=== PATIENT | female | born 1940 | race Caucasian/White ===

== ENCOUNTER 2020-12-08 11:53 | Observation (INO) ==
--- NOTE | 2020-12-08 12:29 | Emergency Department Note ---
Impression & Plan Dizziness, Weakness, FIGUEROA (dyspnea on exertion) ED Provider Note Provider: Rei Jimenes MD DATE OF SERVICE: 12/08/2020 CHIEF COMPLAINT: Dizzy/weak/short of breath HISTORY OF PRESENT ILLNESS: Patient is a 80-year-old female past medical history of atrial fibrillation on Xarelto and diverticulitis with colostomy presenting here today via ambulance from home reporting that over the past 2 to 3 days she has been experiencing some weakness and slight dizziness. Does not feel things are moving or having any pain. Reports she just feels a bit weak and sometimes feels like her vision is a bit blurry. 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 Denies any eye pain or headache. Denies chest pain does report she feels little bit short of breath at times mainly with exertion. Minimal in nature and able to get around her house. Denies significant leg swelling. Denies abdominal pain or nausea or issues with her ostomy. States he has been trying to hydrate well she thought this might be hydration related. States she did talk with her doctor almost a month ago about some sinus congestion was placed on Mucinex and Claritin. In discussion with her seems like inadvertently she was taking loratadine and Claritin twice a day (a prescription as well as the OTC formulation) the past several weeks. Denies sore throat. Denies fever. Denies new numbness or focal weakness. Denies any falls. States she has used her inhaler/nebulizers at home but they have not really changed her breathing issues which again are intermittent. REVIEW OF SYSTEMS: A total of 10 review of systems was obtained and negative except as stated above in the HPI. PAST MEDICAL HISTORY: As noted above MEDICATIONS: Reviewed home medications with the patient SOCIAL HISTORY: Smoker, lives at home PHYSICAL EXAM: GENERAL: alert and oriented in no acute distress on stretcher Head: normocephalic and atraumatic EYES: No injection, discharge or icterus. PERRL, EOMI. NECK: Trachea midline. Supple. ENT: Mucous membranes pink and moist. Pharynx without erythema or exudate. LUNGS: Airway patent. No retractions. Breath sounds clear with good air entry bilaterally. HEART: Regular rate and rhythm. No chest wall tenderness ABDOMEN: Soft and non-tender, without guarding or rebound with a left-sided ostomy. SKIN: Acyanotic, warm, dry, without rashes EXTREMITIES: Without swelling, tenderness or deformity NEUROLOGICAL: No focal deficits. No aphasia. No facial droop or slurred speech. Normal strength and tone in the extremities. Sensation to gross touch normal. Ambulatory here EK bpm first-degree AV block sinus rhythm occasional PVC. No acute ST segm ent elevation or depression noted. QTc 441. CONTINUOUS CARDIAC MONITORING: was ordered and showed a heart rate of 70s to 80s bpm in normal sinus rhythm Patient's laboratory studies and imaging reviewed. Differential includes Infection, dehydration, metabolic abnormality, hypo/hyperglycemia, electrolyte disturbance, anemia, hypoxia, cardiac sources, intracerebral event, toxicologic, neurologic, as well as other pathologies. IMPRESSION/MEDICAL DECISION MAKING: Patient presents with some nonspecific dizziness/weakness. She reports to me that her symptoms do not change with position such as standing or walking. Denies focal numbness or weakness or speech issues. Denies headache. Is on X arelto. Denies any trauma or falls. Denies chest pain reports a little bit of intermittent dyspnea on exertion. Denies leg swelling. Seems to intermittently been taking twice daily Claritin instead of daily Claritin. Unsure if this may contribute small amounts. Denies other infectious symptoms. Has the Covid vaccine per her report. Having no focal neurological deficits at this point. CT the head will be completed to exclude intracranial abnormality with her anticoagulation use. EKG was obtained showing some PVCs but no significant arrhythmia. Has a history of A. fib but no evidence of tachycardia while here. Basic blood work was obtained. No significant abnormalities noted here without an elevated troponin. No evidence of transaminitis or thyroid dysfunction. CT the head per radiology within normal limits and chest x-ray without acute pulmonary findings. Patient still feels a bit off. Urine sample is pending. Discussed with her in any event as she is feeling somewhat off and on anticoagulant possibility of further observation here given her fall risk. Again symptoms could be related to doubling up on the Claritin antihistamine recently but cannot be sure. In shared decision-making she felt more comfortable further observation to try to further delineate the cause as well as monitor for improvement of her symptoms. The hospitalist was contacted DIAGNOSIS: Dizzy, weakness, shortness of breath DISPOSITION: Hospitalist will evaluate Patient was agreeable with this plan. Past Med/Surg History Medical History (Updated 12/08/20 @ 17:51 by Brenda Moses PA-C) A-fib Chronic bronchitis CKD (chronic kidney disease), stage III Colostomy in place COPD (chronic obstructive pulmonary disease) Depression Diverticulitis HLD (hyperlipidemia) HTN (hypertension) Macular degeneration Multiple pulmonary nodules FRANCIS on CPAP Osteoporosis PAF (paroxysmal atrial fibrillation) PVD (peripheral vascular disease) Tobacco dependence due to cigarettes Surgical History (Updated 12/08/20 @ 17:40 by Brenda Moses PA-C) History of cataract extraction with lens replacement History of creation of ostomy History of resection of large bowel History of tonsillectomy History of tubal ligation Family History (Updated 12/08/20 @ 17:41 by Brenda Moses PA-C) Father Pancreatic cancer Mother Stroke Social History (Updated 12/08/20 @ 17:41 by Brenda Moses PA-C) Smoking Status: Light tobacco smoker Tobacco Type: Cigarettes Age Started Using Tobacco: 22; Years Smoked: 60; Cigarettes Per Day: 5; Second Hand Exposure: No; Hx Alcohol Use: No Hx Substance Use: No Preferred Language: Maori Communication Ability: Effective marital status: / Current Living Situation: Alone Feels Safe at Home: Yes Allergies Allergies Allergy/AdvReac Type Severity Reaction Status Date / Time cephalexin [From Keflex] Allergy Mild Verified 12/08/20 14:42 cilostazol [From Pletal] Allergy Mild Verified 12/08/20 14:42 ciprofloxacin [From Cipro] Allergy Mild Verified 12/08/20 14:42 felodipine Allergy Mild Verified 12/08/20 14:42 meloxicam Allergy Mild rash Verified 12/08/20 16:39 sulfamethoxazole Allergy Mild Verified 12/08/20 14:42 [From Bactrim] trimethoprim [From Bactrim] Allergy Mild Verified 12/08/20 14:42 amoxicillin Allergy Unknown Verified 12/08/20 16:39 diltiazem AdvReac Unknown Verified 12/08/20 16:39 Home Meds Home Medications Medication Instructions Recorded Confirmed calcium carbonate-vitamin D3 1 tab PO PM 03/10/19 12/08/20 [Calcium 500 + D] escitalopram oxalate [Lexapro] 10 mg PO QAM 03/10/19 12/08/20 ferrous sulfate 325 mg PO QAM 03/10/19 12/08/20 omega-3 fatty acids-fish oil [Fish 1 cap PO PM 03/10/19 12/08/20 Oil] rivaroxaban [Xarelto] 20 mg PO HS 03/10/19 12/08/20 verapamil 240 mg PO QAM 03/10/19 12/08/20 vit C,Y-Gu-vcetx-lutein-zeaxan 1 tab PO QAM 03/10/19 12/08/20 [PreserVision AREDS-2] propylene glycol 0.6 % eye drops 1 drops OP PM PRN 07/23/19 12/08/20 multivitamin 1 tab PO QAM 07/16/20 12/08/20 ascorbic acid (vitamin C) [Vitamin 500 mg PO DAILY 12/08/20 12/08/20 C] cyclosporine [Restasis] 1 drp OPB BID 12/08/20 12/08/20 flecainide 50 mg PO BID 12/08/20 12/08/20 fluticasone propionate 2 spray INTRANASAL QAM 12/08/20 12/08/20 ipratropium-albuterol [DuoNeb] 3 ml INHALATION Q4H PRN 12/08/20 12/08/20 lisinopril 20 mg PO QAM 12/08/20 12/08/20 loratadine 10 mg PO QAM 12/08/20 12/08/20 umeclidinium-vilanterol [Anoro 1 inh INH QAM 12/08/20 12/08/20 Ellipta] Previous Rx's Medication Instructions Recorded albuterol sulfate 90 mcg/actuation 1 inh INH QID #18 g 07/16/20 aerosol inhaler guaifenesin 600 mg tablet, 600 mg PO BID #60 tab 07/16/20 extended release 12 hr Results & Data (ED) Vital Signs Vital Signs - 24 hr 12/08/20 12:12 12/08/20 12:28 12/08/20 15:17 Temperature 37.5 C Temperature Source Oral Pulse Rate 78 Pulse Rate [Left Finger] 68 Pulse Rhythm Irregular Pulse Rhythm [Left Finger] Regular Pulse Strength Normal Pulse Strength [Left Finger] Normal Respiratory Rate 16 16 Respiratory Effort / Characteristics Non-Labored Spontaneous Non-Labored Spontaneous Respiratory Depth Normal Normal Respiratory Pattern Regular Regular Blood Pressure 186/76 H Blood Pressure [Right Arm] 142/68 H Blood Pressure Mean 112 Blood Pressure Mean [Right Arm] 92 Blood Pressure Position Lying Blood Pressure Position [Right Arm] Lying Pulse Oximetry 94 94 93 Oxygen Delivery Method Room Air Nasal Cannula Room Air Sepsis Recent Fever Within 48 Hours No Sepsis New/Unexplained Change in Mental Status N/A Sepsis Action Taken by Nursing No Action Required Laboratory Data Result diagrams: 12/08/20 12:23 12/08/20 12:23 Lab Results 12/08/20 12/08/20 12/08/20 Range/Units 12:23 12:23 15:15 WBC 9.26 (4.8-10.8) K/uL RBC 4.45 (4.2-5.4) M/uL Hgb 14.8 (12.0-16.0) g/dL Hct 44.3 (37-47) % MCV 99.6 (80-100) fL MCH 33.3 (25-34) pg MCHC 33.4 (32-36) g/dL RDW Std Deviation 50.5 H (36.4-46.3) fL RDW Coeff of [place] 13.8 (11.5-14.5) % Plt Count 269 (130-400) K/uL MPV 9.4 (7.4-10.4) fL Immature Gran % (Auto) 0.8 % Neut % (Auto) 60.7 % Lymph % (Auto) 24.6 % [place] % (Auto) 7.8 % Eos % (Auto) 5.7 % Baso % (Auto) 0.4 % Neut # (Auto) 5.62 (1.4-6.5) K/uL Lymph # (Auto) 2.28 (1.2-3.4) K/uL [place] # (Auto) 0.72 H (0.11-0.59) K/uL Eos # (Auto) 0.53 H (0-0.5) K/uL Baso # (Auto) 0.04 (0-0.2) K/uL Immature Gran # (Auto) 0.07 H (0.00-0.02) K/uL Sodium 140 (136-145) mmol/L Potassium 4.3 (3.5-5.1) mmol/L Chloride 108 H (98-107) mmol/L Carbon Dioxide 25 (21-32) mmol/L Anion Gap 7.0 (3-11) BUN 15 (7-18) mg/dl Creatinine 1.28 H (0.6-1.2) mg/dl Est Cr Clr Drug Dosing 29.7 ml/min Est GFR ( Amer) 46.4 ml/min Est GFR (Non-Af Amer) 40.0 ml/min BUN/Creatinine Ratio 11.7 (10-20) Glucose 101 H (70-99) mg/dl Calcium 8.5 (8.5-10.1) mg/dl Magnesium 2.3 (1.8-2.4) mg/dl Total Bilirubin 0.5 (0.2-1) mg/dl AST 14 L (15-37) U/L ALT 20 (12-78) U/L Alkaline Phosphatase 69 (45-117) U/L Troponin I < 0.015 (0-0.045) ng/ml Total Protein 7.6 (6.4-8.2) gm/dl Albumin 3.5 (3.4-5.0) gm/dl Globulin 4.1 H (2.5-4.0) gm/dl Albumin/Globulin Ratio 0.8 L (0.9-2) TSH 2.120 (0.300-4.500) uIu/ml Urine Color Yellow Urine Appearance Clear (Clear) Urine pH 8.0 H (4.5-7.5) Ur Specific [place] 1.008 (1.000-1.030) Urine Protein Negative (Negative) Urine Glucose (UA) Negative (Negative) Urine Ketones Negative (Negative) Urine Blood Negative (Negative) Urine Nitrite Negative (Negative) Urine Bilirubin Negative (Negative) Urine Urobilinogen Negative (Negative) Ur Leukocyte Esterase Trace H (Negative) Urine WBC (Auto) 1-5 (0-5) /hpf Urine RBC (Auto) 0-4 (0-4) /hpf U Hyaline Cast (Auto) 0 (0-5) /lpf U Epithel Cells (Auto) 5-10 H (0-5) /lpf Urine Bacteria (Auto) Negative (Negative) COVID-19 Eval Order SARS-CoV-2 (PCR) (Negative) 12/08/20 12/08/20 Range/Units 15:15 15:15 WBC (4.8-10.8) K/uL RBC (4.2-5.4) M/uL Hgb (12.0-16.0) g/dL Hct (37-47) % MCV (80-100) fL MCH (25-34) pg MCHC (32-36) g/dL RDW Std Deviation (36.4-46.3) fL RDW Coeff of [place] (11.5-14.5) % Plt Count (130-400) K/uL MPV (7.4-10.4) fL Immature Gran % (Auto) % Neut % (Auto) % Lymph % (Auto) % [place] % (Auto) % Eos % (Auto) % Baso % (Auto) % Neut # (Auto) (1.4-6.5) K/uL Lymph # (Auto) (1.2-3.4) K/uL [place] # (Auto) (0.11-0.59) K/uL Eos # (Auto) (0-0.5) K/uL Baso # (Auto) (0-0.2) K/uL Immature Gran # (Auto) (0.00-0.02) K/uL Sodium (136-145) mmol/L Potassium (3.5-5.1) mmol/L Chloride (98-107) mmol/L Carbon Dioxide (21-32) mmol/L Anion Gap (3-11) BUN (7-18) mg/dl Creatinine (0.6-1.2) mg/dl Est Cr Clr Drug Dosing ml/min Est GFR ( Amer) ml/min Est GFR (Non-Af Amer) ml/min BUN/Creatinine Ratio (10-20) Glucose (70-99) mg/dl Calcium (8.5-10.1) mg/dl Magnesium (1.8-2.4) mg/dl Total Bilirubin (0.2-1) mg/dl AST (15-37) U/L ALT (12-78) U/L Alkaline Phosphatase (45-117) U/L Troponin I (0-0.045) ng/ml Total Protein (6.4-8.2) gm/dl Albumin (3.4-5.0) gm/dl Globulin (2.5-4.0) gm/dl Albumin/Globulin Ratio (0.9-2) TSH (0.300-4.500) uIu/ml Urine Color Urine Appearance (Clear) Urine pH (4.5-7.5) Ur Specific [place] (1.000-1.030) Urine Protein (Negative) Urine Glucose (UA) (Negative) Urine Ketones (Negative) Urine Blood (Negative) Urine Nitrite (Negative) Urine Bilirubin (Negative) Urine Urobilinogen (Negative) Ur Leukocyte Esterase (Negative) Urine WBC (Auto) (0-5) /hpf Urine RBC (Auto) (0-4) /hpf U Hyaline Cast (Auto) (0-5) /lpf U Epithel Cells (Auto) (0-5) /lpf Urine Bacteria (Auto) (Negative) COVID-19 Eval Order Covid19 at [facility] SARS-CoV-2 (PCR) NEGATIVE (Negative) Administered Medications Sodium Chloride (Nss 1000ml) 1,000 mls @ 80 mls/hr IV .[id number] [facility] Stop: 12/09/20 07:14 Last Admin: 12/08/20 19:33 Dose: 80 mls/hr Documented by: [id number] Discontinued Medications Sodium Chloride (Nss 1000ml) 1,000 mls @ 999 mls/hr IV .[id number] [place] Stop: 12/08/20 13:30 Last Admin: 12/08/20 18:57 Dose: Not Given Documented by: [id number] Imaging Data Radiologist's Impression: Chest X-Ray 12/08/20 12:22 XR chest 1V portable CLINICAL HISTORY: weakness COMPARISON STUDY: Chest CT March 30, 2020. FINDINGS: Lung volumes are normal. Minimal left basilar opacity favors epicardial fat pad or atelectasis. There is no pneumothorax or pleural effusion. Cardiac size is normal. Mediastinal contours are normal. There is no evidence for pulmonary edema. IMPRESSION: No acute cardiopulmonary findings. No change in appearance of the chest. ACT 112: Negative or not required by law. Electronically signed by: Oh Townsend M.D. 12/08/2020 1:[address] 12/08/20 12:22 CT head/brain wo con CLINICAL HISTORY: 80 years-old Female with weak , dizzy. Acute weakness with dizziness TECHNIQUE: Multiple axial CT images of the head were obtained without contrast. A dose lowering technique was utilized adhering to the principles of ALARA. CT DOSE: 902.17 mGy.cm COMPARISON: None. FINDINGS: Mildly motion degraded exam. Age-related involutional changes. White matter hypodensities suggestive of chronic microvascular ischemic disease. 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 Cerebral vascular calcifications. No acute intracranial hemorrhage, midline shift, intracranial mass, hydrocephalus, territorial ischemia or abnormal extra-axial collection. The calvarium is intact. Prior bilateral lens repair. The paranasal sinuses, mastoid air cells, and middle ear cavities are clear. IMPRESSION: No acute intracranial abnormality. ACT 112: Negative or not required by law. The above report was generated using voice recognition software. It may contain grammatical, syntax or spelling errors. Electronically signed by: Stephen Rapp M.D. 12/08/2020 1:06 PM Discharge Plan Visit Data Chief Complaint: Dizziness Stated Complaint: LIGHTHEADED, WEAK ED Provider: Rei Jimenes Discharge Problem: Dizziness, Weakness, FIGUEROA (dyspnea on exertion) Patient Disposition: Still a Patient Discharge Instructions Interventions: ED Discharge Assessment Last Done: 12/08/20 17:57
[2020-12-08] MEDS ORDERED: SODIUM CHLORIDE 0.9% 1000ML 1,000 ML IV SCH ×2 (12:30→18:45)
[2020-12-08 12:35] LABS: Basophils # (auto) 0.04 K/uL (0-0.2); Basophils % (auto) 0.4 %; Eosinophils # (auto) 0.53 K/uL (0-0.5); Eosinophils % (auto) 5.7 %; Hematocrit (blood only) 44.3 % (37-47); Hemoglobin 14.8 g/dL (12.0-16.0); Immature Granulocytes # (auto) 0.07 K/uL (0.00-0.02); Immature Granulocytes % (auto) 0.8 %; Lymphocytes # (auto) 2.28 K/uL (1.2-3.4); Lymphocytes % (auto) 24.6 %; Mean Corpuscular Hemoglobin 33.3 pg (25-34); Mean Corpuscular Hgb Conc 33.4 g/dL (32-36); Mean Corpuscular Volume 99.6 fL (80-100); Mean Platelet Volume 9.4 fL (7.4-10.4); Monocytes # (auto) 0.72 K/uL (0.11-0.59); Monocytes % (auto) 7.8 %; Neutrophils # (auto) 5.62 K/uL (1.4-6.5); Neutrophils % (auto) 60.7 %; Platelet Count 269 K/uL (130-400); RDW Coefficient of Variation 13.8 % (11.5-14.5); RDW Standard Deviation 50.5 fL (36.4-46.3); Red Blood Count 4.45 M/uL (4.2-5.4); White Blood Count 9.26 K/uL (4.8-10.8)
--- NOTE | 2020-12-08 13:07 | CT Scan Report ---
CT head/brain wo con CLINICAL HISTORY: 80 years-old Female with weak , dizzy. Acute weakness with dizziness TECHNIQUE: Multiple axial CT images of the head were obtained without contrast. A dose lowering tech nique was utilized adhering to the principles of ALARA. CT DOSE: 902.17 mGy.cm COMPARISON: None. FINDINGS: Mildly motion degraded exam. Age-related involutional changes. White matter hypodensities suggestive of chronic microvascular ischemic disease. 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 Ce rebral vascular calcifications. No acute intracranial hemorrhage, midline shift, intracranial mass, h ydrocephalus, territorial ischemia or abnormal extra-axial collection. The calvarium is intact. Prior bilateral lens repair. The paranasal sinuses, mastoid air cells, and m iddle ear cavities are clear. IMPRESSION: No acute intracranial abnormality. ACT 112: Negative or not required by law. The above report was generated using voice recognition software. It may contain grammatical, syntax o r spelling errors. Electronically signed by: Stephen Rapp M.D. 12/08/2020 1:06 PM
[2020-12-08 13:10] LABS: Alanine Aminotransferase 20 U/L (12-78); Albumin Level 3.5 gm/dl (3.4-5.0); Aspartate Aminotransferase 14 U/L (15-37); BUN Creatinine Ratio 11.7 (10-20); Blood Urea Nitrogen 15 mg/dl (7-18); Calcium 8.5 mg/dl (8.5-10.1); Carbon Dioxide 25 mmol/L (21-32); Chloride 108 mmol/L (98-107); Creatinine Clr Calc Pharmacy 29.7 ml/min; Est GFR (African American) 46.4 ml/min; Glucose 101 mg/dl (70-99); Magnesium 2.3 mg/dl (1.8-2.4); Potassium 4.3 mmol/L (3.5-5.1); Sodium 140 mmol/L (136-145)
[2020-12-08 13:20] LABS: Albumin Globulin Ratio 0.8 (0.9-2); Alkaline Phosphatase 69 U/L (45-117); Bilirubin,Total 0.5 mg/dl (0.2-1); Globulin 4.1 gm/dl (2.5-4.0); Total Protein 7.6 gm/dl (6.4-8.2); Troponin I < 0.015 ng/ml (0-0.045)
--- NOTE | 2020-12-08 13:23 | XRay Report ---
XR chest 1V portable CLINICAL HISTORY: weakness COMPARISON STUDY: Chest CT March 30, 2020. FINDINGS: Lung volumes are normal. Minimal left basilar opacity favors epicardial fat pad or atelecta sis. There is no pneumothorax or pleural effusion. Cardiac size is normal. Mediastinal contours are n ormal. There is no evidence for pulmonary edema. IMPRESSION: No acute cardiopulmonary findings. No change in appearance of the chest. ACT 112: Negative or not required by law. Electronically signed by: Oh Townsend M.D. 12/08/2020 1:22 PM
[2020-12-08 15:43] LABS: Appearance Urine Clear (Clear); Bacteria Urine Automated Negative (Negative); Bilirubin Urine Negative (Negative); Blood Urine Negative (Negative); Cast Urine Automated 0 /lpf (0-5); Color Urine Yellow; Glucose Urine UA Negative (Negative); Ketones Urine Negative (Negative); Leukocyte Esterase Urine Trace (Negative); Nitrite Urine Negative (Negative); Protein Urine Negative (Negative); RBC Urine Automated 0-4 /hpf (0-4); Specific Gravity Urine 1.008 (1.000-1.030); Urobilinogen Urine Negative (Negative)
--- NOTE | 2020-12-08 16:48 | History & Physical Report ---
Date of Service December 08, 2020 Assessment & Plan (1) Vestibular neuritis: (2) Dizziness: This is a 80-year-old female who has significant past medical history of PAF anticoagulated on Xarelto, COPD, HTN, HLD, FRANCIS on CPAP, CKD stage IIIb, macular degeneration, tobacco abuse, depression, history of large bowel resection status post colostomy who presents to ED secondary to feeling lightheaded x3 days. Pt sx consistent with BPPV. Sx worse with quick head movement or position change. No inner ear pathology on exam, no recent illness, no hearing change or tinnitus. Sx ongoing for few weeks but worse last 2-[address] head no acute abn, chronic microvascular changes. Admit to [employer] monitor on telemetry orthostatic vitals IVF 80cc/hr x 1 L meclizine prn consult PT/OT / to BPPV fall precautions (3) PAF (paroxysmal atrial fibrillation): rate controlled continue xarelto for thrombotic control based on creatinine clearance will renally dose xarelto to 15mg daily per EPIC pt is ordered 15mg daily; however pt bottle from pharmacy confirms she is still taking 20mg daily will likely need new script at discharge given ckd stage 3 (4) FRANCIS on CPAP: CPAP at HS (5) HTN (hypertension): blood pressure elevated 167/76 on lisinopril and verapamil continue, monitor bp may be situational in ED follow on floor (6) COPD (chronic obstructive pulmonary disease): no acute exac pt does have chronic FIGUEROA and sputum production at baseline continue anoro, nebs flutter valve (7) Tobacco dependence due to cigarettes: nicotine patch encourage smoking cessation (8) DVT prophylaxis: xarelto Dispo: [employer] tele PCP: Sergio Cai FULL CODE Pt was seen and examined in collaboration with Dr. Menendez, please see addendum History of Present Illness Chief Complaint: lightheadedness x 3 days. Primary Care Provider: Tameka Cai MD This is a 80-year-old female who has significant past medical history of PAF anticoagulated on Xarelto, COPD, HTN, HLD, FRANCIS on CPAP, CKD stage IIIb, macular degeneration, tobacco abuse, depression, history of large bowel resection status post colostomy who presents to ED secondary to feeling lightheaded x3 days. She states this has been going on for approximately 2 to 3 weeks and she would have, "off and on days." She states, "I am having too many on days and that is why came today." She describes lightheadedness as feeling, off balance, "like I am swimming," and motion sickness. Symptoms are worse with quick head movements or going from seated to standing position. She has had similar symptoms in the past but this has been exacerbated over the past 2 to 3 days. She does have prior history of vertigo and this feels similar. She denies feeling presyncopal or syncope. She further denies any fall. She denies any recent illness, fever, chills, sweats, chest pain, shortness breath at rest, nausea, vomiting, abdomina l pain. She does have a colostomy in place and stool output is at baseline. She denies any dysuria, increased urgency or frequency with urination. She does have chronic dyspnea exertion secondary to COPD and she continues to smoke tobacco. She feels this is unchanged. She also has a chronic cough that is moist, productive and clear. She does occasionally get wheezing for which she uses DuoNeb inhalers for. She is only requiring this once nightly. She does not feel her cough is more productive than usual. Overall she feels her appetite has been good. She has been trying to push liquids, but her children tell her she does not drink enough. She states she drinks approximately 3-12 ounce cups of water a day. In ED patient remained hemodynamically stable. Her CBC and CMP relatively unremarkable except for creatinine 1.28. Her TSH was WNL. Her troponin was WNL. Urinalysis was negative for infection. Head CT was negative for acute abnormality but did reveal chronic microvascular ischemic change as well as old lacunar in the left lentiform nucleus. She denies any limb weakness, dysarthria, dysphagia or facial droop. In ED she received IV fluids. Allergies Allergy/AdvReac Type Severity Reaction Status Date / Time cephalexin [From Keflex] Allergy Mild Verified 12/08/20 14:42 cilostazol [From Pletal] Allergy Mild Verified 12/08/20 14:42 ciprofloxacin [From Cipro] Allergy Mild Verified 12/08/20 14:42 felodipine Allergy Mild Verified 12/08/20 14:42 meloxicam Allergy Mild rash Verified 12/08/20 16:39 sulfamethoxazole Allergy Mild Verified 12/08/20 14:42 [From Bactrim] trimethoprim [From Bactrim] Allergy Mild Verified 12/08/20 14:42 amoxicillin Allergy Unknown Verified 12/08/20 16:39 diltiazem AdvReac Unknown Verified 12/08/20 16:39 Home Medications Medication Instructions Recorded Confirmed Type calcium carbonate-vitamin D3 1 tab PO PM 03/10/19 12/08/20 History [Calcium 500 + D] escitalopram oxalate [Lexapro] 10 mg PO QAM 03/10/19 12/08/20 History ferrous sulfate 325 mg PO QAM 03/10/19 12/08/20 History omega-3 fatty acids-fish oil [Fish 1 cap PO PM 03/10/19 12/08/20 History Oil] rivaroxaban [Xarelto] 20 mg PO HS 03/10/19 12/08/20 History verapamil 240 mg PO QAM 03/10/19 12/08/20 History vit C,S-Df-tnifg-lutein-zeaxan 1 tab PO QAM 03/10/19 12/08/20 History [PreserVision AREDS-2] propylene glycol 0.6 % eye drops 1 drops OP PM PRN 07/23/19 12/08/20 History albuterol sulfate 90 mcg/actuation 1 inh INH QID #18 g 07/16/20 12/08/20 Rx aerosol inhaler guaifenesin 600 mg tablet, 600 mg PO BID #60 tab 07/16/20 12/08/20 Rx extended release 12 hr multivitamin 1 tab PO QAM 07/16/20 12/08/20 History ascorbic acid (vitamin C) [Vitamin 500 mg PO DAILY 12/08/20 12/08/20 History C] cyclosporine [Restasis] 1 drp OPB BID 12/08/20 12/08/20 History flecainide 50 mg PO BID 12/08/20 12/08/20 History fluticasone propionate 2 spray INTRANASAL QAM 12/08/20 12/08/20 History ipratropium-albuterol [DuoNeb] 3 ml INHALATION Q4H PRN 12/08/20 12/08/20 History lisinopril 20 mg PO QAM 12/08/20 12/08/20 History loratadine 10 mg PO QAM 12/08/20 12/08/20 History umeclidinium-vilanterol [Anoro 1 inh INH QAM 12/08/20 12/08/20 History Ellipta] Past Med/Surg History Medical History (Updated 12/08/20 @ 23:16 by Delmy Menendez DO) A-fib Chronic bronchitis CKD (chronic kidney disease), stage III Colostomy in place COPD (chronic obstructive pulmonary disease) Depression Diverticulitis HLD (hyperlipidemia) HTN (hypertension) Macular degeneration Multiple pulmonary nodules FRANCIS on CPAP Osteoporosis PAF (paroxysmal atrial fibrillation) PVD (peripheral vascular disease) Tobacco dependence due to cigarettes Surgical History (Updated 12/08/20 @ 17:40 by Brenda Moses PA-C) History of cataract extraction with lens replacement History of creation of ostomy History of resection of large bowel History of tonsillectomy History of tubal ligation Family History (Updated 12/08/20 @ 17:41 by Brenda Moses PA-C) Father Pancreatic cancer Mother Stroke Social History (Updated 12/08/20 @ 17:41 by Brenda Moses PA-C) Smoking Status: Current every day smoker Tobacco Type: Cigarettes Age Started Using Tobacco: 22; Years Smoked: 60; Cigarettes Per Day: 6; Second Hand Exposure: No; Do You Dip or Chew Tobacco: No; Tobacco Cessation Education Requested by Patient: No Hx Alcohol Use: No Hx Substance Use: No Preferred Language: Rw[place]an Communication Ability: Effective Beliefs That Will Affect Care: None marital status: / Current Living Situation: Alone Feels Safe at Home: Yes Assistive Devices: Glasses Review of Systems Review of Systems: All systems reviewed & are unremarkable except as noted in HPI & below Physical Exam Physical Exam: Constitutional: WD/WN, female, sitting in bedside chair, vitals as above, NAD, sitting up in bed, pleasant, conversing easily Head: Normocephalic, Atraumatic Eyes: PERRL, conjunctivae normal, anicteric sclerae ENMT: external ear and nose normal, EAC clean dry, TM anatomically normal, oropharynx normal Neck: trachea midline, no thyromegaly normal visual inspection Respiratory: normal respiratory effort, lungs clear to auscultation, + rhonchi b/l and prolonged exp phase with wheeze which cleared with coughing, no rales. Normal insp/exp effort, no accessory muscle use Cardiovascular: RRR, +ectopy, no murmur, no edema Vessels: no JVD or carotid bruit Chest: normal inspection of chest Abdomen: normal bowel sounds, soft, nontender, no hepatosplenomegaly +LLQ Colostomy in place Musculoskeletal: no cyanosis or clubbing, extremities motor strength 5/5 Skin: no rashes, warm and dry normal turgor Neurologic: PERRL, EOMI, accommodation nl, no face palsy, no dysarthria CN's II-XI intact bilaterally and moves all extremities Psychiatric: A+Ox3, euthymic affect Lymphatic: no cervical or axillary lymphadenopathy : deferred Results & Data Results & Data ([facility]) Vital Signs (Past 12 Hours) Vital Signs Temp Pulse Pulse Resp BP BP Pulse Ox 12/08/20 15:17 68 16 142/68 H 93 12/08/20 12:28 94 12/08/20 12:12 37.5 C 78 16 186/76 H 94 Diagnostic Findings Chest X-Ray 12/08/20 12:22 XR chest 1V portable CLINICAL HISTORY: weakness COMPARISON STUDY: Chest CT March 30, 2020. FINDINGS: Lung volumes are normal. Minimal left basilar opacity favors epicardial fat pad or atelectasis. There is no pneumothorax or pleural effusion. Cardiac size is normal. Mediastinal contours are normal. There is no evidence for pulmonary edema. IMPRESSION: No acute cardiopulmonary findings. No change in appearance of the chest. ACT 112: Negative or not required by law. Electronically signed by: Oh Townsend M.D. 12/08/2020 1:[address] 12/08/20 12:22 CT head/brain wo con CLINICAL HISTORY: 80 years-old Female with weak , dizzy. Acute weakness with dizziness TECHNIQUE: Multiple axial CT images of the head were obtained without contrast. A dose lowering technique was utilized adhering to the principles of ALARA. CT DOSE: 902.17 mGy.cm COMPARISON: None. FINDINGS: Mildly motion degraded exam. Age-related involutional changes. White matter hypodensities suggestive of chronic microvascular ischemic disease. 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 Cerebral vascular calcifications. No acute intracranial hemorrhage, midline shift, intracranial mass, hydrocephalus, territorial ischemia or abnormal extra-axial collection. The calvarium is intact. Prior bilateral lens repair. The paranasal sinuses, mastoid air cells, and middle ear cavities are clear. IMPRESSION: No acute intracranial abnormality. ACT 112: Negative or not required by law. The above report was generated using voice recognition software. It may contain grammatical, syntax or spelling errors. Electronically signed by: Stephen Rapp M.D. 12/08/2020 1:06 PM ECG Rate (beats per minute): 77 Rhythm: normal sinus Findings: + 1st degree AV block and + PVC Change: no significant change COVID-19 Results Results COVID-19 Adm Lab Results: RBC 4.45 M/uL (4.2-5.4) 12/08/20 WBC 9.26 K/uL (4.8-10.8) 12/08/20 Hgb 14.8 g/dL (12.0-16.0) 12/08/20 Hct 44.3 % (37-47) 12/08/20 Plt Count 269 K/uL (130-400) 12/08/20 Neutrophils (%) (Auto) 60.7 % 12/08/20 Lymphocytes (%) (Auto) 24.6 % 12/08/20 Monocytes # (Auto) 0.72 K/uL (0.11-0.59) H 12/08/20 Eosinophils # (Auto) 0.53 K/uL (0-0.5) H 12/08/20 Immature Granulocyte % (Auto) 0.8 % 12/08/20 Neutrophils # (Auto) 5.62 K/uL (1.4-6.5) 12/08/20 Lymphocytes # (Auto) 2.28 K/uL (1.2-3.4) 12/08/20 Monocytes # (Auto) 0.72 K/uL (0.11-0.59) H 12/08/20 Eosinophils # (Auto) 0.53 K/uL (0-0.5) H 12/08/20 Basophils # (Auto) 0.04 K/uL (0-0.2) 12/08/20 Immature Granulocyte # (Auto) 0.07 K/uL (0.00-0.02) H 12/08/20 Na 140 mmol/L (136-145) 12/08/20 K 4.3 mmol/L (3.5-5.1) 12/08/20 Cl 108 mmol/L (98-107) H 12/08/20 CO2 25 mmol/L (21-32) 12/08/20 Anion Gap 7.0 (3-11) 12/08/20 BUN 15 mg/dl (7-18) 12/08/20 Creatinine 1.28 mg/dl (0.6-1.2) H 12/08/20 BUN/Creatinine Ratio 11.7 (10-20) 12/08/20 Glucose Level 101 mg/dl (70-99) H 12/08/20 Ca 8.5 mg/dl (8.5-10.1) 12/08/20 Total Bilirubin 0.5 mg/dl (0.2-1) 12/08/20 AST/SGOT 14 U/L (15-37) L 12/08/20 ALT/SGPT 20 U/L (12-78) 12/08/20 Alkaline Phosphatase 69 U/L (45-117) 12/08/20 Total Protein 7.6 gm/dl (6.4-8.2) 12/08/20 Albumin 3.5 gm/dl (3.4-5.0) 12/08/20 Globulin 4.1 gm/dl (2.5-4.0) H 12/08/20 Albumin/Globulin Ratio 0.8 (0.9-2) L 12/08/20 Troponin I < 0.015 ng/ml (0-0.045) 12/08/20 COVID-19 PCR NEGATIVE (Negative) 12/08/20 Chest X-Ray 12/08/20 Code Status & VTE Plan Code Status Full Code VTE Prophylaxis Plan VTE Prophylaxis will be ordered: No Supervising Physician Co-Signing Physician Notes I have seen and examined the patient and have discussed the case with the provider above. I agree with the assessment and plan as stated with the following exceptions. She is a 80 yo smoker who presents with worsened vertigo symptoms for the past 3 weeks. Prior to that she had an URI/sinus infection of some kind and was treated by her PCP wt azithromycin and claritin. She continues to take Claritin BID, which is a new medication. She also takes flonase. She denies any hearing loss and has no stroke like symptoms or headaches at this time. She has a reported h/o BPPV. She also denies any SOB, productive sputum, wheezing, or worsening of her chronic cough. Physical exam reveals an oriented female who is cooperative with no gross focal neurologic deficit. EOMI, PERRL, OP is clear and mucous membranes are moist. Tympanic membranes are pearly and there are no middle ear effusions or auditory canal issues bilaterally. She has no sinus TTP and no submandibular or cervical LAD. Cardiopulmonary exam is WNL. Patient became dizzy with sitting up in bed. No nystagmus was observed. CT head was negative. She currently has no evidence of acute infection. Clinically this appears consistent with a vestibular neuritis picture and a trial of prednisone may be helpful. Neurology was consulted to weigh in on the need for MRI and other causes of her vertigo. Orthostatics checeked and pending. Cont IVF overnight and stay hydrated. PT/OT prior to leaving to ensure she is safe to return home. DO Shon
[2020-12-08] MEDS ORDERED: ALUMINUM/MAGNESIUM SUSP 30 ML UDC PO PRN (18:45)
[2020-12-08] MEDS ORDERED: ALBUT/IPRATROP 3MG/0.5MG NEB 3 ML VIAL INH PRN (18:45)
[2020-12-08] MEDS ORDERED: ONDANSETRON INJ 2 MG/ML 2 ML VIAL IV PRN (18:45)
[2020-12-08] MEDS ORDERED: MAGNESIUM HYDROXIDE SUSP 30 ML UDC PO PRN (18:45)
[2020-12-08] MEDS ORDERED: ACETAMINOPHEN 325 MG TAB PO PRN (18:45)
[2020-12-08] MEDS ORDERED: POLYETHYLENE (MIRALAX) 17 GM PACK PO PRN (18:45)
[2020-12-08] MEDS ORDERED: ARTIFICIAL TEARS OP PRN (19:33)
[2020-12-08] MEDS ORDERED: RIVAROXABAN 15 MG TAB PO ONE (20:30)
[2020-12-08] MEDS: ALBUTEROL HFA 8 GM INHALER INH SCH (20:57)
[2020-12-08] MEDS: CALCIUM 600MG + VIT D 400 IU TAB PO SCH (20:58)
[2020-12-08] MEDS: OMEGA-3 (PURIFIED FISH OIL) 1 GM CAP PO SCH (20:58)
[2020-12-08] MEDS: guaiFENesin 600 MG TABCR PO SCH (20:59)
[2020-12-08] MEDS: FLECAINIDE ACETATE 100 MG TABLET PO SCH (20:59)
[2020-12-08] MEDS: RESTASIS - ORDER AWAITING ACTION SCH (23:17)
--- NOTE | 2020-12-09 06:24 | Electrocardiogram Report ---
Test Reason : Blood Pressure : / mmHG Vent. Rate : 077 BPM Atrial Rate : 077 BPM P-R Int : 252 ms QRS Dur : 076 ms QT Int : 390 ms P-R-T Axes : 083 -25 070 degrees QTc Int : 441 ms Sinus rhythm with 1st degree A-V block with frequent Premature ventricular complexes Possible Inferior infarct No previous ECGs available Confirmed by Kristian Pierce ([id number]) on 12/09/2020 6:24:35 AM Referred By: REFERRED SELF Confirmed By:Kristian Pierce
[2020-12-09] MEDS: FERROUS SULFATE 325 MG TAB PO SCH (07:41)
[2020-12-09] MEDS: ASCORBIC ACID 500 MG TAB PO SCH (07:41)
[2020-12-09] MEDS: ESCITALOPRAM OXALATE 10 MG TAB PO SCH (07:41)
[2020-12-09] MEDS: FLECAINIDE ACETATE 100 MG TABLET PO SCH ×2 (07:41→21:09)
[2020-12-09] MEDS: FLUTICASONE PROPIONATE NA SPR 16 GM BTL NAE SCH (07:42)
[2020-12-09] MEDS: guaiFENesin 600 MG TABCR PO SCH ×2 (07:42→21:07)
[2020-12-09] MEDS: LORATADINE 10 MG TAB PO SCH (07:42)
[2020-12-09] MEDS: CEROVITE ADV FORMULA TAB PO SCH (07:42)
[2020-12-09] MEDS: lisinopril 20 MG TAB PO SCH (07:42)
[2020-12-09] MEDS: UMECLIDINIUM/VILANTEROL 62.5/25MCG 7 PUFFS/INHALER INH SCH (07:43)
[2020-12-09] MEDS: VERAPAMIL HCL 240 MG TABCR PO SCH (07:43)
[2020-12-09] MEDS: NICOTINE 21 MG/24 HR TDSY TD SCH (07:44)
[2020-12-09] MEDS: MECLIZINE HCL 25 MG TAB PO PRN ×2 (07:44→12:12)
[2020-12-09] MEDS: ALBUTEROL HFA 8 GM INHALER INH SCH ×4 (07:49→20:04)
[2020-12-09] MEDS: RESTASIS - ORDER AWAITING ACTION SCH ×2 (08:01→16:40)
[2020-12-09] MEDS: predniSONE 10 MG TABLET PO SCH (08:47)
[2020-12-09] MEDS ORDERED: predniSONE 20 MG TAB PO SCH (09:00)
[2020-12-09] MEDS ORDERED: MULTIVITAMIN TAB PO SCH (09:00)
[2020-12-09] MEDS ORDERED: MECLIZINE HCL 25 MG TAB PO PRN (11:56)
--- NOTE | 2020-12-09 13:54 | Neurology Consultation ---
Date of Consultation December 09, 2020 Assessment & Plan (1) PAF (paroxysmal atrial fibrillation): 1. continue Eliquis 20 mg HS 2. smoking cessation strongly recommended 3. optimize HTN, HLD, LDL <70 Present on Admission?: Yes (2) Dizziness: 1. PT for Mckenzie maneuver may need PT as outpatient if not resolved 2. MRI brain- without contrast r/o stroke- no contract due to kidney function 3. if no stroke no follow up with neurology needed. Present on Admission?: Yes Supervising Physician Co-Signing Physician Notes I have seen and discussed above patient with Dr Juan Daniel Castro, neurology I have interviewed and examined Mrs. Beaulieu at this point have difficulty establishing whether or not this is partial benign positional vertigo, more of a chronic vertigo or to some degree nonvertigo but more of a disequilibrium as a syndrome has emerged over the past 3 weeks and has changed in quality and the history is a little difficult to interpret While her exam is completely normal in terms of revealing no cranial neuropathies nystagmus significant ataxia or indeed any gait disturbance of significance she does have some vascular risk factors to say the least and may have had a small embolic shower could have even involve the right hemisphere with vague symptomatology at the onset of all of this She really has not responded that much to Mckenzie maneuver like she did years ago when her symptoms were more typical At this point I think we are going to recommend an MRI without contrast in light of her mild renal failure and if there is no evidence for recent embolic infarctions and I think the question of whether this was a vascular event can be answered in the negative and we can go ahead with more vestibular therapy perhaps [id number] low-dose meclizine and perhaps an ear nose and throat assessment on outpatient basis If there is evidence for multiple emboli then we will have to wrestle with either changing to another NOAC, trying Coumadin, or adding aspirin to the medics and cardiology will have to get involved We will review the results of the scan and if negative will really sign off the case Unfortunately outpatient ear nose and throat evaluations for this type of syndrome are often not done locally and she would have to go to the balance center in [place] which is something she really does not want to do Perhaps we could recommend outpatient physical therapy at [facility] who does offer in addition to Mckenzie maneuvers a vestibular therapy program recommendation for exercises etc. Juan Daniel Castro MD History of Present Illness Reason for Consultation: Worened vertigo Requesting Physician: Skip Horat MD Attending Physician: Skip Horta MD History of Present Illness Eliazar is a 80 year old female with a PMH- PAF anticoagulated on Xarelto, COPD, HTN, HLD, FRANCIS on CPAP, CKD stage IIIb, macular degeneration, tobacco abuse, depr ession, history of large bowel resection status post colostomy who presents to [facility] 12/09/2020 with feeling lightheaded x3 days. She states this has been going on for approximately 2 to 3 weeks and she would have, "off and on days." She states, "I am having too many on days and that is why came today." She describes lightheadedness as feeling, off balance, "like I am swimming," and motion sickness. Symptoms are worse with quick head movements or going from seated to standing position. She has had similar symptoms in the past but this has been exacerbated over the past 2 to 3 days. She does have prior history of vertigo and this feels similar. She does have a colostomy in place and stool output is at baseline. She has a chronic dyspnea exertion secondary to COPD and she continues to smoke tobacco. She also has a chronic cough that is moist, productive and clear. She does occasionally get wheezing for which she uses DuoNeb inhalers once per night. PT has seen her and did the Mckenzie maneuver which she thinks has helped. In the past when she had vertigo they did the maneuvers and they "fixed her marbles" denies CP, SOB, abdominal pain, N, V, vision changes, swallowing issues, +dizzy feeling with head movement Allergies Allergy/AdvReac Type Severity Reaction Status Date / Time cephalexin [From Keflex] Allergy Mild Verified 12/08/20 14:42 cilostazol [From Pletal] Allergy Mild Verified 12/08/20 14:42 ciprofloxacin [From Cipro] Allergy Mild Verified 12/08/20 14:42 felodipine Allergy Mild Verified 12/08/20 14:42 meloxicam Allergy Mild rash Verified 12/08/20 16:39 sulfamethoxazole Allergy Mild Verified 12/08/20 14:42 [From Bactrim] trimethoprim [From Bactrim] Allergy Mild Verified 12/08/20 14:42 amoxicillin Allergy Unknown Verified 12/08/20 16:39 diltiazem AdvReac Unknown Verified 12/08/20 16:39 Home Medications Medication Instructions Recorded Confirmed Type calcium carbonate-vitamin D3 1 tab PO PM 03/10/19 12/08/20 History [Calcium 500 + D] escitalopram oxalate [Lexapro] 10 mg PO QAM 03/10/19 12/08/20 History ferrous sulfate 325 mg PO QAM 03/10/19 12/08/20 History omega-3 fatty acids-fish oil [Fish 1 cap PO PM 03/10/19 12/08/20 History Oil] rivaroxaban [Xarelto] 20 mg PO HS 03/10/19 12/08/20 History verapamil 240 mg PO QAM 03/10/19 12/08/20 History vit C,K-At-foroq-lutein-zeaxan 1 tab PO QAM 03/10/19 12/08/20 History [PreserVision AREDS-2] propylene glycol 0.6 % eye drops 1 drops OP PM PRN 07/23/19 12/08/20 History albuterol sulfate 90 mcg/actuation 1 inh INH QID #18 g 07/16/20 12/08/20 Rx aerosol inhaler guaifenesin 600 mg tablet, 600 mg PO BID #60 tab 07/16/20 12/08/20 Rx extended release 12 hr multivitamin 1 tab PO QAM 07/16/20 12/08/20 History ascorbic acid (vitamin C) [Vitamin 500 mg PO DAILY 12/08/20 12/08/20 History C] cyclosporine [Restasis] 1 drp OPB BID 12/08/20 12/08/20 History flecainide 50 mg PO BID 12/08/20 12/08/20 History fluticasone propionate 2 spray INTRANASAL QAM 12/08/20 12/08/20 History ipratropium-albuterol [DuoNeb] 3 ml INHALATION Q4H PRN 12/08/20 12/08/20 History lisinopril 20 mg PO QAM 12/08/20 12/08/20 History loratadine 10 mg PO QAM 12/08/20 12/08/20 History umeclidinium-vilanterol [Anoro 1 inh INH QAM 12/08/20 12/08/20 History Ellipta] Patient History Medical History (Updated 12/08/20 @ 23:16 by Delmy Menendez DO) A-fib Chronic bronchitis CKD (chronic kidney disease), stage III Colostomy in place COPD (chronic obstructive pulmonary disease) Depression Diverticulitis HLD (hyperlipidemia) HTN (hypertension) Macular degeneration Multiple pulmonary nodules FRANCIS on CPAP Osteoporosis PAF (paroxysmal atrial fibrillation) PVD (peripheral vascular disease) Tobacco dependence due to cigarettes Surgical History (Updated 12/08/20 @ 17:40 by Brenda Moses PA-C) History of cataract extraction with lens replacement History of creation of ostomy History of resection of large bowel History of tonsillectomy History of tubal ligation Family History (Updated 12/08/20 @ 17:41 by Brenda Moses PA-C) Father Pancreatic cancer Mother Stroke Social History (Updated 12/08/20 @ 17:41 by Brenda Moses PA-C) Smoking Status: Current every day smoker Tobacco Type: Cigarettes Age Started Using Tobacco: 22; Years Smoked: 60; Cigarettes Per Day: 6; Second Hand Exposure: No; Do You Dip or Chew Tobacco: No; Tobacco Cessation Education Requested by Patient: No Hx Alcohol Use: No Hx Substance Use: No Preferred Language: Somali Communication Ability: Effective Beliefs That Will Affect Care: None marital status: / Current Living Situation: Alone Feels Safe at Home: Yes Assistive Devices: Glasses and Oxygen - Continuous Review of Systems Review of Systems: All systems reviewed & are unremarkable except as noted in HPI & below Physical Exam Physical Exam: Physical Exam: Constitutional: appearance over nourished, healthy Ears, Nose, Mouth and Throat: mucous membranes moist, no injection and skin normal, eyes normal Cardiovascular: normal S-1 and S-2 Respiratory: course breath sound distant, wearing O2 nasal cannula/2L Musculoskeletal: no peripheral edema Skin: no stigmata of neurocutaneous disease noted and normal and intact Eyes: extraocular muscles intact (EOMI) and pupils equal, round and reactive to light (PERRL) NEUROLOGIC EXAMINATION: Mental status: Alert and interactive Oriented to person Speech fluent with no evidence of aphasia Cranial Nerves smile eye brow raise symmetric Reflexes: Deep tendon reflexes were symmetrical and decreased LE Sensory: light cool intact Coordination: finger to nose no bipass rapid hand movements intact Gait/Stance: Posture normal. Gait normal: with steady with steps, base, turning, tandem gait. Motor: Negative for pronator drift of out stretched arms with eyes closed. 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 hip flex 5/5 bilaterally Results & Data ([facility]) Vital Signs (Past 12 Hours) Vital Signs Temp Pulse Pulse Pulse Resp BP Pulse Ox 12/09/20 12:21 37.3 C 66 19 134/69 92 12/09/20 10:50 69 18 93 12/09/20 07:55 36.8 C 66 19 139/77 86 L 12/09/20 07:49 68 18 91 12/09/20 07:05 63 20 90 12/09/20 06:20 56 L 12/09/20 05:27 37.2 C 61 18 127/68 92 12/09/20 05:03 67 21 91 12/09/20 05:02 76 20 91 12/09/20 02:11 64 Laboratory Results Abnormal lab results 12/08/20 Range/Units 15:15 Urine pH 8.0 H (4.5-7.5) Ur Leukocyte Esterase Trace H (Negative) U Epithel Cells (Auto) 5-10 H (0-5) /lpf Diagnostic Findings cT head-Mildly motion degraded exam. Age-related involutional changes. White matter hypodensities suggestive of chronic microvascular ischemic disease. 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 Cerebral vascular calcifications. No acute intracranial hemorrhage, midline shift, intracranial mass, hydrocephalus, territorial ischemia or abnormal extra-axial collection. The calvarium is intact. Prior bilateral lens repair. The paranasal sinuses, mastoid air cells, and middle ear cavities are clear.
--- NOTE | 2020-12-09 15:18 | Hospitalist Progress Note ---
Date of Service December 09, 2020 Assessment & Plan (1) Vestibular neuritis: (2) Dizziness: Patient is a 80 yr female with H/O PAF anticoagulated on Xarelto, COPD, HTN, HLD, FRANCIS on CPAP, CKD stage IIIb, macular degeneration, tobacco abuse, depression, history of large bowel resection status post colostomy who presents to ED secondary to feeling lightheaded x3 days. Dizziness DD: BPPV/Vestibular Neuritis CT Head:No acute intracranial abnormality. Negative orthostatic vitals Started on prednisone taper Antivert as needed Neurology consulted for input Fall precautions Continue PT (3) PAF (paroxysmal atrial fibrillation): Rate controlled continue xarelto for anticoagulation (Renally Adjusted) Continue verapamil, flecainide Needs new prescription for Xarelto upon discharge (4) FRANCIS on CPAP: CPAP at HS (5) HTN (hypertension): Blood pressure stable Continue lisinopril, verapamil Monitor (6) COPD (chronic obstructive pulmonary disease): No signs of exacerbation Continue home inhalers Pulmonary hygiene (7) Tobacco dependence due to cigarettes: nicotine patch encourage smoking cessation (8) DVT prophylaxis: xarelto CODE STATUS Full code Disposition Expected discharge home when medically stable Admission and Anticipated Discharge Date Admission Date: December 08, 2020 Subjective Patient is seen and examined at bedside States having chronic cough which she attributes to COPD Persistent dizziness Had PT evaluation earlier today Orthostatics negative Denies chest pain, nausea, vomiting, abdominal pain Offers no other complaints Review of Systems Review of Systems: All systems reviewed & are unremarkable except as noted in HPI & below Physical Exam Physical Exam: Physical Exam: Vitals signs as noted above General Appearance:Moderately built and nourished, no apparent distress Head: normocephalic, Atraumatic Eyes: normal inspection, EOMI Neck: supple, Trachea midline Respiratory/Chest: Decreased breath sounds, CTA Cardiovascular: S1, S2, No murmur Abdomen/GI:Soft, Non tender, Bowel sounds present, +Colostomy Extremities/Musculoskeletal:normal inspection, no edema Neurologic/Psych:AAOX3, grossly no focal neurological deficits Skin: normal color, warm Results & Data Results & Data ([facility]) Vital Signs (Past 12 Hours) Vital Signs Temp Pulse Pulse Pulse Resp BP Pulse Ox 12/09/20 14:57 37.1 C 69 18 149/68 H 90 12/09/20 12:21 37.3 C 66 19 134/69 92 12/09/20 10:50 69 18 93 12/09/20 07:55 36.8 C 66 19 139/77 86 L 12/09/20 07:49 68 18 91 12/09/20 07:05 63 20 90 12/09/20 06:20 56 L 12/09/20 05:27 37.2 C 61 18 127/68 92 12/09/20 05:03 67 21 91 12/09/20 05:02 76 20 91 Laboratory Results Urine 12/08/20 Range/Units 15:15 Urine Color Yellow Urine Appearance Clear (Clear) Urine pH 8.0 H (4.5-7.5) Ur Specific [place] 1.008 (1.000-1.030) Urine Protein Negative (Negative) Urine Glucose (UA) Negative (Negative)
[2020-12-09] MEDS ORDERED: LORazepam 0.5 MG/1 ML VIAL IV SCH (16:42)
[2020-12-09] MEDS ORDERED: RIVAROXABAN 15 MG TAB PO SCH ×2 (17:00)
--- NOTE | 2020-12-09 21:06 | Magnetic Resonance Report ---
MR brain wo con HISTORY: 80 years-old Female vertigo r/o stroke acute vertigo with dizziness COMPARISON: Head CT 12/08/2020 TECHNIQUE: Multiplanar multisequence MRI of the brain was obtained without the use of IV contrast. FINDINGS: No restricted diffusion. No acute intracranial hemorrhage, midline shift, abnormal extra-axial collec tion, hydrocephalus or intracranial mass. No pathologic blooming artifact. Age-related involutional c hanges. Mild scattered T2/FLAIR hyperintensities are suggestive of chronic microvascular ischemic dis ease. Cerebral venous sinuses and major arterial flow voids are patent. Mastoid air cells are clear. Mild mucosal thickening with small air-fluid level of the right maxillary sinus suggestive of acute s inusitis. Prior bilateral lens repair. Mild mucosal thickening of the ethmoid air cells and frontal s inuses. The skull and soft tissues are unremarkable. IMPRESSION: No acute intracranial abnormality, specifically there is no evidence of acute or subacute infarct. ACT 112: Negative or not required by law. The above report was generated using voice recognition software. It may contain grammatical, syntax o r spelling errors. Electronically signed by: Stephen Rapp M.D. 12/09/2020 9:04 PM
[2020-12-09] MEDS: CALCIUM 600MG + VIT D 400 IU TAB PO SCH (21:08)
[2020-12-09] MEDS: OMEGA-3 (PURIFIED FISH OIL) 1 GM CAP PO SCH (21:08)
[2020-12-10] MEDS: RESTASIS - ORDER AWAITING ACTION SCH ×2 (00:05→07:42)
[2020-12-10] MEDS: ALBUTEROL HFA 8 GM INHALER INH SCH ×2 (07:10→10:53)
[2020-12-10 07:23] LABS: Hematocrit (blood only) 39.6 % (37-47); Hemoglobin 13.2 g/dL (12.0-16.0); Mean Corpuscular Hemoglobin 33.1 pg (25-34); Mean Corpuscular Hgb Conc 33.3 g/dL (32-36); Mean Corpuscular Volume 99.2 fL (80-100); Mean Platelet Volume 8.9 fL (7.4-10.4); Platelet Count 234 K/uL (130-400); RDW Coefficient of Variation 13.3 % (11.5-14.5); RDW Standard Deviation 48.3 fL (36.4-46.3); Red Blood Count 3.99 M/uL (4.2-5.4); White Blood Count 13.24 K/uL (4.8-10.8)
[2020-12-10] MEDS ORDERED: COUGH DROP (SUGAR FREE) LOZ 24 LOZ/1 BOX BUCCAL ONE (07:34)
[2020-12-10] MEDS: ASCORBIC ACID 500 MG TAB PO SCH (07:38)
[2020-12-10] MEDS: FLUTICASONE PROPIONATE NA SPR 16 GM BTL NAE SCH (07:39)
[2020-12-10] MEDS: FERROUS SULFATE 325 MG TAB PO SCH (07:39)
[2020-12-10] MEDS: ESCITALOPRAM OXALATE 10 MG TAB PO SCH (07:39)
[2020-12-10] MEDS: MECLIZINE HCL 25 MG TAB PO PRN (07:39)
[2020-12-10] MEDS: LORATADINE 10 MG TAB PO SCH (07:40)
[2020-12-10] MEDS: guaiFENesin 600 MG TABCR PO SCH (07:40)
[2020-12-10] MEDS: lisinopril 20 MG TAB PO SCH (07:40)
[2020-12-10] MEDS: NICOTINE 21 MG/24 HR TDSY TD SCH (07:40)
[2020-12-10] MEDS: CEROVITE ADV FORMULA TAB PO SCH (07:40)
[2020-12-10] MEDS: VERAPAMIL HCL 240 MG TABCR PO SCH (07:41)
[2020-12-10] MEDS: predniSONE 10 MG TABLET PO SCH (07:41)
[2020-12-10] MEDS: UMECLIDINIUM/VILANTEROL 62.5/25MCG 7 PUFFS/INHALER INH SCH (07:41)
[2020-12-10] MEDS: FLECAINIDE ACETATE 100 MG TABLET PO SCH (07:43)
[2020-12-10 07:59] LABS: BUN Creatinine Ratio 17.3 (10-20); Calcium 8.8 mg/dl (8.5-10.1); Creatinine Clr Calc Pharmacy 29.3 ml/min; Est GFR (African American) 45.9 ml/min; Est GFR (Non-African American) 39.6 ml/min; Magnesium 2.5 mg/dl (1.8-2.4); Potassium 4.5 mmol/L (3.5-5.1)
--- NOTE | 2020-12-10 09:10 | Communication Note ---
Date of Service: December 10, 2020 MRI has been reviewed with Dr Castro. There is no acute findings and no further work up needed from neurology MRI brain- No acute intracranial abnormality, specifically there is no evidence of acute or subacute infarct. follow up with neurology on an as needed basis. This has been communicated to primary service and patient can be discharged once medically stable. needs follow up with ENT, or Deborah if needed for vestibular exercises, and PCP neurology does not handle vertigo on and outpatient basis Lor [facility] neurology
--- NOTE | 2020-12-10 12:51 | Hospitalist Progress Note ---
Date of Service December 10, 2020 Assessment & Plan (1) Vestibular neuritis: (2) Dizziness: Patient is a 80 yr female with H/O PAF anticoagulated on Xarelto, COPD, HTN, HLD, FRANCIS on CPAP, CKD stage IIIb, macular degeneration, tobacco abuse, depression, history of large bowel resection status post colostomy who presents to ED secondary to feeling lightheaded x3 days. Dizziness DD: BPPV/Vestibular Neuritis CT Head:No acute intracranial abnormality. MRI Brain:No acute intracranial abnormality, specifically there is no evidence of acute or subacute infarct. Negative orthostatic vitals Continue prednisone taper course Antivert as needed Appreciate neurology input Fall precautions Continue PT/OT May need ENT evaluation as outpatient if symptoms persist despite prednisone course Improved (3) PAF (paroxysmal atrial fibrillation): Rate controlled continue xarelto for anticoagulation (Renally Adjusted) Continue verapamil, flecainide Needs new prescription for Xarelto upon discharge (4) FRANCIS on CPAP: CPAP at HS (5) HTN (hypertension): Blood pressure stable Continue lisinopril, verapamil Monitor (6) COPD (chronic obstructive pulmonary disease): Chronic respiratory failure with hypoxia Uses supplemental oxygen via nasal cannula as needed at baseline No signs of exacerbation Continue home inhalers Pulmonary hygiene (7) Tobacco dependence due to cigarettes: nicotine patch encourage smoking cessation (8) DVT prophylaxis: xarelto CODE STATUS Full code Disposition Home Admission and Anticipated Discharge Date Admission Date: December 08, 2020 Subjective Patient is seen and examined at bedside Doing much better today Dizziness improved Ambulated in hallways earlier today No new complaints Discussed with neurology today Eager to get discharged Denies chest pain, nausea, vomiting, abdominal pain Review of Systems Review of Systems: All systems reviewed & are unremarkable except as noted in HPI & below Physical Exam Physical Exam: Physical Exam: Vitals signs as noted above General Appearance:Moderately built and nourished, no apparent distress Head: normocephalic, Atraumatic Eyes: normal inspection, EOMI Neck: supple, Trachea midline Respiratory/Chest: Decreased breath sounds, CTA Cardiovascular: S1, S2, No murmur Abdomen/GI:Soft, Non tender, Bowel sounds present, +Colostomy Extremities/Musculoskeletal:normal inspection, no edema Neurologic/Psych:AAOX3, grossly no focal neurological deficits Skin: normal color, warm Results & Data Results & Data ([facility]) Vital Signs (Past 12 Hours) Vital Signs Temp Pulse Pulse Pulse Resp BP Pulse Ox 12/10/20 11:10 36.8 C 54 L 18 117/68 91 12/10/20 10:53 78 20 94 12/10/20 08:00 36.8 C 57 L 18 138/72 93 12/10/20 07:01 58 L 12/10/20 03:00 36.6 C 48 L 18 125/64 94 12/10/20 02:21 65 Laboratory Results Short CBC 12/10/20 Range/Units 07:01 WBC 13.24 H (4.8-10.8) K/uL Hgb 13.2 (12.0-16.0) g/dL Hct 39.6 (37-47) % Plt Count 234 (130-400) K/uL BMP 12/10/20 07:01 Sodium 144 Potassium 4.5 Chloride 113 H Carbon Dioxide 27 BUN 22 H Creatinine 1.29 H Glucose 92 Calcium 8.8
--- NOTE | 2020-12-10 13:06 | Discharge Summary ---
Date of Service December 10, 2020 Admission HPI Per Admitting Provider This is a 80-year-old female who has significant past medical history of PAF anticoagulated on Xarelto, COPD, HTN, HLD, FRANCIS on CPAP, CKD stage IIIb, macular degeneration, tobacco abuse, depression, history of large bowel resection status post colostomy who presents to ED secondary to feeling lightheaded x3 days. She states this has been going on for approximately 2 to 3 weeks and she would have, "off and on days." She states, "I am having too many on days and that is why came today." She describes lightheadedness as feeling, off balance, "like I am swimming," and motion sickness. Symptoms are worse with quick head movements or going from seated to standing position. She has had similar symptoms in the past but this has been exacerbated over the past 2 to 3 days. She does have prior history of vertigo and this feels similar. She denies feeling presyncopal or syncope. She further denies any fall. She denies any recent illness, fever, chills, sweats, chest pain, shortness breath at rest, nausea, vomiting, abdominal pain. She does have a colostomy in place and stool output is at baseline. She denies any dysuria, increased urgency or frequency with urination. She does have chronic dyspnea exertion secondary to COPD and she continues to smoke tobacco. She feels this is unchanged. She also has a chronic cough that is moist, productive and clear. She does occasionally get wheezing for which she uses DuoNeb inhalers for. She is only requiring this once nightly. She does not feel her cough is more productive than usual. Overall she feels her appetite has been good. She has been trying to push liquids, but her children tell her she does not drink enough. She states she drinks approximately 3-12 ounce cups of water a day. In ED patient remained hemodynamically stable. Her CBC and CMP relatively unremarkable except for creatinine 1.28. Her TSH was WNL. Her troponin was WNL. Urinalysis was negative for infection. Head CT was negative for acute abnormality but did reveal chronic microvascular ischemic change as well as old lacunar in the left lentiform nucleus. She denies any limb weakness, dysarthria, dysphagia or facial droop. In ED she received IV fluids. Admission Exam Per Admitting Provider Physical Exam Physical Exam: Constitutional: WD/WN, female, sitting in bedside chair, vitals as above, NAD, sitting up in bed, pleasant, conversing easily Head: Normocephalic, Atraumatic Eyes: PERRL, conjunctivae normal, anicteric sclerae ENMT: external ear and nose normal, EAC clean dry, TM anatomically normal, oropharynx normal Neck: trachea midline, no thyromegaly normal visual inspection Respiratory: normal respiratory effort, lungs clear to auscultation, + rhonchi b/l and prolonged exp phase with wheeze which cleared with coughing, no rales. Normal insp/exp effort, no accessory muscle use Cardiovascular: RRR, +ectopy, no murmur, no edema Vessels: no JVD or carotid bruit Chest: normal inspection of chest Abdomen: normal bowel sounds, soft, nontender, no hepatosplenomegaly +LLQ Colostomy in place Musculoskeletal: no cyanosis or clubbing, extremities motor strength 5/5 Skin: no rashes, warm and dry normal turgor Neurologic: PERRL, EOMI, accommodation nl, no face palsy, no dysarthria CN's II-XI intact bilaterally and moves all extremities Psychiatric: A+Ox3, euthymic affect Lymphatic: no cervical or axillary lymphadenopathy : deferred Principal Diagnosis Vestibular Neuritis Discharge Data Allergies Allergy/AdvReac Type Severity Reaction Status Date / Time cephalexin [From Keflex] Allergy Mild Verified 12/08/20 14:42 cilostazol [From Pletal] Allergy Mild Verified 12/08/20 14:42 ciprofloxacin [From Cipro] Allergy Mild Verified 12/08/20 14:42 felodipine Allergy Mild Verified 12/08/20 14:42 meloxicam Allergy Mild rash Verified 12/08/20 16:39 sulfamethoxazole Allergy Mild Verified 12/08/20 14:42 [From Bactrim] trimethoprim [From Bactrim] Allergy Mild Verified 12/08/20 14:42 amoxicillin Allergy Unknown Verified 12/08/20 16:39 diltiazem AdvReac Unknown Verified 12/08/20 16:39 Consultations 12/08/20 15:40 ED Decision to Admit Stat 12/08/20 22:43 Consult Neurology Routine Procedures Performed CT Head:No acute intracranial abnormality. MRI Brain:No acute intracranial abnormality, specifically there is no evidence of acute or subacute infarct. Ordered Studies 12/08/20 12:22 CT head/brain wo con Stat 12/09/20 15:27 MR brain wo con Routine Hospital Course (1) Vestibular neuritis: (2) Dizziness: Patient is a 80 yr female with H/O PAF anticoagulated on Xarelto, COPD, HTN, HLD, FRANCIS on CPAP, CKD stage IIIb, macular degeneration, tobacco abuse, depression, history of large bowel resection status post colostomy who presents to ED secondary to feeling lightheaded x3 days. Dizziness DD: BPPV/Vestibular Neuritis CT Head:No acute intracranial abnormality. MRI Brain:No acute intracranial abnormality, specifically there is no evidence of acute or subacute infarct. Negative orthostatic vitals Continue prednisone taper course Antivert as needed Appreciate neurology input Fall precautions Continue PT/OT May need ENT evaluation as outpatient if symptoms persist despite prednisone course Improved (3) PAF (paroxysmal atrial fibrillation): Rate controlled continue xarelto for anticoagulation (Renally Adjusted) Continue verapamil, flecainide Needs new prescription for Xarelto upon discharge (4) FRANCIS on CPAP: CPAP at (5) HTN (hypertension): Blood pressure stable Continue lisinopril, verapamil Monitor (6) COPD (chronic obstructive pulmonary disease): Chronic respiratory failure with hypoxia Uses supplemental oxygen via nasal cannula as needed at baseline No signs of exacerbation Continue home inhalers Pulmonary hygiene (7) Tobacco dependence due to cigarettes: nicotine patch encourage smoking cessation (8) DVT prophylaxis: xarelto CODE STATUS Full code Disposition Home Total Time Total Time Spent Total Time Spent (In Minutes): 36 minutes Total Time Includes: Examination of the Patient, Discharge Planning, Medication Reconciliation, Communication With Other Providers and Other Discharge Plan Discharge Items Patient Disposition: Home - Self-Care Reason For Visit: WEAKNESS,DIZZINESS Discharge Diagnosis: Dizziness Activity: Per Instructions section Exercise/Sports: Wait until after follow-up appointment Non-emergency contact: Primary Care Provider Call non-emergency contact if: you have any medication questions, your symptoms worsen, your pain is not controlled, your pain is concerning for you and you have a fever Follow-up/Referrals: Tameka Hooper MD [Primary Care Provider] - (Date & Time 12/16/2020 11:20 AM Provider Sameer Mckinnon MD Department Family Medicine [facility] ) Diet: Heart Healthy Addtl Attending Provider Instructions: Follow-up with your primary care physician Dr. Tameka Cai on 12/16/2020 at 11:20 AM Follow-up with your ENT surgeon if you have persistence of dizziness despite completing the prednisone course. Your Xarelto dose is adjusted based on your renal function (Take 15mg daily). Further recommendations as per your primary care physician. Complete the prednisone taper course as prescribed Prednisone Course Start taking Prednisone 60mg daily for 4 more days and then taper down by 10mg daily until finished. 12/11/20 TO 12/14/20: Take 60mg once daily 12/15/20:Take 50MG once daily 12/16/20:Take 40MG once daily 12/17/20:Take 30MG once daily 12/18/20:Take 20MG once daily 12/19/20:Take 10MG once daily STOP Seek immediate medical attention if your symptoms reoccur or worsen Please take all medications as instructed on discharge list below. Please call if you have any questions or problems. You can reach a [facility] hospitalist on duty at [facility] 24 hours a day by calling [phone] Pending Studies at Discharge: No Stand-Alone Forms: My [facility], Smoking Cessation Medications and DC Order Prescriptions: New Xarelto 15 mg Tablet 15 mg PO DAILY Qty: 30 RF: 1 meclizine 12.5 mg tablet 12.5 mg PO TID PRN (Reason: dizziness) Qty: 30 RF: 0 prednisone 10 mg tablet 10 mg PO UD Qty: 39 RF: 0 Continued Systane Balance 0.6 % drops 1 drops OP PM PRN (Reason: Eye Irritation) RF: 0 multivitamin [Daily Multi-Vitamin] Tablet 1 tab PO QAM RF: 0 albuterol sulfate [ProAir HFA] 90 mcg/actuation HFA aerosol inhaler 1 inh INH QID Qty: 18 RF: 3 guaifenesin [Mucinex] 600 mg tablet extended release 12hr 600 mg PO BID Qty: 60 RF: 3 ferrous sulfate 325 mg (65 mg iron) tablet 325 mg PO QAM RF: 0 verapamil 240 mg Tablet Extended Release 240 mg PO QAM RF: 0 escitalopram oxalate [Lexapro] 10 mg Tablet 10 mg PO QAM RF: 0 Fish Oil 300-500 mg Capsule 1 cap PO PM RF: 0 calcium carbonate-vitamin D3 [Calcium 500 + D] 500 mg(1,250mg) -400 unit Tablet 1 tab PO PM RF: 0 PreserVision AREDS-2 [id number] vi-biuo-si-mg Capsule 1 tab PO QAM RF: 0 lisinopril 20 mg tablet 20 mg PO QAM RF: 0 fluticasone propionate 50 mcg/actuation spray,suspension 2 spray INTRANASAL QAM RF: 0 Restasis 0.05 % dropperette 1 drp OPB BID RF: 0 Anoro Ellipta 62.5-25 mcg/actuation blister with device 1 inh INH QAM RF: 0 loratadine 10 mg Tablet 10 mg PO QAM RF: 0 ipratropium-albuterol 0.5 mg-3 mg(2.5 mg base)/3 mL Solution For Nebulization 3 ml INHALATION Q4H PRN (Reason: sob/wheezing) RF: 0 ascorbic acid (vitamin C) [Vitamin C] 500 mg Tablet 500 mg PO DAILY RF: 0 flecainide 50 mg tablet 50 mg PO BID RF: 0 Discontinued Xarelto 20 mg tablet 20 mg PO HS RF: 0 Discharge Orders: Discharge Order (Routine); Ordered 12/10/20 Ordered By: Skip Horta Admission Data Admit Date/Time: 12/08/20 16:06 Attending Provider: Skip Horta Admit Provider: Delmy Menendez Primary Care Provider: Tameka Hooper Other Providers: Delmy Menendez ; Juan Daniel Castro Other Interventions: Discharge Summary Assessment (RN) Last Done: 12/10/20 13:59
--- NOTE | 2020-12-11 05:51 | Electrocardiogram Report ---
Test Reason : Blood Pressure : / mmHG Vent. Rate : 059 BPM Atrial Rate : 059 BPM P-R Int : 288 ms QRS Dur : 076 ms QT Int : 444 ms P-R-T Axes : 050 -06 075 degrees QTc Int : 439 ms Sinus bradycardia with 1st degree A-V block Septal infarct , age undetermined Possible Inferior infarct Nonspecific T wave abnormality Abnormal ECG When compared with ECG of 08-DEC-2020 12:07, Premature ventricular complexes are no longer Present Septal infarct is now Present Confirmed by Kristian Pierce ([id number]) on 12/11/2020 5:51:45 AM Referred By: REFERRED SELF Confirmed By:Kristian Pierce
--- NOTE | 2020-12-12 07:06 | Electrocardiogram Report ---
Test Reason : Blood Pressure : / mmHG Vent. Rate : 064 BPM Atrial Rate : 064 BPM P-R Int : 294 ms QRS Dur : 078 ms QT Int : 412 ms P-R-T Axes : 065 000 079 degrees QTc Int : 425 ms Sinus rhythm with 1st degree A-V block with occasional Premature ventricular complexes Nonspecific T wave abnormality Abnormal ECG When compared with ECG of 09-DEC-2020 06:25, Premature ventricular complexes are now Present Criteria for Septal infarct are no longer Present Confirmed by Kristian Pierce ([id number]) on 12/12/2020 7:05:32 AM Referred By: REFERRED SELF Confirmed By:Kristian Pierce
--- NOTE | 2020-12-21 11:21 | Coding Query ---
A supporting diagnosis is required for the test/procedure performed on this patient in order for us to be reimbursed by the patient's insurance. Please provide a supporting diagnosis for the following test/procedure listed below next to the test name along with your signature. *If there is no additional diagnosis for this patient that would support the following test/procedure please document that below next to the test/procedure. Test(s)/Procedure(s) that require a supporting diagnosis: * 50152 CANALITH REPOSITIONING PROC DIAGNOSIS: Vertigo, possible BPPV Canalith repositioning was performed as BPPV was in the differential diagnosis. sms DATE OF SERVICE: 12/09/20 Delmy Menendez DO. 01-07-21 Thank you [facility] Information Management Once completed, please kindly fax back to [phone] For questions please call [phone] [facility] [facility]OSPITALJesusita
== END 2020-12-10 16:14 | disposition home or self-care (01) ==
LOC: 2N 11:53 → ED 11:53 → SUATTDRO 16:06 → 2N 17:57

== ENCOUNTER 2023-07-25 13:43 | Inpatient (IN) ==
--- NOTE | 2023-07-25 14:00 | ED Triage Note ---
Date of Service July 25, 2023 Provider in Triage Author: Mitch Rogers. History of Present Illness This patient was briefly evaluated while in triage. An abbreviated physical exam was performed. This patient is a 83-year-old Female who presents to the ED for evaluation of lightheadedness that is constant and worse when she stands up. Been present for several months but worsened over the weekend. Has had an increase in thirst. Recent UTI. More tired than normal. Physical Exam CONSTITUTIONAL: in no acute pain or distress, resting comfortably SKIN: pink, warm, dry CARDIAC: regular rate and rhythm RESPIRATORY: lung auscultation makes the patient feel lightheaded. Lungs otherwise clear. Initial orders for labs and / or imaging were placed and patient was placed in the waiting area until a bed is available. Please see further documentation for the full ED course.
[2023-07-25 14:47] LABS: Hematocrit (blood only) 23.5 % (37.0-47.0); Hemoglobin 6.9 g/dl (12.0-16.0); Mean Corpuscular Hemoglobin 29.7 pg (25.0-34.0); Mean Corpuscular Hgb Conc 29.4 g/dL (32.0-36.0); Mean Corpuscular Volume 101.3 fL (80.0-100.0); Mean Platelet Volume 8.7 fL (9.4-12.4); Platelet Count 309 K/uL (130-400); RDW Coefficient of Variation 15.1 % (11.5-14.5); RDW Standard Deviation 55.5 fL (36.4-46.3); Red Blood Count 2.32 M/uL (4.20-5.40); White Blood Count 9.53 K/ul (4.8-10.8)
[2023-07-25 14:51] LABS: Albumin Level 3.4 gm/dl (3.4-5.0); Bilirubin,Total 0.2 mg/dl (0.2-1.0); Calcium 7.3 mg/dl (8.6-10.3); Potassium 5.2 mmol/L (3.5-5.1)
[2023-07-25 14:57] LABS: Albumin Globulin Ratio 1.1 (0.9-2); Globulin 3.2 gm/dl (2.5-4.0); Total Protein 6.6 gm/dl (6.0-8.3)
[2023-07-25] MEDS ORDERED: PANTOprazole 40 MG in SYRINGE 0 ML IV ONE (14:57)
[2023-07-25] MEDS ORDERED: FAMOTIDINE 20MG IV PUSH 20 MG/5 ML SYR IV STA (14:57)
[2023-07-25 14:59] LABS: Basophils # (auto) 0.03 K/uL (0.00-0.20); Basophils % (auto) 0.3 %; Eosinophils # (auto) 0.21 K/uL (0.00-0.50); Eosinophils % (auto) 2.2 %; Immature Granulocytes # (auto) 0.13 K/uL (0.01-0.20); Immature Granulocytes % (auto) 1.4 %; Lymphocytes # (auto) 1.78 K/uL (1.20-3.40); Lymphocytes % (auto) 18.7 %; Monocytes # (auto) 1.01 K/uL (0.11-0.59); Monocytes % (auto) 10.6 %; Neutrophils # (auto) 6.37 K/uL (1.40-6.50); Neutrophils % (auto) 66.8 %; Polychromasia 1+; Stomatocytes 2+
--- NOTE | 2023-07-25 15:08 | Emergency Department Note ---
Impression & Plan GI (gastrointestinal bleed), Weakness, Anemia ED Provider Note NAME: ANGELA BAILON AGE: 83 SEX: F : 1940 ARRIVES VIA: Ambulance INFORMANT: Patient, ED PROVIDER(S): Torey Pickett DO CHIEF COMPLAINT: Dizziness HPI: The patient is an 83-year-old female who presented to the emergency department for an evaluation of dizziness. The patient has been experiencing dizziness upon standing and weakness over the course the last few months. The patient has not been seen by the primary care physician for the symptoms. The patient presented to the emergency department today because of ongoing and worsening symptoms. The patient denies having any chest pain. She has noticed some dark stool. She has a history of diverticular disease. She denies having any abdominal pain or vomiting. She denies having any trauma or falls. The patient was evaluated in the [facility] area. ROS: See above HPI for pertinent positives & negatives. A total of 10 systems reviewed and were otherwise negative. PAST MEDICAL HISTORY: See Below PAST SURGICAL HISTORY: See Below FAMILY HISTORY: See Below SOCIAL HISTORY: See Below HOME MEDICATIONS: See Below ALLERGIES: See Below VITALS: See Below PHYSICAL EXAMINATION: GENERAL: Patient is awake alert in no acute distress patient is resting comfortably and showing no signs of anxiety EYES: The conjunctivae are clear. The pupils are round and reactive. EARS, NOSE, MOUTH AND THROAT: The nose is without any evidence of any deformity. NECK: The neck is nontender and supple. RESPIRATORY: Normal respiratory effort is noted there is no evidence of wheezing rhonchi or rales CARDIOVASCULAR: Regular rate and rhythm noted there no murmurs rubs or gallops normal S1 normal S2. GASTROINTESTINAL: The abdomen is distended but soft. There is no tenderness guarding or rigidity. Ostomy bag reveals dark stool. MUSCULOSKELETAL/EXTREMITIES: There is no evidence of gross deformity full range of motion is noted in the hips and shoulders. SKIN: There is no obvious evidence of any rash. Trace pedal edema was noted bilaterally. NEUROLOGIC: Patient is awake alert and oriented x3 MEDICAL DECISION MAKING: The patient is an 83-year-old female who presented to the emergency department for weakness. The patient describes weakness and dizziness. The patient has been having ongoing symptoms for the last few weeks. The patient has a history of diverticular disease. She has an ostomy. She has been noticing dark stool and her hemoglobin today was found to be low. Her baseline hemoglobin was in the normal range. The patient was typed and crossed in the emergency department. I did consent the patient for blood products. I discussed patient's laboratory and radiographic studies with her. I also discussed her condition with the on-call [facility] hospitalist. They have agreed to evaluate the patient in the emergency department for further management and disposition. Triage Nursing notes reviewed. Prior medical records reviewed Vital Signs: reviewed and remarkable for no significant abnormalities Differential diagnosis: Infection, dehydration, metabolic abnormality, hypo/hyperglycemia, electrolyte disturbance, anemia, hypoxia, cardiac sources, intracerebral event, toxicologic, neurologic, as well as other pathologies. ER treatment provided: See below Diagnostics interpreted by me: ECG: EKG was obtained in the emergency department. My interpretation is sinus rhythm at 67 bpm. There is no ectopy. First-degree AV block is noted. Low voltage was noted. This was compared to a tracing from November 05, 2021. No changes were noted Cardiac Monitoring: An order was placed for continuous cardiac monitoring. The monitor shows a rate of 90 bpm with sinus rhythm. Laboratory studies: As stated above and show below. Imaging studies: See below. Radiographic imaging was reviewed by myself Consultation(s): I discussed this case with Tita who is on-call for the [facility] Hospitalist group. Past Med/Surg History Medical History (Updated 07/25/23 @ 16:38 by Tita Rivero PA-C) FRANCIS (obstructive sleep apnea) Osteoarthritis Chronic back pain Diverticular disease Skin cancer of nose 1970s--unsure which kind, removed in office On anticoagulant therapy xarelto daily On home oxygen therapy 4L N/C PRN PVD (peripheral vascular disease) PAF (paroxysmal atrial fibrillation) on xarelto/flecainide--follows with Dr. Savage Depression Macular degeneration Osteoporosis CKD (chronic kidney disease), stage III HTN (hypertension) HLD (hyperlipidemia) Multiple pulmonary nodules Tobacco dependence due to cigarettes 5 per day Chronic bronchitis COPD (chronic obstructive pulmonary disease) inhaler daily/prn, nebulizer daily/prn; continuous oxygen 3L Colostomy in place Diverticulitis Surgical History History of appendectomy taken out during resection of bowel History of colonoscopy History of tooth extraction History of cataract extraction with lens replacement bilateral History of tonsillectomy History of tubal ligation History of resection of large bowel (~10/2018) perforated bowel d/t diverticulitis History of creation of ostomy 10/2018 Family History Father Pancreatic cancer Mother Stroke Other No family history of adverse response to anesthesia Social History Smoking Status: Current every day smoker Tobacco Type: Cigarettes Age Started Using Tobacco: 22; Cigarettes Per Day: 3; Second Hand Exposure: Yes (hx growing up); Do You Dip or Chew Tobacco: No; Hx Alcohol Use: No Hx Substance Use: No Preferred Language: Thai Communication Ability: Effective Court Clerk Required: No Beliefs That Will Affect Care: None marital status: / Current Living Situation: Alone Current Living Situation Comment: Mobile home, [address] Other Information That Helps Us Care for You: No ("I like [employer]") Feels Safe at Home: Yes Assistive Devices: Glasses and Oxygen - Continuous Allergies Allergies Allergy/AdvReac Type Severity Reaction Status Date / Time amoxicillin Allergy Intermediate Rash Verified 07/25/23 16:04 cephalexin [From Keflex] Allergy Intermediate Rash Verified 07/25/23 16:04 cilostazol [From Pletal] Allergy Intermediate Rash Verified 07/25/23 16:04 ciprofloxacin [From Cipro] Allergy Intermediate Rash Verified 07/25/23 16:04 diltiazem Allergy Intermediate Rash Verified 07/25/23 16:04 felodipine Allergy Intermediate Rash Verified 07/25/23 16:04 meloxicam Allergy Intermediate Rash Verified 07/25/23 16:04 sulfamethoxazole Allergy Intermediate Rash Verified 07/25/23 16:04 [From Bactrim] trimethoprim [From Bactrim] Allergy Intermediate Rash Verified 07/25/23 16:04 Home Meds Home Medications Medication Instructions Recorded Confirmed calcium carbonate 500 mg-vitamin 1 tab PO QPM 03/10/19 07/25/23 D3 10 mcg (400 unit) tablet (Calcium 500 + D) escitalopram oxalate 10 mg tablet 10 mg PO QAM 03/10/19 07/25/23 (Lexapro) ferrous sulfate 325 mg (65 mg 325 mg PO QAM 03/10/19 07/25/23 iron) tablet verapamil 240 mg tablet,extended 240 mg PO QAM 03/10/19 07/25/23 release vit C 250 mg-vit E 90 mg-zinc 40 1 tab PO QAM 03/10/19 07/25/23 mg-copper 1 [id number] capsule (PreserVision AREDS-2) ascorbic acid (vitamin C) 500 mg 500 mg PO QAM 12/08/20 07/25/23 tablet (Vitamin C) cyclosporine 0.05 % eye drops in a 1 drp OPB BID 12/08/20 07/25/23 dropperette (Restasis) flecainide 50 mg tablet 50 mg PO BID 12/08/20 07/25/23 rivaroxaban 15 mg tablet (Xarelto) 15 mg PO QPM 11/05/21 07/25/23 lisinopril 2.5 mg tablet 2.5 mg PO QAM 03/14/23 07/25/23 mesalamine 1.2 gram tablet,delayed 3.6 g PO QAM 03/14/23 07/25/23 release acetaminophen 325 mg tablet 325 mg PO Q6H PRN Pain 07/25/23 07/25/23 (Tylenol) ipratropium 0.5 mg-albuterol 3 mg 3 ml inhalation Q4H PRN Wheezing 07/25/23 07/25/23 (2.5 mg base)/3 mL nebulization soln omega-3 fatty acids 500 mg capsule 500 mg PO DAILY 07/25/23 07/25/23 solifenacin 5 mg tablet 5 mg PO QAM 07/25/23 07/25/23 triamcinolone acetonide 0.05 % 1 applic topical BID PRN AFFECTED 07/25/23 07/25/23 topical ointment AREA Previous Rx's Medication Instructions Recorded guaifenesin 600 mg tablet, 600 mg PO BID #60 tabs 07/16/20 extended release 12 hr (Mucinex) Portable Oxygen #1 ea 03/25/21 Auto Titrating CPAP #1 ea 02/03/23 CPAP Supplies #1 ea 02/03/23 albuterol sulfate 90 mcg/actuation 1 inh inhalation QID PRN Shortness 02/03/23 aerosol inhaler (ProAir HFA) Of Breath #8.5 grams budesonide 0.25 mg/2 mL suspension 0.25 mg (2 mL) inhalation BID #60 02/03/23 for nebulization mL umeclidinium 62.5 mcg-vilanterol 1 inh inhalation QAM #60 ea 02/03/23 25 mcg/actuation powdr for inhalation (Anoro Ellipta) Results & Data (ED) Vital Signs Vital Signs - 24 hr 07/25/23 13:58 Temperature 36.7 C Temperature Source Skin Pulse Rate 91 H Respiratory Rate 18 Blood Pressure 135/58 L Blood Pressure Mean 83 Pulse Oximetry 96 Oxygen Delivery Method Nasal Cannula Oxygen Flow Rate 3 Sepsis Recent Fever Within 48 Hours No Sepsis New/Unexplained Change in Mental Status No Sepsis Action Taken by Nursing No Action Required Home Medications Current Medication List: was personally reviewed by me Laboratory Data Attestation: I reviewed the patient's lab results. 07/25/23 14:25 07/25/23 14:25 Lab Results 07/25/23 07/25/23 Range/Units 14:25 15:23 WBC 9.53 (4.8-10.8) K/ul RBC 2.32 L (4.20-5.40) M/uL Hgb 6.9 L* (12.0-16.0) g/dl Hct 23.5 L (37.0-47.0) % MCV 101.3 H (80.0-100.0) fL MCH 29.7 (25.0-34.0) pg MCHC 29.4 L (32.0-36.0) g/dL RDW Std Deviation 55.5 H (36.4-46.3) fL RDW Coeff of Lynn 15.1 H (11.5-14.5) % Plt Count 309 (130-400) K/uL MPV 8.7 L (9.4-12.4) fL Immature Gran % (Auto) 1.4 % Neut % (Auto) 66.8 % Lymph % (Auto) 18.7 % [place] % (Auto) 10.6 % Eos % (Auto) 2.2 % Baso % (Auto) 0.3 % Reticulocyte % (Auto) 5.20 H (0.50-2.00) % Neut # (Auto) 6.37 (1.40-6.50) K/uL Lymph # (Auto) 1.78 (1.20-3.40) K/uL [place] # (Auto) 1.01 H (0.11-0.59) K/uL Eos # (Auto) 0.21 (0.00-0.50) K/uL Baso # (Auto) 0.03 (0.00-0.20) K/uL Reticulocyte # 0.120 H (0.020-0.100) 10^6/uL Immature Gran # (Auto) 0.13 (0.01-0.20) K/uL Polychromasia 1+ Stomatocytes 2+ PT 11.8 (9.0-12.0) Seconds INR 1.1 (0.9-1.1) APTT 33 H (21-31) Seconds PTT Ratio 1.2 Sodium 139 (136-145) mmol/L Potassium 5.2 H (3.5-5.1) mmol/L Chloride 108 H (98-107) mmol/L Carbon Dioxide 28 (21-32) mmol/L Anion Gap 3 (3-11) BUN 21 (6-23) mg/dl Creatinine 1.51 H (0.6-1.2) mg/dl Est Cr Clr Drug Dosing Not Reportable Est GFR ( Amer) 37.2 ml/min Est GFR (Non-Af Amer) 32.1 ml/min BUN/Creatinine Ratio 13.9 (10-20) Glucose 111 H (70-99(Fasting)) mg/dl Calcium 7.3 L (8.6-10.3) mg/dl Magnesium 2.6 H (1.7-2.4) mg/dl Total Bilirubin 0.2 (0.2-1.0) mg/dl AST 14 (13-39) U/L ALT 11 (7-52) U/L Alkaline Phosphatase 70 (34-104) U/L Troponin I High Sens 13.3 (0-14) pg/ml Total Protein 6.6 (6.0-8.3) gm/dl Albumin 3.4 (3.4-5.0) gm/dl Globulin 3.2 (2.5-4.0) gm/dl Albumin/Globulin Ratio 1.1 (0.9-2) TSH 2.789 (0.300-4.500) uIu/ml Blood Type A Positive Antibody Screen NEGATIVE Crossmatch See Detail Administered Medications Albuterol (Albut/Ipratrop 3mg/0.5mg Neb 3 Ml Vial) 3 ml INH Q4H PRN; Protocol PRN Reason: Wheezing Stop: 08/24/23 16:18 Last Admin: 07/25/23 20:21 Dose: 3 ml Documented By: SUKHJINDER Budesonide (Budesonide 0.25 Mg/2 Ml Vial (Pulmicort)) 0.25 mg INH BIDR [place] Stop: 08/24/23 18:59 Last Admin: 07/25/23 20:14 Dose: 0.25 mg Documented By: SUKHJINDER Flecainide Acetate (Flecainide Acetate 100 Mg Tablet) 50 mg PO BID [place] Stop: 08/24/23 20:59 Last Admin: 07/25/23 20:41 Dose: 50 mg Documented By: CECILY Discontinued Medications Flecainide Acetate (Flecainide Acetate 100 Mg Tablet) 50 mg PO ONE ONE Stop: 07/25/23 16:40 Last Admin: 07/25/23 17:44 Dose: 50 mg Documented By: LYNN Pantoprazole Sodium 40 mg/ (Syringe) 10 mls @ 5 mls/min IV NOW ONE Stop: 07/25/23 14:58 Last Admin: 07/25/23 16:36 Dose: 5 mls/min Documented By: BOBBY Famotidine (Pepcid 20mg Iv Push) 20 mg in 5 mls @ 2.5 mls/min IV NOW STA Stop: 07/25/23 14:58 Last Admin: 07/25/23 16:36 Dose: 2.5 mls/min Documented By: BOBBY Pantoprazole Sodium 80 mg/ (Dextrose) 120 mls @ 480 mls/hr IV NOW ONE Stop: 07/25/23 18:03 Last Infusion: 07/25/23 20:42 Dose: Infused Documented By: Admin: 07/25/23 20:20 Dose: 480 mls/hr Documented By: CECILY Verapamil HCl (Verapamil Hcl 240 Mg Tabcr) 240 mg PO NOW STA Stop: 07/25/23 16:39 Last Admin: 07/25/23 17:43 Dose: 240 mg Documented By: LYNN Imaging Data Attestation: I personally reviewed and interpreted this imaging study as follows: My Impression: 1 view chest x-ray was obtained in the emergency department. My interpretation is no free air or definite infiltrate, final report below. Radiologist's Impression: Chest X-Ray 07/25/23 14:00 XR chest 1V portable CLINICAL HISTORY: generalized weakness TECHNIQUE: Single frontal radiograph of the chest was obtained. Comparison: Comparison is made to chest radiograph 11/05/2021 FINDINGS: No lines and tubes are seen. Cardiomegaly is noted. The aortic arch is calcified. Faint bibasilar airspace opacities are seen. Interstitial thickening is seen. No evidence of pleural effusion or pneumothorax. IMPRESSION: Faint bibasilar airspace opacities which may represent atelectasis, pneumonia, and/or aspiration. ACT 112: Negative or not required by law. Electronically signed by: Yoel Elena M.D. 07/25/2023 3:54 PM Discharge Plan Visit Data Chief Complaint: Dizziness ED Provider: Torey Pickett Discharge Problem: GI (gastrointestinal bleed), Weakness, Anemia Patient Disposition: Being Evaluated by Hospitalist Discharge Instructions Interventions: ED Discharge Assessment Last Done: 07/25/23 17:45 Discharge Problem: GI (gastrointestinal bleed) Qualifiers: GI bleed type/associated pathology: unspecified gastrointestinal hemorrhage type Qualified Code(s): K92.2 - Gastrointestinal hemorrhage, unspecified Anemia Qualifiers: Anemia type: unspecified type Qualified Code(s): D64.9 - Anemia, unspecified
--- NOTE | 2023-07-25 15:33 | History & Physical Report ---
Date of Service July 25, 2023 Assessment & Plan (1) Anemia: (2) Weakness: (3) GI (gastrointestinal bleed): Plan: This is an 83-year-old female with PMH of history of suspected IBD, history of diverticulitis and resection of large bowel with colostomy, chronic hypoxemic respiratory failure, COPD, FRANCIS on 3L NC, paroxysmal atrial fibrillation on Xarelto, hypertension CKD 3, depression and other medical problems listed below who presents with generalized weakness over the past 2 months and presents with anemia and suspected GI bleed. Progressive weakness, lightheadedness and darkened ostomy output over the past 2 months Colonoscopy in 2021 with evidence of inflammatory changes, suspected UC versus ischemic colitis per Dr. Kim's note, on mesalamine Was due for repeat colonoscopy but missed due to lack of ride, rescheduled for October 31 of this year Hgb 6.9 (baseline hgb ~14) No abdomina pain, nausea or vomiting Consented, type & cross and ordered 1u prbcs for transfusion Repeat H&H 2100 Discussed with GI, NPO after midnight for possible scope tomorrow (4) PAF (paroxysmal atrial fibrillation): Plan: In sinus rhythm on admission Given missed AM doses of flecainide and verapamil Hold Xarelto in setting of suspected GI bleed Monitor on telemetry (5) Chronic respiratory failure with hypoxia: (6) COPD (chronic obstructive pulmonary disease): (7) FRANCIS (obstructive sleep apnea): Plan: Chronic 3L NC, no longer uses CPAP at night. Continue home Budesonide, Anoro inh, Duonebs PRN (8) CKD (chronic kidney disease), stage III: Plan: Cr 1.51 (Baseline Cr mid 1s). Continue to monitor with daily BMP (9) HTN (hypertension): Plan: BP 152/62. Given missed verapamil dose. Continue lisinopril, verapamil (10) Tobacco dependence due to cigarettes: Plan: Still smoking 3-4 cigarettes daily Recommended strict cessation (11) Diverticulitis: (12) Colostomy in place: Plan: H/o colon resection in 2019 at [facility] in [place] DVT Ppx: holding Xarelto in setting of GI bleed Code status: FULL PCP: Sergio Cai Dispo: admitted to PCU Patient seen in collaboration with Dr. Fam. Please see addendum. I spent a total of 75 minutes coordinating, documenting, and providing care for this patient excluding time spent in the performance of separately billed services. History of Present Illness Chief Complaint: Anemia, weakness Primary Care Provider: Tameka Mao MD This is an 83-year-old female with PMH of history of suspected IBD, history of diverticulitis and resection of large bowel with colostomy, chronic hypoxemic respiratory failure, COPD, FRANCIS on 3L NC, paroxysmal atrial fibrillation on Xarelto, hypertension CKD 3, depression and other medical problems listed below who presents with generalized weakness over the past 2 months. Patient had noted generalized weakness and lightheadedness over the past 2 months with progressively gotten worse. Over the weekend, felt like she was going to fall anytime she ambulated and therefore decided to present to ED this morning for further evaluation. Has also noted darker output in her ostomy bag over the past 2 months. Does follow with Dr. Kim for history of suspected IBD. Colonoscopy from 2021 showed inflammatory changes consistent with UC versus ischemic colitis? Missed her scheduled colonoscopy that was just rescheduled for October 31. Denies any abdominal pain, nausea, vomiting or change to appetite. No fever, chills, headache, chest pain, shortness of breath, dysuria. Denies any falls at home but lives alone and has been feeling very unsteady. Did not take any of her home medications this morning. Still smokes 3-4 cigarettes daily. Allergies Allergy/AdvReac Type Severity Reaction Status Date / Time amoxicillin Allergy Intermediate Rash Verified 07/25/23 16:04 cephalexin [From Keflex] Allergy Intermediate Rash Verified 07/25/23 16:04 cilostazol [From Pletal] Allergy Intermediate Rash Verified 07/25/23 16:04 ciprofloxacin [From Cipro] Allergy Intermediate Rash Verified 07/25/23 16:04 diltiazem Allergy Intermediate Rash Verified 07/25/23 16:04 felodipine Allergy Intermediate Rash Verified 07/25/23 16:04 meloxicam Allergy Intermediate Rash Verified 07/25/23 16:04 sulfamethoxazole Allergy Intermediate Rash Verified 07/25/23 16:04 [From Bactrim] trimethoprim [From Bactrim] Allergy Intermediate Rash Verified 07/25/23 16:04 Home Medications Medication Instructions Recorded Confirmed Type calcium carbonate 500 mg-vitamin 1 tab PO QPM 03/10/19 07/25/23 History D3 10 mcg (400 unit) tablet (Calcium 500 + D) escitalopram oxalate 10 mg tablet 10 mg PO QAM 03/10/19 07/25/23 History (Lexapro) ferrous sulfate 325 mg (65 mg 325 mg PO QAM 03/10/19 07/25/23 History iron) tablet verapamil 240 mg tablet,extended 240 mg PO QAM 03/10/19 07/25/23 History release vit C 250 mg-vit E 90 mg-zinc 40 1 tab PO QAM 03/10/19 07/25/23 History mg-copper 1 [id number] capsule (PreserVision AREDS-2) guaifenesin 600 mg tablet, 600 mg PO BID #60 tabs 07/16/20 07/25/23 Rx extended release 12 hr (Mucinex) ascorbic acid (vitamin C) 500 mg 500 mg PO QAM 12/08/20 07/25/23 History tablet (Vitamin C) cyclosporine 0.05 % eye drops in a 1 drp OPB BID 12/08/20 07/25/23 History dropperette (Restasis) flecainide 50 mg tablet 50 mg PO BID 12/08/20 07/25/23 History Portable Oxygen #1 ea 03/25/21 01/19/23 Rx rivaroxaban 15 mg tablet (Xarelto) 15 mg PO QPM 11/05/21 07/25/23 History Auto Titrating CPAP #1 ea 02/03/23 02/03/23 Rx CPAP Supplies #1 ea 02/03/23 02/03/23 Rx albuterol sulfate 90 mcg/actuation 1 inh inhalation QID PRN Shortness 02/03/23 07/25/23 Rx aerosol inhaler (ProAir HFA) Of Breath #8.5 grams budesonide 0.25 mg/2 mL suspension 0.25 mg (2 mL) inhalation BID #60 02/03/23 07/25/23 Rx for nebulization mL umeclidinium 62.5 mcg-vilanterol 1 inh inhalation QAM #60 ea 02/03/23 07/25/23 Rx 25 mcg/actuation powdr for inhalation (Anoro Ellipta) lisinopril 2.5 mg tablet 2.5 mg PO QAM 03/14/23 07/25/23 History mesalamine 1.2 gram tablet,delayed 3.6 g PO QAM 03/14/23 07/25/23 History release acetaminophen 325 mg tablet 325 mg PO Q6H PRN Pain 07/25/23 07/25/23 History (Tylenol) ipratropium 0.5 mg-albuterol 3 mg 3 ml inhalation Q4H PRN Wheezing 07/25/23 07/25/23 History (2.5 mg base)/3 mL nebulization soln omega-3 fatty acids 500 mg capsule 500 mg PO DAILY 07/25/23 07/25/23 History solifenacin 5 mg tablet 5 mg PO QAM 07/25/23 07/25/23 History triamcinolone acetonide 0.05 % 1 applic topical BID PRN AFFECTED 07/25/23 07/25/23 History topical ointment AREA Past Med/Surg History Medical History (Updated 07/25/23 @ 16:38 by Tita Rivero PA-C) FRANCIS (obstructive sleep apnea) Osteoarthritis Chronic back pain Diverticular disease Skin cancer of nose 1970s--unsure which kind, removed in office On anticoagulant therapy xarelto daily On home oxygen therapy 4L N/C PRN PVD (peripheral vascular disease) PAF (paroxysmal atrial fibrillation) on xarelto/flecainide--follows with Dr. Savage Depression Macular degeneration Osteoporosis CKD (chronic kidney disease), stage III HTN (hypertension) HLD (hyperlipidemia) Multiple pulmonary nodules Tobacco dependence due to cigarettes 5 per day Chronic bronchitis COPD (chronic obstructive pulmonary disease) inhaler daily/prn, nebulizer daily/prn; continuous oxygen 3L Colostomy in place Diverticulitis Surgical History History of appendectomy taken out during resection of bowel History of colonoscopy History of tooth extraction History of cataract extraction with lens replacement bilateral History of tonsillectomy History of tubal ligation History of resection of large bowel (~10/2018) perforated bowel d/t diverticulitis History of creation of ostomy 10/2018 Family History Father Pancreatic cancer Mother Stroke Other No family history of adverse response to anesthesia Social History Smoking Status: Current every day smoker Tobacco Type: Cigarettes Age Started Using Tobacco: 22; Cigarettes Per Day: 5; Second Hand Exposure: Yes (hx growing up); Do You Dip or Chew Tobacco: No; Hx Alcohol Use: Yes (none since 2003) Hx Substance Use: No Preferred Language: Japanese Communication Ability: Effective Boss Miner Required: No Beliefs That Will Affect Care: None marital status: / Current Living Situation: Alone Feels Safe at Home: Yes Assistive Devices: Glasses, Nebulizer, Oxygen - Continuous and Walker Review of Systems Review of Systems: At least ten systems reviewed and negative except as noted in the HPI. Physical Exam Physical Exam: General Appearance: WD/WN, vitals as above, NAD, sitting up in bed, pleasant, conversing easily Head: normocephalic, atraumatic Eyes: normal inspection, PERRL, conjunctivae normal, anicteric sclerae ENT: external ear and nose normal, oropharynx normal Neck: normal visual inspection, trachea midline, no thyromegaly Respiratory: normal respiratory effort, diffuse rhonchi . No accessory muscle use Cardiovascular: regular rate, rhythm, no murmur, normal peripheral pulses, no BLE edema. Vessels: no JVD Chest: normal inspection of chest Abdomen/GI: normal bowel sounds, soft, nontender, no hepatosplenomegaly, + ostomy bag with dark brown output Extremities/Musculoskeletal: no cyanosis or clubbing, extremities motor strength 5/5 Neurologic: PERRL, EOMI, accommodation nl, no face palsy, no dysarthria, CN's II-XI intact bilaterally and moves all extremities Psychiatric: A+Ox3, euthymic affect Skin: no rashes, normal color, warm/dry Results & Data Results & Data Vital Signs (Past 12 Hours) Vital Signs Temp Pulse Resp BP Pulse Ox O2 Del Method O2 Flow Rate 07/25/23 13:58 36.7 C 91 H 18 135/58 L 96 Nasal Cannula 3 Laboratory Results Short CBC 07/25/23 Range/Units 14:25 WBC 9.53 (4.8-10.8) K/ul Hgb 6.9 L* (12.0-16.0) g/dl Hct 23.5 L (37.0-47.0) % Plt Count 309 (130-400) K/uL BMP 07/25/23 14:25 Sodium 139 Potassium 5.2 H Chloride 108 H Carbon Dioxide 28 BUN 21 Creatinine 1.51 H Glucose 111 H Calcium 7.3 L Liver Function 07/25/23 Range/Units 14:25 Total Bilirubin 0.2 (0.2-1.0) mg/dl AST 14 (13-39) U/L ALT 11 (7-52) U/L Alkaline Phosphatase 70 (34-104) U/L Albumin 3.4 (3.4-5.0) gm/dl Diagnostic Findings Chest X-Ray 07/25/23 14:00 XR chest 1V portable CLINICAL HISTORY: generalized weakness TECHNIQUE: Single frontal radiograph of the chest was obtained. Comparison: Comparison is made to chest radiograph 11/05/2021 FINDINGS: No lines and tubes are seen. Cardiomegaly is noted. The aortic arch is calcified. Faint bibasilar airspace opacities are seen. Interstitial thickening is seen. No evidence of pleural effusion or pneumothorax. IMPRESSION: Faint bibasilar airspace opacities which may represent atelectasis, pneumonia, and/or aspiration. ACT 112: Negative or not required by law. Electronically signed by: Yoel Elena M.D. 07/25/2023 3:54 PM ECG Additional Comments: EKG reviewed, sinus rhythm with first-degree block at 57 bpm Code Status & VTE Plan VTE Prophylaxis Plan VTE Prophylaxis will be ordered: Yes Supervising Physician Co-Signing Physician Notes Patient seen and examined. Reports progressive generalized weakness recently and lightheadedness over the past few weeks. Reports orthostatic dizziness. She states she stated that she was told that her ostomy output was darker. Exam notable for elderly woman in no distress, rhonchi on exam, on nasal cannula 3 L/min [chronic oxygen at baseline], ostomy bag Labs notable for hemoglobin of 6.9, MCV of 101, potassium of 5.2, creatinine of 1.51, magnesium of 2.6 Symptomatic anemia Rule out GI bleed Hold home xarelto for now GI consult Transfuse 1 PRBC Anemia workup Clears for now. NPO PMN I spent a total of 40 minutes coordinating, documenting and providing care for this patient excluding time spent in performance of separately billed services (1) Anemia Anemia type: unspecified type Qualified Code(s): D64.9 - Anemia, unspecified (3) GI (gastrointestinal bleed) GI bleed type/associated pathology: unspecified gastrointestinal hemorrhage type Qualified Code(s): K92.2 - Gastrointestinal hemorrhage, unspecified
[2023-07-25 15:50] LABS: INR 1.1 (0.9-1.1); Partial Thromboplastin Ratio 1.2; Partial Thromboplastin Time 33 Seconds (21-31); Prothrombin Time 11.8 Seconds (9.0-12.0)
--- NOTE | 2023-07-25 15:55 | XRay Report ---
XR chest 1V portable CLINICAL HISTORY: generalized weakness TECHNIQUE: Single frontal radiograph of the chest was obtained. Comparison: Comparison is made to chest radiograph 11/05/2021 FINDINGS: No lines and tubes are seen. Cardiomegaly is noted. The aortic arch is calcified. Faint bibasilar air space opacities are seen. Interstitial thickening is seen. No evidence of pleural effusion or pneumot horax. IMPRESSION: Faint bibasilar airspace opacities which may represent atelectasis, pneumonia, and/or aspiration. ACT 112: Negative or not required by law. Electronically signed by: Yoel Elena M.D. 07/25/2023 3:54 PM
[2023-07-25] MEDS ORDERED: SODIUM CHLORIDE 0.9% 250 ML IV PRN (16:17)
[2023-07-25] MEDS ORDERED: ALBUTEROL HFA 8 GM INHALER INH PRN (16:19)
[2023-07-25] MEDS ORDERED: ACETAMINOPHEN 325 MG TAB PO PRN (16:19)
[2023-07-25] MEDS ORDERED: VERAPAMIL HCL 240 MG TABCR PO STA (16:38)
[2023-07-25] MEDS ORDERED: FLECAINIDE ACETATE 100 MG TABLET PO ONE (16:39)
[2023-07-25] MEDS ORDERED: TRIAMCINOLONE ACET 0.1% OINT 15 GM TUBE EXT PRN (16:43)
[2023-07-25 17:20] LABS: Appearance Urine Turbid (Clear); Bacteria Urine Automated Negative (Negative); Bilirubin Urine Negative (Negative); Blood Urine 2+ (Negative); Color Urine Yellow; Glucose Urine UA Negative (Negative); Ketones Urine Negative (Negative); Leukocyte Esterase Urine 3+ (Negative); Nitrite Urine Negative (Negative); Protein Urine 1+ (Negative); RBC Urine Automated >30 /hpf (0-4); Specific Gravity Urine 1.012 (1.000-1.030); Urobilinogen Urine Negative (Negative); WBC Urine Automated >30 /hpf (0-5); pH Urine 7.5 (4.5-7.5)
[2023-07-25] MEDS ORDERED: ONDANSETRON INJ 2 MG/ML 2 ML VIAL IV PRN (17:45)
[2023-07-25] MEDS ORDERED: PANTOPRAZOLE BOLUS/DRIP IV STA (17:49)
[2023-07-25] MEDS ORDERED: PANTOprazole 80 MG in DEXTROSE 5% 100 ML IV ONE (17:49)
[2023-07-25] MEDS ORDERED: PANTOprazole 40 MG in DEXTROSE 5% MINI-B 100 ML IV SCH (18:15)
[2023-07-25 19:19] LABS: Reticulocyte % 5.2 % (0.50-2.00); Reticulocytes # 0.12 10^6/uL (0.020-0.100)
[2023-07-25] MEDS: BUDESONIDE 0.25 MG/2 ML VIAL (PULMICORT) INH SCH (20:14)
[2023-07-25] MEDS: ALBUT/IPRATROP 3MG/0.5MG NEB 3 ML VIAL INH PRN (20:21)
[2023-07-25] MEDS: FLECAINIDE ACETATE 100 MG TABLET PO SCH (20:41)
--- OUTSIDE RECORDS SUMMARY | 2023-07-25 20:57 | External Medical Summary | Summary of Care ---
Author Name Unknown Organization [facility] Address [address] [place] [address] Phone [phone] Care Team Providers Care Toe Former Stitchdowns Name Role Phone Tameka Hooper MD Primary Care Prov ider Reason for Visit * Reason Comments eRx-Medication Refill Encounter Details Date Type Department Care Team (Late st Contact Info) Description 07/05/2023 Refill Family Medicine [address] [phone] Tameka Hooper MD [address] [place] [address] [place] [address] Chronic atrial fibrillation (HCC); Major depressive disorder, single episode, unspecified; Dermatitis Allergies Active Allergy Reactions Criticality Noted Date Comments Amoxicillin Rash 02/07/2020 Bactrim Rash 12/15/2011 Ciprofloxacin Rash 12/15/2011 Diltiazem Rash 05/29/2019 Piroxicam Rash 12/15/2011 Cephalexin Rash 12/15/2011 Meloxicam Rash 05/29/2019 Other reaction(s): Other Cilostazol Rash,Unknown 12/15/2011 Sulfamethoxazole High 01/19/2023 Other Reaction(s): Rash Trimethoprim High 01/19/2023 Other Reaction(s): Rash documented as of this encounter (statuses as of 07/07/2023) Medications Medication Sig Dispensed Refills Start Date End Date Status [place]-3 Fatty Acids (FISH OIL) 500 MG Capsule Take by mouth. 0 Active PRESERVISION AREDS 2 PO CAPS 1 tab daily 0 Active SYSTANE 0.4-0.3 % OP SOLN as needed 0 Active guaiFENesin ER 600 MG Oral Tablet Extended Release 12 Hour Take 1 Tablet by mouth in the morning and 1 Tablet before bedtime. 0 Active ANORO ELLIPTA 62.5-25 MCG/INH AEPB 1 puff daily 0 01/26/2020 Active Vitamin C 500 MG Oral Tablet Chewable Take 1 Tablet by mouth in the morning. 30 Tab 5 04/20/2020 Active Restasis 0.05 % Ophthalmic Emulsion INSTILL 1 DROP INTO EACH EYE TWICE DAILY 0 11/14/2020 Active oxygen IN GAS Use 3 L/min(Oxygen) as directed. Use with activity and sleep and at rest if 02 sat <92% 0 Active Calcium 600 + D 600-200 MG-UNIT Oral Tablet (Calcium Carb-Cholecalcife rol) Take 1 Tab by mouth daily. 0 Active Prolia 60 MG/ML Subcutaneous Solution Prefilled Syringe Inject 60 mg under the skin every 6 months. 1 mL 0 03/15/2021 Active CPAP every night at bedtime. 0 Active Acetaminophen 325 MG Oral Tablet Take 1 Tablet by mouth every 6 hours as needed for Pain, Mild. Pt takes 1/2 tab daily 0 Active Fluticasone Propionate 50 MCG/ACT Nasal Suspension (Flonase) SPRAY 2 SPRAYS INTO EACH NOSTRIL EVERY DAY 48 mL 1 09/23/2021 Active Additional Information Patient not taking.Reported on 10/27/2022 Compressor NebulizerIndicati ons:COPD, moderate (HCC) Inhale via nebulizer . Use as directed. 1 Each 1 02/14/2022 Active Ipratropium-Albut donna 0.5-2.5 (3) MG/3ML Inhalation Solution (Duoneb)Indicatio ns:COPD, moderate (HCC) INHALE 1 VIAL VIA NEBULIZER EVERY 6 HOURS NEEDED FOR WHEEZING 360 mL 5 12/07/2022 Active Nystatin 576266 UNIT/GM External CreamIndications: Yeast dermatitis Apply topically to affected area 2 times a day. To affacted area for two weeks. 30 g 3 12/27/2022 Active Mesalamine 1.2 GM Oral Tablet Delayed Release (Lialda) TAKE BY MOUTH 3 TABLETS IN THE MORNING. 270 Tablet 3 01/02/2023 Active Meclizine HCl 12.5 MG Oral Tablet (Antivert)Indicat ions:Vertigo TAKE 1 TABLET BY MOUTH THREE TIMES A DAY FOR DIZZINESS 30 Tablet 3 01/02/2023 Active Additional Information Patient not taking.Reported on 02/28/2023 Estradiol 0.1 MG/GM Vaginal Cream (Estrace)Indicati ons:Postmenopausa l atrophic vaginitis Administer 2 g into the vagina in the morning. as directed.. 42.5 g 3 01/06/2023 Active Additional Information Patient not taking.Reported on 06/19/2023 Solifenacin Succinate 5 MG Oral Tablet (VESIcare)Indicat ions:Urge incontinence,Urin tangela frequency,Urinary urgency,Mixed incontinence Take 1 Tablet by mouth in the morning. 90 Tablet 3 03/20/2023 Active Lisinopril 2.5 MG Oral Tablet (Prinivil)Indicat ions:Essential (primary) hypertension Take 1 Tablet by mouth in the morning. 90 Tablet 3 03/29/2023 Active Xarelto 15 MG Oral Tablet (Rivaroxaban)Silvana cations:Chronic atrial fibrillation (HCC) TAKE 1 TABLET BY MOUTH EVERY DAY 90 Tablet 3 03/31/2023 Active Budesonide 0.25 MG/2ML Inhalation Suspension INHALE CONTENTS OF ONE VIAL (2ML) TWICE DAILY 0 02/03/2023 Active oxyBUTYnin Chloride ER 5 MG Oral Tablet Extended Release 24 Hour (Ditropan XL) TAKE 1 TABLET BY MOUTH EVERY DAY IN THE MORNING 0 Active Ferrous Sulfate 325 (65 Fe) MG Oral Tablet (Feosol) TAKE 1 TABLET BY MOUTH EVERY DAY WITH BREAKFAST 90 Tablet 1 05/11/2023 Active Albuterol Sulfate HFA 108 (90 Base) MCG/ACT Inhalation Aerosol SolutionIndicatio ns:COPD, moderate (HCC) INHALE 2 PUFFS BY MOUTH NEEDED FOR COUGH, SHORTNESS OF BREATH OR WHEEZING. 18 g 5 05/15/2023 Active Verapamil HCl ER 240 MG Oral Capsule Extended Release 24 HourIndications:C hronic atrial fibrillation (HCC) TAKE 1 CAPSULE BY MOUTH EVERY DAY 90 Capsule 1 07/06/2023 Active Flecainide Acetate 50 MG Oral Tablet (Tambocor)Indicat ions:Paroxysmal atrial fibrillation (HCC) TAKE 1 TABLET BY MOUTH TWICE A DAY 180 Tablet 3 07/05/2023 Active Escitalopram Oxalate 10 MG Oral Tablet (Lexapro)Indicati ons:Major depressive disorder, single episode, unspecified TAKE 1 TABLET BY MOUTH EVERY DAY 90 Tablet 1 07/06/2023 Active Triamcinolone Acetonide 0.5 % External Cream (Aristocort)Indic ations:Dermatitis APPLY TO AFFECTED AREA TWICE A DAY 60 g 5 07/07/2023 Active Triamcinolone Acetonide 0.5 % External CreamIndications: Dermatitis APPLY TO AFFECTED AREA TWICE A DAY 60 g 5 11/19/2021 07/07/19 24 Discontinued Escitalopram Oxalate 10 MG Oral Tablet (Lexapro)Indicati ons:Major depressive disorder, single episode, unspecified TAKE 1 TABLET BY MOUTH EVERY DAY 90 Tablet 3 07/14/2022 07/06/19 24 Discontinued Verapamil HCl ER 240 MG Oral Capsule Extended Release 24 HourIndications:C hronic atrial fibrillation (HCC) TAKE 1 CAPSULE BY MOUTH EVERY DAY 90 Capsule 1 11/15/2022 07/06/19 24 Discontinued documented as of this encounter (statuses as of 07/07/2023) Active Problems Problem Noted Date Diagnosed Date Hx of actinic keratosis 05/22/2023 Overview: Efudex (nose/upper lip 04/24) Other specified peripheral vascular diseases Hypertensive kidney disease with stage 3b chronic kidney disease 12/13/2022 COPD, group B, by GOLD 2017 classification 08/15 Overview: Per COPD GOLD Classification Essential (primary) hypertension 08/12/2022 History of healed osteoporosis fracture 03/24/20 Overview: Vertebra Major depressive disorder wi th single episode, in full remission 09/30/2021 Hypoparathyroidism 09/30/2021 Chronic hypoxemic respiratory failure 09/30/2021 Senile osteoporosis 03/26/2021 Stage 3b chronic kidney disease 07/13/2020 Overview: Per CKD protocol - Per CKD protocol - Per CKD protocol DDD (degenerative disc disease), lumbar 02/07/20 Chronic bilateral low back pain without sciatica 02/04/2020 Major depressive disorder, single episode, unspe cified 07/10/2019 Macular degeneration 05/29/2019 S/P bilateral cataract extraction 05/29/2019 Colostomy status 05/29/2019 Paroxysmal atrial fibrillation 05/29/2019 H/O resection of large bowel 05/29/2019 Diverticulosis of large intestine without hemorr angelica 05/29/2019 Mixed hyperlipidemia 05/29/2019 Tobacco use disorder 05/29/2019 FRANCIS and COPD overlap syndrome 12/15/2011 documented as of this encounter (statuses as of 07/07/2023) Resolved Problems Problem Noted Date Diagnosed Date Resolved Date Actinic keratosis 04/26/2022 05/22/2023 Prediabetes 03/15/2021 12/16/2021 Overview: Per Prediabetes protocol Other specified peripheral vascular diseases 08/12/2022 Age-related osteoporosis wit hout current pathological fracture 08/07/2020 09/08/2020 Stage 3a chronic kidney disease 05/11/2020 07/16/2020 Overview: Per CKD protocol - Per CKD protocol Kidney disease, chronic, sta ge III (GFR 30-59 ml/min) 02/10/2020 05/14/2020 Overview: Per CKD protocol Age-related osteoporosis wit h current pathological fracture 02/07/2020 03/26/2021 Fracture of vertebra due to osteoporosis with routine healing 02/07/2020 03/24/2022 Essential (primary) hypertension 07/10/2019 07/15/2021 Age-related osteoporosis wit hout current pathological fracture 07/10/2019 02/07/2020 COPD, moderate 12/15/2011 08/17/2022 Overview: Per COPD GOLD Classification Glaucoma 12/15/2011 07/10/2019 documented as of this encounter (statuses as of 07/07/2023) Immunizations Name Administration Dates Next Due COVID-19 mRNA, LNP-s, No Pre serve, 2-Dose Series (Moderna) 10/20/2020,09/15/2020 COVID-19, mRNA, LNP-s, PF, B ooster, 100mcg/0.5mg (Moderna) 06/01/2021 Pneumococcal Conjugate Vacc, 13 Valent (Prevnar) 05/16/2016,12/01/2014 Pneumococcal Polysaccharide PPV23 (Pneumovax) ,05/20/2010 TD, Preservative Free 09/01/1998 documented as of this encounter Social History Tobacco Use Types Packs/Day Years Used Date Smoking Tobacco: Every Day Cigarettes 0.3 60 Smokeless Tobacco: Never Comments:5/day currently , p t is willing to try and quit. Alcohol Use Standard Drinks/Week Comments No 0 (1 standard drink = 0.6 oz pur e alcohol) PHQ-2 Answer Date Recorded PHQ Adult Total Score 4 08/11/2022 Hunger Vital Sign Answer Date Recorded Within the past 12 months, y ou worried that your food would run out before you got the money to buy more. Never true 08/11/19 23 Within the past 12 months, t he food you bought just didn't last and you didn't have money to get more. Never true 08/11/2022 Sex and Gender Information Value Date Recorded Sex Assigned at Female 08/11/2021 12:39 PM EST Gender Identity Female 08/11/2021 12:39 PM EST Sexual Orientation Straight 08/11/2021 12 :39 PM EST Job Start Date Occupation Industry Not on file Not on file Not on file documented as of this encounter Miscellaneous Notes * Telephone Encounter - Tameka Hooper MD - 07/07/2023 8:22 AM EST Signed Prescriptions: Disp Refills Verapamil HCl ER 240 MG Oral Capsule Exten*90 Cap*1 Sig: TAKE 1 CAPSULE BY MOUTH EVERY DAY Authorizing Provider: TAMEKA HOOPER Ordering User: GABRIEL JONES Escitalopram Oxalate 10 MG Oral Tablet (Le*90 Tab*1 Sig: TAKE 1 TABLET BY MOUTH EVERY DAY Authorizing Provider: TAMEKA HOOPER Ordering User: GABRIEL JONES Triamcinolone Acetonide 0.5 % External Cre*60 g 5 Sig: APPLY TO AFFECTED AREA TWICE A DAY Authorizing Provider: TAMEKA HOOPER * Telephone Encounter - Gabriel Jones [facility] - 07/06/2023 2:32 PM EST Pending Prescriptions: Disp Refills Triamcinolone Acetonide 0.5 % External Cre*60 g 5 Sig: APPLY TO AFFECTED AREA TWICE A DAY Signed Prescriptions: Disp Refills Verapamil HCl ER 240 MG Oral Capsule Exten*90 Cap*1 Sig: TAKE 1 CAPSULE BY MOUTH EVERY DAY Authorizing Provider: TAMEKA HOOPER Ordering User: GABRIEL JONES Escit alopram Oxalate 10 MG Oral Tablet (Le*90 Tab*1 Sig: TAKE 1 TABLET BY MOUTH EVERY DAY Authorizing Provider: TAMEKA HOOPER Ordering User: GABRIEL JONES * Telephone Encounter - Gabriel Jones [facility] - 07/06/2023 2:[address] [facility] is currently not authorized to approve refills for the pended medication(s) per refill protocol. Please approve if appropriate. Thank You, Gabriel Jones, Pharm-D Clinical Pharmacist [facility] [phone] 07/06/2023, 2:31 PM Did you pend patient's preferred pharmacy and medication before forwarding?yes Pharmacy: [facility] #[id number] Pending Prescriptions: Disp Refills Triamcinolone Acetonide 0.5 % External Cr*60 g 5 Sig: APPLY TO AFFECTED AREA TWICE A DAY Signed Prescriptions: Disp Refills Verapamil HCl ER 240 MG Oral Capsule Exten*90 Cap*1 Sig: TAKE 1 CAPSULE BY MOUTH EVERY DAY Authorizing Provider: TAMEKA HOOPER Ordering User: GABRIEL JONES Escitalopram Oxalate 10 MG Oral Tablet (Le*90 Tab*1 Sig: TAKE 1 TABLET BY MOUTH EVERY DAY Authorizing Provider: TAMEKA HOOPER Ordering User: GABRIEL JONES Last Visit: 02/28/2023 (in office), Visit date not found (telemedicine) Next Visit: 08/08/2023 If no future appointments scheduled, and last appointment is greater than a year ago, please schedule patient for a follow-up appointment Last date the medication was ordered: 11/19/2022 Is this request for a controlled substance?No Urine Drug Screen:No results found for this or any previous visit. Patient Phone Numbers Labs: Lab Results Component Value Date/Time CREAT 1.6 (H) 02/14/2023 12:49 PM CREAT 1.29 (A) 12/10/2020 12:00 AM CREAT 1.3 (H) 07/27/2020 12:40 PM POTASSIUM 4.9 02/14/2023 12:49 PM POTASSIUM 4.5 12/10/2020 12:00 AM POTASSIUM 4.2 07/27/2020 12:40 PM TSH 2.91 02/08/2021 11:10 AM TSH 2.120 12/08/2020 12:00 AM TSH 2.11 02/04/2020 03:11 PM LDLCALC 84 12/27/2022 02:11 PM LDLCALC 61 12/21/2018 06:00 AM ALT 11 03/10/2022 02:38 PM ALT 16 02/04/2020 03:11 PM HGBA1C 6.1 (H) 02/08/2021 11:10 AM HGBA1C 4.8 12/21/2018 06:00 AM documented in this encounter Plan of Treatment Upcoming Encounters Date Type Department Care Team (Late st Contact Info) Description 08/08/2023 10:40 AM EST Office Visit Family Medicine [address] [place] [phone] Tameka Hooper MD [address] [place] [address] [place] [address] 08/14/2023 2:00 PM EST Nurse Only Ancillary [address] [place] [address] [place], Nurse [address] [place] [address] 09/01/2023 12:00 PM EST Office Visit Sleep Disorders Ctr [facility] [address] [place] [phone] Lynn Busby, DO [address] [place] [address] 10/23/2023 2:30 PM EDT Office Visit Rheumatology [address] [place] [phone] Jessica Stubbs CRNP [address] [place] [address] [place] [address] 10/31/2023 1:00 PM EDT Cardiac Studies Cardiac Studies, [facility] [address] [place] [address] 11/01/2023 8:30 AM EDT Procedure Only Endoscopy, [facility] [address] [place] [address] Gasper Kim, DO [address] [place] [address] 11/14/2023 12:20 PM EDT [facility] [address] [place] [address] Gasper Kim, DO [address] [place] [address] 03/26/2024 1:30 PM EDT Office Visit Nephrology [address] [place] [address] Ayana Anna PA-C [address] [place] [address] 05/01/2024 3:00 PM EDT Office Visit Dermatology [address] [place] [address] Anya Pratt PA-C [address] [place] [address] [place] [address] Health Maintenance Due Date Last Done Comments DISCUSS TOBACCO CESSATION (REFER TO SMARTSET #6471) 1940 COVID-19 Vaccine ( season) 2023 06/01/2021, 10/20/2020, 09/15/2020 Influenza Vaccine (FLU shot) (#1) 2023 Depression Screening 08/11/2023 08/11/2022 Albumin/Creatinine Ratio 08/15/2023 08/15/2022, 01/31 GFR 08/17/2023 02/14/2023, 12/02, 08/12/2022, Additional history exists CKD PHOS USE SMARTSET 73623 12/28/202312/02, 04/26/2022, 11/23/2021, Additional history exists CKD HGB USE SMARTSET 11716 02/29/202402/28, 02/28/2023, 02/14/2023, Additional history exists O2 ASSESSMENT COMPLETED IN PAST YEAR FOR COPD 02/29/2024 02/28/2023 DXA Scan 08/01/2024 08/01/2022, 10/2020, 11/21/2013 COLONOSCOPY-EVERY 5 YRS AGES 18-100 02/23/2027 02/23/2022, 08/01/2019, 08/01/2019 DTaP,Tdap,and Td Vaccines (2 - Td or Tdap) 08/07/2030 08/07/2020 (Not indicated), 09/01/1998 Pneumococcal Vaccine: 65+ Years Completed 05/16/2016, 12/01/2014, 12/01/2013, Additional history exists VITAMIN D LEVEL ONCE IN A LIFETIME-USE SMARTSET# 32707 Completed 12/27/2022, 08/12/2022, 03/15/2022, Additional history exists Zoster Vaccines Discontinued 12/28/2022 Alpha-1 Antitrypsin Discontinued GARDASIL-HPV IMMUNIZATION SERIES Aged Out No longer eligible based on patient's age to complete this topic Hepatitis B Aged Out No longer eligi ble based on patient's age to complete this topic MENINGOCOCCAL (MENACTRA/MENVEO) Aged Out No longer eligible based on patient's age to complete this topic documented as of this encounter Medical Devices Not on filedocumented as of this encounter Visit Diagnoses Diagnosis Chronic atrial fibrillation (HCC) Atrial fibrillation Major depressive disorder, single episode, unspecified Dermatitis Contact dermatitis and other eczema, due to unspecified cause documented in this encounter Care Teams Toe Former Stitchdowns Relationship Specialty Start Date End Date Tamkea Hooper MD [address] [place] [address] [place] [address] PCP - General Family Medicine 05/29/19 documented as of this encounter
--- OUTSIDE RECORDS SUMMARY | 2023-07-25 20:57 | External Medical Summary | Summary of Care ---
Author Name Unknown Organization [facility] Address [address] [place] [address] Phone [phone] Care Team Providers Care Packing Machine Operator Name Role Phone Tameka Hooper MD Primary Care Prov ider Reason for Visit * Reason Comments eRx-Medication Refill Encounter Details Date Type Department Care Team (Late st Contact Info) Description 07/05/2023 Refill Cardiology, [facility] [address] [facility] [place] [phone] Lor Barcenas Cassidy, DO [address] [place] [address] Paroxysmal atrial fibrillation (HCC) Allergies Active Allergy Reactions Criticality Noted Date Comments Amoxicillin Rash 02/07/2020 Bactrim Rash 12/15/2011 Ciprofloxacin Rash 12/15/2011 Diltiazem Rash 05/29/2019 Piroxicam Rash 12/15/2011 Cephalexin Rash 12/15/2011 Meloxicam Rash 05/29/2019 Other reaction(s): Other Cilostazol Rash,Unknown 12/15/2011 Sulfamethoxazole High 01/19/2023 Other Reaction(s): Rash Trimethoprim High 01/19/2023 Other Reaction(s): Rash documented as of this encounter (statuses as of 07/05/2023) Medications Medication Sig Dispensed Refills Start Date End Date Status [place]-3 Fatty Acids (FISH OIL) 500 MG Capsule [...] Additional Information Patient not taking.Reported on 10/27/2022 Triamcinolone Acetonide 0.5 % External CreamIndications: Dermatitis APPLY TO AFFECTED AREA TWICE A DAY 60 g 5 11/19/2021 Active Compressor NebulizerIndicati ons:COPD, moderate (HCC) Inhale via nebulizer . Use as directed. 1 Each 1 02/14/2022 Active Escitalopram Oxalate 10 MG Oral Tablet (Lexapro)Indicati ons:Major depressive disorder, single episode, unspecified TAKE 1 TABLET BY MOUTH EVERY DAY 90 Tablet 3 07/14/2022 Active Verapamil HCl ER 240 MG Oral Capsule Extended Release 24 HourIndications:C hronic atrial fibrillation (HCC) TAKE 1 CAPSULE BY MOUTH EVERY DAY 90 Capsule 1 11/15/2022 Active Ipratropium-Albut donna 0.5-2.5 (3) MG/3ML Inhalation Solution (Duoneb)Indicatio ns:COPD, moderate (HCC) INHALE 1 VIAL VIA NEBULIZER EVERY 6 HOURS NEEDED FOR WHEEZING 360 mL 5 12/07/2022 Active Nystatin 098089 UNIT/GM External CreamIndications: Yeast dermatitis Apply topically [...] OR WHEEZING. 18 g 5 05/15/2023 Active Flecainide Acetate 50 MG Oral Tablet (Tambocor)Indicat ions:Paroxysmal atrial fibrillation (HCC) TAKE 1 TABLET BY MOUTH TWICE A DAY 180 Tablet 3 07/05/2023 Active Flecainide Acetate 50 MG Oral Tablet (Tambocor)Indicat ions:Paroxysmal atrial fibrillation (HCC) TAKE 1 TABLET BY MOUTH TWICE A DAY 180 Tablet 3 07/15/2022 07/05/19 24 Discontinued documented as of this encounter (statuses as of 07/05/2023) Active Problems Problem Noted Date Diagnosed Date Hx of actinic keratosis 05/22/2023 Overview: Efudex (nose/upper lip 04/24) Other specified peripheral vascular diseases Hypertensive kidney disease with stage 3b chronic kidney disease 12/13/2022 COPD, group B, by GOLD 2017 classification 08/15 Overview: Per COPD GOLD Classification Essential (primary) hypertension 08/12/2022 History of healed osteoporosis fracture 03/24/20 22 Overview: Vertebra Major depressive disorder wi th single episode, in full remission 09/30/2021 Hypoparathyroidism 09/30/2021 Chronic hypoxemic respiratory failure 09/30/2021 Senile osteoporosis 03/26/2021 Stage 3b chronic kidney disease 07/13/2020 Overview: Per CKD protocol - Per CKD protocol - Per CKD protocol DDD (degenerative disc disease), lumbar 02/07/20 20 Chronic bilateral low back pain without sciatica [...] as of this encounter (statuses as of 07/05/2023) Resolved Problems Problem Noted Date Diagnosed Date Resolved Date Actinic keratosis 04/26/2022 05/22/2023 Prediabetes 03/15/2021 12/16/2021 Overview: Per Prediabetes protocol Other specified peripheral vascular diseases 1 08/12/2022 Age-related osteoporosis wit hout current pathological [...] as of this encounter (statuses as of 07/05/2023) Immunizations Name Administration Dates Next Due COVID-19 [...] encounter Miscellaneous Notes * Telephone Encounter - Maris Yates PA-C - 07/05/2023 3:36 PM EST Signed Prescriptions: Disp Refills Flecainide Acetate 50 MG Oral Tablet (Tamb*180 Ta*3 Sig: TAKE 1 TABLET BY MOUTH TWICE A DAY Authorizing Provider: MARIS YATES * Telephone Encounter - Vannessa Amezcua LPN - 07/05/2023 3:18 PM ESTPending Prescriptions: Disp Refills Flecainide Acetate 50 MG Oral Tablet [Phar*180 Ta*3 Sig: TAKE 1 TABLET BY MOUTH TWICE A DAY * Telephone Encounter - Vannessa Amezcua LPN - 07/05/2023 3:18 PM EST Pending Prescriptions: Disp Refills Flecainide Acetate 50 MG Oral Tablet (Bell*180 Ta*3 Sig: TAKE 1 TABLET BY MOUTH TWICE A DAY documented in this encounter Plan of Treatment Upcoming Encounters Date Type Department Care Team (Late st Contact Info) Description 08/08/2023 10:40 AM EST Office Visit Family Medicine [address] [place] [phone] Tameka Hooper MD [address] [place] [address] [place] [address] 08/14/2023 2:00 PM EST Nurse Only Ancillary [address] [place] [address] [place], Nurse Annual [address] [place] [address] 09/01/2023 12:00 PM EST Office Visit Sleep Disorders Ctr [facility] 132 [facility] [place] [phone] Lynn Busby DO 132 [facility] [place] [address] 10/23/2023 2:30 PM EDT Office Visit Rheumatology [address] [place] [phone] Jessica Stubbs CRNP [facility] [place] [address] 10/31/2023 1:00 PM EDT Cardiac Studies Cardiac Studies, [facility] 132 [facility] [place] [address] 11/01/2023 8:30 AM EDT Procedure Only Endoscopy, [facility] [address] [place] [address] Gasper Kim, DO [address] [place] [address] 11/14/2023 12:20 PM EDT Office Visit Gastroenterology, [facility] [address] [place] [address] Gasper Kim, DO [address] [place] [address] 03/26/2024 1:30 PM EDT Office Visit Nephrology [address] [place] [address] Zemaitis, Ayana Kirkpatrick PA-C [address] [place] [address] 05/01/2024 3:00 PM EDT Office Visit Dermatology [address] [place] [address] TerenceAnya denise PA-C [address] [place] [address] [place] [address] Health Maintenance Due Date Last Done Comments DISCUSS TOBACCO CESSATION (REFER TO SMARTSET #7319) 1942 COVID-19 Vaccine ( season) 2023 06/01/2021, 10/20/2020, 09/15/2020 Influenza Vaccine (FLU shot) (#1) 2023 Depression Screening 08/11/2023 08/11/2022 Albumin/Creatinine Ratio 08/15/2023 08/15/2022, 01/31 GFR 08/17/2023 02/14/2023, 12/02, 08/12/2022, Additional history exists CKD PHOS USE SMARTSET 48900 12/28/202312/02, 04/26/2022, 11/23/2021, Additional history exists CKD HGB USE SMARTSET 64062 02/29/202402/28, 02/28/2023, 02/14/2023, Additional history exists O2 ASSESSMENT COMPLETED IN PAST YEAR FOR COPD 02/29/2024 02/28/2023 DXA Scan 08/01/2024 08/01/2022, 10/2020, 11/21/2013 COLONOSCOPY-EVERY 5 YRS AGES 18-100 02/23/2027 02/23/2022, 08/01/2019, 08/01/2019 DTaP,Tdap,and Td Vaccines (2 - Td or Tdap) 08/07/2030 08/07/2020 (Not indicated), 09/01/1998 Pneumococcal Vaccine: 65+ Years Completed 05/16/2016, 12/01/2014, 12/01/2013, Additional history exists VITAMIN D LEVEL ONCE IN A LIFETIME-USE SMARTSET# 05879 Completed 12/27/2022, 08/12/2022, 03/15/2022, Additional history exists [...] as of this encounter Visit Diagnoses Diagnosis Paroxysmal atrial fibrillation (HCC) Atrial fibrillation documented in this encounter Care Teams Packing Machine Operator Relationship Specialty Start Date End Date Tameka Hooper MD [address] [place] [address] [place] [address] PCP - General Family Medicine 05/29/19 documented as of this encounter
--- OUTSIDE RECORDS SUMMARY | 2023-07-25 20:58 | External Medical Summary | Summary of Care ---
Author Name Unknown Organization [facility] Address [address] [place] [address] Phone [phone] Care Team Providers Care Data Warehousing Engineer Name Role Phone Tameka Hooper MD Primary Care Prov ider Reason for Visit * Reason Onset Date Comments Medication Refill 03/20/2023 Encounter Details Date Type Department Care Team (Late st Contact Info) Description 03/20/2023 Refill [facility] [address] [place] [address] Bel Villa PA-C [address] [place] [address] Urge incontinence; Urinary frequency; Urinary urgency; Mixed incontinence Allergies Active Allergy Reactions Criticality Noted Date Comments Amoxicillin Rash 02/07/2020 Bactrim Rash 12/15/2011 Ciprofloxacin Rash 12/15/2011 Diltiazem Rash 05/29/2019 Piroxicam Rash 12/15/2011 Cephalexin Rash 12/15/2011 Meloxicam Rash 05/29/2019 Other reaction(s): Other Cilostazol Rash,Unknown 12/15/2011 Sulfamethoxazole High 01/19/2023 Other Reaction(s): Rash Trimethoprim High 01/19/2023 Other Reaction(s): Rash documented as of this encounter (statuses as of 06/05/2023) Medications Medication Sig Dispensed Refills Start Date End Date Status [place]-3 Fatty Acids (FISH OIL) 500 MG Capsule [...] 62.5-25 MCG/INH AEPB 1 puff daily 0 0 Active Vitamin C 500 MG Oral Tablet Chewable Take 1 Tablet by mouth in the morning. 30 Tab 5 0 Active Restasis 0.05 % Ophthalmic Emulsion INSTILL 1 DROP INTO EACH EYE TWICE DAILY 0 1 Active oxygen IN GAS Use 3 L/min(Oxygen) as directed. Use with activity and sleep and at rest if 02 sat <92% 0 Active Calcium 600 + D 600-200 MG-UNIT Oral Tablet (Calcium Carb-Cholecalcif donna) Take 1 Tab by mouth daily. 0 Active Prolia 60 MG/ML Subcutaneous Solution Prefilled Syringe Inject 60 mg under the skin every 6 months. 1 mL 0 1 Active CPAP every night at bedtime. 0 Active Acetaminophen 325 MG Oral Tablet Take 1 Tablet by mouth every 6 hours as needed for Pain, Mild. Pt takes 1/2 tab daily 0 Active Fluticasone Propionate 50 MCG/ACT Nasal Suspension (Flonase) SPRAY 2 SPRAYS INTO EACH NOSTRIL EVERY DAY 48 mL 1 2 Active Additional Information Patient not taking.Reported on 10/27/2022 Triamcinolone Acetonide 0.5 % External CreamIndications :Dermatitis APPLY TO AFFECTED AREA TWICE A DAY 60 g 5 2 Active Compressor NebulizerIndicat ions:COPD, moderate (HCC) Inhale via nebulizer . Use as directed. 1 Each 1 2 Active Escitalopram Oxalate 10 MG Oral Tablet (Lexapro)Indicat ions:Major depressive disorder, single episode, unspecified TAKE 1 TABLET BY MOUTH EVERY DAY 90 Tablet 3 3 Active Flecainide Acetate 50 MG Oral Tablet (Tambocor)Indica tions:Paroxysmal atrial fibrillation (HCC) TAKE 1 TABLET BY MOUTH TWICE A DAY 180 Tablet 3 3 Active Verapamil HCl ER 240 MG Oral Capsule Extended Release 24 HourIndications: Chronic atrial fibrillation (HCC) TAKE 1 CAPSULE BY MOUTH EVERY DAY 90 Capsule 1 3 Active Ipratropium-Albu terol 0.5-2.5 (3) MG/3ML Inhalation Solution (Duoneb)Indicati ons:COPD, moderate (HCC) INHALE 1 VIAL VIA NEBULIZER EVERY 6 HOURS NEEDED FOR WHEEZING 360 mL 5 3 Active Nystatin 481293 UNIT/GM External CreamIndications :Yeast dermatitis Apply topically to affected area 2 times a day. To affacted area for two weeks. 30 g 3 3 Active Mesalamine 1.2 GM Oral Tablet Delayed Release (Lialda) TAKE BY MOUTH 3 TABLETS IN THE MORNING. 270 Tablet 3 3 Active Meclizine HCl 12.5 MG Oral Tablet (Antivert)Indica tions:Vertigo TAKE 1 TABLET BY MOUTH THREE TIMES A DAY FOR DIZZINESS 30 Tablet 3 3 Active Additional Information Patient not taking.Reported on 02/28/2023 Estradiol 0.1 MG/GM Vaginal Cream (Estrace)Indicat ions:Postmenopau brenda atrophic vaginitis Administer 2 g into the vagina in the morning. as directed.. 42.5 g 3 3 Active Solifenacin Succinate 5 MG Oral Tablet (VESIcare)Indica tions:Urge incontinence,Uri nary frequency,Urinar y urgency,Mixed incontinence Take 1 Tablet by mouth in the morning. 90 Tablet 3 3 Active Xarelto 15 MG Oral Tablet (Rivaroxaban)Ind ications:Chronic atrial fibrillation (HCC) TAKE 1 TABLET BY MOUTH EVERY DAY 90 Tablet 3 2 03/31/20 23 Discontinued Ferrous Sulfate 325 (65 Fe) MG Oral Tablet (Feosol) TAKE 1 TABLET BY MOUTH EVERY DAY WITH BREAKFAST 90 Tablet 1 3 05/11/20 23 Discontinued ProAir HFA 108 (90 Base) MCG/ACT Inhalation Aerosol SolutionIndicati ons:COPD, moderate (HCC) Inhale 2 Puffs by mouth as needed for Cough, Shortness of Breath or Wheezing. 18 g 5 3 05/15/20 23 Discontinued Cefdinir 300 MG Oral Capsule (Omnicef)Indicat ions:Acute cystitis without hematuria Take 1 Capsule by mouth in the morning and 1 Capsule before bedtime. Until gone.. 10 Capsule 0 3 04/07/20 23 Discontinued(Med ication List Clean Up) Solifenacin Succinate 5 MG Oral Tablet (VESIcare)Indica tions:Mixed incontinence,Uri nary frequency,Urge incontinence,Uri nary urgency Take 1 Tablet by mouth in the morning. 30 Tablet 0 3 03/20/20 23 Discontinued(Ref ill) Lisinopril 2.5 MG Oral Tablet (Prinivil) Take 1 Tablet by mouth in the morning. 30 Tablet 11 3 03/28/20 23 Discontinued(Ref ill) Fluorouracil 5 % External Cream (Efudex)Indicati ons:Actinic keratosis Start 03/20/23: apply thin layer to nose and upper lip 2x daily until 04/10/23 2:20pm derm appointment 40 g 0 3 05/22/20 23 Discontinued documented as of this encounter (statuses as of 06/05/2023) Active Problems Problem Noted Date Diagnosed Date [...] as of this encounter (statuses as of 06/05/2023) Resolved Problems Problem Noted Date Diagnosed Date [...] as of this encounter (statuses as of 06/05/2023) Immunizations Name Administration Dates Next Due COVID-19 [...] encounter Miscellaneous Notes * Telephone Encounter - Bel Villa PA-C - 03/20/2023 2:03 PM EDT * Telephone Encounter - Bel Villa PA-C - 03/20/2023 2:03 PM EDTSigned Prescriptions: Disp Refills Solifenacin Succinate 5 MG Oral Tablet (VE*90 Tab*3 Sig: Take 1 Tablet by mouth in the morning. Authorizing Provider: BEL VILLA * Telephone Encounter - Tameka Sauer OSA - 03/20/2023 12:24 PM EDT Received 90 day supply refill request via fax from [facility] pharmacy for medication Solifenacin 5mg Patient last seen 02/03/2023 Future appt Visit date not found documented in this encounter Plan of Treatment Upcoming Encounters Date Type Department Care Team (Late st Contact Info) Description 06/19/2023 2:20 PM EST Office Visit Nephrology [address] [place] [address] Nicoel Lange MD [address] [facility] [place] [address] 08/08/2023 10:40 AM EST Office Visit Family Medicine [address] [place] [phone] Tameka Hooper MD [address] [place] [address] [place] [address] 08/14/2023 2:00 PM EST Nurse Only Ancillary [address] [place] [address] [place], Nurse Annual [address] [place] [address] 09/01/2023 12:00 PM EST Office Visit Sleep Disorders Ctr [facility] [address] [place] [phone] Lynn Busby DO [address] [place] [address] 10/23/2023 2:30 PM EDT Office Visit Rheumatology [address] [place] [phone] Jessica Stubbs CRNP [address] [place] [address] [place] [address] 10/31/2023 1:00 PM EDT [facility] [address] [place] [address] 05/01/2024 3:00 PM EDT Office Visit Dermatology [address] [place] [address] Anya Pratt PA-C [address] [place] [address] [place] [address] Scheduled Procedures Name Priority Associated Diagnoses Date/Ti me COLONOSCOPY FLEXIBLE PROXIMAL DIAGNOSTIC Recall History of colon polyps Health Maintenance Due Date Last Done Comments DISCUSS TOBACCO CESSATION (REFER TO SMARTSET #3291) 1942 COVID-19 Vaccine ( season) 2023 06/01/2021, 10/20/2020, 09/15/2020 Influenza Vaccine (FLU shot) (#1) 2023 Depression Screening 08/11/2023 08/11/2022 Albumin/Creatinine Ratio 08/15/2023 08/15/2022, 01/31 GFR 08/17/2023 02/14/2023, 12/02, 08/12/2022, Additional history exists CKD PHOS USE SMARTSET 73605 12/28/202312/02, 04/26/2022, 11/23/2021, Additional history exists CKD HGB USE SMARTSET 51047 02/29/202402/28, 02/28/2023, 02/14/2023, Additional history exists O2 ASSESSMENT COMPLETED IN PAST YEAR FOR COPD 02/29/2024 02/28/2023 DXA Scan 08/01/2024 08/01/2022, 10/2020, 11/21/2013 COLONOSCOPY-EVERY 5 YRS AGES 18-100 02/23/2027 02/23/2022, 08/01/2019, 08/01/2019 DTaP,Tdap,and Td Vaccines (2 - Td or Tdap) 08/07/2030 08/07/2020 (Not indicated), 09/01/1998 Pneumococcal Vaccine: 65+ Years Completed 05/16/2016, 12/01/2014, 12/01/2013, Additional history exists VITAMIN D LEVEL ONCE IN A LIFETIME-USE SMARTSET# [id number] Completed 12/27/2022, 08/12/2022, 03/15/2022, Additional history exists [...] as of this encounter Visit Diagnoses Diagnosis Urge incontinence Urinary frequency Urinary urgency Urgency of urination Mixed incontinence Mixed incontinence urge and stress (male)(female) documented in this encounter Care Teams Data Warehousing Engineer Relationship Specialty Start Date End Date Tameka Hooper MD [address] [place] [address] [place] [address] PCP - General Family Medicine 05/29/19 documented as of this encounter
--- OUTSIDE RECORDS SUMMARY | 2023-07-25 20:58 | External Medical Summary | Summary of Care ---
Author Name Unknown Organization [facility] Address [address] [place] [address] Phone [phone] Care Team Providers Care Supervisor Finishing Room Name Role Phone Tameka Leone MD Primary Care Prov ider Reason for Visit * Reason Comments eRx-Medication Refill Encounter Details Date Type Department Care Team (Late st Contact Info) Description 05/11/2023 Refill Family Medicine [address] [phone] Tameka Leone MD [address] [place] [address] [place] [address] Allergies Active Allergy Reactions Criticality Noted Date Comments Amoxicillin Rash 02/07/2020 Bactrim Rash 12/15/2011 Ciprofloxacin Rash 12/15/2011 Diltiazem Rash 05/29/2019 Piroxicam Rash 12/15/2011 Cephalexin Rash 12/15/2011 Meloxicam Rash 05/29/2019 Other reaction(s): Other Cilostazol Rash,Unknown 12/15/2011 Sulfamethoxazole High 01/19/2023 Other Reaction(s): Rash Trimethoprim High 01/19/2023 Other Reaction(s): Rash documented as of this encounter (statuses as of 05/11/2023) Medications Medication Sig Dispensed Refills Start Date End Date Status [place]-3 Fatty Acids (FISH OIL) 500 MG Capsule [...] EVERY DAY 90 Tablet 3 07/14/2022 Active Flecainide Acetate 50 MG Oral Tablet (Tambocor)Indicat ions:Paroxysmal atrial fibrillation (HCC) TAKE 1 TABLET BY MOUTH TWICE A DAY 180 Tablet 3 07/15/2022 Active Verapamil HCl ER 240 MG Oral Capsule Extended Release 24 HourIndications:C hronic atrial fibrillation (HCC) TAKE 1 CAPSULE BY MOUTH EVERY DAY 90 Capsule 1 11/15/2022 Active Ipratropium-Albut donna 0.5-2.5 (3) MG/3ML Inhalation Solution (Duoneb)Indicatio ns:COPD, moderate (HCC) INHALE 1 VIAL VIA NEBULIZER EVERY 6 HOURS NEEDED FOR WHEEZING 360 mL 12/07/2022 Active ProAir HFA 108 (90 Base) MCG/ACT Inhalation Aerosol SolutionIndicatio ns:COPD, moderate (HCC) Inhale 2 Puffs by mouth as needed for Cough, Shortness of Breath or Wheezing. 18 g 12/07/2022 Active Nystatin 258358 UNIT/GM External CreamIndications: Yeast dermatitis Apply topically to affected area 2 times a day. To affacted area for two weeks. 30 g 3 12/27/2022 Active Mesalamine 1.2 GM Oral Tablet Delayed Release (Lialda) TAKE BY MOUTH 3 TABLETS IN THE MORNING. 270 Tablet 01/02/2023 Active Meclizine HCl 12.5 MG Oral Tablet (Antivert)Indicat ions:Vertigo TAKE 1 TABLET BY MOUTH THREE TIMES A DAY FOR DIZZINESS 30 Tablet 01/02/2023 Active Additional Information Patient not taking.Reported on 02/28/2023 Estradiol 0.1 MG/GM Vaginal Cream (Estrace)Indicati ons:Postmenopausa l atrophic vaginitis Administer 2 g into the vagina in the morning. as directed.. 42.5 g 01/06/2023 Active Fluorouracil 5 % External Cream (Efudex)Indicatio ns:Actinic keratosis Start 03/20/23: apply thin layer to nose and upper lip 2x daily until 04/10/23 2:20pm derm appointment 40 g 0 03/15/2023 Active Solifenacin Succinate 5 MG Oral Tablet (VESIcare)Indicat [...] WITH BREAKFAST 90 Tablet 1 05/11/2023 Active Ferrous Sulfate 325 (65 Fe) MG Oral Tablet (Feosol) TAKE 1 TABLET BY MOUTH EVERY DAY WITH BREAKFAST 90 Tablet 1 11/15/2022 05/11/20 23 Discontinued documented as of this encounter (statuses as of 05/11/2023) Active Problems Problem Noted Date Diagnosed Date Other specified peripheral vascular diseases Hypertensive kidney disease with stage 3b chronic kidney disease 12/13/2022 COPD, group B, by GOLD 2017 classification 08/15 Overview: Per COPD GOLD Classification Essential (primary) hypertension 08/12/2022 Actinic keratosis 04/26/2022 History of healed osteoporosis fracture 03/24/20 22 [...] as of this encounter (statuses as of 05/11/2023) Resolved Problems Problem Noted Date Diagnosed Date Resolved Date Prediabetes 03/15/2021 12/16/2021 Overview: Per Prediabetes protocol [...] as of this encounter (statuses as of 05/11/2023) Immunizations Name Administration Dates Next Due COVID-19 [...] encounter Miscellaneous Notes * Telephone Encounter - Kimberley Webb [facility] - 05/11/2023 3:09 PM EST Signed Prescriptions: Disp Refills Ferrous Sulfate 325 (65 Fe) MG Oral Tablet*90 Tab*1 Sig: TAKE 1 TABLET BY MOUTH EVERY DAY WITH BREAKFASTAuthorizing Provider: TAMEKA LEONE User: KIMBERLEY WEBB documented in this encounter Plan of Treatment Upcoming Encounters Date Type Department Care Team (Late st Contact Info) Description 05/22/2023 1:20 PM EST Office Visit Dermatology [address] [place] [address] Anya Pratt PA-C [address] [place] [address] [place] [address] 06/19/2023 2:20 PM EST Office Visit Nephrology [address] [place] [address] Nicole Lange MD [address] [place] [address] [place] [address] 08/08/2023 5:20 PM EST Office Visit Family Medicine [address] [place] [phone] Tameka Leone MD [address] [place] [address] [place] [address] 08/14/2023 2:00 PM EST Nurse Only Ancillary [address] [place] [address] [place], Nurse Annual Wellness [address] [place] [address] [place] [address] 09/01/2023 12:00 PM EST [facility] [place] [phone] Lynn Busby DO [address] [facility] [place] [address] 10/23/2023 2:30 PM EDT Office Visit Rheumatology [address] [place] [phone] Jessica Stubbs, [place] [address] [place] [address] [place] [address] 10/31/2023 1:00 PM EDT Cardiac Studies [facility], [facility] [address] Scheduled Procedures Name Priority Associated Diagnoses Date/Ti me COLONOSCOPY FLEXIBLE PROXIMAL DIAGNOSTIC Recall History of colon polyps Health Maintenance Due Date Last Done Comments DISCUSS TOBACCO CESSATION (REFER TO SMARTSET #3291) 1940 COVID-19 Vaccine (2022- season) 2023 06/01/2021, 10/20/2020, 09/15/2020 Influenza Vaccine (FLU shot) (#1) 2023 Depression Screening 08/11/2023 08/11/2022 Albumin/Creatinine Ratio 08/15/2023 08/15/2022, 01/31 GFR 08/17/2023 02/14/2023, 12/02, 08/12/2022, Additional history exists CKD PHOS USE SMARTSET 54193 12/28/202312/02, 04/26/2022, 11/23/2021, Additional history exists CKD HGB USE SMARTSET 41337 02/29/202402/28, 02/28/2023, 02/14/2023, Additional history exists O2 ASSESSMENT COMPLETED IN PAST YEAR FOR COPD 02/29/2024 02/28/2023 DXA Scan 08/01/2024 08/01/2022, 10/2020, 11/21/2013 COLONOSCOPY-EVERY 5 YRS AGES 18-100 02/23/2027 02/23/2022, 08/01/2019, 08/01/2019 DTaP,Tdap,and Td Vaccines (2 - Td or Tdap) 08/07/2030 08/07/2020 (Not indicated), 09/01/1998 Pneumococcal Vaccine: 65+ Years Completed 05/16/2016, 12/01/2014, 12/01/2013, Additional history exists VITAMIN D LEVEL ONCE IN A LIFETIME-USE SMARTSET# 19993 Completed 12/27/2022, 08/12/2022, 03/15/2022, Additional history exists [...] Not on filedocumented as of this encounter Care Teams Supervisor Finishing Room Relationship Specialty Start Date End Date Tameka Leone MD [address] [place] [address] [place] [address] PCP - General Family Medicine 05/29/19 documented as of this encounter
--- OUTSIDE RECORDS SUMMARY | 2023-07-25 20:58 | External Medical Summary | Summary of Care ---
Author Name Unknown Organization [facility] Address [address] [place] [address] Phone [phone] Care Team Providers Care Health Education Teacher Name Role Phone Tameka Hooper MD Primary Care Prov ider Reason for Visit * Reason Comments Follow Up Efudex nose and uppe r lip [from 04/10/23 reschedule] Encounter Details Date Type Department Care Team (Late st Contact Info) Description 05/22/2023 1:20 PM EST Office Visit Dermatology [address] [place] [address] Anya Pratt PA-C [address] [place] [address] [place] [address] Hx of nonmelanoma skin cancer*; Actinic keratosis; Irritant contact dermatitis due to drug in contact with skin Allergies Active Allergy Reactions Criticality Noted Date Comments Amoxicillin Rash 02/07/2020 Bactrim Rash 12/15/2011 Ciprofloxacin Rash 12/15/2011 Diltiazem Rash 05/29/2019 Piroxicam Rash 12/15/2011 Cephalexin Rash 12/15/2011 Meloxicam Rash 05/29/2019 Other reaction(s): Other Cilostazol Rash,Unknown 12/15/2011 Sulfamethoxazole High 01/19/2023 Other Reaction(s): Rash Trimethoprim High 01/19/2023 Other Reaction(s): Rash documented as of this encounter (statuses as of 05/22/2023) Medications Medication Sig Dispensed Refills Start Date [...] WHEEZING 360 mL 5 12/07/2022 Active Nystatin 975615 UNIT/GM External CreamIndications: Yeast dermatitis Apply topically [...] as directed.. 42.5 g 3 01/06/2023 Active Solifenacin Succinate 5 MG Oral Tablet [...] OR WHEEZING. 18 g 5 05/15/2023 Active Fluorouracil 5 % External Cream (Efudex)Indicatio ns:Actinic keratosis Start 03/20/23: apply thin layer to nose and upper lip 2x daily until 04/10/23 2:20pm derm appointment 40 g 0 03/15/2023 05/22/20 Discontinued documented as of this encounter (statuses as of 05/22/2023) Active Problems Problem Noted Date Diagnosed Date [...] as of this encounter (statuses as of 05/22/2023) Resolved Problems Problem Noted Date Diagnosed Date [...] as of this encounter (statuses as of 05/22/2023) Immunizations Name Administration Dates Next Due COVID-19 [...] on file documented as of this encounter Patient Instructions * Patient Instructions* Anya Pratt PA-C - 05/22/2023 1:29 PM EST SUNSCREEN USE AND SUN PROTECTION: 1. The best protection is sun avoidance. Seek shade if you can, especially between 10am to 4pm (peak sun hours). 2. Use sunscreen with an SPF (Sun Protection Factor - the number on most sunscreen bottles) of 30 or more that protects from Ultraviolet A (UVA) and Ultraviolet B (UVB) wavelength light (strongly recommend SPF 50). This is referred to as broad spectrum sun protection because it protects from most wa velengths in both spectrums of UVA and UVB light. Unfortunately, even though the protection is broad it is not complete, therefore making sun avoidance the best protection. UVB and UVA have both beenimplicated in causing skin cancers. Older sunscreens only protected from UVB and sunscreens with added UVA protection should contain Titanium dioxide, Zinc oxide, or Avobenzone. Other oil free, non-comedogenic lotion with SPF 30 or greater is fine. 3. Use sun protection if outside for 15 minutes or more. Apply 20-30 minutes before going out and reapply every 1-2 hours. No sunscreen is truly water ''proof'' and it will wash away with sweat, swimming and rubbing. 4. Wear tightly woven, loose fitting (cooler) long sleeved clothing, UV-blocking sun glasses (eyes need protection as well) and wide-brimmed hatwear (no straw hats with holes because light still getsthrough). Strongly recommended *Neutrogena Pure and Free Baby SPF 60 (have separate face and body lotions) orCeraVe AM facial lotion (with SPF 30). If looking for non toxic alternatives-look for non-jazzmine particle zinc. Product examples; Think sport, Think baby, Gregory, [place]lock, Allegorithmic, [place] baby. "Baby" products can be used for all ages. documented in this encounter Progress Notes * Anya Pratt PA-C - 05/22/2023 1:20 PM EST SUBJECTIVE: History of Present Illness: Eliazar Beaulieu is a 83 year old female seen today for follow up of Efudex treatment. Last Office/Telemedicine Visit: 03/15/2023 Last attempted treatments include: Efudex 5% cream BID x 3 weeks to nose/upper lip border (d/c 04/10/23). Waist up exam 03/25 + mild itch, - burn, - sting. No flu like or other systemic symptoms. Scabs formed and Vaseline softened them up and resolved them. REVIEW OF SYSTEMS: SKIN: No other new or changing moles. HEME/LYMPH: No new or enlarging lumps or bumps. CONSTITUTIONAL: No nausea, vomiting, fevers, chills, diarrhea. No recent unintended weight loss, night sweats, appetite or malaise. RESP: negative MSK/EXT: Negative or as per HPI GI: negative CV: Negative or as per HPI Rest of systems are negative or as per HPI SKIN CANCER HX: nonmelanoma skin cancer- type unknown (Jacques jackson 1972), actinic keratoses (Efudex nose/upper lip 04/24) Reviewed all [facility] Dermatology pathology reports and clinic notes as well as those sent by referring provider prior to seeing pt. MEDICA TIONS: Current Outpatient Medications Medication Sig Dispense Refill [place]-3 Fatty Acids (FISH OIL) 500 MG Capsule Take by mouth. PRESERVISION AREDS 2 PO CAPS 1 tab daily SYSTANE 0.4-0.3 % OP SOLN as needed (Patient not taking: Reported on 02/28/2023) guaiFENesin ER 600 MG Oral Tablet Extended Release 12 Hour Take 1 Tablet by mouth in the morning and 1 Tablet before bedtime. ANORO ELLIPTA 62.5-25 MCG/INH AEPB 1 puff daily Vitamin C 500 MG Oral Tablet Chewable Take 1 Tablet by mouth in the morning. 30 Tab 5 Restasis 0.05 % Ophthalmic Emulsion INSTILL 1 DROP INTO EACH EYE TWICE DAILY oxygen IN GAS Use 3 L/min(Oxygen) as directed. Use with activity and sleep and at rest if 02 sat <92% Calcium 600 + D 600-200 MG-UNIT Oral Tablet (Calcium Carb-Cholecalciferol) Take 1 Tab by mouth daily. Prolia 60 MG/ML Subcutaneous Solution Prefilled Syringe Inject 60 mg under the skin every 6 months.1 mL 0 CPAP every night at bedtime. Acetaminophen 325 MG Oral Tablet Take 1 Tablet by mouth every 6 hours as needed for Pain, Mild. Pt takes 1/2 tab daily Fluticasone Propionate 50 MCG/ACT Nasal Suspension (Flonase) SPRAY 2 SPRAYS INTO EACH NOSTRIL EVERYDAY (Patient not taking: Reported on 10/27/2022) 48 mL 1 Triamcinolone Acetonide 0.5 % External Cream APPLY TO AFFECTED AREA TWICE A DAY 60 g 5 Compressor Nebulizer Inhale via nebulizer . Use as directed. 1 Each 1 Escitalopram Oxalate 10 MG Oral Tablet (Lexapro) TAKE 1 TABLET BY MOUTH EVERY DAY 90 Tablet 3 Flecainide Acetate 50 MG Oral Tablet (Tambocor) TAKE 1 TABLET BY MOUTH TWICE A DAY 180 Tablet 3 Verapamil HCl ER 240 MG Oral Capsule Extended Release 24 Hour TAKE 1 CAPSULE BY MOUTH EVERY DAY 90 Capsule 1 Ipratropium-Albuterol 0.5-2.5 (3) MG/3ML Inhalation Solution (Duoneb) INHALE 1 VIAL VIA NEBULIZER EVERY 6 HOURS NEEDED FOR WHEEZING 360 mL 5 Nystatin 641811 UNIT/GM External Cream Apply topically to affected area 2 times a day. To affacted area for two weeks. 30 g 3 Mesalamine 1.2 GM Oral Tablet Delayed Release (Lialda) TAKE BY MOUTH 3 TABLETS IN THE MORNING. 270 Tablet 3 Meclizine HCl 12.5 MG Oral Tablet (Antivert) TAKE 1 TABLET BY MOUTH THREE TIMES A DAY FOR DIZZINESS(Patient not taking: Reported on 02/28/2023) 30 Tablet 3 Estradiol 0.1 MG/GM Vaginal Cream (Estrace) Administer 2 g into the vagina in the morning. as directed.. 42.5 g 3 Solifenacin Succinate 5 MG Oral Tablet (VESIcare) Take 1 Tablet by mouth in the morning. 90 Tablet 3 Lisinopril 2.5 MG Oral Tablet (Prinivil) Take 1 Tablet by mouth in the morning. 90 Tablet 3 Xarelto 15 MG Oral Tablet (Rivaroxaban) TAKE 1 TABLET BY MOUTH EVERY DAY 90 Tablet 3 Budesonide 0.25 MG/2ML Inhalation Suspension INHALE CONTENTS OF ONE VIAL (2ML) TWICE DAILY oxyBUTYnin Chloride ER 5 MG Oral Tablet Extended Release 24 Hour (Ditropan XL) TAKE 1 TABLET BY MOUTH EVERY DAY IN THE MORNING Ferrous Sulfate 325 (65 Fe) MG Oral Tablet (Feosol) TAKE 1 TABLET BY MOUTH EVERY DAY WITH [id number] Tablet 1 Albuterol Sulfate HFA 108 (90 Base) MCG/ACT Inhalation Aerosol Solution INHALE 2 PUFFS BY MOUTH NEEDED FOR COUGH, SHORTNESS OF BREATH OR WHEEZING. 18 g 5 No current facility-administered medications for this visit. ALLERG IES: Sulfamethoxazole, Trimethoprim, Amoxicillin, Bactrim, Ciprofloxacin, Diltiazem, Feldene [piroxicam], Keflex [cephalexin], Meloxicam, and Pletal [cilostazol] OBJECT REJI: GEN: alert, no distress, appears oriented, pleasant, and cooperative in wheelchair. SKIN: Detailed exam of face including lids and lips completed: 1. Nose/upper lip border-No evidence of scaly papules, some mild post inflammatory erythema in treatment areas. ASSESS MENT/PLAN: 1. Irritant contact dermatitis (resolved) with mild post inflammatory erythema secondary to Efudex for actinic keratoses on nose/upper lip border-Pt already d/c medication and applied vaseline several times daily to treatment areas to keep them moist until resolved. Wear wide brim hat and sunscreenwith at least 50 SPF. Patient educated that redness will start to improve/resolve in months. Patient alone today. Photo(s) of #1 taken, pt verbally consented to having photo(s) taken. Follow-up: 03/26 for full skin exam Applicable photos (if any) and chart reviewed by Dr. oTny Gale. Presumed diagnoses, expected natural histories, and management options discussed with the patient at length. Questions were addressed and anticipatory guidance provided. They were instructed to contact me if additional questions, concerns, or problems develop in the interim. -There were no barriers to learning and no other pain was related to today's visit. The patient and/or person accompanying patient demonstrates understanding of the visit and treatment. Anya Pratt PA-C 05/22/2023 12:01 PM documented in this encounter Nursing Notes * Laurie Thakur LPN - 05/22/2023 1:26 PM EST Patient identified by full name and date of . Chief Complaint Patient presents with Follow Up Efudex nose and upper lip [from 04/10/23 reschedule] documented in this encounter Plan of Treatment Upcoming Encounters Date Type Department Care Team (Late st Contact Info) Description 06/19/2023 2:20 PM EST Office Visit Nephrology [address] [place] [address] Nicole Lange MD [address] [place] [address] [place] [address] 08/08/2023 5:20 PM EST Office Visit Family Medicine [address] [place] [phone] Tameka Hooper MD [address] [place] [address] [place] [address] 08/14/2023 2:00 PM EST Nurse Only Ancillary [address] [place] [address] [place], Nurse [address] [place] [address] 09/01/2023 12:00 PM EST Office Visit Sleep Disorders [facility] [address] [place] [phone] Lynn Busby, DO [address] [place] [address] 10/23/2023 2:30 PM EDT Office Visit Rheumatology [address] [place] [phone] Jessica Stubbs, MANAGER BABY [address] [facility] [place] [address] 10/31/2023 1:00 PM EDT Cardiac Studies Cardiac Studies, [facility] [address] [place] [address] 05/01/2024 3:00 PM EDT Office Visit Dermatology [address] [place] [address] Anya Pratt PA-C [address] [place] [address] [place] [address] Scheduled Procedures Name Priority Associated Diagnoses Date/Ti [...] Additional history exists CKD PHOS USE SMARTSET 33400 12/28/202312/02, 04/26/2022, 11/23/2021, Additional history exists CKD HGB USE SMARTSET 44498 02/29/202402/28, 02/28/2023, 02/14/2023, Additional history exists O2 ASSESSMENT COMPLETED IN PAST YEAR FOR COPD 02/29/2024 02/28/2023 DXA Scan 08/01/2024 08/01/2022, 10/2020, 11/21/2013 COLONOSCOPY-EVERY 5 YRS AGES 18-100 02/23/2027 02/23/2022, 08/01/2019, 08/01/2019 DTaP,Tdap,and Td Vaccines (2 - Td or Tdap) 08/07/2030 08/07/2020 (Not indicated), 09/01/1998 Pneumococcal Vaccine: 65+ Years Completed 05/16/2016, 12/01/2014, 12/01/2013, Additional history exists VITAMIN D LEVEL ONCE IN A LIFETIME-USE SMARTSET# [id number] Completed 12/27/2022, 08/12/2022, 03/15/2022, Additional history exists [...] as of this encounter Visit Diagnoses Diagnosis Hx of nonmelanoma skin cancer- Primary Personal history of other malignant neoplasm of skin Actinic keratosis Irritant contact dermatitis due to drug in contact with skin Contact dermatitis and other eczema due to drugs and medicines in contact with skin documented in this encounter Care Teams Health Education Teacher Relationship Specialty Start Date End Date Tameka Hooper MD [address] [place] [address] [place] [address] PCP - General Family Medicine 05/29/19 documented as of this encounter
--- OUTSIDE RECORDS SUMMARY | 2023-07-25 20:58 | External Medical Summary | Summary of Care ---
Author Name Unknown Organization [facility] Address [address] [place] [address] Phone [phone] Care Team Providers Care Case Specialist Name Role Phone Tameka Hooper MD Primary Care Prov ider Reason for Visit * Reason Comments Follow Up Efudex nose and uppe r lip [from 04/10/23 reschedule] Encounter Details Date Type Department Care Team (Late st Contact Info) Description 05/22/2023 1:20 PM EST Office Visit Dermatology [address] [place] [address] Anya Pratt PA-C [address] [place] [address] [place] [address] Hx of nonmelanoma skin cancer*; Actinic keratosis; [...] as of this encounter (statuses as of 05/23/2023) Medications Medication Sig Dispensed Refills Start Date End Date Status [place]-3 Fatty Acids (FISH OIL) 500 MG Capsule [...] WHEEZING 360 mL 5 12/07/2022 Active Nystatin 620235 UNIT/GM External CreamIndications: Yeast dermatitis Apply topically [...] as of this encounter (statuses as of 05/23/2023) Active Problems Problem Noted Date Diagnosed Date [...] as of this encounter (statuses as of 05/23/2023) Resolved Problems Problem Noted Date Diagnosed Date [...] as of this encounter (statuses as of 05/23/2023) Immunizations Name Administration Dates Next Due COVID-19 [...] Product examples; Think sport, Think baby, Gregory, Babo botanicals, [place] [employer]A [place], [place] baby. "Baby" products can be used for all ages. documented in this encounter Progress Notes * Tony Gale MD - 05/23/2023 9:03 AM EST I have seen and examined the patient via teledermatology review of chart note and photos with Anya Pratt PA-C. I have reviewed and agree with the assessment and plan. * Anya Pratt PA-C - 05/22/2023 1:20 [...] keratoses (Efudex nose/upper lip 04/24) Reviewed all [facility] Dermatology pathology reports and clinic notes as well as those sent by referring provider prior to seeing pt. MEDICA TIONS: Current Outpatient Medications Medication Sig Dispense Refill [place]-3 Fatty Acids (FISH OIL) 500 MG Capsule [...] NEEDED FOR WHEEZING 360 mL 5 Nystatin 953296 UNIT/GM External Cream Apply topically to affected [...] 1 TABLET BY MOUTH EVERY DAY WITH [id number] Tablet 1 Albuterol Sulfate HFA 108 (90 [...] (if any) and chart reviewed by Dr. Tony Gale. Presumed diagnoses, expected natural histories, and [...] 06/19/2023 2:20 PM EST Office Visit Nephrology [address] [place] [phone] Nicole Lange MD [address] [place] [address], [place] [address] 08/08/2023 5:20 PM EST Office Visit Family Medicine [address] [place] [phone] Tameka Hooper MD [address] [place] [address] [place] [address] 08/14/2023 2:00 PM EST Nurse Only Ancillary [address] [place] [address] [place], Nurse Annual [facility]ness [address] [place] [address] [place] [address] 09/01/2023 12:00 PM EST [facility] [place] [phone] Lynn Busby, [address] [place] [address] 10/23/2023 2:30 PM EDT Office Visit Rheumatology [address] [place] [phone] Jessica Stubbs, [facility] [place] [address] 10/31/2023 1:00 PM EDT Cardiac Studies Cardiac Studies, [facility] [address] [facility] [place] [address] 05/01/2024 3:00 PM EDT Office Visit Dermatology [address] [place] [address] Anya Pratt PA-C [address] [place] [address] [place] [address] Scheduled Procedures Name Priority Associated Diagnoses Date/Ti [...] Additional history exists CKD PHOS USE SMARTSET 90801 12/28/202312/02, 04/26/2022, 11/23/2021, Additional history exists CKD HGB USE SMARTSET 66618 02/29/202402/28, 02/28/2023, 02/14/2023, Additional history exists O2 ASSESSMENT COMPLETED IN PAST YEAR FOR COPD 02/29/2024 02/28/2023 DXA Scan 08/01/2024 08/01/2022, 10/2020, 11/21/2013 COLONOSCOPY-EVERY 5 YRS AGES 18-100 02/23/2027 02/23/2022, 08/01/2019, 08/01/2019 DTaP,Tdap,and Td Vaccines (2 - Td or Tdap) 08/07/2030 08/07/2020 (Not indicated), 09/01/1998 Pneumococcal Vaccine: 65+ Years Completed 05/16/2016, 12/01/2014, 12/01/2013, Additional history exists VITAMIN D LEVEL ONCE IN A LIFETIME-USE SMARTSET# 61202 Completed 12/27/2022, 08/12/2022, 03/15/2022, Additional history exists [...] Not on filedocumented as of this encounter Procedures Procedure Name Priority Date/Time Associated Diagnosis Comments DERM IMAGE (SITE) Routine 05/22/2023 Actinic keratosis Irritant contact dermatitis due to drug in contact with skin Hx of nonmelanoma skin cancer documented in this encounter Results * DERM IMAGE (SITE) (05/22/2023) 05/22/2023 Anya Pratt PA-C DIGITAL PHOTOG DANIKA documented in this encounter Visit Diagnoses Diagnosis Hx of nonmelanoma skin cancer- Primary Personal history of other malignant neoplasm of skin Actinic keratosis Irritant contact dermatitis due to drug in contact with skin Contact dermatitis and other eczema due to drugs and medicines in contact with skin documented in this encounter Care Teams Case Specialist Relationship Specialty Start Date End Date Tameka Hooper MD [address] [place] [address] [place] [phone] PCP - General Family Medicine 05/29/19 documented as of this encounter
--- OUTSIDE RECORDS SUMMARY | 2023-07-25 20:58 | External Medical Summary | Summary of Care ---
Author Name Unknown Organization [facility] Address [address] [place] [address] Phone [phone] Care Team Providers Care Industrial Organization Manager Name Role Phone Tameka Hooper MD Primary Care Prov ider Reason for Visit * Reason Comments Chronic Kidney Disease (CKD) Stage 3 B C KD, HTN, complex renal cyst, colostomy, calcium nephrolithiasis, and STEFFEN Encounter Details Date Type Department Care Team (Late st Contact Info) Description 06/19/2023 2:20 PM EST Office Visit Nephrology [address] [place] [phone] Nicole Lange MD [address] [place], [place] [address] [address] Stage 3b chronic kidney disease (HCC)*; HTN, goal below 130/80; Calcium nephrolithiasis; Dizzy; Dyspnea on exertion Allergies Active Allergy Reactions Criticality Noted Date Comments Amoxicillin Rash 02/07/2020 Bactrim Rash 12/15/2011 Ciprofloxacin Rash 12/15/2011 Diltiazem Rash 05/29/2019 Piroxicam Rash 12/15/2011 Cephalexin Rash 12/15/2011 Meloxicam Rash 05/29/2019 Other reaction(s): Other Cilostazol Rash,Unknown 12/15/2011 Sulfamethoxazole High 01/19/2023 Other Reaction(s): Rash Trimethoprim High 01/19/2023 Other Reaction(s): Rash documented as of this encounter (statuses as of 06/27/2023) Medications Medication Sig Dispensed Refills Start Date End Date Status [place]-3 Fatty Acids (FISH OIL) 500 MG Capsule [...] + D 600-200 MG-UNIT Oral Tablet (Calcium Carb-Cholecalcifero l) Take 1 Tab by mouth daily. 0 [...] on 10/27/2022 Triamcinolone Acetonide 0.5 % External CreamIndications:De rmatitis APPLY TO AFFECTED AREA TWICE A DAY 60 g 5 11/19/2021 Active Compressor NebulizerIndication s:COPD, moderate (HCC) Inhale via nebulizer . Use as directed. 1 Each 1 02/14/2022 Active Escitalopram Oxalate 10 MG Oral Tablet (Lexapro)Indication s:Major depressive disorder, single episode, unspecified TAKE 1 TABLET BY MOUTH EVERY DAY 90 Tablet 3 07/14/2022 Active Flecainide Acetate 50 MG Oral Tablet (Tambocor)Indicatio ns:Paroxysmal atrial fibrillation (HCC) TAKE 1 TABLET BY MOUTH TWICE A DAY 180 Tablet 3 07/15/2022 Active Verapamil HCl ER 240 MG Oral Capsule Extended Release 24 HourIndications:Chr onic atrial fibrillation (HCC) TAKE 1 CAPSULE BY MOUTH EVERY DAY 90 Capsule 1 11/15/2022 Active Ipratropium-Albuter ol 0.5-2.5 (3) MG/3ML Inhalation Solution (Duoneb)Indications :COPD, moderate (HCC) INHALE 1 VIAL VIA NEBULIZER EVERY 6 HOURS NEEDED FOR WHEEZING 360 mL 5 12/07/2022 Active Nystatin 615658 UNIT/GM External CreamIndications:Ye ast dermatitis Apply topically to affected area 2 times a day. To affacted area for two weeks. 30 g 3 12/27/2022 Active Mesalamine 1.2 GM Oral Tablet Delayed Release (Lialda) TAKE BY MOUTH 3 TABLETS IN THE MORNING. 270 Tablet 3 01/02/2023 Active Meclizine HCl 12.5 MG Oral Tablet (Antivert)Indicatio ns:Vertigo TAKE 1 TABLET BY MOUTH THREE TIMES A DAY FOR DIZZINESS 30 Tablet 3 01/02/2023 Active Additional Information Patient not taking.Reported on 02/28/2023 Estradiol 0.1 MG/GM Vaginal Cream (Estrace)Indication s:Postmenopausal atrophic vaginitis Administer 2 g into the vagina in the morning. as directed.. 42.5 g 3 01/06/2023 Active Additional Information Patient not taking.Reported on 06/19/2023 Solifenacin Succinate 5 MG Oral Tablet (VESIcare)Indicatio ns:Urge incontinence,Urinar y frequency,Urinary urgency,Mixed incontinence Take 1 Tablet by mouth in the morning. 90 Tablet 3 03/20/2023 Active Lisinopril 2.5 MG Oral Tablet (Prinivil)Indicatio ns:Essential (primary) hypertension Take 1 Tablet by mouth in the morning. 90 Tablet 3 03/29/2023 Active Xarelto 15 MG Oral Tablet (Rivaroxaban)Indica tions:Chronic atrial fibrillation (HCC) TAKE 1 TABLET BY [...] HFA 108 (90 Base) MCG/ACT Inhalation Aerosol SolutionIndications :COPD, moderate (HCC) INHALE 2 PUFFS BY MOUTH NEEDED FOR COUGH, SHORTNESS OF BREATH OR WHEEZING. 18 g 5 05/15/2023 Active documented as of this encounter (statuses as of 06/27/2023) Active Problems Problem Noted Date Diagnosed Date [...] as of this encounter (statuses as of 06/27/2023) Resolved Problems Problem Noted Date Diagnosed Date [...] as of this encounter (statuses as of 06/27/2023) Immunizations Name Administration Dates Next Due COVID-19 [...] on file documented as of this encounter Last Filed Vital Signs Vital Sign Reading Time Taken Comments Blood Pressure 123/49 06/19/2023 2:44 PM EST sta nding Pulse 75 06/19/2023 2:44 PM EST Temperature 36.4 C (97.6 F) 06/19/2023 2:16 PM ES T Respiratory Rate - - Oxygen Saturation - - Inhaled Oxygen Concentration - - Weight 78.7 kg (173 lb 9.6 oz) 06/19/2023 2:11 P M EST Height - - Body Mass Index 37.57 08/31/2022 12:42 PM EST documented in this encounter Patient Instructions * Patient Instructions* Nicole Lange MD - 06/19/2023 3:04 PM EST -talk to your lung doctor about needing a wheelchair to get around b/c of being short of breath; I will message Dr SCOTT as well -no medication changes -avoid medicines like aleve, advil, ibuprofen, aspirin more than 81 mg daily and other NSAIDS whichare not good for kidney patients. Take only tylenol (acetaminophen) up to 2000 mg daily as needed for pain or as directed by your primary care provider. -update labs in August w/ those for Dr Mc >get back in to see GI documented in this encounter Progress Notes * Nicole Lange MD - 06/19/2023 2:40 PM EST NEPHROLOGY CLINIC NOTE Nephrology [address] [place] [address] 06/19/2023, 2:40 PM Patient Name: Eliazar Beaulieu BACKGROUND: 83 year old female presents for follow up of non proteinuric CKD3B. PMH includes pAF on flecainide, COPD on chronic 02nc, active tobacco abuse, emergent colostomy for diverticulitis 10/2018, CHRONIC SINUS ISSUES, chronic back pain, osteoporosis w/ spine fracture 2018 on prolia, hypothyroid, depression, chronic inner ear/sinus issues. After consultation w/ surgery, she does not plan to reverse colostomy. Follows w/ [facility] pulm. Home blood pressure checks: has wrist cuff, not validated and uses when asked History of stones: >> first one ever 08/2020 Family history of CKD or ESRD: no NSAID use: has used ibuprofen in past but now only tylenol; not sure if heavy use or not Herbals/supplements: none Last hospital stay: apart from spring 2020 [facility] obs, last hospital stay [place] for colostomy creation after diverticulitis 2017; admission before that 08/2017 for a fib [facility] following the patient with recent colonoscopy spring 2022 showing possible inflammatory bowel disease throughout the colon. Diagnosis still not firm. She is on mesalamine now. Concern also for possible ischemic colitis At October 2022 office visit, she reported being out of breath walking main entrance of clinic to lab-- for a while didn't have this now it's back. ? Cause. Drinks 32 oz daily water; drinks orange flavored vitawater - at least 8 oz; 2 cups of coffee in AM decaf about 8 oz each. No regular exercise program; most activity is with going to store. Lives alone; retired . Worked in [employer] for [employer]. Back bothers her if she stands a long time or walks far. Doesn't get flu shot; last one 20 + yrs back made her ill so scared to get it. +covid vacc though. Pt was scammed 2019 online; not using computer now. TODAY 06/19/2023: comes to visit today in w/c (came last time by walking); using w/c now b/c of exertional dyspnea. Longstanding 02 23/01 but no higher 02 needs. Follows w/ [facility] Dr Banks > saw himin January; was in w/c then. No acute interval clinical events. Rx'd estradiol 2X weekly I-vag in summer but not taking/ does not recall Ended up not getting 6 mos f/u colonoscopy b/c no ride >> no f/u appts; did nto reschedule. Denies concerns w/ diarrhea, abdominal pain, hematochezia or melena. Remains on mesalamine Getting ready for as. [facility]. REVIEW OF SYSTEMS: No F/C, wt stable; energy level and appetite acceptable No acute visual changes or REYES No LE edema No cough, wheeze; marked worsening of exertional dyspnea no change in dyspnea at rest No N/V/D/C/abd pain; no changes in/concerns about colostomy output No dysuria, hematuria, nocturia >2X; has leakage at timeswell enough controlled on vesicare No focal joint/muscle aches -- still w/ back pain if stands longer time; else ok No tremor, seizures, focal or global weakness or paresthesias Daily presyncopal or orthostatic symptoms; no falls Current Outpatient Medications Medication Sig Dispense Refill [place]-3 Fatty Acids (FISH OIL) 500 MG Capsule Take by mouth. PRESERVISION AREDS 2 PO CAPS 1 tab daily guaiFENesin ER 600 MG Oral Tablet Extended [...] the skin every 6 months.1 mL 0 Acetaminophen 325 MG Oral Tablet Take 1 Tablet by mouth every 6 hours as needed for Pain, Mild. Pt takes 1/2 tab daily Triamcinolone Acetonide 0.5 % External Cream APPLY [...] NEEDED FOR WHEEZING 360 mL 5 Nystatin 316556 UNIT/GM External Cream Apply topically to affected area 2 times a day. To affacted area for two weeks. 30 g 3 Mesalamine 1.2 GM Oral Tablet Delayed Release (Lialda) TAKE BY MOUTH 3 TABLETS IN THE MORNING. 270 Tablet 3 Lisinopril 2.5 MG Oral Tablet [...] 1 TABLET BY MOUTH EVERY DAY WITH [id number] Tablet 1 Albuterol Sulfate HFA 108 (90 Base) MCG/ACT Inhalation Aerosol Solution INHALE 2 PUFFS BY MOUTH NEEDED FOR COUGH, SHORTNESS OF BREATH OR WHEEZING. 18 g 5 SYSTANE 0.4-0.3 % OP SOLN as needed (Patient not taking: Reported on 02/28/2023) CPAP every night at bedtime. (Patient not taking: Reported on 06/19/2023) Fluticasone Propionate 50 MCG/ACT Nasal Suspension (Flonase) SPRAY 2 SPRAYS INTO EACH NOSTRIL EVERYDAY (Patient not taking: Reported on 10/27/2022) 48 mL 1 Meclizine HCl 12.5 MG Oral Tablet (Antivert) TAKE 1 TABLET BY MOUTH THREE TIMES A DAY FOR DIZZINESS(Patient not taking: Reported on 02/28/2023) 30 Tablet 3 Estradiol 0.1 MG/GM Vaginal Cream (Estrace) Administer 2 g into the vagina in the morning. as directed.. (Patient not taking: Reported on 06/19/2023) 42.5 g 3 Solifenacin Succinate 5 MG Oral Tablet (VESIcare) Take 1 Tablet by mouth in the morning. 90 Tablet 3 No current facility-administered medications for this visit. Review of patient's allergies indicates: Allergen Reactions Sulfamethoxazole Other Reaction(s): Rash Trimethoprim Other Reaction(s): Rash Amoxicillin Rash Bactrim Rash Ciprofloxacin Rash Diltiazem Rash Feldene [Piroxicam] Rash Keflex [Cephalexin] Rash Meloxicam Rash Other reaction(s): Other Pletal [Cilostazol] Rash and Unknown PHYSICAL EXAMINATION: BP Readings from Last 6 Encounters: 06/19/23 123/49 03/02/23 122/56 02/28/23 122/50 02/13/23 116/60 12/27/22 120/50 10/27/22 131/55 Wt Readings from Last 6 Encounters: 06/19/23 78.7 kg (173 lb 9.6 oz) 02/28/23 80.7 kg (177 lb 14.4 oz) 12/27/22 81.2 kg (179 lb) 10/27/22 79.8 kg (176 lb) 09/26/22 79.8 kg (176 lb) 09/19/22 80.2 kg (176 lb 14.4 oz) Pulse Readings from Last 6 Encounters: 06/19/23 75 03/02/23 68 02/28/23 61 02/13/23 78 12/27/22 85 10/27/22 65 NAD, oriented x 3, ambulatory in w/c Normocephalic, atraumatic, eomi nonicteric sclerae MMM Supple neck RRR w/o m/g/r; no edema Tubular/bronchial breath sounds; some L base crackles; no distress NT abd, +BS, soft, LLQ colostomy No cyanosis or clubbing No rash No tremor, focal or global weakness; fluent speech, ?some memory lapses at times LABS: Recent Labs Units 02/14/23 1249 12/27/22 1411 08/12/22 1549 04/26/22 1608 SODIUM - [facility] mmol/L 140 140 143 140 POTASSIUM - [facility] mmol/L 4.9 4.9 4.8 4.8 CHLORIDE - [facility] mmol/L 104 104 106 105 CO2 - [facility] mmol/L 26 26 26 27 BUN - [facility] mg/dL 17 22* 19 18 CREATININE - [facility] mg/dL 1.6* 1.7* 1.6* 1.5* ESTIMATED GLOMERULAR FILTRATION RATE - [facility] mL/min 33* 31* 34* 34* Recent Labs Units 02/28/23 1524 02/14/23 1249 12/27/22 1411 08/12/22 1549 03/10/22 1438 11/23/21 1557 HGB - [facility] g/dL 11.2* 11.5* -- 14.3 15.8* 13.5 FERRITIN - [facility] ng/mL -- -- 71 -- -- 173* TRANSFERRIN SATURATION PERCENT - [facility] % -- -- 31 -- -- 20 Recent Labs Units 02/14/23 1249 12/27/22 1411 08/12/22 1549 04/26/22 1608 03/15/22 1511 03/10/22 1438 11/23/21 1557 08/03/21 1423 CALCIUM - [facility] mg/dL 8.7 8.5 9.2 9.2 9.3 < > 9.8 9.3 PHOSPHORUS - [facility] mg/dL -- 2.9 -- 3.0 -- -- 3.7 3.1 25-HYDROXY VITAMIN D - [facility] ng/mL -- 37 37 -- 42 -- 50 -- PTH - [facility] pg/mL -- -- 19 -- -- -- -- -- < > = values in this interval not displayed. No results for input(s): "HGBA1C" in the last 49340 hours. Recent Labs Units 12/28/22 1455 08/15/22 1416 ALBUMIN / CREATININE RATIO, URINE - [facility] mg/g Creat -- 100* PROTEIN/ CREATININE RATIO, URINE - [facility] mg/g 417* -- Recent Labs Units 02/14/23 1249 12/28/22 1455 12/06/22 1603 03/15/22 1508 CLARITY, URINE - [facility] Cloudy* -- -- Slightly Cloudy* GLUCOSE, URINE - [facility] mg/dL Negative -- -- Negative BILIRUBIN, URINE - [facility] Negative -- -- Negative KETONE, URINE - [facility] mg/dL Negative -- -- Negative SPECIFIC GRAVITY, URINE - [facility] 1.011 -- -- 1.013 BLOOD, URINE - [facility] Small* -- -- Small* PH, URINE - [facility] Units 8.0* -- -- 7.0 PROTEIN, URINE - [facility] mg/dL 30* -- -- 30* PROTEIN, RANDOM URINE - [facility] mg/dL -- 48 -- -- UROBILINOGEN, URINE - [facility] mg/dL 0.2 -- -- Normal NITRITE, URINE - [facility] Negative -- -- Negative ESTERASE, URINE - [facility] Large* -- -- Large* BACTERIA, URINE - [facility] /HPF 26-50* -- 26-50* >200* WBC, URINE - [facility] /HPF 50+* -- 50+* 50+* RBC, URINE - [facility] /HPF 3-5* -- 0-2 10-19* ASSESSMENT AND PLAN: Stage 3b chronic kidney disease (HCC) (Primary) HTN, goal below 130/80 Calcium nephrolithiasis Dizzy - 3 POSITIONAL BLOOD PRESSURE Dyspnea on exertion Follow Up: Return in about 6 months (around 12/19/2023) for clinic visit w/ PA. | For: clinic visit w/ PA Stable CKD 3A on most recent basic metabolic panel from January 2023 with acceptable chemistries, though she is prone to higher potassium. 100 mg albuminuria. Most recently without evidence of volume overload on exam today. Most recent renal u/s w/ R simple cyst for which no f/u imaging needed. -continue very low-dose lisinopril -update labs time does below Blood pressure controlled on verapamil, lisinopril continue current doses. Tells me she is dizzy today however not orthostatic Advised to f/u on dsypnea w/ PCP and/or pulm; no evidence of volume componnent; not acutely dyspneic but chronic and since last visit progressive; PCP messaged Nephrotlithiasis not discussed today Patient Instructions -talk to your lung doctor about needing a wheelchair to get around b/c of being short of breath; I will message Dr SCOTT as well -no medication changes -avoid medicines like aleve, advil, ibuprofen, aspirin more than 81 mg daily and other NSAIDS whichare not good for kidney patients. Take only tylenol (acetaminophen) up to 2000 mg daily as needed for pain or as directed by your primary care provider. -update labs in August w/ those for Dr Mc >get back in to see JUANPABLO Lange MD Nephrology [address] Shaan [place] [address] CC: Ref: SELF[[id number]] NO STREET ADDRESS AVAILABLE None (office) None (fax) PCP: TAMEKA HOOPER [address] [place] [address] [place] [address] This chart was completed in part utilizing [employer] Voice Recognition Software. Randomword insertions, pronoun errors, and incomplete sentences are an occasional consequence of this system due to software limitations, and ambient noise. Any questions or concerns about the content, text, or information contained within the body of this dictation should be directly addressed to the provider for clarification. documented in this encounter Nursing Notes * Vonnie Ceron LPN - 06/19/2023 2:39 PM EST Chief Complaint Patient presents with Chronic Kidney Disease (CKD) Stage 3 B CKD, HTN, complex renal cyst, colostomy, calcium nephrolithiasis, and STEFFEN Laying 120/49 73 Sitting 133/59 78 Standing 123/49 75 * Vonnie Ceron LPN - 06/19/2023 2:14 PM EST Chief Complaint Patient presents with Chronic Kidney Disease (CKD) Stage 3 B CKD, HTN, complex renal cyst, colostomy, calcium nephrolithiasis, and STEFFEN Pt stating occasionally may have lightheadedness, not that often. Pt also states no changes in her medications Average of : 132/52 documented in this encounter Plan of Treatment Upcoming Encounters Date Type Department Care Team (Late st Contact Info) Description 08/08/2023 10:40 AM EST Office Visit Family Medicine [address] [place] [phone] Tameka Hooper MD [address] [place] [address] [place] [address] 08/14/2023 2:00 PM EST Nurse Only Ancillary [address] [place] [address] [place], Nurse Annual [address] [place] [address] 09/01/2023 12:00 PM EST [facility] [place] [phone] Lynn Busby, [address] [place] [address] 10/23/2023 2:30 PM EDT Office Visit Rheumatology [address] [place] [phone] Jessica Stubbs CRNP [address] [facility] [place] [address] 10/31/2023 1:00 PM EDT Cardiac Studies [facility] [address] [place] [address] 03/26/2024 1:30 PM EDT Office Visit Nephrology [address] [place] [address] ZeAyana ladd PA-C [address] [place] [address] 05/01/2024 3:00 PM EDT Office Visit Dermatology [address] [place] [address] Anya Pratt PA-C [address] [place] [address] [place] [address] Scheduled Orders Name Type Priority Associated Diagnoses Orde r Schedule 3 POSITIONAL BLOOD PRESSURE Procedures Routine Dizzy Ordered: 06/19/2023 Scheduled Procedures Name Priority Associated Diagnoses Date/Ti [...] Additional history exists CKD PHOS USE SMARTSET 99728 12/28/202312/02, 04/26/2022, 11/23/2021, Additional history exists CKD HGB USE SMARTSET 71826 02/29/202402/28, 02/28/2023, 02/14/2023, Additional history exists O2 ASSESSMENT COMPLETED IN PAST YEAR FOR COPD 02/29/2024 02/28/2023 DXA Scan 08/01/2024 08/01/2022, 10/2020, 11/21/2013 COLONOSCOPY-EVERY 5 YRS AGES 18-100 02/23/2027 02/23/2022, 08/01/2019, 08/01/2019 DTaP,Tdap,and Td Vaccines (2 - Td or Tdap) 08/07/2030 08/07/2020 (Not indicated), 09/01/1998 Pneumococcal Vaccine: 65+ Years Completed 05/16/2016, 12/01/2014, 12/01/2013, Additional history exists VITAMIN D LEVEL ONCE IN A LIFETIME-USE SMARTSET# [id number] Completed 12/27/2022, 08/12/2022, 03/15/2022, Additional history exists [...] as of this encounter Visit Diagnoses Diagnosis Stage 3b chronic kidney disease (HCC)- Primary HTN, goal below 130/80 Unspecified essential hypertension Calcium nephrolithiasis Calculus of kidney Dizzy Dizziness and giddiness Dyspnea on exertion Other dyspnea and respiratory abnormality documented in this encounter Care Teams Industrial Organization Manager Relationship Specialty Start Date End Date Tameka Hooper MD [address] [place] [address] [place] [phone] PCP - General Family Medicine 05/29/19 documented as of this encounter
--- OUTSIDE RECORDS SUMMARY | 2023-07-25 20:58 | External Medical Summary | Summary of Care ---
Author Name Unknown Organization [facility] Address [address] [place] [address] Phone [phone] Care Team Providers Care Glass Vial Filler Name Role Phone Tameka Hooper MD Primary Care Prov ider Reason for Visit * Reason Onset Date Comments Appointment 06/29/2023 Encounter Details Date Type Department Care Team (Late st Contact Info) Description 06/29/2023 Telephone Gastroenterology, [address] [phone] Gasper Kim, DO [address] [place] [address] Appointment Allergies Active Allergy Reactions Criticality Noted Date Comments Amoxicillin Rash 02/07/2020 Bactrim Rash 12/15/2011 Ciprofloxacin Rash 12/15/2011 Diltiazem Rash 05/29/2019 Piroxicam Rash 12/15/2011 Cephalexin Rash 12/15/2011 Meloxicam Rash 05/29/2019 Other reaction(s): Other Cilostazol Rash,Unknown 12/15/2011 Sulfamethoxazole High 01/19/2023 Other Reaction(s): Rash Trimethoprim High 01/19/2023 Other Reaction(s): Rash documented as of this encounter (statuses as of 07/04/2023) Medications Medication Sig Dispensed Refills Start Date End Date Status Base[place]-3 Fatty Acids (FISH OIL) 500 MG Capsule [...] WHEEZING 360 mL 5 12/07/2022 Active Nystatin 547194 UNIT/GM External CreamIndications:Ye ast dermatitis Apply topically [...] as of this encounter (statuses as of 07/04/2023) Active Problems Problem Noted Date Diagnosed Date [...] as of this encounter (statuses as of 07/04/2023) Resolved Problems Problem Noted Date Diagnosed Date [...] as of this encounter (statuses as of 07/04/2023) Immunizations Name Administration Dates Next Due COVID-19 [...] encounter Miscellaneous Notes * Telephone Encounter - More Rosa OSA - 07/04/2023 2:48 PM EST Colon 10/31 Appt 11/13 * Telephone Encounter - [place] Cazares RN - 06/29/2023 4:14 PM EST Schedulers: Please contact pt to schedule colonoscopy and OV f/u. Thanks! * Telephone Encounter - [place] Cazares RN - 06/29/2023 4:14 PM EST ----- Message from Vonnie Ceron LPN sent at 06/28/2023 8:04 AM EST ----- ----- Message ----- From: Nicole Lange MD Sent: 06/19/2023 2:50 PM EST To: Gasper Kim DO; Vonnie Ceron LPN Per August 2022 OV note GI >> plan for colonoscopy in 6 mos and 1 year f/u Pt doing ok from nephro and gi standpoint but wanted to keep her on your radar >> no colo or f/u appt scheduled currently documented in this encounter Plan of Treatment Upcoming Encounters Date Type Department Care Team (Late st Contact Info) Description 08/08/2023 10:40 AM EST Office Visit [address] [place] [phone] Tameka Hooper MD [address] [place] [address] [place] [address] 08/14/2023 2:00 PM EST Nurse Only Ancillary [address] [place] [address] [place], Nurse Annual [address] [place] [address] 09/01/2023 12:00 PM EST Office Visit Sleep Disorders Ctr [facility] [address] [place] [phone] Lynn Busby, DO [address] [place] [address] 10/23/2023 2:30 PM EDT Office Visit Rheumatology [address] [place] [phone] Jessica Stubbs CRNP [facility] [place] [address] 10/31/2023 1:00 PM EDT Cardiac Studies Cardiac Studies, [facility] [address] [place] [address] 11/01/2023 8:30 AM EDT Procedure Only Endoscopy, [facility] [address] [place] [address] Gasper Kim, DO [address] [place] [address] 11/14/2023 12:20 PM EDT Office Visit Gastroenterology, [facility] [address] [place] [address] Gasper Kim, DO [address] [place] [address] 03/26/2024 1:30 PM EDT Office Visit Nephrology [address] [place] [address] Ayana Anna PA-C [address] [place] [address] 05/01/2024 3:00 PM EDT Office Visit Dermatology [address] [place] [address] Anya Pratt PA-C [address] [place] [address] [place] [address] Health Maintenance Due Date Last Done Comments DISCUSS TOBACCO CESSATION (REFER TO SMARTSET #3291) 1940 COVID-19 Vaccine ( season) 2023 06/01/2021, 10/20/2020, 09/15/2020 Influenza Vaccine (FLU shot) (#1) 2023 Depression Screening 08/11/2023 08/11/2022 Albumin/Creatinine Ratio 08/15/2023 08/15/2022, 01/31 GFR 08/17/2023 02/14/2023, 12/02, 08/12/2022, Additional history exists CKD PHOS USE SMARTSET 42237 12/28/202312/02, 04/26/2022, 11/23/2021, Additional history exists CKD HGB USE SMARTSET 67093 02/29/202402/28, 02/28/2023, 02/14/2023, Additional history exists O2 ASSESSMENT COMPLETED IN PAST YEAR FOR COPD 02/29/2024 02/28/2023 DXA Scan 08/01/2024 08/01/2022, 10/2020, 11/21/2013 COLONOSCOPY-EVERY 5 YRS AGES 18-100 02/23/2027 02/23/2022, 08/01/2019, 08/01/2019 DTaP,Tdap,and Td Vaccines (2 - Td or Tdap) 08/07/2030 08/07/2020 (Not indicated), 09/01/1998 Pneumococcal Vaccine: 65+ Years Completed 05/16/2016, 12/01/2014, 12/01/2013, Additional history exists VITAMIN D LEVEL ONCE IN A LIFETIME-USE SMARTSET# [id number] Completed 12/27/2022, 08/12/2022, 03/15/2022, Additional history exists [...] filedocumented as of this encounter Care Teams Glass Vial Filler Relationship Specialty Start Date End Date Tameka Hooper MD [address] [place] [address] [place] [phone] PCP - General Family Medicine 05/29/19 documented as of this encounter
--- OUTSIDE RECORDS SUMMARY | 2023-07-25 20:59 | External Medical Summary | Summary of Care ---
Author Name Unknown Organization [facility] Address [address] [place] [facility] [place] [place] [address] Phone [phone] Care Team Providers Care Media Operator Name Role Phone Tameka Hooper MD Primary Care Prov ider Reason for Visit * Reason Onset Date Comments Fax Refill 03/28/2023 Encounter Details Date Type Department Care Team Description 03/28/2023 Telephone Cardiology, [facility] [address] [place] [address] Adrian Savage, [address] [place] [address] Fax Refill Allergies Active Allergy Reactions Severity Noted Date Comments Amoxicillin Rash 02/07/2020 Bactrim Rash 12/15/2011 Ciprofloxacin Rash 12/15/2011 Diltiazem Rash 05/29/2019 Piroxicam Rash 12/15/2011 Cephalexin Rash 12/15/2011 Meloxicam Rash 05/29/2019 Other reaction(s): Other Cilostazol Rash,Unknown 12/15/2011 documented as of this encounter (statuses as of 03/29/2023) Medications Medication Sig Dispensed Refills Start Date End Date Status [place]-3 Fatty Acids (FISH OIL) 500 MG Capsule [...] + D 600-200 MG-UNIT Oral Tablet (Calcium Carb-Cholecalcifer ol) Take 1 Tab by mouth daily. 0 [...] on 10/27/2022 Triamcinolone Acetonide 0.5 % External CreamIndications:D ermatitis APPLY TO AFFECTED AREA TWICE A DAY 60 g 5 11/19/2021 Active Compressor NebulizerIndicatio ns:COPD, moderate (HCC) Inhale via nebulizer . Use as directed. 1 Each 1 02/14/2022 Active Xarelto 15 MG Oral Tablet (Rivaroxaban)Indic ations:Chronic atrial fibrillation (HCC) TAKE 1 TABLET BY MOUTH EVERY DAY 90 Tablet 3 04/06/2022 Active Escitalopram Oxalate 10 MG Oral Tablet (Lexapro)Indicatio ns:Major depressive disorder, single episode, unspecified TAKE 1 TABLET BY MOUTH EVERY DAY 90 Tablet 3 07/14/2022 Active Flecainide Acetate 50 MG Oral Tablet (Tambocor)Indicati ons:Paroxysmal atrial fibrillation (HCC) TAKE 1 TABLET BY MOUTH TWICE A DAY 180 Tablet 3 07/15/2022 Active Ferrous Sulfate 325 (65 Fe) MG Oral Tablet (Feosol) TAKE 1 TABLET BY MOUTH EVERY DAY WITH BREAKFAST 90 Tablet 1 11/15/2022 Active Verapamil HCl ER 240 MG Oral Capsule Extended Release 24 HourIndications:Ch ronic atrial fibrillation (HCC) TAKE 1 CAPSULE BY MOUTH EVERY DAY 90 Capsule 1 11/15/2022 Active Ipratropium-Albute rol 0.5-2.5 (3) MG/3ML Inhalation Solution (Duoneb)Indication s:COPD, moderate (HCC) INHALE 1 VIAL VIA NEBULIZER EVERY 6 HOURS NEEDED FOR WHEEZING 360 mL 5 12/07/2022 Active ProAir HFA 108 (90 Base) MCG/ACT Inhalation Aerosol SolutionIndication s:COPD, moderate (HCC) Inhale 2 Puffs by mouth as needed for Cough, Shortness of Breath or Wheezing. 18 g 5 12/07/2022 Active Nystatin 190271 UNIT/GM External CreamIndications:Y east dermatitis Apply topically to affected area 2 times a day. To affacted area for two weeks. 30 g 3 12/27/2022 Active Mesalamine 1.2 GM Oral Tablet Delayed Release (Lialda) TAKE BY MOUTH 3 TABLETS IN THE MORNING. 270 Tablet 3 01/02/2023 Active Meclizine HCl 12.5 MG Oral Tablet (Antivert)Indicati ons:Vertigo TAKE 1 TABLET BY MOUTH THREE TIMES A DAY FOR DIZZINESS 30 Tablet 3 01/02/2023 Active Additional Information Patient not taking.Reported on 02/28/2023 Estradiol 0.1 MG/GM Vaginal Cream (Estrace)Indicatio ns:Postmenopausal atrophic vaginitis Administer 2 g into the vagina in the morning. as directed.. 42.5 g 3 01/06/2023 Active Cefdinir 300 MG Oral Capsule (Omnicef)Indicatio ns:Acute cystitis without hematuria Take 1 Capsule by mouth in the morning and 1 Capsule before bedtime. Until gone.. 10 Capsule 0 01/06/2023 Active Additional Information Patient not taking.Reported on 02/03/2023 Fluorouracil 5 % External Cream (Efudex)Indication s:Actinic keratosis Start 03/20/23: apply thin layer to nose and upper lip 2x daily until 04/10/23 2:20pm derm appointment 40 g 0 03/15/2023 Active Solifenacin Succinate 5 MG Oral Tablet (VESIcare)Indicati ons:Urge incontinence,Urina ry frequency,Urinary urgency,Mixed incontinence Take 1 Tablet by mouth in the morning. 90 Tablet 3 03/20/2023 Active Lisinopril 2.5 MG Oral Tablet (Prinivil)Indicati ons:Essential (primary) hypertension Take 1 Tablet by mouth in the morning. 90 Tablet 3 03/29/2023 Active Lisinopril 2.5 MG Oral Tablet (Prinivil) Take 1 Tablet by mouth in the morning. 30 Tablet 11 03/02/2023 3 Discontinue d(Refill) documented as of this encounter (statuses as of 03/29/2023) Active Problems Problem Noted Date Other specified peripheral vascular dise ases 12/27/2022 Hypertensive kidney disease with stage 3 b chronic kidney disease 12/13/2022 COPD, group B, by GOLD 2017 classificati on 08/15/2022 Overview: Per COPD GOLD Classification Essential (primary) hypertension 023 Actinic keratosis 04/26/2022 History of healed osteoporosis fracture 03/24/2022 Overview: Vertebra Major depressive disorder with single ep isode, in full remission 09/30/2021 Hypoparathyroidism 09/30/2021 Chronic hypoxemic respiratory failure Senile osteoporosis 03/26/2021 Stage 3b chronic kidney disease 07/13/19 21 Overview: Per CKD protocol - Per CKD protocol - Per CKD protocol DDD (degenerative disc disease), lumbar 02/07/2020 Chronic bilateral low back pain without sciatica 02/04/2020 Major depressive disorder, single episod e, unspecified 07/10/2019 Macular degeneration 05/29/2019 S/P bilateral cataract extraction 2018 Colostomy status 05/29/2019 Paroxysmal atrial fibrillation 9 H/O resection of large bowel 05/29/2019 Diverticulosis of large intestine withou t hemorrhage 05/29/2019 Mixed hyperlipidemia 05/29/2019 Tobacco use disorder 05/29/2019 FRANCIS and COPD overlap syndrome 12/15/2011 documented as of this encounter (statuses as of 03/29/2023) Resolved Problems Problem Noted Date Resolved Date Prediabetes 03/15/2021 12/16/2021 Overview: Per Prediabetes protocol Other specified peripheral vascular diseases 10/202008/12/2022 Age-related osteoporosis wit hout current pathological fracture 08/07/2020 09/08/2020 Stage 3a chronic kidney disease 05/11/2020 07/16/2020 Overview: Per CKD protocol - Per CKD protocol Kidney disease, chronic, stage III (GFR 30-59 ml /min) 02/10/2020 05/14/2020 Overview: Per CKD protocol Age-related osteoporosis with current pathologic al fracture 02/07/2020 03/26/2021 Fracture of vertebra due to osteoporosis with routine healing 02/07/2020 03/24/2022 Essential (primary) hypertension 07/10/2019 07/15/2021 Age-related osteoporosis wit hout current pathological fracture 07/10/2019 02/07/2020 COPD, moderate 12/15/2011 08/17/2022 Overview: Per COPD GOLD Classification Glaucoma 12/15/2011 07/10/2019 documented as of this encounter (statuses as of 03/29/2023) Immunizations Name Administration Dates Next Due COVID-19 [...] drink = 0.6 oz pur e alcohol) Food Insecurity Answer Date Recorded Within the past 12 months, y ou worried that your food would run out before you got money to buy more. Never true 08/11/2022 Within the past 12 months, t he food you bought just didn't last and you didn't have money to get more. Never true 08/11/2022 Sex Assigned at Date Recorded Female 08/11/2021 12:39 PM EST Job Start Date Occupation Industry Not on file Not on file Not on file documented as of this encounter Miscellaneous Notes * Telephone Encounter - Tricia Hernandez CMA - 03/28/2023 4:30 PM EDT Request for 90-day Rx. documented in this encounter Plan of Treatment Upcoming Encounters Date Type Specialty Care Team Description 04/07/2023 Nurse Only Rheumatology Aneesh, Nurse [address] [place] [phone] 04/10/2023 Office Visit Dermatology Anya Pratt PA-C [address] [place] [address] [place] [address] 04/21/2023 Office Visit Family Medicine Tameka Hooper MD [address] [place] [address] [place] [address] 06/19/2023 Office Visit Nephrology Nicole Lange MD [address] [place] [address] 08/14/2023 Nurse Only Ancillary [place] Nurse Annual [address] [place] [address] 09/01/2023 Office Visit Sleep Disorders Lynn Busby DO [address] [place] [address] 10/23/2023 Office Visit Rheumatology Daniel Tapia MD [facility] [place] [address] 10/31/2023 Cardiac Studies Cardiac Studies Scheduled Procedures Name Priority Associated Diagnoses Date/Ti me COLONOSCOPY FLEXIBLE PROXIMAL DIAGNOSTIC Recall History of colon polyps Health Maintenance Due Date Last Done Comments DISCUSS TOBACCO CESSATION (REFER TO SMARTSET #4615) 1940 COVID-19 Vaccine (4 - Moderna series) 07/27/2021 06/01/2021, 10/20/2020, 09/15/2020 Influenza Vaccine (FLU shot) (#1) 2023 Depression Screening 08/11/2023 08/11/2022 Albumin/Creatinine Ratio 08/15/2023 08/15/2022, 01/31 GFR 08/17/2023 02/14/2023, 12/02, 08/12/2022, Additional history exists CKD PHOS USE SMARTSET 89161 12/28/202312/02, 04/26/2022, 11/23/2021, Additional history exists CKD HGB USE SMARTSET 33289 02/29/202402/28, 02/28/2023, 02/14/2023, Additional history exists O2 ASSESSMENT COMPLETED IN PAST YEAR FOR COPD 02/29/2024 02/28/2023 DXA Scan 08/01/2024 08/01/2022, 10/2020, 11/21/2013 COLONOSCOPY-EVERY 5 YRS AGES 18-100 02/23/2027 02/23/2022, 08/01/2019, 08/01/2019 DTaP,Tdap,and Td Vaccines (2 - Td or Tdap) 08/07/2030 08/07/2020 (Not indicated), 09/01/1998 Pneumococcal Vaccine: 65+ Years Completed 05/16/2016, 12/01/2014, 12/01/2013, Additional history exists VITAMIN D LEVEL ONCE IN A LIFETIME-USE SMARTSET# [id number] Completed 12/27/2022, 08/12/2022, 03/15/2022, Additional history exists [...] as of this encounter Visit Diagnoses Diagnosis Essential (primary) hypertension- Primary Unspecified essential hypertension documented in this encounter Care Teams Media Operator Relationship Specialty Start Date End Date Tameka Hooper MD [address] [place] [address] [place] [address] PCP - General Family Medicine 05/29/19 documented as of this encounter
--- OUTSIDE RECORDS SUMMARY | 2023-07-25 20:59 | External Medical Summary | Summary of Care ---
Author Name Unknown Organization [facility] Address [address] [place] [address] Phone [phone] Care Team Providers Care Clother In Name Role Phone Tameka Hooper MD Primary Care Prov ider Reason for Visit * Reason Onset Date Comments Med Request 04/12/2023 Encounter Details Date Type Department Care Team Description 04/12/2023 Telephone Family Medicine [address] [phone] Tameka Hooper MD [address] [place] [address] [place] [address] Med Request Allergies Active Allergy Reactions Severity Noted Date Comments Amoxicillin Rash 02/07/2020 Bactrim Rash 12/15/2011 Ciprofloxacin Rash 12/15/2011 Diltiazem Rash 05/29/2019 Piroxicam Rash 12/15/2011 Cephalexin Rash 12/15/2011 Meloxicam Rash 05/29/2019 Other reaction(s): Other Cilostazol Rash,Unknown 12/15/2011 Sulfamethoxazole High 01/19/2023 Other Reaction(s): Rash Trimethoprim High 01/19/2023 Other Reaction(s): Rash documented as of this encounter (statuses as of 04/20/2023) Medications Medication Sig Dispensed Refills Start Date End Date Status [place]-3 Fatty Acids (FISH OIL) 500 MG Capsule [...] MCG/ACT Inhalation Aerosol SolutionIndications :COPD, moderate (HCC) Inhale 2 Puffs by mouth as needed for Cough, Shortness of Breath or Wheezing. 18 g 5 12/07/2022 Active Nystatin 220697 UNIT/GM External CreamIndications:Ye ast dermatitis Apply topically [...] as directed.. 42.5 g 3 01/06/2023 Active Fluorouracil 5 % External Cream (Efudex)Indications :Actinic keratosis Start 03/20/23: apply thin layer to nose and upper lip 2x daily until 04/10/23 2:20pm derm appointment 40 g 0 03/15/2023 Active Solifenacin Succinate 5 MG Oral Tablet (VESIcare)Indicatio [...] EVERY DAY IN THE MORNING 0 Active documented as of this encounter (statuses as of 04/20/2023) Active Problems Problem Noted Date Other specified [...] as of this encounter (statuses as of 04/20/2023) Resolved Problems Problem Noted Date Resolved Date [...] as of this encounter (statuses as of 04/20/2023) Immunizations Name Administration Dates Next Due COVID-19 [...] encounter Miscellaneous Notes * Telephone Encounter - Dominic Borrego LPN - 04/20/2023 8:09 AM EDT Form faxed today to [facility] * Telephone Encounter - Dominic Borrego LPN - 04/19/2023 4:45 PM EDT Form In PCP box to sign from [facility] * Telephone Encounter - Mary Lou Macdonald RN - 04/13/2023 9:56 AM EDT Order [id number] for Eliazar Beaulieu (1940) is being fulfilled by [facility]. If you need assistance with this order, please call . * Telephone Encounter - Mary Lou Macdonald RN - 04/13/2023 9:11 AM EDT I called patient to ask questions about her system,[facility] form sent * Addendum Note - Mary Lou Macdonald RN - 04/13/2023 8:52 AM EDTAddended by: MARY LOU MACDONALD on: 04/13/2023 08:52 AM Modules accepted: Orders * Telephone Encounter - Mary Lou Macdonald RN - 04/13/2023 8:32 AM EDT Pt uses [address] [address] , this needs sent to [email or web address] * Telephone Encounter - Keiry Mcdowell CPhT - 04/12/2023 2:30 PM EDT Patient is very low and is asking high priority, any questions please reach out to patient An order was requested for this patient. Name of Requestor: Eliazar Christofer Order Request: Ostomy Supplies - ROUTE TO CLINIC NURSE POOL Diagnosis/Reason for Request: Ostomy Does the order need to be faxed somewhere? If so, where?: [facility] Fax Number, if applicable: [phone] Call Back Number: [phone] Thank you, Keiry Mcdowell CPhT Clinical Research Specialist [facility] ([facility]formerly telepharmacy) 04/12/2023,2:30 PM documented in this encounter Plan of Treatment Upcoming Encounters Date Type Specialty Care Team Description 05/22/2023 Office Visit Dermatology Anya Pratt PA-C [address] [place] [address] [place] [address] 06/19/2023 Office Visit Nephrology Nicole Lange MD [address] [place], [place] [address] [address] 08/08/2023 Office Visit Family Medicine Tameka Hooper MD [address] [place] [address] [place] [address] 08/14/2023 Nurse Only Ancillary [place], Nurse Annual [facility] [address] [place] [address] [place] [address] 09/01/2023 Office Visit Sleep Disorders Lynn Busby, DO [address] [place] [address] 10/23/2023 Office Visit Rheumatology Jessica Stubbs CRNP [address] [facility], [place] [address] 10/31/2023 Cardiac Studies Cardiac Studies Scheduled Procedures [...] Additional history exists CKD PHOS USE SMARTSET 67615 12/28/202312/02, 04/26/2022, 11/23/2021, Additional history exists CKD HGB USE SMARTSET 03239 02/29/202402/28, 02/28/2023, 02/14/2023, Additional history exists O2 ASSESSMENT COMPLETED IN PAST YEAR FOR COPD 02/29/2024 02/28/2023 DXA Scan 08/01/2024 08/01/2022, 10/2020, 11/21/2013 COLONOSCOPY-EVERY 5 YRS AGES 18-100 02/23/2027 02/23/2022, 08/01/2019, 08/01/2019 DTaP,Tdap,and Td Vaccines (2 - Td or Tdap) 08/07/2030 08/07/2020 (Not indicated), 09/01/1998 Pneumococcal Vaccine: 65+ Years Completed 05/16/2016, 12/01/2014, 12/01/2013, Additional history exists VITAMIN D LEVEL ONCE IN A LIFETIME-USE SMARTSET# [id number] Completed 12/27/2022, 08/12/2022, 03/15/2022, Additional history exists [...] as of this encounter Visit Diagnoses Diagnosis Colostomy status (HCC)- Primary Colostomy status documented in this encounter Care Teams Clother In Relationship Specialty Start Date End Date Tameka Hooper MD [address] [place] [address] [place] [address] PCP - General Family Medicine 05/29/19 documented as of this encounter
--- OUTSIDE RECORDS SUMMARY | 2023-07-25 20:59 | External Medical Summary | Summary of Care ---
Author Name Unknown Organization [facility] Address [address] [place] [address] Phone [phone] Care Team Providers Care Skip Load Driver Name Role Phone Tameka Hooper MD Primary Care Prov ider Reason for Visit * Reason Onset Date Comments Med Request 04/12/2023 Encounter Details Date Type Department Care Team Description 04/12/2023 Telephone Family Medicine [address] [phone] Tameka Hooper MD [address] [place] [address] [place] [address] Med Request Allergies Active Allergy Reactions Severity Noted Date Comments Amoxicillin Rash 02/07/2020 Bactrim Rash 12/15/2011 Ciprofloxacin Rash 12/15/2011 Diltiazem Rash 05/29/2019 Piroxicam Rash 12/15/2011 Cephalexin Rash 12/15/2011 Meloxicam Rash 05/29/2019 Other reaction(s): Other Cilostazol Rash,Unknown 12/15/2011 Sulfamethoxazole High 01/19/2023 Other Reaction(s): Rash Trimethoprim High 01/19/2023 Other Reaction(s): Rash documented as of this encounter (statuses as of 04/13/2023) Medications Medication Sig Dispensed Refills Start Date End Date Status [place]-3 Fatty Acids (FISH OIL) 500 MG Capsule [...] Wheezing. 18 g 5 12/07/2022 Active Nystatin 683325 UNIT/GM External CreamIndications:Ye ast dermatitis Apply topically [...] as of this encounter (statuses as of 04/13/2023) Active Problems Problem Noted Date Other specified [...] as of this encounter (statuses as of 04/13/2023) Resolved Problems Problem Noted Date Resolved Date [...] as of this encounter (statuses as of 04/13/2023) Immunizations Name Administration Dates Next Due COVID-19 [...] encounter Miscellaneous Notes * Telephone Encounter - Keiry Mcdowell CPhT - 04/12/2023 2:30 PM EDT Patient is very low and is asking high priority, any questions please reach out to patient An order was requested for this patient. Name of Requestor: Eliazar Beaulieu Order Request: Ostomy Supplies - ROUTE TO CLINIC NURSE POOL Diagnosis/Reason for Request: Ostomy Does the order need to be faxed somewhere? If so, where?: [facility] Fax Number, if applicable: [phone] Call Back Number: [phone] Thank you, Keiry Mcdowell CPhT Epic Analyst [facility] ([facility]formerly telepharmacy) 04/12/2023,2:30 PM documented in this encounter Plan of Treatment Upcoming Encounters Date Type Specialty Care Team Description 05/22/2023 Office Visit Dermatology Anya Pratt PA-C [address] [place] [address] [place] [address] 06/19/2023 Office Visit Nephrology Nicole Lange MD [address] [place] [address] 08/08/2023 Office Visit Family Medicine Tameka Hooper MD [address] [place] [address] [place] [address] 08/14/2023 Nurse Only Ancillary [place], Nurse Annual [facility]ness [address] [place] [address] [place] [address] 09/01/2023 Office Visit Sleep Disorders Lynn Busby, DO [address] [place] [address] 10/23/2023 Office Visit Rheumatology Jessica Stubbs CRNP [address] [facility] [place] [address] 10/31/2023 Cardiac Studies Cardiac Studies Scheduled Procedures [...] Additional history exists CKD PHOS USE SMARTSET 12415 12/28/202312/02, 04/26/2022, 11/23/2021, Additional history exists CKD HGB USE SMARTSET 27581 02/29/202402/28, 02/28/2023, 02/14/2023, Additional history exists O2 ASSESSMENT COMPLETED IN PAST YEAR FOR COPD 02/29/2024 02/28/2023 DXA Scan 08/01/2024 08/01/2022, 01/0 10/2020, 11/21/2013 COLONOSCOPY-EVERY 5 YRS AGES 18-100 02/23/2027 02/23/2022, 08/01/2019, 08/01/2019 DTaP,Tdap,and Td Vaccines (2 - Td or Tdap) 08/07/2030 08/07/2020 (Not indicated), 09/01/1998 Pneumococcal Vaccine: 65+ Years Completed 05/16/2016, 12/01/2014, 12/01/2013, Additional history exists VITAMIN D LEVEL ONCE IN A LIFETIME-USE SMARTSET# 87657 Completed 12/27/2022, 08/12/2022, 03/15/2022, Additional history exists [...] filedocumented as of this encounter Care Teams Skip Load Driver Relationship Specialty Start Date End Date Tameka Hooper MD [address] [place] [address] [place] [address] PCP - General Family Medicine 05/29/19 documented as of this encounter
--- OUTSIDE RECORDS SUMMARY | 2023-07-25 20:59 | External Medical Summary | Summary of Care ---
Author Name Unknown Organization [facility] Address [address] [facility] [place] [address] Phone [phone] Care Team Providers Care 3D Technologist Name Role Phone Tameka Hooper MD Primary Care Prov ider Reason for Visit * Reason Comments eRx-Medication Refill Encounter Details Date Type Department Care Team Description 03/30/2023 Refill Cardiology, [facility] [address] [place] [address] Peggy Cabral, [address] [place] [address] Chronic atrial fibrillation (HCC) Allergies Active Allergy Reactions Severity Noted Date Comments Amoxicillin Rash 02/07/2020 Bactrim Rash 12/15/2011 Ciprofloxacin Rash 12/15/2011 Diltiazem Rash 05/29/2019 Piroxicam Rash 12/15/2011 Cephalexin Rash 12/15/2011 Meloxicam Rash 05/29/2019 Other reaction(s): Other Cilostazol Rash,Unknown 12/15/2011 Sulfamethoxazole High 01/19/2023 Other Reaction(s): Rash Trimethoprim High 01/19/2023 Other Reaction(s): Rash documented as of this encounter (statuses as of 04/10/2023) Medications Medication Sig Dispensed Refills Start Date End Date Status Raphine-3 Fatty Acids (FISH OIL) 500 MG Capsule [...] A DAY 180 Tablet 3 3 Active Ferrous Sulfate 325 (65 Fe) MG Oral Tablet (Feosol) TAKE 1 TABLET BY MOUTH EVERY DAY WITH BREAKFAST 90 Tablet 1 3 Active Verapamil HCl ER 240 MG Oral Capsule Extended Release 24 HourIndications: Chronic atrial fibrillation (HCC) TAKE 1 CAPSULE BY MOUTH EVERY DAY 90 Capsule 1 3 Active Ipratropium-Albu terol 0.5-2.5 (3) MG/3ML Inhalation Solution (Duoneb)Indicati ons:COPD, moderate (HCC) INHALE 1 VIAL VIA NEBULIZER EVERY 6 HOURS NEEDED FOR WHEEZING 360 mL 5 3 Active ProAir HFA 108 (90 Base) MCG/ACT Inhalation Aerosol SolutionIndicati ons:COPD, moderate (HCC) Inhale 2 Puffs by mouth as needed for Cough, Shortness of Breath or Wheezing. 18 g 5 3 Active Nystatin 649883 UNIT/GM External CreamIndications :Yeast dermatitis Apply topically [...] as directed.. 42.5 g 3 3 Active Fluorouracil 5 % External Cream (Efudex)Indicati ons:Actinic keratosis Start 03/20/23: apply thin layer to nose and upper lip 2x daily until 04/10/23 2:20pm derm appointment 40 g 0 3 Active Solifenacin Succinate 5 MG Oral Tablet (VESIcare)Indica tions:Urge incontinence,Uri nary frequency,Urinar y urgency,Mixed incontinence Take 1 Tablet by mouth in the morning. 90 Tablet 3 3 Active Lisinopril 2.5 MG Oral Tablet (Prinivil)Indica tions:Essential (primary) hypertension Take 1 Tablet by mouth in the morning. 90 Tablet 3 3 Active Xarelto 15 MG Oral Tablet (Rivaroxaban)Ind ications:Chronic atrial fibrillation (HCC) TAKE 1 TABLET BY MOUTH EVERY DAY 90 Tablet 3 3 Active Xarelto 15 MG Oral Tablet (Rivaroxaban)Ind ications:Chronic atrial fibrillation (HCC) TAKE 1 TABLET BY MOUTH EVERY DAY 90 Tablet 3 2 03/31/20 23 Discontinued Cefdinir 300 MG Oral Capsule (Omnicef)Indicat ions:Acute cystitis without hematuria Take 1 Capsule by mouth in the morning and 1 Capsule before bedtime. Until gone.. 10 Capsule 0 3 04/07/20 23 Discontinued(Med ication List Clean Up) documented as of this encounter (statuses as of 04/10/2023) Active Problems Problem Noted Date Other specified [...] as of this encounter (statuses as of 04/10/2023) Resolved Problems Problem Noted Date Resolved Date [...] as of this encounter (statuses as of 04/10/2023) Immunizations Name Administration Dates Next Due COVID-19 [...] encounter Miscellaneous Notes * Telephone Encounter - Cesilia Harding CPhT - 04/10/2023 2:00 PM EDT Pt calling to request Xarelto. Informed pt that RX is available at their pharmacy. Pt verbalized understanding and stated they will check with their pharmacy regarding this medication. Thank you, Cesilia Harding CPhT Bath Mix Operator Termination Clerk [facility] ([facility]) (Formerly Telepharmacy) 04/10/2023,2:00 PM * Telephone Encounter - Peggy Cabral DO - 03/31/2023 12:06 PM EDTSigned Prescriptions: Disp Refills Xarelto 15 MG Oral Tablet (Rivaroxaban) 90 Tab*3 Sig: TAKE 1 TABLET BY MOUTH EVERY DAY Authorizing Provider: PEGGY CABRAL * Telephone Encounter - XAVI Hastings - 03/31/2023 11:31 AM EDTPending Prescriptions: Disp Refills Xarelto 15 MG Oral Tablet [Pharmacy Med Na*90 Tab*3 Sig: TAKE 1 TABLET BY MOUTH EVERY DAY * Telephone Encounter - XAVI Hastings - 03/31/2023 11:30 AM EDT Did you pend patient's preferred pharmacy and medication before forwarding?yes Pharmacy: [id number] Pending Prescriptions: Disp Refills Xarelto 15 MG Oral Tablet (Rivaroxaban) [*90 Tab*3 Sig: TAKE 1 TABLET BY MOUTH EVERY DAY Last Visit: 03/02/2023 (in office), Visit date not found (telemedicine) Next Visit: Visit date not found If no future appointments scheduled, and last appointment is greater than a year ago, please schedule patient for a follow-up appointment Last date the medication was ordered: 04-06-2022 Is this request for a controlled substance?No [...] 05/22/2023 Office Visit Dermatology Anya Pratt PA-C [address] [place] [address] [place] [address] 06/19/2023 Office Visit Nephrology Nicole Lange MD [address] [place] [address] 08/08/2023 Office Visit Family Medicine Tameka Hooper MD [address] [place] [address] [place] [address] 08/14/2023 Nurse Only Ancillary [place], Nurse Annual Wellness [address] [place] [address] [place] [address] 09/01/2023 Office Visit Sleep Disorders Lynn Busby, DO [address] [place] [address] 10/23/2023 Office Visit Rheumatology Jessica Stubbs CRNP [address] [place] [address] [place], [place] [address] 10/31/2023 Cardiac Studies Cardiac Studies Scheduled Procedures [...] Additional history exists CKD PHOS USE SMARTSET 77157 12/28/202312/02, 04/26/2022, 11/23/2021, Additional history exists CKD HGB USE SMARTSET 71980 02/29/202402/28, 02/28/2023, 02/14/2023, Additional history exists O2 ASSESSMENT COMPLETED IN PAST YEAR FOR COPD 02/29/2024 02/28/2023 DXA Scan 08/01/2024 08/01/2022, 10/2020, 11/21/2013 COLONOSCOPY-EVERY 5 YRS AGES 18-100 02/23/2027 02/23/2022, 08/01/2019, 08/01/2019 DTaP,Tdap,and Td Vaccines (2 - Td or Tdap) 08/07/2030 08/07/2020 (Not indicated), 09/01/1998 Pneumococcal Vaccine: 65+ Years Completed 05/16/2016, 12/01/2014, 12/01/2013, Additional history exists VITAMIN D LEVEL ONCE IN A LIFETIME-USE SMARTSET# 14753 Completed 12/27/2022, 08/12/2022, 03/15/2022, Additional history exists [...] Diagnosis Chronic atrial fibrillation (HCC) Atrial fibrillation documented in this encounter Care Teams 3D Technologist Relationship Specialty Start Date End Date Tameka Hooper MD [address] [place] [address] [place] [address] PCP - General Family Medicine 05/29/19 documented as of this encounter
--- OUTSIDE RECORDS SUMMARY | 2023-07-25 20:59 | External Medical Summary | Summary of Care ---
Author Name Unknown Organization [facility] Address [address] [place] [address] Phone [phone] Care Team Providers Care Disc Inspector Name Role Phone Tameka Hooper MD Primary Care Prov ider Reason for Visit * Reason Onset Date Comments Med Request 04/12/2023 Encounter Details Date Type Department Care Team Description 04/12/2023 Telephone Family Medicine [address] [address] Tameka Hooper MD [address] [place] [address] [place] [address] Med Request Allergies Active Allergy Reactions Severity Noted Date Comments Amoxicillin Rash 02/07/2020 Bactrim Rash 12/15/2011 Ciprofloxacin Rash 12/15/2011 Diltiazem Rash 05/29/2019 Piroxicam Rash 12/15/2011 Cephalexin Rash 12/15/2011 Meloxicam Rash 05/29/2019 Other reaction(s): Other Cilostazol Rash,Unknown 12/15/2011 Sulfamethoxazole High 01/19/2023 Other Reaction(s): Rash Trimethoprim High 01/19/2023 Other Reaction(s): Rash documented as of this encounter (statuses as of 04/19/2023) Medications Medication Sig Dispensed Refills Start Date End Date Status [place]-3 Fatty Acids (FISH OIL) 500 MG Capsule [...] Wheezing. 18 g 5 12/07/2022 Active Nystatin 086509 UNIT/GM External CreamIndications:Ye ast dermatitis Apply topically [...] as of this encounter (statuses as of 04/19/2023) Active Problems Problem Noted Date Other specified [...] as of this encounter (statuses as of 04/19/2023) Resolved Problems Problem Noted Date Resolved Date [...] as of this encounter (statuses as of 04/19/2023) Immunizations Name Administration Dates Next Due COVID-19 [...] Form In PCP box to sign from [facility] * Telephone Encounter - Mary Lou Macdonald RN - 04/13/2023 9:56 AM EDT Order [id number] for Eliazar Beaulieu (1940) is being fulfilled by [facility]. If you need assistance with this order, please call . * Telephone Encounter - Mary Lou Macdonald RN - 04/13/2023 9:11 AM EDT I called patient to ask questions about her system,[employer] form sent * Addendum Note - Mary Lou Macdonald RN - 04/13/2023 8:52 AM EDTAddended by: MARY LOU MACDONALD on: 04/13/2023 08:52 AM Modules accepted: Orders * Telephone Encounter - Mary Lou Macdonald RN - 04/13/2023 8:32 AM EDT Pt uses [facility] [address] [place] [address] , this needs sent to [employer] * Telephone Encounter - Keiry Mcdowell CPhT [...] so, where?: [facility] Fax Number, if applicable: [phone] Call Back Number: [phone] Thank you, Keiry Mcdowell CPhT Calendering Supervisor [facility] ([facility])(formerly telepharmacy) 04/12/2023,2:30 PM documented in this encounter Plan of Treatment Upcoming Encounters Date Type Specialty Care Team Description 05/22/2023 Office Visit Dermatology Anya Pratt PA-C [address] [place] [address] [place] [address] 06/19/2023 Office Visit Nephrology Nicole Lange MD [address] [facility] [place] [address] 08/08/2023 Office Visit Family Medicine Tameka Hooper MD [address] [place] [address] [place] [address] 08/14/2023 Nurse Only Ancillary [place], Nurse Annual Wellness [address] [place] [address] [place] [address] 09/01/2023 Office Visit Sleep Disorders Lynn Busby, DO [address] [place] [address] 10/23/2023 Office Visit [facility] [address] [facility] [address] 10/31/2023 Cardiac Studies Cardiac Studies Scheduled Procedures Name Priority Associated Diagnoses Date/Ti me COLONOSCOPY FLEXIBLE PROXIMAL DIAGNOSTIC Recall History of colon polyps Health Maintenance Due Date Last Done Comments DISCUSS TOBACCO CESSATION (REFER TO SMARTSET #1464) 1940 COVID-19 Vaccine ( - season) 2023 06/01/2021, 10/20/2020, 09/15/2020 Influenza Vaccine (FLU shot) (#1) 2023 Depression Screening 08/11/2023 08/11/2022 Albumin/Creatinine Ratio 08/15/2023 08/15/2022, 01/31 GFR 08/17/2023 02/14/2023, 12/02, 08/12/2022, Additional history exists CKD PHOS USE SMARTSET 10568 12/28/202312/02, 04/26/2022, 11/23/2021, Additional history exists CKD HGB USE SMARTSET 23529 02/29/202402/28, 02/28/2023, 02/14/2023, Additional history exists O2 ASSESSMENT COMPLETED IN PAST YEAR FOR COPD 02/29/2024 02/28/2023 DXA Scan 08/01/2024 08/01/2022, 10/2020, 11/21/2013 COLONOSCOPY-EVERY 5 YRS AGES 18-100 02/23/2027 02/23/2022, 08/01/2019, 08/01/2019 DTaP,Tdap,and Td Vaccines (2 - Td or Tdap) 08/07/2030 08/07/2020 (Not indicated), 09/01/1998 Pneumococcal Vaccine: 65+ Years Completed 05/16/2016, 12/01/2014, 12/01/2013, Additional history exists VITAMIN D LEVEL ONCE IN A LIFETIME-USE SMARTSET# 00567 Completed 12/27/2022, 08/12/2022, 03/15/2022, Additional history exists [...] status documented in this encounter Care Teams Disc Inspector Relationship Specialty Start Date End Date Tameka Hooper MD [address] [place] [address] [place] [address] PCP - General Family Medicine 05/29/19 documented as of this encounter
--- OUTSIDE RECORDS SUMMARY | 2023-07-25 20:59 | External Medical Summary | Summary of Care ---
Author Name Unknown Organization [facility] Address [address] [place] [address] Phone [phone] Care Team Providers Care Carpenter Helper Maintenance Name Role Phone Tameka Hooper MD Primary Care Prov ider Encounter Details Date Type Department Care Team Description 04/06/2023 Telephone [address]erm[address] [place] [address] Anya Pratt PA-C [address] [place] [address] [place] [address] Allergies Active Allergy Reactions Severity Noted Date Comments Amoxicillin Rash 02/07/2020 Bactrim Rash 12/15/2011 Ciprofloxacin Rash 12/15/2011 Diltiazem Rash 05/29/2019 Piroxicam Rash 12/15/2011 Cephalexin Rash 12/15/2011 Meloxicam Rash 05/29/2019 Other reaction(s): Other Cilostazol Rash,Unknown 12/15/2011 documented as of this encounter (statuses as of 04/06/2023) Medications Medication Sig Dispensed Refills Start Date End Date Status [place]-3 Fatty Acids (FISH OIL) 500 MG Capsule [...] Wheezing. 18 g 5 12/07/2022 Active Nystatin 386878 UNIT/GM External CreamIndications:Ye ast dermatitis Apply topically [...] 01/06/2023 Active Cefdinir 300 MG Oral Capsule (Omnicef)Indication s:Acute cystitis without hematuria Take 1 Capsule by mouth in the morning and 1 Capsule before bedtime. Until gone.. 10 Capsule 0 01/06/2023 Active Additional Information Patient not taking.Reported on 02/03/2023 Fluorouracil 5 % External Cream (Efudex)Indications :Actinic [...] EVERY DAY 90 Tablet 3 03/31/2023 Active documented as of this encounter (statuses as of 04/06/2023) Active Problems Problem Noted Date Other specified [...] as of this encounter (statuses as of 04/06/2023) Resolved Problems Problem Noted Date Resolved Date [...] as of this encounter (statuses as of 04/06/2023) Immunizations Name Administration Dates Next Due COVID-19 [...] on file documented as of this encounter Plan of Treatment Upcoming Encounters Date Type Specialty Care Team Description 04/07/2023 Nurse Only Rheumatology Aneesh, Nurse Rheum Mo [address] [place] [address] [place] [address] 04/10/2023 Office Visit Dermatology Anya Pratt PA-C [address] [place] [address] [place] [phone] 04/21/2023 Office Visit Family Medicine Tameka Hooper MD [address] [place] [address] [place] [phone] 06/19/2023 Office Visit Nephrology Nicole Lange MD [address] [facility], [place] [phone] 08/14/2023 Nurse Only Ancillary [place], Nurse Annual Wellness [address] [place] [address] [place] [address] 09/01/2023 Office Visit Sleep Disorders Lynn Busby, DO [address] [place] [address] 10/23/2023 Office Visit Rheumatology Daniel Tapia MD [facility], [place] [id number] 10/31/2023 Cardiac Studies Cardiac Studies Scheduled Procedures Name Priority Associated Diagnoses Date/Ti me COLONOSCOPY FLEXIBLE PROXIMAL DIAGNOSTIC Recall History of colon polyps Health Maintenance Due Date Last Done Comments DISCUSS TOBACCO CESSATION (REFER TO SMARTSET #3291) 1940 COVID-19 Vaccine ( season) 2023 06/01/2021, 10/20/2020, 09/15/2020 Influenza Vaccine (FLU shot) (#1) 2023 *BISPHONATE OR OTHER ACCEPTABLE MEDICATION NEEDED FOR OSTEOPOROSIS (REFER TO SMARTSET #1146) 03/30/2023 Depression Screening 08/11/2023 08/11/2022 Albumin/Creatinine Ratio 08/15/2023 08/15/2022, 01/31 GFR 08/17/2023 02/14/2023, 12/02, 08/12/2022, Additional history exists CKD PHOS USE SMARTSET 52217 12/28/202312/02, 04/26/2022, 11/23/2021, Additional history exists CKD HGB USE SMARTSET 30604 02/29/202402/28, 02/28/2023, 02/14/2023, Additional history exists O2 ASSESSMENT COMPLETED IN PAST YEAR FOR COPD 02/29/2024 02/28/2023 DXA Scan 08/01/2024 08/01/2022, 10/2020, 11/21/2013 COLONOSCOPY-EVERY 5 YRS AGES 18-100 02/23/2027 02/23/2022, 08/01/2019, 08/01/2019 DTaP,Tdap,and Td Vaccines (2 - Td or Tdap) 08/07/2030 08/07/2020 (Not indicated), 09/01/1998 Pneumococcal Vaccine: 65+ Years Completed 05/16/2016, 12/01/2014, 12/01/2013, Additional history exists VITAMIN D LEVEL ONCE IN A LIFETIME-USE SMARTSET# 43236 Completed 12/27/2022, 08/12/2022, 03/15/2022, Additional history exists [...] filedocumented as of this encounter Care Teams Carpenter Helper Maintenance Relationship Specialty Start Date End Date Tameka Hooper MD [address] [place] [address] [place] [address] PCP - General Family Medicine 05/29/19 documented as of this encounter
--- OUTSIDE RECORDS SUMMARY | 2023-07-25 20:59 | External Medical Summary | Summary of Care ---
Author Name Unknown Organization [facility] Address [address] [place] [address] Phone [phone] Care Team Providers Care Buffing Wheel Operator Name Role Phone Tameka Hooper MD Primary Care Prov ider Reason for Visit * Reason Onset Date Comments Med Request 04/12/2023 Encounter Details Date Type Department Care Team Description 04/12/2023 Telephone Family Medicine [address] [address] Tameka Hooper MD [address] [place] [address] [place] [address] Med Request Allergies Active Allergy Reactions [...] Dispensed Refills Start Date End Date Status [place]-3 Fatty Acids (FISH OIL) 500 MG Capsule [...] Wheezing. 18 g 5 12/07/2022 Active Nystatin 469932 UNIT/GM External CreamIndications:Ye ast dermatitis Apply topically [...] encounter Miscellaneous Notes * Telephone Encounter - Mary Lou Macdonald RN - 04/13/2023 9:11 AM EDT I called patient to ask questions about her system,[employer] form sent * Addendum Note - Mary Lou Macdonald RN - 04/13/2023 8:52 AM EDTAddended by: MARY LOU MACDONALD on: 04/13/2023 08:52 AM Modules accepted: Orders * Telephone Encounter - Mary Lou Macdonald RN - 04/13/2023 8:32 AM EDT Pt uses [place] [address] , this needs sent to [employer] [facility] * Telephone Encounter - Keiry Mcdowell CPhT [...] so, where?: [facility] Fax Number, if applicable: [phone] Call Back Number: [phone] Thank you, Keiry Mcdowell CPhT Nurse Infection Control [facility] ([facility])(formerly telepharmacy) 04/12/2023,2:30 PM documented in this encounter Plan of Treatment Upcoming Encounters Date Type Specialty Care Team Description 05/22/2023 Office Visit Dermatology Anya Pratt PA-C [address] [place] [address] [place] [address] 06/19/2023 Office Visit Nephrology Nicole Lange MD [address] [place] [address] 08/08/2023 Office Visit Family Medicine Tameka Hooper MD [address] [place] [address] [place] [address] 08/14/2023 Nurse Only Ancillary [place], Nurse Annual Wellness [address] [place] [address] [place] [address] 09/01/2023 Office Visit Sleep Disorders Lynn Busby, [address] [place] [address] 10/23/2023 Office Visit Rheumatology Jessica Stubbs CRNP [address] [facility] [place] [address] 10/31/2023 Cardiac Studies Cardiac Studies Scheduled Procedures [...] Additional history exists CKD PHOS USE SMARTSET 02061 12/28/202312/02, 04/26/2022, 11/23/2021, Additional history exists CKD HGB USE SMARTSET 63171 02/29/202402/28, 02/28/2023, 02/14/2023, Additional history exists O2 ASSESSMENT COMPLETED IN PAST YEAR FOR COPD 02/29/2024 02/28/2023 DXA Scan 08/01/2024 08/01/2022, 10/2020, 11/21/2013 COLONOSCOPY-EVERY 5 YRS AGES 18-100 02/23/2027 02/23/2022, 08/01/2019, 08/01/2019 DTaP,Tdap,and Td Vaccines (2 - Td or Tdap) 08/07/2030 08/07/2020 (Not indicated), 09/01/1998 Pneumococcal Vaccine: 65+ Years Completed 05/16/2016, 12/01/2014, 12/01/2013, Additional history exists VITAMIN D LEVEL ONCE IN A LIFETIME-USE SMARTSET# 45155 Completed 12/27/2022, 08/12/2022, 03/15/2022, Additional history exists [...] status documented in this encounter Care Teams Buffing Wheel Operator Relationship Specialty Start Date End Date Tameka Hooper MD [address] [place] [address] [place] [address] PCP - General Family Medicine 05/29/19 documented as of this encounter
--- OUTSIDE RECORDS SUMMARY | 2023-07-25 20:59 | External Medical Summary | Summary of Care ---
Author Name Unknown Organization [facility] Address [address] [place] [facility] [place] [address] Phone [phone] Care Team Providers Care Oracle Hrms Consultant Name Role Phone Tameka Hooper MD Primary Care Prov ider Reason for Visit * Reason Onset Date Comments Other 04/12/2023 Encounter Details Date Type Department Care Team Description 04/12/2023 Telephone Gastroenterology, [facility] [address] [place] [address] Gasper Kim, [address] [place] [address] Other Allergies Active Allergy Reactions Severity Noted Date Comments Amoxicillin Rash 02/07/2020 Bactrim Rash 12/15/2011 Ciprofloxacin Rash 12/15/2011 Diltiazem Rash 05/29/2019 Piroxicam Rash 12/15/2011 Cephalexin Rash 12/15/2011 Meloxicam Rash 05/29/2019 Other reaction(s): Other Cilostazol Rash,Unknown 12/15/2011 Sulfamethoxazole High 01/19/2023 Other Reaction(s): Rash Trimethoprim High 01/19/2023 Other Reaction(s): Rash documented as of this encounter (statuses as of 04/12/2023) Medications Medication Sig Dispensed Refills Start Date End Date Status [place]-3 Fatty Acids (FISH OIL) 500 MG Capsule [...] Wheezing. 18 g 5 12/07/2022 Active Nystatin 208595 UNIT/GM External CreamIndications:Ye ast dermatitis Apply topically [...] as of this encounter (statuses as of 04/12/2023) Active Problems Problem Noted Date Other specified [...] as of this encounter (statuses as of 04/12/2023) Resolved Problems Problem Noted Date Resolved Date [...] as of this encounter (statuses as of 04/12/2023) Immunizations Name Administration Dates Next Due COVID-19 [...] encounter Miscellaneous Notes * Telephone Encounter - Beverly Lee RN - 04/12/2023 2:21 PM EDT Pt calling to ask if we can re-order her ostomy supplies. I told her our office does not typically order the supplies for ostomies for patients. Sometimes PCP's order this for the patient. She is going to verify with her company who ordered it last for her and call that office. documented in this encounter Plan of Treatment Upcoming Encounters Date Type Specialty Care Team Description 05/22/2023 Office Visit Dermatology Anya Pratt PA-C [address] [place] [address] [place] [address] 06/19/2023 Office Visit Nephrology Nicole Lange MD [address] [facility] [place] [address] 08/08/2023 Office Visit Family Medicine Tameka Hooper MD [address] [place] [address] [place] [address] 08/14/2023 Nurse Only Ancillary [place], Nurse Annual Wellness [address] [place] [address] [place] [address] 09/01/2023 Office Visit Sleep Disorders Lynn Busby, [address] [place] [address] 10/23/2023 Office Visit Rheumatology Jessica Stubbs CRNP [address] [employer] [place], [place] [address] 10/31/2023 Cardiac Studies Cardiac Studies Scheduled Procedures Name Priority Associated Diagnoses Date/Ti me COLONOSCOPY FLEXIBLE PROXIMAL DIAGNOSTIC Recall History of colon polyps Health Maintenance Due Date Last Done Comments DISCUSS TOBACCO CESSATION (REFER TO SMARTSET #8528) 1940 COVID-19 Vaccine ( season) 2023 06/01/2021, 10/20/2020, 09/15/2020 Influenza Vaccine (FLU shot) (#1) 2023 Depression Screening 08/11/2023 08/11/2022 Albumin/Creatinine Ratio 08/15/2023 08/15/2022, 01/31 GFR 08/17/2023 02/14/2023, 12/02, 08/12/2022, Additional history exists CKD PHOS USE SMARTSET 54074 12/28/202312/02, 04/26/2022, 11/23/2021, Additional history exists CKD HGB USE SMARTSET 94509 02/29/202402/28, 02/28/2023, 02/14/2023, Additional history exists O2 ASSESSMENT COMPLETED IN PAST YEAR FOR COPD 02/29/2024 02/28/2023 DXA Scan 08/01/2024 08/01/2022, 10/2020, 11/21/2013 COLONOSCOPY-EVERY 5 YRS AGES 18-100 02/23/2027 02/23/2022, 08/01/2019, 08/01/2019 DTaP,Tdap,and Td Vaccines (2 - Td or Tdap) 08/07/2030 08/07/2020 (Not indicated), 09/01/1998 Pneumococcal Vaccine: 65+ Years Completed 05/16/2016, 12/01/2014, 12/01/2013, Additional history exists VITAMIN D LEVEL ONCE IN A LIFETIME-USE SMARTSET# 08855 Completed 12/27/2022, 08/12/2022, 03/15/2022, Additional history exists [...] filedocumented as of this encounter Care Teams Oracle Hrms Consultant Relationship Specialty Start Date End Date Tameka Hooper MD [address] [place] [address] [place] [address] PCP - General Family Medicine 05/29/19 documented as of this encounter
--- OUTSIDE RECORDS SUMMARY | 2023-07-25 20:59 | External Medical Summary | Summary of Care ---
Author Name Unknown Organization [facility] [address] [facility] [address] Phone [phone] Care Team Providers Care Director Of Entertainment Name Role Phone Tameka Hooper MD Primary Care Prov ider Reason for Visit * Reason Onset Date Comments Medication Administration prolia Medication Administration 04/07/2023 Prolia Encounter Details Date Type Department Care Team Description 04/07/2023 Nurse Only Rheumatology [address] [place] [address] [place], Nurse Rheum [address] [place] [address] Medication Administration (prolia); Medica... Allergies Active Allergy Reactions Severity Noted Date Comments Amoxicillin Rash 02/07/2020 Bactrim Rash 12/15/2011 Ciprofloxacin Rash 12/15/2011 Diltiazem Rash 05/29/2019 Piroxicam Rash 12/15/2011 Cephalexin Rash 12/15/2011 Meloxicam Rash 05/29/2019 Other reaction(s): Other Cilostazol Rash,Unknown 12/15/2011 Sulfamethoxazole High 01/19/2023 Other Reaction(s): Rash Trimethoprim High 01/19/2023 Other Reaction(s): Rash documented as of this encounter (statuses as of 04/07/2023) Medications Medication Sig Dispensed Refills Start Date End Date Status [place]-3 Fatty Acids (FISH OIL) 500 MG Capsule [...] Wheezing. 18 g 5 12/07/2022 Active Nystatin 279252 UNIT/GM External CreamIndications:Y east dermatitis Apply topically [...] 01/06/2023 Active Fluorouracil 5 % External Cream (Efudex)Indication s:Actinic [...] 03/29/2023 Active Xarelto 15 MG Oral Tablet (Rivaroxaban)Indic [...] EVERY DAY IN THE MORNING 0 Active Cefdinir 300 MG Oral Capsule (Omnicef)Indicatio ns:Acute cystitis without hematuria Take 1 Capsule by mouth in the morning and 1 Capsule before bedtime. Until gone.. 10 Capsule 0 01/06/2023 3 Discontinue d(Medicatio n List Clean Up) Hospital, Clinic, or Other Facility Administered Medication Ordered Dose Route Frequency Start Date End Date Status Denosumab (Prolia) subcut inj 60 mgIndications:Senile osteoporosis 60 mg SC ONCE 04/07/2023 04/07/2023 Ended documented as of this encounter (statuses as of 04/07/2023) Active Problems Problem Noted Date Other specified [...] as of this encounter (statuses as of 04/07/2023) Resolved Problems Problem Noted Date Resolved Date [...] as of this encounter (statuses as of 04/07/2023) Immunizations Name Administration Dates Next Due COVID-19 [...] Day Cigarettes 0.3 60 Smokeless Tobacco: Never Tobacco Cessation:Ready to Q uit: Not Asked; Counseling Given: Not Answered Comments:5/day currently , pt is willing to try and quit. Alcohol [...] Sign Reading Time Taken Comments Blood Pressure - - Pulse - - Temperature 36.3 C (97.3 F) 04/07/2023 1:26 PM ED T Respiratory Rate - - Oxygen Saturation - - Inhaled Oxygen Concentration - - Weight - - Height - - Body Mass Index - - documented in this encounter Progress Notes * More Clarke LPN - 04/07/2023 2:06 PM EDT Eliazar Beaulieu presents today for administration of Prolia. She understands the benefits and risks of this treatment. An educational pamphlet was given to the patient. Prolia 60 mg was administered subcutaneously. The patient tolerated the procedure without problems. She will return in 6 months for the next injection and evaluation. More Clarke LPN documented in this encounter Nursing Notes * More Clarke LPN - 04/07/2023 1:26 PM EDT Chief Complaint Patient presents with Medication Administration prolia documented in this encounter Plan of Treatment Upcoming Encounters Date Type Specialty Care Team Description 04/10/2023 Office Visit Dermatology Anya Pratt PA-C [address] [place] [address] [place] [address] 06/19/2023 Office Visit Nephrology Nicole Lange MD [address] [place] [facility] [address] 08/08/2023 Office Visit Family Medicine Tameka Hooper MD [address] [place] [address] [place] [address] 08/14/2023 Nurse Only Ancillary [place], Nurse Annual Wellness [address] [place] [address] [place] [address] 09/01/2023 Office Visit Sleep Disorders Lynn Busby, DO [address] [place] [address] 10/23/2023 Office Visit Rheumatology Jessica Stubbs CRNP [facility] [employer] [place] [address] 10/31/2023 Cardiac Studies Cardiac Studies Scheduled Procedures [...] Additional history exists CKD PHOS USE SMARTSET 91162 12/28/202312/02, 04/26/2022, 11/23/2021, Additional history exists CKD HGB USE SMARTSET 60384 02/29/202402/28, 02/28/2023, 02/14/2023, Additional history exists O2 ASSESSMENT COMPLETED IN PAST YEAR FOR COPD 02/29/2024 02/28/2023 DXA Scan 08/01/2024 08/01/2022, 10/2020, 11/21/2013 COLONOSCOPY-EVERY 5 YRS AGES 18-100 02/23/2027 02/23/2022, 08/01/2019, 08/01/2019 DTaP,Tdap,and Td Vaccines (2 - Td or Tdap) 08/07/2030 08/07/2020 (Not indicated), 09/01/1998 Pneumococcal Vaccine: 65+ Years Completed 05/16/2016, 12/01/2014, 12/01/2013, Additional history exists VITAMIN D LEVEL ONCE IN A LIFETIME-USE SMARTSET# 32192 Completed 12/27/2022, 08/12/2022, 03/15/2022, Additional history exists [...] as of this encounter Visit Diagnoses Diagnosis Senile osteoporosis- Primary documented in this encounter Administered Medications Inactive Administered Medications - up to 3 most recent administrations Medication Order MAR Action Action Date Dose Rate Site Denosumab (Prolia) subcut inj 60 mg 60 mg, Subcutaneous, ONCE, On Mon04/07/23 at 1445, For 1 dose Given 04/07/2023 2:06 PM EDT 60 mg Arm L eft Upper documented in this encounter Care Teams Director Of Entertainment Relationship Specialty Start Date End Date Tameka Hooper MD [address] [place] [address] [place] [address] PCP - General Family Medicine 11/27/19 documented as of this encounter
--- OUTSIDE RECORDS SUMMARY | 2023-07-25 20:59 | External Medical Summary | Summary of Care ---
Author Name Unknown Organization [facility] Address [address] [place] [address] Phone [phone] Care Team Providers Care Product Analyst Name Role Phone aTmeka Hooper MD Primary Care Prov ider Reason for Visit * Reason Onset Date Comments Med Request 04/12/2023 Encounter Details Date Type Department Care Team Description 04/12/2023 Telephone Family Medicine [address] [address] Tameka Hooper MD [address] [place] [address] [place] [address] Med Request Allergies Active Allergy Reactions [...] Dispensed Refills Start Date End Date Status [place]-3 Fatty Acids (FISH OIL) 500 MG Capsule [...] Wheezing. 18 g 5 12/07/2022 Active Nystatin 437379 UNIT/GM External CreamIndications:Ye ast dermatitis Apply topically [...] RN - 04/13/2023 9:56 AM EDT Order [id number] for Eliazar Beaulieu (1940) is being fulfilled by [facility]. If you need assistance with this order, please call . * Telephone Encounter - Mary Lou Macdonald RN - 04/13/2023 9:11 AM EDT I called patient to ask questions about her system,I and love and [employer] form sent * Addendum Note - Mary Lou Macdonald RN - 04/13/2023 8:52 AM EDTAddended by: MARY LOU MACDONALD on: 04/13/2023 08:52 AM Modules accepted: Orders * Telephone Encounter - Mary Lou Macdonald RN - 04/13/2023 8:32 AM EDT Pt uses [place] [address] , this needs sent to [facility] * Telephone Encounter - Keiry Mcdowell CPhT [...] to be faxed somewhere? If so, where?: [place] Fax Number, if applicable: [phone] Call Back Number: [phone] Thank you, Keiry Mcdowell CPhT [facility] ([facility])(formerly telepharmacy) 04/12/2023,2:30 PM documented in this encounter Plan of Treatment Upcoming Encounters Date Type Specialty Care Team Description 05/22/2023 Office Visit Dermatology Anya Pratt PA-C [address] [place] [address] [place] [address] 06/19/2023 Office Visit Nephrology Nicole Lange MD [address] [facility] [place] [address] 08/08/2023 Office Visit Family Medicine Tameka Hooper MD [address] [place] [address] [place] [address] 08/14/2023 Nurse Only Ancillary [place], Nurse Annual Wellness [address] [place] [address] [place] [address] 09/01/2023 Office Visit Sleep Disorders Lynn Busby, DO [address] [place] [address] 10/23/2023 Office Visit Rheumatology Jessica Stubbs CRNP [address] [facility] [place] [address] 10/31/2023 Cardiac Studies Cardiac Studies Scheduled Procedures [...] Additional history exists CKD PHOS USE SMARTSET 54986 12/28/202312/02, 04/26/2022, 11/23/2021, Additional history exists CKD HGB USE SMARTSET 21143 02/29/202402/28, 02/28/2023, 02/14/2023, Additional history exists O2 ASSESSMENT COMPLETED IN PAST YEAR FOR COPD 02/29/2024 02/28/2023 DXA Scan 08/01/2024 08/01/2022, 10/2020, 11/21/2013 COLONOSCOPY-EVERY 5 YRS AGES 18-100 02/23/2027 02/23/2022, 08/01/2019, 08/01/2019 DTaP,Tdap,and Td Vaccines (2 - Td or Tdap) 08/07/2030 08/07/2020 (Not indicated), 09/01/1998 Pneumococcal Vaccine: 65+ Years Completed 05/16/2016, 12/01/2014, 12/01/2013, Additional history exists VITAMIN D LEVEL ONCE IN A LIFETIME-USE SMARTSET# 03999 Completed 12/27/2022, 08/12/2022, 03/15/2022, Additional history exists [...] status documented in this encounter Care Teams Product Analyst Relationship Specialty Start Date End Date Tameka Hooper MD [address] [place] [address] [place] [address] PCP - General Family Medicine 05/29/19 documented as of this encounter
--- OUTSIDE RECORDS SUMMARY | 2023-07-25 20:59 | External Medical Summary | Summary of Care ---
Author Name Unknown Organization [facility] Address [address] [place] [facility] [place] [address] Phone [phone] Care Team Providers Care Wheelchair Rental Clerk Name Role Phone Tameka Hooper MD Primary Care Prov ider Reason for Visit * Reason Comments eRx-Medication Refill Encounter Details Date Type Department Care Team Description 03/30/2023 Refill Cardiology, [facility] [address] [place] [address] Peggy Cabral, [address] [place] [address] Chronic atrial fibrillation (HCC) Allergies Active Allergy Reactions Severity Noted Date Comments Amoxicillin Rash 02/07/2020 Bactrim Rash 12/15/2011 Ciprofloxacin Rash 12/15/2011 Diltiazem Rash 05/29/2019 Piroxicam Rash 12/15/2011 Cephalexin Rash 12/15/2011 Meloxicam Rash 05/29/2019 Other reaction(s): Other Cilostazol Rash,Unknown 12/15/2011 documented as of this encounter (statuses as of 03/31/2023) Medications Medication Sig Dispensed Refills Start Date End Date Status [place]-3 Fatty Acids (FISH OIL) 500 MG Capsule [...] Wheezing. 18 g 5 12/07/2022 Active Nystatin 072810 UNIT/GM External CreamIndications: Yeast dermatitis Apply topically [...] 01/06/2023 Active Cefdinir 300 MG Oral Capsule (Omnicef)Indicati ons:Acute cystitis without hematuria Take 1 Capsule by mouth in the morning and 1 Capsule before bedtime. Until gone.. 10 Capsule 0 01/06/2023 Active Additional Information Patient not taking.Reported on 02/03/2023 Fluorouracil 5 % External Cream (Efudex)Indicatio ns:Actinic [...] EVERY DAY 90 Tablet 3 03/31/2023 Active Xarelto 15 MG Oral Tablet (Rivaroxaban)Silvana cations:Chronic atrial fibrillation (HCC) TAKE 1 TABLET BY MOUTH EVERY DAY 90 Tablet 3 04/06/2022 03/31/20 23 Discontinued documented as of this encounter (statuses as of 03/31/2023) Active Problems Problem Noted Date Other specified [...] as of this encounter (statuses as of 03/31/2023) Resolved Problems Problem Noted Date Resolved Date [...] as of this encounter (statuses as of 03/31/2023) Immunizations Name Administration Dates Next Due COVID-19 [...] encounter Miscellaneous Notes * Telephone Encounter - Peggy Cabral DO [...] preferred pharmacy and medication before forwarding?yes Pharmacy: [id number] [id number] [facility] Pending Prescriptions: Disp Refills Xarelto 15 MG [...] Care Team Description 04/07/2023 Nurse Only Rheumatology [place], Nurse Rheum [address] [place] [id number] 04/10/2023 Office Visit Dermatology Anya Pratt PA-C [address] [place] [address] [place] [address] 04/21/2023 Office Visit Family Medicine Tameka Hooper MD [address] [place] [address] [place] [address] 06/19/2023 Office Visit Nephrology Nicole Lange MD [address] [place] [address] 08/14/2023 Nurse Only Ancillary Nurse hSelby Annual Wellness [address] [place] [address] [place] [address] 09/01/2023 Office Visit Sleep Disorders Lynn Busby, DO [address] [place] [address] 10/23/2023 Office Visit Rheumatology Daniel Tapia MD [address] [facility] [place], [place] [address] 10/31/2023 Cardiac Studies Cardiac Studies Scheduled Procedures Name Priority Associated Diagnoses Date/Ti me COLONOSCOPY FLEXIBLE PROXIMAL DIAGNOSTIC Recall History of colon polyps Health Maintenance Due Date Last Done Comments DISCUSS TOBACCO CESSATION (REFER TO SMARTSET #3291) 1940 COVID-19 Vaccine (4 - Moderna series) 07/27/2021 06/01/2021, 10/20/2020, 09/15/2020 Influenza Vaccine (FLU shot) (#1) 2023 *BISPHONATE OR OTHER ACCEPTABLE MEDICATION NEEDED FOR OSTEOPOROSIS (REFER TO SMARTSET #1146) 03/30/2023 Depression Screening 08/11/2023 08/11/2022 Albumin/Creatinine Ratio 08/15/2023 08/15/2022, 01/31 GFR 08/17/2023 02/14/2023, 12/02, 08/12/2022, Additional history exists CKD PHOS USE SMARTSET 37271 12/28/202312/02, 04/26/2022, 11/23/2021, Additional history exists CKD HGB USE SMARTSET 16673 02/29/202402/28, 02/28/2023, 02/14/2023, Additional history exists O2 ASSESSMENT COMPLETED IN PAST YEAR FOR COPD 02/29/2024 02/28/2023 DXA Scan 08/01/2024 08/01/2022, 10/2020, 11/21/2013 COLONOSCOPY-EVERY 5 YRS AGES 18-100 02/23/2027 02/23/2022, 08/01/2019, 08/01/2019 DTaP,Tdap,and Td Vaccines (2 - Td or Tdap) 08/07/2030 08/07/2020 (Not indicated), 09/01/1998 Pneumococcal Vaccine: 65+ Years Completed 05/16/2016, 12/01/2014, 12/01/2013, Additional history exists VITAMIN D LEVEL ONCE IN A LIFETIME-USE SMARTSET# 15909 Completed 12/27/2022, 08/12/2022, 03/15/2022, Additional history exists [...] fibrillation documented in this encounter Care Teams Wheelchair Rental Clerk Relationship Specialty Start Date End Date Tameka Hooper MD [address] [place] [address] [place] [address] PCP - General Family Medicine 05/29/19 documented as of this encounter
--- OUTSIDE RECORDS SUMMARY | 2023-07-25 20:59 | External Medical Summary | Summary of Care ---
Author Name Unknown Organization [facility] Address [address] [place] [address] Phone [phone] Care Team Providers Care Sterilizer Machine Operator Name Role Phone Tameka Hooper MD Primary Care Prov ider Reason for Visit * Reason Onset Date Comments Medication Question 03/20/2023 Encounter Details Date Type Department Care Team Description 03/20/2023 Telephone Urogynecology [facility] [address] [place] [address] [place] PA-C [address] [place] [address] Medication Question Allergies Active Allergy Reactions Severity Noted Date Comments Amoxicillin Rash 02/07/2020 Bactrim Rash 12/15/2011 Ciprofloxacin Rash 12/15/2011 Diltiazem Rash 05/29/2019 Piroxicam Rash 12/15/2011 Cephalexin Rash 12/15/2011 Meloxicam Rash 05/29/2019 Other reaction(s): Other Cilostazol Rash,Unknown 12/15/2011 documented as of this encounter (statuses as of 03/23/2023) Medications Medication Sig Dispensed Refills Start Date End Date Status [place]-3 Fatty Acids (FISH OIL) 500 MG Capsule [...] 02/14/2022 Active Xarelto 15 MG Oral Tablet (Rivaroxaban)Indica [...] Wheezing. 18 g 5 12/07/2022 Active Nystatin 943982 UNIT/GM External CreamIndications:Ye ast dermatitis Apply topically [...] Additional Information Patient not taking.Reported on 02/03/2023 Lisinopril 2.5 MG Oral Tablet (Prinivil) Take 1 Tablet by mouth in the morning. 30 Tablet 11 03/02/2023 Active Fluorouracil 5 % External Cream (Efudex)Indications :Actinic keratosis Start 03/20/23: apply thin layer to nose and upper lip 2x daily until 04/10/23 2:20pm derm appointment 40 g 0 03/15/2023 Active Solifenacin Succinate 5 MG Oral Tablet (VESIcare)Indicatio ns:Urge incontinence,Urinar y frequency,Urinary urgency,Mixed incontinence Take 1 Tablet by mouth in the morning. 90 Tablet 3 03/20/2023 Active documented as of this encounter (statuses as of 03/23/2023) Active Problems Problem Noted Date Other specified [...] as of this encounter (statuses as of 03/23/2023) Resolved Problems Problem Noted Date Resolved Date [...] as of this encounter (statuses as of 03/23/2023) Immunizations Name Administration Dates Next Due COVID-19 [...] encounter Miscellaneous Notes * Telephone Encounter - Merari Ervin RN - 03/23/2023 4:06 PM EDT Called patient to discuss scheduling a follow-up to discuss treatment options but she states that anew medication was ordered for her and she has only taken 2 days worth. She would like to see how she does with the new medication. * Telephone Encounter - Zulay Haas LPN - 03/20/2023 2:52 PM EDT Attempted to contact patient. No answer on home line - LM with call back number. Mobile line goes straight to voicemail - no voicemail set up. * Telephone Encounter - Bel Villa PA-C - 03/20/2023 2:40 PM EDT Patient needs to schedule f/u appt to discuss treatment options. Thanks! * Telephone Encounter - Brenda Barron LPN - 03/20/2023 2:33 PM EDT Patient called to let Bel know the pills she was given are not helping. documented in this encounter Plan of Treatment Upcoming Encounters Date Type Specialty Care Team Description 04/07/2023 Nurse Only Rheumatology [place], Nurse Rheum [address] [place] [address] 04/10/2023 Office Visit Dermatology Anya Pratt PA-C [address] [place] [address] [place] [address] 04/21/2023 Office Visit Family Medicine Tameka Hooper MD [address] [facility] [place] [address] 06/19/2023 Office Visit Nephrology LangeNicole williamson MD [address] [place] [facility] [place] [address] 08/14/2023 Nurse Only Ancillary [place], Nurse Annual Wellness [address] [place] [address] [place] [address] 09/01/2023 Office Visit Sleep Disorders Lynn Busby, DO [address] [place] [address] 10/23/2023 Office Visit Rheumatology Daniel Tapia MD [address] [facility], [place] [address] 10/31/2023 Cardiac Studies Cardiac Studies Scheduled Procedures Name Priority Associated Diagnoses Date/Ti me COLONOSCOPY FLEXIBLE PROXIMAL DIAGNOSTIC Recall History of colon polyps Health Maintenance Due Date Last Done Comments DISCUSS TOBACCO CESSATION (REFER TO SMARTSET #3298) 1940 COVID-19 Vaccine (4 - Moderna series) 07/27/2021 06/01/2021, 10/20/2020, 09/15/2020 Influenza Vaccine (FLU shot) (#1) 2023 Depression Screening 08/11/2023 08/11/2022 Albumin/Creatinine Ratio 08/15/2023 08/15/2022, 01/31 GFR 08/17/2023 02/14/2023, 12/02, 08/12/2022, Additional history exists CKD PHOS USE SMARTSET 85683 12/28/202312/02, 04/26/2022, 11/23/2021, Additional history exists CKD HGB USE SMARTSET 12168 02/29/202402/28, 02/28/2023, 02/14/2023, Additional history exists O2 ASSESSMENT COMPLETED IN PAST YEAR FOR COPD 02/29/2024 02/28/2023 DXA Scan 08/01/2024 08/01/2022, 10/2020, 11/21/2013 COLONOSCOPY-EVERY 5 YRS AGES 18-100 02/23/2027 02/23/2022, 08/01/2019, 08/01/2019 DTaP,Tdap,and Td Vaccines (2 - Td or Tdap) 08/07/2030 08/07/2020 (Not indicated), 09/01/1998 Pneumococcal Vaccine: 65+ Years Completed 05/16/2016, 12/01/2014, 12/01/2013, Additional history exists VITAMIN D LEVEL ONCE IN A LIFETIME-USE SMARTSET# 78891 Completed 12/27/2022, 08/12/2022, 03/15/2022, Additional history exists [...] filedocumented as of this encounter Care Teams Sterilizer Machine Operator Relationship Specialty Start Date End Date Tameka Hooper MD [address] [place] [address] [place] [id number] PCP - General Family Medicine 05/29/19 documented as of this encounter
--- OUTSIDE RECORDS SUMMARY | 2023-07-25 20:59 | External Medical Summary | Summary of Care ---
Author Name Unknown Organization [facility] Address [address] [place] [address] Phone [phone] Care Team Providers Care Cota Name Role Phone Tameka Hooper MD Primary Care Prov ider Reason for Visit * Reason Onset Date Comments Med Request 04/12/2023 Encounter Details Date Type Department Care Team Description 04/12/2023 Telephone Family Medicine [address] [address] Tameka Hooper MD [address] [place] [address] [place] [address] Med Request Allergies Active Allergy Reactions [...] Dispensed Refills Start Date End Date Status [place]-3 Fatty Acids (FISH OIL) 500 MG Capsule [...] Wheezing. 18 g 5 12/07/2022 Active Nystatin 893472 UNIT/GM External CreamIndications:Ye ast dermatitis Apply topically [...] as of this encounter Miscellaneous Notes * Addendum Note - MaryL ou Macdonald RN - 04/13/2023 8:52 AM EDTAddended by: MARY LOU MACDONALD on: 04/13/2023 08:52 AM Modules accepted: Orders * Telephone Encounter - Mary Lou Macdonadl RN - 04/13/2023 8:32 AM EDT Pt uses [place] [address] , [facility] * Telephone Encounter - Keiry Mcdowell [...] so, where?: [place] Fax Number, if applicable: [phone] Call Back Number: [phone] Thank you, Keiry Mcdowell CPhT [facility] ([facility])(formerly telepharmacy) 04/12/2023,2:30 PM documented in this encounter Plan of Treatment Upcoming Encounters Date Type Specialty Care Team Description 05/22/2023 Office Visit Dermatology Anya Pratt PA-C [address] [place] [address] [place] [address] 06/19/2023 Office Visit Nephrology Nicole Lange MD [address] [place] [address] 08/08/2023 Office Visit Family Medicine Tameka Hooper MD [address] [place] [address] [place] [address] 08/14/2023 Nurse Only Ancillary [place], Nurse Annual Wellness [address] [place] [address] [place] [address] 09/01/2023 Office Visit Sleep Disorders Lynn Bubsy, DO [address] [place] [address] 10/23/2023 Office Visit Rheumatology Jessica Stubbs CRNP [address] [facility] [place] [address] 10/31/2023 Cardiac Studies Cardiac Studies Scheduled Procedures [...] Additional history exists CKD PHOS USE SMARTSET 56447 12/28/202312/02, 04/26/2022, 11/23/2021, Additional history exists CKD HGB USE SMARTSET 93118 02/29/202402/28, 02/28/2023, 02/14/2023, Additional history exists O2 ASSESSMENT COMPLETED IN PAST YEAR FOR COPD 02/29/2024 02/28/2023 DXA Scan 08/01/2024 08/01/2022, 10/2020, 11/21/2013 COLONOSCOPY-EVERY 5 YRS AGES 18-100 02/23/2027 02/23/2022, 08/01/2019, 08/01/2019 DTaP,Tdap,and Td Vaccines (2 - Td or Tdap) 08/07/2030 08/07/2020 (Not indicated), 09/01/1998 Pneumococcal Vaccine: 65+ Years Completed 05/16/2016, 12/01/2014, 12/01/2013, Additional history exists VITAMIN D LEVEL ONCE IN A LIFETIME-USE SMARTSET# 32692 Completed 12/27/2022, 08/12/2022, 03/15/2022, Additional history exists [...] status documented in this encounter Care Teams Cota Relationship Specialty Start Date End Date Tameka Hooper MD [address] [place] [address] [place] [address] PCP - General Family Medicine 05/29/19 documented as of this encounter
--- OUTSIDE RECORDS SUMMARY | 2023-07-25 21:00 | External Medical Summary | Summary of Care ---
Author Name Unknown Organization [facility] Address [address] [place] [address] Phone [phone] Care Team Providers Care Call Person Name Role Phone Tameka Leone MD Primary Care Prov ider Reason for Visit * Reason Comments Follow Up 3 months for AKs, sp ots upper lip Encounter Details Date Type Department Care Team Description 03/15/2023 Office Visit Dermatology [address] [place] [address] Anya Pratt PA-C [address] [place] [address] [place] [address] Actinic keratosis* Allergies Active Allergy Reactions Severity Noted Date Comments Amoxicillin Rash 02/07/2020 Bactrim Rash 12/15/2011 Ciprofloxacin Rash 12/15/2011 Diltiazem Rash 05/29/2019 Piroxicam Rash 12/15/2011 Cephalexin Rash 12/15/2011 Meloxicam Rash 05/29/2019 Other reaction(s): Other Cilostazol Rash,Unknown 12/15/2011 documented as of this encounter (statuses as of 03/16/2023) Medications Medication Sig Dispensed Refills Start Date End Date Status [place]-3 Fatty Acids (FISH OIL) 500 MG Capsule [...] Wheezing. 18 g 5 12/07/2022 Active Nystatin 951871 UNIT/GM External CreamIndications:Ye ast dermatitis Apply topically [...] Additional Information Patient not taking.Reported on 02/03/2023 Solifenacin Succinate 5 MG Oral Tablet (VESIcare)Indicatio ns:Mixed incontinence,Urinar y frequency,Urge incontinence,Urinar y urgency Take 1 Tablet by mouth in the morning. 30 Tablet 0 02/22/2023 Active Additional Information Patient not taking.Reported on 02/28/2023 Lisinopril 2.5 MG Oral Tablet (Prinivil) Take 1 Tablet by mouth in the morning. 30 Tablet 11 03/02/2023 Active Fluorouracil 5 % External Cream (Efudex)Indications :Actinic keratosis Start 03/20/23: apply thin layer to nose and upper lip 2x daily until 04/10/23 2:20pm derm appointment 40 g 0 03/15/2023 Active documented as of this encounter (statuses as of 03/16/2023) Active Problems Problem Noted Date Other specified [...] as of this encounter (statuses as of 03/16/2023) Resolved Problems Problem Noted Date Resolved Date [...] as of this encounter (statuses as of 03/16/2023) Immunizations Name Administration Dates Next Due COVID-19 [...] on file documented as of this encounter Progress Notes * Tony Gale MD - 03/16/2023 7:40 AM EDT I have seen and examined the patient via teledermatology review of chart note and photos with Anya Pratt PA-C. I have reviewed and agree with the assessment and plan. * Magaly Lipscomb LPN - 03/15/2023 2:00 PM EDT Scheduled. * Anya Pratt PA-C - 03/15/2023 1:40 PM EDT SUBJECTIVE: History of Present Illness: Eliazar Beaulieu is a 83 year old female seen today for follow up of AKs. Previous office visit: 12/12/2022 Last attempted treatments include: cryo to AKs No vulvar exams performed, no vulvar discoloration and/or lesions to be assessed per pt. Pt. declined full skin exam, waist up exam performed. No new or changing lesions, per pt. 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 REVIEW OF SYSTEMS: SKIN: No other new [...] nonmelanoma skin cancer- type unknown (Jacques jackson 1970) Reviewed, same day as visit, 0 [facility] Dermatology lab work(s)/pathology report(s) as well as those sent by referring provider prior to seeing pt. MEDICA TIONS: Current Outpatient Medications Medication Sig Dispense Refill [place]-3 Fatty Acids (FISH OIL) 500 MG Capsule [...] . Use as directed. 1 Each 1 Xarelto 15 MG Oral Tablet (Rivaroxaban) TAKE 1 TABLET BY MOUTH EVERY DAY 90 Tablet 3 Escitalopram Oxalate 10 MG Oral Tablet (Lexapro) TAKE 1 TABLET BY MOUTH EVERY DAY 90 Tablet 3 Flecainide Acetate 50 MG Oral Tablet (Tambocor) TAKE 1 TABLET BY MOUTH TWICE A DAY 180 Tablet 3 Ferrous Sulfate 325 (65 Fe) MG Oral Tablet (Feosol) TAKE 1 TABLET BY MOUTH EVERY DAY WITH [id number] Tablet 1 Verapamil HCl ER 240 MG Oral Capsule Extended Release 24 Hour TAKE 1 CAPSULE BY MOUTH EVERY DAY 90 Capsule 1 Ipratropium-Albuterol 0.5-2.5 (3) MG/3ML Inhalation Solution (Duoneb) INHALE 1 VIAL VIA NEBULIZER EVERY 6 HOURS NEEDED FOR WHEEZING 360 mL 5 ProAir HFA 108 (90 Base) MCG/ACT Inhalation Aerosol Solution Inhale 2 Puffs by mouth as needed for Cough, Shortness of Breath or Wheezing. 18 g 5 Nystatin 284422 UNIT/GM External Cream Apply topically to affected [...] the morning. as directed.. 42.5 g 3 Cefdinir 300 MG Oral Capsule (Omnicef) Take 1 Capsule by mouth in the morning and 1 Capsule before bedtime. Until gone.. (Patient not taking: Reported on 02/03/2023) 10 Capsule 0 Solifenacin Succinate 5 MG Oral Tablet (VESIcare) Take 1 Tablet by mouth in the morning. (Patient not taking: Reported on 02/28/2023) 30 Tablet 0 Lisinopril 2.5 MG Oral Tablet (Prinivil) Take 1 Tablet by mouth in the morning. 30 Tablet 11 No current facility-administered medications for this visit. ALLERG IES: Amoxicillin, Bactrim, Ciprofloxacin, Diltiazem, Feldene [piroxicam], Keflex [cephalexin], Meloxicam, and Pletal [cilostazol] OBJECT REJI: GEN: alert, no distress, appears oriented, pleasant, cooperative, and in a wheel chair. SKIN: Detailed exam of face including lids and lips and anterior neck completed: L nare-2x 2-3mm pink slightly hyperkeratotic papules around white circular nonmelanoma skin cancer scar Upper lip border-Few pink scaly papules. ASSESS MENT/PLAN: 1-2. Actinic keratoses on nose and upper lip border-Plan on field therapy over cryotherapy as treatment for lesions. Explained in office and pt given written sheet with information on medication, instructions on treatment, appropriate response to medication, and tips on symptom relief. Pt will sendphotos through My Chart at the end of therapy for post treatment instructions. Patient alone today. Photo(s) of #1-2 taken, pt verbally consented to having photo(s) taken. Follow-up: 04/10/23 Efudex f/u Applicable photos (if any) and chart reviewed [...] the visit and treatment. Anya Pratt PA-C 03/15/2023 12:18 PM Ref: SELF[[id number]] NO STREET ADDRESS AVAILABLE None (office) None (fax) PCP: TAMEKA LEONE [address] [place] [address] [place] [address] [phone] documented in this encounter Nursing Notes * Laurie Thakur LPN - 03/15/2023 1:32 PM EDT Patient identified by full name and date of . Chief Complaint Patient presents with Follow Up 3 months for AKs, spots upper lip documented in this encounter Plan of Treatment Upcoming Encounters Date Type Specialty Care Team Description 03/22/2023 Procedure Only Endoscopy Gasper Kim, DO [address] [place] [address] 04/07/2023 Nurse Only Rheumatology Aneesh, Nurse Rheum [address] [place] [phone] 04/10/2023 Office Visit Dermatology Anya Pratt PA-C [address] [place] [address] [place] [address] 04/21/2023 Office Visit Family Medicine Tameka Leone MD [facility] [place] [address] 06/19/2023 Office Visit [facility]phrology [facility] [place] [address] 08/14/2023 Nurse Only Ancillary [place], Nurse Annual Wellness [address] [place] [address] [place] [address] 09/01/2023 Office Visit Sleep Disorders Lynn Busby, [address] [place] [address] 10/23/2023 Office Visit Rheumatology Daniel Tapia MD [address] [facility], [place] [address] 10/31/2023 Cardiac Studies Cardiac Studies Scheduled Procedures Name Priority Associated Diagnoses Date/Ti me COLONOSCOPY FLEXIBLE PROXIMAL DIAGNOSTIC Recall History of colon polyps Health Maintenance Due Date Last Done Comments DISCUSS TOBACCO CESSATION (REFER TO SMARTSET #4574) 1940 COVID-19 Vaccine (4 - Moderna series) 07/27/2021 06/01/2021, 10/20/2020, 09/15/2020 Influenza Vaccine (FLU shot) (#1) 2023 Depression Screening 08/11/2023 08/11/2022 Albumin/Creatinine Ratio 08/15/2023 08/15/2022, 01/31 GFR 08/17/2023 02/14/2023, 12/02, 08/12/2022, Additional history exists CKD PHOS USE SMARTSET 01498 12/28/202312/02, 04/26/2022, 11/23/2021, Additional history exists CKD HGB USE SMARTSET 39509 02/29/202402/28, 02/28/2023, 02/14/2023, Additional history exists O2 ASSESSMENT COMPLETED IN PAST YEAR FOR COPD 02/29/2024 02/28/2023 DXA Scan 08/01/2024 08/01/2022, 10/2020, 11/21/2013 COLONOSCOPY-EVERY 5 YRS AGES 18-100 02/23/2027 02/23/2022, 08/01/2019, 08/01/2019 DTaP,Tdap,and Td Vaccines (2 - Td or Tdap) 08/07/2030 08/07/2020 (Not indicated), 09/01/1998 Pneumococcal Vaccine: 65+ Years Completed 05/16/2016, 12/01/2014, 12/01/2013, Additional history exists VITAMIN D LEVEL ONCE IN A LIFETIME-USE SMARTSET# 88777 Completed 12/27/2022, 08/12/2022, 03/15/2022, Additional history exists [...] Associated Diagnosis Comments DERM IMAGE (SITE) Routine 03/15/2023 Actinic keratosis documented in this encounter Results * DERM IMAGE (SITE) (03/15/2023) 03/15/2023 Anya Pratt PA-C DIGITAL PHOTOG ADNIKA documented in this encounter Visit Diagnoses Diagnosis Actinic keratosis- Primary documented in this encounter Care Teams Call Person Relationship Specialty Start Date End Date Tameka Leone MD [address] [place] [address] [place] [address] PCP - General Family Medicine 05/29/19 documented as of this encounter
--- OUTSIDE RECORDS SUMMARY | 2023-07-25 21:00 | External Medical Summary | Summary of Care ---
Author Name Unknown Organization [facility] Address [address] [facility] [address] Phone [phone] Care Team Providers Care Tower Hand Name Role Phone Tameka Hooper MD Primary Care Prov ider Encounter Details Date Type Department Care Team Description 03/20/2023 Telephone Urogynecology [facility] [address] [place] [address] [place] PA-C [address] [place] [address] Allergies Active Allergy Reactions Severity Noted Date Comments Amoxicillin Rash 02/07/2020 Bactrim Rash 12/15/2011 Ciprofloxacin Rash 12/15/2011 Diltiazem Rash 05/29/2019 Piroxicam Rash 12/15/2011 Cephalexin Rash 12/15/2011 Meloxicam Rash 05/29/2019 Other reaction(s): Other Cilostazol Rash,Unknown 12/15/2011 documented as of this encounter (statuses as of 03/20/2023) Medications Medication Sig Dispensed Refills Start Date End Date Status [place]-3 Fatty Acids (FISH OIL) 500 MG Capsule [...] Wheezing. 18 g 5 12/07/2022 Active Nystatin 198289 UNIT/GM External CreamIndications:Ye ast dermatitis Apply topically [...] as of this encounter (statuses as of 03/20/2023) Active Problems Problem Noted Date Other specified [...] as of this encounter (statuses as of 03/20/2023) Resolved Problems Problem Noted Date Resolved Date [...] as of this encounter (statuses as of 03/20/2023) Immunizations Name Administration Dates Next Due COVID-19 [...] encounter Miscellaneous Notes * Telephone Encounter - Zulay Haas LPN [...] Endoscopy Gasper Kim, DO [address] [place] [address] 04/07/2023 Nurse Only Rheumatology [place], Nurse Rheum [address] [place] [phone] 04/10/2023 Office Visit Dermatology Anya Pratt PA-C [address] [place] [address] [place] [address] 04/21/2023 Office Visit Family Medicine Tameka Hooper MD [address] [place] [address] [place] [address] 06/19/2023 Office Visit Nephrology Nicole Lange MD [address] [place], [place] [address] [address] 08/14/2023 Nurse Only Ancillary [place], Nurse Annual Wellness [address] [place] [address] [place] [address] 09/01/2023 Office Visit Sleep Disorders Lynn Busby, DO [address] [place] [address] 10/23/2023 Office Visit Rheumatology Daniel Tapia MD [address] [employer] [place] [address] 10/31/2023 Cardiac Studies Cardiac Studies Scheduled Procedures [...] Additional history exists CKD PHOS USE SMARTSET 09016 12/28/202312/02, 04/26/2022, 11/23/2021, Additional history exists CKD HGB USE SMARTSET 85486 02/29/202402/28, 02/28/2023, 02/14/2023, Additional history exists O2 ASSESSMENT COMPLETED IN PAST YEAR FOR COPD 02/29/2024 02/28/2023 DXA Scan 08/01/2024 08/01/2022, 10/2020, 11/21/2013 COLONOSCOPY-EVERY 5 YRS AGES 18-100 02/23/2027 02/23/2022, 08/01/2019, 08/01/2019 DTaP,Tdap,and Td Vaccines (2 - Td or Tdap) 08/07/2030 08/07/2020 (Not indicated), 09/01/1998 Pneumococcal Vaccine: 65+ Years Completed 05/16/2016, 12/01/2014, 12/01/2013, Additional history exists VITAMIN D LEVEL ONCE IN A LIFETIME-USE SMARTSET# 04874 Completed 12/27/2022, 08/12/2022, 03/15/2022, Additional history exists [...] filedocumented as of this encounter Care Teams Tower Hand Relationship Specialty Start Date End Date Tameka Hooper MD [address] [place] [address] [place] [address] PCP - General Family Medicine 05/29/19 documented as of this encounter
--- OUTSIDE RECORDS SUMMARY | 2023-07-25 21:00 | External Medical Summary | Summary of Care ---
Author Name Unknown Organization [facility] Address [address] [place] [address] Phone [phone] Care Team Providers Care Foreign Agent Name Role Phone Tameka Hooper MD Primary Care Prov ider Reason for Visit * Reason Onset Date Comments Health Maintenance 03/16/2023 Encounter Details Date Type Department Care Team Description 03/16/2023 Telephone Family Medicine [address] [phone] Tameka Hooper MD [address] [place] [address] [place] [address] Health Maintenance Allergies Active Allergy Reactions Severity Noted Date Comments Amoxicillin Rash 02/07/2020 Bactrim Rash 12/15/2011 Ciprofloxacin Rash 12/15/2011 Diltiazem Rash 05/29/2019 Piroxicam Rash 12/15/2011 Cephalexin Rash 12/15/2011 Meloxicam Rash 05/29/2019 Other reaction(s): Other Cilostazol Rash,Unknown 12/15/2011 documented as of this encounter (statuses as of 03/16/2023) Medications Medication Sig Dispensed Refills Start Date End Date Status [place]-3 Fatty Acids (FISH OIL) 500 MG Capsule [...] Wheezing. 18 g 5 12/07/2022 Active Nystatin 482031 UNIT/GM External CreamIndications:Ye ast dermatitis Apply topically [...] encounter Miscellaneous Notes * Telephone Encounter - Judy Morales LPN - 03/16/2023 1:51 PM EDT Care Gaps Comprehensive Care Outreach Last Office/Telemedicine Visit: 02/28/2023 (in office), Visit date not found (telemedicine) Next Office Visit: 04/21/2023 Hemoglobin AIC Results: Lab Results Component Value Date/Time HEMOGLOBIN A1C - [facility] 6.1 (H) 02/08/2021 11:10 AM HEMOGLOBIN A1C - [facility] 4.8 12/21/2018 06:00 AM Reviewed Health Maintenance below: Health Maintenance Topic Date Due DISCUSS TOBACCO CESSATION (REFER TO SMARTSET #329) Never done COVID-19 Vaccine (4 - Moderna series) 07/27/2021 Influenza Vaccine (FLU shot) (1) Never done Care Gap Outreach Action Taken: Outreach not indicated documented in this encounter Plan of Treatment Upcoming Encounters Date Type Specialty Care Team Description 03/22/2023 Procedure Only Endoscopy Gasper Kim, DO [address] [place] [address] 04/07/2023 Nurse Only Rheumatology Aneesh, Nurse Shabana [address] [place] [phone] 04/10/2023 Office Visit Dermatology Anya Pratt PA-C [address] [place] [address] [place] [address] 04/21/2023 Office Visit Family Medicine Tameka Hooper MD [address] [place] [address] [place] [address] 06/19/2023 Office Visit Nephrology Nicole Lange MD [address] [place] [address], [place] [address] 08/14/2023 Nurse Only Ancillary [place] Nurse Annual Wellness [address] [place] [address] [place] [address] 09/01/2023 Office Visit Sleep Disorders Kehinde Lynn Iman, DO [address] [place] [address] 10/23/2023 Office Visit Rheumatology Daniel Tapia MD [address] [place] [address] 10/31/2023 Cardiac Studies Cardiac Studies Scheduled Procedures Name Priority Associated Diagnoses Date/Ti me COLONOSCOPY FLEXIBLE PROXIMAL DIAGNOSTIC Recall History of colon polyps Health Maintenance Due Date Last Done Comments DISCUSS TOBACCO CESSATION (REFER TO SMARTSET #6011) 1940 COVID-19 Vaccine (4 - Moderna series) 07/27/2021 06/01/2021, 10/20/2020, 09/15/2020 Influenza Vaccine (FLU shot) (#1) 2023 Depression Screening 08/11/2023 08/11/2022 Albumin/Creatinine Ratio 08/15/2023 08/15/2022, 01/31 GFR 08/17/2023 02/14/2023, 12/02, 08/12/2022, Additional history exists CKD PHOS USE SMARTSET 95448 12/28/202312/02, 04/26/2022, 11/23/2021, Additional history exists CKD HGB USE SMARTSET 47911 02/29/202402/28, 02/28/2023, 02/14/2023, Additional history exists O2 ASSESSMENT COMPLETED IN PAST YEAR FOR COPD 02/29/2024 02/28/2023 DXA Scan 08/01/2024 08/01/2022, 10/2020, 11/21/2013 COLONOSCOPY-EVERY 5 YRS AGES 18-100 02/23/2027 02/23/2022, 08/01/2019, 08/01/2019 DTaP,Tdap,and Td Vaccines (2 - Td or Tdap) 08/07/2030 08/07/2020 (Not indicated), 09/01/1998 Pneumococcal Vaccine: 65+ Years Completed 05/16/2016, 12/01/2014, 12/01/2013, Additional history exists VITAMIN D LEVEL ONCE IN A LIFETIME-USE SMARTSET# 80866 Completed 12/27/2022, 08/12/2022, 03/15/2022, Additional history exists [...] filedocumented as of this encounter Care Teams Foreign Agent Relationship Specialty Start Date End Date Tameka Hooper MD [address] [place] [address] [place] [address] PCP - General Family Medicine 05/29/19 documented as of this encounter
--- OUTSIDE RECORDS SUMMARY | 2023-07-25 21:00 | External Medical Summary | Summary of Care ---
Author Name Unknown Organization [facility] Address [address] [facility] [address] Phone [phone] Care Team Providers Care Filter Assembler Name Role Phone Tameka Hooper MD Primary Care Prov ider Encounter Details Date Type Department Care Team Description 03/20/2023 Telephone Urogynecology [facility] [address] [place] [address] [place] PA-C [address] [place] [address] Allergies Active Allergy Reactions Severity Noted Date Comments Amoxicillin Rash 02/07/2020 Bactrim Rash 12/15/2011 Ciprofloxacin Rash 12/15/2011 Diltiazem Rash 05/29/2019 Piroxicam Rash 12/15/2011 Cephalexin Rash 12/15/2011 Meloxicam Rash 05/29/2019 Other reaction(s): Other Cilostazol Rash,Unknown 12/15/2011 documented as of this encounter (statuses as of 03/22/2023) Medications Medication Sig Dispensed Refills Start Date End Date Status [place]-3 Fatty Acids (FISH OIL) 500 MG Capsule [...] Wheezing. 18 g 5 12/07/2022 Active Nystatin 144838 UNIT/GM External CreamIndications:Ye ast dermatitis Apply topically [...] as of this encounter (statuses as of 03/22/2023) Active Problems Problem Noted Date Other specified [...] as of this encounter (statuses as of 03/22/2023) Resolved Problems Problem Noted Date Resolved Date [...] as of this encounter (statuses as of 03/22/2023) Immunizations Name Administration Dates Next Due COVID-19 [...] Care Team Description 04/07/2023 Nurse Only Rheumatology Nurse Aneesh [address] [place] [phone] 04/10/2023 Office Visit Dermatology Anya Pratt PA-C [address] [place] [address] [place] [address] 04/21/2023 Office Visit Family Medicine Tameka Hooper MD [address] [place] [address] [place] [address] 06/19/2023 Office Visit Nephrology Nicole Lange MD [address] [place] [address] [place] [address] 08/14/2023 Nurse Only Ancillary [place] Nurse [address] [place] [address] 09/01/2023 Office Visit Sleep Disorders Lynn Busby, DO [address] [place] [address] 10/23/2023 Office Visit Rheumatology Daniel [facility]ia [facility] [address] [employer] [facility] [address] 10/31/2023 Cardiac Studies Cardiac Studies Scheduled Procedures Name Priority Associated Diagnoses Date/Ti me COLONOSCOPY FLEXIBLE PROXIMAL DIAGNOSTIC Recall History of colon polyps Health Maintenance Due Date Last Done Comments DISCUSS TOBACCO CESSATION (REFER TO SMARTSET #6932) 1940 COVID-19 Vaccine (4 - Moderna series) 07/27/2021 06/01/2021, 10/20/2020, 09/15/2020 Influenza Vaccine (FLU shot) (#1) 2023 Depression Screening 08/11/2023 08/11/2022 Albumin/Creatinine Ratio 08/15/2023 08/15/2022, 01/31 GFR 08/17/2023 02/14/2023, 12/02, 08/12/2022, Additional history exists CKD PHOS USE SMARTSET 95774 12/28/202312/02, 04/26/2022, 11/23/2021, Additional history exists CKD HGB USE SMARTSET 74950 02/29/202402/28, 02/28/2023, 02/14/2023, Additional history exists O2 ASSESSMENT COMPLETED IN PAST YEAR FOR COPD 02/29/2024 02/28/2023 DXA Scan 08/01/2024 08/01/2022, 10/2020, 11/21/2013 COLONOSCOPY-EVERY 5 YRS AGES 18-100 02/23/2027 02/23/2022, 08/01/2019, 08/01/2019 DTaP,Tdap,and Td Vaccines (2 - Td or Tdap) 08/07/2030 08/07/2020 (Not indicated), 09/01/1998 Pneumococcal Vaccine: 65+ Years Completed 05/16/2016, 12/01/2014, 12/01/2013, Additional history exists VITAMIN D LEVEL ONCE IN A LIFETIME-USE SMARTSET# 95395 Completed 12/27/2022, 08/12/2022, 03/15/2022, Additional history exists [...] filedocumented as of this encounter Care Teams Filter Assembler Relationship Specialty Start Date End Date Tameka Hooper MD [address] [place] [address] [place] [address] PCP - General Family Medicine 05/29/19 documented as of this encounter
--- OUTSIDE RECORDS SUMMARY | 2023-07-25 21:00 | External Medical Summary | Summary of Care ---
Author Name Unknown Organization [facility] Address [address] [place] [address] Phone [phone] Care Team Providers Care Certified Medical Records Coder Name Role Phone Tameka Hooper MD Primary Care Prov ider Reason for Visit * Reason Comments Follow Up 3 months for AKs, sp ots upper lip Encounter Details Date Type Department Care Team Description 03/15/2023 Office Visit Dermatology [address] [place] [address] Anya Pratt PA-C [address] [place] [address] [place] [address] Actinic keratosis* Allergies Active Allergy Reactions Severity Noted Date Comments Amoxicillin Rash 02/07/2020 Bactrim Rash 12/15/2011 Ciprofloxacin Rash 12/15/2011 Diltiazem Rash 05/29/2019 Piroxicam Rash 12/15/2011 Cephalexin Rash 12/15/2011 Meloxicam Rash 05/29/2019 Other reaction(s): Other Cilostazol Rash,Unknown 12/15/2011 documented as of this encounter (statuses as of 03/15/2023) Medications Medication Sig Dispensed Refills Start Date End Date Status [place]-3 Fatty Acids (FISH OIL) 500 MG Capsule [...] Wheezing. 18 g 5 12/07/2022 Active Nystatin 526753 UNIT/GM External CreamIndications:Ye ast dermatitis Apply topically [...] as of this encounter (statuses as of 03/15/2023) Active Problems Problem Noted Date Other specified [...] as of this encounter (statuses as of 03/15/2023) Resolved Problems Problem Noted Date Resolved Date [...] as of this encounter (statuses as of 03/15/2023) Immunizations Name Administration Dates Next Due COVID-19 [...] as of this encounter Progress Notes * Magaly Lipscomb LPN - 03/15/2023 2:00 [...] No new or changing lesions, per pt. Electrical Research Engineer Documentation Patient offered heel seat fitter machine and declined. REVIEW OF SYSTEMS: SKIN: No [...] 1972) Reviewed, same day as visit, 0 [facility] Dermatology lab work(s)/pathology report(s) as well as those sent by referring provider prior to seeing pt. MEDICA TIONS: Current Outpatient Medications Medication Sig Dispense Refill [place]-3 Fatty Acids (FISH OIL) 500 MG Capsule [...] 1 TABLET BY MOUTH EVERY DAY WITH [id number] Tablet 1 Verapamil HCl ER 240 MG [...] Breath or Wheezing. 18 g 5 Nystatin 568042 UNIT/GM External Cream Apply topically to affected [...] Anya Pratt PA-C 03/15/2023 12:18 PM Ref: SELF[[id number]] NO STREET ADDRESS AVAILABLE None (office) None (fax) PCP: TAMEKA HOOPER [address] [place] [address] [place] [address] [phone] documented in this encounter Nursing Notes * Laurie Thakur LPN - 03/15/2023 1:32 PM EDT Patient identified by full name and date of . Chief Complaint Patient presents with Follow Up 3 months for AKs, spots upper lip documented in this encounter Plan of Treatment Upcoming Encounters Date Type Specialty Care Team Description 03/22/2023 Procedure Only Endoscopy Gasper Kim, DO [address] [place] [address] 04/07/2023 Nurse Only Rheumatology [place], Nurse Rheum [address] [place] [phone] 04/10/2023 Office Visit Dermatology Anya Pratt PA-C [address] [place] [address] [place] [address] 04/21/2023 Office Visit Family Medicine Tameka Hooper MD [address] [place] [address] [place] [address] 06/19/2023 Office Visit Nephrology Nicole Lange MD [address] [place] [address], [place] [address] 08/14/2023 Nurse Only Ancillary [place] Nurse [facility] [address] [place] [address] [place] [address] 09/01/2023 Office Visit Sleep Disorders [place] Lynn Valerio, DO [address] [place] [address] 10/23/2023 Office Visit Rheumatology Daniel Tapia MD [address] [place] [address] 10/31/2023 Cardiac Studies Cardiac Studies Scheduled Procedures Name Priority Associated Diagnoses Date/Ti me COLONOSCOPY FLEXIBLE PROXIMAL DIAGNOSTIC Recall History of colon polyps Health Maintenance Due Date Last Done Comments DISCUSS TOBACCO CESSATION (REFER TO SMARTSET #7511) 1942 COVID-19 Vaccine (4 - Moderna series) 07/27/2021 06/01/2021, 10/20/2020, 09/15/2020 Influenza Vaccine (FLU shot) (#1) 2023 Depression Screening 08/11/2023 08/11/2022 Albumin/Creatinine Ratio 08/15/2023 08/15/2022, 01/31 GFR 08/17/2023 02/14/2023, 12/02, 08/12/2022, Additional history exists CKD PHOS USE SMARTSET 11037 12/28/202312/02, 04/26/2022, 11/23/2021, Additional history exists CKD HGB USE SMARTSET 92219 02/29/202402/28, 02/28/2023, 02/14/2023, Additional history exists O2 ASSESSMENT COMPLETED IN PAST YEAR FOR COPD 02/29/2024 02/28/2023 DXA Scan 08/01/2024 08/01/2022, 10/2020, 11/21/2013 COLONOSCOPY-EVERY 5 YRS AGES 18-100 02/23/2027 02/23/2022, 08/01/2019, 08/01/2019 DTaP,Tdap,and Td Vaccines (2 - Td or Tdap) 08/07/2030 08/07/2020 (Not indicated), 09/01/1998 Pneumococcal Vaccine: 65+ Years Completed 05/16/2016, 12/01/2014, 12/01/2013, Additional history exists VITAMIN D LEVEL ONCE IN A LIFETIME-USE SMARTSET# 60188 Completed 12/27/2022, 08/12/2022, 03/15/2022, Additional history exists [...] (03/15/2023) 03/15/2023 Anya Pratt PA-C DIGITAL PHOTOG DANIKA documented in this encounter Visit Diagnoses Diagnosis Actinic keratosis- Primary documented in this encounter Care Teams Certified Medical Records Coder Relationship Specialty Start Date End Date Tameka Hooper MD [address] [place] [address] [place] [address] PCP - General Family Medicine 05/29/19 documented as of this encounter
--- OUTSIDE RECORDS SUMMARY | 2023-07-25 21:01 | External Medical Summary | Summary of Care ---
Author Name Unknown Organization [facility] Address [address] [place] [address] Phone [phone] Care Team Providers Care Pet Counselor Name Role Phone Tameka Hooper MD Primary Care Prov ider Reason for Visit * Reason Comments Follow Up 3 months for AKs, sp ots upper lip Encounter Details Date Type Department Care Team Description 03/15/2023 Office Visit Dermatology [address] [place] [address] Anya Pratt PA-C [address] [place] [address] [place] [address] Actinic keratosis* Allergies Active Allergy Reactions Severity Noted Date Comments Amoxicillin Rash 02/07/2020 Bactrim Rash 12/15/2011 Ciprofloxacin Rash 12/15/2011 Diltiazem Rash 05/29/2019 Piroxicam Rash 12/15/2011 Cephalexin Rash 12/15/2011 Meloxicam Rash 05/29/2019 Other reaction(s): Other Cilostazol Rash,Unknown 12/15/2011 documented as of this encounter (statuses as of 03/15/2023) Medications Medication Sig Dispensed Refills Start Date End Date Status [place]-3 Fatty Acids (FISH OIL) 500 MG Capsule [...] Wheezing. 18 g 5 12/07/2022 Active Nystatin 327085 UNIT/GM External CreamIndications:Ye ast dermatitis Apply topically [...] No new or changing lesions, per pt. Oncology Radiation Physician Documentation Patient offered bottom turning lathe turner and declined. REVIEW OF SYSTEMS: SKIN: No [...] 1972) Reviewed, same day as visit, 0 [facility] Dermatology lab work(s)/pathology report(s) as well as those sent by referring provider prior to seeing pt. MEDICA TIONS: Current Outpatient Medications Medication Sig Dispense Refill [place]-3 Fatty Acids (FISH OIL) 500 MG Capsule [...] 1 TABLET BY MOUTH EVERY DAY WITH [id number] Tablet 1 Verapamil HCl ER 240 MG [...] Breath or Wheezing. 18 g 5 Nystatin 838946 UNIT/GM External Cream Apply topically to affected [...] Anya Pratt PA-C 03/15/2023 12:18 PM Ref: SELF[[id number]] NO STREET ADDRESS AVAILABLE None (office) None (fax) PCP: TAMEKA HOOPER [address] [place] [address] [place] [address] [phone] documented in this encounter Nursing Notes * Laurie Thakur LPN - 03/15/2023 1:32 PM EDT Patient identified by full name and date of . Chief Complaint Patient presents with Follow Up 3 months for AKs, spots upper lip documented in this encounter Plan of Treatment Upcoming Encounters Date Type Specialty Care Team Description 03/22/2023 Procedure Only Endoscopy Gasper Kim, DO [address] [place] [address] 04/07/2023 Nurse Only Rheumatology [place], Nurse Rheum [address] [place] [phone] 04/10/2023 Office Visit Dermatology Anya Pratt PA-C [address] [place] [address] [place] [address] 04/21/2023 Office Visit Family Medicine Tameka Hooper MD [address] [place] [address] [place] [address] 06/19/2023 Office Visit Nephrology Nicole Lange MD [address] [place] [address], [place] [address] 08/14/2023 Nurse Only Ancillary [place] Nurse [facility] [address] [place] [address] [place] [address] 09/01/2023 Office Visit Sleep Disorders [place] Lynn Valerio, DO [address] [place] [address] 10/23/2023 Office Visit Rheumatology Daniel Tapia MD [address] [employer] [place] [address] 10/31/2023 Cardiac Studies Cardiac Studies Scheduled Procedures Name Priority Associated Diagnoses Date/Ti me COLONOSCOPY FLEXIBLE PROXIMAL DIAGNOSTIC Recall History of colon polyps Health Maintenance Due Date Last Done Comments DISCUSS TOBACCO CESSATION (REFER TO SMARTSET #4221) 1940 COVID-19 Vaccine (4 - Moderna series) 07/27/2021 06/01/2021, 10/20/2020, 09/15/2020 Influenza Vaccine (FLU shot) (#1) 2023 Depression Screening 08/11/2023 08/11/2022 Albumin/Creatinine Ratio 08/15/2023 08/15/2022, 01/31 GFR 08/17/2023 02/14/2023, 12/02, 08/12/2022, Additional history exists CKD PHOS USE SMARTSET 65136 12/28/202312/02, 04/26/2022, 11/23/2021, Additional history exists CKD HGB USE SMARTSET 55324 02/29/202402/28, 02/28/2023, 02/14/2023, Additional history exists O2 ASSESSMENT COMPLETED IN PAST YEAR FOR COPD 02/29/2024 02/28/2023 DXA Scan 08/01/2024 08/01/2022, 10/2020, 11/21/2013 COLONOSCOPY-EVERY 5 YRS AGES 18-100 02/23/2027 02/23/2022, 08/01/2019, 08/01/2019 DTaP,Tdap,and Td Vaccines (2 - Td or Tdap) 08/07/2030 08/07/2020 (Not indicated), 09/01/1998 Pneumococcal Vaccine: 65+ Years Completed 05/16/2016, 12/01/2014, 12/01/2013, Additional history exists VITAMIN D LEVEL ONCE IN A LIFETIME-USE SMARTSET# 03451 Completed 12/27/2022, 08/12/2022, 03/15/2022, Additional history exists [...] Primary documented in this encounter Care Teams Pet Counselor Relationship Specialty Start Date End Date Tameka Hooper MD [address] [place] [address] [place] [address] PCP - General Family Medicine 05/29/19 documented as of this encounter
--- OUTSIDE RECORDS SUMMARY | 2023-07-25 21:01 | External Medical Summary | Summary of Care ---
Author Name Unknown Organization [facility] Address [address] [place] [address] Phone [phone] Care Team Providers Care Brim Pouncer Machine Operator Name Role Phone Tameka Hooper MD Primary Care Prov ider Reason for Visit * Reason Comments Follow Up 3 months for AKs, sp ots upper lip Encounter Details Date Type Department Care Team Description 03/15/2023 Office Visit Dermatology [address] [place] [address] Anya Pratt PA-C [address] [place] [address] [place] [address] Actinic keratosis* Allergies Active Allergy Reactions Severity Noted Date Comments Amoxicillin Rash 02/07/2020 Bactrim Rash 12/15/2011 Ciprofloxacin Rash 12/15/2011 Diltiazem Rash 05/29/2019 Piroxicam Rash 12/15/2011 Cephalexin Rash 12/15/2011 Meloxicam Rash 05/29/2019 Other reaction(s): Other Cilostazol Rash,Unknown 12/15/2011 documented as of this encounter (statuses as of 03/15/2023) Medications Medication Sig Dispensed Refills Start Date End Date Status [place]-3 Fatty Acids (FISH OIL) 500 MG Capsule [...] Wheezing. 18 g 5 12/07/2022 Active Nystatin 304250 UNIT/GM External CreamIndications:Ye ast dermatitis Apply topically [...] No new or changing lesions, per pt. Aircraft Engine Technician Documentation Patient offered layout technician and declined. REVIEW OF SYSTEMS: SKIN: No [...] 1972) Reviewed, same day as visit, 0 [facility] Dermatology lab work(s)/pathology report(s) as well as those sent by referring provider prior to seeing pt. MEDICA TIONS: Current Outpatient Medications Medication Sig Dispense Refill [place]-3 Fatty Acids (FISH OIL) 500 MG Capsule [...] 1 TABLET BY MOUTH EVERY DAY WITH [id number] Tablet 1 Verapamil HCl ER 240 MG [...] Breath or Wheezing. 18 g 5 Nystatin 505107 UNIT/GM External Cream Apply topically to affected [...] Anya Pratt PA-C 03/15/2023 12:18 PM Ref: SELF[[id number]] NO STREET ADDRESS AVAILABLE None (office) None (fax) PCP: TAMEKA HOOPER [address] [place] [address] [place] [address] [phone] documented in this encounter Nursing Notes * Laurie Thakur LPN - 03/15/2023 1:32 PM EDT Patient identified by full name and date of . Chief Complaint Patient presents with Follow Up 3 months for AKs, spots upper lip documented in this encounter Plan of Treatment Upcoming Encounters Date Type Specialty Care Team Description 03/22/2023 Procedure Only Endoscopy Gasper Kim, DO [address] [place] [address] 04/07/2023 Nurse Only Rheumatology [place], Nurse Rheum [address] [place] [phone] 04/10/2023 Office Visit Dermatology Anya Pratt PA-C [address] [place] [address] [place] [address] 04/21/2023 Office Visit Family Medicine Tameka Hooper MD [address] [place] [address] [place] [address] 06/19/2023 Office Visit Nephrology Nicole Lange MD [address] [place] [address], [place] [address] 08/14/2023 Nurse Only Ancillary [place] Nurse [facility] [address] [place] [address] [place] [address] 09/01/2023 Office Visit Sleep Disorders [place] Lynn Valerio, DO [address] [place] [address] 10/23/2023 Office Visit Rheumatology Daniel Tapia MD [address] [employer] [place] [address] 10/31/2023 Cardiac Studies Cardiac Studies Scheduled Procedures Name Priority Associated Diagnoses Date/Ti me COLONOSCOPY FLEXIBLE PROXIMAL DIAGNOSTIC Recall History of colon polyps Health Maintenance Due Date Last Done Comments DISCUSS TOBACCO CESSATION (REFER TO SMARTSET #9061) 1940 COVID-19 Vaccine (4 - Moderna series) 07/27/2021 06/01/2021, 10/20/2020, 09/15/2020 Influenza Vaccine (FLU shot) (#1) 2023 Depression Screening 08/11/2023 08/11/2022 Albumin/Creatinine Ratio 08/15/2023 08/15/2022, 01/31 GFR 08/17/2023 02/14/2023, 12/02, 08/12/2022, Additional history exists CKD PHOS USE SMARTSET 47894 12/28/202312/02, 04/26/2022, 11/23/2021, Additional history exists CKD HGB USE SMARTSET 66799 02/29/202402/28, 02/28/2023, 02/14/2023, Additional history exists O2 ASSESSMENT COMPLETED IN PAST YEAR FOR COPD 02/29/2024 02/28/2023 DXA Scan 08/01/2024 08/01/2022, 10/2020, 11/21/2013 COLONOSCOPY-EVERY 5 YRS AGES 18-100 02/23/2027 02/23/2022, 08/01/2019, 08/01/2019 DTaP,Tdap,and Td Vaccines (2 - Td or Tdap) 08/07/2030 08/07/2020 (Not indicated), 09/01/1998 Pneumococcal Vaccine: 65+ Years Completed 05/16/2016, 12/01/2014, 12/01/2013, Additional history exists VITAMIN D LEVEL ONCE IN A LIFETIME-USE SMARTSET# 36327 Completed 12/27/2022, 08/12/2022, 03/15/2022, Additional history exists [...] Primary documented in this encounter Care Teams Brim Pouncer Machine Operator Relationship Specialty Start Date End Date Tameka Hooper MD [address] [place] [address] [place] [address] PCP - General Family Medicine 05/29/19 documented as of this encounter
--- OUTSIDE RECORDS SUMMARY | 2023-07-25 21:01 | External Medical Summary | Summary of Care ---
Author Name Unknown Organization [facility] Address [address] [place] [address] Phone [phone] Care Team Providers Care Bursar Name Role Phone Tameka Hooper MD Primary Care Prov ider Encounter Details Date Type Department Care Team Description 02/20/[address] [facility] [address] [place] [place] [address] Maggi Lara CRNP [address] [place] [id number] Anemia, unspecified type* Allergies Active Allergy Reactions Severity Noted Date Comments Amoxicillin Rash 02/07/2020 Bactrim Rash 12/15/2011 Ciprofloxacin Rash 12/15/2011 Diltiazem Rash 05/29/2019 Piroxicam Rash 12/15/2011 Cephalexin Rash 12/15/2011 Meloxicam Rash 05/29/2019 Other reaction(s): Other Cilostazol Rash,Unknown 12/15/2011 documented as of this encounter (statuses as of 02/20/2023) Medications Medication Sig Dispensed Refills Start Date End Date Status [place]-3 Fatty Acids (FISH OIL) 500 MG Capsule [...] A DAY 180 Tablet 3 07/15/2022 Active Lisinopril 5 MG Oral Tablet (Prinivil)Indicatio ns:Essential (primary) hypertension TAKE 1 TABLET BY MOUTH EVERY DAY IN THE MORNING 90 Tablet 3 11/02/2022 Active Ferrous Sulfate 325 (65 Fe) MG [...] Wheezing. 18 g 5 12/07/2022 Active Nystatin 415620 UNIT/GM External CreamIndications:Ye ast dermatitis Apply topically [...] FOR DIZZINESS 30 Tablet 3 01/02/2023 Active Estradiol 0.1 MG/GM Vaginal Cream (Estrace)Indication s:Postmenopausal atrophic vaginitis Administer 2 g into the vagina in the morning. as directed.. 42.5 g 3 01/06/2023 Active Cefdinir 300 MG Oral Capsule (Omnicef)Indication s:Acute cystitis without hematuria Take 1 Capsule by mouth in the morning and 1 Capsule before bedtime. Until gone.. 10 Capsule 0 01/06/2023 Active Additional Information Patient not taking.Reported on 02/03/2023 Gemtesa 75 MG Oral Tablet (Vibegron)Indicatio ns:Mixed incontinence,Urinar y frequency,Urge incontinence,Urinar y urgency Take 1 Tablet by mouth in the morning. 30 Tablet 11 02/06/2023 Active Oxybutynin Chloride ER 5 MG Oral Tablet Extended Release 24 Hour (Ditropan XL)Indications:Mixe d incontinence,Urinar y frequency,Urge incontinence,Urinar y urgency Take 1 Tablet by mouth in the morning. 30 Tablet 0 02/17/2023 Active documented as of this encounter (statuses as of 02/20/2023) Active Problems Problem Noted Date Other specified [...] as of this encounter (statuses as of 02/20/2023) Resolved Problems Problem Noted Date Resolved Date [...] as of this encounter (statuses as of 02/20/2023) Immunizations Name Administration Dates Next Due COVID-19 mRNA, LNP-s, No Pre serve, 2-Dose Series (Moderna) 10/20/2020,09/15/2020 Covid-19 Mrna, Lnp-s, No Preserve, Booster (Mode rna) 06/01/2021 Pneumococcal Conjugate Vacc, 13 Valent (Prevnar) [...] Encounters Date Type Specialty Care Team Description 02/28/2023 Office Visit Family Medicine Chanelle Newman, PA-C [address] [place] [address] [place] [address] 03/02/2023 Office Visit Cardiology Adrian Savage, DO [address] [place] [address] 03/15/2023 Office Visit Dermatology Anya Pratt PA-C [address] [place] [address] [place] [address] 03/22/2023 Procedure Only Endoscopy Gasper Kim, DO [address] [place], [place] [address] 04/07/2023 Nurse Only Rheumatology [place], Nurse Rheum [address] [place] [phone] 04/21/2023 Office Visit Family Medicine Tameka Hooper MD [address] [place] [address] [place] [address] 06/19/2023 Office Visit Nephrology Nicole Lange MD [address] [place] [address] 08/14/2023 Nurse Only Ancillary [place] Nurse [facility] [address] [place] [address] [place] [address] 09/01/2023 Office Visit Sleep Disorders Lynn [place], DO [address] [place] [address] 10/23/2023 Office Visit Rheumatology Daniel Tapia MD [facility] [place] [address] Scheduled Orders Name Type Priority Associated Diagnoses Orde r Schedule CBC WITH WBC DIFFERENTIAL Lab Routine Anemia, unspecified type Expected: 02/20/2023 (Approximate), Expires: 02/21/2024 Scheduled Procedures Name Priority Associated Diagnoses Date/Ti me COLONOSCOPY FLEXIBLE PROXIMAL DIAGNOSTIC Recall History of colon polyps Health Maintenance Due Date Last Done Comments DISCUSS TOBACCO CESSATION (REFER TO SMARTSET #7621) 1940 COVID-19 Vaccine (4 - Moderna series) 07/27/2021 06/01/2021, 10/20/2020, 09/15/2020 Influenza Vaccine (FLU shot) (#1) 2023 Depression Screening, Annual for Pts 12 and Over 08/11/2023 08/11/2022 Albumin/Creatinine Ratio 08/15/2023 08/15/2022, 01/31 GFR 08/17/2023 02/14/2023, 12/02, 08/12/2022, Additional history exists CKD PHOS USE SMARTSET 14148 12/28/202312/02, 04/26/2022, 11/23/2021, Additional history exists O2 ASSESSMENT COMPLETED IN PAST YEAR FOR COPD 02/14/2024 02/13/2023 CKD HGB USE SMARTSET 59997 02/15/202402/14, 02/14/2023, 08/12/2022, Additional history exists DXA Scan 08/01/2024 08/01/2022, 10/2020, 11/21/2013 COLONOSCOPY-EVERY 5 YRS AGES 18-100 02/23/2027 02/23/2022, 08/01/2019, 08/01/2019 DTaP,Tdap,and Td Vaccines (2 - Td or Tdap) 08/07/2030 08/07/2020 (Not indicated), 09/01/1998 Pneumococcal Vaccine: 65+ Years Completed 05/16/2016, 12/01/2014, 12/01/2013, Additional history exists VITAMIN D LEVEL ONCE IN A LIFETIME-USE SMARTSET# 67453 Completed 12/27/2022, 08/12/2022, 03/15/2022, Additional history exists [...] as of this encounter Visit Diagnoses Diagnosis Anemia, unspecified type- Primary documented in this encounter Care Teams Bursar Relationship Specialty Start Date End Date Tameka Hopoer MD [address] [place] [address] [place] [address] PCP - General Family Medicine 05/29/19 documented as of this encounter
--- OUTSIDE RECORDS SUMMARY | 2023-07-25 21:01 | External Medical Summary | Summary of Care ---
Author Name Unknown Organization [facility] Address [address] [place] [address] Phone [phone] Care Team Providers Care Patient Companion Name Role Phone Tameka Hooper MD Primary Care Prov ider Reason for Visit * Reason Comments Follow Up 2 wk follow up Encounter Details Date Type Department Care Team Description 02/28/2023 Office Visit Family Medicine [address] [phone] Chanelle Newman PA-C [address] [place] [address] [place] [address] Lightheadedness* Allergies Active Allergy Reactions Severity Noted Date Comments Amoxicillin Rash 02/07/2020 Bactrim Rash 12/15/2011 Ciprofloxacin Rash 12/15/2011 Diltiazem Rash 05/29/2019 Piroxicam Rash 12/15/2011 Cephalexin Rash 12/15/2011 Meloxicam Rash 05/29/2019 Other reaction(s): Other Cilostazol Rash,Unknown 12/15/2011 documented as of this encounter (statuses as of 02/28/2023) Medications Medication Sig Dispensed Refills Start Date End Date Status [place]-3 Fatty Acids (FISH OIL) 500 MG Capsule [...] Wheezing. 18 g 5 12/07/2022 Active Nystatin 024518 UNIT/GM External CreamIndications:Ye ast dermatitis Apply topically [...] Additional Information Patient not taking.Reported on 02/28/2023 documented as of this encounter (statuses as of 02/28/2023) Active Problems Problem Noted Date Other specified [...] as of this encounter (statuses as of 02/28/2023) Resolved Problems Problem Noted Date Resolved Date [...] as of this encounter (statuses as of 02/28/2023) Immunizations Name Administration Dates Next Due COVID-19 [...] Sign Reading Time Taken Comments Blood Pressure 122/50 02/28/2023 3:00 PM EDT Pulse 61 02/28/2023 3:00 PM EDT Temperature 36.9 C (98.4 F) 02/28/2023 3:00 PM ED T Respiratory Rate - - Oxygen Saturation 92% 02/28/2023 3:00 PM EDT Inhaled Oxygen Concentration - - Weight 80.7 kg (177 lb 14.4 oz) 02/28/2023 3:00 PM EDT Height - - Body Mass Index 38.5 08/31/2022 12:42 PM EST documented in this encounter Progress Notes * Chanelle Newman PA-C - 02/28/2023 3:06 PM EDT Nursing Notes: Dominic Borrego LPN 02/28/23 1437 Signed Chief Complaint Patient presents with Follow Up 2 wk follow up The patient has been properly identified by confirmation of name and date of . Dominic Borrego LPN 02/28/23 1504 Signed Chief Complaint Patient presents with Follow Up 2 wk follow up Dizzy all the time She stopped Meclizine because she was told to stop them all Seen Maggi Lara on 02/13/2023 and dx with Anemia Was to get labs re drawn prior to today apt and she did not read Payfirma Urine Neg for UTI The patient has been properly identified by confirmation of name and date of . Pt here today with lightheadedness. This is nothing new. She has had this for a long time. Was taking meclizine but stopped. Pt was seen 2 weeks ago. Urine was clear. Kidney function stable. Slightlyanemic - with hgb of 11.5. this is new. Pt denies abdominal pain, blood in stool, black stool, reflux issues. Pt denies chest pain, SOB. Pt denies actual dizziness. The room isn't spinning or tilting. The lightheadedness is all the time. It doesn't get worse with positional changes. Pt is on O2. Ptdenies URI sx, allergy/sinus sx. Pt has cardio appt in 2 days. Was to have repeat blood work but never had it done. Review of patient's allergies indicates: Allergen Reactions Amoxicillin Rash Bactrim Rash Ciprofloxacin Rash Diltiazem Rash Feldene [Piroxicam] Rash Keflex [Cephalexin] Rash Meloxicam Rash Other reaction(s): Other Pletal [Cilostazol] Rash and Unknown Current Outpatient Medications Medication Sig Dispense Refill [place]-3 Fatty Acids (FISH OIL) 500 MG Capsule [...] Carb-Cholecalciferol) Take 1 Tab by mouth daily. CPAP every night at bedtime. Acetaminophen 325 [...] MOUTH TWICE A DAY 180 Tablet 3 Lisinopril 5 MG Oral Tablet (Prinivil) TAKE 1 TABLET BY MOUTH EVERY DAY IN THE MORNING 90 Tablet 3 Ferrous Sulfate 325 (65 Fe) MG Oral Tablet (Feosol) TAKE 1 TABLET BY MOUTH EVERY DAY WITH [id number] Tablet 1 Verapamil HCl ER 240 MG [...] Breath or Wheezing. 18 g 5 Nystatin 145277 UNIT/GM External Cream Apply topically to affected area 2 times a day. To affacted area for two weeks. 30 g 3 Estradiol 0.1 MG/GM Vaginal Cream (Estrace) Administer 2 g into the vagina in the morning. as directed.. 42.5 g 3 SYSTANE 0.4-0.3 % OP SOLN as needed (Patient not taking: Reported on 02/28/2023) Prolia 60 MG/ML Subcutaneous Solution Prefilled Syringe Inject 60 mg under the skin every 6 months.1 mL 0 Fluticasone Propionate 50 MCG/ACT Nasal Suspension (Flonase) SPRAY 2 SPRAYS INTO EACH NOSTRIL EVERYDAY (Patient not taking: Reported on 10/27/2022) 48 mL 1 Mesalamine 1.2 GM Oral Tablet Delayed Release (Lialda) TAKE BY MOUTH 3 TABLETS IN THE MORNING. 270 Tablet 3 Meclizine HCl 12.5 MG Oral Tablet (Antivert) TAKE 1 TABLET BY MOUTH THREE TIMES A DAY FOR DIZZINESS(Patient not taking: Reported on 02/28/2023) 30 Tablet 3 Cefdinir 300 MG Oral Capsule (Omnicef) Take 1 Capsule by mouth in the morning and 1 Capsule before bedtime. Until gone.. (Patient not taking: Reported on 02/03/2023) 10 Capsule 0 Solifenacin Succinate 5 MG Oral Tablet (VESIcare) Take 1 Tablet by mouth in the morning. (Patient not taking: Reported on 02/28/2023) 30 Tablet 0 No current facility-administered medications for this visit. Past Medical History: Diagnosis Date Chronic atrial fibrillation ([facility]) 05/29/2019 Chronic bilateral low back pain without sciatica 02/04/2020 Colostomy status ([facility]) 05/29/2019 COPD, moderate ([facility]) 12/15/2011 Diverticulitis of colon Essential (primary) hypertension 07/10/2019 Fracture of vertebra due to osteoporosis with routine healing 02/07/2020 Generalized osteoarthritis Glaucoma 12/15/2011 H/O multiple pulmonary nodules [place] [facility] next yearly CT is due in May 2022 Macular degeneration 05/29/2019 Mixed hyperlipidemia 05/29/2019 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[facility]) 12/15/2011 S/P bilateral cataract extraction 05/29/2019 Social History Socioeconomic History Marital status: Spouse name: Not on file Number of children: Not on file Years of education: Not on file Highest education level: Not on file Occupational History Not on file Tobacco Use Smoking status: Every Day Packs/day: 0.25 Years: 60.00 Pack years: 15.00 Types: Cigarettes Smokeless tobacco: Never Tobacco comments: 5/day currently , pt is willing to try and quit. Vaping Use Vaping Use: Never used Substance and Sexual Activity Alcohol use: No Drug use: No Sexual activity: Not Currently Partners: Male Other Topics Concern Not on file Social History Narrative passed jun 2004 Social Determinants of Health Financial Resource Strain: Not on file Food Insecurity: No Food Insecurity Worried About Running Out of Food in the Last Year: Never true Ran Out of Food in the Last Year: Never true Transportation Needs: Not on file Physical Activity: Not on file Stress: Not on file Social Connections: Not on file Intimate Partner Violence: Not on file Housing Stability: Not on file O:Blood pressure 122/50, pulse 61, temperature 36.9 C (98.4 F), temperature source Tympanic, weight 80.7 kg (177 lb 14.4 oz), SpO2 92 %. GENERAL: alert, healthy, and no distress NECK: supple, no adenopathy, no bruits, thyroid normal size, non-tender, without nodularity EYES: conjunctiva are pink and non-injected, sclera clear HEART: regular rate & rhythm, no murmur, and no gallops LUNGS: chest symmetric with normal AP diameter, no chest deformities noted, no chest wall tenderness, lungs clear to auscultation ABDOMEN: abdomen soft, non-tender, normal bowel sounds, and no masses or organomegaly A:Lightheadedness (Primary) BP and pulse a little on the low side today. Looking back through chart, BP has always run like this - as well as pulse. Keep cardio appt. Maybe discuss stopping or cutting back on one of her BP meds. Any questions/problems, please call. If anything changes, worsens, develops new sx, please call [facility]. Will recheck labs today. Follow Up: Return if symptoms worsen or fail to improve. Chanelle Newman PA-C documented in this encounter Nursing Notes * Dominic Borrego LPN - 02/28/2023 2:59 PM EDT Chief Complaint Patient presents with Follow Up 2 wk follow up Dizzy all the time She stopped Meclizine because she was told to stop them all Seen Maggi Lara on 02/13/2023 and dx with Anemia Was to get labs re drawn prior to today apt and she did not read mychart msg Urine Neg for UTI The patient has been properly identified by confirmation of name and date of . * Dominic Borrego LPN - 02/28/2023 2:36 PM EDT Chief Complaint Patient presents with Follow Up 2 wk follow up The patient has been properly identified by confirmation of name and date of . documented in this encounter Plan of Treatment Upcoming Encounters Date Type Specialty Care Team Description 03/02/2023 Office Visit Cardiology Adrian Savage DO [address] [place] [address] 03/15/2023 Office Visit Dermatology Anya Pratt PA-C [address] [place] [address] [place] [address] 03/22/2023 Procedure Only Endoscopy Gasper Kim DO [address] [place] [address] 04/07/2023 Nurse Only Rheumatology Nurse Shabana Melendrez [address] [place] [phone] 04/21/2023 Office Visit Family Medicine Tameka Hooper MD [address] [place] [address] [place] [address] 06/19/2023 Office Visit Nephrology Nicole Lange MD [address] [place], [place] [address] 08/14/2023 Nurse Only Ancillary Nurse [facility] [address] [place] [address] [place] [address] 09/01/2023 Office Visit Sleep Disorders Lynn Busby, DO [address] [place] [address] 10/23/2023 Office Visit Rheumatology Daniel Tapia MD [address] [place], [place] [address] Scheduled Procedures Name Priority Associated Diagnoses Date/Ti [...] Additional history exists CKD PHOS USE SMARTSET 99579 12/28/202312/02, 04/26/2022, 11/23/2021, Additional history exists O2 ASSESSMENT COMPLETED IN PAST YEAR FOR COPD 02/14/2024 02/13/2023 CKD HGB USE SMARTSET 43785 02/15/202402/14, 02/14/2023, 08/12/2022, Additional history exists DXA Scan 08/01/2024 08/01/2022, 10/2020, 11/21/2013 COLONOSCOPY-EVERY 5 YRS AGES 18-100 02/23/2027 02/23/2022, 08/01/2019, 08/01/2019 DTaP,Tdap,and Td Vaccines (2 - Td or Tdap) 08/07/2030 08/07/2020 (Not indicated), 09/01/1998 Pneumococcal Vaccine: 65+ Years Completed 05/16/2016, 12/01/2014, 12/01/2013, Additional history exists VITAMIN D LEVEL ONCE IN A LIFETIME-USE SMARTSET# [id number] Completed 12/27/2022, 08/12/2022, 03/15/2022, Additional history exists [...] as of this encounter Visit Diagnoses Diagnosis Lightheadedness- Primary Dizziness and giddiness documented in this encounter Care Teams Patient Companion Relationship Specialty Start Date End Date Tameka Hooper MD [address] [place] [address] [place] [address] PCP - General Family Medicine 05/29/19 documented as of this encounter
--- OUTSIDE RECORDS SUMMARY | 2023-07-25 21:01 | External Medical Summary | Summary of Care ---
Author Name Unknown Organization [facility] Address [address] [place] [address] Phone [phone] Care Team Providers Care Coal Gasification Technician Name Role Phone Tameka Hooper MD Primary Care Prov ider Reason for Visit * Reason Comments Follow Up 3 months for AKs, sp ots upper lip Encounter Details Date Type Department Care Team Description 03/15/2023 Office Visit Dermatology [address] [place] [address] Anya Pratt PA-C [address] [place] [address] [place] [address] Actinic keratosis* Allergies Active Allergy Reactions Severity Noted Date Comments Amoxicillin Rash 02/07/2020 Bactrim Rash 12/15/2011 Ciprofloxacin Rash 12/15/2011 Diltiazem Rash 05/29/2019 Piroxicam Rash 12/15/2011 Cephalexin Rash 12/15/2011 Meloxicam Rash 05/29/2019 Other reaction(s): Other Cilostazol Rash,Unknown 12/15/2011 documented as of this encounter (statuses as of 03/15/2023) Medications Medication Sig Dispensed Refills Start Date End Date Status [place]-3 Fatty Acids (FISH OIL) 500 MG Capsule [...] Wheezing. 18 g 5 12/07/2022 Active Nystatin 806536 UNIT/GM External CreamIndications:Ye ast dermatitis Apply topically [...] No new or changing lesions, per pt. 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 REVIEW OF SYSTEMS: SKIN: No [...] 1972) Reviewed, same day as visit, 0 [facility] Dermatology lab work(s)/pathology report(s) as well as those sent by referring provider prior to seeing pt. MEDICA TIONS: Current Outpatient Medications Medication Sig Dispense Refill [place]-3 Fatty Acids (FISH OIL) 500 MG Capsule [...] 1 TABLET BY MOUTH EVERY DAY WITH [id number] Tablet 1 Verapamil HCl ER 240 MG [...] Breath or Wheezing. 18 g 5 Nystatin 338573 UNIT/GM External Cream Apply topically to affected [...] Anya Pratt PA-C 03/15/2023 12:18 PM Ref: SELF[[id number]] NO STREET ADDRESS AVAILABLE None (office) None (fax) PCP: TAMEKA HOOPER [address] [place] [address] [place] [address] [phone] documented in this encounter Nursing Notes * Laurie Thakur LPN - 03/15/2023 1:32 PM EDT Patient identified by full name and date of . Chief Complaint Patient presents with Follow Up 3 months for AKs, spots upper lip documented in this encounter Plan of Treatment Upcoming Encounters Date Type Specialty Care Team Description 03/22/2023 Procedure Only Endoscopy Gasper Kim, DO [address] [place] [address] 04/07/2023 Nurse Only Rheumatology [place], Nurse Rheum [address] [place] [phone] 04/10/2023 Office Visit Dermatology Anya Pratt PA-C [address] [place] [address] [place] [address] 04/21/2023 Office Visit Family Medicine Tameka Hooper MD [address] [place] [address] [place] [address] 06/19/2023 Office Visit Nephrology Nicole Lange MD [address] [place] [address], [place] [address] 08/14/2023 Nurse Only Ancillary [facility] [address] [place] [address] [place] [address] 09/01/2023 Office Visit Sleep Disorders Busby Lynn Valerio, DO [address] [place] [address] 10/23/2023 Office Visit Rheumatology Daniel Tapia MD [address] [employer] [facility] [place] [address] 10/31/2023 Cardiac Studies Cardiac Studies Scheduled Procedures Name Priority Associated Diagnoses Date/Ti me COLONOSCOPY FLEXIBLE PROXIMAL DIAGNOSTIC Recall History of colon polyps Health Maintenance Due Date Last Done Comments DISCUSS TOBACCO CESSATION (REFER TO SMARTSET #0891) 1940 COVID-19 Vaccine (4 - Moderna series) 07/27/2021 06/01/2021, 10/20/2020, 09/15/2020 Influenza Vaccine (FLU shot) (#1) 2023 Depression Screening 08/11/2023 08/11/2022 Albumin/Creatinine Ratio 08/15/2023 08/15/2022, 01/31 GFR 08/17/2023 02/14/2023, 12/02, 08/12/2022, Additional history exists CKD PHOS USE SMARTSET 31390 12/28/202312/02, 04/26/2022, 11/23/2021, Additional history exists CKD HGB USE SMARTSET 10948 02/29/202402/28, 02/28/2023, 02/14/2023, Additional history exists O2 ASSESSMENT COMPLETED IN PAST YEAR FOR COPD 02/29/2024 02/28/2023 DXA Scan 08/01/2024 08/01/2022, 10/2020, 11/21/2013 COLONOSCOPY-EVERY 5 YRS AGES 18-100 02/23/2027 02/23/2022, 08/01/2019, 08/01/2019 DTaP,Tdap,and Td Vaccines (2 - Td or Tdap) 08/07/2030 08/07/2020 (Not indicated), 09/01/1998 Pneumococcal Vaccine: 65+ Years Completed 05/16/2016, 12/01/2014, 12/01/2013, Additional history exists VITAMIN D LEVEL ONCE IN A LIFETIME-USE SMARTSET# [id number] Completed 12/27/2022, 08/12/2022, 03/15/2022, Additional history exists [...] Primary documented in this encounter Care Teams Coal Gasification Technician Relationship Specialty Start Date End Date Tameka Hooper MD [address] [place] [address] [place] [address] PCP - General Family Medicine 05/29/19 documented as of this encounter
--- OUTSIDE RECORDS SUMMARY | 2023-07-25 21:01 | External Medical Summary | Summary of Care ---
Author Name Unknown Organization [facility] [address] [place] [address] Phone [phone] Care Team Providers Care Corn Picker Name Role Phone Tameka Hooper MD Primary Care Prov ider Encounter Details Date Type Department Care Team Description 02/20/2023 Telephone Urogynecology [facility] [address], [place] [id number] Katerina Nurse Urogyn [address] [place] [address] Allergies Active Allergy Reactions Severity Noted Date Comments Amoxicillin Rash 02/07/2020 Bactrim Rash 12/15/2011 Ciprofloxacin Rash 12/15/2011 Diltiazem Rash 05/29/2019 Piroxicam Rash 12/15/2011 Cephalexin Rash 12/15/2011 Meloxicam Rash 05/29/2019 Other reaction(s): Other Cilostazol Rash,Unknown 12/15/2011 documented as of this encounter (statuses as of 02/21/2023) Medications Medication Sig Dispensed Refills Start Date End Date Status [place]-3 Fatty Acids (FISH OIL) 500 MG Capsule [...] Wheezing. 18 g 5 12/07/2022 Active Nystatin 615732 UNIT/GM External CreamIndications:Ye ast dermatitis Apply topically [...] as of this encounter (statuses as of 02/21/2023) Active Problems Problem Noted Date Other specified [...] as of this encounter (statuses as of 02/21/2023) Resolved Problems Problem Noted Date Resolved Date [...] as of this encounter (statuses as of 02/21/2023) Immunizations Name Administration Dates Next Due COVID-19 [...] Telephone Encounter - Zulay Haas LPN - 02/21/2023 2:34 PM EDT Returned patient call. States she started mediation on for her bladder and states it is not working. Wanting to know next steps. Made aware will send message to [place] but did let patient know that it can take a few weeks to notice improvement - may need some more time. * Telephone Encounter - Merari Ervin RN - 02/20/2023 2:31 PM EDT Returned pt's call but was not able to speak to her. Message left with return phone number for her to call back. documented in this encounter Plan of Treatment Upcoming Encounters Date Type Specialty Care Team Description 02/28/2023 Office Visit Family Medicine Chanelle Newman PA-C [address] [place] [address] [place] [address] 03/02/2023 Office Visit Cardiology Adrian Savage DO [address] [place] [address] 03/15/2023 Office Visit Dermatology Anya Pratt PA-C [address] [place] [address] [place] [address] 03/22/2023 Procedure Only Endoscopy Gasper Kim DO [address] [place] [address] 04/07/2023 Nurse Only Rheumatology Ane[place], Nurse Shabana [address] [place] [phone] 04/21/2023 Office Visit Family Medicine Tameka Hooper MD [address] [place] [address] [place] [address] 06/19/2023 Office Visit Nephrology Nicole Lange MD [address] [place] [address] 08/14/2023 Nurse Only Ancillary [place], Nurse [facility] [address] [place] [address] [place] [address] 09/01/2023 Office Visit Sleep Disorders Lynn Busby, DO [address] [place] [address] 10/23/2023 Office Visit Rheumatology Daniel Tapia MD [address] [facility] [place], [place] [address] Scheduled Procedures Name Priority Associated Diagnoses Date/Ti [...] Additional history exists CKD PHOS USE SMARTSET 11463 12/28/202312/02, 04/26/2022, 11/23/2021, Additional history exists O2 ASSESSMENT COMPLETED IN PAST YEAR FOR COPD 02/14/2024 02/13/2023 CKD HGB USE SMARTSET 29316 02/15/202402/14, 02/14/2023, 08/12/2022, Additional history exists DXA Scan 08/01/2024 08/01/2022, 10/2020, 11/21/2013 COLONOSCOPY-EVERY 5 YRS AGES 18-100 02/23/2027 02/23/2022, 08/01/2019, 08/01/2019 DTaP,Tdap,and Td Vaccines (2 - Td or Tdap) 08/07/2030 08/07/2020 (Not indicated), 09/01/1998 Pneumococcal Vaccine: 65+ Years Completed 05/16/2016, 12/01/2014, 12/01/2013, Additional history exists VITAMIN D LEVEL ONCE IN A LIFETIME-USE SMARTSET# 06513 Completed 12/27/2022, 08/12/2022, 03/15/2022, Additional history exists [...] filedocumented as of this encounter Care Teams Corn Picker Relationship Specialty Start Date End Date Tameka Hooper MD [address] [place] [address] [place] [address] PCP - General Family Medicine 05/29/19 documented as of this encounter
--- OUTSIDE RECORDS SUMMARY | 2023-07-25 21:01 | External Medical Summary | Summary of Care ---
Author Name Unknown Organization [facility] Address [address] [facility] [address] Phone [phone] Care Team Providers Care Developing Machine Tender Name Role Phone Tameka Hooper MD Primary Care Prov ider Encounter Details Date Type Department Care Team Description 02/22/2023 Telephone Urogynecology [facility] [address] [place] [address] Bel Villa PA-C [address] [place] [address] Allergies Active Allergy Reactions Severity Noted Date Comments Amoxicillin Rash 02/07/2020 Bactrim Rash 12/15/2011 Ciprofloxacin Rash 12/15/2011 Diltiazem Rash 05/29/2019 Piroxicam Rash 12/15/2011 Cephalexin Rash 12/15/2011 Meloxicam Rash 05/29/2019 Other reaction(s): Other Cilostazol Rash,Unknown 12/15/2011 documented as of this encounter (statuses as of 02/22/2023) Medications Medication Sig Dispensed Refills Start Date End Date Status [place]-3 Fatty Acids (FISH OIL) 500 MG Capsule [...] 07/15/2022 Active Lisinopril 5 MG Oral Tablet (Prinivil)Indicati ons:Essential (primary) hypertension TAKE 1 TABLET BY MOUTH [...] Wheezing. 18 g 5 12/07/2022 Active Nystatin 657336 UNIT/GM External CreamIndications:Y east dermatitis Apply topically [...] 01/02/2023 Active Estradiol 0.1 MG/GM Vaginal Cream (Estrace)Indicatio ns:Postmenopausal [...] 02/03/2023 Solifenacin Succinate 5 MG Oral Tablet (VESIcare)Indicati ons:Mixed incontinence,Urina ry frequency,Urge incontinence,Urina ry urgency Take 1 Tablet by mouth in the morning. 30 Tablet 0 02/22/2023 Active Gemtesa 75 MG Oral Tablet (Vibegron)Indicati ons:Mixed incontinence,Urina ry frequency,Urge incontinence,Urina ry urgency Take 1 Tablet by mouth in the morning. 30 Tablet 11 02/06/2023 3 Discontinue d(Medicatio n/Dose Changed) Oxybutynin Chloride ER 5 MG Oral Tablet Extended Release 24 Hour (Ditropan XL)Indications:Mix ed incontinence,Urina ry frequency,Urge incontinence,Urina ry urgency Take 1 Tablet by mouth in the morning. 30 Tablet 0 02/17/2023 3 Discontinue d(Medicatio n/Dose Changed) documented as of this encounter (statuses as of 02/22/2023) Active Problems Problem Noted Date Other specified [...] as of this encounter (statuses as of 02/22/2023) Resolved Problems Problem Noted Date Resolved Date [...] as of this encounter (statuses as of 02/22/2023) Immunizations Name Administration Dates Next Due COVID-19 [...] Telephone Encounter - Bel Villa PA-C - 02/22/2023 9:40 AM EDT TC to patient. Oxybutynin causing constipation, dry eyes, dry mouth and brain fog. Risks, benefits, alternatives reviewed. Patient agreeable to try Vesicare. Erx sent. documented in this encounter Plan of Treatment Upcoming Encounters Date Type Specialty Care Team Description 02/28/2023 Office Visit Family Medicine Chanelle Newman PA-C [address] [place] [address] [place] [phone] 03/02/2023 Office Visit Cardiology Adrian Savage, DO [address] [place] [address] 03/15/2023 Office Visit Dermatology Anya Pratt PA-C [address] [place] [address] [place] [address] 03/22/2023 Procedure Only Endoscopy Gasper Kim, DO [address] [place] [address] 04/07/2023 Nurse Only Rheumatology Aneesh, Nurse Shabana [address] [place] [phone] 04/21/2023 Office Visit Family Medicine Tameka Hooper MD [address] [place] [address] [place] [address] 06/19/2023 Office Visit Nephrology Nicole Lange MD [address] [place], [place] [address] 08/14/2023 Nurse Only Ancillary Nurse [facility] [address] [place] [address] [place] [address] 09/01/2023 Office Visit Sleep Disorders Lynn Busby, DO [address] [place] [address] 10/23/2023 Office Visit Rheumatology Daniel Tapia MD [address] [place], [place] [address] Scheduled Procedures Name Priority Associated Diagnoses Date/Ti [...] Additional history exists CKD PHOS USE SMARTSET 85401 12/28/202312/02, 04/26/2022, 11/23/2021, Additional history exists O2 ASSESSMENT COMPLETED IN PAST YEAR FOR COPD 02/14/2024 02/13/2023 CKD HGB USE SMARTSET 89513 02/15/202402/14, 02/14/2023, 08/12/2022, Additional history exists DXA Scan 08/01/2024 08/01/2022, 10/2020, 11/21/2013 COLONOSCOPY-EVERY 5 YRS AGES 18-100 02/23/2027 02/23/2022, 08/01/2019, 08/01/2019 DTaP,Tdap,and Td Vaccines (2 - Td or Tdap) 08/07/2030 08/07/2020 (Not indicated), 09/01/1998 Pneumococcal Vaccine: 65+ Years Completed 05/16/2016, 12/01/2014, 12/01/2013, Additional history exists VITAMIN D LEVEL ONCE IN A LIFETIME-USE SMARTSET# [id number] Completed 12/27/2022, 08/12/2022, 03/15/2022, Additional history exists [...] as of this encounter Visit Diagnoses Diagnosis Mixed incontinence- Primary Mixed incontinence urge and stress (male)(female) Urinary frequency Urge incontinence Urinary urgency Urgency of urination documented in this encounter Care Teams Developing Machine Tender Relationship Specialty Start Date End Date Tameka Hooper MD [address] [place] [address] [place] [address] PCP - General Family Medicine 05/29/19 documented as of this encounter
--- OUTSIDE RECORDS SUMMARY | 2023-07-25 21:01 | External Medical Summary | Summary of Care ---
Author Name Unknown Organization [facility] Address [address] [place] [address] Phone [phone] Care Team Providers Care Grader Green Meat Name Role Phone Tameka Hooper MD Primary Care Prov ider Reason for Referral * Precert (Within 10 days (routine)) - Authorized Specialty Diagnoses / Procedures Referred By Contac t Referred To Contact Cardiac Studies Diagnoses Paroxysmal atrial fibrillation (HCC) Frequent PVCs Procedures ECHO, COMPLETE (2D), TRANS-THORACIC Adrian Savage DO [address] [place] [address] Referral ID Status Reason Start Date Expiration Date V isits Requested Visits Authorized [id number] Authorized Precert 11/16/2023 999 999 Reason for Visit * Reason Comments Follow Up Encounter Details Date Type Department Care Team Description 03/02/2023 Office Visit Cardiology, [facility] [address] [place] [address] Adrian Savage DO [address] [place] [id number] Paroxysmal atrial fibrillation (HCC)*; SVT (supraventricular tachycardia) (HCC); Essential (primary) hypertension; Stage 3b chronic kidney disease (HCC); Frequent PVCs Allergies Active Allergy Reactions Severity Noted Date Comments Amoxicillin Rash 02/07/2020 Bactrim Rash 12/15/2011 Ciprofloxacin Rash 12/15/2011 Diltiazem Rash 05/29/2019 Piroxicam Rash 12/15/2011 Cephalexin Rash 12/15/2011 Meloxicam Rash 05/29/2019 Other reaction(s): Other Cilostazol Rash,Unknown 12/15/2011 documented as of this encounter (statuses as of 03/02/2023) Medications Medication Sig Dispensed Refills Start Date End Date Status [place]-3 Fatty Acids (FISH OIL) 500 MG Capsule [...] Wheezing. 18 g 5 12/07/2022 Active Nystatin 412637 UNIT/GM External CreamIndications:Y east dermatitis Apply topically [...] the morning. 30 Tablet 11 03/02/2023 Active Lisinopril 5 MG Oral Tablet (Prinivil)Indicati ons:Essential (primary) hypertension TAKE 1 TABLET BY MOUTH EVERY DAY IN THE MORNING 90 Tablet 3 11/02/2022 3 Discontinue d(Medicatio n/Dose Changed) documented as of this encounter (statuses as of 03/02/2023) Active Problems Problem Noted Date Other specified [...] as of this encounter (statuses as of 03/02/2023) Resolved Problems Problem Noted Date Resolved Date [...] as of this encounter (statuses as of 03/02/2023) Immunizations Name Administration Dates Next Due COVID-19 [...] Sign Reading Time Taken Comments Blood Pressure 122/56 03/02/2023 2:57 PM EDT Pulse 68 03/02/2023 2:57 PM EDT Temperature - - Respiratory Rate 18 03/02/2023 2:57 PM EDT Oxygen Saturation - - Inhaled Oxygen Concentration - - Weight - - Height - - Body Mass Index - - documented in this encounter Progress Notes * Adrian Savage, - 03/02/2023 2:58 PM EDT SUBJECTIVE: Patient returns today for follow up of paroxysmal atrial tachycardia, PSVT, possible atrial fibrillation/flutter maintained in sinus rhythm with flecainide and chronically anticoagulated with Xarelto. Patient lost to follow-up since August of 2021. Denies chest discomfort or heaviness. Chronic dyspnea on exertion unchanged. Wearing supplemental oxygen. No orthopnea, PND, or weight gain. Unfortunately, continues to smoke 5 to 10 cigarettes per day. Tolerating medications listed below. Denies signs/symptoms of GI/ blood loss. Scheduled for EGD due to anemia. Currently treated with iron supplementation. Reports chronic lightheadedness without syncope or near syncope. Borderline resting hypotension noted per review of records. ECG: Sinus rhythm first-degree AV block, low voltage. 3 Day ZIO monitor report summary: Patient had a min HR of 49 bpm, max HR of 121 bpm, and avg HR of 68 bpm. Predominant underlying rhythm was Sinus Rhythm. First Degree AV Block was present. 2 Supraventricular Tachycardia runs occurred, the run with the fastest interval lasting 6 beats with a max rate of 121 bpm (avg 102 bpm); the run with the fastest interval was also the longest. Isolated SVEs were rare (<1.0%), SVE Couplets were rare (<1.0%), and no SVE Triplets were present. Isolated VEs were frequent (16.4%, [address]), VE Couplets were rare (<1.0%, 3), and no VE Triplets were present. Ventricular Bigeminy and Trigeminy were present. No atrial fibrillation was observed The patient used 1 diary entry which correlated with sinus rhythm with ventricular ectopic beats. Lexiscan nuclear stress test report summary July 17, 2020: No evidence of inducible ischemia. Calculated ejection fraction >75% Lexiscan nuclear stress test report summary July 12, 2019: Myocardial perfusion imaging is normal. Overall left ventricular systolic function was normal without regional wall motion abnormalities. The left ventricular ejection fraction was 70%. There are no prior studies available for comparison. 2D echocardiogram report February 17, 2022: A small anterior loculated pericardial effusion is present. The qualitative LV ejection fraction is 60-64% (normal). The LV wall thickness is mildly increased (concentric). The left ventricular wall motion is normal. The left ventricular diastolic function is mildly abnormal (grade I). Mild mitral regurgitation is present. Mild tricuspid regurgitation is present. There is no evidence of pulmonary hypertension. Compared to prior study of 10/06/2020, there is no significant change. 2D echocardiogram report summary October 06, 2020: The primary indication after review was deemed appropriate and the examination was performed. Compared to last available study changes are noted as follows: pericardial effusion has decreased, otherwise, unchanged. Normal LV chamber size wall thickness. Normal LV systolic function without regional wall motion abnormality. Calculated LV ejection Fraction = 65% (bi-plane method of discs). Grade 1 diastolic dysfunction. No significant valvular pathology. A trivial anterior loculated pericardial effusion is present. 2D echocardiogram report summary July 09, 2019: Normal LV chamber size with mild concentric LVH. Normal LV systolic function without regional wall motion abnormality. Calculated LV ejection Fraction = 62% (single plane four chamber method of discs). Grade 1 diastolic dysfunction. No significant valvular pathology. Normal left atrial size. A small anterior loculated pericardial effusion is present. The pericardial effusion contains marked fibrous strands. ROS: All others negative other than those noted in the HPI. 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) Z93.3 Paroxysmal atrial fibrillation ([facility]) I48.0 H/O resection of large bowel Z90.49 Diverticulosis of large intestine without hemorrhage K57.30 Mixed hyperlipidemia E78.2 Tobacco use disorder F17.200 Major depressive disorder, single episode, unspecified F32.9 Chronic bilateral low back pain without sciatica M54.50, G89.29 DDD (degenerative disc disease), lumbar M51.36 Stage 3b chronic kidney disease N18.32 Senile osteoporosis M81.0 Major depressive disorder with single episode, in full remission ([facility]) F32.5 Hypoparathyroidism ([facility]) E20.9 Chronic hypoxemic respiratory failure ([facility]) J96.11 History of healed osteoporosis fracture Z87.310 Actinic keratosis L57.0 Essential (primary) hypertension I10 COPD, group B, by GOLD 2017 classification ([facility]) J44.9 Hypertensive kidney disease with stage 3b chronic kidney disease ([facility]) I12.9, N18.32 Other specified peripheral vascular diseases ([facility]) I73.89 Social History Tobacco Use Smoking status: Current Every Day Smoker Packs/day: 0.50 Years: 35.00 Pack years: 17.50 Types: Cigarettes Smokeless tobacco: Never Used Tobacco comment: 5/day currently 06/21/19 Substance Use Topics Alcohol use: No Drug use: No Vaping/E-Cigarette Use Vaping/E-Cigarette Use Never User Vaping/E-Cigarette Substances Vaping/E-Cigarette Devices Review of patient's allergies indicates: Allergen Reactions Amoxicillin Rash Bactrim Rash Ciprofloxacin Rash Diltiazem Rash Feldene [Piroxicam] Rash Keflex [Cephalexin] Rash Meloxicam Rash Other reaction(s): Other Pletal [Cilostazol] Rash and Unknown Current Outpatient Medications Medication Sig Dispense Refill [place]-3 Fatty Acids (FISH OIL) 500 MG Capsule [...] 1 TABLET BY MOUTH EVERY DAY WITH [id number] Tablet 1 Verapamil HCl ER 240 MG [...] Breath or Wheezing. 18 g 5 Nystatin 769675 UNIT/GM External Cream Apply topically to affected [...] No current facility-administered medications for this visit. Lipid Panel Results: TSH(uIU/mL) Judith Dt/Tm Resulted Value Status 07/11/19 1:02P 07/11/19 2.99 FINAL CBC Results: OBJECTIVE/PHYSICAL EXAMINATION: BP 122/56 | Pulse 68 | Resp 18 General: NAD, AAO x3, well nourished. Chronically ill. HEENT: Normocephalic. Atraumatic. Conjunctiva pink, no scleral icterus. No carotid bruits, the carotid upstrokes are brisk. No JVD. No HJR Heart: Regular normal S-1 and S-2 no S-3 or S-4 gallop. No murmurs or rubs appreciated. PMI is not displaced. No RV heave. Lungs: Diminished breath sounds bilateral, Scattered rhonchi at the left lung base, clears with cough, otherwise no rales, or wheeze. Abdomen: Normal bowel sounds. Soft. Nontender. No masses or organomegaly. No abdominal bruits. Extremities: Trace bilateral ankl edema. Pulses: radial=2/4. Neuro: No focal deficits. ASSESSMENT: 1. 82-year-old female with history of paroxysmal atrial dysrhythmias including atrial tachycardia, SVT, and possible atrial fibrillation/flutter. Rhythm controlled with flecainide and appropriately anticoagulated with Xarelto. Reduced dose Xarelto due to renal insufficiency. 2. Hypertension controlled with borderline hypotension and ongoing lightheadedness. 3. Asymptomatic PVCs/ventricular bigeminy with preserved LV systolic function 4. COPD with oxygen dependence and ongoing tobacco abuse. 5. LDL 84 mg/dL per most recent lipid panel 6. CKD stage 3 PLAN: Echo, complete (2d), trans-thoracic Ekg Reduce lisinopril to 2.5 mg daily. Consider discontinuation if patient continues to note ongoing lightheadedness with borderline hypotension. Continue verapamil, flecainide, and Xarelto as ordered. Electrophysiology input appreciated. Repeat echocardiogram in 6 months for reassessment of left ventricular systolic function in the setting of frequent PVCs. Follow Up: Return in about 9 months (around 12/01/2023). Adrian Savage DO, [facility] Associate Cardiology - Nikole Reardon documented in this encounter Nursing Notes * Julia Masterson LPN - 03/02/2023 2:59 PM EDT Examination Room: 11 Name: Eliazar Beaulieu Date of : (1940) Reason for Visit: Follow up Interim Hospitalization(s): Denies Problems/Concerns: Lab work Chest Pain/SOB: Denies My [facility] is a way you can talk to your provider online through e-mail. Would you like to sign up? I can activate it for you? ALREADY ACTIVE Patient was instructed to not get up on the exam table until directed and assisted by their provider; patient is to remain seated in the chair/ wheelchair/ exam table for fall prevention and safety reasons. Patient is aware to have assistance to step down off exam table with personnel. Patient voiced full comprehension of instructions. documented in this encounter Plan of Treatment Upcoming Encounters Date Type Specialty Care Team Description 03/15/2023 Office Visit Dermatology Anya Pratt PA-C [address] [place] [address] [place] [address] 03/22/2023 Procedure Only Endoscopy Gasper Kim, DO [address] [place] [address] 04/07/2023 Nurse Only Rheumatology Aneesh, [address] [place] [phone] 04/21/2023 Office Visit Family Medicine Tameka Hooper MD [address] [place] [address] [place] [address] 06/19/2023 Office Visit Nephrology Nicole Lange MD [address] [facility] [place] [address] 08/14/2023 Nurse Only Ancillary Nurse Shelby [address] [place] [address] 09/01/2023 Office Visit Sleep Disorders Lynn Busby, DO [address] [place] [address] 10/23/2023 Office Visit Rheumatology Daniel Tapia MD [facility] [place] [address] 10/31/2023 Cardiac Studies Cardiac Studies Scheduled Orders Name Type Priority Associated Diagnoses Orde r Schedule EKG EKG Routine Paroxysmal atrial fibrillation (HCC) Ordered: 03/02/2023 ECHO, COMPLETE (2D), TRANS-THORACIC Echocardiology Routine Paroxysmal atrial fibrillation (HCC) Frequent PVCs Expected: 11/16/2023 (Approximate), Expires: 04/01/2025 Scheduled Procedures Name Priority Associated Diagnoses Date/Ti me COLONOSCOPY FLEXIBLE PROXIMAL DIAGNOSTIC Recall History of colon polyps Health Maintenance Due Date Last Done Comments DISCUSS TOBACCO CESSATION (REFER TO SMARTSET #4133) 1940 COVID-19 Vaccine (4 - Moderna series) 07/27/2021 06/01/2021, 10/20/2020, 09/15/2020 Influenza Vaccine (FLU shot) (#1) 2023 Depression Screening, Annual for Pts 12 and Over 08/11/2023 08/11/2022 Albumin/Creatinine Ratio 08/15/2023 08/15/2022, 01/31 GFR 08/17/2023 02/14/2023, 12/02, 08/12/2022, Additional history exists CKD PHOS USE SMARTSET 82036 12/28/202312/02, 04/26/2022, 11/23/2021, Additional history exists CKD HGB USE SMARTSET 31167 02/29/202402/28, 02/28/2023, 02/14/2023, Additional history exists O2 ASSESSMENT COMPLETED IN PAST YEAR FOR COPD 02/29/2024 02/28/2023 DXA Scan 08/01/2024 08/01/2022, 10/2020, 11/21/2013 COLONOSCOPY-EVERY 5 YRS AGES 18-100 02/23/2027 02/23/2022, 08/01/2019, 08/01/2019 DTaP,Tdap,and Td Vaccines (2 - Td or Tdap) 08/07/2030 08/07/2020 (Not indicated), 09/01/1998 Pneumococcal Vaccine: 65+ Years Completed 05/16/2016, 12/01/2014, 12/01/2013, Additional history exists VITAMIN D LEVEL ONCE IN A LIFETIME-USE SMARTSET# [id number] Completed 12/27/2022, 08/12/2022, 03/15/2022, Additional history exists [...] encounter Visit Diagnoses Diagnosis Paroxysmal atrial fibrillation (HCC)- Primary Atrial fibrillation SVT (supraventricular tachycardia) (HCC) Other specified cardiac dysrhythmias Essential (primary) hypertension Unspecified essential hypertension Stage 3b chronic kidney disease (HCC) Frequent PVCs Other premature beats documented in this encounter Care Teams Grader Green Meat Relationship Specialty Start Date End Date Tameka Hooper MD [address] [place] [address] [place] [address] PCP - General Family Medicine 05/29/19 documented as of this encounter"
--- OUTSIDE RECORDS SUMMARY | 2023-07-25 21:01 | External Medical Summary ---
Author Name Unknown Address Unknown Organization K01:[facility] [place] [address] [facility] [place] [address] Laboratory Report Ordering Provider Test Date Status CARYN AGUERO 02/28/2023 15:24:54 Final Observation Date Value Abnormality Reference (Units ) Status SYNC LEUKOCYTES IN BLOOD BY AUTOMATED COUNT 02/28/2023 15:24:54 9.91 4.00-10.80 (K/uL) Final Segs 02/28/2023 15:24:54 62.2 40.0-75.0 (%) Final Lymphs % 02/28/2023 15:24:54 21.5 18.0-42.0 (%) Final Monos 02/28/2023 15:24:54 10.8 1.0-11.0 (%) Final Eosinophils 02/28/2023 15:24:54 3.1 0.0-6.0 (%) Final Basos 02/28/2023 15:24:54 0.5 0.0-2.0 (%) Final Immature Granulocyte, Percent 02/28/2023 15:24:54 1.9 0.0-2.0 (%) Final Absolute Segs 02/28/2023 15:24:54 6.16 1.80-7.70 (K/uL) Final Lymphs, absolute 02/28/2023 15:24:54 2.13 1.00-4.80 (K/ul) Final Monos, Abs 02/28/2023 15:24:54 1.07 0.00-1.10 (K/uL) Final Eos, Abs 02/28/2023 15:24:54 0.31 0.00-0.70 (K/uL) Final Basos, Abs 02/28/2023 15:24:54 0.05 0.00-0.20 (K/uL) Final Immature Granulocytes, Number 02/28/2023 15:24:54 0.19 0.00-0.20 (K/uL) Final Performing Location [facility] [place] [facility] [place] [id number]
--- OUTSIDE RECORDS SUMMARY | 2023-07-25 21:01 | External Medical Summary | Summary of Care ---
Author Name Unknown Organization [facility] Address [address] [place] [address] Phone [phone] Care Team Providers Care Assistant Inventory Manager Name Role Phone Tameka Hooper MD Primary Care Prov ider Reason for Visit * Reason Comments Outpatient Testing Encounter Details Date Type Department Care Team Description 02/28/2023 Laboratory Laboratory [address] [place] [address] [place] [address] Anemia, unspecified type Allergies Active Allergy Reactions Severity Noted Date Comments Amoxicillin Rash 02/07/2020 Bactrim Rash 12/15/2011 Ciprofloxacin Rash 12/15/2011 Diltiazem Rash 05/29/2019 Piroxicam Rash 12/15/2011 Cephalexin Rash 12/15/2011 Meloxicam Rash 05/29/2019 Other reaction(s): Other Cilostazol Rash,Unknown 12/15/2011 documented as of this encounter (statuses as of 02/28/2023) Medications Medication Sig Dispensed Refills Start Date End Date Status [place]-3 Fatty Acids (FISH OIL) 500 MG Capsule [...] Wheezing. 18 g 5 12/07/2022 Active Nystatin 048593 UNIT/GM External CreamIndications:Ye ast dermatitis Apply topically [...] Description 03/02/2023 Office Visit Cardiology Adrian Savage O, DO [address] [place] [address] 03/15/2023 Office Visit Dermatology Anya Pratt PA-C [address] [place] [address] [place] [address] 03/22/2023 Procedure Only Endoscopy Gasper Kim DO [address] [place] [address] 04/07/2023 Nurse Only Rheumatology [place], Nurse Rheum Mo [address] [place] [address] [place] [address] 04/21/2023 Office Visit Family Medicine Tameka Hooper MD [address] [place] [address] [place] [address] 06/19/2023 Office Visit Nephrology Nicole Lange MD [address] [facility] [place] [address] 08/14/2023 Nurse Only Ancillary [place], Nurse Annual [address] [place] [address] 09/01/2023 Office Visit Sleep Disorders Lynn Busby, DO [address] [place] [address] 10/23/2023 Office Visit Rheumatology Daniel Tapia MD [address] [place] [address] Pending Results Name Type Priority Associated Diagnoses Date /Time CBC WITH WBC DIFFERENTIAL Lab Routine Anemia, unspecified type 02/28/2023 3:24 PM EDT CBC Lab Routine Anemia, unspecified type 02/28/2023 3:24 PM EDT DIFFERENTIAL, AUTOMATED Lab Routine Anemia, unspecified type 02/28/2023 3:24 PM EDT Scheduled Procedures Name Priority Associated Diagnoses Date/Ti me COLONOSCOPY FLEXIBLE PROXIMAL DIAGNOSTIC Recall History of colon polyps Health Maintenance Due Date Last Done Comments DISCUSS TOBACCO CESSATION (REFER TO SMARTSET #6424) 1942 COVID-19 Vaccine (4 - Moderna series) 07/27/2021 06/01/2021, 10/20/2020, 09/15/2020 Influenza Vaccine (FLU shot) (#1) 2023 Depression Screening, Annual for Pts 12 and Over 08/11/2023 08/11/2022 Albumin/Creatinine Ratio 08/15/2023 08/15/2022, 01/31 GFR 08/17/2023 02/14/2023, 12/02, 08/12/2022, Additional history exists CKD PHOS USE SMARTSET 97872 12/28/202312/02, 04/26/2022, 11/23/2021, Additional history exists O2 ASSESSMENT COMPLETED IN PAST YEAR FOR COPD 02/14/2024 02/13/2023 CKD HGB USE SMARTSET 89744 02/15/202402/14, 02/14/2023, 08/12/2022, Additional history exists DXA Scan 08/01/2024 08/01/2022, 10/2020, 11/21/2013 COLONOSCOPY-EVERY 5 YRS AGES 18-100 02/23/2027 02/23/2022, 08/01/2019, 08/01/2019 DTaP,Tdap,and Td Vaccines (2 - Td or Tdap) 08/07/2030 08/07/2020 (Not indicated), 09/01/1998 Pneumococcal Vaccine: 65+ Years Completed 05/16/2016, 12/01/2014, 12/01/2013, Additional history exists VITAMIN D LEVEL ONCE IN A LIFETIME-USE SMARTSET# 18338 Completed 12/27/2022, 08/12/2022, 03/15/2022, Additional history exists [...] this encounter Visit Diagnoses Diagnosis Anemia, unspecified type documented in this encounter Care Teams Assistant Inventory Manager Relationship Specialty Start Date End Date Tameka Hooper MD [address] [place] [address] [place] [address] PCP - General Family Medicine 05/29/19 documented as of this encounter
--- OUTSIDE RECORDS SUMMARY | 2023-07-25 21:02 | External Medical Summary | Summary of Care ---
Author Name Unknown Organization [facility] [address] [facility] [address] Phone [phone] Care Team Providers Care Food Prep Worker Name Role Phone Tameka Hooper MD Primary Care Prov ider Reason for Visit * Reason Onset Date Comments Precert Denied 02/08/2023 Gemtesa 75MG Encounter Details Date Type Department Care Team Description 02/08/2023 Telephone Urogynecology [facility] [address] [place] [address] Bel Villa PA-C [address] [place] [address] Precert Denied (Gemtesa 75MG) Allergies Active Allergy Reactions Severity Noted Date Comments Amoxicillin Rash 02/07/2020 Bactrim Rash 12/15/2011 Ciprofloxacin Rash 12/15/2011 Diltiazem Rash 05/29/2019 Piroxicam Rash 12/15/2011 Cephalexin Rash 12/15/2011 Meloxicam Rash 05/29/2019 Other reaction(s): Other Cilostazol Rash,Unknown 12/15/2011 documented as of this encounter (statuses as of 02/15/2023) Medications Medication Sig Dispensed Refills Start Date End Date Status [place]-3 Fatty Acids (FISH OIL) 500 MG Capsule [...] 02/14/2022 Active Xarelto 15 MG Oral Tablet (Rivaroxaban)Silvana [...] 07/15/2022 Active Lisinopril 5 MG Oral Tablet (Prinivil)Indicat ions:Essential (primary) hypertension TAKE 1 TABLET BY MOUTH [...] Wheezing. 18 g 5 12/07/2022 Active Nystatin 633529 UNIT/GM External CreamIndications: Yeast dermatitis Apply topically [...] 01/02/2023 Active Estradiol 0.1 MG/GM Vaginal Cream (Estrace)Indicati ons:Postmenopausa [...] on 02/03/2023 Gemtesa 75 MG Oral Tablet (Vibegron)Indicat ions:Mixed incontinence,Urin tangela frequency,Urge incontinence,Urin tangela urgency Take 1 Tablet by mouth in the morning. 30 Tablet 11 02/06/2023 Active Miconazole Nitrate 2 % Vaginal Cream (Monistat 7) Apply to affected area twice a day for 7 days 45 g 1 12/06/2022 02/14/20 23 Discontinued methylPREDNISolon e 4 MG Oral Tablet Therapy Pack (Medrol) follow package directions 21 Tablet 0 01/06/2023 02/14/20 23 Discontinued documented as of this encounter (statuses as of 02/15/2023) Active Problems Problem Noted Date Other specified [...] as of this encounter (statuses as of 02/15/2023) Resolved Problems Problem Noted Date Resolved Date [...] as of this encounter (statuses as of 02/15/2023) Immunizations Name Administration Dates Next Due COVID-19 [...] Telephone Encounter - Bel Villa PA-C - 02/15/2023 1:54 PM EDT TC to patient. Discussed OAB medication options at length. Risks and benefits reviewed. Patient would like to avoid anticholinergics due to risks of dry mouth, dry eyes, constipation and risk for memory issues associated with senior care use. Patient states she has dry eyes and dry mouth. Myrbetriq contraindicated with Flecainide due to risk for QT prolongation. Patient taking flecainide for heart arrhythmia. Patient would like to try Gemtesa. * Telephone Encounter - Merari Ervin RN - 02/15/2023 1:03 PM EDT Gemtesa prior auth was denied. Provider aware of alternatives. * Telephone Encounter - Abena Sen - 02/08/2023 3:17 PM EDT Women's Medicine Pre-Cert Request Medication/Disease State Information: Medication: Gemtesa 75MG Oral/Inhaler/Self-administered injection Medication- [place] [id number] Diagnosis (including ICD-10): N39.41 Urge incontinence, R39.15 Urinary urgency, R30.0 Dysuria, R35.1 Nocturia, R35.0 Urinary frequency Medication(s) Tried/Failed/Contraindicated: Myrbetric contradiction pt takes Flecainide which increases risk of QT prologation. See corresponding visit note(s) for additional supporting clinical information. Office Information: Prescriber: Bel Villa PA-C documented in this encounter Plan of Treatment Upcoming Encounters Date Type Specialty Care Team Description 02/24/2023 Office Visit Gynecology Urology Bel Villa PA-C [address] [place] [address] Nurse John Reardon [address] [place] [address] 02/28/2023 Office Visit Family Medicine Chanelle Newman PA-C [address] [place] [address] [place] [address] 03/02/2023 Office Visit Cardiology Adrian Savage, DO [address] [place] [address] 03/15/2023 Office Visit Dermatology Anya Pratt PA-C [address] [place] [address] [place] [address] 03/22/2023 Procedure Only Endoscopy Gasper Kim, DO [address] [place] [address] 04/07/2023 Nurse Only Rheumatology Aneesh, [address] [place] [phone] 04/21/2023 Office Visit Family Medicine Tameka Hooper MD [address] [place] [address] [place] [address] 06/19/2023 Office Visit Nephrology Nicole Lange MD [address] [facility] [place] [facility] [place] [address] 08/14/2023 Nurse Only Ancillary Nurse [place] [address] [place] [address] 09/01/2023 Office Visit Sleep Disorders Lynn Busby, DO [address] [place] [address] 10/23/2023 Office Visit [facility]umatology [facility] [facility] [address] Scheduled Procedures Name Priority Associated Diagnoses Date/Ti [...] Additional history exists CKD PHOS USE SMARTSET 89434 12/28/202312/02, 04/26/2022, 11/23/2021, Additional history exists O2 ASSESSMENT COMPLETED IN PAST YEAR FOR COPD 02/14/2024 02/13/2023 CKD HGB USE SMARTSET 27815 02/15/202402/14, 02/14/2023, 08/12/2022, Additional history exists DXA Scan 08/01/2024 08/01/2022, 10/2020, 11/21/2013 COLONOSCOPY-EVERY 5 YRS AGES 18-100 02/23/2027 02/23/2022, 08/01/2019, 08/01/2019 DTaP,Tdap,and Td Vaccines (2 - Td or Tdap) 08/07/2030 08/07/2020 (Not indicated), 09/01/1998 Pneumococcal Vaccine: 65+ Years Completed 05/16/2016, 12/01/2014, 12/01/2013, Additional history exists VITAMIN D LEVEL ONCE IN A LIFETIME-USE SMARTSET# 72379 Completed 12/27/2022, 08/12/2022, 03/15/2022, Additional history exists [...] filedocumented as of this encounter Care Teams Food Prep Worker Relationship Specialty Start Date End Date Tameka Hooper MD [address] [place] [address] [place] [address] PCP - General Family Medicine 05/29/19 documented as of this encounter
--- OUTSIDE RECORDS SUMMARY | 2023-07-25 21:02 | External Medical Summary ---
Author Name Unknown Address Unknown Organization K01:[facility] [place] [address] [place] [address] Laboratory Report Ordering Provider Test Date Status CARYN AGUERO 02/14/2023 12:49:26 Final Observation Date Value Abnormality Reference (Units ) Status WBC, Total 02/14/2023 12:49:26 9.65 4.00-10.80 (K/uL) Final RBC 02/14/2023 12:49:26 3.53 3.85-5.15 (M/uL) Final Hemoglobin 02/14/2023 12:49:26 11.5 Below low normal 12.0-15.3 (g/dL) Final HCT 02/14/2023 12:49:26 38.1 36.0-45.2 (%) Final MCV 02/14/2023 12:49:26 107.9 81.5-97.5 (fL) Final MCH 02/14/2023 12:49:26 32.6 27.0-34.0 (pg) Final MCHC 02/14/2023 12:49:26 30.2 32.0-36.0 (g/dL) Final RDW 02/14/2023 12:49:26 14.6 11.5-15.5 (%) Final Platelets 02/14/2023 12:49:26 281 140-400 (K/uL) Final MPV 02/14/2023 12:49:26 9.4 6.6-11.1 (fL) Final Nucleated erythrocytes/100 leukocytes [Ratio] in Blood by Automated count 02/14/2023 12:49:26 0 <=0 (/100 WBCs) Final Performing Location [facility] [place] [address] [place] [address]
--- OUTSIDE RECORDS SUMMARY | 2023-07-25 21:02 | External Medical Summary ---
Author Name Unknown Address Unknown Organization [id number]:[facility] - [address] [place] [id number] Laboratory Report Ordering Provider Test Date Status CARYN AGUERO 02/14/2023 12:49:26 Final Observation Date Value Abnormality Reference (Units) Status Bacteria identified in Specimen by Culture 02/14/2023 12:49:26 No significant growth Final Test: Culture, Urine, Quanti tative
Specimen Source: Urine, Clean Catch
Specimen Type: Urine
Specimen Date: 02/14/2023 12:49 PM
Result Date: 02/15/2023 3:57 PM
Result Status: Final result
Resulting Lab: [facility]
[address]
[place] [address]

CULTURE

No significant growth

null Performing Location LAB[facility] - [address] [facility] [address]
--- OUTSIDE RECORDS SUMMARY | 2023-07-25 21:02 | External Medical Summary | Summary of Care ---
Author Name Unknown Organization [facility] Address [address] [facility] [address] Phone [phone] Care Team Providers Care Torpedoman'S Mate Name Role Phone Tameka Hooper MD Primary Care Prov ider Reason for Visit * Reason Onset Date Comments Precert Denied 02/08/2023 Gemtesa 75MG Encounter Details Date Type Department Care Team Description 02/08/2023 Telephone Urogynecology [facility] [address] [place] [address] Bel Villa PA-C [address] [place] [address] Precert Denied (Gemtesa 75MG) Allergies Active Allergy Reactions Severity Noted Date Comments Amoxicillin Rash 02/07/2020 Bactrim Rash 12/15/2011 Ciprofloxacin Rash 12/15/2011 Diltiazem Rash 05/29/2019 Piroxicam Rash 12/15/2011 Cephalexin Rash 12/15/2011 Meloxicam Rash 05/29/2019 Other reaction(s): Other Cilostazol Rash,Unknown 12/15/2011 documented as of this encounter (statuses as of 02/15/2023) Medications Medication Sig Dispensed Refills Start Date End Date Status [place]-3 Fatty Acids (FISH OIL) 500 MG Capsule [...] Wheezing. 18 g 5 12/07/2022 Active Nystatin 386237 UNIT/GM External CreamIndications: Yeast dermatitis Apply topically [...] injection Medication- [place] [phone] Diagnosis (including ICD-10): N39.41 Urge incontinence, R39.15 [...] Urology Bel Villa PA-C [address] [place] [address] Nurse John Reardon [address] [place] [address] 02/28/2023 Office Visit Family Medicine Chanelle Newman PA-C [address] [place] [address] [place] [address] 03/02/2023 Office Visit Cardiology Adrian Savage DO [address] [place] [address] 03/15/2023 Office Visit Dermatology Anya Pratt PA-C [address] [place] [address] [place] [address] 03/22/2023 Procedure Only Endoscopy Gasper Kim DO [address] [place] [address] 04/07/2023 Nurse Only Rheumatology [place], Nurse Rheum [address] [place] [phone] 04/21/2023 Office Visit Family Medicine Tameka Hooper MD [address] [place] [address] [place] [address] 06/19/2023 Office Visit Nephrology Nicole Lange [place] [address] [place] [address] 08/14/2023 Nurse Only Ancillary [place], Nurse Annual [address] [place] [address] 09/01/2023 Office Visit Sleep Disorders Lynn Busby DO [address] [place] [address] 10/23/2023 Office Visit Rheumatology Daniel Tapia MD [facility] [place] [address] Scheduled Procedures Name Priority Associated Diagnoses Date/Ti me COLONOSCOPY FLEXIBLE PROXIMAL DIAGNOSTIC Recall History of colon polyps Health Maintenance Due Date Last Done Comments DISCUSS TOBACCO CESSATION (REFER TO SMARTSET #6538) 1940 COVID-19 Vaccine (4 - Moderna series) 07/27/2021 06/01/2021, 10/20/2020, 09/15/2020 Influenza Vaccine (FLU shot) (#1) 2023 Depression Screening, Annual for Pts 12 and Over 08/11/2023 08/11/2022 Albumin/Creatinine Ratio 08/15/2023 08/15/2022, 01/31 GFR 08/17/2023 02/14/2023, 12/02, 08/12/2022, Additional history exists CKD PHOS USE SMARTSET 64208 12/28/202312/02, 04/26/2022, 11/23/2021, Additional history exists O2 ASSESSMENT COMPLETED IN PAST YEAR FOR COPD 02/14/2024 02/13/2023 CKD HGB USE SMARTSET 15403 02/15/202402/14, 02/14/2023, 08/12/2022, Additional history exists DXA Scan 08/01/2024 08/01/2022, 10/2020, 11/21/2013 COLONOSCOPY-EVERY 5 YRS AGES 18-100 02/23/2027 02/23/2022, 08/01/2019, 08/01/2019 DTaP,Tdap,and Td Vaccines (2 - Td or Tdap) 08/07/2030 08/07/2020 (Not indicated), 09/01/1998 Pneumococcal Vaccine: 65+ Years Completed 05/16/2016, 12/01/2014, 12/01/2013, Additional history exists VITAMIN D LEVEL ONCE IN A LIFETIME-USE SMARTSET# 99508 Completed 12/27/2022, 08/12/2022, 03/15/2022, Additional history exists [...] filedocumented as of this encounter Care Teams Torpedoman'S Mate Relationship Specialty Start Date End Date Tameka Hooper MD [address] [place] [address] [place] [address] PCP - General Family Medicine 05/29/19 documented as of this encounter
--- OUTSIDE RECORDS SUMMARY | 2023-07-25 21:02 | External Medical Summary | Summary of Care ---
Author Name Unknown Organization [facility] Address [address] [place] [address] Phone [phone] Care Team Providers Care Life Support Technician Name Role Phone Tameka Hooper MD Primary Care Prov ider Reason for Visit * Reason Comments Outpatient Testing Encounter Details Date Type Department Care Team Description 02/14/2023 Laboratory Laboratory [address] [place] [address] [place] [address] Urinary frequency; Dizziness Allergies Active Allergy Reactions Severity Noted Date Comments Amoxicillin Rash 02/07/2020 Bactrim Rash 12/15/2011 Ciprofloxacin Rash 12/15/2011 Diltiazem Rash 05/29/2019 Piroxicam Rash 12/15/2011 Cephalexin Rash 12/15/2011 Meloxicam Rash 05/29/2019 Other reaction(s): Other Cilostazol Rash,Unknown 12/15/2011 documented as of this encounter (statuses as of 02/14/2023) Medications Medication Sig Dispensed Refills Start Date End Date Status [place]-3 Fatty Acids (FISH OIL) 500 MG Capsule [...] Wheezing. 18 g 5 12/07/2022 Active Nystatin 524229 UNIT/GM External CreamIndications:Ye ast dermatitis Apply topically [...] the morning. 30 Tablet 11 02/06/2023 Active documented as of this encounter (statuses as of 02/14/2023) Active Problems Problem Noted Date Other specified [...] as of this encounter (statuses as of 02/14/2023) Resolved Problems Problem Noted Date Resolved Date [...] as of this encounter (statuses as of 02/14/2023) Immunizations Name Administration Dates Next Due COVID-19 [...] Bel Villa PA-C [address] [place] [phone] Nurse John Reardon [address] [place] [address] 02/28/2023 Office Visit Family Medicine Chanelle Newamn PAJamaC [address] [place] [address] [place] [address] 03/02/2023 Office Visit Cardiology Adrian Savage, DO [address] [place] [address] 03/15/2023 Office Visit Dermatology Anya Pratt PA-C [address] [place] [address] [place] [address] 03/22/2023 Procedure Only Endoscopy Gasper Kim, DO [address] [place] [address] 04/07/2023 Nurse Only Rheumatology [place], Nurse Rheum [address] [place] [phone] 04/21/2023 Office Visit Family Medicine Tameka Hooper MD [address] [place] [address] [place] [address] 06/19/2023 Office Visit Nephrology Nicole Lange MD [address] [facility], [place] [address] 08/14/2023 Nurse Only Ancillary [place], Nurse Annual Wellness [address] [place] [address] [place] [address] 09/01/2023 Office Visit Sleep Disorders Lynn Busby, DO [address] [place] [address] 10/23/2023 Office Visit Rheumatology Daniel Tapia MD [address] [place] [address], [place] [address] Pending Results Name Type Priority Associated Diagnoses Date /Time URINALYSIS WITH MICROSCOPIC EXAM Lab Routine Urinary frequency 02/14/2023 12:49 PM EDT BASIC METABOLIC PANEL Lab Routine Dizziness 02/14/2023 12:49 PM EDT CBC WITH WBC DIFFERENTIAL Lab Routine Dizziness 02/14/2023 12:49 PM EDT CBC Lab Routine Dizziness 02/14/2023 12:49 PM EDT DIFFERENTIAL, AUTOMATED Lab Routine Dizziness 02/14/2023 12:49 PM EDT Scheduled Procedures Name Priority Associated Diagnoses Date/Ti me COLONOSCOPY FLEXIBLE PROXIMAL DIAGNOSTIC Recall History of colon polyps Health Maintenance Due Date Last Done Comments DISCUSS TOBACCO CESSATION (REFER TO SMARTSET #3291) 1940 COVID-19 Vaccine (4 - Moderna series) 07/27/2021 06/01/2021, 10/20/2020, 09/15/2020 Influenza Vaccine (FLU shot) (#1) 2023 GFR 06/28/2023 12/27/2022, 08/03, 04/26/2022, Additional history exists Depression Screening, Annual for Pts 12 and Over 08/11/2023 08/11/2022 CKD HGB USE SMARTSET 44276 08/12/202308/12, 03/10/2022, 03/10/2022, Additional history exists Albumin/Creatinine Ratio 08/15/2023 08/15/2022, 01/31 CKD PHOS USE SMARTSET 66003 12/28/202312/02, 04/26/2022, 11/23/2021, Additional history exists O2 ASSESSMENT COMPLETED IN PAST YEAR FOR COPD 02/14/2024 02/13/2023 DXA Scan 08/01/2024 08/01/2022, 10/2020, 11/21/2013 COLONOSCOPY-EVERY 5 YRS AGES 18-100 02/23/2027 02/23/2022, 08/01/2019, 08/01/2019 DTaP,Tdap,and Td Vaccines (2 - Td or Tdap) 08/07/2030 08/07/2020 (Not indicated), 09/01/1998 Pneumococcal Vaccine: 65+ Years Completed 05/16/2016, 12/01/2014, 12/01/2013, Additional history exists VITAMIN D LEVEL ONCE IN A LIFETIME-USE SMARTSET# 67288 Completed 12/27/2022, 08/12/2022, 03/15/2022, Additional history exists [...] as of this encounter Visit Diagnoses Diagnosis Urinary frequency Dizziness Dizziness and giddiness documented in this encounter Care Teams Life Support Technician Relationship Specialty Start Date End Date Tameka Hooper MD [address] [place] [address] [place] [address] PCP - General Family Medicine 05/29/19 documented as of this encounter
--- OUTSIDE RECORDS SUMMARY | 2023-07-25 21:02 | External Medical Summary | Summary of Care ---
Author Name Unknown Organization [facility] Address [address] [facility] [address] Phone [phone] Care Team Providers Care Global Commodity Manager Name Role Phone Tameka Hooper MD Primary Care Prov ider Reason for Visit * Reason Onset Date Comments Precert Denied 02/08/2023 Gemtesa 75MG Encounter Details Date Type Department Care Team Description 02/08/[address] [facility] [address] [place] [address] Bel Villa PA-C [address] [place] [address] Precert Denied (Gemtesa 75MG) Allergies Active Allergy Reactions Severity Noted Date Comments Amoxicillin Rash 02/07/2020 Bactrim Rash 12/15/2011 Ciprofloxacin Rash 12/15/2011 Diltiazem Rash 05/29/2019 Piroxicam Rash 12/15/2011 Cephalexin Rash 12/15/2011 Meloxicam Rash 05/29/2019 Other reaction(s): Other Cilostazol Rash,Unknown 12/15/2011 documented as of this encounter (statuses as of 02/17/2023) Medications Medication Sig Dispensed Refills Start Date End Date Status [place]-3 Fatty Acids (FISH OIL) 500 MG Capsule [...] Wheezing. 18 g 5 12/07/2022 Active Nystatin 231763 UNIT/GM External CreamIndications: Yeast dermatitis Apply topically [...] Oral Tablet Extended Release 24 Hour (Ditropan XL)Indications:Mi xed incontinence,Urin tangela frequency,Urge incontinence,Urin tangela urgency Take 1 Tablet by mouth in the morning. 30 Tablet 0 02/17/2023 Active Miconazole Nitrate 2 % Vaginal Cream (Monistat 7) Apply to affected area twice a day for 7 days 45 g 1 12/06/2022 02/14/20 23 Discontinued methylPREDNISolon e 4 MG Oral Tablet Therapy Pack (Medrol) follow package directions 21 Tablet 0 01/06/2023 02/14/20 23 Discontinued documented as of this encounter (statuses as of 02/17/2023) Active Problems Problem Noted Date Other specified [...] as of this encounter (statuses as of 02/17/2023) Resolved Problems Problem Noted Date Resolved Date [...] as of this encounter (statuses as of 02/17/2023) Immunizations Name Administration Dates Next Due COVID-19 [...] encounter Miscellaneous Notes * Addendum Note - Bel Villa PA-C - 02/17/2023 10:22 AM EDTAddended by: BEL VILLA on: 02/17/2023 10:22 AM Modules accepted: Orders * Telephone Encounter - Bel Villa PA-C - 02/17/2023 10:21 AM EDT TC to patient. Is agreeable to try oxybutynin. Due to lack of insurance coverage for Gemtesa. Reviewed risks, benefits and alternatives. * Telephone Encounter - Bel Villa PA-C - 02/15/2023 1:54 PM EDT TC to patient. Discussed OAB medication options at length. Risks and benefits reviewed. Patient would like to avoid anticholinergics due to risks of dry mouth, dry eyes, constipation and risk for memory issues associated with usp use. Patient states she has dry eyes and dry mouth. Myrbetriq contraindicated with Flecainide due to risk for QT prolongation. Patient taking flecainide for heart arrhythmia. Patient would like to try Gemtesa. * Telephone Encounter - Merari Ervin RN - 02/15/2023 1:03 PM EDT Gemtesa prior auth was denied. Provider aware of alternatives. * Telephone Encounter - Abena Lindseywhit - 02/08/2023 3:17 PM EDT Women's Medicine Pre-Cert Request Medication/Disease State Information: Medication: Gemtesa 75MG Oral/Inhaler/Self-administered injection Medication- [place] [phone] Diagnosis (including ICD-10): N39.41 Urge incontinence, R39.15 [...] Office Visit Family Medicine Chanelle Newman PA-C [address] [place] [address] [place] [address] 03/02/2023 Office Visit Cardiology Adrian Savage DO [address] [place] [address] 03/15/2023 Office Visit Dermatology Anya Pratt PA-C [address] [place] [address] [place] [address] 03/22/2023 Procedure Only Endoscopy Gasper Kim DO [address] [place] [address] 04/07/2023 Nurse Only Rheumatology Aneesh, Nurse Shabana Mo [address] [place] [address] [place] [phone] 04/21/2023 Office Visit Family Medicine Tameka Hooper MD [address] [place] [address] [place] [address] 06/19/2023 Office Visit Nephrology LangeNicole williamson MD [address] [place] [address] 08/14/2023 Nurse Only Ancillary Shelby, Nurse Annual [facility] [address] [place] [address] [place] [address] 09/01/2023 Office Visit Sleep Disorders Lynn Busby, DO [address] [place] [address] 10/23/2023 Office Visit Rheumatology Daniel Tapia MD [address] [place] [address] Scheduled Procedures Name Priority Associated Diagnoses Date/Ti [...] Additional history exists CKD PHOS USE SMARTSET 69142 12/28/202312/02, 04/26/2022, 11/23/2021, Additional history exists O2 ASSESSMENT COMPLETED IN PAST YEAR FOR COPD 02/14/2024 02/13/2023 CKD HGB USE SMARTSET 58875 02/15/202402/14, 02/14/2023, 08/12/2022, Additional history exists DXA Scan 08/01/2024 08/01/2022, 10/2020, 11/21/2013 COLONOSCOPY-EVERY 5 YRS AGES 18-100 02/23/2027 02/23/2022, 08/01/2019, 08/01/2019 DTaP,Tdap,and Td Vaccines (2 - Td or Tdap) 08/07/2030 08/07/2020 (Not indicated), 09/01/1998 Pneumococcal Vaccine: 65+ Years Completed 05/16/2016, 12/01/2014, 12/01/2013, Additional history exists VITAMIN D LEVEL ONCE IN A LIFETIME-USE SMARTSET# 61103 Completed 12/27/2022, 08/12/2022, 03/15/2022, Additional history exists [...] urination documented in this encounter Care Teams Global Commodity Manager Relationship Specialty Start Date End Date Tameka Hooper MD [address] [place] [address] [place] [address] PCP - General Family Medicine 05/29/19 documented as of this encounter
--- OUTSIDE RECORDS SUMMARY | 2023-07-25 21:02 | External Medical Summary ---
Author Name Unknown Address Unknown Organization K01:LABORATORY [facility] [place] - [address] [facility] [address] Laboratory Report Ordering Provider Test Date Status CARYN AGUERO 02/14/2023 12:49:26 Final Observation Date Value Abnormality Reference (Units) Status Color of Urine by Auto 02/14/2023 12:49:26 Light Yellow Light Yellow, Yellow, Dark Yellow Final Clarity, Urine 02/14/2023 12:49:26 Cloudy Abnormal Clear Final Glucose [Mass/volume] in Urine by Automated test strip 02/14/2023 12:49:26 Negative Negative (mg/dL) Final Bilirubin.total [Presence] in Urine by Automated test strip 02/14/2023 12:49:26 Negative Negative Final Ketones [Mass/volume] in Urine by Automated test strip 02/14/2023 12:49:26 Negative Negative (mg/dL) Final Specific gravity, Urine 02/14/2023 12:49:26 1.011 1.003-1.030 Final Hemoglobin [Presence] in Urine by Automated test strip 02/14/2023 12:49:26 Small Abnormal Negative Final pH, Urine 02/14/2023 12:49:26 8.0 Above high normal 5.0-7.5 (Units) Final Protein [Mass/volume] in Urine by Automated test strip 02/14/2023 12:49:26 30 Abnormal Negative (mg/dL) Final Urobilinogen [Mass/volume] in Urine by Automated test strip 02/14/2023 12:49:26 0.2 0.2, 1.0 (mg/dL) Final Nitrite [Presence] in Urine by Automated test strip 02/14/2023 12:49:26 Negative Negative Final Leukocyte esterase [Presence] in Urine by Automated test strip 02/14/2023 12:49:26 Large Abnormal Negative Final RBC, Urine 02/14/2023 12:49:26 3-5 Abnormal 0-2 (/HPF) Final WBC, Urine 02/14/2023 12:49:26 50+ Abnormal 0-2 (/HPF) Final Bacteria [#/area] in Urine sediment by Microscopy high power field 02/14/2023 12:49:26 26-50 Abnormal 0-25 (/HPF) Final Performing Location LABORATORY [facility] [place] - [facility] [address] [facility] [address]
--- OUTSIDE RECORDS SUMMARY | 2023-07-25 21:02 | External Medical Summary ---
Author Name Unknown Address Unknown Organization K01:LABORATORY [facility] [place] - [facility] [place] [address] [facility] [address] [facility] [address] Laboratory Report Ordering Provider Test Date Status CARYN AGUERO 02/14/2023 12:49:26 Final Observation Date Value Abnormality Reference (Units ) Status BUN 02/14/2023 12:49:26 17 6-20 (mg/dL) Final Creatinine 02/14/2023 12:49:26 1.6 Above high normal 0.5-1.0 (mg/dL) Final Glomerular filtration rate/1.73 sq M.predicted [Volume Rate/Area] in Serum, Plasma or Blood by Creatinine-based formula (CKD-EPI) 02/14/2023 12:49:26 33 Below low normal >=60 (mL/min) Final eGFR is calculated based on the CKD-EPI 2020 equation SODIUM 02/14/2023 12:49:26 140 135-146 (m mol/L) Final Potassium 02/14/2023 12:49:26 4.9 3.5-5.1 (m mol/L) Final Cl 02/14/2023 12:49:26 104 98-107 (mm ol/L) Final CO2 02/14/2023 12:49:26 26 22-32 (mmo l/L) Final Anion gap 02/14/2023 12:49:26 10 7-15 (mmol /L) Final Glucose 02/14/2023 12:49:26 127 Above high normal 70 -120 (mg/dL) Final Calcium 02/14/2023 12:49:26 8.7 8.4-10.2 ( mg/dL) Final Performing Location LABORATORY [facility] - [address] [place] [address]
--- OUTSIDE RECORDS SUMMARY | 2023-07-25 21:02 | External Medical Summary | Summary of Care ---
Author Name Unknown Organization [facility] Address [address] [place] [address] Phone [phone] Care Team Providers Care Display Coordinator Name Role Phone Tameka Hooper MD Primary Care Prov ider Reason for Visit * Reason Comments Acute Dizziness/lightheade dness X 1-2 weeks Encounter Details Date Type Department Care Team Description 02/13/2023 Office Visit Family Practice [facility] [address] [place] [address] Maggi Lara CRNP [address] [place] [address] Urinary frequency*; Dizziness Allergies Active Allergy Reactions Severity Noted Date Comments Amoxicillin Rash 02/07/2020 Bactrim Rash 12/15/2011 Ciprofloxacin Rash 12/15/2011 Diltiazem Rash 05/29/2019 Piroxicam Rash 12/15/2011 Cephalexin Rash 12/15/2011 Meloxicam Rash 05/29/2019 Other reaction(s): Other Cilostazol Rash,Unknown 12/15/2011 documented as of this encounter (statuses as of 02/20/2023) Medications Medication Sig Dispensed Refills Start Date End Date Status [place]-3 Fatty Acids (FISH OIL) 500 MG Capsule [...] Wheezing. 18 g 5 12/07/2022 Active Nystatin 325397 UNIT/GM External CreamIndications: Yeast dermatitis Apply topically [...] Sign Reading Time Taken Comments Blood Pressure 116/60 02/13/2023 2:25 PM EDT Pulse 78 02/13/2023 2:25 PM EDT Temperature 37.3 C (99.2 F) 02/13/2023 2:25 PM ED T Respiratory Rate - - Oxygen Saturation 93% 02/13/2023 2:25 PM EDT Inhaled Oxygen Concentration - - Weight - - Height - - Body Mass Index - - documented in this encounter Progress Notes * JULIO Zambrano - 02/13/2023 2:47 PM EDT Images from the original note were not included. History of Present Illness Eliazar Beaulieu is a 82 year old female that presents for Acute (Dizziness/lightheadedness X 1-2 weeks ) HPI Here with dizziness x 2 weeks. This is an unusual amount of dizziness for her. She is using her home oxygen though not always at night. She is taking meclizine scheduled three times per day for vertigo though it is unclear that she's having true vertigo. Denies fever, chills, n/v/d. Denies LE edemaor chest pain or SOB. She is having some slight nasal congestion. She is eating and drinking ok. Com plains of some urinary frequency. No pain with urination. Denies bleeding or rashes. Outpatient Medications Marked as Taking for the 02/13/23 encounter (Office Visit) with JULIO Zambrano Medication Sig Gemtesa 75 MG Oral Tablet (Vibegron) Take 1 Tablet by mouth in the morning. Estradiol 0.1 MG/GM Vaginal Cream (Estrace) Administer 2 g into the vagina in the morning. as directed.. Meclizine HCl 12.5 MG Oral Tablet (Antivert) TAKE 1 TABLET BY MOUTH THREE TIMES A DAY FOR DIZZINESS Mesalamine 1.2 GM Oral Tablet Delayed Release (Lialda) TAKE BY MOUTH 3 TABLETS IN THE MORNING. Nystatin 541977 UNIT/GM External Cream Apply topically to affected area 2 times a day. To affacted area for two weeks. Ipratropium-Albuterol 0.5-2.5 (3) MG/3ML Inhalation Solution (Duoneb) INHALE 1 VIAL VIA NEBULIZER EVERY 6 HOURS NEEDED FOR WHEEZING ProAir HFA 108 (90 Base) MCG/ACT Inhalation Aerosol Solution Inhale 2 Puffs by mouth as needed for Cough, Shortness of Breath or Wheezing. Ferrous Sulfate 325 (65 Fe) MG Oral Tablet (Feosol) TAKE 1 TABLET BY MOUTH EVERY DAY WITH BREAKFAST Verapamil HCl ER 240 MG Oral Capsule Extended Release 24 Hour TAKE 1 CAPSULE BY MOUTH EVERY DAY Lisinopril 5 MG Oral Tablet (Prinivil) TAKE 1 TABLET BY MOUTH EVERY DAY IN THE MORNING Flecainide Acetate 50 MG Oral Tablet (Tambocor) TAKE 1 TABLET BY MOUTH TWICE A DAY Escitalopram Oxalate 10 MG Oral Tablet (Lexapro) TAKE 1 TABLET BY MOUTH EVERY DAY Xarelto 15 MG Oral Tablet (Rivaroxaban) TAKE 1 TABLET BY MOUTH EVERY DAY Compressor Nebulizer Inhale via nebulizer . Use as directed. Triamcinolone Acetonide 0.5 % External Cream APPLY TO AFFECTED AREA TWICE A DAY Acetaminophen 325 MG Oral Tablet Take 1 Tablet by mouth every 6 hours as needed for Pain, Mild. Pt takes 1/2 tab daily CPAP every night at bedtime. Prolia 60 MG/ML Subcutaneous Solution Prefilled Syringe Inject 60 mg under the skin every 6 months. Calcium 600 + D 600-200 MG-UNIT Oral Tablet (Calcium Carb-Cholecalciferol) Take 1 Tab by mouth daily. oxygen IN GAS Use 3 L/min(Oxygen) as directed. Use with activity and sleep and at rest if 02 sat <92% Restasis 0.05 % Ophthalmic Emulsion INSTILL 1 DROP INTO EACH EYE TWICE DAILY Vitamin C 500 MG Oral Tablet Chewable Take 1 Tablet by mouth in the morning. ANORO ELLIPTA 62.5-25 MCG/INH AEPB 1 puff daily guaiFENesin ER 600 MG Oral Tablet Extended Release 12 Hour Take 1 Tablet by mouth in the morning and 1 Tablet before bedtime. [place]-3 Fatty Acids (FISH OIL) 500 MG Capsule Take by mouth. PRESERVISION AREDS 2 PO CAPS 1 tab daily Physical Exam Vitals: 02/13/23 1425 Temp: 37.3 C (99.2 F) Pulse: 78 SpO2: 93% BP: 116/60 Physical Exam Vitals reviewed. Constitutional: General: She is not in acute distress. Appearance: She is not ill-appearing. Cardiovascular: Rate and Rhythm: Normal rate and regular rhythm. Heart sounds: Normal heart sounds. Pulmonary: Effort: Pulmonary effort is normal. Breath sounds: Normal breath sounds. Abdominal: General: There is no distension. Palpations: Abdomen is soft. Tenderness: There is no abdominal tenderness. Musculoskeletal: Right lower leg: No edema. Left lower leg: No edema. Skin: General: Skin is warm and dry. Capillary Refill: Capillary refill takes less than 2 seconds. Coloration: Skin is not pale. Findings: No bruising or rash. Neurological: Mental Status: She is alert and oriented to person, place, and time. Mental status is at baseline. Psychiatric: Behavior: Behavior normal. Assessment and Plan Urinary frequency - URINALYSIS WITH MICROSCOPIC EXAM; Future - CULTURE, URINE, QUANTITATIVE Dizziness -- discussed need for ER with any worsening symptoms - BASIC METABOLIC PANEL; Future - CBC WITH WBC DIFFERENTIAL; Future Wrap-Up Follow-up: Return in about 2 weeks (around 02/27/2023). | Check-out note: With PCP if possible Labs today Time: I spent a total of 20-29 minutes (exact time 20 mins) on the date of service in preparation, delivery, and documentation of the care provided to Eliazar Beaulieu excluding any time spent in the performanceof separately billed services. documented in this encounter Nursing Notes * Caryn Betancourt LPN - 02/13/2023 2:21 PM EDT The patient has been properly identified by confirmation of name and date of . Chief Complaint Patient presents with Acute Dizziness/lightheadedness X 1-2 weeks No falls, denies chest pain or SOB but is on O2 (3 L). Pt on meclizine for the dizziness. Pt is dizzy on the medication, a lot of dry mouth, and urinary urgency. Pt having some nasal congestion. documented in this encounter Plan of Treatment Upcoming Encounters Date Type Specialty Care Team Description 02/28/2023 Office Visit Family Medicine Chanelle Newman PA-C [address] [place] [address] [place] [address] 03/02/2023 Office Visit Cardiology Adrian Savage, DO [address] [place], [place] [address] 03/15/2023 Office Visit Dermatology Anya Pratt PA-C [address] [place] [address] [place] [address] 03/22/2023 Procedure Only Endoscopy Gasper Kim, DO [address] [place] [address] 04/07/2023 Nurse Only Rheumatology Aneesh, Rheum [address] [place] [phone] 04/21/2023 Office Visit Family Medicine Tameka Hooper MD [address] [place] [address] [place] [address] 06/19/2023 Office Visit Nephrology Nicole Lange MD [address] [place] [address] 08/14/2023 Nurse Only Ancillary Nurse Shelby [address] [place] [address] 09/01/2023 Office Visit Sleep Disorders Lynn Busby, DO [address] [place] [address] 10/23/2023 Office Visit Rheumatology Daniel Tapia MD [address] [place] [address], [place] [address] Scheduled Procedures Name Priority Associated Diagnoses Date/Ti me COLONOSCOPY FLEXIBLE PROXIMAL DIAGNOSTIC Recall History of colon polyps Health Maintenance Due Date Last Done Comments DISCUSS TOBACCO CESSATION (REFER TO SMARTSET #0626) 1940 COVID-19 Vaccine (4 - Moderna series) 07/27/2021 06/01/2021, 10/20/2020, 09/15/2020 Influenza Vaccine (FLU shot) (#1) 2023 Depression Screening, Annual for Pts 12 and Over 08/11/2023 08/11/2022 Albumin/Creatinine Ratio 08/15/2023 08/15/2022, 01/31 GFR 08/17/2023 02/14/2023, 12/02, 08/12/2022, Additional history exists CKD PHOS USE SMARTSET 84624 12/28/202312/02, 04/26/2022, 11/23/2021, Additional history exists O2 ASSESSMENT COMPLETED IN PAST YEAR FOR COPD 02/14/2024 02/13/2023 CKD HGB USE SMARTSET 73418 02/15/202402/14, 02/14/2023, 08/12/2022, Additional history exists DXA Scan 08/01/2024 08/01/2022, 10/2020, 11/21/2013 COLONOSCOPY-EVERY 5 YRS AGES 18-100 02/23/2027 02/23/2022, 08/01/2019, 08/01/2019 DTaP,Tdap,and Td Vaccines (2 - Td or Tdap) 08/07/2030 08/07/2020 (Not indicated), 09/01/1998 Pneumococcal Vaccine: 65+ Years Completed 05/16/2016, 12/01/2014, 12/01/2013, Additional history exists VITAMIN D LEVEL ONCE IN A LIFETIME-USE SMARTSET# 19348 Completed 12/27/2022, 08/12/2022, 03/15/2022, Additional history exists [...] Procedure Name Priority Date/Time Associated Diagnosis Comments CULTURE, URINE, QUANTITATIVE Routine 02/14/2023 12:49 PM EDT Urinary frequency documented in this encounter Results * (ABNORMAL) BASIC METABOLIC PANEL (02/14/2023 12:49 PM EDT) BUN 17 6 - 20 mg/dL 02/15/2023 1:41 AM EDT [facility] Creatinine 1.6(H) 0.5 - 1.0 mg/dL 02/15/2023 1:41 AM EDT [facility] Estimated Glomerular Filtration Rate 33(L) >=60 mL/min 02/15/2023 1:41 AM EDT [facility] Comment:eGFR is calculated b ased on the CKD-EPI 2020 equation Sodium 140 135 - 146 mmol/L 02/15/2023 1:41 AM EDT [facility] Potassium 4.9 3.5 - 5.1 mmol/L 02/15/2023 1:41 AM EDT [facility] Chloride 104 98 - 107 mmol/L 02/15/2023 1:41 AM EDT [facility] CO2 26 22 - 32 mmol/L 02/15/2023 1:41 AM EDT [facility] Anion Gap 10 7 - 15 mmol/L 02/15/2023 1:41 AM EDT [facility] Glucose 127(H) 70 - 120 mg/dL 02/15/2023 1:41 AM EDT [facility] Calcium 8.7 8.4 - 10.2 mg/dL 02/15/2023 1:41 AM EDT [facility] Blood Venous blood specimen / Unknown Venipuncture / Unknown 02/14/2023 12:49 PM EDT 02/14/2023 12:49 PM EDT Maggi KIM LAB BLOOD ORDERABL ES [facility] [address] [place] [address] * CULTURE, URINE, QUANTITATIVE (02/14/2023 12:49 PM EDT) Culture Growth No significant growth 02/15/2023 3:57 PM EDT [facility] Urine Urine specimen obtained by clean catch procedure / Unknown Non-blood Collection / Unknown 02/14/2023 12:49 PM EDT 02/14/2023 12:49 PM EDT Maggi Lara JULIO LAB MICRO - GENERA L ORDERABLES Performing Organization Address City/State/[facility] Co de Phone Number [facility] [address] [place] [address] * (ABNORMAL) URINALYSIS WITH MICROSCOPIC EXAM (02/14/2023 12:49 PM EDT) Color, Urine Light Yellow Light Yellow, Yellow, Dark Yellow 02/15/2023 3:09 AM EDT [facility] Clarity, Urine Cloudy(A) Clear 02/15/2023 3:09 AM EDT [facility] Glucose, Urine Negative Negative mg/dL 02/15/2023 3:09 AM EDT [facility] Bilirubin, Urine Negative Negative 02/15/2023 3:09 AM EDT LABORATORY C Ketone, Urine Negative Negative mg/dL 02/15/2023 3:09 AM EDT [facility] Specific [place], Urine 1.011 1.003 - 1.030 02/15/2023 3:09 AM EDT [facility] Blood, Urine Small(A) Negative 02/15/2023 3:09 AM EDT [facility] pH, Urine 8.0(H) 5.0 - 7.5 Units 02/15/2023 3:09 AM EDT [facility] Protein, Urine 30(A) Negative mg/dL 02/15/2023 3:09 AM EDT [facility] Urobilinogen, Urine 0.2 0.2, 1.0 mg/dL 02/15/2023 3:09 AM EDT [facility] Nitrite, Urine Negative Negative 02/15/2023 3:09 AM EDT [facility] Esterase, Urine Large(A) Negative 02/15/2023 3:09 AM EDT [facility] RBC, Urine 3-5(A) 0 - 2 /HPF 02/15/2023 3:09 AM EDT [facility] WBC, Urine 50+(A) 0 - 2 /HPF 02/15/2023 3:09 AM EDT [facility] Bacteria, Urine 26-50(A) 0 - 25 /HPF 02/15/2023 3:09 AM EDT [facility] Urine Urine specimen obtained by clean catch procedure / Unknown Non-blood Collection / Unknown 02/14/2023 12:49 PM EDT 02/14/2023 12:49 PM EDT Maggi KIM LAB URINE ORDERABL ES [facility] [address] [place] [address] documented in this encounter Visit Diagnoses Diagnosis Urinary frequency- Primary Dizziness Dizziness and giddiness documented in this encounter Care Teams Display Coordinator Relationship Specialty Start Date End Date Tameka Hooper MD [address] [place] [address] [place] [address] PCP - General Family Medicine 05/29/19 documented as of this encounter"
--- OUTSIDE RECORDS SUMMARY | 2023-07-25 21:02 | External Medical Summary | Summary of Care ---
Author Name Unknown Organization [facility] [address] [place] [address] Phone [phone] Care Team Providers Care Mud Jack Nozzleman Name Role Phone Tameka Hooper MD Primary Care Prov ider Encounter Details Date Type Department Care Team Description 02/20/2023 Telephone Urogynecology [facility] [address], [place] [id number] [place] Nurse Urogyn [address] [place] [address] Allergies Active Allergy Reactions Severity Noted Date Comments Amoxicillin Rash 02/07/2020 Bactrim Rash 12/15/2011 Ciprofloxacin Rash 12/15/2011 Diltiazem Rash 05/29/2019 Piroxicam Rash 12/15/2011 Cephalexin Rash 12/15/2011 Meloxicam Rash 05/29/2019 Other reaction(s): Other Cilostazol Rash,Unknown 12/15/2011 documented as of this encounter (statuses as of 02/20/2023) Medications Medication Sig Dispensed Refills Start Date End Date Status [place]-3 Fatty Acids (FISH OIL) 500 MG Capsule [...] Wheezing. 18 g 5 12/07/2022 Active Nystatin 390868 UNIT/GM External CreamIndications:Ye ast dermatitis Apply topically [...] encounter Miscellaneous Notes * Telephone Encounter - Merair Ervin RN - 02/20/2023 2:31 PM EDT Returned pt's call but was not able to speak to her. Message left with return phone number for her to call back. documented in this encounter Plan of Treatment Upcoming Encounters Date Type Specialty Care Team Description 02/28/2023 Office Visit Family Medicine Chanelle Newman PA-C [address] [place] [address] [place] [address] 03/02/2023 Office Visit Cardiology Adrian Savage, DO [address] [facility] [place] [address] 03/15/2023 Office Visit Dermatology Anya Pratt PA-C [address] [place] [address] [place] [address] 03/22/2023 Procedure Only Endoscopy Gasper Kim, DO [address] [facility] [place] [address] 04/07/2023 Nurse Only Rheumatology Aneesh, Nurse [address] [place] [phone] 04/21/2023 Office Visit Family Medicine Tameka oHoper MD [address] [place] [address] [place] [address] 06/19/2023 Office Visit Nephrology Nicole Lange MD [address] [place] [address], [place] [address] 08/14/2023 Nurse Only Ancillary Shelby, Nurse [address] [place] [address] 09/01/2023 Office Visit Sleep Disorders Lynn Busby, DO [address] [facility] [place] [address] 10/23/2023 Office Visit Rheumatology Daniel Tapia MD [address] [facility] [place] [address] Scheduled Procedures Name Priority Associated Diagnoses Date/Ti [...] Additional history exists CKD PHOS USE SMARTSET 87596 12/28/202312/02, 04/26/2022, 11/23/2021, Additional history exists O2 ASSESSMENT COMPLETED IN PAST YEAR FOR COPD 02/14/2024 02/13/2023 CKD HGB USE SMARTSET 90085 02/15/202402/14, 02/14/2023, 08/12/2022, Additional history exists DXA Scan 08/01/2024 08/01/2022, 10/2020, 11/21/2013 COLONOSCOPY-EVERY 5 YRS AGES 18-100 02/23/2027 02/23/2022, 08/01/2019, 08/01/2019 DTaP,Tdap,and Td Vaccines (2 - Td or Tdap) 08/07/2030 08/07/2020 (Not indicated), 09/01/1998 Pneumococcal Vaccine: 65+ Years Completed 05/16/2016, 12/01/2014, 12/01/2013, Additional history exists VITAMIN D LEVEL ONCE IN A LIFETIME-USE SMARTSET# 78567 Completed 12/27/2022, 08/12/2022, 03/15/2022, Additional history exists [...] filedocumented as of this encounter Care Teams Mud Jack Nozzleman Relationship Specialty Start Date End Date Tameka Hooper MD [address] [place] [address] [place] [address] PCP - General Family Medicine 05/29/19 documented as of this encounter
--- OUTSIDE RECORDS SUMMARY | 2023-07-25 21:02 | External Medical Summary | Summary of Care ---
Author Name Unknown Organization [facility] Address [address] [facility] [address] Phone [phone] Care Team Providers Care Film Maker Name Role Phone Tameka Hooper MD Primary Care Prov ider Reason for Visit * Reason Onset Date Comments Precert Denied 02/08/2023 Gemtesa 75MG Encounter Details Date Type Department Care Team Description 02/08/2023 Telephone Urogynecology [facility] [address] [place] [address] Bel Villa PA-C [address] [place] [address] Precert Denied (Gemtesa 75MG) Allergies Active Allergy Reactions Severity Noted Date Comments Amoxicillin Rash 02/07/2020 Bactrim Rash 12/15/2011 Ciprofloxacin Rash 12/15/2011 Diltiazem Rash 05/29/2019 Piroxicam Rash 12/15/2011 Cephalexin Rash 12/15/2011 Meloxicam Rash 05/29/2019 Other reaction(s): Other Cilostazol Rash,Unknown 12/15/2011 documented as of this encounter (statuses as of 02/15/2023) Medications Medication Sig Dispensed Refills Start Date End Date Status [place]-3 Fatty Acids (FISH OIL) 500 MG Capsule [...] Wheezing. 18 g 5 12/07/2022 Active Nystatin 107640 UNIT/GM External CreamIndications: Yeast dermatitis Apply topically [...] and risk for memory issues associated with mcfp use. Patient states she has dry eyes and dry mouth. Myrbetriq contraindicated with Flecainide due to risk for QT prolongation. Patient taking flecainide for heart arrhythmia. Patient would like to try Gemtesa. * Telephone Encounter - Merari Ervin RN - 02/15/2023 1:03 PM EDT Gemtesa prior auth was denied. Provider aware of alternatives. * Telephone Encounter - Aebna Sen - 02/08/2023 3:17 PM EDT Women's Medicine Pre-Cert Request Medication/Disease State Information: Medication: Gemtesa 75MG Oral/Inhaler/Self-administered injection Medication- [place] [id number] Diagnosis (including ICD-10): N39.41 Urge incontinence, R39.15 [...] Urology Bel Villa PA-C [address] [place] [address] Nurse John Reardon [address] [place] [address] 02/28/2023 Office Visit Family Medicine Chanelle Newman PA-C [address] [place] [address] [place] [address] 03/02/2023 Office Visit Cardiology Adrian Savage, DO [address] [place] [address] 03/15/2023 Office Visit Dermatology Anya Pratt PA-C [address] [place] [address] [place] [address] 03/22/2023 Procedure Only Endoscopy Gasper Kim, DO [address] [place] [address] 04/07/2023 Nurse Only Rheumatology Aneesh, [address] [place] [phone] 04/21/2023 Office Visit Family Medicine Tameka Hooper MD [address] [place] [address] [place] [address] 06/19/2023 Office Visit Nephrology Nicole Lange MD [address] [place] [address] 08/14/2023 Nurse Only Ancillary Nurse Shelby [address] [place] [address] 09/01/2023 Office Visit Sleep Disorders Lynn Busby, DO [address] [place] [address] 10/23/2023 Office Visit Rheumatology [facility]ia [facility] [address] [facility] [address] Scheduled Procedures Name Priority Associated Diagnoses Date/Ti [...] Additional history exists CKD PHOS USE SMARTSET 85274 12/28/202312/02, 04/26/2022, 11/23/2021, Additional history exists O2 ASSESSMENT COMPLETED IN PAST YEAR FOR COPD 02/14/2024 02/13/2023 CKD HGB USE SMARTSET 42997 02/15/202402/14, 02/14/2023, 08/12/2022, Additional history exists DXA Scan 08/01/2024 08/01/2022, 10/2020, 11/21/2013 COLONOSCOPY-EVERY 5 YRS AGES 18-100 02/23/2027 02/23/2022, 08/01/2019, 08/01/2019 DTaP,Tdap,and Td Vaccines (2 - Td or Tdap) 08/07/2030 08/07/2020 (Not indicated), 09/01/1998 Pneumococcal Vaccine: 65+ Years Completed 05/16/2016, 12/01/2014, 12/01/2013, Additional history exists VITAMIN D LEVEL ONCE IN A LIFETIME-USE SMARTSET# 50634 Completed 12/27/2022, 08/12/2022, 03/15/2022, Additional history exists [...] filedocumented as of this encounter Care Teams Film Maker Relationship Specialty Start Date End Date Tameka Hooper MD [address] [place] [address] [place] [address] PCP - General Family Medicine 05/29/19 documented as of this encounter
--- OUTSIDE RECORDS SUMMARY | 2023-07-25 21:02 | External Medical Summary ---
Author Name Unknown Address Unknown Organization K01:[facility] - [address] [facility] [address] Laboratory Report Ordering Provider Test Date Status CARYN AGUERO 02/14/2023 12:49:26 Final Observation Date Value Abnormality Reference (Units ) Status SYNC LEUKOCYTES IN BLOOD BY AUTOMATED COUNT 02/14/2023 12:49:26 9.65 4.00-10.80 (K/uL) Final Segs 02/14/2023 12:49:26 66.2 40.0-75.0 (%) Final Lymphs % 02/14/2023 12:49:26 19.7 18.0-42.0 (%) Final Monos 02/14/2023 12:49:26 9.2 1.0-11.0 (%) Final Eosinophils 02/14/2023 12:49:26 2.4 0.0-6.0 (%) Final Basos 02/14/2023 12:49:26 0.5 0.0-2.0 (%) Final Immature Granulocyte, Percent 02/14/2023 12:49:26 2.0 0.0-2.0 (%) Final Absolute Segs 02/14/2023 12:49:26 6.39 1.80-7.70 (K/uL) Final Lymphs, absolute 02/14/2023 12:49:26 1.90 1.00-4.80 (K/ul) Final Monos, Abs 02/14/2023 12:49:26 0.89 0.00-1.10 (K/uL) Final Eos, Abs 02/14/2023 12:49:26 0.23 0.00-0.70 (K/uL) Final Basos, Abs 02/14/2023 12:49:26 0.05 0.00-0.20 (K/uL) Final Immature Granulocytes, Number 02/14/2023 12:49:26 0.19 0.00-0.20 (K/uL) Final Performing Location [facility] - [facility] [place] [address]
--- OUTSIDE RECORDS SUMMARY | 2023-07-25 21:02 | External Medical Summary | Summary of Care ---
Author Name Unknown Organization [facility] Address [address] [facility] [address] Phone [phone] Care Team Providers Care Packing Floor Worker Name Role Phone Tameka Hooper MD Primary Care Prov ider Reason for Visit * Reason Onset Date Comments Precert Denied 02/08/2023 Gemtesa 75MG Encounter Details Date Type Department Care Team Description 02/08/2023 Telephone Urogynecology [facility] [address] [place] [address] Bel Villa PA-C [address] [place] [address] Precert Denied (Gemtesa 75MG) Allergies Active Allergy Reactions Severity Noted Date Comments Amoxicillin Rash 02/07/2020 Bactrim Rash 12/15/2011 Ciprofloxacin Rash 12/15/2011 Diltiazem Rash 05/29/2019 Piroxicam Rash 12/15/2011 Cephalexin Rash 12/15/2011 Meloxicam Rash 05/29/2019 Other reaction(s): Other Cilostazol Rash,Unknown 12/15/2011 documented as of this encounter (statuses as of 02/15/2023) Medications Medication Sig Dispensed Refills Start Date End Date Status [place]-3 Fatty Acids (FISH OIL) 500 MG Capsule [...] Wheezing. 18 g 5 12/07/2022 Active Nystatin 078536 UNIT/GM External CreamIndications: Yeast dermatitis Apply topically [...] and risk for memory issues associated with detention use. Patient states she has dry eyes [...] injection Medication- [place] [id number] Diagnosis (including ICD-10): N39.41 Urge incontinence, R39.15 [...] Urology Bel Villa PA-C [address] [place] [address] Nurse John Reardon [address] [place] [address] 02/28/2023 Office Visit Family Medicine Chanelle Newman PA-C [address] [place] [address] [place] [address] 03/02/2023 Office Visit Cardiology Adrian Savage, DO [address] [place] [address] 03/15/2023 Office Visit Dermatology Anya Pratt PA-C [address] [place] [address] [place] [address] 03/22/2023 Procedure Only Endoscopy Gasper Kim, DO [address] [place] [address] 04/07/2023 Nurse Only Rheumatology Aneesh, [address] [place] [phone] 04/21/2023 Office Visit Family Medicine Tameka Hooper MD [address] [place] [address] [place] [address] 06/19/2023 Office Visit Nephrology Nicole Lange MD [address] [place] [address] 08/14/2023 Nurse Only Ancillary Nurse Shelby [address] [place] [address] 09/01/2023 Office Visit Sleep Disorders Lynn Busby, DO [address] [place] [address] 10/23/2023 Office Visit Rheumatology Daniel Tapia MD [address] [facility] [address] Scheduled Procedures Name Priority Associated Diagnoses Date/Ti [...] Additional history exists CKD PHOS USE SMARTSET 75984 12/28/202312/02, 04/26/2022, 11/23/2021, Additional history exists O2 ASSESSMENT COMPLETED IN PAST YEAR FOR COPD 02/14/2024 02/13/2023 CKD HGB USE SMARTSET 93643 02/15/202402/14, 02/14/2023, 08/12/2022, Additional history exists DXA Scan 08/01/2024 08/01/2022, 10/2020, 11/21/2013 COLONOSCOPY-EVERY 5 YRS AGES 18-100 02/23/2027 02/23/2022, 08/01/2019, 08/01/2019 DTaP,Tdap,and Td Vaccines (2 - Td or Tdap) 08/07/2030 08/07/2020 (Not indicated), 09/01/1998 Pneumococcal Vaccine: 65+ Years Completed 05/16/2016, 12/01/2014, 12/01/2013, Additional history exists VITAMIN D LEVEL ONCE IN A LIFETIME-USE SMARTSET# 88104 Completed 12/27/2022, 08/12/2022, 03/15/2022, Additional history exists [...] filedocumented as of this encounter Care Teams Packing Floor Worker Relationship Specialty Start Date End Date Tameka Hooper MD [address] [place] [address] [place] [address] PCP - General Family Medicine 05/29/19 documented as of this encounter
--- OUTSIDE RECORDS SUMMARY | 2023-07-25 21:03 | External Medical Summary | Summary of Care ---
Author Name Unknown Organization [facility] [address] [place] [address] Phone [phone] Care Team Providers Care Data Communications Analyst Name Role Phone Tameka Hooper MD Primary Care Prov ider Reason for Visit * Reason Onset Date Comments Medication Question 02/03/2023 Encounter Details Date Type Department Care Team Description 02/03/2023 Telephone Urogynecology [facility] [address] [place] [address] [place], Nurse Urogyn [address] [place] [address] Medication Question Allergies Active Allergy Reactions Severity Noted Date Comments Amoxicillin Rash 02/07/2020 Bactrim Rash 12/15/2011 Ciprofloxacin Rash 12/15/2011 Diltiazem Rash 05/29/2019 Piroxicam Rash 12/15/2011 Cephalexin Rash 12/15/2011 Meloxicam Rash 05/29/2019 Other reaction(s): Other Cilostazol Rash,Unknown 12/15/2011 documented as of this encounter (statuses as of 02/03/2023) Medications Medication Sig Dispensed Refills Start Date End Date Status [place]-3 Fatty Acids (FISH OIL) 500 MG Capsule [...] or Wheezing. 18 g 5 12/07/2022 Active Miconazole Nitrate 2 % Vaginal Cream (Monistat 7) Apply to affected area twice a day for 7 days 45 g 1 12/06/2022 Active Additional Information Patient not taking.Reported on 12/27/2022 Nystatin 320044 UNIT/GM External CreamIndications:Ye ast dermatitis Apply topically [...] Additional Information Patient not taking.Reported on 02/03/2023 methylPREDNISolone 4 MG Oral Tablet Therapy Pack (Medrol) follow package directions 21 Tablet 0 01/06/2023 Active Additional Information Patient not taking.Reported on 02/03/2023 Myrbetriq 50 MG Oral Tablet Extended Release 24 Hour (Mirabegron ER)Indications:Urin tangela urgency,Urge incontinence,Urinar y frequency Take 1 Tablet by mouth in the morning. 30 Tablet 11 02/03/2023 Active documented as of this encounter (statuses as of 02/03/2023) Active Problems Problem Noted Date Other specified [...] as of this encounter (statuses as of 02/03/2023) Resolved Problems Problem Noted Date Resolved Date [...] as of this encounter (statuses as of 02/03/2023) Immunizations Name Administration Dates Next Due COVID-19 [...] Telephone Encounter - Merari Ervin RN - 02/03/2023 4:49 PM EDT Pt's pharmacy sent a fax to indicate that there is a contradiction. Pt takes Flecainide which increases risk of QT prologation. Provider aware. documented in this encounter Plan of Treatment Upcoming Encounters Date Type Specialty Care Team Description 02/21/2023 Office Visit Cardiology Adrian Savage, DO [address] [place] [address] 02/24/2023 Office Visit Gynecology Urology Bel Villa PA-C [address] [place], [place] [address] Nurse Alexys Urofrancisco Agustin [address] [place] [address] 03/15/2023 Office Visit Dermatology Anya Pratt PA-C [address] [place] [address] [place] [address] 03/22/2023 Procedure Only Endoscopy Gasper Kim, [address] [place] [address] 04/07/2023 Nurse Only Rheumatology Aneesh, Nurse Rheum [address] [place] [phone] 04/21/2023 Office Visit Family Medicine Tameka Hooper MD [address] [place] [address] [place] [address] 06/19/2023 Office Visit Nephrology Nicole Lange MD [address] [place] [address], [place] [address] 08/14/2023 Nurse Only Ancillary Nurse Shelby [facility] [address] [place] [address] [place] [address] 09/01/2023 Office Visit Sleep Disorders Lynn Busby, DO [address] [place] [address] 10/23/2023 Office Visit Rheumatology Daniel Tapia MD [address] [place] [address] Scheduled Procedures Name Priority Associated Diagnoses Date/Ti [...] Over 08/11/2023 08/11/2022 CKD HGB USE SMARTSET 06767 08/12/202308/12, 03/10/2022, 03/10/2022, Additional history exists Albumin/Creatinine Ratio 08/15/2023 08/15/2022, 01/31 CKD PHOS USE SMARTSET 27785 12/28/2023/12/2022, 04/26/2022, 11/23/2021, Additional history exists O2 ASSESSMENT COMPLETED IN PAST YEAR FOR COPD 12/28/2023 12/27/2022 DXA Scan 08/01/2024 08/01/2022, 10/2020, 11/21/2013 COLONOSCOPY-EVERY 5 YRS AGES 18-100 02/23/2027 02/23/2022, 08/01/2019, 08/01/2019 DTaP,Tdap,and Td Vaccines (2 - Td or Tdap) 08/07/2030 08/07/2020 (Not indicated), 09/01/1998 Pneumococcal Vaccine: 65+ Years Completed 05/16/2016, 12/01/2014, 12/01/2013, Additional history exists VITAMIN D LEVEL ONCE IN A LIFETIME-USE SMARTSET# 65674 Completed 12/27/2022, 08/12/2022, 03/15/2022, Additional history exists [...] filedocumented as of this encounter Care Teams Data Communications Analyst Relationship Specialty Start Date End Date Tameka Hooper MD [address] [place] [address] [place] [phone] PCP - General Family Medicine 05/29/19 documented as of this encounter
--- OUTSIDE RECORDS SUMMARY | 2023-07-25 21:03 | External Medical Summary | Summary of Care ---
Author Name Unknown Organization [facility] Address [address] [facility] [address] Phone [phone] Care Team Providers Care Merchandise Flow Team Member Name Role Phone Tameka Hooper MD Primary Care Prov ider Reason for Visit * Reason Onset Date Comments Med Request 02/08/2023 Prior Authorizat ion Encounter Details Date Type Department Care Team Description 02/08/2023 Telephone Urogynecology [facility] [address] [place] [address] Bel Villa PA-C [address] [place] [address] Med Request (Prior Authorization) Allergies Active Allergy Reactions Severity Noted Date Comments Amoxicillin Rash 02/07/2020 Bactrim Rash 12/15/2011 Ciprofloxacin Rash 12/15/2011 Diltiazem Rash 05/29/2019 Piroxicam Rash 12/15/2011 Cephalexin Rash 12/15/2011 Meloxicam Rash 05/29/2019 Other reaction(s): Other Cilostazol Rash,Unknown 12/15/2011 documented as of this encounter (statuses as of 02/08/2023) Medications Medication Sig Dispensed Refills Start Date End Date Status [place]-3 Fatty Acids (FISH OIL) 500 MG Capsule [...] Information Patient not taking.Reported on 12/27/2022 Nystatin 507377 UNIT/GM External CreamIndications:Ye ast dermatitis Apply topically [...] as of this encounter (statuses as of 02/08/2023) Active Problems Problem Noted Date Other specified [...] as of this encounter (statuses as of 02/08/2023) Resolved Problems Problem Noted Date Resolved Date [...] as of this encounter (statuses as of 02/08/2023) Immunizations Name Administration Dates Next Due COVID-19 [...] encounter Miscellaneous Notes * Telephone Encounter - FRANCIS Enrique - 02/08/2023 12:41 PM EDT Roz from [facility] in [place] called requesting a prior authorization for Gemtesa 75 MG Oral Tablet documented in this encounter Plan of Treatment Upcoming Encounters Date Type Specialty Care Team Description 02/21/2023 Office Visit Cardiology Adrian Savage, DO [address] [place], [place] [address] 02/24/2023 Office Visit Gynecology Urology Bel Villa PA-C [address] [place], [place] [address] Nurse Alexys Urofrancisco Agustin [address] [place] [address] 03/15/2023 Office Visit Dermatology Anya Pratt PA-C [address] [place] [address] [place] [address] 03/22/2023 Procedure Only Endoscopy Gasper Kim DO [address] [place], [place] [address] 04/07/2023 Nurse Only Rheumatology [place], Nurse Rheum [address] [place] [phone] 04/21/2023 Office Visit Family Medicine Tameka Hooper MD [address] [place] [address] [place] [address] 06/19/2023 Office Visit Nephrology Nicole Lange MD [address] [place] [address] [place], [place] [address] 08/14/2023 Nurse Only Ancillary Nurse Shelby Annual [address] [place] [address] 09/01/2023 Office Visit Sleep Disorders Lynn Busby, DO [address] [place] [address] 10/23/2023 Office Visit Rheumatology Daniel Tapia MD [address] [place] [address] Scheduled Procedures Name Priority Associated Diagnoses Date/Ti me COLONOSCOPY FLEXIBLE PROXIMAL DIAGNOSTIC Recall History of colon polyps Health Maintenance Due Date Last Done Comments DISCUSS TOBACCO CESSATION (REFER TO SMARTSET #8943) 1940 COVID-19 Vaccine (4 - Moderna series) 07/27/2021 06/01/2021, 10/20/2020, 09/15/2020 Influenza Vaccine (FLU shot) (#1) 2023 GFR 06/28/2023 12/27/2022, 08/03, 04/26/2022, Additional history exists Depression Screening, Annual for Pts 12 and Over 08/11/2023 08/11/2022 CKD HGB USE SMARTSET 70747 08/12/202308/12, 03/10/2022, 03/10/2022, Additional history exists Albumin/Creatinine Ratio 08/15/2023 08/15/2022, 01/31 CKD PHOS USE SMARTSET 66542 12/28/202312/02, 04/26/2022, 11/23/2021, Additional history exists O2 ASSESSMENT COMPLETED IN PAST YEAR FOR COPD 12/28/2023 12/27/2022 DXA Scan 08/01/2024 08/01/2022, 10/2020, 11/21/2013 COLONOSCOPY-EVERY 5 YRS AGES 18-100 02/23/2027 02/23/2022, 08/01/2019, 08/01/2019 DTaP,Tdap,and Td Vaccines (2 - Td or Tdap) 08/07/2030 08/07/2020 (Not indicated), 09/01/1998 Pneumococcal Vaccine: 65+ Years Completed 05/16/2016, 12/01/2014, 12/01/2013, Additional history exists VITAMIN D LEVEL ONCE IN A LIFETIME-USE SMARTSET# 12426 Completed 12/27/2022, 08/12/2022, 03/15/2022, Additional history exists [...] filedocumented as of this encounter Care Teams Merchandise Flow Team Member Relationship Specialty Start Date End Date Tameka Hooper MD [address] [place] [address] [place] [address] PCP - General Family Medicine 05/29/19 documented as of this encounter
--- OUTSIDE RECORDS SUMMARY | 2023-07-25 21:03 | External Medical Summary | Summary of Care ---
Author Name Unknown Organization [facility] Address [address] [facility] [address] Phone [phone] Care Team Providers Care Mixer Whipped Topping Name Role Phone Tameka Hooper MD Primary Care Prov ider Reason for Visit * Reason Onset Date Comments Med Request 02/08/2023 Prior Authorizat ion Encounter Details Date Type Department Care Team Description 02/08/2023 Telephone Urogynecology [facility] [address] [place] [address] Bel Villa PA-C [address] [place] [address] Med Request (Prior Authorization) Allergies Active Allergy Reactions Severity Noted Date Comments Amoxicillin Rash 02/07/2020 Bactrim Rash 12/15/2011 Ciprofloxacin Rash 12/15/2011 Diltiazem Rash 05/29/2019 Piroxicam Rash 12/15/2011 Cephalexin Rash 12/15/2011 Meloxicam Rash 05/29/2019 Other reaction(s): Other Cilostazol Rash,Unknown 12/15/2011 documented as of this encounter (statuses as of 02/08/2023) Medications Medication Sig Dispensed Refills Start Date End Date Status [place]-3 Fatty Acids (FISH OIL) 500 MG Capsule [...] Information Patient not taking.Reported on 12/27/2022 Nystatin [id number] UNIT/GM External CreamIndications:Ye ast dermatitis Apply topically [...] - 02/08/2023 12:41 PM EDT Roz from [facility] in [place] called requesting a prior authorization for Gemtesa 75 MG Oral Tablet documented in this encounter Plan of Treatment Upcoming Encounters Date Type Specialty Care Team Description 02/21/2023 Office Visit Cardiology Adrian Savage, DO [address] [place], [place] [address] 02/24/2023 Office Visit Gynecology Urology Bel Villa PA-C [address] [place], [place] [address] Nurse Alexys Urofrancisco Agustin [address] [place] [address] 03/15/2023 Office Visit Dermatology Anya Pratt PA-C [address] [place] [address] [place] [address] 03/22/2023 Procedure Only Endoscopy Gasper Kim DO [address] [place], [place] [address] 04/07/2023 Nurse Only Rheumatology [place], Nurse Rheum [address] [place] [phone] 04/21/2023 Office Visit Family Medicine Tameka Hooper MD [address] [place] [address] [place] [address] 06/19/2023 Office Visit Nephrology Nicole Lange MD [address] [place] [address] [place], [place] [address] 08/14/2023 Nurse Only Ancillary Nurse Shelby Annual [address] [place] [address] 09/01/2023 Office Visit Sleep Disorders Lynn Busby, DO [address] [place] [address] 10/23/2023 Office Visit Rheumatology Daniel Tapia MD [address] [place] [address] Scheduled Procedures Name Priority Associated Diagnoses Date/Ti me COLONOSCOPY FLEXIBLE PROXIMAL DIAGNOSTIC Recall History of colon polyps Health Maintenance Due Date Last Done Comments DISCUSS TOBACCO CESSATION (REFER TO SMARTSET #1930) 1942 COVID-19 Vaccine (4 - Moderna series) 07/27/2021 06/01/2021, 10/20/2020, 09/15/2020 Influenza Vaccine (FLU shot) (#1) 2023 GFR 06/28/2023 12/27/2022, 08/03, 04/26/2022, Additional history exists Depression Screening, Annual for Pts 12 and Over 08/11/2023 08/11/2022 CKD HGB USE SMARTSET 12972 08/12/202308/12, 03/10/2022, 03/10/2022, Additional history exists Albumin/Creatinine Ratio 08/15/2023 08/15/2022, 01/31 CKD PHOS USE SMARTSET 94754 12/28/202312/02, 04/26/2022, 11/23/2021, Additional history exists O2 ASSESSMENT COMPLETED IN PAST YEAR FOR COPD 12/28/2023 12/27/2022 DXA Scan 08/01/2024 08/01/2022, 10/2020, 11/21/2013 COLONOSCOPY-EVERY 5 YRS AGES 18-100 02/23/2027 02/23/2022, 08/01/2019, 08/01/2019 DTaP,Tdap,and Td Vaccines (2 - Td or Tdap) 08/07/2030 08/07/2020 (Not indicated), 09/01/1998 Pneumococcal Vaccine: 65+ Years Completed 05/16/2016, 12/01/2014, 12/01/2013, Additional history exists VITAMIN D LEVEL ONCE IN A LIFETIME-USE SMARTSET# 82125 Completed 12/27/2022, 08/12/2022, 03/15/2022, Additional history exists [...] filedocumented as of this encounter Care Teams Mixer Whipped Topping Relationship Specialty Start Date End Date Tameka Hooper MD [address] [place] [address] [place] [address] PCP - General Family Medicine 05/29/19 documented as of this encounter
--- OUTSIDE RECORDS SUMMARY | 2023-07-25 21:03 | External Medical Summary | Summary of Care ---
Author Name Unknown Organization [facility] [address] [place] [address] Phone [phone] Care Team Providers Care Nnp Name Role Phone Tameka Hooper MD Primary Care Prov ider Reason for Visit * Reason Onset Date Comments Medication Question 02/03/2023 Encounter Details Date Type Department Care Team Description 02/03/2023 Telephone Urogynecology [facility] [address] [place] [address] [place], Nurse Urogyn [address] [place] [address] Medication Question Allergies Active Allergy Reactions Severity Noted Date Comments Amoxicillin Rash 02/07/2020 Bactrim Rash 12/15/2011 Ciprofloxacin Rash 12/15/2011 Diltiazem Rash 05/29/2019 Piroxicam Rash 12/15/2011 Cephalexin Rash 12/15/2011 Meloxicam Rash 05/29/2019 Other reaction(s): Other Cilostazol Rash,Unknown 12/15/2011 documented as of this encounter (statuses as of 02/06/2023) Medications Medication Sig Dispensed Refills Start Date [...] Information Patient not taking.Reported on 12/27/2022 Nystatin [id number] UNIT/GM External CreamIndications:Ye ast dermatitis Apply topically [...] the morning. 30 Tablet 11 02/03/2023 Active Gemtesa 75 MG Oral Tablet (Vibegron)Indicatio ns:Mixed incontinence,Urinar y frequency,Urge incontinence,Urinar y urgency Take 1 Tablet by mouth in the morning. 30 Tablet 11 02/06/2023 Active documented as of this encounter (statuses as of 02/06/2023) Active Problems Problem Noted Date Other specified [...] as of this encounter (statuses as of 02/06/2023) Resolved Problems Problem Noted Date Resolved Date [...] as of this encounter (statuses as of 02/06/2023) Immunizations Name Administration Dates Next Due COVID-19 [...] Miscellaneous Notes * Addendum Note - Bel Siddiqui PA-C - 02/06/2023 10:02 AM EDTAddended by: BEL SIDDIQUI on: 02/06/2023 10:02 AM Modules accepted: Orders * Telephone Encounter - Bel Siddiqui PA-C - 02/06/2023 10:00 AM EDT Erx sent for TC to patient. Patient aware. Also reviewed urine culture results with patient. All questions answered. * Telephone Encounter - Merari Ervin RN - 02/03/2023 4:49 PM EDT Pt's pharmacy sent a fax to indicate that there is a contradiction. Pt takes Flecainide which increases risk of QT prologation. Provider aware. documented in this encounter Plan of Treatment Upcoming Encounters Date Type Specialty Care Team Description 02/21/2023 Office Visit Cardiology Adrian Savage DO [address] [place] [address] 02/24/2023 Office Visit Gynecology Urology Bel Siddiqui PA-C [address] [place] [address] Nurse John Reardon [address] [place] [address] 03/15/2023 Office Visit Dermatology Anya Pratt PA-C [address] [place] [address] [place] [address] 03/22/2023 Procedure Only Endoscopy Gasper Kim DO [address] [place] [address] 04/07/2023 Nurse Only Rheumatology [place], Nurse Rheum Mo [address] [place] [address] [place] [phone] 04/21/2023 Office Visit Family Medicine Tameka Hooper MD [address] [place] [address] [place] [phone] 06/19/2023 Office Visit Nephrology Nicole Lange MD [address] [facility], [place] [phone] 08/14/2023 Nurse Only Ancillary [place], Nurse Annual Wellness [address] [place] [address] [place] [address] 09/01/2023 Office Visit Sleep Disorders Lynn Busby DO [address] [place] [address] 10/23/2023 Office Visit Rheumatology Daniel Tapia MD [facility] [place] [address] Scheduled Procedures Name Priority Associated Diagnoses Date/Ti me COLONOSCOPY FLEXIBLE PROXIMAL DIAGNOSTIC Recall History of colon polyps Health Maintenance Due Date Last Done Comments DISCUSS TOBACCO CESSATION (REFER TO SMARTSET #3203) 1942 COVID-19 Vaccine (4 - Moderna series) 07/27/2021 06/01/2021, 10/20/2020, 09/15/2020 Influenza Vaccine (FLU shot) (#1) 2023 GFR 06/28/2023 12/27/2022, 08/03, 04/26/2022, Additional history exists Depression Screening, Annual for Pts 12 and Over 08/11/2023 08/11/2022 CKD HGB USE SMARTSET 14609 08/12/202308/12, 03/10/2022, 03/10/2022, Additional history exists Albumin/Creatinine Ratio 08/15/2023 08/15/2022, 01/31 CKD PHOS USE SMARTSET 22172 12/28/2023 0612/2022, 04/26/2022, 11/23/2021, Additional history exists O2 ASSESSMENT COMPLETED IN PAST YEAR FOR COPD 12/28/2023 12/27/2022 DXA Scan 08/01/2024 08/01/2022, 10/2020, 11/21/2013 COLONOSCOPY-EVERY 5 YRS AGES 18-100 02/23/2027 02/23/2022, 08/01/2019, 08/01/2019 DTaP,Tdap,and Td Vaccines (2 - Td or Tdap) 08/07/2030 08/07/2020 (Not indicated), 09/01/1998 Pneumococcal Vaccine: 65+ Years Completed 05/16/2016, 12/01/2014, 12/01/2013, Additional history exists VITAMIN D LEVEL ONCE IN A LIFETIME-USE SMARTSET# [id number] Completed 12/27/2022, 08/12/2022, 03/15/2022, Additional history exists [...] urination documented in this encounter Care Teams Nnp Relationship Specialty Start Date End Date Tameka Hooper MD [address] [place] [address] [place] [address] PCP - General Family Medicine 05/29/19 documented as of this encounter
--- OUTSIDE RECORDS SUMMARY | 2023-07-25 21:03 | External Medical Summary | Summary of Care ---
Author Name Unknown Organization [facility] Address [address] [facility] [address] Phone [phone] Care Team Providers Care Electrical Prospecting Observer Name Role Phone Tameka Hooper MD Primary Care Prov ider Reason for Visit * Reason Onset Date Comments Precert Denied 02/08/2023 Gemtesa 75MG Encounter Details Date Type Department Care Team Description 02/08/2023 Telephone Urogynecology [facility] [address] [place] [address] Bel Villa PA-C [address] [place] [address] Precert Denied (Gemtesa 75MG) Allergies Active Allergy Reactions Severity Noted Date Comments Amoxicillin Rash 02/07/2020 Bactrim Rash 12/15/2011 Ciprofloxacin Rash 12/15/2011 Diltiazem Rash 05/29/2019 Piroxicam Rash 12/15/2011 Cephalexin Rash 12/15/2011 Meloxicam Rash 05/29/2019 Other reaction(s): Other Cilostazol Rash,Unknown 12/15/2011 documented as of this encounter (statuses as of 02/13/2023) Medications Medication Sig Dispensed Refills Start Date End Date Status [place]-3 Fatty Acids (FISH OIL) 500 MG [...] Information Patient not taking.Reported on 12/27/2022 Nystatin 512804 UNIT/GM External CreamIndications:Ye ast dermatitis Apply topically [...] as of this encounter (statuses as of 02/13/2023) Active Problems Problem Noted Date Other specified [...] as of this encounter (statuses as of 02/13/2023) Resolved Problems Problem Noted Date Resolved Date Prediabetes 03/15/2021 12/16/2021 Overview: Per Prediabetes protocol Other specified peripheral vascular diseases 02/ 10/2020 08/12/2022 Age-related osteoporosis wit hout current pathological [...] as of this encounter (statuses as of 02/13/2023) Immunizations Name Administration Dates Next Due COVID-19 [...] encounter Miscellaneous Notes * Telephone Encounter - Abena Sen - 02/08/2023 3:17 PM EDT Women's Medicine Pre-Cert Request Medication/Disease State Information: Medication: Gemtesa 75MG Oral/Inhaler/Self-administered injection Medication- [place] [id number] Diagnosis (including ICD-10): N39.41 Urge incontinence, R39.15 Urinary urgency, R30.0 Dysuria, R35.1 Nocturia, R35.0 Urinary frequency Medication(s) Tried/Failed/Contraindicated: Myrbetric contradiction pt takes Flecainide which increases risk of QT prologation. See corresponding visit note(s) for additional supporting clinical information. Office Information: Prescriber: Bel Villa PA-C documented in this encounter Plan of Treatment Upcoming Encounters Date Type Specialty Care Team Description 02/13/2023 Office Visit Family Medicine Maggi Lara CRNP [address] [place] [address] 02/24/2023 Office Visit Gynecology Urology Bel Villa PA-C [address] [place] [address] Nurse John Reardon [address] [place] [address] 03/02/2023 Office Visit Cardiology Adrian Savage DO [address] [place] [address] 03/15/2023 Office Visit Dermatology Anya Pratt PA-C [address] [place] [address] [place] [address] 03/22/2023 Procedure Only Endoscopy Gasper Kim DO [address] [place] [address] 04/07/2023 Nurse Only Rheumatology Aneesh, Nurse Rheum Mo [address] [place] [address] [place] [phone] 04/21/2023 Office Visit Family Medicine Sergio Cai, Tameka Ang MD [address] [place] [address] [place] [address] 06/19/2023 Office Visit Nephrology Nicole Lange MD [address] [place] [address] 08/14/2023 Nurse Only Ancillary Shelby Nurse Annual [address] [place] [address] 09/01/2023 Office Visit Sleep Disorders Lynn Busby DO [address] [place] [address] 10/23/2023 Office Visit Rheumatology Daniel Tapia MD [facility] [place] [place] [address] Scheduled Procedures Name Priority Associated Diagnoses Date/Ti [...] Over 08/11/2023 08/11/2022 CKD HGB USE SMARTSET 69011 08/12/202308/12, 03/10/2022, 03/10/2022, Additional history exists Albumin/Creatinine Ratio 08/15/2023 08/15/2022, 01/31 CKD PHOS USE SMARTSET 28961 12/28/202312/02, 04/26/2022, 11/23/2021, Additional history exists O2 ASSESSMENT COMPLETED IN PAST YEAR FOR COPD 12/28/2023 12/27/2022 DXA Scan 08/01/2024 08/01/2022, 10/2020, 11/21/2013 COLONOSCOPY-EVERY 5 YRS AGES 18-100 02/23/2027 02/23/2022, 08/01/2019, 08/01/2019 DTaP,Tdap,and Td Vaccines (2 - Td or Tdap) 08/07/2030 08/07/2020 (Not indicated), 09/01/1998 Pneumococcal Vaccine: 65+ Years Completed 05/16/2016, 12/01/2014, 12/01/2013, Additional history exists VITAMIN D LEVEL ONCE IN A LIFETIME-USE SMARTSET# 96231 Completed 12/27/2022, 08/12/2022, 03/15/2022, Additional history exists [...] filedocumented as of this encounter Care Teams Electrical Prospecting Observer Relationship Specialty Start Date End Date Tameka Hooper MD [address] [place] [address] [place] [address] PCP - General Family Medicine 05/29/19 documented as of this encounter
--- OUTSIDE RECORDS SUMMARY | 2023-07-25 21:03 | External Medical Summary | Summary of Care ---
Author Name Unknown Organization [facility] Address [address] [facility] [address] Phone [phone] Care Team Providers Care Mechanical Equipment Test Engineer Name Role Phone Tameka Hooper MD Primary Care Prov ider Encounter Details Date Type Department Care Team Description 02/06/2023 Telephone Urogynecology [facility] [address] [place] [address] Bel Villa PA-C [address] [place] [address] Allergies Active Allergy Reactions Severity Noted Date Comments Amoxicillin Rash 02/07/2020 Bactrim Rash 12/15/2011 Ciprofloxacin Rash 12/15/2011 Diltiazem Rash 05/29/2019 Piroxicam Rash 12/15/2011 Cephalexin Rash 12/15/2011 Meloxicam Rash 05/29/2019 Other reaction(s): Other Cilostazol Rash,Unknown 12/15/2011 documented as of this encounter (statuses as of 02/06/2023) Medications Medication Sig Dispensed Refills Start Date End Date Status [place]-3 Fatty Acids (FISH OIL) 500 MG Capsule [...] Information Patient not taking.Reported on 12/27/2022 Nystatin [id number] UNIT/GM External CreamIndications:Y east dermatitis Apply topically [...] on 02/03/2023 Gemtesa 75 MG Oral Tablet (Vibegron)Indicati ons:Mixed incontinence,Urina ry frequency,Urge incontinence,Urina ry urgency Take 1 Tablet by mouth in the morning. 30 Tablet 11 02/06/2023 Active Myrbetriq 50 MG Oral Tablet Extended Release 24 Hour (Mirabegron ER)Indications:Uri nary urgency,Urge incontinence,Urina ry frequency Take 1 Tablet by mouth in the morning. 30 Tablet 11 02/03/2023 3 Discontinue d(Medicatio n/Dose Changed) documented as [...] Cardiology Adrian Savage, DO [address] [place], [place] [address] 02/24/2023 Office Visit Gynecology Urology Bel Villa PA-C [address] [place] [address] Nurse Alexys Urofrancisco Agustin [address] [place], [place] [address] 03/15/2023 Office Visit Dermatology Anya Pratt PA-C [address] [place] [address] [place] [address] 03/22/2023 Procedure Only Endoscopy Gasper Kim DO [address] [place], [place] [address] 04/07/2023 Nurse Only Rheumatology [place], Nurse Rheum Mo [address] [place] [address] [place] [phone] 04/21/2023 Office Visit Family Medicine Tameka Hooper MD [address] [place] [address] [place] [address] 06/19/2023 Office Visit Nephrology Nicole Lange MD [address] [place] [address], [place] [address] 08/14/2023 Nurse Only Ancillary [place], Nurse Annual Wellness [address] [place] [address] [place] [address] 09/01/2023 Office Visit Sleep Disorders Lynn Busby, [address] [place] [address] 10/23/2023 Office Visit Rheumatology Daniel Tapia MD [facility] [address] Scheduled Procedures Name Priority Associated Diagnoses Date/Ti [...] Over 08/11/2023 08/11/2022 CKD HGB USE SMARTSET 05230 08/12/202308/12, 03/10/2022, 03/10/2022, Additional history exists Albumin/Creatinine Ratio 08/15/2023 08/15/2022, 01/31 CKD PHOS USE SMARTSET 10784 12/28/202312/02, 04/26/2022, 11/23/2021, Additional history exists O2 ASSESSMENT COMPLETED IN PAST YEAR FOR COPD 12/28/2023 12/27/2022 DXA Scan 08/01/2024 08/01/2022, 10/2020, 11/21/2013 COLONOSCOPY-EVERY 5 YRS AGES 18-100 02/23/2027 02/23/2022, 08/01/2019, 08/01/2019 DTaP,Tdap,and Td Vaccines (2 - Td or Tdap) 08/07/2030 08/07/2020 (Not indicated), 09/01/1998 Pneumococcal Vaccine: 65+ Years Completed 05/16/2016, 12/01/2014, 12/01/2013, Additional history exists VITAMIN D LEVEL ONCE IN A LIFETIME-USE SMARTSET# 56323 Completed 12/27/2022, 08/12/2022, 03/15/2022, Additional history exists [...] filedocumented as of this encounter Care Teams Mechanical Equipment Test Engineer Relationship Specialty Start Date End Date Tameka Hooper MD [address] [place] [address] [place] [address] PCP - General Family Medicine 05/29/19 documented as of this encounter
--- OUTSIDE RECORDS SUMMARY | 2023-07-25 21:03 | External Medical Summary | Summary of Care ---
Author Name Unknown Organization [facility] Address [address] [facility] [address] Phone [phone] Care Team Providers Care Forestry Technical Officer Name Role Phone Tameka Hooper MD Primary Care Prov ider Reason for Visit * Reason Onset Date Comments Med Request 02/08/2023 Prior Authorizat ion Encounter Details Date Type Department Care Team Description 02/08/2023 Telephone Urogynecology [facility] [address] [place] [address] Bel Villa PA-C [address] [place] [address] Med Request (Prior Authorization) Allergies Active Allergy Reactions Severity Noted Date Comments Amoxicillin Rash 02/07/2020 Bactrim Rash 12/15/2011 Ciprofloxacin Rash 12/15/2011 Diltiazem Rash 05/29/2019 Piroxicam Rash 12/15/2011 Cephalexin Rash 12/15/2011 Meloxicam Rash 05/29/2019 Other reaction(s): Other Cilostazol Rash,Unknown 12/15/2011 documented as of this encounter (statuses as of 02/08/2023) Medications Medication Sig Dispensed Refills Start Date End Date Status [place]-3 Fatty Acids (FISH OIL) 500 MG Capsule [...] Information Patient not taking.Reported on 12/27/2022 Nystatin [id number] UNIT/GM External CreamIndications:Ye ast dermatitis Apply topically [...] Telephone Encounter - Abena Sen - 02/08/2023 3:21 PM EDT Started prior auth. Please see encounter. * Telephone Encounter - FRANCIS Enrique - 02/08/2023 12:41 PM EDT Roz from [facility] in [place] called requesting a prior authorization for Gemtesa 75 MG Oral Tablet documented in this encounter Plan of Treatment Upcoming Encounters Date Type Specialty Care Team Description 02/24/2023 Office Visit Gynecology Urology Bel Villa PA-C [address] [place] [address] Nurse Alexys Urofrancisco Agustin [address] [place] [address] 03/02/2023 Office Visit Cardiology Adrian Savage DO [address] [place] [address] 03/15/2023 Office Visit Dermatology Anya Pratt PA-C [address] [place] [address] [place] [address] 03/22/2023 Procedure Only Endoscopy Gasper Kim DO [address] [place] [address] 04/07/2023 Nurse Only Rheumatology Aneesh, Rheum Mo [address] [place] [address] [place] [phone] 04/21/2023 Office Visit Family Medicine Tameka Hooper MD [address] [facility] [place] [address] 06/19/2023 Office Visit Nephrology Nicole Lange MD [address] [place] [address] 08/14/2023 Nurse Only Ancillary [place], Nurse Annual Wellness [address] [place] [address] [place] [address] 09/01/2023 Office Visit Sleep Disorders Lynn Busby, [address] [place] [address] 10/23/2023 Office Visit Rheumatology Daniel Tapia MD [address] [facility], [place] [address] Scheduled Procedures Name Priority Associated Diagnoses Date/Ti me COLONOSCOPY FLEXIBLE PROXIMAL DIAGNOSTIC Recall History of colon polyps Health Maintenance Due Date Last Done Comments DISCUSS TOBACCO CESSATION (REFER TO SMARTSET #9448) 1940 COVID-19 Vaccine (4 - Moderna series) 07/27/2021 06/01/2021, 10/20/2020, 09/15/2020 Influenza Vaccine (FLU shot) (#1) 2023 GFR 06/28/2023 12/27/2022, 08/03, 04/26/2022, Additional history exists Depression Screening, Annual for Pts 12 and Over 08/11/2023 08/11/2022 CKD HGB USE SMARTSET 71577 08/12/202308/12, 03/10/2022, 03/10/2022, Additional history exists Albumin/Creatinine Ratio 08/15/2023 08/15/2022, 01/31 CKD PHOS USE SMARTSET 76119 12/28/2023/12/2022, 04/26/2022, 11/23/2021, Additional history exists O2 ASSESSMENT COMPLETED IN PAST YEAR FOR COPD 12/28/2023 12/27/2022 DXA Scan 08/01/2024 08/01/2022, 10/2020, 11/21/2013 COLONOSCOPY-EVERY 5 YRS AGES 18-100 02/23/2027 02/23/2022, 08/01/2019, 08/01/2019 DTaP,Tdap,and Td Vaccines (2 - Td or Tdap) 08/07/2030 08/07/2020 (Not indicated), 09/01/1998 Pneumococcal Vaccine: 65+ Years Completed 05/16/2016, 12/01/2014, 12/01/2013, Additional history exists VITAMIN D LEVEL ONCE IN A LIFETIME-USE SMARTSET# 58901 Completed 12/27/2022, 08/12/2022, 03/15/2022, Additional history exists [...] filedocumented as of this encounter Care Teams Forestry Technical Officer Relationship Specialty Start Date End Date Tameka Hooper MD [address] [place] [address] [place] [address] PCP - General Family Medicine 05/29/19 documented as of this encounter
--- OUTSIDE RECORDS SUMMARY | 2023-07-25 21:04 | External Medical Summary | Summary of Care ---
Author Name Unknown Organization [facility] Address [address] [place] [address] Phone [phone] Care Team Providers Care Customer Assistance Associate Name Role Phone Tameka Hooper MD Primary Care Prov ider Reason for Visit * Reason Comments Return Visit Encounter Details Date Type Department Care Team Description 02/03/2023 Office Visit Urogynecology Veronica Reardon [address] [place] [address] Bel Villa PA-C [address] [place] [address] Nurse John Reardon [address] [place] [id number] Mixed incontinence*; Dysuria; Urinary urgency; Urge incontinence; Urinary frequency Allergies Active Allergy Reactions Severity Noted Date Comments Amoxicillin Rash 02/07/2020 Bactrim Rash 12/15/2011 Ciprofloxacin Rash 12/15/2011 Diltiazem Rash 05/29/2019 Piroxicam Rash 12/15/2011 Cephalexin Rash 12/15/2011 Meloxicam Rash 05/29/2019 Other reaction(s): Other Cilostazol Rash,Unknown 12/15/2011 documented as of this encounter (statuses as of 02/03/2023) Medications Medication Sig Dispensed Refills Start Date End Date Status [place]-3 Fatty Acids (FISH OIL) 500 MG [...] Information Patient not taking.Reported on 12/27/2022 Nystatin 733315 UNIT/GM External CreamIndications:Ye ast dermatitis Apply topically [...] as of this encounter Progress Notes * Bel Villa PA-C - 02/03/2023 11:19 AM EDT Eliazar Beaulieu presents for a follow up visit at [facility]ologic Division. She was previously seen for N95.2 Postmenopausal atrophic vaginitis (primary encounter diagnosis) R30.0 Dysuria R35.1 Nocturia R35.0 Urinary frequency N39.41 Urge incontinence R39.15 Urinary urgency Since last seen, patient was treated for UTI. States no improvement in symptoms after completion ofantibiotics. Daytime frequency q1.5-2 hours. Has urgency daily. Leakage associated with urgency 3x daily. Has daily leakage associated with C/L/S. Nocturia 4x nightly. Denies feeling of incomplete bladder emptying. Occasional dysuria. No abnormal discharge or vaginal bleeding. Treated for UTI 12/06/22 with Fosfomycin. Symptoms persisted. Urine culture 12/28/22: >100,000 colonies/mL Proteus penneri. Treated with Cefdinir after ID consult due to allergies. Review of patient's allergies indicates: Allergen Reactions Amoxicillin Rash Bactrim Rash Ciprofloxacin Rash Diltiazem Rash Feldene [Piroxicam] Rash Keflex [Cephalexin] Rash Meloxicam Rash Other reaction(s): Other Pletal [Cilostazol] Rash and Unknown Current Outpatient Medications Medication Sig Dispense Refill [place]-3 Fatty Acids (FISH OIL) 500 MG Capsule Take by mouth. PRESERVISION AREDS 2 PO CAPS 1 tab daily ANORO ELLIPTA 62.5-25 MCG/INH AEPB 1 puff [...] skin every 6 months. 1 mL 0 CPAP every night at bedtime. Acetaminophen 325 MG Oral Tablet Take 1 Tablet by mouth every 6 hours as needed for Pain, Mild.Pt takes 1/2 tab daily Triamcinolone Acetonide 0.5 [...] EVERY DAY WITH BREAKFAST 90 Tablet 1 Verapamil HCl ER 240 MG Oral Capsule Extended Release 24 Hour TAKE 1 CAPSULE BY MOUTH EVERY DAY90 Capsule 1 Ipratropium-Albuterol 0.5-2.5 (3) MG/3ML Inhalation Solution (Duoneb) INHALE 1 VIAL VIA NEBULIZER EVERY 6 HOURS NEEDED FOR WHEEZING 360 mL 5 ProAir HFA 108 (90 Base) MCG/ACT Inhalation Aerosol Solution Inhale 2 Puffs by mouth as needed for Cough, Shortness of Breath or Wheezing. 18 g 5 Nystatin [id number] UNIT/GM External Cream Apply topically to affected area 2 times a day. To affacted area for two weeks. 30 g 3 Mesalamine 1.2 GM Oral Tablet Delayed Release (Lialda) TAKE BY MOUTH 3 TABLETS IN THE MORNING. 270 Tablet 3 Meclizine HCl 12.5 MG Oral Tablet (Antivert) TAKE 1 TABLET BY MOUTH THREE TIMES A DAY FOR DIZZINESS 30 Tablet 3 Estradiol 0.1 MG/GM Vaginal Cream (Estrace) Administer 2 g into the vagina in the morning. as directed.. 42.5 g 3 SYSTANE 0.4-0.3 % OP SOLN as needed (Patient not taking: Reported on 12/27/2022) guaiFENesin ER 600 MG Oral Tablet Extended Release 12 Hour Take 1 Tablet by mouth in the morning and 1 Tablet before bedtime. Fluticasone Propionate 50 MCG/ACT Nasal Suspension (Flonase) SPRAY 2 SPRAYS INTO EACH NOSTRIL EVERY DAY (Patient not taking: Reported on 10/27/2022) 48 mL 1 Miconazole Nitrate 2 % Vaginal Cream (Monistat 7) Apply to affected area twice a day for 7 days(Patient not taking: Reported on 12/27/2022) 45 g 1 Cefdinir 300 MG Oral Capsule (Omnicef) Take 1 Capsule by mouth in the morning and 1 Capsule before bedtime. Until gone.. 10 Capsule 0 methylPREDNISolone 4 MG Oral Tablet Therapy Pack (Medrol) follow package directions 21 Tablet 0 No current facility-administered medications for this visit. ROS: Per HPI Impression: This is a 82 year old with N39.46 Mixed incontinence (primary encounter diagnosis) R30.0 Dysuria R39.15 Urinary urgency N39.41 Urge incontinence R35.0 Urinary frequency Plan: Will get urine culture today. Discussed limiting caffeine intake. Discussed practicing daily kegel exercises. Discussed OAB medications, patient would like to start with Mybetriq 50mg daily. Risks, benefits and alternatives reviewed. Briefly discussed third line therapies including botox treatments or sacral nerve modulation as possible future options. Discussed incontinence ring pessary; risks, benefits and success rates reviewed. Discussed surgical intervention with mid-urethral sling; risks, benefits and success rates reviewed. Patient would like to return for incontinence ring pessary fitting. I spent a total of 20-29 minutes (exact time 20 mins) on the date of service in preparation, delivery, and documentation of the care provided to Eliazar Beaulieu excluding any time spent in the performanceof separately billed services. Bel Villa PA-C 02/03/2023 11:19 AM Bel Villa PA-C Urogynecology [address] [place] [id number] documented in this encounter Nursing Notes * Monica Orta LPN - 02/03/2023 11:29 AM EDT Patient presents to reassess urinary sx since being treated for UTI. She reports no improvement. Up every 2 hours during the night, occasional burning with urination, incontinence. documented in this encounter Plan of Treatment Upcoming Encounters Date Type Specialty Care Team Description 02/21/2023 Office Visit Cardiology Adrian Savage, DO [address] [place], [place] [address] 02/24/2023 Office Visit Gynecology Urology Bel Villa PA-C [address] [place] [address] Nurse Alexys Urofrancisco Agustin [address] [place] [address] 03/15/2023 Office Visit Dermatology Anya Pratt PA-C [address] [place] [address] [place] [address] 03/22/2023 Procedure Only Endoscopy Gasper Kim, DO [address] [place], [place] [address] 04/07/2023 Nurse Only Rheumatology [place], Nurse Rheum Mo [address] [place] [address] [place] [phone] 04/21/2023 Office Visit Family Medicine Tameka Hooper MD [address] [place] [address] [place] [address] 06/19/2023 Office Visit Nephrology Nicole Lange MD [address] [place] [address], [place] [address] 08/14/2023 Nurse Only Ancillary [place], Nurse Annual [address] [place] [address] 09/01/2023 Office Visit Sleep Disorders Lynn Busby, DO [address] [place] [address] 10/23/2023 Office Visit Rheumatology Daniel Tapia MD [facility] [place] [address] Pending Results Name Type Priority Associated Diagnoses Date /Time CULTURE, URINE, QUANTITATIVE Lab Routine Dysuria Urinary urgency Urge incontinence Urinary frequency 02/03/2023 11:29 AM EDT Scheduled Procedures Name Priority Associated Diagnoses Date/Ti va COLONOSCOPY FLEXIBLE PROXIMAL DIAGNOSTIC Recall History of colon polyps Health Maintenance Due Date Last Done Comments DISCUSS TOBACCO CESSATION (REFER TO SMARTSET #3291) 1940 COVID-19 Vaccine (4 - Moderna series) 07/27/2021 06/01/2021, 10/20/2020, 09/15/2020 Influenza Vaccine (FLU shot) (#1) 2023 GFR 06/28/2023 12/27/2022, 08/03, 04/26/2022, Additional history exists Depression Screening, Annual for Pts 12 and Over 08/11/2023 08/11/2022 CKD HGB USE SMARTSET 27175 08/12/202308/12, 03/10/2022, 03/10/2022, Additional history exists Albumin/Creatinine Ratio 08/15/2023 08/15/2022, 01/31 CKD PHOS USE SMARTSET 95757 12/28/202312/02, 04/26/2022, 11/23/2021, Additional history exists O2 ASSESSMENT COMPLETED IN PAST YEAR FOR COPD 12/28/2023 12/27/2022 DXA Scan 08/01/2024 08/01/2022, 10/2020, 11/21/2013 COLONOSCOPY-EVERY 5 YRS AGES 18-100 02/23/2027 02/23/2022, 08/01/2019, 08/01/2019 DTaP,Tdap,and Td Vaccines (2 - Td or Tdap) 08/07/2030 08/07/2020 (Not indicated), 09/01/1998 Pneumococcal Vaccine: 65+ Years Completed 05/16/2016, 12/01/2014, 12/01/2013, Additional history exists VITAMIN D LEVEL ONCE IN A LIFETIME-USE SMARTSET# [id number] Completed 12/27/2022, 08/12/2022, 03/15/2022, Additional history exists [...] Primary Mixed incontinence urge and stress (male)(female) Dysuria Urinary urgency Urgency of urination Urge incontinence Urinary frequency documented in this encounter Care Teams Customer Assistance Associate Relationship Specialty Start Date End Date Tameka Hooper MD [address] [place] [address] [place] [address] PCP - General Family Medicine 05/29/19 documented as of this encounter
--- OUTSIDE RECORDS SUMMARY | 2023-07-25 21:04 | External Medical Summary ---
Author Name Unknown Address Unknown Organization [id number]:[facility] [address] [place] [id number] Laboratory Report Ordering Provider Test Date Status VILMACHEN 02/03/2023 11:29:22 Final Observation Date Value Abnormality Reference (Units) Status Bacteria identified in Unspecified specimen by Culture 02/03/2023 11:29:22 No significant growth Final Test: Culture, Urine, Quanti tative
Specimen Source: Urine, Clean Catch
Specimen Type: Urine
Specimen Date: 02/03/2023 11:29 AM
Result Date: 02/04/2023 1:05 PM
Result Status: Final result
Resulting Lab: [facility]
[address]
[place] [address]

CULTURE

No significant growth

null Performing Location [facility] [address] [facility] [address]
[2023-07-25 21:55] LABS: Magnesium 2.7 mg/dl (1.7-2.4)
[2023-07-25 22:02] LABS: Creatinine Clr Calc Pharmacy 26.5 ml/min; Est GFR (African American) 37.5 ml/min; Est GFR (Non-African American) 32.3 ml/min
[2023-07-25 22:16] LABS: Folate (Folic Acid),Ser orPlas > 22.30 ng/ml (>5.38)
[2023-07-25 22:17] LABS: Vitamin B12 512 pg/ml (180-914)
[2023-07-25] MEDS: PANTOprazole 40 MG in DEXTROSE 5% MINI-B 100 ML IV SCH (22:26)
[2023-07-25 22:31] LABS: Troponin I High Sensitivity 13.7 pg/ml (0-14)
[2023-07-25 22:37] LABS: Thyroid Stimulating Hormone 2.729 uIu/ml (0.300-4.500)
[2023-07-25 22:43] LABS: Ferritin 15.3 ng/ml (8-388)
[2023-07-26 00:18] LABS: Hematocrit (blood only) 25.9 % (37.0-47.0); Hemoglobin 7.7 g/dl (12.0-16.0)
[2023-07-26] MEDS: PANTOprazole 40 MG in DEXTROSE 5% MINI-B 100 ML IV SCH ×2 (02:43→08:46)
[2023-07-26 06:13] LABS: Hematocrit (blood only) 23.6 % (37.0-47.0); Hemoglobin 7.3 g/dl (12.0-16.0); Mean Corpuscular Hemoglobin 28.2 pg (25.0-34.0); Mean Corpuscular Hgb Conc 30.9 g/dL (32.0-36.0); Mean Corpuscular Volume 91.1 fL (80.0-100.0); Mean Platelet Volume 8.8 fL (9.4-12.4); Platelet Count 277 K/uL (130-400); RDW Coefficient of Variation 21.6 % (11.5-14.5); RDW Standard Deviation 70.9 fL (36.4-46.3); Red Blood Count 2.59 M/uL (4.20-5.40); White Blood Count 10.31 K/ul (4.8-10.8)
[2023-07-26 06:32] LABS: Potassium 4.5 mmol/L (3.5-5.1)
[2023-07-26 06:33] LABS: Albumin Globulin Ratio 1.1 (0.9-2); Albumin Level 3.1 gm/dl (3.4-5.0); BUN Creatinine Ratio 12.3 (10-20); Bilirubin,Total 0.5 mg/dl (0.2-1.0); Calcium 7.1 mg/dl (8.6-10.3); Creatinine Clr Calc Pharmacy 25.7 ml/min; Est GFR (Non-African American) 31.1 ml/min; Globulin 2.7 gm/dl (2.5-4.0); Total Protein 5.8 gm/dl (6.0-8.3)
[2023-07-26] MEDS: ALBUT/IPRATROP 3MG/0.5MG NEB 3 ML VIAL INH PRN (06:54)
[2023-07-26] MEDS: BUDESONIDE 0.25 MG/2 ML VIAL (PULMICORT) INH SCH ×2 (06:54→19:55)
--- NOTE | 2023-07-26 08:46 | Gastrointestinal Consultation ---
Date of Consultation July 26, 2023 Assessment & Plan (1) Anemia: (2) Black tarry stools: Pt is a 83 yo female w hx diverticulitis status postresection of large bowel and colostomy creation, chronic hypoxemic respiratory failure on O2 per nasal cannula 3 L at home, COPD, FRANCIS, A-fib on Xarelto, hypertension, CKD stage III, depression who presented to the ED yesterday with weakness & lightheadedness, black stools; noted to be anemic on presentation w blood ct improving after 1U PRBC transfusion. She takes Ferrous Sulfate 325mg daily at home, iron levels low at 13, B12, FA byron. - NPO - EGD today by Dr. Gasper Kim - PPI gtt - Monitor blood ct and transfuse prn - Will need f/u colonoscopy at some point (inpt vs outpt) given hx of ? IBD vs ischemic colitis on last colonoscopy in 2021 Supervising Physician Co-Signing Physician Notes I saw and evaluated the patient, given the patient's history of melena and anticoagulation we will proceed with upper endoscopy today. We discussed the risks and benefits to include bleeding infection perforation pain and need for follow-up studies. The patient is at higher than average risk of perioperative complications given her long-term smoking and advanced COPD. History of Present Illness Reason for Consultation: Anemia, GI bleed Requesting Physician: Dr. Gabrielle Petersen Attending Physician: Dr. Gasper Kim History of Present Illness Patient is an 83 years old female with past medical history is including diverticulitis status postresection of large bowel and colostomy creation, chronic hypoxemic respiratory failure on O2 per nasal cannula 3 L at home, COPD, FRANCIS, A-fib on Xarelto, hypertension, CKD stage III, depression who presented to the ED yesterday with complaints of generalized weakness for the last 2 months. Patient has associated lightheadedness and also noticed black stools via her ostomy for the last 2 months also. She does take PO iron supplements. She denies any abdominal pain, nausea, vomiting, changes to her appetite otherwise. Upon evaluation she was noted to be anemic with hemoglobin of 6.9, normal at baseline last year. Blood ct improves after 1U PRBC transfusion last night. INR 1.1, BUN normal. Iron low, B12, Folate levels normal. CXR: Faint bibasilar airspace opacities which may represent atelectasis, pneumonia, and/or aspiration. She smokes 3 to 4 cigarettes daily, denies alcohol or NSAIDs. She has never had an upper endoscopy per our records. Her last colonoscopy was in 2021,? IBD versus ischemic colitis. Was supposed to have a follow-up colonoscopy sometime in 2022. Allergies Allergy/AdvReac Type Severity Reaction Status Date / Time amoxicillin Allergy Intermediate Rash Verified 07/25/23 16:04 cephalexin [From Keflex] Allergy Intermediate Rash Verified 07/25/23 16:04 cilostazol [From Pletal] Allergy Intermediate Rash Verified 07/25/23 16:04 ciprofloxacin [From Cipro] Allergy Intermediate Rash Verified 07/25/23 16:04 diltiazem Allergy Intermediate Rash Verified 07/25/23 16:04 felodipine Allergy Intermediate Rash Verified 07/25/23 16:04 meloxicam Allergy Intermediate Rash Verified 07/25/23 16:04 sulfamethoxazole Allergy Intermediate Rash Verified 07/25/23 16:04 [From Bactrim] trimethoprim [From Bactrim] Allergy Intermediate Rash Verified 07/25/23 16:04 Home Medications Medication Instructions Recorded Confirmed Type calcium carbonate 500 mg-vitamin 1 tab PO QPM 03/10/19 07/25/23 History D3 10 mcg (400 unit) tablet (Calcium 500 + D) escitalopram oxalate 10 mg tablet 10 mg PO QAM 03/10/19 07/25/23 History (Lexapro) ferrous sulfate 325 mg (65 mg 325 mg PO QAM 03/10/19 07/25/23 History iron) tablet verapamil 240 mg tablet,extended 240 mg PO QAM 03/10/19 07/25/23 History release vit C 250 mg-vit E 90 mg-zinc 40 1 tab PO QAM 03/10/19 07/25/23 History mg-copper 1 [id number] capsule (PreserVision AREDS-2) guaifenesin 600 mg tablet, 600 mg PO BID #60 tabs 07/16/20 07/25/23 Rx extended release 12 hr (Mucinex) ascorbic acid (vitamin C) 500 mg 500 mg PO QAM 12/08/20 07/25/23 History tablet (Vitamin C) cyclosporine 0.05 % eye drops in a 1 drp OPB BID 12/08/20 07/25/23 History dropperette (Restasis) flecainide 50 mg tablet 50 mg PO BID 12/08/20 07/25/23 History Portable Oxygen #1 ea 03/25/21 01/19/23 Rx rivaroxaban 15 mg tablet (Xarelto) 15 mg PO QPM 11/05/21 07/25/23 History Auto Titrating CPAP #1 ea 02/03/23 02/03/23 Rx CPAP Supplies #1 ea 02/03/23 02/03/23 Rx albuterol sulfate 90 mcg/actuation 1 inh inhalation QID PRN Shortness 02/03/23 07/25/23 Rx aerosol inhaler (ProAir HFA) Of Breath #8.5 grams budesonide 0.25 mg/2 mL suspension 0.25 mg (2 mL) inhalation BID #60 02/03/23 07/25/23 Rx for nebulization mL umeclidinium 62.5 mcg-vilanterol 1 inh inhalation QAM #60 ea 02/03/23 07/25/23 R x 25 mcg/actuation powdr for inhalation (Anoro Ellipta) lisinopril 2.5 mg tablet 2.5 mg PO QAM 03/14/23 07/25/23 History mesalamine 1.2 gram tablet,delayed 3.6 g PO QAM 03/14/23 07/25/23 History release acetaminophen 325 mg tablet 325 mg PO Q6H PRN Pain 07/25/23 07/25/23 History (Tylenol) ipratropium 0.5 mg-albuterol 3 mg 3 ml inhalation Q4H PRN Wheezing 07/25/23 07/25/23 History (2.5 mg base)/3 mL nebulization soln omega-3 fatty acids 500 mg capsule 500 mg PO DAILY 07/25/23 07/25/23 History solifenacin 5 mg tablet 5 mg PO QAM 07/25/23 07/25/23 History triamcinolone acetonide 0.05 % 1 applic topical BID PRN AFFECTED 07/25/23 07/25/23 History topical ointment AREA Patient History Medical History (Updated 07/26/23 @ 09:29 by Izaiah Richard MD) Encounter for pre-operative examination FRANCIS (obstructive sleep apnea) Osteoarthritis Chronic back pain Diverticular disease Skin cancer of nose 1970s--unsure which kind, removed in office On anticoagulant therapy xarelto daily On home oxygen therapy 4L N/C PRN PVD (peripheral vascular disease) PAF (paroxysmal atrial fibrillation) on xarelto/flecainide--follows with Dr. Savage Depression Macular degeneration Osteoporosis CKD (chronic kidney disease), stage III HTN (hypertension) HLD (hyperlipidemia) Multiple pulmonary nodules Tobacco dependence due to cigarettes 5 per day Chronic bronchitis COPD (chronic obstructive pulmonary disease) inhaler daily/prn, nebulizer daily/prn; continuous oxygen 3L Colostomy in place Diverticulitis Surgical History History of appendectomy taken out during resection of bowel History of colonoscopy History of tooth extraction History of cataract extraction with lens replacement bilateral History of tonsillectomy History of tubal ligation History of resection of large bowel (~10/2018) perforated bowel d/t diverticulitis History of creation of ostomy 10/2018 Family History Father Pancreatic cancer Mother Stroke Other No family history of adverse response to anesthesia Social History Smoking Status: Current every day smoker Tobacco Type: Cigarettes Age Started Using Tobacco: 22; Cigarettes Per Day: 3; Second Hand Exposure: Yes (hx growing up); Do You Dip or Chew Tobacco: No; Hx Alcohol Use: No Hx Substance Use: No Preferred Language: Moldovan Communication Ability: Effective Inspecting And Testing Lead Hand Required: No Beliefs That Will Affect Care: None marital status: / Current Living Situation: Alone Current Living Situation Comment: Mobile home, [address] Other Information That Helps Us Care for You: No ("I like [employer]") Feels Safe at Home: Yes Assistive Devices: Glasses and Oxygen - Continuous Review of Systems Review of Systems: All systems reviewed & are unremarkable except as noted in HPI & below Physical Exam Constitutional: WD/WN, vitals as above well groomed, cooperative and comfortable Eyes: PERRL, conjunctivae normal, anicteric sclerae ENMT: external ear and nose normal, oropharynx normal Respiratory: Diminished overall lung sounds Cardiovascular: RRR, no murmur, no edema Gastrointestinal (Abdomen): normal bowel sounds, soft, nontender, no hepatosplenomegaly (Ostomy to LLQ w black stools ) Skin: no rashes, warm and dry no jaundice Neurologic: Motor/Sensory: no asterixis Psychiatric: A+Ox3, euthymic affect Lymphatic: no lymphedema Results & Data Vital Signs (Past 12 Hours) Vital Signs Temp Pulse Pulse Resp BP BP Pulse Ox 07/26/23 07:44 36.9 C 76 26 H 148/54 H 92 07/26/23 07:41 82 07/26/23 06:54 69 20 96 07/26/23 03:35 37.4 C 71 22 143/50 H 92 07/25/23 21:25 37 C 66 22 125/52 L 94 07/25/23 21:16 07/25/23 21:15 70 07/25/23 21:13 37.1 C 75 22 103/60 94 O2 Del Method O2 Flow Rate 07/26/23 07:44 Nasal Cannula 3 07/26/23 07:41 07/26/23 06:54 Nasal Cannula 3 07/26/23 03:35 Nasal Cannula 3 07/25/23 21:25 3 07/25/23 21:16 Nasal Cannula 3 07/25/23 21:15 07/25/23 21:13 3 (1) Anemia Anemia type: unspecified type Qualified Code(s): D64.9 - Anemia, unspecified
[2023-07-26] MEDS: CEROVITE ADV FORMULA TAB PO SCH (08:57)
[2023-07-26] MEDS: lisinopril 2.5 MG TAB PO SCH (08:57)
[2023-07-26] MEDS: ESCITALOPRAM OXALATE 10 MG TAB PO SCH (08:57)
[2023-07-26] MEDS: OXYBUTYNIN CHLORIDE XL 5 MG TABCR PO SCH (08:57)
[2023-07-26] MEDS: FLECAINIDE ACETATE 100 MG TABLET PO SCH ×2 (08:57→19:33)
[2023-07-26] MEDS: UMECLIDINIUM/VILANTEROL 62.5/25MCG 7 PUFFS/INHALER INH SCH (08:58)
[2023-07-26] MEDS: VERAPAMIL HCL 240 MG TABCR PO SCH (08:58)
[2023-07-26] MEDS ORDERED: FERROUS SULFATE 325 MG TAB PO SCH (09:00)
--- NOTE | 2023-07-26 09:27 | Anesthesiology Consultation ---
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 Consults Requested none Proposed Anesthesia Anesthesia Type: MAC History Surgery Operation Date: 07/26/23 16:30 Proposed Procedures p Esophagogastroduodenoscopy Dr Julio Kim, Height/Weight Height: 4 ft 11 in Weight: 78.1 kg Allergies Allergy/AdvReac Type Severity Reaction Status Date / Time amoxicillin Allergy Intermediate Rash Verified 07/25/23 16:04 cephalexin [From Keflex] Allergy Intermediate Rash Verified 07/25/23 16:04 cilostazol [From Pletal] Allergy Intermediate Rash Verified 07/25/23 16:04 ciprofloxacin [From Cipro] Allergy Intermediate Rash Verified 07/25/23 16:04 diltiazem Allergy Intermediate Rash Verified 07/25/23 16:04 felodipine Allergy Intermediate Rash Verified 07/25/23 16:04 meloxicam Allergy Intermediate Rash Verified 07/25/23 16:04 sulfamethoxazole Allergy Intermediate Rash Verified 07/25/23 16:04 [From Bactrim] trimethoprim [From Bactrim] Allergy Intermediate Rash Verified 07/25/23 16:04 Medications Home Medications Medication Instructions Recorded Confirmed Last Taken calcium carbonate 500 mg-vitamin 1 tab PO QPM 03/10/19 07/25/23 07/24/23 D3 10 mcg (400 unit) tablet (Calcium 500 + D) escitalopram oxalate 10 mg tablet 10 mg PO QAM 03/10/19 07/25/23 07/24/23 (Lexapro) ferrous sulfate 325 mg (65 mg 325 mg PO QAM 03/10/19 07/25/23 07/24/23 iron) tablet verapamil 240 mg tablet,extended 240 mg PO QAM 03/10/19 07/25/23 07/24/23 release vit C 250 mg-vit E 90 mg-zinc 40 1 tab PO QAM 03/10/19 07/25/23 07/24/23 mg-copper 1 [id number] capsule (PreserVision AREDS-2) guaifenesin 600 mg tablet, 600 mg PO BID #60 tabs 07/16/20 07/25/23 07/24/23 extended release 12 hr (Mucinex) ascorbic acid (vitamin C) 500 mg 500 mg PO QAM 12/08/20 07/25/23 07/24/23 tablet (Vitamin C) cyclosporine 0.05 % eye drops in a 1 drp OPB BID 12/08/20 07/25/23 07/24/23 dropperette (Restasis) flecainide 50 mg tablet 50 mg PO BID 12/08/20 07/25/23 07/24/23 Portable Oxygen #1 ea 03/25/21 01/19/23 Unknown rivaroxaban 15 mg tablet (Xarelto) 15 mg PO QPM 11/05/21 07/25/23 07/24/23 Auto Titrating CPAP #1 ea 02/03/23 02/03/23 Unknown CPAP Supplies #1 ea 02/03/23 02/03/23 Unknown albuterol sulfate 90 mcg/actuation 1 inh inhalation QID PRN Shortness 02/03/23 07/25/23 Unknown aerosol inhaler (ProAir HFA) Of Breath #8.5 grams budesonide 0.25 mg/2 mL suspension 0.25 mg (2 mL) inhalation BID #60 02/03/23 07/25/23 07/24/23 for nebulization mL umeclidinium 62.5 mcg-vilanterol 1 inh inhalation QAM #60 ea 02/03/23 07/25/23 07/24/23 25 mcg/actuation powdr for inhalation (Anoro Ellipta) lisinopril 2.5 mg tablet 2.5 mg PO QAM 03/14/23 07/25/23 07/24/23 mesalamine 1.2 gram tablet,delayed 3.6 g PO QAM 03/14/23 07/25/23 07/24/23 release acetaminophen 325 mg tablet 325 mg PO Q6H PRN Pain 07/25/23 07/25/23 Unknown (Tylenol) ipratropium 0.5 mg-albuterol 3 mg 3 ml inhalation Q4H PRN Wheezing 07/25/23 07/25/23 Unknown (2.5 mg base)/3 mL nebulization soln omega-3 fatty acids 500 mg capsule 500 mg PO DAILY 07/25/23 07/25/23 07/24/23 solifenacin 5 mg tablet 5 mg PO QAM 07/25/23 07/25/23 07/24/23 triamcinolone acetonide 0.05 % 1 applic topical BID PRN AFFECTED 07/25/23 07/25/23 Unknown topical ointment AREA Active Medications Generic Name Dose Route Start Last Admin Trade Name Albert PRN Reason Stop Dose Admin Albuterol 3 ml 07/25/23 16:19 07/26/23 06:54 Albut/Ipratrop 3mg/0.5mg Neb 3 Ml Vial INH 08/24/23 16:18 3 ml Q4H PRN Administration Wheezing Protocol Budesonide 0.25 mg 07/25/23 19:00 07/26/23 06:54 Budesonide 0.25 Mg/2 Ml Vial (Pulmicort) INH 08/24/23 18:59 0.25 mg BIDR [place] Administration Escitalopram Oxalate 10 mg 07/26/23 09:00 07/26/23 08:57 Escitalopram Oxalate 10 Mg Tab PO 08/25/23 08:59 Not Given QAM [place] Ferrous Sulfate 325 mg 07/26/23 09:00 07/26/23 08:57 Ferrous Sulfate 325 Mg Tab PO 08/25/23 08:59 Not Given QAM [place] Flecainide Acetate 50 mg 07/25/23 21:00 07/26/23 08:57 Flecainide Acetate 100 Mg Tablet PO 08/24/23 20:59 Not Given BID [place] Pantoprazole Sodium 40 mg/ 100 mls @ 20 mls/hr 07/25/23 22:00 07/26/23 08:46 Dextrose IV 08/24/23 21:59 8 mg/hr Q5H [place] 20 mls/hr Administration 8 MG/HR Lisinopril 2.5 mg 07/26/23 09:00 07/26/23 08:57 Lisinopril 2.5 Mg Tab PO 08/25/23 08:59 Not Given QAM [facility] Miscellaneous 1 each 07/26/23 00:00 07/26/23 08:59 Order Awaiting Action [Cyclosporine [Restasis] 0.05 % Dropperette] N/A 08/25/23 00:00 Not Given QS [place] Multivitamins/Minerals 1 tab 07/26/23 09:00 07/26/23 08:57 Cerovite Adv Formula Tab PO 08/25/23 08:59 Not Given QAM [facility] Oxybutynin Chloride 5 mg 07/26/23 09:00 07/26/23 08:57 Oxybutynin Chloride Xl 5 Mg Tabcr PO 08/25/23 08:59 Not Given QAM [facility] Protocol Umeclidinium/Vilanterol 1 puffs 07/26/23 09:00 07/26/23 08:58 Umeclidinium/Vilanterol 62.5/25mcg 7 Puffs/Inhaler INH 08/25/23 08:59 Not Given QAM [place] Verapamil HCl 240 mg 07/26/23 09:00 07/26/23 08:58 Verapamil Hcl 240 Mg Tabcr PO 08/25/23 08:59 Not Given QAM [place] Past Medical History Medical History (Updated 07/26/23 @ 09:29 by Izaiah Richard MD) Encounter for pre-operative examination FRANCIS (obstructive sleep apnea) Osteoarthritis Chronic back pain Diverticular disease Skin cancer of nose 1970s--unsure which kind, removed in office On anticoagulant therapy xarelto daily On home oxygen therapy 4L N/C PRN PVD (peripheral vascular disease) PAF (paroxysmal atrial fibrillation) on xarelto/flecainide--follows with Dr. Savage Depression Macular degeneration Osteoporosis CKD (chronic kidney disease), stage III HTN (hypertension) HLD (hyperlipidemia) Multiple pulmonary nodules Tobacco dependence due to cigarettes 5 per day Chronic bronchitis COPD (chronic obstructive pulmonary disease) inhaler daily/prn, nebulizer daily/prn; continuous oxygen 3L Colostomy in place Diverticulitis Past Family History Family History Father Pancreatic cancer Mother Stroke Other No family history of adverse response to anesthesia Past Surgical History Surgical History History of appendectomy taken out during resection of bowel History of colonoscopy History of tooth extraction History of cataract extraction with lens replacement bilateral History of tonsillectomy History of tubal ligation History of resection of large bowel (~10/2018) perforated bowel d/t diverticulitis History of creation of ostomy 10/2018 Social History Smoking Status: Current every day smoker tobacco type: cigarettes Smoking cigarettes per day: 3 Do You Dip or Chew Tobacco: No Hx Alcohol Use: No Hx Substance Use: No substance use type: does not use Physical Exam Vital Signs Last Vital Signs Temp 36.9 C 07/26/23 07:44 Pulse 76 07/26/23 07:44 Resp 26 H 07/26/23 07:44 BP 148/54 H 07/26/23 07:44 Pulse Ox 92 07/26/23 07:44 O2 Del Method Nasal Cannula 07/26/23 07:44 O2 Flow Rate 3 07/26/23 07:44 Testing Laboratory Results 07/26/23 05:45 07/26/23 05:45 PT 11.8 Seconds (9.0-12.0) 07/25/23 15:23 INR 1.1 (0.9-1.1) 07/25/23 15:23 APTT 33 Seconds (21-31) H 07/25/23 15:23 Urine Color Yellow 07/25/23 16:57 Urine Appearance Turbid (Clear) A 07/25/23 16:57 Urine pH 7.5 (4.5-7.5) 07/25/23 16:57 Ur Specific [place] 1.012 (1.000-1.030) 07/25/23 16:57 Urine Protein 1+ (Negative) H 07/25/23 16:57 Urine Glucose (UA) Negative (Negative) 07/25/23 16:57 Urine Ketones Negative (Negative) 07/25/23 16:57 Urine Nitrite Negative (Negative) 07/25/23 16:57 Ur Leukocyte Esterase 3+ (Negative) H 07/25/23 16:57 Urine WBC (Auto) >30 /hpf (0-5) H 07/25/23 16:57 Urine RBC (Auto) >30 /hpf (0-4) H 07/25/23 16:57 U Hyaline Cast (Auto) 1-5 /lpf (0-5) 07/25/23 16:57 U Epithel Cells (Auto) 10-20 /lpf (0-5) H 07/25/23 16:57 Urine Bacteria (Auto) Negative (Negative) 07/25/23 16:57 Blood Type A Positive 07/25/23 15:23 Antibody Screen NEGATIVE 07/25/23 15:23 Electrocardiogram Date: 07/25/23 4 14:25:04 [facility]-EDSTAT ROUTINE RETRIEVAL Sinus rhythm with 1st degree A-V block Low voltage QRS Cannot rule out Anterior infarct , age undetermined Abnormal ECG When compared with ECG of 05-NOV-2021 12:54, Minimal criteria for Anterior infarct are now Present Borderline criteria for Inferior infarct are no longer Present 25mm/s10mm/[id number] 243CID: [id number] by: REFERRED SELF Unconfirmed Vent. rate 67 BPM [place] interval 298 ms QRS duration 66 ms QT/QTc 396/418 ms P-R-T axes 93 -1 83 Chest X-Ray Date: 07/25/23 XR chest 1V portable CLINICAL HISTORY: generalized weakness TECHNIQUE: Single frontal radiograph of the chest was obtained. Comparison: Comparison is made to chest radiograph 11/05/2021 FINDINGS: No lines and tubes are seen. Cardiomegaly is noted. The aortic arch is calcified. Faint bibasilar airspace opacities are seen. Interstitial thickening is seen. No evidence of pleural effusion or pneumothorax. IMPRESSION: Faint bibasilar airspace opacities which may represent atelectasis, pneumonia, and/or aspiration. Echocardiogram Date: 07/15/19 EF: 62% LV Function: normal RWMA: + none Other Findings: + diastolic dysfunction (grade 1)
--- NOTE | 2023-07-26 11:10 | Communication Note ---
Date of Service: July 26, 2023 Patient underwent upper endoscopy today for her complaint of melena. She was found to have a small hiatal hernia, Schatzki's ring in addition to several clean-based ulcers of the gastric antrum. The gastric ulcers are the likely cause of the patient's melena. Recommendations Hold anticoagulation for 1 week Avoid use of nonsteroidals Protonix for omeprazole 40 mg daily for 3 months Carafate 1 g 4 times daily for 10 days Surveillance upper endoscopy to assess healing in 3 months Advance diet as tolerated Please call with any questions or concerns GI to sign off
[2023-07-26] MEDS ORDERED: PROPOFOL IV EMULSION 10 MG/ML 20 ML VIAL IV ONE (11:14)
[2023-07-26] MEDS ORDERED: LIDOCAINE 2% 2 ML VIAL/AMP(20MG/ML) INFIL ONE (11:14)
--- NOTE | 2023-07-26 11:15 | GI REPORT ---
Patient Name: Eliazar Beaulieu Procedure Date: 07/26/2023 10:29 AM Date of : 1940 Admit Type: Inpatient Age: 83 Gender: Female Attending MD: Gasper Kim DO, Procedure: Upper GI endoscopy Providers: Gasper Kim DO Referring MD: Gabrielle Petersen Md Indications: Melena Medicines: Monitored Anesthesia Care Complications: No immediate complications. Estimated blood loss: Minimal. Estimated Blood Loss: Estimated blood loss was minimal. Procedure: Pre-Anesthesia Assessment: - Prior to the procedure, a History and Physical was performed, and patient medications, allergies and sensitivities were reviewed. The patient's tolerance of previous anesthesia was reviewed. - The risks and benefits of the procedure and the sedation options and risks were discussed with the patient. All questions were answered and informed consent was obtained. - Patient identification and proposed procedure were verified prior to the procedure by the physician, the nurse and the fine unhairer. The procedure was verified in the procedure room. - Pre-procedure physical examination revealed no contraindications to sedation. - ASA Grade Assessment: IV - A patient with severe systemic disease that is a constant threat to life. - After reviewing the risks and benefits, the patient was deemed in satisfactory condition to undergo the procedure. - The anesthesia plan was to use monitored anesthesia care (MAC). - Immediately prior to administration of medications, the patient was re-assessed for adequacy to receive sedatives. - The heart rate, respiratory rate, oxygen saturations, blood pressure, adequacy of pulmonary ventilation, and response to care were monitored throughout the procedure. - The physical status of the patient was re-assessed after the procedure. After obtaining informed consent, the endoscope was passed under direct vision. Throughout the procedure, the patient's blood pressure, pulse, and oxygen saturations were monitored continuously. The Endoscope was introduced through the mouth, and advanced to the third part of duodenum. The upper GI endoscopy was accomplished without difficulty. The patient tolerated the procedure well. Findings: The upper third of the esophagus and middle third of the esophagus were normal. A non-obstructing Schatzki ring was found at the gastroesophageal junction. A small hiatal hernia was found. The proximal extent of the gastric folds (end of tubular esophagus) was 36 cm from the incisors. The hiatal narrowing was 38 cm from the incisors. The Z-line was 36 cm from the incisors. The gastric fundus and gastric body were normal. Many non-obstructing non-bleeding superficial gastric ulcers of mild to moderate severity with no stigmata of bleeding were found in the gastric antrum. The largest lesion was 6 mm in largest dimension. Biopsies were taken with a cold forceps for histology. The pathology specimen was placed into Bottle A. Estimated blood loss was minimal. The examined duodenum was normal. Impression: - Normal upper third of esophagus and middle third of esophagus. - Non-obstructing Schatzki ring. - Small hiatal hernia. - Normal gastric fundus and gastric body. - Non-obstructing non-bleeding gastric ulcers with no stigmata of bleeding. NSAID induced etiology. Biopsied. - Normal examined duodenum. Recommendation: - [facility] patient to [facility] care. - Advance diet as tolerated today. - Use Protonix (pantoprazole) 40 mg PO daily for 3 months. - Use sucralfate tablets 1 gram PO QID for 10 days. - No aspirin, ibuprofen, naproxen, or other non-steroidal anti-inflammatory drugs. - Hold anticoagulation for 1 week - Repeat upper endoscopy in 3 months to check healing. Gasper Kim D.O. Gasper Kim, DO 07/26/2023 11:14:54 AM This report has been signed electronically. Note Initiated On: 07/26/2023 10:29 AM Number of Addenda: 0 I attest to the content of the Intraoperative Record and orders documented therein, exceptions below {[id number]}
--- NOTE | 2023-07-26 11:15 | Electrocardiogram Report ---
Test Reason : Blood Pressure : / mmHG Vent. Rate : 067 BPM Atrial Rate : 067 BPM P-R Int : 298 ms QRS Dur : 066 ms QT Int : 396 ms P-R-T Axes : 093 -01 083 degrees QTc Int : 418 ms Sinus rhythm with 1st degree A-V block Low voltage QRS Abnormal ECG When compared with ECG of 05-NOV-2021 12:54, Borderline criteria for Inferior infarct are no longer Present Confirmed by Izaiah Sarabia ([id number]) on 07/26/2023 11:14:51 AM Referred By: REFERRED SELF Confirmed By:Florencio Sarabia
[2023-07-26] MEDS: SUCRALFATE 1 GM/10 ML UDC PO SCH ×3 (12:36→19:33)
[2023-07-26] MEDS: PANTOprazole 40 MG TAB PO SCH (12:36)
--- NOTE | 2023-07-26 13:08 | Anesthesiology Progress Note ---
Date of Service July 26, 2023 Anesthesia Post Procedure Vital Signs Vital Signs: Temp Pulse Pulse Pulse Resp BP BP 07/26/23 12:41 37.2 C 75 22 138/54 L 07/26/23 11:54 78 16 146/48 H 07/26/23 11:34 74 20 133/49 L 07/26/23 11:19 76 18 121/62 07/26/23 11:04 75 16 100/47 L 07/26/23 10:16 37.1 C 75 18 129/64 07/26/23 10:04 71 20 146/59 H 07/26/23 07:44 36.9 C 76 26 H 148/54 H 07/26/23 07:41 82 07/26/23 06:54 69 20 07/26/23 03:35 37.4 C 71 22 143/50 H 07/25/23 21:25 37 C 66 22 125/52 L 07/25/23 21:16 07/25/23 21:15 70 07/25/23 21:13 37.1 C 75 22 103/60 07/25/23 20:16 90 22 07/25/23 20:13 37 C 67 22 131/51 L 07/25/23 20:04 67 24 131/51 L 07/25/23 19:45 37.2 C 70 22 130/48 L 07/25/23 19:15 36.8 C 67 22 135/42 L 07/25/23 18:43 37.1 C 74 22 146/65 H 07/25/23 18:28 37.0 C 70 20 136/49 L 07/25/23 18:09 37.1 C 69 22 130/76 07/25/23 16:04 66 07/25/23 15:47 76 22 152/62 H 07/25/23 15:45 07/25/23 13:58 36.7 C 91 H 18 135/58 L Pulse Ox O2 Del Method O2 Flow Rate 07/26/23 12:41 96 Nasal Cannula 3 07/26/23 11:54 96 Nasal Cannula 3 07/26/23 11:34 96 Nasal Cannula 3 07/26/23 11:19 98 Nasal Cannula 3 07/26/23 11:04 93 Nasal Cannula 3 07/26/23 10:16 94 Nasal Cannula 3 07/26/23 10:04 94 Nasal Cannula 3 07/26/23 07:44 92 Nasal Cannula 3 07/26/23 07:41 07/26/23 06:54 96 Nasal Cannula 3 07/26/23 03:35 92 Nasal Cannula 3 07/25/23 21:25 94 3 07/25/23 21:16 Nasal Cannula 3 07/25/23 21:15 07/25/23 21:13 94 3 07/25/23 20:16 97 Nasal Cannula 3 07/25/23 20:13 95 3 07/25/23 20:04 97 Nasal Cannula 3 07/25/23 19:45 97 3 07/25/23 19:15 95 3 07/25/23 18:43 100 3 07/25/23 18:28 99 3 07/25/23 18:09 100 3 07/25/23 16:04 07/25/23 15:47 100 Nasal Cannula 3 07/25/23 15:45 100 Nasal Cannula 3 07/25/23 13:58 96 Nasal Cannula 3 Transfer of Care Handoff Completed per policy Notes Mental Status: alert / awake / arousable and participated in evaluation Patient Amnestic to Procedure: Yes Nausea / Vomiting: adequately controlled Pain: adequately controlled Airway Patency, RR, SpO2: stable & adequate BP & HR: stable & adequate Hydration State: stable & adequate Anesthetic Complications: no major complications apparent
--- NOTE | 2023-07-26 13:17 | Hospitalist Progress Note ---
Date of Service July 26, 2023 Assessment & Plan (1) Anemia: (2) Weakness: (3) GI (gastrointestinal bleed): (4) PAF (paroxysmal atrial fibrillation): (5) Chronic respiratory failure with hypoxia: (6) COPD (chronic obstructive pulmonary disease): (7) FRANCIS (obstructive sleep apnea): (8) CKD (chronic kidney disease), stage III: (9) HTN (hypertension): (10) Tobacco dependence due to cigarettes: (11) Diverticulitis: (12) Colostomy in place: (13) UTI (urinary tract infection): Plan Pt is a 83yoF with PMHx significant for IBD noted on pathology in 2021, history of diverticulitis and resection of large bowel with colostomy, chronic hypoxemic respiratory failure, COPD, FRANCIS on 3L NC, paroxysmal atrial fibrillation on Xarelto, hypertension, CKD 3, depression who presented with melena and generalized weakness over the past 2 months in the setting of a GI Bleed. Acute blood loss anemia Iron Deficiency Anemia GI Bleed Generalized weakness- likely in setting of above Progressive weakness, lightheadedness and darkened ostomy output over the past 2 months Colonoscopy in 2021 with evidence of inflammatory changes, pathology noting chronic active colitis most consistent with IBD. Hgb 6.9 on admission (baseline hgb ~14) Iron level of 13 Vit b12 and folate level wnl Was transfused 1U pRBC with hgb of 7.7 IV Venofer for iron supplementation (pt was unable to take po iron ordered this AM) s/p EGD on 07/26 with GI, appreciate recs -noted gastric ulcers (likely cause of melena), nonobstructing Schatzki ring, small hiatal hernia -pending biopsy/pathology of gastric ulcer -NO NSAIDS, likely cause of gastric ulcers per GI -pantoprazole 40mg daily x 3 months -sucralfate 1gm QID x 10 days -hold anticoagulation (home Xarelto) for 1 week -repeat EGD in 3 months Monitor H/H with AM labs, repeat iron level in AM after supplementation PT/OT orders placed Complicated UTI UA on admission suggestive of infection Urine Cx currently pending Started on Aztreonam (pt with many antibiotic allergies) Follow Cx and narrow abx Hyperkalemia Potassium of 5.2 on admission Has since downtrended to normal limits Continue to monitor PAF (paroxysmal atrial fibrillation) In sinus rhythm on admission On flecainide and verapamil, continue Anticoagulated with xarelto, holding for 1 week per GI recs above Monitor on telemetry Chronic respiratory failure with hypoxia COPD (chronic obstructive pulmonary disease) FRANCIS (obstructive sleep apnea) Pt states that she uses 3L at baseline, both with rest and ambulation No longer uses CPAP at night Continue home Budesonide, Anoro inh, Duonebs PRN CKD (chronic kidney disease), stage III Cr 1.51 (Baseline Cr mid 1s) Continue to monitor with daily BMP HTN (hypertension) BP was elevated on admission Continue lisinopril, verapamil Tobacco dependence due to cigarettes Still smoking 3-4 cigarettes daily Encourage cessation IBD Diverticulitis Colostomy in place H/o colon resection in 2019 at [facility] in [place] Has colostomy bag in place Mood Continue home lexapro Urinary Urgency Continue oxybutynin Diet: HH DVT Ppx: holding Xarelto in setting of GI bleed Code status: FULL Dispo: admitted to PCU Admission and Anticipated Discharge Date Admission Date: July 25, 2023 Subjective Pt was seen while she was still down in the ED waiting for a room. Was seen after her EGD. States that she does not use NSAIDs, mostly tylenol. Notes she has a Hx of COPD so that's why she was coughing. Uses oxygen at baseline, 3L at rest and with ambulation. Denied sick contacts. Review of Systems Review of Systems: All systems reviewed & are unremarkable except as noted in Subjective Physical Exam Physical Exam: General: Alert, oriented. No acute distress Psych: Appropriate mood and affect Neuro: CNII-XII grossly intact, No gross deficits HEENT: NC/AT, NC in nares Chest: Nontender to palpation. CV: Regular Resp: Breath sounds with scattered wheezing bilaterally, no increased effort of breathing. Coughing occasionally, Abdomen: Soft, colostomy bag in place Extremities: edema in lower extremities Results & Data Results & Data Vital Signs (Past 12 Hours) Vital Signs Temp Pulse Pulse Pulse Resp BP Pulse Ox 07/26/23 12:41 37.2 C 75 22 138/54 L 96 07/26/23 11:54 78 16 146/48 H 96 07/26/23 11:34 74 20 133/49 L 96 07/26/23 11:19 76 18 121/62 98 07/26/23 11:04 75 16 100/47 L 93 07/26/23 10:16 37.1 C 75 18 129/64 94 07/26/23 10:04 71 20 146/59 H 94 07/26/23 07:44 36.9 C 76 26 H 148/54 H 92 07/26/23 07:41 82 07/26/23 06:54 69 20 96 07/26/23 03:35 37.4 C 71 22 143/50 H 92 O2 Del Method O2 Flow Rate 07/26/23 12:41 Nasal Cannula 3 07/26/23 11:54 Nasal Cannula 3 07/26/23 11:34 Nasal Cannula 3 07/26/23 11:19 Nasal Cannula 3 07/26/23 11:04 Nasal Cannula 3 07/26/23 10:16 Nasal Cannula 3 07/26/23 10:04 Nasal Cannula 3 07/26/23 07:44 Nasal Cannula 3 07/26/23 07:41 07/26/23 06:54 Nasal Cannula 3 07/26/23 03:35 Nasal Cannula 3 (1) Anemia Anemia type: unspecified type Qualified Code(s): D64.9 - Anemia, unspecified (3) GI (gastrointestinal bleed) GI bleed type/associated pathology: unspecified gastrointestinal hemorrhage type Qualified Code(s): K92.2 - Gastrointestinal hemorrhage, unspecified
[2023-07-26] MEDS ORDERED: ARTIFICIAL TEARS OP PRN (14:26)
[2023-07-26] MEDS ORDERED: IRON SUCROSE 200 MG in 0.9 % SODIUM CHLORIDE 100 ML IV ONE (21:45)
[2023-07-26] MEDS: AZTREONAM 1,000 MG in DEXTROSE 5% MINI-B 100 ML IV SCH (22:51)
[2023-07-27] MEDS: AZTREONAM 1,000 MG in DEXTROSE 5% MINI-B 100 ML IV SCH ×3 (05:50→18:25)
[2023-07-27 07:16] LABS: Hematocrit (blood only) 25.3 % (37.0-47.0); Hemoglobin 7.4 g/dl (12.0-16.0); Mean Corpuscular Hemoglobin 27.5 pg (25.0-34.0); Mean Corpuscular Hgb Conc 29.2 g/dL (32.0-36.0); Mean Corpuscular Volume 94.1 fL (80.0-100.0); Mean Platelet Volume 8.8 fL (9.4-12.4); Nucleated RBC # (auto) 0.02 K/uL (0.00-0.12); Nucleated RBC % (auto) 0.2 %; Platelet Count 252 K/uL (130-400); RDW Coefficient of Variation 20.3 % (11.5-14.5); RDW Standard Deviation 70.2 fL (36.4-46.3); Red Blood Count 2.69 M/uL (4.20-5.40); White Blood Count 9.45 K/ul (4.8-10.8)
[2023-07-27] MEDS: BUDESONIDE 0.25 MG/2 ML VIAL (PULMICORT) INH SCH ×2 (07:33→19:38)
[2023-07-27 07:34] LABS: BUN Creatinine Ratio 11.8 (10-20); Calcium 7.5 mg/dl (8.6-10.3); Est GFR (African American) 36.9 ml/min; Est GFR (Non-African American) 31.8 ml/min; Magnesium 2.3 mg/dl (1.7-2.4); Phosphorus 1.9 mg/dl (2.5-4.9); Potassium 4.4 mmol/L (3.5-5.1)
[2023-07-27] MEDS: SUCRALFATE 1 GM/10 ML UDC PO SCH ×4 (08:39→19:21)
[2023-07-27] MEDS: UMECLIDINIUM/VILANTEROL 62.5/25MCG 7 PUFFS/INHALER INH SCH (08:39)
[2023-07-27] MEDS: ESCITALOPRAM OXALATE 10 MG TAB PO SCH (08:40)
[2023-07-27] MEDS: FLECAINIDE ACETATE 100 MG TABLET PO SCH (08:41)
[2023-07-27] MEDS: PANTOprazole 40 MG TAB PO SCH (08:44)
[2023-07-27] MEDS: OXYBUTYNIN CHLORIDE XL 5 MG TABCR PO SCH (08:44)
[2023-07-27] MEDS: lisinopril 2.5 MG TAB PO SCH (08:44)
[2023-07-27] MEDS: CEROVITE ADV FORMULA TAB PO SCH (08:44)
[2023-07-27] MEDS: VERAPAMIL HCL 240 MG TABCR PO SCH (08:45)
[2023-07-27] MEDS ORDERED: SODIUM PHOSPHATE 3 MMOL/1 ML INFUSION IV STA (09:55)
[2023-07-27] MEDS ORDERED: SODIUM PHOSPHATE 21 MMOL in SODIUM CHLORIDE 0.9% 500 ML IV ONE (10:15)
--- NOTE | 2023-07-27 13:10 | Hospitalist Progress Note ---
Date of Service July 27, 2023 Assessment & Plan (1) Anemia: (2) Weakness: (3) GI (gastrointestinal bleed): (4) PAF (paroxysmal atrial fibrillation): (5) Chronic respiratory failure with hypoxia: (6) COPD (chronic obstructive pulmonary disease): (7) FRANCIS (obstructive sleep apnea): (8) CKD (chronic kidney disease), stage III: (9) HTN (hypertension): (10) Tobacco dependence due to cigarettes: (11) Diverticulitis: (12) Colostomy in place: (13) UTI (urinary tract infection): Plan Pt is a 83yoF with PMHx significant for IBD noted on pathology in 2021, history of diverticulitis and resection of large bowel with colostomy, chronic hypoxemic respiratory failure, COPD, FRANCIS on 3L NC, paroxysmal atrial fibrillation on Xarelto, hypertension, CKD 3, depression who presented with melena and generalized weakness over the past 2 months in the setting of a GI Bleed. Acute blood loss anemia Iron Deficiency Anemia GI Bleed Generalized weakness- likely in setting of above Progressive weakness, lightheadedness and darkened ostomy output over the past 2 months Colonoscopy in 2021 with evidence of inflammatory changes, pathology noting chronic active colitis most consistent with IBD. Hgb 6.9 on admission (baseline hgb ~14), was transfused 1U pRBC with hgb of 7.7 Iron level of 13, supplemented with IV Venofer Vit b12 and folate level wnl s/p EGD on 07/26 with GI, appreciate recs -noted gastric ulcers (likely cause of melena), nonobstructing Schatzki ring, small hiatal hernia -biopsy/pathology of gastric ulcer noting only inflamed mucosa -NO NSAIDS, likely cause of gastric ulcers per GI -pantoprazole 40mg daily x 3 months -sucralfate 1gm QID x 10 days -hold anticoagulation (home Xarelto) for 1 week -repeat EGD in 3 months Monitor H/H with AM labs PT/OT orders placed Second degree/third degree Heart block On 07/27, pt with episode of dizziness and SOB, and increasing episodes of bradycardia. EKG obtained at that time concerning for second degree heart block, pt with also noted episodes of 3rd degree heart block on telemetry Stat trop slightly elevated at 15.1 Urgent echo ordered and pending. Labs at that time showed stable H/H with hgb at 7.8, normal mag and phos but elevated Cr from 1.52 earlier in the day to approximately 1.9. VBG with no pressing concern Chest xray with no acute concerns, noted known emphysema. Cardiology was consulted- appreciate recs -Holding home Flecainide and Verapamil -Pacer pads in place on pt -Attending Advertising Copywriter had discussion with pt about code status-she agreed to be a full code until issue resolves with med changes/possible pacemaker place ment. Will resume DNR/DNI status afterwards. PAF (paroxysmal atrial fibrillation) Pt previously in sinus rhythm on admission Treated outpt with flecainide and verapamil, currently on hold on 07/27 as noted above in setting of concerning heart block Anticoagulated with xarelto, holding for 1 week per GI recs above Continue to monitor on telemetry Complicated UTI UA on admission suggestive of infection Urine Cx currently pending Started on Aztreonam (pt with many antibiotic allergies) Follow Cx and narrow abx Hyperkalemia Potassium of 5.2 on admission Has since downtrended to normal limits Continue to monitor Chronic respiratory failure with hypoxia COPD (chronic obstructive pulmonary disease) FRANCIS (obstructive sleep apnea) Pt states that she uses 3L at baseline, both with rest and ambulation No longer uses CPAP at night Continue home Budesonide, Anoro inh, Duonebs PRN CKD (chronic kidney disease), stage III Cr 1.51 (Baseline Cr mid 1s) Continue to monitor with daily BMP HTN (hypertension) BP was elevated on admission Continue lisinopril, verapamil Tobacco dependence due to cigarettes Still smoking 3-4 cigarettes daily Encourage cessation IBD Diverticulitis Colostomy in place H/o colon resection in 2019 at [facility] in [place] Has colostomy bag in place Mood Continue home lexapro Urinary Urgency Continue oxybutynin Diet: HH DVT Ppx: holding Xarelto in setting of GI bleed Code status: FULL Dispo: admitted to PCU Admission and Anticipated Discharge Date Admission Date: July 25, 2023 Subjective Pt was seen multiple times. Initially earlier in the day was sitting at bedside and denied acute concerns. Stated that she had been up and walking around, and felt worn out. Not up to going home. Discussion of her code status Later notified by nursing that pt was having frequent episodes of bradycardia. Pt also dizzy when standing up or with ambulation. Notes increasing SOB but stable on 3L. Later again, notified by nursing that pt's son was concerned that she had had a stroke as he was noting slurred speech since Monday (about 48 hours prior). Review of Systems Review of Systems: All systems reviewed & are unremarkable except as noted in Subjective Physical Exam Physical Exam: General: Alert, oriented. No acute distress sitting in chair at bedside Psych: Appropriate mood and affect Neuro: CNII-XII grossly intact, No gross deficits HEENT: NC/AT, NC in nares Chest: Nontender to palpation. CV: Regular Resp: Breath sounds with scattered wheezing bilaterally, no increased effort of breathing at that time. Abdomen: Soft, colostomy bag in place Extremities: edema in lower extremities Results & Data Results & Data Vital Signs (Past 12 Hours) Vital Signs Temp Pulse Pulse Resp BP Pulse Ox O2 Del Method 07/27/23 08:00 72 07/27/23 08:00 Nasal Cannula 07/27/23 07:34 77 24 90 Nasal Cannula 07/27/23 07:20 36.9 C 76 24 155/68 H 95 Nasal Cannula 07/27/23 03:00 37.0 C 76 162/71 H O2 Flow Rate 07/27/23 08:00 07/27/23 08:00 3 07/27/23 07:34 3 07/27/23 07:20 3 07/27/23 03:00 Critical Care Time I spent a total of 70 minutes of critical care time obtaining a history and physical, ordering and reviewing stat EKG, chest xray and labs including a VBG, H/H, BMP, mag, phos, trop, managing second/third degree heart block, discussion of and followup of care with nursing, telemetry, heart specialist and pt's family (son). (1) Anemia Anemia type: unspecified type Qualified Code(s): D64.9 - Anemia, unspecified (3) GI (gastrointestinal bleed) GI bleed type/associated pathology: unspecified gastrointestinal hemorrhage type Qualified Code(s): K92.2 - Gastrointestinal hemorrhage, unspecified
[2023-07-27 14:32] LABS: Hematocrit (blood only) 25.8 % (37.0-47.0); Hemoglobin 7.8 g/dl (12.0-16.0)
[2023-07-27] MEDS ORDERED: FUROSEMIDE INJ 20 MG/2 ML VIAL IV ONE (14:48)
--- NOTE | 2023-07-27 14:52 | Cardiology Consultation ---
Date of Consultation July 27, 2023 Assessment & Plan (1) Atrioventricular (AV) dissociation: (2) PAF (paroxysmal atrial fibrillation): (3) GI (gastrointestinal bleed): (4) CKD (chronic kidney disease), stage III: Plan Impression: Medically complex, acutely ill 83-year-old female admitted for acute GI bleed. Carries a history of paroxysmal atrial fibrillation normally maintained in sinus rhythm with flecainide and verapamil. Intermittent third-degree AV block noted on telemetry starting at approximately 1120 on 07/27/2023. Plan: AV block disassociation: Hold flecainide and verapamil External pacing pads to be placed Xarelto currently on hold due to GI bleeding and significant anemia Discussed indications for permanent pacemaker, further recommendations pending Dr. Love's review of telemetry. Paroxysmal atrial fibrillation None seen on telemetry Plan as stated above. GI bleed: Underwent endoscopy on 07/26-- nonbleeding superficial gastric ulcers noted moderate in severity with no active bleeding. + Nonobstructing Schatzki ring and a small hiatal hernia noted. Treated with PPI and Carafate Received 1 unit of PRBCs and IV iron 07/26/2023 Management per primary service. CKD: Worsening renal dysfunction, serum creatinine 1.9 this afternoon. Potassium and magnesium within normal limits. Hold lisinopril Chest x-ray without evidence of hypervolemia Case to be discussed with Dr. Love. I spent a total of 45 minutes on the date of service in preparation, delivery, and documentation of the care provided to the patient excluding any time spent in the performance of separately billed services. JULIO Spencer Department of Cardiology, [facility] This chart was completed in part utilizing Speech Voice Recognition Software. Grammatical errors, random word insertions, pronoun errors, and incomplete sentences are an occasional consequence of this system due to software limitations, ambient noise, and hardware issues. Any formal questions or concerns about the content, text, or information contained within the body of this dictation should be directly addressed to the provider for clarification. Supervising Physician Co-Signing Physician Notes Patient was seen and personally examined. Full assessment as above Critically ill 83-year-old female with complex multiple medical issues which include paroxysmal atrial fibrillation controlled in sinus rhythm with combination of flecainide and Xarelto, hypertension, chronic obstructive lung disease admitted with acute GI bleed/melena with gastric ulcers discerned on e ndoscopy. Anticoagulation with Xarelto on hold Clinical course notable for anemia and worsening renal insufficiency Today on telemetry noted to have intermittent second-degree AV block and transient A-V dissociation on EKG. Episodes were associated with mild bradycardia and sensation of lightheadedness on ambulation Suspect multifactorial episode secondary to medications, increased vagal tone g iven recent GI bleed Recommendations: Discussed CODE STATUS. Patient agreeable to withholding DNI for bradycardia Will hold verapamil and flecainide but possibly reintroduce at lower dose in a.m. depending on renal function and blood pressure History of Present Illness Reason for Consultation: Bradycardia Heart block AV block Requesting Physician: Carrillo reynaga Attending Physician: Gabrielle Petersen MD History of Present Illness 83-year-old female who initially presented to [facility] emergency department due to generalized weakness x 2 months. Concern for GI bleed. Hemoglobin of 6.9 on admission. Xarelto was held. Transfused with 1 unit of PRBCs and started on IV iron transfusions. Hemoglobin of 7.8 this morning. Underwent endoscopy on 07/26-- nonbleeding superficial gastric ulcers noted moderate in severity with no active bleeding. + Nonobstructing Schatzki ring and a small hiatal hernia noted. Patient carries a history of paroxysmal atrial fibrillation and is on flecainide and verapamil. EKG performed this afternoon showed sinus rhythm with second-degree AV block, Mobitz type I--however in some leads there is concern for worsening AV disassociation Telemetry reviewed. Starting her at approximately 11:20 this morning heart rates have become progressively slower. In some instances rhythm appears to be second-degree AV block type I however at other times there is concern for third- degree heart block. Echocardiogram is pending Upon entrance into the room patient resting in bed. Notes that she is feeling poorly. Feels very "foggy" and fatigued. Notes lightheadedness. Vision is blurred at times. No palpitations. Denies any nausea or vomiting. She denies chest pain. Has chronic shortness of breath which is at her baseline. She is using supplemental oxygen therapy with stable saturations in the mid 90s--chronic. Blood pressures are stable. Primary outpatient career specialist: Dr. Savage Past medical history: Paroxysmal atrial dysrhythmias including atrial tach, SVT, and atrial fibrillation/flutter--controlled on flecainide, [id number] (age, female, HTN)-- anticoagulated with renal dose Xarelto, follows with EP, Dr. Barcenas Asymptomatic PVCs Hypertension COPD with oxygen dependence and ongoing tobacco abuse Dyslipidemia CKD stage III FRANCIS History of large bowel resection status post colostomy, 2019 Allergies Allergy/AdvReac Type Severity Reaction Status Date / Time amoxicillin Allergy Intermediate Rash Verified 07/25/23 16:04 cephalexin [From Keflex] Allergy Intermediate Rash Verified 07/25/23 16:04 cilostazol [From Pletal] Allergy Intermediate Rash Verified 07/25/23 16:04 ciprofloxacin [From Cipro] Allergy Intermediate Rash Verified 07/25/23 16:04 diltiazem Allergy Intermediate Rash Verified 07/25/23 16:04 felodipine Allergy Intermediate Rash Verified 07/25/23 16:04 meloxicam Allergy Intermediate Rash Verified 07/25/23 16:04 sulfamethoxazole Allergy Intermediate Rash Verified 07/25/23 16:04 [From Bactrim] trimethoprim [From Bactrim] Allergy Intermediate Rash Verified 07/25/23 16:04 Home Medications Medication Instructions Recorded Confirmed Type calcium carbonate 500 mg-vitamin 1 tab PO QPM 03/10/19 07/25/23 History D3 10 mcg (400 unit) tablet (Calcium 500 + D) escitalopram oxalate 10 mg tablet 10 mg PO QAM 03/10/19 07/25/23 History (Lexapro) ferrous sulfate 325 mg (65 mg 325 mg PO QAM 03/10/19 07/25/23 History iron) tablet verapamil 240 mg tablet,extended 240 mg PO QAM 03/10/19 07/25/23 History release vit C 250 mg-vit E 90 mg-zinc 40 1 tab PO QAM 03/10/19 07/25/23 History mg-copper 1 [id number] capsule (PreserVision AREDS-2) guaifenesin 600 mg tablet, 600 mg PO BID #60 tabs 07/16/20 07/25/23 Rx extended release 12 hr (Mucinex) ascorbic acid (vitamin C) 500 mg 500 mg PO QAM 12/08/20 07/25/23 History tablet (Vitamin C) cyclosporine 0.05 % eye drops in a 1 drp OPB BID 12/08/20 07/25/23 History dropperette (Restasis) flecainide 50 mg tablet 50 mg PO BID 12/08/20 07/25/23 History Portable Oxygen #1 ea 03/25/21 01/19/23 Rx rivaroxaban 15 mg tablet (Xarelto) 15 mg PO QPM 11/05/21 07/25/23 History Auto Titrating CPAP #1 ea 02/03/23 02/03/23 Rx CPAP Supplies #1 ea 02/03/23 02/03/23 Rx albuterol sulfate 90 mcg/actuation 1 inh inhalation QID PRN Shortness 02/03/23 07/25/23 Rx aerosol inhaler (ProAir HFA) Of Breath #8.5 grams budesonide 0.25 mg/2 mL suspension 0.25 mg (2 mL) inhalation BID #60 02/03/23 07/25/23 Rx for nebulization mL umeclidinium 62.5 mcg-vilanterol 1 inh inhalation QAM #60 ea 02/03/23 07/25/23 Rx 25 mcg/actuation powdr for inhalation (Anoro Ellipta) lisinopril 2.5 mg tablet 2.5 mg PO QAM 03/14/23 07/25/23 History mesalamine 1.2 gram tablet,delayed 3.6 g PO QAM 03/14/23 07/25/23 History release acetaminophen 325 mg tablet 325 mg PO Q6H PRN Pain 07/25/23 07/25/23 History (Tylenol) ipratropium 0.5 mg-albuterol 3 mg 3 ml inhalation Q4H PRN Wheezing 07/25/23 07/25/23 History (2.5 mg base)/3 mL nebulization soln omega-3 fatty acids 500 mg capsule 500 mg PO DAILY 07/25/23 07/25/23 History solifenacin 5 mg tablet 5 mg PO QAM 07/25/23 07/25/23 History triamcinolone acetonide 0.05 % 1 applic topical BID PRN AFFECTED 07/25/23 07/25/23 History topical ointment AREA Patient History Medical History (Updated 07/27/23 @ 15:49 by JULIO Tuttle) Encounter for pre-operative examination FRANCIS (obstructive sleep apnea) Osteoarthritis Chronic back pain Diverticular disease Skin cancer of nose 1970s--unsure which kind, removed in office On anticoagulant therapy xarelto daily On home oxygen therapy 4L N/C PRN PVD (peripheral vascular disease) PAF (paroxysmal atrial fibrillation) on xarelto/flecainide--follows with Dr. Savage Depression Macular degeneration Osteoporosis CKD (chronic kidney disease), stage III HTN (hypertension) HLD (hyperlipidemia) Multiple pulmonary nodules Tobacco dependence due to cigarettes 5 per day Chronic bronchitis COPD (chronic obstructive pulmonary disease) inhaler daily/prn, nebulizer daily/prn; continuous oxygen 3L Colostomy in place Diverticulitis Surgical History History of appendectomy taken out during resection of bowel History of colonoscopy History of tooth extraction History of cataract extraction with lens replacement bilateral History of tonsillectomy History of tubal ligation History of resection of large bowel (~10/2018) perforated bowel d/t diverticulitis History of creation of ostomy 10/2018 Family History Father Pancreatic cancer Mother Stroke Other No family history of adverse response to anesthesia Social History Smoking Status: Current every day smoker Tobacco Type: Cigarettes Age Started Using Tobacco: 22; Cigarettes Per Day: 3; Second Hand Exposure: Yes (hx growing up); Do You Dip or Chew Tobacco: No; Hx Alcohol Use: No Hx Substance Use: No Preferred Language: Estonian Communication Ability: Effective Rail Loader Required: No Beliefs That Will Affect Care: None marital status: / Current Living Situation: Alone Current Living Situation Comment: Mobile home, [address] Other Information That Helps Us Care for You: No ("I like [employer]") Feels Safe at Home: Yes Assistive Devices: Glasses and Oxygen - Continuous Review of Systems Review of Systems: All systems reviewed & are unremarkable except as noted in HPI & below Physical Exam Constitutional: + ill appearing; no acute distress Respiratory: + tachypneic; no cough Auscultation: + rhonchi and + wheezes Cardiovascular: Rate/Rhythm: regular rate and regular rhythm Heart Sounds: normal S1 and normal S2; no murmur (No murmur appreciated on exam) Vessels: no JVD Extremities: no edema Gastrointestinal (Abdomen): Colostomy present Skin: no rashes, warm and dry Psychiatric: Orientation: alert and oriented x 3 Results & Data Vital Signs (Past 12 Hours) Vital Signs Temp Pulse Pulse Resp BP Pulse Ox O2 Del Method 07/27/23 11:15 36.6 C 81 22 119/70 94 Nasal Cannula 07/27/23 08:00 72 07/27/23 08:00 Nasal Cannula 07/27/23 07:34 77 24 90 Nasal Cannula 07/27/23 07:20 36.9 C 76 24 155/68 H 95 Nasal Cannula 07/27/23 03:00 37.0 C 76 162/71 H O2 Flow Rate 07/27/23 11:15 3 07/27/23 08:00 07/27/23 08:00 3 07/27/23 07:34 3 07/27/23 07:20 3 07/27/23 03:00 Laboratory Results CBC 07/27/23 07/27/23 Range/Units 06:57 14:16 WBC 9.45 (4.8-10.8) K/ul RBC 2.69 L (4.20-5.40) M/uL Hgb 7.4 L 7.8 L (12.0-16.0) g/dl Hct 25.3 L 25.8 L (37.0-47.0) % Plt Count 252 (130-400) K/uL Comprehensive Metabolic Panel 07/27/23 07/27/23 Range/Units 06:57 14:17 Sodium 139 137 (136-145) mmol/L Potassium 4.4 4.8 (3.5-5.1) mmol/L Chloride 110 H 108 H (98-107) mmol/L Carbon Dioxide 26 23 (21-32) mmol/L BUN 18 23 (6-23) mg/dl Creatinine 1.52 H 1.91 H D (0.6-1.2) mg/dl Glucose 120 H 148 H (70-99(Fasting)) mg/dl Calcium 7.5 L 7.5 L (8.6-10.3) mg/dl Intake and Output 07/27/23 07/27/23 07/27/23 06:59 14:59 22:59 Intake Total 210 / 694.667 100 / 100 Output Total 600 / 600 Balance -390 / 94.667 100 / 100 Intake: IV 210 / 454.667 100 / 100 Aztreonam 1,000 mg In Dextrose 100 / 200 100 / 100 5% Mini-B 100 ml @ 100 mls/hr IV Q8H [facility] Rx#:[id number] Iron Sucrose 200 mg In 0.9 % 110 / 110 Sodium Chloride 100 ml @ 220 mls/hr IV NOW ONE Rx#:[id number] Output: Urine Amount (Catheter) 600 / 600 External 600 / 600 Other: Weight 77.3 kg Diagnostic Findings Outpatient echocardiogram report February 17, 2022: A small anterior loculated pericardial effusion is present. The qualitative LV ejection fraction is 60-64% (normal). The LV wall thickness is mildly increased (concentric). The left ventricular wall motion is normal. The left ventricular diastolic function is mildly abnormal (grade I). Mild mitral regurgitation is present. Mild tricuspid regurgitation is present. There is no evidence of pulmonary hypertension. Compared to prior study of 10/06/2020, there is no significant change. (3) GI (gastrointestinal bleed) GI bleed type/associated pathology: unspecified gastrointestinal hemorrhage type Qualified Code(s): K92.2 - Gastrointestinal hemorrhage, unspecified
[2023-07-27 14:56] LABS: Calcium 7.5 mg/dl (8.6-10.3); Creatinine Clr Calc Pharmacy 20.7 ml/min; Est GFR (Non-African American) 24.1 ml/min; Magnesium 2.1 mg/dl (1.7-2.4); Phosphorus 2.5 mg/dl (2.5-4.9); Potassium 4.8 mmol/L (3.5-5.1)
--- NOTE | 2023-07-27 14:56 | XRay Report ---
XR chest 1V portable CLINICAL HISTORY: Shortness of breath. COMPARISON STUDY: Chest CT October 04, 2022. Chest radiograph July 25, 2023. FINDINGS: There is no pneumothorax or pleural effusion. Opacity along the left heart border represent s epicardial fat pad. Mild cardiomegaly is unchanged. Interstitial thickening is similar to prior exa ms. This is likely chronic. No evidence for pulmonary edema. No consolidation to suggest pneumonia. U nderlying emphysema is better depicted on prior CT IMPRESSION: No acute cardiopulmonary findings. Emphysema. ACT 112: Negative or not required by law. Electronically signed by: Oh Townsend M.D. 07/27/2023 2:54 PM
[2023-07-27] MEDS ORDERED: AZTREONAM 2,000 MG in DEXTROSE 5% MINI-B 100 ML IV SCH (15:00)
[2023-07-27 15:15] LABS: Base Excess VBG -2.4 mEq/L; HCO3 VBG 23 mmol/L; Oxygen Saturation VBG < 60.0 %; PCO2 VBG 42 mmHg (38-50); PO2 VBG 20 mmHg; pH VBG 7.35 (7.36-7.41)
[2023-07-27] MEDS ORDERED: SODIUM CHLORIDE 0.9% 1,000 ML IV SCH (17:30)
--- NOTE | 2023-07-28 02:15 | CT Scan Report ---
Exam(s): CT HEAD Without Contrast EXAM: CT Head Without Intravenous Contrast CLINICAL HISTORY: Reason for exam: slurred speech. TECHNIQUE: Axial computed tomography images of the head/brain without intravenous contrast. CTDI is 39 mGy and DLP is 57.75 mGy-cm. Automated exposure control was utilized for the study. A dose lowering technique was utilized adhering to the principles of ALARA. COMPARISON: No relevant prior studies available. FINDINGS: The study is suboptimal secondary to motion artifact. Brain: Moderate nonspecific white matter changes. No edema. Small left choroid fissure cyst. Ventricles: Unremarkable. No ventriculomegaly. Bones/joints: Unremarkable. No acute fracture. Soft tissues: Bilateral lens replacements. Sinuses: Unremarkable as visualized. No acute sinusitis. Mastoid air cells: Unremarkable as visualized. No mastoid effusion. IMPRESSION: No evidence of acute intracranial pathology. Electronically signed by: Vannessa Castle MD 07/28/23 02:14 AM
[2023-07-28 04:29] LABS: Appearance Urine Cloudy (Clear); Bacteria Urine Automated Negative (Negative); Bilirubin Urine Negative (Negative); Blood Urine 2+ (Negative); Color Urine Yellow; Glucose Urine UA Negative (Negative); Ketones Urine Negative (Negative); Leukocyte Esterase Urine 3+ (Negative); Nitrite Urine Positive (Negative); Protein Urine 1+ (Negative); RBC Urine Automated 0-4 /hpf (0-4); Specific Gravity Urine 1.011 (1.000-1.030); Urobilinogen Urine Negative (Negative); WBC Urine Automated >30 /hpf (0-5); pH Urine 5.5 (4.5-7.5)
[2023-07-28] MEDS: AZTREONAM 1,000 MG in DEXTROSE 5% MINI-B 100 ML IV SCH ×2 (06:02→17:07)
[2023-07-28 06:35] LABS: Hematocrit (blood only) 23.6 % (37.0-47.0); Hemoglobin 7.1 g/dl (12.0-16.0); Mean Corpuscular Hgb Conc 30.1 g/dL (32.0-36.0); Mean Corpuscular Volume 92.9 fL (80.0-100.0); Mean Platelet Volume 8.9 fL (9.4-12.4); Platelet Count 259 K/uL (130-400); RDW Coefficient of Variation 19.5 % (11.5-14.5); Red Blood Count 2.54 M/uL (4.20-5.40); White Blood Count 9.57 K/ul (4.8-10.8)
[2023-07-28 06:49] LABS: BUN Creatinine Ratio 12.2 (10-20); Calcium 7.6 mg/dl (8.6-10.3); Creatinine Clr Calc Pharmacy 24.6 ml/min; Est GFR (African American) 33.6 ml/min; Magnesium 2.1 mg/dl (1.7-2.4); Phosphorus 2.4 mg/dl (2.5-4.9); Potassium 4.2 mmol/L (3.5-5.1)
[2023-07-28 06:54] LABS: Troponin I High Sensitivity 17.1 pg/ml (0-14)
[2023-07-28] MEDS: BUDESONIDE 0.25 MG/2 ML VIAL (PULMICORT) INH SCH ×2 (07:16→20:10)
--- NOTE | 2023-07-28 07:32 | Cardiology Progress Note ---
Date of Service July 28, 2023 Assessment & Plan (1) Atrioventricular (AV) dissociation: (2) PAF (paroxysmal atrial fibrillation): (3) GI (gastrointestinal bleed): (4) CKD (chronic kidney disease), stage III: Plan Impression: Medically complex, acutely ill 83-year-old female admitted for acute GI bleed. Carries a history of paroxysmal atrial fibrillation normally maintained in sinus rhythm with flecainide and verapamil. Intermittent third-degree AV block noted on telemetry starting at approximately 1120 on 07/27/2023. Rhythm improved with holding of flecainide and verapamil. Plan: AV block disassociation: Improved on telemetry-- now showing SR with a long 1st degree AVB. Continue to hold flecainide and verapamil-- monitor for PAF/AV disassociation on telemetry. Monitor ON when off unit. External pacing pads in place Xarelto currently on hold due to GI bleeding and significant anemia Discussed indications for permanent pacemaker, further recommendations pending clinical course. Paroxysmal atrial fibrillation None seen on telemetry Plan as stated above. GI bleed: Underwent endoscopy on 07/26-- nonbleeding superficial gastric ulcers noted moderate in severity with no active bleeding. + Nonobstructing Schatzki ring and a small hiatal hernia noted. Treated with PPI and Carafate Received 1 unit of PRBCs and IV iron 07/26/2023 Management per primary service. CKD: Worsening renal dysfunction, serum creatinine 1.9>> Lisinopril held >> 1.6 this am. BP initially elevated this am, but 120 sbp noted on repeat. Chest x-ray without evidence of hypervolemia Case discussed with Dr. Love. I spent a total of 30 minutes on the date of service in preparation, delivery, and documentation of the care provided to the patient excluding any time spent in the performance of separately billed services. JULIO Spencer Department of Cardiology, [facility] This chart was completed in part utilizing Speech Voice Recognition Software. Grammatical errors, random word insertions, pronoun errors, and incomplete sentences are an occasional consequence of this system due to software limitations, ambient noise, and hardware issues. Any formal questions or concerns about the content, text, or information contained within the body of this dictation should be directly addressed to the provider for clarification. Admission and Anticipated Discharge Date Admission Date: July 25, 2023 Supervising Physician Co-Signing Physician Notes Patient seen and personally examined, chart, medications reviewed. Clinically appears improved no further arrhythmias or high degree AV block. No overt bleeding. Feels fatigued and weak. Remains significantly anemic Recommendations: Continue to hold verapamil and flecainide. Maintain telemetry. Low threshold for further transfusion Blood pressures trending higher as expected off verapamil. Will resume lisinop ril today Subjective Medically complex acutely ill 83-year-old female initially admitted to [facility] for acute GI bleed. Underwent endoscopy on 07/26 revealing nonbleeding superficial gastric ulcers. Hemoglobin as low as 6.9, received 1 unit of PRBCs and an iron transfusion--Xarelto on hold. Carries a history of paroxysmal atrial fibrillation and normally maintained in sinus rhythm with flecainide and verapamil. Telemetry revealed AV disassociation with intermittent third-degree AV block starting on 07/27/2023 at approximately 11:20 AM. Patient symptomatic with lightheadedness and generalized fatigue. 07/27/2023: Flecainide and verapamil held Xarelto previously on hold due to GI bleeding and significant anemia Worsening renal insufficiency, lisinopril held. 07/28/2023: Upon entrance into the room patient resting in bed. Has been up and to the bathroom. Continues to have lightheadedness- but orthostatics are negative. Per nursing- there has been no changes on temetry/heart rates with activity. Patient continues to feel fatigued and weak. No chest pain. SOB at baseline. Labs: Hemoglobin remains low at 7.1, slight improvement in creatinine from 1.9>>1.6 Tele: SR with a long first degree AVB, 60-70s EKG:SR 1st degree AVB 78 bpm Physical Exam Constitutional: + ill appearing; no acute distress Respiratory: normal respiratory effort and able to speak in complete sentences; no cough Auscultation: + rhonchi and + wheezes Cardiovascular: Rate/Rhythm: regular rate and regular rhythm Heart Sounds: normal S1 and normal S2; no murmur (No murmur appreciated on exam) Vessels: no JVD Extremities: no edema Skin: no rashes, warm and dry Psychiatric: Orientation: alert and oriented x 3 Results & Data Vital Signs (Past 12 Hours) Vital Signs Temp Pulse Resp BP Pulse Ox O2 Del Method O2 Flow Rate 07/28/23 03:54 37.2 C 71 18 171/73 H 91 Nasal Cannula 3 07/27/23 22:16 36.7 C 70 18 140/47 L 96 Nasal Cannula 3 07/27/23 21:34 Nasal Cannula 4 07/27/23 20:38 36.7 C 69 18 140/47 L 96 Nasal Cannula 3 07/27/23 19:46 36.5 C 78 18 135/57 L 94 Nasal Cannula 3 07/27/23 19:38 73 20 93 Nasal Cannula 3 Laboratory Results Cardiac Enzymes 07/27/23 07/28/23 Range/Units 15:00 06:13 Troponin I High Sens 15.1 H 17.1 H (0-14) pg/ml CBC 07/27/23 07/28/23 Range/Units 14:16 06:13 WBC 9.57 (4.8-10.8) K/ul RBC 2.54 L (4.20-5.40) M/uL Hgb 7.8 L 7.1 L (12.0-16.0) g/dl Hct 25.8 L 23.6 L (37.0-47.0) % Plt Count 259 (130-400) K/uL Comprehensive Metabolic Panel 07/27/23 07/28/23 Range/Units 14:17 06:13 Sodium 137 141 (136-145) mmol/L Potassium 4.8 4.2 (3.5-5.1) mmol/L Chloride 108 H 113 H (98-107) mmol/L Carbon Dioxide 23 24 (21-32) mmol/L BUN 23 20 (6-23) mg/dl Creatinine 1.91 H D 1.64 H (0.6-1.2) mg/dl Glucose 148 H 95 (70-99(Fasting)) mg/dl Calcium 7.5 L 7.6 L (8.6-10.3) mg/dl Intake and Output 07/27/23 07/28/23 07/28/23 22:59 06:59 14:59 Intake Total 100 / 800.8 1100 / 1100 Output Total 1000 / 1600 550 / 1600 Balance -900 / -799.2 -550 / -799.2 1100 / 1100 Intake: IV 100 / 560.8 1100 / 1100 Aztreonam 1,000 mg In Dextrose 100 / 100 100 / 100 5% Mini-B 100 ml @ 100 mls/hr IV Q12H [facility] Rx#:[id number] Sodium Chloride 0.9% 1,000 ml @ 1000 / 1000 75 mls/hr IV .[id number] [facility] Rx#: [id number] Sodium Phosphate 21 mmol In 0 / 360.8 Sodium Chloride 0.9% 500 ml @ 88 mls/hr IV ONE ONE Rx#: [id number] Output: Urine 600 / 1200 550 / 1200 Urine/Stool Mix 400 / 400 Other: Other Intake Source Npo Weight 79.8 kg Weight Measurement Method Built in [facility] (3) GI (gastrointestinal bleed) GI bleed type/associated pathology: unspecified gastrointestinal hemorrhage type Qualified Code(s): K92.2 - Gastrointestinal hemorrhage, unspecified
[2023-07-28] MEDS ORDERED: VERAPAMIL HCL 120 MG TABCR PO SCH (09:00)
[2023-07-28] MEDS: ESCITALOPRAM OXALATE 10 MG TAB PO SCH (09:50)
[2023-07-28] MEDS: SUCRALFATE 1 GM/10 ML UDC PO SCH ×4 (09:50→20:07)
[2023-07-28] MEDS: OXYBUTYNIN CHLORIDE XL 5 MG TABCR PO SCH (09:51)
[2023-07-28] MEDS: CEROVITE ADV FORMULA TAB PO SCH (09:51)
[2023-07-28] MEDS: UMECLIDINIUM/VILANTEROL 62.5/25MCG 7 PUFFS/INHALER INH SCH (09:52)
[2023-07-28] MEDS: PANTOprazole 40 MG TAB PO SCH (09:52)
[2023-07-28] MEDS: POT PHOSPHATE MONOBASIC W/ SOD TAB PO SCH ×3 (12:41→20:07)
--- NOTE | 2023-07-28 13:33 | Hospitalist Progress Note ---
Date of Service July 28, 2023 Assessment & Plan (1) Anemia: (2) Weakness: (3) GI (gastrointestinal bleed): (4) PAF (paroxysmal atrial fibrillation): (5) Chronic respiratory failure with hypoxia: (6) COPD (chronic obstructive pulmonary disease): (7) FRANCIS (obstructive sleep apnea): (8) CKD (chronic kidney disease), stage III: (9) HTN (hypertension): (10) Tobacco dependence due to cigarettes: (11) Diverticulitis: (12) Colostomy in place: (13) UTI (urinary tract infection): Plan Pt is a 83yoF with PMHx significant for IBD noted on pathology in 2021, history of diverticulitis and resection of large bowel with colostomy, chronic hypoxemic respiratory failure, COPD, FRANCIS on 3L NC, paroxysmal atrial fibrillation on Xarelto, hypertension, CKD 3, depression who presented with melena and generalized weakness over the past 2 months in the setting of a GI Bleed. Acute blood loss anemia Iron Deficiency Anemia GI Bleed Generalized weakness- likely in setting of above Progressive weakness, lightheadedness and darkened ostomy output over the past 2 months Colonoscopy in 2021 with evidence of inflammatory changes, pathology noting chronic active colitis most consistent with IBD. Hgb 6.9 on admission (baseline hgb ~14), was transfused 1U pRBC with hgb of 7.7 Iron level of 13, supplemented with IV Venofer Vit b12 and folate level wnl s/p EGD on 07/26 with GI, appreciate recs -noted gastric ulcers (likely cause of melena), nonobstructing Schatzki ring, small hiatal hernia -biopsy/pathology of gastric ulcer noting only inflamed mucosa -NO NSAIDS, likely cause of gastric ulcers per GI -pantoprazole 40mg daily x 3 months -sucralfate 1gm QID x 10 days -hold anticoagulation (home Xarelto) for 1 week -repeat EGD in 3 months Monitor H/H with AM labs PT/OT orders placed 07/28-hgb trending down. closely monitor, will likely need another transfusion. Second degree/third degree Heart block On 07/27, pt with episode of dizziness and SOB, and increasing episodes of bradycardia. EKG obtained at that time concerning for second degree heart block, pt with also noted episodes of 3rd degree heart block on telemetry Stat trop slightly elevated at 15.1 Urgent echo ordered and pending. Labs at that time showed stable H/H with hgb at 7.8, normal mag and phos but elevated Cr from 1.52 earlier in the day to approximately 1.9. VBG with no pressing concern Chest xray with no acute concerns, noted known emphysema. Cardiology was consulted- appreciate recs -Holding home Flecainide and Verapamil -Pacer pads in place on pt -Attending Chemist Inorganic had discussion with pt about code status-she agreed t o be a full code until issue resolves with med changes/possible pacemaker placement. Will resume DNR/DNI status afterwards. 07/28- no further episodes with meds held, appreciate further cardiology recs. PAF (paroxysmal atrial fibrillation) Pt previously in sinus rhythm on admission Treated outpt with flecainide and verapamil, currently on hold on 07/27 as noted above in setting of concerning heart block Anticoagulated with xarelto, holding for 1 week per GI recs above Continue to monitor on telemetry Complicated UTI UA on admission suggestive of infection Urine Cx currently pending Started on Aztreonam (pt with many antibiotic allergies) Follow Cx and narrow abx Hyperkalemia Potassium of 5.2 on admission Has since downtrended to normal limits Continue to monitor Hypophosphatemia repleted as needed Chronic respiratory failure with hypoxia COPD (chronic obstructive pulmonary disease) FRANCIS (obstructive sleep apnea) Pt states that she uses 3L at baseline, both with rest and ambulation No longer uses CPAP at night Continue home Budesonide, Anoro inh, Duonebs PRN CKD (chronic kidney disease), stage III Cr 1.51 (Baseline Cr mid 1s) Continue to monitor with daily BMP HTN (hypertension) BP was elevated on admission Continue lisinopril, verapamil Tobacco dependence due to cigarettes Still smoking 3-4 cigarettes daily Encourage cessation IBD Diverticulitis Colostomy in place H/o colon resection in 2019 at [facility] in [place] Has colostomy bag in place Mood Continue home lexapro Urinary Urgency Continue oxybutynin Diet: HH DVT Ppx: holding Xarelto in setting of GI bleed Code status: FULL Dispo: admitted to PCU Admission and Anticipated Discharge Date Admission Date: July 25, 2023 Subjective Pt was seen in the AM. No further acute events overnight. Stated that she was unchanged in terms of symptoms, still on NC. Review of Systems Review of Systems: All systems reviewed & are unremarkable except as noted in Subjective Physical Exam Physical Exam: General: Alert, oriented. No acute distress sitting in chair at bedside Psych: Appropriate mood and affect Neuro: CNII-XII grossly intact, No gross deficits HEENT: NC/AT, NC in nares Chest: Nontender to palpation. CV: Regular Resp: Breath sounds clear bilaterally, no increased effort of breathing at that time. Abdomen: Soft, colostomy bag in place Extremities: edema in lower extremities Results & Data Results & Data Vital Signs (Past 12 Hours) Vital Signs Temp Pulse Pulse Resp BP Pulse Ox O2 Del Method 07/28/23 11:38 36.6 C 87 20 165/68 H 97 Nasal Cannula 07/28/23 08:00 Nasal Cannula 07/28/23 08:00 79 07/28/23 08:00 36.5 C 94 Nasal Cannula 07/28/23 03:54 37.2 C 71 18 171/73 H 91 Nasal Cannula O2 Flow Rate 07/28/23 11:38 3 07/28/23 08:00 3 07/28/23 08:00 07/28/23 08:00 3 07/28/23 03:54 3 (1) Anemia Anemia type: unspecified type Qualified Code(s): D64.9 - Anemia, unspecified (3) GI (gastrointestinal bleed) GI bleed type/associated pathology: unspecified gastrointestinal hemorrhage type Qualified Code(s): K92.2 - Gastrointestinal hemorrhage, unspecified
--- NOTE | 2023-07-28 17:40 | Electrocardiogram Report ---
Test Reason : Blood Pressure : / mmHG Vent. Rate : 078 BPM Atrial Rate : 078 BPM P-R Int : 300 ms QRS Dur : 078 ms QT Int : 364 ms P-R-T Axes : 080 019 086 degrees QTc Int : 414 ms Poor data quality, interpretation may be adversely affected Sinus rhythm with 1st degree A-V block Low voltage QRS Nonspecific ST and T wave abnormality Abnormal ECG When compared with ECG of 27-JUL-2023 14:27, (unconfirmed) Sinus rhythm is no longer with 3rd degree AV block Confirmed by Izaiah Sarabia ([id number]) on 07/28/2023 5:40:19 PM Referred By: REFERRED SELF Confirmed By:Florencio Sarabia
--- NOTE | 2023-07-28 17:40 | Electrocardiogram Report ---
Test Reason : Blood Pressure : / mmHG Vent. Rate : 056 BPM Atrial Rate : 074 BPM P-R Int : 000 ms QRS Dur : 064 ms QT Int : 410 ms P-R-T Axes : 000 034 090 degrees QTc Int : 395 ms Sinus rhythm with 3rd degree AV block Low voltage QRS Abnormal ECG When compared with ECG of 25-JUL-2023 14:25, Sinus rhythm is now with 3rd degree AV block Nonspecific T wave abnormality now evident in Lateral leads Confirmed by Izaiah Sarabia ([id number]) on 07/28/2023 5:39:59 PM Referred By: REFERRED SELF Confirmed By:Florencio Sarabia
[2023-07-29] MEDS ORDERED: SODIUM CHLORIDE 0.9% 250 ML IV PRN ×2 (02:27→08:04)
[2023-07-29 03:15] LABS: Hematocrit (blood only) 23.7 % (37.0-47.0); Mean Corpuscular Hemoglobin 27.7 pg (25.0-34.0); Mean Corpuscular Hgb Conc 29.5 g/dL (32.0-36.0); Mean Corpuscular Volume 93.7 fL (80.0-100.0); Platelet Count 242 K/uL (130-400); RDW Coefficient of Variation 19.3 % (11.5-14.5); RDW Standard Deviation 65.6 fL (36.4-46.3); Red Blood Count 2.53 M/uL (4.20-5.40); White Blood Count 7.88 K/ul (4.8-10.8)
[2023-07-29 03:31] LABS: BUN Creatinine Ratio 14.3 (10-20); Calcium 7.4 mg/dl (8.6-10.3); Creatinine Clr Calc Pharmacy 26.2 ml/min; Est GFR (African American) 36.3 ml/min; Est GFR (Non-African American) 31.3 ml/min; Magnesium 1.9 mg/dl (1.7-2.4); Phosphorus 3.3 mg/dl (2.5-4.9)
[2023-07-29] MEDS: AZTREONAM 1,000 MG in DEXTROSE 5% MINI-B 100 ML IV SCH (05:14)
--- NOTE | 2023-07-29 06:45 | Cardiology Progress Note ---
Date of Service July 29, 2023 Assessment & Plan (1) Atrioventricular (AV) dissociation: (2) PAF (paroxysmal atrial fibrillation): (3) GI (gastrointestinal bleed): (4) CKD (chronic kidney disease), stage III: Plan Impression: Medically complex, acutely ill 83-year-old female admitted for acute GI bleed. Carries a history of paroxysmal atrial fibrillation normally maintained in sinus rhythm with flecainide and verapamil. Intermittent third-degree AV block noted on telemetry starting at approximately 1120 on 07/27/2023. Rhythm improved with holding of flecainide and verapamil. Plan: AV block disassociation: Improved on telemetry-- now showing SR with a long 1st degree AVB. Continue to hold flecainide and verapamil-- monitor for PAF/AV disassociation on telemetry. Monitor ON when off unit. Xarelto currently on hold due to GI bleeding and significant anemia Discussed indications for permanent pacemaker, no indication at this time. Paroxysmal atrial fibrillation None seen on telemetry Plan as stated above. GI bleed: Underwent endoscopy on 07/26-- nonbleeding superficial gastric ulcers noted moderate in severity with no active bleeding. + Nonobstructing Schatzki ring and a small hiatal hernia noted. Treated with PPI and Carafate Received 1 unit of PRBCs and IV iron 07/26/2023, Low threshold for further transfusion Management per primary service. CKD/HTN: LOPEZ noted this admission with a serum creatinine of 1.9 >> Lisinopril held >> 1.6 >> lisinopril resumed>> 1.54 Consider titration of lisinopril to 5 mg daily pending clinical response. Case discussed with Dr. Pittman. I spent a total of 30 minutes on the date of service in preparation, delivery, and documentation of the care provided to the patient excluding any time spent in the performance of separately billed services. JULIO Spencer Department of Cardiology, [facility] This chart was completed in part utilizing Speech Voice Recognition Software. Grammatical errors, random word insertions, pronoun errors, and incomplete sent ences are an occasional consequence of this system due to software limitations, ambient noise, and hardware issues. Any formal questions or concerns about the content, text, or information contained within the body of this dictation should be directly addressed to the provider for clarification. Admission and Anticipated Discharge Date Admission Date: July 25, 2023 Supervising Physician Co-Signing Physician Notes Attending attestation: I have reviewed the advanced practitioner's documentation, and agree with, and take responsibility for the plan of care. Subjective: pt only complaints of fatigue. SR in the 60s with first degree AV block noted on telemetry last night and again this am. Exam: CV: regular rhythm, no murmur, no edema Data: Hgb 7 g/dl Impression/ Plan: Problems as noted above. -hold anticoagulation -Holding verapamil and flecainide. -Will consider reintroducing verapamil at lower dose as hospital stay develops. -BP improved on lisinopril. I spent a total of 20 minutes coordinating, documenting, and providing care for this patient excluding time spent in the performance of separately billed services or time spent by another provider. Zane Pittman, DO Subjective Medically complex acutely ill 83-year-old female initially admitted to [facility] for acute GI bleed. Underwent endoscopy on 07/26 revealing nonbleeding superficial gastric ulcers. Hemoglobin as low as 6.9, received 1 unit of PRBCs and an iron transfusion--Xarelto on hold. Carries a history of paroxysmal atrial fibrillation and normally maintained in sinus rhythm with flecainide and verapamil. Telemetry revealed AV disassociation with intermittent third-degree AV block starting on 07/27/2023 at approximately 11:20 AM. Patient symptomatic with lightheadedness and generalized fatigue. 07/27/2023: Flecainide and verapamil held Xarelto previously on hold due to GI bleeding and significant anemia Worsening renal insufficiency, lisinopril held. 07/28/2023: Improvement in rhythm overnight with telemetry revealing sinus rhythm with a long first-degree. No further evidence of A-V dissociation/complete heart block since holding of antiarrhythmic therapy. Blood pressures are trending on the higher side, lisinopril was resumed. Echocardiogram: Hyperdynamic LVEF of 65 to 70% without wall motion abnormalities. Grade 1 diastolic dysfunction. Mild MR, trace TR. 07/29/2023: Upon entrance into the room patient asleep in bed. Woke easily. Continues to have mild lightheadedness- but orthostatics were negative. No chest pain. SOB at baseline. Labs: Hemoglobin remains low at 7.0, slight improvement in creatinine from 1.9>>1.6>>1.54 Tele: SR with a long first degree AVB, 50-80s EKG:SR 1st degree AVB 71 bpm Review of Systems Review of Systems: All systems reviewed & are unremarkable except as noted in HPI & below Physical Exam Constitutional: no acute distress Respiratory: normal respiratory effort and able to speak in complete sentences; no cough and not tachypneic Auscultation: + diminished lung sounds and + wheezes Cardiovascular: Rate/Rhythm: regular rate and regular rhythm Heart Sounds: normal S1 and normal S2; no murmur (No murmur appreciated on exam) Vessels: no JVD Extremities: no edema Skin: no rashes, warm and dry Psychiatric: Orientation: alert and oriented x 3 Results & Data Vital Signs (Past 12 Hours) Vital Signs Temp Pulse Pulse Resp BP Pulse Ox O2 Del Method 07/29/23 03:44 37.1 C 75 22 145/61 H 91 Nasal Cannula 07/28/23 22:39 73 07/28/23 22:33 37.0 C 75 18 154/65 H 94 Nasal Cannula 07/28/23 20:11 82 20 93 Nasal Cannula 07/28/23 19:45 Nasal Cannula 07/28/23 19:07 37.2 C 72 18 132/56 L 95 Nasal Cannula O2 Flow Rate 07/29/23 03:44 3.0 07/28/23 22:39 07/28/23 22:33 3.0 07/28/23 20:11 3 07/28/23 19:45 3 07/28/23 19:07 2.5 Laboratory Results CBC 07/29/23 Range/Units 02:54 WBC 7.88 (4.8-10.8) K/ul RBC 2.53 L (4.20-5.40) M/uL Hgb 7.0 L (12.0-16.0) g/dl Hct 23.7 L (37.0-47.0) % Plt Count 242 (130-400) K/uL Comprehensive Metabolic Panel 07/29/23 Range/Units 02:54 Sodium 139 (136-145) mmol/L Potassium 4.0 (3.5-5.1) mmol/L Chloride 111 H (98-107) mmol/L Carbon Dioxide 24 (21-32) mmol/L BUN 22 (6-23) mg/dl Creatinine 1.54 H (0.6-1.2) mg/dl Glucose 90 (70-99(Fasting)) mg/dl Calcium 7.4 L (8.6-10.3) mg/dl Intake and Output 07/28/23 07/29/23 07/29/23 22:59 06:59 14:59 Intake Total 490 / 2090 100 / 2090 Output Total 525 / 726 Balance -35 / 1364 100 / 1364 Intake: IV 100 / 1300 100 / 1300 Aztreonam 1,000 mg In Dextrose 100 / 300 100 / 300 5% Mini-B 100 ml @ 100 mls/hr IV Q12H [facility] Rx#:[id number] Oral 390 / 790 Output: Urine 525 / 725 Other: Other Intake Source SIPS # Unmeasured Voids 2 Weight 77.7 kg Weight Measurement Method Built in [facility] (3) GI (gastrointestinal bleed) GI bleed type/associated pathology: unspecified gastrointestinal hemorrhage type Qualified Code(s): K92.2 - Gastrointestinal hemorrhage, unspecified
[2023-07-29] MEDS: BUDESONIDE 0.25 MG/2 ML VIAL (PULMICORT) INH SCH ×2 (07:13→19:44)
[2023-07-29] MEDS: ALBUT/IPRATROP 3MG/0.5MG NEB 3 ML VIAL INH PRN (07:15)
[2023-07-29] MEDS: lisinopril 2.5 MG TAB PO SCH (07:59)
[2023-07-29] MEDS: POT PHOSPHATE MONOBASIC W/ SOD TAB PO SCH ×4 (07:59→22:29)
[2023-07-29] MEDS: SUCRALFATE 1 GM/10 ML UDC PO SCH ×4 (08:00→22:29)
[2023-07-29] MEDS: ESCITALOPRAM OXALATE 10 MG TAB PO SCH (08:00)
[2023-07-29] MEDS: UMECLIDINIUM/VILANTEROL 62.5/25MCG 7 PUFFS/INHALER INH SCH (08:00)
[2023-07-29] MEDS: PANTOprazole 40 MG TAB PO SCH (08:00)
[2023-07-29] MEDS: OXYBUTYNIN CHLORIDE XL 5 MG TABCR PO SCH (08:00)
[2023-07-29] MEDS: CEROVITE ADV FORMULA TAB PO SCH (08:00)
--- NOTE | 2023-07-29 08:23 | Hospitalist Progress Note ---
Date of Service July 29, 2023 Assessment & Plan (1) Anemia: (2) Weakness: (3) GI (gastrointestinal bleed): (4) PAF (paroxysmal atrial fibrillation): (5) Chronic respiratory failure with hypoxia: (6) COPD (chronic obstructive pulmonary disease): (7) FRANCIS (obstructive sleep apnea): (8) CKD (chronic kidney disease), stage III: (9) HTN (hypertension): (10) Tobacco dependence due to cigarettes: (11) Diverticulitis: (12) Colostomy in place: (13) UTI (urinary tract infection): Plan Pt is a 83yoF with PMHx significant for IBD noted on pathology in 2021, history of diverticulitis and resection of large bowel with colostomy, chronic hypoxemic respiratory failure, COPD, FRANCIS on 3L NC, paroxysmal atrial fibrillation on Xarelto, hypertension, CKD 3, depression who presented with melena and generalized weakness over the past 2 months in the setting of a GI Bleed. Acute blood loss anemia Iron Deficiency Anemia GI Bleed Generalized weakness- likely in setting of above Progressive weakness, lightheadedness and darkened ostomy output over the past 2 months Colonoscopy in 2021 with evidence of inflammatory changes, pathology noting chronic active colitis most consistent with IBD. Hgb 6.9 on admission (baseline hgb ~14), was transfused 1U pRBC with hgb of 7.7 Iron level of 13, supplemented with IV Venofer Vit b12 and folate level wnl s/p EGD on 07/26 with GI, appreciate recs -noted gastric ulcers (likely cause of melena), nonobstructing Schatzki ring, small hiatal hernia -biopsy/pathology of gastric ulcer noting only inflamed mucosa -NO NSAIDS, likely cause of gastric ulcers per GI -pantoprazole 40mg daily x 3 months -sucralfate 1gm QID x 10 days -hold anticoagulation (home Xarelto) for 1 week -repeat EGD in 3 months Monitor H/H with AM labs PT/OT orders placed 07/28-hgb trending down. closely monitor, will likely need another transfusion. 07/29-hgb with continued downtrend, this AM 7.0. Discussion with pt about transfusion given her persistent dizziness and SOB. Pt agreeable. Will transfuse 1U, repeat H/H afterwards. GI re-consulted for further recs, appreciated. Second degree/third degree Heart block On 07/27, pt with episode of dizziness and SOB, and increasing episodes of shailesh cardia. EKG obtained at that time concerning for second degree heart block, pt with also noted episodes of 3rd degree heart block on telemetry Stat trop slightly elevated at 15.1 Urgent echo ordered and pending. Labs at that time showed stable H/H with hgb at 7.8, normal mag and phos but elevated Cr from 1.52 earlier in the day to approximately 1.9. VBG with no pressing concern Chest xray with no acute concerns, noted known emphysema. Cardiology was consulted- appreciate recs -Holding home Flecainide and Verapamil -Pacer pads in place on pt -Attending Healthcare Corporate Account Director had discussion with pt about code status-she agreed to be a full code until issue resolves with med changes/possible pacemaker placement. Will resume DNR/DNI status afterwards. 07/28- no further episodes with meds held, appreciate further cardiology recs. 07/29-no further episodes of second/third degree heart block. Verapamil and Flecanide still on hold, appreciate cardiology recs PAF (paroxysmal atrial fibrillation) Pt previously in sinus rhythm on admission Treated outpt with flecainide and verapamil, currently on hold on 07/27 as noted above in setting of concerning second/third degree heart block Anticoagulated with xarelto, holding for 1 week per GI recs above- would be scheduled to resume on 08/01 Continue to monitor on telemetry Complicated UTI UA on admission suggestive of infection Urine Cx currently pending Started on Aztreonam (pt with many antibiotic allergies) Follow Cx and narrow abx Hyperkalemia Potassium of 5.2 on admission Has since downtrended to normal limits Continue to monitor Hypophosphatemia repleted as needed On daily supplements at this time Chronic respiratory failure with hypoxia COPD (chronic obstructive pulmonary disease) FRANCIS (obstructive sleep apnea) Pt states that she uses 3L at baseline, both with rest and ambulation No longer uses CPAP at night, does not want a new machine Continue home Budesonide, Anoro inh, Duonebs PRN Acute on chronic kidney Disease Cr 1.51 (Baseline Cr mid 1s) Was acutely elevated to 1.9 on 07/27 Lisinopril was held and pt received 1L of NSS Cr was downtrending afterwards Lisinopril has since been resumed by cardiology HTN (hypertension) BP was elevated on admission Continue lisinopril at this time Home Verapamil on hold as above Tobacco dependence due to cigarettes Still smoking 3-4 cigarettes daily Encourage cessation IBD Diverticulitis Colostomy in place H/o colon resection in 2019 at [facility] in [place] Has colostomy bag in place Mood Continue home lexapro Urinary Urgency Continue oxybutynin Diet: HH DVT Ppx: holding Xarelto in setting of GI bleed x 1 week per GI Code status: FULL Dispo: Pt wants Home with nursing services Admission and Anticipated Discharge Date Admission Date: July 25, 2023 Subjective Pt seen while sitting in chair at bedside. Was having breakfast and morning meds, nursing present in the room. States that she still felt dizzy, SOB. Reviewed hgb results this morning and discussed transfusion given number and symptoms. Pt agreeable. Review of Systems Review of Systems: All systems reviewed & are unremarkable except as noted in Subjective Physical Exam Physical Exam: General: Alert, oriented. No acute distress sitting in chair at bedside Psych: Appropriate mood and affect Neuro: CNII-XII grossly intact, No gross deficits HEENT: NC/AT, NC in nares Chest: Nontender to palpation. CV: Regular Resp: Breath sounds with scattered wheezes bilaterally, no increased effort of breathing at that time. Abdomen: Soft, colostomy bag in place Extremities: edema in lower extremities, L>R Results & Data Results & Data Vital Signs (Past 12 Hours) Vital Signs Temp Pulse Pulse Resp BP BP Pulse Ox 07/29/23 07:57 76 20 157/91 H 97 07/29/23 07:13 80 17 94 07/29/23 07:00 58 L 07/29/23 03:44 37.1 C 75 22 145/61 H 91 07/28/23 22:39 73 07/28/23 22:33 37.0 C 75 18 154/65 H 94 O2 Del Method O2 Flow Rate 07/29/23 07:57 Nasal Cannula 3 07/29/23 07:13 Nasal Cannula 3 07/29/23 07:00 07/29/23 03:44 Nasal Cannula 3.0 07/28/23 22:39 07/28/23 22:33 Nasal Cannula 3.0 (1) Anemia Anemia type: unspecified type Qualified Code(s): D64.9 - Anemia, unspecified (3) GI (gastrointestinal bleed) GI bleed type/associated pathology: unspecified gastrointestinal hemorrhage type Qualified Code(s): K92.2 - Gastrointestinal hemorrhage, unspecified
--- NOTE | 2023-07-29 10:24 | Electrocardiogram Report ---
Test Reason : Blood Pressure : / mmHG Vent. Rate : 071 BPM Atrial Rate : 071 BPM P-R Int : 276 ms QRS Dur : 080 ms QT Int : 378 ms P-R-T Axes : 084 026 092 degrees QTc Int : 410 ms Sinus rhythm with 1st degree A-V block with Premature atrial complexes Low voltage QRS Septal infarct , age undetermined Abnormal ECG When compared with ECG of 28-JUL-2023 09:30, Premature atrial complexes are now Present Septal infarct is now Present Nonspecific T wave abnormality now evident in Lateral leads Confirmed by Troey Sifuentes ([id number]) on 07/29/2023 10:24:42 AM Referred By: REFERRED SELF Confirmed By:Torey Sifuentes
--- NOTE | 2023-07-29 13:59 | Gastroenterology Progress Note ---
Date of Service July 29, 2023 Assessment & Plan (1) Anemia: Plan worsening anemia with possible ongoing GI bleed, no melena at this time however. recs: clear liquid diet today and tomorrow prep with golytely 4L starting tomorrow night 6 pm colonoscopy monday 07/31 with Carrillo Olivas MD Gastroenterology Admission and Anticipated Discharge Date Admission Date: July 25, 2023 Subjective 83 yo female here with melena GI reconsulted for continuing downtrending hgb. hgb noted to be 7 today, had egd with clean based ulcers on 07/[address] Kim. Brown stool in ostomy bag today. No hematemesis, epistaxis. She is amenable to colonoscopy and would prefer to have it done while here. Review of Systems Constitutional: no fever and no chills Respiratory: no cough, no dyspnea and no dyspnea on exertion Cardiovascular: no chest pain and no dyspnea Gastrointestinal: as per Subjective / HPI Psychiatric: no depression and no anxiety Physical Exam Constitutional: WD/WN, vitals as above Respiratory: normal respiratory effort, lungs clear to auscultation Cardiovascular: RRR, no murmur, no edema Gastrointestinal (Abdomen): normal bowel sounds, soft, nontender, no hepato splenomegaly Musculoskeletal: Head/Neck/Chest: normocephalic and head atraumatic Psychiatric: Orientation: alert and cooperative Affect: euthymic affect Results & Data Results & Data Vital Signs (Past 12 Hours) Vital Signs Temp Pulse Pulse Resp BP BP BP 07/29/23 12:48 37.0 C 63 18 129/64 07/29/23 11:53 36.9 C 76 18 146/60 H 07/29/23 10:53 36.9 C 69 18 130/68 07/29/23 10:23 37.1 C 66 18 129/64 07/29/23 10:08 37.1 C 69 18 133/49 L 07/29/23 08:00 07/29/23 08:00 07/29/23 07:57 76 20 157/91 H 07/29/23 07:13 80 17 07/29/23 07:00 58 L 07/29/23 03:44 37.1 C 75 22 145/61 H Pulse Ox O2 Del Method O2 Flow Rate 07/29/23 12:48 96 3 07/29/23 11:53 93 3 07/29/23 10:53 91 3 07/29/23 10:23 97 3 07/29/23 10:08 94 3 07/29/23 08:00 97 Nasal Cannula 3 07/29/23 08:00 Nasal Cannula 3 07/29/23 07:57 97 Nasal Cannula 3 07/29/23 07:13 94 Nasal Cannula 3 07/29/23 07:00 07/29/23 03:44 91 Nasal Cannula 3.0 PG Care Time/CCT Total # of Minutes Spent Total Time Spent with Patient: Total time spent is greater than 50% in coordination of care (as documented) at patient's floor/unit and/or counseling patient: Coding Level of Care Code 37024 SUB INP/OBS CARE 3/50MIN Diagnoses Anemia D64.9 Anemia type: unspecified type (1) Anemia Anemia type: unspecified type Qualified Code(s): D64.9 - Anemia, unspecified
[2023-07-29 14:40] LABS: Hemoglobin 8.7 g/dl (12.0-16.0)
[2023-07-29] MEDS: AZTREONAM 2,000 MG in DEXTROSE 5% MINI-B 100 ML IV SCH (17:19)
[2023-07-30] MEDS: AZTREONAM 2,000 MG in DEXTROSE 5% MINI-B 100 ML IV SCH ×2 (05:09→15:01)
[2023-07-30] MEDS: BUDESONIDE 0.25 MG/2 ML VIAL (PULMICORT) INH SCH ×2 (06:49→17:45)
[2023-07-30 07:20] LABS: Hematocrit (blood only) 27.1 % (37.0-47.0); Hemoglobin 8.1 g/dl (12.0-16.0); Mean Corpuscular Hemoglobin 27.6 pg (25.0-34.0); Mean Corpuscular Hgb Conc 29.9 g/dL (32.0-36.0); Mean Corpuscular Volume 92.2 fL (80.0-100.0); Mean Platelet Volume 9.1 fL (9.4-12.4); Platelet Count 246 K/uL (130-400); RDW Coefficient of Variation 19.4 % (11.5-14.5); RDW Standard Deviation 64.2 fL (36.4-46.3); Red Blood Count 2.94 M/uL (4.20-5.40); White Blood Count 7.95 K/ul (4.8-10.8)
[2023-07-30 07:45] LABS: Albumin Level 2.8 gm/dl (3.4-5.0); BUN Creatinine Ratio 13.6 (10-20); Bilirubin,Total 0.4 mg/dl (0.2-1.0); Calcium 7.8 mg/dl (8.6-10.3); Creatinine Clr Calc Pharmacy 36.6 ml/min; Est GFR (African American) 54.5 ml/min; Globulin 2.7 gm/dl (2.5-4.0); Magnesium 1.7 mg/dl (1.7-2.4); Phosphorus 3.4 mg/dl (2.5-4.9); Potassium 3.6 mmol/L (3.5-5.1); Total Protein 5.5 gm/dl (6.0-8.3)
[2023-07-30 07:51] LABS: Troponin I High Sensitivity 26.9 pg/ml (0-14)
[2023-07-30] MEDS: POT PHOSPHATE MONOBASIC W/ SOD TAB PO SCH ×4 (08:08→20:57)
[2023-07-30] MEDS: lisinopril 2.5 MG TAB PO SCH (08:09)
[2023-07-30] MEDS: PANTOprazole 40 MG TAB PO SCH (08:09)
[2023-07-30] MEDS: OXYBUTYNIN CHLORIDE XL 5 MG TABCR PO SCH (08:09)
[2023-07-30] MEDS: CEROVITE ADV FORMULA TAB PO SCH (08:09)
[2023-07-30] MEDS: ESCITALOPRAM OXALATE 10 MG TAB PO SCH (08:09)
[2023-07-30] MEDS: SUCRALFATE 1 GM/10 ML UDC PO SCH ×4 (08:10→20:57)
[2023-07-30] MEDS: UMECLIDINIUM/VILANTEROL 62.5/25MCG 7 PUFFS/INHALER INH SCH (08:10)
--- NOTE | 2023-07-30 11:48 | Hospitalist Progress Note ---
Date of Service July 30, 2023 Assessment & Plan (1) Anemia: (2) Weakness: (3) GI (gastrointestinal bleed): (4) PAF (paroxysmal atrial fibrillation): (5) Chronic respiratory failure with hypoxia: (6) COPD (chronic obstructive pulmonary disease): (7) FRANCIS (obstructive sleep apnea): (8) CKD (chronic kidney disease), stage III: (9) HTN (hypertension): (10) Tobacco dependence due to cigarettes: (11) Diverticulitis: (12) Colostomy in place: (13) UTI (urinary tract infection): Plan Pt is a 83yoF with PMHx significant for IBD noted on pathology in 2021, history of diverticulitis and resection of large bowel with colostomy, chronic hypoxemic respiratory failure, COPD, FRANCIS on 3L NC, paroxysmal atrial fibrillation on Xarelto, hypertension, CKD 3, depression who presented with melena and generalized weakness over the past 2 months in the setting of a GI Bleed. Acute blood loss anemia Iron Deficiency Anemia GI Bleed Generalized weakness- likely in setting of above Progressive weakness, lightheadedness and darkened ostomy output over the past 2 months Colonoscopy in 2021 with evidence of inflammatory changes, pathology noting chronic active colitis most consistent with IBD. Hgb 6.9 on admission (baseline hgb ~14), was transfused 1U pRBC with hgb of 7.7 Iron level of 13, supplemented with IV Venofer Vit b12 and folate level wnl s/p EGD on 07/26 with GI, appreciate recs -noted gastric ulcers (likely cause of melena), nonobstructing Schatzki ring, small hiatal hernia -biopsy/pathology of gastric ulcer noting only inflamed mucosa -NO NSAIDS, likely cause of gastric ulcers per GI -pantoprazole 40mg daily x 3 months -sucralfate 1gm QID x 10 days -hold anticoagulation (home Xarelto) for 1 week -repeat EGD in 3 months Monitor H/H with AM labs PT/OT orders placed 07/28-hgb trending down. closely monitor, will likely need another transfusion. 07/29-hgb with continued downtrend, this AM 7.0. Discussion with pt about transfusion given her persistent dizziness and SOB. Pt agreeable. Will transfuse 1U, repeat H/H afterwards. GI re-consulted for further recs, appreciated. 07/30-Pt to have colonoscopy on 07/31, NPO after midnight. Golytely prep at 6pm today. Continue clear liquid diet Second degree/third degree Heart block On 07/27, pt with episode of dizziness and SOB, and increasing episodes of bradycardia. EKG obtained at that time concerning for second degree heart block, pt with also noted episodes of 3rd degree heart block on telemetry Stat trop slightly elevated at 15.1 Urgent echo ordered and pending. Labs at that time showed stable H/H with hgb at 7.8, normal mag and phos but elevated Cr from 1.52 earlier in the day to approximately 1.9. VBG with no pressing concern Chest xray with no acute concerns, noted known emphysema. Cardiology was consulted- appreciate recs -Holding home Flecainide and Verapamil -Pacer pads in place on pt -Attending Can Intake Worker had discussion with pt about code status-she agreed to be a full code until issue resolves with med changes/possible pacemaker placement. Will resume DNR/DNI status afterwards. 07/28- no further episodes with meds held, appreciate further cardiology recs. 07/29-no further episodes of second/third degree heart block. Verapamil and Flecainide still on hold, appreciate cardiology recs PAF (paroxysmal atrial fibrillation) Pt previously in sinus rhythm on admission Treated outpt with flecainide and verapamil, currently on hold on 07/27 as noted above in setting of concerning second/third degree heart block Anticoagulated with xarelto, holding for 1 week per GI recs above- would be sche duled to resume on 08/01 Continue to monitor on telemetry Complicated UTI UA on admission suggestive of infection Urine Cx currently pending Started on Aztreonam (pt with many antibiotic allergies) Follow Cx and narrow abx Hyperkalemia Potassium of 5.2 on admission Has since downtrended to normal limits Continue to monitor Hypophosphatemia repleted as needed On daily supplements at this time Chronic respiratory failure with hypoxia COPD (chronic obstructive pulmonary disease) FRANCIS (obstructive sleep apnea) Pt states that she uses 3L at baseline, both with rest and ambulation No longer uses CPAP at night, does not want a new machine Continue home Budesonide, Anoro inh, Duonebs PRN Home Atrovent on hold as Duonebs ordered contains ipratropium Acute on chronic kidney Disease Cr 1.51 (Baseline Cr mid 1s) Was acutely elevated to 1.9 on 07/27 Lisinopril was held and pt received 1L of NSS Cr was downtrending afterwards Lisinopril has since been resumed by cardiology HTN (hypertension) BP was elevated on admission Continue lisinopril at this time Home Verapamil on hold as above Tobacco dependence due to cigarettes Still smoking 3-4 cigarettes daily Encourage cessation IBD Diverticulitis Colostomy in place H/o colon resection in 2019 at [facility] in [place] Has colostomy bag in place Mood Continue home lexapro Urinary Urgency Continue oxybutynin Diet: HH DVT Ppx: holding Xarelto in setting of GI bleed x 1 week per GI Code status: FULL Dispo: Pt wants Home with nursing services Admission and Anticipated Discharge Date Admission Date: July 25, 2023 Subjective Pt was seen sitting in a chair at bedside. States that her lightheadedness has improved but otherwise still feeling SOB and tired. Denied other acute complaints. Review of Systems Review of Systems: All systems reviewed & are unremarkable except as noted in Subjective Physical Exam Physical Exam: General: Alert, oriented. No acute distress sitting in chair at bedside Psych: Appropriate mood and affect Neuro: CNII-XII grossly intact, No gross deficits HEENT: NC/AT, NC in nares Chest: Nontender to palpation. CV: Regular Resp: Breath sounds with scattered wheezes bilaterally, no increased effort of breathing at that time. Abdomen: Soft, colostomy bag in place Extremities: edema in lower extremities, L>R Results & Data Results & Data Vital Signs (Past 12 Hours) Vital Signs Temp Pulse Pulse Resp BP Pulse Ox O2 Del Method 07/30/23 08:00 58 L 07/30/23 08:00 Nasal Cannula 07/30/23 07:50 36.5 C 76 21 163/70 H 90 Nasal Cannula 07/30/23 06:49 64 18 93 Nasal Cannula 07/30/23 04:29 36.9 C 69 18 144/60 H 93 Nasal Cannula O2 Flow Rate 07/30/23 08:00 07/30/23 08:00 3 07/30/23 07:50 3 07/30/23 06:49 3 07/30/23 04:29 3 (1) Anemia Anemia type: unspecified type Qualified Code(s): D64.9 - Anemia, unspecified (3) GI (gastrointestinal bleed) GI bleed type/associated pathology: unspecified gastrointestinal hemorrhage type Qualified Code(s): K92.2 - Gastrointestinal hemorrhage, unspecified
--- NOTE | 2023-07-30 12:27 | Cardiology Progress Note ---
Date of Service July 30, 2023 Assessment & Plan (1) Atrioventricular (AV) dissociation: (2) PAF (paroxysmal atrial fibrillation): (3) GI (gastrointestinal bleed): (4) CKD (chronic kidney disease), stage III: Plan Impression: Medically complex, acutely ill 83-year-old female admitted for acute GI bleed. Carries a history of paroxysmal atrial fibrillation normally maintained in sinus rhythm with flecainide and verapamil. Intermittent third-degree AV block noted on telemetry starting at approximately 1120 on 07/27/2023. Rhythm improved with holding of flecainide and verapamil. Plan: AV block disassociation: Improved on telemetry-- now showing SR with a long 1st degree AVB. Continue to hold flecainide and verapamil-- monitor for PAF/AV disassociation on telemetry. Monitor ON when off unit. Xarelto currently on hold due to GI bleeding and significant anemia Discussed indications for permanent pacemaker, no indication at this time. Paroxysmal atrial fibrillation None seen on telemetry Plan as stated above. GI bleed: Underwent endoscopy on 07/26-- nonbleeding superficial gastric ulcers noted moderate in severity with no active bleeding. + Nonobstructing Schatzki ring and a small hiatal hernia noted. Treated with PPI and Carafate Received 1 unit of PRBCs and IV iron 07/26/2023,and another unit of PRBCs on . Management per primary service. CKD/HTN: LOPEZ noted this admission , improved. Lisinopril resumed with stable renal function and potassium. --Continue to monitor off of verapamil and flecainide. --Consider adding back her outpatient atrovent nebulizer treatments in preparation of colonoscopy given wheezing. This chart was completed in part utilizing Speech Voice Recognition Software. Grammatical errors, random word insertions, pronoun errors, and incomplete sentences are an occasional consequence of this system due to software limitations, ambient noise, and hardware issues. Any formal questions or concerns about the content, text, or information contained within the body of this dictation should be directly addressed to the provider for clarification. Admission and Anticipated Discharge Date Admission Date: July 25, 2023 Subjective Pt seen in cardiology followup. Tolerating liquid diet. No cardiac complaints. Telemetry reveals SR in the 90s. Physical Exam Constitutional: + ill appearing; no acute distress Respiratory: normal respiratory effort and able to speak in complete sentences; no cough and not tachypneic Auscultation: + diminished lung sounds, + rhonchi and + wheezes (mid and apical wheezing noted ) Cardiovascular: Rate/Rhythm: regular rate and regular rhythm Heart Sounds: normal S1 and normal S2; no murmur (No murmur appreciated on exam) Vessels: no JVD Extremities: no edema Skin: no rashes, warm and dry Psychiatric: Orientation: alert and oriented x 3 Results & Data Vital Signs (Past 12 Hours) Vital Signs Temp Pulse Pulse Resp BP BP Pulse Ox 07/30/23 12:02 36.9 C 73 18 163/48 H 100 07/30/23 08:00 58 L 07/30/23 08:00 07/30/23 07:50 36.5 C 76 21 163/70 H 90 07/30/23 06:49 64 18 93 07/30/23 04:29 36.9 C 69 18 144/60 H 93 O2 Del Method O2 Flow Rate 07/30/23 12:02 Nasal Cannula 4 07/30/23 08:00 07/30/23 08:00 Nasal Cannula 3 07/30/23 07:50 Nasal Cannula 3 07/30/23 06:49 Nasal Cannula 3 07/30/23 04:29 Nasal Cannula 3 Laboratory Results Cardiac Enzymes 07/30/23 Range/Units 06:36 AST 12 L (13-39) U/L Troponin I High Sens 26.9 H (0-14) pg/ml CBC 07/29/23 07/30/23 Range/Units 14:13 06:36 WBC 7.95 (4.8-10.8) K/ul RBC 2.94 L (4.20-5.40) M/uL Hgb 8.7 L 8.1 L (12.0-16.0) g/dl Hct 28.0 L 27.1 L (37.0-47.0) % Plt Count 246 (130-400) K/uL Comprehensive Metabolic Panel 07/30/23 Range/Units 06:36 Sodium 143 (136-145) mmol/L Potassium 3.6 (3.5-5.1) mmol/L Chloride 112 H (98-107) mmol/L Carbon Dioxide 26 (21-32) mmol/L BUN 15 (6-23) mg/dl Creatinine 1.10 D (0.6-1.2) mg/dl Glucose 103 H (70-99(Fasting)) mg/dl Calcium 7.8 L (8.6-10.3) mg/dl AST 12 L (13-39) U/L ALT 8 (7-52) U/L Alkaline Phosphatase 54 (34-104) U/L Total Protein 5.5 L (6.0-8.3) gm/dl Albumin 2.8 L (3.4-5.0) gm/dl Intake and Output 07/29/23 07/30/23 07/30/23 22:59 06:59 14:59 Intake Total 780 / 1440 350 / 1440 Output Total 875 / 1126 201 / 1126 Balance -95 / 314 149 / 314 Intake: IV 100 / 200 100 / 200 Aztreonam 2,000 mg In Dextrose 100 / 200 100 / 200 5% Mini-B 100 ml @ 100 mls/hr IV Q12H [facility] Rx#:[id number] Oral 680 / 930 250 / 930 Output: Urine 475 / 525 Urine Amount (Catheter) 200 / 200 External 200 / 200 Gastric Drainage 400 / 400 Ileostomy/Colostomy 400 / 400 # Bowel Movements Other: Weight 79.6 kg (3) GI (gastrointestinal bleed) GI bleed type/associated pathology: unspecified gastrointestinal hemorrhage type Qualified Code(s): K92.2 - Gastrointestinal hemorrhage, unspecified
[2023-07-30] MEDS ORDERED: ALBUT/IPRATROP 3MG/0.5MG NEB 3 ML VIAL NEB STA (17:00)
[2023-07-30] MEDS ORDERED: LAVAGE SOLUTION 4000ML PO ONE (18:00)
[2023-07-31] MEDS: AZTREONAM 2,000 MG in DEXTROSE 5% MINI-B 100 ML IV SCH ×2 (00:37→06:28)
[2023-07-31 06:33] LABS: Hematocrit (blood only) 29.4 % (37.0-47.0); Hemoglobin 8.8 g/dl (12.0-16.0); Mean Corpuscular Hemoglobin 27.7 pg (25.0-34.0); Mean Corpuscular Hgb Conc 29.9 g/dL (32.0-36.0); Mean Corpuscular Volume 92.5 fL (80.0-100.0); Mean Platelet Volume 9.2 fL (9.4-12.4); Platelet Count 277 K/uL (130-400); RDW Coefficient of Variation 18.9 % (11.5-14.5); RDW Standard Deviation 63.9 fL (36.4-46.3); Red Blood Count 3.18 M/uL (4.20-5.40); White Blood Count 8.31 K/ul (4.8-10.8)
[2023-07-31 06:45] LABS: BUN Creatinine Ratio 11.2 (10-20); Bilirubin,Total 0.4 mg/dl (0.2-1.0); Calcium 8.2 mg/dl (8.6-10.3); Creatinine Clr Calc Pharmacy 40.9 ml/min; Est GFR (African American) 62.7 ml/min; Est GFR (Non-African American) 54.1 ml/min; Magnesium 1.6 mg/dl (1.7-2.4); Phosphorus 2.8 mg/dl (2.5-4.9); Potassium 3.6 mmol/L (3.5-5.1)
[2023-07-31] MEDS: BUDESONIDE 0.25 MG/2 ML VIAL (PULMICORT) INH SCH ×2 (07:15→19:37)
[2023-07-31] MEDS ORDERED: PROPOFOL IV EMULSION 10 MG/ML 20 ML VIAL IV ONE (08:24)
[2023-07-31] MEDS ORDERED: LIDOCAINE 2% 2 ML VIAL/AMP(20MG/ML) INFIL ONE (08:26)
--- NOTE | 2023-07-31 08:30 | History & Physical Report ---
Date of Service July 31, 2023 Assessment & Plan Admission and Anticipated Discharge Date Admission Date: July 25, 2023 History of Present Illness Primary Care Provider: Tameka Mao MD Anemia CV: RRR Resp: CTA Abd: soft A/P: colonoscopy Allergies Allergy/AdvReac Type Severity Reaction Status Date / Time amoxicillin Allergy Intermediate Rash Verified 07/31/23 08:27 cephalexin [From Keflex] Allergy Intermediate Rash Verified 07/31/23 08:27 cilostazol [From Pletal] Allergy Intermediate Rash Verified 07/31/23 08:27 ciprofloxacin [From Cipro] Allergy Intermediate Rash Verified 07/31/23 08:27 diltiazem Allergy Intermediate Rash Verified 07/31/23 08:27 felodipine Allergy Intermediate Rash Verified 07/31/23 08:27 meloxicam Allergy Intermediate Rash Verified 07/31/23 08:27 sulfamethoxazole Allergy Intermediate Rash Verified 07/31/23 08:27 [From Bactrim] trimethoprim [From Bactrim] Allergy Intermediate Rash Verified 07/31/23 08:27 Home Medications Medication Instructions Recorded Confirmed Type calcium carbonate 500 mg-vitamin 1 tab PO QPM 03/10/19 07/25/23 History D3 10 mcg (400 unit) tablet (Calcium 500 + D) escitalopram oxalate 10 mg tablet 10 mg PO QAM 03/10/19 07/25/23 History (Lexapro) ferrous sulfate 325 mg (65 mg 325 mg PO QAM 03/10/19 07/25/23 History iron) tablet verapamil 240 mg tablet,extended 240 mg PO QAM 03/10/19 07/25/23 History release vit C 250 mg-vit E 90 mg-zinc 40 1 tab PO QAM 03/10/19 07/25/23 History mg-copper 1 [id number] capsule (PreserVision AREDS-2) guaifenesin 600 mg tablet, 600 mg PO BID #60 tabs 07/16/20 07/25/23 Rx extended release 12 hr (Mucinex) ascorbic acid (vitamin C) 500 mg 500 mg PO QAM 12/08/20 07/25/23 History tablet (Vitamin C) cyclosporine 0.05 % eye drops in a 1 drp OPB BID 12/08/20 07/25/23 History dropperette (Restasis) flecainide 50 mg tablet 50 mg PO BID 12/08/20 07/25/23 History Portable Oxygen #1 ea 03/25/21 01/19/23 Rx rivaroxaban 15 mg tablet (Xarelto) 15 mg PO QPM 11/05/21 07/25/23 History Auto Titrating CPAP #1 ea 02/03/23 02/03/23 Rx CPAP Supplies #1 ea 02/03/23 02/03/23 Rx albuterol sulfate 90 mcg/actuation 1 inh inhalation QID PRN Shortness 02/03/23 07/25/23 Rx aerosol inhaler (ProAir HFA) Of Breath #8.5 grams budesonide 0.25 mg/2 mL suspension 0.25 mg (2 mL) inhalation BID #60 02/03/23 07/25/23 Rx for nebulization mL umeclidinium 62.5 mcg-vilanterol 1 inh inhalation QAM #60 ea 02/03/23 07/25/23 Rx 25 mcg/actuation powdr for inhalation (Anoro Ellipta) lisinopril 2.5 mg tablet 2.5 mg PO QAM 03/14/23 07/25/23 History mesalamine 1.2 gram tablet,delayed 3.6 g PO QAM 03/14/23 07/25/23 History release acetaminophen 325 mg tablet 325 mg PO Q6H PRN Pain 07/25/23 07/25/23 History (Tylenol) ipratropium 0.5 mg-albuterol 3 mg 3 ml inhalation Q4H PRN Wheezing 07/25/23 07/25/23 History (2.5 mg base)/3 mL nebulization soln omega-3 fatty acids 500 mg capsule 500 mg PO DAILY 07/25/23 07/25/23 History solifenacin 5 mg tablet 5 mg PO QAM 07/25/23 07/25/23 History triamcinolone acetonide 0.05 % 1 applic topical BID PRN AFFECTED 07/25/23 07/25/23 History topical ointment AREA Past Med/Surg History Medical History (Updated 07/27/23 @ 15:49 by JULIO Tuttle) Encounter for pre-operative examination FRANCIS (obstructive sleep apnea) Osteoarthritis Chronic back pain Diverticular disease Skin cancer of nose 1970s--unsure which kind, removed in office On anticoagulant therapy xarelto daily On home oxygen therapy 4L N/C PRN PVD (peripheral vascular disease) PAF (paroxysmal atrial fibrillation) on xarelto/flecainide--follows with Dr. Savage Depression Macular degeneration Osteoporosis CKD (chronic kidney disease), stage III HTN (hypertension) HLD (hyperlipidemia) Multiple pulmonary nodules Tobacco dependence due to cigarettes 5 per day Chronic bronchitis COPD (chronic obstructive pulmonary disease) inhaler daily/prn, nebulizer daily/prn; continuous oxygen 3L Colostomy in place Diverticulitis Surgical History History of appendectomy taken out during resection of bowel History of colonoscopy History of tooth extraction History of cataract extraction with lens replacement bilateral History of tonsillectomy History of tubal ligation History of resection of large bowel (~10/2018) perforated bowel d/t diverticulitis History of creation of ostomy 10/2018 Family History Father Pancreatic cancer Mother Stroke Other No family history of adverse response to anesthesia Social History Smoking Status: Current every day smoker Tobacco Type: Cigarettes Age Started Using Tobacco: 22; Cigarettes Per Day: 3; Second Hand Exposure: Yes (hx growing up); Do You Dip or Chew Tobacco: No; Hx Alcohol Use: No Hx Substance Use: No Preferred Language: [place] Communication Ability: Effective Calibration Technician Required: No Beliefs That Will Affect Care: None marital status: / Current Living Situation: Alone Current Living Situation Comment: Mobile home, [address] Other Information That Helps Us Care for You: No ("I like [employer]") Feels Safe at Home: Yes Assistive Devices: Glasses and Oxygen - Continuous Results & Data Results & Data Vital Signs (Past 12 Hours) Vital Signs Temp Pulse Pulse Pulse Resp BP BP 07/31/23 08:23 36.9 C 61 60 18 148/50 H 07/31/23 07:16 90 18 07/31/23 03:30 61 07/31/23 02:51 37.1 C 55 L 18 128/66 07/30/23 22:58 36.9 C 64 18 158/50 H Pulse Ox O2 Del Method O2 Flow Rate 07/31/23 08:23 94 Room Air 07/31/23 07:16 92 Nasal Cannula 4 07/31/23 03:30 07/31/23 02:51 94 Nasal Cannula 07/30/23 22:58 96 Nasal Cannula Code Status & VTE Plan VTE Prophylaxis Plan VTE Prophylaxis will be ordered: Yes
--- NOTE | 2023-07-31 08:36 | Anesthesiology Consultation ---
Date of Service July 31, 2023 History Surgery Operation Date: 07/26/23 16:30 Proposed Procedures p Esophagogastroduodenoscopy Dr Julio Kim DO Operation Date: 07/31/23 16:30 Proposed Procedures p Colonoscopy Dr Orantes - Joshua Orantes MD Height/Weight Height: 4 ft 11 in Weight: 79.2 kg Allergies Allergy/AdvReac Type Severity Reaction Status Date / Time amoxicillin Allergy Intermediate Rash Verified 07/31/23 08:27 cephalexin [From Keflex] Allergy Intermediate Rash Verified 07/31/23 08:27 cilostazol [From Pletal] Allergy Intermediate Rash Verified 07/31/23 08:27 ciprofloxacin [From Cipro] Allergy Intermediate Rash Verified 07/31/23 08:27 diltiazem Allergy Intermediate Rash Verified 07/31/23 08:27 felodipine Allergy Intermediate Rash Verified 07/31/23 08:27 meloxicam Allergy Intermediate Rash Verified 07/31/23 08:27 sulfamethoxazole Allergy Intermediate Rash Verified 07/31/23 08:27 [From Bactrim] trimethoprim [From Bactrim] Allergy Intermediate Rash Verified 07/31/23 08:27 Medications Home Medications Medication Instructions Recorded Confirmed Last Taken calcium carbonate 500 mg-vitamin 1 tab PO QPM 03/10/19 07/25/23 07/24/23 D3 10 mcg (400 unit) tablet (Calcium 500 + D) escitalopram oxalate 10 mg tablet 10 mg PO QAM 03/10/19 07/25/23 07/24/23 (Lexapro) ferrous sulfate 325 mg (65 mg 325 mg PO QAM 03/10/19 07/25/23 07/24/23 iron) tablet verapamil 240 mg tablet,extended 240 mg PO QAM 03/10/19 07/25/23 07/24/23 release vit C 250 mg-vit E 90 mg-zinc 40 1 tab PO QAM 03/10/19 07/25/23 07/24/23 mg-copper 1 [id number] capsule (PreserVision AREDS-2) guaifenesin 600 mg tablet, 600 mg PO BID #60 tabs 07/16/20 07/25/23 07/24/23 extended release 12 hr (Mucinex) ascorbic acid (vitamin C) 500 mg 500 mg PO QAM 12/08/20 07/25/2307/24/24 tablet (Vitamin C) cyclosporine 0.05 % eye drops in a 1 drp OPB BID 12/08/20 07/25/23 07/24/23 dropperette (Restasis) flecainide 50 mg tablet 50 mg PO BID 12/08/20 07/25/23 07/24/23 Portable Oxygen #1 ea 03/25/21 01/19/23 Unknown rivaroxaban 15 mg tablet (Xarelto) 15 mg PO QPM 11/05/21 07/25/23 07/24/23 Auto Titrating CPAP #1 ea 02/03/23 02/03/23 Unknown CPAP Supplies #1 ea 02/03/23 02/03/23 Unknown albuterol sulfate 90 mcg/actuation 1 inh inhalation QID PRN Shortness 02/03/23 07/25/23 Unknown aerosol inhaler (ProAir HFA) Of Breath #8.5 grams budesonide 0.25 mg/2 mL suspension 0.25 mg (2 mL) inhalation BID #60 02/03/23 07/25/23 07/24/23 for nebulization mL umeclidinium 62.5 mcg-vilanterol 1 inh inhalation QAM #60 ea 02/03/23 07/25/23 07/24/23 25 mcg/actuation powdr for inhalation (Anoro Ellipta) lisinopril 2.5 mg tablet 2.5 mg PO QAM 03/14/23 07/25/23 07/24/23 mesalamine 1.2 gram tablet,delayed 3.6 g PO QAM 03/14/23 07/25/23 07/24/23 release acetaminophen 325 mg tablet 325 mg PO Q6H PRN Pain 07/25/23 07/25/23 Unknown (Tylenol) ipratropium 0.5 mg-albuterol 3 mg 3 ml inhalation Q4H PRN Wheezing 07/25/23 07/25/23 Unknown (2.5 mg base)/3 mL nebulization soln omega-3 fatty acids 500 mg capsule 500 mg PO DAILY 07/25/23 07/25/23 07/24/23 solifenacin 5 mg tablet 5 mg PO QAM 07/25/23 07/25/23 07/24/23 triamcinolone acetonide 0.05 % 1 applic topical BID PRN AFFECTED 07/25/23 07/25/23 Unknown topical ointment AREA Active Medications Generic Name Dose Route Start Last Admin Trade Name Freq PRN Reason Stop Dose Admin Albuterol 3 ml 07/25/23 16:19 07/29/23 07:15 Albut/Ipratrop 3mg/0.5mg Neb 3 Ml Vial INH 08/24/23 16:18 3 ml Q4H PRN Administration Wheezing Protocol Budesonide 0.25 mg 07/25/23 19:00 07/31/23 07:15 Budesonide 0.25 Mg/2 Ml Vial (Pulmicort) INH 08/24/23 18:59 0.25 mg BIDR [place] Administration Escitalopram Oxalate 10 mg 07/26/23 09:00 07/30/23 08:09 Escitalopram Oxalate 10 Mg Tab PO 08/25/23 08:59 10 mg QAM [place] Administration Aztreonam 2,000 mg/ Dextrose 100 mls @ 100 mls/hr 07/30/23 15:00 07/31/23 07:32 IV 08/05/23 23:59 Infused Q8H [place] Infusion Protocol Lisinopril 2.5 mg 07/26/23 09:00 07/30/23 08:09 Lisinopril 2.5 Mg Tab PO 08/25/23 08:59 2.5 mg QAM [place] Administration Multivitamins/Minerals 1 tab 07/26/23 09:00 07/30/23 08:09 Cerovite Adv Formula Tab PO 08/25/23 08:59 1 tab QAM [place] Administration Oxybutynin Chloride 5 mg 07/26/23 09:00 07/30/23 08:09 Oxybutynin Chloride Xl 5 Mg Tabcr PO 08/25/23 08:59 5 mg QAM [place] Administration Protocol Pantoprazole Sodium 40 mg 07/26/23 11:45 07/30/23 08:09 Pantoprazole 40 Mg Tab PO 08/25/23 11:44 40 mg QAM [place] Administration Potassium Phosphate 2 tab 07/28/23 13:00 07/30/23 20:57 Pot Phosphate Monobasic W/ Sod Tab PO 08/27/23 12:59 2 tab QID [place] Administration Sucralfate 1 gm 07/26/23 13:00 07/30/23 20:57 Sucralfate 1 Gm/10 Ml Udc PO 08/25/23 12:59 1 gm QID [place] Administration Umeclidinium/Vilanterol 1 puffs 07/26/23 09:00 07/30/23 08:10 Umeclidinium/Vilanterol 62.5/25mcg 7 Puffs/Inhaler INH 08/25/23 08:59 1 puffs QAM [place] Administration NPO Date Last Intake of Fluids: 07/31/23 Time Last Intake of Fluids: 01:05 Date Last Intake of Solids: 07/29/23 Time Last Intake of Solids: 18:00 Past Medical History Medical History (Updated 07/27/23 @ 15:49 by JULIO Tuttle) Encounter for pre-operative examination FRANCIS (obstructive sleep apnea) Osteoarthritis Chronic back pain Diverticular disease Skin cancer of nose 1970s--unsure which kind, removed in office On anticoagulant therapy xarelto daily On home oxygen therapy 4L N/C PRN PVD (peripheral vascular disease) PAF (paroxysmal atrial fibrillation) on xarelto/flecainide--follows with Dr. Savage Depression Macular degeneration Osteoporosis CKD (chronic kidney disease), stage III HTN (hypertension) HLD (hyperlipidemia) Multiple pulmonary nodules Tobacco dependence due to cigarettes 5 per day Chronic bronchitis COPD (chronic obstructive pulmonary disease) inhaler daily/prn, nebulizer daily/prn; continuous oxygen 3L Colostomy in place Diverticulitis Past Family History Family History Father Pancreatic cancer Mother Stroke Other No family history of adverse response to anesthesia Past Surgical History Surgical History History of appendectomy taken out during resection of bowel History of colonoscopy History of tooth extraction History of cataract extraction with lens replacement bilateral History of tonsillectomy History of tubal ligation History of resection of large bowel (~10/2018) perforated bowel d/t diverticulitis History of creation of ostomy 10/2018 Social History Smoking Status: Current every day smoker tobacco type: cigarettes Smoking cigarettes per day: 3 Do You Dip or Chew Tobacco: No Hx Alcohol Use: No Hx Substance Use: No substance use type: does not use Physical Exam Vital Signs Last Vital Signs Temp 36.9 C 07/31/23 08:23 Pulse 61 07/31/23 08:23 Resp 18 07/31/23 08:23 BP 148/50 H 07/31/23 08:23 Pulse Ox 94 07/31/23 08:23 O2 Del Method Room Air 07/31/23 08:23 O2 Flow Rate 4 07/31/23 07:16 Testing Laboratory Results 07/31/23 06:07 07/31/23 06:07 PT 11.8 Seconds (9.0-12.0) 07/25/23 15:23 INR 1.1 (0.9-1.1) 07/25/23 15:23 APTT 33 Seconds (21-31) H 07/25/23 15:23 Urine Color Yellow 07/28/23 03:57 Urine Appearance Cloudy (Clear) A 07/28/23 03:57 Urine pH 5.5 (4.5-7.5) 07/28/23 03:57 Ur Specific [place] 1.011 (1.000-1.030) 07/28/23 03:57 Urine Protein 1+ (Negative) H 07/28/23 03:57 Urine Glucose (UA) Negative (Negative) 07/28/23 03:57 Urine Ketones Negative (Negative) 07/28/23 03:57 Urine Nitrite Positive (Negative) A 07/28/23 03:57 Ur Leukocyte Esterase 3+ (Negative) H 07/28/23 03:57 Urine WBC (Auto) >30 /hpf (0-5) H 07/28/23 03:57 Urine RBC (Auto) 0-4 /hpf (0-4) 07/28/23 03:57 U Hyaline Cast (Auto) 1-5 /lpf (0-5) 07/28/23 03:57 U Epithel Cells (Auto) 5-10 /lpf (0-5) H 07/28/23 03:57 Urine Bacteria (Auto) Negative (Negative) 07/28/23 03:57 Blood Type A Positive 07/29/23 02:54 Antibody Screen NEGATIVE 07/29/23 02:54 07/28/23 03:57 Urine Culture - Preliminary Urine,Clean Catch Pin-point growth present, reincubating. 07/25/23 16:57 Urine Culture - Final Urine,Clean Catch More than three types of organisms present, all high counts. Repeat collection recommended. No further identifications or sensitivities to follow. Electrocardiogram Date: 07/25/23 4 14:25:04 [facility]-EDSTAT ROUTINE RETRIEVAL Sinus rhythm with 1st degree A-V block Low voltage QRS Cannot rule out Anterior infarct , age undetermined Abnormal ECG When compared with ECG of 05-NOV-2021 12:54, Minimal criteria for Anterior infarct are now Present Borderline criteria for Inferior infarct are no longer Present 25mm/s10mm/[id number] 243CID: 23Referred by: REFERRED SELF Unconfirmed Vent. rate 67 BPM MN interval 298 ms QRS duration 66 ms QT/QTc 396/418 ms P-R-T axes 93 -1 83 Chest X-Ray Date: 07/25/23 XR chest 1V portable CLINICAL HISTORY: generalized weakness TECHNIQUE: Single frontal radiograph of the chest was obtained. Comparison: Comparison is made to chest radiograph 11/05/2021 FINDINGS: No lines and tubes are seen. Cardiomegaly is noted. The aortic arch is calcified. Faint bibasilar airspace opacities are seen. Interstitial thickening is seen. No evidence of pleural effusion or pneumothorax. IMPRESSION: Faint bibasilar airspace opacities which may represent atelectasis, pneumonia, and/or aspiration. Echocardiogram Date: 07/15/19 EF: 62% LV Function: normal RWMA: + none Other Findings: + diastolic dysfunction (grade 1)
[2023-07-31] MEDS ORDERED: ePHEDrine sulfate 50 MG/ML AMP IV PRN (08:44)
[2023-07-31] MEDS ORDERED: ONDANSETRON INJ 2 MG/ML 2 ML VIAL IV PRN (08:44)
[2023-07-31] MEDS ORDERED: ATROPINE SULFATE 0.1 MG/ML 10ML SYR IV PRN (08:44)
--- NOTE | 2023-07-31 09:12 | GI REPORT ---
Patient Name: Eliazar Beaulieu Procedure Date: 07/31/2023 8:42 AM Date of : 1940 Admit Type: Inpatient Age: 83 Gender: Female Attending MD: Joshua Orantes MD, Procedure: Colonoscopy Providers: Joshua Orantes MD Referring MD: Gabrielle Petersen M.d. Indications: Acute post hemorrhagic anemia Medicines: See the Anesthesia note for documentation of the administered medications Complications: No immediate complications. Estimated Blood Loss: Estimated blood loss: none. Procedure: Pre-Anesthesia Assessment: - ASA Grade Assessment: II - A patient with mild systemic disease. After I obtained informed consent, the scope was passed under direct vision. Throughout the procedure, the patient's blood pressure, pulse, and oxygen saturations were monitored continuously. The Colonoscope was introduced through the descending colostomy and advanced to the terminal ileum. The colonoscopy was performed without difficulty. The patient tolerated the procedure well. The quality of the bowel preparation was good. Findings: There was an unremarkable left ostomy. There was extensive diverticula thorughout the descending colon. There was a 6 mm polyp removed by cold snare in the descending colon. There was extensive pseudopolyposis throughout the transverse and ascending colon. The entire colon was examined with both HDWL and NBI. No evidence of active colitis. Random biopsies done. There was an ascending colon end to end functional side to side anastamosis. The anastamosis was unremarkable. The ileum was unremarkable. Recommendation: - Discharge patient to floor. Alessandra Fisher MD 07/31/2023 9:12:02 AM This report has been signed electronically. Note Initiated On: 07/31/2023 8:42 AM Number of Addenda: 0 I attest to the content of the Intraoperative Record and orders documented therein, exceptions below {[id number]}
[2023-07-31] MEDS ORDERED: GLYCOPYRROLATE 0.2 MG/ML VIAL ONE (09:15)
--- NOTE | 2023-07-31 09:58 | Electrocardiogram Report ---
Test Reason : Blood Pressure : / mmHG Vent. Rate : 047 BPM Atrial Rate : 058 BPM P-R Int : 220 ms QRS Dur : 068 ms QT Int : 436 ms P-R-T Axes : 082 033 057 degrees QTc Int : 385 ms Sinus bradycardia with marked sinus arrhythmia with 1st degree A-V block Low voltage QRS Septal infarct (cited on or before 29-JUL-2023) Abnormal ECG When compared with ECG of 29-JUL-2023 04:46, Premature atrial complexes are no longer Present Vent. rate has decreased BY 24 BPM Nonspecific T wave abnormality no longer evident in Lateral leads Confirmed by Torey Sifuentes ([id number]) on 07/31/2023 9:57:54 AM Referred By: REFERRED SELF Confirmed By:Torey Sifuentes
[2023-07-31] MEDS: lisinopril 2.5 MG TAB PO SCH (11:24)
[2023-07-31] MEDS: PANTOprazole 40 MG TAB PO SCH (11:24)
[2023-07-31] MEDS: UMECLIDINIUM/VILANTEROL 62.5/25MCG 7 PUFFS/INHALER INH SCH (11:25)
[2023-07-31] MEDS: OXYBUTYNIN CHLORIDE XL 5 MG TABCR PO SCH (11:25)
[2023-07-31] MEDS: POT PHOSPHATE MONOBASIC W/ SOD TAB PO SCH ×4 (11:25→21:01)
[2023-07-31] MEDS: SUCRALFATE 1 GM/10 ML UDC PO SCH ×4 (11:26→21:02)
[2023-07-31] MEDS: CEROVITE ADV FORMULA TAB PO SCH (11:26)
[2023-07-31] MEDS: ESCITALOPRAM OXALATE 10 MG TAB PO SCH (11:26)
[2023-07-31] MEDS: MAGNESIUM SULFATE / D5W 1 GM/100 ML BAG IV SCH ×2 (11:32→14:55)
--- NOTE | 2023-07-31 12:23 | Hospitalist Progress Note ---
Date of Service July 31, 2023 Assessment & Plan (1) Anemia: (2) Weakness: (3) GI (gastrointestinal bleed): (4) PAF (paroxysmal atrial fibrillation): (5) Chronic respiratory failure with hypoxia: (6) COPD (chronic obstructive pulmonary disease): (7) FRANCIS (obstructive sleep apnea): (8) CKD (chronic kidney disease), stage III: (9) HTN (hypertension): (10) Tobacco dependence due to cigarettes: (11) Diverticulitis: (12) Colostomy in place: (13) UTI (urinary tract infection): Plan Pt is a 83yoF with PMHx significant for IBD noted on pathology in 2021, history of diverticulitis and resection of large bowel with colostomy, chronic hypoxemic respiratory failure, COPD, FRANCIS on 3L NC, paroxysmal atrial fibrillation on Xarelto, hypertension, CKD 3, depression who presented with melena and generalized weakness over the past 2 months in the setting of a GI Bleed. Acute blood loss anemia Iron Deficiency Anemia GI Bleed Generalized weakness- likely in setting of above Progressive weakness, lightheadedness and darkened ostomy output over the past 2 months Colonoscopy in 2021 with evidence of inflammatory changes, pathology noting chronic active colitis most consistent with IBD. Hgb 6.9 on admission (baseline hgb ~14), was transfused 1U pRBC with hgb of 7.7 Iron level of 13, supplemented with IV Venofer Vit b12 and folate level wnl s/p EGD on 07/26 with GI, appreciate recs -noted gastric ulcers (likely cause of melena), nonobstructing Schatzki ring, small hiatal hernia -biopsy/pathology of gastric ulcer noting only inflamed mucosa -NO NSAIDS, likely cause of gastric ulcers per GI -pantoprazole 40mg daily x 3 months -sucralfate 1gm QID x 10 days -hold anticoagulation (home Xarelto) for 1 week -repeat EGD in 3 months s/p colonoscopy on 07/31, noted: "-an unremarkable left ostomy. -extensive diverticula throughout the descending colon - 6 mm polyp in the descending colon -extensive pseudopolyposis throughout the transverse and ascending colon. -No evidence of active colitis. -Random biopsies done -ascending colon end to end functional side to side anastamosis. The anastamosis was unremarkable. -ileum was unremarkable." Monitor H/H with AM labs PT/OT orders placed 07/28-hgb trending down. closely monitor, will likely need another transfusion. 07/29-hgb with continued downtrend, this AM 7.0. Discussion with pt about transfusion given her persistent dizziness and SOB. Pt agreeable. Will transfuse 1U, repeat H/H afterwards. GI re-consulted for further recs, appreciated. 07/30-Pt to have colonoscopy on 07/31, NPO after midnight. Golytely prep at 6pm today. Continue clear liquid diet 07/31- colonoscopy completed in the AM, no evidence of bleeding. Hgb up to 8.8 today, highest it has been this admission. Continuing to hold home xarelto today, scheduled to resume on 08/01 per previous recs from GI. Appreciate GI recs. Second degree/third degree Heart block On 07/27, pt with episode of dizziness and SOB, and increasing episodes of bradycardia. EKG obtained at that time concerning for second degree heart block, pt with also noted episodes of 3rd degree heart block on telemetry Stat trop slightly elevated at 15.1 Urgent echo ordered and pending. Labs at that time showed stable H/H with hgb at 7.8, normal mag and phos but elevated Cr from 1.52 earlier in the day to approximately 1.9. VBG with no pressing concern Chest xray with no acute concerns, noted known emphysema. Cardiology was consulted- appreciate recs -Holding home Flecainide and Verapamil -Pacer pads in place on pt -Attending Aerial Applicator Pilot had discussion with pt about code status-she agreed to be a full code until issue resolves with med changes/possible pacemaker placement. Will resume DNR/DNI status afterwards. 07/28- no further episodes with meds held, appreciate further cardiology recs. 07/29-no further episodes of second/third degree heart block. Verapamil and Flecainide still on hold, appreciate cardiology recs 07/30-stable, no indication for pacemaker placement at this time 07/31- stable, appreciate cardiology recs PAF (paroxysmal atrial fibrillation) Pt previously in sinus rhythm on admission Treated outpt with flecainide and verapamil, currently on hold on 07/27 as noted above in setting of concerning second/third degree heart block Anticoagulated with xarelto, holding for 1 week per GI recs above- would be scheduled to resume on 08/01 Continue to monitor on telemetry Complicated UTI UA on admission suggestive of infection Urine Cx currently growing 40,000U of gram positive cocci Started on Aztreonam (pt with many antibiotic allergies), continue Follow Cx and narrow abx Hyperkalemia Potassium of 5.2 on admission Has since downtrended to normal limits Continue to monitor Hypophosphatemia repleted as needed On daily supplements at this time Chronic respiratory failure with hypoxia COPD (chronic obstructive pulmonary disease) FRANCIS (obstructive sleep apnea) Pt states that she uses 3L at baseline, both with rest and ambulation No longer uses CPAP at night, does not want a new machine Continue home Budesonide, Anoro inh, Duonebs PRN Home Atrovent on hold as Duonebs ordered contains ipratropium Acute on chronic kidney Disease Cr 1.51 (Baseline Cr mid 1s) Was acutely elevated to 1.9 on 07/27 Lisinopril was held and pt received 1L of NSS Cr was downtrending afterwards Lisinopril has since been resumed by cardiology HTN (hypertension) BP was elevated on admission Continue lisinopril at this time Home Verapamil on hold as above Tobacco dependence due to cigarettes Still smoking 3-4 cigarettes daily Encourage cessation IBD Diverticulitis Colostomy in place H/o colon resection in 2019 at [facility] in [place] Has colostomy bag in place Mood Continue home lexapro Urinary Urgency Continue oxybutynin Diet: HH DVT Ppx: holding Xarelto in setting of GI bleed x 1 week per GI Code status: FULL Dispo: Pt wants Home with nursing services Admission and Anticipated Discharge Date Admission Date: July 25, 2023 Subjective Pt was seen sitting in a chair at bedside. had her colonoscopy this AM. States that her lightheadedness has improved but otherwise still feeling SOB and tired. Discussed code status once more- she indicates that she would like to continue with full code at this time, to be done only initially but to discontinue measures if proving futile. Review of Systems Review of Systems: All systems reviewed & are unremarkable except as noted in Subjective Physical Exam Physical Exam: General: Alert, oriented. No acute distress sitting in chair at bedside Psych: Appropriate mood and affect Neuro: CNII-XII grossly intact, No gross deficits HEENT: NC/AT, NC in nares Chest: Nontender to palpation. CV: Regular Resp: Breath sounds clear bilaterally, no increased effort of breathing at that time. Abdomen: Soft, colostomy bag in place Extremities: edema in lower extremities, L>R Results & Data Results & Data Vital Signs (Past 12 Hours) Vital Signs Temp Pulse Pulse Pulse Resp BP BP 07/31/23 09:38 83 18 151/72 H 07/31/23 09:25 93 H 16 167/88 H 07/31/23 09:10 76 18 140/80 07/31/23 08:23 36.9 C 61 60 18 148/50 H 07/31/23 07:16 90 18 07/31/23 03:30 61 07/31/23 02:51 37.1 C 55 L 18 128/66 Pulse Ox O2 Del Method O2 Flow Rate 07/31/23 09:38 95 Nasal Cannula 3 07/31/23 09:25 97 Nasal Cannula 4 07/31/23 09:10 93 Nasal Cannula 4 07/31/23 08:23 94 Room Air 07/31/23 07:16 92 Nasal Cannula 4 07/31/23 03:30 07/31/23 02:51 94 Nasal Cannula (1) Anemia Anemia type: unspecified type Qualified Code(s): D64.9 - Anemia, unspecified (3) GI (gastrointestinal bleed) GI bleed type/associated pathology: unspecified gastrointestinal hemorrhage type Qualified Code(s): K92.2 - Gastrointestinal hemorrhage, unspecified
--- NOTE | 2023-07-31 13:43 | Cardiology Progress Note ---
Date of Service July 31, 2023 Assessment & Plan (1) Atrioventricular (AV) dissociation: (2) PAF (paroxysmal atrial fibrillation): (3) GI (gastrointestinal bleed): (4) CKD (chronic kidney disease), stage III: Plan Impression: Medically complex, acutely ill 83-year-old female admitted for acute GI bleed. Carries a history of paroxysmal atrial fibrillation normally maintained in sinus rhythm with flecainide and verapamil. Intermittent third-degree AV block noted on telemetry starting at approximately 1120 on 07/27/2023. Rhythm improved with holding of flecainide and verapamil. Plan: AV block disassociation: Improved on telemetry-- now showing SR with first degree AVB. Resume verapamil ER , 120 mg daily on 08/01/23 (outpt dose was 240 mg daily). Remain off of flecainide. Paroxysmal atrial fibrillation None seen on telemetry Plan as stated above.Resume Xarelto 15 mg daily on 08/01/23. GI bleed: Underwent endoscopy on 07/26-- nonbleeding superficial gastric ulcers noted moderate in severity with no active bleeding. + Nonobstructing Schatzki ring and a small hiatal hernia noted. Treated with PPI and Carafate Received 1 unit of PRBCs and IV iron 07/26/2023,and another unit of PRBCs on . Resume Xarelto 15 mg daily on 08/01/23. CKD/HTN: LOPEZ noted this admission , improved. Lisinopril resumed with stable renal function and potassium. This chart was completed in part utilizing Speech Voice Recognition Software. Grammatical errors, random word insertions, pronoun errors, and incomplete sentences are an occasional consequence of this system due to software limitations, ambient noise, and hardware issues. Any formal questions or concerns about the content, text, or information contained within the body of this dictation should be directly addressed to the provider for clarification. Admission and Anticipated Discharge Date Admission Date: July 25, 2023 Subjective Patient seen in cardiology follow-up of anemia, history of paroxysmal atrial fibrillation, transient bradycardia with transient heart block noted earlier this hospital stay. Patient underwent colonoscopy this morning tolerated well from a cardiology perspective. Telemetry reveals sinus rhythm in the 50s to 60s with first-degree AV block. She had a brief episode of atrial tachycardia at 10:25 AM that resolved on its own. Physical Exam Constitutional: + ill appearing; no acute distress Respiratory: normal respiratory effort and able to speak in complete sentences; no cough and not tachypneic Auscultation: + diminished lung sounds, + rhonchi and + wheezes (mid and apical wheezing noted ) Cardiovascular: Rate/Rhythm: regular rate and regular rhythm Heart Sounds: normal S1 and normal S2; no murmur (No murmur appreciated on exam) Vessels: no JVD Extremities: no edema Skin: no rashes, warm and dry Psychiatric: Orientation: alert and oriented x 3 Results & Data Vital Signs (Past 12 Hours) Vital Signs Temp Pulse Pulse Pulse Resp BP BP 07/31/23 12:00 36.8 C 89 16 153/71 H 07/31/23 09:38 83 18 151/72 H 07/31/23 09:25 93 H 16 167/88 H 07/31/23 09:10 76 18 140/80 07/31/23 08:23 36.9 C 61 60 18 148/50 H 07/31/23 07:16 90 18 07/31/23 03:30 61 07/31/23 02:51 37.1 C 55 L 18 128/66 Pulse Ox O2 Del Method O2 Flow Rate 07/31/23 12:00 96 Nasal Cannula 3 07/31/23 09:38 95 Nasal Cannula 3 07/31/23 09:25 97 Nasal Cannula 4 07/31/23 09:10 93 Nasal Cannula 4 07/31/23 08:23 94 Room Air 07/31/23 07:16 92 Nasal Cannula 4 07/31/23 03:30 07/31/23 02:51 94 Nasal Cannula Laboratory Results Cardiac Enzymes 07/31/23 Range/Units 06:07 AST 17 (13-39) U/L CBC 07/31/23 Range/Units 06:07 WBC 8.31 (4.8-10.8) K/ul RBC 3.18 L (4.20-5.40) M/uL Hgb 8.8 L (12.0-16.0) g/dl Hct 29.4 L (37.0-47.0) % Plt Count 277 (130-400) K/uL Comprehensive Metabolic Panel 07/31/23 Range/Units 06:07 Sodium 143 (136-145) mmol/L Potassium 3.6 (3.5-5.1) mmol/L Chloride 108 H (98-107) mmol/L Carbon Dioxide 28 (21-32) mmol/L BUN 11 (6-23) mg/dl Creatinine 0.98 (0.6-1.2) mg/dl Glucose 101 H (70-99(Fasting)) mg/dl Calcium 8.2 L (8.6-10.3) mg/dl AST 17 (13-39) U/L ALT 12 (7-52) U/L Alkaline Phosphatase 60 (34-104) U/L Total Protein 6.0 (6.0-8.3) gm/dl Albumin 3.0 L (3.4-5.0) gm/dl Intake and Output 07/30/23 07/31/23 07/31/23 22:59 06:59 14:59 Intake Total 1365 / 1465 100 / 1465 100 / 100 Output Total 400 / 400 Balance 965 / 1065 100 / 1065 100 / 100 Intake: IV 100 / 200 100 / 200 100 / 100 Aztreonam 2,000 mg In Dextrose 100 / 200 100 / 200 100 / 100 5% Mini-B 100 ml @ 100 mls/hr IV Q8H [facility] Rx#:[id number] Oral 1265 / 1265 Output: Gastric Drainage 400 / 400 Ileostomy/Colostomy 400 / 400 Other: Other Intake Source npo # Unmeasured Voids 2 Weight 79.2 kg 79.2 kg Patient Weight 08/01/23 06:59 Weight 79.2 kg Diagnostic Findings Colonoscopy performed 07/31/2023 without findings to suggest a cause of bleeding/anemia (3) GI (gastrointestinal bleed) GI bleed type/associated pathology: unspecified gastrointestinal hemorrhage type Qualified Code(s): K92.2 - Gastrointestinal hemorrhage, unspecified
--- NOTE | 2023-07-31 15:01 | Anesthesiology Progress Note ---
Date of Service July 31, 2023 Anesthesia Post Procedure Vital Signs Vital Signs: Temp Pulse Pulse Pulse Resp BP BP 07/31/23 12:00 36.8 C 89 16 153/71 H 07/31/23 09:38 83 18 151/72 H 07/31/23 09:25 93 H 16 167/88 H 07/31/23 09:10 76 18 140/80 07/31/23 08:23 36.9 C 61 60 18 148/50 H 07/31/23 07:16 90 18 07/31/23 03:30 61 07/31/23 02:51 37.1 C 55 L 18 128/66 07/30/23 22:58 36.9 C 64 18 158/50 H 07/30/23 20:00 07/30/23 19:25 36.8 C 79 20 160/61 H 07/30/23 17:47 87 15 07/30/23 17:17 37.3 C 70 18 148/68 H 07/30/23 15:14 63 Pulse Ox O2 Del Method O2 Flow Rate 07/31/23 12:00 96 Nasal Cannula 3 07/31/23 09:38 95 Nasal Cannula 3 07/31/23 09:25 97 Nasal Cannula 4 07/31/23 09:10 93 Nasal Cannula 4 07/31/23 08:23 94 Room Air 07/31/23 07:16 92 Nasal Cannula 4 07/31/23 03:30 07/31/23 02:51 94 Nasal Cannula 07/30/23 22:58 96 Nasal Cannula 07/30/23 20:00 Nasal Cannula 3 07/30/23 19:25 96 Nasal Cannula 07/30/23 17:47 95 Nasal Cannula 5 07/30/23 17:17 100 Nasal Cannula 4 07/30/23 15:14 Transfer of Care Handoff Completed per policy Notes Mental Status: alert / awake / arousable and participated in evaluation Nausea / Vomiting: adequately controlled Pain: adequately controlled Airway Patency, RR, SpO2: stable & adequate BP & HR: stable & adequate Hydration State: stable & adequate Anesthetic Complications: no major complications apparent and Pt Satisfied with anesthetic care
[2023-07-31] MEDS: NITROFURANTOIN MONOHYDRATE 100 MG CAP PO SCH ×2 (18:45→21:01)
[2023-08-01 06:31] LABS: Hematocrit (blood only) 26.4 % (37.0-47.0); Hemoglobin 8.2 g/dl (12.0-16.0); Mean Corpuscular Hemoglobin 28.2 pg (25.0-34.0); Mean Corpuscular Hgb Conc 31.1 g/dL (32.0-36.0); Mean Corpuscular Volume 90.7 fL (80.0-100.0); Mean Platelet Volume 9.5 fL (9.4-12.4); Platelet Count 241 K/uL (130-400); RDW Coefficient of Variation 18.2 % (11.5-14.5); RDW Standard Deviation 60.7 fL (36.4-46.3); Red Blood Count 2.91 M/uL (4.20-5.40); White Blood Count 7.18 K/ul (4.8-10.8)
[2023-08-01 06:50] LABS: Albumin Level 2.8 gm/dl (3.4-5.0); BUN Creatinine Ratio 12.5 (10-20); Bilirubin,Total 0.3 mg/dl (0.2-1.0); Calcium 8.2 mg/dl (8.6-10.3); Creatinine Clr Calc Pharmacy 35.8 ml/min; Est GFR (African American) 53.4 ml/min; Globulin 2.7 gm/dl (2.5-4.0); Magnesium 1.8 mg/dl (1.7-2.4); Phosphorus 3.9 mg/dl (2.5-4.9); Potassium 3.7 mmol/L (3.5-5.1); Total Protein 5.5 gm/dl (6.0-8.3)
[2023-08-01] MEDS: BUDESONIDE 0.25 MG/2 ML VIAL (PULMICORT) INH SCH ×2 (07:19→19:38)
[2023-08-01] MEDS: ALBUT/IPRATROP 3MG/0.5MG NEB 3 ML VIAL INH PRN (07:22)
--- NOTE | 2023-08-01 08:50 | Hospitalist Progress Note ---
Date of Service August 01, 2023 Assessment & Plan (1) Anemia: (2) Weakness: (3) GI (gastrointestinal bleed): (4) PAF (paroxysmal atrial fibrillation): (5) Chronic respiratory failure with hypoxia: (6) COPD (chronic obstructive pulmonary disease): (7) FRANCIS (obstructive sleep apnea): (8) CKD (chronic kidney disease), stage III: (9) HTN (hypertension): (10) Tobacco dependence due to cigarettes: (11) Diverticulitis: (12) Colostomy in place: (13) UTI (urinary tract infection): Plan Pt is a 83yoF with PMHx significant for IBD noted on pathology in 2021, history of diverticulitis and resection of large bowel with colostomy, chronic hypoxemic respiratory failure, COPD, FRANCIS on 3L NC, paroxysmal atrial fibrillation on Xarelto, hypertension, CKD 3, depression who presented with melena and generalized weakness over the past 2 months in the setting of a GI Bleed. Acute blood loss anemia Iron Deficiency Anemia GI Bleed Generalized weakness- likely in setting of above Progressive weakness, lightheadedness and darkened ostomy output over the past 2 months Colonoscopy in 2021 with evidence of inflammatory changes, pathology noting chronic active colitis most consistent with IBD. Hgb 6.9 on admission (baseline hgb ~14), was transfused 1U pRBC with hgb of 7.7 Iron level of 13, supplemented with IV Venofer Vit b12 and folate level wnl s/p EGD on 07/26 with GI, appreciate recs -noted gastric ulcers (likely cause of melena), nonobstructing Schatzki ring, small hiatal hernia -biopsy/pathology of gastric ulcer noting only inflamed mucosa -NO NSAIDS, likely cause of gastric ulcers per GI -pantoprazole 40mg daily x 3 months -sucralfate 1gm QID x 10 days -hold anticoagulation (home Xarelto) for 1 week -repeat EGD in 3 months s/p colonoscopy on 07/31, noted: "-an unremarkable left ostomy. -extensive diverticula throughout the descending colon - 6 mm polyp in the descending colon -extensive pseudopolyposis throughout the transverse and ascending colon. -No evidence of active colitis. -Random biopsies done -ascending colon end to end functional side to side anastamosis. The anastamosis was unremarkable. -ileum was unremarkable." Monitor H/H with AM labs PT/OT orders placed 07/28-hgb trending down. closely monitor, will likely need another transfusion. 07/29-hgb with continued downtrend, this AM 7.0. Discussion with pt about transfusion given her persistent dizziness and SOB. Pt agreeable. Will transfuse 1U, repeat H/H afterwards. GI re-consulted for further recs, appreciated. 07/30-Pt to have colonoscopy on 07/31, NPO after midnight. Golytely prep at 6pm today. Continue clear liquid diet 07/31- colonoscopy completed in the AM, no evidence of bleeding. Hgb up to 8.8 today, highest it has been this admission. Continuing to hold home xarelto today, scheduled to resume on 08/01 per previous recs from GI. Appreciate GI recs. 08/01- Xarelto and verapamil resumed (verapamil at a lower dose). Continue to monitor effects. Second degree/third degree Heart block On 07/27, pt with episode of dizziness and SOB, and increasing episodes of bradycardia. EKG obtained at that time concerning for second degree heart block, pt with also noted episodes of 3rd degree heart block on telemetry Stat trop slightly elevated at 15.1 Urgent echo ordered and pending. Labs at that time showed stable H/H with hgb at 7.8, normal mag and phos but elevated Cr from 1.52 earlier in the day to approximately 1.9. VBG with no pressing concern Chest xray with no acute concerns, noted known emphysema. Cardiology was consulted- appreciate recs -Holding home Flecainide and Verapamil -Pacer pads in place on pt -Attending Marine Scientist had discussion with pt about code status-she agreed to be a full code until issue resolves with med changes/possible pacemaker placement. Will resume DNR/DNI status afterwards. 07/28- no further episodes with meds held, appreciate further cardiology recs. 07/29-no further episodes of second/third degree heart block. Verapamil and Flecainide still on hold, appreciate cardiology recs 07/30-stable, no indication for pacemaker placement at this time 07/31- stable, appreciate cardiology recs 08/01-stable, pt with nonsustained run of v tach overnight. Appreciate cardiology recs. PAF (paroxysmal atrial fibrillation) Pt previously in sinus rhythm on admission Treated outpt with flecainide and verapamil, currently on hold on 07/27 as noted above in setting of concerning second/third degree heart block Anticoagulated with xarelto, holding for 1 week per GI recs above- would be scheduled to resume on 08/01 Continue to monitor on telemetry Complicated UTI UA on admission suggestive of infection Urine Cx currently grew Enterococcus faecalis Started on Aztreonam (pt with many antibiotic allergies) and narrowed to macrobid (Day 7 of abx on 08/01) Continue to monitor symptoms Hyperkalemia Potassium of 5.2 on admission Has since downtrended to normal limits Continue to monitor Hypophosphatemia repleted as needed On daily supplements at this time Chronic respiratory failure with hypoxia COPD (chronic obstructive pulmonary disease) FRANCIS (obstructive sleep apnea) Pt states that she uses 3L at baseline, both with rest and ambulation No longer uses CPAP at night, does not want a new machine Continue home Budesonide, Anoro inh, Duonebs PRN Home Atrovent on hold as Duonebs ordered contains ipratropium Acute on chronic kidney Disease Cr 1.51 (Baseline Cr mid 1s) Was acutely elevated to 1.9 on 07/27 Lisinopril was held and pt received 1L of NSS Cr was downtrending afterwards Lisinopril has since been resumed by cardiology HTN (hypertension) BP was elevated on admission Continue lisinopril at this time Home Verapamil was restarted on 08/01 at lower dose by cardiology Continue to monitor BP Tobacco dependence due to cigarettes Still smoking 3-4 cigarettes daily Encourage cessation IBD Diverticulitis Colostomy in place H/o colon resection in 2019 at [facility] Has colostomy bag in place Mood Continue home lexapro Urinary Urgency Continue oxybutynin Diet: HH DVT Ppx: Xarelto resumed on 08/01 Code status: FULL Dispo: Pt wants Home with nursing services Admission and Anticipated Discharge Date Admission Date: July 25, 2023 Subjective Reportedly, pt had an asymptomatic 8 beat run of v tach overnight while talking on cellphone. States that she feels the same. Tired, a little lightheaded. But otherwise denied acute concerns. Review of Systems Review of Systems: All systems reviewed & are unremarkable except as noted in Subjective Physical Exam Physical Exam: General: Alert, oriented. No acute distress sitting in chair at bedside Psych: Appropriate mood and affect Neuro: CNII-XII grossly intact, No gross deficits HEENT: NC/AT, NC in nares Chest: Nontender to palpation. CV: Regular Resp: Breath sounds coarse bilaterally, no increased effort of breathing at that time. Abdomen: Soft, colostomy bag in place Extremities: edema in lower extremities, L>R Results & Data Results & Data Vital Signs (Past 12 Hours) Vital Signs Temp Pulse Pulse Resp BP BP Pulse Ox 08/01/23 07:25 36.7 C 81 22 166/75 H 97 08/01/23 07:20 72 24 90 08/01/23 03:23 36.8 C 62 18 137/78 91 08/01/23 00:03 37.0 C 62 18 146/59 H 91 07/31/23 23:21 60 07/31/23 22:02 O2 Del Method O2 Flow Rate 08/01/23 07:25 Nasal Cannula 4 08/01/23 07:20 Nasal Cannula 4 08/01/23 03:23 Nasal Cannula 3 08/01/23 00:03 Nasal Cannula 3 07/31/23 23:21 07/31/23 22:02 Nasal Cannula 3 (1) Anemia Anemia type: unspecified type Qualified Code(s): D64.9 - Anemia, unspecified (3) GI (gastrointestinal bleed) GI bleed type/associated pathology: unspecified gastrointestinal hemorrhage type Qualified Code(s): K92.2 - Gastrointestinal hemorrhage, unspecified
[2023-08-01] MEDS: lisinopril 2.5 MG TAB PO SCH (09:03)
[2023-08-01] MEDS: OXYBUTYNIN CHLORIDE XL 5 MG TABCR PO SCH (09:03)
[2023-08-01] MEDS: CEROVITE ADV FORMULA TAB PO SCH (09:03)
[2023-08-01] MEDS: PANTOprazole 40 MG TAB PO SCH (09:03)
[2023-08-01] MEDS: VERAPAMIL HCL 120 MG TABCR PO SCH (09:03)
[2023-08-01] MEDS: ESCITALOPRAM OXALATE 10 MG TAB PO SCH (09:03)
[2023-08-01] MEDS: NITROFURANTOIN MONOHYDRATE 100 MG CAP PO SCH ×2 (09:04→20:18)
[2023-08-01] MEDS: SUCRALFATE 1 GM/10 ML UDC PO SCH ×4 (09:04→20:17)
[2023-08-01] MEDS: POT PHOSPHATE MONOBASIC W/ SOD TAB PO SCH ×4 (09:04→20:18)
[2023-08-01] MEDS: UMECLIDINIUM/VILANTEROL 62.5/25MCG 7 PUFFS/INHALER INH SCH (09:04)
--- NOTE | 2023-08-01 11:34 | Cardiology Progress Note ---
Date of Service August 01, 2023 Assessment & Plan (1) Atrioventricular (AV) dissociation: (2) PAF (paroxysmal atrial fibrillation): (3) GI (gastrointestinal bleed): (4) CKD (chronic kidney disease), stage III: Plan Impression: Medically complex, acutely ill 83-year-old female admitted for acute GI bleed. Carries a history of paroxysmal atrial fibrillation normally maintained in sinus rhythm with flecainide and verapamil. Intermittent third-degree AV block noted on telemetry starting at approximately 1120 on 07/27/2023. Rhythm improved with holding of flecainide and verapamil. Telemetry findings 08/01/23: SB in the 50s at rest. No AV Block. 8 beat run of NSVT at 18:42 on 07/31 5 beat run of NSVT at 8:49 am Plan: AV block disassociation: Improved on telemetry-- now showing SR with first degree AVB. Resume verapamil ER , 120 mg daily on 08/01/23 (outpt dose was 240 mg daily). Remain off of flecainide. Paroxysmal atrial fibrillation None seen on telemetry Plan as stated above.Resume Xarelto 15 mg daily on 08/01/23. GI bleed: Underwent endoscopy on 07/26-- nonbleeding superficial gastric ulcers noted moderate in severity with no active bleeding. + Nonobstructing Schatzki ring and a small hiatal hernia noted. Treated with PPI and Carafate Received 1 unit of PRBCs and IV iron 07/26/2023,and another unit of PRBCs on . Resume Xarelto 15 mg daily on 08/01/23. CKD/HTN: LOPEZ noted this admission , improved. Lisinopril resumed with stable renal function and potassium. This chart was completed in part utilizing Speech Voice Recognition Software. Grammatical errors, random word insertions, pronoun errors, and incomplete sentences are an occasional consequence of this system due to software limitations, ambient noise, and hardware issues. Any formal questions or concerns about the content, text, or information contained within the body of this dictation should be directly addressed to the provider for clarification. Admission and Anticipated Discharge Date Admission Date: July 25, 2023 Hemant Beaulieu is seen in cardiology follow up. She is currently resting in the bedside chair. She is on 4 l/m of oxygen via NC , and uses 3 l/m on a chronic basis at home. Telemetry findings noted in assessment and plan. Physical Exam Constitutional: + ill appearing; no acute distress Respiratory: normal respiratory effort and able to speak in complete sentences; no cough and not tachypneic Auscultation: + diminished lung sounds, + rhonchi and + wheezes (mid and apical wheezing noted ) Cardiovascular: Rate/Rhythm: regular rate and regular rhythm Heart Sounds: normal S1 and normal S2; no murmur (No murmur appreciated on exam) Vessels: no JVD Extremities: no edema Skin: no rashes, warm and dry Psychiatric: Orientation: alert and oriented x 3 Results & Data Vital Signs (Past 12 Hours) Vital Signs Temp Pulse Resp BP BP Pulse Ox O2 Del Method 08/01/23 11:16 37.1 C 64 22 151/61 H 96 Nasal Cannula 08/01/23 11:03 90 08/01/23 10:05 97 08/01/23 07:25 36.7 C 81 22 166/75 H 97 Nasal Cannula 08/01/23 07:20 72 24 90 Nasal Cannula 08/01/23 03:23 36.8 C 62 18 137/78 91 Nasal Cannula 08/01/23 00:03 37.0 C 62 18 146/59 H 91 Nasal Cannula O2 Flow Rate 08/01/23 11:16 4 08/01/23 11:03 4 08/01/23 10:05 08/01/23 07:25 4 08/01/23 07:20 4 08/01/23 03:23 3 08/01/23 00:03 3 Diagnostic Findings Echo this hospital stay: LVEF 65-70% Mild MR Trace TR (3) GI (gastrointestinal bleed) GI bleed type/associated pathology: unspecified gastrointestinal hemorrhage type Qualified Code(s): K92.2 - Gastrointestinal hemorrhage, unspecified
[2023-08-01] MEDS: RIVAROXABAN 15 MG TAB PO SCH (20:18)
[2023-08-02] MEDS: BUDESONIDE 0.25 MG/2 ML VIAL (PULMICORT) INH SCH ×2 (06:38→19:26)
[2023-08-02 06:59] LABS: Hematocrit (blood only) 27.4 % (37.0-47.0); Hemoglobin 8.6 g/dl (12.0-16.0); Mean Corpuscular Hemoglobin 28.6 pg (25.0-34.0); Mean Corpuscular Hgb Conc 31.4 g/dL (32.0-36.0); Mean Platelet Volume 9.7 fL (9.4-12.4); Platelet Count 243 K/uL (130-400); RDW Coefficient of Variation 17.9 % (11.5-14.5); RDW Standard Deviation 59.9 fL (36.4-46.3); Red Blood Count 3.01 M/uL (4.20-5.40); White Blood Count 7.22 K/ul (4.8-10.8)
[2023-08-02 07:07] LABS: BUN Creatinine Ratio 12.5 (10-20); Calcium 8.3 mg/dl (8.6-10.3); Creatinine Clr Calc Pharmacy 33.6 ml/min; Est GFR (African American) 49.1 ml/min; Est GFR (Non-African American) 42.4 ml/min; Magnesium 1.8 mg/dl (1.7-2.4); Phosphorus 4.4 mg/dl (2.5-4.9); Potassium 3.9 mmol/L (3.5-5.1)
--- NOTE | 2023-08-02 08:22 | Hospitalist Progress Note ---
Date of Service August 02, 2023 Assessment & Plan (1) Anemia: (2) Weakness: (3) GI (gastrointestinal bleed): (4) PAF (paroxysmal atrial fibrillation): (5) Chronic respiratory failure with hypoxia: (6) COPD (chronic obstructive pulmonary disease): (7) FRANCIS (obstructive sleep apnea): (8) CKD (chronic kidney disease), stage III: (9) HTN (hypertension): (10) Tobacco dependence due to cigarettes: (11) Diverticulitis: (12) Colostomy in place: (13) UTI (urinary tract infection): Plan Pt is a 83yoF with PMHx significant for IBD noted on pathology in 2021, history of diverticulitis and resection of large bowel with colostomy, chronic hypoxemic respiratory failure, COPD, FRANCIS on 3L NC, paroxysmal atrial fibrillation on Xarelto, hypertension, CKD 3, depression who presented with melena and generalized weakness over the past 2 months in the setting of a GI Bleed. Acute blood loss anemia Iron Deficiency Anemia GI Bleed Generalized weakness- likely in setting of above Progressive weakness, lightheadedness and darkened ostomy output over the past 2 months Colonoscopy in 2021 with evidence of inflammatory changes, pathology noting chronic active colitis most consistent with IBD. Hgb 6.9 on admission (baseline hgb ~14), was transfused 1U pRBC with hgb of 7.7 Iron level of 13, supplemented with IV Venofer Vit b12 and folate level wnl s/p EGD on 07/26 with GI, appreciate recs -noted gastric ulcers (likely cause of melena), nonobstructing Schatzki ring, small hiatal hernia -biopsy/pathology of gastric ulcer noting only inflamed mucosa -NO NSAIDS, likely cause of gastric ulcers per GI -pantoprazole 40mg daily x 3 months -sucralfate 1gm QID x 10 days -hold anticoagulation (home Xarelto) for 1 week -repeat EGD in 3 months s/p colonoscopy on 07/31, noted: "-an unremarkable left ostomy. -extensive diverticula throughout the descending colon - 6 mm polyp in the descending colon -extensive pseudopolyposis throughout the transverse and ascending colon. -No evidence of active colitis. -Random biopsies done -ascending colon end to end functional side to side anastamosis. The anastamosis was unremarkable. -ileum was unremarkable." Monitor H/H with AM labs PT/OT orders placed 07/28-hgb trending down. closely monitor, will likely need another transfusion. 07/29-hgb with continued downtrend, this AM 7.0. Discussion with pt about transfusion given her persistent dizziness and SOB. Pt agreeable. Will transfuse 1U, repeat H/H afterwards. GI re-consulted for further recs, appreciated. 07/30-Pt to have colonoscopy on 07/31, NPO after midnight. Golytely prep at 6pm today. Continue clear liquid diet 07/31- colonoscopy completed in the AM, no evidence of bleeding. Hgb up to 8.8 today, highest it has been this admission. Continuing to hold home xarelto today, scheduled to resume on 08/01 per previous recs from GI. Appreciate GI recs. 08/01- Xarelto and verapamil resumed (verapamil at a lower dose). Continue to monitor effects. Second degree/third degree Heart block On 07/27, pt with episode of dizziness and SOB, and increasing episodes of bradycardia. EKG obtained at that time concerning for second degree heart block, pt with also noted episodes of 3rd degree heart block on telemetry Stat trop slightly elevated at 15.1 Urgent echo ordered and pending. Labs at that time showed stable H/H with hgb at 7.8, normal mag and phos but elevated Cr from 1.52 earlier in the day to approximately 1.9. VBG with no pressing concern Chest xray with no acute concerns, noted known emphysema. Cardiology was consulted- appreciate recs -Holding home Flecainide and Verapamil -Pacer pads in place on pt -Attending Licensed Embalmer Supervisor had discussion with pt about code status-she agreed to be a full code until issue resolves with med changes/possible pacemaker placement. Will resume DNR/DNI status afterwards. 07/28- no further episodes with meds held, appreciate further cardiology recs. 07/29-no further episodes of second/third degree heart block. Verapamil and Flecainide still on hold, appreciate cardiology recs 07/30-stable, no indication for pacemaker placement at this time 07/31- stable, appreciate cardiology recs 08/01-stable, pt with nonsustained run of v tach overnight. Appreciate cardiology recs. PAF (paroxysmal atrial fibrillation) Pt previously in sinus rhythm on admission Treated outpt with flecainide and verapamil, currently on hold on 07/27 as noted above in setting of concerning second/third degree heart block Anticoagulated with xarelto, holding for 1 week per GI recs above- would be scheduled to resume on 08/01 Continue to monitor on telemetry Complicated UTI UA on admission suggestive of infection Urine Cx currently grew Enterococcus faecalis Started on Aztreonam (pt with many antibiotic allergies) and narrowed to macrobid (Day 7 of abx on 08/01) Continue to monitor symptoms Hyperkalemia Potassium of 5.2 on admission Has since downtrended to normal limits Continue to monitor Hypophosphatemia repleted as needed On daily supplements at this time Chronic respiratory failure with hypoxia COPD (chronic obstructive pulmonary disease) FRANCIS (obstructive sleep apnea) Pt states that she uses 3L at baseline, both with rest and ambulation No longer uses CPAP at night, does not want a new machine Continue home Budesonide, Anoro inh, Duonebs PRN Home Atrovent on hold as Duonebs ordered contains ipratropium Acute on chronic kidney Disease Cr 1.51 (Baseline Cr mid 1s) Was acutely elevated to 1.9 on 07/27 Lisinopril was held and pt received 1L of NSS Cr was downtrending afterwards Lisinopril has since been resumed by cardiology HTN (hypertension) BP was elevated on admission Continue lisinopril at this time Home Verapamil was restarted on 08/01 at lower dose by cardiology Continue to monitor BP Tobacco dependence due to cigarettes Still smoking 3-4 cigarettes daily Encourage cessation IBD Diverticulitis Colostomy in place H/o colon resection in 2019 at [facility] in [place] Has colostomy bag in place Mood Continue home lexapro Urinary Urgency Continue oxybutynin Diet: HH DVT Ppx: Xarelto resumed on 08/01 Code status: FULL Dispo: Pt wants Home with nursing services Admission and Anticipated Discharge Date Admission Date: July 25, 2023 Subjective Pt seen in follow up of anemia, GI bleed, hx of afib on xarelto, xarelto resumed Currently sitting up in chair in NAD, overall feeling well but reports feeling lightheaded and little short of breath with ambulation. No blood in stool. No fever chills, chest pain. No abd. pain. Review of Systems Review of Systems: All systems reviewed & are unremarkable except as noted in Subjective Physical Exam Physical Exam: General: WD/WN F in NAD sitting in chair HEENT: NC/AT, NC placed, suppl. O2 Chest: Nontender to palpation. CV: Regular Resp: + rhonchi b/l, no increased effort of breathing at that time. Abdomen: Soft, colostomy bag in place, brown stool output noted Extremities: mild edema in lower extremities Psych: Appropriate mood and affect Neuro: awake, and alert, answers appropriately, no facial asymmetry, moves extremities Results & Data Results & Data Vital Signs (Past 12 Hours) Vital Signs Temp Pulse Pulse Resp BP Pulse Ox O2 Del Method 08/02/23 08:00 36.7 C 62 20 148/60 H 92 Nasal Cannula 08/02/23 06:39 59 L 16 94 Nasal Cannula 08/02/23 03:00 36.1 C L 62 20 146/94 H 95 Nasal Cannula 08/02/23 01:00 57 L 08/01/23 23:03 37.0 C 70 20 145/60 H 91 Nasal Cannula 08/01/23 22:00 Nasal Cannula O2 Flow Rate 08/02/23 08:00 4.0 08/02/23 06:39 4 08/02/23 03:00 4.5 08/02/23 01:00 08/01/23 23:03 4.5 08/01/23 22:00 4 Laboratory Results 08/02/23 Range/Units 05:39 WBC 7.22 (4.8-10.8) K/ul RBC 3.01 L (4.20-5.40) M/uL Hgb 8.6 L (12.0-16.0) g/dl Hct 27.4 L (37.0-47.0) % MCV 91.0 (80.0-100.0) fL MCH 28.6 (25.0-34.0) pg MCHC 31.4 L (32.0-36.0) g/dL RDW Std Deviation 59.9 H (36.4-46.3) fL RDW Coeff of Lynn 17.9 H (11.5-14.5) % Plt Count 243 (130-400) K/uL MPV 9.7 (9.4-12.4) fL Sodium 143 (136-145) mmol/L Potassium 3.9 (3.5-5.1) mmol/L Chloride 105 (98-107) mmol/L Carbon Dioxide 33 H (21-32) mmol/L Anion Gap 5 (3-11) BUN 15 (6-23) mg/dl Creatinine 1.20 (0.6-1.2) mg/dl Est Cr Clr Drug Dosing 33.6 ml/min Est GFR ( Amer) 49.1 ml/min Est GFR (Non-Af Amer) 42.4 ml/min BUN/Creatinine Ratio 12.5 (10-20) Glucose 103 H (70-99(Fasting)) mg/dl Calcium 8.3 L (8.6-10.3) mg/dl Phosphorus 4.4 (2.5-4.9) mg/dl Magnesium 1.8 (1.7-2.4) mg/dl Medications Administered Current Inpatient Medications Acetaminophen (Acetaminophen 325 Mg Tab) 325 mg PO Q6H PRN PRN Reason: Pain Stop: 08/24/23 16:18 Albuterol (Albuterol Hfa 8 Gm Inhaler) 1 puffs INH QID PRN PRN Reason: Shortness Of Breath Stop: 08/24/23 16:18 Albuterol (Albut/Ipratrop 3mg/0.5mg Neb 3 Ml Vial) 3 ml INH Q4H PRN; Protocol PRN Reason: Wheezing Stop: 08/24/23 16:18 Last Admin: 08/01/23 07:22 Dose: 3 ml Artificial Tears (Artificial Tears) 1 drops OP QID PRN PRN Reason: DRY EYES Stop: 08/25/23 14:25 Budesonide (Budesonide 0.25 Mg/2 Ml Vial (Pulmicort)) 0.25 mg INH BIDR [place] Stop: 08/24/23 18:59 Last Admin: 08/02/23 06:38 Dose: 0.25 mg Escitalopram Oxalate (Escitalopram Oxalate 10 Mg Tab) 10 mg PO QAM [facility] Stop: 08/25/23 08:59 Last Admin: 08/01/23 09:03 Dose: 10 mg Lisinopril (Lisinopril 2.5 Mg Tab) 2.5 mg PO QAM [facility] Stop: 08/25/23 08:59 Last Admin: 08/01/23 09:03 Dose: 2.5 mg Multivitamins/Minerals (Cerovite Adv Formula Tab) [facility] Stop: 08/25/23 08:59 Last Admin: 08/01/23 09:03 Dose: 1 tab Nitrofurantoin Macrocrystals (Nitrofurantoin Monohydrate 100 Mg Cap) 100 mg PO BID [facility] Stop: 08/10/23 14:24 Last Admin: 08/01/23 20:18 Dose: 100 mg Ondansetron HCl (Ondansetron Inj 2 Mg/Ml 2 Ml Vial) 4 mg IV Q6H PRN PRN Reason: Nausea Stop: 08/24/23 17:44 Oxybutynin Chloride (Oxybutynin Chloride Xl 5 Mg Tabcr) 5 mg PO [facility]; Protocol Stop: 08/25/23 08:59 Last Admin: 08/01/23 09:03 Dose: 5 mg Pantoprazole Sodium (Pantoprazole 40 Mg Tab) 40 mg PO [facility] Stop: 08/25/23 11:44 Last Admin: 08/01/23 09:03 Dose: 40 mg Potassium Phosphate (Pot Phosphate Monobasic W/ Sod Tab) 2 tab PO QID [facility] Stop: 08/27/23 12:59 Last Admin: 08/01/23 20:18 Dose: 2 tab Rivaroxaban (Rivaroxaban 15 Mg Tab) 15 mg PO QDD [facility] Stop: 08/31/23 19:14 Last Admin: 08/01/23 20:18 Dose: 15 mg Sucralfate (Sucralfate 1 Gm/10 Ml Udc) 1 gm PO QID [facility] Stop: 08/25/23 12:59 Last Admin: 08/01/23 20:17 Dose: 1 gm Triamcinolone Acetonide (Triamcinolone Acet 0.1% Oint 15 Gm Tube) 1 appln EXT BID PRN; Protocol PRN Reason: AFFECTED AREA Stop: 08/24/23 16:42 Umeclidinium/Vilanterol (Umeclidinium/Vilanterol 62.5/25mcg 7 Puffs/Inhaler) 1 puffs INH [facility] Stop: 08/25/23 08:59 Last Admin: 08/01/23 09:04 Dose: 1 puffs Verapamil HCl (Verapamil Hcl 120 Mg Tabcr) 120 mg PO [facility] Stop: 08/31/23 08:59 Last Admin: 08/01/23 09:03 Dose: 120 mg (1) Anemia Anemia type: unspecified type Qualified Code(s): D64.9 - Anemia, unspecified (3) GI (gastrointestinal bleed) GI bleed type/associated pathology: unspecified gastrointestinal hemorrhage type Qualified Code(s): K92.2 - Gastrointestinal hemorrhage, unspecified
[2023-08-02] MEDS: NITROFURANTOIN MONOHYDRATE 100 MG CAP PO SCH ×2 (08:51→20:15)
[2023-08-02] MEDS: OXYBUTYNIN CHLORIDE XL 5 MG TABCR PO SCH (08:51)
[2023-08-02] MEDS: lisinopril 2.5 MG TAB PO SCH (08:51)
[2023-08-02] MEDS: CEROVITE ADV FORMULA TAB PO SCH (08:51)
[2023-08-02] MEDS: VERAPAMIL HCL 120 MG TABCR PO SCH (08:51)
[2023-08-02] MEDS: ESCITALOPRAM OXALATE 10 MG TAB PO SCH (08:51)
[2023-08-02] MEDS: PANTOprazole 40 MG TAB PO SCH (08:51)
[2023-08-02] MEDS: SUCRALFATE 1 GM/10 ML UDC PO SCH ×4 (08:52→20:16)
[2023-08-02] MEDS: UMECLIDINIUM/VILANTEROL 62.5/25MCG 7 PUFFS/INHALER INH SCH (08:52)
[2023-08-02] MEDS: POT PHOSPHATE MONOBASIC W/ SOD TAB PO SCH ×4 (08:52→20:15)
[2023-08-02] MEDS: RIVAROXABAN 15 MG TAB PO SCH (17:22)
--- NOTE | 2023-08-02 17:32 | Cardiology Progress Note ---
Date of Service August 02, 2023 Assessment & Plan (1) Atrioventricular (AV) dissociation: (2) PAF (paroxysmal atrial fibrillation): (3) GI (gastrointestinal bleed): (4) CKD (chronic kidney disease), stage III: Plan Impression: Medically complex, acutely ill 83-year-old female admitted for acute GI bleed. Carries a history of paroxysmal atrial fibrillation normally maintained in sinus rhythm with flecainide and verapamil. Intermittent third-degree AV block noted on telemetry starting at approximately 1120 on 07/27/2023. Rhythm improved with holding of flecainide and verapamil. Telemetry findings 08/01/23: SB in the 50s at rest. No AV Block. 8 beat run of NSVT at 18:42 on 07/31/23 5 beat run of NSVT at 8:49 am on 07/31/2023 Telemetry findings 08/02/2023: Sinus rhythm and sinus bradycardia in the 50s to 60s, several very short episodes of accelerated junctional rhythm at 50 bpm. No prolonged bradycardia. Occasional blocked PACs. Plan: Tolerating verapamil, prior to hospital dose of 240 mg daily reduced to 120 mg daily. Prior to hospital treatment with flecainide discontinued. Hemoglobin stable having resumed Xarelto. This chart was completed in part utilizing Speech Voice Recognition Software. Grammatical errors, random word insertions, pronoun errors, and incomplete sentences are an occasional consequence of this system due to software limitations, ambient noise, and hardware issues. Any formal questions or conc erns about the content, text, or information contained within the body of this dictation should be directly addressed to the provider for clarification. Admission and Anticipated Discharge Date Admission Date: July 25, 2023 Subjective Patient seen in cardiology follow-up. Notes generalized weakness otherwise no complaints. Telemetry reveals sinus rhythm and sinus bradycardia in the 50s to 60s. Several very brief episodes of junctional rhythm at 50 bpm noted today without prolonged bradycardia. Blood pressure stable. Wheezing noted. Physical Exam Constitutional: no acute distress Respiratory: normal respiratory effort and able to speak in complete sentences; no cough and not tachypneic Auscultation: + diminished lung sounds, + rhonchi and + wheezes (mid and apical wheezing noted ) Cardiovascular: Rate/Rhythm: regular rate and regular rhythm Heart Sounds: normal S1 and normal S2; no murmur (No murmur appreciated on exam) Vessels: no JVD Extremities: no edema Gastrointestinal (Abdomen): Abdomen nontender on palpitation Skin: no rashes, warm and dry Psychiatric: Orientation: alert and oriented x 3 Results & Data Vital Signs (Past 12 Hours) Vital Signs Temp Pulse Resp BP Pulse Ox O2 Del Method O2 Flow Rate 08/02/23 15:44 36.6 C 60 20 147/75 H 95 Nasal Cannula 4.0 08/02/23 10:53 36.9 C 75 20 130/71 92 Nasal Cannula 4.0 08/02/23 08:00 Nasal Cannula 4 08/02/23 08:00 36.7 C 62 20 148/60 H 92 Nasal Cannula 4.0 08/02/23 06:39 59 L 16 94 Nasal Cannula 4 Laboratory Results CBC 08/02/23 Range/Units 05:39 WBC 7.22 (4.8-10.8) K/ul RBC 3.01 L (4.20-5.40) M/uL Hgb 8.6 L (12.0-16.0) g/dl Hct 27.4 L (37.0-47.0) % Plt Count 243 (130-400) K/uL Comprehensive Metabolic Panel 08/02/23 Range/Units 05:39 Sodium 143 (136-145) mmol/L Potassium 3.9 (3.5-5.1) mmol/L Chloride 105 (98-107) mmol/L Carbon Dioxide 33 H (21-32) mmol/L BUN 15 (6-23) mg/dl Creatinine 1.20 (0.6-1.2) mg/dl Glucose 103 H (70-99(Fasting)) mg/dl Calcium 8.3 L (8.6-10.3) mg/dl Intake and Output 08/02/23 08/02/23 08/02/23 06:59 14:59 22:59 Intake Total 640 / 640 Balance 640 / 640 Intake: Oral 640 / 640 Other: # Unmeasured Voids 2 Weight 80.1 kg 80.1 kg Weight Measurement Method Standing Scale Patient Weight 08/03/23 06:59 Weight 80.1 kg (3) GI (gastrointestinal bleed) GI bleed type/associated pathology: unspecified gastrointestinal hemorrhage type Qualified Code(s): K92.2 - Gastrointestinal hemorrhage, unspecified
[2023-08-03 00:54] LABS: Appearance Urine Clear (Clear); Bacteria Urine Automated Negative (Negative); Bilirubin Urine Negative (Negative); Blood Urine 2+ (Negative); Color Urine Yellow; Epithelial Cell Urine Auto >30 /lpf (0-5); Glucose Urine UA Negative (Negative); Ketones Urine Trace (Negative); Leukocyte Esterase Urine 2+ (Negative); Nitrite Urine Negative (Negative); Protein Urine Trace (Negative); RBC Urine Automated >30 /hpf (0-4); Specific Gravity Urine 1.012 (1.000-1.030); Urobilinogen Urine Negative (Negative); WBC Urine Automated >30 /hpf (0-5)
[2023-08-03 05:57] LABS: Hematocrit (blood only) 28.7 % (37.0-47.0); Hemoglobin 8.9 g/dl (12.0-16.0); Mean Corpuscular Hemoglobin 28.3 pg (25.0-34.0); Mean Corpuscular Volume 91.1 fL (80.0-100.0); Mean Platelet Volume 9.5 fL (9.4-12.4); Platelet Count 250 K/uL (130-400); RDW Coefficient of Variation 17.8 % (11.5-14.5); RDW Standard Deviation 59.5 fL (36.4-46.3); Red Blood Count 3.15 M/uL (4.20-5.40); White Blood Count 6.92 K/ul (4.8-10.8)
[2023-08-03 06:15] LABS: BUN Creatinine Ratio 15.5 (10-20); Calcium 8.6 mg/dl (8.6-10.3); Creatinine Clr Calc Pharmacy 39.2 ml/min; Est GFR (Non-African American) 50.9 ml/min; Magnesium 1.7 mg/dl (1.7-2.4); Potassium 3.6 mmol/L (3.5-5.1)
[2023-08-03] MEDS: BUDESONIDE 0.25 MG/2 ML VIAL (PULMICORT) INH SCH ×2 (07:12→19:52)
--- NOTE | 2023-08-03 07:42 | Hospitalist Progress Note ---
Date of Service August 03, 2023 Assessment & Plan (1) Anemia: (2) Weakness: (3) GI (gastrointestinal bleed): (4) PAF (paroxysmal atrial fibrillation): (5) Chronic respiratory failure with hypoxia: (6) COPD (chronic obstructive pulmonary disease): (7) FRANCIS (obstructive sleep apnea): (8) CKD (chronic kidney disease), stage III: (9) HTN (hypertension): (10) Tobacco dependence due to cigarettes: (11) Diverticulitis: (12) Colostomy in place: (13) UTI (urinary tract infection): Plan Pt is a 83yoF with PMHx significant for IBD noted on pathology in 2021, history of diverticulitis and resection of large bowel with colostomy, chronic hypoxemic respiratory failure, COPD, FRANCIS on 3L NC, paroxysmal atrial fibrillation on Xarelto, hypertension, CKD 3, depression who presented with melena and generalized weakness over the past 2 months in the setting of a GI Bleed. Acute blood loss anemia Iron Deficiency Anemia GI Bleed Generalized weakness- likely in setting of above Progressive weakness, lightheadedness and darkened ostomy output over the past 2 months Colonoscopy in 2021 with evidence of inflammatory changes, pathology noting chronic active colitis most consistent with IBD. Hgb 6.9 on admission (baseline hgb ~14), was transfused 1U pRBC with hgb of 7.7 Iron level of 13, supplemented with IV Venofer Vit b12 and folate level wnl s/p EGD on 07/26 with GI, appreciate recs -noted gastric ulcers (likely cause of melena), nonobstructing Schatzki ring, small hiatal hernia -biopsy/pathology of gastric ulcer noting only inflamed mucosa -NO NSAIDS, likely cause of gastric ulcers per GI -pantoprazole 40mg daily x 3 months -sucralfate 1gm QID x 10 days -hold anticoagulation (home Xarelto) for 1 week -repeat EGD in 3 months s/p colonoscopy on 07/31, noted: "-an unremarkable left ostomy. -extensive diverticula throughout the descending colon - 6 mm polyp in the descending colon -extensive pseudopolyposis throughout the transverse and ascending colon. -No evidence of active colitis. -Random biopsies done -ascending colon end to end functional side to side anastamosis. The anastamosis was unremarkable. -ileum was unremarkable." Monitor H/H with AM labs PT/OT orders placed 07/28-hgb trending down. closely monitor, will likely need another transfusion. 07/29-hgb with continued downtrend, this AM 7.0. Discussion with pt about transfusion given her persistent dizziness and SOB. Pt agreeable. Will transfuse 1U, repeat H/H afterwards. GI re-consulted for further recs, appreciated. 07/30-Pt to have colonoscopy on 07/31, NPO after midnight. Golytely prep at 6pm today. Continue clear liquid diet 07/31- colonoscopy completed in the AM, no evidence of bleeding. Hgb up to 8.8 today, highest it has been this admission. Continuing to hold home xarelto today, scheduled to resume on 08/01 per previous recs from GI. Appreciate GI recs. 08/01- Xarelto and verapamil resumed (verapamil at a lower dose). Continue to monitor effects. Second degree/third degree Heart block On 07/27, pt with episode of dizziness and SOB, and increasing episodes of bradycardia. EKG obtained at that time concerning for second degree heart block, pt with also noted episodes of 3rd degree heart block on telemetry Stat trop slightly elevated at 15.1 Urgent echo ordered and pending. Labs at that time showed stable H/H with hgb at 7.8, normal mag and phos but elevated Cr from 1.52 earlier in the day to approximately 1.9. VBG with no pressing concern Chest xray with no acute concerns, noted known emphysema. Cardiology was consulted- appreciate recs -Holding home Flecainide and Verapamil -Pacer pads in place on pt -Attending Residential Service Technician had discussion with pt about code status-she agreed to be a full code until issue resolves with med changes/possible pacemaker placement. Will resume DNR/DNI status afterwards. 07/28- no further episodes with meds held, appreciate further cardiology recs. 07/29-no further episodes of second/third degree heart block. Verapamil and Flecainide still on hold, appreciate cardiology recs 07/30-stable, no indication for pacemaker placement at this time 07/31- stable, appreciate cardiology recs 08/01-stable, pt with nonsustained run of v tach overnight. Appreciate cardiology recs. PAF (paroxysmal atrial fibrillation) Pt previously in sinus rhythm on admission Treated outpt with flecainide and verapamil, currently on hold on 07/27 as noted above in setting of concerning second/third degree heart block Anticoagulated with xarelto, holding for 1 week per GI recs above- would be scheduled to resume on 08/01 Continue to monitor on telemetry Complicated UTI UA on admission suggestive of infection Urine Cx currently grew Enterococcus faecalis Started on Aztreonam (pt with many antibiotic allergies) and narrowed to macrobid (Day 7 of abx on 08/01) Continue to monitor symptoms Hyperkalemia Potassium of 5.2 on admission Has since downtrended to normal limits Continue to monitor Hypophosphatemia repleted as needed On daily supplements at this time Chronic respiratory failure with hypoxia COPD (chronic obstructive pulmonary disease) FRANCIS (obstructive sleep apnea) Pt states that she uses 3L at baseline, both with rest and ambulation No longer uses CPAP at night, does not want a new machine Continue home Budesonide, Anoro inh, Duonebs PRN Home Atrovent on hold as Duonebs ordered contains ipratropium Acute on chronic kidney Disease Cr 1.51 (Baseline Cr mid 1s) Was acutely elevated to 1.9 on 07/27 Lisinopril was held and pt received 1L of NSS Cr was downtrending afterwards Lisinopril has since been resumed by cardiology HTN (hypertension) BP was elevated on admission Continue lisinopril at this time Home Verapamil was restarted on 08/01 at lower dose by cardiology Continue to monitor BP Tobacco dependence due to cigarettes Still smoking 3-4 cigarettes daily Encourage cessation IBD Diverticulitis Colostomy in place H/o colon resection in 2019 at [facility] in [place] Has colostomy bag in place Mood Continue home lexapro Urinary Urgency Continue oxybutynin Diet: HH DVT Ppx: Xarelto resumed on 08/01 Code status: FULL Dispo: Pt wants Home with nursing services Admission and Anticipated Discharge Date Admission Date: July 25, 2023 Subjective Pt seen in follow up of anemia, GI bleed, hx of afib on xarelto, xarelto resumed Currently sitting up in chair in NAD, overall feeling well but reports feeling lightheaded and short of breath with ambulation. No blood in stool. No fever chills, chest pain. No abd. pain. Review of Systems Review of Systems: All systems reviewed & are unremarkable except as noted in Subjective Physical Exam Physical Exam: General: WD/WN F in NAD sitting in chair HEENT: NC/AT, NC placed, suppl. O2 Chest: Nontender to palpation. CV: Regular Resp: + rhonchi b/l, no increased effort of breathing at that time. Abdomen: Soft, colostomy bag in place, brown stool output noted Extremities: mild edema in lower extremities Psych: Appropriate mood and affect Neuro: awake, and alert, answers appropriately, no facial asymmetry, moves extremities Results & Data Results & Data Vital Signs (Past 12 Hours) Vital Signs Temp Pulse Pulse Resp BP Pulse Ox O2 Del Method 08/03/23 07:12 20 Nasal Cannula 08/03/23 03:07 37.0 C 72 20 156/70 H 92 Nasal Cannula 08/02/23 23:39 37.0 C 82 20 163/70 H 91 Nasal Cannula 08/02/23 21:59 64 08/02/23 21:34 Nasal Cannula O2 Flow Rate 08/03/23 07:12 4 08/03/23 03:07 4 08/02/23 23:39 4 08/02/23 21:59 08/02/23 21:34 4 Laboratory Results 08/03/23 08/03/23 Range/Units 05:32 00:40 WBC 6.92 (4.8-10.8) K/ul RBC 3.15 L (4.20-5.40) M/uL Hgb 8.9 L (12.0-16.0) g/dl Hct 28.7 L (37.0-47.0) % MCV 91.1 (80.0-100.0) fL MCH 28.3 (25.0-34.0) pg MCHC 31.0 L (32.0-36.0) g/dL RDW Std Deviation 59.5 H (36.4-46.3) fL RDW Coeff of Lynn 17.8 H (11.5-14.5) % Plt Count 250 (130-400) K/uL MPV 9.5 (9.4-12.4) fL Sodium 143 (136-145) mmol/L Potassium 3.6 (3.5-5.1) mmol/L Chloride 106 (98-107) mmol/L Carbon Dioxide 32 (21-32) mmol/L Anion Gap 5 (3-11) BUN 16 (6-23) mg/dl Creatinine 1.03 (0.6-1.2) mg/dl Est Cr Clr Drug Dosing 39.2 ml/min Est GFR ( Amer) 59.0 ml/min Est GFR (Non-Af Amer) 50.9 ml/min BUN/Creatinine Ratio 15.5 (10-20) Glucose 105 H (70-99(Fasting)) mg/dl Calcium 8.6 (8.6-10.3) mg/dl Phosphorus 4.0 (2.5-4.9) mg/dl Magnesium 1.7 (1.7-2.4) mg/dl Urine Color Yellow Urine Appearance Clear (Clear) Urine pH 7.0 (4.5-7.5) Ur Specific [place] 1.012 (1.000-1.030) Urine Protein Trace H (Negative) Urine Glucose (UA) Negative (Negative) Urine Ketones Trace H (Negative) Urine Blood 2+ H (Negative) Urine Nitrite Negative (Negative) Urine Bilirubin Negative (Negative) Urine Urobilinogen Negative (Negative) Ur Leukocyte Esterase 2+ H (Negative) Urine WBC (Auto) >30 H (0-5) /hpf Urine RBC (Auto) >30 H (0-4) /hpf U Hyaline Cast (Auto) 1-5 (0-5) /lpf U Epithel Cells (Auto) >30 H (0-5) /lpf Urine Bacteria (Auto) Negative (Negative) Medications Administered Current Inpatient Medications Acetaminophen (Acetaminophen 325 Mg Tab) 325 mg PO Q6H PRN PRN Reason: Pain Stop: 08/24/23 16:18 Albuterol (Albuterol Hfa 8 Gm Inhaler) 1 puffs INH QID PRN PRN Reason: Shortness Of Breath Stop: 08/24/23 16:18 Albuterol (Albut/Ipratrop 3mg/0.5mg Neb 3 Ml Vial) 3 ml INH Q4H PRN; Protocol PRN Reason: Wheezing Stop: 08/24/23 16:18 Last Admin: 08/01/23 07:22 Dose: 3 ml Artificial Tears (Artificial Tears) 1 drops OP QID PRN PRN Reason: DRY EYES Stop: 08/25/23 14:25 Budesonide (Budesonide 0.25 Mg/2 Ml Vial (Pulmicort)) 0.25 mg INH BIDR [facility] Stop: 08/24/23 18:59 Last Admin: 08/03/23 07:12 Dose: 0.25 mg Escitalopram Oxalate (Escitalopram Oxalate 10 Mg Tab) 10 mg PO [facility] Stop: 08/25/23 08:59 Last Admin: 08/02/23 08:51 Dose: 10 mg Lisinopril (Lisinopril 2.5 Mg Tab) 2.5 mg PO [facility] Stop: 08/25/23 08:59 Last Admin: 08/02/23 08:51 Dose: 2.5 mg Multivitamins/Minerals (Cerovite Adv Formula Tab) 1 tab PO [facility] Stop: 08/25/23 08:59 Last Admin: 08/02/23 08:51 Dose: 1 tab Nitrofurantoin Macrocrystals (Nitrofurantoin Monohydrate 100 Mg Cap) 100 mg PO BID [facility] Stop: 08/10/23 14:24 Last Admin: 08/02/23 20:15 Dose: 100 mg Ondansetron HCl (Ondansetron Inj 2 Mg/Ml 2 Ml Vial) 4 mg IV Q6H PRN PRN Reason: Nausea Stop: 08/24/23 17:44 Oxybutynin Chloride (Oxybutynin Chloride Xl 5 Mg Tabcr) 5 mg PO [facility]; Protocol Stop: 08/25/23 08:59 Last Admin: 08/02/23 08:51 Dose: 5 mg Pantoprazole Sodium (Pantoprazole 40 Mg Tab) 40 mg PO [facility] Stop: 08/25/23 11:44 Last Admin: 08/02/23 08:51 Dose: 40 mg Potassium Phosphate (Pot Phosphate Monobasic W/ Sod Tab) 2 tab PO QID [facility] Stop: 08/27/23 12:59 Last Admin: 08/02/23 20:15 Dose: 2 tab Rivaroxaban (Rivaroxaban 15 Mg Tab) 15 mg PO QDD [facility] Stop: 08/31/23 19:14 Last Admin: 08/02/23 17:22 Dose: 15 mg Sucralfate (Sucralfate 1 Gm/10 Ml Udc) 1 gm PO QID [facility] Stop: 08/25/23 12:59 Last Admin: 08/02/23 20:16 Dose: 1 gm Triamcinolone Acetonide (Triamcinolone Acet 0.1% Oint 15 Gm Tube) 1 appln EXT BID PRN; Protocol PRN Reason: AFFECTED AREA Stop: 08/24/23 16:42 Umeclidinium/Vilanterol (Umeclidinium/Vilanterol 62.5/25mcg 7 Puffs/Inhaler) 1 puffs INH QAM [facility] Stop: 08/25/23 08:59 Last Admin: 08/02/23 08:52 Dose: 1 puffs Verapamil HCl (Verapamil Hcl 120 Mg Tabcr) 120 mg PO QAM [facility] Stop: 08/31/23 08:59 Last Admin: 08/02/23 08:51 Dose: 120 mg (1) Anemia Anemia type: unspecified type Qualified Code(s): D64.9 - Anemia, unspecified (3) GI (gastrointestinal bleed) GI bleed type/associated pathology: unspecified gastrointestinal hemorrhage type Qualified Code(s): K92.2 - Gastrointestinal hemorrhage, unspecified
[2023-08-03] MEDS: PANTOprazole 40 MG TAB PO SCH (09:30)
[2023-08-03] MEDS: UMECLIDINIUM/VILANTEROL 62.5/25MCG 7 PUFFS/INHALER INH SCH (09:30)
[2023-08-03] MEDS: OXYBUTYNIN CHLORIDE XL 5 MG TABCR PO SCH (09:30)
[2023-08-03] MEDS: SUCRALFATE 1 GM/10 ML UDC PO SCH ×4 (09:30→20:09)
[2023-08-03] MEDS: POT PHOSPHATE MONOBASIC W/ SOD TAB PO SCH ×4 (09:30→20:08)
[2023-08-03] MEDS: VERAPAMIL HCL 120 MG TABCR PO SCH (09:30)
[2023-08-03] MEDS: ESCITALOPRAM OXALATE 10 MG TAB PO SCH (09:31)
[2023-08-03] MEDS: CEROVITE ADV FORMULA TAB PO SCH (09:31)
[2023-08-03] MEDS: NITROFURANTOIN MONOHYDRATE 100 MG CAP PO SCH ×2 (09:31→20:09)
[2023-08-03] MEDS: lisinopril 10 MG TAB PO SCH (09:35)
[2023-08-03] MEDS: RIVAROXABAN 15 MG TAB PO SCH (16:46)
[2023-08-03] MEDS: guaiFENesin 600 MG TABCR PO SCH (20:08)
[2023-08-04 06:27] LABS: Hemoglobin 8.5 g/dl (12.0-16.0); Mean Corpuscular Hemoglobin 27.6 pg (25.0-34.0); Mean Corpuscular Hgb Conc 30.4 g/dL (32.0-36.0); Mean Corpuscular Volume 90.9 fL (80.0-100.0); Mean Platelet Volume 9.5 fL (9.4-12.4); Platelet Count 270 K/uL (130-400); RDW Coefficient of Variation 17.6 % (11.5-14.5); RDW Standard Deviation 58.3 fL (36.4-46.3); Red Blood Count 3.08 M/uL (4.20-5.40); White Blood Count 7.29 K/ul (4.8-10.8)
[2023-08-04 06:42] LABS: BUN Creatinine Ratio 15.8 (10-20); Calcium 8.8 mg/dl (8.6-10.3); Creatinine Clr Calc Pharmacy 33.7 ml/min; Est GFR (African American) 49.1 ml/min; Est GFR (Non-African American) 42.4 ml/min; Magnesium 1.7 mg/dl (1.7-2.4); Phosphorus 3.7 mg/dl (2.5-4.9); Potassium 3.4 mmol/L (3.5-5.1)
[2023-08-04] MEDS: BUDESONIDE 0.25 MG/2 ML VIAL (PULMICORT) INH SCH ×2 (07:03→19:38)
[2023-08-04] MEDS: UMECLIDINIUM/VILANTEROL 62.5/25MCG 7 PUFFS/INHALER INH SCH (09:29)
[2023-08-04] MEDS: NITROFURANTOIN MONOHYDRATE 100 MG CAP PO SCH ×2 (09:30→20:01)
[2023-08-04] MEDS: POT PHOSPHATE MONOBASIC W/ SOD TAB PO SCH ×4 (09:30→20:01)
[2023-08-04] MEDS: guaiFENesin 600 MG TABCR PO SCH ×2 (09:30→20:01)
[2023-08-04] MEDS: SUCRALFATE 1 GM/10 ML UDC PO SCH ×4 (09:30→20:01)
[2023-08-04] MEDS: CEROVITE ADV FORMULA TAB PO SCH (09:31)
[2023-08-04] MEDS: PANTOprazole 40 MG TAB PO SCH (09:31)
[2023-08-04] MEDS: VERAPAMIL HCL 120 MG TABCR PO SCH (09:31)
[2023-08-04] MEDS: OXYBUTYNIN CHLORIDE XL 5 MG TABCR PO SCH (09:31)
[2023-08-04] MEDS: lisinopril 10 MG TAB PO SCH (09:31)
[2023-08-04] MEDS: ESCITALOPRAM OXALATE 10 MG TAB PO SCH (09:31)
[2023-08-04] MEDS ORDERED: POTASSIUM CHLORIDE CRTAB 20 MEQ TABCR PO STA (12:21)
--- NOTE | 2023-08-04 15:30 | Cardiology Progress Note ---
Date of Service August 04, 2023 Assessment & Plan (1) Atrioventricular (AV) dissociation: (2) PAF (paroxysmal atrial fibrillation): (3) GI (gastrointestinal bleed): (4) CKD (chronic kidney disease), stage III: Plan Impression: Medically complex, acutely ill 83-year-old female admitted for acute GI bleed. Carries a history of paroxysmal atrial fibrillation normally maintained in sinus rhythm with flecainide and verapamil. Intermittent third-degree AV block noted on telemetry starting at approximately 1120 on 07/27/2023. Rhythm improved with holding of flecainide and verapamil. Telemetry findings 08/01/23: SB in the 50s at rest. No AV Block. 8 beat run of NSVT at 18:42 on 07/31/23 5 beat run of NSVT at 8:49 am on 07/31/2023 Telemetry findings 08/02/2023: Sinus rhythm and sinus bradycardia in the 50s to 60s, several very short episodes of accelerated junctional rhythm at 50 bpm. No prolonged bradycardia. Occasional blocked PACs. Telemetry findings 08/04/2020: Sinus rhythm in 60s, first-degree AV block. Plan: Tolerating verapamil, prior to hospital dose of 240 mg daily reduced to 120 mg daily. Prior to hospital treatment with flecainide discontinued. Hemoglobin stable having resumed Xarelto. With regards to hypertension, lisinopril started at dose of 2.5 mg daily and titrate to 10 mg daily. Blood pressure still above goal at times, but trending toward improvement. Agree with plan to resume patient's prior to hospital nebulizer treatments regards to optimizing her COPD. Would avoid further escalation of AV lynnette blockers. If additional blood pressure control necessary, would first titrate SUE inhibitor, HCTZ may be a secondary option. Would not increase verapamil dose due to history of bradycardia. Cardiology to sign off. Dr Ivan ball 08/05. Call with questions or concerns. This chart was completed in part utilizing Speech Voice Recognition Software. Grammatical errors, random word insertions, pronoun errors, and incomplete sentences are an occasional consequence of this system due to software l imitations, ambient noise, and hardware issues. Any formal questions or concerns about the content, text, or information contained within the body of this dictation should be directly addressed to the provider for clarification. Admission and Anticipated Discharge Date Admission Date: July 25, 2023 Subjective Patient seen in cardiology follow-up. She is comfortable in the bedside chair. Blood pressure still slightly above goal. Telemetry reveals sinus rhythm in 60s with first-degree AV block. Physical Exam Constitutional: + ill appearing; no acute distress Respiratory: normal respiratory effort and able to speak in complete sentences; no cough and not tachypneic Auscultation: + diminished lung sounds and + rhonchi; no wheezes (mid and apical wheezing noted ) Cardiovascular: Rate/Rhythm: regular rate and regular rhythm Heart Sounds: normal S1 and normal S2; no murmur (No murmur appreciated on exam) Vessels: no JVD Extremities: no edema Skin: no rashes, warm and dry Psychiatric: Orientation: alert and oriented x 3 Results & Data Vital Signs (Past 12 Hours) Vital Signs Temp Pulse Resp BP BP Pulse Ox O2 Del Method 08/04/23 13:50 93 Nasal Cannula 08/04/23 12:00 37.0 C 70 18 173/52 H 95 Nasal Cannula 08/04/23 08:00 Nasal Cannula 08/04/23 07:54 36.5 C 69 18 175/67 H 93 Nasal Cannula 08/04/23 07:04 68 16 91 Nasal Cannula 08/04/23 04:20 36.6 C 69 18 157/60 H 91 Nasal Cannula O2 Flow Rate 08/04/23 13:50 3 08/04/23 12:00 5 08/04/23 08:00 4 08/04/23 07:54 5 08/04/23 07:04 5 08/04/23 04:20 5.0 Laboratory Results CBC 08/04/23 Range/Units 05:59 WBC 7.29 (4.8-10.8) K/ul RBC 3.08 L (4.20-5.40) M/uL Hgb 8.5 L (12.0-16.0) g/dl Hct 28.0 L (37.0-47.0) % Plt Count 270 (130-400) K/uL Comprehensive Metabolic Panel 08/04/23 Range/Units 05:59 Sodium 143 (136-145) mmol/L Potassium 3.4 L (3.5-5.1) mmol/L Chloride 106 (98-107) mmol/L Carbon Dioxide 30 (21-32) mmol/L BUN 19 (6-23) mg/dl Creatinine 1.20 (0.6-1.2) mg/dl Glucose 110 H (70-99(Fasting)) mg/dl Calcium 8.8 (8.6-10.3) mg/dl (3) GI (gastrointestinal bleed) GI bleed type/associated pathology: unspecified gastrointestinal hemorrhage type Qualified Code(s): K92.2 - Gastrointestinal hemorrhage, unspecified
[2023-08-04] MEDS: RIVAROXABAN 15 MG TAB PO SCH (17:14)
--- NOTE | 2023-08-04 19:43 | Hospitalist Progress Note ---
Date of Service August 04, 2023 Assessment & Plan (1) Anemia: (2) Weakness: (3) GI (gastrointestinal bleed): (4) PAF (paroxysmal atrial fibrillation): (5) Chronic respiratory failure with hypoxia: (6) COPD (chronic obstructive pulmonary disease): (7) FRANCIS (obstructive sleep apnea): (8) CKD (chronic kidney disease), stage III: (9) HTN (hypertension): (10) Tobacco dependence due to cigarettes: (11) Diverticulitis: (12) Colostomy in place: (13) UTI (urinary tract infection): Plan Pt is a 83yoF with PMHx significant for IBD noted on pathology in 2021, history of diverticulitis and resection of large bowel with colostomy, chronic hypoxemic respiratory failure, COPD, FRANCIS on 3L NC, paroxysmal atrial fibrillation on Xarelto, hypertension, CKD 3, depression who presented with melena and generalized weakness over the past 2 months in the setting of a GI Bleed. Acute blood loss anemia Iron Deficiency Anemia GI Bleed Generalized weakness- likely in setting of above Progressive weakness, lightheadedness and darkened ostomy output over the past 2 months Colonoscopy in 2021 with evidence of inflammatory changes, pathology noting chronic active colitis most consistent with IBD. Hgb 6.9 on admission (baseline hgb ~14), was transfused 1U pRBC with hgb of 7.7 Iron level of 13, supplemented with IV Venofer Vit b12 and folate level wnl s/p EGD on 07/26 with GI, appreciate recs -noted gastric ulcers (likely cause of melena), nonobstructing Schatzki ring, small hiatal hernia -biopsy/pathology of gastric ulcer noting only inflamed mucosa -NO NSAIDS, likely cause of gastric ulcers per GI -pantoprazole 40mg daily x 3 months -sucralfate 1gm QID x 10 days -hold anticoagulation (home Xarelto) for 1 week -repeat EGD in 3 months s/p colonoscopy on 07/31, noted: "-an unremarkable left ostomy. -extensive diverticula throughout the descending colon - 6 mm polyp in the descending colon -extensive pseudopolyposis throughout the transverse and ascending colon. -No evidence of active colitis. -Random biopsies done -ascending colon end to end functional side to side anastamosis. The anastamosis was unremarkable. -ileum was unremarkable." Monitor H/H with AM labs PT/OT orders placed 07/28-hgb trending down. closely monitor, will likely need another transfusion. 07/29-hgb with continued downtrend, this AM 7.0. Discussion with pt about transfusion given her persistent dizziness and SOB. Pt agreeable. Will transfuse 1U, repeat H/H afterwards. GI re-consulted for further recs, appreciated. 07/30-Pt to have colonoscopy on 07/31, NPO after midnight. Golytely prep at 6pm today. Continue clear liquid diet 07/31- colonoscopy completed in the AM, no evidence of bleeding. Hgb up to 8.8 today, highest it has been this admission. Continuing to hold home xarelto today, scheduled to resume on 08/01 per previous recs from GI. Appreciate GI recs. 08/01- Xarelto and verapamil resumed (verapamil at a lower dose). Continue to monitor effects. Second degree/third degree Heart block On 07/27, pt with episode of dizziness and SOB, and increasing episodes of bradycardia. EKG obtained at that time concerning for second degree heart block, pt with also noted episodes of 3rd degree heart block on telemetry Stat trop slightly elevated at 15.1 Urgent echo ordered and pending. Labs at that time showed stable H/H with hgb at 7.8, normal mag and phos but elevated Cr from 1.52 earlier in the day to approximately 1.9. VBG with no pressing concern Chest xray with no acute concerns, noted known emphysema. Cardiology was consulted- appreciate recs -Holding home Flecainide and Verapamil -Pacer pads in place on pt -Attending Skin Care Therapist had discussion with pt about code status-she agreed to be a full code until issue resolves with med changes/possible pacemaker placement. Will resume DNR/DNI status afterwards. 07/28- no further episodes with meds held, appreciate further cardiology recs. 07/29-no further episodes of second/third degree heart block. Verapamil and Flecainide still on hold, appreciate cardiology recs 07/30-stable, no indication for pacemaker placement at this time 07/31- stable, appreciate cardiology recs 08/01-stable, pt with nonsustained run of v tach overnight. Appreciate cardiology recs. PAF (paroxysmal atrial fibrillation) Pt previously in sinus rhythm on admission Treated outpt with flecainide and verapamil, currently on hold on 07/27 as noted above in setting of concerning second/third degree heart block Anticoagulated with xarelto, holding for 1 week per GI recs above- would be scheduled to resume on 08/01 Continue to monitor on telemetry Complicated UTI UA on admission suggestive of infection Urine Cx currently grew Enterococcus faecalis Started on Aztreonam (pt with many antibiotic allergies) and narrowed to macrobid Continue to monitor symptoms Hyperkalemia Potassium of 5.2 on admission Has since downtrended to normal limits Continue to monitor Hypophosphatemia repleted as needed Chronic respiratory failure with hypoxia COPD (chronic obstructive pulmonary disease) FRANCIS (obstructive sleep apnea) Pt states that she uses 3L at baseline, both with rest and ambulation No longer uses CPAP at night, does not want a new machine Continue home Budesonide, Anoro inh, Duonebs PRN Home Atrovent on hold as Duonebs ordered contains ipratropium Follows w/ [facility] pulmonology - cont. to follow as outpt Acute on chronic kidney Disease Cr 1.51 (Baseline Cr mid 1s) Was acutely elevated to 1.9 on 07/27 Lisinopril was held and pt received IVF Cr was downtrending afterwards Lisinopril has since been resumed by cardiology- increased to 10 mg daily HTN (hypertension) BP was elevated on admission Continue lisinopril at this time Home Verapamil was restarted on 08/01 at lower dose by cardiology Continue to monitor BP Tobacco dependence due to cigarettes Still smoking 3-4 cigarettes daily Encourage cessation IBD Diverticulitis Colostomy in place H/o colon resection in [address] [facility] in [place] Has colostomy bag in place Mood Continue home lexapro Urinary Urgency Continue oxybutynin Diet: HH DVT Ppx: Xarelto resumed on 08/01 Code status: FULL Dispo: Pt wants Home with nursing services, CM involved Admission and Anticipated Discharge Date Admission Date: July 25, 2023 Subjective Pt seen in follow up of anemia, GI bleed, hx of afib on xarelto, xarelto resumed Currently sitting up in chair in NAD, overall feeling well but short of breath with exertion which she says is chronic. No blood in stool. No fever chills, chest pain. No abd. pain. Review of Systems Review of Systems: All systems reviewed & are unremarkable except as noted in Subjective Physical Exam Physical Exam: General: WD/WN F in NAD sitting in chair HEENT: NC/AT, NC placed, suppl. O2 Chest: Nontender to palpation. CV: Regular Resp: + mild rhonchi b/l, no increased effort of breathing at that time. Abdomen: Soft, colostomy bag in place, brown stool output noted Extremities: mild edema in lower extremities Psych: Appropriate mood and affect Neuro: awake, and alert, answers appropriately, no facial asymmetry, moves extremities Results & Data Results & Data Vital Signs (Past 12 Hours) Vital Signs Temp Pulse Resp BP Pulse Ox O2 Del Method O2 Flow Rate 08/04/23 19:40 73 18 91 Nasal Cannula 3 08/04/23 19:00 36.6 C 70 24 163/70 H 89 L Nasal Cannula 08/04/23 15:43 36.6 C 63 18 153/54 H 90 Nasal Cannula 3 08/04/23 13:50 93 Nasal Cannula 3 08/04/23 12:00 37.0 C 70 18 173/52 H 95 Nasal Cannula 5 08/04/23 08:00 Nasal Cannula 4 08/04/23 07:54 36.5 C 69 18 175/67 H 93 Nasal Cannula 5 Laboratory Results 08/04/23 Range/Units 05:59 WBC 7.29 (4.8-10.8) K/ul RBC 3.08 L (4.20-5.40) M/uL Hgb 8.5 L (12.0-16.0) g/dl Hct 28.0 L (37.0-47.0) % MCV 90.9 (80.0-100.0) fL MCH 27.6 (25.0-34.0) pg MCHC 30.4 L (32.0-36.0) g/dL RDW Std Deviation 58.3 H (36.4-46.3) fL RDW Coeff of Lynn 17.6 H (11.5-14.5) % Plt Count 270 (130-400) K/uL MPV 9.5 (9.4-12.4) fL Sodium 143 (136-145) mmol/L Potassium 3.4 L (3.5-5.1) mmol/L Chloride 106 (98-107) mmol/L Carbon Dioxide 30 (21-32) mmol/L Anion Gap 7 (3-11) BUN 19 (6-23) mg/dl Creatinine 1.20 (0.6-1.2) mg/dl Est Cr Clr Drug Dosing 33.7 ml/min Est GFR ( Amer) 49.1 ml/min Est GFR (Non-Af Amer) 42.4 ml/min BUN/Creatinine Ratio 15.8 (10-20) Glucose 110 H (70-99(Fasting)) mg/dl Calcium 8.8 (8.6-10.3) mg/dl Phosphorus 3.7 (2.5-4.9) mg/dl Magnesium 1.7 (1.7-2.4) mg/dl Medications Administered Current Inpatient Medications Acetaminophen (Acetaminophen 325 Mg Tab) 325 mg PO Q6H PRN PRN Reason: Pain Stop: 08/24/23 16:18 Albuterol (Albuterol Hfa 8 Gm Inhaler) 1 puffs INH QID PRN PRN Reason: Shortness Of Breath Stop: 08/24/23 16:18 Albuterol (Albut/Ipratrop 3mg/0.5mg Neb 3 Ml Vial) 3 ml INH Q4H PRN; Protocol PRN Reason: Wheezing Stop: 08/24/23 16:18 Last Admin: 08/01/23 07:22 Dose: 3 ml Artificial Tears (Artificial Tears) 1 drops OP QID PRN PRN Reason: DRY EYES Stop: 08/25/23 14:25 Budesonide (Budesonide 0.25 Mg/2 Ml Vial (Pulmicort)) 0.25 mg INH BIDR [facility] Stop: 08/24/23 18:59 Last Admin: 08/04/23 19:38 Dose: 0.25 mg Escitalopram Oxalate (Escitalopram Oxalate 10 Mg Tab) 10 mg PO QAM [facility] Stop: 08/25/23 08:59 Last Admin: 08/04/23 09:31 Dose: 10 mg Guaifenesin (Guaifenesin 600 Mg Tabcr) 600 mg PO Q12 [facility] Stop: 09/02/23 20:59 Last Admin: 08/04/23 09:30 Dose: 600 mg Lisinopril (Lisinopril 10 Mg Tab) 10 mg PO QAM [facility] Stop: 09/02/23 08:59 Last Admin: 08/04/23 09:31 Dose: 10 mg Multivitamins/Minerals (Cerovite Adv Formula Tab) 1 tab PO QAM [facility] Stop: 08/25/23 08:59 Last Admin: 08/04/23 09:31 Dose: 1 tab Nitrofurantoin Macrocrystals (Nitrofurantoin Monohydrate 100 Mg Cap) 100 mg PO BID [facility] Stop: 08/10/23 14:24 Last Admin: 08/04/23 09:30 Dose: 100 mg Ondansetron HCl (Ondansetron Inj 2 Mg/Ml 2 Ml Vial) 4 mg IV Q6H PRN PRN Reason: Nausea Stop: 08/24/23 17:44 Oxybutynin Chloride (Oxybutynin Chloride Xl 5 Mg Tabcr) 5 mg PO [facility]; Protocol Stop: 08/25/23 08:59 Last Admin: 08/04/23 09:31 Dose: 5 mg Pantoprazole Sodium (Pantoprazole 40 Mg Tab) 40 mg PO [facility] Stop: 08/25/23 11:44 Last Admin: 08/04/23 09:31 Dose: 40 mg Potassium Phosphate (Pot Phosphate Monobasic W/ Sod Tab) 2 tab PO QID [facility] Stop: 08/27/23 12:59 Last Admin: 08/04/23 17:14 Dose: 2 tab Rivaroxaban (Rivaroxaban 15 Mg Tab) 15 mg PO QDD [facility] Stop: 08/31/23 19:14 Last Admin: 08/04/23 17:14 Dose: 15 mg Sucralfate (Sucralfate 1 Gm/10 Ml Udc) 1 gm PO QID [facility] Stop: 08/25/23 12:59 Last Admin: 08/04/23 17:14 Dose: 1 gm Triamcinolone Acetonide (Triamcinolone Acet 0.1% Oint 15 Gm Tube) 1 appln EXT BID PRN; Protocol PRN Reason: AFFECTED AREA Stop: 08/24/23 16:42 Umeclidinium/Vilanterol (Umeclidinium/Vilanterol 62.5/25mcg 7 Puffs/Inhaler) 1 puffs INH [facility] Stop: 08/25/23 08:59 Last Admin: 08/04/23 09:29 Dose: 1 puffs Verapamil HCl (Verapamil Hcl 120 Mg Tabcr) 120 mg PO [facility] Stop: 08/31/23 08:59 Last Admin: 08/04/23 09:31 Dose: 120 mg (1) Anemia Anemia type: unspecified type Qualified Code(s): D64.9 - Anemia, unspecified (3) GI (gastrointestinal bleed) GI bleed type/associated pathology: unspecified gastrointestinal hemorrhage type Qualified Code(s): K92.2 - Gastrointestinal hemorrhage, unspecified
[2023-08-05 07:01] LABS: BUN Creatinine Ratio 15.6 (10-20); Calcium 8.7 mg/dl (8.6-10.3); Creatinine Clr Calc Pharmacy 33.2 ml/min; Est GFR (African American) 48.1 ml/min; Est GFR (Non-African American) 41.5 ml/min; Magnesium 1.8 mg/dl (1.7-2.4); Phosphorus 4.3 mg/dl (2.5-4.9)
[2023-08-05] MEDS: BUDESONIDE 0.25 MG/2 ML VIAL (PULMICORT) INH SCH (07:02)
[2023-08-05] MEDS: lisinopril 10 MG TAB PO SCH (08:15)
[2023-08-05] MEDS: UMECLIDINIUM/VILANTEROL 62.5/25MCG 7 PUFFS/INHALER INH SCH (08:15)
[2023-08-05] MEDS: NITROFURANTOIN MONOHYDRATE 100 MG CAP PO SCH (08:15)
[2023-08-05] MEDS: guaiFENesin 600 MG TABCR PO SCH (08:15)
[2023-08-05] MEDS: SUCRALFATE 1 GM/10 ML UDC PO SCH ×2 (08:15→14:04)
[2023-08-05] MEDS: POT PHOSPHATE MONOBASIC W/ SOD TAB PO SCH ×2 (08:16→14:04)
[2023-08-05] MEDS: VERAPAMIL HCL 120 MG TABCR PO SCH (08:16)
[2023-08-05] MEDS: ESCITALOPRAM OXALATE 10 MG TAB PO SCH (08:16)
[2023-08-05] MEDS: PANTOprazole 40 MG TAB PO SCH (08:16)
[2023-08-05] MEDS: CEROVITE ADV FORMULA TAB PO SCH (08:16)
[2023-08-05] MEDS: OXYBUTYNIN CHLORIDE XL 5 MG TABCR PO SCH (08:16)
--- NOTE | 2023-08-05 10:35 | Discharge Summary ---
Date of Service August 05, 2023 Admission HPI Per Admitting Provider CC: Anemia, weakness Primary Care Provider: Tameka Mao MD This is an 83-year-old female with PMH of history of suspected IBD, history of diverticulitis and resection of large bowel with colostomy, chronic hypoxemic respiratory failure, COPD, FRANCIS on 3L NC, paroxysmal atrial fibrillation on Xarelto, hypertension CKD 3, depression and other medical problems listed below who presents with generalized weakness over the past 2 months. Patient had noted generalized weakness and lightheadedness over the past 2 months with progressively gotten worse. Over the weekend, felt like she was going to fall anytime she ambulated and therefore decided to present to ED this morning for further evaluation. Has also noted darker output in her ostomy bag over the past 2 months. Does follow with Dr. Kim for history of suspected IBD. Colonoscopy from 2021 showed inflammatory changes consistent with UC versus ischemic colitis? Missed her scheduled colonoscopy that was just rescheduled for October 31. Denies any abdominal pain, nausea, vomiting or change to appetite. No fever, chills, headache, chest pain, shortness of breath, dysuria. Denies any falls at home but lives alone and has been feeling very unsteady. Did not take any of her home medications this morning. Still smokes 3-4 cigarettes daily. Admission Exam Per Admitting Provider General Appearance: WD/WN, vitals as above, NAD, sitting up in bed, pleasant, conversing easily Head: normocephalic, atraumatic Eyes: normal inspection, PERRL, conjunctivae normal, anicteric sclerae ENT: external ear and nose normal, oropharynx normal Neck: normal visual inspection, trachea midline, no thyromegaly Respiratory: normal respiratory effort, diffuse rhonchi . No accessory muscle use Cardiovascular: regular rate, rhythm, no murmur, normal peripheral pulses, no BLE edema. Vessels: no JVD Chest: normal inspection of chest Abdomen/GI: normal bowel sounds, soft, nontender, no hepatosplenomegaly, + ostomy bag with dark brown output Extremities/Musculoskeletal: no cyanosis or clubbing, extremities motor stre ngth 5/5 Neurologic: PERRL, EOMI, accommodation nl, no face palsy, no dysarthria, CN's II-XI intact bilaterally and moves all extremities Psychiatric: A+Ox3, euthymic affect Skin: no rashes, normal color, warm/dry Principal Diagnosis GI bleed, anemia AV block, pAfib Discharge Exam General: WD/WN F in NAD sitting in chair HEENT: NC/AT, NC placed, suppl. O2 Chest: Nontender to palpation. CV: Regular Resp: + mild rhonchi b/l, no increased effort of breathing at that time. Abdomen: Soft, colostomy bag in place, brown stool output noted Extremities: mild edema in lower extremities Psych: Appropriate mood and affect Neuro: awake, and alert, answers appropriately, no facial asymmetry, moves extremities Discharge Data Allergies Allergy/AdvReac Type Severity Reaction Status Date / Time amoxicillin Allergy Intermediate Rash Verified 07/31/23 08:27 cephalexin [From Keflex] Allergy Intermediate Rash Verified 07/31/23 08:27 cilostazol [From Pletal] Allergy Intermediate Rash Verified 07/31/23 08:27 ciprofloxacin [From Cipro] Allergy Intermediate Rash Verified 07/31/23 08:27 diltiazem Allergy Intermediate Rash Verified 07/31/23 08:27 felodipine Allergy Intermediate Rash Verified 07/31/23 08:27 meloxicam Allergy Intermediate Rash Verified 07/31/23 08:27 sulfamethoxazole Allergy Intermediate Rash Verified 07/31/23 08:27 [From Bactrim] trimethoprim [From Bactrim] Allergy Intermediate Rash Verified 07/31/23 08:27 Consultations 07/25/23 15:28 ED Decision to Admit Stat 07/25/23 16:18 Consult Gastroenterology Routine 07/27/23 14:31 Consult Cardiology Routine 07/29/23 08:24 Consult Gastroenterology Routine Procedures Performed Operation Date: 07/31/23 16:30 Actual Procedures p Colonoscopy Polypectomy - Joshua Orantes MD Ordered Studies 07/27/23 17:48 CT head/brain wo con Urgent FINDINGS: The study is suboptimal secondary to motion artifact. Brain: Moderate nonspecific white matter changes. No edema. Small left choroid fissure cyst. Ventricles: Unremarkable. No ventriculomegaly. Bones/joints: Unremarkable. No acute fracture. Soft tissues: Bilateral lens replacements. Sinuses: Unremarkable as visualized. No acute sinusitis. Mastoid air cells: Unremarkable as visualized. No mastoid effusion. IMPRESSION: No evidence of acute intracranial pathology. Hospital Course (1) Anemia: (2) Weakness: (3) GI (gastrointestinal bleed): (4) PAF (paroxysmal atrial fibrillation): (5) Chronic respiratory failure with hypoxia: (6) COPD (chronic obstructive pulmonary disease): (7) FRANCIS (obstructive sleep apnea): (8) CKD (chronic kidney disease), stage III: (9) HTN (hypertension): (10) Tobacco dependence due to cigarettes: (11) Diverticulitis: (12) Colostomy in place: (13) UTI (urinary tract infection): Plan Pt is a 83yoF with PMHx significant for IBD noted on pathology in 2021, history of diverticulitis and resection of large bowel with colostomy, chronic hypoxemic respiratory failure, COPD, FRANCIS on 3L NC, paroxysmal atrial fibrillation on Xarelto, hypertension, CKD 3, depression who presented with melena and generalized weakness over the past 2 months in the setting of a GI Bleed. Acute blood loss anemia Iron Deficiency Anemia GI Bleed Generalized weakness- likely in setting of above Progressive weakness, lightheadedness and darkened ostomy output over the past 2 months Colonoscopy in 2021 with evidence of inflammatory changes, pathology noting chronic active colitis most consistent with IBD. Hgb 6.9 on admission (baseline hgb ~14), was transfused 1U pRBC with hgb of 7.7 Iron level of 13, supplemented with IV Venofer Vit b12 and folate level wnl s/p EGD on 07/26 with GI, appreciate recs -noted gastric ulcers (likely cause of melena), nonobstructing Schatzki ring, small hiatal hernia -biopsy/pathology of gastric ulcer noting only inflamed mucosa -NO NSAIDS, likely cause of gastric ulcers per GI -pantoprazole 40mg daily x 3 months -sucralfate 1gm QID x 10 days -hold anticoagulation (home Xarelto) for 1 week -repeat EGD in 3 months s/p colonoscopy on 07/31, noted: "-an unremarkable left ostomy. -extensive diverticula throughout the descending colon - 6 mm polyp in the descending colon -extensive pseudopolyposis throughout the transverse and ascending colon. -No evidence of active colitis. -Random biopsies done -ascending colon end to end functional side to side anastamosis. The anastamosis was unremarkable. -ileum was unremarkable." - s/p polypectomy - pathology c/w tubular adenoma - follow up w/ PCP and GI Monitor H/H with AM labs PT/OT orders placed 07/28-hgb trending down. closely monitor, will likely need another transfusion. 07/29-hgb with continued downtrend, this AM 7.0. Discussion with pt about transfusion given her persistent dizziness and SOB. Pt agreeable. Will transfuse 1U, repeat H/H afterwards. GI re-consulted for further recs, appreciated. 07/30-Pt to have colonoscopy on 07/31, NPO after midnight. Golytely prep at 6pm today. Continue clear liquid diet 07/31- colonoscopy completed in the AM, no evidence of bleeding. Hgb up to 8.8 today, highest it has been this admission. Continuing to hold home xarelto today, scheduled to resume on 08/01 per previous recs from GI. Appreciate GI recs. 08/01- Xarelto and verapamil resumed (verapamil at a lower dose). 2/3 Hgb stable no signs of GI bleed Second degree/third degree Heart block On 07/27, pt with episode of dizziness and SOB, and increasing episodes of bradycardia. EKG obtained at that time concerning for second degree heart block, pt with also noted episodes of 3rd degree heart block on telemetry Stat trop slightly elevated at 15.1 Urgent echo ordered and pending. Labs at that time showed stable H/H with hgb at 7.8, normal mag and phos but elevated Cr from 1.52 earlier in the day to approximately 1.9. VBG with no pressing concern Chest xray with no acute concerns, noted known emphysema. Cardiology was consulted- appreciate recs -Holding home Flecainide and Verapamil -Pacer pads in place on pt -Attending Logging Assistant had discussion with pt about code status-she agreed to be a full code until issue resolves with med changes/possible pacemaker placement. Will resume DNR/DNI status afterwards. 07/28- no further episodes with meds held, appreciate further cardiology recs. 07/29-no further episodes of second/third degree heart block. Verapamil and Flecainide still on hold, appreciate cardiology recs 07/30-stable, no indication for pacemaker placement at this time 08/01-stable, pt with nonsustained run of v tach overnight. Appreciate cardiology recs. 08/04 - Per cardiology - Tolerating verapamil, prior to hospital dose of 240 mg daily reduced to 120 mg daily. Prior to hospital treatment with flecainide discontinued. PAF (paroxysmal atrial fibrillation) Pt previously in sinus rhythm on admission Treated outpt with flecainide and verapamil, currently on hold on 07/27 as noted above in setting of concerning second/third degree heart block Anticoagulated with xarelto, now resumed Tolerating verapamil, prior to hospital dose of 240 mg daily reduced to 120 mg daily. Prior to hospital treatment with flecainide discontinued. Complicated UTI UA on admission suggestive of infection Urine Cx currently grew Enterococcus faecalis Started on Aztreonam (pt with many antibiotic allergies) and narrowed to macrobid Hyperkalemia Potassium of 5.2 on admission Has since downtrended to normal limits Continue to monitor Hypophosphatemia repleted as needed Chronic respiratory failure with hypoxia COPD (chronic obstructive pulmonary disease) FRANCIS (obstructive sleep apnea) Pt states that she uses 3L at baseline, both with rest and ambulation No longer uses CPAP at night, does not want a new machine Continue home Budesonide, Anoro inh, Duonebs PRN Home Atrovent on hold as Duonebs ordered contains ipratropium Follows w/ [facility] pulmonology - cont. to follow as outpt Acute on chronic kidney Disease Cr 1.51 (Baseline Cr mid 1s) Was acutely elevated to 1.9 on 07/27 Lisinopril was held and pt received IVF Cr was downtrending afterwards Lisinopril has since been resumed by cardiology- increased to 10 mg daily HTN (hypertension) BP was elevated on admission lisinopril increased to 10 mg daily. Home Verapamil was restarted on 08/01 at lower dose by cardiology Continue to monitor BP Per cardiology - Would avoid further escalation of AV lynnette blockers. If additional blood pressure control necessary, would first titrate SUE inhibitor, HCTZ may be a secondary option. Would not increase verapamil dose due to history of bradycardia. Tobacco dependence due to cigarettes Still smoking 3-4 cigarettes daily Encourage cessation IBD Diverticulitis Colostomy in place H/o colon resection in 2019 at [facility] [place] Has colostomy bag in place Mood Continue home lexapro Urinary Urgency Continue oxybutynin Total Time Total Time Spent Total Time Spent (In Minutes): 40 Discharge Plan Discharge Items Patient Disposition: Home - Home Health Services Reason For Visit: GI BLEED, ANEMIA Discharge Diagnosis: GI bleed, anemia AV block, pAfib Activity: Per Instructions section Non-emergency contact: Primary Care Provider, Logging Assistant and [employer] Call non-emergency contact if: you have any medication questions and your symptoms worsen Follow-up/Referrals: Tameka Mao MD [Primary Care Provider] - (Date & Time 08/02/2023 11:00 AM Provider Chanelle Newman PA-C Department Family Medicine [facility] ) Diet: Heart Healthy Addtl Attending Provider Instructions: Follow up with your primary care doctor within 1 week. Stop taking flecainide. Your verapamil dose was decreased to 120 mg daily. Your lisinopril was increased to 10 mg daily. Finish antibiotic treatment with macrobid. Take pantoprazole (for your stomach) 40 mg daily for 3 months and follow up with gastroenterology. Follow up with your milling machine operator gear. Pending Studies at Discharge: No Stand-Alone Forms: [employer], Smoking Cessation Medications and DC Order Prescriptions: New nitrofurantoin monohyd/m-cryst 100 mg Capsule 100 mg PO BID 2 Days Qty: 4 0RF lisinopril 10 mg Tablet 10 mg PO QAM Qty: 30 0RF verapamil [Calan SR] 120 mg Tablet Extended Release 120 mg PO QAM Qty: 30 0RF pantoprazole 40 mg Tablet,Delayed Release (Dr/Ec) 40 mg PO QAM Qty: 30 0RF sucralfate 100 mg/mL Suspension 1 g PO QID 2 Days Qty: 80 0RF Continued Anoro Ellipta 62.5-25 mcg/actuation blister with device 1 inh INH QAM Qty: 60 8RF albuterol sulfate [ProAir HFA] 90 mcg/actuation HFA aerosol inhaler 1 inh INH QID PRN (Reason: Shortness Of Breath) Qty: 8.5 3RF budesonide 0.25 mg/2 mL suspension for nebulization 0.25 mg inhalation BID Qty: 60 8RF (DME) Auto Titrating CPAP Misc See Rx Instructions .MEDSUPPLY Qty: 1 0RF Rx Instructions: Auto PAP with 8-16 cm H20. Lifetime usage. G47.3 (DME) CPAP Supplies Misc See Rx Instructions .MEDSUPPLY Qty: 1 0RF Rx Instructions: CPAP supplies, mask, headgear, filters, tubing, water chamber. G47.33 guaifenesin [Mucinex] 600 mg tablet extended release 12hr 600 mg PO BID Qty: 60 3RF (DME) Portable Oxygen Misc See Rx Instructions .MEDSUPPLY Qty: 1 0RF Rx Instructions: Oxygen 2 liters continuous with portable concentrator. ASHLEY 99 ferrous sulfate 325 mg (65 mg iron) tablet 325 mg PO QAM escitalopram oxalate [Lexapro] 10 mg Tablet 10 mg PO QAM calcium carbonate-vitamin D3 [Calcium 500 + D] 500 mg(1,250mg) -400 unit Tablet 1 tab PO QPM PreserVision AREDS-2 [phone] bc-fiht-iy-mg Capsule 1 tab PO QAM mesalamine 1.2 gram tablet,delayed release (DR/EC) 3.6 g PO QAM cyclosporine [Restasis] 0.05 % dropperette 1 drp OPB BID ascorbic acid (vitamin C) [Vitamin C] 500 mg Tablet 500 mg PO QAM Xarelto 15 mg tablet 15 mg PO QPM acetaminophen [Tylenol] 325 mg Tablet 325 mg PO Q6H PRN (Reason: Pain) triamcinolone acetonide 0.05 % Ointment 1 applic TOPICAL BID PRN (Reason: AFFECTED AREA) solifenacin 5 mg tablet 5 mg PO QAM omega-3 fatty acids 500 mg Capsule 500 mg PO DAILY ipratropium-albuterol 0.5 mg-3 mg(2.5 mg base)/3 mL solution for nebulization 3 ml INHALATION Q4H PRN (Reason: Wheezing) Discontinued verapamil 240 mg Tablet Extended Release 240 mg PO QAM lisinopril 2.5 mg Tablet 2.5 mg PO QAM flecainide 50 mg tablet 50 mg PO BID Discharge Orders: Discharge Order (Routine); Ordered 08/05/23 Ordered By: Gabriel Macedo Admission Data Admit Date/Time: 07/25/23 15:32 Attending Provider: Gabriel Macedo Admit Provider: Yessenia Fam I. Primary Care Provider: Tameka Mao Other Providers: Yessenia Fam I.; Gasper Kim; Kumar Love; [facility]; [facility]; Igor Olivas
== END 2023-08-05 15:10 | disposition home health service (06) | DRG 378 ==
LOC: ED 13:43 → EDINP 15:32 → SUATTDRO 15:32 → 2E 07-26 14:45

== ENCOUNTER 2023-08-05 18:21 | Inpatient (IN) ==
--- OUTSIDE RECORDS SUMMARY | 2023-08-05 18:27 | External Medical Summary | Summary of Care ---
Author Name Unknown Organization [facility] Address [address] [place] [address] Phone [phone] Care Team Providers Care Gang Head Saw Operator Name Role Phone Tameka Hooper MD Primary Care Prov ider Reason for Visit * Reason Onset Date Comments Advice 07/26/2023 Encounter Details Date Type Department Care Team (Late st Contact Info) Description 07/26/2023 Telephone Gastroenterology, [address] [phone] Gasper Kim, DO [address] [place] [address] Advice Allergies Active Allergy Reactions Criticality Noted Date Comments Amoxicillin Rash 02/07/2020 Bactrim Rash 12/15/2011 Ciprofloxacin Rash 12/15/2011 Diltiazem Rash 05/29/2019 Piroxicam Rash 12/15/2011 Cephalexin Rash 12/15/2011 Meloxicam Rash 05/29/2019 Other reaction(s): Other Cilostazol Rash,Unknown 12/15/2011 Sulfamethoxazole High 01/19/2023 Other Reaction(s): Rash Trimethoprim High 01/19/2023 Other Reaction(s): Rash documented as of this encounter (statuses as of 07/27/2023) Medications Medication Sig Dispensed Refills Start Date End Date Status [place]-3 Fatty Acids (FISH OIL) 500 MG Capsule [...] Information Patient not taking.Reported on 10/27/2022 Compressor NebulizerIndication s:COPD, moderate (HCC) Inhale via nebulizer . Use as directed. 1 Each 1 02/14/2022 Active Ipratropium-Albuter ol 0.5-2.5 (3) MG/3ML Inhalation Solution (Duoneb)Indications :COPD, moderate (HCC) INHALE 1 VIAL VIA NEBULIZER EVERY 6 HOURS NEEDED FOR WHEEZING 360 mL 5 12/07/2022 Active Nystatin 815662 UNIT/GM External CreamIndications:Ye ast dermatitis Apply topically [...] Active Triamcinolone Acetonide 0.5 % External Cream (Aristocort)Indicat ions:Dermatitis APPLY TO AFFECTED AREA TWICE A DAY 60 g 5 07/07/2023 Active documented as of this encounter (statuses as of 07/27/2023) Active Problems Problem Noted Date Diagnosed Date [...] as of this encounter (statuses as of 07/27/2023) Resolved Problems Problem Noted Date Diagnosed Date [...] as of this encounter (statuses as of 07/27/2023) Immunizations Name Administration Dates Next Due COVID-19 [...] encounter Miscellaneous Notes * Telephone Encounter - Gabriel Judge OSA - 07/27/2023 4:25 PM EST Colon was already cedric'd for 10/31, called and LM informing pt that we will do EGD on same date. Will send instructions out closer to appt time. Procedures cedric'd at [facility]/ [place]. * Telephone Encounter - Gasper Kim DO - 07/26/2023 11:25 AM EST Patient underwent upper endoscopy for evaluation of melena. She was found to have multiple antral ulcers. I would like to make arrangements for a surveillance upper endoscopy in 3 months. The patientwas also due for colonoscopy, perhaps both exams could be done during the same setting. Plan EGD Colonsocopy documented in this encounter Plan of Treatment Upcoming Encounters Date Type Department Care Team (Late st Contact Info) Description 08/02/2023 11:00 AM EST Office Visit [address] [place] [phone] Chanelle Newman PA-C [address] [place] [address] [place] [id number] 08/08/2023 10:40 AM EST Office Visit [address] [place] [phone] Tameka Hooper, MD [address] [place] [address] [place] [address] 08/14/2023 2:00 PM EST Nurse Only Ancillary [address] [place] [address] [place], Nurse Annual [address] [place] [address] 09/01/2023 12:00 PM EST Office Visit Sleep Disorders Ctr [facility] [address] [place] [phone] Lynn Busby DO [address] [place] [address] 10/23/2023 2:30 PM EDT Office Visit Rheumatology [address] [place] [phone] Jessica Stubbs CRNP [address] [place] [address] [place], [place] [address] 10/31/2023 1:00 PM EDT Cardiac Studies Cardiac Studies, [facility] [address] [place] [address] 11/01/2023 9:30 AM EDT Procedure Only Endoscopy, [facility] [address] [place] [address] Gasper Kim, DO [address] [place] [address] 11/01/2023 10:00 AM EDT Procedure Only Endoscopy, [facility] [address] [place] [address] Gasper Kim, DO [address] [place] [address] 11/14/2023 12:20 PM EDT Office Visit Gastroenterology, [facility] [address] [place] [address] Gasper Kim DO [address] [place] [address] 03/26/2024 1:30 PM EDT Office Visit Nephrology [address] [place] [address] Zemaitis, Ayana Kirkpatrick, KENTRELL [address] [facility] [place] [address] 05/01/2024 3:00 PM EDT Office Visit Dermatology [address] [place] [address] Anya Pratt PA-C [address] [place] [address] [place] [address] Scheduled Orders Name Type Priority Associated Diagnoses Orde r Schedule EGD, FLEXIBLE, W/BIOPSY Procedures Routine Acute gastric ulcer with hemorrhage Ordered: 07/26/2023 COLONOSCOPY Gastro Lower Routine Colitis Ordered: 07/26/2023 Health Maintenance Due Date Last Done Comments DISCUSS TOBACCO CESSATION (REFER TO SMARTSET #[id number]) 1940 COVID-19 Vaccine ( season) 2023 06/01/2021, 10/20/2020, 09/15/2020 Influenza Vaccine (FLU shot) (#1) 2023 Depression Screening 08/11/2023 08/11/2022 Albumin/Creatinine Ratio 08/15/2023 08/15/2022, 01/31 GFR 08/17/2023 02/14/2023, 12/02, 08/12/2022, Additional history exists CKD PHOS USE SMARTSET 10147 12/28/202312/02, 04/26/2022, 11/23/2021, Additional history exists CKD HGB USE SMARTSET 03249 02/29/202402/28, 02/28/2023, 02/14/2023, Additional history exists O2 ASSESSMENT COMPLETED IN PAST YEAR FOR COPD 02/29/2024 02/28/2023 DXA Scan 08/01/2024 08/01/2022, 10/2020, 11/21/2013 COLONOSCOPY-EVERY 5 YRS AGES 18-100 02/23/2027 02/23/2022, 08/01/2019, 08/01/2019 DTaP,Tdap,and Td Vaccines (2 - Td or Tdap) 08/07/2030 08/07/2020 (Not indicated), 09/01/1998 Pneumococcal Vaccine: 65+ Years Completed 05/16/2016, 12/01/2014, 12/01/2013, Additional history exists VITAMIN D LEVEL ONCE IN A LIFETIME-USE SMARTSET# [id number] Completed 12/27/2022, 08/12/2022, 03/15/2022, Additional history exists [...] as of this encounter Visit Diagnoses Diagnosis Acute gastric ulcer with hemorrhage- Primary Acute gastric ulcer with hemorrhage, without mention of obstruction Colitis Other and unspecified noninfectious gastroenteritis and colitis documented in this encounter Care Teams Gang Head Saw Operator Relationship Specialty Start Date End Date Tameka Hooper MD [address] [place] [address] [place] [address] PCP - General Family Medicine 05/29/19 documented as of this encounter
--- OUTSIDE RECORDS SUMMARY | 2023-08-05 18:27 | External Medical Summary | Summary of Care ---
Author Name Unknown Organization [facility] Address [address] [place] [address] Phone [phone] Care Team Providers Care Hospital Mortician Name Role Phone Tameka Hooper MD Primary Care Prov ider Encounter Details Date Type Department Care Team (Late st Contact Info) Description 07/26/2023 Result Scan Unspecified Department Gasper Kim, DO [address] [place], [place] [phone] <No scans attached> Allergies Active Allergy Reactions Criticality Noted Date Comments Amoxicillin Rash 02/07/2020 Bactrim Rash 12/15/2011 Ciprofloxacin Rash 12/15/2011 Diltiazem Rash 05/29/2019 Piroxicam Rash 12/15/2011 Cephalexin Rash 12/15/2011 Meloxicam Rash 05/29/2019 Other reaction(s): Other Cilostazol Rash,Unknown 12/15/2011 Sulfamethoxazole High 01/19/2023 Other Reaction(s): Rash Trimethoprim High 01/19/2023 Other Reaction(s): Rash documented as of this encounter (statuses as of 07/28/2023) Medications Medication Sig Dispensed Refills Start Date End Date Status [place]-3 Fatty Acids (FISH OIL) 500 MG Capsule [...] WHEEZING 360 mL 5 12/07/2022 Active Nystatin 381156 UNIT/GM External CreamIndications:Ye ast dermatitis Apply topically [...] as of this encounter (statuses as of 07/28/2023) Active Problems Problem Noted Date Diagnosed Date [...] as of this encounter (statuses as of 07/28/2023) Resolved Problems Problem Noted Date Diagnosed Date [...] as of this encounter (statuses as of 07/28/2023) Immunizations Name Administration Dates Next Due COVID-19 [...] Description 08/02/2023 11:00 AM EST Office Visit Family Medicine [address] [place] [phone] Chanelle Newman PA-C [address] [place] [address] [place] [address] 08/08/2023 10:40 AM EST Office Visit Family [address] [place] [phone] Tameka Hooper MD [address] [place] [address] [place] [address] 08/14/2023 2:00 PM EST Nurse Only Ancillary [address] [place] [address] [place], Nurse Annual [address] [place] [address] 09/01/2023 12:00 PM EST Office Visit Sleep Disorders Ctr [facility] [address] [place] [phone] Lynn Busby, [address] [place] [address] 10/23/2023 2:30 PM EDT Office Visit Rheumatology [address] [place] [phone] Jessica Stubbs CRNP [address] [place] [address] [place] [address] 10/31/2023 1:00 PM EDT Cardiac Studies Cardiac Studies, [facility] [address] [place], [place] [address] 11/01/2023 9:30 AM EDT Procedure Only Endoscopy, [facility] [address] [place], [place] [address] Gasper Kim, DO [address] [place] [address] 11/01/2023 10:00 AM EDT Procedure Only Endoscopy, [facility] [address] [place] [address] Gasper Kim, DO [address] [place] [address] 11/14/2023 12:20 PM EDT Office Visit Gastroenterology, [facility] [address] [place] [address] Gasper Kim, DO [address] [place] [address] 03/26/2024 1:30 PM EDT Office Visit Nephrology [address] [place] [address] ZemaitisAyana PA-C [address] [place] [address] 05/01/2024 3:00 PM EDT Office Visit Dermatology [address] [place] [address] Anya Pratt PA-C [address] [place] [address] [place] [address] Health Maintenance Due Date Last Done Comments DISCUSS TOBACCO CESSATION (REFER TO SMARTSET #3291) 1942 COVID-19 Vaccine (4 - 2023-24 season) 2023 06/01/2021, 10/20/2020, 09/15/2020 Influenza Vaccine (FLU shot) (#1) 2023 Depression Screening 08/11/2023 08/11/2022 Albumin/Creatinine Ratio 08/15/2023 08/15/2022, 01/31 GFR 08/17/2023 02/14/2023, 12/02, 08/12/2022, Additional history exists CKD PHOS USE SMARTSET 83793 12/28/202312/02, 04/26/2022, 11/23/2021, Additional history exists CKD HGB USE SMARTSET 24819 02/29/202402/28, 02/28/2023, 02/14/2023, Additional history exists O2 ASSESSMENT COMPLETED IN PAST YEAR FOR COPD 02/29/2024 02/28/2023 DXA Scan 08/01/2024 08/01/2022, 10/2020, 11/21/2013 COLONOSCOPY-EVERY 5 YRS AGES 18-100 02/23/2027 02/23/2022, 08/01/2019, 08/01/2019 DTaP,Tdap,and Td Vaccines (2 - Td or Tdap) 08/07/2030 08/07/2020 (Not indicated), 09/01/1998 Pneumococcal Vaccine: 65+ Years Completed 05/16/2016, 12/01/2014, 12/01/2013, Additional history exists VITAMIN D LEVEL ONCE IN A LIFETIME-USE SMARTSET# 15905 Completed 12/27/2022, 08/12/2022, 03/15/2022, Additional history exists [...] Procedure Name Priority Date/Time Associated Diagnosis Comments PATHOLOGY SCANNED RESULT 07/26/2023 documented in this encounter Results * PATHOLOGY SCANNED RESULT (07/26/2023) 07/26/2023 Gasper Kim DO PATHOLOGY documented in this encounter Care Teams Hospital Mortician Relationship Specialty Start Date End Date Tameka Hooper MD [address] [place] [address] [place] [phone] PCP - General Family Medicine 05/29/19 documented as of this encounter
--- OUTSIDE RECORDS SUMMARY | 2023-08-05 18:27 | External Medical Summary | Summary of Care ---
Author Name Unknown Organization [facility] Address [address] [facility] [address] Phone [phone] Care Team Providers Care Black Top Spreader Machine Operator Name Role Phone Tameka Hooper MD Primary Care Prov ider Encounter Details Date Type Department Care Team (Late st Contact Info) Description 07/31/2023 Orders Only Gastroenterology, [facility] [address] [place] [address] Joshua Orantes MD [address] [place] [address] Allergies Active Allergy Reactions Criticality Noted Date Comments Amoxicillin Rash 02/07/2020 Bactrim Rash 12/15/2011 Ciprofloxacin Rash 12/15/2011 Diltiazem Rash 05/29/2019 Piroxicam Rash 12/15/2011 Cephalexin Rash 12/15/2011 Meloxicam Rash 05/29/2019 Other reaction(s): Other Cilostazol Rash,Unknown 12/15/2011 Sulfamethoxazole High 01/19/2023 Other Reaction(s): Rash Trimethoprim High 01/19/2023 Other Reaction(s): Rash documented as of this encounter (statuses as of 07/31/2023) Medications Medication Sig Dispensed Refills Start Date End Date Status [place]-3 Fatty Acids (FISH OIL) 500 MG Capsule [...] WHEEZING 360 mL 5 12/07/2022 Active Nystatin 572681 UNIT/GM External CreamIndications:Ye ast dermatitis Apply topically [...] as of this encounter (statuses as of 07/31/2023) Active Problems Problem Noted Date Diagnosed Date [...] as of this encounter (statuses as of 07/31/2023) Resolved Problems Problem Noted Date Diagnosed Date [...] as of this encounter (statuses as of 07/31/2023) Immunizations Name Administration Dates Next Due COVID-19 [...] 10:40 AM EST Office Visit Family Medicine [address] [place] [phone] Tameka Hooper MD [address] [place] [address] [place] [address] 08/14/2023 2:00 PM EST Nurse Only Ancillary [address] [place] [address] [place], Nurse Annual Wellness [address] [place] [address] [place] [address] 09/01/2023 12:00 PM EST Office Visit Sleep Disorders Ctr [facility] 132 [facility] [place] [phone] Lynn Busby DO 132 [facility] [place] [address] 10/23/2023 2:30 PM EDT Office Visit Rheumatology [address] [place] [phone] Jessica Stubbs CRNP [address] [place] [address] [place] [address] 10/31/2023 1:00 PM EDT Cardiac Studies Cardiac Studies, [facility] 132 [facility] [place] [address] 11/01/2023 9:30 AM EDT Procedure Only Endoscopy, [facility] [address] [place], [place] [address] Gasper Kim, DO [address] [place], [place] [address] 11/01/2023 10:00 AM EDT Procedure Only Endoscopy, [facility] [address] [place], [place] [address] Gasper Kim, DO [address] [place], [place] [address] 11/14/2023 12:20 PM EDT Office Visit Gastroenterology, [facility] [address] [place] [address] Gasper Kim, DO [address] [place] [address] 03/26/2024 1:30 PM EDT Office Visit Nephrology [address] [place] [address] ZemaitisAyana PA-C 200 [facility] [place] [address] 05/01/2024 3:00 PM EDT Office Visit Dermatology [address] [place] [address] Anya Pratt PA-C [address] [place] [address] [place] [address] Health Maintenance Due Date Last Done Comments DISCUSS TOBACCO CESSATION (REFER TO SMARTSET #3291) 1940 COVID-19 Vaccine ( season) 2023 06/01/2021, 10/20/2020, 09/15/2020 Influenza Vaccine (FLU shot) (#1) 2023 Depression Screening 08/11/2023 08/11/2022 Albumin/Creatinine Ratio 08/15/2023 08/15/2022, 01/31 GFR 08/17/2023 02/14/2023, 12/02, 08/12/2022, Additional history exists CKD PHOS USE SMARTSET 57510 12/28/202312/02, 04/26/2022, 11/23/2021, Additional history exists CKD HGB USE SMARTSET 62757 02/29/202402/28, 02/28/2023, 02/14/2023, Additional history exists O2 ASSESSMENT COMPLETED IN PAST YEAR FOR COPD 02/29/2024 02/28/2023 DXA Scan 08/01/2024 08/01/2022, 10/2020, 11/21/2013 COLONOSCOPY-EVERY 5 YRS AGES 18-100 02/23/2027 07/31/2023, 02/23/2022, 08/01/2019, Additional history exists DTaP,Tdap,and Td Vaccines (2 - Td or Tdap) 08/07/2030 08/07/2020 (Not indicated), 09/01/1998 Pneumococcal Vaccine: 65+ Years Completed 05/16/2016, 12/01/2014, 12/01/2013, Additional history exists VITAMIN D LEVEL ONCE IN A LIFETIME-USE SMARTSET# 38488 Completed 12/27/2022, 08/12/2022, 03/15/2022, Additional history exists [...] Procedure Name Priority Date/Time Associated Diagnosis Comments COLONOSCOPY 07/31/2023 documented in this encounter Results * COLONOSCOPY (07/31/2023) 07/31/2023 Joshua Orantes MD GASTRO LOWER documented in this encounter Care Teams Black Top Spreader Machine Operator Relationship Specialty Start Date End Date Tameka Hooper MD [address] [place] [address] [place] [phone] PCP - General Family Medicine 05/29/19 documented as of this encounter
--- OUTSIDE RECORDS SUMMARY | 2023-08-05 18:27 | External Medical Summary | Summary of Care ---
Author Name Unknown Organization [facility] Address [address] [place] [address] Phone [phone] Care Team Providers Care Breeder Hen Service Technician Name Role Phone Tameka Hooper MD Primary Care Prov ider Encounter Details Date Type Department Care Team (Late st Contact Info) Description 07/26/2023 Result Scan Unspecified Department Gasper Kim, DO [address] [place], [place] [phone] <No scans attached> Allergies Active Allergy Reactions [...] Dispensed Refills Start Date End Date Status [place]-3 Fatty Acids (FISH OIL) 500 MG Capsule [...] WHEEZING 360 mL 5 12/07/2022 Active Nystatin 593482 UNIT/GM External CreamIndications:Ye ast dermatitis Apply topically [...] 10:40 AM EST Office Visit Family Medicine [address] [place] [phone] Tameka Hooper MD [address] [place] [address] [place] [address] 08/14/2023 2:00 PM EST Nurse Only Ancillary [address] [place] [address] [place], Nurse Annual [address] [place] [address] 09/01/2023 12:00 PM EST Office Visit [facility] Disorders Ctr [facility] [place] [phone] Lynn Busby DO 132 [facility] [place] [address] 10/23/2023 2:30 PM EDT Office Visit Rheumatology [address] [place] [phone] Jessica Stubbs, [place] [address] [facility] [place] [address] 10/31/2023 1:00 PM EDT Cardiac Studies Cardiac Studies, [facility] [address] [place] [address] 11/01/2023 9:30 AM EDT Procedure Only Endoscopy, [facility] [address] [place] [address] Gasper Kim, DO [address] [place] [address] 11/01/2023 10:00 AM EDT Procedure Only Endoscopy, [facility] [address] [place] [address] Gasper Kim, DO [address] [place] [address] 11/14/2023 12:20 PM EDT Office Visit Gastroenterology, [facility] [address] [place] [address] Gasper Kim, DO [address] [place] [address] 03/26/2024 1:30 PM EDT Office Visit Nephrology [address] [place] [address] Zemaitis, Ayana Kirkpatrick PA-C [address] [place] [address] 05/01/2024 3:00 PM EDT Office Visit Dermatology [address] [place] [address] TerenceAnya denise PA-C [address] [place] [address] [place] [address] Health Maintenance Due Date Last Done Comments DISCUSS TOBACCO CESSATION (REFER TO SMARTSET #3291) 1940 COVID-19 Vaccine ( season) 2023 06/01/2021, 10/20/2020, 09/15/2020 Influenza Vaccine (FLU shot) (#1) 2023 Depression Screening 08/11/2023 08/11/2022 Albumin/Creatinine Ratio 08/15/2023 08/15/2022, 01/31 GFR 08/17/2023 02/14/2023, 12/02, 08/12/2022, Additional history exists CKD PHOS USE SMARTSET 34801 12/28/202312/02, 04/26/2022, 11/23/2021, Additional history exists CKD HGB USE SMARTSET 13549 02/29/202402/28, 02/28/2023, 02/14/2023, Additional history exists O2 ASSESSMENT COMPLETED IN PAST YEAR FOR COPD 02/29/2024 02/28/2023 DXA Scan 08/01/2024 08/01/2022, 10/2020, 11/21/2013 COLONOSCOPY-EVERY 5 YRS AGES 18-100 07/31/2028 07/31/2023, 02/23/2022, 08/01/2019, Additional history exists DTaP,Tdap,and Td Vaccines (2 - Td or Tdap) 08/07/2030 08/07/2020 (Not indicated), 09/01/1998 Pneumococcal Vaccine: 65+ Years Completed 05/16/2016, 12/01/2014, 12/01/2013, Additional history exists VITAMIN D LEVEL ONCE IN A LIFETIME-USE SMARTSET# 59132 Completed 12/27/2022, 08/12/2022, 03/15/2022, Additional history exists [...] PATHOLOGY documented in this encounter Care Teams Breeder Hen Service Technician Relationship Specialty Start Date End Date Tameka Hooper MD [address] [place] [address] [place] [phone] PCP - General Family Medicine 05/29/19 documented as of this encounter
--- OUTSIDE RECORDS SUMMARY | 2023-08-05 18:27 | External Medical Summary | Summary of Care ---
Author Name Unknown Organization [facility] Address [address] [place] [address] Phone [phone] Care Team Providers Care Market Garden Worker Name Role Phone Tameka Hooper MD Primary Care Prov ider Encounter Details Date Type Department Care Team (Late st Contact Info) Description 07/31/2023 Result Scan Unspecified Department Tameka Hooper MD [address] [place] [address] [place] [address] <No scans attached> Allergies Active Allergy Reactions Criticality Noted Date Comments Amoxicillin Rash 02/07/2020 Bactrim Rash 12/15/2011 Ciprofloxacin Rash 12/15/2011 Diltiazem Rash 05/29/2019 Piroxicam Rash 12/15/2011 Cephalexin Rash 12/15/2011 Meloxicam Rash 05/29/2019 Other reaction(s): Other Cilostazol Rash,Unknown 12/15/2011 Sulfamethoxazole High 01/19/2023 Other Reaction(s): Rash Trimethoprim High 01/19/2023 Other Reaction(s): Rash documented as of this encounter (statuses as of 08/02/2023) Medications Medication Sig Dispensed Refills Start Date End Date Status [place]-3 Fatty Acids (FISH OIL) 500 MG Capsule [...] WHEEZING 360 mL 5 12/07/2022 Active Nystatin 717831 UNIT/GM External CreamIndications:Ye ast dermatitis Apply topically [...] as of this encounter (statuses as of 08/02/2023) Active Problems Problem Noted Date Diagnosed Date [...] bilateral low back pain without sciatica 02/04/2020 Macular degeneration 05/29/2019 S/P bilateral cataract extraction 05/29/2019 Colostomy status 05/29/2019 Paroxysmal atrial fibrillation 05/29/2019 H/O resection of large bowel 05/29/2019 Diverticulosis of large intestine without hemorr angelica 05/29/2019 Mixed hyperlipidemia 05/29/2019 Tobacco use disorder 05/29/2019 FRANCIS and COPD overlap syndrome 12/15/2011 documented as of this encounter (statuses as of 08/02/2023) Resolved Problems Problem Noted Date Diagnosed Date [...] to osteoporosis with routine healing 02/07/2020 03/24/2022 Major depressive disorder, s chata episode, unspecified 07/10/2019 07/31/2023 Overview: historical Essential (primary) hypertension 07/10/2019 07/15/2021 Age-related osteoporosis wit hout current pathological fracture 07/10/2019 02/07/2020 COPD, moderate 12/15/2011 08/17/2022 Overview: Per COPD GOLD Classification Glaucoma 12/15/2011 07/10/2019 documented as of this encounter (statuses as of 08/02/2023) Immunizations Name Administration Dates Next Due COVID-19 [...] Care Team (Late st Contact Info) Description 08/14/2023 2:00 PM EST Nurse Only Ancillary [address] [place] [address] [place], Nurse [address] [place] [address] 09/01/2023 12:00 PM EST Office Visit Sleep Disorders Ctr [facility] [address] [place] [phone] Lynn Busby, DO [address] [place] [address] 10/23/2023 2:30 PM EDT Office Visit Rheumatology [address] [place] [phone] Jessica Stubbs CRNP [facility] [place] [address] 10/31/2023 1:00 PM EDT Cardiac Studies Cardiac Studies, [facility] [address] [place] [address] 11/01/2023 9:30 AM EDT Procedure Only Endoscopy, [facility] [address] [place] [address] Gasper Kim, DO [address] [place] [address] 11/01/2023 10:00 AM EDT Procedure Only Endoscopy, [facility] [address] [place] [address] Gasper Kim, DO [address] [place] [address] 11/14/2023 12:20 PM EDT Office Visit Gastroenterology, [facility] [address] [place] [address] Gasper Kim, DO [address] [place] [address] 03/26/2024 1:30 PM EDT Office Visit Nephrology [address] [place] [address] ZemaAyana hurtado PA-C [address] [place] [address] 05/01/2024 3:00 PM EDT Office Visit Dermatology [address] [place] [address] TerenceAnya mendoza PA-C [address] [place] [address] [place] [address] Health Maintenance Due Date Last Done Comments DISCUSS TOBACCO CESSATION (REFER TO SMARTSET #3291) 1940 COVID-19 Vaccine ( season) 2023 06/01/2021, 10/20/2020, 09/15/2020 Influenza Vaccine (FLU shot) (#1) 2023 Depression Screening 08/11/2023 08/11/2022 Albumin/Creatinine Ratio 08/15/2023 08/15/2022, 01/31 GFR 08/17/2023 02/14/2023, 12/02, 08/12/2022, Additional history exists CKD PHOS USE SMARTSET 25335 12/28/202312/02, 04/26/2022, 11/23/2021, Additional history exists CKD HGB USE SMARTSET 03202 02/29/202402/28, 02/28/2023, 02/14/2023, Additional history exists O2 ASSESSMENT COMPLETED IN PAST YEAR FOR COPD 02/29/2024 02/28/2023 DXA Scan 08/01/2024 08/01/2022, 07/05, 07/07/2020, Additional history exists COLONOSCOPY-EVERY 5 YRS AGES 18-100 07/31/2028 07/31/2023, 02/23/2022, 02/23/2022, Additional history exists DTaP,Tdap,and Td Vaccines (2 - Td or Tdap) 08/07/2030 08/07/2020 (Not indicated), 09/01/1998 Pneumococcal Vaccine: 65+ Years Completed 05/16/2016, 12/01/2014, 12/01/2013, Additional history exists VITAMIN D LEVEL ONCE IN A LIFETIME-USE SMARTSET# 47437 Completed 12/27/2022, 08/12/2022, 03/15/2022, Additional history exists [...] Date/Time Associated Diagnosis Comments PATHOLOGY SCANNED RESULT 07/31/2023 documented in this encounter Results * PATHOLOGY SCANNED RESULT (07/31/2023) 07/31/2023 Tameka Cai MD PATHOLOGY documented in this encounter Care Teams Market Garden Worker Relationship Specialty Start Date End Date Tameka Hooper MD [address] [place] [address] [place] [address] PCP - General Family Medicine 05/29/19 documented as of this encounter
--- OUTSIDE RECORDS SUMMARY | 2023-08-05 18:27 | External Medical Summary | Summary of Care ---
Author Name Unknown Organization [facility] Address [address] [place] [address] Phone [phone] Care Team Providers Care Machining Supervisor Name Role Phone Tameka Hooper MD Primary Care Prov ider Reason for Visit * Reason Onset Date Comments Advice 07/26/2023 Encounter Details Date Type Department Care Team (Late st Contact Info) Description 07/26/2023 Telephone Gastroenterology, [address] [phone] Gasper Kim, DO [address] [place] [address] Advice Allergies Active Allergy Reactions Criticality Noted Date Comments Amoxicillin Rash 02/07/2020 Bactrim Rash 12/15/2011 Ciprofloxacin Rash 12/15/2011 Diltiazem Rash 05/29/2019 Piroxicam Rash 12/15/2011 Cephalexin Rash 12/15/2011 Meloxicam Rash 05/29/2019 Other reaction(s): Other Cilostazol Rash,Unknown 12/15/2011 Sulfamethoxazole High 01/19/2023 Other Reaction(s): Rash Trimethoprim High 01/19/2023 Other Reaction(s): Rash documented as of this encounter (statuses as of 07/26/2023) Medications Medication Sig Dispensed Refills Start Date End Date Status [place]-3 Fatty Acids (FISH OIL) 500 MG Capsule [...] WHEEZING 360 mL 5 12/07/2022 Active Nystatin 859664 UNIT/GM External CreamIndications:Ye ast dermatitis Apply topically [...] as of this encounter (statuses as of 07/26/2023) Active Problems Problem Noted Date Diagnosed Date [...] as of this encounter (statuses as of 07/26/2023) Resolved Problems Problem Noted Date Diagnosed Date [...] as of this encounter (statuses as of 07/26/2023) Immunizations Name Administration Dates Next Due COVID-19 [...] encounter Miscellaneous Notes * Telephone Encounter - Gasper Kim DO [...] 10:40 AM EST Office Visit Family Medicine [address] [place] [phone] Tameka Hooper MD [address] [place] [address] [place] [address] 08/14/2023 2:00 PM EST Nurse Only Ancillary [address] [place] [address] [place], Nurse Annual Wellness [address] [place] [address] [place] [address] 09/01/2023 12:00 PM EST [facility] [address] [place] [phone] Lynn Busby, 132 [facility] [place] [address] 10/23/2023 2:30 PM EDT Office Visit Rheumatology [address] [place] [phone] Jessica Stubbs, [place] 25[address] [facility] [place] [address] 10/31/2023 1:00 PM EDT Cardiac Studies Cardiac Studies, [facility] [address] [facility] [place] [address] 11/01/2023 8:30 AM EDT Procedure Only Endoscopy, [facility] [address] [place] [address] Gasper Kim, DO [address] [place] [address] 11/14/2023 12:20 PM EDT Office Visit Gastroenterology, [facility] [address] [place] [address] Gasper Kim, DO [address] [place] [address] 03/26/2024 1:30 PM EDT Office Visit Nephrology [address] [place] [address] ZemaitisAyana PA-C [address] [place] [address] 05/01/2024 3:00 PM EDT Office Visit Dermatology [address] [place] [address] Anya Pratt PA-C [address] [place] [address] [place] [address] Scheduled Orders Name Type Priority Associated Diagnoses Orde r Schedule EGD, FLEXIBLE, W/BIOPSY Procedures Routine Acute gastric ulcer with hemorrhage Ordered: 07/26/2023 COLONOSCOPY Gastro Lower Routine Colitis Ordered: 07/26/2023 Health Maintenance Due Date Last Done Comments DISCUSS TOBACCO CESSATION (REFER TO SMARTSET #8078) 1940 COVID-19 Vaccine ( season) 2023 06/01/2021, 10/20/2020, 09/15/2020 Influenza Vaccine (FLU shot) (#1) 2023 Depression Screening 08/11/2023 08/11/2022 Albumin/Creatinine Ratio 08/15/2023 08/15/2022, 01/31 GFR 08/17/2023 02/14/2023, 12/02, 08/12/2022, Additional history exists CKD PHOS USE SMARTSET 12140 12/28/202312/02, 04/26/2022, 11/23/2021, Additional history exists CKD HGB USE SMARTSET 06722 02/29/202402/28, 02/28/2023, 02/14/2023, Additional history exists O2 ASSESSMENT COMPLETED IN PAST YEAR FOR COPD 02/29/2024 02/28/2023 DXA Scan 08/01/2024 08/01/2022, 10/2020, 11/21/2013 COLONOSCOPY-EVERY 5 YRS AGES 18-100 02/23/2027 02/23/2022, 08/01/2019, 08/01/2019 DTaP,Tdap,and Td Vaccines (2 - Td or Tdap) 08/07/2030 08/07/2020 (Not indicated), 09/01/1998 Pneumococcal Vaccine: 65+ Years Completed 05/16/2016, 12/01/2014, 12/01/2013, Additional history exists VITAMIN D LEVEL ONCE IN A LIFETIME-USE SMARTSET# 00782 Completed 12/27/2022, 08/12/2022, 03/15/2022, Additional history exists [...] colitis documented in this encounter Care Teams Machining Supervisor Relationship Specialty Start Date End Date Tameka Hooper MD [address] [place] [address] [place] [phone] PCP - General Family Medicine 05/29/19 documented as of this encounter
--- OUTSIDE RECORDS SUMMARY | 2023-08-05 18:27 | External Medical Summary | Summary of Care ---
Author Name Unknown Organization [facility] [address] [facility] [address] Phone [phone] Care Team Providers Care Cottrell Operator Name Role Phone Tameka Hooper MD Primary Care Prov ider Encounter Details Date Type Department Care Team (Late st Contact Info) Description 07/26/2023 Orders Only Gastroenterology, [facility] [address] [place] [address] Gasper Kim DO [address] [place] [address] Allergies Active Allergy Reactions Criticality Noted Date [...] Dispensed Refills Start Date End Date Status Clarissa-3 Fatty Acids (FISH OIL) 500 MG Capsule [...] WHEEZING 360 mL 5 12/07/2022 Active Nystatin 334958 UNIT/GM External CreamIndications:Ye ast dermatitis Apply topically [...] 10:40 AM EST Office Visit Family Medicine [address] [place] [phone] Tameka Hooper MD [address] [place] [address] [place] [address] 08/14/2023 2:00 PM EST Nurse Only Ancillary [address] [place] [address] [place], Nurse Annual Wellness [address] [place] [address] [place] [address] 09/01/2023 12:00 PM EST Office Visit Sleep Disorders Ctr [facility] [address] [facility] [place] [phone] Lynn Busby DO [address] [facility] [place] [address] 10/23/2023 2:30 PM EDT Office Visit Rheumatology [address] [place] [phone] Jessica Stubbs CRNP [address] [place] [address] [place] [address] 10/31/2023 1:00 PM EDT Cardiac Studies Cardiac Studies, [facility] [address] [facility] [place] [address] 11/01/2023 8:30 AM EDT Procedure Only Endoscopy, [place] [address] [place] [address] Gasper Kim, DO [address] [place] [address] 11/14/2023 12:20 PM EDT Office Visit Gastroenterology, [facility] [address] [place] [address] Gasper Kim, DO [address] [place] [address] 03/26/2024 1:30 PM EDT Office Visit Nephrology [address] [place] [address] Zemaitis, Ayana Kirkpatrick PA-C [address] [place] [address] 05/01/2024 3:00 PM EDT Office Visit Dermatology [address] [place] [address] TerenceAnya mendoza PA-C [address] [place] [address] [place] [address] Health Maintenance Due Date Last Done Comments DISCUSS TOBACCO CESSATION (REFER TO SMARTSET #3291) 1940 COVID-19 Vaccine ( season) 2023 06/01/2021, 10/20/2020, 09/15/2020 Influenza Vaccine (FLU shot) (#1) 2023 Depression Screening 08/11/2023 08/11/2022 Albumin/Creatinine Ratio 08/15/2023 08/15/2022, 01/31 GFR 08/17/2023 02/14/2023, 12/02, 08/12/2022, Additional history exists CKD PHOS USE SMARTSET 87660 12/28/202312/02, 04/26/2022, 11/23/2021, Additional history exists CKD HGB USE SMARTSET 85839 02/29/202402/28, 02/28/2023, 02/14/2023, Additional history exists O2 ASSESSMENT COMPLETED IN PAST YEAR FOR COPD 02/29/2024 02/28/2023 DXA Scan 08/01/2024 08/01/2022, 10/2020, 11/21/2013 COLONOSCOPY-EVERY 5 YRS AGES 18-100 02/23/2027 02/23/2022, 08/01/2019, 08/01/2019 DTaP,Tdap,and Td Vaccines (2 - Td or Tdap) 08/07/2030 08/07/2020 (Not indicated), 09/01/1998 Pneumococcal Vaccine: 65+ Years Completed 05/16/2016, 12/01/2014, 12/01/2013, Additional history exists VITAMIN D LEVEL ONCE IN A LIFETIME-USE SMARTSET# 11945 Completed 12/27/2022, 08/12/2022, 03/15/2022, Additional history exists [...] Procedure Name Priority Date/Time Associated Diagnosis Comments UPPER GI ENDOSCOPY 07/26/2023 documented in this encounter Results * UPPER GI ENDOSCOPY (07/26/2023) 07/26/2023 Gasper Kim DO GASTRO UPPER documented in this encounter Care Teams Cottrell Operator Relationship Specialty Start Date End Date Tameka Hooper MD [address] [place] [address] [place] [address] PCP - General Family Medicine 05/29/19 documented as of this encounter
--- NOTE | 2023-08-05 18:35 | Emergency Department Note ---
Impression & Plan Chronic respiratory failure with hypoxia, COPD (chronic obstructive pulmonary disease), Anemia ED Provider Note NAME: ANGELA BAILON AGE: 83 SEX: F : 1940 ARRIVES VIA: Ambulance INFORMANT: Patient, EMS ED PROVIDER(S): Torey Pickett DO CHIEF COMPLAINT: Difficulty breathing HPI: The patient is an 83-year-old female who presented to the emergency department for difficulty breathing. The patient was admitted to our facility recently with similar complaints. She was diagnosed and treated for COPD. The patient was just discharged from our facility today. She has a history of anemia as well. As soon as she got home she started noticing worsening shortness of breath and coughing. She has no hemoptysis. She denies having any fever. The patient was found to be hypoxic prior to arrival. She was treated with a DuoNeb prior to arrival. She normally wears 3 L. This was increased to 4 L. ROS: See above HPI for pertinent positives & negatives. A total of 10 systems reviewed and were otherwise negative. PAST MEDICAL HISTORY: See Below PAST SURGICAL HISTORY: See Below FAMILY HISTORY: See Below SOCIAL HISTORY: See Below HOME MEDICATIONS: See Below ALLERGIES: See Below VITALS: See Below PHYSICAL EXAMINATION: GENERAL: The patient is awake and alert. She is comfortable appearing. EYES: The conjunctivae are clear. The pupils are round and reactive. EARS, NOSE, MOUTH AND THROAT: The nose is without any evidence of any deformity. NECK: The neck is nontender and supple. RESPIRATORY: Diminished breath sounds are noted throughout. There is rhonchi noted in all lung garza. There was conversational dyspnea appreciated CARDIOVASCULAR: Regular rate and rhythm noted there no murmurs rubs or gallops normal S1 normal S2. GASTROINTESTINAL: The abdomen is soft. Abdomen is nontender. MUSCULOSKELETAL/EXTREMITIES: There is no evidence of gross deformity full range of motion is noted in the hips and shoulders. SKIN: There is no obvious evidence of any rash. Pedal edema was noted bilaterally NEUROLOGIC: Patient is awake alert and oriented x3 MEDICAL DECISION MAKING: The patient is an 83-year-old female who presented to the emergency department for shortness of breath. The patient was recently discharged from our facility. She was having exertional dyspnea and return back to the emergency department by ambulance. The patient was not felt to be a good candidate for outpatient management. The patient was self think she may need placement at this time. The patient was treated with a DuoNeb prior to arrival. This significantly improved her symptoms. I discussed her condition with the on-call [facility] hospitalist. They have agreed to evaluate the patient in the emergency department. Triage Nursing notes reviewed. Prior medical records reviewed Vital Signs: reviewed and remarkable for elevated blood pressure. Differential diagnosis: Reactive airway disease, pneumonia, pneumothorax, COPD, CHF, infections, cardiac ischemia, pulmonary embolism, musculoskeletal, gastrointestinal, as well as other pathologies. ER treatment provided: See below Diagnostics interpreted by me: ECG: EKG was obtained in the emergency department. My interpretation is sinus rhythm with first-degree AV block at 65 bpm. There is no ectopy. There is no acute ST segment abnormalities noted. This was compared to a tracing from July 31, 2023. No changes were noted. Cardiac Monitoring: An order was placed for continuous cardiac monitoring. The monitor shows a rate of 70 bpm with sinus rhythm. Laboratory studies: As stated above and show below. Imaging studies: See below. Radiographic imaging was reviewed by myself Consultation(s): [facility] will [facility] the patient in the emergency department. Past Med/Surg History Medical History Encounter for pre-operative examination FRANCIS (obstructive sleep apnea) Osteoarthritis Chronic back pain Diverticular disease Skin cancer of nose 1970s--unsure which kind, removed in office On anticoagulant therapy xarelto daily On home oxygen therapy 4L N/C PRN PVD (peripheral vascular disease) PAF (paroxysmal atrial fibrillation) on xarelto/flecainide--follows with Dr. Savage Depression Macular degeneration Osteoporosis CKD (chronic kidney disease), stage III HTN (hypertension) HLD (hyperlipidemia) Multiple pulmonary nodules Tobacco dependence due to cigarettes 5 per day Chronic bronchitis COPD (chronic obstructive pulmonary disease) inhaler daily/prn, nebulizer daily/prn; continuous oxygen 3L Colostomy in place Diverticulitis Surgical History History of appendectomy taken out during resection of bowel History of colonoscopy History of tooth extraction History of cataract extraction with lens replacement bilateral History of tonsillectomy History of tubal ligation History of resection of large bowel (~10/2018) perforated bowel d/t diverticulitis History of creation of ostomy 10/2018 Family History Father Pancreatic cancer Mother Stroke Other No family history of adverse response to anesthesia Social History Smoking Status: Former smoker Tobacco Type: Cigarettes Age Started Using Tobacco: 22; Cigarettes Per Day: 3; Second Hand Exposure: Yes (hx growing up); Do You Dip or Chew Tobacco: No; Hx Alcohol Use: No Hx Substance Use: No Preferred Language: Persian Communication Ability: Effective Equity Manager Required: No Beliefs That Will Affect Care: None marital status: / Current Living Situation: Alone Current Living Situation Comment: Mobile home, [address] Feels Safe at Home: Yes Assistive Devices: Glasses and Oxygen - Continuous Allergies Allergies Allergy/AdvReac Type Severity Reaction Status Date / Time amoxicillin Allergy Intermediate Rash Verified 08/05/23 18:59 cephalexin [From Keflex] Allergy Intermediate Rash Verified 08/05/23 18:59 cilostazol [From Pletal] Allergy Intermediate Rash Verified 08/05/23 18:59 ciprofloxacin [From Cipro] Allergy Intermediate Rash Verified 08/05/23 18:59 diltiazem Allergy Intermediate Rash Verified 08/05/23 18:59 felodipine Allergy Intermediate Rash Verified 08/05/23 18:59 meloxicam Allergy Intermediate Rash Verified 08/05/23 18:59 sulfamethoxazole Allergy Intermediate Rash Verified 08/05/23 18:59 [From Bactrim] trimethoprim [From Bactrim] Allergy Intermediate Rash Verified 08/05/23 18:59 Home Meds Home Medications Medication Instructions Recorded Confirmed calcium carbonate 500 mg-vitamin 1 tab PO QPM 03/10/19 08/05/23 D3 10 mcg (400 unit) tablet (Calcium 500 + D) escitalopram oxalate 10 mg tablet 10 mg PO QAM 03/10/19 08/05/23 (Lexapro) ferrous sulfate 325 mg (65 mg 325 mg PO QAM 03/10/19 08/05/23 iron) tablet vit C 250 mg-vit E 90 mg-zinc 40 1 tab PO QAM 03/10/19 08/05/23 mg-copper 1 [id number]-[id number]-yqqtjr capsule (PreserVision AREDS-2) ascorbic acid (vitamin C) 500 mg 500 mg PO QAM 12/08/20 08/05/23 tablet (Vitamin C) cyclosporine 0.05 % eye drops in a 1 drp OPB BID 12/08/20 08/05/23 dropperette (Restasis) rivaroxaban 15 mg tablet (Xarelto) 15 mg PO QPM 11/05/21 08/05/23 mesalamine 1.2 gram tablet,delayed 3.6 g PO QAM 03/14/23 08/05/23 release acetaminophen 325 mg tablet 325 mg PO Q6H PRN Pain 07/25/23 08/05/23 (Tylenol) ipratropium 0.5 mg-albuterol 3 mg 3 ml inhalation Q4H PRN Wheezing 07/25/23 08/05/23 (2.5 mg base)/3 mL nebulization soln omega-3 fatty acids 500 mg capsule 500 mg PO DAILY 07/25/23 08/05/23 solifenacin 5 mg tablet 5 mg PO QAM 07/25/23 08/05/23 triamcinolone acetonide 0.05 % 1 applic topical BID PRN AFFECTED 07/25/23 08/05/23 topical ointment AREA Previous Rx's Medication Instructions Recorded guaifenesin 600 mg tablet, 600 mg PO BID #60 tabs 07/16/20 extended release 12 hr (Mucinex) Portable Oxygen #1 ea 03/25/21 Auto Titrating CPAP #1 ea 02/03/23 CPAP Supplies #1 ea 02/03/23 albuterol sulfate 90 mcg/actuation 1 inh inhalation QID PRN Shortness 02/03/23 aerosol inhaler (ProAir HFA) Of Breath #8.5 grams budesonide 0.25 mg/2 mL suspension 0.25 mg (2 mL) inhalation BID #60 02/03/23 for nebulization mL umeclidinium 62.5 mcg-vilanterol 1 inh inhalation QAM #60 ea 02/03/23 25 mcg/actuation powdr for inhalation (Anoro Ellipta) lisinopril 10 mg tablet 10 mg PO QAM #30 tabs 08/05/23 nitrofurantoin 100 mg PO BID 2 days #4 caps 08/05/23 monohydrate/macrocrystals 100 mg capsule pantoprazole 40 mg tablet,delayed 40 mg PO QAM #30 tabs 08/05/23 release sucralfate 100 mg/mL oral 1 g (10 mL) PO QID 2 days #80 mL 08/05/23 suspension verapamil 120 mg tablet,extended 120 mg PO QAM #30 tabs 08/05/23 release (Calan SR) Results & Data (ED) Vital Signs Vital Signs - 24 hr 08/05/23 18:47 08/05/23 18:53 08/05/23 18:53 Temperature 36.7 C Temperature Source Oral Pulse Rate 67 63 Respiratory Rate 22 Respiratory Effort / Characteristics Non-Labored Spontaneous Respiratory Depth Normal Respiratory Pattern Regular Blood Pressure 179/71 H Blood Pressure Mean 107 Blood Pressure Position Lying Pulse Oximetry 94 94 Oxygen Delivery Method Room Air Room Air Oxygen Flow Rate 4 Sepsis Recent Fever Within 48 Hours No Sepsis New/Unexplained Change in Mental Status No Sepsis Action Taken by Nursing No Action Required Home Medications Current Medication List: was personally reviewed by me Laboratory Data Attestation: I reviewed the patient's lab results. 08/05/23 18:50 08/05/23 18:50 Lab Results 08/05/23 Range/Units 18:50 VBG pH 7.40 (7.36-7.41) VBG pCO2 54 H (38-50) mmHg VBG pO2 30 mmHg VBG HCO3 33 mmol/L VBG O2 Saturation < 60.0 % VBG Base Excess 7.0 mEq/L Imaging Data Attestation: I personally reviewed and interpreted this imaging study as follows: My Impression: 1 view chest x-ray was obtained in the emergency department. My interpretation is no free air, final report below. Radiologist's Impression: Chest X-Ray 08/05/23 18:28 XR chest 1V portable HISTORY: 83 years-old Female Dyspnea acute shortness of breath COMPARISON: 07/27/2023 TECHNIQUE: AP view of the chest FINDINGS: Cardiac silhouette is enlarged. Pulmonary vascular congestion. Emphysema with chronic interstitial coarsening. Small pleural effusions with mild bibasilar consolidation. IMPRESSION: 1. Cardiomegaly with pulmonary vascular congestion. 2. Small pleural effusions with bibasilar consolidation. 3. Pulmonary emphysema. ACT 112: Negative or not required by law. The above report was generated using voice recognition software. It may contain grammatical, syntax or spelling errors. Electronically signed by: Stephen Rapp M.D. 08/05/2023 6:43 PM Discharge Plan Visit Data Chief Complaint: Shortness of Breath/Dyspnea Stated Complaint: SOB ED Provider: Torey Pickett Discharge Problem: Chronic respiratory failure with hypoxia, COPD (chronic obstructive pulmonary disease), Anemia Patient Disposition: Being Evaluated by Hospitalist Discharge Instructions Interventions: ED Discharge Assessment Last Done: 08/05/23 20:45 Discharge Problem: COPD (chronic obstructive pulmonary disease) Qualifiers: COPD type: unspecified COPD Qualified Code(s): J44.9 - Chronic obstructive pulmonary disease, unspecified Anemia Qualifiers: Anemia type: unspecified type Qualified Code(s): D64.9 - Anemia, unspecified
--- NOTE | 2023-08-05 18:43 | History & Physical Report ---
Date of Service August 05, 2023 Assessment & Plan (1) Acute on chronic respiratory failure: (2) COPD (chronic obstructive pulmonary disease): (3) Physical deconditioning: (4) Atrioventricular (AV) dissociation: (5) Anemia: (6) PVD (peripheral vascular disease): (7) PAF (paroxysmal atrial fibrillation): (8) CKD (chronic kidney disease), stage III: (9) HTN (hypertension): (10) HLD (hyperlipidemia): (11) Tobacco dependence due to cigarettes: (12) Colostomy in place: (13) FRANCIS (obstructive sleep apnea): Plan Pt is a 83yoF with PMHx significant for IBD noted on pathology in 2021, history of diverticulitis and resection of large bowel with colostomy, chronic hypoxemic respiratory failure, COPD, FRANCIS on 3L NC, paroxysmal atrial fibrillation on Xarelto, hypertension, CKD 3, depression who presented with melena and generalized weakness over the past 2 months in the setting increased SOB. Was admitted to our service from 07/25 and discharged earlier today for a GI bleed secondary to stomach ulcer seen on endoscopy, A-fib, second to third- degree variable heart block. GI recommends 40 mg daily pantoprazole for the next 3 months and then follow-up EGD, follow-up with gastroenterology in the clinic as well. Radiology recommends discontinuing flecainide and reducing verapamil dose to 120 mg daily. Had lisinopril increased to 10 mg daily. Has COPD with history of chronic respiratory failure on 3 L nasal cannula and [place] [facility] [place]. SOB Acute on chronic hypoxic respiratory failure COPD (chronic obstructive pulmonary disease) FRANCIS (obstructive sleep apnea) Returned home and felt more shortness of breath with exertion, anxious about living alone with current health conditions and requesting rehab versus placement Currently saturating 94% on 4 L, will attempt to wean down to baseline 3 L. Given baseline COPD, goal O2 around 90% No longer using CPAP at night, does not want a new machine Continue home Budesonide, Anoro inh, Duonebs CXR with evidence of cardiomegaly with pulmonary vascular congestion, CT chest wo contrast pending Giving 20mg IV lasix, monitor diuresis Procal ordered [facility]/ [facility] - consider consult if no improvement to SOB Recent GI bleed, acute blood loss anemia Generalized weakness Hgb 6.9 on previous admission (baseline hgb ~14), was transfused 1U PRBC, now with hgb 8.4 Iron level of 13, supplemented with IV Venofer Vit b12 and folate level wnl S/p EGD on 07/26 with GI, appreciate recs -noted gastric ulcers (likely cause of melena), nonobstructing Schatzki ring, small hiatal hernia -biopsy/pathology of gastric ulcer noting only inflamed mucosa -NO NSAIDS, likely cause of gastric ulcers per GI -Continue pantoprazole 40mg daily x 3 months -sucralfate 1gm QID x 10 days -Xarelto resumed -repeat EGD in 3 months - s/p polypectomy - pathology c/w tubular adenoma - follow up w/ PCP and GI Second degree/third degree Heart block On 07/27, pt with episode of dizziness and SOB, and increasing episodes of bradycardia. EKG obtained at that time concerning for second degree heart block, pt with also noted episodes of 3rd degree heart block on telemetry Cardiology was consulted- appreciate recs Verapamil reduced to 120 mg daily, flecainide discontinued PAF (paroxysmal atrial fibrillation) Pt previously in sinus rhythm on admission Verapamil reduced to 120 mg daily, flecainide discontinued Xarelto resumed for anticoagulation Complicated UTI UA on admission suggestive of infection Urine Cx currently grew Enterococcus faecalis Started on Aztreonam (pt with many antibiotic allergies) and narrowed to macrobid -> has 3 more doses to complete course (EOT 2/4 HS) Acute on chronic kidney Disease Cr 1.27 at baseline (Baseline Cr mid 1s) LOPEZ on previous admission but resolved; lisinopril increased to 10mg on discharge. Cont dose and monitor daily BMP HTN (hypertension) BP was elevated on admission lisinopril increased to 10 mg daily. Home Verapamil was restarted on 08/01 at lower dose by cardiology Continue to monitor BP Per cardiology - Would avoid further escalation of AV lynnette blockers. If additional blood pressure control necessary, would first titrate SUE inhibitor, HCTZ may be a secondary option. Would not increase verapamil dose due to history of bradycardia. Tobacco dependence due to cigarettes Still smoking 3-4 cigarettes daily Encourage cessation IBD Diverticulitis Colostomy in place H/o colon resection in 2019 at [facility] in [place] Has colostomy bag in place Mood Continue home lexapro Urinary Urgency Continue oxybutynin DVT Ppx: Xarelto Code status: FULL Dispo: admitted to med/tele Patient seen in collaboration with Dr. Llamas. Please see addendum. I spent a total of 75 minutes coordinating, documenting, and providing care for this patient excluding time spent in the performance of separately billed services. History of Present Illness Chief Complaint: Shortness of breath Primary Care Provider: Tameka Mao MD This is an 83-year-old female with PMH of history of suspected IBD, history of diverticulitis and resection of large bowel with colostomy, chronic hypoxemic respiratory failure, COPD, FRANCIS on 3L NC, paroxysmal atrial fibrillation on Xarelto, hypertension CKD 3, depression and other medical problems listed below who presents with generalized weakness over the past 2 months and presents with worsening shortness of breath. 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 GI recommends 40 mg daily pantoprazole for the next 3 months and then follow-up EGD, follow-up with gastroenterology in the clinic as well. Radiology recommends discontinuing flecainide and reducing verapamil dose to 120 mg daily. Had lisinopril increased to 10 mg daily. Has COPD with history of chronic respiratory failure on 3 L nasal cannula and [place] [facility] [place]. Was discharged earlier today but then once she arrived home and was walking around her home, she had to keep sitting down to rest and felt significantly more SOB. When asked about her activity level while admitted for the past few weeks, patient states she did ambulate to the bathroom and back and a little bit around her room but also needed to rest then. Denies any congestion, fever or chills or significant change to shortness of breath. Rather, she feels anxious with her current health conditions to be living alone at home and is interested in possible rehab versus long-term placement. Was found to be hypoxic in the 70s initially on room air but baseline is 3 L, where she was in the high 80s. Feeling better at rest and saturating at 94% on 4 L nasal cannula. Does not feel comfortable returning home alone and is interested in placement. Allergies Allergy/AdvReac Type Severity Reaction Status Date / Time amoxicillin Allergy Intermediate Rash Verified 08/05/23 18:59 cephalexin [From Keflex] Allergy Intermediate Rash Verified 08/05/23 18:59 cilostazol [From Pletal] Allergy Intermediate Rash Verified 08/05/23 18:59 ciprofloxacin [From Cipro] Allergy Intermediate Rash Verified 08/05/23 18:59 diltiazem Allergy Intermediate Rash Verified 08/05/23 18:59 felodipine Allergy Intermediate Rash Verified 08/05/23 18:59 meloxicam Allergy Intermediate Rash Verified 08/05/23 18:59 sulfamethoxazole Allergy Intermediate Rash Verified 08/05/23 18:59 [From Bactrim] trimethoprim [From Bactrim] Allergy Intermediate Rash Verified 08/05/23 18:59 Home Medications Medication Instructions Recorded Confirmed Type calcium carbonate 500 mg-vitamin 1 tab PO QPM 03/10/19 08/05/23 History D3 10 mcg (400 unit) tablet (Calcium 500 + D) escitalopram oxalate 10 mg tablet 10 mg PO QAM 03/10/19 08/05/23 History (Lexapro) ferrous sulfate 325 mg (65 mg 325 mg PO QAM 03/10/19 08/05/23 History iron) tablet vit C 250 mg-vit E 90 mg-zinc 40 1 tab PO QAM 03/10/19 08/05/23 History mg-copper 1 oz-rrqvur-dsosou capsule (PreserVision AREDS-2) guaifenesin 600 mg tablet, 600 mg PO BID #60 tabs 07/16/20 08/05/23 Rx extended release 12 hr (Mucinex) ascorbic acid (vitamin C) 500 mg 500 mg PO QAM 12/08/20 08/05/23 History tablet (Vitamin C) cyclosporine 0.05 % eye drops in a 1 drp OPB BID 12/08/20 08/05/23 History dropperette (Restasis) Portable Oxygen #1 ea 03/25/21 01/19/23 Rx rivaroxaban 15 mg tablet (Xarelto) 15 mg PO QPM 11/05/21 08/05/23 History Auto Titrating CPAP #1 ea 02/03/23 02/03/23 Rx CPAP Supplies #1 ea 02/03/23 02/03/23 Rx albuterol sulfate 90 mcg/actuation 1 inh inhalation QID PRN Shortness 02/03/23 08/05/23 Rx aerosol inhaler (ProAir HFA) Of Breath #8.5 grams budesonide 0.25 mg/2 mL suspension 0.25 mg (2 mL) inhalation BID #60 02/03/23 08/05/23 Rx for nebulization mL umeclidinium 62.5 mcg-vilanterol 1 inh inhalation QAM #60 ea 02/03/23 08/05/23 Rx 25 mcg/actuation powdr for inhalation (Anoro Ellipta) mesalamine 1.2 gram tablet,delayed 3.6 g PO QAM 03/14/23 08/05/23 History release acetaminophen 325 mg tablet 325 mg PO Q6H PRN Pain 07/25/23 08/05/23 History (Tylenol) ipratropium 0.5 mg-albuterol 3 mg 3 ml inhalation Q4H PRN Wheezing 07/25/23 08/05/23 History (2.5 mg base)/3 mL nebulization soln omega-3 fatty acids 500 mg capsule 500 mg PO DAILY 07/25/23 08/05/23 History solifenacin 5 mg tablet 5 mg PO QAM 07/25/23 08/05/23 History triamcinolone acetonide 0.05 % 1 applic topical BID PRN AFFECTED 07/25/23 08/05/23 History topical ointment AREA lisinopril 10 mg tablet 10 mg PO QAM #30 tabs 08/05/23 08/05/23 Rx pantoprazole 40 mg tablet,delayed 40 mg PO QAM #30 tabs 08/05/23 08/05/23 Rx release verapamil 120 mg tablet,extended 120 mg PO QAM #30 tabs 08/05/23 08/05/23 Rx release (Calan SR) furosemide 20 mg tablet 20 mg PO DAILY #30 tabs 08/11/23 Rx Past Med/Surg History Medical History Encounter for pre-operative examination FRANCIS (obstructive sleep apnea) Osteoarthritis Chronic back pain Diverticular disease Skin cancer of nose 1970s--unsure which kind, removed in office On anticoagulant therapy xarelto daily On home oxygen therapy 4L N/C PRN PVD (peripheral vascular disease) PAF (paroxysmal atrial fibrillation) on xarelto/flecainide--follows with Dr. Savage Depression Macular degeneration Osteoporosis CKD (chronic kidney disease), stage III HTN (hypertension) HLD (hyperlipidemia) Multiple pulmonary nodules Tobacco dependence due to cigarettes 5 per day Chronic bronchitis COPD (chronic obstructive pulmonary disease) inhaler daily/prn, nebulizer daily/prn; continuous oxygen 3L Colostomy in place Diverticulitis Surgical History History of appendectomy taken out during resection of bowel History of colonoscopy History of tooth extraction History of cataract extraction with lens replacement bilateral History of tonsillectomy History of tubal ligation History of resection of large bowel (~10/2018) perforated bowel d/t diverticulitis History of creation of ostomy 10/2018 Family History Father Pancreatic cancer Mother Stroke Other No family history of adverse response to anesthesia Social History Smoking Status: Current every day smoker Tobacco Type: Cigarettes Age Started Using Tobacco: 22; Cigarettes Per Day: 3; Second Hand Exposure: Yes (hx growing up); Do You Dip or Chew Tobacco: No; Hx Alcohol Use: No Hx Substance Use: No Preferred Language: Bulgarian Communication Ability: Effective 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 Physical Exam Physical Exam: General Appearance: WD/WN, vitals as above, NAD, sitting up in bed, pleasant, conversing easily, appears chronically ill Head: normocephalic, atraumatic Eyes: normal inspection, PERRL, conjunctivae normal, anicteric sclerae ENT: external ear and nose normal, oropharynx normal Neck: normal visual inspection, trachea midline, no thyromegaly Respiratory: normal respiratory effort, scattered rhonchi, faint crackles at bases. No accessory muscle use Cardiovascular: regular rate, rhythm, no murmur, normal peripheral pulses, 1+ BLE edema. Vessels: no JVD Chest: normal inspection of chest Abdomen/GI: normal bowel sounds, soft, nontender, no hepatosplenomegaly, + ostomy bag with brown output Extremities/Musculoskeletal: no cyanosis or clubbing, extremities motor strength 5/5 Neurologic: PERRL, EOMI, accommodation nl, no face palsy, no dysarthria, CN's II-XI intact bilaterally and moves all extremities Psychiatric: A+Ox3, euthymic affect Skin: no rashes, normal color, warm/dry Results & Data Results & Data Laboratory Results Short CBC 08/05/23 Range/Units 18:50 WBC 7.95 (4.8-10.8) K/ul Hgb 9.4 L (12.0-16.0) g/dl Hct 31.8 L (37.0-47.0) % Plt Count 302 (130-400) K/uL BMP 08/05/23 18:50 Sodium 142 Potassium 3.7 Chloride 105 Carbon Dioxide 30 BUN 23 Creatinine 1.27 H Glucose 158 H Calcium 8.6 Liver Function 08/05/23 Range/Units 18:50 Total Bilirubin 0.3 (0.2-1.0) mg/dl AST 23 (13-39) U/L ALT 17 (7-52) U/L Alkaline Phosphatase 51 (34-104) U/L Albumin 3.0 L (3.4-5.0) gm/dl Diagnostic Findings Chest X-Ray 08/05/23 18:28 XR chest 1V portable HISTORY: 83 years-old Female Dyspnea acute shortness of breath COMPARISON: 07/27/2023 TECHNIQUE: AP view of the chest FINDINGS: Cardiac silhouette is enlarged. Pulmonary vascular congestion. Emphysema with chronic interstitial coarsening. Small pleural effusions with mild bibasilar consolidation. IMPRESSION: 1. Cardiomegaly with pulmonary vascular congestion. 2. Small pleural effusions with bibasilar consolidation. 3. Pulmonary emphysema. ACT 112: Negative or not required by law. The above report was generated using voice recognition software. It may contain grammatical, syntax or spelling errors. Electronically signed by: Stephen aRpp M.D. 08/05/2023 6:43 PM ECG Additional Comments: EKG reviewed, sinus rhythm with first-degree AV block and history of septal infarct, no significant change from previous Code Status & VTE Plan VTE Prophylaxis Plan VTE Prophylaxis will be ordered: Yes Supervising Physician Co-Signing Physician Notes Date of Service: August 05, 2023 Attending addendum: 83-year-old female with significant past medical history of chronic hypoxic respiratory failure secondary to COPD, FRANCIS on 3 L of oxygen, paroxysmal atrial fibrillation on Xarelto, history of diverticulitis and s/p resection of large bowel with colostomy apparently was sent home this morning from prolonged hospital stay. She came back with similar symptoms of increasing shortness of breath with minimal exertion. Denies any chest pain and her palpitation but does have ongoing leg swelling. No fever and or chills. No nausea or vomiting and she was not having any shortness of breath at rest When examined Lying in bed with minimal shortness of breath Chest-decreased breath sound bilaterally with occasional wheezing and basal crac kles Heart-S1-S2, irregular Abdomen-benign Hbleixcerxt-9-3+ edema bilaterally Her labs, imaging studies, EKG and medications reviewed Significant past medical history of COPD and FRANCIS on 3 L and chronic respiratory failure and paroxysmal A-fib with bilateral leg edema complicating the situation Has been having more shortness of breath with minimal exertion Will get a CAT scan of the chest for further evaluation of the chest condition Need to have more diuresis while in the hospital Will get pulmonary evaluation and may be cardiac evaluation Other medical conditions remained stable and management will be continued as before Agree with assessment and plan as outlined above by KENTRELL Joe Dr (5) Anemia Anemia type: unspecified type Qualified Code(s): D64.9 - Anemia, unspecified
--- NOTE | 2023-08-05 18:44 | XRay Report ---
XR chest 1V portable HISTORY: 83 years-old Female Dyspnea acute shortness of breath COMPARISON: 07/27/2023 TECHNIQUE: AP view of the chest FINDINGS: Cardiac silhouette is enlarged. Pulmonary vascular congestion. Emphysema with chronic interstitial co arsening. Small pleural effusions with mild bibasilar consolidation. IMPRESSION: 1. Cardiomegaly with pulmonary vascular congestion. 2. Small pleural effusions with bibasilar consolidation. 3. Pulmonary emphysema. ACT 112: Negative or not required by law. The above report was generated using voice recognition software. It may contain grammatical, syntax o r spelling errors. Electronically signed by: Stephen Rapp M.D. 08/05/2023 6:43 PM
[2023-08-05 18:58] LABS: HCO3 VBG 33 mmol/L; Oxygen Saturation VBG < 60.0 %; PCO2 VBG 54 mmHg (38-50); PO2 VBG 30 mmHg
--- NOTE | 2023-08-05 19:07 | Communication Note ---
Date of Service: August 05, 2023 Attending addendum: 83-year-old female with significant past medical history of chronic hypoxic respiratory failure secondary to COPD, FRANCIS on 3 L of oxygen, paroxysmal atrial fibrillation on Xarelto, history of diverticulitis and s/p resection of large bowel with colostomy apparently was sent home this morning from prolonged hospital stay. She came back with similar symptoms of increasing shortness of breath with minimal exertion. Denies any chest pain and her palpitation but does have ongoing leg swelling. No fever and or chills. No nausea or vomiting and she was not having any shortness of breath at rest When examined Lying in bed with minimal shortness of breath Chest-decreased breath sound bilaterally with occasional wheezing and basal crackles Heart-S1-S2, irregular Abdomen-benign Tjudsqogoke-3-5+ edema bilaterally Her labs, imaging studies, EKG and medications reviewed Significant past medical history of COPD and FRANCIS on 3 L and chronic respiratory failure and paroxysmal A-fib with bilateral leg edema complicating the situation Has been having more shortness of breath with minimal exertion Will get a CAT scan of the chest for further evaluation of the chest condition Need to have more diuresis while in the hospital Will get pulmonary evaluation and may be cardiac evaluation Other medical conditions remained stable and management will be continued as before Agree with assessment and plan as outlined above by KENTRELL Joe Dr
[2023-08-05 19:08] LABS: Basophils # (auto) 0.03 K/uL (0.00-0.20); Basophils % (auto) 0.4 %; Eosinophils # (auto) 0.27 K/uL (0.00-0.50); Eosinophils % (auto) 3.4 %; Hematocrit (blood only) 31.8 % (37.0-47.0); Hemoglobin 9.4 g/dl (12.0-16.0); Immature Granulocytes # (auto) 0.07 K/uL (0.01-0.20); Immature Granulocytes % (auto) 0.9 %; Lymphocytes # (auto) 1.43 K/uL (1.20-3.40); Mean Corpuscular Hemoglobin 27.6 pg (25.0-34.0); Mean Corpuscular Hgb Conc 29.6 g/dL (32.0-36.0); Mean Corpuscular Volume 93.3 fL (80.0-100.0); Monocytes % (auto) 11.3 %; Neutrophils # (auto) 5.25 K/uL (1.40-6.50); Platelet Count 302 K/uL (130-400); RDW Coefficient of Variation 17.4 % (11.5-14.5); RDW Standard Deviation 59.7 fL (36.4-46.3); Red Blood Count 3.41 M/uL (4.20-5.40); White Blood Count 7.95 K/ul (4.8-10.8)
[2023-08-05 19:19] LABS: Albumin Globulin Ratio 0.9 (0.9-2); BUN Creatinine Ratio 18.1 (10-20); Bilirubin,Total 0.3 mg/dl (0.2-1.0); Calcium 8.6 mg/dl (8.6-10.3); Creatinine Clr Calc Pharmacy 32.8 ml/min; Est GFR (African American) 45.8 ml/min; Est GFR (Non-African American) 39.5 ml/min; Globulin 3.3 gm/dl (2.5-4.0); Magnesium 1.7 mg/dl (1.7-2.4); Potassium 3.7 mmol/L (3.5-5.1); Total Protein 6.3 gm/dl (6.0-8.3)
[2023-08-05 19:27] LABS: Troponin I High Sensitivity 16.5 pg/ml (0-14)
[2023-08-05 19:32] LABS: INR 1.1 (0.9-1.1); Partial Thromboplastin Ratio 1.1; Partial Thromboplastin Time 31 Seconds (21-31)
[2023-08-05 20:50] LABS: Appearance Urine Slightly Cloudy (Clear); Bilirubin Urine Negative (Negative); Blood Urine Trace-intact (Negative); Color Urine Yellow; Glucose Urine UA Negative (Negative); Ketones Urine Negative (Negative); Leukocyte Esterase Urine 2+ (Negative); Nitrite Urine Negative (Negative); Protein Urine 1+ (Negative); Urobilinogen Urine Negative (Negative)
[2023-08-05] MEDS ORDERED: ALBUTEROL HFA 8 GM INHALER INH PRN (20:52)
[2023-08-05] MEDS ORDERED: ALBUT/IPRATROP 3MG/0.5MG NEB 3 ML VIAL INH PRN (20:52)
[2023-08-05] MEDS ORDERED: ACETAMINOPHEN 325 MG TAB PO PRN (20:52)
[2023-08-05] MEDS ORDERED: ONDANSETRON INJ 2 MG/ML 2 ML VIAL IV PRN (20:52)
[2023-08-05] MEDS ORDERED: POLYETHYLENE (MIRALAX) 17 GM PACK PO PRN (20:52)
[2023-08-05 21:18] LABS: Bacteria Urine Negative (Negative); Hyaline Casts Urine 0-5 /lpf (0-5); RBC Urine 0-4 /hpf (0-4); WBC Urine >30 /hpf (0-5)
[2023-08-05] MEDS ORDERED: TRIAMCINOLONE ACET 0.1% OINT 15 GM TUBE TOP PRN (21:24)
[2023-08-05] MEDS: RIVAROXABAN 15 MG TAB PO SCH (22:02)
[2023-08-05] MEDS: predniSONE 20 MG TAB PO SCH (22:02)
[2023-08-05] MEDS: SUCRALFATE 1 GM/10 ML UDC PO SCH (22:02)
[2023-08-05] MEDS: CALCIUM 600MG + VIT D 400 IU TAB PO SCH (22:03)
[2023-08-05] MEDS: NITROFURANTOIN MONOHYDRATE 100 MG CAP PO SCH (22:03)
[2023-08-05] MEDS: guaiFENesin 600 MG TABCR PO SCH (22:04)
[2023-08-05] MEDS: POTASSIUM CHLORIDE CRTAB 20 MEQ TABCR PO STA (22:15)
[2023-08-05] MEDS: FUROSEMIDE INJ 20 MG/2 ML VIAL IV ONE (22:15)
[2023-08-05] MEDS: ARTIFICIAL TEARS OP SCH (22:32)
[2023-08-05] MEDS: BUDESONIDE 0.25 MG/2 ML VIAL (PULMICORT) INH SCH (22:55)
[2023-08-06] MEDS: ALBUT/IPRATROP 3MG/0.5MG NEB 3 ML VIAL NEB SCH (06:13)
[2023-08-06 06:59] LABS: Hematocrit (blood only) 27.9 % (37.0-47.0); Hemoglobin 8.4 g/dl (12.0-16.0); Mean Corpuscular Hemoglobin 27.6 pg (25.0-34.0); Mean Corpuscular Hgb Conc 30.1 g/dL (32.0-36.0); Mean Corpuscular Volume 91.8 fL (80.0-100.0); Mean Platelet Volume 9.8 fL (9.4-12.4); Platelet Count 290 K/uL (130-400); RDW Coefficient of Variation 17.3 % (11.5-14.5); RDW Standard Deviation 59.3 fL (36.4-46.3); Red Blood Count 3.04 M/uL (4.20-5.40); White Blood Count 6.95 K/ul (4.8-10.8)
[2023-08-06 07:01] LABS: BUN Creatinine Ratio 16.4 (10-20); Calcium 8.7 mg/dl (8.6-10.3); Creatinine Clr Calc Pharmacy 36.9 ml/min; Est GFR (African American) 54.5 ml/min; Potassium 3.6 mmol/L (3.5-5.1)
[2023-08-06] MEDS: POTASSIUM CHLORIDE CRTAB 20 MEQ TABCR PO STA ×2 (08:05→16:40)
[2023-08-06] MEDS: FUROSEMIDE 40 MG/4 ML VIAL IV STA (08:05)
[2023-08-06] MEDS: OXYBUTYNIN CHLORIDE XL 5 MG TABCR PO SCH (08:07)
[2023-08-06] MEDS: ESCITALOPRAM OXALATE 10 MG TAB PO SCH (08:07)
[2023-08-06] MEDS: ASCORBIC ACID 500 MG TAB PO SCH (08:07)
[2023-08-06] MEDS: UMECLIDINIUM/VILANTEROL 62.5/25MCG 7 PUFFS/INHALER INH SCH (08:07)
[2023-08-06] MEDS: lisinopril 10 MG TAB PO SCH (08:07)
[2023-08-06] MEDS: CEROVITE ADV FORMULA TAB PO SCH (08:08)
[2023-08-06] MEDS: VERAPAMIL HCL 120 MG TABCR PO SCH (08:08)
[2023-08-06] MEDS: FERROUS SULFATE 325 MG TAB PO SCH (08:08)
[2023-08-06] MEDS: PANTOprazole 40 MG TAB PO SCH (08:08)
[2023-08-06] MEDS: ALBUT/IPRATROP 3MG/0.5MG NEB 3 ML VIAL NEB STA (08:11)
--- NOTE | 2023-08-06 08:21 | Hospitalist Progress Note ---
Date of Service August 06, 2023 Assessment & Plan (1) Acute on chronic respiratory failure: (2) COPD (chronic obstructive pulmonary disease): (3) Physical deconditioning: (4) Atrioventricular (AV) dissociation: (5) Anemia: (6) PVD (peripheral vascular disease): (7) PAF (paroxysmal atrial fibrillation): (8) CKD (chronic kidney disease), stage III: (9) HTN (hypertension): (10) HLD (hyperlipidemia): (11) Tobacco dependence due to cigarettes: (12) Colostomy in place: (13) FRANCIS (obstructive sleep apnea): Plan Pt is a 83yoF with PMHx significant for IBD noted on pathology in 2021, history of diverticulitis and resection of large bowel with colostomy, chronic hypoxemic respiratory failure, COPD, FRANCIS on 3L NC, paroxysmal atrial fibrillation on Xarelto, hypertension, CKD 3, depression who presented with melena and generalized weakness over the past 2 months in the setting increased SOB. Was admitted to our service from 07/25 and discharged earlier today for a GI bleed secondary to stomach ulcer seen on endoscopy, A-fib, second to third- degree variable heart block. GI recommends 40 mg daily pantoprazole for the next 3 months and then follow-up EGD, follow-up with gastroenterology in the clinic as well. Radiology recommends discontinuing flecainide and reducing verapamil dose to 120 mg daily. Had lisinopril increased to 10 mg daily. Has COPD with history of chronic respiratory failure on 3 L nasal cannula and follows with [facility] pulmonology. SOB Acute on chronic hypoxic respiratory failure COPD (chronic obstructive pulmonary disease) FRANCIS (obstructive sleep apnea) Returned home and felt more shortness of breath with exertion, anxious about living alone with current health conditions and requesting rehab versus placement In ED saturating 94% on 4 L, attempt to wean down to baseline 3 L. Given baseline COPD, goal O2 around 90% No longer using CPAP at night, does not want a new machine Continue home Budesonide, Anoro inh, Duonebs CXR with evidence of cardiomegaly with pulmonary vascular congestion, CT chest wo contrast pending Giving 20mg IV lasix, monitor diuresis Procal negative / This AM pt w/ increased O2 requirements, currently on 9L. stat cxr ordered, CT chest ordered on admission not done yet, will obtain now. abg. Lasix and duonebs ordered. Pt has no increased work of breathing and feels well at rest. Follows w/ [facility] pulmonology - consulted for further recommendations Recent GI bleed, acute blood loss anemia Generalized weakness Hgb 6.9 on previous admission (baseline hgb ~14), was transfused 1U PRBC, now with hgb 8.4 Iron level of 13, supplemented with IV Venofer Vit b12 and folate level wnl S/p EGD on 07/26 with GI, appreciate recs -noted gastric ulcers (likely cause of melena), nonobstructing Schatzki ring, small hiatal hernia -biopsy/pathology of gastric ulcer noting only inflamed mucosa -NO NSAIDS, likely cause of gastric ulcers per GI -Continue pantoprazole 40mg daily x 3 months -sucralfate 1gm QID x 10 days -Xarelto resumed -repeat EGD in 3 months - s/p polypectomy - pathology c/w tubular adenoma - follow up w/ PCP and GI Second degree/third degree Heart block On 07/27, pt with episode of dizziness and SOB, and increasing episodes of bradycardia. EKG obtained at that time concerning for second degree heart block, pt with also noted episodes of 3rd degree heart block on telemetry Cardiology was consulted- appreciate recs Verapamil reduced to 120 mg daily, flecainide discontinued PAF (paroxysmal atrial fibrillation) Pt previously in sinus rhythm on admission Verapamil reduced to 120 mg daily, flecainide discontinued Xarelto resumed for anticoagulation Complicated UTI UA on admission suggestive of infection Urine Cx currently grew Enterococcus faecalis Started on Aztreonam (pt with many antibiotic allergies) and narrowed to macrobid -> has 3 more doses to complete course (EOT 2/4 HS) Acute on chronic kidney Disease Cr 1.27 at baseline (Baseline Cr mid 1s) LOPEZ on previous admission but resolved; lisinopril increased to 10mg on discharge. Cont dose and monitor daily BMP HTN (hypertension) BP was elevated on admission lisinopril increased to 10 mg daily. Home Verapamil was restarted on 08/01 at lower dose by cardiology Continue to monitor BP Per cardiology - Would avoid further escalation of AV lynnette blockers. If additional blood pressure control necessary, would first titrate SUE inhibitor, HCTZ may be a secondary option. Would not increase verapamil dose due to history of bradycardia. Tobacco dependence due to cigarettes Still smoking 3-4 cigarettes daily Encourage cessation IBD Diverticulitis Colostomy in place H/o colon resection in 2019 at [facility] in [place] Has colostomy bag in place Mood Continue home lexapro Urinary Urgency Continue oxybutynin DVT Ppx: Xarelto Code status: FULL Dispo: admitted to med/tele Admission and Anticipated Discharge Date Admission Date: August 05, 2023 Subjective Pt seen in follow up of acute on chronic resp. failure Had hx of COPD, on 3L at baseline Just admitted for GI bleed and sinus pauses Reports shortness of breath on exertion, in ED reportedly on 3L at baseline but w/ CXR w/ some pulm. vasc. congestion and received lasix on admission Today however O2 requirement increased to 7-9 L (was briefly on 13L this AM). Currently laying in bed in NAD on supplemental oxygen. RN and respiratory at the bedside. Turned down from 13 L to 9 L. Reports shortness of breath on exertion, and feeling lightheaded when she is walking around. No chest pain. No cough. While at rest she feels well. Repeat chest x-ray now, CT was ordered on admission however not done, will get CT chest done now. ABG. More Lasix and DuoNebs ordered. Pulmonary medicine consulted. Review of Systems Review of Systems: All systems reviewed & are unremarkable except as noted in Subjective Physical Exam Physical Exam: General Appearance: WD/WN, F in NAD, laying in bed , on suppl. O2 Head: normocephalic, atraumatic Eyes: normal inspection, PERRL, conjunctivae normal, anicteric sclerae ENT: external ear and nose normal, oropharynx normal Neck: normal visual inspection Respiratory: normal respiratory effort, No accessory muscle use , diminished breath sounds at left base, no wheezing noted Cardiovascular: regular rate, rhythm, no murmur, normal peripheral pulses, 1+ BLE edema. Vessels: no JVD Chest: normal inspection of chest Abdomen/GI: normal bowel sounds, soft, nontender, no hepatosplenomegaly, + ostomy bag with brown output Extremities/Musculoskeletal: moves extremities Neurologic: PERRL, EOMI, no face palsy, no dysarthria, moves all extremities Psychiatric: A+Ox3, euthymic affect Skin: no rashes, normal color, warm/dry Results & Data Results & Data Vital Signs (Past 12 Hours) Vital Signs Temp Pulse Pulse Resp BP BP Pulse Ox 08/06/23 08:11 80 18 92 08/06/23 07:45 20 90 08/06/23 07:43 36.8 C 73 20 162/65 H 84 L 08/06/23 07:15 62 08/06/23 06:16 85 16 90 08/06/23 06:06 88 L 08/06/23 05:42 90 08/06/23 05:42 79 L 08/06/23 03:22 36.8 C 70 20 170/66 H 89 L 08/06/23 01:21 64 08/05/23 23:13 92 08/05/23 23:04 36.8 C 65 20 151/69 H 95 08/05/23 22:55 71 18 92 08/05/23 21:34 62 08/05/23 21:00 08/05/23 21:00 36.8 C 78 20 176/68 H 91 08/05/23 20:45 70 21 170/70 H 94 O2 Del Method O2 Flow Rate 08/06/23 08:11 High Flow Nasal Cannula 8 08/06/23 07:45 Oxymask 13 08/06/23 07:43 Oxymask 7 08/06/23 07:15 08/06/23 06:16 Oxymask 7 08/06/23 06:06 Oxymask 7 08/06/23 05:42 Oxymask 7 08/06/23 05:42 Nasal Cannula 4 08/06/23 03:22 Nasal Cannula 4 08/06/23 01:21 08/05/23 23:13 Nasal Cannula 3 08/05/23 23:04 Nasal Cannula 4 08/05/23 22:55 Nasal Cannula 4 08/05/23 21:34 08/05/23 21:00 Nasal Cannula 4 08/05/23 21:00 Nasal Cannula 4 08/05/23 20:45 Nasal Cannula 4 Laboratory Results 08/06/23 08/05/23 08/05/23 Range/Units 06:07 20:04 18:50 WBC 6.95 7.95 (4.8-10.8) K/ul RBC 3.04 L 3.41 L (4.20-5.40) M/uL Hgb 8.4 L 9.4 L (12.0-16.0) g/dl Hct 27.9 L 31.8 L (37.0-47.0) % MCV 91.8 93.3 (80.0-100.0) fL MCH 27.6 27.6 (25.0-34.0) pg MCHC 30.1 L 29.6 L (32.0-36.0) g/dL RDW Std Deviation 59.3 H 59.7 H (36.4-46.3) fL RDW Coeff of Lynn 17.3 H 17.4 H (11.5-14.5) % Plt Count 290 302 (130-400) K/uL MPV 9.8 10.0 (9.4-12.4) fL Immature Gran % (Auto) 0.9 % Neut % (Auto) 66.0 % Lymph % (Auto) 18.0 % Greene % (Auto) 11.3 % Eos % (Auto) 3.4 % Baso % (Auto) 0.4 % Neut # (Auto) 5.25 (1.40-6.50) K/uL Lymph # (Auto) 1.43 (1.20-3.40) K/uL Greene # (Auto) 0.90 H (0.11-0.59) K/uL Eos # (Auto) 0.27 (0.00-0.50) K/uL Baso # (Auto) 0.03 (0.00-0.20) K/uL Immature Gran # (Auto) 0.07 (0.01-0.20) K/uL PT 12.0 (9.0-12.0) Seconds INR 1.1 (0.9-1.1) APTT 31 (21-31) Seconds PTT Ratio 1.1 VBG pH 7.40 (7.36-7.41) VBG pCO2 54 H (38-50) mmHg VBG pO2 30 mmHg VBG HCO3 33 mmol/L VBG O2 Saturation < 60.0 % VBG Base Excess 7.0 mEq/L Sodium 144 142 (136-145) mmol/L Potassium 3.6 3.7 (3.5-5.1) mmol/L Chloride 107 105 (98-107) mmol/L Carbon Dioxide 32 30 (21-32) mmol/L Anion Gap 5 7 (3-11) BUN 18 23 (6-23) mg/dl Creatinine 1.10 1.27 H (0.6-1.2) mg/dl Est Cr Clr Drug Dosing 36.9 32.8 ml/min Est GFR ( Amer) 54.5 45.8 ml/min Est GFR (Non-Af Amer) 47.0 39.5 ml/min BUN/Creatinine Ratio 16.4 18.1 (10-20) Glucose 108 H 158 H (70-99(Fasting)) mg/dl Calcium 8.7 8.6 (8.6-10.3) mg/dl Magnesium 1.7 (1.7-2.4) mg/dl Total Bilirubin 0.3 (0.2-1.0) mg/dl AST 23 (13-39) U/L ALT 17 (7-52) U/L Alkaline Phosphatase 51 (34-104) U/L Troponin I High Sens 16.5 H (0-14) pg/ml B-Natriuretic Peptide 416 H (0-100) pg/ml Total Protein 6.3 (6.0-8.3) gm/dl Albumin 3.0 L (3.4-5.0) gm/dl Globulin 3.3 (2.5-4.0) gm/dl Albumin/Globulin Ratio 0.9 (0.9-2) Procalcitonin < 0.05 (0-0.5) ng/ml Urine Color Yellow Urine Appearance Slightly Cloudy (Clear) Urine pH 7.0 (4.5-7.5) Ur Specific [place] 1.020 (1.000-1.030) Urine Protein 1+ H (Negative) Urine Glucose (UA) Negative (Negative) Urine Ketones Negative (Negative) Urine Blood Trace-intact H (Negative) Urine Nitrite Negative (Negative) Urine Bilirubin Negative (Negative) Urine Urobilinogen Negative (Negative) Ur Leukocyte Esterase 2+ H (Negative) Urine RBC 0-4 (0-4) /hpf Urine WBC >30 H (0-5) /hpf Ur Epithelial Cells 5-10 H (0-5) /lpf Urine Bacteria Negative (Negative) Hyaline Casts 0-5 (0-5) /lpf Medications Administered Current Inpatient Medications Acetaminophen (Acetaminophen 325 Mg Tab) 650 mg PO Q4H PRN PRN Reason: Pain or Fever Stop: 09/04/23 20:51 Albuterol (Albuterol Hfa 8 Gm Inhaler) 1 puffs INH QID PRN PRN Reason: Shortness Of Breath Stop: 09/04/23 20:51 Albuterol (Albut/Ipratrop 3mg/0.5mg Neb 3 Ml Vial) 3 ml INH Q4H PRN; Protocol PRN Reason: Wheezing Stop: 09/04/23 20:51 Albuterol (Albut/Ipratrop 3mg/0.5mg Neb 3 Ml Vial) 3 ml NEB QIDR [place]; Protocol Stop: 09/05/23 06:59 Last Admin: 08/06/23 06:13 Dose: 3 ml Artificial Tears (Artificial Tears) 1 drops OP BID [facility] Stop: 09/04/23 21:44 Last Admin: 08/06/23 08:07 Dose: 1 drops Ascorbic Acid (Ascorbic Acid 500 Mg Tab) 500 mg PO QAM [facility] Stop: 09/05/23 08:59 Last Admin: 08/06/23 08:07 Dose: 500 mg Budesonide (Budesonide 0.25 Mg/2 Ml Vial (Pulmicort)) 0.25 mg INH BIDR [facility] Stop: 09/04/23 20:59 Last Admin: 08/06/23 06:16 Dose: 0.25 mg Calcium/Vitamin D (Calcium 600mg + Vit D 400 Iu Tab) 1 tab PO QPM [facility] Stop: 09/04/23 20:59 Last Admin: 08/05/23 22:03 Dose: 1 tab Escitalopram Oxalate (Escitalopram Oxalate 10 Mg Tab) 10 mg PO QAM [facility] Stop: 09/05/23 08:59 Last Admin: 08/06/23 08:07 Dose: 10 mg Ferrous Sulfate (Ferrous Sulfate 325 Mg Tab) [facility] Stop: 09/05/23 08:59 Last Admin: 08/06/23 08:08 Dose: 325 mg Guaifenesin (Guaifenesin 600 Mg Tabcr) 600 mg PO BID [facility] Stop: 09/04/23 20:59 Last Admin: 08/06/23 08:07 Dose: 600 mg Lisinopril (Lisinopril 10 Mg Tab) 10 mg PO QAM [facility] Stop: 09/05/23 08:59 Last Admin: 08/06/23 08:07 Dose: 10 mg Miscellaneous (Mesalamine~Order Awaiting Action) 1 each N/A QS [facility] Stop: 09/05/23 00:00 Last Admin: 08/06/23 07:29 Dose: Not Given Multivitamins/Minerals (Cerovite Adv Formula Tab) 1 tab PO QAM [facility] Stop: 09/05/23 08:59 Last Admin: 08/06/23 08:08 Dose: 1 tab Nitrofurantoin Macrocrystals (Nitrofurantoin Monohydrate 100 Mg Cap) 100 mg PO BID [facility] Stop: 08/06/23 21:01 Last Admin: 08/06/23 08:07 Dose: 100 mg Ondansetron HCl (Ondansetron Inj 2 Mg/Ml 2 Ml Vial) 4 mg IV Q6H PRN PRN Reason: Nausea Stop: 09/04/23 20:51 Oxybutynin Chloride (Oxybutynin Chloride Xl 5 Mg Tabcr) 5 mg PO DAILY [facility] Stop: 09/05/23 08:59 Last Admin: 08/06/23 08:07 Dose: 5 mg Pantoprazole Sodium (Pantoprazole 40 Mg Tab) [facility] Stop: 09/05/23 08:59 Last Admin: 08/06/23 08:08 Dose: 40 mg Polyethylene Glycol (Polyethylene (Miralax) 17 Gm Pack) 17 gm PO DAILY PRN PRN Reason: Constipation Stop: 09/04/23 20:51 Rivaroxaban (Rivaroxaban 15 Mg Tab) 15 mg PO QDD [facility] Stop: 09/05/23 21:29 Sucralfate (Sucralfate 1 Gm/10 Ml Udc) 1 gm PO QID [facility] Stop: 09/04/23 20:59 Last Admin: 08/06/23 08:07 Dose: 1 gm Triamcinolone Acetonide (Triamcinolone Acet 0.1% Oint 15 Gm Tube) 1 appln TOP BID PRN PRN Reason: AFFECTED AREA Stop: 09/04/23 21:23 Umeclidinium/Vilanterol (Umeclidinium/Vilanterol 62.5/25mcg 7 Puffs/Inhaler) 1 puffs INH [facility] Stop: 09/05/23 08:59 Last Admin: 08/06/23 08:07 Dose: 1 puffs Verapamil HCl (Verapamil Hcl 120 Mg Tabcr) 120 mg PO QAM [facility] Stop: 09/05/23 08:59 Last Admin: 08/06/23 08:08 Dose: 120 mg (2) COPD (chronic obstructive pulmonary disease) COPD type: unspecified COPD Qualified Code(s): J44.9 - Chronic obstructive pulmonary disease, unspecified (5) Anemia Anemia type: unspecified type Qualified Code(s): D64.9 - Anemia, unspecified
[2023-08-06 08:33] LABS: Allen Test Pos (Pos); Base Excess ABG 7.2 mEq/L (-9-1.8); HCO3 ABG 31 mmol/L (19-24); Oxygen Saturation ABG 99.5 % (90-95); PCO2 ABG 41 mmHg (35-46); PO2 ABG 143 mmHg (80-95); pH ABG 7.49 (7.35-7.45)
--- NOTE | 2023-08-06 08:42 | Electrocardiogram Report ---
Test Reason : Blood Pressure : / mmHG Vent. 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
[2023-08-06] MEDS ORDERED: FATTY ACIDS PO SCH (09:00)
[2023-08-06] MEDS ORDERED: OMEGA PO SCH (09:00)
--- NOTE | 2023-08-06 09:33 | XRay Report ---
XR chest 1V portable HISTORY: 83 years-old Female worsening hypoxia acute shortness of breath COMPARISON: 08/05/2023 TECHNIQUE: AP view of the chest FINDINGS: Cardiac silhouette is enlarged. Pulmonary vascular congestion with interstitial coarsening. Small to moderate pleural effusions with bibasilar consolidation, mildly improved on the right. Pulmonary emph ysema. No significant change from yesterday's exam. No pneumothorax. Degenerative changes of the shou lders and spine. IMPRESSION: 1. Cardiomegaly with pulmonary edema. 2. Layering pleural effusions with persistent bibasilar consolidation, mildly improved on the right. 3. Emphysema. ACT 112: Negative or not required by law. The above report was generated using voice recognition software. It may contain grammatical, syntax o r spelling errors. Electronically signed by: Stephen Rapp M.D. 08/06/2023 9:31 AM
[2023-08-06] MEDS ORDERED: FUROSEMIDE INJ 20 MG/2 ML VIAL IV SCH (10:00)
--- NOTE | 2023-08-06 10:01 | Pulmonary Consultation ---
Date of Consultation August 06, 2023 Assessment & Plan (1) Chronic respiratory failure with hypoxia: (2) CKD (chronic kidney disease), stage III: (3) Multiple pulmonary nodules: (4) COPD (chronic obstructive pulmonary disease): COPD type: unspecified COPD Qualified Code(s): J44.9 - Chronic obstructive pulmonary disease, unspecified (5) FIGUEROA (dyspnea on exertion): Plan Impression: 83-year-old female with oxygen dependent COPD and recent admission for GI bleed complicated by high degree AV block admitted with a chest x-ray that looks like fluid overload. She is mildly anemic as well. Recommendations: 1. COPD: The patient does not appear to be suffering a COPD exacerbation. Continue Anoro and nebulized budesonide baseline. No indication for steroids or antibiotics. 2. Dyspnea: Suspect fluid overload. Would recommend aggressive diuresis. Given the patient's kidney disease, close attention to renal function as well as electrolytes as indicated. Would not favor long-term use of nitrofurantoin given potential interstitial lung disease. 3. Hypoxemia: Suspect worsened due to fluid overload. Again continue with diuresis. Patient is already improved significantly with oxygen requirements going from 12 L/min down to 5 L/min. Should be able to get her back to her baseline oxygen saturations in short order. 4. Management of the patient's other medical issues is deferred to the primary admitting hospitalist. Thank for the opportunity participating in the care of this patient. Feel free to contact us with questions or concerns. History of Present Illness Attending Physician: Gabriel Macedo MD History of Present Illness Asked by hospitalist to evaluate this patient with known chronic hypoxemic respiratory failure admitted with increasing oxygen requirement and shortness of breath. History is obtained from review electronic medical record as well as interview with the patient. Patient is an 83-year-old female who is established with Dr. Garber in the outpatient setting. She was last seen in January. She has noted to have moder ate obstructive lung disease with an FEV1 of about 70% predicted and a severe decrease in diffusion capacity at 36% predicted. She is on oxygen at 3 L/min chronically. She has multiple pulmonary nodules which are being followed clinically. She is maintained in the outpatient setting on Anoro and nebulized budesonide. She was admitted to the hospital 07/25/23 with anemia weakness and a GI bleed. Her hospital course was complicated by high degree AV block and she was seen by cardiology during the course of that hospitalization. She underwent endoscopy and was eventually dismissed from the hospital 08/05/2023 but returned back to the emergency room shortly thereafter with shortness of breath on exertion and initially required oxygen around 10 to 12 L a minute. A chest x- ray obtained demonstrated pulmonary edema. The patient was given an additional dose of diuretics and is now decreased her oxygen requirement down to 5 L. The patient does not report chest pain or palpitations. She is not coughing or wheezing. No fevers chills or night sweats. Allergies Allergy/AdvReac Type Severity Reaction Status Date / Time amoxicillin Allergy Intermediate Rash Verified 08/05/23 18:59 cephalexin [From Keflex] Allergy Intermediate Rash Verified 08/05/23 18:59 cilostazol [From Pletal] Allergy Intermediate Rash Verified 08/05/23 18:59 ciprofloxacin [From Cipro] Allergy Intermediate Rash Verified 08/05/23 18:59 diltiazem Allergy Intermediate Rash Verified 08/05/23 18:59 felodipine Allergy Intermediate Rash Verified 08/05/23 18:59 meloxicam Allergy Intermediate Rash Verified 08/05/23 18:59 sulfamethoxazole Allergy Intermediate Rash Verified 08/05/23 18:59 [From Bactrim] trimethoprim [From Bactrim] Allergy Intermediate Rash Verified 08/05/23 18:59 Home Medications Medication Instructions Recorded Confirmed Type calcium carbonate 500 mg-vitamin 1 tab PO QPM 03/10/19 08/05/23 History D3 10 mcg (400 unit) tablet (Calcium 500 + D) escitalopram oxalate 10 mg tablet 10 mg PO QAM 03/10/19 08/05/23 History (Lexapro) ferrous sulfate 325 mg (65 mg 325 mg PO QAM 03/10/19 08/05/23 History iron) tablet vit C 250 mg-vit E 90 mg-zinc 40 1 tab PO QAM 03/10/19 08/05/23 History mg-copper 1 [id number] capsule (PreserVision AREDS-2) guaifenesin 600 mg tablet, 600 mg PO BID #60 tabs 07/16/20 08/05/23 Rx extended release 12 hr (Mucinex) ascorbic acid (vitamin C) 500 mg 500 mg PO QAM 12/08/20 08/05/23 History tablet (Vitamin C) cyclosporine 0.05 % eye drops in a 1 drp OPB BID 12/08/20 08/05/23 History dropperette (Restasis) Portable Oxygen #1 ea 03/25/21 01/19/23 Rx rivaroxaban 15 mg tablet (Xarelto) 15 mg PO QPM 11/05/21 08/05/23 History Auto Titrating CPAP #1 ea 02/03/23 02/03/23 Rx CPAP Supplies #1 ea 02/03/23 02/03/23 Rx albuterol sulfate 90 mcg/actuation 1 inh inhalation QID PRN Shortness 02/03/23 08/05/23 Rx aerosol inhaler (ProAir HFA) Of Breath #8.5 grams budesonide 0.25 mg/2 mL suspension 0.25 mg (2 mL) inhalation BID #60 02/03/23 08/05/23 Rx for nebulization mL umeclidinium 62.5 mcg-vilanterol 1 inh inhalation QAM #60 ea 02/03/23 08/05/23 Rx 25 mcg/actuation powdr for inhalation (Anoro Ellipta) mesalamine 1.2 gram tablet,delayed 3.6 g PO QAM 03/14/23 08/05/23 History release acetaminophen 325 mg tablet 325 mg PO Q6H PRN Pain 07/25/23 08/05/23 History (Tylenol) ipratropium 0.5 mg-albuterol 3 mg 3 ml inhalation Q4H PRN Wheezing 07/25/23 08/05/23 History (2.5 mg base)/3 mL nebulization soln omega-3 fatty acids 500 mg capsule 500 mg PO DAILY 07/25/23 08/05/23 History solifenacin 5 mg tablet 5 mg PO QAM 07/25/23 08/05/23 History triamcinolone acetonide 0.05 % 1 applic topical BID PRN AFFECTED 07/25/23 08/05/23 History topical ointment AREA lisinopril 10 mg tablet 10 mg PO QAM #30 tabs 08/05/23 08/05/23 Rx nitrofurantoin 100 mg PO BID 2 days #4 caps 08/05/23 08/05/23 Rx monohydrate/macrocrystals 100 mg capsule pantoprazole 40 mg tablet,delayed 40 mg PO QAM #30 tabs 08/05/23 08/05/23 Rx release sucralfate 100 mg/mL oral 1 g (10 mL) PO QID 2 days #80 mL 08/05/23 08/05/23 Rx suspension verapamil 120 mg tablet,extended 120 mg PO QAM #30 tabs 08/05/23 08/05/23 Rx release (Calan SR) Patient History Medical History Encounter for pre-operative examination FRANCIS (obstructive sleep apnea) Osteoarthritis Chronic back pain Diverticular disease Skin cancer of nose 1970s--unsure which kind, removed in office On anticoagulant therapy xarelto daily On home oxygen therapy 4L N/C PRN PVD (peripheral vascular disease) PAF (paroxysmal atrial fibrillation) on xarelto/flecainide--follows with Dr. Savage Depression Macular degeneration Osteoporosis CKD (chronic kidney disease), stage III HTN (hypertension) HLD (hyperlipidemia) Multiple pulmonary nodules Tobacco dependence due to cigarettes 5 per day Chronic bronchitis COPD (chronic obstructive pulmonary disease) inhaler daily/prn, nebulizer daily/prn; continuous oxygen 3L Colostomy in place Diverticulitis Surgical History History of appendectomy taken out during resection of bowel History of colonoscopy History of tooth extraction History of cataract extraction with lens replacement bilateral History of tonsillectomy History of tubal ligation History of resection of large bowel (~10/2018) perforated bowel d/t diverticulitis History of creation of ostomy 10/2018 Family History Father Pancreatic cancer Mother Stroke Other No family history of adverse response to anesthesia Social History Smoking Status: Current every day smoker Tobacco Type: Cigarettes Age Started Using Tobacco: 22; Cigarettes Per Day: 3; Second Hand Exposure: Yes (hx growing up); Do You Dip or Chew Tobacco: No; Hx Alcohol Use: No Hx Substance Use: No Preferred Language: Turkmen Communication Ability: Effective Flamer After Lasting Required: No Beliefs That Will Affect Care: None marital status: / Current Living Situation: Alone Current Living Situation Comment: Mobile home, [address] Other Information That Helps Us Care for You: No Feels Safe at Home: Yes Assistive Devices: Oxygen - Continuous Review of Systems Review of Systems: All systems reviewed & are unremarkable except as noted in Subjective Physical Exam Constitutional: WD/WN, vitals as above Neck: trachea midline, no thyromegaly Respiratory: normal respiratory effort, lungs clear to auscultation Cardiovascular: RRR, no murmur, no edema Gastrointestinal (Abdomen): normal bowel sounds, soft, nontender, no hepatosplenomegaly Musculoskeletal: Extremities: extremities normal to inspection Skin: no rashes, warm and dry Neurologic: Nonfocal exam Lymphatic: no cervical lymphadenopathy Results & Data Results & Data Vital Signs (Past 12 Hours) Vital Signs Temp Pulse Pulse Resp BP Pulse Ox O2 Del Method 08/06/23 08:11 80 18 92 High Flow Nasal Cannula 08/06/23 07:45 20 90 Oxymask 08/06/23 07:43 36.8 C 73 20 162/65 H 84 L Oxymask 08/06/23 07:15 62 08/06/23 06:16 85 16 90 Oxymask 08/06/23 06:06 88 L Oxymask 08/06/23 05:42 90 Oxymask 08/06/23 05:42 79 L Nasal Cannula 08/06/23 03:22 36.8 C 70 20 170/66 H 89 L Nasal Cannula 08/06/23 01:21 64 08/05/23 23:13 92 Nasal Cannula 08/05/23 23:04 36.8 C 65 20 151/69 H 95 Nasal Cannula 08/05/23 22:55 71 18 92 Nasal Cannula O2 Flow Rate 08/06/23 08:11 8 08/06/23 07:45 13 08/06/23 07:43 7 08/06/23 07:15 08/06/23 06:16 7 08/06/23 06:06 7 08/06/23 05:42 7 08/06/23 05:42 4 08/06/23 03:22 4 08/06/23 01:21 08/05/23 23:13 3 08/05/23 23:04 4 08/05/23 22:55 4 Critical Care Results & Data Vital Signs (Past 12 Hours) Vital Signs Temp Pulse Pulse Resp BP Pulse Ox O2 Del Method 08/06/23 08:11 80 18 92 High Flow Nasal Cannula 08/06/23 07:45 20 90 Oxymask 08/06/23 07:43 36.8 C 73 20 162/65 H 84 L Oxymask 08/06/23 07:15 62 08/06/23 06:16 85 16 90 Oxymask 08/06/23 06:06 88 L Oxymask 08/06/23 05:42 90 Oxymask 08/06/23 05:42 79 L Nasal Cannula 08/06/23 03:22 36.8 C 70 20 170/66 H 89 L Nasal Cannula 08/06/23 01:21 64 08/05/23 23:13 92 Nasal Cannula 08/05/23 23:04 36.8 C 65 20 151/69 H 95 Nasal Cannula 08/05/23 22:55 71 18 92 Nasal Cannula O2 Flow Rate 08/06/23 08:11 8 08/06/23 07:45 13 08/06/23 07:43 7 08/06/23 07:15 08/06/23 06:16 7 08/06/23 06:06 7 08/06/23 05:42 7 08/06/23 05:42 4 08/06/23 03:22 4 08/06/23 01:21 08/05/23 23:13 3 08/05/23 23:04 4 08/05/23 22:55 4 Lab & Micro Results (Past 24 Hours) RBC 3.04 M/uL (4.20-5.40) L 08/06/23 WBC 6.95 K/ul (4.8-10.8) 08/06/23 Hgb 8.4 g/dl (12.0-16.0) L 08/06/23 Hct 27.9 % (37.0-47.0) L 08/06/23 MCV 91.8 fL (80.0-100.0) 08/06/23 MCH 27.6 pg (25.0-34.0) 08/06/23 MCHC 30.1 g/dL (32.0-36.0) L 08/06/23 RDW Standard Deviation 59.3 fL (36.4-46.3) H 08/06/23 RDW Coefficient of Variation 17.3 % (11.5-14.5) H 08/06/23 Plt Count 290 K/uL (130-400) 08/06/23 MPV 9.8 fL (9.4-12.4) 08/06/23 Neutrophils (%) (Auto) 66.0 % 08/05/23 Lymphocytes (%) (Auto) 18.0 % 08/05/23 Monocytes # (Auto) 0.90 K/uL (0.11-0.59) H 08/05/23 Eosinophils # (Auto) 0.27 K/uL (0.00-0.50) 08/05/23 Immature Granulocyte % (Auto) 0.9 % 08/05/23 Neutrophils # (Auto) 5.25 K/uL (1.40-6.50) 08/05/23 Lymphocytes # (Auto) 1.43 K/uL (1.20-3.40) 08/05/23 Monocytes # (Auto) 0.90 K/uL (0.11-0.59) H 08/05/23 Eosinophils # (Auto) 0.27 K/uL (0.00-0.50) 08/05/23 Basophils # (Auto) 0.03 K/uL (0.00-0.20) 08/05/23 Immature Granulocyte # (Auto) 0.07 K/uL (0.01-0.20) 4 Na 144 mmol/L (136-145) 08/06/23 K 3.6 mmol/L (3.5-5.1) 08/06/23 Cl 107 mmol/L (98-107) 08/06/23 CO2 32 mmol/L (21-32) 08/06/23 Anion Gap 5 (3-11) 08/06/23 BUN 18 mg/dl (6-23) 08/06/23 Creatinine 1.10 mg/dl (0.6-1.2) 08/06/23 Estimated GFR ( Amer) 54.5 ml/min 08/06/23 Estimated GFR (Non-Af Amer) 47.0 ml/min 08/06/23 BUN/Creatinine Ratio 16.4 (10-20) 08/06/23 Glu 108 mg/dl (70-99(Fasting)) H 08/06/23 Ca 8.7 mg/dl (8.6-10.3) 08/06/23 Total Bilirubin 0.3 mg/dl (0.2-1.0) 08/05/23 AST 23 U/L (13-39) 08/05/23 ALT 17 U/L (7-52) 08/05/23 Alkaline Phosphatase 51 U/L (34-104) 08/05/23 TP 6.3 gm/dl (6.0-8.3) 08/05/23 Albumin 3.0 gm/dl (3.4-5.0) L 08/05/23 Globulin 3.3 gm/dl (2.5-4.0) 08/05/23 Albumin/Globulin Ratio 0.9 (0.9-2) 08/05/23 Mg 1.7 mg/dl (1.7-2.4) 08/05/23 18:50 Calcium Level 8.7 mg/dl (8.6-10.3) 08/06/23 06:07 Prothromb Time International Ratio 1.1 (0.9-1.1) 08/05/23 18:5 0 Venous Blood pH 7.40 (7.36-7.41) 08/05/23 18:50 Venous Blood Partial Pressure CO2 54 mmHg (38-50) H 08/05/23 18 :50 Venous Blood Partial Pressure O2 30 mmHg 08/05/23 18:50 Venous Blood HCO3 33 mmol/L 08/05/23 18:50 Venous Blood Base Excess 7.0 mEq/L 08/05/23 18:50 Venous Blood Oxygen Saturation < 60.0 % 08/05/23 18:50 Arterial Blood pH 7.49 (7.35-7.45) H 08/06/23 08:27 Arterial Blood Partial Pressure CO2 41 mmHg (35-46) 08/06/23 08 :27 Arterial Blood Partial Pressure O2 143 mmHg (80-95) H 08/06/23 08:27 Arterial Blood HCO3 31 mmol/L (19-24) H 08/06/23 08:27 Arterial Blood Base Excess 7.2 mEq/L (-9-1.8) H 08/06/23 08:27 Arterial Blood Oxygen Saturation 99.5 % (90-95) H 08/06/23 08:2 7 Blood Gas Oxygen Given 7L 08/06/23 08:27 Clemente Test Pos (Pos) 08/06/23 08:27 Diagnostic Findings (Past 24 Hours) Chest X-Ray 08/05/23 18:28 XR chest 1V portable HISTORY: 83 years-old Female Dyspnea acute shortness of breath COMPARISON: 07/27/2023 TECHNIQUE: AP view of the chest FINDINGS: Cardiac silhouette is enlarged. Pulmonary vascular congestion. Emphysema with chronic interstitial coarsening. Small pleural effusions with mild bibasilar consolidation. IMPRESSION: 1. Cardiomegaly with pulmonary vascular congestion. 2. Small pleural effusions with bibasilar consolidation. 3. Pulmonary emphysema. ACT 112: Negative or not required by law. The above report was generated using voice recognition software. It may contain grammatical, syntax or spelling errors. Electronically signed by: Stephen Rapp M.D. 08/05/2023 6:43 PM Chest X-Ray 08/06/23 07:51 XR chest 1V portable HISTORY: 83 years-old Female worsening hypoxia acute shortness of breath COMPARISON: 08/05/2023 TECHNIQUE: AP view of the chest FINDINGS: Cardiac silhouette is enlarged. Pulmonary vascular congestion with interstitial coarsening. Small to moderate pleural effusions with bibasilar consolidation, mildly improved on the right. Pulmonary emphysema. No significant change from yesterday's exam. No pneumothorax. Degenerative changes of the shoulders and spine. IMPRESSION: 1. Cardiomegaly with pulmonary edema. 2. Layering pleural effusions with persistent bibasilar consolidation, mildly improved on the right. 3. Emphysema. ACT 112: Negative or not required by law. The above report was generated using voice recognition software. It may contain grammatical, syntax or spelling errors. Electronically signed by: Stephen Rapp M.D. 08/06/2023 9:31 AM I & O Totals 24 Hours 08/05/23 08/06/23 08/07/23 06:59 06:59 06:59 Output Total 1000 / 1000 Balance -1000 / -1000 Cumulative 08/05/23 18:11 thru 08/06/23 06:00 Output Total 1000 Balance -1000 RT Ventilator Mngmt (Last Documented) Ventilator Ordered Settings Respiratory Rate 18 08/06/23 08:11 Ventilator - PT Measurements Respiratory Rate 18 PG Care Time/CCT Total # of Minutes Spent Total Time Spent with Patient: Total time spent is greater than 50% in coordination of care (as documented) at patient's floor/unit and/or counseling patient: Coding Level of Care Code 14252 INT INP/OBS CARE 2MIN Diagnoses Chronic respiratory failure with hypoxia J96.11 CKD (chronic kidney disease), stage III N18.30 Multiple pulmonary nodules R91.8 COPD (chronic obstructive pulmonary disease) J44.9 COPD type: unspecified COPD FIGUEROA (dyspnea on exertion) R06.00
--- NOTE | 2023-08-06 10:23 | CT Scan Report ---
CT chest diagnostic wo con CT DOSE: 720.75 mGy.cm CLINICAL HISTORY: 83 years-old Female with acute on chronic resp. failure. Acute on chronic respirat ory failure. TECHNIQUE: Multiaxial CT images of the chest were performed without contrast. A dose lowering techni que was utilized adhering to the principles of ALARA. COMPARISON: Chest radiograph of same day, chest CT 10/04/2022. FINDINGS: Unremarkable thyroid. Mild mediastinal lymphadenopathy. A precarinal lymph node on image 10 0 measures 1.1 x 1.7 cm, mildly increased in size from prior. These lymph nodes are likely reactive. Mild cardiomegaly. Trace pericardial effusion. Extensive coronary artery calcifications. Atherosclero sis of the aorta. Mild dilation of the pulmonary artery suggestive of pulmonary arterial hypertension . [id number] right with small left pleural effusions. No pneumothorax. Intralobular septal thick ening. Moderate pulmonary emphysema with bronchial wall thickening. Mild deep and right basilar atele ctasis. Left lower lobe mucous plugging with consolidation and volume loss throughout the basal segme nts of the left lower lobe. No suspicious pulmonary nodules or masses. Four mm fissural nodule of the left upper lung on image 29 is unchanged suggestive of a benign lymph node. Mild left-sided hydroureteronephrosis with bilateral perinephric and periureteral stranding. Cortical thinning of the kidneys with bilateral renal vascular calcifications. There is a nonobstructing 1.4 cm calculus of the interpolar left kidney. Mild nonspecific distal esophageal wall thickening. Debris is noted within the [id number] esophageal lumen. Degenerative changes of the shoulders and spine. Unchanged appearance of the chronic thoracolumbar compression deformities. Sigmoidal thoracolumbar s coliosis. IMPRESSION: 1. Cardiomegaly with pulmonary edema, trace pericardial, small left and [id number] right pleur al effusions. 2. Left lower lobe mucous plugging with associated volume loss and consolidation, which may represent atelectasis versus pneumonia. 3. Debris is noted within the esophagus. Correlate clinically to exclude gastroesophageal reflux. 4. Pulmonary emphysema. 5. Left nephrolithiasis with partially imaged hydroureteronephrosis. Findings could be correlated wit h follow-up KUB and urinalysis to exclude an obstructing ureteral calculus. ACT 112: Negative or not required by law. Dictated: 08/06/2023 9:38 AM Transcribed: 08/06/2023 10:01 AM Indra [id number] [email or web address] Electronically signed by: Stephen Rapp M.D. 08/06/2023 10:22 AM
[2023-08-06] MEDS: FUROSEMIDE INJ 20 MG/2 ML VIAL IV ONE (13:38)
[2023-08-06] MEDS: FUROSEMIDE INJ 20 MG/2 ML VIAL IV SCH (16:40)
[2023-08-06] MEDS ORDERED: FUROSEMIDE 40 MG/4 ML VIAL IV SCH ×2 (17:00)
[2023-08-06] MEDS ORDERED: FUROSEMIDE 40 MG/4 ML VIAL IV ONE (17:00)
[2023-08-06] MEDS: RIVAROXABAN 15 MG TAB PO SCH (20:55)
[2023-08-07 06:33] LABS: Hematocrit (blood only) 28.3 % (37.0-47.0); Hemoglobin 8.8 g/dl (12.0-16.0); Mean Corpuscular Hemoglobin 28.6 pg (25.0-34.0); Mean Corpuscular Hgb Conc 31.1 g/dL (32.0-36.0); Mean Corpuscular Volume 91.9 fL (80.0-100.0); Platelet Count 316 K/uL (130-400); RDW Coefficient of Variation 17.6 % (11.5-14.5); RDW Standard Deviation 59.5 fL (36.4-46.3); Red Blood Count 3.08 M/uL (4.20-5.40); White Blood Count 8.77 K/ul (4.8-10.8)
[2023-08-07 07:12] LABS: Calcium 9.2 mg/dl (8.6-10.3); Creatinine Clr Calc Pharmacy 22.8 ml/min; Est GFR (Non-African American) 27.6 ml/min; Magnesium 1.9 mg/dl (1.7-2.4); Phosphorus 3.4 mg/dl (2.5-4.9); Potassium 4.3 mmol/L (3.5-5.1)
[2023-08-07] MEDS: FUROSEMIDE INJ 20 MG/2 ML VIAL IV SCH (08:57)
--- NOTE | 2023-08-07 09:09 | Pulmonology Progress Note ---
Date of Service August 07, 2023 Assessment & Plan (1) Chronic respiratory failure with hypoxia: (2) CKD (chronic kidney disease), stage III: (3) Multiple pulmonary nodules: (4) COPD (chronic obstructive pulmonary disease): COPD type: unspecified COPD Qualified Code(s): J44.9 - Chronic obstructive pulmonary disease, unspecified (5) FIGUEROA (dyspnea on exertion): Plan Impression: 83-year-old female with oxygen dependent COPD and recent admission for GI bleed complicated by high degree AV block admitted with a chest x-ray that looks like fluid overload. She is mildly anemic as well. Recommendations: 1. COPD: The patient does not appear to be suffering a COPD exacerbation. Continue Anoro and nebulized budesonide baseline. No indication for steroids or antibiotics. 2. Dyspnea: Multifactorial due to atelectasis, deconditioning, obesity and CHF. Repeat chest x-ray today to ensure no new pathology. CT chest completed 08/06/2023 did reveal pulmonary edema, bilateral effusions and left lower lobe mucous plugging with associated volume loss. Will repeat a Pro-Tyrell today. If Pro-Tyrell elevated, will start antibiotics. Will also start the patient on percussive vest therapy 4 times daily hypertonic saline to help clear secretions. Check MRSA screen. 3. Hypoxemia: Secondary to obesity, COPD, acute heart failure and possible pneumonia. EF 07/28/2023 was 65 to 70%. Grade 1 diastolic dysfunction noted. BNP elevated to 416 this admission. Creatinine is worsening. Would recommend holding diuretics at this time. Thank for the opportunity participating in the care of this patient. Feel free to contact us with questions or concerns. Admission and Anticipated Discharge Date Admission Date: August 05, 2023 Subjective Patient is requiring 5 L of oxygen and saturating in the low 90s. She feels that her shortness of breath is worse today compared to yesterday. She is coughing and producing phlegm. She denies any fevers, chills or night sweats. She denies any chest pain. Review of Systems Review of Systems: All systems reviewed & are unremarkable except as noted in HPI & below Physical Exam Constitutional: WD/WN, vitals as above Neck: trachea midline, no thyromegaly Respiratory: Diminished bibasilar lung sounds. No wheeze. Prolonged phase of exhalation. Cardiovascular: RRR, no murmur, no edema Gastrointestinal (Abdomen): normal bowel sounds, soft, nontender, no hepatosplenomegaly Musculoskeletal: Extremities: extremities normal to inspection Skin: no rashes, warm and dry Neurologic: Nonfocal exam Lymphatic: no cervical lymphadenopathy Results & Data Results & Data Vital Signs (Past 12 Hours) Vital Signs Temp Pulse Pulse Resp BP Pulse Ox O2 Del Method 08/07/23 07:44 61 08/07/23 07:32 36.9 C 66 16 167/64 H 90 Nasal Cannula 08/07/23 07:15 36.9 C 79 20 161/72 H 94 Nasal Cannula 08/07/23 06:58 82 16 97 Nasal Cannula 08/07/23 03:08 36.9 C 72 18 178/71 H 90 Nasal Cannula 08/06/23 22:55 36.7 C 72 18 150/66 H 90 Nasal Cannula O2 Flow Rate 08/07/23 07:44 08/07/23 07:32 5 08/07/23 07:15 5 08/07/23 06:58 5 08/07/23 03:08 5 08/06/23 22:55 5 PG Care Time/CCT Total # of Minutes Spent Total Time Spent with Patient: Total time spent is greater than 50% in coordination of care (as documented) at patient's floor/unit and/or counseling patient: Coding Level of Care Code 48464 SUB INP/OBS CARE 235MIN Diagnoses Chronic respiratory failure with hypoxia J96.11 CKD (chronic kidney disease), stage III N18.30 Multiple pulmonary nodules R91.8 COPD (chronic obstructive pulmonary disease) J44.9 COPD type: unspecified COPD FIGUEROA (dyspnea on exertion) R06.00
--- NOTE | 2023-08-07 09:11 | Hospitalist Progress Note ---
Date of Service August 07, 2023 Assessment & Plan (1) Acute on chronic respiratory failure: (2) COPD (chronic obstructive pulmonary disease): (3) Physical deconditioning: (4) Atrioventricular (AV) dissociation: (5) Anemia: (6) PVD (peripheral vascular disease): (7) PAF (paroxysmal atrial fibrillation): (8) CKD (chronic kidney disease), stage III: (9) HTN (hypertension): (10) HLD (hyperlipidemia): (11) Tobacco dependence due to cigarettes: (12) Colostomy in place: (13) FRANCIS (obstructive sleep apnea): Plan Pt is a 83yoF with PMHx significant for IBD noted on pathology in 2021, history of diverticulitis and resection of large bowel with colostomy, chronic hypoxemic respiratory failure, COPD, FRANCIS on 3L NC, paroxysmal atrial fibrillation on Xarelto, hypertension, CKD 3, depression who presented with melena and generalized weakness over the past 2 months in the setting increased SOB. Was admitted to our service from 07/25 and discharged earlier today for a GI bleed secondary to stomach ulcer seen on endoscopy, A-fib, second to third- degree variable heart block. GI recommends 40 mg daily pantoprazole for the next 3 months and then follow-up EGD, follow-up with gastroenterology in the clinic as well. Radiology recommends discontinuing flecainide and reducing verapamil dose to 120 mg daily. Had lisinopril increased to 10 mg daily. Has COPD with history of chronic respiratory failure on 3 L nasal cannula and follows with [facility] pulmonology. SOB Acute on chronic hypoxic respiratory failure COPD (chronic obstructive pulmonary disease) FRANCIS (obstructive sleep apnea) Returned home and felt more shortness of breath with exertion, anxious about living alone with current health conditions and requesting rehab versus placement In ED saturating 94% on 4 L, attempt to wean down to baseline 3 L. Given baseline COPD, goal O2 around 90% No longer using CPAP at night, does not want a new machine Continue home Budesonide, Anoro inh, Duonebs CXR with evidence of cardiomegaly with pulmonary vascular congestion, CT chest wo contrast pending Giving 20mg IV lasix, monitor diuresis Procal negative 2/4 This AM pt w/ increased O2 requirements, currently on 9L. stat cxr ordered, CT chest ordered on admission not done yet, will obtain now. abg. Lasix and duonebs ordered. Pt has no increased work of breathing and feels well at rest. Follows w/ [facility] pulmonology - consulted for further recommendations- recommended iv lasix Family also updated over the phone 2 Pt on 5L of suppl. O2, reports worse shortness of breath but no pain. Repeat CXR, procal, percussive vest, hypertonic saline, MRSA screen if procal posit. would start abx Pulmonary medicine consulted and discussed with Acute on chronic kidney Disease Cr 1.27 at baseline (Baseline Cr mid 1s) LOPEZ on previous admission but resolved; lisinopril increased to 10mg on discharge. Cont dose and monitor daily BMP - pt diuresed w/ IV lasix d/t pulm. vasc. congestion -> Cr 1.7 on 08/07 hold lasix and lisinopril for now repeat BMP today and cont. to monitor AM Recent GI bleed, acute blood loss anemia Generalized weakness Hgb 6.9 on previous admission (baseline hgb ~14), was transfused 1U PRBC, now wi th hgb 8.4 Iron level of 13, supplemented with IV Venofer Vit b12 and folate level wnl S/p EGD on 07/26 with GI, appreciate recs -noted gastric ulcers (likely cause of melena), nonobstructing Schatzki ring, small hiatal hernia -biopsy/pathology of gastric ulcer noting only inflamed mucosa -NO NSAIDS, likely cause of gastric ulcers per GI -Continue pantoprazole 40mg daily x 3 months -sucralfate 1gm QID x 10 days -Xarelto resumed -repeat EGD in 3 months - s/p polypectomy - pathology c/w tubular adenoma - follow up w/ PCP and GI Second degree/third degree Heart block On 07/27, pt with episode of dizziness and SOB, and increasing episodes of bradycardia. EKG obtained at that time concerning for second degree heart block, pt with also noted episodes of 3rd degree heart block on telemetry Cardiology was consulted- appreciate recs Verapamil reduced to 120 mg daily, flecainide discontinued PAF (paroxysmal atrial fibrillation) Pt previously in sinus rhythm on admission Verapamil reduced to 120 mg daily, flecainide discontinued Xarelto resumed for anticoagulation Complicated UTI UA on admission suggestive of infection Urine Cx currently grew Enterococcus faecalis Started on Aztreonam (pt with many antibiotic allergies) and narrowed to macrobid - finished treatment HTN (hypertension) BP was elevated on admission lisinopril increased to 10 mg daily. (hold now d/t Lopez) Home Verapamil was restarted on 08/01 at lower dose by cardiology Continue to monitor BP Per cardiology - Would avoid further escalation of AV lynnette blockers. If additional blood pressure control necessary, would first titrate SUE inhibitor, HCTZ may be a secondary option. Would not increase verapamil dose due to history of bradycardia. Tobacco dependence due to cigarettes Still smoking 3-4 cigarettes daily Encourage cessation IBD Diverticulitis Colostomy in place H/o colon resection in 2019 at [facility] in [place] Has colostomy bag in place Mood Continue home lexapro Urinary Urgency Continue oxybutynin DVT Ppx: Xarelto Code status: FULL Dispo: admitted to med/tele Admission and Anticipated Discharge Date Admission Date: August 05, 2023 Subjective Pt seen in follow up of acute on chronic resp. failure Has hx of COPD, on 3L at baseline Just admitted for GI bleed and sinus pauses Reports shortness of breath on exertion, in ED reportedly on 3L at baseline but w/ CXR w/ some pulm. vasc. congestion and received lasix on admission Yesterday however O2 requirement increased to 7-9 L (was briefly on 13L). Repeat CXR, CT chest, lasix, duonebs given and discussed w/ pulmonary. Currently sitting up in bed in NAD on supplemental oxygen., texting on her phone. Says breathing feels worse than yesterday. Denies any pain - no chest pain or abdominal pain. says she has only dry cough now. Discussed with pulmonary - repeating chest x-ray today, procalcitonin, add percussive vest therapy and hypertonic saline, obtain MRSA screen. Because her creatinine is elevated today will hold furosemide for now. Review of Systems Review of Systems: All systems reviewed & are unremarkable except as noted in Subjective Physical Exam Physical Exam: General Appearance: WD/WN, F in NAD, laying in bed , on suppl. O2 Head: normocephalic, atraumatic Eyes: normal inspection, PERRL, conjunctivae normal, anicteric sclerae ENT: external ear and nose normal, oropharynx normal Neck: normal visual inspection Respiratory: normal respiratory effort, No accessory muscle use , course breath sounds and crackles, jannette. at left base Cardiovascular: regular rate, rhythm, no murmur, normal peripheral pulses, 1+ BLE edema. Vessels: no JVD Chest: normal inspection of chest Abdomen/GI: normal bowel sounds, soft, nontender, + ostomy bag with brown output Extremities/Musculoskeletal: moves extremities Neurologic: PERRL, EOMI, no face palsy, no dysarthria, moves all extremities Psychiatric: A+Ox3, euthymic affect Skin: no rashes, normal color, warm/dry Results & Data Results & Data Vital Signs (Past 12 Hours) Vital Signs Temp Pulse Pulse Resp BP Pulse Ox O2 Del Method 08/07/23 07:44 61 08/07/23 07:32 36.9 C 66 16 167/64 H 90 Nasal Cannula 08/07/23 07:15 36.9 C 79 20 161/72 H 94 Nasal Cannula 08/07/23 06:58 82 16 97 Nasal Cannula 08/07/23 03:08 36.9 C 72 18 178/71 H 90 Nasal Cannula 08/06/23 22:55 36.7 C 72 18 150/66 H 90 Nasal Cannula O2 Flow Rate 08/07/23 07:44 08/07/23 07:32 5 08/07/23 07:15 5 08/07/23 06:58 5 08/07/23 03:08 5 08/06/23 22:55 5 Laboratory Results 08/07/23 Range/Units 05:38 WBC 8.77 (4.8-10.8) K/ul RBC 3.08 L (4.20-5.40) M/uL Hgb 8.8 L (12.0-16.0) g/dl Hct 28.3 L (37.0-47.0) % MCV 91.9 (80.0-100.0) fL MCH 28.6 (25.0-34.0) pg MCHC 31.1 L (32.0-36.0) g/dL RDW Std Deviation 59.5 H (36.4-46.3) fL RDW Coeff of Lynn 17.6 H (11.5-14.5) % Plt Count 316 (130-400) K/uL MPV 10.0 (9.4-12.4) fL Sodium 143 (136-145) mmol/L Potassium 4.3 (3.5-5.1) mmol/L Chloride 107 (98-107) mmol/L Carbon Dioxide 32 (21-32) mmol/L Anion Gap 4 (3-11) BUN 24 H (6-23) mg/dl Creatinine 1.71 H D (0.6-1.2) mg/dl Est Cr Clr Drug Dosing 22.8 ml/min Est GFR ( Amer) 32.0 ml/min Est GFR (Non-Af Amer) 27.6 ml/min BUN/Creatinine Ratio 14.0 (10-20) Glucose 111 H (70-99(Fasting)) mg/dl Calcium 9.2 (8.6-10.3) mg/dl Phosphorus 3.4 (2.5-4.9) mg/dl Magnesium 1.9 (1.7-2.4) mg/dl Medications Administered Current Inpatient Medications Acetaminophen (Acetaminophen 325 Mg Tab) 650 mg PO Q4H PRN PRN Reason: Pain or Fever Stop: 09/04/23 20:51 Albuterol (Albuterol Hfa 8 Gm Inhaler) 1 puffs INH QID PRN PRN Reason: Shortness Of Breath Stop: 09/04/23 20:51 Albuterol (Albut/Ipratrop 3mg/0.5mg Neb 3 Ml Vial) 3 ml INH Q4H PRN; Protocol PRN Reason: Wheezing Stop: 09/04/23 20:51 Artificial Tears (Artificial Tears) 1 drops OP BID [facility] Stop: 09/04/23 21:44 Last Admin: 08/07/23 08:58 Dose: 1 drops Ascorbic Acid (Ascorbic Acid 500 Mg Tab) 500 mg PO QAM [place] Stop: 09/05/23 08:59 Last Admin: 08/07/23 08:56 Dose: 500 mg Budesonide (Budesonide 0.25 Mg/2 Ml Vial (Pulmicort)) 0.25 mg INH BIDR [facility] Stop: 09/04/23 20:59 Last Admin: 08/07/23 06:58 Dose: 0.25 mg Calcium/Vitamin D (Calcium 600mg + Vit D 400 Iu Tab) 1 tab PO QPM [place] Stop: 09/04/23 20:59 Last Admin: 08/06/23 20:19 Dose: 1 tab Escitalopram Oxalate (Escitalopram Oxalate 10 Mg Tab) 10 mg PO QAM [facility] Stop: 09/05/23 08:59 Last Admin: 08/07/23 08:56 Dose: 10 mg Ferrous Sulfate (Ferrous Sulfate 325 Mg Tab) [facility] Stop: 09/05/23 08:59 Last Admin: 08/07/23 08:58 Dose: 325 mg Furosemide (Furosemide Inj 20 Mg/2 Ml Vial) 40 mg IV [id number] [facility] Stop: 09/06/23 08:59 Last Admin: 08/07/23 08:57 Dose: 40 mg Guaifenesin (Guaifenesin 600 Mg Tabcr) 600 mg PO BID [facility] Stop: 09/04/23 20:59 Last Admin: 08/07/23 08:56 Dose: 600 mg Lisinopril (Lisinopril 10 Mg Tab) [facility] Stop: 09/05/23 08:59 Last Admin: 08/06/23 08:07 Dose: 10 mg Miscellaneous (Mesalamine~Order Awaiting Action) 1 each N/A QS [facility] Stop: 09/05/23 00:00 Last Admin: 08/07/23 08:02 Dose: Not Given Multivitamins/Minerals (Cerovite Adv Formula Tab) 1 tab PO [facility] Stop: 09/05/23 08:59 Last Admin: 08/07/23 08:58 Dose: 1 tab Ondansetron HCl (Ondansetron Inj 2 Mg/Ml 2 Ml Vial) 4 mg IV Q6H PRN PRN Reason: Nausea Stop: 09/04/23 20:51 Oxybutynin Chloride (Oxybutynin Chloride Xl 5 Mg Tabcr) 5 mg PO DAILY [facility] Stop: 09/05/23 08:59 Last Admin: 08/07/23 08:58 Dose: 5 mg Pantoprazole Sodium (Pantoprazole 40 Mg Tab) [facility] Stop: 09/05/23 08:59 Last Admin: 08/07/23 08:58 Dose: 40 mg Polyethylene Glycol (Polyethylene (Miralax) 17 Gm Pack) 17 gm PO DAILY PRN PRN Reason: Constipation Stop: 09/04/23 20:51 Rivaroxaban (Rivaroxaban 15 Mg Tab) 15 mg PO QDD [facility] Stop: 09/05/23 21:29 Last Admin: 08/06/23 20:55 Dose: 15 mg Sodium Chloride (Sodium Chlor 7% 4 Ml Neb) 4 ml NEB BIDR [facility] Stop: 09/06/23 18:59 Sucralfate (Sucralfate 1 Gm/10 Ml Udc) 1 gm PO QID [facility] Stop: 09/04/23 20:59 Last Admin: 08/07/23 08:55 Dose: 1 gm Triamcinolone Acetonide (Triamcinolone Acet 0.1% Oint 15 Gm Tube) 1 appln TOP BID PRN PRN Reason: AFFECTED AREA Stop: 09/04/23 21:23 Umeclidinium/Vilanterol (Umeclidinium/Vilanterol 62.5/25mcg 7 Puffs/Inhaler) 1 puffs INH QAM [facility] Stop: 09/05/23 08:59 Last Admin: 08/07/23 08:59 Dose: 1 puffs Verapamil HCl (Verapamil Hcl 120 Mg Tabcr) 120 mg PO QAM [facility] Stop: 09/05/23 08:59 Last Admin: 08/07/23 08:55 Dose: 120 mg (2) COPD (chronic obstructive pulmonary disease) COPD type: unspecified COPD Qualified Code(s): J44.9 - Chronic obstructive pulmonary disease, unspecified (5) Anemia Anemia type: unspecified type Qualified Code(s): D64.9 - Anemia, unspecified
--- NOTE | 2023-08-07 10:09 | XRay Report ---
XR chest 1V not portable HISTORY: worsening shortness of breath COMPARISON: Chest 08/06/2023. FINDINGS: No pneumothorax. The heart remains mildly enlarged. There are calcifications within the aor tic knob. No acute fractures identified. Mild congestive change and bilateral pleural effusions, left greater than right, persist. There are patchy bibasilar densities again noted. IMPRESSION: 1. No change in the mild congestive change and bilateral pleural effusions. 2. Patchy bibasilar densities persist and may represent atelectasis or pneumonia. ACT 112: Negative or not required by law. Electronically signed by: Demetri Workman M.D. 08/07/2023 10:08 AM
--- NOTE | 2023-08-07 10:16 | XRay Report ---
KUB HISTORY: Abnormal chest CT. Left-sided hydroureteronephrosis. r/o obstructing calculus COMPARISON: Chest CT 08/06/2023. Abdomen and pelvis CT 08/22/2020. FINDINGS: The bowel gas pattern is unremarkable. There are no dilated loops of small bowel to suggest an obstruction. There is a 13 mm stone within the left kidney. Multiple additional calcifications w ithin the renal shadows may represent a combination of renal stones or vascular calcifications. No ur eteral calculi identified. Of note, the left-sided hydronephrosis seen on the recent chest CT is geena lar to the 08/22/[address] Levoscoliosis of the lumbar spine. Vascular calcificatio n noted within the pelvis. No pneumoperitoneum or pneumatosis. IMPRESSION: 1. Multiple calcifications overlying the renal shadows. This likely represents a combination of renal stones and vascular calcifications. A dominant left renal stone measures 13 mm. 2. No ureteral calculi identified. Of note, the left-sided hydronephrosis seen on the recent chest CT is similar to the 08/22/[address] ACT 112: Negative or not required by law. Electronically signed by: Demetri Workman M.D. 08/07/2023 10:14 AM
[2023-08-07 14:02] LABS: BUN Creatinine Ratio 15.5 (10-20); Calcium 9.7 mg/dl (8.6-10.3); Creatinine Clr Calc Pharmacy 25.2 ml/min; Est GFR (Non-African American) 31.1 ml/min; Potassium 4.2 mmol/L (3.5-5.1)
[2023-08-07] MEDS: FUROSEMIDE INJ 20 MG/2 ML VIAL IV ONE (18:06)
[2023-08-07] MEDS: SODIUM CHLOR 7% 4 ML NEB NEB SCH (18:56)
[2023-08-08 06:34] LABS: Hematocrit (blood only) 29.4 % (37.0-47.0); Hemoglobin 8.7 g/dl (12.0-16.0); Mean Corpuscular Hemoglobin 27.6 pg (25.0-34.0); Mean Corpuscular Hgb Conc 29.6 g/dL (32.0-36.0); Mean Corpuscular Volume 93.3 fL (80.0-100.0); Mean Platelet Volume 9.9 fL (9.4-12.4); Platelet Count 328 K/uL (130-400); RDW Coefficient of Variation 17.6 % (11.5-14.5); RDW Standard Deviation 59.7 fL (36.4-46.3); Red Blood Count 3.15 M/uL (4.20-5.40); White Blood Count 8.27 K/ul (4.8-10.8)
[2023-08-08 06:36] LABS: BUN Creatinine Ratio 15.9 (10-20); Calcium 9.2 mg/dl (8.6-10.3); Creatinine Clr Calc Pharmacy 21.5 ml/min; Est GFR (African American) 29.7 ml/min; Est GFR (Non-African American) 25.6 ml/min; Phosphorus 3.7 mg/dl (2.5-4.9)
--- NOTE | 2023-08-08 09:32 | Hospitalist Progress Note ---
Date of Service August 08, 2023 Assessment & Plan (1) Acute on chronic respiratory failure: (2) COPD (chronic obstructive pulmonary disease): (3) Physical deconditioning: (4) Atrioventricular (AV) dissociation: (5) Anemia: (6) PVD (peripheral vascular disease): (7) PAF (paroxysmal atrial fibrillation): (8) CKD (chronic kidney disease), stage III: (9) HTN (hypertension): (10) HLD (hyperlipidemia): (11) Tobacco dependence due to cigarettes: (12) Colostomy in place: (13) FRANCIS (obstructive sleep apnea): Plan Pt is a 83yoF with PMHx significant for IBD noted on pathology in 2021, history of diverticulitis and resection of large bowel with colostomy, chronic hypoxemic respiratory failure, COPD, FRANCIS on 3L NC, paroxysmal atrial fibrillation on Xarelto, hypertension, CKD 3, depression who presented with melena and generalized weakness over the past 2 months in the setting increased SOB. Was admitted to our service from 07/25 and discharged earlier today for a GI bleed secondary to stomach ulcer seen on endoscopy, A-fib, second to third- degree variable heart block. GI recommends 40 mg daily pantoprazole for the next 3 months and then follow-up EGD, follow-up with gastroenterology in the clinic as well. Radiology recommends discontinuing flecainide and reducing verapamil dose to 120 mg daily. Had lisinopril increased to 10 mg daily. Has COPD with history of chronic respiratory failure on 3 L nasal cannula and [place] [facility] [place]. SOB Acute on chronic hypoxic respiratory failure COPD (chronic obstructive pulmonary disease) FRANCIS (obstructive sleep apnea) Returned home and felt more shortness of breath with exertion, anxious about living alone with current health conditions and requesting rehab versus placement In ED saturating 94% on 4 L, attempt to wean down to baseline 3 L. Given baseline COPD, goal O2 around 90% No longer using CPAP at night, does not want a new machine Continue home Budesonide, Anoro inh, Duonebs CXR with evidence of cardiomegaly with pulmonary vascular congestion, CT chest wo contrast pending Giving 20mg IV lasix, monitor diuresis Procal negative CT chest - 1. Cardiomegaly with pulmonary edema, trace pericardial, small left and [id number] right pleural effusions. 2. Left lower lobe mucous plugging with associated volume loss and consolidation, which may represent atelectasis versus pneumonia. 3. Debris is noted within the esophagus. Correlate clinically to exclude gastroesophageal reflux. 4. Pulmonary emphysema. 5. Left nephrolithiasis with partially imaged hydroureteronephrosis. Findings could be correlated with follow-up KUB and urinalysis to exclude an obstructing ureteral calculus. 08/06 This AM pt w/ increased O2 requirements, currently on 9L. stat cxr ordered, CT chest ordered on admission not done yet, will obtain now. abg. Lasix and duonebs ordered. Pt has no increased work of breathing and feels well at rest. Follows w/ [facility] pulmonology - consulted for further recommendations- recommended iv lasix Family also updated over the phone 08/07 Pt on 5L of suppl. O2, reports worse shortness of breath but no pain. Repeat CXR, procal, percussive vest, hypertonic saline, MRSA screen if procal posit. would start abx Pulmonary medicine consulted and discussed with 08/08 Much improved breathing today, pt on 3L, also was able to walk in the hallway. Acute on chronic kidney Disease Cr 1.27 at baseline (Baseline Cr mid 1s) LOPEZ on previous admission but resolved; lisinopril increased to 10mg on discharge. Cont dose and monitor daily BMP - pt diuresed w/ IV lasix d/t pulm. vasc. congestion -> Cr 1.7 on 08/07 hold lisinopril for now, hold lasix repeat BMP AM Recent GI bleed, acute blood loss anemia Generalized weakness Hgb 6.9 on previous admission (baseline hgb ~14), was transfused 1U PRBC, now with hgb 8.4 Iron level of 13, supplemented with IV Venofer Vit b12 and folate level wnl S/p EGD on 07/26 with GI, appreciate recs -noted gastric ulcers (likely cause of melena), nonobstructing Schatzki ring, small hiatal hernia -biopsy/pathology of gastric ulcer noting only inflamed mucosa -NO NSAIDS, likely cause of gastric ulcers per GI -Continue pantoprazole 40mg daily x 3 months -sucralfate 1gm QID x 10 days -Xarelto resumed -repeat EGD in 3 months - s/p polypectomy - pathology c/w tubular adenoma - follow up w/ PCP and GI Second degree/third degree Heart block On 07/27, pt with episode of dizziness and SOB, and increasing episodes of bradycardia. EKG obtained at that time concerning for second degree heart block, pt with also noted episodes of 3rd degree heart block on telemetry Cardiology was consulted- appreciate recs Verapamil reduced to 120 mg daily, flecainide discontinued PAF (paroxysmal atrial fibrillation) Pt previously in sinus rhythm on admission Verapamil reduced to 120 mg daily, flecainide discontinued Xarelto resumed for anticoagulation Complicated UTI UA on admission suggestive of infection Urine Cx currently grew Enterococcus faecalis Started on Aztreonam (pt with many antibiotic allergies) and narrowed to macrobid - finished treatment HTN (hypertension) BP was elevated on admission lisinopril increased to 10 mg daily. Home Verapamil was restarted on 08/01 at lower dose by cardiology Continue to monitor BP Per cardiology - Would avoid further escalation of AV lynnette blockers. If additional blood pressure control necessary, would first titrate SEU inhibitor, HCTZ may be a secondary option. Would not increase verapamil dose due to history of bradycardia. Tobacco dependence due to cigarettes Still smoking 3-4 cigarettes daily Encourage cessation IBD Diverticulitis Colostomy in place H/o colon resection in 2019 at [facility] in [place] Has colostomy bag in place Mood Continue home lexapro Urinary Urgency Continue oxybutynin DVT Ppx: Xarelto Code status: FULL Dispo: admitted to med/tele Admission and Anticipated Discharge Date Admission Date: August 05, 2023 Subjective Pt seen in follow up of acute on chronic resp. failure Has hx of COPD, on 3L at baseline Just admitted for GI bleed and sinus pauses Reports shortness of breath on exertion, in ED reportedly on 3L at baseline but w/ CXR w/ some pulm. vasc. congestion and received lasix on admission Currently sitting up in chair in NAD on supplemental oxygen. 3L. Says breathing feels much better and she was even able to walk in hallway.. Denies any pain - no chest pain or abdominal pain. says she has only dry cough now. Review of Systems Review of Systems: All systems reviewed & are unremarkable except as noted in Subjective Physical Exam Physical Exam: General Appearance: WD/WN, F in NAD, laying in bed , on suppl. O2 Head: normocephalic, atraumatic Eyes: normal inspection, PERRL, conjunctivae normal, anicteric sclerae ENT: external ear and nose normal, oropharynx normal Neck: normal visual inspection Respiratory: normal respiratory effort, No accessory muscle use , course breath sounds and crackles, jannette. at left base Cardiovascular: regular rate, rhythm, no murmur, normal peripheral pulses, 1+ BLE edema. Vessels: no JVD Chest: normal inspection of chest Abdomen/GI: normal bowel sounds, soft, nontender, + ostomy bag with brown output Extremities/Musculoskeletal: moves extremities Neurologic: PERRL, EOMI, no face palsy, no dysarthria, moves all extremities Psychiatric: A+Ox3, euthymic affect Skin: no rashes, normal color, warm/dry Results & Data Results & Data Vital Signs (Past 12 Hours) Vital Signs Temp Pulse Pulse Resp BP Pulse Ox O2 Del Method 08/08/23 07:26 69 17 90 Nasal Cannula 08/08/23 07:22 62 08/08/23 02:58 36.9 C 62 18 146/55 H 92 Nasal Cannula 08/07/23 23:03 36.9 C 63 18 135/54 L 92 Nasal Cannula 08/07/23 23:02 64 O2 Flow Rate 08/08/23 07:26 5 08/08/23 07:22 08/08/23 02:58 5 08/07/23 23:03 5 08/07/23 23:02 Laboratory Results 08/08/23 08/07/23 08/07/23 Range/Units 05:46 12:50 12:30 WBC 8.27 (4.8-10.8) K/ul RBC 3.15 L (4.20-5.40) M/uL Hgb 8.7 L (12.0-16.0) g/dl Hct 29.4 L (37.0-47.0) % MCV 93.3 (80.0-100.0) fL MCH 27.6 (25.0-34.0) pg MCHC 29.6 L (32.0-36.0) g/dL RDW Std Deviation 59.7 H (36.4-46.3) fL RDW Coeff of Lynn 17.6 H (11.5-14.5) % Plt Count 328 (130-400) K/uL MPV 9.9 (9.4-12.4) fL Sodium 142 143 (136-145) mmol/L Potassium 4.0 4.2 (3.5-5.1) mmol/L Chloride 106 104 (98-107) mmol/L Carbon Dioxide 32 34 H (21-32) mmol/L Anion Gap 4 5 (3-11) BUN 29 H 24 H (6-23) mg/dl Creatinine 1.82 H 1.55 H (0.6-1.2) mg/dl Est Cr Clr Drug Dosing 21.5 25.2 ml/min Est GFR ( Amer) 29.7 36.0 ml/min Est GFR (Non-Af Amer) 25.6 31.1 ml/min BUN/Creatinine Ratio 15.9 15.5 (10-20) Glucose 110 H 114 H (70-99(Fasting)) mg/dl Calcium 9.2 9.7 (8.6-10.3) mg/dl Phosphorus 3.7 (2.5-4.9) mg/dl Magnesium 2.0 (1.7-2.4) mg/dl Procalcitonin (0-0.5) ng/ml Nasal Screen MRSA (PCR) Negative (Negative) 08/07/23 Range/Units 10:35 WBC (4.8-10.8) K/ul RBC (4.20-5.40) M/uL Hgb (12.0-16.0) g/dl Hct (37.0-47.0) % MCV (80.0-100.0) fL MCH (25.0-34.0) pg MCHC (32.0-36.0) g/dL RDW Std Deviation (36.4-46.3) fL RDW Coeff of Lynn (11.5-14.5) % Plt Count (130-400) K/uL MPV (9.4-12.4) fL Sodium (136-145) mmol/L Potassium (3.5-5.1) mmol/L Chloride (98-107) mmol/L Carbon Dioxide (21-32) mmol/L Anion Gap (3-11) BUN (6-23) mg/dl Creatinine (0.6-1.2) mg/dl Est Cr Clr Drug Dosing ml/min Est GFR ( Amer) ml/min Est GFR (Non-Af Amer) ml/min BUN/Creatinine Ratio (10-20) Glucose (70-99(Fasting)) mg/dl Calcium (8.6-10.3) mg/dl Phosphorus (2.5-4.9) mg/dl Magnesium (1.7-2.4) mg/dl Procalcitonin < 0.05 (0-0.5) ng/ml Nasal Screen MRSA (PCR) (Negative) Medications Administered Current Inpatient Medications Acetaminophen (Acetaminophen 325 Mg Tab) 650 mg PO Q4H PRN PRN Reason: Pain or Fever Stop: 09/04/23 20:51 Albuterol (Albuterol Hfa 8 Gm Inhaler) 1 puffs INH QID PRN PRN Reason: Shortness Of Breath Stop: 09/04/23 20:51 Albuterol (Albut/Ipratrop 3mg/0.5mg Neb 3 Ml Vial) 3 ml INH Q4H PRN; Protocol PRN Reason: Wheezing Stop: 09/04/23 20:51 Artificial Tears (Artificial Tears) 1 drops OP BID [place] Stop: 09/04/23 21:44 Last Admin: 08/08/23 08:37 Dose: 1 drops Ascorbic Acid (Ascorbic Acid 500 Mg Tab) 500 mg PO QAM [place] Stop: 09/05/23 08:59 Last Admin: 08/08/23 08:36 Dose: 500 mg Budesonide (Budesonide 0.25 Mg/2 Ml Vial (Pulmicort)) 0.25 mg INH BIDR [place] Stop: 09/04/23 20:59 Last Admin: 08/08/23 07:25 Dose: 0.25 mg Calcium/Vitamin D (Calcium 600mg + Vit D 400 Iu Tab) 1 tab PO QPM [place] Stop: 09/04/23 20:59 Last Admin: 08/07/23 20:20 Dose: 1 tab Escitalopram Oxalate (Escitalopram Oxalate 10 Mg Tab) 10 mg PO QAM [place] Stop: 09/05/23 08:59 Last Admin: 08/08/23 08:36 Dose: 10 mg Ferrous Sulfate (Ferrous Sulfate 325 Mg Tab) 325 mg PO QAM [facility] Stop: 09/05/23 08:59 Last Admin: 08/08/23 08:36 Dose: 325 mg Furosemide (Furosemide Inj 20 Mg/2 Ml Vial) 40 mg IV [id number] [facility] Stop: 09/06/23 08:59 Last Admin: 08/07/23 08:57 Dose: 40 mg Guaifenesin (Guaifenesin 600 Mg Tabcr) 600 mg PO BID [facility] Stop: 09/04/23 20:59 Last Admin: 08/08/23 08:35 Dose: 600 mg Lisinopril (Lisinopril 10 Mg Tab) 10 mg PO QAM [facility] Stop: 09/05/23 08:59 Last Admin: 08/06/23 08:07 Dose: 10 mg Miscellaneous (Mesalamine~Order Awaiting Action) 1 each N/A QS [facility] Stop: 09/05/23 00:00 Last Admin: 08/08/23 08:38 Dose: Not Given Multivitamins/Minerals (Cerovite Adv Formula Tab) [facility] [place]: 09/05/23 08:59 Last Admin: 08/08/23 08:36 Dose: 1 tab Ondansetron HCl (Ondansetron Inj 2 Mg/Ml 2 Ml Vial) 4 mg IV Q6H PRN PRN Reason: Nausea Stop: 09/04/23 20:51 Oxybutynin Chloride (Oxybutynin Chloride Xl 5 Mg Tabcr) 5 mg PO DAILY [facility] Stop: 09/05/23 08:59 Last Admin: 08/08/23 08:36 Dose: 5 mg Pantoprazole Sodium (Pantoprazole 40 Mg Tab) 40 mg PO QAM [facility] Stop: 09/05/23 08:59 Last Admin: 08/08/23 08:35 Dose: 40 mg Polyethylene Glycol (Polyethylene (Miralax) 17 Gm Pack) 17 gm PO DAILY PRN PRN Reason: Constipation Stop: 09/04/23 20:51 Rivaroxaban (Rivaroxaban 15 Mg Tab) 15 mg PO QDD [facility] Stop: 09/05/23 21:29 Last Admin: 08/07/23 18:06 Dose: 15 mg Sodium Chloride (Sodium Chlor 7% 4 Ml Neb) 4 ml NEB BIDR [facility] Stop: 09/06/23 18:59 Last Admin: 08/08/23 07:25 Dose: 4 ml Sucralfate (Sucralfate 1 Gm/10 Ml Udc) 1 gm PO QID [facility] Stop: 09/04/23 20:59 Last Admin: 08/08/23 08:35 Dose: 1 gm Triamcinolone Acetonide (Triamcinolone Acet 0.1% Oint 15 Gm Tube) 1 appln TOP BID PRN PRN Reason: AFFECTED AREA Stop: 09/04/23 21:23 Umeclidinium/Vilanterol (Umeclidinium/Vilanterol 62.5/25mcg 7 Puffs/Inhaler) 1 puffs INH QAM [facility] Stop: 09/05/23 08:59 Last Admin: 08/08/23 08:34 Dose: 1 puffs Verapamil HCl (Verapamil Hcl 120 Mg Tabcr) 120 mg PO QAM [facility] Stop: 09/05/23 08:59 Last Admin: 08/08/23 08:35 Dose: 120 mg (2) COPD (chronic obstructive pulmonary disease) COPD type: unspecified COPD Qualified Code(s): J44.9 - Chronic obstructive pulmonary disease, unspecified (5) Anemia Anemia type: unspecified type Qualified Code(s): D64.9 - Anemia, unspecified
--- NOTE | 2023-08-09 06:20 | Hospitalist Progress Note ---
Date of Service August 09, 2023 Assessment & Plan (1) Acute on chronic respiratory failure: (2) COPD (chronic obstructive pulmonary disease): (3) Physical deconditioning: (4) Atrioventricular (AV) dissociation: (5) Anemia: (6) PVD (peripheral vascular disease): (7) PAF (paroxysmal atrial fibrillation): (8) CKD (chronic kidney disease), stage III: (9) HTN (hypertension): (10) HLD (hyperlipidemia): (11) Tobacco dependence due to cigarettes: (12) Colostomy in place: (13) FRANCIS (obstructive sleep apnea): Plan Pt is a 83yoF with PMHx significant for IBD noted on pathology in 2021, history of diverticulitis and resection of large bowel with colostomy, chronic hypoxemic respiratory failure, COPD, FRANCIS on 3L NC, paroxysmal atrial fibrillation on Xarelto, hypertension, CKD 3, depression who presented with melena and generalized weakness over the past 2 months in the setting increased SOB. Was admitted to our service from 07/25 and discharged earlier today for a GI bleed secondary to stomach ulcer seen on endoscopy, A-fib, second to third- degree variable heart block. GI recommends 40 mg daily pantoprazole for the next 3 months and then follow-up EGD, follow-up with gastroenterology in the clinic as well. Radiology recommends discontinuing flecainide and reducing verapamil dose to 120 mg daily. Had lisinopril increased to 10 mg daily. Has COPD with history of chronic respiratory failure on 3 L nasal cannula and follows with [facility] pulmonology. SOB Acute on chronic hypoxic respiratory failure COPD (chronic obstructive pulmonary disease) FRANCIS (obstructive sleep apnea) Returned home and felt more shortness of breath with exertion, anxious about living alone with current health conditions and requesting rehab versus placement In ED saturating 94% on 4 L, attempt to wean down to baseline 3 L. Given baseline COPD, goal O2 around 90% No longer using CPAP at night, does not want a new machine Continue home Budesonide, Anoro inh, Duonebs CXR with evidence of cardiomegaly with pulmonary vascular congestion, CT chest wo contrast ordered Giving 20mg IV lasix, monitor diuresis Procal negative CT chest - 1. Cardiomegaly with pulmonary edema, trace pericardial, small left and [id number] right pleural effusions. 2. Left lower lobe mucous plugging with associated volume loss and consolidation, which may represent atelectasis versus pneumonia. 3. Debris is noted within the esophagus. Correlate clinically to exclude gastroesophageal reflux. 4. Pulmonary emphysema. 5. Left nephrolithiasis with partially imaged hydroureteronephrosis. Findings could be correlated with follow-up KUB and urinalysis to exclude an obstructing ureteral calculus. 08/06 This AM pt w/ increased O2 requirements, currently on 9L. stat cxr ordered, CT chest ordered on admission not done yet, will obtain now. abg. Lasix and duonebs ordered. Pt has no increased work of breathing and feels well at rest. Follows w/ [facility] pulmonology - consulted for further recommendations- recommended iv lasix Family also updated over the phone 08/07 Pt on 5L of suppl. O2, reports worse shortness of breath but no pain. Repeat CXR, procal, percussive vest, hypertonic saline, MRSA screen if procal posit. would start abx Pulmonary medicine consulted and discussed with 08/08 -08/09 Much improved breathing today, pt on 3L (at baseline), also was able to walk in the hallway. 08/09 Per pulm. can stop percussive vest and hypertonic saline. Pt at baseline. pulm signed off. Acute on chronic kidney Disease Cr 1.27 at baseline (Baseline Cr mid 1s) LOPEZ on previous admission but resolved; lisinopril increased to 10mg on discharge. Cont dose and monitor daily BMP - pt diuresed w/ IV lasix d/t pulm. vasc. congestion -> Cr 1.7 on 08/07 hold lisinopril for now, hold lasix repeat Cr (08/09) 1.5 Recent GI bleed, acute blood loss anemia Generalized weakness Hgb 6.9 on previous admission (baseline hgb ~14), was transfused 1U PRBC, now with hgb 8.4 Iron level of 13, supplemented with IV Venofer Vit b12 and folate level wnl S/p EGD on 07/26 with GI, appreciate recs -noted gastric ulcers (likely cause of melena), nonobstructing Schatzki ring, small hiatal hernia -biopsy/pathology of gastric ulcer noting only inflamed mucosa -NO NSAIDS, likely cause of gastric ulcers per GI -Continue pantoprazole 40mg daily x 3 months -sucralfate 1gm QID x 10 days -Xarelto resumed -repeat EGD in 3 months - s/p polypectomy - pathology c/w tubular adenoma - follow up w/ PCP and GI Second degree/third degree Heart block On 07/27, pt with episode of dizziness and SOB, and increasing episodes of bradycardia. EKG obtained at that time concerning for second degree heart block, pt with also noted episodes of 3rd degree heart block on telemetry Cardiology was consulted- appreciate recs Verapamil reduced to 120 mg daily, flecainide discontinued PAF (paroxysmal atrial fibrillation) Pt previously in sinus rhythm on admission Verapamil reduced to 120 mg daily, flecainide discontinued Xarelto resumed for anticoagulation Complicated UTI UA on admission suggestive of infection Urine Cx currently grew Enterococcus faecalis Started on Aztreonam (pt with many antibiotic allergies) and narrowed to macrobid - finished treatment HTN (hypertension) BP was elevated on admission lisinopril increased to 10 mg daily. Home Verapamil was restarted on 08/01 at lower dose by cardiology Continue to monitor BP Per cardiology - Would avoid further escalation of AV lynnette blockers. If additional blood pressure control necessary, would first titrate SUE inhibitor, HCTZ may be a secondary option. Would not increase verapamil dose due to history of bradycardia. Tobacco dependence due to cigarettes Still smoking 3-4 cigarettes daily Encourage cessation IBD Diverticulitis Colostomy in place H/o colon resection in 2019 at [facility] in [place] Has colostomy bag in place Mood Continue home lexapro Urinary Urgency Continue oxybutynin DVT Ppx: Xarelto Code status: FULL Dispo: admitted to med/tele Admission and Anticipated Discharge Date Admission Date: August 05, 2023 Subjective Pt seen in follow up of acute on chronic resp. failure Has hx of COPD, on 3L at baseline Just admitted for GI bleed and sinus pauses Reports shortness of breath on exertion, in ED reportedly on 3L at baseline but w/ CXR w/ some pulm. vasc. congestion and received lasix on admission Currently sitting up in chair in NAD on supplemental oxygen. 3L. Says breathing feels much better and she was even able to walk in hallway. Denies any pain - no chest pain or abdominal pain. says she has only dry cough now. Pulmonary med. consulted - stop hypertonic saline and percussive vest. pt at baseline/ pulm signed off. CM involved in DC needs Review of Systems Review of Systems: All systems reviewed & are unremarkable except as noted in Subjective Physical Exam Physical Exam: General Appearance: WD/WN, F in NAD, laying in bed , on suppl. O2 Head: normocephalic, atraumatic Eyes: normal inspection, PERRL, conjunctivae normal, anicteric sclerae ENT: external ear and nose normal, oropharynx normal Neck: normal visual inspection Respiratory: normal respiratory effort, No accessory muscle use , diminished breath sounds, no rhonchi, or crackles, prolonged exp. phase, minimal wheezing Cardiovascular: regular rate, rhythm, no murmur, normal peripheral pulses, 1+ BLE edema. Vessels: no JVD Chest: normal inspection of chest Abdomen/GI: normal bowel sounds, soft, nontender, + ostomy bag with brown output Extremities/Musculoskeletal: moves extremities Neurologic: PERRL, EOMI, no face palsy, no dysarthria, moves all extremities Psychiatric: A+Ox3, euthymic affect Skin: no rashes, normal color, warm/dry Results & Data Results & Data Vital Signs (Past 12 Hours) Vital Signs Temp Pulse Pulse Resp BP Pulse Ox O2 Del Method 08/09/23 03:52 36.8 C 61 20 144/62 H 92 Nasal Cannula 08/09/23 00:03 36.7 C 84 20 131/79 93 Nasal Cannula 08/08/23 23:11 60 08/08/23 20:40 Nasal Cannula 08/08/23 19:44 36.9 C 61 20 106/57 L 93 Nasal Cannula 08/08/23 19:34 18 93 Nasal Cannula O2 Flow Rate 08/09/23 03:52 3.5 08/09/23 00:03 5 08/08/23 23:11 08/08/23 20:40 3 08/08/23 19:44 3 08/08/23 19:34 3 Medications Administered Current Inpatient Medications Acetaminophen (Acetaminophen 325 Mg Tab) 650 mg PO Q4H PRN PRN Reason: Pain or Fever Stop: 09/04/23 20:51 Albuterol (Albuterol Hfa 8 Gm Inhaler) 1 puffs INH QID PRN PRN Reason: Shortness Of Breath Stop: 09/04/23 20:51 Albuterol (Albut/Ipratrop 3mg/0.5mg Neb 3 Ml Vial) 3 ml INH Q4H PRN; Protocol PRN Reason: Wheezing Stop: 09/04/23 20:51 Artificial Tears (Artificial Tears) 1 drops OP BID [facility] Stop: 09/04/23 21:44 Last Admin: 08/08/23 20:40 Dose: 1 drops Ascorbic Acid (Ascorbic Acid 500 Mg Tab) 500 mg PO QAM [facility] Stop: 09/05/23 08:59 Last Admin: 08/08/23 08:36 Dose: 500 mg Budesonide (Budesonide 0.25 Mg/2 Ml Vial (Pulmicort)) 0.25 mg INH BIDR [facility] Stop: 09/04/23 20:59 Last Admin: 08/08/23 19:34 Dose: 0.25 mg Calcium/Vitamin D (Calcium 600mg + Vit D 400 Iu Tab) 1 tab PO QPM [facility] Stop: 09/04/23 20:59 Last Admin: 08/08/23 20:40 Dose: 1 tab Escitalopram Oxalate (Escitalopram Oxalate 10 Mg Tab) 10 mg PO QAM [facility] Stop: 09/05/23 08:59 Last Admin: 08/08/23 08:36 Dose: 10 mg Ferrous Sulfate (Ferrous Sulfate 325 Mg Tab) 325 mg PO QAM [facility] Stop: 09/05/23 08:59 Last Admin: 08/08/23 08:36 Dose: 325 mg Furosemide (Furosemide Inj 20 Mg/2 Ml Vial) 40 mg IV BID17 [facility] Stop: 09/06/23 08:59 Last Admin: 08/07/23 08:57 Dose: 40 mg Guaifenesin (Guaifenesin 600 Mg Tabcr) 600 mg PO BID [facility] Stop: 09/04/23 20:59 Last Admin: 08/08/23 20:37 Dose: 600 mg Lisinopril (Lisinopril 10 Mg Tab) 10 mg PO QAM [facility] Stop: 09/05/23 08:59 Last Admin: 08/06/23 08:07 Dose: 10 mg Miscellaneous (Mesalamine~Order Awaiting Action) 1 each N/A QS [facility] Stop: 09/05/23 00:00 Last Admin: 08/08/23 23:06 Dose: Not Given Multivitamins/Minerals (Cerovite Adv Formula Tab) 1 tab PO QAM [facility] Stop: 09/05/23 08:59 Last Admin: 08/08/23 08:36 Dose: 1 tab Ondansetron HCl (Ondansetron Inj 2 Mg/Ml 2 Ml Vial) 4 mg IV Q6H PRN PRN Reason: Nausea Stop: 09/04/23 20:51 Oxybutynin Chloride (Oxybutynin Chloride Xl 5 Mg Tabcr) 5 mg PO DAILY [facility] Stop: 09/05/23 08:59 Last Admin: 08/08/23 08:36 Dose: 5 mg Pantoprazole Sodium (Pantoprazole 40 Mg Tab) 40 mg PO QAM [facility] Stop: 09/05/23 08:59 Last Admin: 08/08/23 08:35 Dose: 40 mg Polyethylene Glycol (Polyethylene (Miralax) 17 Gm Pack) 17 gm PO DAILY PRN PRN Reason: Constipation Stop: 09/04/23 20:51 Rivaroxaban (Rivaroxaban 15 Mg Tab) 15 mg PO QDD [facility] Stop: 09/05/23 21:29 Last Admin: 08/08/23 17:49 Dose: 15 mg Sodium Chloride (Sodium Chlor 7% 4 Ml Neb) 4 ml NEB BIDR [facility] Stop: 09/06/23 18:59 Last Admin: 08/08/23 19:34 Dose: 4 ml Sucralfate (Sucralfate 1 Gm/10 Ml Udc) 1 gm PO QID [facility] Stop: 09/04/23 20:59 Last Admin: 08/08/23 20:37 Dose: 1 gm Triamcinolone Acetonide (Triamcinolone Acet 0.1% Oint 15 Gm Tube) 1 appln TOP BID PRN PRN Reason: AFFECTED AREA Stop: 09/04/23 21:23 Umeclidinium/Vilanterol (Umeclidinium/Vilanterol 62.5/25mcg 7 Puffs/Inhaler) 1 puffs INH QAM [facility] Stop: 09/05/23 08:59 Last Admin: 08/08/23 08:34 Dose: 1 puffs Verapamil HCl (Verapamil Hcl 120 Mg Tabcr) [facility] Stop: 09/05/23 08:59 Last Admin: 08/08/23 08:35 Dose: 120 mg (2) COPD (chronic obstructive pulmonary disease) COPD type: unspecified COPD Qualified Code(s): J44.9 - Chronic obstructive pulmonary disease, unspecified (5) Anemia Anemia type: unspecified type Qualified Code(s): D64.9 - Anemia, unspecified
[2023-08-09 07:39] LABS: Hematocrit (blood only) 27.4 % (37.0-47.0); Hemoglobin 8.3 g/dl (12.0-16.0); Mean Corpuscular Hgb Conc 30.3 g/dL (32.0-36.0); Mean Corpuscular Volume 92.6 fL (80.0-100.0); Platelet Count 360 K/uL (130-400); RDW Coefficient of Variation 17.3 % (11.5-14.5); RDW Standard Deviation 58.9 fL (36.4-46.3); Red Blood Count 2.96 M/uL (4.20-5.40); White Blood Count 8.48 K/ul (4.8-10.8)
[2023-08-09 07:56] LABS: BUN Creatinine Ratio 18.8 (10-20); Calcium 8.9 mg/dl (8.6-10.3); Creatinine Clr Calc Pharmacy 25.5 ml/min; Est GFR (African American) 36.3 ml/min; Est GFR (Non-African American) 31.3 ml/min; Phosphorus 3.5 mg/dl (2.5-4.9); Potassium 3.9 mmol/L (3.5-5.1)
--- NOTE | 2023-08-09 14:18 | Pulmonology Progress Note ---
Date of Service August 09, 2023 Assessment & Plan (1) Chronic respiratory failure with hypoxia: (2) CKD (chronic kidney disease), stage III: (3) Multiple pulmonary nodules: (4) COPD (chronic obstructive pulmonary disease): COPD type: unspecified COPD Qualified Code(s): J44.9 - Chronic obstructive pulmonary disease, unspecified (5) FIGUEROA (dyspnea on exertion): Plan Impression: 83-year-old female with oxygen dependent COPD and recent admission for GI bleed complicated by high degree AV block admitted with a chest x-ray that looks like fluid overload. She is mildly anemic as well. Recommendations: 1. COPD: The patient does not appear to be suffering a COPD exacerbation. Continue Anoro and nebulized budesonide baseline. No indication for steroids or antibiotics. 2. Dyspnea: Multifactorial due to atelectasis, deconditioning, obesity and CHF. Her dyspnea appears to be back to baseline. Percussive vest therapy and hypertonic saline can be discontinued. 3. Hypoxemia: Secondary to obesity, COPD, acute heart failure and possible pneumonia. EF 07/28/2023 was 65 to 70%. Grade 1 diastolic dysfunction noted. BNP elevated to 416 this admission. Patient adequately diuresed. She is back to her baseline oxygen needs of 3 L/min. No further recommendations at this time. Pulmonary to sign off. Thank you for the consult. Admission and Anticipated Discharge Date Admission Date: August 05, 2023 Subjective Patient feels back to her baseline from a respiratory standpoint. She is back to her baseline oxygen needs. She has a chronic cough. She denies any sputum production today. No fevers or chills. Review of Systems Review of Systems: All systems reviewed & are unremarkable except as noted in HPI & below Physical Exam Constitutional: WD/WN, vitals as above Neck: trachea midline, no thyromegaly Respiratory: Diminished bibasilar lung sounds. No wheeze. Prolonged phase of exhalation. Cardiovascular: RRR, no murmur, no edema Gastrointestinal (Abdomen): normal bowel sounds, soft, nontender, no hepatosplenomegaly Musculoskeletal: Extremities: extremities normal to inspection Skin: no rashes, warm and dry Neurologic: Nonfocal exam Lymphatic: no cervical lymphadenopathy Results & Data Results & Data Vital Signs (Past 12 Hours) Vital Signs Temp Pulse Pulse Resp BP Pulse Ox O2 Del Method 08/09/23 11:41 37.2 C 60 16 143/54 H 92 Nasal Cannula 08/09/23 08:26 36.9 C 67 16 157/67 H 90 High Flow Nasal Cannula 08/09/23 08:00 66 08/09/23 07:32 63 20 91 Nasal Cannula 08/09/23 07:32 Nasal Cannula 08/09/23 03:52 36.8 C 61 20 144/62 H 92 Nasal Cannula O2 Flow Rate 08/09/23 11:41 3 08/09/23 08:26 3 08/09/23 08:00 08/09/23 07:32 2 08/09/23 07:32 3 08/09/23 03:52 3.5 PG Care Time/CCT Total # of Minutes Spent Total Time Spent with Patient: Total time spent is greater than 50% in coordination of care (as documented) at patient's floor/unit and/or counseling patient: Coding Level of Care Code 53495 SUB INP/OBS CARE 07/27MIN Diagnoses Chronic respiratory failure with hypoxia J96.11 CKD (chronic kidney disease), stage III N18.30 Multiple pulmonary nodules R91.8 COPD (chronic obstructive pulmonary disease) J44.9 COPD type: unspecified COPD FIGUEROA (dyspnea on exertion) R06.00
[2023-08-10 06:03] LABS: Hemoglobin 8.5 g/dl (12.0-16.0); Mean Corpuscular Hemoglobin 27.9 pg (25.0-34.0); Mean Corpuscular Hgb Conc 30.4 g/dL (32.0-36.0); Mean Corpuscular Volume 91.8 fL (80.0-100.0); Mean Platelet Volume 9.8 fL (9.4-12.4); Platelet Count 382 K/uL (130-400); RDW Coefficient of Variation 17.4 % (11.5-14.5); Red Blood Count 3.05 M/uL (4.20-5.40); White Blood Count 7.78 K/ul (4.8-10.8)
[2023-08-10 06:22] LABS: BUN Creatinine Ratio 17.3 (10-20); Calcium 8.8 mg/dl (8.6-10.3); Est GFR (African American) 37.5 ml/min; Est GFR (Non-African American) 32.3 ml/min; Phosphorus 3.5 mg/dl (2.5-4.9); Potassium 4.2 mmol/L (3.5-5.1)
--- NOTE | 2023-08-10 20:04 | Hospitalist Progress Note ---
Date of Service August 10, 2023 Assessment & Plan (1) Acute on chronic respiratory failure: (2) COPD (chronic obstructive pulmonary disease): (3) Physical deconditioning: (4) Atrioventricular (AV) dissociation: (5) Anemia: (6) PVD (peripheral vascular disease): (7) PAF (paroxysmal atrial fibrillation): (8) CKD (chronic kidney disease), stage III: (9) HTN (hypertension): (10) HLD (hyperlipidemia): (11) Tobacco dependence due to cigarettes: (12) Colostomy in place: (13) FRANCIS (obstructive sleep apnea): Plan Pt is a 83yoF with PMHx significant for IBD noted on pathology in 2021, history of diverticulitis and resection of large bowel with colostomy, chronic hypoxemic respiratory failure, COPD, FRANCIS on 3L NC, paroxysmal atrial fibrillation on Xarelto, hypertension, CKD 3, depression who presented with melena and generalized weakness over the past 2 months in the setting increased SOB. Was admitted to our service from 07/25 and discharged earlier today for a GI bleed secondary to stomach ulcer seen on endoscopy, A-fib, second to third- degree variable heart block. GI recommends 40 mg daily pantoprazole for the next 3 months and then follow-up EGD, follow-up with gastroenterology in the clinic as well. Radiology recommends discontinuing flecainide and reducing verapamil dose to 120 mg daily. Had lisinopril increased to 10 mg daily. Has COPD with history of chronic respiratory failure on 3 L nasal cannula and [place] with [facility] [place]. SOB Acute on chronic hypoxic respiratory failure COPD (chronic obstructive pulmonary disease) FRANCIS (obstructive sleep apnea) Returned home and felt more shortness of breath with exertion, anxious about living alone with current health conditions and requesting rehab versus placement In ED saturating 94% on 4 L, attempt to wean down to baseline 3 L. Given baseline COPD, goal O2 around 90% No longer using CPAP at night, does not want a new machine Continue home Budesonide, Anoro inh, Duonebs CXR with evidence of cardiomegaly with pulmonary vascular congestion, CT chest wo contrast ordered Giving 20mg IV lasix, monitor diuresis Procal negative CT chest - 1. Cardiomegaly with pulmonary edema, trace pericardial, small left and [id number] right pleural effusions. 2. Left lower lobe mucous plugging with associated volume loss and consolidation, which may represent atelectasis versus pneumonia. 3. Debris is noted within the esophagus. Correlate clinically to exclude gastroesophageal reflux. 4. Pulmonary emphysema. 5. Left nephrolithiasis with partially imaged hydroureteronephrosis. Findings could be correlated with follow-up KUB and urinalysis to exclude an obstructing ureteral calculus. 08/06 This AM pt w/ increased O2 requirements, currently on 9L. stat cxr ordered, CT chest ordered on admission not done yet, will obtain now. abg. Lasix and duonebs ordered. Pt has no increased work of breathing and feels well at rest. Follows w/ [facility] pulmonology - consulted for further recommendations- recommended iv lasix Family also updated over the phone 08/07 Pt on 5L of suppl. O2, reports worse shortness of breath but no pain. Repeat CXR, procal, percussive vest, hypertonic saline, MRSA screen if procal posit. would start abx Pulmonary medicine consulted and discussed with 08/08 -08/09 Much improved breathing today, pt on 3L (at baseline), also was able to walk in the hallway. 08/09 Per pulm. can stop percussive vest and hypertonic saline. Pt at baseline. pulm signed off. Acute on chronic kidney Disease Cr 1.27 at baseline (Baseline Cr mid 1s) LOPEZ on previous admission but resolved; lisinopril increased to 10mg on discharge. Cont dose and monitor daily BMP - pt diuresed w/ IV lasix d/t pulm. vasc. congestion -> Cr 1.7 on 08/07 hold lisinopril for now, hold lasix repeat Cr (08/09) 1.5 Recent GI bleed, acute blood loss anemia Generalized weakness Hgb 6.9 on previous admission (baseline hgb ~14), was transfused 1U PRBC, now with hgb 8.4 Iron level of 13, supplemented with IV Venofer Vit b12 and folate level wnl S/p EGD on 07/26 with GI, appreciate recs -noted gastric ulcers (likely cause of melena), nonobstructing Schatzki ring, small hiatal hernia -biopsy/pathology of gastric ulcer noting only inflamed mucosa -NO NSAIDS, likely cause of gastric ulcers per GI -Continue pantoprazole 40mg daily x 3 months -sucralfate 1gm QID x 10 days -Xarelto resumed -repeat EGD in 3 months - s/p polypectomy - pathology c/w tubular adenoma - follow up w/ PCP and GI Second degree/third degree Heart block On 07/27, pt with episode of dizziness and SOB, and increasing episodes of bradycardia. EKG obtained at that time concerning for second degree heart block, pt with also noted episodes of 3rd degree heart block on telemetry Cardiology was consulted- appreciate recs Verapamil reduced to 120 mg daily, flecainide discontinued PAF (paroxysmal atrial fibrillation) Pt previously in sinus rhythm on admission Verapamil reduced to 120 mg daily, flecainide discontinued Xarelto resumed for anticoagulation Complicated UTI UA on admission suggestive of infection Urine Cx currently grew Enterococcus faecalis Started on Aztreonam (pt with many antibiotic allergies) and narrowed to macrobid - finished treatment HTN (hypertension) BP was elevated on admission lisinopril increased to 10 mg daily. Home Verapamil was restarted on 08/01 at lower dose by cardiology Continue to monitor BP Per cardiology - Would avoid further escalation of AV lynnette blockers. If additional blood pressure control necessary, would first titrate SUE inhibitor, HCTZ may be a secondary option. Would not increase verapamil dose due to history of bradycardia. Tobacco dependence due to cigarettes Still smoking 3-4 cigarettes daily Encourage cessation IBD Diverticulitis Colostomy in place H/o colon resection in 2019 at [facility] in [place] Has colostomy bag in place Mood Continue home lexapro Urinary Urgency Continue oxybutynin DVT Ppx: Xarelto Code status: FULL Dispo: admitted to med/tele -> plan to DC to [facility] Admission and Anticipated Discharge Date Admission Date: August 05, 2023 Subjective Pt seen in follow up of acute on chronic resp. failure Has hx of COPD, on 3L at baseline Just admitted for GI bleed and sinus pauses Reports shortness of breath on exertion, in ED reportedly on 3L at baseline but w/ CXR w/ some pulm. vasc. congestion and received lasix on admission Currently sitting up in chair in NAD on supplemental oxygen. 3L. Says breathing feels much better and she was even able to walk in hallway. Denies any pain - no chest pain or abdominal pain. says she has only dry cough now. Pulmonary med. consulted - stopped hypertonic saline and percussive vest. pt at baseline/ pulm signed off. CM involved - plan to DC to [facility] (bed not available today but should be tomorrow) Review of Systems Review of Systems: All systems reviewed & are unremarkable except as noted in Subjective Physical Exam Physical Exam: General Appearance: WD/WN, F in NAD, laying in bed , on suppl. O2 Head: normocephalic, atraumatic Eyes: normal inspection, PERRL, conjunctivae normal, anicteric sclerae ENT: external ear and nose normal, oropharynx normal Neck: normal visual inspection Respiratory: normal respiratory effort, No accessory muscle use , diminished breath sounds, no rhonchi, or crackles, prolonged exp. phase, no wheezing Cardiovascular: regular rate, rhythm, no murmur, normal peripheral pulses, 1+ BLE edema. Vessels: no JVD Chest: normal inspection of chest Abdomen/GI: normal bowel sounds, soft, nontender, + ostomy bag with brown output Extremities/Musculoskeletal: moves extremities Neurologic: PERRL, EOMI, no face palsy, no dysarthria, moves all extremities Psychiatric: A+Ox3, euthymic affect Skin: no rashes, normal color, warm/dry Results & Data Results & Data Vital Signs (Past 12 Hours) Vital Signs Temp Pulse Pulse Resp BP BP Pulse Ox 08/10/23 19:10 58 L 16 95 08/10/23 19:05 37.0 C 56 L 18 126/51 L 93 08/10/23 15:17 37.2 C 60 18 134/56 L 91 08/10/23 14:10 64 08/10/23 11:23 36.6 C 62 16 133/56 L 92 O2 Del Method O2 Flow Rate 08/10/23 19:10 Nasal Cannula 3 08/10/23 19:05 Nasal Cannula 3 08/10/23 15:17 Nasal Cannula 3 08/10/23 14:10 08/10/23 11:23 Nasal Cannula 4 Laboratory Results 08/10/23 Range/Units 05:41 WBC 7.78 (4.8-10.8) K/ul RBC 3.05 L (4.20-5.40) M/uL Hgb 8.5 L (12.0-16.0) g/dl Hct 28.0 L (37.0-47.0) % MCV 91.8 (80.0-100.0) fL MCH 27.9 (25.0-34.0) pg MCHC 30.4 L (32.0-36.0) g/dL RDW Std Deviation 59.0 H (36.4-46.3) fL RDW Coeff of Lynn 17.4 H (11.5-14.5) % Plt Count 382 (130-400) K/uL MPV 9.8 (9.4-12.4) fL Sodium 141 (136-145) mmol/L Potassium 4.2 (3.5-5.1) mmol/L Chloride 106 (98-107) mmol/L Carbon Dioxide 31 (21-32) mmol/L Anion Gap 4 (3-11) BUN 26 H (6-23) mg/dl Creatinine 1.50 H (0.6-1.2) mg/dl Est Cr Clr Drug Dosing 26.0 ml/min Est GFR ( Amer) 37.5 ml/min Est GFR (Non-Af Amer) 32.3 ml/min BUN/Creatinine Ratio 17.3 (10-20) Glucose 107 H (70-99(Fasting)) mg/dl Calcium 8.8 (8.6-10.3) mg/dl Phosphorus 3.5 (2.5-4.9) mg/dl Magnesium 2.0 (1.7-2.4) mg/dl Medications Administered Current Inpatient Medications Acetaminophen (Acetaminophen 325 Mg Tab) 650 mg PO Q4H PRN PRN Reason: Pain or Fever Stop: 09/04/23 20:51 Albuterol (Albuterol Hfa 8 Gm Inhaler) 1 puffs INH QID PRN PRN Reason: Shortness Of Breath Stop: 09/04/23 20:51 Albuterol (Albut/Ipratrop 3mg/0.5mg Neb 3 Ml Vial) 3 ml INH Q4H PRN; Protocol PRN Reason: Wheezing Stop: 09/04/23 20:51 Artificial Tears (Artificial Tears) 1 drops OP BID [place] Stop: 09/04/23 21:44 Last Admin: 08/10/23 20:01 Dose: 1 drops Ascorbic Acid (Ascorbic Acid 500 Mg Tab) 500 mg PO QAM [place] Stop: 09/05/23 08:59 Last Admin: 08/10/23 08:59 Dose: 500 mg Budesonide (Budesonide 0.25 Mg/2 Ml Vial (Pulmicort)) 0.25 mg INH BIDR [facility] Stop: 09/04/23 20:59 Last Admin: 08/10/23 19:08 Dose: 0.25 mg Calcium/Vitamin D (Calcium 600mg + Vit D 400 Iu Tab) 1 tab PO QPM [place] Stop: 09/04/23 20:59 Last Admin: 08/10/23 20:01 Dose: 1 tab Escitalopram Oxalate (Escitalopram Oxalate 10 Mg Tab) 10 mg PO QAM [facility] Stop: 09/05/23 08:59 Last Admin: 08/10/23 08:59 Dose: 10 mg Ferrous Sulfate (Ferrous Sulfate 325 Mg Tab) 325 mg PO QAM [facility] Stop: 09/05/23 08:59 Last Admin: 08/10/23 08:58 Dose: 325 mg Furosemide (Furosemide Inj 20 Mg/2 Ml Vial) 40 mg IV [id number] [facility] Stop: 09/06/23 08:59 Last Admin: 08/07/23 08:57 Dose: 40 mg Guaifenesin (Guaifenesin 600 Mg Tabcr) 600 mg PO BID [facility] Stop: 09/04/23 20:59 Last Admin: 08/10/23 20:01 Dose: 600 mg Lisinopril (Lisinopril 10 Mg Tab) 10 mg PO QAM [facility] Stop: 09/05/23 08:59 Last Admin: 08/06/23 08:07 Dose: 10 mg Miscellaneous (Mesalamine~Order Awaiting Action) 1 each N/A QS [facility] Stop: 09/05/23 00:00 Last Admin: 08/10/23 13:55 Dose: Not Given Multivitamins/Minerals (Cerovite Adv Formula Tab) 1 tab PO QAM [facility] Stop: 09/05/23 08:59 Last Admin: 08/10/23 08:58 Dose: 1 tab Ondansetron HCl (Ondansetron Inj 2 Mg/Ml 2 Ml Vial) 4 mg IV Q6H PRN PRN Reason: Nausea Stop: 09/04/23 20:51 Oxybutynin Chloride (Oxybutynin Chloride Xl 5 Mg Tabcr) 5 mg PO DAILY [facility] Stop: 09/05/23 08:59 Last Admin: 08/10/23 08:58 Dose: 5 mg Pantoprazole Sodium (Pantoprazole 40 Mg Tab) 40 mg PO QAM [facility] Stop: 09/05/23 08:59 Last Admin: 08/10/23 08:59 Dose: 40 mg Polyethylene Glycol (Polyethylene (Miralax) 17 Gm Pack) 17 gm PO DAILY PRN PRN Reason: Constipation Stop: 09/04/23 20:51 Rivaroxaban (Rivaroxaban 15 Mg Tab) 15 mg PO QDD [facility] Stop: 09/05/23 21:29 Last Admin: 08/10/23 16:12 Dose: 15 mg Sucralfate (Sucralfate 1 Gm/10 Ml Udc) 1 gm PO QID [facility] Stop: 09/04/23 20:59 Last Admin: 08/10/23 20:01 Dose: 1 gm Triamcinolone Acetonide (Triamcinolone Acet 0.1% Oint 15 Gm Tube) 1 appln TOP BID PRN PRN Reason: AFFECTED AREA Stop: 09/04/23 21:23 Umeclidinium/Vilanterol (Umeclidinium/Vilanterol 62.5/25mcg 7 Puffs/Inhaler) 1 puffs INH [facility] Stop: 09/05/23 08:59 Last Admin: 08/10/23 08:57 Dose: 1 puffs Verapamil HCl (Verapamil Hcl 120 Mg Tabcr) [facility] [place] Stop: 09/05/23 08:59 Last Admin: 08/10/23 08:59 Dose: 120 mg (2) COPD (chronic obstructive pulmonary disease) COPD type: unspecified COPD Qualified Code(s): J44.9 - Chronic obstructive pulmonary disease, unspecified (5) Anemia Anemia type: unspecified type Qualified Code(s): D64.9 - Anemia, unspecified
[2023-08-11 06:36] LABS: Hematocrit (blood only) 28.5 % (37.0-47.0); Hemoglobin 8.5 g/dl (12.0-16.0); Mean Corpuscular Hgb Conc 29.8 g/dL (32.0-36.0); Mean Corpuscular Volume 93.8 fL (80.0-100.0); Mean Platelet Volume 9.7 fL (9.4-12.4); Platelet Count 367 K/uL (130-400); RDW Coefficient of Variation 17.2 % (11.5-14.5); RDW Standard Deviation 58.4 fL (36.4-46.3); Red Blood Count 3.04 M/uL (4.20-5.40); White Blood Count 7.43 K/ul (4.8-10.8)
[2023-08-11 06:45] LABS: BUN Creatinine Ratio 16.7 (10-20); Calcium 8.9 mg/dl (8.6-10.3); Creatinine Clr Calc Pharmacy 24.2 ml/min; Est GFR (African American) 34.1 ml/min; Est GFR (Non-African American) 29.5 ml/min; Phosphorus 3.4 mg/dl (2.5-4.9); Potassium 4.1 mmol/L (3.5-5.1)
[2023-08-11 07:44] VITALS: RESP 20
[2023-08-11 11:19] VITALS: TEMP 98.2; O2SAT 96
--- NOTE | 2023-08-11 12:30 | Discharge Summary ---
Discharge Summary Date of Service August 11, 2023 Notes For Next Care Provider Please ensure close follow up with pulmonology and cardiology after discharge Please closely monitor kidney function while on daily Lasix, consider Nephrology follow up Per GI previous admission: -pantoprazole 40mg daily for 3 months starting on 07/26/23 -NO NSAIDS/aspirin -Repeat EGD in 3 months Per Cardiology when managing pt's HTN: "Would avoid further escalation of AV lynnette blockers. If additional blood pressure control necessary, would first titrate SUE inhibitor, HCTZ may be a secondary option. Would not increase verapamil dose due to history of bradycardia." Medication Changes From Visit Lasix 20mg daily started STOP: Sucralfate, was 10 days of treatment. STOP macrobid, completed treatment Admission HPI Per Admitting Provider This is an 83-year-old female with PMH of history of suspected IBD, history of diverticulitis and resection of large bowel with colostomy, chronic hypoxemic respiratory failure, COPD, FRANCIS on 3L NC, paroxysmal atrial fibrillation on Xarelto, hypertension CKD 3, depression and other medical problems listed below who presents with generalized weakness over the past 2 months and presents with worsening shortness of breath. 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 GI recommends 40 mg daily pantoprazole for the next 3 months and then follow-up EGD, follow-up w [facility] gastroenterology in the clinic as well. Radiology recommends discontinuing flecainide and reducing verapamil dose to 120 mg daily. Had lisinopril increased to 10 mg daily. Has COPD with history of chronic respiratory failure on 3 L nasal cannula and follows with [facility] pulmonology. Was discharged earlier today but then once she arrived home and was walking around her home, she had to keep sitting down to rest and felt significantly more SOB. When asked about her activity level while admitted for the past few weeks, patient states she did ambulate to the bathroom and back and a little bit around her room but also needed to rest then. Denies any congestion, fever or chills or significant change to shortness of breath. Rather, she feels anxious with her current health conditions to be living alone at home and is interested in possible rehab versus long-term placement. Was found to be hypoxic in the 70s initially on room air but baseline is 3 L, where she was in the high 80s. Feeling better at rest and saturating at 94% on 4 L nasal cannula. Does not feel comfortable returning home alone and is interested in placement. Admission Exam Per Admitting Provider General Appearance: WD/WN, vitals as above, NAD, sitting up in bed, pleasant, conversing easily, appears chronically ill Head: normocephalic, atraumatic Eyes: normal inspection, PERRL, conjunctivae normal, anicteric sclerae ENT: external ear and nose normal, oropharynx normal Neck: normal visual inspection, trachea midline, no thyromegaly Respiratory: normal respiratory effort, scattered rhonchi, faint crackles at bases. No accessory muscle use Cardiovascular: regular rate, rhythm, no murmur, normal peripheral pulses, 1+ BLE edema. Vessels: no JVD Chest: normal inspection of chest Abdomen/GI: normal bowel sounds, soft, nontender, no hepatosplenomegaly, + ostomy bag with brown output Extremities/Musculoskeletal: no cyanosis or clubbing, extremities motor strength 5/5 Neurologic: PERRL, EOMI, accommodation nl, no face palsy, no dysarthria, CN's II-XI intact bilaterally and moves all extremities Psychiatric: A+Ox3, euthymic affect Skin: no rashes, normal color, warm/dry Principal Dx & Hospital Course #1 = Principal Diagnosis (1) Acute on chronic respiratory failure: (2) COPD (chronic obstructive pulmonary disease): (3) Physical deconditioning: (4) Atrioventricular (AV) dissociation: (5) Anemia: (6) PVD (peripheral vascular disease): (7) PAF (paroxysmal atrial fibrillation): (8) CKD (chronic kidney disease), stage III: (9) HTN (hypertension): (10) HLD (hyperlipidemia): (11) Tobacco dependence due to cigarettes: (12) Colostomy in place: (13) FRANCIS (obstructive sleep apnea): Plan Pt is a 83yoF with PMHx significant for IBD noted on pathology in 2021, history of diverticulitis and resection of large bowel with colostomy, chronic hypoxemic respiratory failure, COPD, FRANCIS on 3L NC, paroxysmal atrial fibrillation on Xarelto, hypertension, CKD 3, depression, diastolic heart failure per echo 07/28/23 who presented with melena and generalized weakness over the past 2 months in the setting increased SOB. Was admitted to our service from 07/25 and discharged for a GI bleed secondary to stomach ulcer seen on endoscopy, A-fib, second to third-degree variable heart b lock. GI recommended 40 mg daily pantoprazole for the next 3 months and then follow-up EGD, follow-up with gastroenterology in the clinic as well. Cardiology recommended discontinuing flecainide and reducing verapamil dose to 120 mg daily. Had lisinopril increased to 10 mg daily. Has COPD with history of chronic respiratory failure on 3 L nasal cannula and follows with [facility] pulmonology. SOB Acute on chronic hypoxic respiratory failure COPD (chronic obstructive pulmonary disease) FRANCIS (obstructive sleep apnea) Diastolic Heart Failure Returned home after recent admission and felt more short of breath with exertion, anxious about living alone with current health conditions and requesting rehab versus placement In ED saturating 94% on 4L, attempting to wean down to baseline 3 L. Given baseline COPD, goal O2 around 90% No longer using CPAP at night, does not want a new machine Continue home Budesonide, Anoro inh, Duonebs CXR with evidence of cardiomegaly with pulmonary vascular congestion CT chest wo contrast ordered- results noted below Echo from 07/28/2023 noting Grade I diastolic dysfunction, EF 65-70%, mid mitral regurg and trace tricuspid regurg. Was treated with IV lasix 40mg BID, percussive vest therapy, hypertonic saline. Procal negative, making infection less likely so no antibiotics were started Pulmonology was consulted, recommended IV Lasix diuresis, continue anoro and budesonide nebules. Stated that pt was adequately diuresed on discharge. Continue with maintenance po Lasix 20mg daily after discharge with close pcp, cardiology and pulmonology follow up. Pt able to walk the hallways without oxygenation issues days before discharge. CT chest - 1. Cardiomegaly with pulmonary edema, trace pericardial, small left and btqsm-sy-ohtyxyey right pleural effusions. 2. Left lower lobe mucous plugging with associated volume loss and consolidation, which may represent atelectasis versus pneumonia. 3. Debris is noted within the esophagus. Correlate clinically to exclude gastroesophageal reflux. 4. Pulmonary emphysema. 5. Left nephrolithiasis with partially imaged hydroureteronephrosis. Findings could be correlated with follow-up KUB and urinalysis to exclude an obstructing ureteral calculus. Acute on chronic kidney Disease Cr 1.27 at baseline (Baseline Cr mid 1s) LOPEZ on previous admission but resolved lisinopril increased to 10mg during prior admission. Pt diuresed w/ IV lasix d/t pulm. vasc. congestion this admission with noted LOPEZ. Cr 1.6 on discharge Please closely monitor kidney function after discharge while on daily po Lasix 20mg, consider Nephrology follow up Recent GI bleed, acute blood loss anemia Generalized weakness Hgb 6.9 on previous admission (baseline hgb ~14), was transfused 1U PRBC, now with hgb 8.4 Iron level of 13, supplemented with IV Venofer Vit b12 and folate level wnl S/p EGD on 07/26 with GI, appreciate recs -noted gastric ulcers (likely cause of melena), nonobstructing Schatzki ring, small hiatal hernia -biopsy/pathology of gastric ulcer noting only inflamed mucosa -NO NSAIDS, likely cause of gastric ulcers per GI -Continue pantoprazole 40mg daily x 3 months -sucralfate 1gm QID x 10 days -Xarelto resumed -repeat EGD in 3 months - s/p polypectomy - pathology c/w tubular adenoma - follow up w/ PCP and GI Second degree/third degree Heart block On 07/27, pt with episode of dizziness and SOB, and increasing episodes of bradycardia. EKG obtained at that time concerning for second degree heart block, pt with also noted episodes of 3rd degree heart block on telemetry Cardiology was consulted- appreciate recs Verapamil reduced to 120 mg daily, flecainide discontinued PAF (paroxysmal atrial fibrillation) Pt previously in sinus rhythm on admission Verapamil reduced to 120 mg daily, flecainide discontinued Xarelto resumed for anticoagulation Complicated UTI UA on admission suggestive of infection Urine Cx currently grew Enterococcus faecalis Started on Aztreonam (pt with many antibiotic allergies) and narrowed to macrobid - finished treatment HTN (hypertension) BP was elevated on admission lisinopril increased to 10 mg daily. Home Verapamil was restarted on 08/01 at lower dose by cardiology Continue to monitor BP Per cardiology - Would avoid further escalation of AV lynnette blockers. If additional blood pressure control necessary, would first titrate SUE inhibitor, HCTZ may be a secondary option. Would not increase verapamil dose due to history of bradycardia. Tobacco dependence due to cigarettes Still smoking 3-4 cigarettes daily Encourage cessation IBD Diverticulitis Colostomy in place H/o colon resection in 2019 at [facility] in [place] Has colostomy bag in place Mood Continue home lexapro Urinary Urgency Continue oxybutynin Discharge Exam General: Alert, oriented. No acute distress Skin: No noted rashes or bruises Psych: Appropriate mood and affect Neuro: No gross deficits HEENT: NC/AT Chest: Nontender to palpation. CV:Irregular Resp: Breath sounds clear bilaterally, no increased effort of breathing. Abdomen: Soft, ostomy bag in place Extremities: edema in lower extremities bilaterally. Updated Medication List Medication Instructions Recorded Confirmed Type calcium carbonate 500 mg-vitamin 1 tab PO QPM 03/10/19 08/05/23 History D3 10 mcg (400 unit) tablet (Calcium 500 + D) escitalopram oxalate 10 mg tablet 10 mg PO QAM 03/10/19 08/05/23 History (Lexapro) ferrous sulfate 325 mg (65 mg 325 mg PO QAM 03/10/19 08/05/23 History iron) tablet vit C 250 mg-vit E 90 mg-zinc 40 1 tab PO QAM 03/10/19 08/05/23 History mg-copper 1 or-gyrewl-tnxucr capsule (PreserVision AREDS-2) guaifenesin 600 mg tablet, 600 mg PO BID #60 tabs 07/16/20 08/05/23 Rx extended release 12 hr (Mucinex) ascorbic acid (vitamin C) 500 mg 500 mg PO QAM 12/08/20 08/05/23 History tablet (Vitamin C) cyclosporine 0.05 % eye drops in a 1 drp OPB BID 12/08/20 08/05/23 History dropperette (Restasis) Portable Oxygen #1 ea 03/25/21 01/19/23 Rx rivaroxaban 15 mg tablet (Xarelto) 15 mg PO QPM 11/05/21 08/05/23 History Auto Titrating CPAP #1 ea 02/03/23 02/03/23 Rx CPAP Supplies #1 ea 02/03/23 02/03/23 Rx albuterol sulfate 90 mcg/actuation 1 inh inhalation QID PRN Shortness 02/03/23 08/05/23 Rx aerosol inhaler (ProAir HFA) Of Breath #8.5 grams budesonide 0.25 mg/2 mL suspension 0.25 mg (2 mL) inhalation BID #60 02/03/23 08/05/23 Rx for nebulization mL umeclidinium 62.5 mcg-vilanterol 1 inh inhalation QAM #60 ea 02/03/23 08/05/23 Rx 25 mcg/actuation powdr for inhalation (Anoro Ellipta) mesalamine 1.2 gram tablet,delayed 3.6 g PO QAM 03/14/23 08/05/23 History release acetaminophen 325 mg tablet 325 mg PO Q6H PRN Pain 07/25/23 08/05/23 History (Tylenol) ipratropium 0.5 mg-albuterol 3 mg 3 ml inhalation Q4H PRN Wheezing 07/25/23 08/05/23 History (2.5 mg base)/3 mL nebulization soln omega-3 fatty acids 500 mg capsule 500 mg PO DAILY 07/25/23 08/05/23 History solifenacin 5 mg tablet 5 mg PO QAM 07/25/23 08/05/23 History triamcinolone acetonide 0.05 % 1 applic topical BID PRN AFFECTED 07/25/23 08/05/23 History topical ointment AREA lisinopril 10 mg tablet 10 mg PO QAM #30 tabs 08/05/23 08/05/23 Rx pantoprazole 40 mg tablet,delayed 40 mg PO QAM #30 tabs 08/05/23 08/05/23 Rx release verapamil 120 mg tablet,extended 120 mg PO QAM #30 tabs 08/05/23 08/05/23 Rx release (Calan SR) furosemide 20 mg tablet 20 mg PO DAILY #30 tabs 08/11/23 Rx Hospital Stay Data Consultations 08/05/23 18:59 ED Decision to Admit Stat 08/06/23 07:53 Consult Pulmonology Routine Diagnostic Imagining Performed 08/06/23 08:42 CT chest diagnostic wo con Urgent Chest X-Ray 08/05/23 18:28 XR chest 1V portable HISTORY: 83 years-old Female Dyspnea acute shortness of breath COMPARISON: 07/27/2023 TECHNIQUE: AP view of the chest FINDINGS: Cardiac silhouette is enlarged. Pulmonary vascular congestion. Emphysema with chronic interstitial coarsening. Small pleural effusions with mild bibasilar consolidation. IMPRESSION: 1. Cardiomegaly with pulmonary vascular congestion. 2. Small pleural effusions with bibasilar consolidation. 3. Pulmonary emphysema. ACT 112: Negative or not required by law. The above report was generated using voice recognition software. It may contain grammatical, syntax or spelling errors. Electronically signed by: Stephen Rapp M.D. 08/05/2023 6:43 PM Chest X-Ray 08/06/23 07:51 XR chest 1V portable HISTORY: 83 years-old Female worsening hypoxia acute shortness of breath COMPARISON: 08/05/2023 TECHNIQUE: AP view of the chest FINDINGS: Cardiac silhouette is enlarged. Pulmonary vascular congestion with interstitial coarsening. Small to moderate pleural effusions with bibasilar consolidation, mildly improved on the right. Pulmonary emphysema. No significant change from yesterday's exam. No pneumothorax. Degenerative changes of the shoulders and spine. IMPRESSION: 1. Cardiomegaly with pulmonary edema. 2. Layering pleural effusions with persistent bibasilar consolidation, mildly improved on the right. 3. Emphysema. ACT 112: Negative or not required by law. The above report was generated using voice recognition software. It may contain grammatical, syntax or spelling errors. Electronically signed by: Stephen Rapp M.D. 08/06/2023 9:[address] 08/06/23 08:42 CT chest diagnostic wo con CT DOSE: 720.75 mGy.cm CLINICAL HISTORY: 83 years-old Female with acute on chronic resp. failure. Acute on chronic respiratory failure. TECHNIQUE: Multiaxial CT images of the chest were performed without contrast. A dose lowering technique was utilized adhering to the principles of ALARA. COMPARISON: Chest radiograph of same day, chest CT 10/04/2022. FINDINGS: Unremarkable thyroid. Mild mediastinal lymphadenopathy. A precarinal lymph node on image 100 measures 1.1 x 1.7 cm, mildly increased in size from prior. These lymph nodes are likely reactive. Mild cardiomegaly. Trace pericardial effusion. Extensive coronary artery calcifications. Atherosclerosis of the aorta. Mild dilation of the pulmonary artery suggestive of pulmonary arterial hypertension. Ydyzh-va-dfvgzbpb right with small left pleural effusions. No pneumothorax. Intralobular septal thickening. Moderate pulmonary emphysema with bronchial wall thickening. Mild deep and right basilar atelectasis. Left lower lobe mucous plugging with consolidation and volume loss throughout the basal segments of the left lower lobe. No suspicious pulmonary nodules or masses. Four mm fissural nodule of the left upper lung on image 29 is unchanged suggestive of a benign lymph node. Mild left-sided hydroureteronephrosis with bilateral perinephric and periureteral stranding. Cortical thinning of the kidneys with bilateral renal vascular calcifications. There is a nonobstructing 1.4 cm calculus of the interpolar left kidney. Mild nonspecific distal esophageal wall thickening. Debris is noted within the agw-se-kikdlj esophageal lumen. Degenerative changes of the shoulders and spine. Unchanged appearance of the chronic thoracolumbar compression deformities. Sigmoidal thoracolumbar scoliosis. IMPRESSION: 1. Cardiomegaly with pulmonary edema, trace pericardial, small left and boigx-vh-cjffguat right pleural effusions. 2. Left lower lobe mucous plugging with associated volume loss and consolidation, which may represent atelectasis versus pneumonia. 3. Debris is noted within the esophagus. Correlate clinically to exclude gastroesophageal reflux. 4. Pulmonary emphysema. 5. Left nephrolithiasis with partially imaged hydroureteronephrosis. Findings could be correlated with follow-up KUB and urinalysis to exclude an obstructing ureteral calculus. ACT 112: Negative or not required by law. Dictated: 08/06/2023 9:38 AM Transcribed: 08/06/2023 10:01 AM Indra [id number] [email or web address] Electronically signed by: Stephen Rapp M.D. 08/06/2023 10:22 AM Chest X-Ray 08/07/23 09:05 XR chest 1V not portable HISTORY: worsening shortness of breath COMPARISON: Chest 08/06/2023. FINDINGS: No pneumothorax. The heart remains mildly enlarged. There are calcifications within the aortic knob. No acute fractures identified. Mild congestive change and bilateral pleural effusions, left greater than right, persist. There are patchy bibasilar densities again noted. IMPRESSION: 1. No change in the mild congestive change and bilateral pleural effusions. 2. Patchy bibasilar densities persist and may represent atelectasis or pneumonia. ACT 112: Negative or not required by law. Electronically signed by: Demetri Workman M.D. 08/07/2023 10:08 AM KUB X-Ray 08/07/23 09:06 KUB HISTORY: Abnormal chest CT. Left-sided hydroureteronephrosis. r/o obstructing calculus COMPARISON: Chest CT 08/06/2023. Abdomen and pelvis CT 08/22/2020. FINDINGS: The bowel gas pattern is unremarkable. There are no dilated loops of small bowel to suggest an obstruction. There is a 13 mm stone within the left kidney. Multiple additional calcifications within the renal shadows may represent a combination of renal stones or vascular calcifications. No ureteral calculi identified. Of note, the left-sided hydronephrosis seen on the recent chest CT is similar to the 08/22/[address] Levoscoliosis of the lumbar spine. Vascular calcification noted within the pelvis. No pneumoperitoneum or pneumatosis. IMPRESSION: 1. Multiple calcifications overlying the renal shadows. This likely represents a combination of renal stones and vascular calcifications. A dominant left renal stone measures 13 mm. 2. No ureteral calculi identified. Of note, the left-sided hydronephrosis seen on the recent chest CT is similar to the 08/22/[address] ACT 112: Negative or not required by law. Electronically signed by: Demetri Workman M.D. 08/07/2023 10:14 AM Pending Results Patient Have Any Pending Studies at Discharge: No Discharge Instructions Given to Patient (Per Discharging Provider) Ms. Beaulieu, You were admitted once more with trouble breathing. Your were seen by the lung doctor and they recommended treating you with IV Lasix which we did. Your symptoms improved and we are are discharging you to [facility]. Please take your medications as prescribed. Please keep close follow up with your primary care provider after discharge. Please also keep close follow up with both pulmonology and Cardiology after discharge. Please do not hesitate to come back to the emergency room if your symptoms worsen or return. It was a pleasure taking care of you while you were here. Total Time Total Time Spent Total Time Spent (In Minutes): > 30 minutes
[2023-08-11 12:53] VITALS: BP 126/51; PULSE 59
--- NOTE | 2023-08-15 14:49 | Coding Query ---
CONGESTIVE HEART FAILURE To Promote full compliance with coding requirements relating to patient care, physician participation is requested in all cases of line erector apprentice uncertainty. Please assist us with the following questions. A diagnosis of Congestive Heart Failure is documented in the patient's medical record. To accurately code this diagnosis and to compare patient severity, we ask that you specify the type of heart failure by placing an X within the parenthesis (x). SYSTOLIC HEART FAILURE ( ) Acute ( ) Chronic ( ) Acute on Chronic ( ) Rheumatic ( ) Unknown DIASTOLIC HEART FAILURE ( ) Acute ( ) Chronic (x ) Acute on Chronic ( ) Rheumatic ( ) Unknown COMBINED SYSTOLIC AND DIASTOLIC HEART FAILURE ( ) Acute ( ) Chronic ( ) Acute on Chronic ( ) Rheumatic ( ) Unknown Was the CHF Present On Admission? Please check the appropriate box: (x ) Present on Admission (this re-admission) ( ) Not Present On Admission ( ) Clinically undetermined Thank you PEREZ Juan [facility]
== END 2023-08-11 13:50 | DRG 291 ==
LOC: ED 18:21 → SUATTDRO 18:42 → 2N 18:42
DX: N17.9 Acute kidney failure, unspecified; Z88.1 Allergy status to other antibiotic agents; I13.0 Hypertensive heart and chronic kidney disease with heart failure and stage 1 through stage 4 chronic kidney disease, or unspecified chronic kidney disease; I44.0 Atrioventricular block, first degree; I73.9 Peripheral vascular disease, unspecified; Z99.81 Dependence on supplemental oxygen; I48.0 Paroxysmal atrial fibrillation; R39.15 Urgency of urination; Z93.3 Colostomy status; J44.9 Chronic obstructive pulmonary disease, unspecified; B95.2 Enterococcus as the cause of diseases classified elsewhere; Z79.01 Long term (current) use of anticoagulants; Z88.8 Allergy status to other drugs, medicaments and biological substances; N18.30 Chronic kidney disease, stage 3 unspecified; Z87.891 Personal history of nicotine dependence; D62 Acute posthemorrhagic anemia; J96.21 Acute and chronic respiratory failure with hypoxia; N39.0 Urinary tract infection, site not specified; F17.210 Nicotine dependence, cigarettes, uncomplicated; I44.2 Atrioventricular block, complete; I50.33 Acute on chronic diastolic (congestive) heart failure; K58.9 Irritable bowel syndrome, unspecified; J90 Pleural effusion, not elsewhere classified; G47.33 Obstructive sleep apnea (adult) (pediatric); N13.6 Pyonephrosis; Z60.2 Problems related to living alone; Z88.2 Allergy status to sulfonamides

== ENCOUNTER 2023-08-28 18:27 | Inpatient (IN) ==
--- NOTE | 2023-08-28 18:44 | Emergency Department Note ---
Impression & Plan Acute respiratory failure with hypoxia, COPD with acute exacerbation, CKD (chronic kidney disease), stage III, Influenza A virus subtype H1 2009 pandemic strain present ED Provider Note NAME: ANGELA BAILON AGE: 83 SEX: F ARRIVES VIA: Ambulance INFORMANT: Patient ED PROVIDER(S): Artis Loyd MD CHIEF COMPLAINT: Shortness of breath PLAN: Disposition: Admit MEDICAL DECISION MAKING: The patient is a pleasant 83-year-old woman with a past medical history of chronic respiratory failure with hypoxia and hypercapnia, COPD, paroxysmal atrial fibrillation, hypertension, hyperlipidemia, FRANCIS, intermittent third- degree heart block which resolved following holding her flecainide and verapamil (hospitalization from 08/05/2023-08/11/2023) who presents to the emergency department via EMS for evaluation of worsening shortness of breath and dizziness since yesterday. She otherwise reports feeling and her normal state of health. This is during the week after being discharged from a rehab admission following a recent hospitalization. She denies any fevers, nausea, vomiting or change in her ostomy output. She does report noticing some lower abdominal discomfort in her lower abdomen where she does reports she has had a yeast/rash that she has been applying cream to. She denies any urinary symptoms. She reports that her home health nurse came this morning and set out her medications but she reports she fell asleep in did not take these which include her morning Lasix as well as her Ellipta and budesonide inhalers. On evaluation the patient is chronically ill-appearing but no distress, afebrile with stable vital signs. She exhibits mild increased work of breathing but is no acute distress. She appears euvolemic to slightly hypervolemic. Lungs with diffuse wheezes bilaterally. Abdomen is nontender with soft left parastomal hernia and normal ostomy output. EKG without overt acute ischemia. CXR shows bilateral interstitial opacities and likely small bilateral pleural effusion per my preliminary independent interpretation. WBC within normal limits without neutrophil predominance and no left shift. H/H similar to prior. Platelets within normal limits. VBG with pH 7.34 and mild hypercapnia with pCO2 55. Creatinine 1.37, similar to prior range of values. LFTs unremarkable. High-sensitivity troponin 10.9, within normal limits. BNP elevated to 213 decreased from prior nonspecific. Procalcitonin is not elevated. TSH within limits. UA without convincing evidence of infection. Respiratory BioFire was performed and was positive for influenza A H1 2009. Tamiflu ordered. Upon reevaluation patient did have improved work of breathing following Solu-Medrol, guaifenesin and hour-long DuoNeb. Escalation of care and treatment with BiPAP had been considered on arrival however given improvement deferred at this time. Additional treatment with 20 mg of IV Lasix ordered given patient did not take this today and a component of fluid retention may be contributing to symptoms. Patient agrees with plan for admission for further management. Case was discussed with Carrillo Walls hospitalist who will evaluate the patient for admission. Triage Nursing notes reviewed and agree them. Prior/external medical records reviewed Vital Signs: reviewed Differential diagnosis: Reactive airway disease, pneumonia, pneumothorax, COPD, CHF, infections, cardiac ischemia, pulmonary embolism, musculoskeletal, gastrointestinal, as well as other pathologies. ER treatment provided: See below. Diagnostics interpreted by me: ECG: Sinus rhythm with sinus arrhythmia, first-degree block, 74 bpm, no ectopy, no overt ST elevation or depression, QTc 450, QRS 68. Cardiac Monitoring: An order for continuous cardiac monitoring was placed and demonstrated Sinus rhythm with sinus arrhythmia, first-degree block, 74 bpm, no ectopy. Laboratory studies: See below Imaging studies: See below Consultation(s): Case was discussed with [facility] who will evaluate the patient for admission. HPI: The patient is a pleasant 83-year-old woman with a past medical history of chronic respiratory failure with hypoxia and hypercapnia, COPD, paroxysmal atrial fibrillation, hypertension, hyperlipidemia, FRANCIS, intermittent third- degree heart block which resolved following holding her flecainide and verapamil (hospitalization from 08/05/2023-08/11/2023) who presents to the emergency department via EMS for evaluation of worsening shortness of breath and dizziness since yesterday. She otherwise reports feeling and her normal state of health. This is during the week after being discharged from a rehab admission following a recent hospitalization. She denies any fevers, nausea, vomiting or change in her ostomy output. She does report noticing some lower abdominal discomfort in her lower abdomen where she does reports she has had a yeast/rash that she has been applying cream to. She denies any urinary symptoms. She reports that her home health nurse came this morning and set out her medications but she reports she fell asleep in did not take these which include her morning Lasix as well as her Ellipta and budesonide inhalers. ROS: See above HPI for pertinent positives & negatives. A total of 10 systems reviewed and were otherwise negative. VITALS:See Below PHYSICAL EXAMINATION: GENERAL: Awake, alert, chronically ill-appearing but no acute distress. HENT: Normocephalic, atraumatic. Oropharynx unremarkable. EYES: Normal conjunctiva. Sclera non-icteric. NECK: Supple. No nuchal rigidity. FROM. No JVD. RESPIRATORY: Diffuse wheezes of bilateral lung garza with mild increased work of breathing but no acute distress. CARDIAC: Regular rate, normal rhythm. Extremities warm and well perfused. Pulses equal. ABDOMEN: Soft, nontender with soft left parastomal hernia and normal ostomy output. No rebound or guarding. MUSCULOSKELETAL: Chest examination reveals no tenderness. The back is symmetrical on inspection without obvious abnormality. There is no CVA tenderness to palpation. No joint edema. LOWER EXTREMITIES: Calves are equal size bilaterally and non-tender. No edema. No discoloration. NEURO: Normal sensorium. No sensory or motor deficits noted. SKIN: No jaundice noted. Mild yeast dermatitis underneath abdominal pannus. ED COURSE: Critical Care: I have personally spent greater than 35 minutes of critical care time in the direct management of this patient. This includes bedside care, interpretation of diagnostic studies, and testing, discussion with consultants, patient, and family members, and other required patient management activities. This 35 minutes is in excess of all separately billable procedures. Artis Loyd MD Past Med/Surg History Medical History FRANCIS (obstructive sleep apnea) Osteoarthritis Chronic back pain Diverticular disease Skin cancer of nose 1970s--unsure which kind, removed in office On anticoagulant therapy xarelto daily On home oxygen therapy 4L N/C PRN PVD (peripheral vascular disease) PAF (paroxysmal atrial fibrillation) on xarelto/flecainide--follows with Dr. Savage Depression Macular degeneration Osteoporosis CKD (chronic kidney disease), stage III HTN (hypertension) HLD (hyperlipidemia) Multiple pulmonary nodules Tobacco dependence due to cigarettes 5 per day Chronic bronchitis COPD (chronic obstructive pulmonary disease) inhaler daily/prn, nebulizer daily/prn; continuous oxygen 3L Colostomy in place Diverticulitis Surgical History History of appendectomy taken out during resection of bowel History of colonoscopy History of tooth extraction History of cataract extraction with lens replacement bilateral History of tonsillectomy History of tubal ligation History of resection of large bowel (~10/2018) perforated bowel d/t diverticulitis History of creation of ostomy 10/2018 Family History Father Pancreatic cancer Mother Stroke Other No family history of adverse response to anesthesia Social History Smoking Status: Former smoker Tobacco Type: Cigarettes Age Started Using Tobacco: 22; Cigarettes Per Day: 3; Smoking End Date: quit earlier this month, 08/26; Second Hand Exposure: Yes (hx growing up); Do You Dip or Chew Tobacco: No; Hx Alcohol Use: No Hx Substance Use: No Preferred Language: Ivorian Communication Ability: Effective Generation Engineer Required: No Beliefs That Will Affect Care: None marital status: / Current Living Situation: Alone Current Living Situation Comment: Mobile home, [address] Other Information That Helps Us Care for You: No Feels Safe at Home: Yes Safety Concerns: Feels Safe At This Time Assistive Devices: None Allergies Allergies Allergy/AdvReac Type Severity Reaction Status Date / Time amoxicillin Allergy Intermediate Rash Verified 08/05/23 18:59 cephalexin [From Keflex] Allergy Intermediate Rash Verified 08/05/23 18:59 cilostazol [From Pletal] Allergy Intermediate Rash Verified 08/05/23 18:59 ciprofloxacin [From Cipro] Allergy Intermediate Rash Verified 08/05/23 18:59 diltiazem Allergy Intermediate Rash Verified 08/05/23 18:59 felodipine Allergy Intermediate Rash Verified 08/05/23 18:59 meloxicam Allergy Intermediate Rash Verified 08/05/23 18:59 sulfamethoxazole Allergy Intermediate Rash Verified 08/05/23 18:59 [From Bactrim] trimethoprim [From Bactrim] Allergy Intermediate Rash Verified 08/05/23 18:59 Home Meds Home Medications Medication Instructions Recorded Confirmed calcium carbonate 500 mg-vitamin 1 tab PO QPM 03/10/19 08/28/23 D3 10 mcg (400 unit) tablet (Calcium 500 + D) escitalopram oxalate 10 mg tablet 10 mg PO QAM 03/10/19 08/28/23 (Lexapro) ferrous sulfate 325 mg (65 mg 325 mg PO QAM 03/10/19 08/28/23 iron) tablet vit C 250 mg-vit E 90 mg-zinc 40 1 tab PO QAM 03/10/19 08/28/23 mg-copper 1 [id number] capsule (PreserVision AREDS-2) ascorbic acid (vitamin C) 500 mg 500 mg PO QAM 12/08/20 08/28/23 tablet (Vitamin C) cyclosporine 0.05 % eye drops in a 1 drp OPB BID 12/08/20 08/28/23 dropperette (Restasis) rivaroxaban 15 mg tablet (Xarelto) 15 mg PO QPM 11/05/21 08/28/23 mesalamine 1.2 gram tablet,delayed 3.6 g PO QAM 03/14/23 08/28/23 release acetaminophen 325 mg tablet 325 mg PO Q6H PRN Pain 07/25/23 08/28/23 (Tylenol) ipratropium 0.5 mg-albuterol 3 mg 3 ml inhalation Q4H PRN Wheezing 07/25/23 08/28/23 (2.5 mg base)/3 mL nebulization soln omega-3 fatty acids 500 mg capsule 500 mg PO QAM 07/25/23 08/28/23 solifenacin 5 mg tablet 5 mg PO QAM 07/25/23 08/28/23 triamcinolone acetonide 0.05 % 1 applic topical BID PRN AFFECTED 07/25/23 08/28/23 topical ointment AREA furosemide 20 mg tablet 20 mg PO QAM 08/28/23 08/28/23 Previous Rx's Medication Instructions Recorded guaifenesin 600 mg tablet, 600 mg PO BID #60 tabs 07/16/20 extended release 12 hr (Mucinex) Portable Oxygen E0431 #1 ea 03/25/21 Auto Titrating CPAP #1 ea 02/03/23 CPAP Supplies #1 ea 02/03/23 albuterol sulfate 90 mcg/actuation 1 inh inhalation QID PRN Shortness 02/03/23 aerosol inhaler (ProAir HFA) Of Breath #8.5 grams budesonide 0.25 mg/2 mL suspension 0.25 mg (2 mL) inhalation BID #60 02/03/23 for nebulization mL umeclidinium 62.5 mcg-vilanterol 1 inh inhalation QAM #60 ea 02/03/23 25 mcg/actuation powdr for inhalation (Anoro Ellipta) lisinopril 10 mg tablet 10 mg PO QAM #30 tabs 08/05/23 pantoprazole 40 mg tablet,delayed 40 mg PO QAM #30 tabs 08/05/23 release verapamil 120 mg tablet,extended 120 mg PO QAM #30 tabs 08/05/23 release (Calan SR) Results & Data (ED) Vital Signs Vital Signs - 24 hr 08/28/23 18:33 08/28/23 18:33 08/28/23 18:48 Temperature 36.7 C Temperature Source Oral Pulse Rate 79 72 Pulse Rate [Finger] Pulse Rate from SpO2 Sensor 72 Respiratory Rate 22 28 H Respiratory Effort / Characteristics Non-Labored Spontaneous Non-Labored Respiratory Depth Normal Blood Pressure 159/73 H Blood Pressure Mean 101 Pulse Oximetry 98 99 Oxygen Delivery Method Nasal Cannula Oxygen Flow Rate 5 Sepsis Recent Fever Within 48 Hours No Sepsis New/Unexplained Change in Mental Status N/A Sepsis Action Taken by Nursing No Action Required 08/28/23 18:49 08/28/23 18:50 08/28/23 19:00 Temperature Temperature Source Pulse Rate 69 70 81 Pulse Rate [Finger] Pulse Rate from SpO2 Sensor 71 Respiratory Rate 24 19 Respiratory Effort / Characteristics Respiratory Depth Blood Pressure 160/80 H Blood Pressure Mean 105 Pulse Oximetry 99 98 Oxygen Delivery Method Nasal Cannula Oxygen Flow Rate 3 Sepsis Recent Fever Within 48 Hours Sepsis New/Unexplained Change in Mental Status Sepsis Action Taken by Nursing 08/28/23 19:00 08/28/23 19:10 08/28/23 19:14 Temperature Temperature Source Pulse Rate 81 70 Pulse Rate [Finger] Pulse Rate from SpO2 Sensor 80 71 Respiratory Rate 19 29 H Respiratory Effort / Characteristics Respiratory Depth Blood Pressure Blood Pressure Mean Pulse Oximetry 98 97 95 Oxygen Delivery Method Nasal Cannula Oxygen Flow Rate 3 Sepsis Recent Fever Within 48 Hours Sepsis New/Unexplained Change in Mental Status Sepsis Action Taken by Nursing 08/28/23 19:18 08/28/23 19:20 08/28/23 19:30 Temperature Temperature Source Pulse Rate 67 72 Pulse Rate [Finger] 72 Pulse Rate from SpO2 Sensor 69 Respiratory Rate 26 H 28 H 31 H Respiratory Effort / Characteristics Spontaneous Short of Breath Respiratory Depth Blood Pressure 158/82 H Blood Pressure Mean 115 Pulse Oximetry 96 100 100 Oxygen Delivery Method Nasal Cannula Oxygen Flow Rate 3 Sepsis Recent Fever Within 48 Hours Sepsis New/Unexplained Change in Mental Status Sepsis Action Taken by Nursing 08/28/23 19:30 08/28/23 19:40 08/28/23 19:50 Temperature Temperature Source Pulse Rate 72 72 74 Pulse Rate [Finger] Pulse Rate from SpO2 Sensor 72 72 74 Respiratory Rate 31 H 32 H 34 H Respiratory Effort / Characteristics Respiratory Depth Blood Pressure Blood Pressure Mean Pulse Oximetry 100 100 100 Oxygen Delivery Method Oxygen Flow Rate Sepsis Recent Fever Within 48 Hours Sepsis New/Unexplained Change in Mental Status Sepsis Action Taken by Nursing 08/28/23 20:00 08/28/23 20:00 08/28/23 20:10 Temperature Temperature Source Pulse Rate 81 81 77 Pulse Rate [Finger] Pulse Rate from SpO2 Sensor 81 77 Respiratory Rate 34 H 34 H 33 H Respiratory Effort / Characteristics Respiratory Depth Blood Pressure 172/76 H Blood Pressure Mean 124 Pulse Oximetry 100 100 100 Oxygen Delivery Method Oxygen Flow Rate Sepsis Recent Fever Within 48 Hours Sepsis New/Unexplained Change in Mental Status Sepsis Action Taken by Nursing 08/28/23 20:20 08/28/23 20:30 08/28/23 20:30 Temperature Temperature Source Pulse Rate 83 85 85 Pulse Rate [Finger] Pulse Rate from SpO2 Sensor 83 84 Respiratory Rate 36 H 31 H 31 H Respiratory Effort / Characteristics Respiratory Depth Blood Pressure 166/78 H Blood Pressure Mean 115 Pulse Oximetry 100 100 100 Oxygen Delivery Method Oxygen Flow Rate Sepsis Recent Fever Within 48 Hours Sepsis New/Unexplained Change in Mental Status Sepsis Action Taken by Nursing 08/28/23 20:40 08/28/23 20:50 08/28/23 21:00 Temperature Temperature Source Pulse Rate 85 85 88 Pulse Rate [Finger] Pulse Rate from SpO2 Sensor 86 87 88 Respiratory Rate 29 H 27 H 30 H Respiratory Effort / Characteristics Respiratory Depth Blood Pressure Blood Pressure Mean Pulse Oximetry 95 94 94 Oxygen Delivery Method Oxygen Flow Rate Sepsis Recent Fever Within 48 Hours Sepsis New/Unexplained Change in Mental Status Sepsis Action Taken by Nursing 08/28/23 21:02 08/28/23 21:02 08/28/23 21:10 Temperature Temperature Source Pulse Rate 88 88 87 Pulse Rate [Finger] Pulse Rate from SpO2 Sensor 91 H 85 Respiratory Rate 30 H 34 H 31 H Respiratory Effort / Characteristics Respiratory Depth Blood Pressure 94/66 L Blood Pressure Mean 70 Pulse Oximetry 94 94 93 Oxygen Delivery Method Oxygen Flow Rate Sepsis Recent Fever Within 48 Hours Sepsis New/Unexplained Change in Mental Status Sepsis Action Taken by Nursing 08/28/23 21:20 08/28/23 21:30 08/28/23 21:30 Temperature Temperature Source Pulse Rate 82 88 88 Pulse Rate [Finger] Pulse Rate from SpO2 Sensor 83 89 Respiratory Rate 27 H 23 23 Respiratory Effort / Characteristics Respiratory Depth Blood Pressure 167/69 H Blood Pressure Mean 120 Pulse Oximetry 93 93 93 Oxygen Delivery Method Oxygen Flow Rate Sepsis Recent Fever Within 48 Hours Sepsis New/Unexplained Change in Mental Status Sepsis Action Taken by Nursing 08/28/23 21:40 08/28/23 21:42 08/28/23 21:42 Temperature Temperature Source Pulse Rate 87 86 86 Pulse Rate [Finger] Pulse Rate from SpO2 Sensor 83 86 Respiratory Rate 18 29 H 29 H Respiratory Effort / Characteristics Respiratory Depth Blood Pressure 169/73 H Blood Pressure Mean 98 Pulse Oximetry 92 92 92 Oxygen Delivery Method Oxygen Flow Rate Sepsis Recent Fever Within 48 Hours Sepsis New/Unexplained Change in Mental Status Sepsis Action Taken by Nursing 08/28/23 21:50 Temperature Temperature Source Pulse Rate 87 Pulse Rate [Finger] Pulse Rate from SpO2 Sensor 86 Respiratory Rate 20 Respiratory Effort / Characteristics Respiratory Depth Blood Pressure Blood Pressure Mean Pulse Oximetry 93 Oxygen Delivery Method Oxygen Flow Rate Sepsis Recent Fever Within 48 Hours Sepsis New/Unexplained Change in Mental Status Sepsis Action Taken by Nursing Laboratory Data Attestation: I reviewed the patient's lab results. 08/28/23 18:48 08/28/23 18:48 Lab Results 08/28/23 08/28/23 Range/Units 18:48 20:22 WBC 7.25 (4.8-10.8) K/ul RBC 3.04 L (4.20-5.40) M/uL Hgb 8.7 L (12.0-16.0) g/dl Hct 29.4 L (37.0-47.0) % MCV 96.7 (80.0-100.0) fL MCH 28.6 (25.0-34.0) pg MCHC 29.6 L (32.0-36.0) g/dL RDW Std Deviation 61.2 H (36.4-46.3) fL RDW Coeff of Lynn 17.5 H (11.5-14.5) % Plt Count 263 (130-400) K/uL MPV 9.4 (9.4-12.4) fL Immature Gran % (Auto) 1.7 % Neut % (Auto) 59.5 % Lymph % (Auto) 26.6 % [place] % (Auto) 9.8 % Eos % (Auto) 2.1 % Baso % (Auto) 0.3 % Neut # (Auto) 4.32 (1.40-6.50) K/uL Lymph # (Auto) 1.93 (1.20-3.40) K/uL [place] # (Auto) 0.71 H (0.11-0.59) K/uL Eos # (Auto) 0.15 (0.00-0.50) K/uL Baso # (Auto) 0.02 (0.00-0.20) K/uL Immature Gran # (Auto) 0.12 (0.01-0.20) K/uL PT Cancelled 10.9 INR Cancelled 1.0 VBG pH 7.34 L (7.36-7.41) VBG pCO2 55 H (38-50) mmHg VBG pO2 22 mmHg VBG HCO3 30 mmol/L VBG O2 Saturation < 60.0 % VBG Base Excess 2.6 mEq/L Sodium 143 (136-145) mmol/L Potassium 3.9 (3.5-5.1) mmol/L Chloride 108 H (98-107) mmol/L Carbon Dioxide 29 (21-32) mmol/L Anion Gap 6 (3-11) BUN 15 (6-23) mg/dl Creatinine 1.37 H (0.6-1.2) mg/dl Est Cr Clr Drug Dosing 32.1 ml/min Est GFR ( Amer) 41.8 ml/min Est GFR (Non-Af Amer) 36.1 ml/min BUN/Creatinine Ratio 10.9 (10-20) Glucose 120 H (70-99(Fasting)) mg/dl Calcium 8.2 L (8.6-10.3) mg/dl Phosphorus 3.3 (2.5-4.9) mg/dl Magnesium 2.1 (1.7-2.4) mg/dl Total Bilirubin 0.3 (0.2-1.0) mg/dl AST 15 (13-39) U/L ALT 9 (7-52) U/L Alkaline Phosphatase 71 (34-104) U/L Troponin I High Sens 10.9 (0-14) pg/ml B-Natriuretic Peptide 213 H (0-100) pg/ml Total Protein 7.3 (6.0-8.3) gm/dl Albumin 3.4 (3.4-5.0) gm/dl Globulin 3.9 (2.5-4.0) gm/dl Albumin/Globulin Ratio 0.9 (0.9-2) Lipase 62 (11-82) U/L Procalcitonin < 0.02 (0-0.5) ng/ml TSH 1.912 (0.300-4.500) uIu/ml Nasal Influ A H1 2008 PCR DETECTED A (NotDetected) Adenovirus (PCR) Not Detected (NotDetected) B. pertussis DNA (PCR) Not Detected (NotDetected) B.parapertussis DNA PCR Not Detected (NotDetected) C. pneumoniae DNA (PCR) Not Detected (NotDetected) Coronavirus OC43 (PCR) Not Detected (NotDetected) Coronavirus HKU1 (PCR) Not Detected (NotDetected) Coronavirus 229E (PCR) Not Detected (NotDetected) SARS-CoV-2 (PCR) Not Detected (NotDetected) Coronavirus NL63 (PCR) Not Detected (NotDetected) Human Metapneumovir PCR Not Detected (NotDetected) Influenza Type B (PCR) Not Detected (NotDetected) M. pneumoniae (PCR) Not Detected (NotDetected) Parainfluenza 1 (PCR) Not Detected (NotDetected) Parainfluenza 2 (PCR) Not Detected (NotDetected) Parainfluenza 3 (PCR) Not Detected (NotDetected) Parainfluenza 4 (PCR) Not Detected (NotDetected) RSV (PCR) Not Detected (NotDetected) Entero/Rhino (PCR) Not Detected (NotDetected) Administered Medications Ipratropium [place] (Ipratropium [place] Neb Soln 0.02% 0.5mg/2.5ml Vial) 0.5 mg INH Q6R [place] Stop: 09/28/23 00:59 Last Admin: 08/29/23 01:12 Dose: 0.5 mg Documented By: SUKHJINDER Levalbuterol HCl (Levalbuterol 1.25 Mg/3 Ml Neb) 1.25 mg NEB Q6R [facility] Stop: 09/28/23 00:59 Last Admin: 08/29/23 01:12 Dose: 1.25 mg Documented By: SUKHJINDER Discontinued Medications Albuterol (Albut/Ipratrop 3mg/0.5mg Neb 3 Ml Vial) 12 ml NEB ONE ONE; Protocol Stop: 08/28/23 18:38 Last Admin: 08/28/23 19:18 Dose: 12 ml Documented By: SUKHJINDER Furosemide (Furosemide Inj 20 Mg/2 Ml Vial) 20 mg IV ONE ONE Stop: 08/28/23 20:33 Last Admin: 08/28/23 20:50 Dose: 20 mg Documented By: DISHA Guaifenesin (Guaifenesin 600 Mg Tabcr) 600 mg PO NOW STA Stop: 08/28/23 18:37 Last Admin: 08/28/23 19:07 Dose: 600 mg Documented By: DISHA Albumin Human (Albumin 25%) 25 gm in 100 mls @ 50 mls/hr IV ONE ONE Stop: 08/28/23 23:14 Last Admin: 08/28/23 21:44 Dose: Not Given Documented By: DISHA Methylprednisolone (Methylprednisolone 125 Mg/2 Ml Vial) 125 mg IV NOW STA Stop: 08/28/23 18:37 Last Admin: 08/28/23 19:07 Dose: 125 mg Documented By: DISHA Oseltamivir Phosphate (Oseltamivir Phosphate 75 Mg Cap) 75 mg PO NOW STA; Protocol Stop: 08/28/23 20:21 Last Admin: 08/28/23 20:50 Dose: 75 mg Documented By: DISHA Rivaroxaban (Rivaroxaban 15 Mg Tab) 15 mg PO NOW STA Stop: 08/29/23 01:18 Last Admin: 08/29/23 01:43 Dose: 15 mg Documented By: CHARISSE Verapamil HCl (Verapamil Hcl 120 Mg Tabcr) 120 mg PO NOW STA Stop: 08/28/23 21:43 Last Admin: 08/28/23 22:43 Dose: 120 mg Documented By: DISHA Imaging Data Radiologist's Impression: Chest X-Ray 08/28/23 18:36 XR chest 1V portable CLINICAL HISTORY: Chest pain, nonspecific TECHNIQUE: Single frontal radiograph of the chest was obtained. Comparison: Comparison is made to chest radiograph 08/07/[address] abdomen pelvis 08/06/2023 FINDINGS: No lines and tubes are seen. Calcified aortic knob is seen. Reticular interstitial opacities are seen. Small bilateral pleural effusions are suggested. IMPRESSION: Likely small bilateral pleural effusions. Interstitial lung disease is seen. ACT 112: Negative or not required by law. Electronically signed by: Yoel Elena M.D. 08/28/2023 7:20 PM Abdomen/Pelvis CT 08/28/23 21:54 Exam(s): CT ABDOMEN + PELVIS Without Contrast EXAM: CT Abdomen and Pelvis Without Intravenous Contrast CLINICAL HISTORY: Reason for exam: L abd pain. TECHNIQUE: Axial computed tomography images of the abdomen and pelvis without intravenous contrast. Automated exposure control was utilized for the study. A dose lowering technique was utilized adhering to the principles of ALARA. COMPARISON: No relevant prior studies available. FINDINGS: Lung bases: Atelectasis at the lung bases. ABDOMEN: Liver: Unremarkable. Gallbladder and bile ducts: Unremarkable. No calcified stones. No ductal dilation. Pancreas: Unremarkable. No ductal dilation. Spleen: Unremarkable. No splenomegaly. Adrenals: Unremarkable. No mass. Kidneys and ureters: Mild fullness of the LEFT and a click consistent. No obstructive uropathy. Bilateral nonobstructing renal calculi measuring up to 12 mm in the LEFT lower pole. Stomach and bowel: Large LEFT lower quadrant parastomal hernia measures approximately 10.2 x 14.0 cm and contains multiple large and small bowel loops. No bowel obstruction. No mucosal thickening. PELVIS: Appendix: No findings to suggest acute appendicitis. Bladder: Unremarkable. No stones. Reproductive: Atrophy of the uterus. ABDOMEN and PELVIS: Intraperitoneal space: Unremarkable. No free air. No significant fluid collection. Bones/joints: Degenerative changes of the spine. No acute fracture. No dislocation. Soft tissues: See above. Vasculature: Atherosclerotic changes of the aorta. No abdominal aortic aneurysm. Lymph nodes: Unremarkable. No enlarged lymph nodes. IMPRESSION: 1. Large LEFT lower quadrant parastomal hernia measures approximately 10. 2 x 14.0 cm and contains multiple large and small bowel loops. No bowel obstruction. 2. Bilateral nonobstructing renal calculi measuring up to 12 mm in the LEFT lower pole. Electronically signed by: Tato Tapia MD 08/28/23 23:16 PM Discharge Plan Visit Data Chief Complaint: Shortness of Breath/Dyspnea Stated Complaint: BREATHING DIFFICULTY/ ED Provider: Artis Loyd Discharge Problem: Acute respiratory failure with hypoxia, COPD with acute exacerbation, CKD (chronic kidney disease), stage III, Influenza A virus subtype H1 2009 pandemic strain present Discharge Instructions Interventions: ED Discharge Assessment Last Done: 08/29/23 00:37 Discharge Problem: CKD (chronic kidney disease), stage III Qualifiers: Chronic kidney disease stage 3 subtype: unspecified whether 3a or 3b Qualified Code(s): N18.30 - Chronic kidney disease, stage 3 unspecified
[2023-08-28] MEDS: guaiFENesin 600 MG TABCR PO STA (19:07)
[2023-08-28] MEDS: methylPREDNISolone 125 MG/2 ML VIAL IV STA (19:07)
[2023-08-28 19:10] LABS: Base Excess VBG 2.6 mEq/L; HCO3 VBG 30 mmol/L; Oxygen Saturation VBG < 60.0 %; PCO2 VBG 55 mmHg (38-50); PO2 VBG 22 mmHg; pH VBG 7.34 (7.36-7.41)
[2023-08-28 19:15] LABS: Basophils # (auto) 0.02 K/uL (0.00-0.20); Basophils % (auto) 0.3 %; Eosinophils # (auto) 0.15 K/uL (0.00-0.50); Eosinophils % (auto) 2.1 %; Hematocrit (blood only) 29.4 % (37.0-47.0); Hemoglobin 8.7 g/dl (12.0-16.0); Immature Granulocytes # (auto) 0.12 K/uL (0.01-0.20); Immature Granulocytes % (auto) 1.7 %; Lymphocytes # (auto) 1.93 K/uL (1.20-3.40); Lymphocytes % (auto) 26.6 %; Mean Corpuscular Hemoglobin 28.6 pg (25.0-34.0); Mean Corpuscular Hgb Conc 29.6 g/dL (32.0-36.0); Mean Corpuscular Volume 96.7 fL (80.0-100.0); Mean Platelet Volume 9.4 fL (9.4-12.4); Monocytes # (auto) 0.71 K/uL (0.11-0.59); Monocytes % (auto) 9.8 %; Neutrophils # (auto) 4.32 K/uL (1.40-6.50); Neutrophils % (auto) 59.5 %; Platelet Count 263 K/uL (130-400); RDW Coefficient of Variation 17.5 % (11.5-14.5); RDW Standard Deviation 61.2 fL (36.4-46.3); Red Blood Count 3.04 M/uL (4.20-5.40); White Blood Count 7.25 K/ul (4.8-10.8)
[2023-08-28] MEDS: ALBUT/IPRATROP 3MG/0.5MG NEB 3 ML VIAL NEB ONE (19:18)
--- NOTE | 2023-08-28 19:22 | XRay Report ---
XR chest 1V portable CLINICAL HISTORY: Chest pain, nonspecific TECHNIQUE: Single frontal radiograph of the chest was obtained. Comparison: Comparison is made to chest radiograph 08/07/[address] abdomen pelvis 08/06/2023 FINDINGS: No lines and tubes are seen. Calcified aortic knob is seen. Reticular interstitial opacities are seen . Small bilateral pleural effusions are suggested. IMPRESSION: Likely small bilateral pleural effusions. Interstitial lung disease is seen. ACT 112: Negative or not required by law. Electronically signed by: Yoel Elena M.D. 08/28/2023 7:20 PM
[2023-08-28 19:34] LABS: Albumin Globulin Ratio 0.9 (0.9-2); Albumin Level 3.4 gm/dl (3.4-5.0); BUN Creatinine Ratio 10.9 (10-20); Bilirubin,Total 0.3 mg/dl (0.2-1.0); Calcium 8.2 mg/dl (8.6-10.3); Creatinine Clr Calc Pharmacy 32.1 ml/min; Est GFR (African American) 41.8 ml/min; Est GFR (Non-African American) 36.1 ml/min; Globulin 3.9 gm/dl (2.5-4.0); Magnesium 2.1 mg/dl (1.7-2.4); Phosphorus 3.3 mg/dl (2.5-4.9); Potassium 3.9 mmol/L (3.5-5.1); Total Protein 7.3 gm/dl (6.0-8.3)
[2023-08-28 19:40] LABS: Troponin I High Sensitivity 10.9 pg/ml (0-14)
[2023-08-28 19:50] LABS: Thyroid Stimulating Hormone 1.912 uIu/ml (0.300-4.500)
[2023-08-28 20:18] LABS: Adenovirus PCR Not Detected (NotDetected); Bordetella parapertussis PCR Not Detected (NotDetected); Bordetella pertussis PCR Not Detected (NotDetected); Chlamydia pneumoniae PCR Not Detected (NotDetected); Coronavirus 229E PCR Not Detected (NotDetected); Coronavirus CoV-2 (COVID19)PCR Not Detected (NotDetected); Coronavirus HKU1 PCR Not Detected (NotDetected); Coronavirus NL63 PCR Not Detected (NotDetected); Coronavirus OC43PCR Not Detected (NotDetected); Human Metapneumovirus PCR Not Detected (NotDetected); Influenza A (H1 2009) PCR DETECTED (NotDetected); Influenza B PCR Not Detected (NotDetected); Mycoplasma pneumoniae PCR Not Detected (NotDetected); Parainfluenza Virus 1 PCR Not Detected (NotDetected); Parainfluenza Virus 2 PCR Not Detected (NotDetected); Parainfluenza Virus 3 PCR Not Detected (NotDetected); Parainfluenza Virus 4 PCR Not Detected (NotDetected); Respiratory Syncytial VirusPCR Not Detected (NotDetected); Rhinovirus/Enterovirus PCR Not Detected (NotDetected)
[2023-08-28] MEDS: FUROSEMIDE INJ 20 MG/2 ML VIAL IV ONE (20:50)
[2023-08-28] MEDS: OSELTAMIVIR PHOSPHATE 75 MG CAP PO STA (20:50)
--- NOTE | 2023-08-28 21:05 | History & Physical Report ---
Date of Service August 28, 2023 Assessment & Plan (1) Acute on chronic respiratory failure: (2) Influenza A: (3) COPD (chronic obstructive pulmonary disease): (4) Atrioventricular (AV) dissociation: (5) PAF (paroxysmal atrial fibrillation): (6) PVD (peripheral vascular disease): (7) FRANCIS (obstructive sleep apnea): (8) CKD (chronic kidney disease), stage III: (9) HTN (hypertension): (10) HLD (hyperlipidemia): (11) Colostomy in place: (12) Physical deconditioning: Plan This is an 83-year-old female with PMH of history of suspected IBD, history of diverticulitis and resection of large bowel with colostomy, chronic hypoxemic respiratory failure, COPD, FRANCIS on 3L NC, paroxysmal atrial fibrillation on Xarelto, hypertension CKD 3, depression and other medical problems listed below who presents with worsening shortness of breath and was found to have acute on chronic respiratory failure in setting of influenza A, COPD and volume overload. Please see Dr. Rivas's addendum for assessment and plan. I spent a total of 50 minutes coordinating, documenting, and providing care for this patient excluding time spent in the performance of separately billed services. History of Present Illness Chief Complaint: SOB Primary Care Provider: Tameka Mao MD This is an 83-year-old female with PMH of history of suspected IBD, history of diverticulitis and resection of large bowel with colostomy, chronic hypoxemic respiratory failure, COPD, FRANCIS on 3L NC, paroxysmal atrial fibrillation on Xar elto, hypertension CKD 3, depression and other medical problems listed below who presents with worsening shortness of breath. 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 On previous admission patient was started on lasix 20mg daily, which she was maintained on at discharge from [facility]. Since returning home, patient states she still felt rundown was doing okay until a few days ago when she started to have progressive shortness of breath as well as lightheadedness, prompting evaluation in ED. States she is officially quit smoking since these hospitalizations. Still not using CPAP. Did run out of Lasix and Xarelto and thinks she was out for 4 days total. Nurse refilled her pillbox today. Not entirely sure of the medication she takes. Complaining of lower back pain today in a bandlike distribution. Denies any falls and is mainly been sitting in recliner chair, which she states is similar to how she was at rehab at [facility]. Denies any fever, chills, syncopal events, chest pain, nausea, vomiting, abdominal pain, dysuria, diarrhea or constipation. Ostomy output is at baseline. Allergies Allergy/AdvReac Type Severity Reaction Status Date / Time amoxicillin Allergy Intermediate Rash Verified 08/05/23 18:59 cephalexin [From Keflex] Allergy Intermediate Rash Verified 08/05/23 18:59 cilostazol [From Pletal] Allergy Intermediate Rash Verified 08/05/23 18:59 ciprofloxacin [From Cipro] Allergy Intermediate Rash Verified 08/05/23 18:59 diltiazem Allergy Intermediate Rash Verified 08/05/23 18:59 felodipine Allergy Intermediate Rash Verified 08/05/23 18:59 meloxicam Allergy Intermediate Rash Verified 08/05/23 18:59 sulfamethoxazole Allergy Intermediate Rash Verified 08/05/23 18:59 [From Bactrim] trimethoprim [From Bactrim] Allergy Intermediate Rash Verified 08/05/23 18:59 Home Medications Medication Instructions Recorded Confirmed Type calcium carbonate 500 mg-vitamin 1 tab PO QPM 03/10/19 08/28/23 History D3 10 mcg (400 unit) tablet (Calcium 500 + D) escitalopram oxalate 10 mg tablet 10 mg PO QAM 03/10/19 08/28/23 History (Lexapro) ferrous sulfate 325 mg (65 mg 325 mg PO QAM 03/10/19 08/28/23 History iron) tablet vit C 250 mg-vit E 90 mg-zinc 40 1 tab PO QAM 03/10/19 08/28/23 History mg-copper 1 [id number] capsule (PreserVision AREDS-2) guaifenesin 600 mg tablet, 600 mg PO BID #60 tabs 07/16/20 08/28/23 Rx extended release 12 hr (Mucinex) ascorbic acid (vitamin C) 500 mg 500 mg PO QAM 12/08/20 08/28/23 History tablet (Vitamin C) cyclosporine 0.05 % eye drops in a 1 drp OPB BID 12/08/20 08/28/23 History dropperette (Restasis) Portable Oxygen E0431 #1 ea 03/25/21 08/28/23 Rx rivaroxaban 15 mg tablet (Xarelto) 15 mg PO QPM 11/05/21 08/28/23 History Auto Titrating CPAP #1 ea 02/03/23 08/28/23 Rx CPAP Supplies #1 ea 02/03/23 08/28/23 Rx albuterol sulfate 90 mcg/actuation 1 inh inhalation QID PRN Shortness 02/03/23 08/28/23 Rx aerosol inhaler (ProAir HFA) Of Breath #8.5 grams budesonide 0.25 mg/2 mL suspension 0.25 mg (2 mL) inhalation BID #60 02/03/23 08/28/23 Rx for nebulization mL umeclidinium 62.5 mcg-vilanterol 1 inh inhalation QAM #60 ea 02/03/23 08/28/23 Rx 25 mcg/actuation powdr for inhalation (Anoro Ellipta) mesalamine 1.2 gram tablet,delayed 3.6 g PO QAM 03/14/23 08/28/23 History release acetaminophen 325 mg tablet 325 mg PO Q6H PRN Pain 07/25/23 08/28/23 History (Tylenol) ipratropium 0.5 mg-albuterol 3 mg 3 ml inhalation Q4H PRN Wheezing 07/25/23 08/28/23 History (2.5 mg base)/3 mL nebulization soln omega-3 fatty acids 500 mg capsule 500 mg PO QAM 07/25/23 08/28/23 History solifenacin 5 mg tablet 5 mg PO QAM 07/25/23 08/28/23 History triamcinolone acetonide 0.05 % 1 applic topical BID PRN AFFECTED 07/25/23 08/28/23 History topical ointment AREA lisinopril 10 mg tablet 10 mg PO QAM #30 tabs 08/05/23 08/28/23 Rx pantoprazole 40 mg tablet,delayed 40 mg PO QAM #30 tabs 08/05/23 08/28/23 Rx release verapamil 120 mg tablet,extended 120 mg PO QAM #30 tabs 08/05/23 08/28/23 Rx release (Calan SR) furosemide 20 mg tablet 20 mg PO QAM 08/28/23 08/28/23 History Past Med/Surg History Medical History (Updated 08/28/23 @ 22:00 by Tita Rivero PA-C) FRANCIS (obstructive sleep apnea) Osteoarthritis Chronic back pain Diverticular disease Skin cancer of nose 1970s--unsure which kind, removed in office On anticoagulant therapy xarelto daily On home oxygen therapy 4L N/C PRN PVD (peripheral vascular disease) PAF (paroxysmal atrial fibrillation) on xarelto/flecainide--follows with Dr. Savage Depression Macular degeneration Osteoporosis CKD (chronic kidney disease), stage III HTN (hypertension) HLD (hyperlipidemia) Multiple pulmonary nodules Tobacco dependence due to cigarettes 5 per day Chronic bronchitis COPD (chronic obstructive pulmonary disease) inhaler daily/prn, nebulizer daily/prn; continuous oxygen 3L Colostomy in place Diverticulitis Surgical History History of appendectomy taken out during resection of bowel History of colonoscopy History of tooth extraction History of cataract extraction with lens replacement bilateral History of tonsillectomy History of tubal ligation History of resection of large bowel (~10/2018) perforated bowel d/t diverticulitis History of creation of ostomy 10/2018 Family History Father Pancreatic cancer Mother Stroke Other No family history of adverse response to anesthesia Social History Smoking Status: Former smoker Tobacco Type: Cigarettes Age Started Using Tobacco: 22; Cigarettes Per Day: 3; Smoking End Date: quit earlier this month, 08/26; Second Hand Exposure: Yes (hx growing up); Do You Dip or Chew Tobacco: No; Hx Alcohol Use: No Hx Substance Use: No Preferred Language: Vietnamese Communication Ability: Effective Benefit Director Required: No Beliefs That Will Affect Care: None marital status: / Current Living Situation: Alone Current Living Situation Comment: Mobile home, [address] Feels Safe at Home: Yes Assistive Devices: Oxygen - Continuous Review of Systems Review of Systems: At least ten systems reviewed and negative except as noted in the HPI. Physical Exam Physical Exam: General Appearance: WD/WN, vitals as above, NAD, sitting up in bed, pleasant, conversing easily with baseline NC O2 Head: normocephalic, atraumatic Eyes: normal inspection, PERRL, conjunctivae normal, anicteric sclerae ENT: external ear and nose normal, oropharynx normal Neck: normal visual inspection, trachea midline, no thyromegaly Respiratory: some increased respiratory effort, lungs with scattered rhonchi, bibasilar rales. No accessory muscle use Cardiovascular: regular rate, rhythm, normal peripheral pulses, 1+ BLE edema. Vessels: no JVD Chest: normal inspection of chest Abdomen/GI: normal bowel sounds, soft, nontender, no hepatosplenomegaly, +Colostomy with formed brown stool Extremities/Musculoskeletal: no cyanosis or clubbing, extremities motor strength 5/5 Neurologic: PERRL, EOMI, accommodation nl, no face palsy, no dysarthria, CN's II-XI intact bilaterally and moves all extremities Psychiatric: A+Ox3, depressed mood Skin: no rashes, normal color, warm/dry Results & Data Results & Data Vital Signs (Past 12 Hours) Vital Signs Temp Pulse Pulse Resp BP Pulse Ox O2 Del Method 08/28/23 20:30 85 31 H 166/78 H 100 08/28/23 20:30 85 31 H 100 08/28/23 20:20 83 36 H 100 08/28/23 20:10 77 33 H 100 08/28/23 20:00 81 34 H 172/76 H 100 08/28/23 20:00 81 34 H 100 08/28/23 19:50 74 34 H 100 08/28/23 19:40 72 32 H 100 08/28/23 19:30 72 31 H 100 08/28/23 19:30 72 31 H 158/82 H 100 08/28/23 19:20 67 28 H 100 08/28/23 19:18 72 26 H 96 Nasal Cannula 08/28/23 19:14 95 Nasal Cannula 08/28/23 19:10 70 29 H 97 08/28/23 19:00 81 19 98 08/28/23 19:00 81 19 160/80 H 98 Nasal Cannula 02/26/24 18:50 70 24 99 08/28/23 18:49 69 08/28/23 18:48 72 28 H 99 08/28/23 18:33 36.7 C 79 22 159/73 H 98 Nasal Cannula O2 Flow Rate 08/28/23 20:30 08/28/23 20:30 08/28/23 20:20 08/28/23 20:10 08/28/23 20:00 08/28/23 20:00 08/28/23 19:50 08/28/23 19:40 08/28/23 19:30 08/28/23 19:30 08/28/23 19:20 08/28/23 19:18 3 08/28/23 19:14 3 08/28/23 19:10 08/28/23 19:00 08/28/23 19:00 3 08/28/23 18:50 08/28/23 18:49 08/28/23 18:48 08/28/23 18:33 5 Laboratory Results Short CBC 08/28/23 Range/Units 18:48 WBC 7.25 (4.8-10.8) K/ul Hgb 8.7 L (12.0-16.0) g/dl Hct 29.4 L (37.0-47.0) % Plt Count 263 (130-400) K/uL BMP 08/28/23 18:48 Sodium 143 Potassium 3.9 Chloride 108 H Carbon Dioxide 29 BUN 15 Creatinine 1.37 H Glucose 120 H Calcium 8.2 L Liver Function 08/28/23 Range/Units 18:48 Total Bilirubin 0.3 (0.2-1.0) mg/dl AST 15 (13-39) U/L ALT 9 (7-52) U/L Alkaline Phosphatase 71 (34-104) U/L Albumin 3.4 (3.4-5.0) gm/dl Diagnostic Findings Chest X-Ray 08/28/23 18:36 XR chest 1V portable CLINICAL HISTORY: Chest pain, nonspecific TECHNIQUE: Single frontal radiograph of the chest was obtained. Comparison: Comparison is made to chest radiograph 08/07/[address] abdomen pelvis 08/06/2023 FINDINGS: No lines and tubes are seen. Calcified aortic knob is seen. Reticular interstitial opacities are seen. Small bilateral pleural effusions are suggested. IMPRESSION: Likely small bilateral pleural effusions. Interstitial lung disease is seen. ACT 112: Negative or not required by law. Electronically signed by: Yoel Elena M.D. 08/28/2023 7:20 PM Supervising Physician Co-Signing Physician Notes IM ATTENDING : Patient seen and examined. History obtained from patient and records. Concur with salient points upon review of preceding documentation by Ms. Tita Rivero PA-C I take responsibility for plan of care below. 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 DVT prophylaxis. SCDs for now while Eliquis on hold, resume Eliquis if no bleeding on CAT scan Full code Family contacts: Juan Daniel Beaulieu (son), contact #[phone] Jean Beaulieu (son), contact #[phone] Text document was generated using [employer] voice recognition software. It may contain grammatical or spelling errors. Kindly contact undersigned for clarification of any documentation item in question. (3) COPD (chronic obstructive pulmonary disease) COPD type: unspecified COPD Qualified Code(s): J44.9 - Chronic obstructive pulmonary disease, unspecified
[2023-08-28 21:09] LABS: Prothrombin Time 10.9 Seconds (9.0-12.0)
[2023-08-28] MEDS: ALBUMIN 25% 25 GM/100 ML VIAL IV ONE (21:44)
[2023-08-28] MEDS ORDERED: traMADol HCL 50 MG TABLET PO PRN (21:58)
[2023-08-28] MEDS ORDERED: PROMETHAZINE HCL 6.25 MG in SODIUM CHLORIDE 0.9% 50 ML IV PRN (21:58)
[2023-08-28 22:10] LABS: Appearance Urine Clear (Clear); Bacteria Urine Automated Negative (Negative); Bilirubin Urine Negative (Negative); Blood Urine Negative (Negative); Color Urine Yellow; Epithelial Cell Urine Auto 20-30 /lpf (0-5); Glucose Urine UA Negative (Negative); Ketones Urine Negative (Negative); Leukocyte Esterase Urine 2+ (Negative); Nitrite Urine Negative (Negative); Protein Urine Negative (Negative); RBC Urine Automated 0-4 /hpf (0-4); Urobilinogen Urine Negative (Negative); pH Urine 5.5 (4.5-7.5)
[2023-08-28] MEDS: VERAPAMIL HCL 120 MG TABCR PO STA (22:43)
--- NOTE | 2023-08-28 23:17 | CT Scan Report ---
Exam(s): CT ABDOMEN + PELVIS Without Contrast EXAM: CT Abdomen and Pelvis Without Intravenous Contrast CLINICAL HISTORY: Reason for exam: L abd pain. TECHNIQUE: Axial computed tomography images of the abdomen and pelvis without intravenous contrast. Automated exposure control was utilized for the study. A dose lowering technique was utilized adhering to the principles of ALARA. COMPARISON: No relevant prior studies available. FINDINGS: Lung bases: Atelectasis at the lung bases. ABDOMEN: Liver: Unremarkable. Gallbladder and bile ducts: Unremarkable. No calcified stones. No ductal dilation. Pancreas: Unremarkable. No ductal dilation. Spleen: Unremarkable. No splenomegaly. Adrenals: Unremarkable. No mass. Kidneys and ureters: Mild fullness of the LEFT and a click consistent. No obstructive uropathy. Bilateral nonobstructing renal calculi measuring up to 12 mm in the LEFT lower pole. Stomach and bowel: Large LEFT lower quadrant parastomal hernia measures approximately 10.2 x 14.0 cm and contains multiple large and small bowel loops. No bowel obstruction. No mucosal thickening. PELVIS: Appendix: No findings to suggest acute appendicitis. Bladder: Unremarkable. No stones. Reproductive: Atrophy of the uterus. ABDOMEN and PELVIS: Intraperitoneal space: Unremarkable. No free air. No significant fluid collection. Bones/joints: Degenerative changes of the spine. No acute fracture. No dislocation. Soft tissues: See above. Vasculature: Atherosclerotic changes of the aorta. No abdominal aortic aneurysm. Lymph nodes: Unremarkable. No enlarged lymph nodes. IMPRESSION: 1. Large LEFT lower quadrant parastomal hernia measures approximately 10. 2 x 14.0 cm and contains multiple large and small bowel loops. No bowel obstruction. 2. Bilateral nonobstructing renal calculi measuring up to 12 mm in the LEFT lower pole. Electronically signed by: Tato Tapia MD 08/28/23 23:16 PM
[2023-08-29] MEDS ORDERED: ACETAMINOPHEN 325 MG TAB PO PRN (00:36)
--- NOTE | 2023-08-29 01:06 | Surgery Consultation ---
Date of Consultation August 29, 2023 Assessment & Plan (1) Parastomal hernia: Patient has been admitted to the hospital service secondary to her underlying shortness of breath. Will defer treatment of this condition to their discretion. Concerning the patient's parastomal hernia we recommend the following: At the present time the patient's colostomy appears to be functioning appropriately There is no evidence of obstruction on CT scan I discussed case with my attending physician, Dr. Kruger. If the patient were to undergo repair of her parastomal hernia this would need to be entertained by colorectal specialist or a hernia specialist. At the present time as there is no obstruction this can be performed on an outpatient basis. I have conveyed these recommendations to the treating hospitalist service Supervising Physician Co-Signing Physician Notes Patient seen and examined, labs and imaging reviewed, agree with above. 83-year-old female with history of Hernandez's procedure in 2019, admitted for influenza, noted bulging at her stoma site. Stoma is functioning and she is not having much pain right now. On exam she is afebrile with stable vitals. Ostomy pink patent and functioning with stool and air in the bag. She has a large parastomal hernia on the left. CT scan personally viewed and interpreted agree with the assessment of a large parastomal hernia containing multiple loops of bowel and colon. There is no evidence of obstruction or ischemia. At this point there is no indication for acute intervention. When she recovers from her influenza, we recommend follow-up with colorectal surgeon or hernia specialist for further evaluation. Surgery will sign off, call with questions or concerns History of Present Illness Reason for Consultation: Parastomal hernia Attending Physician: Gabrielle Petersen MD History of Present Illness This is an 83-year-old female who presented to the emergency department secondary to worsening shortness of breath. The patient is subsequent been admitted secondary to shortness of breath which is felt to be due to a combination of acute on chronic respiratory failure due to influenza A and underlying COPD. Patient does note that she takes Xarelto for history of atrial fibrillation and she believes she did take her evening dose tonight. When the patient was being evaluated by the hospitalist service she noted some pain around her pre-existing colostomy. Patient notes that she did have a colostomy in 2019 at [facility] in [place], [place] secondary to diverticulitis. Patient has had a colostomy since that time and notes it was recommended that due to her advanced age and underlying medical comorbidities that had not been reversed. Additional abdominal surgeries the patient has had include a tubal ligation. Patient does note that she has had some pain around her colostomy for approximately 3 days that is worse with coughing. She specifically denies any nausea or vomiting. She also notes that her colostomy is working appropriately. She denies any fevers, shakes, or chills. Since arrival to the emergency department patient has had labs and imaging which independent reviewed. Chest x-ray showed small bilateral pleural effusions with some findings consistent with interstitial lung disease. A CT scan of the abdomen pelvis was performed that showed patient had a large left lower quadrant parastomal herniatestis measured approximately 10 x 2 x 14 cm and contained multiple loops of large and small bowel with no evidence of bowel obstruction. Labs include a CBC her white blood cell count and platelet count were normal. Hemoglobin and hematocrit were 8.7 and 29.4. Chemistry profile showed sodium and potassium were normal. Her BUN was normal and her creatinine was 1.3. (Review of records show that this level of creatinine is actually below her baseline which appears to run from 1.5-1.8). There is no elevation of her LFTs or lipase. Urinalysis was noted to have 2+ leukocyte Estrace and 5-10 white blood cells per high-power field. There were no nitrates on the specimen and was negative for bacteria. Patient did test positive for influenza A. At the time of my interview she was resting comfortably in bed and she was in no distress. Allergies Allergy/AdvReac Type Severity Reaction Status Date / Time amoxicillin Allergy Intermediate Rash Verified 08/05/23 18:59 cephalexin [From Keflex] Allergy Intermediate Rash Verified 08/05/23 18:59 cilostazol [From Pletal] Allergy Intermediate Rash Verified 08/05/23 18:59 ciprofloxacin [From Cipro] Allergy Intermediate Rash Verified 08/05/23 18:59 diltiazem Allergy Intermediate Rash Verified 08/05/23 18:59 felodipine Allergy Intermediate Rash Verified 08/05/23 18:59 meloxicam Allergy Intermediate Rash Verified 08/05/23 18:59 sulfamethoxazole Allergy Intermediate Rash Verified 08/05/23 18:59 [From Bactrim] trimethoprim [From Bactrim] Allergy Intermediate Rash Verified 08/05/23 18:59 Home Medications Medication Instructions Recorded Confirmed Type calcium carbonate 500 mg-vitamin 1 tab PO QPM 03/10/19 08/28/23 History D3 10 mcg (400 unit) tablet (Calcium 500 + D) escitalopram oxalate 10 mg tablet 10 mg PO QAM 03/10/19 08/28/23 History (Lexapro) ferrous sulfate 325 mg (65 mg 325 mg PO QAM 03/10/19 08/28/23 History iron) tablet vit C 250 mg-vit E 90 mg-zinc 40 1 tab PO QAM 03/10/19 08/28/23 History mg-copper 1 ol-owcovk-vyvkuh capsule (PreserVision AREDS-2) guaifenesin 600 mg tablet, 600 mg PO BID #60 tabs 07/16/20 08/28/23 Rx extended release 12 hr (Mucinex) ascorbic acid (vitamin C) 500 mg 500 mg PO QAM 12/08/20 08/28/23 History tablet (Vitamin C) cyclosporine 0.05 % eye drops in a 1 drp OPB BID 12/08/20 08/28/23 History dropperette (Restasis) Portable Oxygen E0431 #1 ea 03/25/21 08/28/23 Rx rivaroxaban 15 mg tablet (Xarelto) 15 mg PO QPM 11/05/21 08/28/23 History Auto Titrating CPAP #1 ea 02/03/23 08/28/23 Rx CPAP Supplies #1 ea 02/03/23 08/28/23 Rx albuterol sulfate 90 mcg/actuation 1 inh inhalation QID PRN Shortness 02/03/23 0 08/28/23 Rx aerosol inhaler (ProAir HFA) Of Breath #8.5 grams budesonide 0.25 mg/2 mL suspension 0.25 mg (2 mL) inhalation BID #60 02/03/23 08/28/23 Rx for nebulization mL umeclidinium 62.5 mcg-vilanterol 1 inh inhalation QAM #60 ea 02/03/23 08/28/23 Rx 25 mcg/actuation powdr for inhalation (Anoro Ellipta) mesalamine 1.2 gram tablet,delayed 3.6 g PO QAM 03/14/23 08/28/23 History release acetaminophen 325 mg tablet 325 mg PO Q6H PRN Pain 07/25/23 08/28/23 History (Tylenol) ipratropium 0.5 mg-albuterol 3 mg 3 ml inhalation Q4H PRN Wheezing 07/25/23 08/28/23 History (2.5 mg base)/3 mL nebulization soln omega-3 fatty acids 500 mg capsule 500 mg PO QAM 07/25/23 08/28/23 History solifenacin 5 mg tablet 5 mg PO QAM 07/25/23 08/28/23 History triamcinolone acetonide 0.05 % 1 applic topical BID PRN AFFECTED 07/25/23 08/28/23 History topical ointment AREA lisinopril 10 mg tablet 10 mg PO QAM #30 tabs 08/05/23 08/28/23 Rx pantoprazole 40 mg tablet,delayed 40 mg PO QAM #30 tabs 08/05/23 08/28/23 Rx release verapamil 120 mg tablet,extended 120 mg PO QAM #30 tabs 08/05/23 08/28/23 Rx release (Calan SR) furosemide 20 mg tablet 20 mg PO QAM 08/28/23 08/28/23 History Patient History Medical History FRANCIS (obstructive sleep apnea) Osteoarthritis Chronic back pain Diverticular disease Skin cancer of nose 1970s--unsure which kind, removed in office On anticoagulant therapy xarelto daily On home oxygen therapy 4L N/C PRN PVD (peripheral vascular disease) PAF (paroxysmal atrial fibrillation) on xarelto/flecainide--follows with Dr. Savage Depression Macular degeneration Osteoporosis CKD (chronic kidney disease), stage III HTN (hypertension) HLD (hyperlipidemia) Multiple pulmonary nodules Tobacco dependence due to cigarettes 5 per day Chronic bronchitis COPD (chronic obstructive pulmonary disease) inhaler daily/prn, nebulizer daily/prn; continuous oxygen 3L Colostomy in place Diverticulitis Surgical History History of appendectomy taken out during resection of bowel History of colonoscopy History of tooth extraction History of cataract extraction with lens replacement bilateral History of tonsillectomy History of tubal ligation History of resection of large bowel (~10/2018) perforated bowel d/t diverticulitis History of creation of ostomy 10/2018 Family History Father Pancreatic cancer Mother Stroke Other No family history of adverse response to anesthesia Social History Smoking Status: Former smoker Tobacco Type: Cigarettes Age Started Using Tobacco: 22; Cigarettes Per Day: 3; Smoking End Date: quit earlier this month, 08/26; Second Hand Exposure: Yes (hx growing up); Do You Dip or Chew Tobacco: No; Hx Alcohol Use: No Hx Substance Use: No Preferred Language: Moroccan Communication Ability: Effective 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: No Beliefs That Will Affect Care: None marital status: / Current Living Situation: Alone Current Living Situation Comment: Mobile home, [address] Other Information That Helps Us Care for You: No Feels Safe at Home: Yes Safety Concerns: Feels Safe At This Time Assistive Devices: Oxygen - Continuous Review of Systems Constitutional: no fever and no chills Eyes: + corrective lenses Ear, Nose, Mouth, Throat: no hearing loss Respiratory: + cough and + dyspnea Cardiovascular: no chest pain Gastrointestinal: as per Subjective / HPI Genitourinary: no dysuria Musculoskeletal: no back pain Integumentary: no rash Neurologic: no localized weakness Physical Exam Constitutional: WD/WN, vitals as above Eyes: Wears glasses ENMT: Ears: no hearing impairment and no external ear abnormality Mouth: no oropharynx abnormality Neck: trachea midline Respiratory: normal respiratory effort; no respiratory distress and no labored breathing Occasional rhonchi noted Cardiovascular: Rate/Rhythm: regular rate and regular rhythm Gastrointestinal (Abdomen): Abdomen is soft and nondistended. Patient does have a colostomy in the left lower quadrant of abdomen. Patient did have some minor pain noted with palpation on the lateral aspect of her colostomy. Her colostomy did appear pink and viable and had some brown stool noted in the collection bag. The patient had no peritoneal signs at the time of my exam Musculoskeletal: No calf tenderness Skin: no rashes Neurologic: moves all extremities Psychiatric: A+Ox3, euthymic affect Results & Data Vital Signs (Past 12 Hours) Vital Signs Temp Pulse Pulse Resp BP Pulse Ox O2 Del Method 08/29/23 00:48 26 H 95 Nasal Cannula 08/29/23 00:40 79 28 H 94 02/27/24 00:32 84 32 H 94 08/29/23 00:32 81 27 H 148/62 H 93 Nasal Cannula 08/29/23 00:30 81 27 H 93 08/29/23 00:20 83 28 H 92 08/29/23 00:10 86 28 H 93 08/29/23 00:01 80 31 H 94 08/29/23 00:01 82 34 H 175/104 H 94 08/29/23 00:00 82 34 H 94 08/28/23 23:50 87 26 H 94 08/28/23 23:40 83 27 H 94 08/28/23 23:30 82 27 H 181/80 H 95 08/28/23 23:30 82 27 H 95 08/28/23 23:20 89 36 H 93 08/28/23 23:10 83 23 96 08/28/23 23:00 86 24 171/69 H 94 08/28/23 23:00 86 24 94 08/28/23 22:50 86 29 H 95 08/28/23 22:45 88 08/28/23 22:44 92 08/28/23 22:20 86 28 H 95 08/28/23 22:10 86 28 H 94 08/28/23 22:01 85 26 H 157/64 H 93 08/28/23 22:01 85 26 H 93 08/28/23 22:00 85 28 H 91 08/28/23 21:50 87 20 93 08/28/23 21:42 86 29 H 169/73 H 92 08/28/23 21:42 86 29 H 92 08/28/23 21:40 87 18 92 08/28/23 21:30 88 23 167/69 H 93 08/28/23 21:30 88 23 93 08/28/23 21:20 82 27 H 93 08/28/23 21:10 87 31 H 93 08/28/23 21:02 88 34 H 94 08/28/23 21:02 88 30 H 94/66 L 94 08/28/23 21:00 88 30 H 94 08/28/23 20:50 85 27 H 94 08/28/23 20:40 85 29 H 95 08/28/23 20:30 85 31 H 166/78 H 100 08/28/23 20:30 85 31 H 100 08/28/23 20:20 83 36 H 100 08/28/23 20:10 77 33 H 100 08/28/23 20:00 81 34 H 172/76 H 100 08/28/23 20:00 81 34 H 100 08/28/23 19:50 74 34 H 100 08/28/23 19:40 72 32 H 100 08/28/23 19:30 72 31 H 100 08/28/23 19:30 72 31 H 158/82 H 100 08/28/23 19:20 67 28 H 100 08/28/23 19:18 72 26 H 96 Nasal Cannula 08/28/23 19:14 95 Nasal Cannula 08/28/23 19:10 70 29 H 97 08/28/23 19:00 81 19 98 08/28/23 19:00 81 19 160/80 H 98 Nasal Cannula 08/28/23 18:50 70 24 99 08/28/23 18:49 69 08/28/23 18:48 72 28 H 99 08/28/23 18:33 36.7 C 79 22 159/73 H 98 Nasal Cannula O2 Flow Rate 08/29/23 00:48 3 08/29/23 00:40 08/29/23 00:32 08/29/23 00:32 3 08/29/23 00:30 08/29/23 00:20 08/29/23 00:10 08/29/23 00:01 08/29/23 00:01 08/29/23 00:00 08/28/23 23:50 08/28/23 23:40 08/28/23 23:30 08/28/23 23:30 08/28/23 23:20 08/28/23 23:10 08/28/23 23:00 08/28/23 23:00 08/28/23 22:50 08/28/23 22:45 08/28/23 22:44 08/28/23 22:20 08/28/23 22:10 08/28/23 22:01 08/28/23 22:01 08/28/23 22:00 08/28/23 21:50 08/28/23 21:42 08/28/23 21:42 08/28/23 21:40 08/28/23 21:30 08/28/23 21:30 08/28/23 21:20 08/28/23 21:10 08/28/23 21:02 08/28/23 21:02 08/28/23 21:00 08/28/23 20:50 08/28/23 20:40 08/28/23 20:30 08/28/23 20:30 08/28/23 20:20 08/28/23 20:10 08/28/23 20:00 08/28/23 20:00 08/28/23 19:50 08/28/23 19:40 08/28/23 19:30 08/28/23 19:30 08/28/23 19:20 08/28/23 19:18 3 08/28/23 19:14 3 08/28/23 19:10 08/28/23 19:00 08/28/23 19:00 3 08/28/23 18:50 08/28/23 18:49 08/28/23 18:48 08/28/23 18:33 5 PG Care Time/CCT Total # of Minutes Spent Total Time Spent with Patient: Total time spent is greater than 50% in coordination of care (as documented) at patient's floor/unit and/or counseling patient: Coding Level of Care Code 47962 INT INP/OBS CARE 3/75MIN Diagnoses Parastomal hernia K43.5
[2023-08-29] MEDS: IPRATROPIUM BROMIDE NEB SOLN 0.02% 0.5MG/2.5ML VIAL INH SCH (01:12)
[2023-08-29] MEDS: LEVALBUTEROL 1.25 MG/3 ML NEB NEB SCH (01:12)
[2023-08-29] MEDS: RIVAROXABAN 15 MG TAB PO STA (01:43)
--- OUTSIDE RECORDS SUMMARY | 2023-08-29 03:49 | External Medical Summary | Summary of Care ---
Author Name Unknown Organization [facility] Address [address] [place] [address] Phone [phone] Care Team Providers Care Handicrafts Teacher Name Role Phone Tameka Hooper MD Primary Care Prov ider Reason for Visit * Reason Comments Hospital Follow-Up Encounter Details Date Type Department Care Team (Latest Contact Info) Description 08/24/2023 2:40 PM EST Office Visit Family Medicine [address] [phone] Krishna Espana MD [address] [place] [address] [place] [address] Gastrointestinal hemorrhage associated with gastric ulcer*; Stage 3b chronic kidney disease; Essential (primary) hypertension; Chronic hypoxemic respiratory failure (HCC); Paroxysmal atrial fibrillation (HCC); 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HCC) Allergies Active Allergy Reactions Criticality Noted Date Comments Amoxicillin Rash 02/07/2020 Bactrim Rash 12/15/2011 Ciprofloxacin Rash 12/15/2011 Diltiazem Rash 05/29/2019 Piroxicam Rash 12/15/2011 Cephalexin Rash 12/15/2011 Meloxicam Rash 05/29/2019 Other reaction(s): Other Cilostazol Rash,Unknown 12/15/2011 Sulfamethoxazole High 01/19/2023 Other Reaction(s): Rash Trimethoprim High 01/19/2023 Other Reaction(s): Rash documented as of this encounter (statuses as of 08/24/2023) Medications Medication Sig Dispensed Refills Start Date End Date Status oxygen IN GAS Use 3 L/min(Oxygen) as directed. Use with activity and sleep and at rest if 02 sat <92% 0 Active Prolia 60 MG/ML Subcutaneous Solution Prefilled Syringe Inject 60 mg under the skin every 6 months. 1 mL 0 1 Active CPAP every night at bedtime. 0 Active Compressor NebulizerIndicati ons:COPD, moderate (HCC) Inhale via nebulizer . Use as directed. 1 Each 1 2 Active Triamcinolone Acetonide 0.5 % External Cream (Aristocort)Indic ations:Dermatitis APPLY TO AFFECTED AREA TWICE A DAY 60 g 5 4 Active Acetaminophen 325 MG Oral Tablet (Tylenol) Take 1 Tablet by mouth every 6 hours as needed for Pain, Mild, Fever >38C(100.5F), Pain, Moderate or Pain, Severe. Pt takes 1/2 tab daily 0 4 Active Albuterol Sulfate HFA 108 (90 Base) MCG/ACT Inhalation Aerosol SolutionIndicatio ns:COPD, moderate (HCC) INHALE 2 PUFFS BY MOUTH NEEDED FOR COUGH, SHORTNESS OF BREATH OR WHEEZING. 18 g 5 4 Active Anoro Ellipta 62.5-25 MCG/ACT Inhalation Aerosol Powder Breath Activated Inhale 1 Puff by mouth in the morning. 1 puff daily. 60 Blister Dosing Unit 3 4 Active Budesonide 0.25 MG/2ML Inhalation Suspension (Pulmicort) INHALE CONTENTS OF ONE VIAL (2ML) TWICE DAILY 60 mL 4 4 Active Calcium 1000 + D 1000-20 MG-MCG Oral Tablet (Calcium Carb-Cholecalcife rol) Take 1 Tablet by mouth daily. 90 Tablet 2 4 Active Escitalopram Oxalate 10 MG Oral Tablet (Lexapro)Indicati ons:Major depressive disorder, single episode, unspecified Take 1 Tablet by mouth in the morning. 90 Tablet 1 4 Active Ferrous Sulfate 325 (65 Fe) MG Oral Tablet (Feosol) TAKE 1 TABLET BY MOUTH EVERY DAY WITH BREAKFAST 90 Tablet 1 4 Active Furosemide 20 MG Oral Tablet (Lasix) Take 1 Tablet by mouth in the morning. for fluid accumulation or weight gain. 90 Tablet 3 4 Active guaiFENesin ER 600 MG Oral Tablet Extended Release 12 Hour (Humibid LA) Take 1 Tablet by mouth in the morning and 1 Tablet before bedtime. 60 Tablet 3 4 Active Ipratropium-Albut donna 0.5-2.5 (3) MG/3ML Inhalation Solution (Duoneb) Inhale 3 mL via nebulizer every 4 hours as needed for Wheezing. 3ml vial in nebuilzer every four hours as needed for wheezing 3 mL 4 4 Active Lisinopril 10 MG Oral Tablet (Prinivil)Indicat ions:Hypertensive kidney disease with stage 3b chronic kidney disease (HCC) Take 1 Tablet by mouth in the morning. 90 Tablet 3 4 Active Mesalamine 1.2 GM Oral Tablet Delayed Release (Lialda) Take 3 Tablets by mouth in the morning. 270 Tablet 3 4 Active Fish Oil 500 MG Oral Capsule Take by mouth. 90 Capsule 3 4 Active Pantoprazole Sodium 40 MG Oral Tablet Delayed Release (Protonix) Take 1 Tablet by mouth in the morning. 90 Tablet 3 4 Active Restasis 0.05 % Ophthalmic Emulsion INSTILL 1 DROP INTO EACH EYE TWICE DAILY 1.5 mL 5 4 Active Solifenacin Succinate 5 MG Oral Tablet (VESIcare)Indicat ions:Urge incontinence,Urin tangela frequency,Urinary urgency,Mixed incontinence Take 1 Tablet by mouth in the morning. 90 Tablet 3 4 Active Vitamin C 500 MG Oral Tablet Chewable Take 1 Tablet by mouth in the morning. 30 Tablet 5 4 Active Rivaroxaban 15 MG Oral Tablet (Xarelto)Indicati ons:Chronic atrial fibrillation (HCC) Take 1 Tablet by mouth in the morning. 90 Tablet 3 4 Active PreserVision AREDS 2 Oral Tablet Chewable Take 1 Tablet by mouth daily. 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 Nephrolithiasis 08/16/2023 Full code status 08/14/2023 IBD (inflammatory bowel disease) 08/11/2023 Gastrointestinal hemorrhage associated with aubrie loretta ulcer 08/11/2023 Schatzki's ring of distal esophagus 08/11/2023 Hiatal hernia 08/11/2023 Hx of actinic keratosis 05/22/2023 Overview: Efudex [...] as of this encounter (statuses as of 08/24/2023) Resolved Problems Problem Noted Date Diagnosed Date Resolved Date Age-related osteoporosis wit hout current pathological fracture 08/16/2023 08/22/2023 Age-related osteoporosis wit hout current pathological fracture 08/16/2023 08/22/2023 Actinic keratosis 04/26/2022 05/22/2023 Prediabetes 03/15/2021 12/16/2021 [...] as of this encounter (statuses as of 08/24/2023) Immunizations Name Administration Dates Next Due COVID-19 [...] Answer Date Recorded PHQ Adult Total Score 1 08/21/2023 Hunger Vital Sign Answer Date Recorded Within the past 12 months, y ou worried that your food would run out before you got the money to buy more. Never true 08/21/19 24 Within the past 12 months, t he food you bought just didn't last and you didn't have money to get more. Never true 08/21/2023 Sex and Gender Information Value Date Recorded Sex Assigned at Female 08/11/2021 12:39 PM EST Gender Identity Female 08/11/2021 12:39 PM EST Sexual Orientation Straight 08/11/2021 12 :39 PM EST Job Start Date Occupation Industry Not on file Not on file Not on file documented as of this encounter Last Filed Vital Signs Vital Sign Reading Time Taken Comments Blood Pressure 110/56 08/24/2023 2:30 PM EST Pulse 80 08/24/2023 2:30 PM EST Temperature 36.5 C (97.7 F) 08/24/2023 2:30 PM ES T Respiratory Rate - - Oxygen Saturation 92% 08/24/2023 2:30 PM EST Inhaled Oxygen Concentration - - Weight 78.5 kg (173 lb) 08/24/2023 2:30 PM EST Height 144.8 cm (4' 9") 08/24/2023 2:30 PM EST Body Mass Index 37.44 08/24/2023 2:30 PM EST documented in this encounter Progress Notes * Krishna Espana MD - 08/24/2023 2:27 PM EST Eliazar was admitted to [facility] in July gor GI bleed and hgb of 6.9. This was complicated by hypoxic respiratory failure. She actually went home first and then ended up back in the hospital. She was discharged to [facility] 08/11 for rehab and went home on 08/20. VNA is involved. She is not feeling as perky today. She is eating well, is on O2 and uses a wheelchair. Last hgb was 8.1 Past Medical History: Diagnosis Date Chronic atrial fibrillation (HCC) 05/29/2019 Chronic bilateral low back pain without sciatica 02/04/2020 Colostomy status (HCC) 05/29/2019 COPD, moderate (HCC) 12/15/2011 Diverticulitis of colon Essential (primary) hypertension 07/10/2019 Fracture of vertebra due to osteoporosis with routine healing 02/07/2020 Generalized osteoarthritis Glaucoma 12/15/2011 H/O multiple pulmonary nodules pt f/u with [facility] counselor education professor next yearly CT is due in May 2022 Macular degeneration 05/29/2019 Mixed hyperlipidemia 05/29/2019 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HCC) 12/15/2011 S/P bilateral cataract extraction 05/29/2019 Past Surgical History: Procedure Laterality Date COLONOSCOPY, DIAGNOSTIC (RECTUM) 08/01/2019 adenomatous polyp, repeat 5 yrs/COLONOSCOPY FLEXIBLE PROXIMAL DIAGNOSTIC performed by Gasper Kim DO at ENDOSCOPY [facility] COLONOSCOPY, DIAGNOSTIC (RECTUM) N/A 02/23/2022 [facility], Colonoscopy , Nodular mucosa in ascending & transverse / biopsies biopsies from the colonwere most consistent with inflammatory bowel disease / LENS EXTRACTION, PHACOFRAGMENTATION Bilateral 10/2016 Dr. Cortez LIGATE/CUT OVIDUCT(S) 1973 PARTIAL REMOVAL OF COLON 12/06/2018 Diverticulitis REMOVE TONSILS & ADENOIDS, UNDER 14 age [age] UPPER GI ENDOSCOPY 07/26/2023 gastic ulcer/nonobstructing Schatzki ring/small HH/repeat 3 months/EGD/[facility] Review of patient's allergies indicates: Allergen Reactions Sulfamethoxazole Other Reaction(s): Rash Trimethoprim Other Reaction(s): Rash Amoxicillin Rash Bactrim Rash Ciprofloxacin Rash Diltiazem Rash Feldene [Piroxicam] Rash Keflex [Cephalexin] Rash Meloxicam Rash Other reaction(s): Other Pletal [Cilostazol] Rash and Unknown Patient Active Problem List Diagnosis Code 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, J44.9 Macular degeneration H35.30 S/P bilateral cataract extraction Z98.41, Z98.42 Colostomy status ([facility]) Z93.3 Paroxysmal atrial fibrillation (HCC) I48.0 H/O resection of large bowel Z90.49 Diverticulosis of large intestine without hemorrhage K57.30 Mixed hyperlipidemia E78.2 Tobacco use disorder F17.200 Chronic bilateral low back pain without sciatica M54.50, G89.29 DDD (degenerative disc disease), lumbar M51.36 Stage 3b chronic kidney disease N18.32 Senile osteoporosis M81.0 Major depressive disorder with single episode, in full remission ([facility]) F32.5 Hypoparathyroidism ([facility]) E20.9 Chronic hypoxemic respiratory failure ([facility]) J96.11 History of healed osteoporosis fracture Z87.310 Essential (primary) hypertension I10 COPD, group B, by GOLD 2017 classification ([facility]) J44.9 Hypertensive kidney disease with stage 3b chronic kidney disease ([facility]) I12.9, N18.32 Other specified peripheral vascular diseases ([facility]) I73.89 Hx of actinic keratosis Z87.2 IBD (inflammatory bowel disease) K52.9 Gastrointestinal hemorrhage associated with gastric ulcer K25.4 Schatzki's ring of distal esophagus K22.2 Hiatal hernia K44.9 Full code status Z78.9 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 ([facility]) K51.40 Nephrolithiasis N20.0 Review of patient's allergies indicates: Allergen Reactions Sulfamethoxazole Other Reaction(s): Rash Trimethoprim Other Reaction(s): Rash Amoxicillin Rash Bactrim Rash Ciprofloxacin Rash Diltiazem Rash Feldene [Piroxicam] Rash Keflex [Cephalexin] Rash Meloxicam Rash Other reaction(s): Other Pletal [Cilostazol] Rash and Unknown Social History Socioeconomic History Marital status: Spouse name: Not on file Number of children: Not on file Years of education: Not on file Highest education level: Not on file Occupational History Not on file Tobacco Use Smoking status: Every Day Current packs/day: 0.25 Average packs/day: 0.3 packs/day for 60.0 years (15.0 ttl pk-yrs) Types: Cigarettes Smokeless tobacco: Never Tobacco comments: [...] on file Food Insecurity: No Food Insecurity (08/21/2023) Hunger Vital Sign Worried About Running Out of Food in the Last Year: Never true Ran Out of Food in the Last Year: Never true Transportation Needs: Not on file Physical Activity: Not on file Stress: Not on file Social Connections: Not on file Intimate Partner Violence: Not on file Housing Stability: Not on file Current Outpatient Medications Medication Sig Dispense Refill oxygen IN GAS Use 3 L/min(Oxygen) as directed. Use with activity and sleep and at rest if 02 sat <92% Prolia 60 MG/ML Subcutaneous Solution Prefilled Syringe Inject 60 mg under the skin every 6 months.1 mL 0 Compressor Nebulizer Inhale via nebulizer . Use as directed. 1 Each 1 Triamcinolone Acetonide 0.5 % External Cream (Aristocort) APPLY TO AFFECTED AREA TWICE A DAY 60 g 5 Acetaminophen 325 MG Oral Tablet (Tylenol) Take 1 Tablet by mouth every 6 hours as needed for Pain,Mild, Fever >38C(100.5F), Pain, Moderate or Pain, Severe. Pt takes 1/2 tab daily Albuterol Sulfate HFA 108 (90 Base) MCG/ACT Inhalation Aerosol Solution INHALE 2 PUFFS BY MOUTH NEEDED FOR COUGH, SHORTNESS OF BREATH OR WHEEZING. 18 g 5 Anoro Ellipta 62.5-25 MCG/ACT Inhalation Aerosol Powder Breath Activated Inhale 1 Puff by mouth in the morning. 1 puff daily. 60 Blister Dosing Unit 3 Budesonide 0.25 MG/2ML Inhalation Suspension (Pulmicort) INHALE CONTENTS OF ONE VIAL (2ML) TWICE DAILY 60 mL 4 Calcium 1000 + D 1000-20 MG-MCG Oral Tablet (Calcium Carb-Cholecalciferol) Take 1 Tablet by mouth daily. 90 Tablet 2 Escitalopram Oxalate 10 MG Oral Tablet (Lexapro) Take 1 Tablet by mouth in the morning. 90 Tablet 1 Ferrous Sulfate 325 (65 Fe) MG Oral Tablet (Feosol) TAKE 1 TABLET BY MOUTH EVERY DAY WITH [id number] Tablet 1 Furosemide 20 MG Oral Tablet (Lasix) Take 1 Tablet by mouth in the morning. for fluid accumulation or weight gain. 90 Tablet 3 guaiFENesin ER 600 MG Oral Tablet Extended Release 12 Hour (Humibid LA) Take 1 Tablet by mouth in the morning and 1 Tablet before bedtime. 60 Tablet 3 Ipratropium-Albuterol 0.5-2.5 (3) MG/3ML Inhalation Solution (Duoneb) Inhale 3 mL via nebulizer every 4 hours as needed for Wheezing. 3ml vial in nebuilzer every four hours as needed for wheezing 3 mL 4 Lisinopril 10 MG Oral Tablet (Prinivil) Take 1 Tablet by mouth in the morning. 90 Tablet 3 Mesalamine 1.2 GM Oral Tablet Delayed Release (Lialda) Take 3 Tablets by mouth in the morning. 270 Tablet 3 Fish Oil 500 MG Oral Capsule Take by mouth. 90 Capsule 3 Pantoprazole Sodium 40 MG Oral Tablet Delayed Release (Protonix) Take 1 Tablet by mouth in the morning. 90 Tablet 3 Restasis 0.05 % Ophthalmic Emulsion INSTILL 1 DROP INTO EACH EYE TWICE DAILY 1.5 mL 5 Solifenacin Succinate 5 MG Oral Tablet (VESIcare) Take 1 Tablet by mouth in the morning. 90 Tablet 3 Vitamin C 500 MG Oral Tablet Chewable Take 1 Tablet by mouth in the morning. 30 Tablet 5 Rivaroxaban 15 MG Oral Tablet (Xarelto) Take 1 Tablet by mouth in the morning. 90 Tablet 3 PreserVision AREDS 2 Oral Tablet Chewable Take 1 Tablet by mouth daily. 90 Tablet 3 CPAP every night at bedtime. (Patient not taking: Reported on 06/19/2023) No current facility-administered medications for this visit. Immunization History Administered Date(s) Administered COVID-19 mRNA, LNP-s, No Preserve, 2-Dose Series (Moderna) 09/15/2020, 10/20/2020 COVID-19, mRNA, LNP-s, PF, Booster, 100mcg/0.5mg (Moderna) 06/01/2021 Pneumococcal Conjugate Vacc, 13 Valent (Prevnar) 12/01/2014, 05/16/2016 Pneumococcal Polysaccharide PPV23 (Pneumovax) 05/20/2010, 12/01/2013 TD, Preservative Free 09/01/1998 So no flu shot. She has CPAP but is not using it. She is o pantoprazole for the ulcer. O: Blood pressure 110/56, pulse 80, temperature 36.5 C (97.7 F), temperature source Tympanic, height 1.448 m (4' 9"), weight 78.5 kg (173 lb), SpO2 92%. Lungs sound a little tight but no rales orrhonchi. Heart regular. She has no pedal edema. She seems euvolemic A: Gastrointestinal hemorrhage associated with gastric ulcer (Primary) Stage 3b chronic kidney disease Essential (primary) hypertension Chronic hypoxemic respiratory failure (HCC) Paroxysmal atrial fibrillation (HCC) 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HCC) Continue other meds as before. Follow Up: Return in about 3 months (around 11/22/2023) for Clinic Visit. | For: Clinic Visit | Check-out note: Dr Mao documented in this encounter Plan of Treatment Upcoming Encounters Date Type Department Care Team (Late st Contact Info) Description 09/01/2023 12:00 PM EST [facility] [address] [place] [phone] Lynn Busby, DO [address] [place] [address] 10/23/2023 2:30 PM EDT Office Visit Rheumatology [address] [place] [phone] Jessica Stubbs [address] [place] [address] 10/31/2023 1:00 PM EDT Cardiac Studies Cardiac Studies, [facility] [address] [place] [address] 11/01/2023 9:30 AM EDT Procedure Only Endoscopy, [facility] [address] [place] [address] Gasper Kim, DO [address] [place] [address] 11/01/2023 10:00 AM EDT Procedure Only Endoscopy, [facility] [address] [place] [address] Gasper Kim, DO [address] [place] [address] 11/14/2023 12:20 PM EDT [facility] [address] [place] [address] Gasper Kim, DO [address] [place] [address] 11/23/2023 3:00 PM EDT Office Visit Family Medicine [address] [place] [phone] Betsey Cramer CRNP [address] [place] [address] [place] [address] 03/26/2024 1:30 PM EDT Office Visit Nephrology [address] [place] [address] Ayana Anna PA-C [address] [place] [address] 05/01/2024 3:00 PM EDT Office Visit Dermatology [address] [place] [address] Anya Pratt PA-C [address] [place] [address] [place] [address] Health Maintenance Due Date Last Done Comments DISCUSS TOBACCO CESSATION (REFER TO SMARTSET #9301) 1940 COVID-19 Vaccine ( season) 2023 06/01/2021, 10/20/2020, 09/15/2020 Influenza Vaccine (FLU shot) (#1) 2023 Albumin/Creatinine Ratio 08/15/2023 08/15/2022, 01/31 CKD PHOS USE SMARTSET 74359 12/28/202312/02, 04/26/2022, 11/23/2021, Additional history exists GFR 02/12/2024 08/14/2023, 01/31, 12/27/2022, Additional history exists DXA Scan 08/01/2024 08/01/2022, 07/05, 07/07/2020, Additional history exists CKD HGB USE SMARTSET 54643 08/16/202408/16, 08/14/2023, 08/14/2023, Additional history exists Depression Screening 08/21/2024 08/21/2023 O2 ASSESSMENT COMPLETED IN PAST YEAR FOR COPD 08/24/2024 08/24/2023 COLONOSCOPY-EVERY 5 YRS AGES 18-100 07/31/2028 07/31/2023, 02/23/2022, 02/23/2022, Additional history exists DTaP,Tdap,and Td Vaccines (2 - Td or Tdap) 08/07/2030 08/07/2020 (Not indicated), 09/01/1998 Pneumococcal Vaccine: 65+ Years Completed 05/16/2016, 12/01/2014, 12/01/2013, Additional history exists VITAMIN D LEVEL ONCE IN A LIFETIME-USE SMARTSET# [id number] Completed 12/27/2022, 08/12/2022, 03/15/2022, Additional history exists [...] as of this encounter Visit Diagnoses Diagnosis Gastrointestinal hemorrhage associated with gastric ulcer- Primary Stage 3b chronic kidney disease Essential (primary) hypertension Unspecified essential hypertension Chronic hypoxemic respiratory failure (HCC) Chronic respiratory failure Paroxysmal atrial fibrillation (HCC) Atrial fibrillation 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HCC) documented in this encounter Advance Directives Healthcare Agents on File Name Relationship Healthcare Agent Relationshi p Communication Juan Daniel Christofer Adult Child Health Care Repr esentative (appointed verbally by patient or by statute hierarchy) Care Teams Handicrafts Teacher Relationship Specialty Start Date End Date Tameka Hooper MD [address] [place] [address] [place] [address] PCP - General Family Medicine 05/29/19 documented as of this encounter
--- OUTSIDE RECORDS SUMMARY | 2023-08-29 03:50 | External Medical Summary | Summary of Care ---
Author Name Unknown Organization [facility] Address [address] [place] [address] Phone [phone] Care Team Providers Care Lens Mounter Name Role Phone Tameka Hooper MD Primary Care Prov ider Reason for Visit * Reason Onset Date Comments Home Health 08/21/2023 Encounter Details Date Type Department Care Team (Late st Contact Info) Description 08/21/2023 Telephone Family Medicine [address] [phone] Tameka Hooper MD [address] [place], [place] [address] [address] Home Health Allergies Active Allergy Reactions Criticality Noted Date Comments Amoxicillin Rash 02/07/2020 Bactrim Rash 12/15/2011 Ciprofloxacin Rash 12/15/2011 Diltiazem Rash 05/29/2019 Piroxicam Rash 12/15/2011 Cephalexin Rash 12/15/2011 Meloxicam Rash 05/29/2019 Other reaction(s): Other Cilostazol Rash,Unknown 12/15/2011 Sulfamethoxazole High 01/19/2023 Other Reaction(s): Rash Trimethoprim High 01/19/2023 Other Reaction(s): Rash documented as of this encounter (statuses as of 08/22/2023) Medications Medication Sig Dispensed Refills Start Date End Date Status oxygen IN GAS Use 3 L/min(Oxygen) as directed. Use with activity and sleep and at rest if 02 sat <92% 0 Active Prolia 60 MG/ML Subcutaneous Solution Prefilled Syringe Inject 60 mg under the skin every 6 months. 1 mL 0 03/15/2021 Active CPAP every night at bedtime. 0 Active Compressor NebulizerIndicatio ns:COPD, moderate (HCC) Inhale via nebulizer . Use as directed. 1 Each 1 02/14/2022 Active Triamcinolone Acetonide 0.5 % External Cream (Aristocort)Indica tions:Dermatitis APPLY TO AFFECTED AREA TWICE A DAY 60 g 5 07/07/2023 Active Acetaminophen 325 MG Oral Tablet (Tylenol) Take 1 Tablet by mouth every 6 hours as needed for Pain, Mild, Fever >38C(100.5F), Pain, Moderate or Pain, Severe. Pt takes 1/2 tab daily 0 08/11/2023 Active Albuterol Sulfate HFA 108 (90 Base) MCG/ACT Inhalation Aerosol SolutionIndication s:COPD, moderate (HCC) INHALE 2 PUFFS BY MOUTH NEEDED FOR COUGH, SHORTNESS OF BREATH OR WHEEZING. 18 g 5 08/17/2023 Active Anoro Ellipta 62.5-25 MCG/ACT Inhalation Aerosol Powder Breath Activated Inhale 1 Puff by mouth in the morning. 1 puff daily. 60 Blister Dosing Unit 3 08/17/2023 Active Budesonide 0.25 MG/2ML Inhalation Suspension (Pulmicort) INHALE CONTENTS OF ONE VIAL (2ML) TWICE DAILY 60 mL 4 08/17/2023 Active Calcium 1000 + D 1000-20 MG-MCG Oral Tablet (Calcium Carb-Cholecalcifer ol) Take 1 Tablet by mouth daily. 90 Tablet 2 08/17/2023 Active Escitalopram Oxalate 10 MG Oral Tablet (Lexapro)Indicatio ns:Major depressive disorder, single episode, unspecified Take 1 Tablet by mouth in the morning. 90 Tablet 1 08/17/2023 Active Ferrous Sulfate 325 (65 Fe) MG Oral Tablet (Feosol) TAKE 1 TABLET BY MOUTH EVERY DAY WITH BREAKFAST 90 Tablet 1 08/17/2023 Active Furosemide 20 MG Oral Tablet (Lasix) Take 1 Tablet by mouth in the morning. for fluid accumulation or weight gain. 90 Tablet 3 08/17/2023 Active guaiFENesin ER 600 MG Oral Tablet Extended Release 12 Hour (Humibid LA) Take 1 Tablet by mouth in the morning and 1 Tablet before bedtime. 60 Tablet 3 08/17/2023 Active Ipratropium-Albute rol 0.5-2.5 (3) MG/3ML Inhalation Solution (Duoneb) Inhale 3 mL via nebulizer every 4 hours as needed for Wheezing. 3ml vial in nebuilzer every four hours as needed for wheezing 3 mL 4 08/17/2023 Active Lisinopril 10 MG Oral Tablet (Prinivil)Indicati ons:Hypertensive kidney disease with stage 3b chronic kidney disease (HCC) Take 1 Tablet by mouth in the morning. 90 Tablet 3 08/17/2023 Active Mesalamine 1.2 GM Oral Tablet Delayed Release (Lialda) Take 3 Tablets by mouth in the morning. 270 Tablet 3 08/17/2023 Active Fish Oil 500 MG Oral Capsule Take by mouth. 90 Capsule 3 08/17/2023 Active Pantoprazole Sodium 40 MG Oral Tablet Delayed Release (Protonix) Take 1 Tablet by mouth in the morning. 90 Tablet 3 08/17/2023 Active Restasis 0.05 % Ophthalmic Emulsion INSTILL 1 DROP INTO EACH EYE TWICE DAILY 1.5 mL 5 08/17/2023 Active Solifenacin Succinate 5 MG Oral Tablet (VESIcare)Indicati ons:Urge incontinence,Urina ry frequency,Urinary urgency,Mixed incontinence Take 1 Tablet by mouth in the morning. 90 Tablet 3 08/17/2023 Active Systane 0.4-0.3 % Ophthalmic Solution (Artificial Tears) as needed 10 mL 5 08/17/2023 Active Additional Information Patient not taking.Reported on 08/21/2023 Vitamin C 500 MG Oral Tablet Chewable Take 1 Tablet by mouth in the morning. 30 Tablet 5 08/17/2023 Active Rivaroxaban 15 MG Oral Tablet (Xarelto)Indicatio ns:Chronic atrial fibrillation (HCC) Take 1 Tablet by mouth in the morning. 90 Tablet 3 08/17/2023 Active PreserVision AREDS 2 Oral Tablet Chewable Take 1 Tablet by mouth daily. 90 Tablet 3 08/17/2023 Active documented as of this encounter (statuses as of 08/22/2023) Active Problems Problem Noted Date Diagnosed Date [...] as of this encounter (statuses as of 08/22/2023) Resolved Problems Problem Noted Date Diagnosed Date [...] as of this encounter (statuses as of 08/22/2023) Immunizations Name Administration Dates Next Due COVID-19 [...] encounter Miscellaneous Notes * Addendum Note - Nury Vazquez LPN - 08/22/2023 2:45 PM ESTAddended by: NURY VAZQUEZ on: 08/22/2023 02:45 PM Modules accepted: Orders * Telephone Encounter - Nury Vazquez LPN - 08/22/2023 1:32 PM EST HH Concerns Madisyn RN, Calling from: [facility] Report/Concerns of: Medication Related Symptoms: none Vitals: T 97.5 P 81 RR 20 BP 152/48 138/52 SP O2 93 3 lpm Lung sounds diminished. Weight 157 Blood sugar n/a Narrative: Madisyn calling from [facility]. Patient was sent home from [facility]. There are medication discrepancies. Sent home with Carafate 4 times a day until . Not on our med list. Need all scripts sent to [facility] pharmacy to get blister packed. Pended. She has vitamin C with iron. The vitamin c is 125 mg. Supposed to be taking 500 mg. It is a combination pill of 325 mg of iron and 125 mg of vitamin C. Fish oil is 1000 at home. 500 on med list. Please advise. Patient does have an appt. On Call back Madisyn with any advice or orders at [phone] Please fax new orders to [phone] Left [facility] on Monday. Nebulizer pipe thrown away. Asking for a new one. * Telephone Encounter - Tameka Hooper MD - 08/21/2023 3:56 PM EST Noted * Telephone Encounter - Nury Vazquez LPN - 08/21/2023 2:28 PM EST Admission/Start of Care Admission/Start of Care: Madisyn RN, Calling from: [facility] Patient was Admitted to: [facility], for: GI Bleed and respiratory failure. Home for a couple hours and had resp. Failure and went back in to [facility]. then she went to [facility] for rehab. from 08/11 to 08/20 Referral ordered by: Rosina Bedolla Referral received for: [facility], PT, and OT Planned start of care date:Yes, Date 08/21/23 Start of care completed on: 08/21/23 Report/Concerns of: none Symptoms: none Vitals: T 97.6 P 79 RR 18 BP 138/66 SP O2 89 @ 3lpm n.c. Lung sounds clear, but diminished. Weight 156 lbs Blood sugar n/a Narrative: Madisyn calling from [facility]. Patient was at [facility]. Discharged home for 2 hours. Hadrespiratory failure and taken back to [facility]. From there went to [facility] for rehab. Next Nursing visit(s) on 08/22/23 They will call with any updates or additional concerns from the upcoming visit. Last Office Visit: 02/28/2023 Has patient been scheduled or seen in the office for a follow up visit: Yes- on 08/2223 Advised that orders will be signed by Dr. Tameka Cai and to fax to the office for signature. Call back madisyn with advice or orders at [phone] documented in this encounter Plan of Treatment Upcoming Encounters Date Type Department Care Team (Late st Contact Info) Description 08/24/2023 2:40 PM EST Office Visit Family Medicine [address] [place] [phone] Krishna Espana MD [address] [place] [address] [place] [address] 09/01/2023 12:00 PM EST [facility] [address] [place] [phone] Lynn Busby, DO [address] [place] [address] 10/23/2023 2:30 PM EDT Office Visit Rheumatology [address] [place] [phone] Jessica Stubbs CRNP [address] [place] [address] [place] [address] 10/31/2023 1:00 PM EDT [facility] [address] [place] [address] 11/01/2023 9:30 AM EDT Procedure Only Endoscopy, [facility] [address] [place] [address] Gasper Kim, [address] [place] [address] 11/01/2023 10:00 AM EDT Procedure Only Endoscopy, [facility] [address] [place] [address] Gasper Kim, DO [address] [place] [address] 11/14/2023 12:20 PM EDT [facility] [address] [place] [address] Gasper Kim, DO [address] [place] [address] 03/26/2024 1:30 PM EDT Office Visit Nephrology [address] [place] [address] Ayana Anna PA-C [address] [place] [address] 05/01/2024 3:00 PM EDT Office Visit Dermatology [address] [place] [address] Anya Pratt PA-C [address] [place] [address] [place] [address] Health Maintenance Due Date Last Done Comments DISCUSS TOBACCO CESSATION (REFER TO SMARTSET #3291) 1942 COVID-19 Vaccine ( season) 2023 06/01/2021, 10/20/2020, 09/15/2020 Influenza Vaccine (FLU shot) (#1) 2023 Albumin/Creatinine Ratio 08/15/2023 08/15/2022, 01/31 CKD PHOS USE SMARTSET 09799 12/28/202312/02, 04/26/2022, 11/23/2021, Additional history exists GFR 02/12/2024 08/14/2023, 01/31, 12/27/2022, Additional history exists O2 ASSESSMENT COMPLETED IN PAST YEAR FOR COPD 02/29/2024 02/28/2023 DXA Scan 08/01/2024 08/01/2022, 07/05, 07/07/2020, Additional history exists CKD HGB USE SMARTSET 39247 08/16/202408/16, 08/14/2023, 08/14/2023, Additional history exists Depression Screening 08/21/2024 08/21/2023 COLONOSCOPY-EVERY 5 YRS AGES 18-100 07/31/2028 07/31/2023, 02/23/2022, 02/23/2022, Additional history exists DTaP,Tdap,and Td Vaccines (2 - Td or Tdap) 08/07/2030 08/07/2020 (Not indicated), 09/01/1998 Pneumococcal Vaccine: 65+ Years Completed 05/16/2016, 12/01/2014, 12/01/2013, Additional history exists VITAMIN D LEVEL ONCE IN A LIFETIME-USE SMARTSET# [id number] Completed 12/27/2022, 08/12/2022, 03/15/2022, Additional history exists [...] as of this encounter Visit Diagnoses Diagnosis COPD, moderate (HCC) Chronic airway obstruction, not elsewhere classified Chronic atrial fibrillation (HCC) Atrial fibrillation Dermatitis Contact dermatitis and other eczema, due to unspecified cause Hypertensive kidney disease with stage 3b chronic kidney disease (HCC) Major depressive disorder, single episode, unspecified Urge incontinence Urinary frequency Urinary urgency Urgency of urination Mixed incontinence Mixed incontinence urge and stress (male)(female) documented in this encounter Advance Directives Healthcare Agents on File Name Relationship Healthcare Agent Relationshi p Communication Juan Daniel Beaulieu Adult Child Health Care Repr esentative (appointed verbally by patient or by statute hierarchy) Care Teams Lens Mounter Relationship Specialty Start Date End Date Tameka Hooper MD [address] [place] [address] [place] [phone] PCP - General Family Medicine 05/29/19 documented as of this encounter
--- OUTSIDE RECORDS SUMMARY | 2023-08-29 03:50 | External Medical Summary | Continuity Of Care Document ---
Author Name Unknown Address [address] [place] [address] Organization [facility]) Care Team Providers Care Remarketing Manager Name Role Phone Ephraim Burgess Primary Care Provider [phone] Allergies Allergy Reaction Start Date End Date Status AMOXIL Active BACTRIM Active CEPHALEXIN Active CILOSTAZOL Active CIPRO Active DILTIAZEM Active FELODIPINE Active MELOXICAM Active SULFA (SULFONAMIDE ANTIBIOTICS) Active Problems Code Description Start Date End Date Status J96.20 Acute and chronic re spiratory failure, unspecified whether with hypoxia or hypercapnia 08/11/2023 Active J44.9 Chronic obstructive pulmonary disease, unspecified 08/11/2023 Active R53.1 Weakness 08/11/2023 Active 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 Essential (primary) hypertension 08/11/2023 Active E78.5 Hyperlipidemia, unspecified 08/11/2023 00 Active Z93.3 Colostomy status 08/11/2023 Active G47.33 Obstructive sleep apnea (adult) (pediatric) 03/2024 Active VITAL SIGNS Date Time Diastolic blood pressure Systolic blood pressure Body height Body weight Temperature SpO2 Blood Sugar Pulse Respirations 58712 209 61237 4 57.00 mm[Hg] - Sitting 128.00 mm[Hg] - Sitting 60 NI 170.00 NI 98.30 Oral 90.00 % 70.00/ min 18.00/min 49039 209 91397 3 57.00 mm[Hg] - Sitting 128.00 mm[Hg] - Sitting 98.30 Ear 70.00/ min 18.00/min 16215 210 65396 5 68.00 mm[Hg] - Sitting 121.00 mm[Hg] - Sitting 170.00 NI 97.00 Ear 66.00/ min 18.00/min 11067 210 17229 5 57.00 mm[Hg] - Lying Down 128.00 mm[Hg] - Lying Down 170.00 NI 98.30 Ear 70.00/ min 18.00/min 03079 210 36938 9 170.00 NI 22758 210 28154 6 170.00 NI 73297 210 11727 0 68.00 mm[Hg] - Sitting 121.00 mm[Hg] - Sitting 97.00 Oral 93.00 % 66.00/ min 18.00/min 46784 211 39944 4 19602 211 75418 6 64.00 mm[Hg] - Sitting 119.00 mm[Hg] - Sitting 98.50 Oral 95.00 % 70.00/ min 18.00/min 39193 212 22576 0 61.00 mm[Hg] - Sitting 138.00 mm[Hg] - Sitting 97.50 Ear 93.00 % 64.00/ min 20.00/min 65067 212 44227 7 60 NI 15234 213 71340 8 68.00 mm[Hg] - Sitting 125.00 mm[Hg] - Sitting 97.30 Ear 94.00 % 67.00/ min 20.00/min 16966 214 55339 8 70.00 mm[Hg] - Sitting 164.00 mm[Hg] - Sitting 98.90 Oral 95.00 % 80.00/ min 20.00/min 55802 215 98937 1 45.00 mm[Hg] - Sitting 122.00 mm[Hg] - Sitting 97.00 Ear 95.00 % 60.00/ min 18.00/min 92079 216 61281 9 66.00 mm[Hg] - Sitting 164.00 mm[Hg] - Sitting 98.70 Ear 95.00 % 71.00/ min 18.00/min Immunizations Vaccine Date Status COVID-19 09/15/2020 Completed COVID-19 10/20/2020 Completed COVID-19 06/01/2021 Completed (PCV13)Pneumococcal 12/01/2014 Completed (PCV20)Pneumococcal 12/01/2013 Completed
--- OUTSIDE RECORDS SUMMARY | 2023-08-29 03:50 | External Medical Summary | Summary of Care ---
Author Name Unknown Organization [facility] Address [address] [place] [address] Phone [phone] Care Team Providers Care Manager Metrology Name Role Phone Tameka Hooper MD Primary Care Prov ider Reason for Visit * Reason Onset Date Comments [facility] Visit - Discharge 08/18/2023 Encounter Details Date Type Department Care Team (Latest Contact Info) Description 08/18/2023 6:00 AM EST [facility] Visit [facility] [address] [place] [address] Bouchra Slater PA-C [address] [place], [place] [phone] Acute on chronic respiratory failure with hypoxia (HCC)*; Bilateral pleural effusion; COPD, group B, by GOLD 2017 classification (HCC); Gastrointestinal hemorrhage associated with gastric ulcer; Hypertensive kidney disease with stage 3b chronic kidney disease (HCC); IBD (inflammatory bowel disease); Paroxysmal atrial fibrillation (HCC); Colostomy status ([facility]) Allergies Active Allergy Reactions Criticality Noted Date Comments Amoxicillin Rash 02/07/2020 Bactrim Rash 12/15/2011 Ciprofloxacin Rash 12/15/2011 Diltiazem Rash 05/29/2019 Piroxicam Rash 12/15/2011 Cephalexin Rash 12/15/2011 Meloxicam Rash 05/29/2019 Other reaction(s): Other Cilostazol Rash,Unknown 12/15/2011 Sulfamethoxazole High 01/19/2023 Other Reaction(s): Rash Trimethoprim High 01/19/2023 Other Reaction(s): Rash documented as of this encounter (statuses as of 08/18/2023) Medications Medication Sig Dispensed Refills Start Date [...] fluid accumulation or weight gain. 90 Tablet 08/17/2023 Active guaiFENesin ER 600 MG Oral Tablet Extended Release 12 Hour (Humibid LA) Take 1 Tablet by mouth in the morning and 1 Tablet before bedtime. 60 Tablet 08/17/2023 Active Ipratropium-Albute rol 0.5-2.5 (3) MG/3ML [...] by mouth in the morning. 90 Tablet 08/17/2023 Active Mesalamine 1.2 GM Oral Tablet Delayed Release (Lialda) Take 3 Tablets by mouth in the morning. 270 Tablet 08/17/2023 Active Fish Oil 500 MG Oral Capsule Take by mouth. 90 Capsule 08/17/2023 Active Pantoprazole Sodium 40 MG Oral Tablet Delayed Release (Protonix) Take 1 Tablet by mouth in the morning. 90 Tablet 08/17/2023 Active Restasis 0.05 % Ophthalmic Emulsion INSTILL 1 DROP INTO EACH EYE TWICE DAILY 1.5 mL 08/17/2023 Active Solifenacin Succinate 5 MG Oral Tablet (VESIcare)Indicati ons:Urge incontinence,Urina ry frequency,Urinary urgency,Mixed incontinence Take 1 Tablet by mouth in the morning. 90 Tablet 08/17/2023 Active Systane 0.4-0.3 % Ophthalmic Solution (Artificial Tears) as needed 10 mL 08/17/2023 Active Vitamin C 500 MG Oral Tablet Chewable Take 1 Tablet by mouth in the morning. 30 Tablet 08/17/2023 Active Rivaroxaban 15 MG Oral Tablet (Xarelto)Indicatio ns:Chronic atrial fibrillation (HCC) Take 1 Tablet by mouth in the morning. 90 Tablet 08/17/2023 Active PreserVision AREDS 2 Oral Tablet Chewable Take 1 Tablet by mouth daily. 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 Nephrolithiasis 08/16/2023 [...] as of this encounter (statuses as of 08/18/2023) Resolved Problems Problem Noted Date Diagnosed Date [...] as of this encounter (statuses as of 08/18/2023) Immunizations Name Administration Dates Next Due COVID-19 [...] 2:40 PM EST Office Visit Family Medicine [address] [place] [phone] Krishna Espana MD [address] [place] [address] [place] [address] 09/01/2023 12:00 PM EST Office Visit Sleep Disorders Ctr Nikole Reardon [address] [place] [phone] Lynn Busby DO [address] [facility] [place] [address] 10/23/2023 2:30 PM EDT Office Visit Rheumatology [address] [place] [phone] Jessica Stubbs CRNP [address] [place] [address] [place] [address] 10/31/2023 1:00 PM EDT Cardiac Studies Cardiac Studies, Veronica Reardon [place] [address] [facility] [place] [address] 11/01/2023 9:30 AM EDT Procedure Only Endoscopy, [facility] [address] [place], [place] [address] Gasper Kim, DO [address] [place], [place] [address] 11/01/2023 10:00 AM EDT Procedure Only Endoscopy, [facility] [address] [place], [place] [address] Gasper Kim, DO [address] [place], [place] [address] 11/14/2023 12:20 PM EDT Office Visit Gastroenterology, [facility] [address] [place], [place] [address] Gasper Kim, DO [address] [place] [address] 03/26/2024 1:30 PM EDT Office Visit Nephrology [address] [place] [address] ZemaitisAyana PA-C [facility] [place] [address] 05/01/2024 3:00 PM EDT Office Visit Dermatology [address] [place] [address] Anya Pratt PA-C [address] [place] [address] [place] [address] Health Maintenance Due Date Last Done Comments DISCUSS TOBACCO CESSATION (REFER TO SMARTSET #6183) 1942 COVID-19 Vaccine ( season) 2023 06/01/2021, 10/20/2020, 09/15/2020 Influenza Vaccine (FLU shot) (#1) 2023 Depression Screening 08/11/2023 08/11/2022 Albumin/Creatinine Ratio 08/15/2023 08/15/2022, 01/31 CKD PHOS USE SMARTSET 90600 12/28/202312/02, 04/26/2022, 11/23/2021, Additional history exists GFR 02/12/2024 08/14/2023, 01/31, 12/27/2022, Additional history exists O2 ASSESSMENT COMPLETED IN PAST YEAR FOR COPD 02/29/2024 02/28/2023 DXA Scan 08/01/2024 08/01/2022, 07/05, 07/07/2020, Additional history exists CKD HGB USE SMARTSET 55714 08/16/202408/16, 08/14/2023, 08/14/2023, Additional history exists COLONOSCOPY-EVERY 5 YRS AGES 18-100 07/31/2028 07/31/2023, 02/23/2022, 02/23/2022, Additional history exists DTaP,Tdap,and Td Vaccines (2 - Td or Tdap) 08/07/2030 08/07/2020 (Not indicated), 09/01/1998 Pneumococcal Vaccine: 65+ Years Completed 05/16/2016, 12/01/2014, 12/01/2013, Additional history exists VITAMIN D LEVEL ONCE IN A LIFETIME-USE SMARTSET# [id number] Completed 12/27/2022, 08/12/2022, 03/15/2022, Additional history exists [...] of this encounter Visit Diagnoses Diagnosis Acute on chronic respiratory failure with hypoxia (HCC)- Primary Bilateral pleural effusion Unspecified pleural effusion COPD, group B, by GOLD 2017 classification (HCC) Gastrointestinal hemorrhage associated with gastric ulcer Hypertensive kidney disease with stage 3b chronic kidney disease (HCC) IBD (inflammatory bowel disease) Other and unspecified noninfectious gastroenteritis and colitis Paroxysmal atrial fibrillation (HCC) Atrial fibrillation Colostomy status (HCC) Colostomy status documented in this encounter Care Teams Manager Metrology Relationship Specialty Start Date End Date Tameka Hooper MD [address] [place] [address] [place] [address] PCP - General Family Medicine 05/29/19 documented as of this encounter
--- OUTSIDE RECORDS SUMMARY | 2023-08-29 03:50 | External Medical Summary | Summary of Care ---
Author Name Unknown Organization [facility] Address [address] [place] [address] Phone [phone] Care Team Providers Care Respiratory Therapy Manager Name Role Phone Tameka Hooper MD Primary Care Prov ider Reason for Referral * Evaluate & Treat - Unlimited Visits (Within 10 days (routine)) - Authorized Specialty Diagnoses / Procedures Referred By Contchanel araujo Referred To Contact HOME CARE / Home Care Diagnoses Chronic hypoxemic respiratory failure (HCC) Bouchra Sltaer PA-C [address] [place] [id number] Referral ID Status Reason Start Date Expiration Date Visits Requested Visits Authorized [id number] Authorized Specialty Services Required 08/17/2023 999 999 Question Answer Referral Priority Within 10 days (routine) Where should this appointment be scheduled? [facility] Comments ocumentation of Elff-mu-Kuqc Encounter Addendum Patient Name: Eliazar Beaulieu I certify that this patient is under my care and that I, or a nurse practitioner or physician's contact center assistant working with me, had a [id number]-[id number] encounter that meets the physician pycp-di-gziw encounter requirements with this patient on: 08/17/23 The encounter with the patient was in whole, or in part, for the following medical condition, which is the primary reason for home health care (List medical condition): Codes Comments Chronic hypoxemic respiratory failure (HCC) - Primary J96.11 Gastrointestinal hemorrhage associated with gastric ulcer K25.4 Pleural effusion, bilateral J90 Acute blood loss anemia D62 COPD, group B, by GOLD 2017 classification (HCC) J44.9 IBD (inflammatory bowel disease) K52.9 Paroxysmal atrial fibrillation (HCC) I48.0 Hiatal hernia K44.9 Colostomy status (HCC) Z93.3 Hypertensive kidney disease with stage 3b chronic kidney disease (HCC) I12.9, N18.32 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, J44.9 Nephrolithiasis N20.0 I certify that, based on my findings, the following services are medically necessary home health services: Nursing, Physical Therapy, and OT To provide the following care/treatments: (All hospitalists not following the patient after discharge should complete this section): Primary Care Physician to follow home care plan of care after discharge: 5 to 7days My clinical findings support the need for the above services because: limited mobility and easily fatigued and dyspneic with walking, prolonged standing Further, I certify that my clinical findings support that this patient is homebound (i.e. Absences from home require considerable and taxing effort and are for medical reasons or [employer] services or infrequently or of short duration when for other reason) because: limited mobility and easily fatigued and dyspneic with walking, prolonged standing Physician Signature: Date of Signature: Physician Printed Name: Bouchra Slater PA-C Encounter Details Date Type Department Care Team (Late st Contact Info) Description 08/17/2023 Orders Only [address] [place] [address] Bouchra Slater PA-C [address] [facility] [place] [address] Chronic hypoxemic respiratory failure (HCC)*; COPD, moderate (HCC); Major depressive disorder, single episode, unspecified; Urge incontinence; Urinary frequency; Urinary urgency; Mixed incontinence; Chronic atrial fibrillation (HCC); Hypertensive kidney disease with stage 3b chronic kidney disease (HCC) Allergies Active Allergy Reactions Criticality Noted Date Comments Amoxicillin Rash 02/07/2020 Bactrim Rash 12/15/2011 Ciprofloxacin Rash 12/15/2011 Diltiazem Rash 05/29/2019 Piroxicam Rash 12/15/2011 Cephalexin Rash 12/15/2011 Meloxicam Rash 05/29/2019 Other reaction(s): Other Cilostazol Rash,Unknown 12/15/2011 Sulfamethoxazole High 01/19/2023 Other Reaction(s): Rash Trimethoprim High 01/19/2023 Other Reaction(s): Rash documented as of this encounter (statuses as of 08/17/2023) Medications Medication Sig Dispensed Refills Start Date End Date Status oxygen IN GAS Use 3 L/min(Oxygen) as directed. Use with activity and sleep and at rest if 02 sat <92% 0 Active Prolia 60 MG/ML Subcutaneous Solution Prefilled Syringe Inject 60 mg under the skin every 6 months. 1 mL 0 1 Active CPAP every night at bedtime. 0 Active Compressor NebulizerIndicat ions:COPD, moderate (HCC) Inhale via nebulizer . Use as directed. 1 Each 1 2 Active Triamcinolone Acetonide 0.5 % External Cream (Aristocort)Silvana cations:Dermatit is APPLY TO AFFECTED AREA TWICE A DAY 60 g 5 4 Active Acetaminophen 325 MG Oral Tablet (Tylenol) Take 1 Tablet by mouth every 6 hours as needed for Pain, Mild, Fever >38C(100.5F), Pain, Moderate or Pain, Severe. Pt takes 1/2 tab daily 0 4 Active Albuterol Sulfate HFA 108 (90 Base) MCG/ACT Inhalation Aerosol SolutionIndicati ons:COPD, moderate (HCC) INHALE 2 PUFFS BY MOUTH [...] + D 1000-20 MG-MCG Oral Tablet (Calcium Carb-Cholecalcif donna) Take 1 Tablet by mouth daily. 90 Tablet 2 4 Active Escitalopram Oxalate 10 MG Oral Tablet (Lexapro)Indicat ions:Major depressive disorder, single episode, unspecified Take 1 [...] before bedtime. 60 Tablet 3 4 Active Ipratropium-Albu terol 0.5-2.5 (3) MG/3ML Inhalation Solution (Duoneb) Inhale 3 mL via nebulizer every 4 hours as needed for Wheezing. 3ml vial in nebuilzer every four hours as needed for wheezing 3 mL 4 4 Active Lisinopril 10 MG Oral Tablet (Prinivil)Indica tions:Hypertensi ve kidney disease with stage 3b chronic kidney [...] the morning. 90 Tablet 3 4 Active Systane 0.4-0.3 % Ophthalmic Solution (Artificial Tears) as needed 10 mL 5 4 Active Vitamin C 500 MG Oral Tablet Chewable Take 1 Tablet by mouth in the morning. 30 Tablet 5 4 Active Rivaroxaban 15 MG Oral Tablet (Xarelto)Indicat ions:Chronic atrial fibrillation (HCC) Take 1 Tablet by mouth in the morning. 90 Tablet 3 4 Active PreserVision AREDS 2 Oral Tablet Chewable Take 1 Tablet by mouth daily. 90 Tablet 3 4 Active [place]-3 Fatty Acids (FISH OIL) 500 MG Capsule Take by mouth. 0 08/17/19 24 Discontinued PRESERVISION AREDS 2 PO CAPS 1 tab daily 0 08/17/19 24 Discontinued SYSTANE 0.4-0.3 % OP SOLN as needed 0 08/17/19 24 Discontinued guaiFENesin ER 600 MG Oral Tablet Extended Release 12 Hour Take 1 Tablet by mouth in the morning and 1 Tablet before bedtime. 0 08/17/19 24 Discontinued ANORO ELLIPTA 62.5-25 MCG/INH AEPB 1 puff daily 0 0 08/17/19 24 Discontinued Vitamin C 500 MG Oral Tablet Chewable Take 1 Tablet by mouth in the morning. 30 Tab 5 0 08/17/19 24 Discontinued Restasis 0.05 % Ophthalmic Emulsion INSTILL 1 DROP INTO EACH EYE TWICE DAILY 0 1 08/17/19 24 Discontinued Calcium 600 + D 600-200 MG-UNIT Oral Tablet (Calcium Carb-Cholecalcif donna) Take 1 Tab by mouth daily. 0 08/17/19 24 Discontinued(Ny dication List Clean Up) Mesalamine 1.2 GM Oral Tablet Delayed Release (Lialda) TAKE BY MOUTH 3 TABLETS IN THE MORNING. 270 Tablet 3 3 08/17/19 24 Discontinued Solifenacin Succinate 5 MG Oral Tablet (VESIcare)Indica tions:Urge incontinence,Uri nary frequency,Urinar y urgency,Mixed incontinence Take 1 Tablet by mouth in the morning. 90 Tablet 3 3 08/17/19 24 Discontinued Xarelto 15 MG Oral Tablet (Rivaroxaban)Ind ications:Chronic atrial fibrillation (HCC) TAKE 1 TABLET BY MOUTH EVERY DAY 90 Tablet 3 3 08/17/19 24 Discontinued Budesonide 0.25 MG/2ML Inhalation Suspension INHALE CONTENTS OF ONE VIAL (2ML) TWICE DAILY 0 3 08/17/19 24 Discontinued Ferrous Sulfate 325 (65 Fe) MG Oral Tablet (Feosol) TAKE 1 TABLET BY MOUTH EVERY DAY WITH BREAKFAST 90 Tablet 1 3 08/17/19 24 Discontinued Albuterol Sulfate HFA 108 (90 Base) MCG/ACT Inhalation Aerosol SolutionIndicati ons:COPD, moderate (HCC) INHALE 2 PUFFS BY MOUTH NEEDED FOR COUGH, SHORTNESS OF BREATH OR WHEEZING. 18 g 5 3 08/17/19 24 Discontinued Escitalopram Oxalate 10 MG Oral Tablet (Lexapro)Indicat ions:Major depressive disorder, single episode, unspecified TAKE 1 TABLET BY MOUTH EVERY DAY 90 Tablet 1 4 08/17/19 24 Discontinued Ipratropium-Albu terol 0.5-2.5 (3) MG/3ML Inhalation Solution (Duoneb) Inhale 3 mL via nebulizer every 4 hours as needed for Wheezing. 0 4 08/17/19 24 Discontinued Lisinopril 10 MG Oral Tablet (Prinivil) Take 1 Tablet by mouth in the morning. 0 4 08/17/19 24 Discontinued Verapamil HCl ER 120 MG Oral Tablet Extended Release (Isoptin SR) Take 1 Tablet by mouth in the morning. 0 4 08/17/19 24 Discontinued Pantoprazole Sodium 40 MG Oral Tablet Delayed Release (Protonix) Take 1 Tablet by mouth in the morning. 0 4 08/17/19 24 Discontinued Furosemide 20 MG Oral Tablet (Lasix) Take 1 Tablet by mouth in the morning. for fluid accumulation or weight gain. 0 4 08/17/19 24 Discontinued Calcium 1000 + D 1000-20 MG-MCG Oral Tablet (Calcium Carb-Cholecalcif donna) Take 1 Tablet by mouth daily. 0 4 08/17/19 24 Discontinued(Re fill) documented as of this encounter (statuses as of 08/17/2023) Active Problems Problem Noted Date Diagnosed Date [...] as of this encounter (statuses as of 08/17/2023) Resolved Problems Problem Noted Date Diagnosed Date [...] as of this encounter (statuses as of 08/17/2023) Immunizations Name Administration Dates Next Due COVID-19 [...] Team (Late st Contact Info) Description 08/24/2023 10:20 AM EST Office Visit Family Medicine [address] [place] [phone] Krishna Espana MD [address] [place] [address] [place] [address] 09/01/2023 12:00 PM EST Office Visit Sleep Disorders Ctr [address] [place] [phone] Lynn Busby DO [address] [facility] [place] [address] 10/23/2023 2:30 PM EDT Office Visit Rheumatology [address] [place] [phone] Jessica Stubbs CRNP [address] [place] [address] [place] [address] 10/31/2023 1:00 PM EDT Cardiac Studies Cardiac Studies, [facility] [address] [facility] [place] [address] 11/01/2023 9:30 AM EDT Procedure Only Endoscopy, [place] [address] [place], [place] [address] Gasper Kim, DO [address] [place], [place] [address] 11/01/2023 10:00 AM EDT Procedure Only Endoscopy, Drew Granados [address] [place], [place] [address] Gasper Kim, DO [address] [place] [address] 11/14/2023 12:20 PM EDT Office Visit Gastroenterology, [facility] [address] [place] [address] Gasper Kim, DO [address] [place] [address] 03/26/2024 1:30 PM EDT Office Visit Nephrology [address] [place] [address] ZemaitisAyana PA-C [address] [place] [address] 05/01/2024 3:00 PM EDT Office Visit Dermatology [address] [place] [address] Anya Pratt PA-C [address] [place] [address] [place] [address] Scheduled Referrals Name Type Priority Associated Diagnoses Orde r Schedule HOME HEALTH REFERRAL OP Referral Within 10 days (routine) Chronic hypoxemic respiratory failure (HCC) Ordered: 08/17/2023 Health Maintenance Due Date Last Done Comments DISCUSS TOBACCO CESSATION (REFER TO SMARTSET #3291) 1942 COVID-19 Vaccine ( season) 2023 06/01/2021, 10/20/2020, 09/15/2020 Influenza Vaccine (FLU shot) (#1) 2023 Depression Screening 08/11/2023 08/11/2022 Albumin/Creatinine Ratio 08/15/2023 08/15/2022, 01/31 CKD PHOS USE SMARTSET 97094 12/28/202312/02, 04/26/2022, 11/23/2021, Additional history exists GFR 02/12/2024 08/14/2023, 01/31, 12/27/2022, Additional history exists O2 ASSESSMENT COMPLETED IN PAST YEAR FOR COPD 02/29/2024 02/28/2023 DXA Scan 08/01/2024 08/01/2022, 07/05, 07/07/2020, Additional history exists CKD HGB USE SMARTSET 98199 08/16/202408/16, 08/14/2023, 08/14/2023, Additional history exists COLONOSCOPY-EVERY 5 YRS AGES 18-100 07/31/2028 07/31/2023, 02/23/2022, 02/23/2022, Additional history exists DTaP,Tdap,and Td Vaccines (2 - Td or Tdap) 08/07/2030 08/07/2020 (Not indicated), 09/01/1998 Pneumococcal Vaccine: 65+ Years Completed 05/16/2016, 12/01/2014, 12/01/2013, Additional history exists VITAMIN D LEVEL ONCE IN A LIFETIME-USE SMARTSET# [id number] Completed 12/27/2022, 08/12/2022, 03/15/2022, Additional history exists [...] of this encounter Visit Diagnoses Diagnosis Chronic hypoxemic respiratory failure (HCC)- Primary Chronic respiratory failure COPD, moderate (HCC) Chronic airway obstruction, not elsewhere classified Major depressive disorder, single episode, unspecified Urge incontinence Urinary frequency Urinary urgency Urgency of urination Mixed incontinence Mixed incontinence urge and stress (male)(female) Chronic atrial fibrillation (HCC) Atrial fibrillation Hypertensive kidney disease with stage 3b chronic kidney disease (HCC) documented in this encounter Care Teams Respiratory Therapy Manager Relationship Specialty Start Date End Date Tameka Hooper MD [address] [place] [address] [place] [phone] PCP - General Family Medicine 05/29/19 documented as of this encounter
--- OUTSIDE RECORDS SUMMARY | 2023-08-29 03:50 | External Medical Summary | Continuity Of Care Document ---
Author Name Unknown Address [address] [place] [address] Organization [facility]) Care Team Providers Care Vending Machine Refiller Name Role Phone Ephraim Burgess Primary Care Provider [phone] Allergies Allergy Reaction Start Date End Date [...] weight Temperature SpO2 Blood Sugar Pulse Respirations 85849 209 78067 4 57.00 mm[Hg] - Sitting 128.00 mm[Hg] - Sitting 60 NI 170.00 NI 98.30 Oral 90.00 % 70.00/ min 18.00/min 06028 209 98929 3 57.00 mm[Hg] - Sitting 128.00 mm[Hg] - Sitting 98.30 Ear 70.00/ min 18.00/min 45213 210 74730 5 68.00 mm[Hg] - Sitting 121.00 mm[Hg] - Sitting 170.00 NI 97.00 Ear 66.00/ min 18.00/min 51451 210 18786 5 57.00 mm[Hg] - Lying Down 128.00 mm[Hg] - Lying Down 170.00 NI 98.30 Ear 70.00/ min 18.00/min 47471 210 11466 9 170.00 NI 29889 210 21893 6 170.00 NI 33294 210 24479 0 68.00 mm[Hg] - Sitting 121.00 mm[Hg] - Sitting 97.00 Oral 93.00 % 66.00/ min 18.00/min 09371 211 19916 4 11258 211 99718 6 64.00 mm[Hg] - Sitting 119.00 mm[Hg] - Sitting 98.50 Oral 95.00 % 70.00/ min 18.00/min 85578 212 81219 0 61.00 mm[Hg] - Sitting 138.00 mm[Hg] - Sitting 97.50 Ear 93.00 % 64.00/ min 20.00/min 32780 212 13806 7 60 NI 34496 213 91681 8 68.00 mm[Hg] - Sitting 125.00 mm[Hg] - Sitting 97.30 Ear 94.00 % 67.00/ min 20.00/min 04048 214 68408 8 70.00 mm[Hg] - Sitting 164.00 mm[Hg] - Sitting 98.90 Oral 95.00 % 80.00/ min 20.00/min 99492 215 48585 1 45.00 mm[Hg] - Sitting 122.00 mm[Hg] - Sitting 97.00 Ear 95.00 % 60.00/ min 18.00/min 31264 216 02747 9 66.00 mm[Hg] - Sitting 164.00 mm[Hg] - Sitting 98.70 Ear 95.00 % 71.00/ min 18.00/min 12010 216 21861 1 170.00 NI 03855 216 60336 9 170.00 NI 66470 217 46316 4 169.00 NI 98557 217 53166 7 97.30 Ear 93.00 % 84.00/ min 20.00/min 97578 217 05502 9 63.00 mm[Hg] - Sitting 134.00 mm[Hg] - Sitting 45864 218 79965 5 168.00 NI Immunizations Vaccine Date Status COVID-19 09/15/2020 Completed COVID-19 10/20/2020 Completed COVID-19 06/01/2021 Completed (PCV13)Pneumococcal 12/01/2014 Completed (PCV20)Pneumococcal 12/01/2013 Completed
--- OUTSIDE RECORDS SUMMARY | 2023-08-29 03:50 | External Medical Summary | Summary of Care ---
Author Name Unknown Organization [facility] Address [address] [place] [address] Phone [phone] Care Team Providers Care Guide Changer Name Role Phone Tameka Hooper MD Primary Care Prov ider Reason for Visit * Reason Onset Date Comments Med Request 08/21/2023 Encounter Details Date Type Department Care Team (Late st Contact Info) Description 08/21/2023 Telephone Family Medicine [address] [phone] Tameka Hooper MD [address] [place], [place] [address] [address] Med Request Allergies Active Allergy Reactions Criticality Noted Date [...] EST HH Concerns Madisyn RN, Calling from: [facility] Report/Concerns of: Medication Related Symptoms: none Vitals: T 97.5 P 81 RR 20 BP 152/48 138/52 SP O2 93 3 lpm Lung sounds diminished. Weight 157 Blood sugar n/a Narrative: Madisyn calling from [facility]. Patient was sent home from [facility]. There are medication discrepancies. Sent home with Carafate 4 times a day until . Not on our med list. Need all scripts sent to [facility] to get blister packed. [...] Madisyn with any advice or orders at [phone] Please fax new orders to [phone] Left [facility] on Monday. Nebulizer pipe thrown away. Asking for a new one. * Telephone Encounter - Tameka Hooper MD - 08/21/2023 3:56 PM EST Noted * Telephone Encounter - Nury Vazquez LPN - 08/21/2023 2:28 PM EST Admission/Start of Care Admission/Start of Care: Madisyn RN, Calling from: [facility] Patient was Admitted to: [facility], for: GI Bleed and respiratory failure. Home for a couple hours and had resp. Failure and went back in to [facility]. then she went to [facility] for rehab. from 08/11 to 08/20 Referral ordered by: Rosina Bedolla Referral received for: [facility], PT, and OT Planned start of care date:Yes, Date 08/21/23 Start of care completed on: 08/21/23 Report/Concerns of: none Symptoms: none Vitals: T 97.6 P 79 RR 18 BP 138/66 SP O2 89 @ 3lpm n.c. Lung sounds clear, but diminished. Weight 156 lbs Blood sugar n/a Narrative: Madisyn calling from [facility]. Patient was at [facility]. Discharged home for 2 hours. Hadrespiratory failure and taken back to [facility]. From there went to [facility] for rehab. Next Nursing visit(s) on [...] back madisyn with advice or orders at [phone] documented in this encounter Plan of Treatment Upcoming Encounters Date Type Department Care Team (Late st Contact Info) Description 08/24/2023 2:40 PM EST Office Visit Family Medicine [address] [place] [phone] Krishna Espana MD [address] [place] [address] [place] [address] 09/01/2023 12:00 PM EST [facility] [address] [place] [phone] Lynn Busby, DO [address] [place] [address] 10/23/2023 2:30 PM EDT Office Visit Rheumatology [address] [place] [phone] Jessica Stubbs CRNP [address] [place] [address] [place] [address] 10/31/2023 1:00 PM EDT [facility] [address] [place] [address] 11/01/2023 9:30 AM EDT Procedure Only Endoscopy, [facility] [address] [place] [address] Gasper Kim, [address] [place] [address] 11/01/2023 10:00 AM EDT Procedure Only Endoscopy, [facility] [address] [place] [address] Gasper Kim, DO [address] [place] [address] 11/14/2023 12:20 PM EDT [facility] [address] [place] [address] Gasper Kim, DO [address] [place] [address] 03/26/2024 1:30 PM EDT Office Visit Nephrology [address] [place] [address] Ayana Anna PA-C [address] [place] [address] 05/01/2024 3:00 PM EDT Office Visit Dermatology [address] [place] [address] Anya Pratt PA-C [address] [place] [address] [place] [address] Health Maintenance Due Date Last Done Comments DISCUSS TOBACCO CESSATION (REFER TO SMARTSET #3291) 1942 COVID-19 Vaccine ( season) 2023 06/01/2021, 10/20/2020, 09/15/2020 Influenza Vaccine (FLU shot) (#1) 2023 Albumin/Creatinine Ratio 08/15/2023 08/15/2022, 01/31 CKD PHOS USE SMARTSET 05849 12/28/202312/02, 04/26/2022, 11/23/2021, Additional history exists GFR 02/12/2024 08/14/2023, 01/31, 12/27/2022, Additional history exists O2 ASSESSMENT COMPLETED IN PAST YEAR FOR COPD 02/29/2024 02/28/2023 DXA Scan 08/01/2024 08/01/2022, 07/05, 07/07/2020, Additional history exists CKD HGB USE SMARTSET 62409 08/16/202408/16, 08/14/2023, 08/14/2023, Additional history exists Depression Screening 08/21/2024 08/21/2023 COLONOSCOPY-EVERY 5 YRS AGES 18-100 07/31/2028 07/31/2023, 02/23/2022, 02/23/2022, Additional history exists DTaP,Tdap,and Td Vaccines (2 - Td or Tdap) 08/07/2030 08/07/2020 (Not indicated), 09/01/1998 Pneumococcal Vaccine: 65+ Years Completed 05/16/2016, 12/01/2014, 12/01/2013, Additional history exists VITAMIN D LEVEL ONCE IN A LIFETIME-USE SMARTSET# 79870 Completed 12/27/2022, 08/12/2022, 03/15/2022, Additional history exists [...] patient or by statute hierarchy) Care Teams Guide Changer Relationship Specialty Start Date End Date Tameka Hooper MD [address] [place] [address] [place] [phone] PCP - General Family Medicine 05/29/19 documented as of this encounter
--- OUTSIDE RECORDS SUMMARY | 2023-08-29 03:50 | External Medical Summary | Summary of Care ---
Author Name Unknown Organization [facility] Address [address] [place] [address] Phone [phone] Care Team Providers Care Spinner Frame Name Role Phone Tameka Hooper MD Primary Care Prov ider Reason for Visit * Reason Onset Date Comments Alf Visit - Discharge 08/18/2023 Encounter Details Date Type Department Care Team (Latest Contact Info) Description 08/18/2023 6:00 AM EST Alf Visit [facility] [place] [address] [place] [address] Bouchra Slater PA-C [address] [place], [place] [phone] Acute on chronic respiratory failure with hypoxia (HCC)*; Bilateral pleural effusion; COPD, group B, by GOLD 2017 classification (HCC); Gastrointestinal hemorrhage associated with gastric ulcer; Hypertensive kidney disease with stage 3b chronic kidney disease (HCC); IBD (inflammatory bowel disease); Paroxysmal atrial fibrillation (HCC); Colostomy status ([facility]) Allergies Active Allergy Reactions Criticality Noted Date [...] 10:20 AM EST Office Visit Family Medicine [address] [place] [phone] Krishna Espana MD [address] [place] [address] [place] [address] 09/01/2023 12:00 PM EST Office Visit Sleep Disorders Ctr Nikole Reardon [address] [place] [phone] Lynn Busby DO [facility] [place] [address] 10/23/2023 2:30 PM EDT Office Visit Rheumatology [address] [place] [phone] Jessica Stubbs CRNP [address] [place] [address] [place] [address] 10/31/2023 1:00 PM EDT Cardiac Studies Cardiac Studies, Veronica Reardon [place] [address] [facility] [place] [address] 11/01/2023 9:30 AM EDT Procedure Only Endoscopy, [place] [address] [place], [place] [address] Gasper Kim, DO [address] [place], [place] [address] 11/01/2023 10:00 AM EDT Procedure Only Endoscopy, [facility] [address] [place], [place] [address] Gasper Kim, DO [address] [place], [place] [address] 11/14/2023 12:20 PM EDT Office Visit Gastroenterology, [facility] [address] [place], [place] [address] Gasper Kim, DO [address] [place] [address] 03/26/2024 1:30 PM EDT Office Visit Nephrology [address] [place] [address] ZemaitisAyana PA-C [facility] [place] [address] 05/01/2024 3:00 PM EDT Office Visit Dermatology [address] [place] [address] Anya Pratt PA-C [address] [place] [address] [place] [address] Health Maintenance Due Date Last Done Comments DISCUSS TOBACCO CESSATION (REFER TO SMARTSET #3307) 1942 COVID-19 Vaccine ( season) 2023 06/01/2021, 10/20/2020, 09/15/2020 Influenza Vaccine (FLU shot) (#1) 2023 Depression Screening 08/11/2023 08/11/2022 Albumin/Creatinine Ratio 08/15/2023 08/15/2022, 01/31 CKD PHOS USE SMARTSET 12094 12/28/202312/02, 04/26/2022, 11/23/2021, Additional history exists GFR 02/12/2024 08/14/2023, 01/31, 12/27/2022, Additional history exists O2 ASSESSMENT COMPLETED IN PAST YEAR FOR COPD 02/29/2024 02/28/2023 DXA Scan 08/01/2024 08/01/2022, 07/05, 07/07/2020, Additional history exists CKD HGB USE SMARTSET 92888 08/16/202408/16, 08/14/2023, 08/14/2023, Additional history exists COLONOSCOPY-EVERY 5 YRS AGES 18-100 07/31/2028 07/31/2023, 02/23/2022, 02/23/2022, Additional history exists DTaP,Tdap,and Td Vaccines (2 - Td or Tdap) 08/07/2030 08/07/2020 (Not indicated), 09/01/1998 Pneumococcal Vaccine: 65+ Years Completed 05/16/2016, 12/01/2014, 12/01/2013, Additional history exists VITAMIN D LEVEL ONCE IN A LIFETIME-USE SMARTSET# 35538 Completed 12/27/2022, 08/12/2022, 03/15/2022, Additional history exists [...] status documented in this encounter Care Teams Spinner Frame Relationship Specialty Start Date End Date Tameka Hooper MD [address] [place] [address] [place] [address] PCP - General Family Medicine 05/29/19 documented as of this encounter
--- OUTSIDE RECORDS SUMMARY | 2023-08-29 03:50 | External Medical Summary | Continuity Of Care Document ---
Author Name Unknown Address [address] [place] [address] Organization [facility]) Care Team Providers Care Assistant Manager Of Operations Name Role Phone Ephraim Burgess Primary Care Provider [phone] Allergies Allergy Reaction Start Date End Date [...] weight Temperature SpO2 Blood Sugar Pulse Respirations 43389 209 72055 4 57.00 mm[Hg] - Sitting 128.00 mm[Hg] - Sitting 60 NI 170.00 NI 98.30 Oral 90.00 % 70.00/ min 18.00/min 43113 209 90618 3 57.00 mm[Hg] - Sitting 128.00 mm[Hg] - Sitting 98.30 Ear 70.00/ min 18.00/min 91162 210 30606 5 68.00 mm[Hg] - Sitting 121.00 mm[Hg] - Sitting 170.00 NI 97.00 Ear 66.00/ min 18.00/min 01900 210 30996 5 57.00 mm[Hg] - Lying Down 128.00 mm[Hg] - Lying Down 170.00 NI 98.30 Ear 70.00/ min 18.00/min 85227 210 31478 9 170.00 NI 04200 210 23082 6 170.00 NI 49332 210 85076 0 68.00 mm[Hg] - Sitting 121.00 mm[Hg] - Sitting 97.00 Oral 93.00 % 66.00/ min 18.00/min 56494 211 65912 4 57488 211 22555 6 64.00 mm[Hg] - Sitting 119.00 mm[Hg] - Sitting 98.50 Oral 95.00 % 70.00/ min 18.00/min 01562 212 79545 0 61.00 mm[Hg] - Sitting 138.00 mm[Hg] - Sitting 97.50 Ear 93.00 % 64.00/ min 20.00/min 62464 212 44510 7 60 NI 86734 213 69354 8 68.00 mm[Hg] - Sitting 125.00 mm[Hg] - Sitting 97.30 Ear 94.00 % 67.00/ min 20.00/min 47086 214 64472 8 70.00 mm[Hg] - Sitting 164.00 mm[Hg] - Sitting 98.90 Oral 95.00 % 80.00/ min 20.00/min 49081 215 78142 1 45.00 mm[Hg] - Sitting 122.00 mm[Hg] - Sitting 97.00 Ear 95.00 % 60.00/ min 18.00/min 24222 216 10912 9 66.00 mm[Hg] - Sitting 164.00 mm[Hg] - Sitting 98.70 Ear 95.00 % 71.00/ min 18.00/min 84018 216 36672 1 170.00 NI 00893 216 69794 9 170.00 NI Immunizations Vaccine Date Status COVID-19 09/15/2020 Completed COVID-19 10/20/2020 Completed COVID-19 06/01/2021 Completed (PCV13)Pneumococcal 12/01/2014 Completed (PCV20)Pneumococcal 12/01/2013 Completed
--- OUTSIDE RECORDS SUMMARY | 2023-08-29 03:50 | External Medical Summary | Summary of Care ---
Author Name Unknown Organization [facility] Address [address] [place] [address] Phone [phone] Care Team Providers Care Brake Repairer Name Role Phone Tameka Hooper MD Primary Care Prov ider Reason for Visit * Reason Onset Date Comments Home Health 08/21/2023 Encounter Details Date Type Department Care Team (Late st Contact Info) Description 08/21/2023 Telephone Family Medicine [address] [phone] Tameka Hooper MD [address] [place], [place] [address] [address] Home Health Allergies Active Allergy Reactions Criticality Noted Date Comments Amoxicillin Rash 02/07/2020 Bactrim Rash 12/15/2011 Ciprofloxacin Rash 12/15/2011 Diltiazem Rash 05/29/2019 Piroxicam Rash 12/15/2011 Cephalexin Rash 12/15/2011 Meloxicam Rash 05/29/2019 Other reaction(s): Other Cilostazol Rash,Unknown 12/15/2011 Sulfamethoxazole High 01/19/2023 Other Reaction(s): Rash Trimethoprim High 01/19/2023 Other Reaction(s): Rash documented as of this encounter (statuses as of 08/21/2023) Medications Medication Sig Dispensed Refills Start Date [...] as of this encounter (statuses as of 08/21/2023) Active Problems Problem Noted Date Diagnosed Date [...] as of this encounter (statuses as of 08/21/2023) Resolved Problems Problem Noted Date Diagnosed Date [...] as of this encounter (statuses as of 08/21/2023) Immunizations Name Administration Dates Next Due COVID-19 [...] money to buy more. Never true 08/21/19 Within the past 12 months, t he [...] EST Noted * Telephone Encounter - Nury Argueta LPN - 08/21/2023 2:28 PM EST Admission/Start of Care Admission/Start of Care: Madisyn DOVER, Calling from: [place] Patient was Admitted to: [facility], for: GI Bleed and respiratory failure. Home for a couple hours and had resp. Failure and went back in to [facility]. then she went to [facility] for rehab. from 08/11 to 08/20 Referral ordered by: Rosina Bedolla Referral received for: Senior Living, PT, and OT Planned start of care date:Yes, Date 08/21/23 Start of care completed on: 08/21/23 Report/Concerns of: none Symptoms: none Vitals: T 97.6 P 79 RR 18 BP 138/66 SP O2 89 @ 3lpm n.c. Lung sounds clear, but diminished. Weight 156 lbs Blood sugar n/a Narrative: Madisyn calling from [facility]. Patient was at [facility]. Discharged home for 2 hours. Hadrespiratory failure and taken back to [facility]. From there went to [facility] for rehab. Next Nursing visit(s) on 08/22/23 [...] back madisyn with advice or orders at [phone] documented in this encounter Plan of Treatment Upcoming Encounters Date Type Department Care Team (Late st Contact Info) Description 08/24/2023 2:40 PM EST Office Visit Family Medicine [address] [place] [phone] Krishna Espana MD [address] [place] [address] [place] [address] 09/01/2023 12:00 PM EST Office Visit Sleep Disorders Ctr [facility] [address] [place] [phone] Lynn Busby, [address] [place] [address] 10/23/2023 2:30 PM EDT Office Visit Rheumatology [address] [place] [phone] Jessica Stubbs, DEMOLITION SPECIALIST [address] [facility] [place] [address] 10/31/2023 1:00 PM EDT Cardiac Studies Cardiac Studies, [facility] [address] [place] [address] 11/01/2023 9:30 AM EDT Procedure Only Endoscopy, [facility] [address] [place] [address] Gasper Kim DO [address] [place] [address] 11/01/2023 10:00 AM EDT Procedure Only Endoscopy, [facility] [address] [place] [address] Gasper Kim, DO [address] [place] [address] 11/14/2023 12:20 PM EDT Office Visit Gastroenterology, [facility] [address] [place] [address] Gasper Kim, DO [address] [place] [address] 03/26/2024 1:30 PM EDT Office Visit Nephrology [address] [place] [address] Zemaitis, Ayana Kirkpatrick PA-C [address] [place] [address] 05/01/2024 3:00 PM EDT Office Visit Dermatology [address] [place] [address] TerenceAnya denise PA-C [address] [place] [address] [place] [address] Health Maintenance Due Date Last Done Comments DISCUSS TOBACCO CESSATION (REFER TO SMARTSET #3291) 1940 COVID-19 Vaccine ( season) 2023 06/01/2021, 10/20/2020, 09/15/2020 Influenza Vaccine (FLU shot) (#1) 2023 Depression Screening 08/11/2023 08/11/2022 Albumin/Creatinine Ratio 08/15/2023 08/15/2022, 01/31 CKD PHOS USE SMARTSET 13774 12/28/202312/02, 04/26/2022, 11/23/2021, Additional history exists GFR 02/12/2024 08/14/2023, 01/31, 12/27/2022, Additional history exists O2 ASSESSMENT COMPLETED IN PAST YEAR FOR COPD 02/29/2024 02/28/2023 DXA Scan 08/01/2024 08/01/2022, 07/05, 07/07/2020, Additional history exists CKD HGB USE SMARTSET 57740 08/16/202408/16, 08/14/2023, 08/14/2023, Additional history exists COLONOSCOPY-EVERY 5 YRS AGES 18-100 07/31/2028 07/31/2023, 02/23/2022, 02/23/2022, Additional history exists DTaP,Tdap,and Td Vaccines (2 - Td or Tdap) 08/07/2030 08/07/2020 (Not indicated), 09/01/1998 Pneumococcal Vaccine: 65+ Years Completed 05/16/2016, 12/01/2014, 12/01/2013, Additional history exists VITAMIN D LEVEL ONCE IN A LIFETIME-USE SMARTSET# 65543 Completed 12/27/2022, 08/12/2022, 03/15/2022, Additional history exists [...] Not on filedocumented as of this encounter Advance Directives Healthcare Agents on File Name Relationship Healthcare Agent Relationshi p Communication Juan Daniel Beaulieu Adult Child Health Care Repr esentative (appointed verbally by patient or by statute hierarchy) Care Teams Brake Repairer Relationship Specialty Start Date End Date Tameka Hooper MD [address] [place] [address] [place] [phone] PCP - General Family Medicine 05/29/19 documented as of this encounter
--- OUTSIDE RECORDS SUMMARY | 2023-08-29 03:51 | External Medical Summary ---
Author Name Unknown Address Unknown Organization K01:[facility] - [address] [place] [address] Laboratory Report Ordering Provider Test Date Status LAVINIA ESCOBAR 08/16/2023 05:40:00 Final Observation Date Value Abnormality Reference (Units ) Status Ferritin 08/16/2023 05:40:00 72 13-150 (ng /mL) Final Postmenopausal women have hi gher ferritin levels than pre-menopausal women. The above reference interval is based on pre-menopausal women. Performing Location [facility] - [address] [place] [address]
--- OUTSIDE RECORDS SUMMARY | 2023-08-29 03:51 | External Medical Summary | Summary of Care ---
Author Name Unknown Organization [facility] Address [address] [place] [address] Phone [phone] Care Team Providers Care Industrial Truck Mechanic Name Role Phone Tameka Hooper MD Primary Care Prov ider Reason for Visit * Reason Onset Date Comments Fpc Visit - Admission 08/16/2023 Encounter Details Date Type Department Care Team (Latest Contact Info) Description 08/16/2023 8:00 AM EST Fpc Visit [address] [place] [address] Ephraim Burgess MD [address] [place] [address] [place] [address] Chronic hypoxemic respiratory failure (HCC)*; Gastrointestinal hemorrhage associated with gastric ulcer; Pleural effusion, bilateral; Acute blood loss anemia; COPD, group B, by GOLD 2017 classification (HCC); IBD (inflammatory bowel disease); Paroxysmal atrial fibrillation (HCC); Hiatal hernia; Colostomy status (HCC); Hypertensive kidney disease with stage 3b chronic kidney disease (HCC); 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HCC); Nephrolithiasis Allergies Active Allergy Reactions Criticality Noted Date Comments Amoxicillin Rash 02/07/2020 Bactrim Rash 12/15/2011 Ciprofloxacin Rash 12/15/2011 Diltiazem Rash 05/29/2019 Piroxicam Rash 12/15/2011 Cephalexin Rash 12/15/2011 Meloxicam Rash 05/29/2019 Other reaction(s): Other Cilostazol Rash,Unknown 12/15/2011 Sulfamethoxazole High 01/19/2023 Other Reaction(s): Rash Trimethoprim High 01/19/2023 Other Reaction(s): Rash documented as of this encounter (statuses as of 08/16/2023) Medications Medication Sig Dispensed Refills Start Date End Date Status Glen White-3 Fatty Acids (FISH OIL) 500 MG Capsule [...] as directed. 1 Each 1 02/14/2022 Active Mesalamine 1.2 GM Oral Tablet Delayed Release (Lialda) TAKE BY MOUTH 3 TABLETS IN THE MORNING. 270 Tablet 3 01/02/2023 Active Solifenacin Succinate 5 MG Oral Tablet (VESIcare)Indicati ons:Urge incontinence,Urina ry frequency,Urinary urgency,Mixed incontinence Take 1 Tablet by mouth in the morning. 90 Tablet 3 03/20/2023 Active Xarelto 15 MG Oral Tablet (Rivaroxaban)Indic ations:Chronic atrial fibrillation (HCC) TAKE 1 TABLET BY MOUTH EVERY DAY 90 Tablet 3 03/31/2023 Active Budesonide 0.25 MG/2ML Inhalation Suspension INHALE CONTENTS OF ONE VIAL (2ML) TWICE DAILY 0 02/03/2023 Active Ferrous Sulfate 325 (65 Fe) MG Oral Tablet (Feosol) TAKE 1 TABLET BY MOUTH EVERY DAY WITH BREAKFAST 90 Tablet 1 05/11/2023 Active Albuterol Sulfate HFA 108 (90 Base) MCG/ACT Inhalation Aerosol SolutionIndication s:COPD, moderate (HCC) INHALE 2 PUFFS BY MOUTH NEEDED FOR COUGH, SHORTNESS OF BREATH OR WHEEZING. 18 g 5 05/15/2023 Active Escitalopram Oxalate 10 MG Oral Tablet [...] takes 1/2 tab daily 0 08/11/2023 Active Ipratropium-Albute rol 0.5-2.5 (3) MG/3ML Inhalation Solution (Duoneb) Inhale 3 mL via nebulizer every 4 hours as needed for Wheezing. 0 08/11/2023 Active Lisinopril 10 MG Oral Tablet (Prinivil) Take 1 Tablet by mouth in the morning. 0 08/11/2023 Active Verapamil HCl ER 120 MG Oral Tablet Extended Release (Isoptin SR) Take 1 Tablet by mouth in the morning. 0 08/11/2023 Active Pantoprazole Sodium 40 MG Oral Tablet Delayed Release (Protonix) Take 1 Tablet by mouth in the morning. 0 08/11/2023 Active Sucralfate 1 GM Oral Tablet (Carafate) Take 1 Tablet by mouth 4 times a day before meals and at bedtime. half an hour before meals and at bedtime 0 08/11/2023 4 Discontinued documented as of this encounter (statuses as of 08/16/2023) Active Problems Problem Noted Date Diagnosed Date [...] as of this encounter (statuses as of 08/16/2023) Resolved Problems Problem Noted Date Diagnosed Date [...] as of this encounter (statuses as of 08/16/2023) Immunizations Name Administration Dates Next Due COVID-19 [...] as of this encounter Progress Notes * Ephraim Burgess MD - 08/16/2023 11:08 AM EST ADMISSION HISTORY and PHYSICAL TRANSITION EVENT: Type: SNF admission Date: August 11 Code Status: Full Code Name: Eliazar Beaulieu Date of : 1940 This note pertains to care provided at [facility]. Please see facility medical record for original note. This note is not to be edited or addended in [employer]. Editing or addending needs to occur in the facilities medical record. S: Eliazar Beaulieu had been admitted to [facility] from [facility] for PT and OT. Recently admitted [facility] 07/25/23-08/05/23 because of GI bleed due to gastric ulcers and then 08/05/23-08/11/23 because of acute on chronic respiratory failure and was transferred here and admitted on 08/11/2023. Patient of Dr. Mao with PMH of COPD with ongoing tobacco abuse, chronic respiratory failure on oxygen, hypertension with stage 3b CKF, PAF on Xarelto, FRANCIS, h/o bowel resection and colostomy due to diverticulitis, ?IBD on mesalamine, osteoporosis, PVD, hiatal hernia and depression who was initially admittedto [facility] on 07/25/23 with weakness and lightheaded for 2 months that had progressively gotten worse. She presented to the ED on 07/25/23 as she had felt lightheaded and as though she would fall anytime she attempted ambulation. She had also noted darker output in her colostomy bag for the past 2 months. She has been following with GI for suspected IBD after colonoscopy in 2021 showed ulcers consistent with UC versus ischemic colitis. She was started on mesalamine. In the ED, head CT was negative. Hemoglobin was 6.9 on admission and she was transfused 1 unit of PRBCs with improvement to 7.7. She also received IV Venofer. She was seen by GI and EGD done 07/26/23 showed gastric ulcers without active bleeding and a Schatzki ring that was dilated as well as a small hiatal hernia. She then underwent colonoscopy on 07/31/23 that showed extensive pseudopolyposis of transverse and ascending colon andpatent anastomosis. She also had a tubular adenoma removed. She was placed on pantoprazole 40 mg daily x 3 months and Carafate for 10 days. Her hemoglobin improved to 8.8. her Xarelto was resumed. She developed episodes of bradycardia and 2nd and 3rd degree heart block. She was seen by cardiology and this improved with discontinuation of flecainide and lowering of the verapamil to 120 mg daily. Recommended to avoid any further titration of AV lynnette agents due to this. Her lisinopril was increased from 2.5 to 10 mg daily. Patient was discharged home on 08/05/23, however, she became very short of breath and returned to theED after only a few hours at home. Her oxygen saturation was in the 70s% on room air and improved to high 80s on 3 L. Patient also noted feeling anxious about living alone and was interested in placement or rehab stay. Patient does have FRANCIS but has not been using CPAP and was not interested in restarting. She follows with Dr. Banks for pulmonary follow-up. CXR showed cardiomegaly with pulmonary vascular congestion and small pleural effusions and emphysema. CT of the chest showed cardiomegaly with pulmonary edema, trace pericardial, small left and small to moderate right pleural effusions, left lower lobe mucous plugging with associated volume loss and consolidation, which may represent atelectasis or pneumonia, emphysema, debris within the esophagus consistent with reflux, and left nephrolithiasis with partially imaged hydroureteronephrosis and follow-up KUB could be done. KUB showed multiple calcifications overlying the renal shadows likely representing a combination of renal stones and vascular calcifications and a dominant 13 mm left renal stone. It was noted that the left sided hydronephrosis was stable from a CT scan from 08/22/2020. She was admitted and started on Lasix IV for diuresis. She was seen by pulmonary, who recommended diuresis and to continue Anoro and Budesonide nebulizers. She was discharged on Lasix 20 mg daily to continue as maintenance. She is also on 1500 mL fluid restriction. Hemoglobin noted to be 854 on discharge. She was also treated for UTI with Aztreonam due to multiple allergies. Patient is now admitted for PT/OT. She wears oxygen at 5L continuously. She is interested in personal care on discharge. She states her breathing is doing much better than it was when she was in the hospital. Appetite is good. Colostomy is functioning well. Her weight yesterday was down to 170 pounds from 177 in the hospital so Lasix was discontinued. Past Medical History: Patient Active Problem List Diagnosis Code 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[facility]) G47.33, J44.9 Macular degeneration H35.30 S/P bilateral cataract extraction Z98.41, Z98.42 Colostomy status ([facility]) Z93.3 Paroxysmal atrial fibrillation ([facility]) I48.0 H/O resection of large bowel Z90.49 Diverticulosis of large intestine without hemorrhage K57.30 Mixed hyperlipidemia E78.2 Tobacco use disorder F17.200 Chronic bilateral low back pain without sciatica M54.50, G89.29 DDD (degenerative disc disease), lumbar M51.36 Stage 3b chronic kidney disease N18.32 Senile osteoporosis M81.0 Major depressive disorder with single episode, in full remission ([facility]) F32.5 Hypoparathyroidism ([facility]) E20.9 Chronic hypoxemic respiratory failure ([facility]) J96.11 History of healed osteoporosis fracture Z87.310 Essential (primary) hypertension I10 COPD, group B, by GOLD 2017 classification ([facility]) J44.9 Hypertensive kidney disease with stage 3b chronic kidney disease ([facility]) I12.9, N18.32 Other specified peripheral vascular diseases ([facility]) I73.89 Hx of actinic keratosis Z87.2 IBD (inflammatory bowel disease) K52.9 Gastrointestinal hemorrhage associated with gastric ulcer K25.4 Schatzki's ring of distal esophagus K22.2 Hiatal hernia K44.9 Full code status Z78.9 Age-related osteoporosis without current pathological fracture M81.0 Age-related osteoporosis without current pathological fracture M81.0 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 (HCC) K51.40 Nephrolithiasis N20.0 Current Outpatient Medications Medication Sig Dispense Refill Glen White-3 Fatty Acids (FISH OIL) 500 MG Capsule [...] mL 0 CPAP every night at bedtime. (Patient not taking: Reported on 06/19/2023) Compressor Nebulizer Inhale via nebulizer . Use as directed. 1 Each 1 Mesalamine 1.2 GM Oral Tablet Delayed Release (Lialda) TAKE BY MOUTH 3 TABLETS IN THE MORNING. 270 Tablet 3 Solifenacin Succinate 5 MG Oral Tablet (VESIcare) Take 1 Tablet by mouth in the morning. 90 Tablet 3 Xarelto 15 MG Oral Tablet (Rivaroxaban) TAKE 1 TABLET BY MOUTH EVERY DAY 90 Tablet 3 Budesonide 0.25 MG/2ML Inhalation Suspension INHALE CONTENTS OF ONE VIAL (2ML) TWICE DAILY Ferrous Sulfate 325 (65 Fe) MG Oral Tablet (Feosol) TAKE 1 TABLET BY MOUTH EVERY DAY WITH [id number] Tablet 1 Albuterol Sulfate HFA 108 (90 Base) MCG/ACT Inhalation Aerosol Solution INHALE 2 PUFFS BY MOUTH NEEDED FOR COUGH, SHORTNESS OF BREATH OR WHEEZING. 18 g 5 Escitalopram Oxalate 10 MG Oral Tablet (Lexapro) TAKE 1 TABLET BY MOUTH EVERY DAY 90 Tablet 1 Triamcinolone Acetonide 0.5 % External Cream (Aristocort) APPLY TO AFFECTED AREA TWICE A DAY 60 g 5 Acetaminophen 325 MG Oral Tablet (Tylenol) Take 1 Tablet by mouth every 6 hours as needed for Pain,Mild, Fever >38C(100.5F), Pain, Moderate or Pain, Severe. Pt takes 1/2 tab daily Ipratropium-Albuterol 0.5-2.5 (3) MG/3ML Inhalation Solution (Duoneb) Inhale 3 mL via nebulizer every 4 hours as needed for Wheezing. Lisinopril 10 MG Oral Tablet (Prinivil) Take 1 Tablet by mouth in the morning. Verapamil HCl ER 120 MG Oral Tablet Extended Release (Isoptin SR) Take 1 Tablet by mouth in the morning. Pantoprazole Sodium 40 MG Oral Tablet Delayed Release (Protonix) Take 1 Tablet by mouth in the morning. No current facility-administered medications for this visit. Review of patient's allergies indicates: Allergen Reactions Sulfamethoxazole Other Reaction(s): Rash Trimethoprim Other Reaction(s): Rash Amoxicillin Rash Bactrim Rash Ciprofloxacin Rash Diltiazem Rash Feldene [Piroxicam] Rash Keflex [Cephalexin] Rash Meloxicam Rash Other reaction(s): Other Pletal [Cilostazol] Rash and Unknown Social History Tobacco Use Smoking status: Every Day Packs/day: 0.25 Years: 60.00 Additional pack years: 0.00 Total pack years: 15.00 Types: Cigarettes Smokeless tobacco: Never Tobacco comments: 5/day currently , pt is willing to try and quit. Substance Use Topics Alcohol use: No Vaping/E-Cigarette Use Vaping/E-Cigarette Use Never User Vaping/E-Cigarette Substances Vaping/E-Cigarette Devices Past Surgical History: Procedure Laterality Date COLONOSCOPY, DIAGNOSTIC (RECTUM) 08/01/2019 adenomatous polyp, repeat 5 yrs/COLONOSCOPY FLEXIBLE PROXIMAL DIAGNOSTIC performed by Gasper Kim DO at ENDOSCOPY [facility] COLONOSCOPY, DIAGNOSTIC (RECTUM) N/A 02/23/2022 [facility], Colonoscopy , Nodular mucosa in ascending & transverse / biopsies biopsies from the colonwere most consistent with inflammatory bowel disease / LENS EXTRACTION, PHACOFRAGMENTATION Bilateral 10/2016 Dr. Cortez LIGATE/CUT OVIDUCT(S) 1974 PARTIAL REMOVAL OF COLON 12/06/2018 Diverticulitis REMOVE TONSILS & ADENOIDS, UNDER 14 age [age] UPPER GI ENDOSCOPY 07/26/2023 gastic ulcer/nonobstructing Schatzki ring/small HH/repeat 3 months/EGD/[facility] Family History Problem Relation Age of Onset Stroke Mother of a massive stroke Cancer Father decesased of pancreatic cancer Family Status Relation Status Mo Fa Son Alive Son Alive Results for orders placed or performed in visit on 08/14/23 BASIC METABOLIC PANEL Result Value Ref Range BUN 22 (H) 6 - 20 mg/dL Creatinine 1.4 (H) 0.5 - 1.0 mg/dL Estimated Glomerular Filtration Rate 37 (L) >=60 mL/min Sodium 141 135 - 146 mmol/L Potassium 3.9 3.5 - 5.1 mmol/L Chloride 105 98 - 107 mmol/L CO2 26 22 - 32 mmol/L Anion Gap 10 7 - 15 mmol/L Glucose 101 70 - 120 mg/dL Calcium 8.8 8.4 - 10.2 mg/dL CBC Result Value Ref Range WBC 8.42 4.00 - 10.80 K/uL RBC 2.77 3.85 - 5.15 M/uL HGB 7.8 (L) 12.0 - 15.3 g/dL HCT 26.4 (L) 36.0 - 45.2 % MCV 95.3 81.5 - 97.5 fL MCH 28.2 27.0 - 34.0 pg MCHC 29.5 32.0 - 36.0 g/dL RDW 17.4 11.5 - 15.5 % PLT 375 140 - 400 K/uL MPV 9.7 6.6 - 11.1 fL DIFFERENTIAL, AUTOMATED Result Value Ref Range WBC 8.42 4.00 - 10.80 K/uL Neutrophils % 58.5 40.0 - 75.0 % Lymphocytes % 21.3 18.0 - 42.0 % Monocytes % 13.1 (H) 1.0 - 11.0 % Eosinophils % 6.7 (H) 0.0 - 6.0 % Basophils % 0.4 0.0 - 2.0 % Absolute Neutrophils 4.94 1.80 - 7.70 K/uL Absolute Lymphocytes 1.79 1.00 - 4.80 K/ul Absolute Monocytes 1.10 0.00 - 1.10 K/uL Absolute Eosinophils 0.56 0.00 - 0.70 K/uL Absolute Basophils 0.03 0.00 - 0.20 K/uL DIFFERENTIAL, TECHNOLOGIST REVIEW Result Value Ref Range nRBCs Review of Systems: Constitutional ROS: No change in weight, No fevers, sweats, or chills, and +generalized weakness Eye ROS: No recent significant change in vision and No eye pain, redness, discharge Ear ROS: No ear pain, No drainage, No tinnitus or vertigo, and No recent change in hearing Nose ROS: No history of frequent colds or sinusitis, No nasal stuffiness, No history of Hay Fever, and No significant epistaxis Mouth/Throat ROS: No bleeding gums, No thrush, or No sore throat Pulmonary ROS: No cough, sputum, or hemoptysis, No wheezing, and +COPD, chronic respiratory failure, oxygen dependence Cardiovascular ROS: No chest pain, No orthopnea, No paroxysmal nocturnal dyspnea, No palpitations, No syncope, and +PAF, pleural effusions, CHF Gastrointestinal ROS: No abdominal pain, No significant heartburn, No significant change in appetite, No hematemesis, No abdominal bloating or early satiety, No dysphagia, and +colostomy and recent GI bleed due to gastric ulcers Genito-Urinary Female ROS: No dysuria and No frequency Musculoskeletal/Extremities ROS: +OA Hematologic/Lymphatic ROS: +anticoagulated n Xarelto and anemia of CKD and acute blood loss anemia Skin/Integumentary ROS: No rash Neurologic ROS: No headaches and No seizures Endocrine ROS: No heat intolerance, No cold intolerance, No thyroid trouble, No excessive thirst orurination, and No history of diabetes Psychiatric ROS: +depression on escitalopram ADL skills: dependent Ambulates with walker OBJECTIVE: PHYSICAL EXAM: I reviewed the most recent facilities vitals. Refer to vital signs flowsheet in custodial chart.General: alert, no distress, well nourished, well developed, and chronically ill appearing Head: Normocephalic, No masses, lesions, tenderness or abnormalities Eye Exam: PERRLA, extraocular movements intact, conjunctiva are pink and non- injected, sclera clear Ears: External ears normal Nose: no mucosal erythema, no mucosal edema, no purulent discharge Oropharynx: no exudate, no erythema, lips, buccal mucosa, and tongue normal, and mucous membranes are moist Neck: supple, no adenopathy, no bruits Heart: no gallops, irregularly irregular, and soft systolic murmur Lungs: chest symmetric with normal AP diameter, no chest deformities noted, no chest wall tenderness, decreased breath sounds Abdomen: abdomen soft, non-tender, normal bowel sounds, and no masses or organomegaly Extremities: no clubbing, no cyanosis, trace lower extremity edema bilaterally Neuro Exam: alert & oriented x 3 with fluent speech, no focal motor/sensory deficits ASSESSMENT: Chronic hypoxemic respiratory failure (HCC) (Primary)--continue oxygen. Due to COPD and CHF with pleural effusions. Continue Anoro and Budesonide nebulizers. Restart furosemide 20 mg daily. Gastrointestinal hemorrhage associated with gastric ulcer--continue pantoprazole 40 mg daily as perGI. Scheduled for follow-up EGD 11/01/23. Avoid NSAIDs and aspirin. Carafate course complete and willdiscontinue. Pleural effusion, bilateral--from CHF. Restart furosemide 20 mg daily. Acute blood loss anemia--H&H stable and slowly improving. Continue ferrous sulfate and recheck 08/21/23. COPD, group B, by GOLD 2017 classification ([facility])--continue Anoro, Budesonide, and duoneb PRN. IBD (inflammatory bowel disease)--continue mesalamine. Paroxysmal atrial fibrillation (HCC)--rate controlled with verapamil 120 mg daily. Avoid titrating AV lynnette blocking agents due to recent history of bradycardia and 2nd/3rd degree heart block. Flecainide was discontinued. Continue Xarelto. Hiatal hernia--continue Pantoprazole as above. Colostomy status (HCC)--stable Hypertensive kidney disease with stage 3b chronic kidney disease (HCC)--continue lisinopril 10 mg daily and verapamil 120 mg daily. 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HCC)--continue oxygen. Declines CPAP. Nephrolithiasis--chronic with chronic left sided hydronephrosis and no symptoms. Monitor for now. PLAN: 1. Continue present medication(s): Discontinue medications: Carafate as 10 day course is complete. Begin medication(s): Restart Lasix 20 mg daily due to pleural effusions and trace edema. Schedule labs: CBC and BMP on 08/21/23. Monitor closely and may need potassium supplement due to newstart on Lasix. Will increase fluid restriction to 1800 mL. 2. Admission orders, medications, labs, hospital records and care plan reviewed. 3. Um Specialist consult, Physical Therapy, Occupational Therapy, and Speech Therapy ordered. 4. Care plan reviewed. 5. Advance Directives were discussed: Full Code 6. Custodial Home Treatment Given: Diuretic PO furosemide Electronically signed by: Ephraim Burgess MD I spent a total of 53 minutes coordinating, documenting, and providing care for this patient excluding time spent in the performance of separately billed services or time spent by another provider/QHP. documented in this encounter Plan of Treatment Upcoming Encounters Date Type Department Care Team (Late st Contact Info) Description 09/01/2023 12:00 PM EST Office Visit Sleep Disorders Ctr [facility] [address] [place] [phone] Lynn Busby DO [address] [place] [address] 10/23/2023 2:30 PM EDT Office Visit Rheumatology [address] [place] [phone] Jessica Stubbs CRNP [facility] [place] [address] 10/31/2023 1:00 PM EDT Cardiac Studies Cardiac Studies, [facility] [address] [place] [address] 11/01/2023 9:30 AM EDT Procedure Only Endoscopy, [facility] [address] [place] [address] Gasper Kim, DO [address] [place] [address] 11/01/2023 10:00 AM EDT Procedure Only Endoscopy, [facility] [address] [place] [address] Gasper Kim, DO [address] [place] [address] 11/14/2023 12:20 PM EDT Office Visit Gastroenterology, [facility] [address] [place] [address] Gasper Kim DO [address] [place] [address] 03/26/2024 1:30 PM EDT Office Visit Nephrology [address] [place] [address] ZemaAyana hurtado PA-C [address] [place] [address] 05/01/2024 3:00 PM EDT Office Visit Dermatology [address] [place] [address] Anya Pratt PA-C [address] [place] [address] [place] [address] Health Maintenance Due Date Last Done Comments DISCUSS TOBACCO CESSATION (REFER TO SMARTSET #[id number]) 1940 COVID-19 Vaccine ( season) 2023 06/01/2021, 10/20/2020, 09/15/2020 Influenza Vaccine (FLU shot) (#1) 2023 Depression Screening 08/11/2023 08/11/2022 Albumin/Creatinine Ratio 08/15/2023 08/15/2022, 01/31 CKD PHOS USE SMARTSET 10380 12/28/202312/02, 04/26/2022, 11/23/2021, Additional history exists GFR 02/12/2024 08/14/2023, 01/31, 12/27/2022, Additional history exists O2 ASSESSMENT COMPLETED IN PAST YEAR FOR COPD 02/29/2024 02/28/2023 DXA Scan 08/01/2024 08/01/2022, 07/05, 07/07/2020, Additional history exists CKD HGB USE SMARTSET 74133 08/16/202408/16, 08/14/2023, 08/14/2023, Additional history exists COLONOSCOPY-EVERY 5 YRS AGES 18-100 07/31/2028 07/31/2023, 02/23/2022, 02/23/2022, Additional history exists DTaP,Tdap,and Td Vaccines (2 - Td or Tdap) 08/07/2030 08/07/2020 (Not indicated), 09/01/1998 Pneumococcal Vaccine: 65+ Years Completed 05/16/2016, 12/01/2014, 12/01/2013, Additional history exists VITAMIN D LEVEL ONCE IN A LIFETIME-USE SMARTSET# [id number] Completed 12/27/2022, 08/12/2022, 03/15/2022, Additional history exists [...] respiratory failure (HCC)- Primary Chronic respiratory failure Gastrointestinal hemorrhage associated with gastric ulcer Pleural effusion, bilateral Unspecified pleural effusion Acute blood loss anemia Acute posthemorrhagic anemia COPD, group B, by GOLD 2017 classification (HCC) IBD (inflammatory bowel disease) Other and unspecified noninfectious gastroenteritis and colitis Paroxysmal atrial fibrillation (HCC) Atrial fibrillation Hiatal hernia Diaphragmatic hernia without mention of obstruction or gangrene Colostomy status (HCC) Colostomy status Hypertensive kidney disease with stage 3b chronic kidney disease (HCC) 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HCC) Nephrolithiasis Calculus of kidney documented in this encounter Care Teams Industrial Truck Mechanic Relationship Specialty Start Date End Date Tameka Hooper MD [address] [place] [address] [place] [address] PCP - General Family Medicine 05/29/19 documented as of this encounter
--- OUTSIDE RECORDS SUMMARY | 2023-08-29 03:51 | External Medical Summary ---
Author Name Unknown Address Unknown Organization K0G:[facility] [address] [place] [address] Laboratory Report Ordering Provider Test Date Status LAVINIA ESCOBAR 08/16/2023 05:40:00 Final Observation Date Value Abnormality Reference (Units ) Status HCT 08/16/2023 05:40:00 27.3 Below low normal 36. 0-45.2 (%) Final Performing Location [facility] [place] [address]
--- OUTSIDE RECORDS SUMMARY | 2023-08-29 03:51 | External Medical Summary | Summary of Care ---
Author Name Unknown Organization [facility] Address [address] [place] [address] Phone [phone] Care Team Providers Care Ham Smoker Name Role Phone Tameka Hooper MD Primary Care Prov ider Reason for Visit * Reason Onset Date Comments Medication Refill 08/17/2023 Encounter Details Date Type Department Care Team (Late st Contact Info) Description 08/17/2023 Refill [facility] [address] [place] [address] Bouchra Slater PA-C [address] [place] [address] COPD, moderate (HCC) Allergies Active Allergy Reactions Criticality Noted [...] takes 1/2 tab daily 0 4 Active [place]-3 Fatty Acids (FISH OIL) 500 MG Capsule [...] Tab by mouth daily. 0 08/17/19 24 Discontinued(Az dication List Clean Up) Mesalamine 1.2 GM [...] weight gain. 0 4 08/17/19 24 Discontinued documented as of this encounter [...] 10:20 AM EST Office Visit Family Medicine [address] [place] [phone] Krishna Espana MD [address] [place] [address] [place] [address] 09/01/2023 12:00 PM EST Office Visit Sleep Disorders Ctr [facility] [address] [facility] [place] [phone] Lynn Busby DO [address] [place] [address] 10/23/2023 2:30 PM EDT Office Visit Rheumatology [address] [place] [phone] Jessica Stubbs CRNP [address] [facility] [place] [address] 10/31/2023 1:00 PM EDT Cardiac Studies Cardiac Studies, [facility] [address] [place] [address] 11/01/2023 9:30 AM EDT Procedure Only Endoscopy, [facility] [address] [place] [address] Gasper Kim, DO [address] [place] [address] 11/01/2023 10:00 AM EDT Procedure Only Endoscopy, [facility] [address] [place] [address] Gasper Kim, DO [address] [place] [address] 11/14/2023 12:20 PM EDT Office Visit Gastroenterology, [facility] [address] [place] [address] Gasper Kim, DO [address] [place] [address] 03/26/2024 1:30 PM EDT Office Visit Nephrology [address] [place] [address] Zemaitis, Ayana Kirkpatrick PA-C [address] [facility] [address] 05/01/2024 3:00 PM EDT Office Visit Dermatology [address] [place] [address] Anya Pratt PA-C [address] [place] [address] [place] [address] Health Maintenance Due Date Last Done Comments DISCUSS TOBACCO CESSATION (REFER TO SMARTSET #3291) 1940 COVID-19 Vaccine ( season) 2023 06/01/2021, 10/20/2020, 09/15/2020 Influenza Vaccine (FLU shot) (#1) 2023 Depression Screening 08/11/2023 08/11/2022 Albumin/Creatinine Ratio 08/15/2023 08/15/2022, 01/31 CKD PHOS USE SMARTSET 02440 12/28/202312/02, 04/26/2022, 11/23/2021, Additional history exists GFR 02/12/2024 08/14/2023, 01/31, 12/27/2022, Additional history exists O2 ASSESSMENT COMPLETED IN PAST YEAR FOR COPD 02/29/2024 02/28/2023 DXA Scan 08/01/2024 08/01/2022, 07/05, 07/07/2020, Additional history exists CKD HGB USE SMARTSET 32595 08/16/202408/16, 08/14/2023, 08/14/2023, Additional history exists COLONOSCOPY-EVERY 5 YRS AGES 18-100 07/31/2028 07/31/2023, 02/23/2022, 02/23/2022, Additional history exists DTaP,Tdap,and Td Vaccines (2 - Td or Tdap) 08/07/2030 08/07/2020 (Not indicated), 09/01/1998 Pneumococcal Vaccine: 65+ Years Completed 05/16/2016, 12/01/2014, 12/01/2013, Additional history exists VITAMIN D LEVEL ONCE IN A LIFETIME-USE SMARTSET# 68988 Completed 12/27/2022, 08/12/2022, 03/15/2022, Additional history exists [...] (HCC) Chronic airway obstruction, not elsewhere classified documented in this encounter Care Teams Ham Smoker Relationship Specialty Start Date End Date Tameka Hooper MD [address] [place] [address] [place] [address] PCP - General Family Medicine 05/29/19 documented as of this encounter
--- OUTSIDE RECORDS SUMMARY | 2023-08-29 03:51 | External Medical Summary ---
Author Name Unknown Address Unknown Organization [id number]:[facility]ORY [facility] [place] - [address] [place] [id number] Laboratory Report Ordering Provider Test Date Status LAVINIA ESCOBAR 08/16/2023 05:40:00 Final Observation Date Value Abnormality Reference (Units ) Status Iron 08/16/2023 05:40:00 21 Below low normal 33-151 (ug/dL) Final Iron-binding capacity 08/16/2023 05:40:00 252 250-425 (ug/dL) Final Transferrin Sat % 08/16/2023 05:40:00 8 Below low normal 15-55 (%) Final Performing Location LAB[facility]ATORY [facility] [place] - [address] [place] [id number]
--- OUTSIDE RECORDS SUMMARY | 2023-08-29 03:51 | External Medical Summary | Summary of Care ---
Author Name Unknown Organization [facility] Address [address] [place] [address] Phone [phone] Care Team Providers Care Vessel Traffic Officer Name Role Phone Tameka Hooper MD Primary Care Prov ider Encounter Details Date Type Department Care Team (Late st Contact Info) Description 08/16/2023 Orders Only Lab Mobile Phlebotomy [facility] [address] [place] [address] Ephraim Burgess MD [address] [place] [address] [place] [address] Anemia* Allergies Active Allergy Reactions Criticality Noted Date [...] Dispensed Refills Start Date End Date Status [place]-3 Fatty Acids (FISH OIL) 500 MG Capsule [...] MCG/INH AEPB 1 puff daily 0 01/26/2020 Ac tive Vitamin C 500 MG Oral Tablet Chewable [...] + D 600-200 MG-UNIT Oral Tablet (Calcium Carb-Cholecalciferol ) Take 1 Tab by mouth daily. 0 Active Prolia 60 MG/ML Subcutaneous Solution Prefilled Syringe Inject 60 mg under the skin every 6 months. 1 mL 0 03/15/2021 Active CPAP every night at bedtime. 0 Active Compressor NebulizerIndications :COPD, moderate (HCC) Inhale via nebulizer . Use as directed. 1 Each 1 02/14/2022 Active Mesalamine 1.2 GM Oral Tablet Delayed Release (Lialda) TAKE BY MOUTH 3 TABLETS IN THE MORNING. 270 Tablet 3 01/02/2023 Active Solifenacin Succinate 5 MG Oral Tablet (VESIcare)Indication s:Urge incontinence,Urinary frequency,Urinary urgency,Mixed incontinence Take 1 Tablet by mouth in the morning. 90 Tablet 3 03/20/2023 Active Xarelto 15 MG Oral Tablet (Rivaroxaban)Indicat ions:Chronic atrial fibrillation (HCC) TAKE 1 TABLET BY MOUTH EVERY DAY 90 Tablet 3 03/31/2023 Active Budesonide 0.25 MG/2ML Inhalation Suspension INHALE CONTENTS OF ONE VIAL (2ML) TWICE DAILY 0 02/03/2023 Active Ferrous Sulfate 325 (65 Fe) MG Oral Tablet (Feosol) TAKE 1 TABLET BY MOUTH EVERY DAY WITH BREAKFAST 90 Tablet 1 05/11/2023 Active Albuterol Sulfate HFA 108 (90 Base) MCG/ACT Inhalation Aerosol SolutionIndications: COPD, moderate (HCC) INHALE 2 PUFFS BY MOUTH NEEDED FOR COUGH, SHORTNESS OF BREATH OR WHEEZING. 18 g 5 05/15/2023 Active Escitalopram Oxalate 10 MG Oral Tablet (Lexapro)Indications :Major depressive disorder, single episode, unspecified TAKE 1 TABLET BY MOUTH EVERY DAY 90 Tablet 1 07/06/2023 Active Triamcinolone Acetonide 0.5 % External Cream (Aristocort)Indicati ons:Dermatitis APPLY TO AFFECTED AREA TWICE A DAY 60 g 5 07/07/2023 Active Acetaminophen 325 MG Oral Tablet (Tylenol) Take 1 Tablet by mouth every 6 hours as needed for Pain, Mild, Fever >38C(100.5F), Pain, Moderate or Pain, Severe. Pt takes 1/2 tab daily 0 08/11/2023 Active Ipratropium-Albutero l 0.5-2.5 (3) MG/3ML Inhalation Solution (Duoneb) Inhale [...] before meals and at bedtime 0 08/11/2023 Active Pantoprazole Sodium 40 MG Oral Tablet Delayed Release (Protonix) Take 1 Tablet by mouth in the morning. 0 08/11/2023 Active documented as of this encounter (statuses as of 08/16/2023) Active Problems Problem Noted Date Diagnosed Date Full code status 08/14/2023 IBD (inflammatory bowel [...] Essential (primary) hypertension 07/10/2019 07/15/2021 Age-related osteoporosis misty burgos current pathological fracture 07/10/2019 02/07/2020 COPD, moderate [...] Care Team (Late st Contact Info) Description 08/16/2023 8:00 AM EST Prison Visit [address] [place] [address] Ephraim Burgess MD [address] [place] [address] [place] [address] 08/16/2023 8:30 AM EST Laboratory Lab Mobile Phlebotomy [facility] [address] [facility] [place], [place] [address] [facility], [facility] [address] [place] [address] 09/01/2023 12:00 PM EST [facility] [place] [phone] Lynn Busby DO [address] [place] [address] 10/23/2023 2:30 PM EDT Office Visit [address] [place] [phone] Jessica Stubbs CRNP [address] [place] [address] [place] [address] 10/31/2023 1:00 PM EDT Cardiac Studies Cardiac Studies, [facility] [address] [place] [address] 11/01/2023 9:30 AM EDT Procedure Only Endoscopy, [facility] [address] [place] [address] Gasper Kim, DO [address] [place] [address] 11/01/2023 10:00 AM EDT Procedure Only Endoscopy, [facility] [address] [place] [address] Gasper Kim, DO [address] [place] [address] 11/14/2023 12:20 PM EDT Office Visit Gastroenterology, [facility] [address] [place] [address] Gasper Kim DO [address] [place] [address] 03/26/2024 1:30 PM EDT Office Visit Nephrology [address] [place] [address] Ayana Anna PA-C [address] [place] [address] 05/01/2024 3:00 PM EDT Office Visit Dermatology [address] [place] [address] Anya Pratt PA-C [address] [place] [address] [place] [address] Scheduled Orders Name Type Priority Associated Diagnoses Orde r Schedule IRON SCREEN, INCLUDING TIBC Lab Routine Anemia Expected: 08/16/2023, Expires: 08/16/2024 HCT Lab Routine Anemia Expected: 08/17/2023, Expires: 08/16/2024 HGB Lab Routine Anemia Expected: 08/17/2023, Expires: 08/16/2024 FERRITIN Lab Routine Anemia Expected: 08/16/2023, Expires: 08/16/2024 Health Maintenance Due Date Last Done Comments DISCUSS TOBACCO CESSATION (REFER TO SMARTSET #3291) 1940 COVID-19 Vaccine ( season) 2023 06/01/2021, 10/20/2020, 09/15/2020 Influenza Vaccine (FLU shot) (#1) 2023 Depression Screening 08/11/2023 08/11/2022 Albumin/Creatinine Ratio 08/15/2023 08/15/2022, 01/31 CKD PHOS USE SMARTSET 50290 12/28/2023 06/2 12/2022, 04/26/2022, 11/23/2021, Additional history exists GFR 02/12/2024 08/14/2023, 01/31, 12/27/2022, Additional history exists O2 ASSESSMENT COMPLETED IN PAST YEAR FOR COPD 02/29/2024 02/28/2023 DXA Scan 08/01/2024 08/01/2022, 07/05, 07/07/2020, Additional history exists CKD HGB USE SMARTSET 12387 08/14/202408/14, 08/14/2023, 02/28/2023, Additional history exists COLONOSCOPY-EVERY 5 YRS AGES 18-100 07/31/2028 07/31/2023, 02/23/2022, 02/23/2022, Additional history exists DTaP,Tdap,and Td Vaccines (2 - Td or Tdap) 08/07/2030 08/07/2020 (Not indicated), 09/01/1998 Pneumococcal Vaccine: 65+ Years Completed 05/16/2016, 12/01/2014, 12/01/2013, Additional history exists VITAMIN D LEVEL ONCE IN A LIFETIME-USE SMARTSET# 01642 Completed 12/27/2022, 08/12/2022, 03/15/2022, Additional history exists [...] as of this encounter Visit Diagnoses Diagnosis Anemia- Primary Anemia, unspecified documented in this encounter Care Teams Vessel Traffic Officer Relationship Specialty Start Date End Date Tameka Hooper MD [address] [place] [address] [place] [phone] PCP - General Family Medicine 05/29/19 documented as of this encounter
--- OUTSIDE RECORDS SUMMARY | 2023-08-29 03:51 | External Medical Summary ---
Author Name Unknown Address Unknown Organization K0G:[facility] - [address] [place] [address] Laboratory Report Ordering Provider Test Date Status LAVINIA ESCOBAR 08/16/2023 05:40:00 Final Observation Date Value Abnormality Reference (Units ) Status Hemoglobin 08/16/2023 05:40:00 8.1 Below low normal 12 .0-15.3 (g/dL) Final Performing Location [facility] 0 - [address] [place] [address]
--- OUTSIDE RECORDS SUMMARY | 2023-08-29 03:52 | External Medical Summary | Continuity Of Care Document ---
Author Name Unknown Address [address] [place] [address] Organization [facility] ( ) Care Team Providers Care Piper Helper Name Role Phone Ephraim Burgess Primary Care Provider [phone] Allergies Allergy Reaction Start Date End Date Status AMOXIL Active BACTRIM Active CEPHALEXIN Active CILOSTAZOL Active CIPRO Active DILTIAZEM Active FELODIPINE Active MELOXICAM Active SULFA (SULFONAMIDE ANTIBIOTICS) Active VITAL SIGNS Date Time Diastolic blood pressure Systolic blood pressure Body height Body weight Temperature SpO2 Blood Sugar Pulse Respirations 96148 209 21463 4 57.00 mm[Hg] - Sitting 128.00 mm[Hg] - Sitting 60 NI 170.00 NI 98.30 Oral 90.00 % 70.00/ min 18.00/min 13998 209 33239 3 57.00 mm[Hg] - Sitting 128.00 mm[Hg] - Sitting 98.30 Ear 70.00/ min 18.00/min 66675 210 24301 5 68.00 mm[Hg] - Sitting 121.00 mm[Hg] - Sitting 170.00 NI 97.00 Ear 66.00/ min 18.00/min 83406 210 90570 5 57.00 mm[Hg] - Lying Down 128.00 mm[Hg] - Lying Down 170.00 NI 98.30 Ear 70.00/ min 18.00/min 49191 210 05853 9 170.00 NI 83523 210 50995 6 170.00 NI 59513 210 25863 0 68.00 mm[Hg] - Sitting 121.00 mm[Hg] - Sitting 97.00 Oral 93.00 % 66.00/ min 18.00/min 64368 211 25167 4 05167 211 33455 6 64.00 mm[Hg] - Sitting 119.00 mm[Hg] - Sitting 98.50 Oral 95.00 % 70.00/ min 18.00/min 78903 212 33200 0 61.00 mm[Hg] - Sitting 138.00 mm[Hg] - Sitting 97.50 Ear 93.00 % 64.00/ min 20.00/min 27933 212 61489 7 60 NI Immunizations Vaccine Date Status COVID-19 09/15/2020 Completed COVID-19 10/20/2020 Completed COVID-19 06/01/2021 Completed (PCV13)Pneumococcal 12/01/2014 Completed (PCV20)Pneumococcal 12/01/2013 Completed
--- OUTSIDE RECORDS SUMMARY | 2023-08-29 03:52 | External Medical Summary | Summary of Care ---
Author Name Unknown Organization [facility] Address [address] [place] [address] Phone [phone] Care Team Providers Care Live Hanger Name Role Phone Tameka Hooper MD Primary Care Prov ider Reason for Visit * Reason Onset Date Comments Skilled Visit 08/15/2023 Encounter Details Date Type Department Care Team (Latest Contact Info) Description 08/15/2023 9:30 AM [facility] Fdc Visit [facility], [place] [address] [place], [place] [phone] Bouchra Slater PA-C [address] [place] [address] Acute on chronic respiratory failure with hypoxia (HCC)*; COPD, group B, by GOLD 2017 classification (HCC); Paroxysmal atrial fibrillation (HCC); Hypertensive kidney disease with stage 3b chronic kidney disease (HCC); Colostomy status ([facility]) Allergies Active Allergy Reactions Criticality Noted Date Comments Amoxicillin Rash 02/07/2020 Bactrim Rash 12/15/2011 Ciprofloxacin Rash 12/15/2011 Diltiazem Rash 05/29/2019 Piroxicam Rash 12/15/2011 Cephalexin Rash 12/15/2011 Meloxicam Rash 05/29/2019 Other reaction(s): Other Cilostazol Rash,Unknown 12/15/2011 Sulfamethoxazole High 01/19/2023 Other Reaction(s): Rash Trimethoprim High 01/19/2023 Other Reaction(s): Rash documented as of this encounter (statuses as of 08/15/2023) Medications Medication Sig Dispensed Refills Start Date End Date Status [place]-3 Fatty Acids (FISH OIL) 500 MG Capsule [...] 03/20/2023 Active Xarelto 15 MG Oral Tablet (Rivaroxaban)Silvana [...] takes 1/2 tab daily 0 08/11/2023 Active Ipratropium-Albut donna 0.5-2.5 (3) MG/3ML Inhalation [...] mouth in the morning. 0 08/11/2023 Active Furosemide 20 MG Oral Tablet (Lasix) Take 1 Tablet by mouth. for fluid accumulation or weight gain 0 08/11/2023 4 Discontinue d(Medicatio n List Clean Up) documented as of this encounter (statuses as of 08/15/2023) Active Problems Problem Noted Date Diagnosed Date [...] as of this encounter (statuses as of 08/15/2023) Resolved Problems Problem Noted Date Diagnosed Date [...] as of this encounter (statuses as of 08/15/2023) Immunizations Name Administration Dates Next Due COVID-19 [...] as of this encounter Progress Notes * Bouchra Slater PA-C - 08/15/2023 3:11 PM EST Name: Eliazar Beaulieu Date of :1940 TRANSITION EVENT: Type: Skilled visit Date: August 15 Code Status: Full Code This note pertains to care provided at [facility]. Please see facility medical record for original note. This note is not to be edited or addended in [employer]. Editing or addending needs to occur in the facilities medical record. Subjective: Eliazar Beaulieu is a 83 year old female. Patient being seen for skilled visit Chief Complaint Patient presents with Skilled Visit HPI: pt here for rehabilitation following [facility] admission for acute on chronic respiratory failure. Prior to that, she had an [facility] admission for GI bleeding due to gastric ulcer. 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 Pt is currently on Protonix 40mg daily and Carafate QID. Pt's breathing is stable. She continues to require nasal O2 running at between 3 and 5 L/min. Tolerating Therapy so far. No chills or fever. Vital signs stable. Eating drinking and sleeping ok. Pt is currently having stools for occult blood testing times 3 due to anemia. She did have low ironand received IV iron during her previous [facility] admission. She is on Ferrous Sulfate 325mg daily. Haspartial anemia panel on order for tomorrow Pt's weight in hospital was 177 pounds. She is now 170 pounds on admission. She is on lasix 20mg daily CBC Results: Results for orders placed or performed in visit on 08/14/23 CBC Result Value Ref Range WBC 8.42 [...] K/uL MPV 9.7 6.6 - 11.1 fL Hemoglobin Results: Lab Results Component Value Date/Time HGB - [facility] 7.8 (L) 08/14/2023 05:55 AM HGB - [facility] 11.2 (L) 02/28/2023 03:24 PM HGB - [facility] 11.5 (L) 02/14/2023 12:49 PM HGB - [facility] 14.7 02/04/2020 03:11 PM HGB - [facility] 13.4 03/26/2019 10:51 AM Basic Panel Results: Results for orders placed or performed in [...] mg/dL Calcium 8.8 8.4 - 10.2 mg/dL Creatinine Results: Lab Results Component Value Date/Time CREATININE - [facility] 1.4 (H) 08/14/2023 05:55 AM CREATININE - [facility] 1.6 (H) 02/14/2023 12:49 PM CREATININE - [facility] 1.7 (H) 12/27/2022 02:11 PM CREATININE - [facility] 1.3 (H) 07/27/2020 12:40 PM CREATININE - [facility] 1.5 (H) 07/10/2020 12:02 PM CREATININE - [facility] 1.3 (H) 04/20/2020 02:31 PM CREATININE, RANDOM URINE - [facility] 115 12/28/2022 02:55 PM CREATININE, RANDOM URINE - [facility] 79 08/15/2022 02:16 PM CREATININE, RANDOM URINE - [facility] 123 02/09/2021 01:48 PM CREATININE, RANDOM URINE - [facility] 73 04/20/2020 02:41 PM CREATININE-[facility] 1.29 (A) 12/10/2020 12:00 AM CREATININE-[facility] 1.28 (A) 12/08/2020 12:00 AM Potassium Results: Lab Results Component Value Date/Time POTASSIUM - [facility] 3.9 08/14/2023 05:55 AM POTASSIUM - [facility] 4.9 02/14/2023 12:49 PM POTASSIUM - [facility] 4.9 12/27/2022 02:11 PM POTASSIUM - [facility] 4.2 07/27/2020 12:40 PM POTASSIUM - [facility] 3.9 07/10/2020 12:02 PM POTASSIUM - [facility] 4.4 04/20/2020 02:31 PM POTASSIUM-[facility] 4.5 12/10/2020 12:00 AM POTASSIUM-[facility] 4.3 12/08/2020 12:00 AM Sodium Results: Lab Results Component Value Date/Time SODIUM - [facility] 141 08/14/2023 05:55 AM SODIUM - [facility] 140 02/14/2023 12:49 PM SODIUM - [facility] 140 12/27/2022 02:11 PM SODIUM - [facility] 144 07/27/2020 12:40 PM SODIUM - [facility] 143 07/10/2020 12:02 PM SODIUM - [facility] 144 04/20/2020 02:31 PM Patient Active Problem List Diagnosis Code 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[facility]) G47.33, J44.9 Macular degeneration H35.30 S/P bilateral cataract extraction Z98.41, Z98.42 Colostomy status ([facility]) Z93.3 Paroxysmal atrial fibrillation ([facility]) I48.0 H/O resection of large bowel Z90.49 Diverticulosis of large intestine without hemorrhage K57.30 Mixed hyperlipidemia E78.2 Tobacco use disorder F17.200 Chronic bilateral low back pain without sciatica M54.50, G89.29 DDD (degenerative disc disease), lumbar M51.36 Stage 3b chronic kidney disease N18.32 Senile osteoporosis M81.0 Major depressive disorder with single episode, in full remission ([facility]) F32.5 Hypoparathyroidism ([facility]) E20.9 Chronic hypoxemic respiratory failure ([facility]) J96.11 History of healed osteoporosis fracture Z87.310 Essential (primary) hypertension I10 COPD, group B, by GOLD 2017 classification ([facility]) J44.9 Hypertensive kidney disease with stage 3b chronic kidney disease ([facility]) I12.9, N18.32 Other specified peripheral vascular diseases ([facility]) I73.89 Hx of actinic keratosis Z87.2 IBD (inflammatory bowel disease) K52.9 Gastrointestinal hemorrhage associated with gastric ulcer K25.4 Schatzki's ring of distal esophagus K22.2 Hiatal hernia K44.9 Full code status Z78.9 Past Medical History: Diagnosis Date Chronic atrial fibrillation ([facility]) 05/29/2019 Chronic bilateral low back pain without sciatica 02/04/2020 Colostomy status ([facility]) 05/29/2019 COPD, moderate ([facility]) 12/15/2011 Diverticulitis of colon Essential (primary) hypertension 07/10/2019 Fracture of vertebra due to osteoporosis with routine healing 02/07/2020 Generalized osteoarthritis Glaucoma 12/15/2011 H/O multiple pulmonary nodules 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 is due in May 2022 Macular degeneration 05/29/2019 Mixed hyperlipidemia 05/29/2019 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[facility]) 12/15/2011 S/P bilateral cataract extraction 05/29/2019 Past Surgical History: Procedure Laterality Date COLONOSCOPY, DIAGNOSTIC (RECTUM) 08/01/2019 adenomatous polyp, repeat 5 yrs/COLONOSCOPY FLEXIBLE PROXIMAL DIAGNOSTIC performed by Gasper Kim DO at ENDOSCOPY [facility] COLONOSCOPY, DIAGNOSTIC (RECTUM) N/A 02/23/2022 [facility], Colonoscopy , Nodular mucosa in ascending & transverse / biopsies biopsies from the colonwere most consistent with inflammatory bowel disease / LENS EXTRACTION, PHACOFRAGMENTATION Bilateral 10/2016 Dr. Cortez LIGATE/CUT OVIDUCT(S) 1973 PARTIAL REMOVAL OF COLON 12/06/2018 Diverticulitis REMOVE TONSILS & ADENOIDS, UNDER 14 age [age] UPPER GI ENDOSCOPY 07/26/2023 gastic ulcer/nonobstructing Schatzki ring/small HH/repeat 3 months/EGD/[facility] Family History Problem Relation Age of Onset Stroke Mother of a massive stroke Cancer Father decesased of pancreatic cancer Family Status Relation Status Mo Fa Son Alive Son Alive Social History Socioeconomic History Marital status: Spouse [...] on file Food Insecurity: No Food Insecurity (08/11/2022) Hunger Vital Sign Worried About Running Out of Food in the Last Year: Never true Ran Out of Food in the Last Year: Never true Transportation Needs: Not on file Physical Activity: Not on file Stress: Not on file Social Connections: Not on file Intimate Partner Violence: Not on file Housing Stability: Not on file Review of patient's allergies indicates: Allergen Reactions Sulfamethoxazole Other Reaction(s): Rash Trimethoprim Other Reaction(s): Rash Amoxicillin Rash Bactrim Rash Ciprofloxacin Rash Diltiazem Rash Feldene [Piroxicam] Rash Keflex [Cephalexin] Rash Meloxicam Rash Other reaction(s): Other Pletal [Cilostazol] Rash and Unknown I have reviewed medications and allergies. Please refer to MAR in the facility's medical record forthe most up-to-date medication list as this cannot be edited in [employer]. Review of Systems: Constitutional ROS: +change in weight, No change in weakness, No change in fatigue and No fevers, sweats, or chills Nose ROS: No nasal stuffiness and No significant epistaxis Mouth/Throat ROS: No thrush or No sore throat Neck ROS: No lumps or masses, No swollen glands, No recent swelling in thyroid area and No significant pain in neck Pulmonary ROS: see HPI Cardiovascular ROS: No chest pain, + shortness of breath, No edema, No palpitations and No syncope Gastrointestinal ROS: No abdominal pain, No change in bowel habits, No significant change in appetite, No nausea, vomiting, diarrhea, or constipation and No dysphagia + s/p colostomy Skin/Integumentary ROS: No rash and No itching Neurologic ROS: No headaches and No seizures Psychiatric ROS: No depression, No anxiety and No psychosis Sleep: FRANCIS OBJECTIVE: PHYSICALEXAM: I reviewed the most recent facilities vitals. General: alert, no distress, well nourished and well developed Eye Exam: Conjunctiva are pink and non-injected, sclera clear Nose: no mucosal erythema, no mucosal edema, no purulent discharge Oropharynx: no exudate, no erythema, lips, buccal mucosa, and tongue normal and mucous membranes are moist Neck: supple, no adenopathy, non-tender, neck veins flat, trachea midline Heart: regular rate & rhythm, no murmurs and no gallops Lungs: normal respiratory rate and rhythm, no chest wall tenderness, lungs distant BS. Clear today Abdomen: abdomen soft, non-tender, normal bowel sounds and no masses or organomegaly/ colostomy functioning well Extremities: no edema, no clubbing, no cyanosis Skin: skin color, texture, turgor are normal, no rashes or significant lesions ASSESSMENT: Acute on chronic respiratory failure with hypoxia (HCC) (Primary) Breathing is stable currently Will continue O2 try to keep at 3 L/min Will follow COPD, group B, by GOLD 2017 classification (HCC) Stable currently Continue Anoro Ellipta 62.5/25mcg daily and Budesonide 0.25mg BID and Albuterol prn Paroxysmal atrial fibrillation (HCC) Stable rate Continue Xarelto 15mg daily Continue Isoptin SR 120mg daily Hypertensive kidney disease with stage 3b chronic kidney disease (HCC) Stable BP and CKD Continue Lisinopril 10mg daily Will d/c Lasix 20mg daily due to weight loss and no evidence of fluid overload. Pt is on fluid restriction also. Colostomy status (HCC) Stable and functioning well PLAN: Reviewed CBC, BMP, Lytes and Continue present medication(s):as ordered. Nursing Home Home Treatment Given: Lab Draw partial anemia panel tomorrow Electronically signed by: Bouchra Slater PA-C Over 35 minutes were spent in this visit more than half the time was spent counselling or coordinating care. documented in this encounter Plan of Treatment Upcoming Encounters Date Type Department Care Team (Late st Contact Info) Description 08/16/2023 8:00 AM EST Fdc Visit [address] [place] [address] Ephraim Burgess MD [address] [place] [address] [place] [address] 09/01/2023 12:00 PM EST Office Visit Sleep Disorders Ctr [facility] [address] [place] [phone] [place] Busby, DO [address] [place] [address] 10/23/2023 2:30 PM EDT Office Visit Rheumatology [address] [place] [phone] Jessica Stubbs [address] [place] [address] 10/31/2023 1:00 PM EDT Cardiac Studies Cardiac Studies, [facility] [address] [place] [address] 11/01/2023 9:30 AM EDT Procedure Only Endoscopy, [facility] [address] [place] [address] Gasper Kim, DO [address] [place] [address] 11/01/2023 10:00 AM EDT Procedure Only Endoscopy, [facility] [address] [place] [address] Gasper Kim, DO [address] [place] [address] 11/14/2023 12:20 PM EDT Office Visit Gastroenterology, [facility] [address] [place] [address] Gasper Kim, DO [address] [place] [address] 03/26/2024 1:30 PM EDT Office Visit Nephrology [address] [place] [address] Ayana Anna PA-C [address] [place] [address] 05/01/2024 3:00 PM EDT Office Visit Dermatology [address] [place] [address] Anya Pratt PA-C [address] [place] [address] [place] [address] Health Maintenance Due Date Last Done Comments DISCUSS TOBACCO CESSATION (REFER TO SMARTSET #3291) 1940 COVID-19 Vaccine ( season) 2023 06/01/2021, 10/20/2020, 09/15/2020 Influenza Vaccine (FLU shot) (#1) 2023 Depression Screening 08/11/2023 08/11/2022 Albumin/Creatinine Ratio 08/15/2023 08/15/2022, 01/31 CKD PHOS USE SMARTSET 60686 12/28/202312/02, 04/26/2022, 11/23/2021, Additional history exists GFR 02/12/2024 08/14/2023, 01/31, 12/27/2022, Additional history exists O2 ASSESSMENT COMPLETED IN PAST YEAR FOR COPD 02/29/2024 02/28/2023 DXA Scan 08/01/2024 08/01/2022, 07/05, 07/07/2020, Additional history exists CKD HGB USE SMARTSET 40527 08/14/202408/14, 08/14/2023, 02/28/2023, Additional history exists COLONOSCOPY-EVERY 5 YRS AGES 18-100 07/31/2028 07/31/2023, 02/23/2022, 02/23/2022, Additional history exists DTaP,Tdap,and Td Vaccines (2 - Td or Tdap) 08/07/2030 08/07/2020 (Not indicated), 09/01/1998 Pneumococcal Vaccine: 65+ Years Completed 05/16/2016, 12/01/2014, 12/01/2013, Additional history exists VITAMIN D LEVEL ONCE IN A LIFETIME-USE SMARTSET# [id number] Completed 12/27/2022, 08/12/2022, 03/15/2022, Additional history exists [...] chronic respiratory failure with hypoxia (HCC)- Primary COPD, group B, by GOLD 2017 classification (HCC) Paroxysmal atrial fibrillation (HCC) Atrial fibrillation Hypertensive kidney disease with stage 3b chronic kidney disease (HCC) Colostomy status (HCC) Colostomy status documented in this encounter Care Teams Live Hanger Relationship Specialty Start Date End Date Tameka Hooper MD [address] [place] [address] [place] [address] PCP - General Family Medicine 05/29/19 documented as of this encounter
--- OUTSIDE RECORDS SUMMARY | 2023-08-29 03:52 | External Medical Summary ---
Author Name Unknown Address Unknown Organization [id number] [address] [place] [address] Laboratory Report Ordering Provider Test Date Status LAVINIA ESCOBAR 08/14/2023 05:55:00 Final Observation Date Value Abnormality Reference (Units ) Status Nucleated erythrocytes/100 leukocytes [Ratio] in Blood by Automated count 08/14/2023 05:55:00 Final Performing Location [facility] - [address] [place] [address]
--- OUTSIDE RECORDS SUMMARY | 2023-08-29 03:52 | External Medical Summary | Continuity Of Care Document ---
Author Name Unknown Address [address] [place] [address] Organization [facility] ( ) Care Team Providers Care Remarketing Rep Name Role Phone Ephraim Burgess Primary Care Provider [phone] Allergies Allergy Reaction Start Date End Date Status AMOXIL Active BACTRIM Active CEPHALEXIN Active CILOSTAZOL Active CIPRO Active DILTIAZEM Active FELODIPINE Active MELOXICAM Active SULFA (SULFONAMIDE ANTIBIOTICS) Active VITAL SIGNS Date Time Diastolic blood pressure Systolic blood pressure Body height Body weight Temperature SpO2 Blood Sugar Pulse Respirations 61724 209 76373 4 57.00 mm[Hg] - Sitting 128.00 mm[Hg] - Sitting 60 NI 170.00 NI 98.30 Oral 90.00 % 70.00/ min 18.00/min 28669 209 62242 3 57.00 mm[Hg] - Sitting 128.00 mm[Hg] - Sitting 98.30 Ear 70.00/ min 18.00/min 23237 210 63954 5 68.00 mm[Hg] - Sitting 121.00 mm[Hg] - Sitting 170.00 NI 97.00 Ear 66.00/ min 18.00/min 59667 210 02088 5 57.00 mm[Hg] - Lying Down 128.00 mm[Hg] - Lying Down 170.00 NI 98.30 Ear 70.00/ min 18.00/min 59195 210 46114 9 170.00 NI 21824 210 06540 6 170.00 NI 28992 210 54959 0 68.00 mm[Hg] - Sitting 121.00 mm[Hg] - Sitting 97.00 Oral 93.00 % 66.00/ min 18.00/min 80958 211 32142 4 42324 211 55459 6 64.00 mm[Hg] - Sitting 119.00 mm[Hg] - Sitting 98.50 Oral 95.00 % 70.00/ min 18.00/min 65020 212 10550 0 61.00 mm[Hg] - Sitting 138.00 mm[Hg] - Sitting 97.50 Ear 93.00 % 64.00/ min 20.00/min 33981 212 50936 7 60 NI Immunizations Vaccine Date Status COVID-19 09/15/2020 Completed COVID-19 10/20/2020 Completed COVID-19 06/01/2021 Completed (PCV13)Pneumococcal 12/01/2014 Completed (PCV20)Pneumococcal 12/01/2013 Completed
--- OUTSIDE RECORDS SUMMARY | 2023-08-29 03:52 | External Medical Summary | Summary of Care ---
Author Name Unknown Organization [facility] Address [address] [place] [address] Phone [phone] Care Team Providers Care Lodging House Keeper Name Role Phone Tameka Hooper MD Primary Care Prov ider Reason for Visit * Reason Onset Date Comments Skilled Visit 08/14/2023 Encounter Details Date Type Department Care Team (Latest Contact Info) Description 08/14/2023 6:30 AM EST Snf Visit [facility] [address] [place] [address] Bouchra Slater PA-C [address], [place] [phone] Acute on chronic respiratory failure with hypoxia (HCC)*; COPD, group B, by GOLD 2017 classification (HCC); Colostomy status (HCC); Gastrointestinal hemorrhage associated with gastric ulcer; Low hemoglobin; Paroxysmal atrial fibrillation (HCC); Stage 3b chronic kidney disease Allergies Active Allergy Reactions Criticality Noted Date Comments Amoxicillin Rash 02/07/2020 Bactrim Rash 12/15/2011 Ciprofloxacin Rash 12/15/2011 Diltiazem Rash 05/29/2019 Piroxicam Rash 12/15/2011 Cephalexin Rash 12/15/2011 Meloxicam Rash 05/29/2019 Other reaction(s): Other Cilostazol Rash,Unknown 12/15/2011 Sulfamethoxazole High 01/19/2023 Other Reaction(s): Rash Trimethoprim High 01/19/2023 Other Reaction(s): Rash documented as of this encounter (statuses as of 08/14/2023) Medications Medication Sig Dispensed Refills Start Date [...] every night at bedtime. 0 Active Compressor NebulizerIndication s:COPD, moderate (HCC) Inhale [...] 03/20/2023 Active Xarelto 15 MG Oral Tablet (Rivaroxaban)Indica [...] takes 1/2 tab daily 0 08/11/2023 Active Ipratropium-Albuter ol 0.5-2.5 (3) MG/3ML Inhalation Solution (Duoneb) Inhale [...] fluid accumulation or weight gain 0 08/11/2023 Active documented as of this encounter (statuses as of 08/14/2023) Active Problems Problem Noted Date Diagnosed Date IBD (inflammatory bowel disease) 08/11/2023 Gastrointestinal hemorrhage [...] as of this encounter (statuses as of 08/14/2023) Resolved Problems Problem Noted Date Diagnosed Date [...] as of this encounter (statuses as of 08/14/2023) Immunizations Name Administration Dates Next Due COVID-19 [...] Contact Info) Description 08/16/2023 8:00 AM EST Snf Visit [address] [place] [address] Ephraim Burgess MD [address] [place] [address] [place] [address] 09/01/2023 12:00 PM EST [facility] [address] [phone] [place] Busby, [address] [place] [address] 10/23/2023 2:30 PM EDT Office Visit Rheumatology [address] [place] [phone] Jessica Stubbs CRNP [address] [place] [address] [place] [address] 10/31/2023 1:00 PM EDT [facility] [address] [place] [address] 11/01/2023 9:30 AM EDT Procedure Only Endoscopy, [facility] [address] [place] [address] Gasper Kim, DO [address] [place] [address] 11/01/2023 10:00 AM EDT Procedure Only Endoscopy, [facility] [address] [place] [address] Gasper Kim, DO [address] [place] [address] 11/14/2023 12:20 PM EDT Office Visit Gastroenterology, [facility] [address] [place] [address] Gasper Kim, [address] [place] [address] 03/26/2024 1:30 PM EDT Office Visit Nephrology [address] [place] [address] Ayana Anna PA-C [address] [facility] [place] [address] 05/01/2024 3:00 PM EDT Office Visit Dermatology [address] [place] [address] Anya Pratt PA-C [address] [place] [address] [place] [address] Health Maintenance Due Date Last Done Comments DISCUSS TOBACCO CESSATION (REFER TO SMARTSET #3291) 1940 COVID-19 Vaccine ( season) 2023 06/01/2021, 10/20/2020, 09/15/2020 Influenza Vaccine (FLU shot) (#1) 2023 Depression Screening 08/11/2023 08/11/2022 Albumin/Creatinine Ratio 08/15/2023 08/15/2022, 01/31 CKD PHOS USE SMARTSET 60414 12/28/202312/02, 04/26/2022, 11/23/2021, Additional history exists GFR 02/12/2024 08/14/2023, 01/31, 12/27/2022, Additional history exists O2 ASSESSMENT COMPLETED IN PAST YEAR FOR COPD 02/29/2024 02/28/2023 DXA Scan 08/01/2024 08/01/2022, 07/05, 07/07/2020, Additional history exists CKD HGB USE SMARTSET 38001 08/14/202408/14, 08/14/2023, 02/28/2023, Additional history exists COLONOSCOPY-EVERY 5 YRS AGES 18-100 07/31/2028 07/31/2023, 02/23/2022, 02/23/2022, Additional history exists DTaP,Tdap,and Td Vaccines (2 - Td or Tdap) 08/07/2030 08/07/2020 (Not indicated), 09/01/1998 Pneumococcal Vaccine: 65+ Years Completed 05/16/2016, 12/01/2014, 12/01/2013, Additional history exists VITAMIN D LEVEL ONCE IN A LIFETIME-USE SMARTSET# [id number] Completed 12/27/2022, 08/12/2022, 03/15/2022, Additional history exists [...] group B, by GOLD 2017 classification (HCC) Colostomy status (HCC) Colostomy status Gastrointestinal hemorrhage associated with gastric ulcer Low hemoglobin Anemia, unspecified Paroxysmal atrial fibrillation (HCC) Atrial fibrillation Stage 3b chronic kidney disease documented in this encounter Care Teams Lodging House Keeper Relationship Specialty Start Date End Date Taemka Hooper MD [address] [place] [address] [place] [phone] PCP - General Family Medicine 05/29/19 documented as of this encounter
--- OUTSIDE RECORDS SUMMARY | 2023-08-29 03:52 | External Medical Summary ---
Author Name Unknown Address Unknown Organization [facility] [address] [place] [address] Laboratory Report Ordering Provider Test Date Status LAVINIA ESCOBAR 08/14/2023 05:55:00 Final Observation Date Value Abnormality Reference (Units ) Status SYNC LEUKOCYTES IN BLOOD BY AUTOMATED COUNT 08/14/2023 05:55:00 8.42 4.00-10.80 (K/uL) Final Segs 08/14/2023 05:55:00 58.5 40.0-75.0 (%) Final Lymphs % 08/14/2023 05:55:00 21.3 18.0-42.0 (%) Final Monos 08/14/2023 05:55:00 13.1 Above high normal 1.0-11.0 (%) Final Eosinophils 08/14/2023 05:55:00 6.7 Above high normal 0.0-6.0 (%) Final Basos 08/14/2023 05:55:00 0.4 0.0-2.0 (%) Final Absolute Segs 08/14/2023 05:55:00 4.94 1.80-7.70 (K/uL) Final Lymphs, absolute 08/14/2023 05:55:00 1.79 1.00-4.80 (K/ul) Final Monos, Abs 08/14/2023 05:55:00 1.10 0.00-1.10 (K/uL) Final Eos, Abs 08/14/2023 05:55:00 0.56 0.00-0.70 (K/uL) Final Basos, Abs 08/14/2023 05:55:00 0.03 0.00-0.20 (K/uL) Final Performing Location [facility] [address] [place] [address]
--- OUTSIDE RECORDS SUMMARY | 2023-08-29 03:52 | External Medical Summary | Summary of Care ---
Author Name Unknown Organization [facility] Address [address] [place] [address] Phone [phone] Care Team Providers Care Flight Operations Coordinator Name Role Phone Tameka Hooper MD Primary Care Prov ider Reason for Visit * Reason Onset Date Comments Longterm Visit 08/14/2023 Encounter Details Date Type Department Care Team (Latest Contact Info) Description 08/11/2023 8:30 AM EST Longterm Visit [facility] [address] [place], [place] [phone] Bouchra Slater PA-C [address] [place] [address] Acute on chronic respiratory failure with hypoxia (HCC)*; COPD, group B, by GOLD 2017 classification (HCC); Paroxysmal atrial fibrillation (HCC); Hypertensive kidney disease with stage 3b chronic kidney disease (HCC); Colostomy status (HCC); Hypoparathyroidism, unspecified hypoparathyroidism type (HCC); Major depressive disorder with single episode, in full remission (HCC); Other specified peripheral vascular diseases (HCC); Mixed hyperlipidemia; Macular degeneration of left eye, unspecified type; FRANCIS (obstructive sleep apnea); Tobacco use disorder; Essential (primary) hypertension; IBD (inflammatory bowel disease); Gastrointestinal hemorrhage associated with gastric ulcer; Hiatal hernia; Schatzki's ring of distal esophagus Allergies Active Allergy Reactions Criticality Noted Date [...] Dispensed Refills Start Date End Date Status [place]-3 Fatty Acids (FISH OIL) 500 MG Capsule [...] as directed. 1 Each 1 2 Active Mesalamine 1.2 GM Oral Tablet Delayed Release (Lialda) TAKE BY MOUTH 3 TABLETS IN THE MORNING. 270 Tablet 3 3 Active Solifenacin Succinate 5 MG Oral Tablet (VESIcare)Indica tions:Urge incontinence,Uri nary frequency,Urinar y urgency,Mixed incontinence Take 1 Tablet by mouth in the morning. 90 Tablet 3 3 Active Xarelto 15 MG Oral Tablet (Rivaroxaban)Ind ications:Chronic atrial fibrillation (HCC) TAKE 1 TABLET BY MOUTH EVERY DAY 90 Tablet 3 3 Active Budesonide 0.25 MG/2ML Inhalation Suspension INHALE CONTENTS OF ONE VIAL (2ML) TWICE DAILY 0 3 Active Ferrous Sulfate 325 (65 Fe) MG Oral Tablet (Feosol) TAKE 1 TABLET BY MOUTH EVERY DAY WITH BREAKFAST 90 Tablet 1 3 Active Albuterol Sulfate HFA 108 (90 Base) MCG/ACT Inhalation Aerosol SolutionIndicati ons:COPD, moderate (HCC) INHALE 2 PUFFS BY MOUTH NEEDED FOR COUGH, SHORTNESS OF BREATH OR WHEEZING. 18 g 5 3 Active Escitalopram Oxalate 10 MG Oral Tablet (Lexapro)Indicat ions:Major depressive disorder, single episode, unspecified TAKE 1 TABLET BY MOUTH EVERY DAY 90 Tablet 1 4 Active Triamcinolone Acetonide 0.5 % External Cream (Aristocort)Silvana cations:Dermatit is APPLY TO AFFECTED AREA TWICE A DAY 60 g 5 4 Active Acetaminophen 325 MG Oral Tablet (Tylenol) Take 1 Tablet by mouth every 6 hours as needed for Pain, Mild, Fever >38C(100.5F), Pain, Moderate or Pain, Severe. Pt takes 1/2 tab daily 0 4 Active Ipratropium-Albu terol 0.5-2.5 (3) MG/3ML Inhalation Solution (Duoneb) Inhale 3 mL via nebulizer every 4 hours as needed for Wheezing. 0 4 Active Lisinopril 10 MG Oral Tablet (Prinivil) Take 1 Tablet by mouth in the morning. 0 4 Active Verapamil HCl ER 120 MG Oral Tablet Extended Release (Isoptin SR) Take 1 Tablet by mouth in the morning. 0 4 Active Sucralfate 1 GM Oral Tablet (Carafate) Take 1 Tablet by mouth 4 times a day before meals and at bedtime. half an hour before meals and at bedtime 0 4 Active Pantoprazole Sodium 40 MG Oral Tablet Delayed Release (Protonix) Take 1 Tablet by mouth in the morning. 0 4 Active Furosemide 20 MG Oral Tablet (Lasix) Take 1 Tablet by mouth. for fluid accumulation or weight gain 0 4 Active Acetaminophen 325 MG Oral Tablet Take 1 Tablet by mouth every 6 hours as needed for Pain, Mild. Pt takes 1/2 tab daily 0 08/11/19 24 Discontinued(Re fill) Fluticasone Propionate 50 MCG/ACT Nasal Suspension (Flonase) SPRAY 2 SPRAYS INTO EACH NOSTRIL EVERY DAY 48 mL 1 2 08/11/19 24 Discontinued(Me dication List Clean Up) Ipratropium-Albu terol 0.5-2.5 (3) MG/3ML Inhalation Solution (Duoneb)Indicati ons:COPD, moderate (HCC) INHALE 1 VIAL VIA NEBULIZER EVERY 6 HOURS NEEDED FOR WHEEZING 360 mL 5 3 08/11/19 24 Discontinued(Re fill) Nystatin 182235 UNIT/GM External CreamIndications :Yeast dermatitis Apply topically to affected area 2 times a day. To affacted area for two weeks. 30 g 3 3 08/11/19 24 Discontinued Meclizine HCl 12.5 MG Oral Tablet (Antivert)Indica tions:Vertigo TAKE 1 TABLET BY MOUTH THREE TIMES A DAY FOR DIZZINESS 30 Tablet 3 3 08/11/19 24 Discontinued Estradiol 0.1 MG/GM Vaginal Cream (Estrace)Indicat ions:Postmenopau brenda atrophic vaginitis Administer 2 g into the vagina in the morning. as directed.. 42.5 g 3 3 08/11/19 24 Discontinued(Me dication List Clean Up) Lisinopril 2.5 MG Oral Tablet (Prinivil)Indica tions:Essential (primary) hypertension Take 1 Tablet by mouth in the morning. 90 Tablet 3 3 08/11/19 24 Discontinued oxyBUTYnin Chloride ER 5 MG Oral Tablet Extended Release 24 Hour (Ditropan XL) TAKE 1 TABLET BY MOUTH EVERY DAY IN THE MORNING 0 08/11/19 24 Discontinued(Me dication/Dose Changed) Verapamil HCl ER 240 MG Oral Capsule Extended Release 24 HourIndications: Chronic atrial fibrillation (HCC) TAKE 1 CAPSULE BY MOUTH EVERY DAY 90 Capsule 1 4 08/11/19 24 Discontinued(Me dication/Dose Changed) Flecainide Acetate 50 MG Oral Tablet (Tambocor)Indica tions:Paroxysmal atrial fibrillation (HCC) TAKE 1 TABLET BY MOUTH TWICE A DAY 180 Tablet 3 4 08/11/19 24 Discontinued(Fl dication List Clean Up) documented as of this [...] Contact Info) Description 08/16/2023 8:00 AM EST Longterm Visit [address] [place] [address] Ephraim Burgess MD [address] [place] [address] [place] [address] 09/01/2023 12:00 PM EST Office Visit Sleep Disorders Ctr [facility] 132 [facility] [place] [phone] Lynn Busby, 132 [facility] [place] [address] 10/23/2023 2:30 PM EDT Office Visit Rheumatology [address] [place] [phone] Jessica Stubbs CRNP [address] [place] [address] [place] [address] 10/31/2023 1:00 PM EDT Cardiac Studies Cardiac Studies, [facility] 132 [facility] [place] [address] 11/01/2023 9:30 AM EDT Procedure Only Endoscopy, [facility] [address] [place], [place] [address] Gasper Kim, DO [address] [place] [address] 11/01/2023 10:00 AM EDT [facility] [address] [place], [place] [address] Gasper Kim, DO [address] [place] [address] 11/14/2023 12:20 PM EDT Office Visit Gastroenterology, [facility] [address] [place] [address] Gasper Kim, DO [address] [place] [address] 03/26/2024 1:30 PM EDT Office Visit Nephrology [address] [place] [address] ZemaitisAyana PA-C [address] [place] [address] 05/01/2024 3:00 PM EDT Office Visit Dermatology [address] [place] [address] Anya Pratt PA-C [address] [place] [address] [place] [address] Health Maintenance Due Date Last Done Comments DISCUSS TOBACCO CESSATION (REFER TO SMARTSET #3291) 1942 COVID-19 Vaccine ( season) 2023 06/01/2021, 10/20/2020, 09/15/2020 Influenza Vaccine (FLU shot) (#1) 2023 Depression Screening 08/11/2023 08/11/2022 Albumin/Creatinine Ratio 08/15/2023 08/15/2022, 01/31 CKD PHOS USE SMARTSET 00077 12/28/202312/02, 04/26/2022, 11/23/2021, Additional history exists GFR 02/12/2024 08/14/2023, 01/31, 12/27/2022, Additional history exists O2 ASSESSMENT COMPLETED IN PAST YEAR FOR COPD 02/29/2024 02/28/2023 DXA Scan 08/01/2024 08/01/2022, 07/05, 07/07/2020, Additional history exists CKD HGB USE SMARTSET 08004 08/14/202408/14, 08/14/2023, 02/28/2023, Additional history exists COLONOSCOPY-EVERY 5 YRS AGES 18-100 07/31/2028 07/31/2023, 02/23/2022, 02/23/2022, Additional history exists DTaP,Tdap,and Td Vaccines (2 - Td or Tdap) 08/07/2030 08/07/2020 (Not indicated), 09/01/1998 Pneumococcal Vaccine: 65+ Years Completed 05/16/2016, 12/01/2014, 12/01/2013, Additional history exists VITAMIN D LEVEL ONCE IN A LIFETIME-USE SMARTSET# 29247 Completed 12/27/2022, 08/12/2022, 03/15/2022, Additional history exists [...] disease (HCC) Colostomy status (HCC) Colostomy status Hypoparathyroidism, unspecified hypoparathyroidism type (HCC) Major depressive disorder with single episode, in full remission (HCC) Other specified peripheral vascular diseases (HCC) Mixed hyperlipidemia Macular degeneration of left eye, unspecified type FRANCIS (obstructive sleep apnea) Obstructive sleep apnea (adult) (pediatric) Tobacco use disorder Essential (primary) hypertension Unspecified essential hypertension IBD (inflammatory bowel disease) Other and unspecified noninfectious gastroenteritis and colitis Gastrointestinal hemorrhage associated with gastric ulcer Hiatal hernia Diaphragmatic hernia without mention of obstruction or gangrene Schatzki's ring of distal esophagus documented in this encounter Care Teams Flight Operations Coordinator Relationship Specialty Start Date End Date Tameka Hooper MD [address] [place] [address] [place] [address] PCP - General Family Medicine 05/29/19 documented as of this encounter
--- OUTSIDE RECORDS SUMMARY | 2023-08-29 03:52 | External Medical Summary ---
Author Name Unknown Address Unknown Organization [facility] [address] [place] [address] Laboratory Report Ordering Provider Test Date Status LAVINIA ESCOBAR 08/14/2023 05:55:00 Final Observation Date Value Abnormality Reference (Units ) Status WBC, Total 08/14/2023 05:55:00 8.42 4.00-10.8 0 (K/uL) Final RBC 08/14/2023 05:55:00 2.77 3.85-5.15 (M/uL) Final Hemoglobin 08/14/2023 05:55:00 7.8 Below low normal 12 .0-15.3 (g/dL) Final HCT 08/14/2023 05:55:00 26.4 Below low normal 36. 0-45.2 (%) Final MCV 08/14/2023 05:55:00 95.3 81.5-97.5 (fL) Final MCH 08/14/2023 05:55:00 28.2 27.0-34.0 (pg) Final MCHC 08/14/2023 05:55:00 29.5 32.0-36.0 (g/dL) Final RDW 08/14/2023 05:55:00 17.4 11.5-15.5 (%) Final Platelets 08/14/2023 05:55:00 375 140-400 (K /uL) Final MPV 08/14/2023 05:55:00 9.7 6.6-11.1 ( fL) Final Performing Location [facility] [place] [address] [place] [address]
--- OUTSIDE RECORDS SUMMARY | 2023-08-29 03:52 | External Medical Summary | Summary of Care ---
Author Name Unknown Organization [facility] Address [address] [place] [address] Phone [phone] Care Team Providers Care Material Control Specialist Name Role Phone Tameka Hooper MD Primary Care Prov ider Encounter Details Date Type Department Care Team (Late st Contact Info) Description 08/13/2023 Orders Only Lab [place] Phlebotomy [facility] [address] [place] [address] Ephraim Burgess MD [address] [place] [address] [place] [address] GI bleed*; COPD (chronic obstructive pulmonary disease) ([facility]); HTN, goal below 140/90; PAF (paroxysmal atrial fibrillation) ([facility]) Allergies Active Allergy Reactions Criticality Noted Date Comments Amoxicillin Rash 02/07/2020 Bactrim Rash 12/15/2011 Ciprofloxacin Rash 12/15/2011 Diltiazem Rash 05/29/2019 Piroxicam Rash 12/15/2011 Cephalexin Rash 12/15/2011 Meloxicam Rash 05/29/2019 Other reaction(s): Other Cilostazol Rash,Unknown 12/15/2011 Sulfamethoxazole High 01/19/2023 Other Reaction(s): Rash Trimethoprim High 01/19/2023 Other Reaction(s): Rash documented as of this encounter (statuses as of 08/13/2023) Medications Medication Sig Dispensed Refills Start Date End Date Status [place]-3 Fatty Acids (FISH OIL) 500 MG [...] as of this encounter (statuses as of 08/13/2023) Active Problems Problem Noted Date Diagnosed Date [...] as of this encounter (statuses as of 08/13/2023) Resolved Problems Problem Noted Date Diagnosed Date [...] as of this encounter (statuses as of 08/13/2023) Immunizations Name Administration Dates Next Due COVID-19 [...] Team (Late st Contact Info) Description 08/14/2023 8:10 AM EST Laboratory Lab [place] Phlebotomy [facility] 100 [facility] [place] [address] [facility], [facility] Mobile [facility] [address] [place] [address] 08/16/2023 8:00 AM EST Prison Visit [address] [place] [address] Ephraim Burgess MD [address] [place] [address] [place] [address] 09/01/2023 12:00 PM EST Office Visit [facility] Ctr [facility] [address] [place] [phone] Lynn Busby DO [address] [place] [address] 10/23/2023 2:30 PM EDT Office Visit Rheumatology [address] [place] [phone] Jessica Stubbs CRNP [address] [place] [address] [place] [address] 10/31/2023 1:00 PM EDT Cardiac Studies Cardiac Studies, [facility] [address] [place] [address] 11/01/2023 9:30 AM EDT Procedure Only Endoscopy, [facility] [address] [place] [address] Gasper Kim, [address] [place] [address] 11/01/2023 10:00 AM EDT Procedure Only Endoscopy, [facility] [address] [place] [address] Gasper Kim, DO [address] [place] [address] 11/14/2023 12:20 PM EDT Office Visit Gastroenterology, [facility] [address] [place] [address] Gasper Kim, DO [address] [place] [address] 03/26/2024 1:30 PM EDT Office Visit Nephrology [address] [place] [address] ZemaAyana hurtado PA-C 200 [facility] [place] [address] 05/01/2024 3:00 PM EDT Office Visit Dermatology [address] [place] [address] Anya Pratt PA-C [address] [place] [address] [place] [address] Scheduled Orders Name Type Priority Associated Diagnoses Orde r Schedule CBC WITH WBC DIFFERENTIAL Lab Routine GI bleed COPD (chronic obstructive pulmonary disease) (HCC) HTN, goal below 140/90 PAF (paroxysmal atrial fibrillation) (HCC) Expected: 08/14/2023, Expires: 08/13/2024 BASIC METABOLIC PANEL Lab Routine GI bleed COPD (chronic obstructive pulmonary disease) (HCC) HTN, goal below 140/90 PAF (paroxysmal atrial fibrillation) (HCC) Expected: 08/14/2023, Expires: 08/13/2024 Health Maintenance Due Date Last Done Comments DISCUSS TOBACCO CESSATION (REFER TO SMARTSET #3291) 1942 COVID-19 Vaccine ( season) 2023 06/01/2021, 10/20/2020, 09/15/2020 Influenza Vaccine (FLU shot) (#1) 2023 Depression Screening 08/11/2023 08/11/2022 Albumin/Creatinine Ratio 08/15/2023 08/15/2022, 01/31 GFR 08/17/2023 02/14/2023, 12/02, 08/12/2022, Additional history exists CKD PHOS USE SMARTSET 02222 12/28/202312/02, 04/26/2022, 11/23/2021, Additional history exists CKD HGB USE SMARTSET 01542 02/29/202402/28, 02/28/2023, 02/14/2023, Additional history exists O2 [...] D LEVEL ONCE IN A LIFETIME-USE SMARTSET# 85289 Completed 12/27/2022, 08/12/2022, 03/15/2022, Additional history exists [...] as of this encounter Visit Diagnoses Diagnosis GI bleed- Primary Hemorrhage of gastrointestinal tract, unspecified COPD (chronic obstructive pulmonary disease) (HCC) Chronic airway obstruction, not elsewhere classified HTN, goal below 140/90 Unspecified essential hypertension PAF (paroxysmal atrial fibrillation) (HCC) Atrial fibrillation documented in this encounter Care Teams Material Control Specialist Relationship Specialty Start Date End Date Tameka Hooper MD [address] [place] [address] [place] [phone] PCP - General Family Medicine 05/29/19 documented as of this encounter
--- OUTSIDE RECORDS SUMMARY | 2023-08-29 03:52 | External Medical Summary ---
Author Name Unknown Address Unknown Organization K0G:[facility] [address] [place] [address] Laboratory Report Ordering Provider Test Date Status LAVINIA ESCOBAR 08/14/2023 05:55:00 Final Observation Date Value Abnormality Reference (Units ) Status BUN 08/14/2023 05:55:00 22 Above high normal 6-20 (mg/dL) Final Creatinine 08/14/2023 05:55:00 1.4 Above high normal 0.5-1.0 (mg/dL) Final Glomerular filtration rate/1.73 sq M.predicted [Volume Rate/Area] in Serum, Plasma or Blood by Creatinine-based formula (CKD-EPI) 08/14/2023 05:55:00 37 Below low normal >=60 (mL/min) Final eGFR is calculated based on the CKD-EPI 2020 equation SODIUM 08/14/2023 05:55:00 141 135-146 (m mol/L) Final Potassium 08/14/2023 05:55:00 3.9 3.5-5.1 (m mol/L) Final Cl 08/14/2023 05:55:00 105 98-107 (mm ol/L) Final CO2 08/14/2023 05:55:00 26 22-32 (mmo l/L) Final Anion gap 08/14/2023 05:55:00 10 7-15 (mmol /L) Final Glucose 08/14/2023 05:55:00 101 70-120 (mg /dL) Final Calcium 08/14/2023 05:55:00 8.8 8.4-10.2 ( mg/dL) Final [facility] [place] [address]
--- OUTSIDE RECORDS SUMMARY | 2023-08-29 03:53 | External Medical Summary | Continuity Of Care Document ---
Author Name Unknown Address [address] [place] [address] Organization [facility] ( ) Care Team Providers Care Battery Wrecker Operator Name Role Phone Ephraim Burgess Primary Care Provider [phone] Allergies Allergy Reaction Start Date End Date Status AMOXIL Active BACTRIM Active CEPHALEXIN Active CILOSTAZOL Active CIPRO Active DILTIAZEM Active FELODIPINE Active MELOXICAM Active SULFA (SULFONAMIDE ANTIBIOTICS) Active VITAL SIGNS Date Time Diastolic blood pressure Systolic blood pressure Body height Body weight Temperature SpO2 Blood Sugar Pulse Respirations 67651 209 34462 4 57.00 mm[Hg] - Sitting 128.00 mm[Hg] - Sitting 60 NI 170.00 NI 98.30 Oral 90.00 % 70.00/ min 18.00/min 25235 209 42101 3 57.00 mm[Hg] - Sitting 128.00 mm[Hg] - Sitting 98.30 Ear 70.00/ min 18.00/min 89329 210 46062 5 68.00 mm[Hg] - Sitting 121.00 mm[Hg] - Sitting 170.00 NI 97.00 Ear 66.00/ min 18.00/min 66149 210 22203 5 57.00 mm[Hg] - Lying Down 128.00 mm[Hg] - Lying Down 170.00 NI 98.30 Ear 70.00/ min 18.00/min 13464 210 66196 9 170.00 NI 66142 210 77701 6 170.00 NI 26807 210 67897 0 68.00 mm[Hg] - Sitting 121.00 mm[Hg] - Sitting 97.00 Oral 93.00 % 66.00/ min 18.00/min 211 [address] 4 45 6 64.00 mm[Hg] - Sitting 119.00 mm[Hg] - Sitting 98.50 Oral 95.00 % 70.00/ min 18.00/min Immunizations Vaccine Date Status COVID-19 09/15/2020 Completed COVID-19 10/20/2020 Completed COVID-19 06/01/2021 Completed (PCV13)Pneumococcal 12/01/2014 Completed (PCV20)Pneumococcal 12/01/2013 Completed
--- OUTSIDE RECORDS SUMMARY | 2023-08-29 06:15 | External Medical Summary | Summary of Care ---
Author Name Unknown Organization [facility] Address [address] [place] [address] Phone [phone] Care Team Providers Care Fiberglass Dowel Drawing Operator Name Role Phone Tameka Hooper MD Primary Care Prov ider Reason for Visit * Reason Onset Date Comments Home Health 08/28/2023 Encounter Details Date Type Department Care Team (Late st Contact Info) Description 08/28/2023 Telephone Family Medicine [address] [phone] Sameer Mckinnon MD [address] [place] [address] [place] [address] Home Health Allergies Active Allergy Reactions Criticality Noted Date Comments Amoxicillin Rash 02/07/2020 Bactrim Rash 12/15/2011 Ciprofloxacin Rash 12/15/2011 Diltiazem Rash 05/29/2019 Piroxicam Rash 12/15/2011 Cephalexin Rash 12/15/2011 Meloxicam Rash 05/29/2019 Other reaction(s): Other Cilostazol Rash,Unknown 12/15/2011 Sulfamethoxazole High 01/19/2023 Other Reaction(s): Rash Trimethoprim High 01/19/2023 Other Reaction(s): Rash documented as of this encounter (statuses as of 08/28/2023) Medications Medication Sig Dispensed Refills Start Date [...] the morning. 90 Tablet 3 08/17/2023 Active Vitamin C 500 MG Oral [...] as of this encounter (statuses as of 08/28/2023) Active Problems Problem Noted Date Diagnosed Date [...] as of this encounter (statuses as of 08/28/2023) Resolved Problems Problem Noted Date Diagnosed Date [...] as of this encounter (statuses as of 08/28/2023) Immunizations Name Administration Dates Next Due COVID-19 [...] the money to buy more. Never true 08/25/19 24 Within the past 12 months, t he food you bought just didn't last and you didn't have money to get more. Never true 08/25/2023 Sex and Gender Information Value Date Recorded Sex Assigned at Female 08/11/2021 12:39 PM EST Gender Identity Female 08/11/2021 12:39 PM EST Sexual Orientation Straight 08/11/2021 12 :39 PM EST Job Start Date Occupation Industry Not on file Not on file Not on file documented as of this encounter Miscellaneous Notes * Telephone Encounter - Sameer Mckinnon MD - 08/28/2023 1:06 PM EST Recommend a clinic eval * Telephone Encounter - Tiffanie Wyatt LPN - 08/28/2023 11:25 AM EST HH Concerns Liya RODRIGUEZ, Calling from: [place] Report/Concerns of: Lightheadedness Symptoms: lightheaded Vitals: T 97.8 P 69 RR 18 BP 118/50 SP O2 95% 3LPM Narrative: Liya currently with patient for HH visit, she is reporting that Eliazar has been having ongoing lightheadedness for months but noting it to be more frequent. She stated that it is not positional as patient is lightheaded even when she is sitting down. She also is noted to be fatigued. She does not have any other accompanying symptoms: No Vision issues, no nausea/vomiting, no confusion, no SOB, no Chest Pain. Please advise Call back patient with any advice documented in this encounter Plan of Treatment Upcoming Encounters Date Type Department Care Team (Late st Contact Info) Description 09/01/2023 12:00 PM EST Office Visit Sleep Disorders Ctr [facility] [address] [place] [phone] Lynn Busby, [address] [place] [address] 10/23/2023 2:30 PM EDT Office Visit Rheumatology [address] [place] [phone] Jessica Stubbs CRNP [address] [place] [address] [place] [address] 10/31/2023 1:00 PM EDT Cardiac Studies Cardiac Studies, [facility] [address] [place] [address] 11/01/2023 9:30 AM EDT Procedure Only Endoscopy, [facility] [address] [place] [address] Gasper Kim, DO [address] [place] [address] 11/01/2023 10:00 AM EDT Procedure Only Endoscopy, [facility] [address] [place] [address] Gasper Kim, DO [address] [place] [address] 11/14/2023 12:20 PM EDT Office Visit Gastroenterology, [facility] [address] [place] [address] Gasper Kim, DO [address] [place] [address] 11/23/2023 3:00 PM EDT Office Visit Family Medicine [address] [place] [phone] Betsey Cramer CRNP [address] [place] [address] [place] [address] 03/26/2024 1:30 PM EDT Office Visit Nephrology [address] [place] [address] Ayana Anna PA-C [address] [place] [address] 05/01/2024 3:00 PM EDT Office Visit Dermatology [address] [place] [address] Anya Pratt PA-C [address] [place] [address] [place] [address] Health Maintenance Due Date Last Done Comments DISCUSS TOBACCO CESSATION (REFER TO SMARTSET #3291) 1940 COVID-19 Vaccine ( season) 2023 06/01/2021, 10/20/2020, 09/15/2020 Influenza Vaccine (FLU shot) (#1) 2023 Albumin/Creatinine Ratio 08/15/2023 08/15/2022, 01/31 CKD PHOS USE SMARTSET 13674 12/28/202312/02, 04/26/2022, 11/23/2021, Additional history exists GFR 02/12/2024 08/14/2023, 01/31, 12/27/2022, Additional history exists DXA Scan 08/01/2024 08/01/2022, 07/05, 07/07/2020, Additional history exists CKD HGB USE SMARTSET 82397 08/16/202408/16, 08/14/2023, 08/14/2023, Additional history exists Depression [...] D LEVEL ONCE IN A LIFETIME-USE SMARTSET# 95096 Completed 12/27/2022, 08/12/2022, 03/15/2022, Additional history exists [...] patient or by statute hierarchy) Care Teams Fiberglass Dowel Drawing Operator Relationship Specialty Start Date End Date Tameka Hooper MD [address] [place] [address] [place] [address] PCP - General Family Medicine 05/29/19 documented as of this encounter
[2023-08-29] MEDS: BUDESONIDE 0.25 MG/2 ML VIAL (PULMICORT) INH SCH (07:12)
[2023-08-29 08:00] LABS: Estimated Average Glucose 103 mg/dl; Hemoglobin A1C 5.2 % (4.5-5.6)
[2023-08-29 08:17] LABS: Hematocrit (blood only) 27.8 % (37.0-47.0); Hemoglobin 8.3 g/dl (12.0-16.0); Mean Corpuscular Hemoglobin 27.9 pg (25.0-34.0); Mean Corpuscular Hgb Conc 29.9 g/dL (32.0-36.0); Mean Corpuscular Volume 93.6 fL (80.0-100.0); Mean Platelet Volume 9.3 fL (9.4-12.4); Platelet Count 220 K/uL (130-400); RDW Coefficient of Variation 17.3 % (11.5-14.5); RDW Standard Deviation 58.7 fL (36.4-46.3); Red Blood Count 2.97 M/uL (4.20-5.40); White Blood Count 4.31 K/ul (4.8-10.8)
[2023-08-29 08:39] LABS: BUN Creatinine Ratio 12.1 (10-20); Calcium 8.4 mg/dl (8.6-10.3); Creatinine Clr Calc Pharmacy 33.3 ml/min; Est GFR (African American) 43.7 ml/min; Est GFR (Non-African American) 37.7 ml/min; Immature Granulocytes # (auto) 0.06 K/uL (0.01-0.20); Immature Granulocytes % (auto) 1.4 %; Lymphocytes # (auto) 0.81 K/uL (1.20-3.40); Lymphocytes % (auto) 18.8 %; Monocytes # (auto) 0.13 K/uL (0.11-0.59); Neutrophils # (auto) 3.31 K/uL (1.40-6.50); Neutrophils % (auto) 76.8 %; Potassium 4.3 mmol/L (3.5-5.1); RBC Morphology Unremarkable
[2023-08-29] MEDS: PANTOprazole 40 MG TAB PO SCH (09:09)
[2023-08-29] MEDS: OXYBUTYNIN CHLORIDE XL 5 MG TABCR PO SCH (09:09)
[2023-08-29] MEDS: predniSONE 20 MG TAB PO SCH (09:09)
[2023-08-29] MEDS: VERAPAMIL HCL 120 MG TABCR PO SCH (09:10)
[2023-08-29] MEDS: FERROUS SULFATE 325 MG TAB PO SCH (09:10)
[2023-08-29] MEDS: ESCITALOPRAM OXALATE 10 MG TAB PO SCH (09:10)
[2023-08-29] MEDS: CEROVITE ADV FORMULA TAB PO SCH (09:10)
[2023-08-29] MEDS: guaiFENesin 600 MG TABCR PO SCH (09:10)
[2023-08-29] MEDS: lisinopril 10 MG TAB PO SCH (09:10)
[2023-08-29] MEDS: UMECLIDINIUM/VILANTEROL 62.5/25MCG 7 PUFFS/INHALER INH SCH (09:11)
--- NOTE | 2023-08-29 10:23 | Electrocardiogram Report ---
Test Reason : Blood Pressure : / mmHG Vent. Rate : 074 BPM Atrial Rate : 074 BPM P-R Int : 234 ms QRS Dur : 068 ms QT Int : 374 ms P-R-T Axes : 082 -06 035 degrees QTc Int : 415 ms Sinus rhythm with sinus arrhythmia with 1st degree A-V block Low voltage QRS Cannot rule out Anteroseptal infarct (cited on or before 29-JUL-2023) Abnormal ECG When compared with ECG of 05-AUG-2023 18:31, Questionable change in initial forces of Anterior leads Confirmed by Torey Sifuentes ([id number]) on 08/29/2023 10:23:21 AM Referred By: REFERRED SELF Confirmed By:Torey Sifuentes
[2023-08-29] MEDS: OSELTAMIVIR PHOSPHATE SUSP 30 MG/5 ML UDP PO SCH (10:37)
--- NOTE | 2023-08-29 12:38 | Hospitalist Progress Note ---
Date of Service August 29, 2023 Assessment & Plan (1) Acute on chronic respiratory failure: (2) Influenza A: (3) COPD (chronic obstructive pulmonary disease): (4) Atrioventricular (AV) dissociation: (5) PAF (paroxysmal atrial fibrillation): (6) PVD (peripheral vascular disease): (7) FRANCIS (obstructive sleep apnea): (8) CKD (chronic kidney disease), stage III: (9) HTN (hypertension): (10) HLD (hyperlipidemia): (11) Colostomy in place: (12) Physical deconditioning: Plan This is an 83-year-old female with PMHx significant for history of suspected IBD, history of diverticulitis and resection of large bowel with colostomy, chronic hypoxemic respiratory failure, COPD, FRANCIS on 3L NC, paroxysmal atrial fibrillation on Xarelto, hypertension CKD 3, depression who presents with worsening shortness of breath and was found to have acute on chronic respiratory failure in setting of influenza A, COPD and volume overload. Acute on chronic hypoxemic, hypercapnic respiratory failure COPD exacerbation Influenza illness FRANCIS, CPAP noncompliant Pt on 3L of oxygen at baseline Positive for Nasal Flu H1 2009 virus chest XRAY noting small pleural effusions Supplemental O2 Nebs scheduled, prednisone course Tamiflu course Consider diuresis for small pleural effusions noted on chest xray Continue to monitor Consider palliative consult for goals of care discussion- pt has been admitted/re-admitted multiple times in the last few months IBD history postop colostomy for diverticulitis patient complaining of left-sided abdominal/flank pain CT abd/pelvis noting parastomal hernia with loops of nonobstructed bowel General surgery consulted- appreciate recs Hx of atrial fibrillation Hx of heart block 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, xarelto telemetry monitoring Hypertension On lisinopril, verapamil slightly elevated on admission secondary to missed medications BP currently wnl CKD creatinine at baseline, monitor Chronic anemia hemoglobin at baseline GERD on PPI Hx of Prediabetes hgba1c currently wnl at 5.2 Stable DVT prophylaxis: on xarelto Full code Dispo: PT/OT ordered, consider palliative discussion Admission and Anticipated Discharge Date Admission Date: August 28, 2023 Subjective Pt was seen while still down in the ED. Was back on her baseline oxygen of 3L. Denied acute concerns at the time she was seen. Review of Systems Review of Systems: All systems reviewed & are unremarkable except as noted in Subjective Physical Exam Physical Exam: General: Alert, oriented. No acute distress Psych: Appropriate mood and affect Neuro: generalized weakness HEENT: NC/AT CV: RRR Resp: Breath sounds decreased bilaterally, no increased effort of breathing. Abdomen: Soft,colostomy bag noted with output Extremities: edema in lower extremities bilaterally. Results & Data Results & Data Vital Signs (Past 12 Hours) Vital Signs Pulse Pulse Resp BP BP Pulse Ox Pulse Ox 08/29/23 11:00 71 24 154/56 H 94 08/29/23 07:23 71 08/29/23 07:17 66 12 138/58 L 95 08/29/23 07:13 74 18 95 08/29/23 06:00 69 23 142/64 H 92 08/29/23 05:00 80 25 H 148/58 H 92 08/29/23 04:00 73 25 H 133/61 93 08/29/23 03:00 72 22 128/52 L 91 08/29/23 02:00 82 26 H 155/93 H 92 08/29/23 01:15 08/29/23 01:12 83 17 161/65 H 96 08/29/23 01:12 80 18 96 08/29/23 01:10 83 08/29/23 01:00 94 08/29/23 01:00 94 08/29/23 00:48 26 H 95 08/29/23 00:40 79 28 H 94 O2 Del Method O2 Del Method O2 Flow Rate O2 Flow Rate 08/29/23 11:00 08/29/23 07:23 08/29/23 07:17 Room Air 3 08/29/23 07:13 Nasal Cannula 3 08/29/23 06:00 Nasal Cannula 3 08/29/23 05:00 Nasal Cannula 3 08/29/23 04:00 Nasal Cannula 3 08/29/23 03:00 Nasal Cannula 3 08/29/23 02:00 Nasal Cannula 3 08/29/23 01:15 Nasal Cannula 3 08/29/23 01:12 Nasal Cannula 3 08/29/23 01:12 Nasal Cannula 3 08/29/23 01:10 08/29/23 01:00 Nasal Cannula 3 08/29/23 01:00 Nasal Cannula 3 08/29/23 00:48 Nasal Cannula 3 08/29/23 00:40 Diagnostic Findings Chest X-Ray 08/28/23 18:36 XR chest 1V portable CLINICAL HISTORY: Chest pain, nonspecific TECHNIQUE: Single frontal radiograph of the chest was obtained. Comparison: Comparison is made to chest radiograph 08/07/[address] abdomen pelvis 08/06/2023 FINDINGS: No lines and tubes are seen. Calcified aortic knob is seen. Reticular interstitial opacities are seen. Small bilateral pleural effusions are suggested. IMPRESSION: Likely small bilateral pleural effusions. Interstitial lung disease is seen. ACT 112: Negative or not required by law. Electronically signed by: Yoel Elena M.D. 08/28/2023 7:20 PM Abdomen/Pelvis CT 08/28/23 21:54 Exam(s): CT ABDOMEN + PELVIS Without Contrast EXAM: CT Abdomen and Pelvis Without Intravenous Contrast CLINICAL HISTORY: Reason for exam: L abd pain. TECHNIQUE: Axial computed tomography images of the abdomen and pelvis without intravenous contrast. Automated exposure control was utilized for the study. A dose lowering technique was utilized adhering to the principles of ALARA. COMPARISON: No relevant prior studies available. FINDINGS: Lung bases: Atelectasis at the lung bases. ABDOMEN: Liver: Unremarkable. Gallbladder and bile ducts: Unremarkable. No calcified stones. No ductal dilation. Pancreas: Unremarkable. No ductal dilation. Spleen: Unremarkable. No splenomegaly. Adrenals: Unremarkable. No mass. Kidneys and ureters: Mild fullness of the LEFT and a click consistent. No obstructive uropathy. Bilateral nonobstructing renal calculi measuring up to 12 mm in the LEFT lower pole. Stomach and bowel: Large LEFT lower quadrant parastomal hernia measures approximately 10.2 x 14.0 cm and contains multiple large and small bowel loops. No bowel obstruction. No mucosal thickening. PELVIS: Appendix: No findings to suggest acute appendicitis. Bladder: Unremarkable. No stones. Reproductive: Atrophy of the uterus. ABDOMEN and PELVIS: Intraperitoneal space: Unremarkable. No free air. No significant fluid collection. Bones/joints: Degenerative changes of the spine. No acute fracture. No dislocation. Soft tissues: See above. Vasculature: Atherosclerotic changes of the aorta. No abdominal aortic aneurysm. Lymph nodes: Unremarkable. No enlarged lymph nodes. IMPRESSION: 1. Large LEFT lower quadrant parastomal hernia measures approximately 10. 2 x 14.0 cm and contains multiple large and small bowel loops. No bowel obstruction. 2. Bilateral nonobstructing renal calculi measuring up to 12 mm in the LEFT lower pole. Electronically signed by: Tato Tapia MD 08/28/23 23:16 PM (3) COPD (chronic obstructive pulmonary disease) COPD type: unspecified COPD Qualified Code(s): J44.9 - Chronic obstructive pulmonary disease, unspecified (8) CKD (chronic kidney disease), stage III Chronic kidney disease stage 3 subtype: unspecified whether 3a or 3b Qualified Code(s): N18.30 - Chronic kidney disease, stage 3 unspecified
[2023-08-29] MEDS: RIVAROXABAN 15 MG TAB PO SCH (20:20)
[2023-08-30 06:21] LABS: Basophils # (auto) 0.01 K/uL (0.00-0.20); Basophils % (auto) 0.1 %; Hematocrit (blood only) 27.1 % (37.0-47.0); Hemoglobin 8.2 g/dl (12.0-16.0); Lymphocytes # (auto) 1.51 K/uL (1.20-3.40); Lymphocytes % (auto) 14.8 %; Mean Corpuscular Hemoglobin 28.5 pg (25.0-34.0); Mean Corpuscular Hgb Conc 30.3 g/dL (32.0-36.0); Mean Corpuscular Volume 94.1 fL (80.0-100.0); Mean Platelet Volume 9.4 fL (9.4-12.4); Monocytes # (auto) 0.68 K/uL (0.11-0.59); Monocytes % (auto) 6.7 %; Neutrophils # (auto) 7.91 K/uL (1.40-6.50); Neutrophils % (auto) 77.4 %; Platelet Count 247 K/uL (130-400); RDW Coefficient of Variation 17.5 % (11.5-14.5); RDW Standard Deviation 60.5 fL (36.4-46.3); Red Blood Count 2.88 M/uL (4.20-5.40); White Blood Count 10.21 K/ul (4.8-10.8)
[2023-08-30 06:45] LABS: Albumin Level 3.3 gm/dl (3.4-5.0); BUN Creatinine Ratio 14.1 (10-20); Bilirubin,Total 0.2 mg/dl (0.2-1.0); Calcium 8.7 mg/dl (8.6-10.3); Creatinine Clr Calc Pharmacy 32.5 ml/min; Est GFR (African American) 42.6 ml/min; Est GFR (Non-African American) 36.7 ml/min; Globulin 3.2 gm/dl (2.5-4.0); Magnesium 2.1 mg/dl (1.7-2.4); Phosphorus 4.1 mg/dl (2.5-4.9); Potassium 4.3 mmol/L (3.5-5.1); Total Protein 6.5 gm/dl (6.0-8.3)
[2023-08-30] MEDS ORDERED: MICONAZOLE NITRATE POWDER 85 GM EXT PRN (06:57)
--- NOTE | 2023-08-30 18:13 | Hospitalist Progress Note ---
Date of Service August 30, 2023 Assessment & Plan (1) Acute on chronic respiratory failure: (2) Influenza A: (3) COPD (chronic obstructive pulmonary disease): (4) Atrioventricular (AV) dissociation: (5) PAF (paroxysmal atrial fibrillation): (6) PVD (peripheral vascular disease): (7) FRANCIS (obstructive sleep apnea): (8) CKD (chronic kidney disease), stage III: (9) HTN (hypertension): (10) HLD (hyperlipidemia): (11) Colostomy in place: (12) Physical deconditioning: Plan Ms. Beaulieu is an 83-year-old female with PMHx significant for history of suspected IBD, history of diverticulitis and resection of large bowel with colostomy, chronic hypoxemic respiratory failure, COPD, FRANCIS on 3L NC, paroxysmal atrial fibrillation on Xarelto, hypertension CKD 3, depression who presents with worsening shortness of breath and was found to have acute on chronic respiratory failure in setting of influenza A, COPD and volume overload. Patient states she is much improved and near baseline. #Acute on chronic hypoxemic, hypercapnic respiratory failure #COPD exacerbation #Influenza illness #FRANCIS, CPAP noncompliant Pt on 3L of oxygen at baseline Positive for Nasal Flu H1 2009 virus chest XRAY noting small pleural effusions Supplemental O2 Nebs scheduled, prednisone course Tamiflu course Consider diuresis for small pleural effusions noted on chest xray Continue to monitor #IBD #Parastomal hernia #history postop colostomy for diverticulitis patient complaining of left-sided abdominal/flank pain CT abd/pelvis noting parastomal hernia with loops of nonobstructed bowel General surgery consulted- appreciate recs -OP follow up with CRS or hernia specialist after flu recovery #Hx of atrial fibrillation #Hx of heart block #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, xarelto telemetry monitoring #Hypertension On lisinopril, verapamil slightly elevated on admission secondary to missed medications BP currently wnl #CKD creatinine at baseline, monitor #Chronic anemia hemoglobin at baseline #GERD on PPI #Hx of Prediabetes hgba1c currently wnl at 5.2 Stable DVT prophylaxis: on xarelto Full code Dispo: PT/OT ordered, Admission and Anticipated Discharge Date Admission Date: August 28, 2023 Subjective Patient evaluated in bedside chair Reports feeling near back to baseline, denies any acute concerns this am Physical Exam Respiratory: normal respiratory effort, lungs clear to auscultation Cardiovascular: RRR, no murmur, no edema Gastrointestinal (Abdomen): large hernia on left side by stoma, brown output in ostomy bag Results & Data Results & Data Vital Signs (Past 12 Hours) Vital Signs Temp Pulse Pulse Resp BP Pulse Ox O2 Del Method 08/30/23 15:05 37.1 C 69 16 149/71 H 90 Nasal Cannula 08/30/23 13:04 63 18 96 Nasal Cannula 08/30/23 11:05 94 08/30/23 11:05 36.6 C 58 L 20 154/69 H 95 Room Air 08/30/23 08:00 Nasal Cannula 08/30/23 07:34 36.7 C 60 18 146/69 H 92 Room Air 08/30/23 07:27 61 15 90 Nasal Cannula 08/30/23 07:00 65 O2 Flow Rate 08/30/23 15:05 3 08/30/23 13:04 3 08/30/23 11:05 08/30/23 11:05 08/30/23 08:00 3 08/30/23 07:34 08/30/23 07:27 3 08/30/23 07:00 Laboratory Results Short CBC 08/30/23 Range/Units 05:35 WBC 10.21 (4.8-10.8) K/ul Hgb 8.2 L (12.0-16.0) g/dl Hct 27.1 L (37.0-47.0) % Plt Count 247 (130-400) K/uL BMP 08/30/23 05:35 Sodium 144 Potassium 4.3 Chloride 108 H Carbon Dioxide 30 BUN 19 Creatinine 1.35 H Glucose 113 H Calcium 8.7 Liver Function 08/30/23 Range/Units 05:35 Total Bilirubin 0.2 (0.2-1.0) mg/dl AST 11 L (13-39) U/L ALT 7 (7-52) U/L Alkaline Phosphatase 55 (34-104) U/L Albumin 3.3 L (3.4-5.0) gm/dl Medications Administered Home Medications Medication Instructions Recorded Confirmed Last Taken calcium carbonate 500 mg-vitamin 1 tab PO QPM 03/10/19 08/28/23 08/27/23 D3 10 mcg (400 unit) tablet (Calcium 500 + D) escitalopram oxalate 10 mg tablet 10 mg PO QAM 03/10/19 08/28/23 08/28/23 (Lexapro) ferrous sulfate 325 mg (65 mg 325 mg PO QAM 03/10/19 08/28/23 08/28/23 iron) tablet vit C 250 mg-vit E 90 mg-zinc 40 1 tab PO QAM 03/10/19 08/28/23 08/28/23 mg-copper 1 vs-[id number]-phzecn capsule (PreserVision AREDS-2) guaifenesin 600 mg tablet, 600 mg PO BID #60 tabs 07/16/20 08/28/23 08/28/23 extended release 12 hr (Mucinex) am dose ascorbic acid (vitamin C) 500 mg 500 mg PO QAM 12/08/20 08/28/23 08/28/23 tablet (Vitamin C) cyclosporine 0.05 % eye drops in a 1 drp OPB BID 12/08/20 08/28/23 08/28/23 dropperette (Restasis) am dose Portable Oxygen E0431 #1 ea 03/25/21 08/28/23 Unknown rivaroxaban 15 mg tablet (Xarelto) 15 mg PO QPM 11/05/21 08/28/23 08/27/23 Auto Titrating CPAP #1 ea 02/03/23 08/28/23 Unknown CPAP Supplies #1 ea 02/03/23 08/28/23 Unknown albuterol sulfate 90 mcg/actuation 1 inh inhalation QID PRN Shortness 02/03/23 08/28/23 08/28/23 aerosol inhaler (ProAir HFA) Of Breath #8.5 grams budesonide 0.25 mg/2 mL suspension 0.25 mg (2 mL) inhalation BID #60 02/03/23 08/28/23 08/28/23 for nebulization mL am umeclidinium 62.5 mcg-vilanterol 1 inh inhalation QAM #60 ea 02/03/23 08/28/23 08/28/23 25 mcg/actuation powdr for inhalation (Anoro Ellipta) mesalamine 1.2 gram tablet,delayed 3.6 g PO QAM 03/14/23 08/28/23 08/28/23 release acetaminophen 325 mg tablet 325 mg PO Q6H PRN Pain 07/25/23 08/28/23 Unknown (Tylenol) ipratropium 0.5 mg-albuterol 3 mg 3 ml inhalation Q4H PRN Wheezing 07/25/23 08/28/23 Unknown (2.5 mg base)/3 mL nebulization soln omega-3 fatty acids 500 mg capsule 500 mg PO QAM 07/25/23 08/28/23 08/28/23 solifenacin 5 mg tablet 5 mg PO QAM 07/25/23 08/28/23 08/28/23 triamcinolone acetonide 0.05 % 1 applic topical BID PRN AFFECTED 07/25/23 08/28/23 Unknown topical ointment AREA lisinopril 10 mg tablet 10 mg PO QAM #30 tabs 08/05/23 08/28/23 08/28/23 pantoprazole 40 mg tablet,delayed 40 mg PO QAM #30 tabs 08/05/23 08/28/23 Unknown release verapamil 120 mg tablet,extended 120 mg PO QAM #30 tabs 08/05/23 08/28/23 08/28/23 release (Calan SR) furosemide 20 mg tablet 20 mg PO QAM 08/28/23 08/28/23 08/28/23 Active Medications Generic Name Dose Route Start Last Admin Trade Name Freq PRN Reason Stop Dose Admin Budesonide 0.25 mg 08/29/23 07:00 08/30/23 07:24 Budesonide 0.25 Mg/2 Ml Vial (Pulmicort) INH 09/28/23 06:59 0.25 mg BIDR [place] Administration Escitalopram Oxalate 10 mg 08/29/23 09:00 08/30/23 09:04 Escitalopram Oxalate 10 Mg Tab PO 09/28/23 08:59 10 mg QAM [place] Administration Ferrous Sulfate 325 mg 08/29/23 09:00 08/30/23 09:05 Ferrous Sulfate 325 Mg Tab PO 09/28/23 08:59 325 mg QAM [place] Administration Guaifenesin 600 mg 08/29/23 09:00 08/30/23 09:04 Guaifenesin 600 Mg Tabcr PO 09/28/23 08:59 600 mg BID [place] Administration Ipratropium [place] 0.5 mg 08/29/23 01:00 08/30/23 13:02 Ipratropium [place] Neb Soln 0.02% 0.5mg/2.5ml Vial INH 09/28/23 00:59 0.5 mg Q6R [place] Administration Levalbuterol HCl 1.25 mg 08/29/23 01:00 08/30/23 13:02 Levalbuterol 1.25 Mg/3 Ml Neb NEB 09/28/23 00:59 1.25 mg Q6R [place] Administration Lisinopril 10 mg 08/29/23 09:00 08/30/23 09:04 Lisinopril 10 Mg Tab PO 09/28/23 08:59 10 mg QAM [place] Administration Miscellaneous 1 each 08/29/23 08:00 08/30/23 16:18 Mesalamine 1.2 Gram Tablet - Order Awaiting Action N/A 09/28/23 07:59 Not Given QS [place] Multivitamins/Minerals 1 tab 08/29/23 09:00 08/30/23 09:04 Cerovite Adv Formula Tab PO 09/28/23 08:59 1 tab QAM [place] Administration Oseltamivir Phosphate 30 mg 08/29/23 09:00 08/30/23 09:53 Oseltamivir Phosphate Susp 30 Mg/5 Ml Udp PO 09/03/23 08:59 30 mg BID [place] Administration Protocol Oxybutynin Chloride 5 mg 08/29/23 09:00 08/30/23 09:04 Oxybutynin Chloride Xl 5 Mg Tabcr PO 09/28/23 08:59 5 mg QAM [place] Administration Pantoprazole Sodium 40 mg 08/29/23 09:00 08/30/23 09:05 Pantoprazole 40 Mg Tab PO 09/28/23 08:59 40 mg QAM [place] Administration Prednisone 40 mg 08/29/23 09:00 08/30/23 09:05 Prednisone 20 Mg Tab PO 09/02/23 08:59 40 mg DAILY [place] Administration Rivaroxaban 15 mg 08/29/23 21:00 08/29/23 20:20 Rivaroxaban 15 Mg Tab PO 09/28/23 20:59 15 mg QPM [place] Administration Umeclidinium/Vilanterol 1 puffs 08/29/23 09:00 08/30/23 09:53 Umeclidinium/Vilanterol 62.5/25mcg 7 Puffs/Inhaler INH 09/28/23 08:59 1 pu ffs QAM [place] Administration Verapamil HCl 120 mg 08/29/23 09:00 08/30/23 09:04 Verapamil Hcl 120 Mg Tabcr PO 09/28/23 08:59 120 mg QAM [place] Administration (3) COPD (chronic obstructive pulmonary disease) COPD type: unspecified COPD Qualified Code(s): J44.9 - Chronic obstructive pulmonary disease, unspecified (8) CKD (chronic kidney disease), stage III Chronic kidney disease stage 3 subtype: unspecified whether 3a or 3b Qualified Code(s): N18.30 - Chronic kidney disease, stage 3 unspecified
[2023-08-30] MEDS: ARTIFICIAL TEARS OP PRN (20:51)
[2023-08-31 05:32] LABS: Albumin Level 3.1 gm/dl (3.4-5.0); BUN Creatinine Ratio 14.2 (10-20); Bilirubin,Total 0.3 mg/dl (0.2-1.0); Calcium 8.4 mg/dl (8.6-10.3); Creatinine Clr Calc Pharmacy 32.8 ml/min; Est GFR (Non-African American) 37.1 ml/min; Phosphorus 2.8 mg/dl (2.5-4.9); Potassium 4.1 mmol/L (3.5-5.1); Total Protein 6.1 gm/dl (6.0-8.3)
--- NOTE | 2023-08-31 13:37 | Discharge Summary ---
Discharge Summary Date of Service August 31, 2023 Notes For Next Care Provider Requires referral to Colorectal surgery for eval for parastomal hernia repair Medication Changes From Visit - 2 more days of Tamiflu 30mg BID (EOT 09/01) -2 more days of Prednisone (EOT 09/01) Admission HPI Per Admitting Provider This is an 83-year-old female with PMH of history of suspected IBD, history of diverticulitis and resection of large bowel with colostomy, chronic hypoxemic respiratory failure, COPD, FRANCIS on 3L NC, paroxysmal atrial fibrillation on Xarelto, hypertension CKD 3, depression and other medical problems listed below who presents with worsening shortness of breath. 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 On previous admission patient was started on lasix 20mg daily, which she was maintained on at discharge from [facility]. Since returning home, patient states she still felt rundown was doing okay until a few days ago when she started to have progressive shortness of breath as well as lightheadedness, prompting evaluation in ED. States she is officially quit smoking since these hospitalizations. Still not using CPAP. Did run out of Lasix and Xarelto and thinks she was out for 4 days total. Nurse refilled her pillbox today. Not entirely sure of the medication she takes. Complaining of lower back pain today in a bandlike distribution. Denies any falls and is mainly been sitting in recliner chair, which she states is similar to how she was at rehab at [facility]. Denies any fever, chills, syncopal events, chest pain, nausea, vomiting, abdominal pain, dysuria, diarrhea or constipation. Ostomy output is at baselin e. Admission Exam Per Admitting Provider General Appearance: WD/WN, vitals as above, NAD, sitting up in bed, pleasant, conversing easily with baseline NC O2 Head: normocephalic, atraumatic Eyes: normal inspection, PERRL, conjunctivae normal, anicteric sclerae ENT: external ear and nose normal, oropharynx normal Neck: normal visual inspection, trachea midline, no thyromegaly Respiratory: some increased respiratory effort, lungs with scattered rhonchi, bibasilar rales. No accessory muscle use Cardiovascular: regular rate, rhythm, normal peripheral pulses, 1+ BLE edema. Vessels: no JVD Chest: normal inspection of chest Abdomen/GI: normal bowel sounds, soft, nontender, no hepatosplenomegaly, +Colostomy with formed brown stool Extremities/Musculoskeletal: no cyanosis or clubbing, extremities motor strength 5/5 Neurologic: PERRL, EOMI, accommodation nl, no face palsy, no dysarthria, CN's II-XI intact bilaterally and moves all extremities Psychiatric: A+Ox3, depressed mood Skin: no rashes, normal color, warm/dry Principal Dx & Hospital Course #1 = Principal Diagnosis (1) Acute on chronic respiratory failure: (2) Influenza A: (3) COPD (chronic obstructive pulmonary disease): (4) Atrioventricular (AV) dissociation: (5) PAF (paroxysmal atrial fibrillation): (6) PVD (peripheral vascular disease): (7) FRANCIS (obstructive sleep apnea): (8) CKD (chronic kidney disease), stage III: (9) HTN (hypertension): (10) HLD (hyperlipidemia): (11) Colostomy in place: (12) Physical deconditioning: Plan Ms. Beaulieu is an 83-year-old female with PMHx significant for history of suspected IBD, history of diverticulitis and resection of large bowel with colostomy, chronic hypoxemic respiratory failure, COPD, FRANCIS on 3L NC, paroxysmal atrial fibrillation on Xarelto, hypertension CKD 3, depression who presents with worsening shortness of breath and was found to have acute on chronic respiratory failure in setting of influenza A, COPD. Patient states she is much improved and near baseline and ready for rehab. She states that her breathing is back to baseline on exam today and on baseline O2 requirements. During admission, patient was evaluated by surgery given development of parastomal hernia. She notes that it occasionally pulls, but with support it feels better after given abdominal binder for loose support. Patient to follow up with Colorectal surgery for evaluation. #Acute on chronic hypoxemic, hypercapnic respiratory failure *imporved #COPD exacerbation #Influenza A #Acute on chronic diastolic CHF #FRANCIS, CPAP noncompliant Pt on 3L of oxygen at baseline Positive for Nasal Flu H1 2009 virus chest XRAY noting small pleural effusions Supplemental O2 Nebs scheduled, prednisone course Tamiflu course s/p 1x lasix Resume home lasix #IBD #Parastomal hernia #history postop colostomy for diverticulitis patient complaining of left-sided abdominal/flank pain CT abd/pelvis noting parastomal hernia with loops of nonobstructed bowel General surgery consulted- appreciate recs -OP follow up with CRS or hernia specialist after flu recovery #Hx of atrial fibrillation #Hx of heart block #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, xarelto #Hypertension On lisinopril, verapamil slightly elevated on admission secondary to missed medications BP currently wnl #CKD creatinine at baseline, monitor #Chronic anemia hemoglobin at baseline #GERD on PPI #Hx of Prediabetes [id number] currently wnl at 5.2 Stable Discharge Exam Constitutional WD/WN, vitals as above Respiratory normal respiratory effort, lungs clear to auscultation No wheezing, no crackles, good entry though decreased breath sounds in periphery Cardiovascular RRR, no murmur, no edema Gastrointestinal (Abdomen) parastomal hernia Updated Medication List Medication Instructions Recorded Confirmed Type calcium carbonate 500 mg-vitamin 1 tab PO QPM 03/10/19 08/28/23 History D3 10 mcg (400 unit) tablet (Calcium 500 + D) escitalopram oxalate 10 mg tablet 10 mg PO QAM 03/10/19 08/28/23 History (Lexapro) ferrous sulfate 325 mg (65 mg 325 mg PO QAM 03/10/19 08/28/23 History iron) tablet vit C 250 mg-vit E 90 mg-zinc 40 1 tab PO QAM 03/10/19 08/28/23 History mg-copper 1 [id number] capsule (PreserVision AREDS-2) guaifenesin 600 mg tablet, 600 mg PO BID #60 tabs 07/16/20 08/28/23 Rx extended release 12 hr (Mucinex) ascorbic acid (vitamin C) 500 mg 500 mg PO QAM 12/08/20 08/28/23 History tablet (Vitamin C) cyclosporine 0.05 % eye drops in a 1 drp OPB BID 12/08/20 08/28/23 History dropperette (Restasis) Portable Oxygen E0431 #1 ea 03/25/21 08/28/23 Rx rivaroxaban 15 mg tablet (Xarelto) 15 mg PO QPM 11/05/21 08/28/23 History Auto Titrating CPAP #1 ea 02/03/23 08/28/23 Rx CPAP Supplies #1 ea 02/03/23 08/28/23 Rx albuterol sulfate 90 mcg/actuation 1 inh inhalation QID PRN Shortness 02/03/23 08/28/23 Rx aerosol inhaler (ProAir HFA) Of Breath #8.5 grams budesonide 0.25 mg/2 mL suspension 0.25 mg (2 mL) inhalation BID #60 02/03/23 08/28/23 Rx for nebulization mL umeclidinium 62.5 mcg-vilanterol 1 inh inhalation QAM #60 ea 02/03/23 08/28/23 Rx 25 mcg/actuation powdr for inhalation (Anoro Ellipta) mesalamine 1.2 gram tablet,delayed 3.6 g PO QAM 03/14/23 08/28/23 History release acetaminophen 325 mg tablet 325 mg PO Q6H PRN Pain 07/25/23 08/28/23 History (Tylenol) ipratropium 0.5 mg-albuterol 3 mg 3 ml inhalation Q4H PRN Wheezing 07/25/23 08/28/23 History (2.5 mg base)/3 mL nebulization soln omega-3 fatty acids 500 mg capsule 500 mg PO QAM 07/25/23 08/28/23 History solifenacin 5 mg tablet 5 mg PO QAM 07/25/23 08/28/23 History triamcinolone acetonide 0.05 % 1 applic topical BID PRN AFFECTED 07/25/23 08/28/23 History topical ointment AREA lisinopril 10 mg tablet 10 mg PO QAM #30 tabs 08/05/23 08/28/23 Rx pantoprazole 40 mg tablet,delayed 40 mg PO QAM #30 tabs 08/05/23 08/28/23 Rx release verapamil 120 mg tablet,extended 120 mg PO QAM #30 tabs 08/05/23 08/28/23 Rx release (Calan SR) furosemide 20 mg tablet 20 mg PO QAM 08/28/23 08/28/23 History oseltamivir 6 mg/mL oral 30 mg (5 mL) PO BID 3 days #30 mL 08/31/23 Rx suspension (Tamiflu) prednisone 20 mg tablet 40 mg (2 x 20 mg) PO DAILY 2 days 08/31/23 Rx #4 tabs Hospital Stay Data Consultations 08/28/23 20:21 ED Decision to Admit Stat 08/29/23 00:49 Consult General Surgery Routine Diagnostic Imagining Performed 08/28/23 21:54 CT Abd and Pelvis [CT abd pelvis wo con] Stat Pending Results Patient Have Any Pending Studies at Discharge: No Discharge Instructions Given to Patient (Per Discharging Provider) You were admitted for shortness of breath and found to be in COPD exacerbation with a strain of Influenza. You were treated with steroids and Tamiflu. Please continue Tamiflu 30mg two times a day, your next dose is this evening around 8-9pm, continue for 2 more days Please continue prednisone 40mgs once daily, your next dose is 08/31, please continue for 2 more days Please continue your home medications as prescribed. General surgery evaluated your ostomy site. They recommend you established with a Colorectal Surgeon upon resolution and stabilization of your respiratory status. Please work with your primary care provider to obtain a referral for evaluation for hernia repair. Total Time Total Time Spent Total Time Spent (In Minutes): 35
[2023-08-31] MEDS: FUROSEMIDE 40 MG TAB PO ONE (14:22)
== END 2023-08-31 14:41 | DRG 193 ==
LOC: ED 18:27 → EDINP 21:56 → SUATTDRO 21:56 → EDINP 08-29 00:37 → 2W 08-29 22:24

== ENCOUNTER 2023-10-12 16:20 | Inpatient (IN) ==
--- NOTE | 2023-10-12 16:28 | ED Triage Note ---
Date of Service October 12, 2023 Provider in Triage Author: Julia Stallings History of Present Illness This patient was briefly evaluated while in triage. An abbreviated physical exam was performed. This patient is a 83-year-old Female who presents to the ED via ambulance for evaluation of hypotension and weakness. Per EMS, home health found her to be 90s/50s. Home health believes she is dehydrated. Pt. does have history of "internal bleeding lesions" but unknown what these lesions may be. Pt. does take Xarelto. Does have history of COPD and on 3L O2 via NC chronically. Pt. states she feels "lightheaded, not dizzy." Physical Exam VITALS: Vitals are noted on the nurse's note and reviewed by myself. GENERAL: This is an 83 year old female, in no acute distress, nondiaphoretic, well-developed well-nourished. SKIN: No obvious rashes, edema, erythema HEAD: Normocephalic atraumatic. EYES: Conjunctivae without injection, sclerae without icterus. NECK: No JVD. LUNGS: No retractions or accessory muscle use. MUSCULOSKELETAL: Pt. presents in a wheelchair NEURO: Patient was alert and oriented to person place and time. No focal neurological deficits. Initial orders for labs and / or imaging were placed and patient was placed in the waiting area until a bed is available. Please see further documentation for the full ED course.
[2023-10-12 17:06] LABS: Appearance Urine Turbid (Clear); Bacteria Urine Automated None Seen (None Seen); Bilirubin Urine Negative (Negative); Blood Urine 3+ (Negative); Color Urine Yellow; Epithelial Cell Urine Auto 0-2 /hpf (0-2); Glucose Urine UA Negative (Negative); Ketones Urine Negative (Negative); Leukocyte Esterase Urine 3+ (Negative); Nitrite Urine Negative (Negative); Protein Urine 1+ (Negative); RBC Urine Automated >20 /hpf (0-2); Specific Gravity Urine 1.008 (1.000-1.030); Urobilinogen Urine Negative (Negative); WBC Urine Automated >50 /hpf (0-5); pH Urine 5.5 (4.5-7.5)
[2023-10-12 17:07] LABS: Basophils # (auto) 0.06 K/uL (0.00-0.20); Basophils % (auto) 0.4 %; Eosinophils # (auto) 0.46 K/uL (0.00-0.50); Eosinophils % (auto) 3.3 %; Hematocrit (blood only) 25.6 % (37.0-47.0); Hemoglobin 7.6 g/dl (12.0-16.0); Immature Granulocytes # (auto) 0.53 K/uL (0.01-0.20); Immature Granulocytes % (auto) 3.8 %; Lymphocytes # (auto) 2.58 K/uL (1.20-3.40); Lymphocytes % (auto) 18.3 %; Mean Corpuscular Hemoglobin 28.7 pg (25.0-34.0); Mean Corpuscular Hgb Conc 29.7 g/dL (32.0-36.0); Mean Corpuscular Volume 96.6 fL (80.0-100.0); Mean Platelet Volume 8.8 fL (9.4-12.4); Monocytes # (auto) 1.43 K/uL (0.11-0.59); Monocytes % (auto) 10.1 %; Neutrophils # (auto) 9.03 K/uL (1.40-6.50); Neutrophils % (auto) 64.1 %; Platelet Count 379 K/uL (130-400); RDW Coefficient of Variation 17.3 % (11.5-14.5); Red Blood Count 2.65 M/uL (4.20-5.40); White Blood Count 14.09 K/ul (4.8-10.8)
[2023-10-12 17:25] LABS: Alanine Aminotransferase 5 U/L (7-52); Albumin Level 3.6 gm/dl (3.4-5.0); Alkaline Phosphatase 69 U/L (34-104); Anion Gap 8 (3-11); Aspartate Aminotransferase 11 U/L (13-39); BUN Creatinine Ratio 19.9 (10-20); Bilirubin,Total 0.2 mg/dl (0.2-1.0); Blood Urea Nitrogen 41 mg/dl (6-23); Calcium 8.8 mg/dl (8.6-10.3); Carbon Dioxide 25 mmol/L (21-32); Chloride 105 mmol/L (98-107); Est GFR (African American) 25.5 ml/min; Globulin 3.6 gm/dl (2.5-4.0); Glucose 105 mg/dl (70-99(Fasting)); Potassium 4.2 mmol/L (3.5-5.1); Sodium 138 mmol/L (136-145); Total Protein 7.2 gm/dl (6.0-8.3)
[2023-10-12 17:31] LABS: Polychromasia 1+
[2023-10-12 17:32] LABS: Troponin I High Sensitivity 8.8 pg/ml (0-14)
[2023-10-12] MEDS: SODIUM CHLORIDE 0.9% 500 ML IV SCH (17:32)
[2023-10-12 17:35] LABS: INR 1.2 (0.9-1.1); Partial Thromboplastin Ratio 1.3; Partial Thromboplastin Time 37 Seconds (21-31); Prothrombin Time 12.8 Seconds (9.0-12.0)
--- NOTE | 2023-10-12 18:00 | XRay Report ---
XR chest 1V portable HISTORY: 83 years-old Female lightheadedness COMPARISON: 08/28/2023 TECHNIQUE: PA view of the chest FINDINGS: Cardiac silhouette is enlarged. Pulmonary vascular congestion with interstitial coarsening. Chronic b lunting of the right costophrenic angle. Small left pleural effusion with mild bibasilar opacities. N o pneumothorax. Degenerative changes of the shoulders and spine. IMPRESSION: 1. Cardiomegaly with unchanged pulmonary vascular congestion and interstitial coarsening suggestive o f pulmonary edema. 2. Small left pleural effusion with persistent left basilar opacities. ACT 112: Negative or not required by law. The above report was generated using voice recognition software. It may contain grammatical, syntax o r spelling errors. Electronically signed by: Stephen Rapp M.D. 10/12/2023 5:58 PM
--- NOTE | 2023-10-12 20:35 | CT Scan Report ---
Exam(s): CT HEAD Without Contrast EXAM: CT Head Without Intravenous Contrast CLINICAL HISTORY: Reason for exam: Dizzy. TECHNIQUE: Axial computed tomography images of the head/brain without intravenous contrast. CTDI is 52.29 mGy and DLP is 899.15 mGy-cm. Automated exposure control was utilized for the study. A dose lowering technique was utilized adhering to the principles of ALARA. COMPARISON: Head CT 07/27/2023 FINDINGS: Brain: No hemorrhage, extra-axial fluid collection, mass effect, or edema. Ventricles: Unremarkable. Bones/joints: Unremarkable. No fracture. Soft tissues: Unremarkable. Sinuses: No acute sinusitis. Mastoid air cells: Unremarkable as visualized. IMPRESSION: 1. No acute intracranial abnormality. Electronically signed by: Martín Emerson MD 10/12/23 20:34 PM
[2023-10-12] MEDS: cefTRIAXone SODIUM 1,000 MG in DEXTROSE 5 % MINI-B 50 ML IV STA (22:06)
--- NOTE | 2023-10-12 22:48 | History & Physical Report ---
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 Patient found to have LOPEZ and UTI. Patient states she is feeling lightheaded /dizziness for few weeks now. Currently no headache. Currently no runny nose. Has chronic cough. Denies any chest pain. Denies shortness of breath. Currently no nausea. No abdominal pain. States somewhat constipated. Denies any blood in the stools. She has had some burning micturition. Denies any hematuria. Ambulates without support. Currently resting comfortably. LOPEZ on CKD stage III baseline creatinine 1.7 presented with creatinine of 2 UTI Hypotension Will follow renal ultrasound Empiric Rocephin Follow cultures Gentle fluids Hold Lasix and lisinopril Follow repeat labs Monitor hemodynamics Close monitor Chronic hypoxic respiratory failure on 3 L oxygen History of COPD Obstructive sleep apnea Currently waiting for CPAP machine Will do CPAP nightly while in the hospital Continue home inhalers History of IBD suspected History of diverticulitis s/p resection On mesalamine Hypertension Holding lisinopril Verapamil with holding parameters History of A-fib Verapamil with holding parameters On Xarelto Anemia Possible acute on chronic anemia Baseline hemoglobin around eights Presented with hemoglobin 7.6 Will do stool for Hemoccult Iron studies Vitamin B12 folate levels Blood consent obtained Will hold Xarelto if any signs of bleeding History of A-fib History of heart block s/p pacemaker Verapamil with holding parameters On Xarelto GERD On Protonix DVT prophylaxis On Xarelto scds Disposition Med/telemetry Addendum : Am lab hb 6.5. Transfusing one unit prbc. Holding xarelto for now. Follow sttol for hemeoccult. 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 Patient found to have LOPEZ and UTI. Patient states she is feeling lightheaded /dizziness for few weeks now. Currently no headache. Currently no runny nose. Has chronic cough. Denies any chest pain. Denies shortness of breath. Currently no nausea. No abdominal pain. States somewhat constipated. Denies any blood in the stools. She has had some burning micturition. Denies any hematuria. Ambulates without support. Currently resting comfortably. Past medical history. As mentioned above Past surgical history. Colonoscopy. Bilateral lens extraction. Ligation of oviduct. Partial removal of colon. Tonsillectomy and adenoidectomy. EGD. Social history. . Smokes 0.3 packs/day for 60 years. No alcohol use. No drug use. Family history. Father had pancreatic cancer. Mother had stroke. Allergies Allergy/AdvReac Type Severity Reaction Status Date / Time amoxicillin Allergy Intermediate Rash Verified 10/12/23 20:55 cephalexin [From Keflex] Allergy Intermediate Rash Verified 10/12/23 20:55 cilostazol [From Pletal] Allergy Intermediate Rash Verified 10/12/23 20:55 ciprofloxacin [From Cipro] Allergy Intermediate Rash Verified 10/12/23 20:55 diltiazem Allergy Intermediate Rash Verified 10/12/23 20:55 felodipine Allergy Intermediate Rash Verified 10/12/23 20:55 meloxicam Allergy Intermediate Rash Verified 10/12/23 20:55 sulfamethoxazole Allergy Intermediate Rash Verified 10/12/23 20:55 [From Bactrim] trimethoprim [From Bactrim] Allergy Intermediate Rash Verified 10/12/23 20:55 Home Medications Medication Instructions Recorded Confirmed Type calcium carbonate 500 mg-vitamin 1 tab PO QPM 03/10/19 10/12/23 History D3 10 mcg (400 unit) tablet (Calcium 500 + D) escitalopram oxalate 10 mg tablet 10 mg PO QAM 03/10/19 10/12/23 History (Lexapro) ferrous sulfate 325 mg (65 mg 325 mg PO QAM 03/10/19 10/12/23 History iron) tablet vit C 250 mg-vit E 90 mg-zinc 40 1 tab PO QAM 03/10/19 10/12/23 History mg-copper 1 [id number] capsule (PreserVision AREDS-2) guaifenesin 600 mg tablet, 600 mg PO BID #60 tabs 07/16/20 10/12/23 Rx extended release 12 hr (Mucinex) ascorbic acid (vitamin C) 500 mg 500 mg PO QAM 12/08/20 10/12/23 History tablet (Vitamin C) cyclosporine 0.05 % eye drops in a 1 drp OPB BID 12/08/20 10/12/23 History dropperette (Restasis) Portable Oxygen E0431 #1 ea 03/25/21 08/28/23 Rx rivaroxaban 15 mg tablet (Xarelto) 15 mg PO QPM 11/05/21 10/12/23 History Auto Titrating CPAP #1 ea 02/03/23 08/28/23 Rx CPAP Supplies #1 ea 02/03/23 08/28/23 Rx budesonide 0.25 mg/2 mL suspension 0.25 mg (2 mL) inhalation BID #60 02/03/23 10/12/23 Rx for nebulization mL umeclidinium 62.5 mcg-vilanterol 1 inh inhalation QAM #60 ea 02/03/23 10/12/23 Rx 25 mcg/actuation powdr for inhalation (Anoro Ellipta) mesalamine 1.2 gram tablet,delayed 3.6 g PO QAM 03/14/23 10/12/23 History release acetaminophen 325 mg tablet 325 mg PO Q6H PRN PAIN/FEVER 07/25/23 10/12/23 History (Tylenol) ipratropium 0.5 mg-albuterol 3 mg 3 ml inhalation Q4H PRN Wheezing 07/25/23 10/12/23 History (2.5 mg base)/3 mL nebulization soln omega-3 fatty acids 500 mg capsule 500 mg PO QAM 07/25/23 10/12/23 History solifenacin 5 mg tablet 5 mg PO QAM 07/25/23 10/12/23 History lisinopril 10 mg tablet 10 mg PO QAM #30 tabs 08/05/23 10/12/23 Rx pantoprazole 40 mg tablet,delayed 40 mg PO QAM #30 tabs 08/05/23 10/12/23 Rx release furosemide 20 mg tablet 20 mg PO QAM 08/28/23 10/12/23 History albuterol sulfate 90 mcg/actuation 1 inh inhalation DIRECTED PRN 10/12/23 10/12/23 History aerosol inhaler (ProAir HFA) Shortness Of Breath denosumab 60 mg/mL subcutaneous 60 mg subcut .[id number] 10/12/23 10/12/23 History syringe (Prolia) verapamil 120 mg tablet,extended 120 mg PO QAM 10/12/23 10/12/23 History release Past Med/Surg History Medical History FRANCIS (obstructive sleep apnea) Osteoarthritis Chronic back pain Diverticular disease Skin cancer of nose 1970s--unsure which kind, removed in office On anticoagulant therapy xarelto daily On home oxygen therapy 4L N/C PRN PVD (peripheral vascular disease) PAF (paroxysmal atrial fibrillation) on xarelto/flecainide--follows with Dr. Savage Depression Macular degeneration Osteoporosis CKD (chronic kidney disease), stage III HTN (hypertension) HLD (hyperlipidemia) Multiple pulmonary nodules Tobacco dependence due to cigarettes 5 per day Chronic bronchitis COPD (chronic obstructive pulmonary disease) inhaler daily/prn, nebulizer daily/prn; continuous oxygen 3L Colostomy in place Diverticulitis Surgical History History of appendectomy taken out during resection of bowel History of colonoscopy History of tooth extraction History of cataract extraction with lens replacement bilateral History of tonsillectomy History of tubal ligation History of resection of large bowel (~10/2018) perforated bowel d/t diverticulitis History of creation of ostomy 10/2018 Family History Father Pancreatic cancer Mother Stroke Other No family history of adverse response to anesthesia Social History Smoking Status: Current every day smoker Tobacco Type: Cigarettes Age Started Using Tobacco: 22; Cigarettes Per Day: 1-2 cigarettes per day; Second Hand Exposure: No; Do You Dip or Chew Tobacco: No; Tobacco Cessation Education Requested by Patient: No Hx Alcohol Use: No Hx Substance Use: No Preferred Language: Qatari Communication Ability: Effective Licensed Practical Vocational Nurse Required: No Beliefs That Will Affect Care: None marital status: / Current Living Situation: Alone Current Living Situation Comment: Lives home alone, family checks in often, and has home health Other Information That Helps Us Care for You: No Feels Safe at Home: Yes Safety Concerns: Feels Safe At This Time Assistive Devices: Walker Assistive Devices Comment: doesn't use at home Review of Systems Review of Systems: All systems reviewed & are unremarkable except as noted in HPI & below Physical Exam Physical Exam: General- Not in distress Head- atraumatic Eyes- PERRL. ENT- oropharynx clear Neck- supple, no JVD. Lungs- clear to auscultation no wheezing or crackles. Heart- regular rhythm; no murmur, no gallop. Abdomen- normal bowel sounds, soft, nontender, no distension. Extremities- no pretibial edema, no erythema seen Neuro- alert, oriented PERRL, no facial palsy; no dysarthria; obeys simple commands. Results & Data Results & Data Vital Signs (Past 12 Hours) Vital Signs Temp Pulse Pulse Resp BP BP Pulse Ox 10/12/23 21:30 67 24 146/59 H 100 10/12/23 21:10 73 24 100 10/12/23 21:01 69 26 H 150/57 H 100 10/12/23 20:36 156/59 H 10/12/23 20:36 70 28 H 156/59 H 96 10/12/23 20:24 68 24 144/56 H 100 10/12/23 20:00 66 26 H 100 10/12/23 19:30 65 26 H 100 10/12/23 18:47 63 10/12/23 18:40 69 24 100 10/12/23 16:21 36.5 C 65 18 123/78 98 O2 Del Method O2 Flow Rate 10/12/23 21:30 Nasal Cannula 3 10/12/23 21:10 10/12/23 21:01 Nasal Cannula 3 10/12/23 20:36 10/12/23 20:36 Nasal Cannula 2 10/12/23 20:24 Nasal Cannula 2 10/12/23 20:00 Nasal Cannula 2 10/12/23 19:30 Nasal Cannula 2 10/12/23 18:47 10/12/23 18:40 Nasal Cannula 2 10/12/23 16:21 Nasal Cannula 3 Diagnostic Findings Laboratory Results WBC 14.09 K/ul (4.8-10.8) H 10/12/23 16:38 RBC 2.65 M/uL (4.20-5.40) L 10/12/23 16:38 Hgb 7.6 g/dl (12.0-16.0) L 10/12/23 16:38 Hct 25.6 % (37.0-47.0) L 10/12/23 16:38 MCV 96.6 fL (80.0-100.0) 10/12/23 16:38 MCH 28.7 pg (25.0-34.0) 10/12/23 16:38 MCHC 29.7 g/dL (32.0-36.0) L 10/12/23 16:38 RDW Std Deviation 60.0 fL (36.4-46.3) H 10/12/23 16:38 RDW Coeff of [place] 17.3 % (11.5-14.5) H 10/12/23 16:38 Plt Count 379 K/uL (130-400) 10/12/23 16:38 MPV 8.8 fL (9.4-12.4) L 10/12/23 16:38 Immature Gran % (Auto) 3.8 % 10/12/23 16:38 Neut % (Auto) 64.1 % 10/12/23 16:38 Lymph % (Auto) 18.3 % 10/12/23 16:38 [place] % (Auto) 10.1 % 10/12/23 16:38 Eos % (Auto) 3.3 % 10/12/23 16:38 Baso % (Auto) 0.4 % 10/12/23 16:38 Neut # (Auto) 9.03 K/uL (1.40-6.50) H 10/12/23 16:38 Lymph # (Auto) 2.58 K/uL (1.20-3.40) 10/12/23 16:38 [place] # (Auto) 1.43 K/uL (0.11-0.59) H 10/12/23 16:38 Eos # (Auto) 0.46 K/uL (0.00-0.50) 10/12/23 16:38 Baso # (Auto) 0.06 K/uL (0.00-0.20) 10/12/23 16:38 Immature Gran # (Auto) 0.53 K/uL (0.01-0.20) H 10/12/23 16:38 Polychromasia 1+ 10/12/23 16:38 PT 12.8 Seconds (9.0-12.0) H 10/12/23 16:38 INR 1.2 (0.9-1.1) H 10/12/23 16:38 APTT 37 Seconds (21-31) H 10/12/23 16:38 PTT Ratio 1.3 10/12/23 16:38 Sodium 138 mmol/L (136-145) 10/12/23 16:38 Potassium 4.2 mmol/L (3.5-5.1) 10/12/23 16:38 Chloride 105 mmol/L (98-107) 10/12/23 16:38 Carbon Dioxide 25 mmol/L (21-32) 10/12/23 16:38 Anion Gap 8 (3-11) 10/12/23 16:38 BUN 41 mg/dl (6-23) H 10/12/23 16:38 Creatinine 2.06 mg/dl (0.6-1.2) H 10/12/23 16:38 Est Cr Clr Drug Dosing Not Reportable 10/12/23 16:38 Est GFR ( Amer) 25.5 ml/min 10/12/23 16:38 Est GFR (Non-Af Amer) 22.0 ml/min 10/12/23 16:38 BUN/Creatinine Ratio 19.9 (10-20) 10/12/23 16:38 Glucose 105 mg/dl (70-99(Fasting)) H 10/12/23 16:38 Calcium 8.8 mg/dl (8.6-10.3) 10/12/23 16:38 Total Bilirubin 0.2 mg/dl (0.2-1.0) 10/12/23 16:38 AST 11 U/L (13-39) L 10/12/23 16:38 ALT 5 U/L (7-52) L 10/12/23 16:38 Alkaline Phosphatase 69 U/L (34-104) 10/12/23 16:38 Troponin I High Sens 8.8 pg/ml (0-14) 10/12/23 16:38 Total Protein 7.2 gm/dl (6.0-8.3) 10/12/23 16:38 Albumin 3.6 gm/dl (3.4-5.0) 10/12/23 16:38 Globulin 3.6 gm/dl (2.5-4.0) 10/12/23 16:38 Albumin/Globulin Ratio 1.0 (0.9-2) 10/12/23 16:38 Procalcitonin 0.10 ng/ml (0-0.5) 10/12/23 16:38 Urine Color Yellow 10/12/23 16:38 Urine Appearance Turbid (Clear) A 10/12/23 16:38 Urine pH 5.5 (4.5-7.5) 10/12/23 16:38 Ur Specific [place] 1.008 (1.000-1.030) 10/12/23 16:38 Urine Protein 1+ (Negative) H 10/12/23 16:38 Urine Glucose (UA) Negative (Negative) 10/12/23 16:38 Urine Ketones Negative (Negative) 10/12/23 16:38 Urine Blood 3+ (Negative) H 10/12/23 16:38 Urine Nitrite Negative (Negative) 10/12/23 16:38 Urine Bilirubin Negative (Negative) 10/12/23 16:38 Urine Urobilinogen Negative (Negative) 10/12/23 16:38 Ur Leukocyte Esterase 3+ (Negative) H 10/12/23 16:38 Urine WBC (Auto) >50 /hpf (0-5) H 10/12/23 16:38 Urine RBC (Auto) >20 /hpf (0-2) H 10/12/23 16:38 U Hyaline Cast (Auto) 3-5 /lpf (0-2) H 10/12/23 16:38 U Epithel Cells (Auto) 0-2 /hpf (0-2) 10/12/23 16:38 Urine Bacteria (Auto) None Seen (None Seen) 10/12/23 16:38 Impressions Chest X-Ray 10/12/23 16:28 XR chest 1V portable HISTORY: 83 years-old Female lightheadedness COMPARISON: 08/28/2023 TECHNIQUE: PA view of the chest FINDINGS: Cardiac silhouette is enlarged. Pulmonary vascular congestion with interstitial coarsening. Chronic blunting of the right costophrenic angle. Small left pleural effusion with mild bibasilar opacities. No pneumothorax. Degenerative changes of the shoulders and spine. IMPRESSION: 1. Cardiomegaly with unchanged pulmonary vascular congestion and interstitial coarsening suggestive of pulmonary edema. 2. Small left pleural effusion with persistent left basilar opacities. ACT 112: Negative or not required by law. The above report was generated using voice recognition software. It may contain grammatical, syntax or spelling errors. Electronically signed by: Stephen Rapp M.D. 10/12/2023 5:[address] 10/12/23 18:41 Exam(s): CT HEAD Without Contrast EXAM: CT Head Without Intravenous Contrast CLINICAL HISTORY: Reason for exam: Dizzy. TECHNIQUE: Axial computed tomography images of the head/brain without intravenous contrast. CTDI is 52.29 mGy and DLP is 899.15 mGy-cm. Automated exposure control was utilized for the study. A dose lowering technique was utilized adhering to the principles of ALARA. COMPARISON: Head CT 07/27/2023 FINDINGS: Brain: No hemorrhage, extra-axial fluid collection, mass effect, or edema. Ventricles: Unremarkable. Bones/joints: Unremarkable. No fracture. Soft tissues: Unremarkable. Sinuses: No acute sinusitis. Mastoid air cells: Unremarkable as visualized. IMPRESSION: 1. No acute intracranial abnormality. Electronically signed by: Martín Emerson MD 10/12/23 20:34 PM ECG Additional Comments: ECG. Sinus rhythm with first-degree AV block with a rate of 67. No significant change was found. Code Status & VTE Plan VTE Prophylaxis Plan VTE Prophylaxis will be ordered: Yes
[2023-10-12] MEDS ORDERED: NITROGLYCERIN SL 0.4 MG/TAB TAB SL PRN (23:51)
[2023-10-12] MEDS ORDERED: ALBUT/IPRATROP 3MG/0.5MG NEB 3 ML VIAL INH PRN (23:51)
[2023-10-12] MEDS ORDERED: ALBUTEROL HFA 8 GM INHALER INH PRN (23:51)
[2023-10-12] MEDS ORDERED: POLYETHYLENE (MIRALAX) 17 GM PACK PO PRN (23:51)
[2023-10-13] MEDS: SODIUM CHLORIDE 0.9% 1,000 ML IV SCH (00:07)
--- NOTE | 2023-10-13 00:12 | Emergency Department Note ---
Impression & Plan Acute UTI ADMIT ED Provider Note HPI: History obtained from patient. The patient is a 83-year-old female with history of COPD, on 3 L nasal cannula oxygen at baseline, history of paroxysmal atrial fibrillation currently on anticoagulation, hypertension, hyperlipidemia, chronic kidney disease, presents the emergency department with a chief complaint of hypotension and lightheadedness. Patient states that she felt this way today and when she was assessed by her home health nurse she was noted to have hypotension in the 90s and therefore was recommended to come into the ER by EMS for further assessment. Patient denies any fever/chills, denies any abdominal pain. Patient denies any recent hematemesis or rectal bleeding. On my initial assessment here in the ED the patient is stable on her 3 L nasal cannula oxygen at baseline, blood pressure stable, patient is not tachycardic, patient is afebrile on arrival. ROS: - Per HPI Differential Diagnosis: Sepsis, urinary tract infection, GI bleed, dehydration/acute kidney injury, stroke, vertigo, amongst other potential pathologies. *Outpatient medications and allergy history reviewed. PE: General: Alert HEENT: Normocephalic, trachea midline Eyes: Extraocular eye movement is intact, no scleral erythema Pulmonary: Clear to auscultation bilaterally, no wheezing Cardio: Regular rate and rhythm GI: Abdomen is soft to palpation, ostomy bag in place with appropriate drainage, no surrounding erythema : No suprapubic tenderness MSK: No evidence of trauma or malformation of the extremities, no edema Skin: No evidence of rash Neuro: Alert, no focal deficits Psychiatric: Cooperative INDEPENDENT INTERPRETATIONS: property assessment monitor: (As interpreted by myself): - An order was placed for continuous cardiac monitoring - Patient was noted to be in sinus rhythm with a rate of 95 EKG: (As interpreted by myself): Rate: 67 Rhythm: Sinus rhythm Intervals: MA interval 262 ms, otherwise within normal limits ST changes: No ST elevation Time: 1644 Chest x-ray: (As interpreted by myself): Left-sided pleural effusion Interventions provided in ED: -IV fluid bolus, IV ceftriaxone Medical Decision Making: IV was established and lab work obtained, patient was placed on surveillance system monitor. Lab work shows a leukocytosis of 14.09, hemoglobin is 7.6 which is slightly lower than the patient's baseline, platelet count is normal. CMP does not show any critical findings, creatinine is elevated above baseline at 2.06, BUN is elevated at 41, troponin is negative. Procalcitonin is low. Urinalysis is suggestive of possible infection with 3+ leukocyte esterase, significant pyuria, sample does not appear to be contaminated. Will send for culture and the patient was treated with IV ceftriaxone. CT imaging of the head does not show any evidence of any acute intracranial process in regards to the patient's lightheadedness. Patient's blood pressure has been stable here in the ED. I discussed all the above findings with the patient, given her comorbidities and hypotension today I do feel that she would benefit from admission with initiation of IV antibiotics for UTI, leukocytosis, as well as anemia that is beyond baseline now below 8.0. Patient has not had any recent GI bleeding. Patient is in agreement for admission. Case was discussed with the on-call hospitalist, Dr. Crouch, and the patient was placed for admission in stable condition. Consultants/Discussions held with other healthcare providers: -Hospitalist, Dr. Crouch Disposition discussion held by myself with: -Patient Diagnosis: 1. UTI, acute 2. Leukocytosis, acute 3. Acute kidney injury on chronic kidney disease 4. Anemia, acute on chronic Disposition: Admission Drew Rodriguez DO Emergency Medicine Past Med/Surg History Medical History FRANCIS (obstructive sleep apnea) Osteoarthritis Chronic back pain Diverticular disease Skin cancer of nose 1970s--unsure which kind, removed in office On anticoagulant therapy xarelto daily On home oxygen therapy 4L N/C PRN PVD (peripheral vascular disease) PAF (paroxysmal atrial fibrillation) on xarelto/flecainide--follows with Dr. Savage Depression Macular degeneration Osteoporosis CKD (chronic kidney disease), stage III HTN (hypertension) HLD (hyperlipidemia) Multiple pulmonary nodules Tobacco dependence due to cigarettes 5 per day Chronic bronchitis COPD (chronic obstructive pulmonary disease) inhaler daily/prn, nebulizer daily/prn; continuous oxygen 3L Colostomy in place Diverticulitis Surgical History History of appendectomy taken out during resection of bowel History of colonoscopy History of tooth extraction History of cataract extraction with lens replacement bilateral History of tonsillectomy History of tubal ligation History of resection of large bowel (~10/2018) perforated bowel d/t diverticulitis History of creation of ostomy 10/2018 Family History Father Pancreatic cancer Mother Stroke Other No family history of adverse response to anesthesia Social History Smoking Status: Current every day smoker Tobacco Type: Cigarettes Age Started Using Tobacco: 22; Cigarettes Per Day: 3; Second Hand Exposure: Yes (hx growing up); Do You Dip or Chew Tobacco: No; Hx Alcohol Use: No Hx Substance Use: No Preferred Language: Latvian Communication Ability: Effective Cigarette Maker Required: No Beliefs That Will Affect Care: None marital status: / Current Living Situation: Alone Current Living Situation Comment: Mobile home, [address] Feels Safe at Home: Yes Assistive Devices: Oxygen - Continuous Allergies Allergies Allergy/AdvReac Type Severity Reaction Status Date / Time amoxicillin Allergy Intermediate Rash Verified 10/12/23 20:55 cephalexin [From Keflex] Allergy Intermediate Rash Verified 10/12/23 20:55 cilostazol [From Pletal] Allergy Intermediate Rash Verified 10/12/23 20:55 ciprofloxacin [From Cipro] Allergy Intermediate Rash Verified 10/12/23 20:55 diltiazem Allergy Intermediate Rash Verified 10/12/23 20:55 felodipine Allergy Intermediate Rash Verified 10/12/23 20:55 meloxicam Allergy Intermediate Rash Verified 10/12/23 20:55 sulfamethoxazole Allergy Intermediate Rash Verified 10/12/23 20:55 [From Bactrim] trimethoprim [From Bactrim] Allergy Intermediate Rash Verified 10/12/23 20:55 Home Meds Home Medications Medication Instructions Recorded Confirmed calcium carbonate 500 mg-vitamin 1 tab PO QPM 03/10/19 10/12/23 D3 10 mcg (400 unit) tablet (Calcium 500 + D) escitalopram oxalate 10 mg tablet 10 mg PO QAM 03/10/19 10/12/23 (Lexapro) ferrous sulfate 325 mg (65 mg 325 mg PO QAM 03/10/19 10/12/23 iron) tablet vit C 250 mg-vit E 90 mg-zinc 40 1 tab PO QAM 03/10/19 10/12/23 mg-copper 1 [id number] capsule (PreserVision AREDS-2) ascorbic acid (vitamin C) 500 mg 500 mg PO QAM 12/08/20 10/12/23 tablet (Vitamin C) cyclosporine 0.05 % eye drops in a 1 drp OPB BID 12/08/20 10/12/23 dropperette (Restasis) rivaroxaban 15 mg tablet (Xarelto) 15 mg PO QPM 11/05/21 10/12/23 mesalamine 1.2 gram tablet,delayed 3.6 g PO QAM 03/14/23 10/12/23 release acetaminophen 325 mg tablet 325 mg PO Q6H PRN PAIN/FEVER 07/25/23 10/12/23 (Tylenol) ipratropium 0.5 mg-albuterol 3 mg 3 ml inhalation Q4H PRN Wheezing 07/25/23 10/12/23 (2.5 mg base)/3 mL nebulization soln omega-3 fatty acids 500 mg capsule 500 mg PO QAM 07/25/23 10/12/23 solifenacin 5 mg tablet 5 mg PO QAM 07/25/23 10/12/23 furosemide 20 mg tablet 20 mg PO QAM 08/28/23 10/12/23 albuterol sulfate 90 mcg/actuation 1 inh inhalation DIRECTED PRN 10/12/23 10/12/23 aerosol inhaler (ProAir HFA) Shortness Of Breath denosumab 60 mg/mL subcutaneous 60 mg subcut .[id number] 10/12/23 10/12/23 syringe (Prolia) verapamil 120 mg tablet,extended 120 mg PO QAM 10/12/23 10/12/23 release Previous Rx's Medication Instructions Recorded guaifenesin 600 mg tablet, 600 mg PO BID #60 tabs 07/16/20 extended release 12 hr (Mucinex) Portable Oxygen E0431 #1 ea 03/25/21 Auto Titrating CPAP #1 ea 02/03/23 CPAP Supplies #1 ea 02/03/23 budesonide 0.25 mg/2 mL suspension 0.25 mg (2 mL) inhalation BID #60 02/03/23 for nebulization mL umeclidinium 62.5 mcg-vilanterol 1 inh inhalation QAM #60 ea 02/03/23 25 mcg/actuation powdr for inhalation (Anoro Ellipta) lisinopril 10 mg tablet 10 mg PO QAM #30 tabs 08/05/23 pantoprazole 40 mg tablet,delayed 40 mg PO QAM #30 tabs 08/05/23 release Results & Data (ED) Vital Signs Vital Signs - 24 hr 10/12/23 16:21 10/12/23 18:40 10/12/23 18:47 Temperature 36.5 C Temperature Source Temporal Artery Scan Pulse Rate 65 69 63 Pulse Rate [Left Apical] Pulse Rate from SpO2 Sensor Respiratory Rate 18 24 Respiratory Effort / Characteristics Non-Labored Spontaneous Respiratory Depth Normal Blood Pressure 123/78 Blood Pressure [Right Arm] Blood Pressure Mean 93 Blood Pressure Mean [Right Arm] Pulse Oximetry 98 100 Oxygen Delivery Method Nasal Cannula Nasal Cannula Oxygen Flow Rate 3 2 Sepsis Recent Fever Within 48 Hours No Sepsis New/Unexplained Change in Mental Status No Sepsis Action Taken by Nursing No Action Required 10/12/23 19:30 10/12/23 20:00 10/12/23 20:24 Temperature Temperature Source Pulse Rate 65 66 Pulse Rate [Left Apical] 68 Pulse Rate from SpO2 Sensor Respiratory Rate 26 H 26 H 24 Respiratory Effort / Characteristics Non-Labored Respiratory Depth Normal Blood Pressure Blood Pressure [Right Arm] 144/56 H Blood Pressure Mean Blood Pressure Mean [Right Arm] 85 Pulse Oximetry 100 100 100 Oxygen Delivery Method Nasal Cannula Nasal Cannula Nasal Cannula Oxygen Flow Rate 2 2 2 Sepsis Recent Fever Within 48 Hours Sepsis New/Unexplained Change in Mental Status Sepsis Action Taken by Nursing 10/12/23 20:36 10/12/23 20:36 10/12/23 21:01 Temperature Temperature Source Pulse Rate 70 69 Pulse Rate [Left Apical] Pulse Rate from SpO2 Sensor Respiratory Rate 28 H 26 H Respiratory Effort / Characteristics Respiratory Depth Blood Pressure 156/59 H 156/59 H 150/57 H Blood Pressure [Right Arm] Blood Pressure Mean 91 118 88 Blood Pressure Mean [Right Arm] Pulse Oximetry 96 100 Oxygen Delivery Method Nasal Cannula Nasal Cannula Oxygen Flow Rate 2 3 Sepsis Recent Fever Within 48 Hours Sepsis New/Unexplained Change in Mental Status Sepsis Action Taken by Nursing 10/12/23 21:10 10/12/23 21:30 10/12/23 22:00 Temperature Temperature Source Pulse Rate 73 67 74 Pulse Rate [Left Apical] Pulse Rate from SpO2 Sensor 74 Respiratory Rate 24 24 Respiratory Effort / Characteristics Respiratory Depth Blood Pressure 146/59 H 136/87 Blood Pressure [Right Arm] Blood Pressure Mean 88 103 Blood Pressure Mean [Right Arm] Pulse Oximetry 100 100 Oxygen Delivery Method Nasal Cannula Oxygen Flow Rate 3 Sepsis Recent Fever Within 48 Hours Sepsis New/Unexplained Change in Mental Status Sepsis Action Taken by Nursing 10/12/23 22:10 10/12/23 22:30 Temperature Temperature Source Pulse Rate 68 69 Pulse Rate [Left Apical] Pulse Rate from SpO2 Sensor Respiratory Rate 26 H 25 H Respiratory Effort / Characteristics Respiratory Depth Blood Pressure 144/61 H Blood Pressure [Right Arm] Blood Pressure Mean 88 Blood Pressure Mean [Right Arm] Pulse Oximetry 96 99 Oxygen Delivery Method Nasal Cannula Nasal Cannula Oxygen Flow Rate 3 3 Sepsis Recent Fever Within 48 Hours Sepsis New/Unexplained Change in Mental Status Sepsis Action Taken by Nursing Laboratory Data 10/12/23 16:38 10/12/23 16:38 Lab Results 10/12/23 Range/Units 16:38 WBC 14.09 H (4.8-10.8) K/ul RBC 2.65 L (4.20-5.40) M/uL Hgb 7.6 L (12.0-16.0) g/dl Hct 25.6 L (37.0-47.0) % MCV 96.6 (80.0-100.0) fL MCH 28.7 (25.0-34.0) pg MCHC 29.7 L (32.0-36.0) g/dL RDW Std Deviation 60.0 H (36.4-46.3) fL RDW Coeff of Lynn 17.3 H (11.5-14.5) % Plt Count 379 (130-400) K/uL MPV 8.8 L (9.4-12.4) fL Immature Gran % (Auto) 3.8 % Neut % (Auto) 64.1 % Lymph % (Auto) 18.3 % [place] % (Auto) 10.1 % Eos % (Auto) 3.3 % Baso % (Auto) 0.4 % Neut # (Auto) 9.03 H (1.40-6.50) K/uL Lymph # (Auto) 2.58 (1.20-3.40) K/uL [place] # (Auto) 1.43 H (0.11-0.59) K/uL Eos # (Auto) 0.46 (0.00-0.50) K/uL Baso # (Auto) 0.06 (0.00-0.20) K/uL Immature Gran # (Auto) 0.53 H (0.01-0.20) K/uL Polychromasia 1+ PT 12.8 H (9.0-12.0) Seconds INR 1.2 H (0.9-1.1) APTT 37 H (21-31) Seconds PTT Ratio 1.3 Sodium 138 (136-145) mmol/L Potassium 4.2 (3.5-5.1) mmol/L Chloride 105 (98-107) mmol/L Carbon Dioxide 25 (21-32) mmol/L Anion Gap 8 (3-11) BUN 41 H (6-23) mg/dl Creatinine 2.06 H (0.6-1.2) mg/dl Est Cr Clr Drug Dosing Not Reportable Est GFR ( Amer) 25.5 ml/min Est GFR (Non-Af Amer) 22.0 ml/min BUN/Creatinine Ratio 19.9 (10-20) Glucose 105 H (70-99(Fasting)) mg/dl Calcium 8.8 (8.6-10.3) mg/dl Total Bilirubin 0.2 (0.2-1.0) mg/dl AST 11 L (13-39) U/L ALT 5 L (7-52) U/L Alkaline Phosphatase 69 (34-104) U/L Troponin I High Sens 8.8 (0-14) pg/ml Total Protein 7.2 (6.0-8.3) gm/dl Albumin 3.6 (3.4-5.0) gm/dl Globulin 3.6 (2.5-4.0) gm/dl Albumin/Globulin Ratio 1.0 (0.9-2) Procalcitonin 0.10 (0-0.5) ng/ml Urine Color Yellow Urine Appearance Turbid A (Clear) Urine pH 5.5 (4.5-7.5) Ur Specific [place] 1.008 (1.000-1.030) Urine Protein 1+ H (Negative) Urine Glucose (UA) Negative (Negative) Urine Ketones Negative (Negative) Urine Blood 3+ H (Negative) Urine Nitrite Negative (Negative) Urine Bilirubin Negative (Negative) Urine Urobilinogen Negative (Negative) Ur Leukocyte Esterase 3+ H (Negative) Urine WBC (Auto) >50 H (0-5) /hpf Urine RBC (Auto) >20 H (0-2) /hpf U Hyaline Cast (Auto) 3-5 H (0-2) /lpf U Epithel Cells (Auto) 0-2 (0-2) /hpf Urine Bacteria (Auto) None Seen (None Seen) Administered Medications Sodium Chloride (Nss) 1,000 mls @ 100 mls/hr IV .Q10H [place] Stop: 10/13/23 19:50 Last Admin: 10/13/23 00:07 Dose: 100 mls/hr Documented By: KATHY Discontinued Medications Sodium Chloride (Nss) 500 mls @ 999 mls/hr IV .Q31M [place] Stop: 10/12/23 17:00 Last Infusion: 10/12/23 19:30 Dose: Infused Documented By: [facility] Admin: 10/12/23 17:32 Dose: 999 mls/hr Documented By: SYLVESTER Ceftriaxone Sodium 1,000 mg/ (Dextrose) 50 mls @ 100 mls/hr IV NOW STA; Protocol Stop: 10/12/23 20:44 Last Infusion: 10/12/23 23:00 Dose: Infused Documented By: [facility] Admin: 10/12/23 22:06 Dose: 100 mls/hr Documented By: [facility] Imaging Data Radiologist's Impression: Chest X-Ray 10/12/23 16:28 XR chest 1V portable HISTORY: 83 years-old Female lightheadedness COMPARISON: 08/28/2023 TECHNIQUE: PA view of the chest FINDINGS: Cardiac silhouette is enlarged. Pulmonary vascular congestion with interstitial coarsening. Chronic blunting of the right costophrenic angle. Small left pleural effusion with mild bibasilar opacities. No pneumothorax. Degenerative changes of the shoulders and spine. IMPRESSION: 1. Cardiomegaly with unchanged pulmonary vascular congestion and interstitial coarsening suggestive of pulmonary edema. 2. Small left pleural effusion with persistent left basilar opacities. ACT 112: Negative or not required by law. The above report was generated using voice recognition software. It may contain grammatical, syntax or spelling errors. Electronically signed by: Stephen Rapp M.D. 10/12/2023 5:[address] 10/12/23 18:41 Exam(s): CT HEAD Without Contrast EXAM: CT Head Without Intravenous Contrast CLINICAL HISTORY: Reason for exam: Dizzy. TECHNIQUE: Axial computed tomography images of the head/brain without intravenous contrast. CTDI is 52.29 mGy and DLP is 899.15 mGy-cm. Automated exposure control was utilized for the study. A dose lowering technique was utilized adhering to the principles of ALARA. COMPARISON: Head CT 07/27/2023 FINDINGS: Brain: No hemorrhage, extra-axial fluid collection, mass effect, or edema. Ventricles: Unremarkable. Bones/joints: Unremarkable. No fracture. Soft tissues: Unremarkable. Sinuses: No acute sinusitis. Mastoid air cells: Unremarkable as visualized. IMPRESSION: 1. No acute intracranial abnormality. Electronically signed by: Martín Emerson MD 10/12/23 20:34 PM Discharge Plan Visit Data Chief Complaint: Weakness Stated Complaint: WEAKNESS ED Provider: Drew Rodriguez Discharge Problem: Acute UTI Patient Disposition: Admitted As Inpatient Discharge Instructions Interventions: ED Discharge Assessment Last Done: 10/12/23 23:19
[2023-10-13] MEDS ORDERED: ARTIFICIAL TEARS OP PRN (02:49)
[2023-10-13 05:58] LABS: Hematocrit (blood only) 22.5 % (37.0-47.0); Hemoglobin 6.6 g/dl (12.0-16.0); Mean Corpuscular Hemoglobin 28.6 pg (25.0-34.0); Mean Corpuscular Hgb Conc 29.3 g/dL (32.0-36.0); Mean Corpuscular Volume 97.4 fL (80.0-100.0); Mean Platelet Volume 8.8 fL (9.4-12.4); Platelet Count 299 K/uL (130-400); RDW Coefficient of Variation 17.2 % (11.5-14.5); RDW Standard Deviation 60.3 fL (36.4-46.3); Red Blood Count 2.31 M/uL (4.20-5.40); White Blood Count 9.72 K/ul (4.8-10.8)
[2023-10-13 06:07] LABS: BUN Creatinine Ratio 19.2 (10-20); Calcium 8.5 mg/dl (8.6-10.3); Est GFR (African American) 31.8 ml/min; Est GFR (Non-African American) 27.4 ml/min; Magnesium 2.1 mg/dl (1.7-2.4)
[2023-10-13 06:15] LABS: Basophils # (auto) 0.03 K/uL (0.00-0.20); Basophils % (auto) 0.3 %; Eosinophils # (auto) 0.44 K/uL (0.00-0.50); Eosinophils % (auto) 4.5 %; Immature Granulocytes # (auto) 0.25 K/uL (0.01-0.20); Immature Granulocytes % (auto) 2.6 %; Lymphocytes # (auto) 1.68 K/uL (1.20-3.40); Lymphocytes % (auto) 17.3 %; Monocytes # (auto) 1.18 K/uL (0.11-0.59); Monocytes % (auto) 12.1 %; Neutrophils # (auto) 6.14 K/uL (1.40-6.50); Neutrophils % (auto) 63.2 %; Polychromasia 1+
[2023-10-13 06:33] LABS: Folate (Folic Acid),Ser orPlas 15.46 ng/ml (>5.38)
[2023-10-13 06:35] LABS: Hematocrit (blood only) 21.4 % (37.0-47.0); Hemoglobin 6.5 g/dl (12.0-16.0)
[2023-10-13] MEDS ORDERED: SODIUM CHLORIDE 0.9% 250 ML IV PRN (06:43)
[2023-10-13] MEDS: BUDESONIDE 0.25 MG/2 ML VIAL (PULMICORT) INH SCH (07:10)
[2023-10-13] MEDS: ACETAMINOPHEN 325 MG TAB PO ONE (09:06)
[2023-10-13] MEDS: ASCORBIC ACID 500 MG TAB PO SCH (09:07)
[2023-10-13] MEDS: PANTOprazole 40 MG TAB PO SCH (09:07)
[2023-10-13] MEDS: OXYBUTYNIN CHLORIDE XL 5 MG TABCR PO SCH (09:07)
[2023-10-13] MEDS: VERAPAMIL HCL 120 MG TABCR PO SCH (09:07)
[2023-10-13] MEDS: ESCITALOPRAM OXALATE 10 MG TAB PO SCH (09:07)
[2023-10-13] MEDS: UMECLIDINIUM/VILANTEROL 62.5/25MCG 7 PUFFS/INHALER INH SCH (09:07)
[2023-10-13] MEDS: FERROUS SULFATE 325 MG TAB PO SCH (09:07)
[2023-10-13] MEDS: guaiFENesin 600 MG TABCR PO SCH (09:07)
[2023-10-13] MEDS: CEROVITE ADV FORMULA TAB PO SCH (09:07)
[2023-10-13 09:28] LABS: Ferritin 25.9 ng/ml (8-388)
--- NOTE | 2023-10-13 10:27 | Gastrointestinal Consultation ---
Date of Consultation October 13, 2023 Assessment & Plan (1) Anemia: Patient is not having obvious GI bleeding at this time however it is concerning given the sudden drop in hgb and history of gastric ulcers. unfortunately she was given a breakfast this morning. GI ros unremarkable. - increase protonix to 40mg IV BID. - will make NPO at this time to monitor in case an endoscopic procedure does need done. unfortunately, since she already ate breakfast today, we cannot perform EGD at this time. - follow hgb/hct and transfuse as needed. Supervising Physician Co-Signing Physician Notes Agree with BINDU Vickers as above Interviewed and examined patient and agree with above Abd: Soft, NT, ND, +BS Continue current therapy and supportive care Patient was not kept NPO If H/H declines over the weekend may need EGD NPO after midnight Continue Protonix [address] Wilcox is covering over the weekend. History of Present Illness Reason for Consultation: acute on chronic anemia, history of gastric ulcer on anticoagulation Requesting Physician: Yessenia Fam MD Attending Physician: Yessenia Fam MD History of Present Illness Patient is an 83 year old female with history of COPD, on 3 L nasal cannula oxygen at baseline, history of paroxysmal atrial fibrillation currently on anticoagulation, hypertension, hyperlipidemia, chronic kidney disease, presents the emergency department with a chief complaint of hypotension and lightheadedness. she was admitted with LOPEZ/CKD and UTI. She denies any nausea, vomiting, abdominal pain, heartburn, change in bowels, melena or brb per ostomy. She had a colostomy done in 2019 due to diverticulitis. she tells me that her ostomy has not had changes and no increased frequency. stools are a dark brown. Patient tolerated breakfast this morning. she is currently being transfused. 10/12/23 hgb 7.6. 10/13/23 hgb 6.5 (previous was 6.6) colonoscopy 07/31/23 diverticulosis of descending colon, colon polyp, pseudopolyposis in transverse and ascending colon. EGD 07/31/23 schatzkis ring, small hiatal hernia, non bleeding gastric ulcers. Allergies Allergy/AdvReac Type Severity Reaction Status Date / Time amoxicillin Allergy Intermediate Rash Verified 10/12/23 20:55 cephalexin [From Keflex] Allergy Intermediate Rash Verified 10/12/23 20:55 cilostazol [From Pletal] Allergy Intermediate Rash Verified 10/12/23 20:55 ciprofloxacin [From Cipro] Allergy Intermediate Rash Verified 10/12/23 20:55 diltiazem Allergy Intermediate Rash Verified 10/12/23 20:55 felodipine Allergy Intermediate Rash Verified 10/12/23 20:55 meloxicam Allergy Intermediate Rash Verified 10/12/23 20:55 sulfamethoxazole Allergy Intermediate Rash Verified 10/12/23 20:55 [From Bactrim] trimethoprim [From Bactrim] Allergy Intermediate Rash Verified 10/12/23 20:55 Home Medications Medication Instructions Recorded Confirmed Type calcium carbonate 500 mg-vitamin 1 tab PO QPM 03/10/19 10/12/23 History D3 10 mcg (400 unit) tablet (Calcium 500 + D) escitalopram oxalate 10 mg tablet 10 mg PO QAM 03/10/19 10/12/23 History (Lexapro) ferrous sulfate 325 mg (65 mg 325 mg PO QAM 03/10/19 10/12/23 History iron) tablet vit C 250 mg-vit E 90 mg-zinc 40 1 tab PO QAM 03/10/19 10/12/23 History mg-copper 1 [id number]-lgarpj capsule (PreserVision AREDS-2) guaifenesin 600 mg tablet, 600 mg PO BID #60 tabs 07/16/20 10/12/23 Rx extended release 12 hr (Mucinex) ascorbic acid (vitamin C) 500 mg 500 mg PO QAM 12/08/20 10/12/23 History tablet (Vitamin C) cyclosporine 0.05 % eye drops in a 1 drp OPB BID 12/08/20 10/12/23 History dropperette (Restasis) Portable Oxygen E0431 #1 ea 03/25/21 08/28/23 Rx rivaroxaban 15 mg tablet (Xarelto) 15 mg PO QPM 11/05/21 10/12/23 History Auto Titrating CPAP #1 ea 02/03/23 08/28/23 Rx CPAP Supplies #1 ea 02/03/23 08/28/23 Rx budesonide 0.25 mg/2 mL suspension 0.25 mg (2 mL) inhalation BID #60 02/03/23 10/12/23 Rx for nebulization mL umeclidinium 62.5 mcg-vilanterol 1 inh inhalation QAM #60 ea 02/03/23 10/12/23 Rx 25 mcg/actuation powdr for inhalation (Anoro Ellipta) mesalamine 1.2 gram tablet,delayed 3.6 g PO QAM 03/14/23 10/12/23 History release acetaminophen 325 mg tablet 325 mg PO Q6H PRN PAIN/FEVER 07/25/23 10/12/23 History (Tylenol) ipratropium 0.5 mg-albuterol 3 mg 3 ml inhalation Q4H PRN Wheezing 07/25/23 10/12/23 History (2.5 mg base)/3 mL nebulization soln omega-3 fatty acids 500 mg capsule 500 mg PO QAM 07/25/23 10/12/23 History solifenacin 5 mg tablet 5 mg PO QAM 07/25/23 10/12/23 History lisinopril 10 mg tablet 10 mg PO QAM #30 tabs 08/05/23 10/12/23 Rx pantoprazole 40 mg tablet,delayed 40 mg PO QAM #30 tabs 08/05/23 10/12/23 Rx release furosemide 20 mg tablet 20 mg PO QAM 08/28/23 10/12/23 History albuterol sulfate 90 mcg/actuation 1 inh inhalation DIRECTED PRN 10/12/23 10/12/23 History aerosol inhaler (ProAir HFA) Shortness Of Breath denosumab 60 mg/mL subcutaneous 60 mg subcut .[id number] 10/12/23 10/12/23 History syringe (Prolia) verapamil 120 mg tablet,extended 120 mg PO QAM 10/12/23 10/12/23 History release Patient History Medical History FRANCIS (obstructive sleep apnea) Osteoarthritis Chronic back pain Diverticular disease Skin cancer of nose 1970s--unsure which kind, removed in office On anticoagulant therapy xarelto daily On home oxygen therapy 4L N/C PRN PVD (peripheral vascular disease) PAF (paroxysmal atrial fibrillation) on xarelto/flecainide--follows with Dr. Savage Depression Macular degeneration Osteoporosis CKD (chronic kidney disease), stage III HTN (hypertension) HLD (hyperlipidemia) Multiple pulmonary nodules Tobacco dependence due to cigarettes 5 per day Chronic bronchitis COPD (chronic obstructive pulmonary disease) inhaler daily/prn, nebulizer daily/prn; continuous oxygen 3L Colostomy in place Diverticulitis Surgical History History of appendectomy taken out during resection of bowel History of colonoscopy History of tooth extraction History of cataract extraction with lens replacement bilateral History of tonsillectomy History of tubal ligation History of resection of large bowel (~10/2018) perforated bowel d/t diverticulitis History of creation of ostomy 10/2018 Family History Father Pancreatic cancer Mother Stroke Other No family history of adverse response to anesthesia Social History Smoking Status: Current every day smoker Tobacco Type: Cigarettes Age Started Using Tobacco: 22; Cigarettes Per Day: 1-2 cigarettes per day; Second Hand Exposure: No; Do You Dip or Chew Tobacco: No; Tobacco Cessation Education Requested by Patient: No Hx Alcohol Use: No Hx Substance Use: No Preferred Language: [place] Communication Ability: Effective Test Developer Required: No Beliefs That Will Affect Care: None marital status: / Current Living Situation: Alone Current Living Situation Comment: Lives home alone, family checks in often, and has home health Other Information That Helps Us Care for You: No Feels Safe at Home: Yes Safety Concerns: Feels Safe At This Time Assistive Devices: CPAP, Oxygen - Continuous and Walker Assistive Devices Comment: doesn't use at home Review of Systems Review of Systems: All systems reviewed & are unremarkable except as noted in HPI & below Physical Exam Constitutional: WD/WN, vitals as above Respiratory: normal respiratory effort, lungs clear to auscultation Cardiovascular: RRR, no murmur, no edema Gastrointestinal (Abdomen): normal bowel sounds, soft, nontender, no hepatosplenomegaly ostomy in the LLQ. stool in ostomy is a dark brown. Skin: no rashes, warm and dry Psychiatric: Orientation: alert and oriented x 3 Affect: euthymic affect Results & Data Vital Signs (Past 12 Hours) Vital Signs Temp Pulse Pulse Resp BP BP Pulse Ox 10/13/23 09:17 98.1 F 76 16 133/57 L 10/13/23 09:15 10/13/23 08:54 98.6 F 70 16 133/64 97 10/13/23 08:42 70 10/13/23 08:39 98.8 F 77 18 110/51 L 92 10/13/23 08:21 98.4 F 75 18 123/56 L 93 10/13/23 07:59 98.4 F 73 18 122/57 L 96 10/13/23 07:11 88 16 92 10/13/23 04:05 97.9 F 89 17 137/84 94 10/13/23 03:00 66 10/12/23 23:52 97.9 F 98 H 19 145/63 H 99 10/12/23 23:00 72 21 128/92 100 10/12/23 22:30 69 25 H 144/61 H 99 O2 Del Method O2 Flow Rate 10/13/23 09:17 10/13/23 09:15 Nasal Cannula 3 10/13/23 08:54 10/13/23 08:42 10/13/23 08:39 4 10/13/23 08:21 4 10/13/23 07:59 Nasal Cannula 3 10/13/23 07:11 Nasal Cannula 3 10/13/23 04:05 Nasal Cannula 3 10/13/23 03:00 10/12/23 23:52 Nasal Cannula 3 10/12/23 23:00 Nasal Cannula 3 10/12/23 22:30 Nasal Cannula 3 Coding Level of Care Code 07720 INT INP/OBS CARE 3/75MIN Diagnoses Anemia D64.9 Anemia type: unspecified type (1) Anemia Anemia type: unspecified type Qualified Code(s): D64.9 - Anemia, unspecified
--- NOTE | 2023-10-13 11:22 | Hospitalist Progress Note ---
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 Hb this AM dropped to 6.5, was 7.6 on admission yesterday Baseline Hb 8s Acute on chronic anemia Though patient has no obvious bleeding, considering her history of gastric ulcer from EGD in July 2023, will consult GI. Patient already had breakfast. GI changed PPI to BID Will follow-up GI recommendation Currently getting blood transfusion. Monitor hemoglobin and transfuse as needed to keep above 7. Home xarelto on hold Anemia workup Send hemoocult LOPEZ on CKD stage III Baseline creatinine 1.7 presented with creatinine of 2 Cr is 1.72 today Continue to hold Lasix and lisinopril UTI UA suggestive of UTI Continue ceftriaxone Follow cultures Chronic hypoxic respiratory failure on 3 L oxygen History of COPD Obstructive sleep apnea Currently waiting for CPAP machine Will do CPAP nightly while in the hospital Continue home inhalers History of IBD suspected History of diverticulitis s/p resection On mesalamine Hypertension Holding lisinopril for now as above Verapamil with holding parameters History of A-fib History of heart block s/p pacemaker Xarelto on hold as above GERD On Protonix DVT prophylaxis SCD for now. Xarelto on hold Disposition Med/telemetry Full code I spent a total of 50 minutes coordinating, documenting and providing care for this patient excluding time spent in performance of separately billed services Admission and Anticipated Discharge Date Admission Date: October 12, 2023 Subjective Patient seen and examined. Patient reports lightheadedness that has been going on for few weeks. Reports chronic dry cough Denies any shortness of breath at rest or PND. Reports chronic shortness of breath with exertion. Uses oxygen at 3 L at home Uses 2 pillows to sleep at night. Denies any leg swelling. Denies diarrhea, black stool melena. Denies any obvious bleeding. Denies hematuria, dysuria frequency Physical Exam Constitutional: + well hydrated; no acute distress Eyes: PERRL, conjunctivae normal, anicteric sclerae ENMT: external ear and nose normal, oropharynx normal Respiratory: Normal respiratory, not in respiratory distress Reduced breath sound lung bases Cardiovascular: Rate/Rhythm: regular rate and regular rhythm S1-S2 Gastrointestinal (Abdomen): normal bowel sounds, soft, nontender, no hepatosplenomegaly Ostomy bag in left lower quadrant with dark brown stool Musculoskeletal: No pedal edema Neurologic: PERRL, EOMI, accommodation nl, no face palsy, no dysarthria Psychiatric: A+Ox3, euthymic affect Results & Data Results & Data Vital Signs (Past 12 Hours) Vital Signs Temp Pulse Pulse Resp BP BP Pulse Ox 10/13/23 09:17 36.7 C 76 16 133/57 L 10/13/23 09:15 10/13/23 08:54 37 C 70 16 133/64 97 10/13/23 08:42 70 10/13/23 08:39 37.1 C 77 18 110/51 L 92 10/13/23 08:21 36.9 C 75 18 123/56 L 93 10/13/23 07:59 36.9 C 73 18 122/57 L 96 10/13/23 07:11 88 16 92 10/13/23 04:05 36.6 C 89 17 137/84 94 10/13/23 03:00 66 10/12/23 23:52 36.6 C 98 H 19 145/63 H 99 O2 Del Method O2 Flow Rate 10/13/23 09:17 10/13/23 09:15 Nasal Cannula 3 10/13/23 08:54 10/13/23 08:42 10/13/23 08:39 4 10/13/23 08:21 4 10/13/23 07:59 Nasal Cannula 3 10/13/23 07:11 Nasal Cannula 3 10/13/23 04:05 Nasal Cannula 3 10/13/23 03:00 10/12/23 23:52 Nasal Cannula 3 Laboratory Results Abnormal lab results 10/12/23 10/13/23 10/13/23 Range/Units 16:38 05:31 06:15 WBC 14.09 H (4.8-10.8) K/ul RBC 2.65 L 2.31 L (4.20-5.40) M/uL Hgb 7.6 L 6.6 L* 6.5 L* (12.0-16.0) g/dl Hct 25.6 L 22.5 L 21.4 L (37.0-47.0) % MCHC 29.7 L 29.3 L (32.0-36.0) g/dL RDW Std Deviation 60.0 H 60.3 H (36.4-46.3) fL RDW Coeff of Lynn 17.3 H 17.2 H (11.5-14.5) % MPV 8.8 L 8.8 L (9.4-12.4) fL Neut # (Auto) 9.03 H (1.40-6.50) K/uL Warren # (Auto) 1.43 H 1.18 H (0.11-0.59) K/uL Immature Gran # (Auto) 0.53 H 0.25 H (0.01-0.20) K/uL PT 12.8 H (9.0-12.0) Seconds INR 1.2 H (0.9-1.1) APTT 37 H (21-31) Seconds Chloride 112 H (98-107) mmol/L BUN 41 H 33 H (6-23) mg/dl Creatinine 2.06 H 1.72 H D (0.6-1.2) mg/dl Glucose 105 H (70-99(Fasting)) mg/dl Calcium 8.5 L (8.6-10.3) mg/dl Iron 18 L (35-150) mcg/dl TIBC 242 L (250-450) mcg/dl Transferrin % Sat 7 L (15-50) % AST 11 L (13-39) U/L ALT 5 L (7-52) U/L Urine Appearance Turbid A (Clear) Urine Protein 1+ H (Negative) Urine Blood 3+ H (Negative) Ur Leukocyte Esterase 3+ H (Negative) Urine WBC (Auto) >50 H (0-5) /hpf Urine RBC (Auto) >20 H (0-2) /hpf U Hyaline Cast (Auto) 3-5 H (0-2) /lpf Crossmatch 10/13/23 Range/Units 06:52 WBC (4.8-10.8) K/ul RBC (4.20-5.40) M/uL Hgb (12.0-16.0) g/dl Hct (37.0-47.0) % MCHC (32.0-36.0) g/dL RDW Std Deviation (36.4-46.3) fL RDW Coeff of Lynn (11.5-14.5) % MPV (9.4-12.4) fL Neut # (Auto) (1.40-6.50) K/uL Warren # (Auto) (0.11-0.59) K/uL Immature Gran # (Auto) (0.01-0.20) K/uL PT (9.0-12.0) Seconds INR (0.9-1.1) APTT (21-31) Seconds Chloride (98-107) mmol/L BUN (6-23) mg/dl Creatinine (0.6-1.2) mg/dl Glucose (70-99(Fasting)) mg/dl Calcium (8.6-10.3) mg/dl Iron (35-150) mcg/dl TIBC (250-450) mcg/dl Transferrin % Sat (15-50) % AST (13-39) U/L ALT (7-52) U/L Urine Appearance (Clear) Urine Protein (Negative) Urine Blood (Negative) Ur Leukocyte Esterase (Negative) Urine WBC (Auto) (0-5) /hpf Urine RBC (Auto) (0-2) /hpf U Hyaline Cast (Auto) (0-2) /lpf Crossmatch See Detail
[2023-10-13] MEDS: FUROSEMIDE INJ 20 MG/2 ML VIAL IV ONE (11:37)
[2023-10-13] MEDS: PLASMA-LYTE A 1,000 ML IV SCH (15:00)
--- OUTSIDE RECORDS SUMMARY | 2023-10-13 18:17 | External Medical Summary | Summary of Care ---
Author Name Unknown Organization [facility] Address [address] [place] [address] Phone [phone] Care Team Providers Care Weighmaster Name Role Phone Tameka Hooper MD Primary Care Prov ider Reason for Visit * Reason Onset Date Comments Home Health 10/10/2023 Encounter Details Date Type Department Care Team (Late st Contact Info) Description 10/10/2023 Telephone Family Medicine [address] [phone] Tameka Hooper MD [address] [place], [place] [address] [address] Home Health Allergies Active Allergy Reactions Criticality Noted Date Comments Amoxicillin Rash 02/07/2020 Bactrim Rash 12/15/2011 Ciprofloxacin Rash 12/15/2011 Diltiazem Rash 05/29/2019 Piroxicam Rash 12/15/2011 Cephalexin Rash 12/15/2011 Meloxicam Rash 05/29/2019 Other reaction(s): Other Cilostazol Rash,Unknown 12/15/2011 Sulfamethoxazole High 01/19/2023 Other Reaction(s): Rash Trimethoprim High 01/19/2023 Other Reaction(s): Rash documented as of this encounter (statuses as of 10/10/2023) Medications Medication Sig Dispensed Refills Start Date [...] AREA TWICE A DAY 60 g 5 09/01/2023 Active Additional Information Patient not taking.Reported on 09/15/2023 Acetaminophen 325 MG Oral Tablet (Tylenol) Take 1 Tablet by mouth every 6 hours as needed for Pain, Mild, Fever >38C(100.5F), Pain, Moderate or Pain, Severe. Pt takes 1/2 tab daily 100 Tablet 5 09/01/2023 Active Albuterol Sulfate HFA 108 (90 Base) MCG/ACT Inhalation Aerosol SolutionIndications :COPD, moderate (HCC) INHALE 2 PUFFS BY MOUTH NEEDED FOR COUGH, SHORTNESS OF BREATH OR WHEEZING. 18 g 0 09/13/2023 Active Anoro Ellipta 62.5-25 MCG/ACT Inhalation Aerosol Powder Breath ActivatedIndication s:COPD, moderate (HCC) Inhale 1 Puff by mouth daily. 1 puff daily 30 Each 0 09/13/2023 Active Budesonide 0.25 MG/2ML Inhalation Suspension (Pulmicort)Indicati ons:COPD, moderate (HCC) INHALE CONTENTS OF ONE VIAL (2ML) TWICE DAILY 60 mL 4 09/13/2023 Active Additional Information Patient taking differently: INHALE CONTENTS OF ONE VIAL (2ML) TWICE DAILY09/15/23: was only using once a day, will start using twice a day as ordered., Informant: Patient, Reported on 09/15/2023 Escitalopram Oxalate 10 MG Oral Tablet (Lexapro) Take 1 Tablet by mouth in the morning. 90 Tablet 1 09/13/2023 Active Ferrous Sulfate 325 (65 Fe) MG Oral Tablet (Feosol) TAKE 1 TABLET BY MOUTH EVERY DAY WITH BREAKFAST 90 Tablet 1 09/13/2023 Active Fish Oil 500 MG Oral Capsule Take 1 Capsule by mouth in the morning. Take by mouth.. 90 Capsule 3 09/13/2023 Active Furosemide 20 MG Oral Tablet (Lasix)Indications: Hypertensive kidney disease with stage 3b chronic kidney disease (HCC) Take 1 Tablet by mouth in the morning. for fluid accumulation or weight gain. 90 Tablet 3 09/13/2023 Active guaiFENesin ER 600 MG Oral Tablet Extended Release 12 Hour (Humibid LA) Take 1 Tablet by mouth in the morning and 1 Tablet before bedtime. 60 Tablet 3 09/13/2023 Active Ipratropium-Albuter ol 0.5-2.5 (3) MG/3ML Inhalation Solution (Duoneb)Indications :COPD, moderate (HCC) Inhale 3 mL via nebulizer every 4 hours as needed for Wheezing. 3ml vial in nebuilzer every four hours as needed for wheezing 3 mL 0 09/13/2023 Active Lisinopril 10 MG Oral Tablet (Prinivil)Indicatio ns:Hypertensive kidney disease with stage 3b chronic kidney disease (HCC) Take 1 Tablet by mouth in the morning. 30 Tablet 0 09/13/2023 Active Mesalamine 1.2 GM Oral Tablet Delayed Release (Lialda)Indications :IBD (inflammatory bowel disease) Take 3 Tablets by mouth in the morning. 90 Tablet 0 09/13/2023 Active Pantoprazole Sodium 40 MG Oral Tablet Delayed Release (Protonix)Indicatio ns:IBD (inflammatory bowel disease) Take 1 Tablet by mouth in the morning. 30 Tablet 0 09/13/2023 Active PreserVision AREDS 2 Oral Tablet Chewable Take 1 Tablet by mouth daily. 90 Tablet 0 09/13/2023 Active Restasis 0.05 % Ophthalmic Emulsion Instill 1 Drop into both eyes in the morning and 1 Drop before bedtime. INSTILL 1 DROP INTO EACH EYE TWICE DAILY. 60 Each 0 09/13/2023 Active Rivaroxaban 15 MG Oral Tablet (Xarelto)Indication s:Chronic atrial fibrillation (HCC) Take 1 Tablet by mouth daily with dinner. 30 Tablet 0 09/13/2023 Active Additional Information Patient taking differently:15 mg Oral DINNER,ON HOLD 09/19/23- PER PCP, Reported on 09/20/2023 Solifenacin Succinate 5 MG Oral Tablet (VESIcare)Indicatio ns:Urge incontinence,Urinar y frequency,Urinary urgency,Mixed incontinence Take 1 Tablet by mouth in the morning. 30 Tablet 0 09/13/2023 Active Verapamil HCl ER 120 MG Oral Tablet Extended Release (Isoptin SR) Take 1 Tablet by mouth in the morning. 30 Tablet 0 09/13/2023 Active Vitamin C 500 MG Oral Tablet Chewable Take 1 Tablet by mouth in the morning. 90 Tablet 0 09/13/2023 Active Calcium Carb-Cholecalcifero l 500-10 MG-MCG Oral Tablet Take by mouth. 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 10/03/2023 Last Assessment & Plan: "RED FLAG" HF Symptoms: Leg Swelling (Examples: "I can't wear certain socks or shoes", "My pants feel tight") Increased dyspnea on exertion (Example: "I can't walk to the kitchen or up the stairs") Medication Regimen: Beta Dewayne Therapy: No beta-dewayne secondary to unknown SUE Inhibitor/ARB Therapy: Lisinopril Diuretic therapy: Lasix SGLT2 Inhibitor: No Current SGLT2 (Describe in the Comments) Remote Patient Monitoring Vendor: No Connected RPM Device(s): Traditional Scale Self - Management Plan Double dose of Furosemide for 3 days Exacerbation Plan Anticipated IV Lasix dose: 40 mg BMP Chest X-Ray Additional Comments: Euvolemic today Bilateral pleural effusion 09/06/2023 Interstitial lung disease 09/06/2023 Peristomal hernia 08/31/2023 Nephrolithiasis 08/16/2023 Full code status 08/14/2023 IBD [...] Hypoparathyroidism 09/30/2021 Chronic hypoxemic respiratory failure 09/30/2021 Last Assessment & Plan: On continuous supplemental o2 3lpm Senile osteoporosis 03/26/2021 Stage 3b chronic kidney disease 07/13/2020 Overview: Per CKD protocol - Per CKD protocol - Per CKD protocol DDD (degenerative disc disease), lumbar 02/07/20 Chronic bilateral low back pain without sciatica 02/04/2020 Macular degeneration 05/29/2019 S/P bilateral cataract extraction 05/29/2019 Colostomy status 05/29/2019 Paroxysmal atrial fibrillation 05/29/2019 Last Assessment & Plan: Rate controlled Xarelto resumed H/O resection of large bowel 05/29/2019 Diverticulosis of large intestine without hemorr angelica 05/29/2019 Mixed hyperlipidemia 05/29/2019 Tobacco use disorder 05/29/2019 FRANCIS and COPD overlap syndrome 12/15/2011 Last Assessment & Plan: "RED FLAG" COPD symptoms: Cough ("I get a different kind of cough than what I' have every day") Change in mucous ("My normal mucous is clear but this is yellow and tastes terrible") Wheezing ("You can hear the whistling across the room") Medication Regimen Class B - LABA Class D - LABA-LAMA Combination Inhaler Self-Management plan High frequency nebulizer treatments every 4-6 hours around the clock Budesonide (Pulmicort) nebulizer treatments twice daily Begin wearing supplemental oxygen continuously until symptoms return to baseline Exacerbation plan Solumedrol 40mg IM/IV Chest Xray Additional Comments: Stable today Needs sleep med f/u for cpap documented as of this encounter (statuses as of 10/10/2023) Resolved Problems Problem Noted Date Diagnosed Date Resolved Date Age-related osteoporosis wit hout current pathological fracture 08/16/2023 08/22/2023 Age-related osteoporosis wit hout current pathological fracture 08/16/2023 08/22/2023 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 Never true 09/27/19 24 Within the past 12 months, t he food you bought just didn't last and you didn't have money to get more. Never true 09/27/2023 Sex and Gender Information Value Date Recorded Sex Assigned at Female 08/11/2021 12:39 PM EST Gender Identity Female 08/11/2021 12:39 PM EST Sexual Orientation Straight 08/11/2021 12 :39 PM EST Job Start Date Occupation Industry Not on file Not on file Not on file documented as of this encounter Miscellaneous Notes * Telephone Encounter - Estrella Townsend LPN - 10/10/2023 3:00 PM EDT [place] [facility], Calling from: [facility] Reports that she will an order need to see pt next week for reevaluation. HH Admission/Start of Care Admission/Start of Care: Advised that orders will be signed by Tameka Mao MD and to fax to the office for signature. documented in this encounter Plan of Treatment Upcoming Encounters Date Type Department Care Team (Latest Contact Info) Description 10/23/2023 2:30 PM EDT Office Visit Rheumatology [address] [place] [phone] Jessica Stubbs CRNP [address] [place] [address] [place] [address] 10/26/2023 5:30 PM EDT Home Visit [facility], [address] [place] [address] Jodi Smallwood RN [address] [place] [address] 10/31/2023 11:20 AM EDT Office Visit Family [address] [phone] Tameka Hooper MD [address] [place] [address] [place] [address] 10/31/2023 1:00 PM EDT Cardiac Studies Cardiac Studies, [facility] [address] [place] [address] 11/13/2023 11:00 AM EDT [facility] Visit [facility], [facility] [address] [place] [address] Derick Miner PA-C [address] [place] [address] 11/14/2023 1:30 PM EDT Office Visit General Surgery, [facility] [place] [address] Latrice Hooks MD [address] [place] [address] 11/23/2023 3:00 PM EDT Office Visit [address] [phone] Betsey Cramer CRNP [address] [place] [address] [place] [address] 11/24/2023 8:35 AM EDT Hospital Encounter OR GL, Operating Room, [facility] - 4th Floor [facility] [place] [id number] Joshua Orantes MD [address] [place] [address] 11/24/2023 8:35 AM EDT - 11/24/2023 9:50 AM EDT Surgery OR GL, Operating Room, [facility] - 4th Floor [address] [place] [address] Joshua Orantes MD [address] [place] [address] COLONOSCOPY FLEXIBLE PROXIMAL DIAGNOSTIC 02/20/2024 3:40 PM EDT [facility] [address] [place] [phone] Lynn Busby DO [address] [place] [address] 03/26/2024 1:30 PM EDT Office Visit Nephrology [address] [place] [address] Zemaitis, Ayana Kirkpatrick PA-C [address] [place] [address] 05/01/2024 3:00 PM EDT Office Visit Dermatology [address] [place] [address] Anya Pratt PA-C [address] [place] [address] [place] [address] Scheduled Procedures Name Priority Associated Diagnoses Date/Ti me COLONOSCOPY FLEXIBLE PROXIMA L DIAGNOSTIC History of colonic polyps Gastric ulcer 11/24/2023 8:35 AM EDT ESOPHAGOGASTRODUODENOSCOPY ( EGD), FLEXIBLE, TRANSORAL, DIAGNOSTIC History of colonic polyps Gastric ulcer 11/24/2023 8:35 AM EDT Health Maintenance Due Date Last Done Comments DISCUSS TOBACCO CESSATION (REFER TO SMARTSET #3291) 1940 COVID-19 Vaccine ( season) 2023 06/01/2021, 10/20/2020, 09/15/2020 *BISPHONATE OR OTHER ACCEPTABLE MEDICATION NEEDED FOR OSTEOPOROSIS (REFER TO SMARTSET #1146) 10/08/2023 CKD PHOS USE SMARTSET 34499 12/28/202312/02, 04/26/2022, 11/23/2021, Additional history exists Influenza Vaccine (FLU shot) (Season Ended) 2024 GFR 03/15/2024 09/13/2023, 08/31, 09/09/2023, Additional history exists DXA Scan 08/01/2024 08/01/2022, 07/05, 07/07/2020, Additional history exists Albumin/Creatinine Ratio 09/18/2024 024, 08/15/2022, 02/09/2021 CKD HGB USE SMARTSET 46337 09/18/202409/18, 09/11/2023, 09/08/2023, Additional history exists O2 ASSESSMENT COMPLETED IN PAST YEAR FOR COPD 09/26/2024 09/27/2023 COLONOSCOPY-EVERY 5 YRS AGES 18-100 07/31/2028 07/31/2023, 02/23/2022, 02/23/2022, Additional history exists DTaP,Tdap,and Td Vaccines (2 - Td or Tdap) 08/07/2030 08/07/2020 (Not indicated), 09/01/1998 Pneumococcal Vaccine: 65+ Years Completed 05/16/2016, 12/01/2014, 12/01/2013, Additional history exists Zoster Vaccines Discontinued 12/28/2022 VITAMIN D LEVEL ONCE IN A LIFETIME-USE SMARTSET# 62937 Completed 09/19/2023, 12/27/2022, 08/12/2022, Additional history exists Alpha-1 Antitrypsin Discontinued GARDASIL-HPV IMMUNIZATION SERIES Aged [...] verbally by patient or by statute hierarchy) Jean [facility]ul[facility] Adult Child Health Care Repr esentative (appointed verbally by patient or by statute hierarchy) Care Teams Weighmaster Relationship Specialty Start Date End Date Tameka Hooper MD [address] [place] [address] [place] [address] PCP - General Family Medicine 05/29/19 documented as of this encounter
--- OUTSIDE RECORDS SUMMARY | 2023-10-13 18:17 | External Medical Summary | Summary of Care ---
Author Name Unknown Organization [facility] Address [address] [place] [address] Phone [phone] Care Team Providers Care Haulage Boss Name Role Phone Tameka Hooper MD Primary Care Prov ider Reason for Visit * Reason Onset Date Comments Blood Pressure Problem 10/05/2023 Encounter Details Date Type Department Care Team (Late st Contact Info) Description 10/05/2023 Telephone Family Medicine [address] [phone] Tameka Hooper MD [address] [place], [place] [address] [address] Blood Pressure Problem Allergies Active Allergy Reactions Criticality Noted Date Comments Amoxicillin Rash 02/07/2020 Bactrim Rash 12/15/2011 Ciprofloxacin Rash 12/15/2011 Diltiazem Rash 05/29/2019 Piroxicam Rash 12/15/2011 Cephalexin Rash 12/15/2011 Meloxicam Rash 05/29/2019 Other reaction(s): Other Cilostazol Rash,Unknown 12/15/2011 Sulfamethoxazole High 01/19/2023 Other Reaction(s): Rash Trimethoprim High 01/19/2023 Other Reaction(s): Rash documented as of this encounter (statuses as of 10/12/2023) Medications Medication Sig Dispensed Refills Start Date [...] as of this encounter (statuses as of 10/12/2023) Active Problems Problem Noted Date Diagnosed Date COPD, group C, by GOLD 2017 classification 10/08 Overview: Per COPD GOLD Classification Hypertensive heart and kidne y disease with [...] with stage 3b chronic kidney disease 12/13/2022 Essential (primary) hypertension 08/12/2022 History of healed [...] as of this encounter (statuses as of 10/12/2023) Resolved Problems Problem Noted Date Diagnosed Date Resolved Date Age-related osteoporosis wit hout current pathological fracture 08/16/2023 08/22/2023 Age-related osteoporosis wit hout current pathological fracture 08/16/2023 08/22/2023 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 She's aware and they do have someone scheduled to go back out today. I called pt- she states it's been "pretty good", it's only been low a couple of times. * Telephone Encounter - Tameka Hooper MD - 10/10/2023 6:25 PM EDT Agree with advice given; would also consider holding BP meds if still hypotensive. Please call back to HH and patient to follow up. * Telephone Encounter - Vesna Yousif LPN - 10/05/2023 10:56 AM EDT HH Concerns [facility] PT, Calling from: [place] Report/Concerns of: BP Symptoms: none Vitals: T 98.1 P 81 RR 16 BP 130/42 SP O2 98% with O2@3L Lung sounds - Clear Weight - 160 lbs (09/28/23) and today 159 lbs Blood sugar - N/A Ankle measurements are stable Narrative: [facility] is calling to report that patient diastolic BP is 30 lower than it was last check on 10/03/23 - BP 118/72. Patient reports that she is feeling light headed when she gets up to ambulate but this is not a new sx for her. Otherwise, patient is asymptomatic. Called office, spoke to Brenda: Per Dr. Mckinnon patient should increase water intake and check BP - call in with readings in a week Any new or concerning sx's patient should go to ER [facility]ot and Patient on the phone together and made aware of advise - agreeable Patient will check her BP every day and record it, then call in 1 week with the readings. documented in this encounter Plan of Treatment Upcoming Encounters Date Type Department Care Team (Latest Contact Info) Description 10/23/2023 2:30 PM EDT Office Visit Rheumatology [address] [place] [phone] Jessica Stubbs CRNP [facility] [place] [address] 10/26/2023 5:30 PM EDT [facility] Visit [facility] [address] [place] [address] Jodi Smallwood, [place] [address] [address] 10/31/2023 11:20 AM EDT Office Visit Family Medicine [address] [place] [phone] Tameka Hooper MD [address] [place] [address] [place] [address] 10/31/2023 1:00 PM EDT Cardiac Studies Cardiac Studies, [facility] [address] [place] [address] 11/13/2023 11:00 AM EDT Home Visit [facility] [place], [facility] [address] [place] [address] Derick Miner PA-C [address] [place] [address] 11/14/2023 1:30 PM EDT Office Visit General Surgery, [facility] [address] [place] [address] Latrice Hooks MD [facility] [place] [address] 11/23/2023 3:00 PM EDT Office Visit Family [address] [place] [phone] Betsey Cramer [address] [place] [address] 11/24/2023 8:35 AM EDT Hospital Encounter OR [facility], Operating Room, [facility] Floor [address] [place] [address] Joshua Orantes MD [address] [place] [address] 11/24/2023 8:35 AM EDT - 11/24/2023 9:50 AM EDT Surgery OR [facility], Operating Room, [facility] Floor [address] [place] [address] Joshua Orantes MD [address] [place] [address] COLONOSCOPY FLEXIBLE PROXIMAL DIAGNOSTIC 02/20/2024 3:40 PM EDT Office Visit [facility] Disorders [facility] Nikole Reardon [place] [address] [place] [phone] Lynn Busby DO [address] [place] [address] 03/26/2024 1:30 PM EDT Office Visit Nephrology [address] [place] [address] ZemaAyana hurtado PA-C [address] [place] [address] 05/01/2024 3:00 PM EDT Office Visit Dermatology [address] [place] [address] Anya Pratt PA-C [address] [place] [address] [place] [address] Scheduled Procedures Name Priority Associated Diagnoses Date/Ti [...] SMARTSET #1146) 10/08/2023 CKD PHOS USE SMARTSET 96051 12/28/2023 06/2 12/2022, 04/26/2022, 11/23/2021, Additional history exists Influenza Vaccine (FLU shot) (Season Ended) 2024 GFR 03/15/2024 09/13/2023, 08/31, 09/09/2023, Additional history exists DXA Scan 08/01/2024 08/01/2022, 07/05, 07/07/2020, Additional history exists Albumin/Creatinine Ratio 09/18/2024 024, 08/15/2022, 02/09/2021 CKD HGB USE SMARTSET 57855 09/18/202409/18, 09/11/2023, 09/08/2023, Additional history exists O2 [...] D LEVEL ONCE IN A LIFETIME-USE SMARTSET# 90250 Completed 09/19/2023, 12/27/2022, 08/12/2022, Additional history exists [...] patient or by statute hierarchy) Care Teams Haulage Boss Relationship Specialty Start Date End Date Tameka Hooper MD [address] [place] [address] [place] [phone] PCP - General Family Medicine 05/29/19 documented as of this encounter
--- OUTSIDE RECORDS SUMMARY | 2023-10-13 18:17 | External Medical Summary | Summary of Care ---
Author Name Unknown Organization [facility] Address [address] [place] [address] Phone [phone] Care Team Providers Care Epic Willow Specialist Name Role Phone Tameka Hooper MD Primary Care Prov ider Reason for Visit * Reason Onset Date Comments Blood Pressure Problem 10/05/2023 Encounter Details Date Type Department Care Team (Late st Contact Info) Description 10/05/2023 Telephone Family Medicine [address] [phone] Tameka Hooper MD [address] [place], [place] [address] [address] Blood Pressure Problem Allergies Active Allergy [...] - N/A Ankle measurements are stable Narrative: Margot is calling to report that patient diastolic [...] 10/23/2023 2:30 PM EDT Office Visit Rheumatology [address] [place] [phone] Jessica Stubbs CRNP [facility] [place] [address] 10/26/2023 5:30 PM EDT Home Visit [facility] [address] [place] [address] Jodi Smallwood, [place] [address] [place] [address] 10/31/2023 11:20 AM EDT Office Visit Family Medicine [address] [place] [phone] Tameka Hooper MD [address] [place] [address] [place] [address] 10/31/2023 1:00 PM EDT Cardiac Studies Cardiac Studies, [facility] [address] [place] [address] 11/13/2023 11:00 AM EDT Home Visit [facility] [place], [facility] [address] [place] [address] Derick Miner PA-C [address] [place] [address] 11/14/2023 1:30 PM EDT Office Visit General Surgery, [facility] [address] [place] [address] Latrice Hooks MD [facility] [place] [address] 11/23/2023 3:00 PM EDT Office Visit Family [address] [place] [phone] Betsey Cramer [address] [place] [address] 11/24/2023 8:35 AM EDT Hospital Encounter OR [facility], Operating Room, [facility] Floor [address] [place] [address] Joshua Orantes MD [address] [place] [address] 11/24/2023 8:35 AM EDT - 11/24/2023 9:50 AM EDT Surgery OR [facility], Operating Room, [facility] Floor [address] [place] [address] Joshua Orantes MD [address] [place] [address] COLONOSCOPY FLEXIBLE PROXIMAL DIAGNOSTIC 02/20/2024 3:40 PM EDT Office Visit [facility] Nikole Reardon [place] [address] [place] [phone] Lynn Busby DO [address] [place] [address] 03/26/2024 1:30 PM EDT Office Visit Nephrology [address] [place] [address] ZemaAyana hurtado PA-C [address] [place] [address] 05/01/2024 3:00 PM EDT Office Visit Dermatology [address] [place] [address] Anya Pratt PA-C [address] [place] [address] [place] [address] Scheduled Procedures Name Priority Associated Diagnoses Date/Ti [...] SMARTSET #1146) 10/08/2023 CKD PHOS USE SMARTSET 48647 12/28/2023 06/2 12/2022, 04/26/2022, 11/23/2021, Additional history exists Influenza Vaccine (FLU shot) (Season Ended) 2024 GFR 03/15/2024 09/13/2023, 08/31, 09/09/2023, Additional history exists DXA Scan 08/01/2024 08/01/2022, 07/05, 07/07/2020, Additional history exists Albumin/Creatinine Ratio 09/18/2024 024, 08/15/2022, 02/09/2021 CKD HGB USE SMARTSET 46994 09/18/202409/18, 09/11/2023, 09/08/2023, Additional history exists O2 [...] D LEVEL ONCE IN A LIFETIME-USE SMARTSET# 30179 Completed 09/19/2023, 12/27/2022, 08/12/2022, Additional history exists [...] patient or by statute hierarchy) Care Teams Epic Willow Specialist Relationship Specialty Start Date End Date Tameka Hooper MD [address] [place] [address] [place] [phone] PCP - General Family Medicine 05/29/19 documented as of this encounter
--- OUTSIDE RECORDS SUMMARY | 2023-10-13 18:18 | External Medical Summary | Summary of Care ---
Author Name Unknown Organization [facility] [address] [facility] [address] Phone [phone] Care Team Providers Care Harness Placer Name Role Phone Tameka Hooper MD Primary Care Prov ider Encounter Details Date Type Department Care Team (Late st Contact Info) Description 09/27/2023 1:30 PM EDT Telemedicine ising at [place], [facility] [address] [place] [address] Derick Miner PA-C [address] [place] [address] Valentina Barrera [facility] [address] [place] [address] 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 chronic kidney disease (HCC)*; Chronic hypoxemic respiratory failure (HCC); Interstitial lung disease (HCC); Paroxysmal atrial fibrillation (HCC); 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HCC); Colostomy status (HCC) Allergies Active Allergy Reactions Criticality Noted Date Comments Amoxicillin Rash 02/07/2020 Bactrim Rash 12/15/2011 Ciprofloxacin Rash 12/15/2011 Diltiazem Rash 05/29/2019 Piroxicam Rash 12/15/2011 Cephalexin Rash 12/15/2011 Meloxicam Rash 05/29/2019 Other reaction(s): Other Cilostazol Rash,Unknown 12/15/2011 Sulfamethoxazole High 01/19/2023 Other Reaction(s): Rash Trimethoprim High 01/19/2023 Other Reaction(s): Rash documented as of this encounter (statuses as of 10/03/2023) Medications Medication Sig Dispensed Refills Start Date [...] as of this encounter (statuses as of 10/03/2023) Active Problems Problem Noted Date Diagnosed Date [...] actinic keratosis 05/22/2023 Overview: Efudex (nose/upper lip 10/23) Other specified peripheral vascular diseases Hypertensive kidney [...] as of this encounter (statuses as of 10/03/2023) Resolved Problems Problem Noted Date Diagnosed Date Resolved Date Age-related osteoporosis wit hout current pathological fracture 08/16/2023 08/22/2023 Age-related osteoporosis wit hout current pathological fracture 08/16/2023 08/22/2023 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 08/16/1909/19/2023 Actinic keratosis 04/26/2022 05/22/2023 Prediabetes 03/15/2021 12/16/2021 [...] as of this encounter (statuses as of 10/03/2023) Immunizations Name Administration Dates Next Due COVID-19 [...] Sign Reading Time Taken Comments Blood Pressure 118/50 09/27/2023 2:34 PM EDT Pulse 72 09/27/2023 1:50 PM EDT Temperature 35.6 C (96.1 F) 09/27/2023 1:50 PM ED T Respiratory Rate 18 09/27/2023 1:50 PM EDT Oxygen Saturation 92% 09/27/2023 1:50 PM EDT 3 lpm Inhaled Oxygen Concentration - - Weight - - Height - - Body Mass Index - - documented in this encounter Progress Notes * Valentina Barrera, Community Health Senior Sales Representative - 09/27/2023 2:37 PM EDT Telemedicine visit: Yes Patient location: HOME. I was in a hospital or clinic location. After connecting through televideo,patient was verified with two unique identifiers. Patient (or authorized legal telecommunications sales representative) was then informed that this was a Telemedicine visit and being conducted confidentially over secure lines. Methods to assure confidentiality were taken. Patient acknowledged consent and understanding of pr ivacy and security of the Telemedicine visit. The patient agreed to participate. Community Health Senior Sales Representative (JAY) documentation: CHW home visit for telemed with [facility] provider. BP 118/50 (BP Site: Right Arm, BP Position: Sitting, BP Cuff Size: Regular) | Pulse 72 | Temp 35.6 C (96.1 F) | Resp 18 | SpO2 92% Comment: 3 lpm Patient reports her BP runs low at times. States she's had approx 16oz water today. States she willdrink some Gatoraid as well. Provided patient with [facility] intake number, and encouraged to call with any concerns. See assessments/surveys completed at time of visit. Valentina Barrera Community Health Worker Electronically signed by Valentina Barrera Community Health Senior Sales Representative at 10/03/2023 10:55 AM EDT * Derick Miner PA-C - 09/27/2023 2:00 PM EDT Images from the original note were not included. [facility] Problem Oriented Charting Provider Visit Date: 09/27/2023 Time: 2:00 PM [facility] Sub-Program: No data was found Assessment and Plan #1 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 chronic kidney disease (HCC) (Primary) Assessment & Plan: "RED FLAG" HF Symptoms: [...] BMP Chest X-Ray Additional Comments: Euvolemic today #2 Chronic hypoxemic respiratory failure (HCC) Assessment & Plan: On continuous supplemental o2 3lpm #3 Interstitial lung disease (HCC) #4 Paroxysmal atrial fibrillation (HCC) Assessment & Plan: Rate controlled Xarelto on hold at this time due to anemia #5 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HCC) Assessment & Plan: "RED FLAG" COPD symptoms: [...] today Needs sleep med f/u for cpap #6 Colostomy status ([facility]) Additional Medical Decision Making: Lives alone in mobile home Family [facility] and fills pill boxes Scheduled appointments in the next 60 days: Future Appointments-next 60 days Date/Time Provider Specialty Dept Phone 09/28/2023 1:30 PM (Arrive by 1:15 PM) Rik Saez MD General Surgery [phone] 10/23/2023 2:30 PM (Arrive by 2:15 PM) Jessica Stubbs CRNP Rheumatology [phone] 10/26/2023 5:30 PM Jodi Smallwood RN [facility] [phone] 10/31/2023 11:20 AM (Arrive by 11:05 AM) Tameka Hooper MD Family Medicine [phone] 10/31/2023 1:00 PM [employer] 1 GW Cardiac Studies [phone] 11/23/2023 3:00 PM (Arrive by 2:45 PM) Betsey Cramer CRNP Family Medicine [phone] 02/20/2024 3:40 PM (Arrive by 3:25 PM) Lynn Busby DO Sleep Disorders [phone] 03/26/2024 1:30 PM (Arrive by 1:15 PM) Zemaitis, Ayana Kaya, PA-C Nephrology [phone] 05/01/2024 3:00 PM (Arrive by 2:45 PM) Anya Pratt PA-C Dermatology [phone] A total of 25 minutes was spent face to face (via video-based telemedicine if designated as a telemedicine visit) Subjective Subjective Is this a Telemedicine Visit? Yes, Patient location: HOME. I was not in a hospital or clinic location. After connecting through televideo, patient was verified with two unique identifiers. Patient (or authorized legal telecommunications sales representative) was then informed that this was a Telemedicine visit and being conducted confidentially over secure lines. Methods to assure confidentiality were taken. Patient acknowledged consent and understanding of privacy and security of the Telemedicine visit. The patient agreed to participate. Reason For [facility] Visit: Enrollment Current Concerns: Eliazar Beaulieu is a 83 year old female seen today for a [facility] provider visit. PMH includes chronic hypoxemic respiratory failure, COPD, FRANCIS, afib, HTN, CKD3, dyslipidemia, IBD s/p colostomy 07/25-08/05/23 - [facility] - GI bleed, weakness, anemia, transfusion 08/06-08/11/23 - [facility] - acute on chronic respiratory failure, COPD, CHF 08/11-08/20/23 - [facility] 08/28-08/31/23 - [facility] - acute on chronic resp failure, Flu A, CHF -09/13/23 - [facility] Today's concerns are: Being seen for new enrollment Multiple admissions this year as noted above Has been home approx 2 weeks now [facility] Feels like she has been doing fairly well Lives alone in mobile home, but has son and DIL that live about 1 min away and stop in almost daily Breathing at baseline as long as she is wearing her o2 Denies SOB at rest Denies cough, chest pain, fever/chills Has walker, but does not use Lives in mobile home Son and DIL about 1 mile away, in frequently [facility], therapy and pillbox weekly on Fridays Breathing ok , 3llpm o2 24/7 Weighs daily - 159lbs Family helps with meals Needs cpap, previously non compliant and hesitant to use due to recalls Prefers [facility] for colonscopy Additional Objective Objective Vitals: 09/27/23 1350 09/27/23 1434 Temp: 35.6 C (96.1 F) Pulse: 72 Resp: 18 SpO2: 92% BP: 118/40 118/50 Last Weights: Wt Readings from Last 3 Encounters: 09/19/23 71.8 kg (158 lb 3.2 oz) 08/24/23 78.5 kg (173 lb) 06/19/23 78.7 kg (173 lb 9.6 oz) Last BPs: BP Readings from Last 4 Encounters: 09/27/23 118/50 09/20/23 122/54 09/19/23 112/60 08/24/23 110/56 General: alert and no distress Neuro: alert & oriented x 3 with fluent speech Heart: regular rate & rhythm and no murmur Lungs: lungs clear to auscultation, no wheeze, no rales, no rhonchi Ext: Normal extremities without edema Lab Review: I have reviewed the following results: Imaging results in the last 6 months No imaging results in the last 6 months BMP results Recent Labs Units 09/13/23 0553 09/11/23 0613 09/09/23 0000 09/08/23 0601 SODIUM - [facility] mmol/L 143 142 -- 140 POTASSIUM - [facility] mmol/L 4.6 3.9 -- 4.0 POTASSIUM-OUTSIDE LAB MMOL/L -- -- 3.4* -- CHLORIDE - [facility] mmol/L 108* 108* -- 105 CO2 - [facility] mmol/L 27 22 -- 27 CREATININE - [facility] mg/dL 1.7* 1.7* -- 2.1* CREATININE-OUTSIDE LAB MG/DL -- -- 1.86* -- BUN - [facility] mg/dL 21* 16 -- 26* Lipid panel results Recent Labs Units 12/27/22 1411 CHOLESTEROL - [facility] mg/dL 155 LDL CHOLESTEROL (CALCULATED) - [facility] mg/dL 84 HDL CHOLESTEROL - [facility] mg/dL 37* TRIGLYCERIDES - [facility] mg/dL 172 CBC results Recent Labs Units 09/19/23 1053 09/11/23 0613 09/08/23 0601 WBC K/uL 9.19 9.75 12.82* HGB g/dL 8.6* 8.3* 8.0* HCT % 30.1* 27.5* 28.5* PLT K/uL 412* 297 309 HbA1c results No results for input(s): "HGBA1C" in the last 45210 hours. Medication Review Med box managed by [facility] Derick Miner PA-C 2:00 PM *Communication sent to PCP (via [facility] if [facility]), [facility] Care Team members,relevant Specialty Care Physicians* documented in this encounter Miscellaneous Notes * Assessment & Plan Note - Derick Miner PA-C - 10/03/2023 10:44 AM EDT Associated Problem(s): Paroxysmal atrial fibrillation (HCC) Rate controlled Xarelto resumed * Assessment & Plan Note - Derick Miner PA-C - 10/03/2023 10:44 AM EDT Associated Problem(s): 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HCC) "RED FLAG" COPD symptoms: Cough ("I get [...] today Needs sleep med f/u for cpap * Assessment & Plan Note - Derick Miner PA-C - 10/03/2023 10:41 AM EDT Associated Problem(s): 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 chronic kidney disease (HCC) "RED FLAG" HF Symptoms: Leg Swelling (Examples: [...] BMP Chest X-Ray Additional Comments: Euvolemic today * Assessment & Plan Note - Derick Miner PA-C - 10/03/2023 10:39 AM EDT Associated Problem(s): Chronic hypoxemic respiratory failure (HCC) On continuous supplemental o2 3lpm documented in this encounter Plan of Treatment Upcoming Encounters Date Type Department Care Team (Latest Contact Info) Description 10/23/2023 2:30 PM EDT Office Visit Rheumatology [address] [place] [phone] Jessica Stubbs CRNP [address] [place], [place] [address] [address] 10/26/2023 5:30 PM EDT Home Visit [facility] [address] [place] [address] Jodi Smallwood, STANISLAW [address] [place] [address] 10/31/2023 11:20 AM EDT Office Visit Family Medicine [address] [place] [phone] Tameka Hooper MD [address] [place] [address] [place] [address] 10/31/2023 1:00 PM EDT Cardiac Studies Cardiac Studies, [facility] [place] [address] 11/13/2023 11:00 AM EDT Home Visit [facility], [facility] [address] [place] [address] Derick Miner PA-C [address] [place] [address] 11/14/2023 1:30 PM EDT Office Visit General Surgery, [facility] [place] [address] Latrice Hooks MD [address] [place] [address] 11/23/2023 3:00 PM EDT Office Visit Family [address] [place] [phone] Betsey Cramer [address] [place] [address] 11/24/2023 8:35 AM EDT Hospital Encounter OR [facility], Operating Room, [facility] - 4th Floor [address] [facility] [place] [address] Joshua Orantes MD 132 [facility] [place] [address] 11/24/2023 8:35 AM EDT - 11/24/2023 9:50 AM EDT Surgery OR [facility], Operating Room, [facility] - 4th Floor [address] [facility] [place] [address] Joshua Orantes MD [address] [place] [address] COLONOSCOPY FLEXIBLE PROXIMAL DIAGNOSTIC 02/20/2024 3:40 PM EDT Office Visit Sleep Disorders Ctr [facility] [address] [place] [phone] Lynn Busby DO [address] [place] [address] 03/26/2024 1:30 PM EDT Office Visit Nephrology [address] [place] [address] Zemaitis, Ayana Kirkpatrick PA-C [address] [place] [address] 05/01/2024 3:00 PM EDT Office Visit Dermatology [address] [place] [address] Anya Pratt PA-C [address] [place] [address] [place] [address] Scheduled Procedures Name Priority Associated Diagnoses Date/Ti me COLONOSCOPY FLEXIBLE PROXIMA L DIAGNOSTIC History of colonic polyps Gastric ulcer 11/24/2023 8:35 AM EDT ESOPHAGOGASTRODUODENOSCOPY ( EGD), FLEXIBLE, TRANSORAL, DIAGNOSTIC History of colonic polyps Gastric ulcer 11/24/2023 8:35 AM EDT Health Maintenance Due Date Last Done Comments DISCUSS TOBACCO CESSATION (REFER TO SMARTSET #3291) 1940 COVID-19 Vaccine ( season) 2023 06/01/2021, 10/20/2020, 09/15/2020 CKD PHOS USE SMARTSET 67921 12/28/202312/02, 04/26/2022, 11/23/2021, Additional history exists Influenza Vaccine (FLU shot) (Season Ended) 2024 GFR 03/15/2024 09/13/2023, 08/31, 09/09/2023, Additional history exists DXA Scan 08/01/2024 08/01/2022, 07/05, 07/07/2020, Additional history exists Depression Screening 08/21/2024 08/21/2023 Albumin/Creatinine Ratio 09/18/2024 024, 08/15/2022, 02/09/2021 CKD HGB USE SMARTSET 87191 09/18/202409/18, 09/11/2023, 09/08/2023, Additional history exists O2 [...] D LEVEL ONCE IN A LIFETIME-USE SMARTSET# [id number] Completed 09/19/2023, 12/27/2022, 08/12/2022, Additional history exists [...] as of this encounter Visit Diagnoses Diagnosis 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 chronic kidney disease (HCC)- Primary Chronic hypoxemic respiratory failure (HCC) Chronic respiratory failure Interstitial lung disease (HCC) Postinflammatory pulmonary fibrosis Paroxysmal atrial fibrillation (HCC) Atrial fibrillation 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HCC) Colostomy status (HCC) Colostomy status History of colonic polyps Personal history of colonic polyps Gastric ulcer Gastric ulcer, unspecified as acute or chronic, without mention of hemorrhage, perforation, or obstruction documented in this encounter Advance Directives Healthcare Agents on File Name Relationship Healthcare Agent Relationshi p Communication Juan Daniel Beaulieu Adult Child Health Care Repr esentative (appointed verbally by patient or by statute hierarchy) Jean Beaulieu Adult Child Health Care Repr esentative (appointed verbally by patient or by statute hierarchy) Care Teams Harness Placer Relationship Specialty Start Date End Date Tameka Hooper MD [address] [place] [address] [place] [address] PCP - General Family Medicine 05/29/19 documented as of this encounter
--- OUTSIDE RECORDS SUMMARY | 2023-10-13 18:18 | External Medical Summary | Summary of Care ---
Author Name Unknown Organization [facility] Address [address] [place] [facility] [place] [address] Phone [phone] Care Team Providers Care Crop Adjuster Name Role Phone Tameka Hooper MD Primary Care Prov ider Reason for Visit * Reason Onset Date Comments Advice 09/28/2023 Encounter Details Date Type Department Care Team (Late st Contact Info) Description 09/28/2023 Telephone General Surgery, [facility] [address] [place] [address] Rik Saez MD [address] [place] [address] Advice Allergies Active Allergy Reactions Criticality Noted Date Comments Amoxicillin Rash 02/07/2020 Bactrim Rash 12/15/2011 Ciprofloxacin Rash 12/15/2011 Diltiazem Rash 05/29/2019 Piroxicam Rash 12/15/2011 Cephalexin Rash 12/15/2011 Meloxicam Rash 05/29/2019 Other reaction(s): Other Cilostazol Rash,Unknown 12/15/2011 Sulfamethoxazole High 01/19/2023 Other Reaction(s): Rash Trimethoprim High 01/19/2023 Other Reaction(s): Rash documented as of this encounter (statuses as of 10/05/2023) Medications Medication Sig Dispensed Refills Start Date [...] as of this encounter (statuses as of 10/05/2023) Active Problems Problem Noted Date Diagnosed Date Bilateral pleural effusion 09/06/2023 Interstitial lung disease [...] as of this encounter (statuses as of 10/05/2023) Resolved Problems Problem Noted Date Diagnosed Date [...] as of this encounter (statuses as of 10/05/2023) Immunizations Name Administration Dates Next Due COVID-19 [...] encounter Miscellaneous Notes * Telephone Encounter - Avani Arceo MED ASSIST - 10/02/2023 1:43 PM EDT [facility] is [email or web address] with Dr Hooks * Telephone Encounter - Delisa Felipe LPN - 10/02/2023 12:39 PM EDT Please call patient and schedule next available at [place] with Dr Rich * Telephone Encounter - Roz Pittman LPN - 09/28/2023 1:40 PM EDT Contacted primary number on chart and spoke with pt's DIL - states that they did not receive a callthis morning about the cancelled appointment, but also states that patient is not seeking surgical correction and just wants the area to be monitored. Also states that patient is at [facility] for the appointment at this time. Provided my direct line for callback when/if they decide to schedule - will offer Dr. Morley at [place], or Drs. Snyder at [place], or [facility] if needed. Bridget Pittman LPN Intake Nurse Navigator General Surgery and Breast Clinic [facility] * Telephone Encounter - Delisa Felipe LPN - 09/28/2023 1:21 PM EDT No general surgeon will see this condition but the patient could be scheduled with Dr Rich at [place] as stated * Telephone Encounter - Tiffanie Frank CMA - 09/28/2023 1:17 PM EDT Patient could be seen by Dr Rich in [place]. Or schedule in [place] * Telephone Encounter - Jannette Pacheco LPN - 09/28/2023 8:31 AM EDT Called patient, left a message that dr Saez does not do parastomal hernias and she will have to go to [place] for that. Asked her to call back. documented in this encounter Plan of Treatment Upcoming Encounters Date Type Department Care Team (Latest Contact Info) Description 10/23/2023 2:30 PM EDT Office Visit Rheumatology [address] [place] [phone] Jessica Stubbs CRNP [address] [place] [address] [place] [address] 10/26/2023 5:30 PM EDT Home Visit [facility] [address] [facility] [place] [address] Jodi Smallwood, STANISLAW 132 [facility] [place] [address] 10/31/2023 11:20 AM EDT Office Visit Family Medicine [address] [place] [phone] Tameka Hooper MD [address] [place] [address] [place] [address] 10/31/2023 1:00 PM EDT Cardiac Studies Cardiac Studies, [facility] [place] [address] 11/13/2023 11:00 AM EDT Home Visit [facility], [facility] [address] [place] [address] Derick Miner PA-C [address] [place] [address] 11/14/2023 1:30 PM EDT Office Visit General Surgery, [facility] [address] [place] [address] Latriec Hooks MD [address] [place] [address] 11/23/2023 3:00 PM EDT Office Visit Family Medicine [address] [phone] Betsey Cramer [address] [place] [address] 11/24/2023 8:35 AM EDT Hospital Encounter OR [facility], Operating Room, [facility] - 4th Floor [address] [facility] [place] [address] Joshua Orantes MD [address] [place] [address] 11/24/2023 8:35 AM EDT - 11/24/2023 9:50 AM EDT Surgery OR [facility], Operating Room, [facility] - 4th Floor [address] [facility] [place] [address] Joshua Orantes MD [address] [place] [address] COLONOSCOPY FLEXIBLE PROXIMAL DIAGNOSTIC 02/20/2024 3:40 PM EDT Office Visit Sleep Disorders Ctr [facility] [address] [place] [phone] Lynn Busby, DO [address] [place] [address] 03/26/2024 1:30 PM EDT Office Visit Nephrology [address] [place] [address] ZemaAyana hurtado PA-C [address] [place] [address] 05/01/2024 3:00 PM EDT Office Visit Dermatology [address] [place] [address] Anya Pratt PA-C [address] [place] [address] [place] [address] Scheduled Procedures Name Priority Associated Diagnoses Date/Ti [...] 06/01/2021, 10/20/2020, 09/15/2020 CKD PHOS USE SMARTSET 58537 12/28/202312/02, 04/26/2022, 11/23/2021, Additional history exists Influenza Vaccine (FLU shot) (Season Ended) 2024 GFR 03/15/2024 09/13/2023, 08/31, 09/09/2023, Additional history exists DXA Scan 08/01/2024 08/01/2022, 07/05, 07/07/2020, Additional history exists Depression Screening 08/21/2024 08/21/2023 Albumin/Creatinine Ratio 09/18/2024 024, 08/15/2022, 02/09/2021 CKD HGB USE SMARTSET 78989 09/18/202409/18, 09/11/2023, 09/08/2023, Additional history exists O2 [...] D LEVEL ONCE IN A LIFETIME-USE SMARTSET# [id number] Completed 09/19/2023, 12/27/2022, 08/12/2022, Additional history exists [...] patient or by statute hierarchy) Care Teams Crop Adjuster Relationship Specialty Start Date End Date Tameka Hooper MD [address] [place] [address] [place] [address] PCP - General Family Medicine 05/29/19 documented as of this encounter
--- OUTSIDE RECORDS SUMMARY | 2023-10-13 18:18 | External Medical Summary | Summary of Care ---
Author Name Unknown Organization [facility] Address [address] [place] [address] Phone [phone] Care Team Providers Care Air Hose Coupler Name Role Phone Tameka Hooper MD Primary Care Prov ider Reason for Visit * Reason Onset Date Comments Advice 09/28/2023 Encounter Details Date Type Department Care Team (Late st Contact Info) Description 09/28/2023 Telephone General Surgery, [facility] [address] [place] [address] Rik Saez MD [address] [place] [address] Advice Allergies Active Allergy Reactions Criticality Noted Date Comments Amoxicillin Rash 02/07/2020 Bactrim Rash 12/15/2011 Ciprofloxacin Rash 12/15/2011 Diltiazem Rash 05/29/2019 Piroxicam Rash 12/15/2011 Cephalexin Rash 12/15/2011 Meloxicam Rash 05/29/2019 Other reaction(s): Other Cilostazol Rash,Unknown 12/15/2011 Sulfamethoxazole High 01/19/2023 Other Reaction(s): Rash Trimethoprim High 01/19/2023 Other Reaction(s): Rash documented as of this encounter (statuses as of 10/02/2023) Medications Medication Sig Dispensed Refills Start Date [...] as of this encounter (statuses as of 10/02/2023) Active Problems Problem Noted Date Diagnosed Date [...] as of this encounter (statuses as of 10/02/2023) Resolved Problems Problem Noted Date Diagnosed Date [...] as of this encounter (statuses as of 10/02/2023) Immunizations Name Administration Dates Next Due COVID-19 [...] 1:43 PM EDT Pt is scheduled for [facility] with Dr Hooks * Telephone Encounter - Delisa Felipe LPN - 10/02/2023 12:39 PM EDT Please call patient and schedule next available at [place] with Dr Rich * Telephone Encounter - Roz Pittman LPN - 09/28/2023 1:40 PM EDT Contacted primary number on chart and spoke with pt's DIL - states that they did not receive a callthis morning about the cancelled appointment, but also states that patient is not seeking surgical correction and just wants the area to be monitored. Also states that patient is at [facility] for the appointment at this time. Provided my direct line for callback when/if they decide to schedule - will offer Dr. Morley at [place], or Drs. Snyder at [place], or [facility] if needed. Bridget Pittman LPN Intake Nurse Navigator General Surgery and Breast Clinic [facility] [address] * Telephone Encounter - Delisa Felipe LPN - 09/28/2023 1:21 PM EDT No general surgeon will see this condition but the patient could be scheduled with Dr Rich at [place] as stated * Telephone Encounter - Tiffanie Frank CMA - 09/28/2023 1:17 PM EDT Patient could be seen by Dr Rich in [place]. 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 Asked her to call back. documented in this encounter Plan of Treatment Upcoming Encounters Date Type Department Care Team (Latest Contact Info) Description 10/23/2023 2:30 PM EDT Office Visit Rheumatology [address] [place] [phone] Jessica Stubbs CRNP [address] [place] [address] [place] [address] 10/26/2023 5:30 PM EDT [facility], [facility] 132 [facility] [place] [address] Jodi Smallowod RN 132 [facility] [address] 10/31/2023 11:20 AM EDT Office Visit Family Medicine [address] [place] [phone] Tameka Hooper MD [address] [place] [address] [place] [address] 10/31/2023 1:00 PM EDT Cardiac Studies Cardiac Studies, [facility] [address] 11/14/2023 1:30 PM EDT Office Visit General Surgery, [facility] [address] Latrice Hooks MD [address] [place] [address] 11/23/2023 3:00 PM EDT Office Visit Family Medicine [address] [place] [phone] Betsey Cramer CRNP [address] [place] [address] [place] [address] 11/24/2023 10:00 AM EDT Hospital Encounter OR [facility], Operating Room, [facility] - 4th Floor [address] [place] [address] [place] [address] Joshua Orantes MD [address] [place] [address] 11/24/2023 10:00 AM EDT - 11/24/2023 11:15 AM EDT Surgery OR [facility], Operating Room, [facility] - 4th Floor [address] [place] [address] Joshua Orantes MD [address] [place] [address] COLONOSCOPY FLEXIBLE PROXIMAL DIAGNOSTIC 02/20/2024 3:40 PM EDT Office Visit [facility] Disorders Ctr Nikole Reardon [place] [address] [place] [phone] Lynn Busby DO [address] [place] [address] 03/26/2024 1:30 PM EDT Office Visit Nephrology [address] [place] [address] Zemaitis, Ayana Kirkpatrick PA-C [address] [place] [address] 05/01/2024 3:00 PM EDT Office Visit Dermatology [address] [place] [address] Anya Pratt PA-C [address] [place] [address] [place] [address] Scheduled Procedures Name Priority Associated Diagnoses Date/Ti me COLONOSCOPY FLEXIBLE PROXIMA L DIAGNOSTIC History of colonic polyps Gastric ulcer 11/24/2023 10:00 AM EDT ESOPHAGOGASTRODUODENOSCOPY ( EGD), FLEXIBLE, TRANSORAL, DIAGNOSTIC History of colonic polyps Gastric ulcer 11/24/2023 10:00 AM EDT Health Maintenance Due Date Last Done Comments DISCUSS TOBACCO CESSATION (REFER TO SMARTSET #8806) 1940 COVID-19 Vaccine ( season) 2023 06/01/2021, 10/20/2020, 09/15/2020 CKD PHOS USE SMARTSET 22338 12/28/2023 06/12/2022, 04/26/2022, 11/23/2021, Additional history exists Influenza Vaccine (FLU shot) (Season Ended) 2024 GFR 03/15/2024 09/13/2023, 08/31, 09/09/2023, Additional history exists DXA Scan 08/01/2024 08/01/2022, 07/05, 07/07/2020, Additional history exists Depression Screening 08/21/2024 08/21/2023 Albumin/Creatinine Ratio 09/18/2024 024, 08/15/2022, 02/09/2021 CKD HGB USE SMARTSET 42615 09/18/202409/18, 09/11/2023, 09/08/2023, Additional history exists O2 [...] D LEVEL ONCE IN A LIFETIME-USE SMARTSET# 83267 Completed 09/19/2023, 12/27/2022, 08/12/2022, Additional history exists [...] patient or by statute hierarchy) Care Teams Air Hose Coupler Relationship Specialty Start Date End Date Tameka Hooper MD [address] [place] [address] [place] [phone] PCP - General Family Medicine 05/29/19 documented as of this encounter
--- OUTSIDE RECORDS SUMMARY | 2023-10-13 18:18 | External Medical Summary | Summary of Care ---
Author Name Unknown Organization [facility] Address [address] [place] [address] Phone [phone] Care Team Providers Care Separations Scientist Name Role Phone Tameka Hooper MD Primary Care Prov ider Reason for Visit * Reason Onset Date Comments Advice 09/28/2023 Encounter Details Date Type Department Care Team (Late st Contact Info) Description 09/28/2023 Telephone General Surgery, [facility] [address] [place] [address] Rik Saez MD [address] [place] [address] Advice Allergies Active Allergy Reactions Criticality Noted [...] encounter Miscellaneous Notes * Telephone Encounter - Roz Pittman LPN - 10/05/2023 12:12 PM EDT Spoke with Chanelle Everett with [facility] Colorectal, parastomal hernias are definitely NOT seen by Colorectal and patient should be scheduled with the General Surgery Purple team. Bridget Pittman LPN Intake Nurse Navigator General Surgery and Breast Clinic [facility] * Telephone Encounter - Avani Arceo MED ASSIST - 10/02/2023 1:43 PM EDT Pt is scheduled for [place] with Dr Hooks * Telephone Encounter - Delisa Felipe LPN - 10/02/2023 12:39 PM EDT Please call patient and schedule next available at [place] with Dr Rich * Telephone Encounter - Roz Pittman LPN - 09/28/2023 1:40 PM EDT Contacted primary number on chart and spoke with pt's DIL - states that they did not receive a callthis morning about the cancelled appointment, but also states that patient is not seeking surgical correction and just wants the area to be monitored. Also states that patient is at [facility] for the appointment at this time. Provided my direct line for callback when/if they decide to schedule - will offer Dr. Morley at [place], or Drs. Tinoco and Yani at [place], or [facility] if needed. Bridget Pittman LPN Intake Nurse Navigator General Surgery and Breast Clinic [facility] * Telephone Encounter - Delisa Felipe LPN - 09/28/2023 1:21 PM EDT No general surgeon will see this condition but the patient could be scheduled with Dr Rich at [place] as stated * Telephone Encounter - Tiffanie Frank CMA - 09/28/2023 1:17 PM EDT Patient could be seen by Dr Rich in [place]. Or schedule in [place] * Telephone Encounter - Jannette Pacheco LPN - 09/28/2023 8:31 AM EDT Called patient, left a message that dr Saez does not do parastomal hernias and she will have to go to [place] for that. Asked her to call back. documented in this encounter Plan of Treatment Upcoming Encounters Date Type Department Care Team (Latest Contact Info) Description 10/23/2023 2:30 PM EDT Office Visit Rheumatology [address] [place] [phone] Jessica Stubbs CRNP [facility] [place] [address] 10/26/2023 5:30 PM EDT [facility] [address] [place] [address] Jodi Smallwood RN 132 [facility] [place] [address] 10/31/2023 11:20 AM EDT Office Visit Family Medicine [address] [place] [phone] Tameka Hooper MD [address] [place] [address] [place] [address] 10/31/2023 1:00 PM EDT Cardiac Studies Cardiac Studies, [facility] 132 [facility] [place] [address] 11/13/2023 11:00 AM EDT [facility] Visit [facility] [address] [place] [address] Derick Miner PA-C [address] [place] [address] 11/14/2023 1:30 PM EDT Office Visit General Surgery, [facility] [address] [place] [address] Latrice Hooks MD [address] [place], [place] [phone] 11/23/2023 3:00 PM EDT Office Visit Family Medicine [address] [place] [phone] Betsey Cramer[address] [place] [address] 11/24/2023 8:35 AM EDT Hospital Encounter OR [facility], Operating Room, [facility] - 4th Floor 400 [facility] [place] [address] Joshua Orantes MD [address] [place] [address] 11/24/2023 8:35 AM EDT - 11/24/2023 9:50 AM EDT Surgery [facility], Operating Room, [facility] - 4th Floor 400 [facility] [place] [address] Joshua Orantes MD [address] [place] [address] COLONOSCOPY FLEXIBLE PROXIMAL DIAGNOSTIC 02/20/2024 3:40 PM EDT Office [facility] [address] [place] [phone] Lynn Busby DO [address] [place] [address] 03/26/2024 1:30 PM EDT Office Visit Nephrology [address] [place] [address] ZeAyana ladd PA-C [address] [place] [address] 05/01/2024 3:00 PM EDT Office Visit Dermatology [address] [place] [address] Anya Pratt PA-C [address] [place] [address] [place] [address] Scheduled Procedures Name Priority Associated Diagnoses Date/Ti [...] 06/01/2021, 10/20/2020, 09/15/2020 CKD PHOS USE SMARTSET 56969 12/28/202312/02, 04/26/2022, 11/23/2021, Additional history exists Influenza Vaccine (FLU shot) (Season Ended) 2024 GFR 03/15/2024 09/13/2023, 08/31, 09/09/2023, Additional history exists DXA Scan 08/01/2024 08/01/2022, 07/05, 07/07/2020, Additional history exists Depression Screening 08/21/2024 08/21/2023 Albumin/Creatinine Ratio 09/18/2024 024, 08/15/2022, 02/09/2021 CKD HGB USE SMARTSET 75767 09/18/202409/18, 09/11/2023, 09/08/2023, Additional history exists O2 [...] D LEVEL ONCE IN A LIFETIME-USE SMARTSET# [id number] Completed 09/19/2023, 12/27/2022, 08/12/2022, Additional history exists [...] patient or by statute hierarchy) Care Teams Separations Scientist Relationship Specialty Start Date End Date Tameka Hooper MD [address] [place] [address] [place] [phone] PCP - General Family Medicine 05/29/19 documented as of this encounter
--- OUTSIDE RECORDS SUMMARY | 2023-10-13 18:18 | External Medical Summary | Summary of Care ---
Author Name Unknown Organization [facility] Address [address] [place] [facility] [place] [place] [address] Phone [phone] Care Team Providers Care Photoengraving Apprentice Name Role Phone Tameka Hooper MD Primary Care Prov ider Reason for Visit * Reason Onset Date Comments Advice 09/28/2023 Encounter Details Date Type Department Care Team (Late st Contact Info) Description 09/28/2023 Telephone General Surgery, [facility] [address] [place] [address] Rik Saez MD [address] [place] [address] Advice Allergies Active Allergy Reactions Criticality Noted [...] 1:43 PM EDT [facility]s * Telephone Encounter - Delisa Felipe LPN - 10/02/2023 12:39 PM EDT Please call patient and schedule next available at [place] with Dr Rich * Telephone Encounter - Roz Pittman LPN - 09/28/2023 1:40 PM EDT Contacted primary number on chart and spoke with pt's DIL - states that they did not receive a callthis morning about the cancelled appointment, but also states that patient is not seeking surgical correction and just wants the area to be monitored. Also states that patient is at [facility] for the appointment at this time. Provided my direct line for callback when/if they decide to schedule - will offer Dr. Morley at [place], or Drs. Snyder at [place], or [facility] if needed. Bridget Pittman LPN Intake Nurse Navigator General Surgery and Breast Clinic [facility] * Telephone Encounter - Delisa Felipe LPN - 09/28/2023 1:21 PM EDT No general surgeon will see this condition but the patient could be scheduled with Dr Rich at [place] as stated * Telephone Encounter - Tiffanie Frank CMA - 09/28/2023 1:17 PM EDT Patient could be seen by Dr Rich in [place]. Or schedule in [place] * Telephone Encounter - Jannette Pacheco LPN - 09/28/2023 8:31 AM EDT Called patient, left a message that dr Saez does not do parastomal hernias and she will have to go to [place] for that. Asked her to call back. documented in this encounter Plan of Treatment Upcoming Encounters Date Type Department Care Team (Latest Contact Info) Description 10/23/2023 2:30 PM EDT Office Visit Rheumatology [address] [place] [phone] Jessica Stubbs CRNP [address] [place] [address] [place] [address] 10/26/2023 5:30 PM EDT Home Visit [facility] 132 [facility] [place] [address] Jodi [place], [place] 132 [facility] [place] [address] 10/31/2023 11:20 AM EDT Office Visit Family Medicine [address] [place] [phone] Tameka Hooper MD [address] [place] [address] [place] [address] 10/31/2023 1:00 PM EDT Cardiac Studies Cardiac Studies, [facility] [place] [address] 11/13/2023 11:00 AM EDT [facility], [facility] 132 [place] [address] Derick Miner PA-C 132 [place] [address] 11/14/2023 1:30 PM EDT Office Visit General Surgery, [facility] 132 [place] [address] Latrice Hooks MD [address] [place] [address] 11/23/2023 3:00 PM EDT Office Visit Family Medicine [address] [place] [phone] Betsey Cramer [address] [place] [address] 11/24/2023 8:35 AM EDT Hospital Encounter OR [facility], Operating Room, [facility] - 4th Floor 400 [facility] [place] [address] Joshua Orantes MD 132 [place] [address] 11/24/2023 8:35 AM EDT - 11/24/2023 9:50 AM EDT Surgery OR [facility], Operating Room, [facility] - 4th Floor 400 [facility] [place] [address] Joshua Orantes MD 132 [place] [address] COLONOSCOPY FLEXIBLE PROXIMAL DIAGNOSTIC 02/20/2024 3:40 PM EDT Office Visit Sleep Disorders Ctr [facility] 132 [place] [phone] Lynn Busby, DO [address] [place] [address] 03/26/2024 1:30 PM EDT Office Visit Nephrology [address] [place] [address] ZemaAyana hurtado PA-C [address] [place] [address] 05/01/2024 3:00 PM EDT Office Visit Dermatology [address] [place] [address] Anya Pratt PA-C [address] [place] [address] [place] [address] Scheduled Procedures Name Priority Associated Diagnoses Date/Ti [...] 06/01/2021, 10/20/2020, 09/15/2020 CKD PHOS USE SMARTSET 24878 12/28/202312/02, 04/26/2022, 11/23/2021, Additional history exists Influenza Vaccine (FLU shot) (Season Ended) 2024 GFR 03/15/2024 09/13/2023, 08/31, 09/09/2023, Additional history exists DXA Scan 08/01/2024 08/01/2022, 07/05, 07/07/2020, Additional history exists Depression Screening 08/21/2024 08/21/2023 Albumin/Creatinine Ratio 09/18/2024 024, 08/15/2022, 02/09/2021 CKD HGB USE SMARTSET 41936 09/18/202409/18, 09/11/2023, 09/08/2023, Additional history exists O2 [...] D LEVEL ONCE IN A LIFETIME-USE SMARTSET# 10845 Completed 09/19/2023, 12/27/2022, 08/12/2022, Additional history exists [...] patient or by statute hierarchy) Care Teams Photoengraving Apprentice Relationship Specialty Start Date End Date Tameka Hooper MD [address] [place] [address] [place] [address] PCP - General Family Medicine 05/29/19 documented as of this encounter
--- OUTSIDE RECORDS SUMMARY | 2023-10-13 18:18 | External Medical Summary | Summary of Care ---
Author Name Unknown Organization [facility] Address [address] [place] [place] [place] [address] Phone [phone] Care Team Providers Care Accounts Payable Analyst Name Role Phone Tameka Hooper MD Primary Care Prov ider Reason for Visit * Reason Onset Date Comments Advice 09/28/2023 Encounter Details Date Type Department Care Team (Late st Contact Info) Description 09/28/2023 Telephone General Surgery, [facility] [address] [place] [address] Rik Saez MD [address] [place] [address] Advice Allergies Active Allergy Reactions Criticality Noted [...] PM EDT Spoke with Chanelle Everett with [facility] Colorectal, parastomal hernias are definitely NOT seen by Colorectal and patient should be scheduled with the General Surgery Purple team. Bridget Pittman LPN Intake Nurse Navigator General Surgery and Breast Clinic [facility] * Telephone Encounter - Avani Arceo MED ASSIST - 10/02/2023 1:43 PM EDT Pt is scheduled for [place] with Dr Hooks * Telephone Encounter - Delisa Felipe LPN - 10/02/2023 12:39 PM EDT Please call patient and schedule next available at [facility] with Dr Rich * Telephone Encounter - Roz Pittman LPN - 09/28/2023 1:40 PM EDT Contacted primary number on chart and spoke with pt's DIL - states that they did not receive a callthis morning about the cancelled appointment, but also states that patient is not seeking surgical correction and just wants the area to be monitored. Also states that patient is at [facility] for the appointment at this time. Provided my direct line for callback when/if they decide to schedule - will offer Dr. Morley at [place], or Drs. Tinoco and Yani at [place], or [facility] if needed. Bridget Pittman LPN Intake Nurse Navigator General Surgery and Breast Clinic [facility] * Telephone Encounter - Delisa Felipe LPN - 09/28/2023 1:21 PM EDT No general surgeon will see this condition but the patient could be scheduled with Dr Rich at [place] as stated * Telephone Encounter - Tiffanie Frank CMA - 09/28/2023 1:17 PM EDT Patient could be seen by Dr Rich in [place]. Or schedule in [place] * Telephone Encounter - Jannette Pacheco LPN - 09/28/2023 8:31 AM EDT Called patient, left a message that dr Saez does not do parastomal hernias and she will have to go to [place] for that. Asked her to call back. documented in this encounter Plan of Treatment Upcoming Encounters Date Type Department Care Team (Latest Contact Info) Description 10/23/2023 2:30 PM EDT Office Visit Rheumatology [address] [place] [phone] Jessica Stubbs CRNP [facility] [place] [address] 10/26/2023 5:30 PM EDT [facility] [address] [place] [address] Jodi Small[place] RN 132 [facility] [place] [address] 10/31/2023 11:20 AM EDT Office Visit Family Medicine [address] [place] [phone] Tameka Hooper MD [address] [place] [address] [place] [address] 10/31/2023 1:00 PM EDT Cardiac Studies Cardiac Studies, [facility] 132 [facility] [place] [address] 11/13/2023 11:00 AM EDT [facility] Visit [facility] [address] [place] [address] Derick Miner PA-C [address] [place] [address] 11/14/2023 1:30 PM EDT Office Visit General Surgery, [facility] [address] [place] [address] Latrice Hooks MD [address] [place], [place] [phone] 11/23/2023 3:00 PM EDT Office Visit Family Medicine [address] [place] [phone] Betsey Cramer[address] [place] [address] 11/24/2023 8:35 AM EDT Hospital Encounter OR [facility], Operating Room, [facility] - 4th Floor 400 [facility] [place] [address] Joshua Orantes MD [address] [place] [address] 11/24/2023 8:35 AM EDT - 11/24/2023 9:50 AM EDT Surgery OR [facility], Operating Room, [facility] - 4th Floor 400 [facility] [place] [address] Joshua Orantes MD [address] [place] [address] COLONOSCOPY FLEXIBLE PROXIMAL DIAGNOSTIC 02/20/2024 3:40 PM EDT [facility] [address] [place] [phone] Lynn Busby DO [address] [place] [address] 03/26/2024 1:30 PM EDT Office Visit Nephrology [address] [place] [address] ZeAyana ladd PA-C [address] [place] [address] 05/01/2024 3:00 PM EDT Office Visit Dermatology [address] [place] [address] Anya Pratt PA-C [address] [place] [address] [place] [address] Scheduled Procedures Name Priority Associated Diagnoses Date/Ti [...] 06/01/2021, 10/20/2020, 09/15/2020 CKD PHOS USE SMARTSET 35881 12/28/202312/02, 04/26/2022, 11/23/2021, Additional history exists Influenza Vaccine (FLU shot) (Season Ended) 2024 GFR 03/15/2024 09/13/2023, 08/31, 09/09/2023, Additional history exists DXA Scan 08/01/2024 08/01/2022, 07/05, 07/07/2020, Additional history exists Depression Screening 08/21/2024 08/21/2023 Albumin/Creatinine Ratio 09/18/2024 024, 08/15/2022, 02/09/2021 CKD HGB USE SMARTSET 85533 09/18/202409/18, 09/11/2023, 09/08/2023, Additional history exists O2 [...] D LEVEL ONCE IN A LIFETIME-USE SMARTSET# 12563 Completed 09/19/2023, 12/27/2022, 08/12/2022, Additional history exists [...] patient or by statute hierarchy) Care Teams Accounts Payable Analyst Relationship Specialty Start Date End Date Tameka Hooper MD [address] [place] [address] [place] [phone] PCP - General Family Medicine 05/29/19 documented as of this encounter
--- OUTSIDE RECORDS SUMMARY | 2023-10-13 18:18 | External Medical Summary | Summary of Care ---
Author Name Unknown Organization [facility] Address [address] [place] [address] Phone [phone] Care Team Providers Care Kiln Pusher Name Role Phone Tameka Hooper MD Primary Care Prov ider Reason for Visit * Reason Onset Date Comments Advice 09/28/2023 Encounter Details Date Type Department Care Team (Late st Contact Info) Description 09/28/2023 Telephone General Surgery, [facility] [address] [place] [address] Rik Saez MD [address] [place] [address] Advice Allergies Active Allergy Reactions Criticality Noted Date Comments Amoxicillin Rash 02/07/2020 Bactrim Rash 12/15/2011 Ciprofloxacin Rash 12/15/2011 Diltiazem Rash 05/29/2019 Piroxicam Rash 12/15/2011 Cephalexin Rash 12/15/2011 Meloxicam Rash 05/29/2019 Other reaction(s): Other Cilostazol Rash,Unknown 12/15/2011 Sulfamethoxazole High 01/19/2023 Other Reaction(s): Rash Trimethoprim High 01/19/2023 Other Reaction(s): Rash documented as of this encounter (statuses as of 09/28/2023) Medications Medication Sig Dispensed Refills Start Date [...] as of this encounter (statuses as of 09/28/2023) Active Problems Problem Noted Date Diagnosed Date Bilateral pleural effusion 09/06/2023 Interstitial lung disease 09/06/2023 Peristomal hernia 08/31/2023 Nephrolithiasis 08/16/2023 Full code status 08/14/2023 IBD (inflammatory bowel disease) 08/11/2023 Gastrointestinal hemorrhage associated with uabrie loretta ulcer 08/11/2023 Schatzki's ring of distal [...] as of this encounter (statuses as of 09/28/2023) Resolved Problems Problem Noted Date Diagnosed Date [...] as of this encounter (statuses as of 09/28/2023) Immunizations Name Administration Dates Next Due COVID-19 [...] monitored. Also states that patient is at [facility] [place] for the appointment at this time. Provided my direct line for callback when/if they decide to schedule - will offer Dr. Morley at [place], or Drs. Snyder at [place], or [facility] if needed. Bridget Pittman LPN Intake Nurse Navigator General Surgery and Breast Clinic [facility] * Telephone Encounter - Delisa Felipe LPN - 09/28/2023 1:21 PM EDT No general surgeon will see this condition but the patient could be scheduled with Dr Rich at [place] as stated * Telephone Encounter - Tiffanie Frank CMA - 09/28/2023 1:17 PM EDT Patient could be seen by Dr Rich in [place]. Or schedule in [place] * Telephone Encounter - Jannette Pacheco LPN - 09/28/2023 8:31 AM EDT Called patient, left a message that dr Saez does not do parastomal hernias and she will have to go to [place] for that. Asked her to call back. documented in this encounter Plan of Treatment Upcoming Encounters Date Type Department Care Team (Latest Contact Info) Description 10/23/2023 2:30 PM EDT Office Visit Rheumatology [address] [place] [address] Jessica Stubbs CRNP [address] [facility] [place] [address] 10/26/2023 5:30 PM EDT Home Visit [facility] at [facility] [address] [place] [address] Jodi Smallwood, [place] [address] [place] [address] 10/31/2023 11:20 AM EDT Office Visit Family [address] [place] [phone] Tameka Hooper MD [address] [place] [address] [place] [address] 10/31/2023 1:00 PM EDT Cardiac Studies Cardiac Studies, [facility] [address] [place] [address] 11/23/2023 3:00 PM EDT Office Visit [address] [place] [phone] Betsey Cramer CRNP [address] [place] [address] [place] [address] 11/24/2023 10:00 AM EDT Hospital Encounter OR [facility], Operating Room, [facility] - 4th Floor [address] [facility] [place] [address] Joshua Orantes MD [address] [place] [address] 11/24/2023 10:00 AM EDT - 11/24/2023 11:15 AM EDT Surgery OR [facility], Operating Room, [facility] [address] Joshua Orantes MD [address] [place] [address] COLONOSCOPY FLEXIBLE PROXIMAL DIAGNOSTIC 02/20/2024 3:40 PM EDT Office Visit Sleep Disorders Ctr [facility] [address] [place] [phone] Lynn Busby DO [address] [place] [address] 03/26/2024 1:30 PM EDT Office Visit Nephrology [address] [place] [address] Ayana Anna PA-C [address] [place] [address] 05/01/2024 3:00 PM EDT Office Visit Dermatology [address] [place] [address] Anya Pratt PA-C [address] [place] [address] [place] [address] Scheduled Procedures Name Priority Associated Diagnoses Date/Ti [...] 09/15/2020 Influenza Vaccine (FLU shot) (#1) 2023 CKD PHOS USE SMARTSET 61782 12/28/2023/12/2022, 04/26/2022, 11/23/2021, Additional history exists GFR 03/15/2024 09/13/2023, 08/31, 09/09/2023, Additional history exists DXA Scan 08/01/2024 08/01/2022, 07/05, 07/07/2020, Additional history exists Depression Screening 08/21/2024 08/21/2023 Albumin/Creatinine Ratio 09/18/2024 024, 08/15/2022, 02/09/2021 CKD HGB USE SMARTSET 29872 09/18/202409/18, 09/11/2023, 09/08/2023, Additional history exists O2 [...] D LEVEL ONCE IN A LIFETIME-USE SMARTSET# 48820 Completed 09/19/2023, 12/27/2022, 08/12/2022, Additional history exists [...] patient or by statute hierarchy) Care Teams Kiln Pusher Relationship Specialty Start Date End Date Tameka Hooper MD [address] [place] [address] [place] [address] PCP - General Family Medicine 05/29/19 documented as of this encounter
--- OUTSIDE RECORDS SUMMARY | 2023-10-13 18:18 | External Medical Summary | Summary of Care ---
Author Name Unknown Organization [facility] Address [address] [place] [address] Phone [phone] Care Team Providers Care Wedding Photographer Name Role Phone Tameka Hooper MD Primary Care Prov ider Reason for Visit * Reason Onset Date Comments Appointment 09/28/2023 Encounter Details Date Type Department Care Team (Late st Contact Info) Description 09/28/2023 Telephone Family Medicine [address] [phone] Tameka Hooper MD [address] [place], [place] [address] [address] Appointment Allergies Active Allergy Reactions Criticality Noted [...] Encounter - Roz Pittman LPN - 09/28/2023 2:27 PM EDT Images from the original note were not included. Above contact documented in another encounter. [facility] declining to see this type of hernia, and at [facility] this condition is NOT treated by Colorectal, she would need to see General Surgery purple team (will endeavor to keep appt as close as possible via outreach clinics). Appt was declined at this time d/t lack of interest in surgical correction, but pt and family have my direct line for scheduling if the need arises. Bridget Pittman LPN Intake Nurse Navigator General Surgery and Breast Clinic [facility] * Telephone Encounter - Irene Sanders OSA - 09/28/2023 1:43 PM EDT Pt came to [facility] for Gen Surgery appointment, but it was canceled with note saying provider does not treat this issue. Please advise patient on how to proceed. documented in this encounter Plan of Treatment Upcoming Encounters Date Type Department Care Team (Latest Contact Info) Description 10/23/2023 2:30 PM EDT Office Visit Rheumatology [address] [place] [phone] Jessica Stubbs CRNP [address] [place] [address] [place] [address] 10/26/2023 5:30 PM EDT [facility] 132 [facility] [place] [address] Jodi Smallwood, [place]ISLAW 132 [facility] [place] [address] 10/31/2023 11:20 AM EDT Office Visit Family Medicine [address] [place] [phone] Tameka Hooper MD [address] [place] [address] [place] [address] 10/31/2023 1:00 PM EDT Cardiac Studies Cardiac Studies, [facility] [address] [place] [address] 11/23/2023 3:00 PM EDT Office Visit Family Medicine [address] [place] [phone] Betsey Cramer CRNP [address] [place] [address] [place] [address] 11/24/2023 10:00 AM EDT Hospital Encounter OR [facility], Operating Room, [facility] - 4th Floor 400 [place] [address] Joshua Orantes MD [address] [place] [address] 11/24/2023 10:00 AM EDT - 11/24/2023 11:15 AM EDT Surgery OR [facility], Operating Room, [facility] - 4th Floor [address] [place] [address] Joshua Orantes MD [address] [place] [address] COLONOSCOPY FLEXIBLE PROXIMAL DIAGNOSTIC 02/20/2024 3:40 PM EDT Office Visit Sleep Disorders Ctr [facility] [address] [place] [phone] Lynn Busby DO [address] [place] [address] 03/26/2024 1:30 PM EDT Office Visit Nephrology [address] [place] [address] ZemaitisAyana PA-C [address] [facility] [place] [address] 05/01/2024 3:00 PM EDT Office Visit Dermatology [address] [place] [address] Anya Pratt PA-C [address] [place] [address] [place] [address] Scheduled Procedures Name Priority Associated Diagnoses Date/Ti me COLONOSCOPY FLEXIBLE PROXIMA L DIAGNOSTIC History of colonic polyps Gastric ulcer 11/24/2023 10:00 AM EDT ESOPHAGOGASTRODUODENOSCOPY ( EGD), FLEXIBLE, TRANSORAL, DIAGNOSTIC History of colonic polyps Gastric ulcer 11/24/2023 10:00 AM EDT Health Maintenance Due Date Last Done Comments DISCUSS TOBACCO CESSATION (REFER TO SMARTSET #0659) 1940 COVID-19 Vaccine ( season) 2023 06/01/2021, 10/20/2020, 09/15/2020 Influenza Vaccine (FLU shot) (#1) 2023 CKD PHOS USE SMARTSET 07157 12/28/202312/02, 04/26/2022, 11/23/2021, Additional history exists GFR 03/15/2024 09/13/2023, 08/31, 09/09/2023, Additional history exists DXA Scan 08/01/2024 08/01/2022, 07/05, 07/07/2020, Additional history exists Depression Screening 08/21/2024 08/21/2023 Albumin/Creatinine Ratio 09/18/2024 024, 08/15/2022, 02/09/2021 CKD HGB USE SMARTSET 01307 09/18/202409/18, 09/11/2023, 09/08/2023, Additional history exists O2 [...] D LEVEL ONCE IN A LIFETIME-USE SMARTSET# 97767 Completed 09/19/2023, 12/27/2022, 08/12/2022, Additional history exists [...] patient or by statute hierarchy) Care Teams Wedding Photographer Relationship Specialty Start Date End Date Tameka Hooper MD [address] [place] [address] [place] [phone] PCP - General Family Medicine 05/29/19 documented as of this encounter
--- OUTSIDE RECORDS SUMMARY | 2023-10-13 18:18 | External Medical Summary | Summary of Care ---
Author Name Unknown Organization [facility] Address [address] [place] [address] Phone [phone] Care Team Providers Care Web Analyst Name Role Phone Tmaeka Hooper MD Primary Care Prov ider Reason for Visit * Reason Onset Date Comments Advice 09/28/2023 Encounter Details Date Type Department Care Team (Late st Contact Info) Description 09/28/2023 Telephone General Surgery, [facility] [address] [place] [address] Rik Saez MD [address] [place] [address] Advice Allergies Active Allergy Reactions Criticality Noted [...] encounter Miscellaneous Notes * Telephone Encounter - Delisa Felipe LPN - 10/02/2023 12:39 PM EDT Please call patient and schedule next available at [place] with Dr Rich * Telephone Encounter - Roz Pittman LPN - 09/28/2023 1:40 PM EDT Contacted primary number on chart and spoke with pt's DIL - states that they did not receive a callthis morning about the cancelled appointment, but also states that patient is not seeking surgical correction and just wants the area to be monitored. Also states that patient is at [facility] for the appointment at this time. Provided my direct line for callback when/if they decide to schedule - will offer Dr. Morley at [place], or Drs. Tinoco and Yani at [place], or [facility] if needed. Bridget Pittman LPN Intake Nurse Navigator General Surgery and Breast Clinic [facility] * Telephone Encounter - Delisa Felipe LPN - 09/28/2023 1:21 PM EDT No general surgeon will see this condition but the patient could be scheduled with Dr Rich at [place] as stated * Telephone Encounter - Tiffanie Frank CMA - 09/28/2023 1:17 PM EDT Patient could be seen by Dr Rich in [place]. Or schedule in [place] * Telephone Encounter - Jannette Pacheco LPN - 09/28/2023 8:31 AM EDT Called patient, left a message that dr Saez does not do parastomal hernias and she will have to go to [place] for that. Asked her to call back. documented in this encounter Plan of Treatment Upcoming Encounters Date Type Department Care Team (Latest Contact Info) Description 10/23/2023 2:30 PM EDT Office Visit Rheumatology [address] [place] [phone] Jessica Stubbs CRNP [address] [place] [address] [place] [address] 10/26/2023 5:30 PM EDT [facility], [facility] [address] [place] [address] Jodi Smallwood, [place] [address] [place] [address] 10/31/2023 11:20 AM EDT Office Visit Family [address] [phone] Tameka Hooper MD [address] [place] [address] [place] [address] 10/31/2023 1:00 PM EDT Cardiac Studies Cardiac Studies, [facility] [address] [place] [address] 11/23/2023 3:00 PM EDT Office Visit [address] [phone] Betsey Cramer CRNP [address] [place] [address] [place] [address] 11/24/2023 10:00 AM EDT Hospital Encounter OR [facility], Operating Room, [facility] - 4th Floor 400 [facility] [address] Joshua Orantes MD [address] [place] [address] 11/24/2023 10:00 AM EDT - 11/24/2023 11:15 AM EDT Surgery OR [facility], Operating Room, [facility] - 4th Floor [address] [place] [address] Joshua Orantes MD [address] [place] [address] COLONOSCOPY FLEXIBLE PROXIMAL DIAGNOSTIC 02/20/2024 3:40 PM EDT Office Visit Sleep Disorders Ctr [facility] [place] [address] [place] [phone] Lynn Busby, [address] [place] [address] 03/26/2024 1:30 PM EDT Office Visit Nephrology [address] [place] [address] ZemaAyana uhrtado PA-C [address] [place] [address] 05/01/2024 3:00 PM EDT Office Visit Dermatology [address] [place] [address] Anya Pratt PA-C [address] [place] [address] [place] [address] Scheduled Procedures Name Priority Associated Diagnoses Date/Ti [...] 06/01/2021, 10/20/2020, 09/15/2020 CKD PHOS USE SMARTSET 75675 12/28/202312/02, 04/26/2022, 11/23/2021, Additional history exists Influenza Vaccine (FLU shot) (Season Ended) 2024 GFR 03/15/2024 09/13/2023, 08/31, 09/09/2023, Additional history exists DXA Scan 08/01/2024 08/01/2022, 07/05, 07/07/2020, Additional history exists Depression Screening 08/21/2024 08/21/2023 Albumin/Creatinine Ratio 09/18/2024 024, 08/15/2022, 02/09/2021 CKD HGB USE SMARTSET 41671 09/18/202409/18, 09/11/2023, 09/08/2023, Additional history exists O2 [...] D LEVEL ONCE IN A LIFETIME-USE SMARTSET# 17589 Completed 09/19/2023, 12/27/2022, 08/12/2022, Additional history exists [...] patient or by statute hierarchy) Care Teams Web Analyst Relationship Specialty Start Date End Date Tameka Hooper MD [address] [place] [address] [place] [address] PCP - General Family Medicine 05/29/19 documented as of this encounter
--- OUTSIDE RECORDS SUMMARY | 2023-10-13 18:18 | External Medical Summary | Summary of Care ---
Author Name Unknown Organization [facility] Address [address] [place] [address] Phone [phone] Care Team Providers Care Vending Technician Name Role Phone Tameka Hooper MD Primary Care Prov ider Reason for Visit * Reason Onset Date Comments Advice 09/28/2023 Encounter Details Date Type Department Care Team (Late st Contact Info) Description 09/28/2023 Telephone General Surgery, [facility] [address] [place] [address] Rik Saez MD [address] [place] [address] Advice Allergies Active Allergy Reactions Criticality Noted Date Comments Amoxicillin Rash 02/07/2020 Bactrim Rash 12/15/2011 Ciprofloxacin Rash 12/15/2011 Diltiazem Rash 05/29/2019 Piroxicam Rash 12/15/2011 Cephalexin Rash 12/15/2011 Meloxicam Rash 05/29/2019 Other reaction(s): Other Cilostazol Rash,Unknown 12/15/2011 Sulfamethoxazole High 01/19/2023 Other Reaction(s): Rash Trimethoprim High 01/19/2023 Other Reaction(s): Rash documented as of this encounter (statuses as of 10/06/2023) Medications Medication Sig Dispensed Refills Start Date [...] as of this encounter (statuses as of 10/06/2023) Active Problems Problem Noted Date Diagnosed Date [...] as of this encounter (statuses as of 10/06/2023) Resolved Problems Problem Noted Date Diagnosed Date [...] as of this encounter (statuses as of 10/06/2023) Immunizations Name Administration Dates Next Due COVID-19 [...] encounter Miscellaneous Notes * Telephone Encounter - Chanelle Everett LPN - 10/05/2023 2:08 PM EDT When patients come to [facility] for parastomal hernias they get a referral to General Surgery which wouldbe a wasted visit for the patient to come and be told they need to see a General Surgery Doctor to have the hernia repaired. * Telephone Encounter - Roz Pittman LPN - 10/05/2023 12:12 PM EDT Spoke with Chanelle Everett with [facility] Colorectal, parastomal hernias are definitely NOT seen by Colorectal and patient should be scheduled with the General Surgery Purple team. Bridget Pittman LPN Intake Nurse Navigator General Surgery and Breast Clinic [facility] * Telephone Encounter - Avani Arceo MED ASSIST - 10/02/2023 1:43 PM EDT Pt is scheduled for [facility] with Dr Hooks * Telephone Encounter - Delisa Felipe LPN - 10/02/2023 12:39 PM EDT Please call patient and schedule next available at [place] with Dr Rich * Telephone Encounter - Roz Pittman LPN - 09/28/2023 1:40 PM EDT Contacted primary number on chart and spoke with pt's DIL - states that they did not receive a callthis morning about the cancelled appointment, but also states that patient is not seeking surgical correction and just wants the area to be monitored. Also states that patient is at [facility] for the appointment at this time. Provided my direct line for callback when/if they decide to schedule - will offer Dr. Morley at [place], or Drs. Snyder at [place], or [facility] if needed. Bridget Pittman LPN Intake Nurse Navigator General Surgery and Breast Clinic [facility] * Telephone Encounter - Delisa Felipe LPN - 09/28/2023 1:21 PM EDT No general surgeon will see this condition but the patient could be scheduled with Dr Rich at [place] as stated * Telephone Encounter - Tiffanie Frank [facility] - 09/28/2023 1:17 PM EDT Patient could be seen by Dr Rich in [place]. Or schedule in [place] * Telephone Encounter - Jannette Pacheco LPN - 09/28/2023 8:31 AM EDT Called patient, left a message that dr Saez does not do parastomal hernias and she will have to go to [place] for that. Asked her to call back. documented in this encounter Plan of Treatment Upcoming Encounters Date Type Department Care Team (Latest Contact Info) Description 10/23/2023 2:30 PM EDT Office Visit Rheumatology [address] [place] [phone] Jessica Stubbs CRNP [address] [place] [address] [place] [address] 10/26/2023 5:30 PM EDT Home Visit [facility] [address] [place] [address] Jodi Smallwood RN [address] [place] [address] 10/31/2023 11:20 AM EDT Office Visit Family Medicine [address] [place] [phone] Tameka Hooper MD [address] [place] [address] [place] [address] 10/31/2023 1:00 PM EDT Cardiac Studies Cardiac Studies, [facility] [address] [place] [address] 11/13/2023 11:00 AM EDT [facility] Visit [facility] [address] [place] [address] Derick Miner PA-C [address] [place] [address] 11/14/2023 1:30 PM EDT Office Visit General Surgery, [facility] [address] [place] [address] Latrice Hooks MD [address] [place] [address] 11/23/2023 3:00 PM EDT Office Visit Family [address] [place] [phone] Betsey Cramer [address] [place] [address] 11/24/2023 8:35 AM EDT Hospital Encounter OR [facility], Operating Room, [facility] Floor [address] [place] [address] [place] [address] Joshua Orantes MD [address] [place] [address] 11/24/2023 8:35 AM EDT - 11/24/2023 9:50 AM EDT Surgery OR [facility], Operating Room, [facility] Floor [address] [facility] [place] [address] Joshua Orantes MD [address] [place] [address] COLONOSCOPY FLEXIBLE PROXIMAL DIAGNOSTIC 02/20/2024 3:40 PM EDT Office Visit [facility] Disorders [facility]tr [facility] [address] [place] [phone] Lynn Busby DO [address] [place] [address] 03/26/2024 1:30 PM EDT Office Visit Nephrology [address] [place] [address] ZeAyana ladd PA-C [address] [place] [address] 05/01/2024 3:00 PM EDT Office Visit Dermatology [address] [place] [address] Anya Pratt PA-C [address] [place] [address] [place] [address] Scheduled Procedures Name Priority Associated Diagnoses Date/Ti [...] 06/01/2021, 10/20/2020, 09/15/2020 CKD PHOS USE SMARTSET 97611 12/28/202312/02, 04/26/2022, 11/23/2021, Additional history exists Influenza Vaccine (FLU shot) (Season Ended) 2024 GFR 03/15/2024 09/13/2023, 08/31, 09/09/2023, Additional history exists DXA Scan 08/01/2024 08/01/2022, 07/05, 07/07/2020, Additional history exists Depression Screening 08/21/2024 08/21/2023 Albumin/Creatinine Ratio 09/18/2024 024, 08/15/2022, 02/09/2021 CKD HGB USE SMARTSET 07421 09/18/202409/18, 09/11/2023, 09/08/2023, Additional history exists O2 [...] D LEVEL ONCE IN A LIFETIME-USE SMARTSET# 29774 Completed 09/19/2023, 12/27/2022, 08/12/2022, Additional history exists [...] patient or by statute hierarchy) Care Teams Vending Technician Relationship Specialty Start Date End Date Tameka Hooper MD [address] [place] [address] [place] [address] PCP - General Family Medicine 05/29/19 documented as of this encounter
--- OUTSIDE RECORDS SUMMARY | 2023-10-13 18:19 | External Medical Summary | Summary of Care ---
Author Name Unknown Organization [facility] Address [address] [place] [address] Phone [phone] Care Team Providers Care Books Binder Name Role Phone Tameka Hooper MD Primary Care Prov ider Reason for Visit * Reason Onset Date Comments Advice 09/28/2023 Encounter Details Date Type Department Care Team (Late st Contact Info) Description 09/28/2023 Telephone General Surgery, [facility] [address] [place] [address] Rik Saez MD [address] [place] [address] Advice Allergies Active Allergy Reactions Criticality Noted [...] encounter Miscellaneous Notes * Telephone Encounter - Jannette Pacheco LPN - 09/28/2023 8:31 AM EDT Called patient, left a message that dr Saez does not do parastomal hernias and she will have to go to [place] for that. Asked her to call back. documented in this encounter Plan of Treatment Upcoming Encounters Date Type Department Care Team (Latest Contact Info) Description 10/23/2023 2:30 PM EDT Office Visit Rheumatology [address] [place] [phone] Jessica Stubbs CRNP [address] [facility] [place] [address] 10/26/2023 5:30 PM EDT [facility] Visit [facility] [place], [facility] [address] [place] [address] Jodi Smallwood, RN [address] [place] [address] 10/31/2023 11:20 AM EDT Office Visit [address] [phone] Tameka Hooper MD [address] [place] [address] [place] [address] 10/31/2023 1:00 PM EDT Cardiac Studies Cardiac Studies, [facility] [address] [place] [address] 11/23/2023 3:00 PM EDT Office Visit Family [address] [phone] Betsey Cramer CRNP [address] [place] [address] [place] [address] 11/24/2023 10:00 AM EDT Hospital Encounter OR [facility], Operating Room, [facility] - 4th Floor [address] [place] [address] Joshua Orantes MD [address] [place] [address] 11/24/2023 10:00 AM EDT - 11/24/2023 11:15 AM EDT Surgery OR [facility], Operating Room, [facility] - 4th Floor [address] [place] [address] Joshua Orantes MD [address] [place] [address] COLONOSCOPY FLEXIBLE PROXIMAL DIAGNOSTIC 02/20/2024 3:40 PM EDT Office Visit Sleep Disorders Ctr [facility] [address] [place] [phone] Kehinde Lynn Valerio, [address] [place] [address] 03/26/2024 1:30 PM EDT Office Visit Nephrology [address] [place] [address] ZemaitisAayna PA-C [address] [place] [address] 05/01/2024 3:00 PM EDT Office Visit Dermatology [address] [place] [address] Anya Pratt PA-C [address] [place] [address] [place] [address] Scheduled Procedures Name Priority Associated Diagnoses Date/Ti [...] shot) (#1) 2023 CKD PHOS USE SMARTSET 51449 12/28/2023 06/12/2022, 04/26/2022, 11/23/2021, Additional history exists GFR 03/15/2024 09/13/2023, 08/31, 09/09/2023, Additional history exists DXA Scan 08/01/2024 08/01/2022, 07/05, 07/07/2020, Additional history exists Depression Screening 08/21/2024 08/21/2023 Albumin/Creatinine Ratio 09/18/2024 024, 08/15/2022, 02/09/2021 CKD HGB USE SMARTSET 10119 09/18/202409/18, 09/11/2023, 09/08/2023, Additional history exists O2 [...] D LEVEL ONCE IN A LIFETIME-USE SMARTSET# 34949 Completed 09/19/2023, 12/27/2022, 08/12/2022, Additional history exists [...] patient or by statute hierarchy) Care Teams Books Binder Relationship Specialty Start Date End Date Tameka Hooper MD [address] [place] [address] [place] [address] PCP - General Family Medicine 05/29/19 documented as of this encounter
--- OUTSIDE RECORDS SUMMARY | 2023-10-13 18:19 | External Medical Summary | Summary of Care ---
Author Name Unknown Organization [facility] Address [address] [place] [address] Phone [phone] Care Team Providers Care Computer Lab Assistant Name Role Phone Tameka Hooper MD Primary Care Prov ider Reason for Visit * Reason Onset Date Comments Appointment 09/20/2023 Encounter Details Date Type Department Care Team (Late st Contact Info) Description 09/20/2023 Telephone [facility], [facility] [address] [facility] [place] [address] Services, Scheduling [address] [place] [address] Appointment (//) Allergies Active Allergy Reactions Criticality Noted Date Comments Amoxicillin Rash 02/07/2020 Bactrim Rash 12/15/2011 Ciprofloxacin Rash 12/15/2011 Diltiazem Rash 05/29/2019 Piroxicam Rash 12/15/2011 Cephalexin Rash 12/15/2011 Meloxicam Rash 05/29/2019 Other reaction(s): Other Cilostazol Rash,Unknown 12/15/2011 Sulfamethoxazole High 01/19/2023 Other Reaction(s): Rash Trimethoprim High 01/19/2023 Other Reaction(s): Rash documented as of this encounter (statuses as of 09/20/2023) Medications Medication Sig Dispensed Refills Start Date [...] as of this encounter (statuses as of 09/20/2023) Active Problems Problem Noted Date Diagnosed Date [...] as of this encounter (statuses as of 09/20/2023) Resolved Problems Problem Noted Date Diagnosed Date [...] as of this encounter (statuses as of 09/20/2023) Immunizations Name Administration Dates Next Due COVID-19 [...] encounter Miscellaneous Notes * Telephone Encounter - Michaela Diane OSA - 09/20/2023 2:01 PM EDT Per Request to via DAVIAN Smallwood she advised 09/26 at 1:30pm is a good date and time. documented in this encounter Plan of Treatment Upcoming Encounters Date Type Department Care Team (Late st Contact Info) Description 09/27/2023 1:30 PM EDT Telemedicine [facility] [address] [place] [address] Derick Miner PA-C [address] [place] [address] [address] [place] [address] 09/28/2023 1:30 PM EDT Office Visit General Surgery, [facility] [address] [place] [address] Rik Saez MD [address] [place] [address] 10/23/2023 2:30 PM EDT Office Visit Rheumatology [address] [place] [phone] Jessica Stubbs CRNP [address] [place] [address] [place] [address] 10/26/2023 5:30 PM EDT Home Visit [facility] [place], [facility] [address] [place] [address] Jodi Smallwood, STANISLAW [address] [place] [address] 10/31/2023 11:20 AM EDT Office Visit Family Medicine [address] [place] [phone] Tameka Hooper MD [address] [place] [address] [place] [address] 10/31/2023 1:00 PM EDT Cardiac Studies Cardiac Studies, [facility] [address] [address] 11/01/2023 9:30 AM EDT Procedure Only Endoscopy, [facility] [address] [place] [address] Gasper Kim DO [address] [place] [address] 11/01/2023 10:00 AM EDT Procedure Only Endoscopy, [facility] [address] [place] [address] Gasper Kim, DO [address] [place] [address] 11/23/2023 3:00 PM EDT Office Visit Family Medicine [address] [place] [phone] Betsey Cramer [address] [place] [address] 02/20/2024 3:40 PM EDT Office Visit Sleep Disorders Ctr [facility] 132 [facility] [place] [phone] Lynn Busby DO 132 [facility] [place] [address] 03/26/2024 1:30 PM EDT Office Visit Nephrology [address] [place] [address] ZemaitisAyana PA-C 200 [facility] [place] [address] 05/01/2024 3:00 PM EDT Office Visit Dermatology [address] [place] [address] Anya Pratt PA-C [address] [place] [address] [place] [address] Health Maintenance Due Date Last Done Comments DISCUSS TOBACCO CESSATION (REFER TO SMARTSET #7043) 1940 COVID-19 Vaccine ( season) 2023 06/01/2021, 10/20/2020, 09/15/2020 Influenza Vaccine (FLU shot) (#1) 2023 CKD PHOS USE SMARTSET 73576 12/28/202312/02, 04/26/2022, 11/23/2021, Additional history exists GFR 03/15/2024 09/13/2023, 08/31, 09/09/2023, Additional history exists DXA Scan 08/01/2024 08/01/2022, 07/05, 07/07/2020, Additional history exists Depression Screening 08/21/2024 08/21/2023 O2 ASSESSMENT COMPLETED IN PAST YEAR FOR COPD 08/24/2024 08/24/2023 Albumin/Creatinine Ratio 09/18/2024 024, 08/15/2022, 02/09/2021 CKD HGB USE SMARTSET 97914 09/18/202409/18, 09/11/2023, 09/08/2023, Additional history exists COLONOSCOPY-EVERY 5 YRS AGES 18-100 07/31/2028 07/31/2023, 02/23/2022, 02/23/2022, Additional history exists DTaP,Tdap,and Td Vaccines (2 - Td or Tdap) 08/07/2030 08/07/2020 (Not indicated), 09/01/1998 Pneumococcal Vaccine: 65+ Years Completed 05/16/2016, 12/01/2014, 12/01/2013, Additional history exists Zoster Vaccines Discontinued 12/28/2022 VITAMIN D LEVEL ONCE IN A LIFETIME-USE SMARTSET# 57878 Completed 09/19/2023, 12/27/2022, 08/12/2022, Additional history exists [...] patient or by statute hierarchy) Care Teams Computer Lab Assistant Relationship Specialty Start Date End Date Tameka Hooper MD [address] [place] [address] [place] [address] PCP - General Family Medicine 05/29/19 documented as of this encounter
--- OUTSIDE RECORDS SUMMARY | 2023-10-13 18:19 | External Medical Summary | Summary of Care ---
Author Name Unknown Organization [facility] Address [address] [place] [address] Phone [phone] Care Team Providers Care Kilnman Name Role Phone Tameka Hooper MD Primary Care Prov ider Reason for Visit * Reason Onset Date Comments Advice 09/28/2023 Encounter Details Date Type Department Care Team (Late st Contact Info) Description 09/28/2023 Telephone General Surgery, [facility] [address] [place] [address] Rik Saez MD [address] [place] [address] Advice Allergies Active Allergy Reactions Criticality Noted [...] could be scheduled with Dr Rich at [place] as stated * Telephone Encounter - Tiffanie Frank CMA - 09/28/2023 1:17 PM EDT Patient could be seen by Dr Rich in [place]. 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 Asked her to call back. documented in this encounter Plan of Treatment Upcoming Encounters Date Type Department Care Team (Latest Contact Info) Description 10/23/2023 2:30 PM EDT Office Visit Rheumatology [address] [place] [phone] Jessica Stubbs CRNP [address] [place] [address] [place] [address] 10/26/2023 5:30 PM EDT Home Visit [facility] [place], [facility] [address] [place] [address] Jodi Smallwood, STANISLAW [address] [place] [address] 10/31/2023 11:20 AM EDT Office Visit Family Medicine [address] [place] [phone] Tameka Hooper MD [address] [place] [address] [place] [address] 10/31/2023 1:00 PM EDT Cardiac Studies Cardiac Studies, [facility] [address] [place] [address] 11/23/2023 3:00 PM EDT Office Visit Family Medicine [address] [place] [phone] Betsey Cramer CRNP [address] [place] [address] [place] [address] 11/24/2023 10:00 AM EDT Hospital Encounter OR [facility], Operating Room, [facility] - 4th Floor [address] [place] [address] Joshua Orantes MD [address] [place] [address] 11/24/2023 10:00 AM EDT - 11/24/2023 11:15 AM EDT Surgery OR [facility], Operating Room, [facility] - 4th Floor [address] [place] [place] [address] Joshua Orantes MD [address] [place] [address] COLONOSCOPY FLEXIBLE PROXIMAL DIAGNOSTIC 02/20/2024 3:40 PM EDT [facility] [address] [place] [phone] Lynn Busby DO [address] [place] [address] 03/26/2024 1:30 PM EDT Office Visit Nephrology [address] [place] [address] Zemaitis, Ayana Kirkpatrick PA-C [address] [place] [address] 05/01/2024 3:00 PM EDT Office Visit Dermatology [address] [place] [address] Anya Pratt PA-C [address] [place] [address] [place] [address] Scheduled Procedures Name Priority Associated Diagnoses Date/Ti me COLONOSCOPY FLEXIBLE PROXIMA L DIAGNOSTIC History of colonic polyps Gastric ulcer 11/24/2023 10:00 AM EDT ESOPHAGOGASTRODUODENOSCOPY ( EGD), FLEXIBLE, TRANSORAL, DIAGNOSTIC History of colonic polyps Gastric ulcer 11/24/2023 10:00 AM EDT Health Maintenance Due Date Last Done Comments DISCUSS TOBACCO CESSATION (REFER TO SMARTSET #3870) 1940 COVID-19 Vaccine ( season) 2023 06/01/2021, 10/20/2020, 09/15/2020 Influenza Vaccine (FLU shot) (#1) 2023 CKD PHOS USE SMARTSET 49965 12/28/202312/02, 04/26/2022, 11/23/2021, Additional history exists GFR 03/15/2024 09/13/2023, 08/31, 09/09/2023, Additional history exists DXA Scan 08/01/2024 08/01/2022, 07/05, 07/07/2020, Additional history exists Depression Screening 08/21/2024 08/21/2023 Albumin/Creatinine Ratio 09/18/2024 024, 08/15/2022, 02/09/2021 CKD HGB USE SMARTSET 15819 09/18/202409/18, 09/11/2023, 09/08/2023, Additional history exists O2 [...] D LEVEL ONCE IN A LIFETIME-USE SMARTSET# 67974 Completed 09/19/2023, 12/27/2022, 08/12/2022, Additional history exists [...] by patient or by statute hierarchy) Jean Christofer Adult Child Health Care Repr esentative (appointed verbally by patient or by statute hierarchy) Care Teams Kilnman Relationship Specialty Start Date End Date Tameka Hooper MD [address] [place] [address] [place] [address] PCP - General Family Medicine 05/29/19 documented as of this encounter
--- OUTSIDE RECORDS SUMMARY | 2023-10-13 18:19 | External Medical Summary | Summary of Care ---
Author Name Unknown Organization [facility] Address [address] [place] [address] Phone [phone] Care Team Providers Care Livestock Laborer Name Role Phone Tameka Hooper MD Primary Care Prov ider Reason for Visit * Reason Onset Date Comments Home Health 09/22/2023 FYI 09/22/2023 Encounter Details Date Type Department Care Team (Late st Contact Info) Description 09/22/2023 Telephone Family [address] [phone] Tameka Hooper MD [address] [place] [address] [place] [address] Home Health; Allergies Active Allergy Reactions Criticality Noted Date Comments Amoxicillin Rash 02/07/2020 Bactrim Rash 12/15/2011 Ciprofloxacin Rash 12/15/2011 Diltiazem Rash 05/29/2019 Piroxicam Rash 12/15/2011 Cephalexin Rash 12/15/2011 Meloxicam Rash 05/29/2019 Other reaction(s): Other Cilostazol Rash,Unknown 12/15/2011 Sulfamethoxazole High 01/19/2023 Other Reaction(s): Rash Trimethoprim High 01/19/2023 Other Reaction(s): Rash documented as of this encounter (statuses as of 09/27/2023) Medications Medication Sig Dispensed Refills Start Date [...] as of this encounter (statuses as of 09/27/2023) Active Problems Problem Noted Date Diagnosed Date [...] as of this encounter (statuses as of 09/27/2023) Resolved Problems Problem Noted Date Diagnosed Date [...] as of this encounter (statuses as of 09/27/2023) Immunizations Name Administration Dates Next Due COVID-19 [...] encounter Miscellaneous Notes * Telephone Encounter - Nury Argueta LPN - 09/22/2023 11:26 AM EDT PT/OT/ST Eval Start of Care/Continuation Traci, Calling from: [facility] Plan of care: 2 times per week for 2 weeks: Then 1 times a week for 1 weeks Focusing on: strengthening, gait tranining, safety, uti and constipation preventative measures Concerns: no None Symptoms: none Vitals: T 97.1 P 77 RR 16 BP 130/52 SP O2 99 Lung sounds clear Weight n/a Blood sugar n/a Ankle circumference. 23 cm for both ankles Narrative: GENOVEVA Frost calling from [facility] . Call back Margot with any advice or orders at [phone] Advised that additional visit orders will be signed by Dr.Kristen Sergio Cai and to fax to the office for signature documented in this encounter Plan of Treatment Upcoming Encounters Date Type Department Care Team (Latest Contact Info) Description 09/28/2023 1:30 PM EDT Office Visit General Surgery, [facility] [address] [place] [address] Rik Saez MD [address] [place] [address] 10/23/2023 2:30 PM EDT Office Visit Rheumatology [address] [place] [phone] Jessica Stubbs CRNP [address] [place], [place] [address] [address] 10/26/2023 5:30 PM EDT Home Visit [facility] [address] [place] [address] Jodi Smallwood, STANISLAW [address] [place] [address] 10/31/2023 11:20 AM EDT Office Visit Family Medicine [address] [place] [phone] Tameka Hooper MD [address] [place] [address] [place] [address] 10/31/2023 1:00 PM EDT Cardiac Studies Cardiac Studies, [facility] [address] [place] [address] 11/23/2023 3:00 PM EDT Office Visit Family Medicine [address] [phone] [address]sey Cramer [address] [place] [address] 11/24/2023 10:00 AM EDT Hospital Encounter OR [facility], Operating Room, [facility] - 4th Floor [address] [place] [address] Joshua Orantes MD [address] [place] [address] 11/24/2023 10:00 AM EDT - 11/24/2023 11:15 AM EDT Surgery OR [facility], Operating Room, [facility] - 4th Floor [address] [place] [address] Joshua Orantes MD [address] [place] [address] COLONOSCOPY FLEXIBLE PROXIMAL DIAGNOSTIC 02/20/2024 3:40 PM EDT Office Visit Sleep Disorders Ctr [facility] [address] [place] [phone] Lynn Busby DO [address] [place] [address] 03/26/2024 1:30 PM EDT Office Visit Nephrology [address] [place] [address] ZeAyana ladd PA-C [address] [place] [address] 05/01/2024 3:00 PM EDT Office Visit Dermatology [address] [place] [address] Anya Pratt PA-C [address] [place] [address] [place] [address] Scheduled Procedures Name Priority Associated Diagnoses Date/Ti me COLONOSCOPY FLEXIBLE PROXIMA L DIAGNOSTIC History of colonic polyps Gastric ulcer 11/24/2023 10:00 AM EDT ESOPHAGOGASTRODUODENOSCOPY ( EGD), FLEXIBLE, TRANSORAL, DIAGNOSTIC History of colonic polyps Gastric ulcer 11/24/2023 10:00 AM EDT Health Maintenance Due Date Last Done Comments DISCUSS TOBACCO CESSATION (REFER TO SMARTSET #6017) 1940 COVID-19 Vaccine ( season) 2023 06/01/2021, 10/20/2020, 09/15/2020 Influenza Vaccine (FLU shot) (#1) 2023 CKD PHOS USE SMARTSET 53393 12/28/202312/02, 04/26/2022, 11/23/2021, Additional history exists GFR 03/15/2024 09/13/2023, 08/31, 09/09/2023, Additional history exists DXA Scan 08/01/2024 08/01/2022, 07/05, 07/07/2020, Additional history exists Depression Screening 08/21/2024 08/21/2023 Albumin/Creatinine Ratio 09/18/2024 024, 08/15/2022, 02/09/2021 CKD HGB USE SMARTSET 20509 09/18/202409/18, 09/11/2023, 09/08/2023, Additional history exists O2 ASSESSMENT COMPLETED IN PAST YEAR FOR COPD 09/19/2024 09/20/2023 COLONOSCOPY-EVERY 5 YRS AGES 18-100 07/31/2028 07/31/2023, 02/23/2022, 02/23/2022, Additional history exists DTaP,Tdap,and Td Vaccines (2 - Td or Tdap) 08/07/2030 08/07/2020 (Not indicated), 09/01/1998 Pneumococcal Vaccine: 65+ Years Completed 05/16/2016, 12/01/2014, 12/01/2013, Additional history exists Zoster Vaccines Discontinued 12/28/2022 VITAMIN D LEVEL ONCE IN A LIFETIME-USE SMARTSET# [id number] Completed 09/19/2023, 12/27/2022, 08/12/2022, Additional history exists [...] verbally by patient or by statute hierarchy) eJan Beaulieu Adult Child Health Care Repr esentative (appointed verbally by patient or by statute hierarchy) Care Teams Livestock Laborer Relationship Specialty Start Date End Date Tameka Hooper MD [address] [place] [address] [place] [phone] PCP - General Family Medicine 05/29/19 documented as of this encounter
--- OUTSIDE RECORDS SUMMARY | 2023-10-13 18:19 | External Medical Summary | Summary of Care ---
Author Name Unknown Organization [facility] Address [address] [facility] [address] Phone [phone] Care Team Providers Care Finishing Area Operator Name Role Phone Tameka Hooper MD Primary Care Prov ider Reason for Visit * Reason Comments [facility]: Enrollment Encounter Details Date Type Department Care Team (Late st Contact Info) Description 09/20/2023 2:00 PM EDT [facility], [facility] [address] [place] [address] Jodi Smallwood, STANISLAW [address] [place] [address] Advanced care planning/counseling discussion* Allergies Active Allergy Reactions Criticality Noted Date Comments Amoxicillin Rash 02/07/2020 Bactrim Rash 12/15/2011 Ciprofloxacin Rash 12/15/2011 Diltiazem Rash 05/29/2019 Piroxicam Rash 12/15/2011 Cephalexin Rash 12/15/2011 Meloxicam Rash 05/29/2019 Other reaction(s): Other Cilostazol Rash,Unknown 12/15/2011 Sulfamethoxazole High 01/19/2023 Other Reaction(s): Rash Trimethoprim High 01/19/2023 Other Reaction(s): Rash documented as of this encounter (statuses as of 09/21/2023) Medications Medication Sig Dispensed Refills Start Date [...] Ellipta 62.5-25 MCG/ACT Inhalation Aerosol Powder Breath ActivatedIndicati ons:COPD, moderate (HCC) Inhale 1 Puff by mouth daily. 1 puff daily 30 Each 0 09/13/2023 Active Budesonide 0.25 MG/2ML Inhalation Suspension (Pulmicort)Indica tions:COPD, moderate (HCC) INHALE CONTENTS OF ONE VIAL [...] 09/13/2023 Active Furosemide 20 MG Oral Tablet (Lasix)Indication s:Hypertensive kidney disease with stage 3b chronic kidney disease (HCC) Take 1 Tablet by mouth in the morning. for fluid accumulation or weight gain. 90 Tablet 3 09/13/2023 Active guaiFENesin ER 600 MG Oral Tablet Extended Release 12 Hour (Humibid LA) Take 1 Tablet by mouth in the morning and 1 Tablet before bedtime. 60 Tablet 3 09/13/2023 Active Ipratropium-Albut donna 0.5-2.5 (3) MG/3ML Inhalation Solution (Duoneb)Indicatio ns:COPD, moderate (HCC) Inhale 3 mL via nebulizer every 4 hours as needed for Wheezing. 3ml vial in nebuilzer every four hours as needed for wheezing 3 mL 0 09/13/2023 Active Lisinopril 10 MG Oral Tablet (Prinivil)Indicat ions:Hypertensive kidney disease with stage 3b chronic kidney disease (HCC) Take 1 Tablet by mouth in the morning. 30 Tablet 0 09/13/2023 Active Mesalamine 1.2 GM Oral Tablet Delayed Release (Lialda)Indicatio ns:IBD (inflammatory bowel disease) Take 3 Tablets by mouth in the morning. 90 Tablet 0 09/13/2023 Active Pantoprazole Sodium 40 MG Oral Tablet Delayed Release (Protonix)Indicat ions:IBD (inflammatory bowel disease) Take 1 Tablet by [...] 09/13/2023 Active Rivaroxaban 15 MG Oral Tablet (Xarelto)Indicati ons:Chronic atrial fibrillation (HCC) Take 1 Tablet by mouth daily with dinner. 30 Tablet 0 09/13/2023 Active Additional Information Patient taking differently:15 mg Oral DINNER,ON HOLD 09/19/23- PER PCP, Reported on 09/20/2023 Solifenacin Succinate 5 MG Oral Tablet (VESIcare)Indicat [...] morning. 90 Tablet 0 09/13/2023 Active Calcium Carb-Cholecalcife rol 500-10 MG-MCG Oral Tablet Take by mouth. 0 Active Calcium 1000 + D 1000-20 MG-MCG Oral Tablet (Calcium Carb-Cholecalcife rol) Take 1 Tablet by mouth daily. 90 Tablet 2 09/13/2023 4 Discontinue d(Medicatio n List Clean Up) documented as of this encounter (statuses as of 09/21/2023) Active Problems Problem Noted Date Diagnosed Date [...] as of this encounter (statuses as of 09/21/2023) Resolved Problems Problem Noted Date Diagnosed Date [...] as of this encounter (statuses as of 09/21/2023) Immunizations Name Administration Dates Next Due COVID-19 [...] Sign Reading Time Taken Comments Blood Pressure 122/54 09/20/2023 2:01 PM EDT Pulse 70 09/20/2023 2:01 PM EDT Temperature 36.9 C (98.4 F) 09/20/2023 2:01 PM ED T Respiratory Rate 18 09/20/2023 2:01 PM EDT Oxygen Saturation 97% 09/20/2023 2:01 PM EDT Inhaled Oxygen Concentration - - Weight - - Height - - Body Mass Index - - documented in this encounter Progress Notes * Jodi Smallwood RN - 09/20/2023 1:09 PM EDT [facility] Visit Date: 09/20/2023 Time: 1:09 PM Name: Eliazar Beaulieu : 1940 Current Concerns: Patient seen for [facility] enrollment- recent hospitalization at [facility] d/t Influenza A- COPD exacerbation- chronic respiratory failure 08/28/23. Discharged to [facility] for rehab 08/31/23. Discharged home alone 09/14/23. Multiple hospitalizations- due to GI bleed secondary to stomach ulcer, and acute on chronic respiratory failure due to COPD. Lives in mobile home. Has two sons- one who lives local and one who lives in [place]. Local son and patients brother very supportive- assist with getting patient to appointments. Has [facility] for PT/ fills pill boxes PCP appointment yesterday. Xarelto placed on hold until H&H stabilizes. Continue Protonix. Hemoglobin 09/18- 8.6 09/13/23- 8.3 VS wnl Lungs clear but diminished Sob with exertion Oxygen dependence Nebulizer treatments as per order No LE edema noted Voiding without difficulty Bowels wnl- Colostomy Appetite good Taking fluids well APAP prn discomfort Physical Exam: BP 122/54 (BP Site: Right Arm, BP Position: Sitting, BP Cuff Size: Regular) | Pulse 70 | Temp 36.9 C (98.4 F) (Tympanic) | Resp 18 | SpO2 97% Pain 8 Physical Exam Constitutional: Appearance: Normal appearance. Cardiovascular: Rate and Rhythm: Normal rate. Pulses: Normal pulses. Pulmonary: Effort: Pulmonary effort is normal. Abdominal: Palpations: Abdomen is soft. Musculoskeletal: General: Normal range of motion. Skin: General: Skin is warm and dry. Capillary Refill: Capillary refill takes 2 to 3 seconds. Neurological: General: No focal deficit present. Mental Status: She is alert and oriented to person, place, and time. Psychiatric: Mood and Affect: Mood normal. Behavior: Behavior normal. Problems/Symptoms: Review of Systems Constitutional: Negative. HENT: Negative. Eyes: Negative. Respiratory: Positive for shortness of breath. Cardiovascular: Negative. Gastrointestinal: Negative. Colostomy Endocrine: Negative. Genitourinary: Negative. Musculoskeletal: Positive for arthralgias and gait problem. Skin: Negative. Allergic/Immunologic: Negative. Hematological: Negative. Psychiatric/Behavioral: Negative. Medication Reconciliation: (See medication list) Does patient take medications as ordered: Yes- Xarelto taken out of med box by son. HH fills pill box. Patient Well Being: PHQ2/9: No questionnaires available. Within normal limits [facility]-10 Completed this Visit: Yes. [facility]: Reason Completed: Enrollment [facility] ([facility]) Fall Risk Assessment Tool Age 65+: Yes (09/20/231299) Diagnosis (3 or more co-existing): Yes (09/20/231299) Prior history of falls within 3 months: No (09/20/231299) Incontinence: Yes (09/20/231299) Visual impairment: Yes (09/20/231299) Impaired functional mobility: Yes (09/20/231299) Environmental hazards: No (09/20/231299) Poly Pharmacy (4 or more prescriptions - any type): Yes (09/20/231299) Pain affecting level of function: No (09/20/231299) Cognitive impairment: No (09/20/231299) Score - a score of 4 or more is considered at risk for fallin (09/20/231299) [facility]-10 Interventions: Fall education provided, reviewed/provided Fall brochure Advanced Care Planning: Living Will. and Healthcare POA. Patient's Goals of Care: To be able to get around Take care of myself Avoid the hospital Reinforcement/Education: COPD: Pt instructed to: -Call with increased SOB, wheezing, chest tightness, increased cough, increased sputum with change in color or consistency and fever. -Wash hands often -Drink plenty of fluids -Use inhalers as directed, do not stop or skip doses -Avoid stress -Rest when tired or SOB -Avoid triggers -Clean inhalers once a week Reinforced medication regimen. Timing., Dosing., and Purspose. Treatment/Plan: Assisted patient with getting general surgery appointment- hernia- scheduled for next week. Oxygen at 3L via n/c continuous Nebulizer treatments as prescribed Discussed red flags- voices understanding Continue medications as prescribed Keep all upcoming MD appointments Fall precautions Fluids encouraged RN CM follow up in 4 weeks. Home Interventions Provided: Reinforced current Plan of Care, including self-management and medication regimen Patient's 'Red Flags': Increased sob not relieved with nebulizer Weight gain of 2-3 lb/24 hours Productive cough of green/yellow Patient Needs to Remember: Call [facility] with any medical concerns/ red flags Referrals Needed: N/a Follow Up: Is there cellular connectivity/connectivity in the home? Yes Does the patient have internet in the home? Yes Patient encouraged to call the intake phone number for all urgent but not emergent issues. Is the patient new to [employer] [facility] within the last 30 days? Yes, Is this a Transitions of Care visit? Yes, this is the 1st visit. Provider is in agreement with Plan of Care: Yes Scheduled to follow up with patient in 4 weeks. Jodi Luque RN 09/20/2023 1:09 PM documented in this encounter Miscellaneous Notes * ACP (Advance Care Planning) - Jodi Smallwood RN - 09/20/2023 1:47 PM EDT Images from the original note were not included. Patient-centered Communication 09/20/2023 The patient/surrogate voluntarily agreed to participate in advance care planning discussion. They were advised that this is a separate service which may incur out of pocket cost in the form of copayment and/or deductibles. Location: Home Individual(s) present for conversation: Patient Decisions Additional Comments Synopsis SmartLink Most Recent Value Past ~10 years 09/15/2023 12:42 Additional Comments Additional Comments: Ongoing discussion: patient states she already has medical POA/Living Will, and both of her sons have copies of it. Does not want to provide a copy for her chart/doctor. Names both sons: Dagoberto and Juan Daniel, to be her decision makers if she should be unable to speak for herself. 09/15/2023 Ongoing discussion: patient states she already has medical POA/Living Will, and both of her sons have copies of it. Does not want to provide a copy for her chart/doctor. Names both sons: Dagoberto and Juan Daniel, to be her decision makers if she should be unable to speak for herself. Discerning What Matters Most to the Patient: Synopsis [employer] Most Recent Value Past ~10 years 09/15/2023 12:41 Discerning What Matters Most to the Patient Their current SYMPTOMS include: Shortnes of breath 08/21/2023 The patient thinks COMPLICATIONS in the future may be: More hospitalizations 09/15/2023 More hospitalizations Was PROGNOSIS discussed? No 09/15/2023 No The patient's FEARS/WORRIES about illness are: Going to a shelter 08/21/2023 Source: Content from [employer] Aligning Care With What Matters Most: No data to display Rationale for Decisions Source: Content from [employer] 20 minutes spent in direct [id number] discussion today, Jodi Luque, RN documented in this encounter Plan of Treatment Upcoming Encounters Date Type Department Care Team (Late st Contact Info) Description 09/27/2023 1:30 PM EDT Telemedicine [facility] [address] [place] [address] Derick Miner PA-C [address] [place] [address] Valentina Barrera, [facility] [address] [place] [address] 09/28/2023 1:30 PM EDT Office Visit General Surgery, [facility] [address] [place] [address] Rik Saez MD [address] [place] [address] 10/23/2023 2:30 PM EDT Office Visit Rheumatology [address] [place] [phone] Jessica Stubbs CRNP [address] [place] [address] [place] [address] 10/26/2023 5:30 PM EDT [facility] Visit [facility], [facility] [address] [facility] [place] [place] [address] Jodi Smallwood, STANISLAW [address] [place] [address] 10/31/2023 11:20 AM EDT Office Visit [address], [place] [phone] Tameka Hooper MD [address] [place] [address] [place] [address] 10/31/2023 1:00 PM EDT Cardiac Studies Cardiac Studies, [facility] [address] [facility] [place] [address] 11/01/2023 9:30 AM EDT Procedure Only Endoscopy, [facility] [address] [place] [address] Gasper Kim, DO [address] [place] [address] 11/01/2023 10:00 AM EDT Procedure Only Endoscopy, [facility] [address] [place] [address] Gasper Kim, DO [address] [place] [address] 11/23/2023 3:00 PM EDT Office Visit Family [address] [phone] Betsey Cramer CRNP [address] [place] [address] [place] [address] 02/20/2024 3:40 PM EDT Office Visit Sleep Disorders Ctr [facility] [address] [place] [phone] Lynn Busby, [address] [place] [address] 03/26/2024 1:30 PM EDT Office Visit Nephrology [address] [place] [address] Ayana Anna PA-C [address] [place] [address] 05/01/2024 3:00 PM EDT Office Visit Dermatology [address] [place] [address] Anya Pratt PA-C [address] [place] [address] [place] [address] Health Maintenance Due Date Last Done Comments DISCUSS TOBACCO CESSATION (REFER TO SMARTSET #3290) 1940 COVID-19 Vaccine ( season) 2023 06/01/2021, 10/20/2020, 09/15/2020 Influenza Vaccine (FLU shot) (#1) 2023 CKD PHOS USE SMARTSET 13982 12/28/202312/02, 04/26/2022, 11/23/2021, Additional history exists GFR 03/15/2024 09/13/2023, 08/31, 09/09/2023, Additional history exists DXA Scan 08/01/2024 08/01/2022, 07/05, 07/07/2020, Additional history exists Depression Screening 08/21/2024 08/21/2023 Albumin/Creatinine Ratio 09/18/2024 024, 08/15/2022, 02/09/2021 CKD HGB USE SMARTSET 13797 09/18/202409/18, 09/11/2023, 09/08/2023, Additional history exists O2 [...] D LEVEL ONCE IN A LIFETIME-USE SMARTSET# 19057 Completed 09/19/2023, 12/27/2022, 08/12/2022, Additional history exists [...] as of this encounter Visit Diagnoses Diagnosis Advanced care planning/counseling discussion- Primary Other specified counseling documented in this encounter Advance Directives Healthcare Agents on File Name Relationship Healthcare Agent Relationshi p Communication Juan Daniel Beaulieu Adult Child Health Care Repr esentative (appointed verbally by patient or by statute hierarchy) Jean Beaulieu Adult Child Health Care Repr esentative (appointed verbally by patient or by statute hierarchy) Care Teams Finishing Area Operator Relationship Specialty Start Date End Date Tameka Hooper MD [address] [place] [address] [place] [address] PCP - General Family Medicine 05/29/19 documented as of this encounter"
--- OUTSIDE RECORDS SUMMARY | 2023-10-13 18:19 | External Medical Summary | Summary of Care ---
Author Name Unknown Organization [facility] Address [address] [place] [address] Phone [phone] Care Team Providers Care Student Accounts Coordinator Name Role Phone Tameka Hooper MD Primary Care Prov ider Reason for Visit * Reason Onset Date Comments Advice 09/28/2023 Encounter Details Date Type Department Care Team (Late st Contact Info) Description 09/28/2023 Telephone General Surgery, [facility] [address] [place] [address] Rik Saez MD [address] [place] [address] Advice Allergies Active Allergy Reactions Criticality Noted [...] and she will have to go to [place] for that. Asked her to call back. documented in this encounter Plan of Treatment Upcoming Encounters Date Type Department Care Team (Latest Contact Info) Description 09/28/2023 1:30 PM EDT Office Visit General Surgery, [facility] [address] [place] [address] Rik Saez MD [address] [place] [address] 10/23/2023 2:30 PM EDT Office Visit Rheumatology [address] [place] [phone] Jessica Stubbs CRNP [address] [place] [address] [place] [address] 10/26/2023 5:30 PM EDT [facility] Visit [facility] [place], [facility] [address] [place] [address] Jodi Smallwood RN [address] [place] [address] 10/31/2023 11:20 AM EDT Office Visit Family [address] [place] [phone] Tameka Hooper MD [address] [place] [address] [place] [address] 10/31/2023 1:00 PM EDT Cardiac Studies Cardiac Studies, [facility] [address] [place] [address] 11/23/2023 3:00 PM EDT Office Visit Family [address] [place] [phone] Betsey Cramer CRNP [address] [place] [address] [place] [address] 11/24/2023 10:00 AM EDT Hospital Encounter OR [facility], Operating Room, [facility] - 4th Floor [address] [facility] [place] [phone] Joshua Orantes MD [address] [place] [address] 11/24/2023 10:00 AM EDT - 11/24/2023 11:15 AM EDT Surgery OR [facility], Operating Room, [facility] - 4th Floor [address] [place] [address] Joshua Orantes MD [address] [place] [address] COLONOSCOPY FLEXIBLE PROXIMAL DIAGNOSTIC 02/20/2024 3:40 PM EDT Office Visit Sleep Disorders Ctr [facility] [address] [place] [phone] Lynn Busby DO [address] [place] [address] 03/26/2024 1:30 PM EDT Office Visit Nephrology [address] [place] [address] Zemaitis, Ayana Kirkpatrick PA-C [address] [place] [address] 05/01/2024 3:00 PM EDT Office Visit Dermatology [address] [place] [address] Anya Pratt PA-C [address] [place] [address] [place] [address] Scheduled Procedures Name Priority Associated Diagnoses Date/Ti me COLONOSCOPY FLEXIBLE PROXIMA L DIAGNOSTIC History of colonic polyps Gastric ulcer 11/24/2023 10:00 AM EDT ESOPHAGOGASTRODUODENOSCOPY ( EGD), FLEXIBLE, TRANSORAL, DIAGNOSTIC History of colonic polyps Gastric ulcer 11/24/2023 10:00 AM EDT Health Maintenance Due Date Last Done Comments DISCUSS TOBACCO CESSATION (REFER TO SMARTSET #8975) 1940 COVID-19 Vaccine ( season) 2023 06/01/2021, 10/20/2020, 09/15/2020 Influenza Vaccine (FLU shot) (#1) 2023 CKD PHOS USE SMARTSET 57061 12/28/202312/02, 04/26/2022, 11/23/2021, Additional history exists GFR 03/15/2024 09/13/2023, 08/31, 09/09/2023, Additional history exists DXA Scan 08/01/2024 08/01/2022, 07/05, 07/07/2020, Additional history exists Depression Screening 08/21/2024 08/21/2023 Albumin/Creatinine Ratio 09/18/2024 024, 08/15/2022, 02/09/2021 CKD HGB USE SMARTSET 81860 09/18/202409/18, 09/11/2023, 09/08/2023, Additional history exists O2 [...] D LEVEL ONCE IN A LIFETIME-USE SMARTSET# 05903 Completed 09/19/2023, 12/27/2022, 08/12/2022, Additional history exists [...] patient or by statute hierarchy) Care Teams Student Accounts Coordinator Relationship Specialty Start Date End Date Tameka Hooper MD [address] [place] [address] [place] [address] PCP - General Family Medicine 05/29/19 documented as of this encounter
--- OUTSIDE RECORDS SUMMARY | 2023-10-13 18:19 | External Medical Summary | Summary of Care ---
Author Name Unknown Organization [facility] Address [address] [place] [address] Phone [phone] Care Team Providers Care Drywall Applicator Name Role Phone Tameka Hooper MD Primary Care Prov ider Reason for Visit * Reason Onset Date Comments Test Results 09/21/2023 Encounter Details Date Type Department Care Team (Late st Contact Info) Description 09/21/2023 Telephone Family Medicine [address] [phone] Tameka Hooper MD [address] [place], [place] [address] [address] Test Results Allergies Active Allergy Reactions Criticality Noted Date [...] encounter Miscellaneous Notes * Telephone Encounter - Cari Hewitt RN - 09/28/2023 8:40 AM EDT Patient notified Reason for Call: Test Results Contact: Telephone Call Contact Type: Test Results Outcome: see note Face to face time spent with Patient (minutes): 0 Total Time including non face to face (minutes): 10 * Telephone Encounter - Sergio Cai, Tameka Ang MD - 09/21/2023 1:25 PM EDT Please let her know her blood counts are IMPROVING, so she can RESTART Xarelto now. Everything else looks good/ stable. documented in this encounter Plan of Treatment Upcoming Encounters Date Type Department Care Team (Latest Contact Info) Description 09/28/2023 1:30 PM EDT Office Visit General Surgery, [facility] [place] [address] Rik Saez MD 132 [facility] [place] [address] 10/23/2023 2:30 PM EDT Office Visit Rheumatology [address] [place] [phone] Jessica Stubbs CRNP [address] [place] [address] [place] [address] 10/26/2023 5:30 PM EDT Home Visit [facility] [place] [address] Jodi Smallwood, STANISLAW [address] [place] [address] 10/31/2023 11:20 AM EDT Office Visit Family Medicine [address] [place] [phone] Tameka Hooper MD [address] [place] [address] [place] [address] 10/31/2023 1:00 PM EDT Cardiac Studies Cardiac Studies, [facility] [address] [place] [address] 11/23/2023 3:00 PM EDT Office Visit Family Medicine [address] [place] [phone] Betsey Cramer CRNP [address] [place] [address] [place] [address] 11/24/2023 10:00 AM EDT Hospital Encounter OR [facility], Operating Room, [facility] - 4th Floor [address] [place] [address] Joshua Orantes MD [address] [place] [address] 11/24/2023 10:00 AM EDT - 11/24/2023 11:15 AM EDT Surgery OR [facility], Operating Room, [facility] - 4th Floor [address] [place] [address] Joshua Orantes MD [address] [place] [address] COLONOSCOPY FLEXIBLE PROXIMAL DIAGNOSTIC 02/20/2024 3:40 PM EDT Office Visit Sleep Disorders Ctr [facility] [place] [address] [place] [phone] Lynn Busby DO [address] [place] [address] 03/26/2024 1:30 PM EDT Office Visit Nephrology [address] [place] [address] ZemaitisAyana PA-C [address] [place] [address] 05/01/2024 3:00 PM EDT Office Visit Dermatology [address] [place] [address] Anya Pratt PA-C [address] [place] [address] [place] [address] Scheduled Procedures Name Priority Associated Diagnoses Date/Ti me COLONOSCOPY FLEXIBLE PROXIMA L DIAGNOSTIC History of colonic polyps Gastric ulcer 11/24/2023 10:00 AM EDT ESOPHAGOGASTRODUODENOSCOPY ( EGD), FLEXIBLE, TRANSORAL, DIAGNOSTIC History of colonic polyps Gastric ulcer 11/24/2023 10:00 AM EDT Health Maintenance Due Date Last Done Comments DISCUSS TOBACCO CESSATION (REFER TO SMARTSET #9219) 1940 COVID-19 Vaccine ( season) 2023 06/01/2021, 10/20/2020, 09/15/2020 Influenza Vaccine (FLU shot) (#1) 2023 CKD PHOS USE SMARTSET 47217 12/28/2023/12/2022, 04/26/2022, 11/23/2021, Additional history exists GFR 03/15/2024 09/13/2023, 08/31, 09/09/2023, Additional history exists DXA Scan 08/01/2024 08/01/2022, 07/05, 07/07/2020, Additional history exists Depression Screening 08/21/2024 08/21/2023 Albumin/Creatinine Ratio 09/18/2024 024, 08/15/2022, 02/09/2021 CKD HGB USE SMARTSET 19178 09/18/202409/18, 09/11/2023, 09/08/2023, Additional history exists O2 [...] D LEVEL ONCE IN A LIFETIME-USE SMARTSET# 72040 Completed 09/19/2023, 12/27/2022, 08/12/2022, Additional history exists [...] patient or by statute hierarchy) Care Teams Drywall Applicator Relationship Specialty Start Date End Date Tameka Hooper MD [address] [place] [address] [place] [address] PCP - General Family Medicine 05/29/19 documented as of this encounter
--- OUTSIDE RECORDS SUMMARY | 2023-10-13 18:19 | External Medical Summary | Summary of Care ---
Author Name Unknown Organization [facility] Address [address] [place] [address] Phone [phone] Care Team Providers Care Regional Account Executive Name Role Phone Tameka Hooper MD Primary Care Prov ider Reason for Visit * Reason Onset Date Comments Advice 09/28/2023 Encounter Details Date Type Department Care Team (Late st Contact Info) Description 09/28/2023 Telephone General Surgery, [facility] [address] [place] [address] Rik Saez MD [address] [place] [address] Advice Allergies Active Allergy Reactions Criticality Noted [...] encounter Miscellaneous Notes * Telephone Encounter - Tiffanie Frank CMA - 09/28/2023 1:17 PM EDT Patient could be seen by Dr Rich in [place]. Or schedule in [place] * Telephone Encounter - Jannette Pacheco LPN - 09/28/2023 8:31 AM EDT Called patient, left a message that dr Saez does not do parastomal hernias and she will have to go to [facility] for that. Asked her to call back. documented in this encounter Plan of Treatment Upcoming Encounters Date Type Department Care Team (Latest Contact Info) Description 10/23/2023 2:30 PM EDT Office Visit Rheumatology [address] [place] [phone] Jessica Stubbs CRNP [address] [place] [address] [place] [address] 10/26/2023 5:30 PM EDT [facility] [address] [place] [address] Jodi Smallwood RN [address] [facility] [place] [address] 10/31/2023 11:20 AM EDT Office Visit Family Medicine [address] [place] [address] Tameka Hooper MD [address] [place] [address] [place] [address] 10/31/2023 1:00 PM EDT Cardiac Studies Cardiac Studies, [facility] [address] [facility] [place] [address] 11/23/2023 3:00 PM EDT Office Visit Family [address] [place] [phone] Betsey Cramer CRNP [address] [place] [address] [place] [address] 11/24/2023 10:00 AM EDT Hospital Encounter OR GL, Operating Room, [facility] - 4th Floor [address] [facility] [place] [address] Joshua Orantes MD 132 [facility] [place] [address] 11/24/2023 10:00 AM EDT - 11/24/2023 11:15 AM EDT Surgery OR [facility], Operating Room, [facility] - 4th Floor [address] [place] [address] Joshua Orantes MD [address] [place] [address] COLONOSCOPY FLEXIBLE PROXIMAL DIAGNOSTIC 02/20/2024 3:40 PM EDT [facility] [address] [place] [phone] Lynn Busby DO [address] [place] [address] 03/26/2024 1:30 PM EDT Office Visit Nephrology [address] [place] [address] Zemaitis, Ayana Kirkpatrick PA-C [address] [place] [address] 05/01/2024 3:00 PM EDT Office Visit Dermatology [address] [place] [address] Anya Pratt PA-C [address] [place] [address] [place] [address] Scheduled Procedures Name Priority Associated Diagnoses Date/Ti me COLONOSCOPY FLEXIBLE PROXIMA L DIAGNOSTIC History of colonic polyps Gastric ulcer 11/24/2023 10:00 AM EDT ESOPHAGOGASTRODUODENOSCOPY ( EGD), FLEXIBLE, TRANSORAL, DIAGNOSTIC History of colonic polyps Gastric ulcer 11/24/2023 10:00 AM EDT Health Maintenance Due Date Last Done Comments DISCUSS TOBACCO CESSATION (REFER TO SMARTSET #5053) 1942 COVID-19 Vaccine ( season) 2023 06/01/2021, 10/20/2020, 09/15/2020 Influenza Vaccine (FLU shot) (#1) 2023 CKD PHOS USE SMARTSET 90031 12/28/202312/02, 04/26/2022, 11/23/2021, Additional history exists GFR 03/15/2024 09/13/2023, 08/31, 09/09/2023, Additional history exists DXA Scan 08/01/2024 08/01/2022, 07/05, 07/07/2020, Additional history exists Depression Screening 08/21/2024 08/21/2023 Albumin/Creatinine Ratio 09/18/2024 024, 08/15/2022, 02/09/2021 CKD HGB USE SMARTSET 67736 09/18/202409/18, 09/11/2023, 09/08/2023, Additional history exists O2 [...] D LEVEL ONCE IN A LIFETIME-USE SMARTSET# 10720 Completed 09/19/2023, 12/27/2022, 08/12/2022, Additional history exists [...] patient or by statute hierarchy) Care Teams Regional Account Executive Relationship Specialty Start Date End Date Tameka Hooper MD [address] [place] [address] [place] [address] PCP - General Family Medicine 05/29/19 documented as of this encounter
[2023-10-13] MEDS: RIVAROXABAN 15 MG TAB PO SCH (18:20)
--- OUTSIDE RECORDS SUMMARY | 2023-10-13 18:20 | External Medical Summary | Summary of Care ---
Author Name Unknown Organization [facility] Address [address] [place] [address] Phone [phone] Care Team Providers Care Tattooer Name Role Phone Tameka Hooper MD Primary Care Prov ider Reason for Referral * Evaluate & Treat - Unlimited Visits (Within 10 days (routine)) - Authorized Specialty Diagnoses / Procedures Referred By Alba t Referred To Contact HOME CARE / [facility] Diagnoses Hypertensive kidney disease with stage 3b chronic kidney disease (HCC) Hospital discharge follow-up Parastomal hernia without obstruction or gangrene Paroxysmal atrial fibrillation (HCC) Colostomy status (HCC) COPD, moderate (HCC) Chronic atrial fibrillation (HCC) Gastrointestinal hemorrhage associated with gastric ulcer Tameka Hooper MD [address] [place] [address] [place] [address] Referral ID Status Reason Start Date Expiration Date Visits Requested Visits Authorized [id number] Authorized Specialty Services Required 09/19/[phone] Question Answer Referral Priority Within 10 days (routine) Where should this appointment be scheduled? [facility] Does patient have multiple co-morbid conditions? Yes Does patient have [facility] insurance? Yes Comments Is referral coming from Care Coordination and Integration? 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 [facility] What condition is the patient being seen for? All other conditions Comments Parastomal hernia Reason for Visit * Reason Onset Date Comments Hospital Follow-Up Hospital Follow-Up 09/19/2023 Encounter Details Date Type Department Care Team (Late st Contact Info) Description 09/19/2023 9:40 AM EDT Office Visit Family Medicine [address] [place] [address] Tameka Hooper MD [address] [place] [address] [place] [address] Hospital discharge follow-up*; Hypertensive kidney disease with stage 3b chronic kidney disease (HCC); Parastomal hernia without obstruction or gangrene; Paroxysmal atrial fibrillation (HCC); Colostomy status (HCC); COPD, moderate (HCC); Chronic atrial fibrillation (HCC); Gastrointestinal hemorrhage associated with gastric ulcer; Senile osteoporosis Allergies Active Allergy Reactions Criticality Noted Date Comments Amoxicillin Rash 02/07/2020 Bactrim Rash 12/15/2011 Ciprofloxacin Rash 12/15/2011 Diltiazem Rash 05/29/2019 Piroxicam Rash 12/15/2011 Cephalexin Rash 12/15/2011 Meloxicam Rash 05/29/2019 Other reaction(s): Other Cilostazol Rash,Unknown 12/15/2011 Sulfamethoxazole High 01/19/2023 Other Reaction(s): Rash Trimethoprim High 01/19/2023 Other Reaction(s): Rash documented as of this encounter (statuses as of 09/19/2023) Medications Medication Sig Dispensed Refills Start Date [...] as ordered., Informant: Patient, Reported on 09/15/2023 Calcium 1000 + D 1000-20 MG-MCG Oral Tablet (Calcium Carb-Cholecalcifero l) Take 1 Tablet by mouth daily. 90 Tablet 2 09/13/2023 Active Escitalopram Oxalate 10 MG Oral Tablet (Lexapro) [...] with dinner. 30 Tablet 0 09/13/2023 Active Solifenacin Succinate 5 MG Oral Tablet [...] the morning. 90 Tablet 0 09/13/2023 Active documented as of this encounter (statuses as of 09/19/2023) Active Problems Problem Noted Date Diagnosed Date [...] as of this encounter (statuses as of 09/19/2023) Resolved Problems Problem Noted Date Diagnosed Date [...] as of this encounter (statuses as of 09/19/2023) Immunizations Name Administration Dates Next Due COVID-19 [...] Sign Reading Time Taken Comments Blood Pressure 112/60 09/19/2023 9:31 AM EDT Pulse 88 09/19/2023 9:31 AM EDT Temperature 36 C (96.8 F) 09/19/2023 9:31 AM EDT Respiratory Rate - - Oxygen Saturation - - Inhaled Oxygen Concentration - - Weight 71.8 kg (158 lb 3.2 oz) 09/19/2023 9:31 A M EDT Height - - Body Mass Index 34.23 08/24/2023 2:30 PM EST documented in this encounter Progress Notes * Tameka Hooper MD - 09/19/2023 9:52 AM EDT SUBJECTIVE: Eliazar Beaulieu is a 83 year old female. Chief Complaint Patient presents with Hospital Follow-Up Hospital Follow-Up Recent Admission: Patient was recently admitted to [facility] 08/28/23 and then [facility] 08/31/23. The date of discharge was 09/13/23. Discharge report received and reviewed. HPI: Eliazar is here for hospital discharge follow up. She was admitted to [facility] for COPD with respiratory failure due to concomitant Influenza A infection. This was her 3rd hospitalization in 2023, previous were for acute GI bleed 2/2 stomach ulcer, and then second hospitalization was for acute on chronic respiratory failure due to COPD and CHF. TODAY: She has [facility] in now to do pill box and PT at home She is wearing 3 L oxygen Son is with her today , but from [place] and going back home today. Her Brother will assist her in apt's Parastoma hernia - needs referral to Colorectal Surgery Smoking - Did relapse and is smoking 1-3 cigarettes per day since she got home. Wants to quit. Doeshave lollipops at home. FRANCIS - Not currently using CPAP as her machine broke. Anemia - recent gastric ulcer bleed in July. H/H is trending down. Last 02/26. Taking protonix. Is on blood thinners - xarelto. Calcium dosing - 1000 or 500mg? Patient Active Problem List Diagnosis Code 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[facility]) G47.33, J44.9 Macular degeneration H35.30 S/P bilateral cataract extraction Z98.41, Z98.42 Colostomy status ([facility]) Z93.3 Paroxysmal atrial fibrillation ([facility]) I48.0 H/O resection of large bowel Z90.49 Diverticulosis of large intestine without hemorrhage K57.30 Mixed hyperlipidemia E78.2 Tobacco use disorder F17.200 Chronic bilateral low back pain without sciatica M54.50, G89.29 DDD (degenerative disc disease), lumbar M51.36 Stage 3b chronic kidney disease N18.32 Senile osteoporosis M81.0 Major depressive disorder with single episode, in full remission ([facility]) F32.5 Hypoparathyroidism ([facility]) E20.9 Chronic hypoxemic respiratory failure ([facility]) J96.11 History of healed osteoporosis fracture Z87.310 Essential (primary) hypertension I10 COPD, group B, by GOLD 2017 classification ([facility]) J44.9 Hypertensive kidney disease with stage 3b chronic kidney disease (HCC) I12.9, N18.32 Other specified peripheral vascular diseases (HCC) I73.89 Hx of actinic keratosis Z87.2 IBD (inflammatory bowel disease) K52.9 Gastrointestinal hemorrhage associated with gastric ulcer K25.4 Schatzki's ring of distal esophagus K22.2 Hiatal hernia K44.9 Full code status Z78.9 Nephrolithiasis N20.0 Peristomal hernia K46.9 Bilateral pleural effusion J90 Interstitial lung disease (HCC) J84.9 Current Outpatient Medications Medication Sig Dispense Refill oxygen IN GAS Use 3 L/min(Oxygen) as directed. Use with activity and sleep and at rest if 02 sat <92% Compressor Nebulizer Inhale via nebulizer . Use as directed. 1 Each 1 Acetaminophen 325 MG Oral Tablet (Tylenol) Take 1 Tablet by mouth every 6 hours as needed for Pain,Mild, Fever >38C(100.5F), Pain, Moderate or Pain, Severe. Pt takes 1/2 tab daily 100 Tablet 5 Albuterol Sulfate HFA 108 (90 Base) MCG/ACT Inhalation Aerosol Solution INHALE 2 PUFFS BY MOUTH NEEDED FOR COUGH, SHORTNESS OF BREATH OR WHEEZING. 18 g 0 Anoro Ellipta 62.5-25 MCG/ACT Inhalation Aerosol Powder Breath Activated Inhale 1 Puff by mouth daily. 1 puff daily 30 Each 0 Budesonide 0.25 MG/2ML Inhalation Suspension (Pulmicort) INHALE CONTENTS OF ONE VIAL (2ML) TWICE DAILY (Patient taking differently: INHALE CONTENTS OF ONE VIAL (2ML) TWICE DAILY 09/15/23: was only using once a day, will start using twice a day as ordered.) 60 mL 4 Calcium 1000 + D 1000-20 MG-MCG Oral Tablet (Calcium Carb-Cholecalciferol) Take 1 Tablet by mouth daily. 90 Tablet 2 Escitalopram Oxalate 10 MG Oral Tablet (Lexapro) Take 1 Tablet by mouth in the morning. 90 Tablet 1 Ferrous Sulfate 325 (65 Fe) MG Oral Tablet (Feosol) TAKE 1 TABLET BY MOUTH EVERY DAY WITH [id number] Tablet 1 Fish Oil 500 MG Oral Capsule Take 1 Capsule by mouth in the morning. Take by mouth.. 90 Capsule 3 Furosemide 20 MG Oral Tablet (Lasix) Take [...] as needed for wheezing 3 mL 0 Lisinopril 10 MG Oral Tablet (Prinivil) Take 1 Tablet by mouth in the morning. 30 Tablet 0 Mesalamine 1.2 GM Oral Tablet Delayed Release (Lialda) Take 3 Tablets by mouth in the morning. 90 Tablet 0 Pantoprazole Sodium 40 MG Oral Tablet Delayed Release (Protonix) Take 1 Tablet by mouth in the morning. 30 Tablet 0 PreserVision AREDS 2 Oral Tablet Chewable Take 1 Tablet by mouth daily. 90 Tablet 0 Restasis 0.05 % Ophthalmic Emulsion Instill 1 Drop into both eyes in the morning and 1 Drop before bedtime. INSTILL 1 DROP INTO EACH EYE TWICE DAILY. 60 Each 0 Rivaroxaban 15 MG Oral Tablet (Xarelto) Take 1 Tablet by mouth daily with dinner. 30 Tablet 0 Solifenacin Succinate 5 MG Oral Tablet (VESIcare) Take 1 Tablet by mouth in the morning. 30 Tablet 0 Verapamil HCl ER 120 MG Oral Tablet Extended Release (Isoptin SR) Take 1 Tablet by mouth in the morning. 30 Tablet 0 Vitamin C 500 MG Oral Tablet Chewable Take 1 Tablet by mouth in the morning. 90 Tablet 0 Prolia 60 MG/ML Subcutaneous Solution Prefilled Syringe Inject 60 mg under the skin every 6 months.1 mL 0 CPAP every night at bedtime. (Patient not taking: Reported on 09/19/2023) Triamcinolone Acetonide 0.5 % External Cream (Aristocort) APPLY TO AFFECTED AREA TWICE A DAY (Patient not taking: Reported on 09/15/2023) 60 g 5 No current facility-administered medications for this visit. Current and discharge medications have been reconciled. Review of patient's allergies indicates: Allergen Reactions Sulfamethoxazole Other Reaction(s): Rash Trimethoprim Other Reaction(s): Rash Amoxicillin Rash Bactrim Rash Ciprofloxacin Rash Diltiazem Rash Feldene [Piroxicam] Rash Keflex [Cephalexin] Rash Meloxicam Rash Other reaction(s): Other Pletal [Cilostazol] Rash and Unknown OBJECTIVE: BP 112/60 | Pulse 88 | Temp 36 C (96.8 F) (Tympanic) | Wt 71.8 kg (158 lb 3.2 oz) | BMI 34.23 kg/m | BSA 1.7 m REVIEW OF SYSTEMS: PHYSICAL EXAM: BP 112/60 | Pulse 88 | Temp 36 C (96.8 F) (Tympanic) | Wt 71.8 kg (158 lb 3.2 oz) | BMI 34.23 kg/m | BSA 1.7 m ASSESSMENT: Hospital discharge follow-up (Primary) - DISCH MED RECON CUR MED LIS Hypertensive kidney disease with stage 3b chronic kidney disease (HCC) Parastomal hernia without obstruction or gangrene Paroxysmal atrial fibrillation (HCC) Colostomy status (HCC) COPD, moderate (HCC) Chronic atrial fibrillation (HCC) Gastrointestinal hemorrhage associated with gastric ulcer Senile osteoporosis Follow-up: Return in 1 month (on 10/20/2023). | Check-out note: Schedule follow up with Sleep Med [place] Schedule follow up with Gastroenterology within 1-2 weeks PLAN: Recent Gi bleed/ Gastric ulcer in July. Slow drop of her HCT. Recommend she hold Xarelto until H/H stabilizes. Cotninue protonix In need of CPAP - needs follow up with sleep medicine. Note sent to Dr Busby. Parastomal hernia, tender on exam. - needs colorectal surgery consult Strongly encourage tobacco cessation. States she will try using lollipops. She declines vaccines despite recent hospitalizations Has had 3 hospitalizations since July with mutliple chronic comorbid conditions. Recommend [facility]. She agrees Follow up in 1 month(s). I spent a total of 30-39 minutes (exact time 37 mins) minutes on the date of service in preparation, delivery, and documentation of the care provided to Eliazar Beaulieu excluding any time spent in performance of separately billed services. Tameka Mao MD documented in this encounter Nursing Notes * Dominic Borrego LPN - 09/19/2023 9:32 AM EDT Chief Complaint Patient presents with Hospital Follow-Up Still smoking a couple a day Went to [facility] from 08/28/23-2 wks Then went to [facility] rehab and was discharged on 09/14/2023 Dx: Influenza and COPD exacerbation Tx with Tamiflu, prednisone, and Rehab She has [facility] coming in now to do pill box and PT at home She is wearing 3 L oxygen Son is with her today , but from [place] and going back home today. Her Brother will assist her in apt's She needs to see Colorectal Surgery for parastoma hernia repair Son has question about Calcium dose. Discharge says 1000 mg , but was getting 500 mg. Needs Clarified The patient has been properly identified by confirmation of name and date of . documented in this encounter Plan of Treatment Upcoming Encounters Date Type Department Care Team (Late st Contact Info) Description 10/23/2023 2:30 PM EDT Office Visit Rheumatology [address] [place] [phone] Jessica Stubbs CRNP [address] [place] [address] [place] [address] 10/31/2023 11:20 AM EDT Office Visit Family Medicine [address] [place] [phone] Tameka Hooper MD [address] [place] [address] [place] [address] 10/31/2023 1:00 PM EDT Cardiac Studies Cardiac Studies, [facility] [address] [place] [address] 11/01/2023 9:30 AM EDT Procedure Only Endoscopy, [facility] [address] [place] [address] Gasper Kim DO [address] [place] [address] 11/01/2023 10:00 AM EDT Procedure Only Endoscopy, [facility] [address] [place] [address] Gasper Kim, DO [address] [place] [address] 11/23/2023 3:00 PM EDT Office Visit Family Medicine [address] [place] [phone] Betsey Cramer [address] [place] [address] 02/20/2024 3:40 PM EDT Office Visit Sleep Disorders [facility] [address] [facility] [place] [phone] Lynn Busby, DO [address] [facility] [place] [address] 03/26/2024 1:30 PM EDT Office Visit Nephrology [address] [place] [address] ZemaitisAyana PA-C [address] [facility] [address] 05/01/2024 3:00 PM EDT Office Visit Dermatology [address] [place] [address] Anya Pratt PA-C [address] [place] [address] [place] [address] Pending Results Name Type Priority Associated Diagnoses Date /Time CBC Lab Routine Gastrointestinal hemorrhage associated with gastric ulcer 09/19/2023 10:53 AM EDT 25-HYDROXY VITAMIN D Lab Routine Senile osteoporosis 09/19/2023 10:53 AM EDT Scheduled Orders Name Type Priority Associated Diagnoses Orde r Schedule ALBUMIN / CREATININE RATIO, URINE Lab Routine Hypertensive kidney disease with stage 3b chronic kidney disease (HCC) Expected: 09/19/2023, Expires: 09/18/2024 Scheduled Referrals Name Type Priority Associated Diagnoses Orde r Schedule COLORECTAL SURGERY REFERRAL OP Referral Within 10 days (routine) Parastomal hernia without obstruction or gangrene Ordered: 09/19/2023 [facility] REFERRAL OP Referral Within 10 days (routine) Hypertensive kidney disease with stage 3b chronic kidney disease (HCC) Hospital discharge follow-up Parastomal hernia without obstruction or gangrene Paroxysmal atrial fibrillation (HCC) Colostomy status (HCC) COPD, moderate (HCC) Chronic atrial fibrillation (HCC) Gastrointestinal hemorrhage associated with gastric ulcer Ordered: 09/19/2023 Health Maintenance Due Date Last Done Comments DISCUSS TOBACCO CESSATION (REFER TO SMARTSET #3291) 1940 COVID-19 Vaccine ( season) 2023 06/01/2021, 10/20/2020, 09/15/2020 Influenza Vaccine (FLU shot) (#1) 2023 Albumin/Creatinine Ratio 08/15/2023 08/15/2022, 01/31 CKD PHOS USE SMARTSET 38899 12/28/202312/02, 04/26/2022, 11/23/2021, Additional history exists GFR 03/15/2024 09/13/2023, 08/31, 09/09/2023, Additional history exists DXA Scan 08/01/2024 08/01/2022, 07/05, 07/07/2020, Additional history exists Depression Screening 08/21/2024 08/21/2023 O2 ASSESSMENT COMPLETED IN PAST YEAR FOR COPD 08/24/2024 08/24/2023 CKD HGB USE SMARTSET 38114 09/10/202409/10, 09/08/2023, 09/08/2023, Additional history exists COLONOSCOPY-EVERY 5 YRS AGES 18-100 07/31/2028 07/31/2023, 02/23/2022, 02/23/2022, Additional history exists DTaP,Tdap,and Td Vaccines (2 - Td or Tdap) 08/07/2030 08/07/2020 (Not indicated), 09/01/1998 Pneumococcal Vaccine: 65+ Years Completed 05/16/2016, 12/01/2014, 12/01/2013, Additional history exists VITAMIN D LEVEL ONCE IN A LIFETIME-USE SMARTSET# [id number] Completed 12/27/2022, 08/12/2022, 03/15/2022, Additional history exists [...] as of this encounter Visit Diagnoses Diagnosis Hospital discharge follow-up- Primary Other follow-up examination Hypertensive kidney disease with stage 3b chronic kidney disease (HCC) Parastomal hernia without obstruction or gangrene Hernia of unspecified site of abdominal cavity without mention of obstruction or gangrene Paroxysmal atrial fibrillation (HCC) Atrial fibrillation Colostomy status (HCC) Colostomy status COPD, moderate (HCC) Chronic airway obstruction, not elsewhere classified Chronic atrial fibrillation (HCC) Atrial fibrillation Gastrointestinal hemorrhage associated with gastric ulcer Senile osteoporosis documented in this encounter Advance Directives Healthcare Agents on File Name Relationship Healthcare Agent Relationshi p Communication Juan Daniel Beaulieu Adult Child Health Care Repr esentative (appointed verbally by patient or by statute hierarchy) Jean Beaulieu Adult Child Health Care Repr esentative (appointed verbally by patient or by statute hierarchy) Care Teams Tattooer Relationship Specialty Start Date End Date Tameka Hooper MD [address] [place] [address] [place] [address] PCP - General Family Medicine 05/29/19 documented as of this encounter"
--- OUTSIDE RECORDS SUMMARY | 2023-10-13 18:20 | External Medical Summary | Summary of Care ---
Author Name Unknown Organization [facility] Address [address] [place] [address] Phone [phone] Care Team Providers Care Storehouse Clerk Name Role Phone Tameka Hooper MD Primary Care Prov ider Reason for Visit * Reason Onset Date Comments Home Health 09/15/2023 Encounter Details Date Type Department Care Team (Late st Contact Info) Description 09/15/2023 Telephone Family Medicine [address] [phone] Tameka Hooper MD [address] [place], [place] [address] [address] Home Health (/) Allergies Active Allergy Reactions Criticality Noted Date Comments Amoxicillin Rash 02/07/2020 Bactrim Rash 12/15/2011 Ciprofloxacin Rash 12/15/2011 Diltiazem Rash 05/29/2019 Piroxicam Rash 12/15/2011 Cephalexin Rash 12/15/2011 Meloxicam Rash 05/29/2019 Other reaction(s): Other Cilostazol Rash,Unknown 12/15/2011 Sulfamethoxazole High 01/19/2023 Other Reaction(s): Rash Trimethoprim High 01/19/2023 Other Reaction(s): Rash documented as of this encounter (statuses as of 09/15/2023) Medications Medication Sig Dispensed Refills Start Date [...] as of this encounter (statuses as of 09/15/2023) Active Problems Problem Noted Date Diagnosed Date Bilateral pleural effusion 09/06/2023 Interstitial lung disease 09/06/2023 Peristomal hernia 08/31/2023 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 Nephrolithiasis 08/16/2023 [...] as of this encounter (statuses as of 09/15/2023) Resolved Problems Problem Noted Date Diagnosed Date [...] as of this encounter (statuses as of 09/15/2023) Immunizations Name Administration Dates Next Due COVID-19 [...] Telephone Encounter - Dominic Borrego LPN - 09/15/2023 4:54 PM EDT Hospital Follow up scheduled for 09/19/23 with PCP * Telephone Encounter - Tiffanie Wyatt LPN - 09/15/2023 3:31 PM EDT HH Admission/Start of Care Admission/Start of Care: Nereida DOVER, Calling from: [place] Referral ordered by: Rosina Bedolla Referral received for: Detention, PT, and OT Planned start of care date:Yes, Date 09/15/2023 Start of care completed on: 09/15/2023 Report/Concerns of:None Vitals: T 97.2 P 74 RR 18 BP 110/58 SP O2 98% 3LPM Lung Sounds: A little Diminished Narrative: Assisting with Pill Seamer Operator Set Up They will call with any updates or additional concerns from the upcoming HH visit. Last Office Visit: 08/24/2023 Has patient been scheduled or seen in the office for a follow up visit: Yes- on09/19/2023 Advised that orders will be signed by Tameka Mao MD and to fax to the office for signature. documented in this encounter Plan of Treatment Upcoming Encounters Date Type Department Care Team (Late st Contact Info) Description 09/19/2023 9:40 AM EDT Office Visit Family Medicine [address] [place] [phone] Tameka Hooper MD [address] [place] [address] [place] [address] 10/23/2023 2:30 PM EDT Office Visit Rheumatology [address] [place] [phone] Jessica Stubbs CRNP [address] [place] [address] [place] [address] 10/31/2023 1:00 PM EDT Cardiac Studies Cardiac Studies, [facility] [address] [place] [address] 11/01/2023 9:30 AM EDT Procedure Only Endoscopy, [facility] [address] [place] [address] Gasper Kim, DO [address] [place] [address] 11/01/2023 10:00 AM EDT Procedure Only Endoscopy, [facility] [address] [place] [address] Kim, Marten B, DO [address] [place] [address] 11/23/2023 3:00 PM EDT Office Visit Family Medicine [address] [place] [phone] Betsey Cramer CRNP [address] [place] [address] [place] [address] 03/26/2024 1:30 PM EDT Office Visit Nephrology [address] [place] [address] Ayana Anna PA-C [address] [place] [address] 05/01/2024 3:00 PM EDT Office Visit Dermatology [address] [place] [address] Anya Pratt PA-C [address] [place] [address] [place] [address] Health Maintenance Due Date Last Done Comments DISCUSS TOBACCO CESSATION (REFER TO SMARTSET #3291) 1942 COVID-19 Vaccine ( season) 2023 06/01/2021, 10/20/2020, 09/15/2020 Influenza Vaccine (FLU shot) (#1) 2023 Albumin/Creatinine Ratio 08/15/2023 08/15/2022, 01/31 CKD PHOS USE SMARTSET 80757 12/28/202312/02, 04/26/2022, 11/23/2021, Additional history exists GFR 03/15/2024 09/13/2023, 08/31, 09/09/2023, Additional history exists DXA Scan 08/01/2024 08/01/2022, 07/05, 07/07/2020, Additional history exists Depression Screening 08/21/2024 08/21/2023 O2 ASSESSMENT COMPLETED IN PAST YEAR FOR COPD 08/24/2024 08/24/2023 CKD HGB USE SMARTSET 74288 09/10/202409/10, 09/08/2023, 09/08/2023, Additional history exists COLONOSCOPY-EVERY 5 YRS AGES 18-100 07/31/2028 07/31/2023, 02/23/2022, 02/23/2022, Additional history exists DTaP,Tdap,and Td Vaccines (2 - Td or Tdap) 08/07/2030 08/07/2020 (Not indicated), 09/01/1998 Pneumococcal Vaccine: 65+ Years Completed 05/16/2016, 12/01/2014, 12/01/2013, Additional history exists VITAMIN D LEVEL ONCE IN A LIFETIME-USE SMARTSET# [id number] Completed 12/27/2022, 08/12/2022, 03/15/2022, Additional history exists [...] patient or by statute hierarchy) Care Teams Storehouse Clerk Relationship Specialty Start Date End Date Tameka Hooper MD [address] [place] [address] [place] [address] PCP - General Family Medicine 05/29/19 documented as of this encounter
--- OUTSIDE RECORDS SUMMARY | 2023-10-13 18:20 | External Medical Summary ---
Author Name Unknown Address Unknown Organization K01:[facility] [place] [address] [place] [address] Laboratory Report Ordering Provider Test Date Status DELONTE MYRICK 09/19/2023 10:53:54 Final Deficient: <20 ng/mL
Ins ufficient: 20-29 ng/mL
Recommended/Optimum:30-50 ng/mL

Vitamin D intoxication is rare. If suspicious of Vitamin D toxicity, evaluation of serum Calcium and PTH is recommended. Observation Date Value Abnormality Reference (Units ) Status 25-OH Vitamin D total 09/19/2023 10:53:54 35 >19 (ng/mL) Final Performing Location [facility] [place] [address] [place] [address]
--- OUTSIDE RECORDS SUMMARY | 2023-10-13 18:20 | External Medical Summary | Summary of Care ---
Author Name Unknown Organization [facility] Address [address] [place] [address] Phone [phone] Care Team Providers Care Paper Conservator Name Role Phone Tameka Hooper MD Primary Care Prov ider Reason for Visit * Reason Onset Date Comments Home Health 09/15/2023 Encounter Details Date Type Department Care Team (Late st Contact Info) Description 09/15/2023 Telephone Family Medicine [address] [phone] Tameka Hooper MD [address] [place], [place] [address] [address] Home Health (/) Allergies Active Allergy [...] Miscellaneous Notes * Telephone Encounter - Tiffanie Wyatt, JENNIFER - 09/15/2023 3:31 PM EDT Admission/Start of Care Admission/Start of Care: Nereida DOVER, Calling from: [place] Referral ordered by: Rosina Bedolla Referral received for: Group Home, PT, and OT Planned start of care date:Yes, Date 09/15/2023 Start of care completed on: 09/15/2023 Report/Concerns of:None Vitals: T 97.2 P 74 RR 18 BP 110/58 SP O2 98% 3LPM Lung Sounds: A little Diminished Narrative: Assisting with Pill Ash Worker Set Up They will call with any [...] 9:40 AM EDT Office Visit Family Medicine [address] [phone] Tameka Hooper MD [address] [place] [address] [place] [address] 10/23/2023 2:30 PM EDT Office Visit Rheumatology [address] [place] [phone] Jessica Stubbs CRNP [address] [place], [place] [address] [address] 10/31/2023 1:00 PM EDT Cardiac Studies Cardiac Studies, [facility] [address] [place] [address] 11/01/2023 9:30 AM EDT Procedure Only Endoscopy, [facility] [address] [place] [address] Gasper Kim, [address] [place] [address] 11/01/2023 10:00 AM EDT Procedure Only Endoscopy, [facility] [address] [place] [address] Gasper Kim, [address] [place] [address] 11/23/2023 3:00 PM EDT Office Visit [address] [place] [phone] Betsey Cramer CRNP [address] [place] [address] [place] [address] 03/26/2024 1:30 PM EDT Office Visit Nephrology [address] [place] [address] Ayana Anna PA-C [address] [place] [address] 05/01/2024 3:00 PM EDT Office Visit Dermatology [address] [place] [address] Anya Pratt PA-C [address] [place] [address] [place] [address] Health Maintenance Due Date Last Done Comments DISCUSS TOBACCO CESSATION (REFER TO SMARTSET #9919) 1940 COVID-19 Vaccine ( season) 2023 06/01/2021, 10/20/2020, 09/15/2020 Influenza Vaccine (FLU shot) (#1) 2023 Albumin/Creatinine Ratio 08/15/2023 08/15/2022, 01/31 CKD PHOS USE SMARTSET 77285 12/28/202312/02, 04/26/2022, 11/23/2021, Additional history exists GFR 03/15/2024 09/13/2023, 08/31, 09/09/2023, Additional history exists DXA Scan 08/01/2024 08/01/2022, 07/05, 07/07/2020, Additional history exists Depression Screening 08/21/2024 08/21/2023 O2 ASSESSMENT COMPLETED IN PAST YEAR FOR COPD 08/24/2024 08/24/2023 CKD HGB USE SMARTSET 80664 09/10/202409/10, 09/08/2023, 09/08/2023, Additional history exists COLONOSCOPY-EVERY 5 YRS AGES 18-100 07/31/2028 07/31/2023, 02/23/2022, 02/23/2022, Additional history exists DTaP,Tdap,and Td Vaccines (2 - Td or Tdap) 08/07/2030 08/07/2020 (Not indicated), 09/01/1998 Pneumococcal Vaccine: 65+ Years Completed 05/16/2016, 12/01/2014, 12/01/2013, Additional history exists VITAMIN D LEVEL ONCE IN A LIFETIME-USE SMARTSET# [id number] Completed 12/27/2022, 08/12/2022, 03/15/2022, Additional history exists [...] patient or by statute hierarchy) Care Teams Paper Conservator Relationship Specialty Start Date End Date Tameka Hooper MD [address] [place] [address] [place] [address] PCP - General Family Medicine 05/29/19 documented as of this encounter
--- OUTSIDE RECORDS SUMMARY | 2023-10-13 18:20 | External Medical Summary | Summary of Care ---
Author Name Unknown Organization [facility] Address [address] [place] [address] Phone [phone] Care Team Providers Care Whittling Room Operator Name Role Phone Tameka Hooper MD [...] associated with gastric ulcer Tameka Hooper MD [address] [place] [address] [place] [address] Referral ID Status Reason Start Date Expiration Date Visits Requested Visits Authorized [id number] Authorized Specialty Services Required 09/19/2023 999 999 Question Answer Referral Priority Within 10 days (routine) Where should this appointment be scheduled? [facility] Does patient have multiple co-morbid conditions? Yes Does patient have [facility] insurance? Yes Comments Is referral coming from Care Coordination and Integration? No * Evaluate & Treat - Unlimited Visits (Within 10 days (routine)) - Authorized Specialty Diagnoses / Procedures Referred By Contac t Referred To Contact General Surgery Diagnoses Parastomal hernia without obstruction or gangrene Tameka Hooper MD [address] [place] [address] [place] [address] Referral ID Status Reason Start Date Expiration Date Visits Requested Visits Authorized [id number] Authorized Specialty Services Required 09/19/2023 999 999 [...] 9:40 AM EDT Office Visit Family Medicine [address] [place] [phone] Tameka Hooper MD [address] [place] [address] [place] [address] Hospital discharge follow-up*; Hypertensive kidney disease with [...] Recent Admission: Patient was recently admitted to [facility] 08/28/23 and then [facility] 08/31/23. The date of discharge was 09/13/23. Discharge report received and reviewed. HPI: Eliazar is here for hospital discharge follow up. She was admitted to [facility] for COPD with respiratory failure due to [...] is with her today , but from [place] and going back home today. Her Brother [...] Diagnosis Code 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[facility]) G47.33, J44.9 Macular degeneration H35.30 S/P bilateral cataract extraction Z98.41, Z98.42 Colostomy status ([facility]) Z93.3 Paroxysmal atrial fibrillation ([facility]) I48.0 H/O resection of large bowel Z90.49 Diverticulosis of large intestine without hemorrhage K57.30 Mixed hyperlipidemia E78.2 Tobacco use disorder F17.200 Chronic bilateral low back pain without sciatica M54.50, G89.29 DDD (degenerative disc disease), lumbar M51.36 Stage 3b chronic kidney disease N18.32 Senile osteoporosis M81.0 Major depressive disorder with single episode, in full remission ([facility]) F32.5 Hypoparathyroidism ([facility]) E20.9 Chronic hypoxemic respiratory failure ([facility]) J96.11 History of healed osteoporosis fracture Z87.310 Essential (primary) hypertension I10 COPD, group B, by GOLD 2017 classification ([facility]) J44.9 Hypertensive kidney disease with stage [...] 1 TABLET BY MOUTH EVERY DAY WITH [id number] Tablet 1 Fish Oil 500 MG Oral [...] smoking a couple a day Went to [facility] from 08/28/23-2 wks Then went to [facility] rehab and was discharged on 09/14/2023 Dx: Influenza and COPD exacerbation Tx with Tamiflu, prednisone, and Rehab She has [place] HH coming in now to do pill box and PT at home She is wearing 3 L oxygen Son is with her today , but from [place] and going back home today. Her Brother [...] 10/23/2023 2:30 PM EDT Office Visit Rheumatology [address] [place] [phone] Jessica Stubbs CRNP [address] [facility] [place] [address] 10/31/2023 1:00 PM EDT Cardiac Studies Cardiac Studies, [facility] [address] [place] [address] 11/01/2023 9:30 AM EDT Procedure Only Endoscopy, [facility] [address] [place] [address] Gasper Kim DO [address] [place] [address] 11/01/2023 10:00 AM EDT Procedure Only Endoscopy, [facility] [address] [place] [address] Gasper Kim DO [address] [place] [address] 11/23/2023 3:00 PM EDT Office Visit Family Medicine [address] [place] [phone] Betsey Cramer CRNP [address] [place] [address] [place] [address] 03/26/2024 1:30 PM EDT Office Visit Nephrology [address] [place] [address] ZeAyana ladd PA-C [address] [place] [address] 05/01/2024 3:00 PM EDT Office Visit Dermatology [address] [place] [address] Anya Pratt PA-C [address] [place] [address] [place] [address] Pending Results Name Type Priority Associated Diagnoses [...] 08/15/2023 08/15/2022, 01/31 CKD PHOS USE SMARTSET 32708 12/28/202312/02, 04/26/2022, 11/23/2021, Additional history exists GFR 03/15/2024 09/13/2023, 08/31, 09/09/2023, Additional history exists DXA Scan 08/01/2024 08/01/2022, 07/05, 07/07/2020, Additional history exists Depression Screening 08/21/2024 08/21/2023 O2 ASSESSMENT COMPLETED IN PAST YEAR FOR COPD 08/24/2024 08/24/2023 CKD HGB USE SMARTSET 71425 09/10/202409/10, 09/08/2023, 09/08/2023, Additional history exists COLONOSCOPY-EVERY 5 YRS AGES 18-100 07/31/2028 07/31/2023, 02/23/2022, 02/23/2022, Additional history exists DTaP,Tdap,and Td Vaccines (2 - Td or Tdap) 08/07/2030 08/07/2020 (Not indicated), 09/01/1998 Pneumococcal Vaccine: 65+ Years Completed 05/16/2016, 12/01/2014, 12/01/2013, Additional history exists VITAMIN D LEVEL ONCE IN A LIFETIME-USE SMARTSET# [id number] Completed 12/27/2022, 08/12/2022, 03/15/2022, Additional history exists [...] patient or by statute hierarchy) Care Teams Whittling Room Operator Relationship Specialty Start Date End Date Tameka Hooper MD [address] [place] [address] [place] [phone] PCP - General Family Medicine 05/29/19 documented as of this encounter"
--- OUTSIDE RECORDS SUMMARY | 2023-10-13 18:20 | External Medical Summary | Summary of Care ---
Author Name Unknown Organization [facility] Address [address] [place] [address] Phone [phone] Care Team Providers Care Contract Writer Name Role Phone Tameka Hooper MD Primary [...] associated with gastric ulcer Tameka Hooper MD [address] [place] [address] [place] [address] Referral ID Status Reason Start Date Expiration Date Visits Requested Visits Authorized [id number] Authorized Specialty Services Required 09/19/2023 999 999 Question Answer Referral Priority Within 10 days (routine) Where should this appointment be scheduled? [facility] Does patient have multiple co-morbid conditions? Yes Does patient have [facility] insurance? Yes Comments Is referral coming from Care Coordination and Integration? No * Evaluate & Treat - Unlimited Visits (Within 10 days (routine)) - Authorized Specialty Diagnoses / Procedures Referred By Contac t Referred To Contact General Surgery Diagnoses Parastomal hernia without obstruction or gangrene Tameka Hooper MD [address] [place] [address] [place] [address] Referral ID Status Reason Start Date Expiration Date Visits Requested Visits Authorized [id number] Authorized Specialty Services Required 09/19/2023 999 999 Question Answer Referral Priority Within 10 days (routine) Where should this appointment be scheduled? [email or web address] What condition is the patient being seen for? All other conditions Comments Parastomal hernia Reason for Visit * Reason Onset Date Comments Hospital Follow-Up Hospital Follow-Up 09/19/2023 Encounter Details Date Type Department Care Team (Late st Contact Info) Description 09/19/2023 9:40 AM EDT Office Visit Family Medicine [address] [place] [phone] Tameka Hooper MD [address] [place] [address] [place] [address] Hospital discharge follow-up*; Hypertensive kidney disease with [...] Recent Admission: Patient was recently admitted to [facility] 08/28/23 and then [facility] 08/31/23. The date of discharge was 09/13/23. Discharge report received and reviewed. HPI: Eliazar is here for hospital discharge follow up. She was admitted to [facility] for COPD with respiratory failure due [...] is with her today , but from [place] and going back home today. Her Brother [...] Code 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[facility]) G47.33, J44.9 Macular degeneration H35.30 S/P bilateral cataract extraction Z98.41, Z98.42 Colostomy status ([facility]) Z93.3 Paroxysmal atrial fibrillation ([facility]) I48.0 H/O resection of large bowel Z90.49 Diverticulosis of large intestine without hemorrhage K57.30 Mixed hyperlipidemia E78.2 Tobacco use disorder F17.200 Chronic bilateral low back pain without sciatica M54.50, G89.29 DDD (degenerative disc disease), lumbar M51.36 Stage 3b chronic kidney disease N18.32 Senile osteoporosis M81.0 Major depressive disorder with single episode, in full remission ([facility]) F32.5 Hypoparathyroidism ([facility]) E20.9 Chronic hypoxemic respiratory failure ([facility]) J96.11 History of healed osteoporosis fracture Z87.310 Essential (primary) hypertension I10 COPD, group B, by GOLD 2017 classification ([facility]) J44.9 Hypertensive kidney disease with stage 3b [...] 1 TABLET BY MOUTH EVERY DAY WITH [id number] Tablet 1 Fish Oil 500 MG Oral [...] smoking a couple a day Went to [facility] from 08/28/23-2 wks Then went to [facility] rehab and was discharged on 09/14/2023 Dx: Influenza and COPD exacerbation Tx with Tamiflu, prednisone, and Rehab She has Con[place]ev[place] HH coming in now to do pill box and PT at home She is wearing 3 L oxygen Son is with her today , but from [place] and going back home today. Her Brother [...] 10/23/2023 2:30 PM EDT Office Visit Rheumatology [address] [place] [phone] Jessica Stubbs CRNP [address] [facility] [place] [address] 10/31/2023 1:00 PM EDT Cardiac Studies Cardiac Studies, [facility] [address] [place] [address] 11/01/2023 9:30 AM EDT Procedure Only Endoscopy, [facility] [address] [place] [address] Gasper Kim DO [address] [place] [address] 11/01/2023 10:00 AM EDT Procedure Only Endoscopy, [facility] [address] [place] [address] Gasper Kim DO [address] [place] [address] 11/23/2023 3:00 PM EDT Office Visit Family Medicine [address] [place] [phone] Betsey Cramer CRNP [address] [place] [address] [place] [address] 03/26/2024 1:30 PM EDT Office Visit Nephrology [address] [place] [address] ZeAyana ladd PA-C [address] [place] [address] 05/01/2024 3:00 PM EDT Office Visit Dermatology [address] [place] [address] Anya Pratt PA-C [address] [place] [address] [place] [address] Pending Results Name Type Priority Associated Diagnoses [...] 08/15/2023 08/15/2022, 01/31 CKD PHOS USE SMARTSET 57872 12/28/202312/02, 04/26/2022, 11/23/2021, Additional history exists GFR 03/15/2024 09/13/2023, 08/31, 09/09/2023, Additional history exists DXA Scan 08/01/2024 08/01/2022, 07/05, 07/07/2020, Additional history exists Depression Screening 08/21/2024 08/21/2023 O2 ASSESSMENT COMPLETED IN PAST YEAR FOR COPD 08/24/2024 08/24/2023 CKD HGB USE SMARTSET 40137 09/10/202409/10, 09/08/2023, 09/08/2023, Additional history exists COLONOSCOPY-EVERY 5 YRS AGES 18-100 07/31/2028 07/31/2023, 02/23/2022, 02/23/2022, Additional history exists DTaP,Tdap,and Td Vaccines (2 - Td or Tdap) 08/07/2030 08/07/2020 (Not indicated), 09/01/1998 Pneumococcal Vaccine: 65+ Years Completed 05/16/2016, 12/01/2014, 12/01/2013, Additional history exists VITAMIN D LEVEL ONCE IN A LIFETIME-USE SMARTSET# [id number] Completed 12/27/2022, 08/12/2022, 03/15/2022, Additional history exists [...] patient or by statute hierarchy) Care Teams Contract Writer Relationship Specialty Start Date End Date Tameka Hooper MD [address] [place] [address] [place] [phone] PCP - General Family Medicine 05/29/19 documented as of this encounter"
--- OUTSIDE RECORDS SUMMARY | 2023-10-13 18:20 | External Medical Summary ---
Author Name Unknown Address Unknown Organization K01:[facility] [place] - [address] [place] [address] Laboratory Report Ordering Provider Test Date Status DELONTE MYRICK 09/19/2023 10:53:54 Final Observation Date Value Abnormality Reference (Units ) Status WBC, Total 09/19/2023 10:53:54 9.19 4.00-10.80 (K/uL) Final RBC 09/19/2023 10:53:54 3.01 3.85-5.15 (M/uL) Final Hemoglobin 09/19/2023 10:53:54 8.6 Below low normal 12.0-15.3 (g/dL) Final HCT 09/19/2023 10:53:54 30.1 Below low normal 36.0-45.2 (%) Final MCV 09/19/2023 10:53:54 100.0 81.5-97.5 (fL) Final MCH 09/19/2023 10:53:54 28.6 27.0-34.0 (pg) Final MCHC 09/19/2023 10:53:54 28.6 32.0-36.0 (g/dL) Final RDW 09/19/2023 10:53:54 16.2 11.5-15.5 (%) Final Platelets 09/19/2023 10:53:54 412 Above high normal 140-400 (K/uL) Final MPV 09/19/2023 10:53:54 9.6 6.6-11.1 (fL) Final Nucleated erythrocytes/100 leukocytes [Ratio] in Blood by Automated count 09/19/2023 10:53:54 0 <=0 (/100 WBCs) Final Performing Location [facility] [place] - [address] [place] [address]
--- OUTSIDE RECORDS SUMMARY | 2023-10-13 18:20 | External Medical Summary | Summary of Care ---
Author Name Unknown Organization [facility] Address [address] [place] [address] Phone [phone] Care Team Providers Care Distribution Coordinator Name Role Phone Tameka Hooper MD Primary Care Prov ider Reason for Visit * Reason Onset Date Comments Referral 09/19/2023 Encounter Details Date Type Department Care Team (Late st Contact Info) Description 09/19/2023 Telephone General Surgery, [place] [address] [place] [address] Services, [facility] [address] [place] [address] Referral Allergies Active Allergy Reactions Criticality Noted Date [...] Telephone Encounter - Roz Pittman LPN - 09/19/2023 2:27 PM EDT Referral from: Dr. Tameka Cai Consult: General Surgery (corrected) For: parastomal hernia Attempted to contact patient to schedule appointment - left message on primary phone for patient toreturn call. Will offer appointment with first available provider - please note that this is NOT a condition treated by Colorectal and should not be scheduled with Drs. Hooks/Morena, patient will need to see one of the general surgeons. Bridget Pittman LPN Intake Nurse Navigator General Surgery and [facility] documented in this encounter Plan of Treatment Upcoming Encounters Date Type Department Care Team (Late st Contact Info) Description 09/20/2023 2:00 PM EDT Home Visit [facility] [place], [facility] [address] [place] [address] Jodi Smallwood, RN [address] [place], [place] [address] 10/23/2023 2:30 PM EDT Office Visit Rheumatology [address] [place] [phone] Jessica Stubbs CRNP [address] [facility] [place] [address] 10/31/2023 11:20 AM EDT Office Visit Family Medicine [address] [phone] Tameka Hooper MD [address] [place] [address] [place] [address] 10/31/2023 1:00 PM EDT Cardiac Studies Cardiac Studies, [facility] [address] [place] [address] 11/01/2023 9:30 AM EDT Procedure Only Endoscopy, [facility] [address] [place] [address] Gasper Kim, [address] [place] [address] 11/01/2023 10:00 AM EDT Procedure Only Endoscopy, [facility] [address] [place] [address] Gasper Kim, [address] [place] [address] 11/23/2023 3:00 PM EDT Office Visit Family Medicine [address] [phone] Betsey Cramer CRNP [address] [place] [address] [place] [address] 02/20/2024 3:40 PM EDT Office Visit [facility] Nikole [facility] [address] [place] [phone] Lynn Busby, [address] [place] [address] 03/26/2024 1:30 PM EDT Office Visit Nephrology [address] [place] [address] Ayana Anna PA-C [address] [place] [address] 05/01/2024 3:00 PM EDT Office Visit Dermatology [address] [place] [address] Anya Pratt PA-C [address] [place] [address] [place] [address] Health Maintenance Due Date Last Done Comments DISCUSS TOBACCO CESSATION (REFER TO SMARTSET #3291) 1940 COVID-19 Vaccine ( season) 2023 06/01/2021, 10/20/2020, 09/15/2020 Influenza Vaccine (FLU shot) (#1) 2023 Albumin/Creatinine Ratio 08/15/2023 08/15/2022, 01/31 CKD PHOS USE SMARTSET 77839 12/28/202312/02, 04/26/2022, 11/23/2021, Additional history exists GFR 03/15/2024 09/13/2023, 08/31, 09/09/2023, Additional history exists DXA Scan 08/01/2024 08/01/2022, 07/05, 07/07/2020, Additional history exists Depression Screening 08/21/2024 08/21/2023 O2 ASSESSMENT COMPLETED IN PAST YEAR FOR COPD 08/24/2024 08/24/2023 CKD HGB USE SMARTSET 60953 09/10/202409/10, 09/08/2023, 09/08/2023, Additional history exists COLONOSCOPY-EVERY 5 YRS AGES 18-100 07/31/2028 07/31/2023, 02/23/2022, 02/23/2022, Additional history exists DTaP,Tdap,and Td Vaccines (2 - Td or Tdap) 08/07/2030 08/07/2020 (Not indicated), 09/01/1998 Pneumococcal Vaccine: 65+ Years Completed 05/16/2016, 12/01/2014, 12/01/2013, Additional history exists VITAMIN D LEVEL ONCE IN A LIFETIME-USE SMARTSET# 82171 Completed 12/27/2022, 08/12/2022, 03/15/2022, Additional history exists [...] patient or by statute hierarchy) Care Teams Distribution Coordinator Relationship Specialty Start Date End Date Tameka Hooper MD [address] [place] [address] [place] [address] PCP - General Family Medicine 05/29/19 documented as of this encounter
--- OUTSIDE RECORDS SUMMARY | 2023-10-13 18:20 | External Medical Summary | Summary of Care ---
Author Name Unknown Organization [facility] Address [address] [place] [address] Phone [phone] Care Team Providers Care Media Reconciliation Specialist Name Role Phone Tameka Hooper MD Primary Care Prov ider Reason for Visit * Reason Onset Date Comments Appointment 09/19/2023 Encounter Details Date Type Department Care Team (Late st Contact Info) Description 09/19/2023 Telephone [facility], [facility] [address] [facility] [place] [address] Services, Scheduling [address] [place] [address] Appointment (//) Allergies Active Allergy Reactions Criticality [...] Telephone Encounter - Michaela Diane OSA - 09/19/2023 11:29 AM EDT [facility] Enrollment Form Screening: Referral Source: PCP/Specialty Primary Reason for Referral (Select most relevant): No data was found Engagement: Engagement Attempt 1: Contacted - Agreed to home-based services Scheduled appointment information: Cl:09/19 at 2:00pm Home Information: Has Wi-Fi Advance Care Planning (ACP): No data was found Has Living Will or Advance Directive: No data was found Anticipated Sub-Program: Focused Care Management (3-9 months) Confirmation of Sub-Program Type (by care contact center team lead): No data was found Handoff Information: Current care team notified via: [employer] communication Current telemonitoring equipment: No data was found documented in this encounter Plan of Treatment Upcoming Encounters Date Type Department Care Team (Late st Contact Info) Description 09/20/2023 2:00 PM EDT [facility] [place], [facility] [address] [place] [address] Jodi Smallwood, RN [address] [place] [address] 10/23/2023 2:30 PM EDT Office Visit Rheumatology [address] [place] [phone] Jessica Stubbs CRNP [address] [place] [address] [place] [address] 10/31/2023 11:20 AM EDT Office Visit Family Medicine [address] [place] [phone] Tameka Hooper MD [address] [place] [address] [place] [address] 10/31/2023 1:00 PM EDT Cardiac Studies Cardiac Studies, [facility] [address] [place] [address] 11/01/2023 9:30 AM EDT Procedure Only Endoscopy, [facility] [address] [place] [address] Gasper Kim DO [address] [place] [address] 11/01/2023 10:00 AM EDT Procedure Only Endoscopy, [facility] [address] [place] [address] Gasper Kim, [address] [place] [address] 11/23/2023 3:00 PM EDT Office Visit Family Medicine [address] [place] [phone] Betsey Cramer [address] [place] [address] 02/20/2024 3:40 PM EDT Office Visit [facility] Disorders Ctr [facility] [address] [place] [phone] Lynn Busby, [address] [place] [address] 03/26/2024 1:30 PM EDT Office Visit Nephrology [address] [place] [address] Ayana Anna PA-C [address] [place] [address] 05/01/2024 3:00 PM EDT Office Visit Dermatology [address] [place] [address] Anya Pratt PA-C [address] [place] [address] [place] [address] Health Maintenance Due Date Last Done Comments DISCUSS TOBACCO CESSATION (REFER TO SMARTSET #2131) 1940 COVID-19 Vaccine ( season) 2023 06/01/2021, 10/20/2020, 09/15/2020 Influenza Vaccine (FLU shot) (#1) 2023 Albumin/Creatinine Ratio 08/15/2023 08/15/2022, 01/31 CKD PHOS USE SMARTSET 41153 12/28/202312/02, 04/26/2022, 11/23/2021, Additional history exists GFR 03/15/2024 09/13/2023, 08/31, 09/09/2023, Additional history exists DXA Scan 08/01/2024 08/01/2022, 07/05, 07/07/2020, Additional history exists Depression Screening 08/21/2024 08/21/2023 O2 ASSESSMENT COMPLETED IN PAST YEAR FOR COPD 08/24/2024 08/24/2023 CKD HGB USE SMARTSET 36571 09/10/202409/10, 09/08/2023, 09/08/2023, Additional history exists COLONOSCOPY-EVERY 5 YRS AGES 18-100 07/31/2028 07/31/2023, 02/23/2022, 02/23/2022, Additional history exists DTaP,Tdap,and Td Vaccines (2 - Td or Tdap) 08/07/2030 08/07/2020 (Not indicated), 09/01/1998 Pneumococcal Vaccine: 65+ Years Completed 05/16/2016, 12/01/2014, 12/01/2013, Additional history exists VITAMIN D LEVEL ONCE IN A LIFETIME-USE SMARTSET# 78582 Completed 12/27/2022, 08/12/2022, 03/15/2022, Additional history exists [...] patient or by statute hierarchy) Care Teams Media Reconciliation Specialist Relationship Specialty Start Date End Date Tameka Hooper MD [address] [place] [address] [place] [address] PCP - General Family Medicine 05/29/19 documented as of this encounter
--- OUTSIDE RECORDS SUMMARY | 2023-10-13 18:20 | External Medical Summary | Summary of Care ---
Author Name Unknown Organization [facility] Address [address] [facility] [place] [address] Phone [phone] Care Team Providers Care Patient Service Coordinator Name Role Phone Tameka Hooper MD Primary Care Prov ider Reason for Visit * Reason Onset Date Comments [facility]: Screening 09/19/2023 Encounter Details Date Type Department Care Team (Late st Contact Info) Description 09/19/2023 Telephone [facility], [facility] [address] [facility] [place] [address] [facility], Nurse [facility] [address] [facility] [place] [address] [facility]: Screening Allergies Active Allergy Reactions Criticality Noted Date [...] encounter Miscellaneous Notes * Telephone Encounter - Marcie Borrego LPN - 09/19/2023 10:46 AM EDT Eliazar Beaulieu was referred as a potential candidate for enrollment for [facility]. A review of this chart was completed and: Eliazar meets criteria for [facility]. Jump to Initiation Referring care team was notified via : Epic communication Marcie Borrego LPN [facility] 09/19/2023,10:46 AM documented in this encounter Plan of Treatment Upcoming Encounters Date Type Department Care Team (Late st Contact Info) Description 10/23/2023 2:30 PM EDT Office Visit Rheumatology [address] [place] [phone] Jessica Stubbs [employer] [facility] [place] [address] 10/31/2023 1:00 PM EDT Cardiac Studies Cardiac Studies, [facility] [address] [place], [place] [address] 11/01/2023 9:30 AM EDT Procedure Only Endoscopy, [place] [facility] [place] [address] [place], [place] [address] Gasper Kim, DO [address] [place] [address] 11/01/2023 10:00 AM EDT Procedure Only Endoscopy, [facility] [address] [place], [place] [address] Gasper Kim, DO [address] [place], [place] [address] 11/23/2023 3:00 PM EDT Office Visit Family Medicine [address] [place] [phone] Betsey Cramer CRNP [address] [place] [address] [place] [address] 03/26/2024 1:30 PM EDT Office Visit Nephrology [address] [place] [address] ZemaAyana hurtado PA-C [address] [place] [address] 05/01/2024 3:00 PM EDT Office Visit Dermatology [address] [place] [address] Anya Pratt PA-C [address] [place] [address] [place] [address] Health Maintenance Due Date Last Done Comments DISCUSS TOBACCO CESSATION (REFER TO SMARTSET #6552) 1940 COVID-19 Vaccine (2022- season) 2023 06/01/2021, 10/20/2020, 09/15/2020 Influenza Vaccine (FLU shot) (#1) 2023 Albumin/Creatinine Ratio 08/15/2023 08/15/2022, 01/31 CKD PHOS USE SMARTSET 53939 12/28/202312/02, 04/26/2022, 11/23/2021, Additional history exists GFR 03/15/2024 09/13/2023, 08/31, 09/09/2023, Additional history exists DXA Scan 08/01/2024 08/01/2022, 07/05, 07/07/2020, Additional history exists Depression Screening 08/21/2024 08/21/2023 O2 ASSESSMENT COMPLETED IN PAST YEAR FOR COPD 08/24/2024 08/24/2023 CKD HGB USE SMARTSET 83949 09/10/202409/10, 09/08/2023, 09/08/2023, Additional history exists COLONOSCOPY-EVERY 5 YRS AGES 18-100 07/31/2028 07/31/2023, 02/23/2022, 02/23/2022, Additional history exists DTaP,Tdap,and Td Vaccines (2 - Td or Tdap) 08/07/2030 08/07/2020 (Not indicated), 09/01/1998 Pneumococcal Vaccine: 65+ Years Completed 05/16/2016, 12/01/2014, 12/01/2013, Additional history exists VITAMIN D LEVEL ONCE IN A LIFETIME-USE SMARTSET# 32194 Completed 12/27/2022, 08/12/2022, 03/15/2022, Additional history exists [...] patient or by statute hierarchy) Care Teams Patient Service Coordinator Relationship Specialty Start Date End Date Tameka Hooper MD [address] [place] [address] [place] [address] PCP - General Family Medicine 05/29/19 documented as of this encounter
--- OUTSIDE RECORDS SUMMARY | 2023-10-13 18:20 | External Medical Summary ---
Author Name Unknown Address Unknown Organization K01:[facility] - [facility] [address] [place] [address] Laboratory Report Ordering Provider Test Date Status DELONTE MYRICK 09/19/2023 11:21:23 Final Normal: <30 mg/g creatinine< br/>High: 30-300 mg/g creatinine
Very High: >300 mg/g creatinine
Nephrotic: >2200 mg/g creatinine Observation Date Value Abnormality Reference (Units ) Status Albumin, Urine 09/19/2023 11:21:23 16.63 (mg/dL) Final Creatinine, Urine 09/19/2023 11:21:23 131 (mg/dL) Final Albumin/Creatinine [Mass Ratio] in Urine 09/19/2023 11:21:23 127 Above high normal <30 (mg/g Creat) Final Performing Location [facility] - [address] [place] [address]
--- OUTSIDE RECORDS SUMMARY | 2023-10-13 18:20 | External Medical Summary | Continuity Of Care Document ---
Author Name Unknown Address [address] [place] [address] Organization [facility]) Care Team Providers Care Director Talent Name Role Phone Ephraim Burgess Primary Care Provider [phone] Allergies Allergy Reaction Start Date End Date Status AMOXIL Active BACTRIM Active CEPHALEXIN Active CILOSTAZOL Active CIPRO Active DILTIAZEM Active FELODIPINE Active MELOXICAM Active SULFA (SULFONAMIDE ANTIBIOTICS) Active Problems Code Description Start Date End Date Status J09.X2 Influenza due to iva ntified novel influenza A virus with other respiratory manifestations 08/31/2023 Active J96.20 Acute and chronic re spiratory failure, unspecified whether with hypoxia or hypercapnia 08/31/2023 Active R53.81 Other malaise 08/31/2023 Active J44.9 Chronic obstructive pulmonary disease, unspecified 08/31/2023 Active I10. 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 08/31/2023 Active R53.1 Weakness 09/07/2023 Active VITAL SIGNS Date Time Diastolic blood pressure Systolic blood pressure Body height Body weight Temperature SpO2 Blood Sugar Pulse Respirations 27180 214 31755 8 70.00 mm[Hg] - Sitting 164.00 mm[Hg] - Sitting 98.90 Oral 95.00 % 80.00/ min 20.00/min 56682 215 75752 1 45.00 mm[Hg] - Sitting 122.00 mm[Hg] - Sitting 97.00 Ear 95.00 % 60.00/ min 18.00/min 62458 216 72673 9 66.00 mm[Hg] - Sitting 164.00 mm[Hg] - Sitting 98.70 Ear 95.00 % 71.00/ min 18.00/min 94692 216 51623 1 170.00 NI 56980 216 54252 9 170.00 NI 40863 217 60586 4 169.00 NI 94495 217 75359 7 97.30 Ear 93.00 % 84.00/ min 20.00/min 11338 217 46470 9 63.00 mm[Hg] - Sitting 134.00 mm[Hg] - Sitting 11538 218 32364 5 168.00 NI 80569 229 91308 6 73.00 mm[Hg] - Sitting 154.00 mm[Hg] - Sitting 59 NI 162.60 NI 99.20 Ear 97.00 % 67.00/ min 20.00/min 02407 301 10629 8 90834 301 29237 4 23364 301 79334 5 161.00 NI 70025 301 92437 3 73.00 mm[Hg] - Sitting 154.00 mm[Hg] - Sitting 99.20 Oral 67.00/ min 20.00/min 88151 301 64193 9 51.00 mm[Hg] - Sitting 137.00 mm[Hg] - Sitting 97.70 Ear 98.00 % 75.00/ min 22.00/min 27336 301 21608 0 83323 302 72940 8 70.00 mm[Hg] - Sitting 126.00 mm[Hg] - Sitting 98.60 Oral 91.00 % 91.00/ min 20.00/min 85280 303 30290 7 23724 303 30882 1 67.00 mm[Hg] - Sitting 116.00 mm[Hg] - Sitting 98.90 Ear 96.00 % 65.00/ min 18.00/min 89725 304 29358 8 62.00 mm[Hg] - Sitting 129.00 mm[Hg] - Sitting 96.80 Ear 92.00 % 81.00/ min 18.00/min 98979 305 85353 1 58.00 mm[Hg] - Sitting 122.00 mm[Hg] - Sitting 99.50 Ear 73.00/ min 75959 305 91826 9 162[place]00 [place] [address] 305 62554 3 56.00 mm[Hg] - Sitting 132.00 mm[Hg] - Sitting 100.00 Ear 95.00 % 64.00/ min 20.00/min 98598 306 48248 0 56.00 mm[Hg] - Sitting 116.00 mm[Hg] - Sitting 99.00 Ear 96.00 % 66.00/ min 22.00/min 37155 307 20333 0 65.00 mm[Hg] - Sitting 147.00 mm[Hg] - Sitting 98.90 Ear 91.00 % 61.00/ min 20.00/min 36705 307 94352 8 63364 308 44293 8 50.00 mm[Hg] - Sitting 115.00 mm[Hg] - Sitting 99.30 Ear 97.00 % 63.00/ min 18.00/min 77801 309 14554 4 66.00 mm[Hg] - Sitting 114.00 mm[Hg] - Sitting 99.00 Ear 94.00 % 65.00/ min 18.00/min 78626 310 00940 4 58.00 mm[Hg] - Sitting 123.00 mm[Hg] - Sitting 99.20 Ear 94.00 % 65.00/ min 20.00/min 57757 311 49479 3 71.00 mm[Hg] - Sitting 118.00 mm[Hg] - Sitting 99.50 Ear 94.00 % 75.00/ min 20.00/min 12656 312 64072 4 79.00 mm[Hg] - Sitting 130.00 mm[Hg] - Sitting 98.80 Ear 96.00 % 76.00/ min 18.00/min 67246 314 33837 2 Immunizations Vaccine Date Status COVID-19 09/15/2020 Completed COVID-19 10/20/2020 Completed COVID-19 06/01/2021 Completed (PCV13)Pneumococcal 12/01/2014 Completed (PCV20)Pneumococcal 12/01/2013 Completed
--- OUTSIDE RECORDS SUMMARY | 2023-10-13 18:21 | External Medical Summary ---
Author Name Unknown Address Unknown Organization K0G:[facility] - [address] [place] [address] Laboratory Report Ordering Provider Test Date Status LAVINIA ESCOBAR 09/13/2023 05:53:00 Final Observation Date Value Abnormality Reference (Units ) Status BUN 09/13/2023 05:53:00 21 Above high normal 6-20 (mg/dL) Final Creatinine 09/13/2023 05:53:00 1.7 Above high normal 0.5-1.0 (mg/dL) Final Glomerular filtration rate/1.73 sq M.predicted [Volume Rate/Area] in Serum, Plasma or Blood by Creatinine-based formula (CKD-EPI) 09/13/2023 05:53:00 30 Below low normal >=60 (mL/min) Final eGFR is calculated based on the CKD-EPI 2020 equation SODIUM 09/13/2023 05:53:00 143 135-146 (m mol/L) Final Potassium 09/13/2023 05:53:00 4.6 3.5-5.1 (m mol/L) Final Cl 09/13/2023 05:53:00 108 Above high normal 98 -107 (mmol/L) Final CO2 09/13/2023 05:53:00 27 22-32 (mmo l/L) Final Anion gap 09/13/2023 05:53:00 8 7-15 (mmol /L) Final Glucose 09/13/2023 05:53:00 101 70-120 (mg /dL) Final Calcium 09/13/2023 05:53:00 9.6 8.4-10.2 ( mg/dL) Final Performing Location [facility] [address] [place] [address]
--- OUTSIDE RECORDS SUMMARY | 2023-10-13 18:21 | External Medical Summary | Summary of Care ---
Author Name Unknown Organization [facility] Address [address] [place] [address] Phone [phone] Care Team Providers Care Academic Support Director Name Role Phone Tameka Hooper MD Primary Care Prov ider Encounter Details Date Type Department Care Team (Late st Contact Info) Description 09/07/2023 Orders Only Lab Mobile Phlebotomy [facility] [address] [place] [address] Ephraim Burgess MD [address] [place] [address] [place] [address] CKD (chronic kidney disease), symptom management only*; Anemia Allergies Active Allergy Reactions Criticality Noted Date Comments Amoxicillin Rash 02/07/2020 Bactrim Rash 12/15/2011 Ciprofloxacin Rash 12/15/2011 Diltiazem Rash 05/29/2019 Piroxicam Rash 12/15/2011 Cephalexin Rash 12/15/2011 Meloxicam Rash 05/29/2019 Other reaction(s): Other Cilostazol Rash,Unknown 12/15/2011 Sulfamethoxazole High 01/19/2023 Other Reaction(s): Rash Trimethoprim High 01/19/2023 Other Reaction(s): Rash documented as of this encounter (statuses as of 09/07/2023) Medications Medication Sig Dispensed Refills Start Date [...] A DAY 60 g 5 09/01/2023 Active Acetaminophen 325 MG Oral Tablet (Tylenol) [...] OF BREATH OR WHEEZING. 18 g 5 09/07/2023 Active Anoro Ellipta 62.5-25 MCG/ACT Inhalation Aerosol Powder Breath ActivatedIndicatio ns:COPD, moderate (HCC) Inhale 1 Puff by mouth in the morning. 1 puff daily. 60 Blister Dosing Unit 3 09/07/2023 Active Budesonide 0.25 MG/2ML Inhalation Suspension (Pulmicort)Indicat ions:COPD, moderate (HCC) INHALE CONTENTS OF ONE VIAL (2ML) TWICE DAILY 60 mL 4 09/07/2023 Active Calcium 1000 + D 1000-20 MG-MCG Oral Tablet (Calcium Carb-Cholecalcifer ol) Take 1 Tablet by mouth daily. 90 Tablet 2 09/07/2023 Active Escitalopram Oxalate 10 MG Oral Tablet (Lexapro)Indicatio ns:Major depressive disorder, single episode, unspecified Take 1 Tablet by mouth in the morning. 90 Tablet 1 09/07/2023 Active Ferrous Sulfate 325 (65 Fe) MG Oral Tablet (Feosol) TAKE 1 TABLET BY MOUTH EVERY DAY WITH BREAKFAST 90 Tablet 1 09/07/2023 Active Fish Oil 500 MG Oral Capsule Take 1 Capsule by mouth in the morning. Take by mouth.. 90 Capsule 3 09/07/2023 Active Furosemide 20 MG Oral Tablet (Lasix)Indications :Hypertensive kidney disease with stage 3b chronic kidney disease (HCC) Take 1 Tablet by mouth in the morning. for fluid accumulation or weight gain. 90 Tablet 3 09/07/2023 Active guaiFENesin ER 600 MG Oral Tablet Extended Release 12 Hour (Humibid LA) Take 1 Tablet by mouth in the morning and 1 Tablet before bedtime. 60 Tablet 3 09/07/2023 Active Ipratropium-Albute rol 0.5-2.5 (3) MG/3ML Inhalation Solution (Duoneb)Indication s:COPD, moderate (HCC) Inhale 3 mL via nebulizer every 4 hours as needed for Wheezing. 3ml vial in nebuilzer every four hours as needed for wheezing 3 mL 4 09/07/2023 Active Lisinopril 10 MG Oral Tablet (Prinivil)Indicati ons:Hypertensive kidney disease with stage 3b chronic kidney disease (HCC) Take 1 Tablet by mouth in the morning. 90 Tablet 09/07/2023 Active Mesalamine 1.2 GM Oral Tablet Delayed Release (Lialda)Indication s:IBD (inflammatory bowel disease) Take 3 Tablets by mouth in the morning. 270 Tablet 09/07/2023 Active Pantoprazole Sodium 40 MG Oral Tablet Delayed Release (Protonix)Indicati ons:IBD (inflammatory bowel disease) Take 1 Tablet by mouth in the morning. 90 Tablet 09/07/2023 Active PreserVision AREDS 2 Oral Tablet Chewable Take 1 Tablet by mouth daily. 90 Tablet 09/07/2023 Active Restasis 0.05 % Ophthalmic Emulsion INSTILL 1 DROP INTO EACH EYE TWICE DAILY 1.5 mL 09/07/2023 Active Rivaroxaban 15 MG Oral Tablet (Xarelto)Indicatio ns:Chronic atrial fibrillation (HCC) Take 1 Tablet by mouth in the morning. 90 Tablet 09/07/2023 Active Solifenacin Succinate 5 MG Oral Tablet (VESIcare)Indicati ons:Urge incontinence,Urina ry frequency,Urinary urgency,Mixed incontinence Take 1 Tablet by mouth in the morning. 90 Tablet 09/07/2023 Active Systane 0.4-0.3 % Ophthalmic Solution (Artificial Tears) as needed 10 mL 09/07/2023 Active Verapamil HCl ER 120 MG Oral Tablet Extended Release (Isoptin SR) Take 1 Tablet by mouth in the morning. 30 Tablet 5 09/07/2023 Active Vitamin C 500 MG Oral Tablet Chewable Take 1 Tablet by mouth in the morning. 30 Tablet 5 09/07/2023 Active Cefuroxime Axetil 250 MG Oral Tablet (Ceftin) Take 1 Tablet by mouth in the morning and 1 Tablet before bedtime. 14 Tablet 0 09/07/2023 Active documented as of this encounter (statuses as of 09/07/2023) Active Problems Problem Noted Date Diagnosed Date [...] as of this encounter (statuses as of 09/07/2023) Resolved Problems Problem Noted Date Diagnosed Date [...] as of this encounter (statuses as of 09/07/2023) Immunizations Name Administration Dates Next Due COVID-19 [...] Care Team (Late st Contact Info) Description 09/08/2023 8:20 AM EST Laboratory Lab Mobile Phlebotomy [address] [place] [address] 09/19/2023 9:40 AM EDT Office Visit Family Medicine [address] [place] [phone] Tameka Hooper MD [address] [place] [address] [place] [address] 10/23/2023 2:30 PM EDT Office Visit Rheumatology [address] [place] [phone] Jessica Stubbs CRNP [address] [facility] [place] [address] 10/31/2023 1:00 PM EDT Cardiac Studies Cardiac Studies, [facility] [address] [place], [place] [address] 11/01/2023 9:30 AM EDT Procedure Only Endoscopy, [facility] [address] [place], [place] [address] Gasper Kim, DO [address] [place], [place] [address] 11/01/2023 10:00 AM EDT Procedure Only Endoscopy, [facility] [address] [place], [place] [address] Gasper Kim, DO [address] [place] [address] 11/14/2023 12:20 PM EDT Office Visit Gastroenterology, [facility] [address] [place] [address] Gasper Kim, DO [address] [place], [place] [address] 11/23/2023 3:00 PM EDT Office Visit Family Medicine [address] [place] [phone] Betsey Cramer CRNP [address] [place] [address] [place] [address] 03/26/2024 1:30 PM EDT Office Visit Nephrology [address] [place] [address] ZemaAyana hurtado PA-C [address] [place] [address] 05/01/2024 3:00 PM EDT Office Visit Dermatology [address] [place] [address] Anya Pratt PA-C [address] [place] [address] [place] [address] Scheduled Orders Name Type Priority Associated Diagnoses Orde r Schedule COMPREHENSIVE METABOLIC PANEL Lab Routine CKD (chronic kidney disease), symptom management only Anemia Expected: 09/08/2023, Expires: 09/06/2024 CBC WITH WBC DIFFERENTIAL Lab Routine CKD (chronic kidney disease), symptom management only Anemia Expected: 09/08/2023, Expires: 09/06/2024 Health Maintenance Due Date Last Done Comments DISCUSS TOBACCO CESSATION (REFER TO SMARTSET #3291) 1940 COVID-19 Vaccine ( season) 2023 06/01/2021, 10/20/2020, 09/15/2020 Influenza Vaccine (FLU shot) (#1) 2023 Albumin/Creatinine Ratio 08/15/2023 08/15/2022, 01/31 CKD PHOS USE SMARTSET 13611 12/28/202312/02, 04/26/2022, 11/23/2021, Additional history exists GFR 03/03/2024 09/01/2023, 08/03, 02/14/2023, Additional history exists DXA Scan 08/01/2024 08/01/2022, 07/05, 07/07/2020, Additional history exists Depression Screening 08/21/2024 08/21/2023 O2 ASSESSMENT COMPLETED IN PAST YEAR FOR COPD 08/24/2024 08/24/2023 CKD HGB USE SMARTSET 04195 08/31/202408/31, 09/01/2023, 08/16/2023, Additional history exists COLONOSCOPY-EVERY 5 YRS AGES 18-100 07/31/2028 07/31/2023, 02/23/2022, 02/23/2022, Additional history exists DTaP,Tdap,and Td Vaccines (2 - Td or Tdap) 08/07/2030 08/07/2020 (Not indicated), 09/01/1998 Pneumococcal Vaccine: 65+ Years Completed 05/16/2016, 12/01/2014, 12/01/2013, Additional history exists VITAMIN D LEVEL ONCE IN A LIFETIME-USE SMARTSET# [id number] Completed 12/27/2022, 08/12/2022, 03/15/2022, Additional history exists [...] as of this encounter Visit Diagnoses Diagnosis CKD (chronic kidney disease), symptom management only- Primary Chronic kidney disease, unspecified Anemia Anemia, unspecified documented in this encounter Advance Directives Healthcare Agents on File Name Relationship Healthcare Agent Relationshi p Communication Juan aDniel Beaulieu Adult Child Health Care Repr esentative (appointed verbally by patient or by statute hierarchy) Care Teams Academic Support Director Relationship Specialty Start Date End Date Tameka Hooper MD [address] [place] [address] [place] [address] PCP - General Family Medicine 05/29/19 documented as of this encounter
--- OUTSIDE RECORDS SUMMARY | 2023-10-13 18:21 | External Medical Summary | Summary of Care ---
Author Name Unknown Organization [facility] Address [address] [place] [address] Phone [phone] Care Team Providers Care Child Care Team Lead Name Role Phone Tameka Hooper MD Primary Care Prov ider Encounter Details Date Type Department Care Team (Late st Contact Info) Description 09/13/2023 Orders Only Lab Mobile Phlebotomy [facility] [address] [place] [address] Ephraim Burgess MD [address] [place] [address] [place] [address] CKD (chronic kidney disease), symptom management only* Allergies Active Allergy Reactions Criticality Noted Date Comments Amoxicillin Rash 02/07/2020 Bactrim Rash 12/15/2011 Ciprofloxacin Rash 12/15/2011 Diltiazem Rash 05/29/2019 Piroxicam Rash 12/15/2011 Cephalexin Rash 12/15/2011 Meloxicam Rash 05/29/2019 Other reaction(s): Other Cilostazol Rash,Unknown 12/15/2011 Sulfamethoxazole High 01/19/2023 Other Reaction(s): Rash Trimethoprim High 01/19/2023 Other Reaction(s): Rash documented as of this encounter (statuses as of 09/13/2023) Medications Medication Sig Dispensed Refills Start Date [...] and 1 Tablet before bedtime. 60 Tablet 09/07/2023 Active Ipratropium-Albute rol 0.5-2.5 (3) MG/3ML [...] by mouth in the morning. 30 Tablet 09/07/2023 Active Vitamin C 500 MG Oral Tablet Chewable Take 1 Tablet by mouth in the morning. 30 Tablet 5 09/07/2023 Active Cefuroxime Axetil 250 MG Oral Tablet (Ceftin) Take 1 Tablet by mouth in the morning and 1 Tablet before bedtime. 14 Tablet 0 09/07/2023 Active documented as of this encounter (statuses as of 09/13/2023) Active Problems Problem Noted Date Diagnosed Date [...] as of this encounter (statuses as of 09/13/2023) Resolved Problems Problem Noted Date Diagnosed Date [...] as of this encounter (statuses as of 09/13/2023) Immunizations Name Administration Dates Next Due COVID-19 [...] Care Team (Late st Contact Info) Description 09/13/2023 8:00 AM EDT Laboratory Lab Mobile Phlebotomy [address] [place] [address] 09/19/2023 9:40 AM EDT Office Visit Family Medicine [address] [place] [phone] Tameka Hooper MD [address] [place] [address] [place] [address] 10/23/2023 2:30 PM EDT Office Visit Rheumatology [address] [place] [phone] Jessica Stubbs CRNP [address] [facility] [place] [address] 10/31/2023 1:00 PM EDT Cardiac Studies Cardiac Studies, [facility] [address] [place], [place] [address] 11/01/2023 9:30 AM EDT Procedure Only Endoscopy, [facility] [address] [place], [place] [address] Gasper Kim, DO [address] [place] [address] 11/01/2023 10:00 AM EDT Procedure Only Endoscopy, [facility] [address] [place], [place] [address] Gasper Kim, DO [address] [place], [place] [address] 11/23/2023 3:00 PM EDT Office Visit Family Medicine [address] [place] [phone] Betsey Cramer CRNP [address] [place] [address] [place] [address] 03/26/2024 1:30 PM EDT Office Visit Nephrology [address] [place] [address] ZemaAyana hurtado PA-C [address] [place] [address] 05/01/2024 3:00 PM EDT Office Visit Dermatology [address] [place] [address] Anya Pratt PA-C [address] [place] [address] [place] [address] Scheduled Orders Name Type Priority Associated Diagnoses Orde r Schedule BASIC METABOLIC PANEL Lab Routine CKD (chronic kidney disease), symptom management only Expected: 09/13/2023, Expires: 09/12/2024 Health Maintenance Due Date Last Done Comments DISCUSS TOBACCO CESSATION (REFER TO SMARTSET #2010) 1940 COVID-19 Vaccine (2022- season) 2023 06/01/2021, 10/20/2020, 09/15/2020 Influenza Vaccine (FLU shot) (#1) 2023 Albumin/Creatinine Ratio 08/15/2023 08/15/2022, 01/31 CKD PHOS USE SMARTSET 34755 12/28/202312/02, 04/26/2022, 11/23/2021, Additional history exists GFR 03/13/2024 09/11/2023, 03/2024, 09/08/2023, Additional history exists DXA Scan 08/01/2024 08/01/2022, 07/05, 07/07/2020, Additional history exists Depression Screening 08/21/2024 08/21/2023 O2 ASSESSMENT COMPLETED IN PAST YEAR FOR COPD 08/24/2024 08/24/2023 CKD HGB USE SMARTSET 31237 09/10/202409/10, 09/08/2023, 09/08/2023, Additional history exists COLONOSCOPY-EVERY 5 YRS AGES 18-100 07/31/2028 07/31/2023, 02/23/2022, 02/23/2022, Additional history exists DTaP,Tdap,and Td Vaccines (2 - Td or Tdap) 08/07/2030 08/07/2020 (Not indicated), 09/01/1998 Pneumococcal Vaccine: 65+ Years Completed 05/16/2016, 12/01/2014, 12/01/2013, Additional history exists VITAMIN D LEVEL ONCE IN A LIFETIME-USE SMARTSET# [id number] Completed 12/27/2022, 08/12/2022, 03/15/2022, Additional history exists [...] management only- Primary Chronic kidney disease, unspecified documented in this encounter Advance Directives Healthcare Agents on File Name Relationship Healthcare Agent Relationshi p Communication Juan Daniel Beaulieu Adult Child Health Care Repr esentative (appointed verbally by patient or by statute hierarchy) Care Teams Child Care Team Lead Relationship Specialty Start Date End Date Tameka Hooper MD [address] [place] [address] [place] [phone] PCP - General Family Medicine 05/29/19 documented as of this encounter
--- OUTSIDE RECORDS SUMMARY | 2023-10-13 18:21 | External Medical Summary ---
Author Name Unknown Address Unknown Organization [id number]:[facility] [place] [address] [facility] [address] Laboratory Report Ordering Provider Test Date Status LAVINIA ESCOBAR 09/08/2023 06:01:00 Final Observation Date Value Abnormality Reference (Units ) Status SYNC LEUKOCYTES IN BLOOD BY AUTOMATED COUNT 09/08/2023 06:01:00 12.82 Above high normal 4.00-10.80 (K/uL) Final Segs 09/08/2023 06:01:00 69.9 40.0-75.0 (%) Final Lymphs % 09/08/2023 06:01:00 15.7 Below low normal 18.0-42.0 (%) Final Monos 09/08/2023 06:01:00 11.5 Above high normal 1.0-11.0 (%) Final Eosinophils 09/08/2023 06:01:00 1.8 0.0-6.0 (%) Final Basos 09/08/2023 06:01:00 0.2 0.0-2.0 (%) Final Immature Granulocyte, Percent 09/08/2023 06:01:00 0.9 0.0-2.0 (%) Final Absolute Segs 09/08/2023 06:01:00 8.98 Above high normal 1.80-7.70 (K/uL) Final Lymphs, absolute 09/08/2023 06:01:00 2.01 1.00-4.80 (K/ul) Final Monos, Abs 09/08/2023 06:01:00 1.47 Above high normal 0.00-1.10 (K/uL) Final Eos, Abs 09/08/2023 06:01:00 0.23 0.00-0.70 (K/uL) Final Basos, Abs 09/08/2023 06:01:00 0.02 0.00-0.20 (K/uL) Final Immature Granulocytes, Number 09/08/2023 06:01:00 0.11 0.00-0.20 (K/uL) Final Performing Location [facility] [address]handari. [facility] [id number]
--- OUTSIDE RECORDS SUMMARY | 2023-10-13 18:21 | External Medical Summary ---
Author Name Unknown Address Unknown Organization [id number]:LABORATORY [place] [address] [place] [address] Laboratory Report Ordering Provider Test Date Status LAVINIA ESCOBAR 09/11/2023 06:13:00 Final Observation Date Value Abnormality Reference (Units ) Status BUN 09/11/2023 06:13:00 16 6-20 (mg/dL) Final Creatinine 09/11/2023 06:13:00 1.7 Above high normal 0.5-1.0 (mg/dL) Final Glomerular filtration rate/1.73 sq M.predicted [Volume Rate/Area] in Serum, Plasma or Blood by Creatinine-based formula (CKD-EPI) 09/11/2023 06:13:00 30 Below low normal >=60 (mL/min) Final eGFR is calculated based on the CKD-EPI 2020 equation SODIUM 09/11/2023 06:13:00 142 135-146 (m mol/L) Final Potassium 09/11/2023 06:13:00 3.9 3.5-5.1 (m mol/L) Final Cl 09/11/2023 06:13:00 108 Above high normal 98 -107 (mmol/L) Final CO2 09/11/2023 06:13:00 22 22-32 (mmo l/L) Final Anion gap 09/11/2023 06:13:00 12 7-15 (mmol /L) Final Glucose 09/11/2023 06:13:00 102 70-120 (mg /dL) Final Calcium 09/11/2023 06:13:00 8.6 8.4-10.2 ( mg/dL) Final Performing Location LAB[facility]ATORY [facility] [place] [address] [place] [address]
--- OUTSIDE RECORDS SUMMARY | 2023-10-13 18:21 | External Medical Summary | Summary of Care ---
Author Name Unknown Organization [facility] Address [address] [place] [address] Phone [phone] Care Team Providers Care Hand Carver Name Role Phone Tameka Hooper MD Primary Care Prov ider Reason for Visit * Reason Onset Date Comments Skilled Visit 09/12/2023 Encounter Details Date Type Department Care Team (Latest Contact Info) Description 09/12/2023 7:00 AM EDT Group Home Visit [facility] [address] [place] [address] Bouchra Slater PA-C [address], [place] [phone] LOPEZ (acute kidney injury) (HCC)*; Urinary tract infection due to Proteus; Chronic hypoxemic respiratory failure (HCC); Hypertensive kidney disease with stage 3b [...] as of this encounter (statuses as of 09/12/2023) Medications Medication Sig Dispensed Refills Start Date [...] as of this encounter (statuses as of 09/12/2023) Active Problems Problem Noted Date Diagnosed Date [...] as of this encounter (statuses as of 09/12/2023) Resolved Problems Problem Noted Date Diagnosed Date [...] as of this encounter (statuses as of 09/12/2023) Immunizations Name Administration Dates Next Due COVID-19 [...] Progress Notes * Bouchra Slater PA-C - 09/12/2023 3:06 PM EDT Name: Eliazar Beaulieu Date of :1940 TRANSITION EVENT: Type: Skilled visit Date: September 11 Code Status: Full Code This note pertains to care provided at [facility]. Please see facility medical record for original note. This note is not to be edited or addended in [employer]. Editing or addending needs to occur in the facilities medical record. Subjective: Eliazar Beaulieu is a 83 year old female. Patient being seen for skilled visit Chief Complaint Patient presents with Skilled Visit HPI: pt's discharge to home has been postponed due to development of LOPEZ due to nausea/vomiting andUTI due to proteus. Nausea and vomiting improved with IVF for hydration and initiation of treatmentfor UTI with Ceftin 250mg bid. Pt is now afebrile. Eating and drinking at her baseline . Vital signs stable. No diarrhea. Pt is concerned about returning home too soon. States she's feelling stronger. Breathing has been stable. CBC Results: Results for orders placed or performed in visit on 09/11/23 CBC Result Value Ref Range WBC 9.75 4.00 - 10.80 K/uL RBC 2.89 3.85 - 5.15 M/uL HGB 8.3 (L) 12.0 - 15.3 g/dL HCT 27.5 (L) 36.0 - 45.2 % MCV 95.2 81.5 - 97.5 fL MCH 28.7 27.0 - 34.0 pg MCHC 30.2 32.0 - 36.0 g/dL RDW 15.8 11.5 - 15.5 % PLT 297 140 - 400 K/uL MPV 9.4 6.6 - 11.1 fL Hemoglobin Results: Lab Results Component Value Date/Time HGB 8.3 (L) 09/11/2023 06:13 AM HGB 8.0 (L) 09/08/2023 06:01 AM HGB 8.9 (L) 09/01/2023 05:48 AM HGB 13.2 12/10/2020 12:00 AM HGB 14.8 12/08/2020 12:00 AM HGB 14.7 02/04/2020 03:11 PM HGB 13.4 03/26/2019 10:51 AM Basic Panel Results: Results for orders placed or performed in visit on 09/11/23 BASIC METABOLIC PANEL Result Value Ref Range BUN 16 6 - 20 mg/dL Creatinine 1.7 (H) 0.5 - 1.0 mg/dL Estimated Glomerular Filtration Rate 30 (L) >=60 mL/min Sodium 142 135 - 146 mmol/L Potassium 3.9 3.5 - 5.1 mmol/L Chloride 108 (H) 98 - 107 mmol/L CO2 22 22 - 32 mmol/L Anion Gap 12 7 - 15 mmol/L Glucose 102 70 - 120 mg/dL Calcium 8.6 8.4 - 10.2 mg/dL Creatinine Results: Lab Results Component Value Date/Time CREATININE - [facility] 1.7 (H) 09/11/2023 06:13 AM CREATININE - [facility] 2.1 (H) 09/08/2023 06:01 AM CREATININE - [facility] 1.5 (H) 09/01/2023 05:48 AM CREATININE - [facility] 1.3 (H) 07/27/2020 12:40 PM CREATININE - [facility] 1.5 (H) 07/10/2020 12:02 PM CREATININE - [facility] 1.3 (H) 04/20/2020 02:31 PM CREATININE, RANDOM URINE - [facility] 115 12/28/2022 02:55 PM CREATININE, RANDOM URINE - [facility] 79 08/15/2022 02:16 PM CREATININE, RANDOM URINE - [facility] 123 02/09/2021 01:48 PM CREATININE, RANDOM URINE - [facility] 73 04/20/2020 02:41 PM CREATININE-[facility] 1.86 (A) 09/09/2023 12:00 AM CREATININE-[facility] 1.29 (A) 12/10/2020 12:00 AM CREATININE-[facility] 1.28 (A) 12/08/2020 12:00 AM Potassium Results: Lab Results Component Value Date/Time POTASSIUM - [facility] 3.9 09/11/2023 06:13 AM POTASSIUM - [facility] 4.0 09/08/2023 06:01 AM POTASSIUM - [facility] 4.3 09/01/2023 05:48 AM POTASSIUM - [facility] 4.2 07/27/2020 12:40 PM POTASSIUM - [facility] 3.9 07/10/2020 12:02 PM POTASSIUM - [facility] 4.4 04/20/2020 02:31 PM POTASSIUM-[facility] 3.4 (A) 09/09/2023 12:00 AM POTASSIUM-[facility] 4.5 12/10/2020 12:00 AM POTASSIUM-[facility] 4.3 12/08/2020 12:00 AM Sodium Results: Lab Results Component Value Date/Time SODIUM - [facility] 142 09/11/2023 06:13 AM SODIUM - [facility] 140 09/08/2023 06:01 AM SODIUM - [facility] 144 09/01/2023 05:48 AM SODIUM - [facility] 144 07/27/2020 12:40 PM SODIUM - [facility] 143 07/10/2020 12:02 PM SODIUM - [facility] 144 04/20/2020 02:31 PM Patient Active Problem List Diagnosis Code 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[facility]) G47.33, J44.9 Macular degeneration H35.30 S/P bilateral cataract extraction Z98.41, Z98.42 Colostomy status ([facility]) Z93.3 Paroxysmal atrial fibrillation ([facility]) I48.0 H/O resection of large bowel Z90.49 Diverticulosis of large intestine without hemorrhage K57.30 Mixed hyperlipidemia E78.2 Tobacco use disorder F17.200 Chronic bilateral low back pain without sciatica M54.50, G89.29 DDD (degenerative disc disease), lumbar M51.36 Stage 3b chronic kidney disease N18.32 Senile osteoporosis M81.0 Major depressive disorder with single episode, in full remission ([facility]) F32.5 Hypoparathyroidism ([facility]) E20.9 Chronic hypoxemic respiratory failure ([facility]) J96.11 History of healed osteoporosis fracture Z87.310 Essential (primary) hypertension I10 COPD, group B, by GOLD 2017 classification ([facility]) J44.9 Hypertensive kidney disease with stage 3b chronic kidney disease ([facility]) I12.9, N18.32 Other specified peripheral vascular diseases ([facility]) I73.89 Hx of actinic keratosis Z87.2 IBD (inflammatory bowel disease) K52.9 Gastrointestinal hemorrhage associated with gastric ulcer K25.4 Schatzki's ring of distal esophagus K22.2 Hiatal hernia K44.9 Full code status Z78.9 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 ([facility]) K51.40 Nephrolithiasis N20.0 Peristomal hernia K46.9 Bilateral pleural effusion J90 Interstitial lung disease ([facility]) J84.9 Past Medical History: Diagnosis Date Chronic atrial fibrillation ([facility]) 05/29/2019 Chronic bilateral low back pain without sciatica 02/04/2020 Colostomy status ([facility]) 05/29/2019 COPD, moderate ([facility]) 12/15/2011 Diverticulitis of colon Essential (primary) hypertension 07/10/2019 Fracture of vertebra due to osteoporosis with routine healing 02/07/2020 Generalized osteoarthritis Glaucoma 12/15/2011 H/O multiple pulmonary nodules pt f/u with [facility] healthcare administrator next yearly CT is due in May 2022 Macular degeneration 05/29/2019 Mixed hyperlipidemia 05/29/2019 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HCC) 12/15/2011 S/P bilateral cataract extraction 05/29/2019 Upper GI bleed 07/25/2023 gastric ulcer, hgb 6.9 Past Surgical History: Procedure Laterality Date COLONOSCOPY, DIAGNOSTIC (RECTUM) 08/01/2019 adenomatous polyp, repeat 5 yrs/COLONOSCOPY FLEXIBLE PROXIMAL DIAGNOSTIC performed by Gasper Kim DO at ENDOSCOPY [facility] COLONOSCOPY, DIAGNOSTIC (RECTUM) N/A 02/23/2022 [facility], Colonoscopy , Nodular mucosa in ascending & transverse / biopsies biopsies from the colonwere most consistent with inflammatory bowel disease / LENS EXTRACTION, PHACOFRAGMENTATION Bilateral 10/2016 Dr. Diego YAO/CUT OVIDUCT(S) 1974 PARTIAL REMOVAL OF COLON 12/06/2018 Diverticulitis REMOVE TONSILS & ADENOIDS, UNDER 14 age [age] UPPER GI ENDOSCOPY 07/26/2023 gastic ulcer/nonobstructing Schatzki ring/small HH/repeat 3 months/EGD/[facility] Family History Problem Relation Age of Onset [...] on file Food Insecurity: No Food Insecurity (08/25/2023) Hunger Vital Sign Worried About Running Out [...] list as this cannot be edited in [employer]. Review of Systems: Constitutional ROS: No change in weight, less weakness, less fatigue and No fevers, sweats, or chills Nose ROS: No nasal stuffiness and No significant epistaxis Mouth/Throat ROS: No thrush or No sore throat Neck ROS: No lumps or masses, No swollen glands, No recent swelling in thyroid area and No significant pain in neck Pulmonary ROS: No cough, sputum, or hemoptysis, No wheezing, No shortness of breath and No recent change in breathing Cardiovascular ROS: No chest pain, No shortness of breath, No edema, No palpitations and No syncope Gastrointestinal ROS: No abdominal pain, No change in bowel habits, No significant change in appetite, No nausea, vomiting, diarrhea, or constipation and No dysphagia Skin/Integumentary ROS: No rash and No itching Neurologic ROS: No headaches and No seizures Psychiatric ROS: No depression, No anxiety and No psychosis OBJECTIVE: PHYSICALEXAM: I reviewed the most recent [...] and rhythm, no chest wall tenderness, lungs clear to auscultation Abdomen: abdomen soft, non-tender, normal bowel sounds and no masses or organomegaly Extremities: no edema, no clubbing, no cyanosis Skin: skin color, texture, turgor are normal, no rashes or significant lesions ASSESSMENT: LOPEZ (acute kidney injury) (HCC) (Primary) Improvement in creatinine with IVF and treatment of UTI Repeat BMP tomorrow Plan for discharge on 09/14/23 Urinary tract infection due to Proteus Complete Ceftin 250mg BID course Chronic hypoxemic respiratory failure (HCC) Stable Continue O2 as directed Continue Budesonide 0.25mg BID and Anoro ellipita 62.5/25mcg daily Hypertensive kidney disease with stage 3b chronic kidney disease (HCC) Stable BP CKD more stable PLAN: Reviewed CBC, BMP, Lytes and Continue present medication(s):as ordered. Halfway Home Treatment Given: as above Electronically signed by: Bouchra Slater PA-C Over 35 minutes were spent in this visit more than half the time was spent counselling or coordinating care. documented in this encounter Plan of Treatment Upcoming Encounters Date Type Department Care Team (Late st Contact Info) Description 09/19/2023 9:40 AM EDT Office Visit Family Medicine [address] [place] [phone] Tameka Hooper MD [address] [place] [address] [place] [address] 10/23/2023 2:30 PM EDT Office Visit Rheumatology [address] [place] [phone] [facility]bs [facility] [place] [address] 10/31/2023 1:00 PM EDT Cardiac Studies Cardiac Studies, [facility] [place] [address] [place] [address] 11/01/2023 9:30 AM EDT Procedure Only Endoscopy, [facility] [address] [place] [address] Gasper Kim DO [address] [place] [address] 11/01/2023 10:00 AM EDT Procedure Only Endoscopy, [facility] [address] [place] [address] Gasper Kim DO [address] [place] [address] 11/23/2023 3:00 PM EDT Office Visit Family Medicine [address] [place] [phone] Betsey Cramer CRNP [address] [place] [address] [place] [address] 03/26/2024 1:30 PM EDT Office Visit Nephrology [address] [place] [address] ZemaAyana hurtado PA-C [address] [place] [address] 05/01/2024 3:00 PM EDT Office Visit Dermatology [address] [place] [address] Anya Pratt PA-C [address] [place] [address] [place] [address] Health Maintenance Due Date Last Done Comments DISCUSS TOBACCO CESSATION (REFER TO SMARTSET #3291) 1940 COVID-19 Vaccine ( season) 2023 06/01/2021, 10/20/2020, 09/15/2020 Influenza Vaccine (FLU shot) (#1) 2023 Albumin/Creatinine Ratio 08/15/2023 08/15/2022, 01/31 CKD PHOS USE SMARTSET [id number] 12/28/2023 06/2 12/2022, 04/26/2022, 11/23/2021, Additional history exists GFR 03/13/2024 09/11/2023, 03/2024, 09/08/2023, Additional history exists DXA Scan 08/01/2024 08/01/2022, 07/05, 07/07/2020, Additional history exists Depression Screening 08/21/2024 08/21/2023 O2 ASSESSMENT COMPLETED IN PAST YEAR FOR COPD 08/24/2024 08/24/2023 CKD HGB USE SMARTSET 83595 09/10/202409/10, 09/08/2023, 09/08/2023, Additional history exists COLONOSCOPY-EVERY 5 YRS AGES 18-100 07/31/2028 07/31/2023, 02/23/2022, 02/23/2022, Additional history exists DTaP,Tdap,and Td Vaccines (2 - Td or Tdap) 08/07/2030 08/07/2020 (Not indicated), 09/01/1998 Pneumococcal Vaccine: 65+ Years Completed 05/16/2016, 12/01/2014, 12/01/2013, Additional history exists VITAMIN D LEVEL ONCE IN A LIFETIME-USE SMARTSET# [id number] Completed 12/27/2022, 08/12/2022, 03/15/2022, Additional history exists [...] as of this encounter Visit Diagnoses Diagnosis LOPEZ (acute kidney injury) (HCC)- Primary Acute kidney failure, unspecified Urinary tract infection due to Proteus Urinary tract infection, site not specified Chronic hypoxemic respiratory failure (HCC) Chronic respiratory failure Hypertensive kidney disease with stage 3b chronic kidney disease (HCC) documented in this encounter Advance Directives Healthcare Agents on File Name Relationship Healthcare Agent Relationshi p Communication Juan Daniel Beaulieu Adult Child Health Care Repr esentative (appointed verbally by patient or by statute hierarchy) Care Teams Hand Carver Relationship Specialty Start Date End Date Tameka Hooper MD [address] [place] [address] [place] [phone] PCP - General Family Medicine 05/29/19 documented as of this encounter
--- OUTSIDE RECORDS SUMMARY | 2023-10-13 18:21 | External Medical Summary ---
Author Name Unknown Address Unknown Organization K01:LABORATORY [facility] - [address] [place] [address] Laboratory Report Ordering Provider Test Date Status LAVINIA ESCOBAR 09/08/2023 06:01:00 Final Observation Date Value Abnormality Reference (Units ) Status WBC, Total 09/08/2023 06:01:00 12.82 Above high normal 4.00-10.80 (K/uL) Final RBC 09/08/2023 06:01:00 2.79 3.85-5.15 (M/uL) Final Hemoglobin 09/08/2023 06:01:00 8.0 Below low normal 12.0-15.3 (g/dL) Final HCT 09/08/2023 06:01:00 28.5 Below low normal 36.0-45.2 (%) Final MCV 09/08/2023 06:01:00 102.2 81.5-97.5 (fL) Final MCH 09/08/2023 06:01:00 28.7 27.0-34.0 (pg) Final MCHC 09/08/2023 06:01:00 28.1 32.0-36.0 (g/dL) Final RDW 09/08/2023 06:01:00 16.3 11.5-15.5 (%) Final Platelets 09/08/2023 06:01:00 309 140-400 (K/uL) Final MPV 09/08/2023 06:01:00 10.2 6.6-11.1 (fL) Final Nucleated erythrocytes/100 leukocytes [Ratio] in Blood by Automated count 09/08/2023 06:01:00 0 <=0 (/100 WBCs) Final Performing Location LABORATORY [facility] - [address] [place] [address]
--- OUTSIDE RECORDS SUMMARY | 2023-10-13 18:21 | External Medical Summary | Summary of Care ---
Author Name Unknown Organization [facility] Address [address] [place] [address] Phone [phone] Care Team Providers Care Hand Carver Name Role Phone Tameka Hooper MD Primary Care Prov ider Reason for Visit * Reason Onset Date Comments Jail Visit - Discharge 09/13/2023 Encounter Details Date Type Department Care Team (Latest Contact Info) Description 09/13/2023 6:30 AM EDT Jail Visit [facility] [address] [place] [address] Bouchra Slater PA-C [address] [place] [place], [place] [phone] Acute on chronic respiratory failure with hypoxia (HCC)*; COPD exacerbation (HCC); Influenza A; Peristomal hernia; Hypertensive kidney disease with stage 3b chronic kidney disease (HCC); IBD (inflammatory bowel disease); Paroxysmal atrial fibrillation (HCC); Colostomy status (HCC); Mixed hyperlipidemia; LOPEZ (acute kidney injury) ([facility]); Urinary tract infection due to Proteus; COPD, moderate (HCC); Chronic atrial fibrillation (HCC); Urge incontinence; Urinary frequency; Urinary urgency; Mixed [...] tab daily 100 Tablet 5 09/01/2023 Active Systane 0.4-0.3 % Ophthalmic Solution (Artificial Tears) as needed 10 mL 5 09/07/2023 Active Albuterol Sulfate HFA 108 (90 Base) [...] TWICE DAILY 60 mL 4 09/13/2023 Active Calcium 1000 + D 1000-20 MG-MCG [...] the morning. 90 Tablet 0 09/13/2023 Active Albuterol Sulfate HFA 108 (90 Base) MCG/ACT Inhalation Aerosol SolutionIndicatio ns:COPD, moderate (HCC) INHALE 2 PUFFS BY MOUTH NEEDED FOR COUGH, SHORTNESS OF BREATH OR WHEEZING. 18 g 5 09/07/2023 4 Discontinu ed(Refill) Anoro Ellipta 62.5-25 MCG/ACT Inhalation Aerosol Powder Breath ActivatedIndicati ons:COPD, moderate (HCC) Inhale 1 Puff by mouth in the morning. 1 puff daily. 60 Blister Dosing Unit 3 09/07/2023 4 Discontinu ed(Refill) Budesonide 0.25 MG/2ML Inhalation Suspension (Pulmicort)Indica tions:COPD, moderate (HCC) INHALE CONTENTS OF ONE VIAL (2ML) TWICE DAILY 60 mL 4 09/07/2023 4 Discontinu ed(Refill) Calcium 1000 + D 1000-20 MG-MCG Oral Tablet (Calcium Carb-Cholecalcife rol) Take 1 Tablet by mouth daily. 90 Tablet 2 09/07/2023 4 Discontinu ed(Refill) Escitalopram Oxalate 10 MG Oral Tablet (Lexapro)Indicati ons:Major depressive disorder, single episode, unspecified Take 1 Tablet by mouth in the morning. 90 Tablet 1 09/07/2023 4 Discontinu ed(Refill) Ferrous Sulfate 325 (65 Fe) MG Oral Tablet (Feosol) TAKE 1 TABLET BY MOUTH EVERY DAY WITH BREAKFAST 90 Tablet 1 09/07/2023 4 Discontinu ed(Refill) Fish Oil 500 MG Oral Capsule Take 1 Capsule by mouth in the morning. Take by mouth.. 90 Capsule 3 09/07/2023 4 Discontinu ed(Refill) Furosemide 20 MG Oral Tablet (Lasix)Indication s:Hypertensive kidney disease with stage 3b chronic kidney disease (HCC) Take 1 Tablet by mouth in the morning. for fluid accumulation or weight gain. 90 Tablet 3 09/07/2023 4 Discontinu ed(Refill) guaiFENesin ER 600 MG Oral Tablet Extended Release 12 Hour (Humibid LA) Take 1 Tablet by mouth in the morning and 1 Tablet before bedtime. 60 Tablet 3 09/07/2023 4 Discontinu ed(Refill) Ipratropium-Albut donna 0.5-2.5 (3) MG/3ML Inhalation Solution (Duoneb)Indicatio ns:COPD, moderate (HCC) Inhale 3 mL via nebulizer every 4 hours as needed for Wheezing. 3ml vial in nebuilzer every four hours as needed for wheezing 3 mL 4 09/07/2023 4 Discontinu ed(Refill) Lisinopril 10 MG Oral Tablet (Prinivil)Indicat ions:Hypertensive kidney disease with stage 3b chronic kidney disease (HCC) Take 1 Tablet by mouth in the morning. 90 Tablet 3 09/07/2023 4 Discontinu ed(Refill) Mesalamine 1.2 GM Oral Tablet Delayed Release (Lialda)Indicatio ns:IBD (inflammatory bowel disease) Take 3 Tablets by mouth in the morning. 270 Tablet 3 09/07/2023 4 Discontinu ed(Refill) Pantoprazole Sodium 40 MG Oral Tablet Delayed Release (Protonix)Indicat ions:IBD (inflammatory bowel disease) Take 1 Tablet by mouth in the morning. 90 Tablet 3 09/07/2023 4 Discontinu ed(Refill) PreserVision AREDS 2 Oral Tablet Chewable Take 1 Tablet by mouth daily. 90 Tablet 3 09/07/2023 4 Discontinu ed(Refill) Restasis 0.05 % Ophthalmic Emulsion INSTILL 1 DROP INTO EACH EYE TWICE DAILY 1.5 mL 5 09/07/2023 4 Discontinu ed(Refill) Rivaroxaban 15 MG Oral Tablet (Xarelto)Indicati ons:Chronic atrial fibrillation (HCC) Take 1 Tablet by mouth in the morning. 90 Tablet 3 09/07/2023 4 Discontinu ed(Refill) Solifenacin Succinate 5 MG Oral Tablet (VESIcare)Indicat ions:Urge incontinence,Urin tangela frequency,Urinary urgency,Mixed incontinence Take 1 Tablet by mouth in the morning. 90 Tablet 3 09/07/2023 4 Discontinu ed(Refill) Verapamil HCl ER 120 MG Oral Tablet Extended Release (Isoptin SR) Take 1 Tablet by mouth in the morning. 30 Tablet 5 09/07/2023 4 Discontinu ed(Refill) Vitamin C 500 MG Oral Tablet Chewable Take 1 Tablet by mouth in the morning. 30 Tablet 5 09/07/2023 4 Discontinu ed(Refill) Cefuroxime Axetil 250 MG Oral Tablet (Ceftin) Take 1 Tablet by mouth in the morning and 1 Tablet before bedtime. 14 Tablet 0 09/07/2023 4 Discontinu ed(Medicat ion List Clean Up) documented as of this [...] 9:40 AM EDT Office Visit Family Medicine [address] [place] [phone] Tameka Hooper MD [address] [place] [address] [place] [address] 10/23/2023 2:30 PM EDT Office Visit Rheumatology [address] [place] [phone] Jessica Stubbs CRNP [address] [place] [address] [place] [address] 10/31/2023 1:00 PM EDT Cardiac Studies Cardiac Studies, [facility] [address] [place] [address] 11/01/2023 9:30 AM EDT Procedure Only Endoscopy, [facility] [address] [place] [address] Gasper Kim, DO [address] [place] [address] 11/01/2023 10:00 AM EDT Procedure Only Endoscopy, [facility] [address] [place] [address] Gasper Kim, DO [address] [place] [address] 11/23/2023 3:00 PM EDT Office Visit Family Medicine [address] [place] [phone] Betsey Cramer CRNP [address] [place] [address] [place] [address] 03/26/2024 1:30 PM EDT Office Visit Nephrology [address] [place] [address] Ayana Anna PA-C [address] [place] [address] 05/01/2024 3:00 PM EDT Office Visit Dermatology [address] [place] [address] Anya Pratt PA-C [address] [place] [address] [place] [address] Health Maintenance Due Date Last Done Comments DISCUSS TOBACCO CESSATION (REFER TO SMARTSET #7373) 1940 COVID-19 Vaccine ( season) 2023 06/01/2021, 10/20/2020, 09/15/2020 Influenza Vaccine (FLU shot) (#1) 2023 Albumin/Creatinine Ratio 08/15/2023 08/15/2022, 01/31 CKD PHOS USE SMARTSET 41037 12/28/202312/02, 04/26/2022, 11/23/2021, Additional history exists GFR 03/15/2024 09/13/2023, 08/31, 09/09/2023, Additional history exists DXA Scan 08/01/2024 08/01/2022, 07/05, 07/07/2020, Additional history exists Depression Screening 08/21/2024 08/21/2023 O2 ASSESSMENT COMPLETED IN PAST YEAR FOR COPD 08/24/2024 08/24/2023 CKD HGB USE SMARTSET 66127 09/10/202409/10, 09/08/2023, 09/08/2023, Additional history exists COLONOSCOPY-EVERY 5 YRS AGES 18-100 07/31/2028 07/31/2023, 02/23/2022, 02/23/2022, Additional history exists DTaP,Tdap,and Td Vaccines (2 - Td or Tdap) 08/07/2030 08/07/2020 (Not indicated), 09/01/1998 Pneumococcal Vaccine: 65+ Years Completed 05/16/2016, 12/01/2014, 12/01/2013, Additional history exists VITAMIN D LEVEL ONCE IN A LIFETIME-USE SMARTSET# [id number] Completed 12/27/2022, 08/12/2022, 03/15/2022, Additional history exists [...] chronic respiratory failure with hypoxia (HCC)- Primary COPD exacerbation (HCC) Obstructive chronic bronchitis with exacerbation Influenza A Influenza with other respiratory manifestations Peristomal hernia Hernia of unspecified site of abdominal cavity without mention of obstruction or gangrene Hypertensive kidney disease with stage 3b chronic kidney disease (HCC) IBD (inflammatory bowel disease) Other and unspecified noninfectious gastroenteritis and colitis Paroxysmal atrial fibrillation (HCC) Atrial fibrillation Colostomy status (HCC) Colostomy status Mixed hyperlipidemia LOPEZ (acute kidney injury) (HCC) Acute kidney failure, unspecified Urinary tract infection due to Proteus Urinary tract infection, site not specified COPD, moderate (HCC) Chronic airway obstruction, not elsewhere classified Chronic atrial fibrillation (HCC) Atrial fibrillation Urge incontinence Urinary frequency Urinary urgency Urgency [...] Start Date End Date Tameka Hooper MD [address] [place] [address] [place] [address] PCP - General Family Medicine 05/29/19 documented as of this encounter
--- OUTSIDE RECORDS SUMMARY | 2023-10-13 18:21 | External Medical Summary | Summary of Care ---
Author Name Unknown Organization [facility] Address [address] [place] [address] Phone [phone] Care Team Providers Care Factory Laborer Name Role Phone Tameka Hooper MD Primary Care Prov ider Reason for Visit * Reason Onset Date Comments Skilled Visit 09/11/2023 Encounter Details Date Type Department Care Team (Latest Contact Info) Description 09/11/2023 6:00 AM EDT Halfway Visit [facility] [address] [place] [address] Bouchra Slater PA-C [address] [place], [place] [phone] LOPEZ (acute kidney injury) (HCC)*; Hypertensive kidney disease with stage 3b chronic kidney disease (HCC); Urinary tract infection due to Proteus; Chronic hypoxemic respiratory failure (HCC) Allergies Active Allergy Reactions Criticality Noted Date Comments Amoxicillin Rash 02/07/2020 Bactrim Rash 12/15/2011 Ciprofloxacin Rash 12/15/2011 Diltiazem Rash 05/29/2019 Piroxicam Rash 12/15/2011 Cephalexin Rash 12/15/2011 Meloxicam Rash 05/29/2019 Other reaction(s): Other Cilostazol Rash,Unknown 12/15/2011 Sulfamethoxazole High 01/19/2023 Other Reaction(s): Rash Trimethoprim High 01/19/2023 Other Reaction(s): Rash documented as of this encounter (statuses as of 09/11/2023) Medications Medication Sig Dispensed Refills Start Date [...] as of this encounter (statuses as of 09/11/2023) Active Problems Problem Noted Date Diagnosed Date [...] as of this encounter (statuses as of 09/11/2023) Resolved Problems Problem Noted Date Diagnosed Date [...] as of this encounter (statuses as of 09/11/2023) Immunizations Name Administration Dates Next Due COVID-19 [...] 9:40 AM EDT Office Visit Family Medicine [address] [place] [phone] Tameka Hooper MD [address] [place] [address] [place] [address] 10/23/2023 2:30 PM EDT Office Visit Rheumatology [address] [place] [phone] Jessica Stubbs CRNP [address] [facility] [address] [place] [address] 10/31/2023 1:00 PM EDT Cardiac Studies Cardiac Studies, [facility] [address] [facility] [place], [place] [address] 11/01/2023 9:30 AM EDT Procedure Only Endoscopy, [facility] [address] [place], [place] [address] Gasper Kim, DO [address] [place] [address] 11/01/2023 10:00 AM EDT Procedure Only Endoscopy, [facility] [address] [place] [address] Gasper Kim, DO [address] [place] [address] 11/23/2023 3:00 PM EDT Office Visit Family Medicine [address] [place] [phone] Betsey Cramer CRNP [address] [place] [address] [place] [address] 03/26/2024 1:30 PM EDT Office Visit Nephrology [address] [place] [address] ZeAyana ladd PA-C [address] [place] [address] 05/01/2024 3:00 PM EDT Office Visit Dermatology [address] [place] [address] Anya Pratt PA-C [address] [place] [address] [place] [address] Health Maintenance Due Date Last Done Comments DISCUSS TOBACCO CESSATION (REFER TO SMARTSET #5897) 1940 COVID-19 Vaccine ( season) 2023 06/01/2021, 10/20/2020, 09/15/2020 Influenza Vaccine (FLU shot) (#1) 2023 Albumin/Creatinine Ratio 08/15/2023 08/15/2022, 01/31 CKD PHOS USE SMARTSET 23607 12/28/202312/02, 04/26/2022, 11/23/2021, Additional history exists GFR 03/10/2024 09/08/2023, 03/0 07/2023, 08/14/2023, Additional history exists DXA Scan 08/01/2024 08/01/2022, 07/05, 07/07/2020, Additional history exists Depression Screening 08/21/2024 08/21/2023 O2 ASSESSMENT COMPLETED IN PAST YEAR FOR COPD 08/24/2024 08/24/2023 CKD HGB USE SMARTSET 69232 09/10/202409/10, 09/08/2023, 09/08/2023, Additional history exists COLONOSCOPY-EVERY 5 YRS AGES 18-100 07/31/2028 07/31/2023, 02/23/2022, 02/23/2022, Additional history exists DTaP,Tdap,and Td Vaccines (2 - Td or Tdap) 08/07/2030 08/07/2020 (Not indicated), 09/01/1998 Pneumococcal Vaccine: 65+ Years Completed 05/16/2016, 12/01/2014, 12/01/2013, Additional history exists VITAMIN D LEVEL ONCE IN A LIFETIME-USE SMARTSET# 15471 Completed 12/27/2022, 08/12/2022, 03/15/2022, Additional history exists [...] injury) (HCC)- Primary Acute kidney failure, unspecified Hypertensive kidney disease with stage 3b chronic kidney disease (HCC) Urinary tract infection due to Proteus Urinary tract infection, site not specified Chronic hypoxemic respiratory failure (HCC) Chronic respiratory failure documented in this encounter Advance Directives Healthcare Agents on File Name Relationship Healthcare Agent Relationshi p Communication Juan Daniel [facility] Child Health Care Repr esentative (appointed verbally by patient or by statute hierarchy) Care Teams Factory Laborer Relationship Specialty Start Date End Date Tameka Hooper MD [address] [place] [address] [place] [phone] PCP - General Family Medicine 05/29/19 documented as of this encounter
--- OUTSIDE RECORDS SUMMARY | 2023-10-13 18:21 | External Medical Summary | Summary of Care ---
Author Name Unknown Organization [facility] Address [address] [place] [address] Phone [phone] Care Team Providers Care Loan Administrator Name Role Phone Tameka Hooper MD Primary Care Prov ider Encounter Details Date Type Department Care Team (Late st Contact Info) Description 09/12/2023 Orders Only [facility] Medicine [address] [phone] Tameka Hooper MD [address] [place] [address] [place] [address] Allergies Active Allergy Reactions Criticality Noted [...] fluid accumulation or weight gain. 90 Tablet 09/07/2023 Active guaiFENesin ER 600 MG Oral [...] 9:40 AM EDT Office Visit Family Medicine [address] [place] [phone] Tameka Hooper MD [address] [place] [address] [place] [address] 10/23/2023 2:30 PM EDT Office Visit Rheumatology [address] [place] [phone] Jessica Stubbs CRNP [address] [facility] [place] [address] 10/31/2023 1:00 PM EDT Cardiac Studies [facility], [facility] [place] [address] 11/01/2023 9:30 AM EDT Procedure Only Endoscopy, [facility] [address] [place], [place] [address] Gasper Kim, DO [address] [place], [place] [address] 11/01/2023 10:00 AM EDT Procedure Only Endoscopy, [facility] [address] [place], [place] [address] Gasper Kim, DO [address] [place], [place] [address] 11/23/2023 3:00 PM EDT Office Visit Family Medicine [address] [place] [phone] Betsey Cramer CRNP [address] [place] [address] [place] [address] 03/26/2024 1:30 PM EDT Office Visit Nephrology [address] [place] [address] ZemaAyana hurtado PA-C [address] [place] [address] 05/01/2024 3:00 PM EDT Office Visit Dermatology [address] [place] [address] Anya Pratt PA-C [address] [place] [address] [place] [address] Health Maintenance Due Date Last Done Comments DISCUSS TOBACCO CESSATION (REFER TO SMARTSET #9241) 1940 COVID-19 Vaccine ( season) 2023 06/01/2021, 10/20/2020, 09/15/2020 Influenza Vaccine (FLU shot) (#1) 2023 Albumin/Creatinine Ratio 08/15/2023 08/15/2022, 01/31 CKD PHOS USE SMARTSET 39172 12/28/202312/02, 04/26/2022, 11/23/2021, Additional history exists GFR 03/13/2024 09/11/2023, 03/2024, 09/08/2023, Additional history exists DXA Scan 08/01/2024 08/01/2022, 07/05, 07/07/2020, Additional history exists Depression Screening 08/21/2024 08/21/2023 O2 ASSESSMENT COMPLETED IN PAST YEAR FOR COPD 08/24/2024 08/24/2023 CKD HGB USE SMARTSET 59948 09/10/202409/10, 09/08/2023, 09/08/2023, Additional history exists COLONOSCOPY-EVERY 5 YRS AGES 18-100 07/31/2028 07/31/2023, 02/23/2022, 02/23/2022, Additional history exists DTaP,Tdap,and Td Vaccines (2 - Td or Tdap) 08/07/2030 08/07/2020 (Not indicated), 09/01/1998 Pneumococcal Vaccine: 65+ Years Completed 05/16/2016, 12/01/2014, 12/01/2013, Additional history exists VITAMIN D LEVEL ONCE IN A LIFETIME-USE SMARTSET# 97657 Completed 12/27/2022, 08/12/2022, 03/15/2022, Additional history exists [...] Procedure Name Priority Date/Time Associated Diagnosis Comments CHEMISTRY-OUTSIDE Routine 09/09/2023 documented in this encounter Results * (ABNORMAL) CHEMISTRY-OUTSIDE (09/09/2023) Not all results display below - see scan for full detail OUTSIDE LAB (SEE SCANNED REPORT) CREATININE-OUTSID E LAB 1.86(A) 0.55 - 1.02 MG/DL OUTSIDE LAB (SEE SCANNED REPORT) EGFR-OUTSIDE LAB 27 ML/MIN OUT SIDE LAB (SEE SCANNED REPORT) POTASSIUM-OUTSIDE LAB 3.4(A) 3.5 - 5.1 MMOL/L OUTSIDE LAB (SEE SCANNED REPORT) GLUCOSE-OUTSIDE LAB 73 70 - 110 MG/DL OUTSIDE LAB (SEE SCANNED REPORT) HOURS FASTING OUTSID E LAB (SEE SCANNED REPORT) TRIGLYCERIDES-OUT SIDE LAB OUTSIDE LAB (SEE SCANNED REPORT) CHOLESTEROL-OUTSI DE LAB OUTSIDE LAB (SEE SCANNED REPORT) HDL-OUTSIDE LAB OUTS AYANA LAB (SEE SCANNED REPORT) CHOL/HDL RATIO-OUTSIDE LAB OUTSIDE LA B (SEE SCANNED REPORT) LDL (CALCULATED)-OUTS AYANA LAB OUTSIDE LAB (SEE SCANNED REPORT) LDL (DIRECT MEASURE)-OUTSIDE LAB OUTSIDE LAB (SEE SCANNED REPORT) HEMOGLOBIN, T0C-XEJFQDO LAB OUTSIDE LAB (SEE SCANNED REPORT) PHOSPHORUS-OUTSID E LAB OUTSIDE LAB (SEE SCANNED REPORT) PTH-OUTSIDE LAB OUTS AYANA LAB (SEE SCANNED REPORT) MICROALBUMIN RATIO-OUTSIDE LAB OUTSIDE LA B (SEE SCANNED REPORT) PROTEIN, UA-OUTSIDE LAB OUTSIDE LAB (SEE SCANNED REPORT) HGB OUTSIDE LA B (SEE SCANNED REPORT) 09/09/2023 Ephraim Burgess MD LABORATORY OUTSIDE LAB (SEE SCANNED REPORT) documented in this encounter Advance Directives Healthcare Agents on File Name Relationship Healthcare Agent Relationshi p Communication Juan Daniel [facility] Adult Child Health Care Repr esentative (appointed verbally by patient or by statute hierarchy) Care Teams Loan Administrator Relationship Specialty Start Date End Date Tameka Hooper MD [address] [place] [address] [place] [address] PCP - General Family Medicine 05/29/19 documented as of this encounter
--- OUTSIDE RECORDS SUMMARY | 2023-10-13 18:21 | External Medical Summary | Summary of Care ---
Author Name Unknown Organization [facility] Address [address] [place] [address] Phone [phone] Care Team Providers Care Production Assembler Name Role Phone Tameka Hooper MD Primary Care Prov ider Encounter Details Date Type Department Care Team (Late st Contact Info) Description 09/07/2023 Orders Only [facility] [address] [place] [address] Bouchra Slater PA-C [address] [place] [address] Allergies Active Allergy Reactions Criticality Noted Date [...] in the morning. 30 Tablet 09/07/2023 Active Cefuroxime Axetil 250 MG Oral [...] 9:40 AM EDT Office Visit Family Medicine [address] [place] [phone] Tameka Hooper MD [address] [place] [address] [place] [address] 10/23/2023 2:30 PM EDT Office Visit Rheumatology [address] [place] [phone] Jessica Stubbs CRNP [address] [place] [address] [place] [address] 10/31/2023 1:00 PM EDT Cardiac Studies Cardiac Studies, [facility] [address] [place] [address] 11/01/2023 9:30 AM EDT Procedure Only Endoscopy, [facility] [address] [place] [address] Gasper Kim, DO [address] [place], [place] [address] 11/01/2023 10:00 AM EDT Procedure Only Endoscopy, [facility] [address] [place], [place] [address] Gasper Kim, DO [address] [place], [place] [address] 11/14/2023 12:20 PM EDT Office Visit Gastroenterology, [facility] [address] [place], [place] [address] Gasper Kim, DO [address] [place], [place] [address] 11/23/2023 3:00 PM EDT Office Visit Family Medicine [address] [place] [phone] Betsey Cramer [address] [place] [address] 03/26/2024 1:30 PM EDT Office Visit Nephrology [address] [place] [address] ZeAyana ladd PA-C [address] [place] [address] 05/01/2024 3:00 PM EDT Office Visit Dermatology [address] [place] [address] Anya Pratt PA-C [address] [place] [address] [place] [address] Health Maintenance Due Date Last Done Comments DISCUSS TOBACCO CESSATION (REFER TO SMARTSET #9953) 1940 COVID-19 Vaccine ( season) 2023 06/01/2021, 10/20/2020, 09/15/2020 Influenza Vaccine (FLU shot) (#1) 2023 Albumin/Creatinine Ratio 08/15/2023 08/15/2022, 01/31 CKD PHOS USE SMARTSET 80569 12/28/202312/02, 04/26/2022, 11/23/2021, Additional history exists GFR 03/03/2024 09/01/2023, 08/03, 02/14/2023, Additional history exists DXA Scan 08/01/2024 08/01/2022, 07/05, 07/07/2020, Additional history exists Depression Screening 08/21/2024 08/21/2023 O2 ASSESSMENT COMPLETED IN PAST YEAR FOR COPD 08/24/2024 08/24/2023 CKD HGB USE SMARTSET 61692 08/31/202408/31, 09/01/2023, 08/16/2023, Additional history exists COLONOSCOPY-EVERY 5 YRS AGES 18-100 07/31/2028 07/31/2023, 02/23/2022, 02/23/2022, Additional history exists DTaP,Tdap,and Td Vaccines (2 - Td or Tdap) 08/07/2030 08/07/2020 (Not indicated), 09/01/1998 Pneumococcal Vaccine: 65+ Years Completed 05/16/2016, 12/01/2014, 12/01/2013, Additional history exists VITAMIN D LEVEL ONCE IN A LIFETIME-USE SMARTSET# 53679 Completed 12/27/2022, 08/12/2022, 03/15/2022, Additional history exists [...] patient or by statute hierarchy) Care Teams Production Assembler Relationship Specialty Start Date End Date Tameka Hooper MD [address] [place] [address] [place] [address] PCP - General Family Medicine 05/29/19 documented as of this encounter
--- OUTSIDE RECORDS SUMMARY | 2023-10-13 18:21 | External Medical Summary | Summary of Care ---
Author Name Unknown Organization [facility] Address [address] [place] [address] Phone [phone] Care Team Providers Care Vibration Engineer Name Role Phone Tameka Hooper MD Primary Care Prov ider Reason for Visit * Reason Onset Date Comments Correction Visit - Discharge 09/07/2023 Encounter Details Date Type Department Care Team (Latest Contact Info) Description 09/07/2023 6:30 AM EST Correction Visit [facility] [address] [place] [address] Katia Slater PA-C [address], [place] [id number] Acute on chronic respiratory failure with hypoxia (HCC)*; COPD exacerbation (HCC); Influenza A; Peristomal hernia; Paroxysmal atrial fibrillation (HCC); Hypertensive kidney disease with stage 3b chronic kidney disease (HCC); Senile osteoporosis; Bilateral pleural effusion; Gastrointestinal hemorrhage associated with gastric ulcer; Acute cystitis without hematuria Allergies Active Allergy Reactions Criticality Noted Date [...] OF BREATH OR WHEEZING. 18 g 5 09/01/2023 4 Discontinu ed(Refill) Rivaroxaban 15 MG Oral Tablet (Xarelto)Indicati ons:Chronic atrial fibrillation (HCC) Take 1 Tablet by mouth in the morning. 90 Tablet 3 09/01/2023 4 Discontinu ed(Refill) Lisinopril 10 MG Oral Tablet (Prinivil)Indicat ions:Hypertensive kidney disease with stage 3b chronic kidney disease (HCC) Take 1 Tablet by mouth in the morning. 90 Tablet 3 09/01/2023 4 Discontinu ed(Refill) Escitalopram Oxalate 10 MG Oral Tablet (Lexapro)Indicati ons:Major depressive disorder, single episode, unspecified Take 1 Tablet by mouth in the morning. 90 Tablet 1 09/01/2023 4 Discontinu ed(Refill) Solifenacin Succinate 5 MG Oral Tablet (VESIcare)Indicat ions:Urge incontinence,Urin tangela frequency,Urinary urgency,Mixed incontinence Take 1 Tablet by mouth in the morning. 90 Tablet 3 09/01/2023 4 Discontinu ed(Refill) Anoro Ellipta 62.5-25 MCG/ACT Inhalation Aerosol Powder Breath ActivatedIndicati ons:COPD, moderate (HCC) Inhale 1 Puff by mouth in the morning. 1 puff daily. 60 Blister Dosing Unit 3 09/01/2023 4 Discontinu ed(Refill) Budesonide 0.25 MG/2ML Inhalation Suspension (Pulmicort)Indica tions:COPD, moderate (HCC) INHALE CONTENTS OF ONE VIAL (2ML) TWICE DAILY 60 mL 4 09/01/2023 4 Discontinu ed(Refill) Calcium 1000 + D 1000-20 MG-MCG Oral Tablet (Calcium Carb-Cholecalcife rol) Take 1 Tablet by mouth daily. 90 Tablet 2 09/01/2023 4 Discontinu ed(Refill) Ferrous Sulfate 325 (65 Fe) MG Oral Tablet (Feosol) TAKE 1 TABLET BY MOUTH EVERY DAY WITH BREAKFAST 90 Tablet 1 09/01/2023 4 Discontinu ed(Refill) Fish Oil 500 MG Oral Capsule Take 1 Capsule by mouth in the morning. Take by mouth.. 90 Capsule 3 09/01/2023 4 Discontinu ed(Refill) Furosemide 20 MG Oral Tablet (Lasix)Indication s:Hypertensive kidney disease with stage 3b chronic kidney disease (HCC) Take 1 Tablet by mouth in the morning. for fluid accumulation or weight gain. 90 Tablet 3 09/01/2023 4 Discontinu ed(Refill) guaiFENesin ER 600 MG Oral Tablet Extended Release 12 Hour (Humibid LA) Take 1 Tablet by mouth in the morning and 1 Tablet before bedtime. 60 Tablet 3 09/01/2023 4 Discontinu ed(Refill) Ipratropium-Albut donna 0.5-2.5 (3) MG/3ML Inhalation Solution (Duoneb)Indicatio ns:COPD, moderate (HCC) Inhale 3 mL via nebulizer every 4 hours as needed for Wheezing. 3ml vial in nebuilzer every four hours as needed for wheezing 3 mL 4 09/01/2023 4 Discontinu ed(Refill) Mesalamine 1.2 GM Oral Tablet Delayed Release (Lialda)Indicatio ns:IBD (inflammatory bowel disease) Take 3 Tablets by mouth in the morning. 270 Tablet 3 09/01/2023 4 Discontinu ed(Refill) Pantoprazole Sodium 40 MG Oral Tablet Delayed Release (Protonix)Indicat ions:IBD (inflammatory bowel disease) Take 1 Tablet by mouth in the morning. 90 Tablet 3 09/01/2023 4 Discontinu ed(Refill) PreserVision AREDS 2 Oral Tablet Chewable Take 1 Tablet by mouth daily. 90 Tablet 3 09/01/2023 4 Discontinu ed(Refill) Restasis 0.05 % Ophthalmic Emulsion INSTILL 1 DROP INTO EACH EYE TWICE DAILY 1.5 mL 5 09/01/2023 4 Discontinu ed(Refill) Systane 0.4-0.3 % Ophthalmic Solution (Artificial Tears) as needed 10 mL 5 09/01/2023 4 Discontinu ed(Refill) Vitamin C 500 MG Oral Tablet Chewable Take 1 Tablet by mouth in the morning. 30 Tablet 5 09/01/2023 4 Discontinu ed(Refill) Verapamil HCl ER 120 MG Oral Tablet Extended Release (Isoptin SR) Take 1 Tablet by mouth in the morning. 0 09/06/2023 4 Discontinu ed(Refill) documented as of this encounter (statuses as [...] as of this encounter Progress Notes * Katia Slater PA-C - 09/07/2023 10:13 AM EST DISCHARGE NOTE TRANSITION EVENT: Type: Discharge to home Date: September 07 Code Status: Full Code Name: Eliazar Beaulieu Date of : 1940 This note pertains to care provided at [facility]. Please see facility medical record for original note. This note is not to be edited [facility]ended [facility]. Editing or addending needs to occur in the facilities medical record. Discharge Medications: Current Outpatient Medications Medication Sig Dispense Refill [...] . Use as directed. 1 Each 1 Albuterol Sulfate HFA 108 (90 Base) MCG/ACT Inhalation Aerosol Solution INHALE 2 PUFFS BY MOUTH NEEDED FOR COUGH, SHORTNESS OF BREATH OR WHEEZING. 18 g 5 Rivaroxaban 15 MG Oral Tablet (Xarelto) Take 1 Tablet by mouth in the morning. 90 Tablet 3 Triamcinolone Acetonide 0.5 % External Cream (Aristocort) APPLY TO AFFECTED AREA TWICE A DAY 60 g 5 Lisinopril 10 MG Oral Tablet (Prinivil) Take 1 Tablet by mouth in the morning. 90 Tablet 3 Escitalopram Oxalate 10 MG Oral Tablet (Lexapro) Take 1 Tablet by mouth in the morning. 90 Tablet 1 Solifenacin Succinate 5 MG Oral Tablet (VESIcare) Take 1 Tablet by mouth in the morning. 90 Tablet 3 Anoro Ellipta 62.5-25 MCG/ACT Inhalation Aerosol Powder Breath Activated Inhale 1 Puff by mouth in the morning. 1 puff daily. 60 Blister Dosing Unit 3 Budesonide 0.25 MG/2ML Inhalation Suspension (Pulmicort) INHALE CONTENTS OF ONE VIAL (2ML) TWICE DAILY 60 mL 4 Calcium 1000 + D 1000-20 MG-MCG Oral Tablet (Calcium Carb-Cholecalciferol) Take 1 Tablet by mouth daily. 90 Tablet 2 Ferrous Sulfate 325 (65 Fe) MG Oral Tablet (Feosol) TAKE 1 TABLET BY MOUTH EVERY DAY WITH [id number] Tablet 1 Fish Oil 500 MG Oral [...] as needed for wheezing 3 mL 4 Mesalamine 1.2 GM Oral Tablet Delayed Release (Lialda) Take 3 Tablets by mouth in the morning. 270 Tablet 3 Pantoprazole Sodium 40 MG Oral Tablet Delayed Release (Protonix) Take 1 Tablet by mouth in the morning. 90 Tablet 3 PreserVision AREDS 2 Oral Tablet Chewable Take 1 Tablet by mouth daily. 90 Tablet 3 Restasis 0.05 % Ophthalmic Emulsion INSTILL 1 DROP INTO EACH EYE TWICE DAILY 1.5 mL 5 Systane 0.4-0.3 % Ophthalmic Solution (Artificial Tears) as needed 10 mL 5 Vitamin C 500 MG Oral Tablet Chewable Take 1 Tablet by mouth in the morning. 30 Tablet 5 Acetaminophen 325 MG Oral Tablet (Tylenol) Take 1 Tablet by mouth every 6 hours as needed for Pain,Mild, Fever >38C(100.5F), Pain, Moderate or Pain, Severe. Pt takes 1/2 tab daily 100 Tablet 5 Verapamil HCl ER 120 MG Oral Tablet Extended Release (Isoptin SR) Take 1 Tablet by mouth in the morning. No current facility-administered medications for this visit. S: Eliazar Beaulieu is being discharged from [facility] to home. Note from 09/06/23: . Eliazar Beaulieu had been admitted to [facility] from [facility] for PT and OT. Recently admitted to [facility] on 08/28/23 because of acute on chronic respiratory failure due to influenza A and COPD and was transferred here and admitted on 08/31/2023. Patient of Dr. Mao known to facility from recent admission for PT/OT following hospitalization with upper GI bleed, 2-3 degree heart block with PMH of COPD on chronic oxygen, FRANCIS noncompliant with CPAP, recent cessation of smoking, PAF on Xarelto, PVD, hypertension with stage 3b CKD, dyslipidemia, parastomal hernia, IBD, s/p colostomy who presented to EDwith progressive shortness of breath and lightheadedness. Patient did admit to running out of lasixand furosemide about 4 days prior to admission and still not using CPAP. She had returned home on 08/20/23 from [facility] for her rehab stay. In the ED, she was positive for H1 influenza A. CXR showed small bilateral pleural effusions and interstitial lung disease. CT of the abdomen and pelvis showed large left lower quadrant parastomal hernia measuring approximately 10.2 x 14 cm and contains multiple large and small bowel loops and no bowel obstruction. There was also bilateral nonobstructing renal calculi measuring up to 12 mm in theleft lower pole. CBC showed H&H of 8.7/29.4 and was 8.2/27.1 on discharge. Creatinine was 1.37 on admission and stayed in that range. A1C was 5.2. Patient was admitted and treated with Tamiflu, steroids, and nebulizers. She was discharged to complete renally dosed Tamiflu and prednisone, both for 2 more days. Patient was noted to have large parastomal hernia and reported intermittent left sided abdominal pain. She was seen by general surgery, who recommended she follow-up as an outpatient with colorectal surgery or hernia specialist as outpatient after recovery. Patient's furosemide and Xarelto were restarted on admission (had been out of them for about 4 daysprior to admission). Patient seen today in her room. She states she is not feeling well this morning and then goes to the bathroom and vomits nonbilious vomitus. Patient states she did eat breakfast this morning. She denies any abdominal pain. She was noted to have a temperature of 99.8 last evening per staff. Of note,there have been staff and other residents in the proximity with a short-lived vomiting illness. Myrtle ent reports feeling better after vomiting. Breathing is perhaps slightly worse than it was on discharge. She has a chronic cough. Has not been requiring more oxygen. Patient is admitted for PT/OT. She lives alone and plans to return to her home. CBC Results: Results for orders placed or performed in visit on 09/01/23 CBC Result Value Ref Range WBC 11.20 (H) 4.00 - 10.80 K/uL RBC 3.12 3.85 - 5.15 M/uL HGB 8.9 (L) 12.0 - 15.3 g/dL HCT 30.5 (L) 36.0 - 45.2 % MCV 97.8 81.5 - 97.5 fL MCH 28.5 27.0 - 34.0 pg MCHC 29.2 32.0 - 36.0 g/dL RDW 17.3 11.5 - 15.5 % PLT 293 140 - 400 K/uL MPV 9.7 6.6 - 11.1 fL Hemoglobin Results: Lab Results Component Value Date/Time HGB - [facility] 8.9 (L) 09/01/2023 05:48 AM HGB - [facility] 8.1 (L) 08/16/2023 05:40 AM HGB - [facility] 7.8 (L) 08/14/2023 05:55 AM HGB - [facility] 14.7 02/04/2020 03:11 PM HGB - [facility] 13.4 03/26/2019 10:51 AM Basic Panel Results: Results for orders placed or performed in visit on 09/01/23 BASIC METABOLIC PANEL Result Value Ref Range BUN 21 (H) 6 - 20 mg/dL Creatinine 1.5 (H) 0.5 - 1.0 mg/dL Estimated Glomerular Filtration Rate 35 (L) >=60 mL/min Sodium 144 135 - 146 mmol/L Potassium 4.3 3.5 - 5.1 mmol/L Chloride 106 98 - 107 mmol/L CO2 27 22 - 32 mmol/L Anion Gap 11 7 - 15 mmol/L Glucose 94 70 - 120 mg/dL Calcium 8.5 8.4 - 10.2 mg/dL Creatinine Results: Lab Results Component Value Date/Time CREATININE - [facility] 1.5 (H) 09/01/2023 05:48 AM CREATININE - [facility] 1.4 (H) 08/14/2023 05:55 AM CREATININE - [facility] 1.6 (H) 02/14/2023 12:49 PM CREATININE - [facility] 1.3 (H) 07/27/2020 [...] Results Component Value Date/Time POTASSIUM - [facility] 4.3 09/01/2023 05:48 AM POTASSIUM - [facility] 3.9 08/14/2023 05:55 AM POTASSIUM - [facility] 4.9 02/14/2023 12:49 PM POTASSIUM - [facility] 4.2 07/27/2020 12:40 PM POTASSIUM - [facility] 3.9 07/10/2020 12:02 PM POTASSIUM - [facility] 4.4 04/20/2020 02:31 PM POTASSIUM-[facility] 4.5 12/10/2020 12:00 AM POTASSIUM-[facility] 4.3 12/08/2020 12:00 AM Sodium Results: Lab Results Component Value Date/Time SODIUM - [facility] 144 09/01/2023 05:48 AM SODIUM - [facility] 141 08/14/2023 05:55 AM SODIUM - [facility] 140 02/14/2023 12:49 PM SODIUM - [facility] 144 07/27/2020 12:40 PM SODIUM - [facility] 143 07/10/2020 12:02 PM SODIUM - [facility] 144 04/20/2020 02:31 PM Has history of : Past Medical History: Diagnosis Date Chronic atrial fibrillation (HCC) 05/29/2019 Chronic bilateral low back pain without sciatica 02/04/2020 Colostomy status ([facility]) 05/29/2019 COPD, moderate ([facility]) 12/15/2011 Diverticulitis of colon Essential (primary) hypertension 07/10/2019 Fracture of vertebra due to osteoporosis with routine healing 02/07/2020 Generalized osteoarthritis Glaucoma 12/15/2011 H/O multiple pulmonary nodules [facility] next yearly CT is due in May 2022 Macular degeneration 05/29/2019 Mixed hyperlipidemia 05/29/2019 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[facility]) 12/15/2011 S/P bilateral cataract extraction 05/29/2019 Upper GI bleed 07/25/2023 gastric ulcer, hgb 6.9 Patient Active Problem List Diagnosis Code 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[facility]) G47.33, J44.9 Macular degeneration H35.30 S/P bilateral cataract extraction Z98.41, Z98.42 Colostomy status ([facility]) Z93.3 Paroxysmal atrial fibrillation ([facility]) I48.0 H/O resection of large bowel Z90.49 Diverticulosis of large intestine without hemorrhage K57.30 Mixed hyperlipidemia E78.2 Tobacco use disorder F17.200 Chronic bilateral low back pain without sciatica M54.50, G89.29 DDD (degenerative disc disease), lumbar M51.36 Stage 3b chronic kidney disease N18.32 Senile osteoporosis M81.0 Major depressive disorder with single episode, in full remission ([facility]) F32.5 Hypoparathyroidism ([facility]) E20.9 Chronic hypoxemic respiratory failure ([facility]) J96.11 History of healed osteoporosis fracture Z87.310 Essential (primary) hypertension I10 COPD, group B, by GOLD 2017 classification ([facility]) J44.9 Hypertensive kidney disease with stage 3b chronic kidney disease ([facility]) I12.9, N18.32 Other specified peripheral vascular diseases ([facility]) I73.89 Hx of actinic keratosis Z87.2 IBD (inflammatory bowel disease) K52.9 Gastrointestinal hemorrhage associated with gastric ulcer K25.4 Schatzki's ring of distal esophagus K22.2 Hiatal hernia K44.9 Full code status Z78.9 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 ([facility]) K51.40 Nephrolithiasis N20.0 Peristomal hernia K46.9 Bilateral pleural effusion J90 Interstitial lung disease (HCC) J84.9 Past Surgical History: Procedure Laterality Date COLONOSCOPY, DIAGNOSTIC (RECTUM) 08/01/2019 adenomatous polyp, repeat 5 yrs/COLONOSCOPY FLEXIBLE PROXIMAL DIAGNOSTIC performed by Gasper Kim DO at ENDOSCOPY [facility] COLONOSCOPY, DIAGNOSTIC (RECTUM) N/A 02/23/2022 [facility], Colonoscopy , Nodular mucosa in ascending & transverse / biopsies biopsies from the colonwere most consistent with inflammatory bowel disease / LENS EXTRACTION, PHACOFRAGMENTATION Bilateral 10/2016 Dr. Diego YAO/CUT OVIDUCT(S) 1974 PARTIAL REMOVAL OF COLON 12/06/2018 Diverticulitis REMOVE TONSILS & ADENOIDS, UNDER 14 age [age] UPPER GI ENDOSCOPY 07/26/2023 gastic ulcer/nonobstructing Schatzki ring/small HH/repeat 3 months/EGD/[facility] Family History Problem Relation Age of Onset [...] reaction(s): Other Pletal [Cilostazol] Rash and Unknown Review of Systems: Constitutional ROS: No change in weight, No change in weakness, No change in fatigue and No fevers,sweats, or chills Eye ROS: No recent significant change in vision, No eye pain, redness, discharge and No diplopia Ear ROS: No ear pain, No drainage, No tinnitus or vertigo and No recent change in hearing Nose ROS: No nasal stuffiness and No significant epistaxis Mouth/Throat ROS: No thrush or No sore throat Neck ROS: No lumps or masses, No swollen glands, No recent swelling in thyroid area and No significant pain in neck Pulmonary ROS: see HPI Cardiovascular ROS: No chest pain, No shortness of breath, No edema, No palpitations and No syncope Gastrointestinal ROS: see HPI Musculoskeletal/Extremities ROS: DDD Skin/Integumentary ROS: No rash and No itching Neurologic ROS: No headaches and No seizures Psychiatric ROS: +depression, No anxiety and No psychosis Sleep: FRANCIS SN[facility] course of stay: Yes - PT DEVELOPED AN EPISODE OF NAUSEA AND VOMITING ON 09/06/23. NO DIARRHEA, CHILLS, FEVER. RELIEF WITH ZOFRAN PRN. CLEAR LIQUID DIET TIMES ONE DAY. FEELS MUCH BETTER THIS MORNINGON REASSESSMENT . URINE DIP SHOWED +++ ESTERASE AND NITRITES. PRELIMINARY C&S SHOWED >100,000 COLONIES OF GRAM NEGATIVE BACILLI. BEGUN ON CEFTIN 250MG BID TIMES 7 DAYS Adequate nutrition/fluids: Yes Bowel/Bladder dysfunction: No Assistive Devices: with walker ADL: independent O: PHYSICALEXAM: I reviewed the most recent facilities vitals. General: alert, no distress, well nourished and well developed Head: Normocephalic, No masses, lesions, tenderness or abnormalities Eye Exam: Conjunctiva are pink and non-injected, sclera clear Ears: External ears normal Nose: no mucosal erythema, no mucosal edema, no purulent discharge Oropharynx: no exudate, no erythema, lips, buccal mucosa, and tongue normal and mucous membranes are moist Neck: supple, no adenopathy, non-tender, neck veins flat, trachea midline Lymph: no palpable lymphadenopathy Heart: regular rate & rhythm, no murmurs and no gallops Lungs: normal respiratory rate and rhythm, no chest wall tenderness, lungs distant BS, coarse sounds with rhonchi noted. Abdomen: abdomen soft, obese, non-tender, normal bowel sounds and no masses or organomegaly Extremities: no edema, no clubbing, no cyanosis Neuro Exam: alert & oriented x 3 with fluent speech, no focal motor/sensory deficits Skin: skin color, texture, turgor are normal, no rashes or significant lesions Musculoskeletal: moves all extremities with good strength A: Acute on chronic respiratory failure with hypoxia (HCC) (Primary) Stable clinically Continue O2 as directed COPD exacerbation (HCC) Stable currently Continue anoro ellipta 62.5/25mcg AM and Budesonide 0.25mg BID, Proventil and Duonebs prn as directed Influenza A Completed Tamiflu course Peristomal hernia Consult colorectal surgery or hernia specialist when recovered Paroxysmal atrial fibrillation (HCC) Stable rate Continue Xarelto 15mg daily Hypertensive kidney disease with stage 3b chronic kidney disease (HCC) Stable BP and CKD Continue Verapamil 120mg daily Senile osteoporosis Continue Calcium with D daily Bilateral pleural effusion Gastrointestinal hemorrhage associated with gastric ulcer Stable Continue Pantoprazole 40mg daily Acute cystitis without hematuria Will complete Ceftin 250mg BID course P: 1. Discharge to home 2. Home Health was consulted for nursing, PT, and OT. [facility] 3. Copy of chart sent to Dr Tonja Cai 4. Patient to follow up with Dr Tonja Cai within 7 days. 5. Seo Associate: Karen Olivier, STANISLAW 6. I spent 40 minutes on discharge. 7. [facility] Home Treatment Given: as above Electronically signed by: Katia Slater PA-C ADDENDUM: DISCHARGE HELD DUE TO ABNORMAL LABS WITH ELEVATION OF CREATININE TO 2.1 WITH SYMPTOMS OF UTI. documented in this encounter Miscellaneous Notes * Addendum Note - Katia Slater PA-C - 09/11/2023 9:48 AM EDTAddended by: KATIA SLATER on: 09/11/2023 09:48 AM Modules accepted: Level of Service documented in this encounter Plan of Treatment Upcoming Encounters Date Type Department Care Team (Late st Contact Info) Description 09/19/2023 9:40 AM EDT Office Visit Family Medicine [address] [place] [phone] Tameka Hooper MD [address] [place] [address] [place] [address] 10/23/2023 2:30 PM EDT Office Visit Rheumatology [address] [place] [phone] Jessica Stubbs CRNP [address] [place] [address] [place] [address] 10/31/2023 1:00 PM EDT Cardiac Studies Cardiac Studies, [facility] [address] [place] [address] 11/01/2023 9:30 AM EDT Procedure Only Endoscopy, [facility] [address] [place] [address] Gasper Kim, DO [address] [place] [address] 11/01/2023 10:00 AM EDT Procedure Only Endoscopy, [facility] [address] [place] [id number] Gasper Kim, DO [address] [place] [address] 11/23/2023 3:00 PM EDT Office Visit Family Medicine [address] [place] [phone] Betsey Cramer CRNP [address] [place] [address] [place] [address] 03/26/2024 1:30 PM EDT Office Visit Nephrology [address] [place] [address] Ayana Anna PA-C [address] [place] [address] 05/01/2024 3:00 PM EDT Office Visit Dermatology [address] [place] [address] Anya Pratt PA-C [address] [place] [address] [place] [address] Health Maintenance Due Date Last Done Comments DISCUSS TOBACCO CESSATION (REFER TO SMARTSET #6150) 1940 COVID-19 Vaccine ( season) 2023 06/01/2021, 10/20/2020, 09/15/2020 Influenza Vaccine (FLU shot) (#1) 2023 Albumin/Creatinine Ratio 08/15/2023 08/15/2022, 01/31 CKD PHOS USE SMARTSET 65916 12/28/202312/02, 04/26/2022, 11/23/2021, Additional history exists GFR 03/10/2024 09/08/2023, 07/2023, 08/14/2023, Additional history exists DXA Scan 08/01/2024 08/01/2022, 07/05, 07/07/2020, Additional history exists Depression Screening 08/21/2024 08/21/2023 O2 ASSESSMENT COMPLETED IN PAST YEAR FOR COPD 08/24/2024 08/24/2023 CKD HGB USE SMARTSET 55594 09/10/202409/10, 09/08/2023, 09/08/2023, Additional history exists COLONOSCOPY-EVERY 5 YRS AGES 18-100 07/31/2028 07/31/2023, 02/23/2022, 02/23/2022, Additional history exists DTaP,Tdap,and Td Vaccines (2 - Td or Tdap) 08/07/2030 08/07/2020 (Not indicated), 09/01/1998 Pneumococcal Vaccine: 65+ Years Completed 05/16/2016, 12/01/2014, 12/01/2013, Additional history exists VITAMIN D LEVEL ONCE IN A LIFETIME-USE SMARTSET# [id number] Completed 12/27/2022, 08/12/2022, 03/15/2022, Additional history exists [...] gangrene Paroxysmal atrial fibrillation (HCC) Atrial fibrillation Hypertensive kidney disease with stage 3b chronic kidney disease (HCC) Senile osteoporosis Bilateral pleural effusion Unspecified pleural effusion Gastrointestinal hemorrhage associated with gastric ulcer Acute cystitis without hematuria Acute cystitis documented in this encounter Advance Directives Healthcare Agents on File Name Relationship Healthcare Agent Relationshi p Communication Juan Daniel Beaulieu Adult Child Health Care Repr esentative (appointed verbally by patient or by statute hierarchy) Care Teams Vibration Engineer Relationship Specialty Start Date End Date Tameka Hooper MD [address] [place] [address] [place] [address] PCP - General Family Medicine 05/29/19 documented as of this encounter
--- OUTSIDE RECORDS SUMMARY | 2023-10-13 18:21 | External Medical Summary | Summary of Care ---
Author Name Unknown Organization [facility] Address [address] [place] [address] Phone [phone] Care Team Providers Care Ppap Coordinator Name Role Phone Tameka Hooper MD Primary Care Prov ider Encounter Details Date Type Department Care Team (Late st Contact Info) Description 09/11/2023 Orders Only Lab Mobile Phlebotomy [facility] [address] [place] [address] Ephraim Burgess MD [address] [place] [address] [place] [address] Abnormal laboratory test result*; Anemia Allergies Active Allergy Reactions Criticality Noted [...] Care Team (Late st Contact Info) Description 09/11/2023 8:00 AM EDT Laboratory Lab Mobile Phlebotomy [address] [place] [address] Arrived 09/19/2023 9:40 AM EDT Office Visit Family Medicine [address] [place] [address] Tameka Hooper MD [address] [place] [address] [place] [address] 10/23/2023 2:30 PM EDT Office Visit Rheumatology [address] [place] [phone] Jessica Stubbs CRNP [address] [facility] [place] [address] 10/31/2023 1:00 PM EDT [facility] [address] [place], [place] [address] 11/01/2023 9:30 AM EDT Procedure Only Endoscopy, [facility] [address] [place], [place] [address] Gasper Kim, DO [address] [place], [place] [address] 11/01/2023 10:00 AM EDT Procedure Only Endoscopy, [facility] [address] [place], [place] [address] Gasper Kim, DO [address] [place], [place] [address] 11/23/2023 3:00 PM EDT Office Visit Family Medicine [address] [place] [phone] Betsey Cramer CRNP [address] [place] [address] [place] [address] 03/26/2024 1:30 PM EDT Office Visit Nephrology [address] [place] [address] ZemaAyana hurtado PA-C [address] [place] [address] 05/01/2024 3:00 PM EDT Office Visit Dermatology [address] [place] [address] Anya Pratt PA-C [address] [place] [address] [place] [address] Scheduled Orders Name Type Priority Associated Diagnoses Orde r Schedule CBC Lab Routine Abnormal laboratory test result Anemia Expected: 09/11/2023, Expires: 09/10/2024 BASIC METABOLIC PANEL Lab Routine Abnormal laboratory test result Anemia Expected: 09/11/2023, Expires: 09/10/2024 Health Maintenance Due Date Last Done Comments DISCUSS TOBACCO CESSATION (REFER TO SMARTSET #7788) 1942 COVID-19 Vaccine ( season) 2023 06/01/2021, 10/20/2020, 09/15/2020 Influenza Vaccine (FLU shot) (#1) 2023 Albumin/Creatinine Ratio 08/15/2023 08/15/2022, 01/31 CKD PHOS USE SMARTSET 32640 12/28/202312/02, 04/26/2022, 11/23/2021, Additional history exists GFR 03/10/2024 09/08/2023, 030 07/2023, 08/14/2023, Additional history exists DXA Scan 08/01/2024 08/01/2022, 07/05, 07/07/2020, Additional history exists Depression Screening 08/21/2024 08/21/2023 O2 ASSESSMENT COMPLETED IN PAST YEAR FOR COPD 08/24/2024 08/24/2023 CKD HGB USE SMARTSET 41101 09/07/202409/07, 09/08/2023, 09/01/2023, Additional history exists COLONOSCOPY-EVERY 5 YRS AGES 18-100 07/31/2028 07/31/2023, 02/23/2022, 02/23/2022, Additional history exists DTaP,Tdap,and Td Vaccines (2 - Td or Tdap) 08/07/2030 08/07/2020 (Not indicated), 09/01/1998 Pneumococcal Vaccine: 65+ Years Completed 05/16/2016, 12/01/2014, 12/01/2013, Additional history exists VITAMIN D LEVEL ONCE IN A LIFETIME-USE SMARTSET# 32885 Completed 12/27/2022, 08/12/2022, 03/15/2022, Additional history exists [...] as of this encounter Visit Diagnoses Diagnosis Abnormal laboratory test result- Primary Other abnormal clinical finding Anemia Anemia, unspecified documented in this encounter Advance Directives Healthcare Agents on File Name Relationship Healthcare Agent Relationshi p Communication Juan Daniel Beaulieu Adult Child Health Care Repr esentative (appointed verbally by patient or by statute hierarchy) Care Teams Ppap Coordinator Relationship Specialty Start Date End Date Tameka Hooper MD [address] [place] [address] [place] [address] PCP - General Family Medicine 05/29/19 documented as of this encounter
--- OUTSIDE RECORDS SUMMARY | 2023-10-13 18:21 | External Medical Summary ---
Author Name Unknown Address Unknown Organization [facility] [address] [place] [address] Laboratory Report Ordering Provider Test Date Status LAVINIA ESCOBAR 09/08/2023 06:01:00 Final Observation Date Value Abnormality Reference (Units ) Status BUN 09/08/2023 06:01:00 26 Above high normal 6-20 (mg/dL) Final Creatinine 09/08/2023 06:01:00 2.1 Above high normal 0.5-1.0 (mg/dL) Final Glomerular filtration rate/1.73 sq M.predicted [Volume Rate/Area] in Serum, Plasma or Blood by Creatinine-based formula (CKD-EPI) 09/08/2023 06:01:00 24 Below low normal >=60 (mL/min) Final eGFR is calculated based on the CKD-EPI 2020 equation SODIUM 09/08/2023 06:01:00 140 135-146 (m mol/L) Final Potassium 09/08/2023 06:01:00 4.0 3.5-5.1 (m mol/L) Final Cl 09/08/2023 06:01:00 105 98-107 (mm ol/L) Final CO2 09/08/2023 06:01:00 27 22-32 (mmo l/L) Final Anion gap 09/08/2023 06:01:00 8 7-15 (mmol /L) Final Glucose 09/08/2023 06:01:00 107 70-120 (mg /dL) Final Albumin 09/08/2023 06:01:00 2.8 Below low normal 3.8 -5.0 (g/dL) Final AST (Aspartate aminotransferase) 09/08/2023 06:01:00 13 10-35 (U/L) Fin al Alk Phos 09/08/2023 06:01:00 63 35-130 (U/ L) Final Bilirubin, Total 09/08/2023 06:01:00 0.2 <=1 .2 (mg/dL) Final Calcium 09/08/2023 06:01:00 9.0 8.4-10.2 ( mg/dL) Final Protein 09/08/2023 06:01:00 5.6 Below low normal 6.0 -8.3 (g/dL) Final ALT (Alanine aminotransferase) 09/08/2023 06:01:00 9 Below low normal 10-35 (U/L) Final Performing Location [facility] [address] [facility] [address]
--- OUTSIDE RECORDS SUMMARY | 2023-10-13 18:21 | External Medical Summary ---
Author Name Unknown Address Unknown Organization K0G:[facility] [place] [address] [place] [address] Laboratory Report Ordering Provider Test Date Status LAVINIA ESCOBAR 09/11/2023 06:13:00 Final Observation Date Value Abnormality Reference (Units ) Status WBC, Total 09/11/2023 06:13:00 9.75 4.00-10.8 0 (K/uL) Final RBC 09/11/2023 06:13:00 2.89 3.85-5.15 (M/uL) Final Hemoglobin 09/11/2023 06:13:00 8.3 Below low normal 12 .0-15.3 (g/dL) Final HCT 09/11/2023 06:13:00 27.5 Below low normal 36. 0-45.2 (%) Final MCV 09/11/2023 06:13:00 95.2 81.5-97.5 (fL) Final MCH 09/11/2023 06:13:00 28.7 27.0-34.0 (pg) Final MCHC 09/11/2023 06:13:00 30.2 32.0-36.0 (g/dL) Final RDW 09/11/2023 06:13:00 15.8 11.5-15.5 (%) Final Platelets 09/11/2023 06:13:00 297 140-400 (K /uL) Final MPV 09/11/2023 06:13:00 9.4 6.6-11.1 ( fL) Final Performing Location [facility] [place] [address]
--- OUTSIDE RECORDS SUMMARY | 2023-10-13 18:22 | External Medical Summary | Summary of Care ---
Author Name Unknown Organization [facility] Address [address] [place] [address] Phone [phone] Care Team Providers Care Scutcher Tender Name Role Phone Tameka Hooper MD Primary Care Prov ider Reason for Visit * Reason Onset Date Comments Appointment 09/07/2023 Emergency Department Follow-Up 09/07/2023 Encounter Details Date Type Department Care Team (Late st Contact Info) Description 09/07/2023 Telephone Family [address] [phone] Tameka Hooper MD [address] [place] [phone] Appointment; Emergency Department Follow-Up Allergies Active Allergy Reactions Criticality Noted Date [...] by mouth daily. 90 Tablet 3 09/07/2023 Active Restasis 0.05 % Ophthalmic Emulsion [...] the morning. 30 Tablet 5 09/07/2023 Active documented as of this encounter [...] Telephone Encounter - Puja Starr LPN - 09/07/2023 11:17 AM EST Scheduled. Bindu aware. * Telephone Encounter - Eun Mckeon OSA - 09/07/2023 9:59 AM EST [facility] is calling to set up a discharge appointment and there are no available appointments. Pt is being discharged on 09/08/23 and They are requesting a callback to schedule. documented in this encounter Plan of Treatment Upcoming Encounters Date Type Department Care Team (Late st Contact Info) Description 09/19/2023 9:40 AM EDT Office Visit Family [address] [phone] Tameka Hooper MD [address] [place] [address] [place] [address] 10/23/2023 2:30 PM EDT Office Visit Rheumatology [address] [place] [phone] Jessica Stubbs CRNP [address] [place] [address] [place] [address] 10/31/2023 1:00 PM EDT Cardiac Studies Cardiac Studies, [facility] [address] [place] [address] 11/01/2023 9:30 AM EDT Procedure Only Endoscopy, [facility] [address] [place] [address] Gasper Kim, DO [address] [place] [address] 11/01/2023 10:00 AM EDT Procedure Only Endoscopy, [facility] [address] [place] [address] Gasper Kim, DO [address] [place] [address] 11/14/2023 12:20 PM EDT Office Visit Gastroenterology, [facility] [address] [place] [address] Gasper Kim, DO [address] [place] [address] 11/23/2023 3:00 PM EDT Office Visit Family Medicine [address] [place] [phone] Betsey Cramer CRNP [address] [place] [address] [place] [address] 03/26/2024 1:30 PM EDT Office Visit Nephrology [address] [place] [address] Ayana Anna PA-C [address] [place] [address] 05/01/2024 3:00 PM EDT Office Visit Dermatology [address] [place] [address] Anya Pratt PA-C [address] [place] [address] [place] [address] Health Maintenance Due Date Last Done Comments DISCUSS TOBACCO CESSATION (REFER TO SMARTSET #0400) 1942 COVID-19 Vaccine ( season) 2023 06/01/2021, 10/20/2020, 09/15/2020 Influenza Vaccine (FLU shot) (#1) 2023 Albumin/Creatinine Ratio 08/15/2023 08/15/2022, 01/31 CKD PHOS USE SMARTSET 15485 12/28/202312/02, 04/26/2022, 11/23/2021, Additional history exists GFR 03/03/2024 09/01/2023, 08/03, 02/14/2023, Additional history exists DXA Scan 08/01/2024 08/01/2022, 07/05, 07/07/2020, Additional history exists Depression Screening 08/21/2024 08/21/2023 O2 ASSESSMENT COMPLETED IN PAST YEAR FOR COPD 08/24/2024 08/24/2023 CKD HGB USE SMARTSET 79204 08/31/202408/31, 09/01/2023, 08/16/2023, Additional history exists COLONOSCOPY-EVERY 5 YRS AGES 18-100 07/31/2028 07/31/2023, 02/23/2022, 02/23/2022, Additional history exists DTaP,Tdap,and Td Vaccines (2 - Td or Tdap) 08/07/2030 08/07/2020 (Not indicated), 09/01/1998 Pneumococcal Vaccine: 65+ Years Completed 05/16/2016, 12/01/2014, 12/01/2013, Additional history exists VITAMIN D LEVEL ONCE IN A LIFETIME-USE SMARTSET# 75647 Completed 12/27/2022, 08/12/2022, 03/15/2022, Additional history exists [...] patient or by statute hierarchy) Care Teams Scutcher Tender Relationship Specialty Start Date End Date Tameka Hooper MD [address] [place] [address] [place] [address] PCP - General Family Medicine 05/29/19 documented as of this encounter
--- OUTSIDE RECORDS SUMMARY | 2023-10-13 18:22 | External Medical Summary | Summary of Care ---
Author Name Unknown Organization [facility] Address [address] [place] [address] Phone [phone] Care Team Providers Care Occasional Caregiver Name Role Phone Tameka Hooper MD Primary Care Prov ider Reason for Visit * Reason Onset Date Comments Care Home Visit - Discharge 09/07/2023 Encounter Details Date Type Department Care Team (Latest Contact Info) Description 09/07/2023 6:30 AM EST Care Home Visit [facility] [address] [place] [address] Bouchra Slater PA-C [address] [place], [place] [phone] Acute on chronic respiratory failure with hypoxia (HCC)*; COPD exacerbation (HCC); Influenza A; Peristomal hernia; Paroxysmal atrial fibrillation (HCC); Hypertensive kidney disease with stage 3b chronic kidney disease (HCC); Senile osteoporosis; Bilateral pleural effusion; Gastrointestinal hemorrhage associated with gastric ulcer Allergies Active Allergy Reactions Criticality Noted Date [...] 10/23/2023 2:30 PM EDT Office Visit Rheumatology [address] [place] [phone] Jessica Stubbs CRNP [address] [facility] [place] [address] 10/31/2023 1:00 PM EDT Cardiac Studies Cardiac Studies, [facility] [address] [place] [address] 11/01/2023 9:30 AM EDT Procedure Only Endoscopy, [facility] [address] [place] [address] Gasper Kim, DO [address] [place] [address] 11/01/2023 10:00 AM EDT Procedure Only Endoscopy, [facility] [address] [place] [address] Gasper Kim, DO [address] [place] [address] 11/14/2023 12:20 PM EDT Office Visit Gastroenterology, [facility] [address] [place] [address] Gasper Kim, DO [address] [place] [address] 11/23/2023 3:00 PM EDT Office Visit Family Medicine [address] [place] [phone] Betsey Cramer CRNP [address] [place] [address] [place] [address] 03/26/2024 1:30 PM EDT Office Visit Nephrology [address] [place] [address] Ayana Anna PA-C [address] [place] [address] 05/01/2024 3:00 PM EDT Office Visit Dermatology [address] [place] [address] Anya Pratt PA-C [address] [place] [address] [place] [address] Health Maintenance Due Date Last Done Comments DISCUSS TOBACCO CESSATION (REFER TO SMARTSET #3291) 1940 COVID-19 Vaccine ( season) 2023 06/01/2021, 10/20/2020, 09/15/2020 Influenza Vaccine (FLU shot) (#1) 2023 Albumin/Creatinine Ratio 08/15/2023 08/15/2022, 01/31 CKD PHOS USE SMARTSET 95357 12/28/202312/02, 04/26/2022, 11/23/2021, Additional history exists GFR 03/03/2024 09/01/2023, 08/03, 02/14/2023, Additional history exists DXA Scan 08/01/2024 08/01/2022, 07/05, 07/07/2020, Additional history exists Depression Screening 08/21/2024 08/21/2023 O2 ASSESSMENT COMPLETED IN PAST YEAR FOR COPD 08/24/2024 08/24/2023 CKD HGB USE SMARTSET 94315 08/31/202408/31, 09/01/2023, 08/16/2023, Additional history exists COLONOSCOPY-EVERY 5 YRS AGES 18-100 07/31/2028 07/31/2023, 02/23/2022, 02/23/2022, Additional history exists DTaP,Tdap,and Td Vaccines (2 - Td or Tdap) 08/07/2030 08/07/2020 (Not indicated), 09/01/1998 Pneumococcal Vaccine: 65+ Years Completed 05/16/2016, 12/01/2014, 12/01/2013, Additional history exists VITAMIN D LEVEL ONCE IN A LIFETIME-USE SMARTSET# 09333 Completed 12/27/2022, 08/12/2022, 03/15/2022, Additional history exists [...] effusion Gastrointestinal hemorrhage associated with gastric ulcer documented in this encounter Advance Directives Healthcare Agents on File Name Relationship Healthcare Agent Relationshi p Communication Juan Daniel Beaulieu Adult Child Health Care Repr esentative (appointed verbally by patient or by statute hierarchy) Care Teams Occasional Caregiver Relationship Specialty Start Date End Date Tameka Hooper MD [address] [place] [address] [place] [address] PCP - General Family Medicine 05/29/19 documented as of this encounter
--- OUTSIDE RECORDS SUMMARY | 2023-10-13 18:22 | External Medical Summary | Summary of Care ---
Author Name Unknown Organization [facility] Address [address] [place] [address] Phone [phone] Care Team Providers Care General Ledger Bookkeeper Name Role Phone Tameka Hooper MD Primary Care Prov ider Reason for Visit * Reason Onset Date Comments Intermediate Visit - Discharge 09/07/2023 Encounter Details Date Type Department Care Team (Latest Contact Info) Description 09/07/2023 6:30 AM EST Intermediate Visit [facility] [address] [place] [address] Bouchra Slater PA-C [address], [place] [phone] Acute on chronic respiratory failure with hypoxia [...] 9:40 AM EDT Office Visit Family Medicine [address] [place] [phone] Tameka Hooper MD [address] [place] [address] [place] [address] 10/23/2023 2:30 PM EDT Office Visit Rheumatology [address] [place] [phone] Jessica Stubbs CRNP [address] [place] [address] [place] [address] 10/31/2023 1:00 PM EDT Cardiac Studies Cardiac Studies, [facility] [address] [place] [address] 11/01/2023 9:30 AM EDT Procedure Only Endoscopy, [facility] [address] [place] [address] Gasper Kim, DO [address] [place] [address] 11/01/2023 10:00 AM EDT Procedure Only Endoscopy, [facility] [address] [place] [address] Gasper Kim, [address] [place] [address] 11/14/2023 12:20 PM EDT Office Visit Gastroenterology, [facility] [address] [place] [address] Gasper Kim, DO [address] [place] [address] 11/23/2023 3:00 PM EDT Office Visit Family Medicine [address] [place] [phone] Betsey Cramer CRNP [address] [place] [address] [place] [address] 03/26/2024 1:30 PM EDT Office Visit Nephrology [address] [place] [address] Ayana Anna PA-C [address] [place] [address] 05/01/2024 3:00 PM EDT Office Visit Dermatology [address] [place] [address] Anya Pratt PA-C [address] [place] [address] [place] [address] Health Maintenance Due Date Last Done Comments DISCUSS TOBACCO CESSATION (REFER TO SMARTSET #2661) 1940 COVID-19 Vaccine ( season) 2023 06/01/2021, 10/20/2020, 09/15/2020 Influenza Vaccine (FLU shot) (#1) 2023 Albumin/Creatinine Ratio 08/15/2023 08/15/2022, 01/31 CKD PHOS USE SMARTSET 90209 12/28/202312/02, 04/26/2022, 11/23/2021, Additional history exists GFR 03/03/2024 09/01/2023, 08/03, 02/14/2023, Additional history exists DXA Scan 08/01/2024 08/01/2022, 07/05, 07/07/2020, Additional history exists Depression Screening 08/21/2024 08/21/2023 O2 ASSESSMENT COMPLETED IN PAST YEAR FOR COPD 08/24/2024 08/24/2023 CKD HGB USE SMARTSET 50366 08/31/202408/31, 09/01/2023, 08/16/2023, Additional history exists COLONOSCOPY-EVERY 5 YRS AGES 18-100 07/31/2028 07/31/2023, 02/23/2022, 02/23/2022, Additional history exists DTaP,Tdap,and Td Vaccines (2 - Td or Tdap) 08/07/2030 08/07/2020 (Not indicated), 09/01/1998 Pneumococcal Vaccine: 65+ Years Completed 05/16/2016, 12/01/2014, 12/01/2013, Additional history exists VITAMIN D LEVEL ONCE IN A LIFETIME-USE SMARTSET# 38038 Completed 12/27/2022, 08/12/2022, 03/15/2022, Additional history exists [...] patient or by statute hierarchy) Care Teams General Ledger Bookkeeper Relationship Specialty Start Date End Date Tameka Hooper MD [address] [place] [address] [place] [address] PCP - General Family Medicine 05/29/19 documented as of this encounter
--- OUTSIDE RECORDS SUMMARY | 2023-10-13 18:22 | External Medical Summary | Summary of Care ---
Author Name Unknown Organization [facility] Address [address] [place] [address] Phone [phone] Care Team Providers Care Cosmetic Sales Name Role Phone Tameka Hooper MD Primary Care Prov ider Reason for Visit * Reason Onset Date Comments Fpc Visit - Discharge 09/07/2023 Encounter Details Date Type Department Care Team (Latest Contact Info) Description 09/07/2023 6:30 AM EST Fpc Visit [facility] [address] [place] [address] Bouchra Slater PA-C [address] [place], [place] [phone] Acute on chronic respiratory failure with hypoxia [...] AM EDT Office Visit Family Medicine [address] [place] [phone] Tameka Hooper MD [address] [place] [address] [place] [address] 10/23/2023 2:30 PM EDT Office Visit Rheumatology [address] [place] [phone] Jessica Stubbs CRNP [address] [place] [address] [place] [address] 10/31/2023 1:00 PM EDT Cardiac Studies Cardiac Studies, [facility] [address] [place] [address] 11/01/2023 9:30 AM EDT Procedure Only Endoscopy, [facility] [address] [place] [address] Gasper Kim, DO [address] [place] [address] 11/01/2023 10:00 AM EDT Procedure Only Endoscopy, [facility] [address] [place] [address] Gasper Kim, [address] [place] [address] 11/14/2023 12:20 PM EDT Office Visit Gastroenterology, [facility] [address] [place] [address] Gasper Kim, DO [address] [place] [address] 11/23/2023 3:00 PM EDT Office Visit Family Medicine [address] [place] [phone] Betsey Cramer CRNP [address] [place] [address] [place] [address] 03/26/2024 1:30 PM EDT Office Visit Nephrology [address] [place] [address] Ayana Anna PA-C [address] [place] [address] 05/01/2024 3:00 PM EDT Office Visit Dermatology [address] [place] [address] Anya Pratt PA-C [address] [place] [address] [place] [address] Health Maintenance Due Date Last Done Comments DISCUSS TOBACCO CESSATION (REFER TO SMARTSET #9931) 1940 COVID-19 Vaccine ( season) 2023 06/01/2021, 10/20/2020, 09/15/2020 Influenza Vaccine (FLU shot) (#1) 2023 Albumin/Creatinine Ratio 08/15/2023 08/15/2022, 01/31 CKD PHOS USE SMARTSET 14205 12/28/202312/02, 04/26/2022, 11/23/2021, Additional history exists GFR 03/03/2024 09/01/2023, 08/03, 02/14/2023, Additional history exists DXA Scan 08/01/2024 08/01/2022, 07/05, 07/07/2020, Additional history exists Depression Screening 08/21/2024 08/21/2023 O2 ASSESSMENT COMPLETED IN PAST YEAR FOR COPD 08/24/2024 08/24/2023 CKD HGB USE SMARTSET 19465 08/31/202408/31, 09/01/2023, 08/16/2023, Additional history exists COLONOSCOPY-EVERY 5 YRS AGES 18-100 07/31/2028 07/31/2023, 02/23/2022, 02/23/2022, Additional history exists DTaP,Tdap,and Td Vaccines (2 - Td or Tdap) 08/07/2030 08/07/2020 (Not indicated), 09/01/1998 Pneumococcal Vaccine: 65+ Years Completed 05/16/2016, 12/01/2014, 12/01/2013, Additional history exists VITAMIN D LEVEL ONCE IN A LIFETIME-USE SMARTSET# 36907 Completed 12/27/2022, 08/12/2022, 03/15/2022, Additional history exists [...] patient or by statute hierarchy) Care Teams Cosmetic Sales Relationship Specialty Start Date End Date Tameka Hooper MD [address] [place] [address] [place] [address] PCP - General Family Medicine 05/29/19 documented as of this encounter
--- OUTSIDE RECORDS SUMMARY | 2023-10-13 18:22 | External Medical Summary | Summary of Care ---
Author Name Unknown Organization [facility] Address [address] [place] [address] Phone [phone] Care Team Providers Care Java Software Architect Name Role Phone Tameka Hooper MD Primary Care Prov ider Reason for Referral * Evaluate & Treat - Unlimited Visits (Within 10 days (routine)) - Authorized Specialty Diagnoses / Procedures Referred By Alba araujo Referred To Contact HOME CARE / Home Care Diagnoses Chronic hypoxemic respiratory failure (HCC) Bouchra Slater, ERIKAC [address] [place] [id number] Referral ID Status Reason Start Date Expiration Date Visits Requested Visits Authorized [id number] Authorized Specialty Services Required 09/07/2023 999 999 Question Answer Referral Priority Within 10 days (routine) Where should this appointment be scheduled? [facility] Comments Documentation of [id number] Encounter Addendum Patient Name: Eliazar Beaulieu I certify that this patient is under my care and that I, or a nurse practitioner or physician's technical support assistant working with me, had a [id number] encounter that meets the physician [id number] encounter requirements with this patient on: 09/07/23 The encounter with the patient was in whole, or in part, for the following medical condition, which is the primary reason for home health care (List medical condition): Acute on Chronic Respiratory Failure, COPD exacerbation, Influenza A, CKD, DM I certify that, based on my findings, the following services are medically necessary home health services: Nursing, Physical Therapy, and OT To provide the following care/treatments: (All hospitalists not following the patient after discharge should complete this section): Primary Care Physician to follow home care plan of care after discharge: five to seven days My clinical findings support the need for the above services because: limited mobility due to COPD, chronic respiratory failure and recent Influenza A Further, I certify that my clinical findings support that this patient is homebound (i.e. Absences from home require considerable and taxing effort and are for medical reasons or pentecostalism services or infrequently or of short duration when for other reason) because: limited mobility due to COPD, chronic respiratory failure and recent Influenza A Physician Signature: Date of Signature: Physician Printed Name: Bouchra Slater PA-C Encounter Details Date Type Department Care Team (Late st Contact Info) Description 09/07/2023 Orders Only [address] [address] Bouchra Slater PA-C [address] [place] [address] Chronic hypoxemic respiratory failure (HCC)* Allergies Active Allergy Reactions Criticality Noted Date [...] as directed. 1 Each 1 02/14/2022 Active Albuterol Sulfate HFA 108 (90 Base) MCG/ACT Inhalation Aerosol SolutionIndication s:COPD, moderate (HCC) INHALE 2 PUFFS BY MOUTH NEEDED FOR COUGH, SHORTNESS OF BREATH OR WHEEZING. 18 g 5 09/01/2023 Active Rivaroxaban 15 MG Oral Tablet (Xarelto)Indicatio ns:Chronic atrial fibrillation (HCC) Take 1 Tablet by mouth in the morning. 90 Tablet 3 09/01/2023 Active Triamcinolone Acetonide 0.5 % External Cream (Aristocort)Indica tions:Dermatitis APPLY TO AFFECTED AREA TWICE A DAY 60 g 5 09/01/2023 Active Lisinopril 10 MG Oral Tablet (Prinivil)Indicati ons:Hypertensive kidney disease with stage 3b chronic kidney disease (HCC) Take 1 Tablet by mouth in the morning. 90 Tablet 3 09/01/2023 Active Escitalopram Oxalate 10 MG Oral Tablet (Lexapro)Indicatio ns:Major depressive disorder, single episode, unspecified Take 1 Tablet by mouth in the morning. 90 Tablet 1 09/01/2023 Active Solifenacin Succinate 5 MG Oral Tablet (VESIcare)Indicati ons:Urge incontinence,Urina ry frequency,Urinary urgency,Mixed incontinence Take 1 Tablet by mouth in the morning. 90 Tablet 3 09/01/2023 Active Anoro Ellipta 62.5-25 MCG/ACT Inhalation Aerosol Powder Breath ActivatedIndicatio ns:COPD, moderate (HCC) Inhale 1 Puff by mouth in the morning. 1 puff daily. 60 Blister Dosing Unit 3 09/01/2023 Active Budesonide 0.25 MG/2ML Inhalation Suspension (Pulmicort)Indicat ions:COPD, moderate (HCC) INHALE CONTENTS OF ONE VIAL (2ML) TWICE DAILY 60 mL 4 09/01/2023 Active Calcium 1000 + D 1000-20 MG-MCG Oral Tablet (Calcium Carb-Cholecalcifer ol) Take 1 Tablet by mouth daily. 90 Tablet 2 09/01/2023 Active Ferrous Sulfate 325 (65 Fe) MG Oral Tablet (Feosol) TAKE 1 TABLET BY MOUTH EVERY DAY WITH BREAKFAST 90 Tablet 1 09/01/2023 Active Fish Oil 500 MG Oral Capsule Take 1 Capsule by mouth in the morning. Take by mouth.. 90 Capsule 3 09/01/2023 Active Furosemide 20 MG Oral Tablet (Lasix)Indications :Hypertensive kidney disease with stage 3b chronic kidney disease (HCC) Take 1 Tablet by mouth in the morning. for fluid accumulation or weight gain. 90 Tablet 3 09/01/2023 Active guaiFENesin ER 600 MG Oral Tablet Extended Release 12 Hour (Humibid LA) Take 1 Tablet by mouth in the morning and 1 Tablet before bedtime. 60 Tablet 3 09/01/2023 Active Ipratropium-Albute rol 0.5-2.5 (3) MG/3ML Inhalation Solution (Duoneb)Indication s:COPD, moderate (HCC) Inhale 3 mL via nebulizer every 4 hours as needed for Wheezing. 3ml vial in nebuilzer every four hours as needed for wheezing 3 mL 4 09/01/2023 Active Mesalamine 1.2 GM Oral Tablet Delayed Release (Lialda)Indication s:IBD (inflammatory bowel disease) Take 3 Tablets by mouth in the morning. 270 Tablet 3 09/01/2023 Active Pantoprazole Sodium 40 MG Oral Tablet Delayed Release (Protonix)Indicati ons:IBD (inflammatory bowel disease) Take 1 Tablet by mouth in the morning. 90 Tablet 3 09/01/2023 Active PreserVision AREDS 2 Oral Tablet Chewable Take 1 Tablet by mouth daily. 90 Tablet 3 09/01/2023 Active Restasis 0.05 % Ophthalmic Emulsion INSTILL 1 DROP INTO EACH EYE TWICE DAILY 1.5 mL 09/01/2023 Active Systane 0.4-0.3 % Ophthalmic Solution (Artificial Tears) as needed 10 mL 09/01/2023 Active Vitamin C 500 MG Oral Tablet Chewable Take 1 Tablet by mouth in the morning. 30 Tablet 5 09/01/2023 Active Acetaminophen 325 MG Oral Tablet (Tylenol) Take 1 Tablet by mouth every 6 hours as needed for Pain, Mild, Fever >38C(100.5F), Pain, Moderate or Pain, Severe. Pt takes 1/2 tab daily 100 Tablet 5 09/01/2023 Active Verapamil HCl ER 120 MG Oral Tablet Extended Release (Isoptin SR) Take 1 Tablet by mouth in the morning. 0 09/06/2023 Active documented as of this encounter (statuses [...] 10/23/2023 2:30 PM EDT Office Visit Rheumatology [address] [place] [phone] Jessica Stubbs CRNP [facility] [place] [address] 10/31/2023 1:00 PM EDT Cardiac Studies Cardiac Studies, [facility] [address] [place] [address] 11/01/2023 9:30 AM EDT Procedure Only Endoscopy, [facility] [address] [place] [address] Gasper Kim, DO [address] [place] [address] 11/01/2023 10:00 AM EDT Procedure Only Endoscopy, [facility] [address] [place] [address] Gasper Kim, DO [address] [place] [address] 11/14/2023 12:20 PM EDT Office Visit Gastroenterology, [facility] [address] [place] [address] Gasper Kim, DO [address] [place] [address] 11/23/2023 3:00 PM EDT Office Visit Family Medicine [address] [place] [phone] Betsey Cramer CRNP [address] [place] [address] [place] [address] 03/26/2024 1:30 PM EDT Office Visit Nephrology [address] [place] [address] ZemaitisAyana PA-C [facility] [address] 05/01/2024 3:00 PM EDT Office Visit Dermatology [address] [place] [address] Anya Pratt PA-C [address] [place] [address] [place] [address] Scheduled Referrals Name Type Priority Associated Diagnoses Orde r Schedule HOME HEALTH REFERRAL OP Referral Within 10 days (routine) Chronic hypoxemic respiratory failure (HCC) Ordered: 09/07/2023 Health Maintenance Due Date Last Done Comments DISCUSS TOBACCO CESSATION (REFER TO SMARTSET #3291) 1942 COVID-19 Vaccine ( season) 2023 06/01/2021, 10/20/2020, 09/15/2020 Influenza Vaccine (FLU shot) (#1) 2023 Albumin/Creatinine Ratio 08/15/2023 08/15/2022, 01/31 CKD PHOS USE SMARTSET 65704 12/28/202312/02, 04/26/2022, 11/23/2021, Additional history exists GFR 03/03/2024 09/01/2023, 08/03, 02/14/2023, Additional history exists DXA Scan 08/01/2024 08/01/2022, 07/05, 07/07/2020, Additional history exists Depression Screening 08/21/2024 08/21/2023 O2 ASSESSMENT COMPLETED IN PAST YEAR FOR COPD 08/24/2024 08/24/2023 CKD HGB USE SMARTSET 70844 08/31/202408/31, 09/01/2023, 08/16/2023, Additional history exists COLONOSCOPY-EVERY 5 YRS AGES 18-100 07/31/2028 07/31/2023, 02/23/2022, 02/23/2022, Additional history exists DTaP,Tdap,and Td Vaccines (2 - Td or Tdap) 08/07/2030 08/07/2020 (Not indicated), 09/01/1998 Pneumococcal Vaccine: 65+ Years Completed 05/16/2016, 12/01/2014, 12/01/2013, Additional history exists VITAMIN D LEVEL ONCE IN A LIFETIME-USE SMARTSET# 36560 Completed 12/27/2022, 08/12/2022, 03/15/2022, Additional history exists [...] respiratory failure (HCC)- Primary Chronic respiratory failure documented in this encounter Advance Directives Healthcare Agents on File Name Relationship Healthcare Agent Relationshi p Communication Juan Daniel Christofer Adult Child Health Care Repr esentative (appointed verbally by patient or by statute hierarchy) Care Teams Java Software Architect Relationship Specialty Start Date End Date Tameka Hooper MD [address] [place] [address] [place] [address] PCP - General Family Medicine 05/29/19 documented as of this encounter
--- OUTSIDE RECORDS SUMMARY | 2023-10-13 18:22 | External Medical Summary | Summary of Care ---
Author Name Unknown Organization [facility] Address [address] [place] [address] Phone [phone] Care Team Providers Care Chief Of Harbor Patrol Name Role Phone Tameka Hooper MD Primary Care Prov ider Encounter Details Date Type Department Care Team (Late st Contact Info) Description 09/07/2023 Orders Only [facility] [address] [place] [address] Bouchra Slater PA-C [address] [place] [address] COPD, moderate (HCC); Major depressive disorder, single episode, unspecified; Hypertensive kidney disease with stage 3b chronic kidney disease (HCC); IBD (inflammatory bowel disease); Chronic atrial fibrillation (HCC); Urge incontinence; Urinary [...] 09/07/2023 Active Budesonide 0.25 MG/2ML Inhalation Suspension (Pulmicort)Indica [...] the morning. Take by mouth.. 90 Capsule 09/07/2023 Active Furosemide 20 MG Oral Tablet (Lasix)Indication [...] before bedtime. 60 Tablet 3 09/07/2023 Active Ipratropium-Albut donna 0.5-2.5 (3) MG/3ML Inhalation Solution (Duoneb)Indicatio ns:COPD, moderate (HCC) Inhale 3 mL via nebulizer every 4 hours as needed for Wheezing. 3ml vial in nebuilzer every four hours as needed for wheezing 3 mL 4 09/07/2023 Active Lisinopril 10 MG Oral Tablet (Prinivil)Indicat [...] 09/07/2023 Active Rivaroxaban 15 MG Oral Tablet (Xarelto)Indicati [...] the morning. 30 Tablet 5 09/07/2023 Active Albuterol Sulfate HFA 108 [...] (3) MG/3ML Inhalation Solution (Duoneb)Indicatio ns:COPD, moderate ([facility]) Inhale 3 mL via nebulizer every 4 [...] 10/23/2023 2:30 PM EDT Office Visit Rheumatology [address] [place] [phone] Jessica Stubbs CRNP [address] [facility] [place] [address] 10/31/2023 1:00 PM EDT Cardiac Studies Cardiac Studies, [facility] [address] [place], [place] [address] 11/01/2023 9:30 AM EDT Procedure Only Endoscopy, [facility] [address] [place] [address] Gasper Kim, DO [address] [place], [place] [address] 11/01/2023 10:00 AM EDT Procedure Only Endoscopy, [facility] [address] [place], [place] [address] Gasper Kim, DO [address] [place], [place] [address] 11/14/2023 12:20 PM EDT Office Visit Gastroenterology, [facility] [address] [place] [address] Gasper Kim, DO [address] [place], [place] [address] 11/23/2023 3:00 PM EDT Office Visit Family Medicine [address] [place] [phone] Betsey [address]ramer[address] [place] [address] 03/26/2024 1:30 PM EDT Office Visit Nephrology [address] [place] [address] Ayana Anna PA-C [address] [place] [address] 05/01/2024 3:00 PM EDT Office Visit Dermatology [address] [place] [address] Anya Pratt PA-C [address] [place] [address] [place] [address] Health Maintenance Due Date Last Done Comments DISCUSS TOBACCO CESSATION (REFER TO SMARTSET #2000) 1940 COVID-19 Vaccine (2022- season) 2023 06/01/2021, 10/20/2020, 09/15/2020 Influenza Vaccine (FLU shot) (#1) 2023 Albumin/Creatinine Ratio 08/15/2023 08/15/2022, 01/31 CKD PHOS USE SMARTSET 90549 12/28/202312/02, 04/26/2022, 11/23/2021, Additional history exists GFR 03/03/2024 09/01/2023, 08/03, 02/14/2023, Additional history exists DXA Scan 08/01/2024 08/01/2022, 07/05, 07/07/2020, Additional history exists Depression Screening 08/21/2024 08/21/2023 O2 ASSESSMENT COMPLETED IN PAST YEAR FOR COPD 08/24/2024 08/24/2023 CKD HGB USE SMARTSET 88334 08/31/202408/31, 09/01/2023, 08/16/2023, Additional history exists COLONOSCOPY-EVERY 5 YRS AGES 18-100 07/31/2028 07/31/2023, 02/23/2022, 02/23/2022, Additional history exists DTaP,Tdap,and Td Vaccines (2 - Td or Tdap) 08/07/2030 08/07/2020 (Not indicated), 09/01/1998 Pneumococcal Vaccine: 65+ Years Completed 05/16/2016, 12/01/2014, 12/01/2013, Additional history exists VITAMIN D LEVEL ONCE IN A LIFETIME-USE SMARTSET# 27375 Completed 12/27/2022, 08/12/2022, 03/15/2022, Additional history exists [...] classified Major depressive disorder, single episode, unspecified Hypertensive kidney disease with stage 3b chronic kidney disease (HCC) IBD (inflammatory bowel disease) Other and unspecified noninfectious gastroenteritis and colitis Chronic atrial fibrillation (HCC) Atrial fibrillation Urge incontinence Urinary frequency Urinary urgency Urgency of urination Mixed incontinence Mixed incontinence urge and stress (male)(female) documented in this encounter Advance Directives Healthcare Agents on File Name Relationship Healthcare Agent Relationshi p Communication Juan Daniel Beaulieu Adult Child Health Care Repr esentative (appointed verbally by patient or by statute hierarchy) Care Teams Chief Of Harbor Patrol Relationship Specialty Start Date End Date Tameka Hooper MD [address] [place] [address] [place] [address] PCP - General Family Medicine 05/29/19 documented as of this encounter
--- OUTSIDE RECORDS SUMMARY | 2023-10-13 18:23 | External Medical Summary ---
Author Name Unknown Address Unknown Organization [facility] [address] [place] [address] Laboratory Report Ordering Provider Test Date Status LAVINIA ESCOBAR 09/01/2023 05:48:00 Final Observation Date Value Abnormality Reference (Units ) Status BUN 09/01/2023 05:48:00 21 Above high normal 6-20 (mg/dL) Final Creatinine 09/01/2023 05:48:00 1.5 Above high normal 0.5-1.0 (mg/dL) Final Glomerular filtration rate/1.73 sq M.predicted [Volume Rate/Area] in Serum, Plasma or Blood by Creatinine-based formula (CKD-EPI) 09/01/2023 05:48:00 35 Below low normal >=60 (mL/min) Final eGFR is calculated based on the CKD-EPI 2020 equation SODIUM 09/01/2023 05:48:00 144 135-146 (m mol/L) Final Potassium 09/01/2023 05:48:00 4.3 3.5-5.1 (m mol/L) Final Cl 09/01/2023 05:48:00 106 98-107 (mm ol/L) Final CO2 09/01/2023 05:48:00 27 22-32 (mmo l/L) Final Anion gap 09/01/2023 05:48:00 11 7-15 (mmol /L) Final Glucose 09/01/2023 05:48:00 94 70-120 (mg /dL) Final Calcium 09/01/2023 05:48:00 8.5 8.4-10.2 ( mg/dL) Final [facility] [place] [address]
--- OUTSIDE RECORDS SUMMARY | 2023-10-13 18:23 | External Medical Summary | Summary of Care ---
Author Name Unknown Organization [facility] Address [address] [place] [address] Phone [phone] Care Team Providers Care Bacteriologist Soil Name Role Phone Tameka Hooper MD Primary Care Prov ider Reason for Visit * Reason Onset Date Comments Snf Visit 09/01/2023 Encounter Details Date Type Department Care Team (Latest Contact Info) Description 08/31/2023 11:30 AM EST Snf Visit [facility] [address] [place] [address] Bouchra Slater PA-C [address] [place], [place] [id number] Acute on chronic respiratory failure with hypoxia (HCC)*; COPD exacerbation (HCC); Influenza A; Peristomal hernia; Paroxysmal atrial fibrillation (HCC); Hypertensive kidney disease with stage 3b chronic kidney disease (HCC); Gastrointestinal hemorrhage associated with gastric ulcer; Colostomy status (HCC) Allergies Active Allergy Reactions Criticality Noted Date Comments Amoxicillin Rash 02/07/2020 Bactrim Rash 12/15/2011 Ciprofloxacin Rash 12/15/2011 Diltiazem Rash 05/29/2019 Piroxicam Rash 12/15/2011 Cephalexin Rash 12/15/2011 Meloxicam Rash 05/29/2019 Other reaction(s): Other Cilostazol Rash,Unknown 12/15/2011 Sulfamethoxazole High 01/19/2023 Other Reaction(s): Rash Trimethoprim High 01/19/2023 Other Reaction(s): Rash documented as of this encounter (statuses as of 09/01/2023) Medications Medication Sig Dispensed Refills Start Date [...] in the morning. 90 Tablet 08/17/2023 Active Vitamin C 500 MG Oral Tablet Chewable Take 1 Tablet by mouth in the morning. 30 Tablet 5 08/17/2023 Active Rivaroxaban 15 MG Oral Tablet (Xarelto)Indicatio ns:Chronic atrial fibrillation (HCC) Take 1 Tablet by mouth in the morning. 90 Tablet 08/17/2023 Active PreserVision AREDS 2 Oral Tablet Chewable Take 1 Tablet by mouth daily. 90 Tablet 08/17/2023 Active Oseltamivir Phosphate 30 MG Oral Capsule (Tamiflu) Take 1 Capsule by mouth in the morning and 1 Capsule before bedtime. 0 09/01/2023 Active documented as of this encounter (statuses as of 09/01/2023) Active Problems Problem Noted Date Diagnosed Date Peristomal hernia 08/31/2023 Pseudopolyposis of colon without [...] as of this encounter (statuses as of 09/01/2023) Resolved Problems Problem Noted Date Diagnosed Date [...] as of this encounter (statuses as of 09/01/2023) Immunizations Name Administration Dates Next Due COVID-19 [...] Care Team (Late st Contact Info) Description 09/06/2023 8:30 AM EST Snf Visit [address] [place] [address] Ephraim Burgess MD [address] [place] [address] [place] [address] 10/23/2023 2:30 PM EDT Office Visit Rheumatology [address] [place] [phone] Jessica Stubbs CRNP [facility] [place] [address] 10/31/2023 1:00 PM EDT Cardiac Studies Cardiac Studies, [facility] [address] [place] [address] 11/01/2023 9:30 AM EDT Procedure Only Endoscopy, [facility] [address] [place] [address] Gasper Kim DO [address] [place] [address] 11/01/2023 10:00 AM EDT Procedure Only Endoscopy, [facility] [address] [place] [address] Gasper Kim, DO [address] [place] [address] 11/14/2023 12:20 PM EDT Office Visit Gastroenterology, [facility] [address] [place] [address] Gasper Kim, DO [address] [place] [address] 11/23/2023 3:00 PM EDT Office Visit Family Medicine [address] [place] [phone] Betsey Cramer CRNP [address] [place] [address] [place] [address] 03/26/2024 1:30 PM EDT Office Visit Nephrology [address] [place] [address] ZemaAyana hurtado PA-C [address] [place] [address] 05/01/2024 3:00 PM EDT Office Visit Dermatology [address] [place] [address] Anya Pratt PA-C [address] [place] [address] [place] [address] Health Maintenance Due Date Last Done Comments DISCUSS TOBACCO CESSATION (REFER TO SMARTSET #0709) 1940 COVID-19 Vaccine ( season) 2023 06/01/2021, 10/20/2020, 09/15/2020 Influenza Vaccine (FLU shot) (#1) 2023 Albumin/Creatinine Ratio 08/15/2023 08/15/2022, 01/31 CKD PHOS USE SMARTSET 82482 12/28/202312/02, 04/26/2022, 11/23/2021, Additional history exists GFR 03/03/2024 09/01/2023, 08/03, 02/14/2023, Additional history exists DXA Scan 08/01/2024 08/01/2022, 07/05, 07/07/2020, Additional history exists CKD HGB USE SMARTSET 19632 08/16/202408/16, 08/14/2023, 08/14/2023, Additional history exists Depression [...] D LEVEL ONCE IN A LIFETIME-USE SMARTSET# 65342 Completed 12/27/2022, 08/12/2022, 03/15/2022, Additional history exists [...] with stage 3b chronic kidney disease (HCC) Gastrointestinal hemorrhage associated with gastric ulcer Colostomy status (HCC) Colostomy status documented in this encounter Advance Directives Healthcare Agents on File Name Relationship Healthcare Agent Relationshi p Communication Juan Daniel Beualieu Adult Child Health Care Repr esentative (appointed verbally by patient or by statute hierarchy) Care Teams Bacteriologist Soil Relationship Specialty Start Date End Date Tameka Hooper MD [address] [place] [address] [place] [address] PCP - General Family Medicine 05/29/19 documented as of this encounter
--- OUTSIDE RECORDS SUMMARY | 2023-10-13 18:23 | External Medical Summary | Continuity Of Care Document ---
Author Name Unknown Address [address] [place] [address] Organization [facility]) Care Team Providers Care Mobile Pet Groomer Name Role Phone Ephraim Burgess Primary Care Provider [phone] Allergies Allergy Reaction Start Date End Date [...] unspecified Active Z93.3 Colostomy status 08/31/2023 Active VITAL SIGNS Date Time Diastolic blood pressure Systolic blood pressure Body height Body weight Temperature SpO2 Blood Sugar Pulse Respirations 12652 209 99307 4 57.00 mm[Hg] - Sitting 128.00 mm[Hg] - Sitting 60 NI 170.00 NI 98.30 Oral 90.00 % 70.00/ min 18.00/min 26436 209 43121 3 57.00 mm[Hg] - Sitting 128.00 mm[Hg] - Sitting 98.30 Ear 70.00/ min 18.00/min 21444 210 10548 5 68.00 mm[Hg] - Sitting 121.00 mm[Hg] - Sitting 170.00 NI 97.00 Ear 66.00/ min 18.00/min 36542 210 95246 5 57.00 mm[Hg] - Lying Down 128.00 mm[Hg] - Lying Down 170.00 NI 98.30 Ear 70.00/ min 18.00/min 16124 210 32900 9 170.00 NI 71983 210 01797 6 170.00 NI 72423 210 11558 0 68.00 mm[Hg] - Sitting 121.00 mm[Hg] - Sitting 97.00 Oral 93.00 % 66.00/ min 18.00/min 02465 211 37148 4 38387 211 43387 6 64.00 mm[Hg] - Sitting 119.00 mm[Hg] - Sitting 98.50 Oral 95.00 % 70.00/ min 18.00/min 07027 212 34842 0 61.00 mm[Hg] - Sitting 138.00 mm[Hg] - Sitting 97.50 Ear 93.00 % 64.00/ min 20.00/min 39652 212 29018 7 60 NI 47589 213 65018 8 68.00 mm[Hg] - Sitting 125.00 mm[Hg] - Sitting 97.30 Ear 94.00 % 67.00/ min 20.00/min 41244 214 96869 8 70.00 mm[Hg] - Sitting 164.00 mm[Hg] - Sitting 98.90 Oral 95.00 % 80.00/ min 20.00/min 77635 215 78506 1 45.00 mm[Hg] - Sitting 122.00 mm[Hg] - Sitting 97.00 Ear 95.00 % 60.00/ min 18.00/min 41582 216 38268 9 66.00 mm[Hg] - Sitting 164.00 mm[Hg] - Sitting 98.70 Ear 95.00 % 71.00/ min 18.00/min 78755 216 90353 1 170.00 NI 52337 216 47719 9 170.00 NI 75370 217 83668 4 169.00 NI 90253 217 16865 7 97.30 Ear 93.00 % 84.00/ min 20.00/min 14845 217 20442 9 63.00 mm[Hg] - Sitting 134.00 mm[Hg] - Sitting 92739 218 51617 5 168.00 NI 00657 229 22985 6 73.00 mm[Hg] - Sitting 154.00 mm[Hg] - Sitting 59 NI 162.60 NI 99.20 Ear 97.00 % 67.00/ min 20.00/min 21290 301 64881 8 42481 301 02505 4 36939 301 46294 5 161.00 NI 84135 301 92372 3 73.00 mm[Hg] - Sitting 154.00 mm[Hg] - Sitting 99.20 Oral 67.00/ min 20.00/min 12143 301 85196 9 51.00 mm[Hg] - Sitting 137.00 mm[Hg] - Sitting 97.70 Ear 98.00 % 75.00/ min 22.00/min 47548 301 12227 0 73746 302 58240 8 70.00 mm[Hg] - Sitting 126.00 mm[Hg] - Sitting 98.60 Oral 91.00 % 91.00/ min 20.00/min 48781 303 77201 7 24431 303 04192 1 67.00 mm[Hg] - Sitting 116.00 mm[Hg] - Sitting 98.90 Ear 96.00 % 65.00/ min 18.00/min Immunizations Vaccine Date Status COVID-19 09/15/2020 Completed COVID-19 10/20/2020 Completed COVID-19 06/01/2021 Completed (PCV13)Pneumococcal 12/01/2014 Completed (PCV20)Pneumococcal 12/01/2013 Completed
--- OUTSIDE RECORDS SUMMARY | 2023-10-13 18:23 | External Medical Summary | Summary of Care ---
Author Name Unknown Organization [facility] Address [address] [place] [address] Phone [phone] Care Team Providers Care Digital Sales Representative Name Role Phone Tameka Hooper MD Primary Care Prov ider Reason for Visit * Reason Onset Date Comments Skilled Visit 09/05/2023 Encounter Details Date Type Department Care Team (Latest Contact Info) Description 09/05/2023 8:00 AM EST Long Term Visit [facility] [address] [place] [address] Bouchra Slater PA-C [address] [place] [address] Acute on chronic respiratory failure with hypoxia (HCC)*; COPD exacerbation (HCC); Influenza A; Hypertensive kidney disease with stage 3b chronic kidney disease (HCC); 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HCC) Allergies Active Allergy Reactions Criticality Noted Date Comments Amoxicillin Rash 02/07/2020 Bactrim Rash 12/15/2011 Ciprofloxacin Rash 12/15/2011 Diltiazem Rash 05/29/2019 Piroxicam Rash 12/15/2011 Cephalexin Rash 12/15/2011 Meloxicam Rash 05/29/2019 Other reaction(s): Other Cilostazol Rash,Unknown 12/15/2011 Sulfamethoxazole High 01/19/2023 Other Reaction(s): Rash Trimethoprim High 01/19/2023 Other Reaction(s): Rash documented as of this encounter (statuses as of 09/05/2023) Medications Medication Sig Dispensed Refills Start Date [...] EYE TWICE DAILY 1.5 mL 5 09/01/2023 Active Systane 0.4-0.3 % Ophthalmic Solution (Artificial Tears) as needed 10 mL 5 09/01/2023 Active Vitamin C 500 MG Oral Tablet Chewable Take 1 Tablet by mouth in the morning. 30 Tablet 5 09/01/2023 Active Acetaminophen 325 MG Oral Tablet (Tylenol) Take 1 Tablet by mouth every 6 hours as needed for Pain, Mild, Fever >38C(100.5F), Pain, Moderate or Pain, Severe. Pt takes 1/2 tab daily 100 Tablet 5 09/01/2023 Active Oseltamivir Phosphate 30 MG Oral Capsule (Tamiflu) Take 1 Capsule by mouth in the morning and 1 Capsule before bedtime. 0 09/01/2023 Active documented as of this encounter (statuses as of 09/05/2023) Active Problems Problem Noted Date Diagnosed Date [...] as of this encounter (statuses as of 09/05/2023) Resolved Problems Problem Noted Date Diagnosed Date [...] as of this encounter (statuses as of 09/05/2023) Immunizations Name Administration Dates Next Due COVID-19 [...] Contact Info) Description 09/06/2023 8:30 AM EST Long Term Visit [address] [place] [address] Ephraim Burgess MD [address] [place] [address] [place] [address] 09/13/2023 9:00 AM EDT Office Visit General Surgery, [facility] [address] [facility] [place] [address] Rik Saez MD [address] [place] [address] 10/23/2023 2:30 PM EDT Office Visit Rheumatology [address] [place] [phone] Jessica Stubbs CRNP [address] [facility] [place] [address] 10/31/2023 1:00 PM EDT Cardiac Studies Cardiac Studies, [facility] [address] [place], [place] [address] 11/01/2023 9:30 AM EDT Procedure Only Endoscopy, [facility] [address] [place] [address] Gasper Kim, DO [address] [place], [place] [address] 11/01/2023 10:00 AM EDT Procedure Only Endoscopy, [facility] [address] [place] [address] Gasper Kim, DO [address] [place], [place] [address] 11/14/2023 12:20 PM EDT Office Visit Gastroenterology, [facility] [address] [place], [place] [address] Gasper Kim, DO [address] [place], [place] [address] 11/23/2023 3:00 PM EDT Office Visit Family Medicine [address] [place] [phone] Betsey Cramer [address] [place] [address] 03/26/2024 1:30 PM EDT Office Visit Nephrology [address] [place] [address] ZemaAyana hurtado PA-C [address] [place] [address] 05/01/2024 3:00 PM EDT Office Visit Dermatology [address] [place] [address] Anya Pratt PA-C [address] [place] [address] [place] [address] Health Maintenance Due Date Last Done Comments DISCUSS TOBACCO CESSATION (REFER TO SMARTSET #3291) 1940 COVID-19 Vaccine ( season) 2023 06/01/2021, 10/20/2020, 09/15/2020 Influenza Vaccine (FLU shot) (#1) 2023 Albumin/Creatinine Ratio 08/15/2023 08/15/2022, 01/31 CKD PHOS USE SMARTSET 47108 12/28/202312/02, 04/26/2022, 11/23/2021, Additional history exists GFR 03/03/2024 09/01/2023, 08/03, 02/14/2023, Additional history exists DXA Scan 08/01/2024 08/01/2022, 07/05, 07/07/2020, Additional history exists Depression Screening 08/21/2024 08/21/2023 O2 ASSESSMENT COMPLETED IN PAST YEAR FOR COPD 08/24/2024 08/24/2023 CKD HGB USE SMARTSET 13478 08/31/202408/31, 09/01/2023, 08/16/2023, Additional history exists COLONOSCOPY-EVERY 5 YRS AGES 18-100 07/31/2028 07/31/2023, 02/23/2022, 02/23/2022, Additional history exists DTaP,Tdap,and Td Vaccines (2 - Td or Tdap) 08/07/2030 08/07/2020 (Not indicated), 09/01/1998 Pneumococcal Vaccine: 65+ Years Completed 05/16/2016, 12/01/2014, 12/01/2013, Additional history exists VITAMIN D LEVEL ONCE IN A LIFETIME-USE SMARTSET# [id number] Completed 12/27/2022, 08/12/2022, 03/15/2022, Additional history exists [...] Influenza A Influenza with other respiratory manifestations Hypertensive kidney disease with stage 3b chronic kidney disease (HCC) 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HCC) documented in this encounter Advance Directives Healthcare Agents on File Name Relationship Healthcare Agent Relationshi p Communication Juan Daniel Beaulieu Adult Child Health Care Repr esentative (appointed verbally by patient or by statute hierarchy) Care Teams Digital Sales Representative Relationship Specialty Start Date End Date Tameka Hooper MD [address] [place] [address] [place] [address] PCP - General Family Medicine 05/29/19 documented as of this encounter
--- OUTSIDE RECORDS SUMMARY | 2023-10-13 18:23 | External Medical Summary | Summary of Care ---
Author Name Unknown Organization [facility] Address [address] [place] [address] Phone [phone] Care Team Providers Care Post Anesthesia Care Unit Nurse Name Role Phone Tameka Hooper MD Primary Care Prov ider Encounter Details Date Type Department Care Team (Late st Contact Info) Description 08/31/2023 Orders Only Lab Mobile Phlebotomy [facility] [address], [place] [id number] Ephraim Burgess MD [address] [place] [address] [place] [address] Chronic respiratory failure (HCC)* Allergies Active Allergy Reactions Criticality Noted Date Comments Amoxicillin Rash 02/07/2020 Bactrim Rash 12/15/2011 Ciprofloxacin Rash 12/15/2011 Diltiazem Rash 05/29/2019 Piroxicam Rash 12/15/2011 Cephalexin Rash 12/15/2011 Meloxicam Rash 05/29/2019 Other reaction(s): Other Cilostazol Rash,Unknown 12/15/2011 Sulfamethoxazole High 01/19/2023 Other Reaction(s): Rash Trimethoprim High 01/19/2023 Other Reaction(s): Rash documented as of this encounter (statuses as of 08/31/2023) Medications Medication Sig Dispensed Refills Start Date [...] as of this encounter (statuses as of 08/31/2023) Active Problems Problem Noted Date Diagnosed Date [...] as of this encounter (statuses as of 08/31/2023) Resolved Problems Problem Noted Date Diagnosed Date [...] as of this encounter (statuses as of 08/31/2023) Immunizations Name Administration Dates Next Due COVID-19 [...] Team (Late st Contact Info) Description 09/01/2023 8:30 AM EST Laboratory Lab [facility]bot[facility] [address] [facility] [address] [facility] [address] [place] [address] 09/06/2023 8:30 AM EST Correction Visit [place] [address] [facility] [place] [address] Ephraim Burgess MD [address] [place] [address] [place] [address] 10/23/2023 2:30 PM EDT Office Visit Rheumatology [address] [place] [phone] Jessica Stubbs CRNP [address] [place] [address] [place] [address] 10/31/2023 1:00 PM EDT Cardiac Studies Cardiac Studies, [facility] [address] [place] [address] 11/01/2023 9:30 AM EDT Procedure Only Endoscopy, [facility] [address] [place] [address] Gasper Kim, DO [address] [place] [address] 11/01/2023 10:00 AM EDT Procedure Only Endoscopy, [facility] [address] [place] [address] Gasper Kim, DO [address] [place] [address] 11/14/2023 12:20 PM EDT Office Visit Gastroenterology, [facility] [address] [place] [address] Gasper Kim, DO [address] [place] [address] 11/23/2023 3:00 PM EDT Office Visit Family Medicine [address] [place] [phone] Betsey Cramer CRNP [address] [place] [address] [place] [address] 03/26/2024 1:30 PM EDT Office Visit Nephrology [address] [place] [address] Zemaitis, Ayana Kirkpatrick PA-C [address] [place] [address] 05/01/2024 3:00 PM EDT Office Visit Dermatology [address] [place] [address] TerenceAnya mendoza PA-C [address] [place] [address] [place] [address] Scheduled Orders Name Type Priority Associated Diagnoses Orde r Schedule CBC WITH WBC DIFFERENTIAL Lab Routine Chronic respiratory failure (HCC) Expected: 09/01/2023, Expires: 08/30/2024 BASIC METABOLIC PANEL Lab Routine Chronic respiratory failure (HCC) Expected: 09/01/2023, Expires: 08/30/2024 Health Maintenance Due Date Last Done Comments DISCUSS TOBACCO CESSATION (REFER TO SMARTSET #6456) 1940 COVID-19 Vaccine ( season) 2023 06/01/2021, 10/20/2020, 09/15/2020 Influenza Vaccine (FLU shot) (#1) 2023 Albumin/Creatinine Ratio 08/15/2023 08/15/2022, 01/31 CKD PHOS USE SMARTSET 90948 12/28/202312/02, 04/26/2022, 11/23/2021, Additional history exists GFR 02/12/2024 08/14/2023, 01/31, 12/27/2022, Additional history exists DXA Scan 08/01/2024 08/01/2022, 07/05, 07/07/2020, Additional history exists CKD HGB USE SMARTSET 54017 08/16/202408/16, 08/14/2023, 08/14/2023, Additional history exists Depression [...] D LEVEL ONCE IN A LIFETIME-USE SMARTSET# [id number] Completed 12/27/2022, 08/12/2022, 03/15/2022, Additional history exists [...] of this encounter Visit Diagnoses Diagnosis Chronic respiratory failure (HCC)- Primary Chronic respiratory failure documented in this encounter Advance Directives Healthcare Agents on File Name Relationship Healthcare Agent Relationshi p Communication Juan Daniel Beaulieu Adult Child Health Care Repr esentative (appointed verbally by patient or by statute hierarchy) Care Teams Post Anesthesia Care Unit Nurse Relationship Specialty Start Date End Date Tameka Hooper MD [address] [place] [address] [place] [address] PCP - General Family Medicine 05/29/19 documented as of this encounter
--- OUTSIDE RECORDS SUMMARY | 2023-10-13 18:23 | External Medical Summary | Continuity Of Care Document ---
Author Name Unknown Address [address] [place] [address] Organization [facility] ( ) Care Team Providers Care Batchmaker Name Role Phone Ephraim Burgess Primary Care Provider [phone] Allergies Allergy Reaction Start Date End Date Status AMOXIL Active BACTRIM Active CEPHALEXIN Active CILOSTAZOL Active CIPRO Active DILTIAZEM Active FELODIPINE Active MELOXICAM Active SULFA (SULFONAMIDE ANTIBIOTICS) Active VITAL SIGNS Date Time Diastolic blood pressure Systolic blood pressure Body height Body weight Temperature SpO2 Blood Sugar Pulse Respirations 23121 209 20219 4 57.00 mm[Hg] - Sitting 128.00 mm[Hg] - Sitting 60 NI 170.00 NI 98.30 Oral 90.00 % 70.00/ min 18.00/min 30392 209 79760 3 57.00 mm[Hg] - Sitting 128.00 mm[Hg] - Sitting 98.30 Ear 70.00/ min 18.00/min 21277 210 10404 5 68.00 mm[Hg] - Sitting 121.00 mm[Hg] - Sitting 170.00 NI 97.00 Ear 66.00/ min 18.00/min 26575 210 52995 5 57.00 mm[Hg] - Lying Down 128.00 mm[Hg] - Lying Down 170.00 NI 98.30 Ear 70.00/ min 18.00/min 48740 210 77632 9 170.00 NI 27198 210 23371 6 170.00 NI 49200 210 33763 0 68.00 mm[Hg] - Sitting 121.00 mm[Hg] - Sitting 97.00 Oral 93.00 % 66.00/ min 18.00/min 35595 211 65574 4 61906 211 47388 6 64.00 mm[Hg] - Sitting 119.00 mm[Hg] - Sitting 98.50 Oral 95.00 % 70.00/ min 18.00/min 33510 212 54899 0 61.00 mm[Hg] - Sitting 138.00 mm[Hg] - Sitting 97.50 Ear 93.00 % 64.00/ min 20.00/min 81638 212 55236 7 60 NI 77293 213 38295 8 68.00 mm[Hg] - Sitting 125.00 mm[Hg] - Sitting 97.30 Ear 94.00 % 67.00/ min 20.00/min 61833 214 72254 8 70.00 mm[Hg] - Sitting 164.00 mm[Hg] - Sitting 98.90 Oral 95.00 % 80.00/ min 20.00/min 23136 215 51446 1 45.00 mm[Hg] - Sitting 122.00 mm[Hg] - Sitting 97.00 Ear 95.00 % 60.00/ min 18.00/min 95523 216 43673 9 66.00 mm[Hg] - Sitting 164.00 mm[Hg] - Sitting 98.70 Ear 95.00 % 71.00/ min 18.00/min 46033 216 15690 1 170.00 NI 86689 216 62119 9 170.00 NI 26859 217 26868 4 169.00 NI 64260 217 30858 7 97.30 Ear 93.00 % 84.00/ min 20.00/min 47330 217 21985 9 63.00 mm[Hg] - Sitting 134.00 mm[Hg] - Sitting 88621 218 12351 5 168.00 NI 29870 229 12845 6 73.00 mm[Hg] - Sitting 154.00 mm[Hg] - Sitting 59 NI 162.60 NI 99.20 Ear 97.00 % 67.00/ min 20.00/min 08999 301 28288 8 Immunizations Vaccine Date Status COVID-19 09/15/2020 Completed COVID-19 10/20/2020 Completed COVID-19 06/01/2021 Completed (PCV13)Pneumococcal 12/01/2014 Completed (PCV20)Pneumococcal 12/01/2013 Completed
--- OUTSIDE RECORDS SUMMARY | 2023-10-13 18:23 | External Medical Summary | Summary of Care ---
Author Name Unknown Organization [facility] Address [address] [place] [address] Phone [phone] Care Team Providers Care [place] Name Role Phone Tameka Hooper MD Primary Care Prov ider Reason for Referral * Medication Prior Authorization - Pending Review Specialty Diagnoses / Procedures Referred By Contac t Referred To Contact Diagnoses COPD, moderate (HCC) Tameka Hooper MD [address] [place] [address] [place] [address] Referral ID Status Reason Start Date Expiration Date V isits Requested Visits Authorized [id number] Pending Review 999 999 * Medication Prior Authorization - Pending Review Specialty Diagnoses / Procedures Referred By Contac t Referred To Contact Diagnoses COPD, moderate (HCC) Tameka Hooper MD [address] [place] [address] [place] [address] Referral ID Status Reason Start Date Expiration Date V isits Requested Visits Authorized [id number] Pending Review 999 999 Reason for Visit * Reason Onset Date Comments Med Request 08/21/2023 Encounter Details Date Type Department Care Team (Late st Contact Info) Description 08/21/2023 Telephone Family Medicine [address] [place] [phone] Tameka Hooper MD [address] [place] [address] [place] [address] Med Request Allergies Active Allergy Reactions Criticality [...] as directed. 1 Each 1 2 Active Albuterol Sulfate HFA 108 (90 Base) MCG/ACT Inhalation Aerosol SolutionIndicati ons:COPD, moderate (HCC) INHALE 2 PUFFS BY MOUTH NEEDED FOR COUGH, SHORTNESS OF BREATH OR WHEEZING. 18 g 5 4 Active Rivaroxaban 15 MG Oral Tablet (Xarelto)Indicat ions:Chronic atrial fibrillation (HCC) Take 1 Tablet by mouth in the morning. 90 Tablet 3 4 Active Triamcinolone Acetonide 0.5 % External Cream (Aristocort)Silvana cations:Dermatit is APPLY TO AFFECTED AREA TWICE A DAY 60 g 5 4 Active Lisinopril 10 MG Oral Tablet (Prinivil)Indica tions:Hypertensi ve kidney disease with stage 3b chronic kidney disease (HCC) Take 1 Tablet by mouth in the morning. 90 Tablet 3 4 Active Escitalopram Oxalate 10 MG Oral Tablet (Lexapro)Indicat ions:Major depressive disorder, single episode, unspecified Take 1 Tablet by mouth in the morning. 90 Tablet 1 4 Active Solifenacin Succinate 5 MG Oral Tablet (VESIcare)Indica tions:Urge incontinence,Uri nary frequency,Urinar y urgency,Mixed incontinence Take 1 Tablet by mouth in the morning. 90 Tablet 3 4 Active Anoro Ellipta 62.5-25 MCG/ACT Inhalation Aerosol Powder Breath ActivatedIndicat ions:COPD, moderate (HCC) Inhale 1 Puff by mouth in the morning. 1 puff daily. 60 Blister Dosing Unit 3 4 Active Budesonide 0.25 MG/2ML Inhalation Suspension (Pulmicort)Indic ations:COPD, moderate (HCC) INHALE CONTENTS OF ONE VIAL (2ML) TWICE DAILY 60 mL 4 4 Active Calcium 1000 + D 1000-20 MG-MCG Oral Tablet (Calcium Carb-Cholecalcif donna) Take 1 Tablet by mouth daily. 90 Tablet 2 4 Active Ferrous Sulfate 325 (65 Fe) MG Oral Tablet (Feosol) TAKE 1 TABLET BY MOUTH EVERY DAY WITH BREAKFAST 90 Tablet 1 4 Active Fish Oil 500 MG Oral Capsule Take 1 Capsule by mouth in the morning. Take by mouth.. 90 Capsule 3 4 Active Furosemide 20 MG Oral Tablet (Lasix)Indicatio ns:Hypertensive kidney disease with stage 3b chronic [...] MG/3ML Inhalation Solution (Duoneb)Indicati ons:COPD, moderate (HCC) Inhale 3 mL via nebulizer every 4 hours as needed for Wheezing. 3ml vial in nebuilzer every four hours as needed for wheezing 3 mL 4 4 Active Mesalamine 1.2 GM Oral Tablet Delayed Release (Lialda)Indicati ons:IBD (inflammatory bowel disease) Take 3 Tablets by mouth in the morning. 270 Tablet 3 4 Active Pantoprazole Sodium 40 MG Oral Tablet Delayed Release (Protonix)Indica tions:IBD (inflammatory bowel disease) Take 1 Tablet by mouth in the morning. 90 Tablet 3 4 Active PreserVision AREDS 2 Oral Tablet Chewable Take 1 Tablet by mouth daily. 90 Tablet 3 4 Active Restasis 0.05 % Ophthalmic Emulsion INSTILL 1 DROP INTO EACH EYE TWICE DAILY 1.5 mL 5 4 Active Systane 0.4-0.3 % Ophthalmic Solution (Artificial Tears) as needed 10 mL 5 4 Active Vitamin C 500 MG Oral Tablet Chewable Take 1 Tablet by mouth in the morning. 30 Tablet 5 4 Active Acetaminophen 325 MG Oral Tablet (Tylenol) Take 1 Tablet by mouth every 6 hours as needed for Pain, Mild, Fever >38C(100.5F), Pain, Moderate or Pain, Severe. Pt takes 1/2 tab daily 100 Tablet 5 4 Active Triamcinolone Acetonide 0.5 % External Cream (Aristocort)Silvana cations:Dermatit is APPLY TO AFFECTED AREA TWICE A DAY 60 g 4 08/22/19 24 Discontinued(Re fill) Acetaminophen 325 MG Oral Tablet (Tylenol) Take 1 Tablet by mouth every 6 hours as needed for Pain, Mild, Fever >38C(100.5F), Pain, Moderate or Pain, Severe. Pt takes 1/2 tab daily 0 4 08/22/19 24 Discontinued(Re fill) Albuterol Sulfate HFA 108 (90 Base) MCG/ACT Inhalation Aerosol SolutionIndicati ons:COPD, moderate (HCC) INHALE 2 PUFFS BY MOUTH NEEDED FOR COUGH, SHORTNESS OF BREATH OR WHEEZING. 18 g 5 4 08/22/19 24 Discontinued(Re fill) Anoro Ellipta 62.5-25 MCG/ACT Inhalation Aerosol Powder Breath Activated Inhale 1 Puff by mouth in the morning. 1 puff daily. 60 Blister Dosing Unit 3 4 08/22/19 24 Discontinued(Re fill) Budesonide 0.25 MG/2ML Inhalation Suspension (Pulmicort) INHALE CONTENTS OF ONE VIAL (2ML) TWICE DAILY 60 mL 4 4 08/22/19 24 Discontinued(Re fill) Calcium 1000 + D 1000-20 MG-MCG Oral Tablet (Calcium Carb-Cholecalcif donna) Take 1 Tablet by mouth daily. 90 Tablet 2 4 08/22/19 24 Discontinued(Re fill) Escitalopram Oxalate 10 MG Oral Tablet (Lexapro)Indicat ions:Major depressive disorder, single episode, unspecified Take 1 Tablet by mouth in the morning. 90 Tablet 1 4 08/22/19 24 Discontinued(Re fill) Ferrous Sulfate 325 (65 Fe) MG Oral Tablet (Feosol) TAKE 1 TABLET BY MOUTH EVERY DAY WITH BREAKFAST 90 Tablet 1 4 08/22/19 24 Discontinued(Re fill) Furosemide 20 MG Oral Tablet (Lasix) Take 1 Tablet by mouth in the morning. for fluid accumulation or weight gain. 90 Tablet 3 4 08/22/19 24 Discontinued(Re fill) guaiFENesin ER 600 MG Oral Tablet Extended Release 12 Hour (Humibid LA) Take 1 Tablet by mouth in the morning and 1 Tablet before bedtime. 60 Tablet 3 4 08/22/19 24 Discontinued(Re fill) Ipratropium-Albu terol 0.5-2.5 (3) MG/3ML Inhalation Solution (Duoneb) Inhale 3 mL via nebulizer every 4 hours as needed for Wheezing. 3ml vial in nebuilzer every four hours as needed for wheezing 3 mL 4 4 08/22/19 24 Discontinued(Re fill) Lisinopril 10 MG Oral Tablet (Prinivil)Indica tions:Hypertensi ve kidney disease with stage 3b chronic kidney disease (HCC) Take 1 Tablet by mouth in the morning. 90 Tablet 3 4 08/22/19 24 Discontinued(Re fill) Mesalamine 1.2 GM Oral Tablet Delayed Release (Lialda) Take 3 Tablets by mouth in the morning. 270 Tablet 3 4 08/22/19 24 Discontinued(Re fill) Fish Oil 500 MG Oral Capsule Take by mouth. 90 Capsule 4 08/22/19 24 Discontinued(Re fill) Pantoprazole Sodium 40 MG Oral Tablet Delayed Release (Protonix) Take 1 Tablet by mouth in the morning. 90 Tablet 3 4 08/22/19 24 Discontinued(Re fill) Restasis 0.05 % Ophthalmic Emulsion INSTILL 1 DROP INTO EACH EYE TWICE DAILY 1.5 mL 5 4 08/22/19 24 Discontinued(Re fill) Solifenacin Succinate 5 MG Oral Tablet (VESIcare)Indica tions:Urge incontinence,Uri nary frequency,Urinar y urgency,Mixed incontinence Take 1 Tablet by mouth in the morning. 90 Tablet 3 4 08/22/19 24 Discontinued(Re fill) Systane 0.4-0.3 % Ophthalmic Solution (Artificial Tears) as needed 10 mL 5 4 08/24/19 24 Discontinued Vitamin C 500 MG Oral Tablet Chewable Take 1 Tablet by mouth in the morning. 30 Tablet 5 4 08/22/19 24 Discontinued(Re fill) Rivaroxaban 15 MG Oral Tablet (Xarelto)Indicat ions:Chronic atrial fibrillation (HCC) Take 1 Tablet by mouth in the morning. 90 Tablet 3 4 08/22/19 24 Discontinued(Re fill) PreserVision AREDS 2 Oral Tablet Chewable Take 1 Tablet by mouth daily. 90 Tablet 3 4 08/22/19 24 Discontinued(Re fill) documented as of this [...] encounter Miscellaneous Notes * Addendum Note - Tameka Hooper MD - 09/01/2023 4:16 PM EST Addended by: TAMEKA RICKS on: 09/01/2023 04:16 PM Modules accepted: Orders * Addendum Note - Nury Vazquez LPN - 08/22/2023 2:45 PM ESTAddended by: NURY VAZQUEZ on: 08/22/2023 02:45 PM Modules accepted: Orders * Telephone Encounter - Nury Vazquez LPN - 08/22/2023 1:32 PM EST HH Concerns Madisyn RN, Calling from: [facility] Report/Concerns of: Medication Related Symptoms: none Vitals: T 97.5 P 81 RR 20 BP 152/48 138/52 SP O2 93 3 lpm Lung sounds diminished. Weight 157 Blood sugar n/a Narrative: Madisyn calling from [facility]. Patient was sent home from [facility]. There are medication discrepancies. Sent home with Carafate 4 times a day until . Not on our med list. Need all scripts sent to [facility] to get blister packed. [...] Madisyn with any advice or orders at [phone] Please fax new orders to [phone] Left [facility] on Monday. Nebulizer pipe thrown away. Asking for a new one. * Telephone Encounter - Tameka Hooper MD - 08/21/2023 3:56 PM EST Noted * Telephone Encounter - Nury Vazquez LPN - 08/21/2023 2:28 PM EST Admission/Start of Care Admission/Start of Care: Madisyn RN, [place] [facility]: [facility], for: GI Bleed and respiratory failure. Home for a couple hours and had resp. Failure and went back in to [facility]. then she went to [facility] for rehab. from 08/11 to 08/20 [facility] Referral received for: Intermediate, PT, and OT Planned start of care date:Yes, Date 08/21/23 Start of care completed on: 08/21/23 Report/Concerns of: none Symptoms: none Vitals: T 97.6 P 79 RR 18 BP 138/66 SP O2 89 @ 3lpm n.c. Lung sounds clear, but diminished. Weight 156 lbs Blood sugar n/a Narrative: Madisyn calling from [facility]. Patient was at [facility]. Discharged home for 2 hours. Hadrespiratory failure and taken back to [facility]. From there went to [facility] for rehab. Next Nursing visit(s) on [...] back madisyn with advice or orders at [phone] documented in this encounter Plan of Treatment Upcoming Encounters Date Type Department Care Team (Late st Contact Info) Description 09/06/2023 8:30 AM EST Assisted Visit [place] [phone] Ephraim Burgess MD [address] [place] [address] [place] [address] 10/23/2023 2:30 PM EDT Office Visit Rheumatology [address] [place] [phone] Jessica Stubbs CRNP [address] [place] [address] [place] [address] 10/31/2023 1:00 PM EDT Cardiac Studies Cardiac Studies, [facility] [address] [place] [address] 11/01/2023 9:30 AM EDT Procedure Only Endoscopy, [facility] [address] [place] [address] Gasper Kim, DO [address] [place] [address] 11/01/2023 10:00 AM EDT Procedure Only Endoscopy, [facility] [address] [place] [address] Gasper Kim, DO [address] [place] [address] 11/14/2023 12:20 PM EDT Office Visit Gastroenterology, [facility] [address] [place] [address] Gasper Kim, DO [address] [place] [address] 11/23/2023 3:00 PM EDT Office Visit Family Medicine [address] [place] [phone] Betsey Cramer CRNP [address] [place] [address] [place] [address] 03/26/2024 1:30 PM EDT Office Visit Nephrology [address] [place] [address] Ayana Anna PA-C [address] [place] [address] 05/01/2024 3:00 PM EDT Office Visit Dermatology [address] [place] [address] Anya Pratt PA-C [address] [place] [address] [place] [address] Health Maintenance Due Date Last Done Comments DISCUSS TOBACCO CESSATION (REFER TO SMARTSET #6591) 1942 COVID-19 Vaccine ( season) 2023 06/01/2021, 10/20/2020, 09/15/2020 Influenza Vaccine (FLU shot) (#1) 2023 Albumin/Creatinine Ratio 08/15/2023 08/15/2022, 01/31 CKD PHOS USE SMARTSET 76369 12/28/202312/02, 04/26/2022, 11/23/2021, Additional history exists GFR 03/03/2024 09/01/2023, 08/03, 02/14/2023, Additional history exists DXA Scan 08/01/2024 08/01/2022, 07/05, 07/07/2020, Additional history exists Depression Screening 08/21/2024 08/21/2023 O2 ASSESSMENT COMPLETED IN PAST YEAR FOR COPD 08/24/2024 08/24/2023 CKD HGB USE SMARTSET 35544 08/31/202408/31, 09/01/2023, 08/16/2023, Additional history exists COLONOSCOPY-EVERY 5 YRS AGES 18-100 07/31/2028 07/31/2023, 02/23/2022, 02/23/2022, Additional history exists DTaP,Tdap,and Td Vaccines (2 - Td or Tdap) 08/07/2030 08/07/2020 (Not indicated), 09/01/1998 Pneumococcal Vaccine: 65+ Years Completed 05/16/2016, 12/01/2014, 12/01/2013, Additional history exists VITAMIN D LEVEL ONCE IN A LIFETIME-USE SMARTSET# [id number] Completed 12/27/2022, 08/12/2022, 03/15/2022, Additional history exists [...] as of this encounter Visit Diagnoses Diagnosis IBD (inflammatory bowel disease)- Primary Other and unspecified noninfectious gastroenteritis and colitis COPD, moderate (HCC) Chronic airway obstruction, not [...] patient or by statute hierarchy) Care Teams [place] Relationship Specialty Start Date End Date Tameka Hooper MD [address] [place] [address] [place] [address] PCP - General Family Medicine 05/29/19 documented as of this encounter
--- OUTSIDE RECORDS SUMMARY | 2023-10-13 18:23 | External Medical Summary | Summary of Care ---
Author Name Unknown Organization [facility] Address [address] [facility] [address] Phone [phone] Care Team Providers Care Supervisor [place] [place] Name Role Phone Tameka Hooper MD Primary Care Prov ider Reason for Visit * Reason Onset Date Comments Home Health 08/28/2023 case management 08/28/2023 Encounter Details Date Type Department Care Team (Late st Contact Info) Description 08/28/2023 Telephone Family Medicine [address] [place] [phone] Sameer Mckinnon MD [address] [place] [address] [place] [address] Home Health; case management Allergies Active Allergy Reactions Criticality Noted Date Comments Amoxicillin Rash 02/07/2020 Bactrim Rash 12/15/2011 Ciprofloxacin Rash 12/15/2011 Diltiazem Rash 05/29/2019 Piroxicam Rash 12/15/2011 Cephalexin Rash 12/15/2011 Meloxicam Rash 05/29/2019 Other reaction(s): Other Cilostazol Rash,Unknown 12/15/2011 Sulfamethoxazole High 01/19/2023 Other Reaction(s): Rash Trimethoprim High 01/19/2023 Other Reaction(s): Rash documented as of this encounter (statuses as of 08/29/2023) Medications Medication Sig Dispensed Refills Start Date [...] as of this encounter (statuses as of 08/29/2023) Active Problems Problem Noted Date Diagnosed Date [...] as of this encounter (statuses as of 08/29/2023) Resolved Problems Problem Noted Date Diagnosed Date [...] as of this encounter (statuses as of 08/29/2023) Immunizations Name Administration Dates Next Due COVID-19 [...] encounter Miscellaneous Notes * Telephone Encounter - Karen Olivier RN - 08/29/2023 10:59 AM EST Admitted to [facility] 08/28/23. PCP notified. * Telephone Encounter - Karen Olivier RN - 08/29/2023 8:21 AM EST Please note - I did send my part of this encounter directly to you, as you can see in the routing history. I do not know who took the home health message, that it was sent to Dr Mckinnon. Thank you. * Telephone Encounter - Tameka Hooper MD - 08/28/2023 4:09 PM EST Agree with scheduling appointment. Also recommend cutting Lisinopril dose to 5mg daily, check BP daily, and call patient back in 3 days to follow up. * Telephone Encounter - Karen Olivier RN - 08/28/2023 3:52 PM EST [facility] trigger on post discharge IVR call . Answered YES to being dizzy or unsteady with ambulation. Called and spoke with patient: Alert, oriented, pleasant. Reports lightheadedness, as ongoing, for months. Inpatient and rehab stays have not improved it at all. Is an "all day thing", everyday. Does not use an assistive device with ambulation. Denies any falls. Changes positions slowly. Adequate intake of fluids. Active with home health. I see they called in today, reporting the same thing. Does not use her CPAP, and hasn't for a long time. Has appointment with Sleep Medicine on Monday - unsure if she will be able to keep it "if I am still this lightheaded". Reports she no longer drives. She is now in her son's care. Her brother also assists with transportation. She will discuss with them. Informed her Dr Mckinnon also recommended she be seen in clinic before her scheduled October appointment. Patient not happy, but did not say no. Continues to use her home oxygen 23/01 at 3 LPM. Reports taking meds as ordered. Meds not causing any issues. Denies new or uncontrolled pain. Denies feeling feverish. No more short of breath than her usual. Denies swelling. Denies nausea. Bowels moving, no diarrhea. Skin intact. Has adequate help at home. Patient will be expecting call from scheduling regarding appointment. * Telephone Encounter - Sameer Mckinnon MD [...] PM EST Office Visit [facility] [address] [place] [address] Lynn Busby, DO [address] [place] [address] 10/23/2023 2:30 PM EDT Office Visit Rheumatology [address] [place] [phone] Jessica Stubbs [address] [place] [address] 10/31/2023 1:00 PM EDT Cardiac Studies Cardiac Studies, [facility] [address] [place] [address] 11/01/2023 9:30 AM EDT Procedure Only Endoscopy, [facility] [address] [place] [address] Gasper Kim, [address] [place] [address] 11/01/2023 10:00 AM EDT Procedure Only Endoscopy, [facility] [address] [place] [address] Gasper Kim, [address] [place] [address] 11/14/2023 12:20 PM EDT Office Visit Gastroenterology, [facility] [address] [place] [address] Gasper Kim, DO [address] [place] [address] 11/23/2023 3:00 PM EDT Office Visit Family Medicine [address] [phone] Betsey Cramer CRNP [address] [place] [address] [place] [address] 03/26/2024 1:30 PM EDT Office Visit Nephrology [address] [place] [address] Ayana Anna PA-C [address] [place] [address] 05/01/2024 3:00 PM EDT Office Visit Dermatology [address] [place] [address] Anya Pratt PA-C [address] [place] [address] [place] [address] Health Maintenance Due Date Last Done Comments DISCUSS TOBACCO CESSATION (REFER TO SMARTSET #1919) 1940 COVID-19 Vaccine ( season) 2023 06/01/2021, 10/20/2020, 09/15/2020 Influenza Vaccine (FLU shot) (#1) 2023 Albumin/Creatinine Ratio 08/15/2023 08/15/2022, 01/31 CKD PHOS USE SMARTSET 27144 12/28/202312/02, 04/26/2022, 11/23/2021, Additional history exists GFR 02/12/2024 08/14/2023, 01/31, 12/27/2022, Additional history exists DXA Scan 08/01/2024 08/01/2022, 07/05, 07/07/2020, Additional history exists CKD HGB USE SMARTSET 13700 08/16/202408/16, 08/14/2023, 08/14/2023, Additional history exists Depression [...] D LEVEL ONCE IN A LIFETIME-USE SMARTSET# 33274 Completed 12/27/2022, 08/12/2022, 03/15/2022, Additional history exists [...] as of this encounter Visit Diagnoses Diagnosis Need for case management follow-up- Primary documented in this encounter Advance Directives Healthcare Agents on File Name Relationship Healthcare Agent [facility] Communication Juan Daniel Beaulieu Adult Child Health Care Repr esentative (appointed verbally by patient or by statute hierarchy) Care Teams Supervisor [employer]oultry Hatchery Relationship Specialty Start Date End Date Tameka Hooper MD [address] [place] [address] [place] [address] PCP - General Family Medicine 05/29/19 documented as of this encounter
--- OUTSIDE RECORDS SUMMARY | 2023-10-13 18:23 | External Medical Summary | Summary of Care ---
Author Name Unknown Organization [facility] Address [address] [place] [address] Phone [phone] Care Team Providers Care Assembler Trim Name Role Phone Tameka Hooper MD Primary Care Prov ider Reason for Visit * Reason Onset Date Comments Half-Way Visit 09/01/2023 Encounter Details Date Type Department Care Team (Latest Contact Info) Description 08/31/2023 11:30 AM EST Half-Way Visit [facility] [address] [place] [address] Bouchra Slater PA-C [address] [place], [place] [phone] Acute on chronic respiratory failure with hypoxia [...] Contact Info) Description 09/06/2023 8:30 AM EST Half-Way Visit [address] [place] [address] Ephraim Burgess MD [address] [place] [address] [place] [address] 10/23/2023 2:30 PM EDT Office Visit Rheumatology [address] [place] [phone] Jessica Stubbs CRNP [facility] [place] [address] 10/31/2023 1:00 PM EDT Cardiac Studies Cardiac Studies, [facility] [address] [place] [address] 11/01/2023 9:30 AM EDT Procedure Only Endoscopy, [facility] [address] [place] [address] Gasper Kim DO [address] [place] [address] 11/01/2023 10:00 AM EDT Procedure Only Endoscopy, [facility] [address] [place] [address] Gasper Kim, DO [address] [place] [address] 11/14/2023 12:20 PM EDT Office Visit Gastroenterology, [facility] [address] [place] [address] Gasper Kim, DO [address] [place] [address] 11/23/2023 3:00 PM EDT Office Visit Family Medicine [address] [place] [phone] Betsey Cramer CRNP [address] [place] [address] [place] [address] 03/26/2024 1:30 PM EDT Office Visit Nephrology [address] [place] [address] ZemaAyana hurtado PA-C [address] [place] [address] 05/01/2024 3:00 PM EDT Office Visit Dermatology [address] [place] [address] Anya Pratt PA-C [address] [place] [address] [place] [address] Health Maintenance Due Date Last Done Comments DISCUSS TOBACCO CESSATION (REFER TO SMARTSET #4203) 1940 COVID-19 Vaccine ( season) 2023 06/01/2021, 10/20/2020, 09/15/2020 Influenza Vaccine (FLU shot) (#1) 2023 Albumin/Creatinine Ratio 08/15/2023 08/15/2022, 01/31 CKD PHOS USE SMARTSET 01074 12/28/202312/02, 04/26/2022, 11/23/2021, Additional history exists GFR 03/03/2024 09/01/2023, 08/03, 02/14/2023, Additional history exists DXA Scan 08/01/2024 08/01/2022, 07/05, 07/07/2020, Additional history exists CKD HGB USE SMARTSET 74575 08/16/202408/16, 08/14/2023, 08/14/2023, Additional history exists Depression [...] D LEVEL ONCE IN A LIFETIME-USE SMARTSET# 80367 Completed 12/27/2022, 08/12/2022, 03/15/2022, Additional history exists [...] patient or by statute hierarchy) Care Teams Assembler Trim Relationship Specialty Start Date End Date Tameka Hooper MD [address] [place] [address] [place] [address] PCP - General Family Medicine 05/29/19 documented as of this encounter
--- OUTSIDE RECORDS SUMMARY | 2023-10-13 18:23 | External Medical Summary ---
Author Name Unknown Address Unknown Organization [facility] [address] [place] [address] Laboratory Report Ordering Provider Test Date Status LAVINIA ESCOBAR 09/01/2023 05:48:00 Final Observation Date Value Abnormality Reference (Units ) Status WBC, Total 09/01/2023 05:48:00 11.20 Above high normal 4 .00-10.80 (K/uL) Final RBC 09/01/2023 05:48:00 3.12 3.85-5.15 (M/uL) Final Hemoglobin 09/01/2023 05:48:00 8.9 Below low normal 12 .0-15.3 (g/dL) Final HCT 09/01/2023 05:48:00 30.5 Below low normal 36. 0-45.2 (%) Final MCV 09/01/2023 05:48:00 97.8 81.5-97.5 (fL) Final MCH 09/01/2023 05:48:00 28.5 27.0-34.0 (pg) Final MCHC 09/01/2023 05:48:00 29.2 32.0-36.0 (g/dL) Final RDW 09/01/2023 05:48:00 17.3 11.5-15.5 (%) Final Platelets 09/01/2023 05:48:00 293 140-400 (K /uL) Final MPV 09/01/2023 05:48:00 9.7 6.6-11.1 ( fL) Final Performing Location [facility] [address] [place] [address]
--- OUTSIDE RECORDS SUMMARY | 2023-10-13 18:23 | External Medical Summary ---
Author Name Unknown Address Unknown Organization K01:[facility] [address] [place] [address] Laboratory Report Ordering Provider Test Date Status LAVINIA ESCOBAR 09/05/2023 23:55:00 Final <10,000 colonies/ml mixed no rmal julian Observation Date Value Abnormality Reference (Units ) Status Bacteria identified in Specimen by Culture 09/05/2023 23:55:00 [id number]^PROTEUS PENNERI Abnormal Final >100,000 colonies/mL Proteus penneri Bacteria identified in Specimen by Culture 09/05/2023 23:55:00 [id number]^PROTEUS MIRABILIS Abnormal Final >100,000 colonies/mL Proteus mirabilis Performing Location [facility] - [address] [facility] [address] Ordering Provider Test Date Status LAVINIA ESCOBAR 09/05/2023 23:55:00 Final Observation Date Value Abnormality Reference (Units ) Status Ampicillin + Sulbactam 09/05/2023 23:55:00 16 Intermediate Final Cefepime susceptibility 09/05/2023 23:55:00 <=1 Susceptible Final Ceftriaxone suceptibility 09/05/2023 23:55:00 <=1 Susceptible Final Ciprofloxacin 09/05/2023 23:55:00 <=0.25 Susceptible Final Due to serious side effects, the FDA has advised against using Ciprofloxacin to treat uncomplicated UTIs and respiratory tract infections unless there are no alternative treatment options. Gentamicin susceptibility 09/05/2023 23:55:00 <=1 Susc eptible Final Piperacillin + Tazobactamsusceptibility 09/05/2023 23:55:00 <=4 Susceptible Final TMP-SMZ susceptibility 09/05/2023 23:55:00 <=20 Suscept ible Final Performing Location [facility] [place] [address] [facility] [address] Ordering Provider Test Date Status LAVINIA ESCOBAR 09/05/2023 23:55:00 Final Observation Date Value Abnormality Reference (Units ) Status Ampicillin 09/05/2023 23:55:00 >=32 Resistant Final Ampicillin + Sulbactam 09/05/2023 23:55:00 8 Susceptible Final Cefazolin 09/05/2023 23:55:00 8 Susceptible Final Cefepime susceptibility 09/05/2023 23:55:00 <=1 Susceptible Final Ceftriaxone suceptibility 09/05/2023 23:55:00 <=1 Susceptible Final Ciprofloxacin 09/05/2023 23:55:00 >=4 Resistant Final Due to serious side effects, the FDA has advised against using Ciprofloxacin to treat uncomplicated UTIs and respiratory tract infections unless there are no alternative treatment options. Gentamicin susceptibility 09/05/2023 23:55:00 >=16 Resi stant Final Levofloxacin susceptibility 09/05/2023 23:55:00 4 Re sistant Final Due to serious side effects, the FDA has advised against using Levofloxacin to treat uncomplicated UTIs and respiratory tract infections unless there are no alternative treatment options. Piperacillin + Tazobactamsusceptibility 09/05/2023 23:55:00 <=4 Susceptible Final Tobramycinsusceptibility 09/05/2023 23:55:00 >=16 Resis tant Final TMP-SMZ susceptibility 09/05/2023 23:55:00 >=320 Resista nt Final Test: Culture, Urine, Quanti tative
Specimen Source: Urine, Unspecified
Specimen Type: Urine
Specimen Date: 09/05/2023 11:55 PM
Result Date: 09/10/2023 11:16 AM
Result Status: Final result
Abnormal: Yes
Resulting Lab: [facility]
[address]
[place] [address]

CULTURE

>100,000 colonies/mL Proteus penneri (Abnormal)

>100,000 colonies/mL Proteus mirabilis (Abnormal)

<10,000 colonies/ml mixed normal julian

SUSCEPTIBILITY

Proteus penneri Proteus mirabilis
METHOD MICROBROTH DILUTIONS MICROBROTH DILUTIONS

AMPICILLIN >=32 Resistant
AMPICILLIN/SULBACTAM 16 Intermediate 8 Susceptible
CEFAZOLIN 8 Susceptible
CEFEPIME <=1 Susceptible <=1 Susceptible
CEFTRIAXONE <=1 Susceptible <=1 Susceptible
CIPROFLOXACIN <=0.25 Susceptible >=4 Resistant
GENTAMICIN <=1 Susceptible >=16 Resistant
LEVOFLOXACIN 4 Resistant
PIPERACILLIN TAZOBACTAM <=4 Susceptible <=4 Susceptible
TOBRAMYCIN >=16 Resistant
TRIMETH/SULFAMETHOXAZOLE <=20 Susceptible >=320 Resistant

null Performing Location [facility] [place] [address] [facility] [address] [facility] [address]
--- OUTSIDE RECORDS SUMMARY | 2023-10-13 18:23 | External Medical Summary | Continuity Of Care Document ---
Author Name Unknown Address [address] [place] [address] Organization [facility]) Care Team Providers Care Lining Stamper Name Role Phone Ephraim Burgess Primary Care Provider [phone] Allergies Allergy Reaction Start Date End Date [...] weight Temperature SpO2 Blood Sugar Pulse Respirations 87784 209 46123 4 57.00 mm[Hg] - Sitting 128.00 mm[Hg] - Sitting 60 NI 170.00 NI 98.30 Oral 90.00 % 70.00/ min 18.00/min 24064 209 50330 3 57.00 mm[Hg] - Sitting 128.00 mm[Hg] - Sitting 98.30 Ear 70.00/ min 18.00/min 40513 210 81928 5 68.00 mm[Hg] - Sitting 121.00 mm[Hg] - Sitting 170.00 NI 97.00 Ear 66.00/ min 18.00/min 41966 210 71606 5 57.00 mm[Hg] - Lying Down 128.00 mm[Hg] - Lying Down 170.00 NI 98.30 Ear 70.00/ min 18.00/min 52869 210 11224 9 170.00 NI 84639 210 01546 6 170.00 NI 83619 210 44319 0 68.00 mm[Hg] - Sitting 121.00 mm[Hg] - Sitting 97.00 Oral 93.00 % 66.00/ min 18.00/min 75161 211 72454 4 99468 211 83983 6 64.00 mm[Hg] - Sitting 119.00 mm[Hg] - Sitting 98.50 Oral 95.00 % 70.00/ min 18.00/min 00354 212 20458 0 61.00 mm[Hg] - Sitting 138.00 mm[Hg] - Sitting 97.50 Ear 93.00 % 64.00/ min 20.00/min 53042 212 40429 7 60 NI 07412 213 57826 8 68.00 mm[Hg] - Sitting 125.00 mm[Hg] - Sitting 97.30 Ear 94.00 % 67.00/ min 20.00/min 48382 214 49596 8 70.00 mm[Hg] - Sitting 164.00 mm[Hg] - Sitting 98.90 Oral 95.00 % 80.00/ min 20.00/min 53739 215 61629 1 45.00 mm[Hg] - Sitting 122.00 mm[Hg] - Sitting 97.00 Ear 95.00 % 60.00/ min 18.00/min 76022 216 72239 9 66.00 mm[Hg] - Sitting 164.00 mm[Hg] - Sitting 98.70 Ear 95.00 % 71.00/ min 18.00/min 24339 216 34355 1 170.00 NI 04185 216 17715 9 170.00 NI 43955 217 43577 4 169.00 NI 10060 217 51781 7 97.30 Ear 93.00 % 84.00/ min 20.00/min 33724 217 01594 9 63.00 mm[Hg] - Sitting 134.00 mm[Hg] - Sitting 86577 218 64552 5 168.00 NI 63484 229 36375 6 73.00 mm[Hg] - Sitting 154.00 mm[Hg] - Sitting 59 NI 162.60 NI 99.20 Ear 97.00 % 67.00/ min 20.00/min 28160 301 01701 8 01618 301 43522 4 81144 301 45948 5 161.00 NI 76736 301 25924 3 73.00 mm[Hg] - Sitting 154.00 mm[Hg] - Sitting 99.20 Oral 67.00/ min 20.00/min 53741 301 18307 9 51.00 mm[Hg] - Sitting 137.00 mm[Hg] - Sitting 97.70 Ear 98.00 % 75.00/ min 22.00/min 63084 301 45010 0 99790 302 32533 8 70.00 mm[Hg] - Sitting 126.00 mm[Hg] - Sitting 98.60 Oral 91.00 % 91.00/ min 20.00/min 64650 303 85764 7 90191 303 85894 1 67.00 mm[Hg] - Sitting 116.00 mm[Hg] - Sitting 98.90 Ear 96.00 % 65.00/ min 18.00/min 05295 304 30330 8 62.00 mm[Hg] - Sitting 129.00 mm[Hg] - Sitting 96.80 Ear 92.00 % 81.00/ min 18.00/min 70856 305 80150 1 58.00 mm[Hg] - Sitting 122.00 mm[Hg] - Sitting 99.50 Ear 73.00/ min 08527 305 11531 9 162.00 NI 01977 305 48165 3 56.00 mm[Hg] - Sitting 132.00 mm[Hg] - Sitting 100.00 Ear 95.00 % 64.00/ min 20.00/min 78435 306 41549 0 56.00 mm[Hg] - Sitting 116.00 mm[Hg] - Sitting 99.00 Ear 96.00 % 66.00/ min 22.00/min 79396 307 90225 0 65.00 mm[Hg] - Sitting 147.00 mm[Hg] - Sitting 98.90 Ear 91.00 % 61.00/ min 20.00/min Immunizations Vaccine Date Status COVID-19 09/15/2020 Completed COVID-19 10/20/2020 Completed COVID-19 06/01/2021 Completed (PCV13)Pneumococcal 12/01/2014 Completed (PCV20)Pneumococcal 12/01/2013 Completed
--- OUTSIDE RECORDS SUMMARY | 2023-10-13 18:23 | External Medical Summary | Summary of Care ---
Author Name Unknown Organization [facility] Address [address] [place] [address] Phone [phone] Care Team Providers Care Metal Tube Cutter Name Role Phone Tameka Hooper MD Primary Care Prov ider Reason for Visit * Reason Onset Date Comments Residential Visit - Admission 09/06/2023 Encounter Details Date Type Department Care Team (Latest Contact Info) Description 09/06/2023 8:30 AM EST Residential Visit [address] [place] [address] Ephraim Burgess MD [address] [place] [address] [place] [phone] Influenza A*; Chronic hypoxemic respiratory failure (HCC); Nausea and vomiting, unspecified vomiting type; Bilateral pleural effusion; COPD, group B, by GOLD 2017 classification (HCC); Interstitial lung disease (HCC); Paroxysmal atrial fibrillation (HCC); Peristomal hernia; Colostomy status (HCC); Hypertensive kidney disease with stage 3b chronic kidney disease (HCC); IBD (inflammatory bowel disease); Gastrointestinal hemorrhage associated with gastric ulcer; 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HCC) Allergies Active Allergy Reactions Criticality Noted Date Comments Amoxicillin Rash 02/07/2020 Bactrim Rash 12/15/2011 Ciprofloxacin Rash 12/15/2011 Diltiazem Rash 05/29/2019 Piroxicam Rash 12/15/2011 Cephalexin Rash 12/15/2011 Meloxicam Rash 05/29/2019 Other reaction(s): Other Cilostazol Rash,Unknown 12/15/2011 Sulfamethoxazole High 01/19/2023 Other Reaction(s): Rash Trimethoprim High 01/19/2023 Other Reaction(s): Rash documented as of this encounter (statuses as of 09/06/2023) Medications Medication Sig Dispensed Refills Start Date [...] 4 Active Budesonide 0.25 MG/2ML Inhalation Suspension (Pulmicort)Indica [...] 4 Active Furosemide 20 MG Oral Tablet (Lasix)Indication [...] tab daily 100 Tablet 5 4 Active Verapamil HCl ER 120 MG Oral Tablet Extended Release (Isoptin SR) Take 1 Tablet by mouth in the morning. 0 4 Active Oseltamivir Phosphate 30 MG Oral Capsule (Tamiflu) Take 1 Capsule by mouth in the morning and 1 Capsule before bedtime. 0 4 09/06/19 24 Discontinued documented as of this encounter (statuses as of 09/06/2023) Active Problems Problem Noted Date Diagnosed Date [...] as of this encounter (statuses as of 09/06/2023) Resolved Problems Problem Noted Date Diagnosed Date [...] as of this encounter (statuses as of 09/06/2023) Immunizations Name Administration Dates Next Due COVID-19 [...] Progress Notes * Ephraim Burgess MD - 09/06/2023 11:38 AM EST ADMISSION HISTORY and PHYSICAL TRANSITION EVENT: Type: SNF admission Date: August Code Status: Full Code Name: Eliazar Beaulieu Date of : 1940 This note pertains to care provided at [facility]. Please see facility medical record for original note. This note is not to be edited or [facility]ended [facility]. Editing or addending needs to occur in the facilities medical record. S: Eliazar Beaulieu had been admitted to [facility] from [facility] for PT and OT. Recently admitted to [facility] on08/28/23 because of acute on chronic respiratory failure due to influenza A and COPD and was transferred here and admitted on 08/31/2023. Patient of Dr. Mao known to facility from recent admission for PT/OT following hospitalization with upper GI bleed, 2-3 degree heart block with PMH of COPDon chronic oxygen, FRANCIS noncompliant with CPAP, recent cessation of smoking, PAF on Xarelto, PVD, hypertension with stage 3b CKD, dyslipidemia, parastomal hernia, IBD, s/p colostomy who presented to ED with progressive shortness of breath and lightheadedness. Patient did admit to running out of lasix and furosemide about 4 days prior to admission and still not using CPAP. She had returned home on 08/20/23 from [facility] for her rehab stay. In the [...] and plans to return to her home. Results for orders placed or performed in [...] mg/dL Calcium 8.5 8.4 - 10.2 mg/dL CBC Result Value Ref Range WBC 11.20 [...] MPV 9.7 6.6 - 11.1 fL DIFFERENTIAL, TECHNOLOGIST REVIEW Result Value Ref Range WBC 11.20 (H) 4.00 - 10.80 K/uL Neutrophils % 63.0 40.0 - 75.0 % Lymphocytes % 27.0 18.0 - 42.0 % Monocytes % 9.0 1.0 - 11.0 % Metamyelocytes % 1.0 (H) <=0.0 % Absolute Neutrophils 7.06 1.80 - 7.70 K/uL Absolute Lymphocytes 3.02 1.00 - 4.80 K/uL Absolute Monocytes 1.01 0.00 - 1.10 K/uL Absolute Metamyelocytes 0.11 (H) <=0.00 K/uL nRBCs Past Medical History: Patient Active Problem List Diagnosis Code 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[facility]) G47.33, J44.9 Macular degeneration H35.30 S/P bilateral cataract extraction Z98.41, Z98.42 Colostomy status ([facility]) Z93.3 Paroxysmal atrial fibrillation ([facility]) I48.0 H/O resection of large bowel Z90.49 Diverticulosis of large intestine without hemorrhage K57.30 Mixed hyperlipidemia E78.2 Tobacco use disorder F17.200 Chronic bilateral low back pain without sciatica M54.50, G89.29 DDD (degenerative disc disease), lumbar M51.36 Stage 3b chronic kidney disease N18.32 Senile osteoporosis M81.0 Major depressive disorder with single episode, in full remission ([facility]) F32.5 Hypoparathyroidism ([facility]) E20.9 Chronic hypoxemic respiratory failure ([facility]) J96.11 History of healed osteoporosis fracture Z87.310 Essential (primary) hypertension I10 COPD, group B, by GOLD 2017 classification ([facility]) J44.9 Hypertensive kidney disease with stage 3b chronic kidney disease ([facility]) I12.9, N18.32 Other specified peripheral vascular diseases ([facility]) I73.89 Hx of actinic keratosis Z87.2 IBD (inflammatory bowel disease) K52.9 Gastrointestinal hemorrhage associated with gastric ulcer K25.4 Schatzki's ring of distal esophagus K22.2 Hiatal hernia K44.9 Full code status Z78.9 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 ([facility]) K51.40 Nephrolithiasis N20.0 Peristomal hernia K46.9 Bilateral pleural effusion J90 Interstitial lung disease ([facility]) J84.9 Current Outpatient Medications Medication Sig Dispense Refill Verapamil HCl ER 120 MG Oral Tablet Extended Release (Isoptin SR) Take 1 Tablet by mouth in the morning. oxygen IN GAS Use 3 L/min(Oxygen) as [...] 1 TABLET BY MOUTH EVERY DAY WITH [id number] Tablet 1 Fish Oil 500 MG Oral [...] takes 1/2 tab daily 100 Tablet 5 No current facility-administered medications for this visit. Review of patient's allergies indicates: Allergen Reactions Sulfamethoxazole Other Reaction(s): Rash Trimethoprim Other Reaction(s): Rash Amoxicillin Rash Bactrim Rash Ciprofloxacin Rash Diltiazem Rash Feldene [Piroxicam] Rash Keflex [Cephalexin] Rash Meloxicam Rash Other reaction(s): Other Pletal [Cilostazol] Rash and Unknown Social History Tobacco Use Smoking status: Every Day Current [...] performed by Gasper Kim DO at [facility] COLONOSCOPY, DIAGNOSTIC (RECTUM) N/A 02/23/2022 [facility], Colonoscopy , Nodular mucosa in ascending & transverse / biopsies biopsies from the colonwere most consistent with inflammatory bowel disease / LENS EXTRACTION, PHACOFRAGMENTATION Bilateral 10/2016 Dr. Diego YAO/CUT OVIDUCT(S) 1974 PARTIAL REMOVAL OF COLON 12/06/2018 Diverticulitis REMOVE TONSILS & ADENOIDS, UNDER 14 age [age] UPPER GI ENDOSCOPY 07/26/2023 gastic ulcer/nonobstructing Schatzki ring/small HH/repeat 3 months/EGD/[facility] Family History Problem Relation Age of Onset Stroke Mother of a massive stroke Cancer Father decesased of pancreatic cancer Family Status Relation Status Mo Fa Son Alive Son Alive Review of Systems: Constitutional ROS: No change in weight, No fatigue, No sweats, or chills, and +weakness and low grade temperature of 99.8 last evening Eye ROS: No recent significant change in vision, No eye pain, redness, discharge, and +macular degeneration Ear ROS: No ear pain, No drainage, No tinnitus or vertigo, and No recent change in hearing Nose ROS: No history of frequent colds or sinusitis, No nasal stuffiness, and No significant epistaxis Mouth/Throat ROS: No bleeding gums, No thrush, or No sore throat Pulmonary ROS: +as per HPI Cardiovascular ROS: No chest pain, No shortness of breath, No orthopnea, No paroxysmal nocturnal dyspnea, No palpitations, No syncope, and +Atrial fibrillation and CHF Gastrointestinal ROS: No abdominal pain, No change in bowel habits, No hematemesis, No abdominal bloating or early satiety, No dysphagia, and +colostomy and nausea/vomiting starting this AM. H/o recent upper GI bleed from gastric ulcers Genito-Urinary Female ROS: No dysuria and No frequency Musculoskeletal/Extremities ROS: +OA Hematologic/Lymphatic ROS: No abnormal bleeding, No chills, No weight loss, and +anticoagulated and+anemia s/p recent GI bleed requiring iron infusion and transfusion Skin/Integumentary ROS: No rash Neurologic ROS: No headaches and No seizures Endocrine ROS: No heat intolerance, No cold intolerance, No thyroid trouble, No excessive thirst orurination, and No history of diabetes Psychiatric ROS: No anxiety, No psychosis, and +depression ADL skills: dependent Ambulates independently OBJECTIVE: PHYSICAL EXAM: I reviewed the most recent facilities vitals. Refer to vital signs flowsheet in correction chart.General: alert, no distress, chronically ill appearing, well nourished, and well developed Head: Normocephalic, No masses, lesions, tenderness or abnormalities Eye Exam: PERRLA, extraocular movements intact, conjunctiva are pink and non- injected, sclera clear Ears: External ears normal Nose: no mucosal erythema, no mucosal edema, no purulent discharge Oropharynx: no exudate, no erythema, lips, buccal mucosa, and tongue normal, and mucous membranes are moist Neck: supple, no adenopathy, no bruits Heart: no gallops and irregularly irregular Lungs: chest symmetric with normal AP diameter, no chest deformities noted, no chest wall tenderness, coarse sounds heard, +crackles in bases Abdomen: abdomen soft, non-tender, normal bowel sounds, and +colostomy intact Extremities: no edema, no clubbing, no cyanosis Neuro Exam: alert & oriented x 3 with fluent speech, no focal motor/sensory deficits, gait normal ASSESSMENT: Influenza A (Primary)--completed Tamiflu. Appears improved. Chronic hypoxemic respiratory failure (HCC)--continue continuous oxygen. Nausea and vomiting, unspecified vomiting type--suspect viral gastroenteritis, which is in community and possibly in the facility. Start Zofran as needed. Monitor closely due to peristomal hernia. Not having abdominal pain and her colostomy is functioning normally. Check CBC w/diff and CMP Bilateral pleural effusion--continue furosemide 20 mg daily. COPD, group B, by GOLD 2017 classification ([facility])--continue oxygen, Anoro, Budesonide, and albuterol/Duoneb PRN. Just quit smoking. Completed prednisone taper. Interstitial lung disease (HCC)--seen on CXR. Continue oxygen as above. Paroxysmal atrial fibrillation (HCC)--continue verapamil 120 mg daily and Xarelto 15 mg daily. Peristomal hernia--to consider outpatient colorectal or hernia specialist referral when improved. Colostomy status ([facility])--stable Hypertensive kidney disease with stage 3b chronic kidney disease (HCC)--continue verapamil 120 mg daily, and lisinopril 10 mg daily. IBD (inflammatory bowel disease)--continue mesalamine and GI follow-up. Gastrointestinal hemorrhage associated with gastric ulcer--continue protonix 40 mg daily. Monitor H&H. Remains anemic. Had transfusion of 1 unit PRBCs and iron infusion in July at time of bleeding. 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HCC) PLAN: 1. Continue present medication(s): Begin medication(s): Zofran as needed for nausea, vomiting. Suspect viral gastroenteritis but monitor closely due to her peristomal hernia. Schedule labs: CBC and CMP 09/08/23 2. Admission orders, medications, labs, hospital records and care plan reviewed. 3. Agricultural Labor Camp Manager consult, Physical Therapy, Occupational Therapy, and Speech Therapy ordered. 4. Care plan reviewed. 5. Advance Directives were discussed: Full Code 6. Senior Living Home Treatment Given: n/a Electronically signed by: Ephraim Burgess MD I spent a total of 52 minutes coordinating, documenting, and providing care for this patient excluding time spent in the performance of separately billed services or time spent by another provider/QHP. documented in this encounter Plan of Treatment Upcoming Encounters Date Type Department Care Team (Late st Contact Info) Description 10/23/2023 2:30 PM EDT Office Visit Rheumatology [address] [place] [phone] Jessica Stubbs CRNP [address] [place] [address] [place] [address] 10/31/2023 1:00 PM EDT Cardiac Studies Cardiac Studies, [facility] [address] [place] [address] 11/01/2023 9:30 AM EDT Procedure Only Endoscopy, [facility] [address] [place] [address] Gasper Kim, DO [address] [place] [address] 11/01/2023 10:00 AM EDT Procedure Only Endoscopy, [facility] [address] [place] [address] Gasper Kim, DO [address] [place] [address] 11/14/2023 12:20 PM EDT Office Visit Gastroenterology, [facility] [address] [place] [address] Gasper Kim, DO [address] [place] [address] 11/23/2023 3:00 PM EDT Office Visit Family Medicine [address] [place] [phone] Betsey Cramer CRNP [address] [place] [address] [place] [address] 03/26/2024 1:30 PM EDT Office Visit Nephrology [address] [place] [address] Ayana Anna PA-C [address] [place] [address] 05/01/2024 3:00 PM EDT Office Visit Dermatology [address] [place] [address] Anya Pratt PA-C [address] [place] [address] [place] [address] Health Maintenance Due Date Last Done Comments DISCUSS TOBACCO CESSATION (REFER TO SMARTSET #[id number]) 1940 COVID-19 Vaccine ( season) 2023 06/01/2021, 10/20/2020, 09/15/2020 Influenza Vaccine (FLU shot) (#1) 2023 Albumin/Creatinine Ratio 08/15/2023 08/15/2022, 01/31 CKD PHOS USE SMARTSET [id number] 12/28/202312/02, 04/26/2022, 11/23/2021, Additional history exists GFR 03/03/2024 09/01/2023, 08/03, 02/14/2023, Additional history exists DXA Scan 08/01/2024 08/01/2022, 07/05, 07/07/2020, Additional history exists Depression Screening 08/21/2024 08/21/2023 O2 ASSESSMENT COMPLETED IN PAST YEAR FOR COPD 08/24/2024 08/24/2023 CKD HGB USE SMARTSET [id number] 08/31/202408/31, 09/01/2023, 08/16/2023, Additional history exists COLONOSCOPY-EVERY 5 YRS AGES 18-100 07/31/2028 07/31/2023, 02/23/2022, 02/23/2022, Additional history exists DTaP,Tdap,and Td Vaccines (2 - Td or Tdap) 08/07/2030 08/07/2020 (Not indicated), 09/01/1998 Pneumococcal Vaccine: 65+ Years Completed 05/16/2016, 12/01/2014, 12/01/2013, Additional history exists VITAMIN D LEVEL ONCE IN A LIFETIME-USE SMARTSET# [id number] Completed 12/27/2022, 08/12/2022, 03/15/2022, Additional history exists [...] as of this encounter Visit Diagnoses Diagnosis Influenza A- Primary Influenza with other respiratory manifestations Chronic hypoxemic respiratory failure (HCC) Chronic respiratory failure Nausea and vomiting, unspecified vomiting type Bilateral pleural effusion Unspecified pleural effusion COPD, group B, by GOLD 2017 classification (HCC) Interstitial lung disease (HCC) Postinflammatory pulmonary fibrosis Paroxysmal atrial fibrillation (HCC) Atrial fibrillation Peristomal hernia Hernia of unspecified site of abdominal cavity without mention of obstruction or gangrene Colostomy status (HCC) Colostomy status Hypertensive kidney disease with stage 3b chronic kidney disease (HCC) IBD (inflammatory bowel disease) Other and unspecified noninfectious gastroenteritis and colitis Gastrointestinal hemorrhage associated with gastric ulcer 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HCC) documented in this encounter Advance Directives Healthcare Agents on File Name Relationship Healthcare Agent Relationshi p Communication Juan Daniel Beaulieu Adult Child Health Care Repr esentative (appointed verbally by patient or by statute hierarchy) Care Teams Metal Tube Cutter Relationship Specialty Start Date End Date Tameka Hooper MD [address] [place] [address] [place] [address] PCP - General Family Medicine 05/29/19 documented as of this encounter
--- OUTSIDE RECORDS SUMMARY | 2023-10-13 18:23 | External Medical Summary | Summary of Care ---
Author Name Unknown Organization [facility] Address [address] [place] [address] Phone [phone] Care Team Providers Care Business Affairs Manager Name Role Phone Tameka Hooper MD Primary Care Prov ider Encounter Details Date Type Department Care Team (Late st Contact Info) Description 09/06/2023 Orders Only Lab Mobile Phlebotomy [facility] [address] [place] [address] Ephraim Buregss MD [address] [place] [address] [place] [address] Dysuria* Allergies Active Allergy Reactions Criticality Noted Date [...] Team (Late st Contact Info) Description 09/06/2023 8:00 AM EST Laboratory Lab Mobile Phlebotomy [address] [place] [address] Dysuria 09/06/2023 8:30 AM EST Long-Term Visit [address] [place] [address] Ephraim Burgess MD [address] [place] [address] [place] [address] 09/13/2023 9:00 AM EDT Office Visit General Surgery, [facility] [address] [place] [address] Rik Saez MD 132 [place] [address] 10/23/2023 2:30 PM EDT Office Visit Rheumatology [address] [place] [phone] Jessica Stubbs, [place] [facility] [facility] [place] [address] 10/31/2023 1:00 PM EDT Cardiac Studies Cardiac Studies, [facility] [address] [place], [place] [address] 11/01/2023 9:30 AM EDT Procedure Only Endoscopy, [facility] [address] [place], [place] [address] Gasper Kim, DO [address] [place], [place] [address] 11/01/2023 10:00 AM EDT Procedure Only Endoscopy, [facility] [address] [place], [place] [address] Gasper Kim, DO [address] [place], [place] [address] 11/14/2023 12:20 PM EDT Office Visit Gastroenterology, [facility] [address] [place], [place] [address] Gasper Kim, DO [address] [place], [place] [address] 11/23/2023 3:00 PM EDT Office Visit Family Medicine [address] [place] [phone] Betsey Cramer [address] [place] [address] 03/26/2024 1:30 PM EDT Office Visit Nephrology [address] [place] [address] Ayana Anna PA-C [address] [place] [address] 05/01/2024 3:00 PM EDT Office Visit Dermatology [address] [place] [address] Anya Pratt PA-C [address] [place] [address] [place] [address] Scheduled Orders Name Type Priority Associated Diagnoses Orde r Schedule CULTURE, URINE, QUANTITATIVE Lab Routine Dysuria Expected: 09/06/2023, Expires: 09/05/2024 Health Maintenance Due Date Last Done Comments DISCUSS TOBACCO CESSATION (REFER TO SMARTSET #3291) 1942 COVID-19 Vaccine ( season) 2023 06/01/2021, 10/20/2020, 09/15/2020 Influenza Vaccine (FLU shot) (#1) 2023 Albumin/Creatinine Ratio 08/15/2023 08/15/2022, 01/31 CKD PHOS USE SMARTSET 35643 12/28/202312/02, 04/26/2022, 11/23/2021, Additional history exists GFR 03/03/2024 09/01/2023, 08/03, 02/14/2023, Additional history exists DXA Scan 08/01/2024 08/01/2022, 07/05, 07/07/2020, Additional history exists Depression Screening 08/21/2024 08/21/2023 O2 ASSESSMENT COMPLETED IN PAST YEAR FOR COPD 08/24/2024 08/24/2023 CKD HGB USE SMARTSET 69742 08/31/202408/31, 09/01/2023, 08/16/2023, Additional history exists COLONOSCOPY-EVERY 5 YRS AGES 18-100 07/31/2028 07/31/2023, 02/23/2022, 02/23/2022, Additional history exists DTaP,Tdap,and Td Vaccines (2 - Td or Tdap) 08/07/2030 08/07/2020 (Not indicated), 09/01/1998 Pneumococcal Vaccine: 65+ Years Completed 05/16/2016, 12/01/2014, 12/01/2013, Additional history exists VITAMIN D LEVEL ONCE IN A LIFETIME-USE SMARTSET# 65042 Completed 12/27/2022, 08/12/2022, 03/15/2022, Additional history exists [...] as of this encounter Visit Diagnoses Diagnosis Dysuria Dysuria- Primary documented in this encounter Advance Directives Healthcare Agents on File Name Relationship Healthcare Agent Relationshi p Communication Juan Daniel Beaulieu Adult Child Health Care Repr esentative (appointed verbally by patient or by statute hierarchy) Care Teams Business Affairs Manager Relationship Specialty Start Date End Date Tameka Hooper MD [address] [place] [address] [place] [address] PCP - General Family Medicine 05/29/19 documented as of this encounter
--- OUTSIDE RECORDS SUMMARY | 2023-10-13 18:23 | External Medical Summary ---
Author Name Unknown Address Unknown Organization [facility] [address] [place] [address] Laboratory Report Ordering Provider Test Date Status LAVINIA ESCOBAR 09/01/2023 05:48:00 Final Observation Date Value Abnormality Reference (Units ) Status SYNC LEUKOCYTES IN BLOOD BY AUTOMATED COUNT 09/01/2023 05:48:00 11.20 Above high normal 4.00-10.80 (K/uL) Final Neutrophils/100 leukocytes in Blood by Manual count 09/01/2023 05:48:00 63.0 40.0-75.0 (%) Final Lymphocytes/100 leukocytes in Blood by Manual count 09/01/2023 05:48:00 27.0 18.0-42.0 (%) Final Monocytes/100 leukocytes in Blood by Manual count 09/01/2023 05:48:00 9.0 1.0-11.0 (%) Final Metamyelocytes/100 leukocytes in Blood by Manual count 09/01/2023 05:48:00 1.0 Above high normal <=0.0 (%) Final Neutrophils [#/volume] in Blood by Manual count 09/01/2023 05:48:00 7.06 1.80-7.70 (K/uL) Final Lymphocytes [#/volume] in Blood by Manual count 09/01/2023 05:48:00 3.02 1.00-4.80 (K/uL) Final Monocytes [#/volume] in Blood by Manual count 09/01/2023 05:48:00 1.01 0.00-1.10 (K/uL) Final Metamyelocytes [#/volume] in Blood by Manual count 09/01/2023 05:48:00 0.11 Above high normal <=0.00 (K/uL) Final Nucleated erythrocytes/100 leukocytes [Ratio] in Blood by Automated count 09/01/2023 05:48:00 Final Performing Location [facility] [address] [place] [address]
--- OUTSIDE RECORDS SUMMARY | 2023-10-13 18:24 | External Medical Summary | Summary of Care ---
Author Name Unknown Organization [facility] Address [address] [place] [place] [place] [address] Phone [phone] Care Team Providers Care Cover Making Machine Operator Name Role Phone Tameka Hooper MD Primary Care Prov ider Reason for Visit * Reason Onset Date Comments Home Health 08/28/2023 case management 08/28/2023 Encounter Details Date Type Department Care Team (Late st Contact Info) Description 08/28/2023 Telephone Family Medicine [address] [place] [phone] Sameer Mckinnon MD [address] [place] [address] [place] [address] Home Health; case management [...] Olivier RN - 08/28/2023 3:52 PM EST [facility] trigger on post discharge IVR call . [...] Office Visit [facility] Disorders Ctr [facility] [place] 132 [facility] [place] [phone] Lynn Busby DO 132 [facility] [place] [address] 10/23/2023 2:30 PM EDT Office Visit Rheumatology [address] [place] [phone] Jessica Stubbs CRNP [address] [place] [address] [place] [address] 10/31/2023 1:00 PM EDT Cardiac Studies Cardiac Studies, [facility] [place] [facility] [place] [address] 11/01/2023 9:30 AM EDT [facility] [address] [place], [place] [address] Gasper Kim, DO [address] [place] [address] 11/01/2023 10:00 AM EDT Procedure Only Endoscopy, [facility] [address] [place], [place] [address] Gasper Kim, DO [address] [place], [place] [address] 11/14/2023 12:20 PM EDT Office Visit Gastroenterology, [facility] [address] [place], [place] [address] Gasper Kim, DO [address] [place], [place] [address] 11/23/2023 3:00 PM EDT Office Visit Family Medicine [address] [place] [phone] Betsey Cramer [address] [place] [address] 03/26/2024 1:30 PM EDT Office Visit Nephrology [address] [place] [address] ZemaAyana hurtado PA-C [address] [place] [address] 05/01/2024 3:00 PM EDT Office Visit Dermatology [address] [place] [address] Anya Pratt PA-C [address] [place] [address] [place] [address] Health Maintenance Due Date Last Done Comments DISCUSS TOBACCO CESSATION (REFER TO SMARTSET #1831) 1940 COVID-19 Vaccine (2022-24 season) 2023 06/01/2021, 10/20/2020, 09/15/2020 Influenza Vaccine (FLU shot) (#1) 2023 Albumin/Creatinine Ratio 08/15/2023 08/15/2022, 01/31 CKD PHOS USE SMARTSET 12012 12/28/202312/02, 04/26/2022, 11/23/2021, Additional history exists GFR 02/12/2024 08/14/2023, 01/31, 12/27/2022, Additional history exists DXA Scan 08/01/2024 08/01/2022, 07/05, 07/07/2020, Additional history exists CKD HGB USE SMARTSET 28290 08/16/202408/16, 08/14/2023, 08/14/2023, Additional history exists Depression [...] D LEVEL ONCE IN A LIFETIME-USE SMARTSET# 95898 Completed 12/27/2022, 08/12/2022, 03/15/2022, Additional history exists [...] patient or by statute hierarchy) Care Teams Cover Making Machine Operator Relationship Specialty Start Date End Date Tameka Hooper MD [address] [place] [address] [place] [address] PCP - General Family Medicine 05/29/19 documented as of this encounter
--- OUTSIDE RECORDS SUMMARY | 2023-10-13 18:24 | External Medical Summary | Summary of Care ---
Author Name Unknown Organization [facility] Address [address] [facility] [place] [address] Phone [phone] Care Team Providers Care Engineering Technical Specialist Name Role Phone Tameka Hooper MD Primary Care Prov ider Reason for Visit * Reason Onset Date Comments Home Health 08/28/2023 case management 08/28/2023 Encounter Details Date Type Department Care Team (Late st Contact Info) Description 08/28/2023 Telephone Family Medicine [address] [place] [address] Sameer Mckinnon MD [address] [place] [address] [place] [address] Home Health; case management [...] Olivier RN - 08/28/2023 3:52 PM EST [facility] trigger on post discharge IVR call . [...] no. Continues to use her home oxygen 24/7 at 3 LPM. Reports taking meds as [...] PM EST Office Visit Sleep Disorders Ctr [facility] [address] [place] [phone] Lynn Busby, DO [address] [place] [address] 10/23/2023 2:30 PM EDT Office Visit Rheumatology [address] [place] [phone] Jessica Stubbs CRNP [address] [facility] [place] [address] 10/31/2023 1:00 PM EDT Cardiac Studies Cardiac Studies, [facility] [address] [place] [address] 11/01/2023 9:30 AM EDT Procedure Only Endoscopy, [facility] [address] [place] [address] Gasper Kim, DO [address] [place] [address] 11/01/2023 10:00 AM EDT Procedure Only Endoscopy, [facility] [address] [place] [address] Gasper Kim, DO [address] [place] [address] 11/14/2023 12:20 PM EDT Office Visit Gastroenterology, [facility] [address] [place] [address] Gasper Kim, DO [address] [place] [address] 11/23/2023 3:00 PM EDT Office Visit Family Medicine [address] [place] [phone] Betsey Cramer CRNP [address] [place] [address] [place] [address] 03/26/2024 1:30 PM EDT Office Visit Nephrology [address] [place] [address] Ayana Anna PA-C [address] [place] [address] 05/01/2024 3:00 PM EDT Office Visit Dermatology [address] [place] [address] Anya Pratt PA-C [address] [place] [address] [place] [address] Health Maintenance Due Date Last Done Comments DISCUSS TOBACCO CESSATION (REFER TO SMARTSET #3291) 1942 COVID-19 Vaccine ( season) 2023 06/01/2021, 10/20/2020, 09/15/2020 Influenza Vaccine (FLU shot) (#1) 2023 Albumin/Creatinine Ratio 08/15/2023 08/15/2022, 01/31 CKD PHOS USE SMARTSET 33741 12/28/202312/02, 04/26/2022, 11/23/2021, Additional history exists GFR 02/12/2024 08/14/2023, 01/31, 12/27/2022, Additional history exists DXA Scan 08/01/2024 08/01/2022, 07/05, 07/07/2020, Additional history exists CKD HGB USE SMARTSET 18471 08/16/202408/16, 08/14/2023, 08/14/2023, Additional history exists Depression [...] D LEVEL ONCE IN A LIFETIME-USE SMARTSET# 21158 Completed 12/27/2022, 08/12/2022, 03/15/2022, Additional history exists [...] patient or by statute hierarchy) Care Teams Engineering Technical Specialist Relationship Specialty Start Date End Date Tameka Hooper MD [address] [place] [address] [place] [phone] PCP - General Family Medicine 05/29/19 documented as of this encounter
--- OUTSIDE RECORDS SUMMARY | 2023-10-13 18:24 | External Medical Summary | Summary of Care ---
Author Name Unknown Organization [facility] Address [address] [facility] [place] [address] Phone [phone] Care Team Providers Care Mortgage Field Inspector Name Role Phone Tameka Hooper MD Primary Care Prov ider Reason for Visit * Reason Onset Date Comments Home Health 08/28/2023 case management 08/28/2023 Encounter Details Date Type Department Care Team (Late st Contact Info) Description 08/28/2023 Telephone Family Medicine [address] [place] [address] Sameer Mckinnon MD [address] [place] [address] [place] [address] Home Health; case management [...] bowel disease) 08/11/2023 Gastrointestinal hemorrhage associated with aubire loretta ulcer 08/11/2023 Schatzki's ring of distal [...] Olivier RN - 08/28/2023 3:52 PM EST [facility] trigger on post discharge IVR call [...] PM EST Office Visit Sleep Disorders Ctr [facility] [address] [place] [phone] Lynn Busby DO 132 [place] [address] 10/23/2023 2:30 PM EDT Office Visit Rheumatology [address] [place] [phone] Jessica Stubbs CRNP [facility] [place] [address] 10/31/2023 1:00 PM EDT Cardiac Studies Cardiac Studies, [facility] [address] [place] [address] 11/01/2023 9:30 AM EDT Procedure Only Endoscopy, [facility] [address] [place], [place] [address] Gasper Kim, DO [address] [place] [address] 11/01/2023 10:00 AM EDT Procedure Only Endoscopy, [facility] [address] [place] [address] Gasper Kim, DO [address] [place], [place] [address] 11/14/2023 12:20 PM EDT Office Visit Gastroenterology, [facility] [address] [place] [address] Gasper Kim, DO [address] [place] [address] 11/23/2023 3:00 PM EDT Office Visit Family Medicine [address] [place] [phone] Betsey Cramer [address] [place] [address] 03/26/2024 1:30 PM EDT Office Visit Nephrology [address] [place] [address] ZeAyana ladd PA-C [address] [place] [address] 05/01/2024 3:00 PM EDT Office Visit Dermatology [address] [place] [address] Anya Pratt PA-C [address] [place] [address] [place] [address] Health Maintenance Due Date Last Done Comments DISCUSS TOBACCO CESSATION (REFER TO SMARTSET #3291) 1940 COVID-19 Vaccine ( season) 2023 06/01/2021, 10/20/2020, 09/15/2020 Influenza Vaccine (FLU shot) (#1) 2023 Albumin/Creatinine Ratio 08/15/2023 08/15/2022, 01/31 CKD PHOS USE SMARTSET 58498 12/28/202312/02, 04/26/2022, 11/23/2021, Additional history exists GFR 02/12/2024 08/14/2023, 01/31, 12/27/2022, Additional history exists DXA Scan 08/01/2024 08/01/2022, 07/05, 07/07/2020, Additional history exists CKD HGB USE SMARTSET 11173 08/16/202408/16, 08/14/2023, 08/14/2023, Additional history exists Depression [...] D LEVEL ONCE IN A LIFETIME-USE SMARTSET# 08216 Completed 12/27/2022, 08/12/2022, 03/15/2022, Additional history exists [...] patient or by statute hierarchy) Care Teams Mortgage Field Inspector Relationship Specialty Start Date End Date Tameka Hooper MD [address] [place] [address] [place] [phone] PCP - General Family Medicine 05/29/19 documented as of this encounter
[2023-10-13] MEDS: cefTRIAXone SODIUM 2,000 MG in DEXTROSE 5 % MINI-B 50 ML IV SCH (20:21)
[2023-10-13] MEDS: PANTOprazole 40 MG in SYRINGE 0 ML IV SCH (20:21)
[2023-10-13] MEDS: CALCIUM 600MG + VIT D 400 IU TAB PO SCH (20:21)
[2023-10-13 20:22] LABS: Hematocrit (blood only) 29.7 % (37.0-47.0)
--- OUTSIDE RECORDS SUMMARY | 2023-10-13 21:22 | External Medical Summary | Summary of Care ---
Author Name Unknown Organization [facility] Address [address] [place] [address] Phone [phone] Care Team Providers Care Manager Body Name Role Phone Tameka Hooper MD Primary Care Prov ider Reason for Visit * Reason Onset Date Comments Blood Pressure Problem 10/05/2023 Encounter Details Date Type Department Care Team (Late st Contact Info) Description 10/05/2023 Telephone Family Medicine [address] [phone] Tameka Hooper MD [address] [place], [place] [address] [address] Blood Pressure Problem Allergies Active Allergy [...] Miscellaneous Notes * Telephone Encounter - Tiffanie Wyatt LPN - 10/12/2023 1:56 PM EDT Concerns Liya JENNIFER, Calling from: [place] Report/Concerns of: Medication Related Symptoms: none Narrative: Liya calling in to follow up on BP issue: Liya asking for orders to be faxed for which medications to be held for her low BP and Parameterswhen to hold. [place] * Telephone Encounter - Puja Starr LPN [...] or concerning sx's patient should go to [facility] and Patient on the phone together and made aware of advise - agreeable Patient will check her BP every day and record it, then call in 1 week with the readings. documented in this encounter Plan of Treatment Upcoming Encounters Date Type Department Care Team (Latest Contact Info) Description 10/23/2023 2:30 PM EDT Office Visit Rheumatology [address] [place] [phone] Jessica Stubbs CRNP [address] [place] [address] [place], [place] [address] 10/26/2023 5:30 PM EDT [facility] [place] [address] [place] [address] Jodi Smallwood RN [address] [place] [address] 10/31/2023 11:20 AM EDT Office Visit Family [address] [phone] Tameka Hooper MD [address] [place] [address] [place] [address] 10/31/2023 1:00 PM EDT Cardiac Studies Cardiac Studies, [facility] 132 [facility] [place] [address] 11/13/2023 11:00 AM EDT [facility], [facility] [address] [facility] [place] [address] Derick Miner PA-C [address] [place] [address] 11/14/2023 1:30 PM EDT Office Visit General Surgery, [facility] 132 [facility] [place] [address] Latrice Hooks MD [address] [place] [address] 11/23/2023 3:00 PM EDT Office Visit [address] [phone] Betsey Cramer CRNP [address] [place] [address] [place] [address] 11/24/2023 8:35 AM EDT Hospital Encounter OR [facility], Operating Room, [facility] - 4th Floor [address] [place] [address] Joshua Orantes MD [address] [place] [address] 11/24/2023 8:35 AM EDT - 11/24/2023 9:50 AM EDT Surgery OR [facility], Operating Room, [facility] - 4th Floor [address] [place] [address] Joshua Orantes MD [address] [place] [address] COLONOSCOPY FLEXIBLE PROXIMAL DIAGNOSTIC 02/20/2024 3:40 PM EDT Office Visit Sleep Disorders Ctr [facility] [address] [place] [phone] Lynn Busby DO [address] [place] [address] 03/26/2024 1:30 PM EDT Office Visit Nephrology [address] [place] [address] Zemaitis, Ayana Kirkpatrick PA-C [address] [place] [address] 05/01/2024 3:00 PM EDT Office Visit Dermatology [address] [place] [address] Anya Pratt PA-C [address] [place] [address] [place] [address] Scheduled Procedures Name Priority Associated Diagnoses Date/Ti [...] SMARTSET #1146) 10/08/2023 CKD PHOS USE SMARTSET 77408 12/28/202312/02, 04/26/2022, 11/23/2021, Additional history exists Influenza Vaccine (FLU shot) (Season Ended) 2024 GFR 03/15/2024 09/13/2023, 08/31, 09/09/2023, Additional history exists DXA Scan 08/01/2024 08/01/2022, 07/05, 07/07/2020, Additional history exists Albumin/Creatinine Ratio 09/18/2024 024, 08/15/2022, 02/09/2021 CKD HGB USE SMARTSET 58004 09/18/202409/18, 09/11/2023, 09/08/2023, Additional history exists O2 [...] D LEVEL ONCE IN A LIFETIME-USE SMARTSET# 66186 Completed 09/19/2023, 12/27/2022, 08/12/2022, Additional history exists [...] patient or by statute hierarchy) Care Teams Manager Body Relationship Specialty Start Date End Date Tameka Hooper MD [address] [place] [address] [place] [address] PCP - General Family Medicine 05/29/19 documented as of this encounter
--- OUTSIDE RECORDS SUMMARY | 2023-10-13 21:22 | External Medical Summary | Summary of Care ---
Author Name Unknown Organization [facility] Address [address] [place] [address] Phone [phone] Care Team Providers Care Bullet Lubricant Mixer Name Role Phone Tameka Hooper MD Primary Care Prov ider Reason for Visit * Reason Onset Date Comments Encounter Created in Error 10/12/2023 Encounter Details Date Type Department Care Team (Late st Contact Info) Description 10/12/2023 Telephone Family Medicine [address] [phone] Tameka Hooper MD [address] [place] [address] [place] [address] Encounter Created in Error Allergies Active Allergy Reactions Criticality Noted Date [...] of colon without complication 08/16/19 24 09/19/2023 COPD, group B, by GOLD 2017 classification [...] 2:30 PM EDT Office Visit Rheumatology [address] [place] [phone] Jessica Stubbs CRNP [address] [place] [address] [place] [address] 10/26/2023 5:30 PM EDT Home Visit [facility] [address] [place] [address] Jodi Smallwood, STANISLAW [address] [place] [address] 10/31/2023 11:20 AM EDT Office Visit Family Medicine [address] [place] [phone] Tameka Hooper MD [address] [place] [address] [place] [address] 10/31/2023 1:00 PM EDT Cardiac Studies Cardiac Studies, [facility] [address] [place] [address] 11/13/2023 11:00 AM EDT [facility], [facility] [address] [place] [address] Derick Miner PA-C [address] [place] [address] 11/14/2023 1:30 PM EDT Office Visit General Surgery, [facility] [address] [place] [address] Latrice Hooks MD [address] [place] [address] 11/23/2023 3:00 PM EDT Office Visit Family [address] [place] [phone] Betsey Cramer [address] [place] [address] 11/24/2023 8:35 AM EDT Hospital Encounter OR GL, Operating Room, [facility] - 4th Floor [address] [place] [address] Joshua Orantes MD [address] [place] [address] 11/24/2023 8:35 AM EDT - 11/24/2023 9:50 AM EDT [facility], [facility] Floor [address] [place] [address] Joshua Orantes MD [address] [place] [address] COLONOSCOPY FLEXIBLE PROXIMAL DIAGNOSTIC 02/20/2024 3:40 PM EDT Office Visit [facility] Ctr [facility] [address] [place] [phone] Busby Lynn Valerio, [address] [place] [address] 03/26/2024 1:30 PM EDT Office Visit Nephrology [address] [place] [address] Zemaitis, Ayana Kirkpatrick PA-C [facility] [place] [address] 05/01/2024 3:00 PM EDT Office Visit Dermatology [address] [place] [address] Anya Pratt PA-C [address] [place] [address] [place] [address] Scheduled Procedures Name Priority Associated Diagnoses Date/Ti [...] SMARTSET #1146) 10/08/2023 CKD PHOS USE SMARTSET 61564 12/28/2023 06/12/2022, 04/26/2022, 11/23/2021, Additional history exists Influenza Vaccine (FLU shot) (Season Ended) 2024 GFR 03/15/2024 09/13/2023, 08/31, 09/09/2023, Additional history exists DXA Scan 08/01/2024 08/01/2022, 07/05, 07/07/2020, Additional history exists Albumin/Creatinine Ratio 09/18/2024 024, 08/15/2022, 02/09/2021 CKD HGB USE SMARTSET 41785 09/18/202409/18, 09/11/2023, 09/08/2023, Additional history exists O2 [...] D LEVEL ONCE IN A LIFETIME-USE SMARTSET# 27523 Completed 09/19/2023, 12/27/2022, 08/12/2022, Additional history exists [...] patient or by statute hierarchy) Care Teams Bullet Lubricant Mixer Relationship Specialty Start Date End Date Tameka Hooper MD [address] [place] [address] [place] [address] PCP - General Family Medicine 05/29/19 documented as of this encounter
--- OUTSIDE RECORDS SUMMARY | 2023-10-13 21:22 | External Medical Summary | Summary of Care ---
Author Name Unknown Organization [facility] Address [address] [place] [address] Phone [phone] Care Team Providers Care Printed Circuit Board Preassembler Name Role Phone Tameka Hooper MD Primary Care Prov ider Reason for Visit * Reason Onset Date Comments Blood Pressure Problem 10/05/2023 Encounter Details Date Type Department Care Team (Late st Contact Info) Description 10/05/2023 Telephone Family Medicine [address] [phone] Tameka Hooper MD [address] [place], [place] [address] [address] Blood Pressure Problem Allergies Active Allergy [...] Dewayne Therapy: No beta-dewayne secondary to unknown SEU Inhibitor/ARB Therapy: Lisinopril Diuretic therapy: Lasix SGLT2 [...] Telephone Encounter - Tameka Hooper MD - 10/12/2023 2:51 PM EDT Hold Lisinopril 10mg if BP < = 120/80 * Telephone Encounter - Tiffanie Wyatt LPN [...] 2:30 PM EDT Office Visit Rheumatology [address] [place] [phone] Jessica Stubbs CRNP [address] [facility] [place] [address] 10/26/2023 5:30 PM EDT [facility] Visit [facility] [address] [place] [address] Jodi Smallwood RN [address] [place] [address] 10/31/2023 11:20 AM EDT Office Visit Family Medicine [address] [place] [phone] Tameka Hooper MD [address] [place] [address] [place] [address] 10/31/2023 1:00 PM EDT Cardiac Studies Cardiac Studies, [facility] [address] [facility] [place] [address] 11/13/2023 11:00 AM EDT Home Visit [facility] [address] [place] [address] Derick Miner PA-C [address] [place] [address] 11/14/2023 1:30 PM EDT Office Visit General Surgery, [facility] [address] [place] [address] Latrice Hooks MD [address] [place] [address] 11/23/2023 3:00 PM EDT Office Visit Family Medicine [address] [place] [phone] Betsey Cramer [address] [place] [address] 11/24/2023 8:35 AM EDT Hospital Encounter OR GL, Operating Room, [facility] - 4th Floor [address] [place] [address] Joshua Orantes MD [address] [place] [address] 11/24/2023 8:35 AM EDT - 11/24/2023 9:50 AM EDT Surgery OR [facility], Operating Room, [facility] - 4th Floor [address] [place] [address] Joshua Orantes MD [address] [place] [address] COLONOSCOPY FLEXIBLE PROXIMAL DIAGNOSTIC 02/20/2024 3:40 PM EDT Office Visit [facility] Nikole Reardon [place] [address] [place] [phone] Lynn Busby DO [address] [place] [address] 03/26/2024 1:30 PM EDT Office Visit Nephrology [address] [place] [address] ZemaAyana hurtado PA-C [address] [place] [address] 05/01/2024 3:00 PM EDT Office Visit Dermatology [address] [place] [address] Anya Pratt PA-C [address] [place] [address] [place] [address] Scheduled Procedures Name Priority Associated Diagnoses Date/Ti [...] SMARTSET #[id number]) 10/08/2023 CKD PHOS USE SMARTSET 12068 12/28/202312/02, 04/26/2022, 11/23/2021, Additional history exists Influenza Vaccine (FLU shot) (Season Ended) 2024 GFR 03/15/2024 09/13/2023, 08/31, 09/09/2023, Additional history exists DXA Scan 08/01/2024 08/01/2022, 07/05, 07/07/2020, Additional history exists Albumin/Creatinine Ratio 09/18/2024 024, 08/15/2022, 02/09/2021 CKD HGB USE SMARTSET 16918 09/18/202409/18, 09/11/2023, 09/08/2023, Additional history exists O2 [...] D LEVEL ONCE IN A LIFETIME-USE SMARTSET# [id number] Completed 09/19/2023, 12/27/2022, 08/12/2022, Additional history exists [...] patient or by statute hierarchy) Care Teams Printed Circuit Board Preassembler Relationship Specialty Start Date End Date Tameka Hooper MD [address] [place] [address] [place] [id number] PCP - General Family Medicine 05/29/19 documented as of this encounter
--- NOTE | 2023-10-14 00:05 | Electrocardiogram Report ---
Test Reason : Blood Pressure : / mmHG Vent. Rate : 067 BPM Atrial Rate : 067 BPM P-R Int : 262 ms QRS Dur : 062 ms QT Int : 380 ms P-R-T Axes : 051 004 058 degrees QTc Int : 401 ms Sinus rhythm with 1st degree A-V block Anteroseptal infarct (cited on or before 29-JUL-2023) Abnormal ECG When compared with ECG of 28-AUG-2023 18:38, No significant change was found Confirmed by Kristian Pierce ([id number]) on 10/14/2023 12:05:37 AM Referred By: REFERRED SELF Confirmed By:Kristian Pierce
[2023-10-14] MEDS: ACETAMINOPHEN 325 MG TAB PO PRN (03:06)
[2023-10-14 07:12] LABS: Hematocrit (blood only) 25.9 % (37.0-47.0); Mean Corpuscular Hemoglobin 29.3 pg (25.0-34.0); Mean Corpuscular Hgb Conc 30.9 g/dL (32.0-36.0); Mean Corpuscular Volume 94.9 fL (80.0-100.0); Mean Platelet Volume 8.8 fL (9.4-12.4); Platelet Count 266 K/uL (130-400); RDW Coefficient of Variation 16.8 % (11.5-14.5); RDW Standard Deviation 56.2 fL (36.4-46.3); Red Blood Count 2.73 M/uL (4.20-5.40); White Blood Count 9.05 K/ul (4.8-10.8)
[2023-10-14 07:22] LABS: BUN Creatinine Ratio 14.5 (10-20); Calcium 8.3 mg/dl (8.6-10.3); Creatinine Clr Calc Pharmacy 23.7 ml/min; Est GFR (African American) 34.9 ml/min; Est GFR (Non-African American) 30.1 ml/min; Magnesium 2.1 mg/dl (1.7-2.4); Phosphorus 3.4 mg/dl (2.5-4.9); Potassium 3.9 mmol/L (3.5-5.1)
[2023-10-14 07:58] LABS: Prothrombin Time 11.4 Seconds (9.0-12.0)
--- NOTE | 2023-10-14 09:58 | Ultrasound Report ---
RENAL ULTRASOUND HISTORY: Acute kidney injury with urinary tract infection laverne, uti COMPARISON: CT 08/28/2023, 08/22/2020. FINDINGS: Right kidney: 10.1 cm. No hydronephrosis. Mild diffuse cortical thinning. Left kidney: 11.0 cm. Unchanged chronic mild left-sided hydronephrosis. Stable nonobstructing 10 mm c alculus of the mid pole left kidney. Mild diffuse cortical thinning. Bladder: Partial distention of the urinary bladder. The bilateral ureteral jets were identified. IMPRESSION: 1. 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 2. Left nephrolithiasis. 3. Mild cortical thinning of the kidneys. ACT 112: Negative or not required by law. Electronically signed by: Stephen Rapp M.D. 10/14/2023 9:56 AM
--- NOTE | 2023-10-14 10:34 | Hospitalist Progress Note ---
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 On 10/13/23, Hb dropped to 6.5, was 7.6 on admission the previous day Baseline Hb 8s Acute on chronic anemia Though patient has no obvious bleeding, considering her history of gastric ulcer from EGD in July 2023, GI was consulted. PPI changed to BID S/P 1 pRBC on 10/13/23 Post op Hb was 9, down to 8 this AM No obvious bleeding Continue NPO for now. Maintenance IVF Will follow-up GI Monitor hemoglobin and transfuse as needed to keep above 7. Home xarelto on hold LOPEZ on CKD stage III Baseline creatinine 1.7 presented with creatinine of 2 Cr is 1.59 today Continue to hold Lasix and lisinopril UTI UA suggestive of UTI Continue ceftriaxone Follow cultures Chronic hypoxic respiratory failure on 3 L oxygen History of COPD Obstructive sleep apnea Currently waiting for CPAP machine Will do CPAP nightly while in the hospital Continue home inhalers History of IBD suspected History of diverticulitis s/p resection On mesalamine Hypertension Holding lisinopril for now as above BP is normal Verapamil with holding parameters History of A-fib History of heart block s/p pacemaker Xarelto on hold as above GERD On Protonix DVT prophylaxis SCD for now. Xarelto on hold Disposition Med/telemetry Full code I spent a total of 40 minutes coordinating, documenting and providing care for this patient excluding time spent in performance of separately billed services Admission and Anticipated Discharge Date Admission Date: October 12, 2023 Subjective Patient seen and examined. Still reports some lightheadedness Reports chronic dry cough Denies any shortness of breath at rest or PND. Reports chronic shortness of breath with exertion. Uses oxygen at 3 L at home Denies diarrhea Denies any obvious bleeding. Denies hematuria, dysuria frequency Tele showed sinus rhythm Physical Exam Constitutional: + well hydrated; no acute distress Eyes: PERRL, conjunctivae normal, anicteric sclerae ENMT: external ear and nose normal, oropharynx normal Respiratory: normal respiratory effort; no respiratory distress Diminished breath sound lung base Cardiovascular: Rate/Rhythm: regular rate and regular rhythm S1 S2 Gastrointestinal (Abdomen): normal bowel sounds, soft, nontender, no hepatosplenomegaly LLE ostomy in situ Musculoskeletal: No pedal edema Neurologic: PERRL, EOMI, accommodation nl, no face palsy, no dysarthria Psychiatric: A+Ox3, euthymic affect Results & Data Results & Data Vital Signs (Past 12 Hours) Vital Signs Temp Pulse Pulse Resp BP Pulse Ox O2 Del Method 10/14/23 08:32 51 L 10/14/23 08:20 Nasal Cannula 10/14/23 08:03 36.7 C 66 18 127/67 93 Nasal Cannula 10/14/23 07:04 67 17 94 Nasal Cannula 10/14/23 03:00 36.7 C 84 18 132/70 94 Room Air 10/13/23 23:14 36.8 C 82 18 131/50 L 96 Room Air O2 Flow Rate 10/14/23 08:32 10/14/23 08:20 3 10/14/23 08:03 3 10/14/23 07:04 3 10/14/23 03:00 10/13/23 23:14 Laboratory Results Abnormal lab results 10/13/23 10/13/23 10/13/23 Range/Units 06:52 14:34 19:36 RBC (4.20-5.40) M/uL Hgb 9.0 L 9.0 L (12.0-16.0) g/dl Hct 29.0 L 29.7 L (37.0-47.0) % MCHC (32.0-36.0) g/dL RDW Std Deviation (36.4-46.3) fL RDW Coeff of Lynn (11.5-14.5) % MPV (9.4-12.4) fL Chloride (98-107) mmol/L Creatinine (0.6-1.2) mg/dl Calcium (8.6-10.3) mg/dl Crossmatch See Detail 10/14/23 Range/Units 06:46 RBC 2.73 L (4.20-5.40) M/uL Hgb 8.0 L (12.0-16.0) g/dl Hct 25.9 L (37.0-47.0) % MCHC 30.9 L (32.0-36.0) g/dL RDW Std Deviation 56.2 H (36.4-46.3) fL RDW Coeff of Lynn 16.8 H (11.5-14.5) % MPV 8.8 L (9.4-12.4) fL Chloride 111 H (98-107) mmol/L Creatinine 1.59 H (0.6-1.2) mg/dl Calcium 8.3 L (8.6-10.3) mg/dl Crossmatch
[2023-10-14 11:57] LABS: Hematocrit (blood only) 27.1 % (37.0-47.0); Hemoglobin 8.3 g/dl (12.0-16.0)
--- NOTE | 2023-10-14 14:22 | Gastroenterology Progress Note ---
Date of Service October 14, 2023 Assessment & Plan (1) Anemia: Plan: -No history or objective evidence of gi bleeding -Responded appropriatetly to transfusion -No plan for endoscopic eval -Advance Diet -BID PPI x 1 mo -Repeat EGD to be scheduled as outpt to follow up gastric ulcers Admission and Anticipated Discharge Date Admission Date: October 12, 2023 Subjective Feels much better, no bm's Physical Exam Constitutional: + well hydrated; no acute distress Eyes: PERRL, conjunctivae normal, anicteric sclerae ENMT: external ear and nose normal, oropharynx normal Respiratory: normal respiratory effort; no respiratory distress Diminished breath sound lung base Cardiovascular: Rate/Rhythm: regular rate and regular rhythm S1 S2 Gastrointestinal (Abdomen): normal bowel sounds, soft, nontender, no hepatosplenomegaly LLE ostomy in situ Musculoskeletal: No pedal edema Neurologic: PERRL, EOMI, accommodation nl, no face palsy, no dysarthria Psychiatric: A+Ox3, euthymic affect Results & Data Vital Signs (Past 12 Hours) Vital Signs Temp Pulse Pulse Resp BP Pulse Ox O2 Del Method 10/14/23 13:09 36.7 C 92 H 20 120/64 94 Nasal Cannula 10/14/23 08:32 51 L 10/14/23 08:20 Nasal Cannula 10/14/23 08:03 36.7 C 66 18 127/67 93 Nasal Cannula 10/14/23 07:04 67 17 94 Nasal Cannula 10/14/23 03:00 36.7 C 84 18 132/70 94 Room Air O2 Flow Rate 10/14/23 13:09 3 10/14/23 08:32 10/14/23 08:20 3 10/14/23 08:03 3 10/14/23 07:04 3 10/14/23 03:00 (1) Anemia Anemia type: unspecified type Qualified Code(s): D64.9 - Anemia, unspecified
[2023-10-14 20:40] LABS: Hematocrit (blood only) 29.9 % (37.0-47.0); Hemoglobin 9.2 g/dl (12.0-16.0)
[2023-10-15 08:17] LABS: Hemoglobin 8.3 g/dl (12.0-16.0); Mean Corpuscular Hemoglobin 29.2 pg (25.0-34.0); Mean Corpuscular Hgb Conc 30.7 g/dL (32.0-36.0); Mean Corpuscular Volume 95.1 fL (80.0-100.0); Mean Platelet Volume 8.7 fL (9.4-12.4); Platelet Count 279 K/uL (130-400); RDW Coefficient of Variation 16.4 % (11.5-14.5); Red Blood Count 2.84 M/uL (4.20-5.40); White Blood Count 8.79 K/ul (4.8-10.8)
[2023-10-15 08:31] LABS: Calcium 8.6 mg/dl (8.6-10.3); Creatinine Clr Calc Pharmacy 26.6 ml/min; Est GFR (African American) 39.7 ml/min; Est GFR (Non-African American) 34.3 ml/min; Potassium 3.9 mmol/L (3.5-5.1)
--- NOTE | 2023-10-15 11:36 | Hospitalist Progress Note ---
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 On 10/13/23, Hb dropped to 6.5, was 7.6 on admission the previous day Baseline Hb 8s Acute on chronic anemia Though patient has no obvious bleeding, considering her history of gastric ulcer from EGD in July 2023, GI was consulted. PPI changed to BID S/P 1 pRBC on 10/13/23 Hb stable in 8s No obvious bleeding Hemoccult negative GI eval noted. Continue PPI BID x 1 month. To follow up with GI outpt for EGD to monitor gastric ulcers Home xarelto resumed. Will monitor LOPEZ on CKD stage III Baseline creatinine 1.7 presented with creatinine of 2 Cr is 1.43 today Resume home lasix UTI UA suggestive of UTI Continue ceftriaxone Follow cultures Chronic hypoxic respiratory failure on 3 L oxygen History of COPD Obstructive sleep apnea Currently waiting for CPAP machine Will do CPAP nightly while in the hospital Continue home inhalers History of IBD suspected History of diverticulitis s/p resection On mesalamine Hypertension Continue to hold lisinopril for now in view of normal BP trend so far and lightheadedness on presentation. BP is normal Verapamil with holding parameters History of A-fib History of heart block s/p pacemaker On xarelto GERD On Protonix DVT prophylaxis Xarelto resumed as above Disposition Med/telemetry Full code PT/OT I spent a total of 40 minutes coordinating, documenting and providing care for this patient excluding time spent in performance of separately billed services Admission and Anticipated Discharge Date Admission Date: October 12, 2023 Subjective Patient seen and examined. Reports lightheadedness is much improved Sitting in chair Reports feeling better today Reports chronic dry cough Denies diarrhea Denies hematuria, dysuria frequency Physical Exam Constitutional: + well hydrated; no acute distress Eyes: PERRL, conjunctivae normal, anicteric sclerae ENMT: external ear and nose normal, oropharynx normal Respiratory: normal respiratory effort; no respiratory distress Diminished breath sounds Cardiovascular: Rate/Rhythm: regular rate and regular rhythm Gastrointestinal (Abdomen): normal bowel sounds, soft, nontender, no hepatosplenomegaly Musculoskeletal: No pedal edema Neurologic: PERRL, EOMI, accommodation nl, no face palsy, no dysarthria Psychiatric: A+Ox3, euthymic affect Results & Data Results & Data Vital Signs (Past 12 Hours) Vital Signs Temp Pulse Resp BP Pulse Ox O2 Del Method O2 Flow Rate 10/15/23 09:00 Nasal Cannula 3 10/15/23 08:10 36.6 C 65 18 125/70 93 Nasal Cannula 4 10/15/23 07:23 66 18 94 Nasal Cannula 3 10/15/23 03:42 36.9 C 60 16 130/66 96 Room Air Laboratory Results Abnormal lab results 10/14/23 10/14/23 10/15/23 Range/Units 11:45 20:24 07:51 RBC 2.84 L (4.20-5.40) M/uL Hgb 8.3 L 9.2 L 8.3 L (12.0-16.0) g/dl Hct 27.1 L 29.9 L 27.0 L (37.0-47.0) % MCHC 30.7 L (32.0-36.0) g/dL RDW Std Deviation 56.0 H (36.4-46.3) fL RDW Coeff of Lynn 16.4 H (11.5-14.5) % MPV 8.7 L (9.4-12.4) fL Chloride 110 H (98-107) mmol/L Creatinine 1.43 H (0.6-1.2) mg/dl Glucose 106 H (70-99(Fasting)) mg/dl
[2023-10-15] MEDS: RIVAROXABAN 15 MG TAB PO SCH (20:55)
[2023-10-16 06:59] LABS: Hematocrit (blood only) 27.2 % (37.0-47.0); Hemoglobin 8.2 g/dl (12.0-16.0); Mean Corpuscular Hemoglobin 29.3 pg (25.0-34.0); Mean Corpuscular Hgb Conc 30.1 g/dL (32.0-36.0); Mean Corpuscular Volume 97.1 fL (80.0-100.0); Platelet Count 275 K/uL (130-400); RDW Coefficient of Variation 16.1 % (11.5-14.5); RDW Standard Deviation 57.1 fL (36.4-46.3); White Blood Count 9.03 K/ul (4.8-10.8)
[2023-10-16 07:29] LABS: Calcium 8.5 mg/dl (8.6-10.3); Creatinine Clr Calc Pharmacy 24.2 ml/min; Est GFR (African American) 35.2 ml/min; Est GFR (Non-African American) 30.4 ml/min; Potassium 4.1 mmol/L (3.5-5.1)
[2023-10-16] MEDS: FUROSEMIDE 20 MG TAB PO SCH (08:18)
[2023-10-16] MEDS: PANTOprazole 40 MG TAB PO SCH (09:21)
--- NOTE | 2023-10-16 12:55 | Discharge Summary ---
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 Patient found to have LOPEZ and UTI. Patient states she is feeling lightheaded /dizziness for few weeks now. Currently no headache. Currently no runny nose. Has chronic cough. Denies any chest pain. Denies shortness of breath. Currently no nausea. No abdominal pain. States somewhat constipated. Denies any blood in the stools. She has had some burning micturition. Denies any hematuria. Ambulates without support. Currently resting comfortably. Past medical history. As mentioned above Past surgical history. Colonoscopy. Bilateral lens extraction. Ligation of oviduct. Partial removal of colon. Tonsillectomy and adenoidectomy. EGD. Social history. . Smokes 0.3 packs/day for 60 years. No alcohol use. No drug use. Family history. Father had pancreatic cancer. Mother had stroke. Admission Exam Per Admitting Provider General- Not in distress Head- atraumatic Eyes- PERRL. ENT- oropharynx clear Neck- supple, no JVD. Lungs- clear to auscultation no wheezing or crackles. Heart- regular rhythm; no murmur, no gallop. Abdomen- normal bowel sounds, soft, nontender, no distension. Extremities- no pretibial edema, no erythema seen Neuro- alert, oriented PERRL, no facial palsy; no dysarthria; obeys simple commands. Principal Diagnosis Acute kidney injury Acute on chronic anemia Discharge Exam Constitutional + well hydrated; no acute distress Eyes PERRL, conjunctivae normal, anicteric sclerae ENMT external ear and nose normal, oropharynx normal Respiratory normal respiratory effort; no respiratory distress Cardiovascular Rate/Rhythm: regular rate and regular rhythm S1 S2 Gastrointestinal (Abdomen) normal bowel sounds, soft, nontender, no hepatosplenomegaly LLQ ostomy in situ Musculoskeletal No pedal edema Neurologic PERRL, EOMI, accommodation nl, no face palsy, no dysarthria Psychiatric A+Ox3, euthymic affect Discharge Data Allergies Allergy/AdvReac Type Severity Reaction Status Date / Time amoxicillin Allergy Intermediate Rash Verified 10/12/23 20:55 cephalexin [From Keflex] Allergy Intermediate Rash Verified 10/12/23 20:55 cilostazol [From Pletal] Allergy Intermediate Rash Verified 10/12/23 20:55 ciprofloxacin [From Cipro] Allergy Intermediate Rash Verified 10/12/23 20:55 diltiazem Allergy Intermediate Rash Verified 10/12/23 20:55 felodipine Allergy Intermediate Rash Verified 10/12/23 20:55 meloxicam Allergy Intermediate Rash Verified 10/12/23 20:55 sulfamethoxazole Allergy Intermediate Rash Verified 10/12/23 20:55 [From Bactrim] trimethoprim [From Bactrim] Allergy Intermediate Rash Verified 10/12/23 20:55 Consultations 10/12/23 20:23 ED Decision to Admit Stat 10/13/23 08:55 Consult Gastroenterology Routine Ordered Studies 10/12/23 18:41 CT head/brain wo con Stat 10/14/23 US renal/blad retro comp Urgent Hospital Course (1) LOPEZ (acute kidney injury): 83-year-old female with past medical history significant for chronic hypoxemic respiratory failure on 3 L oxygen, history of COPD, history of obstructive sleep apnea states she was on CPAP for 15 years but the CPAP machine broke and waiting for the new CPAP machine, history of suspected IBD, history of diverticulitis and s/p resection of large bowel with colostomy, history of paroxysmal atrial fibrillation on Xarelto, 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 On 10/13/23, Hb dropped to 6.5, was 7.6 on admission the previous day Baseline Hb 8s Acute on chronic anemia Though patient has no obvious bleeding, considering her history of gastric ulcer from EGD in July 2023, GI was consulted. S/P 1 pRBC on 10/13/23 Hb stable in 8s No obvious bleeding Hemoccult negative GI evaluated and recommended PPI BID x 1 month and to follow up outpt for EGD to monitor gastric ulcers Home xarelto was resumed. No bleeding so far LOPEZ on CKD stage III Baseline creatinine 1.7 presented with creatinine of 2 LOPEZ resolved. Cr is 1.58 today UTI Had reported change in urine UA suggestive of UTI Cultures did not grow anything Was treated with ceftriaxone inpatient, switched to cefdinir on dc to complete treatment Chronic hypoxic respiratory failure on 3 L oxygen History of COPD Obstructive sleep apnea Currently waiting for CPAP machine Continue home inhalers History of IBD suspected History of diverticulitis s/p resection On mesalamine Hypertension Was reported to have hypotension at home Lisinopril was held on admission and due to LOPEZ BP has been normal in the past 3 days Lisinopril discontinued for now PCP to follow up History of A-fib History of heart block s/p pacemaker On xarelto Total Time Total Time Spent Total Time Spent (In Minutes): 35 Total Time Includes: Examination of the Patient, Discharge Planning and Medication Reconciliation Discharge Plan Discharge Items Patient Disposition: Home - Home Health Services Reason For Visit: Lightheadedness Discharge Diagnosis: Acute kidney injury Acute on chronic anemia Activity: Resume your previous activity Non-emergency contact: Primary Care Provider Call non-emergency contact if: you have any medication questions Follow-up/Referrals: Joshua Orantes MD [Physician] - (The GI office will contact you with instructions for you EGD/Colonoscopy that is scheduled for 11/24/23.) Tameka Mao MD [Primary Care Provider] - (Date & Time 10/19/2023 2:40 PM Provider Krishna Espana MD Department Family Medicine [facility] ) Diet: Heart Healthy Addtl Attending Provider Instructions: Mrs Beaulieu You were brought to the hospital due to low blood pressure and lightheadedness. You were evaluated and found to have acute kidney injury. Your blood count was also low and you got a unit of blood STOP TAKING LISINOPRIL FOR NOW Your pantoprazole was increased to twice a day for next 1 month You are being discharged on 2 more days of antibiotics for possible urinary tract infection. Please ensure follow up with your Family Doctor Please ensure follow up with Gastroenterology for possible endoscopy. It was a pleasure taking care of you Pending Studies at Discharge: No Stand-Alone Forms: My [facility] [employer], Smoking Cessation Medications and DC Order Prescriptions: New cefdinir 300 mg capsule 300 mg PO DAILY 2 Days Qty: 2 0RF Continued Anoro Ellipta 62.5-25 mcg/actuation blister with device 1 inh INH QAM Qty: 60 8RF budesonide 0.25 mg/2 mL suspension for nebulization 0.25 mg inhalation BID Qty: 60 8RF (DME) Auto Titrating CPAP Misc See Rx Instructions .MEDSUPPLY Qty: 1 0RF Rx Instructions: Auto PAP with 8-16 cm H20. Lifetime usage. G47.3 (DME) CPAP Supplies Misc See Rx Instructions .MEDSUPPLY Qty: 1 0RF Rx Instructions: CPAP supplies, mask, headgear, filters, tubing, water chamber. G47.33 guaifenesin [Mucinex] 600 mg tablet extended release 12hr 600 mg PO BID Qty: 60 3RF (DME) Portable Oxygen E0431 Misc See Rx Instructions .MEDSUPPLY Qty: 1 0RF Rx Instructions: Oxygen 2 liters continuous with portable concentrator. ASHLEY 99 ferrous sulfate 325 mg (65 mg iron) tablet 325 mg PO QAM escitalopram oxalate [Lexapro] 10 mg Tablet 10 mg PO QAM calcium carbonate-vitamin D3 [Calcium 500 + D] 500 mg(1,250mg) -400 unit Tablet 1 tab PO QPM PreserVision AREDS-2 [phone] Capsule 1 tab PO QAM mesalamine 1.2 gram tablet,delayed release (DR/EC) 3.6 g PO QAM cyclosporine [Restasis] 0.05 % dropperette 1 drp OPB BID ascorbic acid (vitamin C) [Vitamin C] 500 mg Tablet 500 mg PO QAM Xarelto 15 mg tablet 15 mg PO QPM Rx Instructions: PER [facility] MED LIST "ON HOLD 09/19/23" acetaminophen [Tylenol] 325 mg Tablet 325 mg PO Q6H PRN (Reason: PAIN/FEVER) solifenacin 5 mg tablet 5 mg PO QAM omega-3 fatty acids 500 mg Capsule 500 mg PO QAM ipratropium-albuterol 0.5 mg-3 mg(2.5 mg base)/3 mL solution for nebulization 3 ml INHALATION Q4H PRN (Reason: Wheezing) furosemide 20 mg tablet 20 mg PO QAM verapamil 120 mg tablet extended release 120 mg PO QAM Prolia 60 mg/mL Syringe 60 mg SUBCUT .[id number] albuterol sulfate [ProAir HFA] 90 mcg/actuation HFA aerosol inhaler 1 inh INH DIRECTED PRN (Reason: Shortness Of Breath) Changed pantoprazole 40 mg Tablet,Delayed Release (Dr/Ec) 40 mg PO BID Qty: 60 0RF Discontinued lisinopril 10 mg Tablet 10 mg PO QAM Qty: 30 0RF Discharge Orders: Discharge Order (Routine); Ordered 10/16/23 Ordered By: Yessenia Hernandez/Other Patient Handouts: Urinary Tract Infections in Women, UTIs Admission Data Admit Date/Time: 10/12/23 22:32 Attending Provider: Yessenia Fam I. Admit Provider: Josh Crouch Primary Care Provider: Tameka Mao Other Providers: Josh Crouch; Oziel Mojica; [facility]
[2023-10-16] MEDS ORDERED: RIVAROXABAN 15 MG TAB PO SCH (16:30)
== END 2023-10-16 16:34 | disposition home health service (06) | DRG 683 ==
LOC: ED 16:20 → 2N 22:32

== ENCOUNTER 2023-11-22 04:36 | Inpatient (IN) ==
--- NOTE | 2023-11-22 04:57 | Emergency Department Note ---
Impression & Plan SOB (shortness of breath), Anemia, Acute UTI, Lower back pain, Leukocytosis, Wheezing, CHF (congestive heart failure) ED Provider Note NAME: ANGELA BAILON AGE: 83 SEX: F : 1940 ARRIVES VIA: Ambulance INFORMANT: [Patient][EMS, nursing] ED PROVIDER(S): [Mauricio Carson MD] CHIEF COMPLAINT: Short of breath, back pain HISTORY OF PRESENT ILLNESS: The patient is an 83-year-old female presents to the ER with several complaints. She states that she has had several months of increasing shortness of breath and a dry cough. She also has noticed increasing leg edema. In the last few weeks, she has noticed some lower back discomfort. Her back pain seems to be worse in the last 4 days. There has been no fall, no trauma. She has not had a fever. The patient is concerned that she may have a bowel blockage or that her kidneys may be giving her difficulty. She has had issues with her kidneys in the past. The patient does have a colostomy. She has had decreased output lately. PMHx/PSHx/Social Hx: See Below PHYSICAL EXAM: GENERAL: Patient is in no acute distress. HEENT: No acute trauma, normocephalic atraumatic, mucous membranes moist, no nasal congestion. NECK: No stridor, no adenopathy, no meningismus, trachea is midline. LUNGS: Coarse breath sounds bilaterally with some scattered wheezes and crackles. She does have an increased respiratory rate HEART: Without murmurs gallops or rubs, regular rate and rhythm. Heart tones are quite distant. ABDOMEN: Soft, nontender, no peritonitis. EXTREMITIES: No cyanosis, full range of motion of all the joints without pain or difficulty. NEUROLOGIC: Oriented x 3, no acute motor or sensory deficits, no focal weakness. Moderate bilateral pedal edema. SKIN: No jaundice, no diaphoresis. DIFFERENTIAL DIAGNOSIS: Fluid overload, CHF, hydronephrosis, UTI, anemia, renal failure, electrolyte imbalance, fracture, among others. EMERGENCY DEPARTMENT PROCEDURES: MEDICAL DECISION MAKING: There is a moderate leukocytosis, this would be consistent with infection. The patient was anemic with a hemoglobin of around 8, this is a chronic issue for her. Platelet count was normal. INR was elevated at 1.4 likely from her Xarelto use. There was some renal insufficiency but this appears baseline looking back at previous testing. No electrolyte abnormality in need of emergent correction. No concerning liver enzyme elevation. ECG showed a sinus rhythm without any obvious acute ST elevation. Cardiac enzyme testing x 1 was not consistent with acute cardiac injury. Urinalysis did not show findings of infection. Respiratory bio fire was negative. Chest x-ray shows some mild CHF as well as a left pleural effusion with a potential infiltrate or atelectasis at the left base. BNP was elevated consistent with fluid overload and CHF. Lactic acid was not elevated making sepsis less likely. Abdominal and pelvis CT suggests cystitis with a possibility pyelonephritis. No urinary obstruction or bowel obstruction. Lumbar spine CT shows a stable L2 compression fracture, no acute fracture found. Patient received a DuoNeb. She received IV Levaquin 500 mg, she was given IV Tylenol. She received 40 mg IV Lasix. An external urinary catheter was placed to help monitor her urine output. The patient presents short of breath with some pedal edema. She was wheezing with some crackles on lung exam. She appears to be in some mild CHF. She has a high white count and a UTI. In the past, her urinary infections have been somewhat resistant. Given the patient's presentation, given her findings, I do think a hospital stay is warranted. I spoke with the patient and case management, the on-call hospitalist was consulted. Further workup/care is warranted. Prior/Outside records/notes reviewed: Today's EMS notes describing her presentation and transport to this hospital. ECG per my interpretation: Indication was shortness of breath. The ECG shows a sinus rhythm with a first-degree AV block and PACs. The rate is 76. There is some baseline artifact and some nonspecific ST change. There is an old septal infarct. No acute ST elevation. There is potential old inferior infarct. QTc is 441. Continuous Cardiac Monitoring per my interpretation: An order was placed for continuous cardiac monitoring. The monitor shows a rate of 79 with sinus rhythm with a first-degree block. Imaging/x-ray results per my interpretation: Chest x-ray shows some mild CHF with a left pleural effusion and potential infiltrate/atelectasis Chronic Medical/Social conditions affecting care: Advanced age Care/Management discussed with: Case management, the on-call hospitalist. Level of care consideration(s): After review of the information above and other included data: --I believe the patient requires escalation of care to admission DISPOSITION: Admission Past Med/Surg History Problem List (Updated 11/22/23 @ 06:52 by Mauricio Carson MD) CHF (congestive heart failure) (Acute) Wheezing (Acute) Leukocytosis (Acute) Lower back pain (Acute) Acute UTI (Acute) Anemia (Acute) SOB (shortness of breath) (Acute) Acute UTI (Acute) LOPEZ (acute kidney injury) Influenza A virus subtype H1 2009 pandemic strain present (Acute) COPD with acute exacerbation (Acute) Acute respiratory failure with hypoxia (Acute) Parastomal hernia Influenza A Anemia (Acute) Physical deconditioning Acute on chronic respiratory failure Atrioventricular (AV) dissociation Third degree heart block UTI (urinary tract infection) FRANCIS (obstructive sleep apnea) Anemia (Acute) Weakness (Acute) GI (gastrointestinal bleed) (Acute) Dizziness (Acute) Weakness (Acute) FIGUEROA (dyspnea on exertion) (Acute) Vestibular neuritis Acute respiratory failure with hypoxia Colon polyp Chronic respiratory failure with hypoxia (Acute) PVD (peripheral vascular disease) PAF (paroxysmal atrial fibrillation) on xarelto/flecainide--follows with Dr. Savage Osteoporosis CKD (chronic kidney disease), stage III (Acute) HTN (hypertension) HLD (hyperlipidemia) Multiple pulmonary nodules Tobacco dependence due to cigarettes 5 per day Chronic bronchitis Colostomy in place COPD (chronic obstructive pulmonary disease) (Acute) inhaler daily/prn, nebulizer daily/prn; continuous oxygen 3L History of creation of ostomy 10/2018 Diverticulitis Medical History Osteoarthritis Chronic back pain Diverticular disease Skin cancer of nose 1970s--unsure which kind, removed in office On anticoagulant therapy xarelto daily On home oxygen therapy 4L N/C PRN Depression Macular degeneration Surgical History History of appendectomy taken out during resection of bowel History of colonoscopy History of tooth extraction History of cataract extraction with lens replacement bilateral History of tonsillectomy History of tubal ligation History of resection of large bowel (~10/2018) perforated bowel d/t diverticulitis History of creation of ostomy 10/2018 Family History Father Pancreatic cancer Mother Stroke Other No family history of adverse response to anesthesia Social History Smoking Status: Current every day smoker Tobacco Type: Cigarettes Age Started Using Tobacco: 22; Cigarettes Per Day: 1-2 cigarettes per day; Second Hand Exposure: No; Do You Dip or Chew Tobacco: No; Hx Alcohol Use: No Hx Substance Use: No Preferred Language: Telugu Communication Ability: Effective 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 Beliefs That Will Affect Care: None marital status: / Current Living Situation: Alone Current Living Situation Comment: Lives home alone, family checks in often, and has home health Feels Safe at Home: Yes Assistive Devices: CPAP, Oxygen - Continuous and Walker Allergies Allergies Allergy/AdvReac Type Severity Reaction Status Date / Time amoxicillin Allergy Intermediate Rash Verified 10/12/23 20:55 cephalexin [From Keflex] Allergy Intermediate Rash Verified 10/12/23 20:55 cilostazol [From Pletal] Allergy Intermediate Rash Verified 10/12/23 20:55 ciprofloxacin [From Cipro] Allergy Intermediate Rash Verified 10/12/23 20:55 diltiazem Allergy Intermediate Rash Verified 10/12/23 20:55 felodipine Allergy Intermediate Rash Verified 10/12/23 20:55 meloxicam Allergy Intermediate Rash Verified 10/12/23 20:55 sulfamethoxazole Allergy Intermediate Rash Verified 10/12/23 20:55 [From Bactrim] trimethoprim [From Bactrim] Allergy Intermediate Rash Verified 10/12/23 20:55 Home Meds Home Medications Medication Instructions Recorded Confirmed calcium carbonate 500 mg-vitamin 1 tab PO QPM 03/10/19 10/12/23 D3 10 mcg (400 unit) tablet (Calcium 500 + D) escitalopram oxalate 10 mg tablet 10 mg PO QAM 03/10/19 10/12/23 (Lexapro) ferrous sulfate 325 mg (65 mg 325 mg PO QAM 03/10/19 10/12/23 iron) tablet vit C 250 mg-vit E 90 mg-zinc 40 1 tab PO QAM 03/10/19 10/12/23 mg-copper 1 [id number] capsule (PreserVision AREDS-2) ascorbic acid (vitamin C) 500 mg 500 mg PO QAM 12/08/20 10/12/23 tablet (Vitamin C) cyclosporine 0.05 % eye drops in a 1 drp OPB BID 12/08/20 10/12/23 dropperette (Restasis) rivaroxaban 15 mg tablet (Xarelto) 15 mg PO QPM 11/05/21 10/12/23 mesalamine 1.2 gram tablet,delayed 3.6 g PO QAM 03/14/23 10/12/23 release acetaminophen 325 mg tablet 325 mg PO Q6H PRN PAIN/FEVER 07/25/23 10/12/23 (Tylenol) ipratropium 0.5 mg-albuterol 3 mg 3 ml inhalation Q4H PRN Wheezing 07/25/23 10/12/23 (2.5 mg base)/3 mL nebulization soln omega-3 fatty acids 500 mg capsule 500 mg PO QAM 07/25/23 10/12/23 solifenacin 5 mg tablet 5 mg PO QAM 07/25/23 10/12/23 furosemide 20 mg tablet 20 mg PO QAM 08/28/23 10/12/23 albuterol sulfate 90 mcg/actuation 1 inh inhalation DIRECTED PRN 10/12/23 10/12/23 aerosol inhaler (ProAir HFA) Shortness Of Breath denosumab 60 mg/mL subcutaneous 60 mg subcut .[id number] 10/12/23 10/12/23 syringe (Prolia) verapamil 120 mg tablet,extended 120 mg PO QAM 10/12/23 10/12/23 release Previous Rx's Medication Instructions Recorded guaifenesin 600 mg tablet, 600 mg PO BID #60 tabs 07/16/20 extended release 12 hr (Mucinex) Portable Oxygen #1 ea 03/25/21 Auto Titrating CPAP #1 ea 02/03/23 CPAP Supplies #1 ea 02/03/23 budesonide 0.25 mg/2 mL suspension 0.25 mg (2 mL) inhalation BID #60 02/03/23 for nebulization mL umeclidinium 62.5 mcg-vilanterol 1 inh inhalation QAM #60 ea 02/03/23 25 mcg/actuation powdr for inhalation (Anoro Ellipta) pantoprazole 40 mg tablet,delayed 40 mg PO BID #60 tabs 10/16/23 release Results & Data (ED) Vital Signs Vital Signs - 24 hr 11/22/23 04:54 11/22/23 04:54 11/22/23 04:54 Temperature 36.9 C Temperature Source Oral Pulse Rate 78 78 Pulse Rate [Apical] 78 Pulse Rate from SpO2 Sensor Pulse Rhythm Regular Pulse Rhythm [Apical] Regular Pulse Strength Normal Pulse Strength [Apical] Normal Respiratory Rate 36 H 36 H 36 H Respiratory Effort / Characteristics Labored Short of Breath Labored Respiratory Depth Shallow Shallow Respiratory Pattern Tachypnea Tachypnea Blood Pressure 143/60 H Blood Pressure [Right Arm] 143/60 H Blood Pressure Mean 87 Blood Pressure Mean [Right Arm] 87 Blood Pressure Position Sitting Blood Pressure Position [Right Arm] Lying Pulse Oximetry 99 99 99 Oxygen Delivery Method Nasal Cannula Nasal Cannula Nasal Cannula Oxygen Flow Rate 4 4 4 Sepsis Recent Fever Within 48 Hours No Sepsis New/Unexplained Change in Mental Status No Sepsis Action Taken by Nursing No Action Required 11/22/23 04:54 11/22/23 04:54 11/22/23 04:54 Temperature Temperature Source Pulse Rate 69 Pulse Rate [Apical] Pulse Rate from SpO2 Sensor Pulse Rhythm Pulse Rhythm [Apical] Pulse Strength Pulse Strength [Apical] Respiratory Rate Respiratory Effort / Characteristics Labored Respiratory Depth Shallow Respiratory Pattern Tachypnea Blood Pressure Blood Pressure [Right Arm] Blood Pressure Mean Blood Pressure Mean [Right Arm] Blood Pressure Position Blood Pressure Position [Right Arm] Pulse Oximetry Oxygen Delivery Method Nasal Cannula Nasal Cannula Oxygen Flow Rate 4 4 Sepsis Recent Fever Within 48 Hours Sepsis New/Unexplained Change in Mental Status Sepsis Action Taken by Nursing 11/22/23 05:52 11/22/23 06:01 11/22/23 06:15 Temperature Temperature Source Pulse Rate 74 67 62 Pulse Rate [Apical] Pulse Rate from SpO2 Sensor 67 67 61 Pulse Rhythm Pulse Rhythm [Apical] Pulse Strength Pulse Strength [Apical] Respiratory Rate 19 22 22 Respiratory Effort / Characteristics Respiratory Depth Respiratory Pattern Blood Pressure 145/56 H Blood Pressure [Right Arm] Blood Pressure Mean 85 Blood Pressure Mean [Right Arm] Blood Pressure Position Blood Pressure Position [Right Arm] Pulse Oximetry 94 95 100 Oxygen Delivery Method Nasal Cannula Oxygen Flow Rate 3 Sepsis Recent Fever Within 48 Hours Sepsis New/Unexplained Change in Mental Status Sepsis Action Taken by [facility] Medications Current Medication List: was personally reviewed by me Laboratory Data Attestation: I reviewed the patient's lab results. 11/22/23 04:54 11/22/23 04:54 Lab Results 11/22/23 11/22/23 11/22/23 Range/Units 04:42 04:54 04:57 WBC 14.54 H (4.8-10.8) K/ul RBC 2.74 L (4.20-5.40) M/uL Hgb 8.2 L (12.0-16.0) g/dl Hct 26.8 L (37.0-47.0) % MCV 97.8 (80.0-100.0) fL MCH 29.9 (25.0-34.0) pg MCHC 30.6 L (32.0-36.0) g/dL RDW Std Deviation 55.4 H (36.4-46.3) fL RDW Coeff of Lynn 15.5 H (11.5-14.5) % Plt Count 400 (130-400) K/uL MPV 8.7 L (9.4-12.4) fL Immature Gran % (Auto) 1.9 % Neut % (Auto) 70.5 % Lymph % (Auto) 13.6 % [place] % (Auto) 11.2 % Eos % (Auto) 2.5 % Baso % (Auto) 0.3 % Neut # (Auto) 10.25 H (1.40-6.50) K/uL Lymph # (Auto) 1.98 (1.20-3.40) K/uL [place] # (Auto) 1.63 H (0.11-0.59) K/uL Eos # (Auto) 0.36 (0.00-0.50) K/uL Baso # (Auto) 0.05 (0.00-0.20) K/uL Immature Gran # (Auto) 0.27 H (0.01-0.20) K/uL PT 15.1 H (9.0-12.0) Seconds INR 1.4 H (0.9-1.1) APTT 41 H (21-31) Seconds PTT Ratio 1.5 Sodium 137 (136-145) mmol/L Potassium 3.6 (3.5-5.1) mmol/L Chloride 101 (98-107) mmol/L Carbon Dioxide 28 (21-32) mmol/L Anion Gap 8 (3-11) BUN 23 (6-23) mg/dl Creatinine 1.39 H (0.6-1.2) mg/dl Est Cr Clr Drug Dosing 27.8 ml/min Est GFR ( Amer) 41.1 ml/min Est GFR (Non-Af Amer) 35.5 ml/min BUN/Creatinine Ratio 16.5 (10-20) Glucose 111 H (70-99(Fasting)) mg/dl Lactate (0.4-2.0) mmol/L Calcium 9.3 (8.6-10.3) mg/dl Magnesium 1.9 (1.7-2.4) mg/dl Total Bilirubin 0.3 (0.2-1.0) mg/dl AST 12 L (13-39) U/L ALT 7 (7-52) U/L Alkaline Phosphatase 84 (34-104) U/L Troponin I High Sens 9.6 (0-14) pg/ml B-Natriuretic Peptide 176 H (0-100) pg/ml Total Protein 7.0 (6.0-8.3) gm/dl Albumin 3.4 (3.4-5.0) gm/dl Globulin 3.6 (2.5-4.0) gm/dl Albumin/Globulin Ratio 0.9 (0.9-2) Urine Color Yellow Urine Appearance Turbid A (Clear) Urine pH 6.0 (4.5-7.5) Ur Specific [place] 1.011 (1.000-1.030) Urine Protein 1+ H (Negative) Urine Glucose (UA) Negative (Negative) Urine Ketones Negative (Negative) Urine Blood 3+ H (Negative) Urine Nitrite Negative (Negative) Urine Bilirubin Negative (Negative) Urine Urobilinogen Negative (Negative) Ur Leukocyte Esterase 3+ H (Negative) Urine WBC (Auto) >50 H (0-5) /hpf Urine RBC (Auto) >20 H (0-2) /hpf U Hyaline Cast (Auto) 3-5 H (0-2) /lpf U Epithel Cells (Auto) 0-2 (0-2) /hpf Urine Bacteria (Auto) None Seen (None Seen) Adenovirus (PCR) Not Detected (NotDetected) B. pertussis DNA (PCR) Not Detected (NotDetected) B.parapertussis DNA PCR Not Detected (NotDetected) C. pneumoniae DNA (PCR) Not Detected (NotDetected) Coronavirus OC43 (PCR) Not Detected (NotDetected) Coronavirus HKU1 (PCR) Not Detected (NotDetected) Coronavirus 229E (PCR) Not Detected (NotDetected) SARS-CoV-2 (PCR) Not Detected (NotDetected) Coronavirus NL63 (PCR) Not Detected (NotDetected) Human Metapneumovir PCR Not Detected (NotDetected) Influenza Type A (PCR) Not Detected (NotDetected) Influenza Type B (PCR) Not Detected (NotDetected) M. pneumoniae (PCR) Not Detected (NotDetected) Parainfluenza 1 (PCR) Not Detected (NotDetected) Parainfluenza 2 (PCR) Not Detected (NotDetected) Parainfluenza 3 (PCR) Not Detected (NotDetected) Parainfluenza 4 (PCR) Not Detected (NotDetected) RSV (PCR) Not Detected (NotDetected) Entero/Rhino (PCR) Not Detected (NotDetected) 11/22/23 Range/Units 06:28 WBC (4.8-10.8) K/ul RBC (4.20-5.40) M/uL Hgb (12.0-16.0) g/dl Hct (37.0-47.0) % MCV (80.0-100.0) fL MCH (25.0-34.0) pg MCHC (32.0-36.0) g/dL RDW Std Deviation (36.4-46.3) fL RDW Coeff of Lynn (11.5-14.5) % Plt Count (130-400) K/uL MPV (9.4-12.4) fL Immature Gran % (Auto) % Neut % (Auto) % Lymph % (Auto) % [place] % (Auto) % Eos % (Auto) % Baso % (Auto) % Neut # (Auto) (1.40-6.50) K/uL Lymph # (Auto) (1.20-3.40) K/uL [place] # (Auto) (0.11-0.59) K/uL Eos # (Auto) (0.00-0.50) K/uL Baso # (Auto) (0.00-0.20) K/uL Immature Gran # (Auto) (0.01-0.20) K/uL PT (9.0-12.0) Seconds INR (0.9-1.1) APTT (21-31) Seconds PTT Ratio Sodium (136-145) mmol/L Potassium (3.5-5.1) mmol/L Chloride (98-107) mmol/L Carbon Dioxide (21-32) mmol/L Anion Gap (3-11) BUN (6-23) mg/dl Creatinine (0.6-1.2) mg/dl Est Cr Clr Drug Dosing ml/min Est GFR ( Amer) ml/min Est GFR (Non-Af Amer) ml/min BUN/Creatinine Ratio (10-20) Glucose (70-99(Fasting)) mg/dl Lactate 1.2 (0.4-2.0) mmol/L Calcium (8.6-10.3) mg/dl Magnesium (1.7-2.4) mg/dl Total Bilirubin (0.2-1.0) mg/dl AST (13-39) U/L ALT (7-52) U/L Alkaline Phosphatase (34-104) U/L Troponin I High Sens (0-14) pg/ml B-Natriuretic Peptide (0-100) pg/ml Total Protein (6.0-8.3) gm/dl Albumin (3.4-5.0) gm/dl Globulin (2.5-4.0) gm/dl Albumin/Globulin Ratio (0.9-2) Urine Color Urine Appearance (Clear) Urine pH (4.5-7.5) Ur Specific [place] (1.000-1.030) Urine Protein (Negative) Urine Glucose (UA) (Negative) Urine Ketones (Negative) Urine Blood (Negative) Urine Nitrite (Negative) Urine Bilirubin (Negative) Urine Urobilinogen (Negative) Ur Leukocyte Esterase (Negative) Urine WBC (Auto) (0-5) /hpf Urine RBC (Auto) (0-2) /hpf U Hyaline Cast (Auto) (0-2) /lpf U Epithel Cells (Auto) (0-2) /hpf Urine Bacteria (Auto) (None Seen) Adenovirus (PCR) (NotDetected) B. pertussis DNA (PCR) (NotDetected) B.parapertussis DNA PCR (NotDetected) C. pneumoniae DNA (PCR) (NotDetected) Coronavirus OC43 (PCR) (NotDetected) Coronavirus HKU1 (PCR) (NotDetected) Coronavirus 229E (PCR) (NotDetected) SARS-CoV-2 (PCR) (NotDetected) Coronavirus NL63 (PCR) (NotDetected) Human Metapneumovir PCR (NotDetected) Influenza Type A (PCR) (NotDetected) Influenza Type B (PCR) (NotDetected) M. pneumoniae (PCR) (NotDetected) Parainfluenza 1 (PCR) (NotDetected) Parainfluenza 2 (PCR) (NotDetected) Parainfluenza 3 (PCR) (NotDetected) Parainfluenza 4 (PCR) (NotDetected) RSV (PCR) (NotDetected) Entero/Rhino (PCR) (NotDetected) Administered Medications Discontinued Medications Albuterol (Albut/Ipratrop 3mg/0.5mg Neb 3 Ml Vial) 3 ml NEB NOW STA; Protocol Stop: 11/22/23 05:30 Last Admin: 11/22/23 06:09 Dose: 3 ml Documented By: SRL Acetaminophen (Ofirmev) 1,000 mg in 100 mls @ 400 mls/hr IV NOW STA Stop: 11/22/23 05:07 Last Infusion: 11/22/23 05:45 Dose: Infused Documented By: Admin: 11/22/23 05:28 Dose: 400 mls/hr Documented By: SRL Levofloxacin/Dextrose (Levaquin/D5w) 500 mg in 100 mls @ 100 mls/hr IV NOW STA Stop: 11/22/23 06:54 Last Admin: 11/22/23 06:09 Dose: 100 mls/hr Documented By: SRL Imaging Data Radiologist's Impression: Abdomen/Pelvis CT 11/22/23 04:51 Exam(s): CT ABDOMEN + PELVIS Without Contrast EXAM: CT Abdomen and Pelvis Without Intravenous Contrast CLINICAL HISTORY: Reason for exam: poss obstruc or hydronephrosis. TECHNIQUE: Axial computed tomography images of the abdomen and pelvis without intravenous contrast. CTDI is 25.3 mGy and DLP is 1107.81 mGy-cm. Automated exposure control was utilized for the study. A dose lowering technique was utilized adhering to the principles of ALARA. COMPARISON: CT Abdomen Pelvis dated 08/28/23 FINDINGS: Lung bases: Bibasilar atelectasis and chronic changes. ABDOMEN: Liver: Unremarkable. Gallbladder and bile ducts: Unremarkable. No calcified stones. No ductal dilation. Pancreas: Unremarkable. No ductal dilation. Spleen: Unremarkable. No splenomegaly. Adrenals: Unremarkable. No mass. Kidneys and ureters: Mild left renal pelvic caliectasis and minimal surrounding stranding. No obstructing calculus visualized. Multiple nonobstructing bilateral renal calculi. Largest in the left lower pole, 12 mm as on the prior. Stomach and bowel: Left lower quadrant colostomy. Large parastomal hernia containing small bowel and colonic loops. No obstruction. No mucosal thickening. PELVIS: Appendix: No findings to suggest acute appendicitis. Bladder: Wall thickening of moderately distended bladder and mild surrounding stranding, new since prior. May represent cystitis. Gas within the urinary bladder may be due to infection or recent instrumentation. No stones. Reproductive: Unremarkable as visualized. ABDOMEN and PELVIS: Intraperitoneal space: Unremarkable. No free air. No significant fluid collection. Bones/joints: Levoscoliosis. Degenerative changes. T11 and L2 compression deformities, stable. No dislocation. Soft tissues: See above. Vasculature: Marked atherosclerotic calcifications of the aorta and branches. No abdominal aortic aneurysm. Lymph nodes: Unremarkable. No enlarged lymph nodes. IMPRESSION: 1. Wall thickening of moderately distended bladder and mild surrounding stranding. May represent cystitis. Gas within the urinary bladder may be due to infection or recent instrumentation. 2. Mild left renal pelvic caliectasis and minimal surrounding stranding. May relate to infection. 3. Multiple nonobstructing bilateral renal calculi. Largest in the left lower pole, 12 mm as on the prior. 4. Left lower quadrant colostomy. Large parastomal hernia containing small bowel and colonic loops. No obstruction. 5. Colonic diverticulosis. Electronically signed by: Ag Sutherland M.D. 11/22/23 06:[address] 11/22/23 04:51 Exam(s): CT L SPINE EXAM: CT Lumbar Spine Without Intravenous Contrast CLINICAL HISTORY: Reason for exam: lower back pain. TECHNIQUE: Axial computed tomography images of the lumbar spine without intravenous contrast. CTDI is 25.3 mGy and DLP is 1107.81 mGy-cm. Automated exposure control was utilized for the study. A dose lowering technique was utilized adhering to the principles of ALARA. COMPARISON: CT abdomen pelvis also today, and on 08/28/2023 FINDINGS: Vertebrae: Stable L2 compression deformity with 30% height loss. Prominent Schmorl's nodes of the T12 and L3 superior endplates. Mild levoscoliosis of the lumbar spine. Discs/spinal canal/neural foramina: Multilevel degenerative changes. Moderate central canal stenosis from L2-L5. Likely severe left foraminal stenosis at L4-5 and L5-S1. Soft tissues: Unremarkable. IMPRESSION: 1. No evidence of acute fracture or malalignment. 2. No significant interval change. 3. Stable L2 compression deformity with 30% height loss. 4. Multilevel degenerative changes. Electronically signed by: Ag Sutherland M.D. 11/22/23 07:00 AM Chest X-Ray 11/22/23 04:52 XR chest 1V portable HISTORY: Dyspnea COMPARISON: Chest 10/12/2023. FINDINGS: There are low lung volumes. No pneumothorax. The heart remains mildly enlarged. Mild chronic interstitial thickening persists. The upper lung zones appear clear. No acute fractures. Patchy bibasilar densities persist. This favors atelectasis. Emphysema again noted. IMPRESSION: 1. No significant change in the patchy bibasilar densities which favors atelectasis. 2. Cardiomegaly and emphysema again noted. ACT 112: Negative or not required by law. Electronically signed by: Demetri Workman M.D. 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 ED Provider: Mauricio Carson Discharge Problem: SOB (shortness of breath), Anemia, Acute UTI, Lower back pain, Leukocytosis, Wheezing, CHF (congestive heart failure) Patient Disposition: Admitted As Inpatient Condition: Fair Forms Stand Alone Forms: [employer] Prescriptions Prescriptions: No Action Anoro Ellipta 62.5-25 mcg/actuation blister with device 1 inh INH QAM Qty: 60 8RF budesonide 0.25 mg/2 mL suspension for nebulization 0.25 mg inhalation BID Qty: 60 8RF (DME) Auto Titrating CPAP Misc See Rx Instructions .MEDSUPPLY Qty: 1 0RF Rx Instructions: Auto PAP with 8-16 cm H20. Lifetime usage. G47.3 (DME) CPAP Supplies Misc See Rx Instructions .MEDSUPPLY Qty: 1 0RF Rx Instructions: CPAP supplies, mask, headgear, filters, tubing, water chamber. G47.33 guaifenesin [Mucinex] 600 mg tablet extended release 12hr 600 mg PO BID Qty: 60 3RF (DME) Portable Oxygen Misc See Rx Instructions .MEDSUPPLY Qty: 1 0RF Rx Instructions: Oxygen 2 liters continuous with portable concentrator. ASHLEY 99 ferrous sulfate 325 mg (65 mg iron) tablet 325 mg PO QAM escitalopram oxalate [Lexapro] 10 mg Tablet 10 mg PO QAM calcium carbonate-vitamin D3 [Calcium 500 + D] 500 mg(1,250mg) -400 unit Tablet 1 tab PO QPM PreserVision AREDS-2 [id number]-mirf-au-mg Capsule 1 tab PO QAM mesalamine 1.2 gram tablet,delayed release (DR/EC) 3.6 g PO QAM cyclosporine [Restasis] 0.05 % dropperette 1 drp OPB BID ascorbic acid (vitamin C) [Vitamin C] 500 mg Tablet 500 mg PO QAM Xarelto 15 mg tablet 15 mg PO QPM Rx Instructions: PER [facility] MED LIST "ON HOLD 09/19/23" acetaminophen [Tylenol] 325 mg Tablet 325 mg PO Q6H PRN (Reason: PAIN/FEVER) solifenacin 5 mg tablet 5 mg PO QAM omega-3 fatty acids 500 mg Capsule 500 mg PO QAM ipratropium-albuterol 0.5 mg-3 mg(2.5 mg base)/3 mL solution for nebulization 3 ml INHALATION Q4H PRN (Reason: Wheezing) furosemide 20 mg tablet 20 mg PO QAM verapamil 120 mg tablet extended release 120 mg PO QAM Prolia 60 mg/mL Syringe 60 mg SUBCUT .[id number] albuterol sulfate [ProAir HFA] 90 mcg/actuation HFA aerosol inhaler 1 inh INH DIRECTED PRN (Reason: Shortness Of Breath) pantoprazole 40 mg Tablet,Delayed Release (Dr/Ec) 40 mg PO BID Qty: 60 0RF Referrals Referrals: Tameka Mao MD [Primary Care Provider] - Discharge Problem: Anemia Qualifiers: Anemia type: unspecified type Qualified Code(s): D64.9 - Anemia, unspecified Lower back pain Qualifiers: Chronicity: acute Back pain laterality: bilateral Sciatica presence: without sciatica Qualified Code(s): M54.50 - Low back pain, unspecified Leukocytosis Qualifiers: Leukocytosis type: unspecified Qualified Code(s): D72.829 - Elevated white blood cell count, unspecified CHF (congestive heart failure) Qualifiers: Heart failure type: unspecified Heart failure chronicity: acute Qualified Code(s): I50.9 - Heart failure, unspecified
[2023-11-22 05:09] LABS: Basophils # (auto) 0.05 K/uL (0.00-0.20); Basophils % (auto) 0.3 %; Eosinophils # (auto) 0.36 K/uL (0.00-0.50); Eosinophils % (auto) 2.5 %; Hematocrit (blood only) 26.8 % (37.0-47.0); Hemoglobin 8.2 g/dl (12.0-16.0); Immature Granulocytes # (auto) 0.27 K/uL (0.01-0.20); Immature Granulocytes % (auto) 1.9 %; Lymphocytes # (auto) 1.98 K/uL (1.20-3.40); Lymphocytes % (auto) 13.6 %; Mean Corpuscular Hemoglobin 29.9 pg (25.0-34.0); Mean Corpuscular Hgb Conc 30.6 g/dL (32.0-36.0); Mean Corpuscular Volume 97.8 fL (80.0-100.0); Mean Platelet Volume 8.7 fL (9.4-12.4); Monocytes # (auto) 1.63 K/uL (0.11-0.59); Monocytes % (auto) 11.2 %; Neutrophils # (auto) 10.25 K/uL (1.40-6.50); Neutrophils % (auto) 70.5 %; Platelet Count 400 K/uL (130-400); RDW Coefficient of Variation 15.5 % (11.5-14.5); RDW Standard Deviation 55.4 fL (36.4-46.3); Red Blood Count 2.74 M/uL (4.20-5.40); White Blood Count 14.54 K/ul (4.8-10.8)
[2023-11-22 05:09] LABS: Appearance Urine Turbid (Clear); Bacteria Urine Automated None Seen (None Seen); Bilirubin Urine Negative (Negative); Blood Urine 3+ (Negative); Color Urine Yellow; Epithelial Cell Urine Auto 0-2 /hpf (0-2); Glucose Urine UA Negative (Negative); Ketones Urine Negative (Negative); Leukocyte Esterase Urine 3+ (Negative); Nitrite Urine Negative (Negative); Protein Urine 1+ (Negative); RBC Urine Automated >20 /hpf (0-2); Specific Gravity Urine 1.011 (1.000-1.030); Urobilinogen Urine Negative (Negative); WBC Urine Automated >50 /hpf (0-5)
[2023-11-22 05:26] LABS: Albumin Globulin Ratio 0.9 (0.9-2); Albumin Level 3.4 gm/dl (3.4-5.0); BUN Creatinine Ratio 16.5 (10-20); Bilirubin,Total 0.3 mg/dl (0.2-1.0); Calcium 9.3 mg/dl (8.6-10.3); Creatinine Clr Calc Pharmacy 27.8 ml/min; Est GFR (African American) 41.1 ml/min; Est GFR (Non-African American) 35.5 ml/min; Globulin 3.6 gm/dl (2.5-4.0); Magnesium 1.9 mg/dl (1.7-2.4); Potassium 3.6 mmol/L (3.5-5.1)
[2023-11-22] MEDS: ACETAMINOPHEN 1,000 MG/100 ML VIAL IV STA (05:28)
[2023-11-22 05:31] LABS: Troponin I High Sensitivity 9.6 pg/ml (0-14)
[2023-11-22 05:46] LABS: INR 1.4 (0.9-1.1); Partial Thromboplastin Ratio 1.5; Partial Thromboplastin Time 41 Seconds (21-31); Prothrombin Time 15.1 Seconds (9.0-12.0)
[2023-11-22 05:53] LABS: Adenovirus PCR Not Detected (NotDetected); Bordetella parapertussis PCR Not Detected (NotDetected); Bordetella pertussis PCR Not Detected (NotDetected); Chlamydia pneumoniae PCR Not Detected (NotDetected); Coronavirus 229E PCR Not Detected (NotDetected); Coronavirus CoV-2 (COVID19)PCR Not Detected (NotDetected); Coronavirus HKU1 PCR Not Detected (NotDetected); Coronavirus NL63 PCR Not Detected (NotDetected); Coronavirus OC43PCR Not Detected (NotDetected); Human Metapneumovirus PCR Not Detected (NotDetected); Influenza A PCR Not Detected (NotDetected); Influenza B PCR Not Detected (NotDetected); Mycoplasma pneumoniae PCR Not Detected (NotDetected); Parainfluenza Virus 1 PCR Not Detected (NotDetected); Parainfluenza Virus 2 PCR Not Detected (NotDetected); Parainfluenza Virus 3 PCR Not Detected (NotDetected); Parainfluenza Virus 4 PCR Not Detected (NotDetected); Respiratory Syncytial VirusPCR Not Detected (NotDetected); Rhinovirus/Enterovirus PCR Not Detected (NotDetected)
[2023-11-22] MEDS: levoFLOXacin/D5W 500 MG/100 ML BAG IV STA (06:09)
[2023-11-22] MEDS: ALBUT/IPRATROP 3MG/0.5MG NEB 3 ML VIAL NEB STA (06:09)
--- NOTE | 2023-11-22 06:56 | CT Scan Report ---
Exam(s): CT ABDOMEN + PELVIS Without Contrast EXAM: CT Abdomen and Pelvis Without Intravenous Contrast CLINICAL HISTORY: Reason for exam: poss obstruc or hydronephrosis. TECHNIQUE: Axial computed tomography images of the abdomen and pelvis without intravenous contrast. CTDI is 25.3 mGy and DLP is 1107.81 mGy-cm. Automated exposure control was utilized for the study. A dose lowering technique was utilized adhering to the principles of ALARA. COMPARISON: CT Abdomen Pelvis dated 08/28/23 FINDINGS: Lung bases: Bibasilar atelectasis and chronic changes. ABDOMEN: Liver: Unremarkable. Gallbladder and bile ducts: Unremarkable. No calcified stones. No ductal dilation. Pancreas: Unremarkable. No ductal dilation. Spleen: Unremarkable. No splenomegaly. Adrenals: Unremarkable. No mass. Kidneys and ureters: Mild left renal pelvic caliectasis and minimal surrounding stranding. No obstructing calculus visualized. Multiple nonobstructing bilateral renal calculi. Largest in the left lower pole, 12 mm as on the prior. Stomach and bowel: Left lower quadrant colostomy. Large parastomal hernia containing small bowel and colonic loops. No obstruction. No mucosal thickening. PELVIS: Appendix: No findings to suggest acute appendicitis. Bladder: Wall thickening of moderately distended bladder and mild surrounding stranding, new since prior. May represent cystitis. Gas within the urinary bladder may be due to infection or recent instrumentation. No stones. Reproductive: Unremarkable as visualized. ABDOMEN and PELVIS: Intraperitoneal space: Unremarkable. No free air. No significant fluid collection. Bones/joints: Levoscoliosis. Degenerative changes. T11 and L2 compression deformities, stable. No dislocation. Soft tissues: See above. Vasculature: Marked atherosclerotic calcifications of the aorta and branches. No abdominal aortic aneurysm. Lymph nodes: Unremarkable. No enlarged lymph nodes. IMPRESSION: 1. Wall thickening of moderately distended bladder and mild surrounding stranding. May represent cystitis. Gas within the urinary bladder may be due to infection or recent instrumentation. 2. Mild left renal pelvic caliectasis and minimal surrounding stranding. May relate to infection. 3. Multiple nonobstructing bilateral renal calculi. Largest in the left lower pole, 12 mm as on the prior. 4. Left lower quadrant colostomy. Large parastomal hernia containing small bowel and colonic loops. No obstruction. 5. Colonic diverticulosis. Electronically signed by: Ag Sutherland M.D. 11/22/23 06:55 AM
--- NOTE | 2023-11-22 07:02 | CT Scan Report ---
Exam(s): CT L SPINE EXAM: CT Lumbar Spine Without Intravenous Contrast CLINICAL HISTORY: Reason for exam: lower back pain. TECHNIQUE: Axial computed tomography images of the lumbar spine without intravenous contrast. CTDI is 25.3 mGy and DLP is 1107.81 mGy-cm. Automated exposure control was utilized for the study. A dose lowering technique was utilized adhering to the principles of ALARA. COMPARISON: CT abdomen pelvis also today, and on 08/28/2023 FINDINGS: Vertebrae: Stable L2 compression deformity with 30% height loss. Prominent Schmorl's nodes of the T12 and L3 superior endplates. Mild levoscoliosis of the lumbar spine. Discs/spinal canal/neural foramina: Multilevel degenerative changes. Moderate central canal stenosis from L2-L5. Likely severe left foraminal stenosis at L4-5 and L5-S1. Soft tissues: Unremarkable. IMPRESSION: 1. No evidence of acute fracture or malalignment. 2. No significant interval change. 3. Stable L2 compression deformity with 30% height loss. 4. Multilevel degenerative changes. Electronically signed by: Ag Sutherland M.D. 11/22/23 07:00 AM
--- NOTE | 2023-11-22 07:07 | XRay Report ---
XR chest 1V portable HISTORY: Dyspnea COMPARISON: Chest 10/12/2023. FINDINGS: There are low lung volumes. No pneumothorax. The heart remains mildly enlarged. Mild chroni c interstitial thickening persists. The upper lung zones appear clear. No acute fractures. Patchy bib asilar densities persist. This favors atelectasis. Emphysema again noted. IMPRESSION: 1. No significant change in the patchy bibasilar densities which favors atelectasis. 2. Cardiomegaly and emphysema again noted. ACT 112: Negative or not required by law. Electronically signed by: Demetri Workman M.D. 11/22/2023 7:06 AM
[2023-11-22] MEDS: ALBUT/IPRATROP 3MG/0.5MG NEB 3 ML VIAL NEB SCH (08:42)
[2023-11-22] MEDS: SODIUM CHLOR 7% 4 ML NEB NEB SCH (08:42)
[2023-11-22] MEDS: cefTRIAXone SODIUM 2,000 MG/50 ML BAG IV SCH (08:59)
[2023-11-22] MEDS: FUROSEMIDE 40 MG/4 ML VIAL IV ONE ×2 (08:59)
[2023-11-22] MEDS: MAGNESIUM HYDROXIDE SUSP 30 ML UDC PO SCH (09:35)
--- NOTE | 2023-11-22 10:00 | CT Scan Report ---
CT chest diagnostic wo con CLINICAL HISTORY: persistent SOB and cough TECHNIQUE: Multidetector row helical CT of the chest was performed. Coronal and sagittal reformations were obtained. Automated dose lowering techniques and/or adjustment according to patient size were u tilized for this exam. CT DOSE: 799.57 mGy.cm Comparison: Comparison is made to CT chest 08/06/2023 FINDINGS: Lungs and pleura: Emphysema and interstitial thickening is seen with mild bronchiectasis. There is at electasis in the lingula and left lower lobe. Stable left fissural nodule. Heart and pericardium: Heart size is normal. No pericardial effusion. Vessels: Severe atherosclerotic changes in the aorta and coronary arteries. Pulmonary trunk measures 34 mm in diameter. Mediastinum and christopher: Subcentimeter lymph nodes are seen. Chest wall and lower neck: Unremarkable. Abdomen: Unremarkable. Bones: Degenerative changes in the thoracic spine. Compression deformities in the lower thoracic and upper lumbar spine are seen. IMPRESSION: 1. Emphysema and interstitial thickening without evidence of pneumonia. Mild bronchiectasis and has above. 2. Cardiomegaly and hypertension. ACT 112: Negative or not required by law. Electronically signed by: Yoel Elena M.D. 11/22/2023 9:58 AM
[2023-11-22] MEDS: POLYETHYLENE (MIRALAX) 17 GM PACK PO SCH (10:30)
[2023-11-22] MEDS ORDERED: ALBUT/IPRATROP 3MG/0.5MG NEB 3 ML VIAL INH PRN (12:06)
[2023-11-22] MEDS ORDERED: ACETAMINOPHEN 325 MG TAB PO PRN (12:06)
[2023-11-22] MEDS ORDERED: ALBUTEROL HFA 8 GM INHALER INH PRN (12:06)
[2023-11-22] MEDS ORDERED: ARTIFICIAL TEARS OP PRN (12:52)
--- NOTE | 2023-11-22 16:36 | Electrocardiogram Report ---
Test Reason : Blood Pressure : / mmHG Vent. Rate : 076 BPM Atrial Rate : 076 BPM P-R Int : 248 ms QRS Dur : 068 ms QT Int : 392 ms P-R-T Axes : 063 -14 037 degrees QTc Int : 441 ms Sinus rhythm with 1st degree A-V block with Premature atrial complexes Septal infarct (cited on or before 29-JUL-2023) Possible Inferior infarct , age undetermined Abnormal ECG When compared with ECG of 12-OCT-2023 16:44, Premature atrial complexes are now Present Borderline criteria for Inferior infarct are now Present Confirmed by Torey Sifuentes ([id number]) on 11/22/2023 4:35:27 PM Referred By: REFERRED SELF Confirmed By:Torey Sifuentes
--- NOTE | 2023-11-22 16:44 | History & Physical Report ---
Date of Service November 22, 2023 Assessment & Plan (1) Acute UTI: Plan: Acute UTI Possible pyelonephritis Patient presents with bilateral back and flank pain. Leukocytosis present on admission Urinalysis suggestive of possible infection CT abdomen pelvis on admission showed wall thickening and moderately distended bladder with surrounding stranding which may represent cystitis. Mild left renal pelvic caliectasis and surrounding stranding. Patient is started on empiric antibiotic with ceftriaxone. Will follow-up on urine and blood culture Encourage oral hydration Chronic hypoxic respiratory failure on 3 L oxygen History of COPD Obstructive sleep apnea Patient reports chronic cough for several weeks symptoms nonproductive CT chest shows emphysema and interstitial thickening without evidence of pneumon ia, mild bronchiectasis seen with atelectasis. 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 Patient reports decreased output for several days Will start bowel regimen with MiraLAX and milk of magnesia Monitor colostomy output On mesalamine Hypertension Continue Verapamil with holding parameters History of A-fib Continue Verapamil with holding parameters On Xarelto, continue GERD On Protonix DVT prophylaxis On Xarelto scds Disposition Med/telemetry Time spent evaluating patient, direct bedside care, chart review, placing orders, interpretation of diagnostic studies, discussion with consultants, patient, and family members, as well as other required patient management activities is 75 minutes Please note the above document was generated using voice recognition software. It may contain grammatical, syntax or spelling errors. Any formal questions or concerns about the content, text or information contained within the body of this dictation should be directly addressed to the provider for clarification Admission and Anticipated Discharge Date Admission Date: November 22, 2023 History of Present Illness Chief Complaint: Shortness of breath and cough for several weeks Decrease output from colostomy for 1 week Primary Care Provider: Tameka Mao MD History obtained from interview with the patient and chart review Past medical history of diverticulitis status post resection of large bowel with colostomy, chronic respiratory failure on 3 L of oxygen at baseline, COPD, FRANCIS, paroxysmal A-fib on Xarelto, hypertension, CKD stage III and depression. Recent confinement from October 11 to October 16, 2023 for LOPEZ and UTI Patient reports ongoing cough for several weeks. She reports that the cough is nonproductive; she reports that she feels the phlegm is "stuck" on her chest and is unable to get it out. She denies any fever, chills, increasing oxygen requirement. She does endorse mild shortness of breath on exertion She reports slightly decreased appetite, and decreased colostomy output recently. She denies increasing urinary frequency, urgency. Reports bilateral flank pain. She lives with high herself but has family close by. She is independent of most ADLs Allergies Allergy/AdvReac Type Severity Reaction Status Date / Time amoxicillin Allergy Intermediate Rash Verified 10/12/23 20:55 cephalexin [From Keflex] Allergy Intermediate Rash Verified 10/12/23 20:55 cilostazol [From Pletal] Allergy Intermediate Rash Verified 10/12/23 20:55 ciprofloxacin [From Cipro] Allergy Intermediate Rash Verified 10/12/23 20:55 diltiazem Allergy Intermediate Rash Verified 10/12/23 20:55 felodipine Allergy Intermediate Rash Verified 10/12/23 20:55 meloxicam Allergy Intermediate Rash Verified 10/12/23 20:55 sulfamethoxazole Allergy Intermediate Rash Verified 10/12/23 20:55 [From Bactrim] trimethoprim [From Bactrim] Allergy Intermediate Rash Verified 10/12/23 20:55 Home Medications Medication Instructions Recorded Confirmed Type calcium carbonate 500 mg-vitamin 1 tab PO QPM 03/10/19 11/22/23 History D3 10 mcg (400 unit) tablet (Calcium 500 + D) escitalopram oxalate 10 mg tablet 10 mg PO QAM 03/10/19 11/22/23 History (Lexapro) ferrous sulfate 325 mg (65 mg 325 mg PO QAM 03/10/19 11/22/23 History iron) tablet vit C 250 mg-vit E 90 mg-zinc 40 1 tab PO QAM 03/10/19 11/22/23 History mg-copper 1 [id number] capsule (PreserVision AREDS-2) guaifenesin 600 mg tablet, 600 mg PO BID #60 tabs 07/16/20 11/22/23 Rx extended release 12 hr (Mucinex) ascorbic acid (vitamin C) 500 mg 500 mg PO QAM 12/08/20 11/22/23 History tablet (Vitamin C) cyclosporine 0.05 % eye drops in a 1 drp OPB BID 12/08/20 11/22/23 History dropperette (Restasis) Portable Oxygen #1 ea 03/25/21 08/28/23 Rx rivaroxaban 15 mg tablet (Xarelto) 15 mg PO QPM 11/05/21 11/22/23 History Auto Titrating CPAP #1 ea 02/03/23 08/28/23 Rx CPAP Supplies #1 ea 02/03/23 08/28/23 Rx budesonide 0.25 mg/2 mL suspension 0.25 mg (2 mL) inhalation BID #60 02/03/23 11/22/23 Rx for nebulization mL umeclidinium 62.5 mcg-vilanterol 1 inh inhalation QAM #60 ea 02/03/23 11/22/23 Rx 25 mcg/actuation powdr for inhalation (Anoro Ellipta) mesalamine 1.2 gram tablet,delayed 3.6 g PO QAM 03/14/23 11/22/23 History release acetaminophen 325 mg tablet 325 mg PO Q6H PRN PAIN/FEVER 07/25/23 11/22/23 History (Tylenol) ipratropium 0.5 mg-albuterol 3 mg 3 ml inhalation Q4H PRN Wheezing 07/25/23 11/22/23 History (2.5 mg base)/3 mL nebulization soln omega-3 fatty acids 500 mg capsule 500 mg PO QAM 07/25/23 11/22/23 History solifenacin 5 mg tablet 5 mg PO QAM 07/25/23 11/22/23 History furosemide 20 mg tablet 20 mg PO QAM 08/28/23 11/22/23 History albuterol sulfate 90 mcg/actuation 1 inh inhalation DIRECTED PRN 10/12/23 11/22/23 History aerosol inhaler (ProAir HFA) Shortness Of Breath denosumab 60 mg/mL subcutaneous 60 mg subcut .[id number] 10/12/23 11/22/23 History syringe (Prolia) verapamil 120 mg tablet,extended 120 mg PO QAM 10/12/23 11/22/23 History release pantoprazole 40 mg tablet,delayed 40 mg PO BID #60 tabs 10/16/23 11/22/23 Rx release Past Med/Surg History Problem List (Updated 11/22/23 @ 06:52 by Mauricio Carson MD) CHF (congestive heart failure) (Acute) Wheezing (Acute) Leukocytosis (Acute) Lower back pain (Acute) Acute UTI (Acute) Anemia (Acute) SOB (shortness of breath) (Acute) Acute UTI (Acute) LOPEZ (acute kidney injury) Influenza A virus subtype H1 2009 pandemic strain present (Acute) COPD with acute exacerbation (Acute) Acute respiratory failure with hypoxia (Acute) Parastomal hernia Influenza A Anemia (Acute) Physical deconditioning Acute on chronic respiratory failure Atrioventricular (AV) dissociation Third degree heart block UTI (urinary tract infection) FRANCIS (obstructive sleep apnea) Anemia (Acute) Weakness (Acute) GI (gastrointestinal bleed) (Acute) Dizziness (Acute) Weakness (Acute) FIGUEROA (dyspnea on exertion) (Acute) Vestibular neuritis Acute respiratory failure with hypoxia Colon polyp Chronic respiratory failure with hypoxia (Acute) PVD (peripheral vascular disease) PAF (paroxysmal atrial fibrillation) on xarelto/flecainide--follows with Dr. Savage Osteoporosis CKD (chronic kidney disease), stage III (Acute) HTN (hypertension) HLD (hyperlipidemia) Multiple pulmonary nodules Tobacco dependence due to cigarettes 5 per day Chronic bronchitis Colostomy in place COPD (chronic obstructive pulmonary disease) (Acute) inhaler daily/prn, nebulizer daily/prn; continuous oxygen 3L History of creation of ostomy 10/2018 Diverticulitis Medical History Osteoarthritis Chronic back pain Diverticular disease Skin cancer of nose 1970s--unsure which kind, removed in office On anticoagulant therapy xarelto daily On home oxygen therapy 4L N/C PRN Depression Macular degeneration Surgical History History of appendectomy taken out during resection of bowel History of colonoscopy History of tooth extraction History of cataract extraction with lens replacement bilateral History of tonsillectomy History of tubal ligation History of resection of large bowel (~10/2018) perforated bowel d/t diverticulitis History of creation of ostomy 10/2018 Family History Father Pancreatic cancer Mother Stroke Other No family history of adverse response to anesthesia Social History Smoking Status: Current every day smoker Tobacco Type: Cigarettes Age Started Using Tobacco: 22; Cigarettes Per Day: 1-2 cigarettes per day; Second Hand Exposure: No; Do You Dip or Chew Tobacco: No; Hx Alcohol Use: No Hx Substance Use: No Preferred Language: Yakut Communication Ability: Effective Electronics Utility Worker Required: No Beliefs That Will Affect Care: None marital status: / Current Living Situation: Alone Current Living Situation Comment: Lives home alone, family checks in often, and has home health Feels Safe at Home: Yes Safety Concerns: Feels Safe At This Time Assistive Devices: Glasses Physical Exam Physical Exam: Constitutional: Alert oriented x 3; not in distress Respiratory: Bilateral clear vesicular breath sound Cardiovascular: RRR, no murmur, no edema Vessels: no JVD or carotid bruit Chest: normal inspection of chest Abdomen: normal bowel sounds, soft, nontender, no hepatosplenomegaly Musculoskeletal: no cyanosis or clubbing, extremities motor strength 5/5 Skin: no rashes, warm and dry normal turgor Neurologic: PERRL, EOMI, accommodation nl, no face palsy, no dysarthria CN's II- XI intact bilaterally and moves all extremities Psychiatric: A+Ox3, euthymic affect Results & Data Results & Data Vital Signs (Past 12 Hours) Vital Signs Temp Pulse Pulse Resp BP BP Pulse Ox 11/22/23 16:25 86 17 95 11/22/23 13:26 128/79 11/22/23 12:28 73 19 97 11/22/23 12:21 74 20 125/54 L 98 11/22/23 10:51 11/22/23 10:30 79 25 H 93 11/22/23 08:54 65 11/22/23 08:42 69 22 96 11/22/23 08:30 74 26 H 153/69 H 96 11/22/23 08:00 72 27 H 136/77 95 11/22/23 07:28 71 26 H 139/69 96 11/22/23 07:27 36.7 C 71 22 134/68 95 11/22/23 06:15 62 22 145/56 H 100 11/22/23 06:01 67 22 95 11/22/23 05:52 74 19 94 11/22/23 04:54 69 11/22/23 04:54 11/22/23 04:54 11/22/23 04:54 78 36 H 99 11/22/23 04:54 78 36 H 143/60 H 99 11/22/23 04:54 36.9 C 78 36 H 143/60 H 99 O2 Del Method O2 Flow Rate 11/22/23 16:25 Nasal Cannula 3 11/22/23 13:26 11/22/23 12:28 Nasal Cannula 4 11/22/23 12:21 Nasal Cannula 4 11/22/23 10:51 2 11/22/23 10:30 11/22/23 08:54 11/22/23 08:42 Nasal Cannula 3 11/22/23 08:30 11/22/23 08:00 Nasal Cannula 4 11/22/23 07:28 11/22/23 07:27 Nasal Cannula 3 11/22/23 06:15 Nasal Cannula 3 11/22/23 06:01 11/22/23 05:52 11/22/23 04:54 11/22/23 04:54 Nasal Cannula 4 11/22/23 04:54 Nasal Cannula 4 11/22/23 04:54 Nasal Cannula 4 11/22/23 04:54 Nasal Cannula 4 11/22/23 04:54 Nasal Cannula 4
[2023-11-22] MEDS: BUDESONIDE 0.25 MG/2 ML VIAL (PULMICORT) INH SCH (19:36)
[2023-11-22] MEDS: CALCIUM 600MG + VIT D 400 IU TAB PO SCH (20:24)
[2023-11-22] MEDS: RIVAROXABAN 15 MG TAB PO SCH (20:24)
[2023-11-22] MEDS: PANTOprazole 40 MG TAB PO SCH (20:24)
[2023-11-22] MEDS: guaiFENesin 600 MG TABCR PO SCH (20:24)
[2023-11-22] MEDS: ACETAMINOPHEN 325 MG TAB PO PRN (20:27)
--- OUTSIDE RECORDS SUMMARY | 2023-11-22 22:26 | External Medical Summary | Summary of Care ---
Author Name Unknown Organization [facility] Address [address] [place] [address] Phone [phone] Care Team Providers Care Pleater Hand Name Role Phone Tameka Hooper MD Primary Care Prov ider Reason for Visit * Reason Onset Date Comments Procedure 11/01/2023 Encounter Details Date Type Department Care Team (Late st Contact Info) Description 11/01/2023 Telephone Access Center, [facility] [address] [facility] *DO NOT REMOVE THIS DEPARTMENT* [place] [address] Services, Scheduling [address] [place] [address] Procedure Allergies Active Allergy Reactions Criticality Noted Date Comments Amoxicillin Rash 02/07/2020 Bactrim Rash 12/15/2011 Ciprofloxacin Rash 12/15/2011 Diltiazem Rash 05/29/2019 Piroxicam Rash 12/15/2011 Cephalexin Rash 12/15/2011 Meloxicam Rash 05/29/2019 Other reaction(s): Other Cilostazol Rash,Unknown 12/15/2011 Sulfamethoxazole High 01/19/2023 Other Reaction(s): Rash Trimethoprim High 01/19/2023 Other Reaction(s): Rash documented as of this encounter (statuses as of 11/01/2023) Medications Medication Sig Dispensed Refills Start Date [...] for wheezing 3 mL 0 09/13/2023 Active Mesalamine 1.2 GM Oral [...] TWICE DAILY. 60 Each 0 09/13/2023 Active Solifenacin Succinate 5 MG Oral Tablet (VESIcare)Indicatio ns:Urge incontinence,Urinar y frequency,Urinary urgency,Mixed incontinence Take 1 Tablet by mouth in the morning. 30 Tablet 0 09/13/2023 Active Calcium Carb-Cholecalcifero l 500-10 MG-MCG Oral Tablet Take by mouth. 0 Active Vitamin C 500 MG Oral Tablet Chewable Take 1 Tablet by mouth in the morning. 90 Tablet 0 10/23/2023 Active Verapamil HCl ER 120 MG Oral Tablet Extended Release (Isoptin SR) Take 1 Tablet by mouth in the morning. 90 Tablet 1 10/23/2023 Active Rivaroxaban 15 MG Oral Tablet (Xarelto)Indication s:Chronic atrial fibrillation (HCC) Take 1 Tablet by mouth daily with dinner. 90 Tablet 1 10/23/2023 Active Nystatin 797579 UNIT/GM External Powder (Nystop) Apply topically to affected area 3 times a day. Apply to affected areas 60 g 1 10/27/2023 Active Hospital, Clinic, or Other Facility Administered Medication Ordered Dose Route Frequency Start Date End Date Status Denosumab (Prolia) subcut inj 60 mgIndications:Senile osteoporosis 60 mg SC [id number] 10/23/2023 04/19/2024 Active documented as of this encounter (statuses as of 11/01/2023) Active Problems Problem Noted Date Diagnosed Date [...] as of this encounter (statuses as of 11/01/2023) Resolved Problems Problem Noted Date Diagnosed Date [...] as of this encounter (statuses as of 11/01/2023) Immunizations Name Administration Dates Next Due COVID-19 [...] Telephone Encounter - More Rosa OSA - 11/01/2023 4:34 PM EDT Spoke to pt and she is agreeable to [facility] OR. * Telephone Encounter - Kaya Alonso OSA - 11/01/2023 3:27 PM EDT Patient would like a call to discuss current scheduling of procedure at [facility]. Please call patient todiscuss. She thought she was scheduled at [facility] and not aware of the 11/24/23 procedure documented in this encounter Plan of Treatment Upcoming Encounters Date Type Department Care Team (Latest Contact Info) Description 11/09/2023 2:00 PM EDT [facility] Visit [facility], [facility] [address] [facility] [place] [address] Jodi Smallwood RN [address] [place] [address] 11/13/2023 11:00 AM EDT Home Visit [facility], [facility] [address] [place] [address] Derick Miner PA-C [address] [place] [address] 11/24/2023 8:35 AM EDT Hospital Encounter OR [facility], Operating Room, [facility] - 4th Floor [address] [facility] [place] [address] Joshua Orantes MD [address] [place] [address] 11/24/2023 8:35 AM EDT - 11/24/2023 9:50 AM EDT Surgery OR [facility], Operating Room, [facility] - 4th Floor [address] [facility] [place] [address] Joshua Orantes MD [address] [place] [address] COLONOSCOPY FLEXIBLE PROXIMAL DIAGNOSTIC Scheduled Procedures Name Priority Associated Diagnoses Date/Ti [...] SMARTSET #[id number]) 10/08/2023 CKD PHOS USE SMARTSET 39255 12/28/2023/12/2022, 04/26/2022, 11/23/2021, Additional history exists Influenza Vaccine (FLU shot) (Season Ended) 2024 GFR 03/15/2024 09/13/2023, 08/31, 09/09/2023, Additional history exists DXA Scan 08/01/2024 08/01/2022, 07/05, 07/07/2020, Additional history exists Albumin/Creatinine Ratio 09/18/2024 024, 08/15/2022, 02/09/2021 CKD HGB USE SMARTSET 09030 09/18/202409/18, 09/11/2023, 09/08/2023, Additional history exists O2 ASSESSMENT COMPLETED IN PAST YEAR FOR COPD 10/25/2024 10/26/2023 Colonoscopy 07/31/2028 07/31/2023, 02/01, 02/23/2022, Additional history exists DTaP,Tdap,and Td Vaccines (2 - Td or Tdap) 08/07/2030 08/07/2020 (Not indicated), 09/01/1998 Pneumococcal Vaccine: 65+ Years Completed 05/16/2016, 12/01/2014, 12/01/2013, Additional history exists Zoster Vaccines Discontinued 12/28/2022 RETIRED - COLONOSCOPY-EVERY 5 YRS AGES 18-100 Discontinued 07/31/2023, 02/23/2022, 02/23/2022, Additional history exists VITAMIN D LEVEL ONCE IN A LIFETIME-USE SMARTSET# [id number] Completed 09/19/2023, 12/27/2022, 08/12/2022, Additional history exists [...] patient or by statute hierarchy) Care Teams Pleater Hand Relationship Specialty Start Date End Date Tameka Hooper MD [address] [place] [address] [place] [address] PCP - General Family Medicine 05/29/19 documented as of this encounter
--- OUTSIDE RECORDS SUMMARY | 2023-11-22 22:26 | External Medical Summary | Summary of Care ---
Author Name Unknown Organization [facility] Address [address] [place] [address] Phone [phone] Care Team Providers Care Cosmetics Supervisor Name Role Phone Tameka Hooper MD Primary Care Prov ider Reason for Visit * Reason Onset Date Comments Med Request 11/20/2023 Encounter Details Date Type Department Care Team (Late st Contact Info) Description 11/20/2023 Telephone Family Medicine [address] [phone] Tameka Hooper MD [address] [place], [place] [address] [address] Med Request Allergies Active Allergy Reactions Criticality Noted Date Comments Amoxicillin Rash 02/07/2020 Bactrim Rash 12/15/2011 Ciprofloxacin Rash 12/15/2011 Diltiazem Rash 05/29/2019 Piroxicam Rash 12/15/2011 Cephalexin Rash 12/15/2011 Meloxicam Rash 05/29/2019 Other reaction(s): Other Cilostazol Rash,Unknown 12/15/2011 Sulfamethoxazole High 01/19/2023 Other Reaction(s): Rash Trimethoprim High 01/19/2023 Other Reaction(s): Rash documented as of this encounter (statuses as of 11/21/2023) Medications Medication Sig Dispensed Refills Start Date End Date Status oxygen IN GAS Use 3 L/min(Oxygen) as directed. Use with activity and sleep and at rest if 02 sat <92% Active Prolia 60 MG/ML Subcutaneous Solution Prefilled Syringe Inject 60 mg under the skin every 6 months. 1 mL 03/15/2021 Active CPAP every night at bedtime. Active Compressor NebulizerIndication s:COPD, moderate (HCC) Inhale [...] SHORTNESS OF BREATH OR WHEEZING. 18 g 09/13/2023 Active Anoro Ellipta 62.5-25 MCG/ACT Inhalation Aerosol Powder Breath ActivatedIndication s:COPD, moderate (HCC) Inhale 1 Puff by mouth daily. 1 puff daily 30 Each 09/13/2023 Active Budesonide 0.25 MG/2ML Inhalation Suspension [...] weight gain. 90 Tablet 3 09/13/2023 Active Ipratropium-Albuter ol 0.5-2.5 (3) MG/3ML Inhalation Solution (Duoneb)Indications :COPD, moderate (HCC) Inhale 3 mL via nebulizer every 4 hours as needed for Wheezing. 3ml vial in nebuilzer every four hours as needed for wheezing 3 mL 09/13/2023 Active Mesalamine 1.2 GM Oral Tablet Delayed Release (Lialda)Indications :IBD (inflammatory bowel disease) Take 3 Tablets by mouth in the morning. 90 Tablet 09/13/2023 Active Pantoprazole Sodium 40 MG Oral Tablet Delayed Release (Protonix)Indicatio ns:IBD (inflammatory bowel disease) Take 1 Tablet by mouth in the morning. 30 Tablet 09/13/2023 Active PreserVision AREDS 2 Oral Tablet Chewable Take 1 Tablet by mouth daily. 90 Tablet 09/13/2023 Active Restasis 0.05 % Ophthalmic Emulsion Instill 1 Drop into both eyes in the morning and 1 Drop before bedtime. INSTILL 1 DROP INTO EACH EYE TWICE DAILY. 60 Each 09/13/2023 Active Solifenacin Succinate 5 MG Oral Tablet (VESIcare)Indicatio ns:Urge incontinence,Urinar y frequency,Urinary urgency,Mixed incontinence Take 1 Tablet by mouth in the morning. 30 Tablet 09/13/2023 Active Calcium Carb-Cholecalcifero l 500-10 MG-MCG Oral Tablet Take by mouth. Active Vitamin C 500 MG Oral Tablet Chewable Take 1 Tablet by mouth in the morning. 90 Tablet 10/23/2023 Active Verapamil HCl ER 120 MG Oral Tablet Extended Release (Isoptin SR) Take 1 Tablet by mouth in the morning. 90 Tablet 1 10/23/2023 Active Rivaroxaban 15 MG Oral Tablet (Xarelto)Indication s:Chronic atrial fibrillation (HCC) Take 1 Tablet by mouth daily with dinner. 90 Tablet 1 10/23/2023 Active Nystatin 231972 UNIT/GM External Powder (Nystop) Apply topically to affected area 3 times a day. Apply to affected areas 60 g 1 10/27/2023 Active Hospital, Clinic, or Other Facility Administered Medication Ordered Dose Route Frequency Start Date End Date Status Denosumab (Prolia) subcut inj 60 mgIndications:Senile osteoporosis 60 mg SC [id number] 10/23/2023 04/19/2024 Active documented as of this encounter (statuses as of 11/21/2023) Active Problems Problem Noted Date Diagnosed Date Anemia 11/13/2023 Last Assessment & Plan: Anemia at recent [facility] admission, received 1 unit PRBC H/o bleeding gastric ulcer Continues PPI Schedule for colonoscopy and EGD 11/23 Check cbc next week COPD, group C, by GOLD 2017 classification 10/08 Overview: Per COPD GOLD Classification Last Assessment & Plan: "RED FLAG" COPD symptoms: Increased dyspnea on exertion ("I can't walk to the kitchen or up the stairs without coughing and wheezing", "My chest feels tight any time I move") Increased shortness of breath at rest ("I struggle to breathe even when watching TV", "I have to wear or turn up my oxygen just when I'm sitting on the couch") Cough ("I get a different kind of cough than what I' have every day") Wheezing ("You can hear the whistling across the room") Medication Regimen Class D - LABA-LAMA Combination Inhaler Other: budesonide nebs Remote Patient Monitoring Vendor: No Connected RPM Device(s): Traditional Scale Traditional Pulse Ox Self-Management plan High frequency nebulizer treatments every 4-6 hours around the clock Budesonide (Pulmicort) nebulizer treatments twice daily Begin wearing supplemental oxygen continuously until symptoms return to baseline Exacerbation plan Solumedrol 40mg IM/IV Chest Xray Additional Comments: Recommended duoneb now and q4hrs prn Not currently using budesonide, reviewed that this should be bid routinely Hypertensive heart and kidne y disease with [...] beta-dewayne secondary to unknown SUE Inhibitor/ARB Therapy: not currently on due to LOPEZ Diuretic therapy: Lasix SGLT2 Inhibitor: No Current SGLT2 (Describe in the Comments) Remote Patient Monitoring Vendor: No Connected RPM Device(s): Traditional Scale Self - Management Plan Double dose of Furosemide for 3 days Exacerbation Plan Anticipated IV Lasix dose: 40 mg BMP Chest X-Ray Additional Comments: Euvolemic today BP stable Bilateral pleural effusion 09/06/2023 Interstitial lung disease [...] Hypoparathyroidism 09/30/2021 Chronic hypoxemic respiratory failure 09/30/2021 Overview: On continuous supplemental o2 3lpm Last Assessment & Plan: On continuous supplemental [...] as of this encounter (statuses as of 11/21/2023) Resolved Problems Problem Noted Date Diagnosed Date [...] as of this encounter (statuses as of 11/21/2023) Immunizations Name Administration Dates Next Due COVID-19 [...] Encounter - Mary Lou Macdonald RN - 11/21/2023 11:58 AM EDT We will discuss at visit * Telephone Encounter - Kristin Boyle CPhT - 11/20/2023 3:34 PM EDT Patient calling requesting refills for Pantoprazole Sodium 40 MG Oral Tablet Delayed Release (Protonix) . Upon chart review, medication was last prescribed by hospital. Pt did schedule a hospital follow up visit. Please advise if you wish to continue this therapy for the patient. Thank you, Kristin Boyle [employer]cycle [employer] [facility] (Formerly [facility]) 11/20/2023,3:35 PM documented in this encounter Plan of Treatment Upcoming Encounters Date Type Department Care Team (Late st Contact Info) Description 11/22/2023 7:05 AM EDT Laboratory Lab [facility] [address] [facility] [place] [address] [facility] Draw [address] [place] [address] Health Maintenance Due Date Last Done Comments DISCUSS TOBACCO CESSATION (REFER TO SMARTSET #3291) 1940 COVID-19 Vaccine ( season) 2023 06/01/2021, 10/20/2020, 09/15/2020 *BISPHONATE OR OTHER ACCEPTABLE MEDICATION NEEDED FOR OSTEOPOROSIS (REFER TO SMARTSET #1146) 10/08/2023 CKD PHOS USE SMARTSET 72935 12/28/202312/02, 04/26/2022, 11/23/2021, Additional history exists Influenza Vaccine (FLU shot) (Season Ended) 2024 GFR 03/15/2024 09/13/2023, 08/31, 09/09/2023, Additional history exists DXA Scan 08/01/2024 08/01/2022, 07/05, 07/07/2020, Additional history exists Albumin/Creatinine Ratio 09/18/2024 024, 08/15/2022, 02/09/2021 CKD HGB USE SMARTSET 02072 09/18/202409/18, 09/11/2023, 09/08/2023, Additional history exists O2 ASSESSMENT COMPLETED IN PAST YEAR FOR COPD 11/12/2024 11/13/2023 Colonoscopy 07/31/2028 07/31/2023, 02/01, 02/23/2022, Additional history exists DTaP,Tdap,and Td Vaccines (2 - Td or Tdap) 08/07/2030 08/07/2020 (Not indicated), 09/01/1998 Pneumococcal Vaccine: 65+ Years Completed 05/16/2016, 12/01/2014, 12/01/2013, Additional history exists Zoster Vaccines Discontinued 12/28/2022 RETIRED - COLONOSCOPY-EVERY 5 YRS AGES 18-100 Discontinued 07/31/2023, 02/23/2022, 02/23/2022, Additional history exists VITAMIN D LEVEL ONCE IN A LIFETIME-USE SMARTSET# [id number] Completed 09/19/2023, 12/27/2022, 08/12/2022, Additional history exists [...] patient or by statute hierarchy) Care Teams Cosmetics Supervisor Relationship Specialty Start Date End Date Tameka Hooper MD [address] [place] [address] [place] [phone] PCP - General Family Medicine 05/29/19 documented as of this encounter
--- OUTSIDE RECORDS SUMMARY | 2023-11-22 22:26 | External Medical Summary | Summary of Care ---
Author Name Unknown Organization [facility] Address [address] [place] [id number] Phone [phone] Care Team Providers Care Coloring Room Worker Name Role Phone Tameka Hooper MD Primary Care Prov ider Reason for Referral * Ancillary Services (Within 10 days (routine)) - Authorized Specialty Diagnoses / Procedures Referred By Contac t Referred To Contact Orientor Diagnoses Anemia, unspecified type Derick Miner PA-C [address] [place] [address] Referral ID Status Reason Start Date Expiration Date Visits Requested Visits Authorized [id number] Authorized Ancillary Services Required 11/13/2023 999 999 Question Answer Referral Priority Within 10 days (routine) Where should this appointment be scheduled? [facility] Comments Is Patient homebound? Yes All sections of this form must be filled out completely. Forms with missing or illegible information will be returned for completion. This form should not be modified in any way. Forms that have been modified will be returned. This form may not be submitted by a home health agency. It must be complete and submitted by the ordering provider. One full business day lead time is required and service will be scheduled based on the next service day for the [facility] Home Phlebotomy does not service every geographical location on a daily basis. Contact [facility] Client Services at to find out service days for a specific location. Medical Laboratory [address] [place] [address] [phone] Gopal Hansen M.D. Director and Market Research Worker Patient Name: Eliazar Beaulieu : 1940 Sex: female Address [address] [place], [place] [address] [phone] Provider: None? Tameka Mao MD? Diagnosis: J96.11 Chronic hypoxemic respiratory failure (HCC) (primary encounter diagnosis) J44.9 COPD, group C, by GOLD 2017 classification (HCC) I13.0,I50.32,N18.32 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 chronic kidney disease (HCC) I48.0 Paroxysmal atrial fibrillation (HCC) D64.9 Anemia, unspecified type Tests Requested CBC - week of 11/18 Encounter Details Date Type Department Care Team (Late st Contact Info) Description 11/13/2023 11:00 AM EDT Home Visit [facility] at [facility] [address] [place] [place] [address] Derick Miner PA-C [address] [place] [address] Chronic hypoxemic respiratory failure (HCC)*; COPD, group C, by GOLD 2017 classification ([facility]); 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 chronic kidney disease (HCC); Paroxysmal atrial fibrillation (HCC); Anemia, unspecified type Allergies Active Allergy Reactions Criticality Noted Date Comments Amoxicillin Rash 02/07/2020 Bactrim Rash 12/15/2011 Ciprofloxacin Rash 12/15/2011 Diltiazem Rash 05/29/2019 Piroxicam Rash 12/15/2011 Cephalexin Rash 12/15/2011 Meloxicam Rash 05/29/2019 Other reaction(s): Other Cilostazol Rash,Unknown 12/15/2011 Sulfamethoxazole High 01/19/2023 Other Reaction(s): Rash Trimethoprim High 01/19/2023 Other Reaction(s): Rash documented as of this encounter (statuses as of 11/13/2023) Medications Medication Sig Dispensed Refills Start Date [...] dinner. 90 Tablet 1 10/23/2023 Active Nystatin 901557 UNIT/GM External Powder (Nystop) Apply topically to affected area 3 times a day. Apply to affected areas 60 g 1 10/27/2023 Active Hospital, Clinic, or Other Facility Administered Medication Ordered Dose Route Frequency Start Date End Date Status Denosumab (Prolia) subcut inj 60 mgIndications:Senile osteoporosis 60 mg SC [id number] 10/23/2023 04/19/2024 Active documented as of this encounter (statuses as of 11/13/2023) Active Problems Problem Noted Date Diagnosed Date Anemia 11/13/2023 Last Assessment & Plan: Anemia at recent [facility] admission, received 1 unit PRBC H/o bleeding [...] as of this encounter (statuses as of 11/13/2023) Resolved Problems Problem Noted Date Diagnosed Date [...] Prediabetes protocol Other specified peripheral vascular diseases 02/05/202 1 08/12/2022 Age-related osteoporosis wit hout current [...] as of this encounter (statuses as of 11/13/2023) Immunizations Name Administration Dates Next Due COVID-19 [...] Sign Reading Time Taken Comments Blood Pressure 118/66 11/13/2023 12:12 PM EDT Pulse - - Temperature - - Respiratory Rate - - Oxygen Saturation 96% 11/13/2023 12:12 PM EDT 3L Inhaled Oxygen Concentration - - Weight - - Height - - Body Mass Index - - documented in this encounter Progress Notes * Derick Miner PA-C - 11/13/2023 10:31 AM EDT Images from the original note were not included. [facility] at Home Problem Oriented Charting Provider Visit Date: 11/13/2023 Time: 10:31 AM [facility] Sub-Program: No data was found Assessment and Plan #1 Chronic hypoxemic respiratory failure (HCC) (Primary) Overview: On continuous supplemental o2 3lpm #2 COPD, group C, by GOLD 2017 classification (HCC) Overview: Per COPD GOLD Classification Assessment & Plan: "RED FLAG" COPD symptoms: [...] reviewed that this should be bid routinely #3 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 chronic kidney disease (HCC) Assessment & Plan: "RED FLAG" HF Symptoms: [...] X-Ray Additional Comments: Euvolemic today BP stable Update bmp next week #4 Paroxysmal atrial fibrillation (HCC) Assessment & Plan: Rate controlled Xarelto resumed #5 Anemia, unspecified type Assessment & Plan: Anemia at recent [facility] admission, received 1 unit PRBC H/o bleeding gastric ulcer Continues PPI Schedule for colonoscopy and EGD 11/23 Additional Medical Decision Making: Patient lives alone in mobile home No longer drives Son and DIL live about 1 mile away and stop frequently Also has caregiver mon and thurs 1-5pm [place] currently managing medbox, but patient unsure for how long Has some wheezing today, recommended using duonebs now and q4 hrs prn Also reviewed budesonide nebs, should be using bid routinely Patient to notify provider of any increase sob, cough Scheduled appointments in the next 60 days: Future Appointments-next 60 days Date/Time Provider Specialty Dept Phone 11/13/2023 11:00 AM Derick Miner PA-C [facility] [phone] A total of 30 minutes was spent face to face (via video-based telemedicine if designated as a telemedicine visit) Subjective Subjective Is this a Telemedicine Visit? No, this is an Home Visit. Reason For [facility] Visit: Follow-Up Current Concerns: Eliazar Beaulieu is a 83 year old female seen today for a [facility] provider visit. PMH includes chronic hypoxemic respiratory failure, COPD, FRANCIS, afib, HTN, CKD3, dyslipidemia, IBD s/p colostomy 07/25-08/05/23 - [facility] - GI bleed, weakness, anemia, transfusion 08/06-08/11/23 - [facility] - acute on chronic respiratory failure, COPD, CHF 08/11-08/20/23 - [facility] 08/28-08/31/23 - [facility] - acute on chronic resp failure, Flu A, CHF -09/13/23 - [facility] 10/11-10/16/23 - [facility] - [facility], anemia, s/p 1 unit PRBC Today's concerns are: Things are "going pretty good" Reports breathing is at baseline Using anoro ellipta in the morning and duonebs at bedtime On continuous o2 at 3lpm Has budesonide, but denies using Has occasional cough, reports this is non productive and chronic Denies fever/chills, chest pain Recent admission as above for [facility] and anemia She is no longer taking lisinopril [facility] filling pill boxes She also has caregiver assistance mon and th from 1-5pm for showers, cleaning, general householdchores Additional Objective Objective Vitals: 11/13/23 1212 SpO2: 96% BP: 118/66 Last Weights: Wt Readings from Last 3 Encounters: 10/19/23 71.2 kg (157 lb) 09/19/23 71.8 kg (158 lb 3.2 oz) 08/24/23 78.5 kg (173 lb) Last BPs: BP Readings from Last 4 Encounters: 11/13/23 118/66 10/26/23 120/50 10/19/23 100/50 09/27/23 118/50 General: alert and no distress Neuro: alert & oriented x 3 with fluent speech Heart: regular rate & rhythm and no murmur Lungs: coarse sounds heard, decreased breath sounds, expiratory wheezes bilaterally Abdomen: abdomen soft, non-tender, obese, normal bowel sounds, and no rebound or guarding Ext: Normal extremities without edema Lab Review: I have reviewed the following results: [facility] results reviewed Imaging results in the last 6 months [...] results for input(s): "HGBA1C" in the last 07907 hours. Derick Miner PA-C 10:31 AM *Communication sent to PCP (via [facility] if non-[facility]), [facility]/Population Health Care Team members,relevant Specialty Care Physicians* documented in this encounter Miscellaneous Notes * Assessment & Plan Note - Derick Miner PA-C - 11/13/2023 12:17 PM EDT Associated Problem(s): Anemia Anemia at recent [facility] admission, received 1 unit PRBC H/o bleeding gastric ulcer Continues PPI Schedule for colonoscopy and EGD 11/23 Check cbc next week * Assessment & Plan Note - Derick Miner PA-C - 11/13/2023 12:12 PM EDT Associated Problem(s): Paroxysmal atrial fibrillation (HCC) Rate controlled Xarelto resumed * Assessment & Plan Note - Derick Miner PA-C - 11/13/2023 12:12 PM EDT Associated Problem(s): Hypertensive heart and kidney [...] X-Ray Additional Comments: Euvolemic today BP stable * Assessment & Plan Note - Derick Miner PA-C - 11/13/2023 12:02 PM EDT Associated Problem(s): COPD, group C, by GOLD 2017 classification ([facility]) "RED FLAG" COPD symptoms: Increased dyspnea on [...] reviewed that this should be bid routinely documented in this encounter Plan of Treatment Upcoming Encounters Date Type Department Care Team (Latest Contact Info) Description 11/22/2023 7:05 AM EDT Laboratory Lab Mobile [facility]lebotomy [facility] [address] [facility] [place] [address] [facility] Draw [address] [facility] [place] [address] 11/24/2023 8:35 AM EDT Hospital Encounter OR [facility], Operating Room, [facility] - 4th Floor [address] [place] [address] Joshua Orantes MD [address] [place] [address] 11/24/2023 8:35 AM EDT - 11/24/2023 9:50 AM EDT Surgery OR [facility], Operating Room, [facility] - 4th Floor [address] [place] [address] Joshua Orantes MD [address] [place] [address] COLONOSCOPY FLEXIBLE PROXIMAL DIAGNOSTIC Scheduled Orders Name Type Priority Associated Diagnoses Orde r Schedule CBC WITH WBC DIFFERENTIAL Lab Routine Anemia, unspecified type Expected: 11/20/2023 (Approximate), Expires: 11/12/2024 BASIC METABOLIC PANEL Lab Routine 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 chronic kidney disease (HCC) Expected: 11/20/2023 (Approximate), Expires: 11/12/2024 Scheduled Procedures Name Priority Associated Diagnoses Date/Ti me COLONOSCOPY FLEXIBLE PROXIMA L DIAGNOSTIC History of colonic polyps Gastric ulcer 11/24/2023 8:35 AM EDT ESOPHAGOGASTRODUODENOSCOPY ( EGD), FLEXIBLE, TRANSORAL, DIAGNOSTIC History of colonic polyps Gastric ulcer 11/24/2023 8:35 AM EDT Scheduled Referrals Name Type Priority Associated Diagnoses Orde r Schedule HOME PHLEBOTOMY REFERRAL OP Referral Within 10 days (routine) Anemia, unspecified type Ordered: 11/13/2023 Health Maintenance Due Date Last Done Comments DISCUSS TOBACCO CESSATION (REFER TO SMARTSET #3291) 1940 COVID-19 Vaccine ( season) 2023 06/01/2021, 10/20/2020, 09/15/2020 *BISPHONATE OR OTHER ACCEPTABLE MEDICATION NEEDED FOR OSTEOPOROSIS (REFER TO SMARTSET #1146) 10/08/2023 CKD PHOS USE SMARTSET 94825 12/28/202312/02, 04/26/2022, 11/23/2021, Additional history exists Influenza Vaccine (FLU shot) (Season Ended) 2024 GFR 03/15/2024 09/13/2023, 08/31, 09/09/2023, Additional history exists DXA Scan 08/01/2024 08/01/2022, 07/05, 07/07/2020, Additional history exists Albumin/Creatinine Ratio 09/18/2024 024, 08/15/2022, 02/09/2021 CKD HGB USE SMARTSET 01516 09/18/202409/18, 09/11/2023, 09/08/2023, Additional history exists O2 [...] D LEVEL ONCE IN A LIFETIME-USE SMARTSET# [id number] Completed 09/19/2023, 12/27/2022, 08/12/2022, Additional history exists [...] failure (HCC)- Primary Chronic respiratory failure COPD, group C, by GOLD 2017 classification (HCC) 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 chronic kidney disease (HCC) Paroxysmal atrial fibrillation (HCC) Atrial fibrillation Anemia, unspecified type History of colonic polyps Personal history of [...] patient or by statute hierarchy) Care Teams Coloring Room Worker Relationship Specialty Start Date End Date Tameka Hooper MD [address] [place] [address] [place] [phone] PCP - General Family Medicine 11/27/19 documented as of this encounter
--- OUTSIDE RECORDS SUMMARY | 2023-11-22 22:26 | External Medical Summary | Summary of Care ---
Author Name Unknown Organization [facility] Address [address] [place] [address] Phone [phone] Care Team Providers Care Asp Net Developer Name Role Phone Tameka Hooper MD Primary Care Prov ider Reason for Visit * Reason Onset Date Comments Appointment Canceled 11/15/2023 Encounter Details Date Type Department Care Team (Late st Contact Info) Description 11/15/2023 Telephone ENDO [facility], Endoscopy [address] [phone] Joshua Orantes MD [address] [place] [address] Appointment Canceled Allergies Active Allergy Reactions Criticality Noted Date Comments Amoxicillin Rash 02/07/2020 Bactrim Rash 12/15/2011 Ciprofloxacin Rash 12/15/2011 Diltiazem Rash 05/29/2019 Piroxicam Rash 12/15/2011 Cephalexin Rash 12/15/2011 Meloxicam Rash 05/29/2019 Other reaction(s): Other Cilostazol Rash,Unknown 12/15/2011 Sulfamethoxazole High 01/19/2023 Other Reaction(s): Rash Trimethoprim High 01/19/2023 Other Reaction(s): Rash documented as of this encounter (statuses as of 11/15/2023) Medications Medication Sig Dispensed Refills Start Date [...] dinner. 90 Tablet 1 10/23/2023 Active Nystatin [id number] UNIT/GM External Powder (Nystop) Apply topically to affected area 3 times a day. Apply to affected areas 60 g 1 10/27/2023 Active Hospital, Clinic, or Other Facility Administered Medication Ordered Dose Route Frequency Start Date End Date Status Denosumab (Prolia) subcut inj 60 mgIndications:Senile osteoporosis 60 mg SC [id number] 10/23/2023 04/19/2024 Active documented as of this encounter (statuses as of 11/15/2023) Active Problems Problem Noted Date Diagnosed Date Anemia 11/13/2023 Last Assessment & Plan: Anemia at recent [facility] admission, received 1 unit PRBC H/o bleeding [...] as of this encounter (statuses as of 11/15/2023) Resolved Problems Problem Noted Date Diagnosed Date [...] as of this encounter (statuses as of 11/15/2023) Immunizations Name Administration Dates Next Due COVID-19 [...] encounter Miscellaneous Notes * Telephone Encounter - Corina Richardson OSA - 11/15/2023 9:52 AM EDT Pt was cedric'd for colon/egd 11/24/23 at [facility] for hx colon polyps and gastric ulcers. Per [facility] with PAT, pt cx does not want to have done. documented in this encounter Plan of Treatment Upcoming Encounters Date Type Department Care Team (Late st Contact Info) Description 11/22/2023 7:05 AM EDT Laboratory Lab Mobile Phlebotomy [facility] [address] [employer] [address] [facility] Mobile Home Draw [address] [employer] [address] Health Maintenance Due Date Last Done Comments DISCUSS TOBACCO CESSATION (REFER TO SMARTSET #3291) 1940 COVID-19 Vaccine ( season) 2023 06/01/2021, 10/20/2020, 09/15/2020 *BISPHONATE OR OTHER ACCEPTABLE MEDICATION NEEDED FOR OSTEOPOROSIS (REFER TO SMARTSET #1146) 10/08/2023 CKD PHOS USE SMARTSET 55157 12/28/202312/02, 04/26/2022, 11/23/2021, Additional history exists Influenza Vaccine (FLU shot) (Season Ended) 2024 GFR 03/15/2024 09/13/2023, 08/31, 09/09/2023, Additional history exists DXA Scan 08/01/2024 08/01/2022, 07/05, 07/07/2020, Additional history exists Albumin/Creatinine Ratio 09/18/2024 024, 08/15/2022, 02/09/2021 CKD HGB USE SMARTSET 53145 09/18/202409/18, 09/11/2023, 09/08/2023, Additional history exists O2 [...] D LEVEL ONCE IN A LIFETIME-USE SMARTSET# [id number] Completed 09/19/2023, 12/27/2022, 08/12/2022, Additional history exists [...] patient or by statute hierarchy) Care Teams Asp Net Developer Relationship Specialty Start Date End Date Tameka Hooper MD [address] [place] [address] [place] [address] PCP - General Family Medicine 05/29/19 documented as of this encounter
--- OUTSIDE RECORDS SUMMARY | 2023-11-22 22:26 | External Medical Summary | Summary of Care ---
Author Name Unknown Organization [facility] Address [address] [facility] [place] [address] Phone [phone] Care Team Providers Care Skin Care Instructor Name Role Phone Tameka Hooper MD Primary Care Prov ider Reason for Visit * Reason Comments [facility]: Maintenance Encounter Details Date Type Department Care Team (Late st Contact Info) Description 10/26/2023 5:30 PM EDT [facility] [address] [place] [address] Jodi Smallwood, STANISLAW [address] [place] [address] Allergies Active Allergy Reactions Criticality Noted Date Comments Amoxicillin Rash 02/07/2020 Bactrim Rash 12/15/2011 Ciprofloxacin Rash 12/15/2011 Diltiazem Rash 05/29/2019 Piroxicam Rash 12/15/2011 Cephalexin Rash 12/15/2011 Meloxicam Rash 05/29/2019 Other reaction(s): Other Cilostazol Rash,Unknown 12/15/2011 Sulfamethoxazole High 01/19/2023 Other Reaction(s): Rash Trimethoprim High 01/19/2023 Other Reaction(s): Rash documented as of this encounter (statuses as of 10/27/2023) Medications Medication Sig Dispensed Refills Start Date [...] (3) MG/3ML Inhalation Solution (Duoneb)Indications :COPD, moderate ([facility]) Inhale 3 mL via nebulizer every 4 [...] dinner. 90 Tablet 1 10/23/2023 Active Nystatin 740289 UNIT/GM External Powder (Nystop) Apply topically to affected area 3 times a day. Apply to affected areas 60 g 1 10/27/2023 Active Hospital, Clinic, or Other Facility Administered Medication Ordered Dose Route Frequency Start Date End Date Status Denosumab (Prolia) subcut inj 60 mgIndications:Senile osteoporosis 60 mg SC [id number] 10/23/2023 04/19/2024 Active documented as of this encounter (statuses as of 10/27/2023) Active Problems Problem Noted Date Diagnosed Date [...] as of this encounter (statuses as of 10/27/2023) Resolved Problems Problem Noted Date Diagnosed Date [...] as of this encounter (statuses as of 10/27/2023) Immunizations Name Administration Dates Next Due COVID-19 [...] Sign Reading Time Taken Comments Blood Pressure 120/50 10/26/2023 4:47 PM EDT Pulse 72 10/26/2023 4:47 PM EDT Temperature 36.4 C (97.5 F) 10/26/2023 4:47 PM ED T Respiratory Rate 18 10/26/2023 4:47 PM EDT Oxygen Saturation 96% 10/26/2023 4:47 PM EDT Inhaled Oxygen Concentration - - Weight - - Height - - Body Mass Index - - documented in this encounter Progress Notes * Jodi Smallwood RN - 10/26/2023 4:06 PM EDT [facility] Visit Date: 10/26/2023 Time: 4:07 PM Name: Eliazar Beaulieu : 1940 Current Concerns: Patient seen for [place]#1- s/p [facility] stay 10/11-10/15 related to [facility], Acute on chronic anemia- Hemoglobindropped to 6.5- received 1 unit PRBC's. Lisinopril stopped. Protonix increased to 40mg BID x 1 month and f/u with GI for EGD. Has [facility] Caregiver present for visit- two days a week Reports feeling improved VS wnl Lungs clear bilaterally Sob with exertion Nonpitting bilateral ankle edema Voiding without difficulty Bowels wnl- per report Appetite good Taking fluids well. Redness noted to abd folds, under colostomy appliance and under breasts- TT to Derick Miner PA-C-order for Nystop powder to [facility] pharmacy Problems/Symptoms: Review of Systems Constitutional: Negative. HENT: Negative. Respiratory: Positive for shortness of breath. Cardiovascular: Positive for leg swelling. Gastrointestinal: Negative. Genitourinary: Negative. Musculoskeletal: Positive for gait problem. Skin: Negative. Hematological: Negative. Psychiatric/Behavioral: Negative. Physical Exam: BP 120/50 (BP Site: Right Arm, BP Position: Sitting, BP Cuff Size: Regular) | Pulse 72 | Temp 36.4 C (97.5 F) (Tympanic) | Resp 18 | SpO2 96% Pain 0 Physical Exam Constitutional: Appearance: Normal appearance. Cardiovascular: Rate and Rhythm: Normal rate and regular rhythm. Pulses: Normal pulses. Heart sounds: Normal heart sounds. Pulmonary: Effort: Pulmonary effort is normal. Breath sounds: Normal breath sounds. Abdominal: General: Bowel sounds are normal. Palpations: Abdomen is soft. Musculoskeletal: General: Normal range of motion. Right lower leg: Edema present. Left lower leg: Edema present. Skin: General: Skin is warm and dry. Capillary Refill: Capillary refill takes 2 to 3 seconds. Neurological: General: No focal deficit present. Mental Status: She is alert and oriented to person, place, and time. Psychiatric: Mood and Affect: Mood normal. Behavior: Behavior normal. [facility]-10 Completed this Visit: Yes. [facility]-10: Reason Completed: Status [facility] ED [facility] Fall Risk Assessment Tool Age 65+: Yes (10/26/231599) Diagnosis (3 or more co-existing): Yes (10/26/23 1600) Prior history of falls within 3 months: No (10/26/231599) Incontinence: Yes (10/26/231599) Visual impairment: Yes (10/26/231599) Impaired functional mobility: Yes (10/26/231599) Environmental hazards: No (10/26/231599) Poly Pharmacy (4 or more prescriptions - any type): Yes (10/26/231599) Pain affecting level of function: No (10/26/231599) Cognitive impairment: No (10/26/231599) Score - a score of 4 or more is considered at risk for fallin (10/26/231599) [facility]-10 Interventions: Fall education provided, reviewed/provided Fall brochure Treatment/Plan: Nystop powder to abdominal creases- under colostomy Keep area dry Continue medications as prescribed Keep all upcoming MD appointments Fall precautions Oxygen dependence RN CM follow up in 4 weeks. Home Interventions Provided: Reinforced current Plan of Care, including self-management and medication regimen Patient's Goals of Care: To be able to get around Take care of myself Avoid the hospital Patient's 'Red Flags': Increased sob not relieved with nebulizer Weight gain of 2-3 lb/24 hours Productive cough of green/yellow Patient Needs to Remember: Call [facility] with any medical concerns/ red flags Referrals Needed: N/a Follow Up: Is there cellular connectivity/connectivity in the home? Yes Does the patient have internet in the home? Yes Patient encouraged to call the intake phone number for all urgent but not emergent issues. Scheduled to follow up with patient in 4 weeks. Jodi Luque RN 10/26/2023 4:07 PM documented in this encounter Plan of Treatment Upcoming Encounters Date Type Department Care Team (Latest Contact Info) Description 11/09/2023 2:00 PM EDT Home Visit [facility] [address] [place] [address] Jodi Smallwood RN [address] [place] [address] 11/13/2023 11:00 AM EDT [facility] Visit [facility] [address] [place] [address] Derick Miner PA-C [address] [place] [address] 11/24/2023 8:35 AM EDT Hospital Encounter OR [facility], Operating Room, [facility] - 4th Floor [address] [place] [address] Joshua Orantes MD [address] [place] [address] 11/24/2023 8:35 AM EDT - 11/24/2023 9:50 AM EDT Surgery OR [facility], Operating Room, [facility] - 4th Floor [address] [place] [address] Joshua Orantes MD [address] [place] [address] COLONOSCOPY FLEXIBLE PROXIMAL DIAGNOSTIC Scheduled Procedures Name [...] SMARTSET #1146) 10/08/2023 CKD PHOS USE SMARTSET 88171 12/28/202312/02, 04/26/2022, 11/23/2021, Additional history exists Influenza Vaccine (FLU shot) (Season Ended) 2024 GFR 03/15/2024 09/13/2023, 08/31, 09/09/2023, Additional history exists DXA Scan 08/01/2024 08/01/2022, 07/05, 07/07/2020, Additional history exists Albumin/Creatinine Ratio 09/18/2024 024, 08/15/2022, 02/09/2021 CKD HGB USE SMARTSET 79554 09/18/202409/18, 09/11/2023, 09/08/2023, Additional history exists O2 [...] ONCE IN A LIFETIME-USE SMARTSET# [id number] Completed 09/19/2023, 12/27/2022, 08/12/2022, Additional history exists [...] patient or by statute hierarchy) Care Teams Skin Care Instructor Relationship Specialty Start Date End Date Tameka Hooper MD [address] [place] [address] [place] [phone] PCP - General Family Medicine 05/29/19 documented as of this encounter
--- OUTSIDE RECORDS SUMMARY | 2023-11-22 22:26 | External Medical Summary | Summary of Care ---
Author Name Unknown Organization [facility] Address [address] [place] [address] Phone [phone] Care Team Providers Care Valet Cashier Name Role Phone Tameka Hooper MD Primary Care Prov ider Reason for Visit * Reason Onset Date Comments Med Request 11/02/2023 Guaifenesin 600 mg Encounter Details Date Type Department Care Team (Late st Contact Info) Description 11/02/[address] [phone] Tameka Hooper MD [address] [place] [address] [place] [address] Med Request (Guaifenesin 600 mg) Allergies Active Allergy Reactions Criticality Noted Date Comments Amoxicillin Rash 02/07/2020 Bactrim Rash 12/15/2011 Ciprofloxacin Rash 12/15/2011 Diltiazem Rash 05/29/2019 Piroxicam Rash 12/15/2011 Cephalexin Rash 12/15/2011 Meloxicam Rash 05/29/2019 Other reaction(s): Other Cilostazol Rash,Unknown 12/15/2011 Sulfamethoxazole High 01/19/2023 Other Reaction(s): Rash Trimethoprim High 01/19/2023 Other Reaction(s): Rash documented as of this encounter (statuses as of 11/14/2023) Medications Medication Sig Dispensed Refills Start Date [...] weight gain. 90 Tablet 3 09/13/2023 Active Ipratropium-Albut donna 0.5-2.5 [...] morning. 30 Tablet 0 09/13/2023 Active Calcium Carb-Cholecalcife rol [...] 10/23/2023 Active Rivaroxaban 15 MG Oral Tablet (Xarelto)Indicati ons:Chronic atrial fibrillation (HCC) Take 1 Tablet by mouth daily with dinner. 90 Tablet 1 10/23/2023 Active Nystatin 148384 UNIT/GM External Powder (Nystop) Apply topically to affected area 3 times a day. Apply to affected areas 60 g 1 10/27/2023 Active guaiFENesin ER 600 MG Oral Tablet Extended Release 12 Hour (Humibid LA) Take 1 Tablet by mouth in the morning and 1 Tablet before bedtime. 60 Tablet 3 09/13/2023 Discontinue d(Patient preference/ discontinua tion) Hospital, Clinic, or Other Facility Administered Medication Ordered Dose Route Frequency Start Date End Date Status Denosumab (Prolia) subcut inj 60 mgIndications:Senile osteoporosis 60 mg SC [id number] 10/23/2023 04/19/2024 Active documented as of this encounter (statuses as of 11/14/2023) Active Problems Problem Noted Date Diagnosed Date Anemia 11/13/2023 Last Assessment & Plan: Anemia at recent [facility] admission, received 1 unit PRBC H/o bleeding [...] as of this encounter (statuses as of 11/14/2023) Resolved Problems Problem Noted Date Diagnosed Date [...] as of this encounter (statuses as of 11/14/2023) Immunizations Name Administration Dates Next Due COVID-19 [...] Encounter - Mary Lou Macdonald RN - 11/14/2023 1:23 PM EDT I apokw with pt, she does not have cough or congestion. Adivsed she only needs to take this medication if she would get those symptoms, it is an OTC PRN med. Pt agreeable * Telephone Encounter - Pia Hinton OSA - 11/13/2023 3:10 PM EDT Patient has no daughter so not sure who was called. Nadia originally called and she is a family friend. Please call patient ibis as she has been taking this medicaiton for several years and if its not necessary it is costing her over $80 a month. Can she discontinue taking it message left for daughter to call us * Telephone Encounter - Mary Lou Macdonald RN - 11/07/2023 10:39 AM EDT message left for Caregiver to call us * Telephone Encounter - Tameka Hooper MD - 11/06/2023 3:01 PM EDT Please gather some relevant information: is she coughing? Benefitting from the OTC medication? * Telephone Encounter - Benny Richardson OSA - 11/02/2023 2:25 PM EDT Pt's caregiver, Nadia, called to ask Dr. Sergio Cai if pt should continue the use of Guaifenesin 600 mg 2x a day. Please call pt's home phone to make her aware. documented in this encounter Plan of Treatment Upcoming Encounters Date Type Department Care Team (Latest Contact Info) Description 11/22/2023 7:05 AM EDT Laboratory Lab Mobile Phlebotomy [facility] [address] [place] [address] [facility] Mobile Home Draw [address] [place] [address] 11/24/2023 8:35 AM EDT Hospital Encounter OR [facility], Operating Room, [facility] - 4th Floor [address] [facility] [place] [address] Joshua Orantes MD [address] [place] [address] 11/24/2023 8:35 AM EDT - 11/24/2023 9:50 AM EDT Surgery OR [facility], Operating Room, [facility] - 4th Floor [address] [facility] [place] [address] Joshua Orantes MD [address] [place] [address] COLONOSCOPY FLEXIBLE PROXIMAL DIAGNOSTIC Scheduled Procedures Name Priority Associated Diagnoses Date/Ti ut COLONOSCOPY FLEXIBLE PROXIMA L DIAGNOSTIC History of colonic polyps Gastric ulcer 11/24/2023 8:35 AM EDT ESOPHAGOGASTRODUODENOSCOPY ( EGD), FLEXIBLE, TRANSORAL, DIAGNOSTIC History of colonic polyps Gastric ulcer 11/24/2023 8:35 AM EDT Health Maintenance Due Date Last Done Comments DISCUSS TOBACCO CESSATION (REFER TO SMARTSET #8296) 1940 COVID-19 Vaccine ( season) 2023 06/01/2021, 10/20/2020, 09/15/2020 *BISPHONATE OR OTHER ACCEPTABLE MEDICATION NEEDED FOR OSTEOPOROSIS (REFER TO SMARTSET #1146) 10/08/2023 CKD PHOS USE SMARTSET 48636 12/28/202312/02, 04/26/2022, 11/23/2021, Additional history exists Influenza Vaccine (FLU shot) (Season Ended) 2024 GFR 03/15/2024 09/13/2023, 08/31, 09/09/2023, Additional history exists DXA Scan 08/01/2024 08/01/2022, 07/05, 07/07/2020, Additional history exists Albumin/Creatinine Ratio 09/18/2024 024, 08/15/2022, 02/09/2021 CKD HGB USE SMARTSET 36424 09/18/202409/18, 09/11/2023, 09/08/2023, Additional history exists O2 [...] D LEVEL ONCE IN A LIFETIME-USE SMARTSET# 34163 Completed 09/19/2023, 12/27/2022, 08/12/2022, Additional history exists [...] patient or by statute hierarchy) Care Teams Valet Cashier Relationship Specialty Start Date End Date Tameka Hooper MD [address] [place] [address] [place] [phone] PCP - General Family Medicine 05/29/19 documented as of this encounter
--- OUTSIDE RECORDS SUMMARY | 2023-11-22 22:27 | External Medical Summary | Summary of Care ---
Author Name Unknown Organization [facility] Address [address] [place] [address] Phone [phone] Care Team Providers Care Clean Rice Grader And Reel Tender Name Role Phone Tameka Leone MD Primary Care Prov ider Reason for Visit * Reason Onset Date Comments Advice 10/23/2023 Encounter Details Date Type Department Care Team (Late st Contact Info) Description 10/23/2023 Refill Family Medicine [address] [phone] Tameka Leone MD [address] [place] [address] [place] [address] Chronic atrial fibrillation (HCC) Allergies Active Allergy Reactions Criticality Noted Date Comments Amoxicillin Rash 02/07/2020 Bactrim Rash 12/15/2011 Ciprofloxacin Rash 12/15/2011 Diltiazem Rash 05/29/2019 Piroxicam Rash 12/15/2011 Cephalexin Rash 12/15/2011 Meloxicam Rash 05/29/2019 Other reaction(s): Other Cilostazol Rash,Unknown 12/15/2011 Sulfamethoxazole High 01/19/2023 Other Reaction(s): Rash Trimethoprim High 01/19/2023 Other Reaction(s): Rash documented as of this encounter (statuses as of 10/23/2023) Medications Medication Sig Dispensed Refills Start Date [...] with dinner. 90 Tablet 1 10/23/2023 Active Rivaroxaban 15 MG Oral Tablet (Xarelto)Indicati ons:Chronic atrial fibrillation (HCC) Take 1 Tablet by mouth daily with dinner. 30 Tablet 0 09/13/2023 4 Discontinue d(Refill) Verapamil HCl ER 120 MG Oral Tablet Extended Release (Isoptin SR) Take 1 Tablet by mouth in the morning. 30 Tablet 0 09/13/2023 4 Discontinue d(Refill) Vitamin C 500 MG Oral Tablet Chewable Take 1 Tablet by mouth in the morning. 90 Tablet 0 09/13/2023 4 Discontinue d(Refill) Hospital, Clinic, or Other Facility Administered Medication Ordered Dose Route Frequency Start Date End Date Status Denosumab (Prolia) subcut inj 60 mgIndications:Senile osteoporosis 60 mg SC [id number] 10/23/2023 04/19/2024 Active documented as of this encounter (statuses as of 10/23/2023) Active Problems Problem Noted Date Diagnosed Date [...] as of this encounter (statuses as of 10/23/2023) Resolved Problems Problem Noted Date Diagnosed Date [...] as of this encounter (statuses as of 10/23/2023) Immunizations Name Administration Dates Next Due COVID-19 [...] Miscellaneous Notes * Telephone Encounter - Tameka Leone MD - 10/23/2023 5:16 PM EDT Pharmacy was not selected. I sent Rx's to [facility]. * Telephone Encounter - Tameka Leone MD - 10/23/2023 5:15 PM EDT Signed Prescriptions: Disp Refills Vitamin C 500 MG Oral Tablet Chewable 90 Tab*0 Sig: Take 1 Tablet by mouth in the morning. Authorizing Provider: TAMEKA LEONE Verapamil HCl ER 120 MG Oral Tablet Extend*90 Tab*1 Sig: Take 1 Tablet by mouth in the morning. Authorizing Provider: TAMEKA LEONE Rivaroxaban 15 MG Oral Tablet (Xarelto) 90 Tab *1 Sig: Take 1 Tablet by mouth daily with dinner. Authorizing Provider: TAMEKA LEONE * Telephone Encounter - Mary Lou Macdonald RN - 10/23/2023 4:41 PM EDTPending Prescriptions: Disp Refills Vitamin C 500 MG Oral Tablet Chewable 90 Tab*0 Sig: Take 1 Tablet by mouth in the morning. Verapamil HCl ER 120 MG Oral Tablet Extend*90 Tab*1 Sig: Take 1 Tablet by mouth in the morning. Rivaroxaban 15 MG Oral Tablet (Xarelto) 90 Tab*1 Sig: Take 1 Tablet by mouth daily with dinner. * Telephone Encounter - Anai Celaya OSA - 10/23/2023 3:58 PM EDT Sunil calling in- pt right next to her- calling in for a refill and wants a 90 days instead of 30 days. documented in this encounter Plan of Treatment Upcoming Encounters Date Type Department Care Team (Latest Contact Info) Description 10/26/2023 5:30 PM EDT [facility] Visit [facility] [place], [facility] [address] [place] [address] Jodi Smallwood, RN [address] [place] [address] 11/13/2023 11:00 AM EDT [facility] Visit [facility] [place], [facility] [address] [place] [address] Derick Miner PA-C [address] [place] [address] 11/24/2023 8:35 AM EDT Hospital Encounter OR [facility], Operating Room, [facility] - 4th Floor [facility] [place] [address] Joshua Orantes MD [address] [place] [address] 11/24/2023 8:35 AM EDT - 11/24/2023 9:50 AM EDT Surgery OR [facility], Operating Room, [facility] - 4th Floor [address] [facility] [place] [address] Joshua Orantes MD [address] [place] [address] COLONOSCOPY FLEXIBLE PROXIMAL DIAGNOSTIC Scheduled Procedures Name Priority Associated Diagnoses Date/Ti me COLONOSCOPY FLEXIBLE PROXIMA L DIAGNOSTIC History of colonic polyps Gastric ulcer 11/24/2023 8:35 AM EDT ESOPHAGOGASTRODUODENOSCOPY ( EGD), FLEXIBLE, TRANSORAL, DIAGNOSTIC History of colonic polyps Gastric ulcer 11/24/2023 8:35 AM EDT Health Maintenance Due Date Last Done Comments DISCUSS TOBACCO CESSATION (REFER TO SMARTSET #6541) 1940 COVID-19 Vaccine ( season) 2023 06/01/2021, 10/20/2020, 09/15/2020 *BISPHONATE OR OTHER ACCEPTABLE MEDICATION NEEDED FOR OSTEOPOROSIS (REFER TO SMARTSET #1146) 10/08/2023 CKD PHOS USE SMARTSET 79715 12/28/202312/02, 04/26/2022, 11/23/2021, Additional history exists Influenza Vaccine (FLU shot) (Season Ended) 2024 GFR 03/15/2024 09/13/2023, 08/31, 09/09/2023, Additional history exists DXA Scan 08/01/2024 08/01/2022, 07/05, 07/07/2020, Additional history exists Albumin/Creatinine Ratio 09/18/2024 024, 08/15/2022, 02/09/2021 CKD HGB USE SMARTSET 85730 09/18/202409/18, 09/11/2023, 09/08/2023, Additional history exists O2 ASSESSMENT COMPLETED IN PAST YEAR FOR COPD 10/18/2024 10/19/2023 COLONOSCOPY-EVERY 5 YRS AGES 18-100 07/31/2028 07/31/2023, 02/23/2022, 02/23/2022, Additional history exists DTaP,Tdap,and Td Vaccines (2 - Td or Tdap) 08/07/2030 08/07/2020 (Not indicated), 09/01/1998 Pneumococcal Vaccine: 65+ Years Completed 05/16/2016, 12/01/2014, 12/01/2013, Additional history exists Zoster Vaccines Discontinued 12/28/2022 VITAMIN D LEVEL ONCE IN A LIFETIME-USE SMARTSET# [id number] Completed 09/19/2023, 12/27/2022, 08/12/2022, Additional history exists [...] Diagnosis Chronic atrial fibrillation (HCC) Atrial fibrillation History of colonic polyps Personal history of [...] patient or by statute hierarchy) Care Teams Clean Rice Grader And Reel Tender Relationship Specialty Start Date End Date Tameka Leone MD [address] [place] [address] [place] [address] PCP - General Family Medicine 05/29/19 documented as of this encounter
--- OUTSIDE RECORDS SUMMARY | 2023-11-22 22:27 | External Medical Summary | Summary of Care ---
Author Name Unknown Organization [facility] Address [address] [place] [address] Phone [phone] Care Team Providers Care Device Engineer Name Role Phone Tameka Leone MD Primary Care Prov ider Reason for Visit * Reason Onset Date Comments Advice 10/23/2023 Encounter Details Date Type Department Care Team (Late st Contact Info) Description 10/23/2023 Refill Family Medicine [address] [phone] Tameka Leone MD [address] [place] [address] [place] [address] Chronic atrial fibrillation (HCC) Allergies Active Allergy Reactions Criticality Noted Date Comments Amoxicillin Rash 02/07/2020 Bactrim Rash 12/15/2011 Ciprofloxacin Rash 12/15/2011 Diltiazem Rash 05/29/2019 Piroxicam Rash 12/15/2011 Cephalexin Rash 12/15/2011 Meloxicam Rash 05/29/2019 Other reaction(s): Other Cilostazol Rash,Unknown 12/15/2011 Sulfamethoxazole High 01/19/2023 Other Reaction(s): Rash Trimethoprim High 01/19/2023 Other Reaction(s): Rash documented as of this encounter (statuses as of 10/24/2023) Medications Medication Sig Dispensed Refills Start Date [...] inj 60 mgIndications:Senile osteoporosis 60 mg SC [id number] 10/23/2023 04/19/2024 Active documented as of this encounter (statuses as of 10/24/2023) Active Problems Problem Noted Date Diagnosed Date [...] as of this encounter (statuses as of 10/24/2023) Resolved Problems Problem Noted Date Diagnosed Date [...] as of this encounter (statuses as of 10/24/2023) Immunizations Name Administration Dates Next Due COVID-19 [...] was not selected. I sent Rx's to [facility]. * Telephone Encounter - Tameka [...] 5:30 PM EDT [facility] Visit [facility] [place], [facility] [address] [address] Jodi Smallwood, RN [address] [place] [address] 11/13/2023 11:00 AM EDT [facility] Visit [facility] [place], [facility] [address] [address] Derick Miner PA-C [address] [place] [address] 11/24/2023 8:35 AM EDT Hospital Encounter OR [facility], Operating Room, [facility]th [facility] [address] Joshua Orantes MD [address] [place] [address] 11/24/2023 8:35 AM EDT - 11/24/2023 9:50 AM EDT Surgery OR [facility], Operating Room, [facility] - 4th Floor 400 [facility] [place] [address] Joshua Orantes MD [address] [place] [address] COLONOSCOPY FLEXIBLE PROXIMAL DIAGNOSTIC Scheduled Procedures Name Priority Associated Diagnoses Date/Ti me COLONOSCOPY FLEXIBLE PROXIMA L DIAGNOSTIC History of colonic polyps Gastric ulcer 11/24/2023 8:35 AM EDT ESOPHAGOGASTRODUODENOSCOPY ( EGD), FLEXIBLE, TRANSORAL, DIAGNOSTIC History of colonic polyps Gastric ulcer 11/24/2023 8:35 AM EDT Health Maintenance Due Date Last Done Comments DISCUSS TOBACCO CESSATION (REFER TO SMARTSET #7081) 1940 COVID-19 Vaccine ( season) 2023 06/01/2021, 10/20/2020, 09/15/2020 *BISPHONATE OR OTHER ACCEPTABLE MEDICATION NEEDED FOR OSTEOPOROSIS (REFER TO SMARTSET #1146) 10/08/2023 CKD PHOS USE SMARTSET 67103 12/28/202312/02, 04/26/2022, 11/23/2021, Additional history exists Influenza Vaccine (FLU shot) (Season Ended) 2024 GFR 03/15/2024 09/13/2023, 08/31, 09/09/2023, Additional history exists DXA Scan 08/01/2024 08/01/2022, 07/05, 07/07/2020, Additional history exists Albumin/Creatinine Ratio 09/18/2024 024, 08/15/2022, 02/09/2021 CKD HGB USE SMARTSET 01475 09/18/202409/18, 09/11/2023, 09/08/2023, Additional history exists O2 [...] D LEVEL ONCE IN A LIFETIME-USE SMARTSET# 68705 Completed 09/19/2023, 12/27/2022, 08/12/2022, Additional history exists [...] patient or by statute hierarchy) Care Teams Device Engineer Relationship Specialty Start Date End Date Tameka Leone MD [address] [place] [address] [place] [address] PCP - General Family Medicine 05/29/19 documented as of this encounter
--- OUTSIDE RECORDS SUMMARY | 2023-11-22 22:27 | External Medical Summary | Summary of Care ---
Author Name Unknown Organization [facility] Address [address] [place] [address] Phone [phone] Care Team Providers Care Kitchen Help Handyman Name Role Phone Tameka Hooper MD Primary Care Prov ider Reason for Visit * Reason Onset Date Comments Order Request 10/17/2023 Prolia Encounter Details Date Type Department Care Team (Late st Contact Info) Description 10/17/2023 Telephone Rheumatology [facility] [address] [place] [address] Daniel Tapia MD [address] [employer] [address] Order Request (Prolia) Allergies Active Allergy Reactions Criticality Noted Date Comments Amoxicillin Rash 02/07/2020 Bactrim Rash 12/15/2011 Ciprofloxacin Rash 12/15/2011 Diltiazem Rash 05/29/2019 Piroxicam Rash 12/15/2011 Cephalexin Rash 12/15/2011 Meloxicam Rash 05/29/2019 Other reaction(s): Other Cilostazol Rash,Unknown 12/15/2011 Sulfamethoxazole High 01/19/2023 Other Reaction(s): Rash Trimethoprim High 01/19/2023 Other Reaction(s): Rash documented as of this encounter (statuses as of 10/17/2023) Medications Medication Sig Dispensed Refills Start Date [...] Oral Tablet Take by mouth. 0 Active Hospital, Clinic, or Other Facility Administered Medication Ordered Dose Route Frequency Start Date End Date Status Denosumab (Prolia) subcut inj 60 mgIndications:Senile osteoporosis 60 mg SC [id number] 10/23/2023 04/19/2024 Active documented as of this encounter (statuses as of 10/17/2023) Active Problems Problem Noted Date Diagnosed Date [...] as of this encounter (statuses as of 10/17/2023) Resolved Problems Problem Noted Date Diagnosed Date [...] as of this encounter (statuses as of 10/17/2023) Immunizations Name Administration Dates Next Due COVID-19 [...] encounter Miscellaneous Notes * Telephone Encounter - Daniel Tapia MD - 10/17/2023 2:24 PM EDT signed * Telephone Encounter - Yolanda Prado LPN - 10/17/2023 11:46 AM EDT Chart reviewed and labs noted to be within normal limits. Patient has been seen within the last 12 months by a Rheumatology provider. Prolia authorization approved and updated in referral. Last injection has been > 6 months and 1 day. CAM orders pended for signature. documented in this encounter Plan of Treatment Upcoming Encounters Date Type Department Care Team (Latest Contact Info) Description 10/19/2023 2:40 PM EDT Office Visit Family [address] [phone] Krishna Espana MD [address] [place] [address] [place] [address] 10/26/2023 5:30 PM EDT [facility] Visit [facility] [address] [place] [address] Jodi Smallwood RN 132 [facility] [place] [address] 10/31/2023 11:20 AM EDT Office Visit [address] [phone] Tameka Hooper MD [address] [place] [address] [place] [address] 10/31/2023 1:00 PM EDT Cardiac Studies Cardiac Studies, [facility] 132 [facility] [place] [address] 11/13/2023 11:00 AM EDT [facility] Visit [facility] [address] [place] [address] Derick Mnier PA-C 132 [facility] [place] [address] 11/14/2023 1:30 PM EDT Office Visit General Surgery, [facility] [address] [place] [address] Latrice Hooks MD [address] [place] [address] 11/23/2023 3:00 PM EDT Office Visit Family Medicine [address] [place] [phone] Betsey Cramer CRNP [address] [place] [address] [place] [address] 11/24/2023 8:35 AM EDT Hospital Encounter OR [facility], Operating Room, [facility] - 4th Floor 400 [facility] [place] [address] Joshua Orantes MD [address] [place] [address] 11/24/2023 8:35 AM EDT - 11/24/2023 9:50 AM EDT Surgery OR [facility], Operating Room, [facility] - 4th Floor 400 [facility] [place] [address] Joshua Orantes MD [address] [place] [address] COLONOSCOPY FLEXIBLE PROXIMAL DIAGNOSTIC 02/20/2024 3:40 PM EDT Office Visit [facility] Disorders [facility] Nik[facility] [place] [address] [place] [phone] Lynn Busby DO [address] [place] [address] 03/26/2024 1:30 PM EDT Office Visit Nephrology [address] [place] [address] [place] [address] ZemaitisAyana PA-C [address] [place] [address] 05/01/2024 3:00 PM EDT Office Visit Dermatology [address] [place] [address] [place] [address] Anya Pratt PA-C [address] [place] [address] [place] [address] Scheduled Procedures Name Priority Associated Diagnoses Date/Ti [...] SMARTSET #1146) 10/08/2023 CKD PHOS USE SMARTSET 34005 12/28/202312/02, 04/26/2022, 11/23/2021, Additional history exists Influenza Vaccine (FLU shot) (Season Ended) 2024 GFR 03/15/2024 09/13/2023, 08/31, 09/09/2023, Additional history exists DXA Scan 08/01/2024 08/01/2022, 07/05, 07/07/2020, Additional history exists Albumin/Creatinine Ratio 09/18/2024 024, 08/15/2022, 02/09/2021 CKD HGB USE SMARTSET 42598 09/18/202409/18, 09/11/2023, 09/08/2023, Additional history exists O2 [...] D LEVEL ONCE IN A LIFETIME-USE SMARTSET# 68353 Completed 09/19/2023, 12/27/2022, 08/12/2022, Additional history exists [...] encounter Visit Diagnoses Diagnosis Senile osteoporosis- Primary History of colonic polyps Personal history of [...] patient or by statute hierarchy) Care Teams Kitchen Help Handyman Relationship Specialty Start Date End Date Tameka Hooper MD [address] [place] [address] [place] [address] PCP - General Family Medicine 05/29/19 documented as of this encounter
--- OUTSIDE RECORDS SUMMARY | 2023-11-22 22:27 | External Medical Summary | Summary of Care ---
Author Name Unknown Organization [facility] Address [address] [place] [address] Phone [phone] Care Team Providers Care Life Science Technical Officer Name Role Phone Tameka Hooper MD Primary Care Prov ider Reason for Visit * Reason Onset Date Comments Home Health 10/18/2023 Encounter Details Date Type Department Care Team (Late st Contact Info) Description 10/18/2023 Telephone Family Medicine [address] [phone] Tameka Hooper MD [address] [place], [place] [address] [address] Home Health Allergies Active Allergy Reactions Criticality Noted Date Comments Amoxicillin Rash 02/07/2020 Bactrim Rash 12/15/2011 Ciprofloxacin Rash 12/15/2011 Diltiazem Rash 05/29/2019 Piroxicam Rash 12/15/2011 Cephalexin Rash 12/15/2011 Meloxicam Rash 05/29/2019 Other reaction(s): Other Cilostazol Rash,Unknown 12/15/2011 Sulfamethoxazole High 01/19/2023 Other Reaction(s): Rash Trimethoprim High 01/19/2023 Other Reaction(s): Rash documented as of this encounter (statuses as of 10/18/2023) Medications Medication Sig Dispensed Refills Start Date [...] inj 60 mgIndications:Senile osteoporosis 60 mg SC [id number] 10/23/2023 04/19/2024 Active documented as of this encounter (statuses as of 10/18/2023) Active Problems Problem Noted Date Diagnosed Date [...] as of this encounter (statuses as of 10/18/2023) Resolved Problems Problem Noted Date Diagnosed Date [...] as of this encounter (statuses as of 10/18/2023) Immunizations Name Administration Dates Next Due COVID-19 [...] encounter Miscellaneous Notes * Telephone Encounter - Vesna Yousif LPN - 10/18/2023 2:27 PM EDT Resumption of Care Order Request: Nereida DOVER, Calling from: [place] Patient was Admitted to: [facility], for: UTI and Kidney Infection from 10/12/23 to 10/16/23 Last Office Visit: 09/19/2023 Has patient been scheduled or seen in the office for a follow up visit: Yes- on10/19/23 Advised that orders will be signed by Dr. Tameka Cai and to fax to the office for signature. Patient was seen today and is doing great. documented in this encounter Plan of Treatment Upcoming Encounters Date Type Department Care Team (Latest Contact Info) Description 10/19/2023 2:40 PM EDT Office Visit Family Medicine [address] [place] [phone] Krishna Espana MD [address] [place] [address] [place] [address] 10/26/2023 5:30 PM EDT [facility] [address] [place] [address] Jodi Smallwood RN [address] [place] [address] 11/13/2023 11:00 AM EDT [facility] Visit [facility] [place], [facility] [address] [address] Derick Miner PA-C [address] [place] [address] 11/14/2023 1:30 PM EDT Office Visit General Surgery, [facility] [address] [place] [address] Latrice Hooks MD [address] [place] [address] 11/24/2023 8:35 AM EDT Hospital Encounter OR [facility], Operating Room, [facility] - 4th Floor [address] [place] [address] Joshua Orantes MD [address] [place] [address] 11/24/2023 8:35 AM EDT - 11/24/2023 9:50 AM EDT Surgery OR [facility], Operating Room, [facility] 4th Floor [facility] [address] Joshua Orantes MD [address] [place] [address] COLONOSCOPY FLEXIBLE PROXIMAL DIAGNOSTIC 02/20/2024 3:40 PM EDT Office Visit [facility] Disorders Ctr [facility] [address] [place] [phone] Lynn Busby DO [address] [place] [address] 03/26/2024 1:30 PM EDT Office Visit Nephrology [address] [place] [address] ZemaitisAyana PA-C [address] [place] [address] 05/01/2024 3:00 PM EDT Office Visit Dermatology [address] [place] [address] Anya Pratt PA-C [address] [place] [address] [place] [address] Scheduled Procedures Name Priority Associated Diagnoses Date/Ti [...] SMARTSET #1146) 10/08/2023 CKD PHOS USE SMARTSET 82104 12/28/2023/12/2022, 04/26/2022, 11/23/2021, Additional history exists Influenza Vaccine (FLU shot) (Season Ended) 2024 GFR 03/15/2024 09/13/2023, 08/31, 09/09/2023, Additional history exists DXA Scan 08/01/2024 08/01/2022, 07/05, 07/07/2020, Additional history exists Albumin/Creatinine Ratio 09/18/2024 024, 08/15/2022, 02/09/2021 CKD HGB USE SMARTSET 56635 09/18/202409/18, 09/11/2023, 09/08/2023, Additional history exists O2 [...] D LEVEL ONCE IN A LIFETIME-USE SMARTSET# 20487 Completed 09/19/2023, 12/27/2022, 08/12/2022, Additional history exists [...] patient or by statute hierarchy) Care Teams Life Science Technical Officer Relationship Specialty Start Date End Date Tameka Hooper MD [address] [place] [address] [place] [phone] PCP - General Family Medicine 05/29/19 documented as of this encounter
--- OUTSIDE RECORDS SUMMARY | 2023-11-22 22:27 | External Medical Summary | Summary of Care ---
Author Name Unknown Organization [facility] Address [address] [place] [address] Phone [phone] Care Team Providers Care Card Game Operator Name Role Phone Tameka Hooper MD Primary Care Prov ider Reason for Visit * Reason Onset Date Comments Order Request 10/17/2023 Prolia Encounter Details Date Type Department Care Team (Late st Contact Info) Description 10/17/2023 Telephone Rheumatology [facility] [address] [place] [address] Daniel Tapia MD [address] [email or web address] [facility] [place] [address] Order Request (Prolia) Allergies Active Allergy [...] inj 60 mgIndications:Senile osteoporosis 60 mg SC [id number] 10/23/2023 04/19/2024 Active documented as of this [...] 10/19/2023 2:40 PM EDT Office Visit Family [address] [phone] Krishna Espana MD [address] [place] [address] [place] [address] 10/26/2023 5:30 PM EDT [facility] [address] [place] [address] Jodi Smallwood RN 132 [facility] [place] [address] 10/31/2023 11:20 AM EDT Office Visit [address] [phone] Tameka Hooper MD [address] [place] [address] [place] [address] 10/31/2023 1:00 PM EDT Cardiac Studies Cardiac Studies, [facility] 132 [facility] [place] [address] 11/13/2023 11:00 AM EDT Home Visit [facility] [address] [place] [address] Derick Miner PA-C 132 [facility] [place] [address] 11/14/2023 1:30 PM EDT Office Visit General Surgery, [facility] [address] [place] [address] Latrice Hooks MD [address] [place] [address] 11/23/2023 3:00 PM EDT Office Visit Family Medicine [address] [place] [phone] Betsey Cramer CRNP [address] [place] [address] [place] [address] 11/24/2023 8:35 AM EDT Hospital Encounter OR [facility], Operating Room, [facility] - 4th Floor 400 [facility] [place] [address] Joshua Orantes MD [address] [place] [address] 11/24/2023 8:35 AM EDT - 11/24/2023 9:50 AM EDT Surgery OR [facility], Operating Room, [facility] - 4th Floor 400 [facility] [place] [address] Joshua Orantes MD [address] [place] [address] COLONOSCOPY FLEXIBLE PROXIMAL DIAGNOSTIC 02/20/2024 3:40 PM EDT Office Visit [facility] Ctr [address] [place] [phone] Lynn Busby DO [address] [place] [address] 03/26/2024 1:30 PM EDT Office Visit Nephrology [address] [place] [address] ZemaitisAyana PA-C [address] [place] [address] 05/01/2024 3:00 PM EDT Office Visit Dermatology [address] [place] [address] Anya Pratt PA-C [address] [place] [address] [place] [address] Scheduled Procedures Name Priority Associated Diagnoses Date/Ti [...] SMARTSET #1146) 10/08/2023 CKD PHOS USE SMARTSET 28416 12/28/202312/02, 04/26/2022, 11/23/2021, Additional history exists Influenza Vaccine (FLU shot) (Season Ended) 2024 GFR 03/15/2024 09/13/2023, 08/31, 09/09/2023, Additional history exists DXA Scan 08/01/2024 08/01/2022, 07/05, 07/07/2020, Additional history exists Albumin/Creatinine Ratio 09/18/2024 024, 08/15/2022, 02/09/2021 CKD HGB USE SMARTSET 09058 09/18/202409/18, 09/11/2023, 09/08/2023, Additional history exists O2 [...] D LEVEL ONCE IN A LIFETIME-USE SMARTSET# 45971 Completed 09/19/2023, 12/27/2022, 08/12/2022, Additional history exists [...] patient or by statute hierarchy) Care Teams Card Game Operator Relationship Specialty Start Date End Date Tameka Hooper MD [address] [place] [address] [place] [address] PCP - General Family Medicine 05/29/19 documented as of this encounter
--- OUTSIDE RECORDS SUMMARY | 2023-11-22 22:27 | External Medical Summary | Summary of Care ---
Author Name Unknown Organization [facility] Address [address] [place] [address] Phone [phone] Care Team Providers Care Photograph Retoucher Name Role Phone Tameka Leone MD Primary Care Prov ider Reason for Visit * Reason Onset Date Comments Advice 10/23/2023 Encounter Details Date Type Department Care Team (Late st Contact Info) Description 10/23/2023 Refill Family Medicine [address] [phone] Tameka Leone MD [address] [place] [address] [place] [address] Chronic atrial fibrillation (HCC) Allergies Active [...] inj 60 mgIndications:Senile osteoporosis 60 mg SC [id number] 10/23/2023 04/19/2024 Active documented as of this [...] was not selected. I sent Rx's to [facility]. * Telephone Encounter - Tameka Leone [...] 5:30 PM EDT [facility] Visit [facility] [place], [facility] [address] [place] [address] Jodi Smallwood, RN [address] [place] [address] 11/13/2023 11:00 AM EDT [facility] Visit [facility] [place], [facility] [address] [place] [address] Derick Miner PA-C [address] [place] [address] 11/24/2023 8:35 AM EDT Hospital En[facility] OR [facility], Operating Room, [facility] - 4th Floor [facility] [address] Joshua Orantes MD [address] [place] [address] 11/24/2023 8:35 AM EDT - 11/24/2023 9:50 AM EDT Surgery OR [facility], Operating Room, [facility] - 4th Floor 400 [facility] [place] [address] Joshua Orantes MD [address] [place] [address] COLONOSCOPY FLEXIBLE PROXIMAL DIAGNOSTIC Scheduled Procedures Name Priority Associated Diagnoses Date/Ti me COLONOSCOPY FLEXIBLE PROXIMA L DIAGNOSTIC History of colonic polyps Gastric ulcer 11/24/2023 8:35 AM EDT ESOPHAGOGASTRODUODENOSCOPY ( EGD), FLEXIBLE, TRANSORAL, DIAGNOSTIC History of colonic polyps Gastric ulcer 11/24/2023 8:35 AM EDT Health Maintenance Due Date Last Done Comments DISCUSS TOBACCO CESSATION (REFER TO SMARTSET #1841) 1940 COVID-19 Vaccine ( season) 2023 06/01/2021, 10/20/2020, 09/15/2020 *BISPHONATE OR OTHER ACCEPTABLE MEDICATION NEEDED FOR OSTEOPOROSIS (REFER TO SMARTSET #1146) 10/08/2023 CKD PHOS USE SMARTSET 41456 12/28/202312/02, 04/26/2022, 11/23/2021, Additional history exists Influenza Vaccine (FLU shot) (Season Ended) 2024 GFR 03/15/2024 09/13/2023, 08/31, 09/09/2023, Additional history exists DXA Scan 08/01/2024 08/01/2022, 07/05, 07/07/2020, Additional history exists Albumin/Creatinine Ratio 09/18/2024 024, 08/15/2022, 02/09/2021 CKD HGB USE SMARTSET 19718 09/18/202409/18, 09/11/2023, 09/08/2023, Additional history exists O2 [...] D LEVEL ONCE IN A LIFETIME-USE SMARTSET# 21961 Completed 09/19/2023, 12/27/2022, 08/12/2022, Additional history exists [...] patient or by statute hierarchy) Care Teams Photograph Retoucher Relationship Specialty Start Date End Date Tameka Leone MD [address] [place] [address] [place] [address] PCP - General Family Medicine 05/29/19 documented as of this encounter
--- OUTSIDE RECORDS SUMMARY | 2023-11-22 22:27 | External Medical Summary | Summary of Care ---
Author Name Unknown Organization [facility] Address [address] [place] [address] Phone [phone] Care Team Providers Care Ornament Maker Hand Name Role Phone Tameka Hooper MD Primary Care Prov ider Reason for Visit * Reason Comments Hospital Follow-Up Encounter Details Date Type Department Care Team (Late st Contact Info) Description 10/19/2023 2:40 PM EDT Office Visit Family Medicine [address] [phone] Krishna Espana MD [address] [place] [address] [place] [address] Orthostatic hypotension*; Stage 3b chronic kidney disease; Paroxysmal atrial fibrillation (HCC); Anemia in stage 3b chronic kidney disease (HCC) Allergies Active Allergy Reactions Criticality Noted Date Comments Amoxicillin Rash 02/07/2020 Bactrim Rash 12/15/2011 Ciprofloxacin Rash 12/15/2011 Diltiazem Rash 05/29/2019 Piroxicam Rash 12/15/2011 Cephalexin Rash 12/15/2011 Meloxicam Rash 05/29/2019 Other reaction(s): Other Cilostazol Rash,Unknown 12/15/2011 Sulfamethoxazole High 01/19/2023 Other Reaction(s): Rash Trimethoprim High 01/19/2023 Other Reaction(s): Rash documented as of this encounter (statuses as of 10/19/2023) Medications Medication Sig Dispensed Refills Start Date [...] Oral Tablet Take by mouth. 0 Active Lisinopril 10 MG Oral Tablet (Prinivil)Indicat ions:Hypertensive kidney disease with stage 3b chronic kidney disease (HCC) Take 1 Tablet by mouth in the morning. 30 Tablet 0 09/13/2023 Discontinue d(End of Procedure) Hospital, Clinic, or Other Facility Administered Medication Ordered Dose Route Frequency Start Date End Date Status Denosumab (Prolia) subcut inj 60 mgIndications:Senile osteoporosis 60 mg SC [id number] 10/23/2023 04/19/2024 Active documented as of this encounter (statuses as of 10/19/2023) Active Problems Problem Noted Date Diagnosed Date [...] as of this encounter (statuses as of 10/19/2023) Resolved Problems Problem Noted Date Diagnosed Date [...] as of this encounter (statuses as of 10/19/2023) Immunizations Name Administration Dates Next Due COVID-19 [...] Sign Reading Time Taken Comments Blood Pressure 100/50 10/19/2023 2:42 PM EDT Pulse 71 10/19/2023 2:42 PM EDT Temperature 36.7 C (98 F) 10/19/2023 2:42 PM EDT Respiratory Rate - - Oxygen Saturation 92% 10/19/2023 2:42 PM EDT Inhaled Oxygen Concentration - - Weight 71.2 kg (157 lb) 10/19/2023 2:42 PM EDT Height - - Body Mass Index 33.97 08/24/2023 2:30 PM EST documented in this encounter Progress Notes * Krishna Espana MD - 10/19/2023 2:55 PM EDT Admitted to [facility] 10/11, discharged 10/15 for LOPEZ with Cr of 2, anemia with hgb 6.5. Hypotensive so the lisinopril was stopped but she is actually still taking in. [facility] is seeing her. She is a little weak and tired yet. She is on O2. 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, J44.9 Macular degeneration H35.30 S/P bilateral cataract extraction Z98.41, Z98.42 Colostomy status ([facility]) Z93.3 Paroxysmal atrial fibrillation ([facility]) I48.0 H/O resection of large bowel Z90.49 Diverticulosis of large intestine without hemorrhage K57.30 Mixed hyperlipidemia E78.2 Tobacco use disorder F17.200 Chronic bilateral low back pain without sciatica M54.50, G89.29 DDD (degenerative disc disease), lumbar M51.36 Stage 3b chronic kidney disease N18.32 Senile osteoporosis M81.0 Major depressive disorder with single episode, in full remission ([facility]) F32.5 Hypoparathyroidism ([facility]) E20.9 Chronic hypoxemic respiratory failure ([facility]) J96.11 History of healed osteoporosis fracture Z87.310 Essential (primary) hypertension I10 Hypertensive kidney disease with stage 3b chronic kidney disease (HCC) I12.9, N18.32 Other specified peripheral vascular diseases ([facility]) I73.89 Hx of actinic keratosis Z87.2 IBD (inflammatory bowel disease) K52.9 Gastrointestinal hemorrhage associated with gastric ulcer K25.4 Schatzki's ring of distal esophagus K22.2 Hiatal hernia K44.9 Full code status Z78.9 Nephrolithiasis N20.0 Peristomal hernia K46.9 Bilateral pleural effusion J90 Interstitial lung disease ([facility]) J84.9 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 chronic kidney disease ([facility]) I13.0, I50.32, N18.32 COPD, group C, by GOLD 2017 classification ([facility]) J44.9 Past Medical History: Diagnosis Date Acute kidney injury ([facility]) 10/12/2023 creatinine 2 Anemia 10/12/2023 hgb 6.5, recieved one unit Chronic atrial fibrillation ([facility]) 05/29/2019 Chronic bilateral low back pain without sciatica 02/04/2020 Colostomy status (HCC) 05/29/2019 COPD, moderate (HCC) 12/15/2011 Diverticulitis of colon Essential (primary) hypertension 07/10/2019 Fracture of vertebra due to osteoporosis with routine healing 02/07/2020 Generalized osteoarthritis Glaucoma 12/15/2011 H/O multiple pulmonary nodules pt f/u with [facility] padder next yearly CT is due in May 2022 Macular degeneration 05/29/2019 Mixed hyperlipidemia 05/29/2019 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HCC) 12/15/2011 S/P bilateral cataract extraction 05/29/2019 Upper GI bleed 07/25/2023 gastric ulcer, hgb 6.9 Past Surgical History: Procedure Laterality Date COLONOSCOPY, DIAGNOSTIC (RECTUM) 08/01/2019 adenomatous polyp, repeat 5 yrs/COLONOSCOPY FLEXIBLE PROXIMAL DIAGNOSTIC performed by Gasper Kim DO at ENDOSCOPY [facility] COLONOSCOPY, DIAGNOSTIC (RECTUM) N/A 02/23/2022 [facility], Colonoscopy , Nodular mucosa in ascending & transverse / biopsies biopsies from the colonwere most consistent with inflammatory bowel disease / LENS EXTRACTION, PHACOFRAGMENTATION Bilateral 10/2016 Dr. Cortez LIGATE/CUT OVIDUCT(S) 1974 PARTIAL REMOVAL OF COLON 12/06/2018 Diverticulitis REMOVE TONSILS & ADENOIDS, UNDER 14 age [age] UPPER GI ENDOSCOPY 07/26/2023 gastic ulcer/nonobstructing Schatzki ring/small HH/repeat 3 months/EGD/[facility] Review of patient's allergies indicates: Allergen Reactions [...] on file Food Insecurity: No Food Insecurity (09/27/2023) Hunger Vital Sign Worried About Running Out [...] a day as ordered.) 60 mL 4 Escitalopram Oxalate 10 MG Oral Tablet (Lexapro) Take 1 Tablet by mouth in the morning. 90 Tablet 1 Ferrous Sulfate 325 (65 Fe) MG Oral Tablet (Feosol) TAKE 1 TABLET BY MOUTH EVERY DAY WITH [id number] Tablet 1 Fish Oil 500 MG Oral [...] 1 Tablet by mouth daily with dinner. (Patient taking differently: Take 1 Tablet by mouth daily with dinner. ON HOLD 09/19/23- PER PCP) 30 Tablet 0 Solifenacin Succinate 5 MG Oral Tablet (VESIcare) Take 1 Tablet by mouth in the morning. 30 Tablet 0 Verapamil HCl ER 120 MG Oral Tablet Extended Release (Isoptin SR) Take 1 Tablet by mouth in the morning. 30 Tablet 0 Vitamin C 500 MG Oral Tablet Chewable Take 1 Tablet by mouth in the morning. 90 Tablet 0 Calcium Carb-Cholecalciferol 500-10 MG-MCG Oral Tablet Take by mouth. CPAP every night at bedtime. (Patient not taking: Reported on 09/19/2023) Current Facility-Administered Medications Medication Dose Route Frequency Provider Last Rate Last Admin [START ON 10/23/2023] Denosumab (Prolia) subcut inj 60 mg 60 mg Subcutaneous Q6 Months Daniel Tapia MD She is taking the lisinopril although was told to hold it. O: Blood pressure 100/50, pulse 71, temperature 36.7 C (98 F), temperature source Tympanic, weight 71.2 kg (157 lb), SpO2 92%. General appearance: well developed, well nourished and in no acute distress. Neck is supple without adenopathy or thyromegaly. Chest is symmetrical and moves normally. The lungs are clear without wheezes, rales, rhonchi or rubs, and the heart is regular without murmurs or gallops, or ectopy. PMI not displaced. A: Orthostatic hypotension (Primary) Stage 3b chronic kidney disease Paroxysmal atrial fibrillation (HCC) Anemia in stage 3b chronic kidney disease (HCC) I did incourage her to hold the lisinopril and [facility] can reassess. Follow Up: Return if symptoms worsen or fail to improve. documented in this encounter Nursing Notes * Dominic Borrego LPN - 10/19/2023 2:38 PM EDT Chief Complaint Patient presents with Hospital Follow-Up [facility] Hospital follow up Adm date:10/12/23 Discharge Date:10/17/2023 Dx:Anemia, UTI, acute kidney injury Treated with PRBC, Abx, and Needs Endoscopy and Colonoscopy scheduled. Was scheduled for 11/24/23 ,but pt canceled due to a lot of apt's She cancel GI apt also due to wanting to cut back on apt's She needs new CPAP , but Ref to see Sleep Medicine SPO2 today on RA 92% She is taking Lisinopril daily and on Hospital records to hold med BP today 100/50 The patient has been properly identified by confirmation of name and date of . documented in this encounter Plan of Treatment Upcoming Encounters Date Type Department Care Team (Latest Contact Info) Description 10/26/2023 5:30 PM EDT Home Visit [facility], [address] [place] [address] Jodi Smallwood, RN [address] [place] [address] 11/13/2023 11:00 AM EDT Home Visit [facility], [facility] [address] [place] [address] Derick Miner PA-C [address] [place] [address] 11/24/2023 8:35 AM EDT Hospital Encounter OR [facility], Operating Room, [facility] - 4th Floor [address] [place] [address] Joshua Orantes MD [address] [place] [address] 11/24/2023 8:35 AM EDT - 11/24/2023 9:50 AM EDT Surgery OR [facility], Operating Room, [facility] - 4th Floor [address] [place] [address] Joshua Orantes MD [address] [place] [address] COLONOSCOPY FLEXIBLE PROXIMAL DIAGNOSTIC Scheduled Procedures Name [...] SMARTSET #1146) 10/08/2023 CKD PHOS USE SMARTSET 28005 12/28/202312/02, 04/26/2022, 11/23/2021, Additional history exists Influenza Vaccine (FLU shot) (Season Ended) 2024 GFR 03/15/2024 09/13/2023, 08/31, 09/09/2023, Additional history exists DXA Scan 08/01/2024 08/01/2022, 07/05, 07/07/2020, Additional history exists Albumin/Creatinine Ratio 09/18/2024 024, 08/15/2022, 02/09/2021 CKD HGB USE SMARTSET 33496 09/18/202409/18, 09/11/2023, 09/08/2023, Additional history exists O2 [...] D LEVEL ONCE IN A LIFETIME-USE SMARTSET# [id number] Completed 09/19/2023, 12/27/2022, 08/12/2022, Additional history exists [...] as of this encounter Visit Diagnoses Diagnosis Orthostatic hypotension- Primary Stage 3b chronic kidney disease Paroxysmal atrial fibrillation (HCC) Atrial fibrillation Anemia in stage 3b chronic kidney disease (HCC) History of colonic polyps Personal history of [...] patient or by statute hierarchy) Care Teams Ornament Maker Hand Relationship Specialty Start Date End Date Tameka Hooper MD [address] [place] [address] [place] [address] PCP - General Family Medicine 05/29/19 documented as of this encounter
--- OUTSIDE RECORDS SUMMARY | 2023-11-22 22:28 | External Medical Summary | Summary of Care ---
Author Name Unknown Organization [facility] Address [address] [place] [address] Phone [phone] Care Team Providers Care Optical Engineering Technician Name Role Phone Tameka Hooper MD Primary Care Prov ider Reason for Visit * Reason Onset Date Comments Advice 09/28/2023 Encounter Details Date Type Department Care Team (Late st Contact Info) Description 09/28/2023 Telephone General Surgery, [facility] [address] [place] [address] Rik Saez MD [address] [place] [address] Advice Allergies Active Allergy Reactions Criticality Noted Date Comments Amoxicillin Rash 02/07/2020 Bactrim Rash 12/15/2011 Ciprofloxacin Rash 12/15/2011 Diltiazem Rash 05/29/2019 Piroxicam Rash 12/15/2011 Cephalexin Rash 12/15/2011 Meloxicam Rash 05/29/2019 Other reaction(s): Other Cilostazol Rash,Unknown 12/15/2011 Sulfamethoxazole High 01/19/2023 Other Reaction(s): Rash Trimethoprim High 01/19/2023 Other Reaction(s): Rash documented as of this encounter (statuses as of 10/13/2023) Medications Medication Sig Dispensed Refills Start Date [...] as of this encounter (statuses as of 10/13/2023) Active Problems Problem Noted Date Diagnosed Date [...] as of this encounter (statuses as of 10/13/2023) Resolved Problems Problem Noted Date Diagnosed Date [...] as of this encounter (statuses as of 10/13/2023) Immunizations Name Administration Dates Next Due COVID-19 [...] Telephone Encounter - Roz Pittman LPN - 10/13/2023 4:36 PM EDT Noted that incorrectly scheduled appt with Dr. Hooks has still not been addressed. Attempted to contact patient via phone, left message asking for return call to [facility] to be schedule with General Surgery purple team at [facility]. Bridget Pittman LPN Intake Nurse Navigator General Surgery and Breast Clinic [facility] * Telephone Encounter - Chanelle Everett LPN - 10/05/2023 2:08 PM EDT When patients come to [facility] for parastomal hernias they get a referral to General Surgery which wouldbe a wasted visit for the patient to come and be told they need to see a General Surgery Doctor to have the hernia repaired. * Telephone Encounter - Roz Pittman LPN - 10/05/2023 12:12 PM EDT Spoke with Chanelle Everett with [facility] Colorectal, parastomal hernias are definitely NOT seen by Colorectal and patient should be scheduled with the General Surgery Purple team. Bridget Pittman LPN Intake Nurse Navigator General Surgery and Breast [facility] * Telephone Encounter - Avani Arceo MED ASSIST - 10/02/2023 1:43 PM EDT Pt is scheduled for [facility] with Dr Hooks * Telephone Encounter - Delisa Felipe LPN - 10/02/2023 12:39 PM EDT Please call patient and schedule next available at [place] with Dr Rich * Telephone Encounter - Roz Pittman LPN - 09/28/2023 1:40 PM EDT Contacted primary number on chart and spoke with pt's DIL - states that they did not receive a callthis morning about the cancelled appointment, but also states that patient is not seeking surgical correction and just wants the area to be monitored. Also states that patient is at [facility] for the appointment at this time. Provided my direct line for callback when/if they decide to schedule - will offer Dr. Morley at [place], or Drs. Tinoco and Yani at [place], or [facility] if needed. Bridget Pittman LPN Intake Nurse Navigator General Surgery and Breast [facility] * Telephone Encounter - Delisa Felipe LPN - 09/28/2023 1:21 PM EDT No general surgeon will see this condition but the patient could be scheduled with Dr Rich at [place] as stated * Telephone Encounter - Tiffanie Frank CMA - 09/28/2023 1:17 PM EDT Patient could be seen by Dr Rich in [place]. Or schedule in [place] * Telephone Encounter - Jannette Pacheco LPN - 09/28/2023 8:31 AM EDT Called patient, left a message that dr Saez does not do parastomal hernias and she will have to go to [facility] for that. Asked her to call back. documented in this encounter Plan of Treatment Upcoming Encounters Date Type Department Care Team (Latest Contact Info) Description 10/23/2023 2:30 PM EDT Office Visit Rheumatology [address] [place] [phone] Jessica Stubbs CRNP [address] [facility] [place] [address] 10/26/2023 5:30 PM EDT Home Visit [facility] [address] [place] [address] Jodi Smallwood, STANISLAW [address] [place] [address] 10/31/2023 11:20 AM EDT Office Visit Family [address] [phone] Tameka Hooper MD [address] [place] [address] [place] [address] 10/31/2023 1:00 PM EDT Cardiac Studies Cardiac Studies, [facility] [address] [facility] [place] [address] 11/13/2023 11:00 AM EDT [facility] [place], [facility] [place] [address] Derick Miner PA-C [address] [place] [address] 11/14/2023 1:30 PM EDT Office Visit General Surgery, [facility] [address] [facility] [place] [address] Latrice Hooks MD [address] [place] [address] 11/23/2023 3:00 PM EDT Office Visit Family [address] [phone] Betsey Cramer CRNP [address] [place] [address] [place] [address] 11/24/2023 8:35 AM EDT Hospital Encounter OR [facility], Operating Room, [facility] - 4th Floor [address] [facility] [place] [address] Joshau Orantes MD 132 [facility] [place] [address] 11/24/2023 8:35 AM EDT - 11/24/2023 9:50 AM EDT Surgery OR [facility], Operating Room, [facility] - 4th Floor [address] [place] [address] Joshua Orantes MD [address] [place] [address] COLONOSCOPY FLEXIBLE PROXIMAL DIAGNOSTIC 02/20/2024 3:40 PM EDT Office Visit [facility] Disorders Ctr Nikole [facility] [place] [address] [place] [phone] Lynn Busby DO [address] [place] [address] 03/26/2024 1:30 PM EDT Office Visit Nephrology [address] [place] [address] ZemaitisAyana PA-C [address] [place] [address] 05/01/2024 3:00 PM EDT Office Visit Dermatology [address] [place] [address] Anya Pratt PA-C [address] [place] [address] [place] [address] Scheduled Procedures Name Priority Associated Diagnoses Date/Ti [...] SMARTSET #1146) 10/08/2023 CKD PHOS USE SMARTSET 52359 12/28/202312/02, 04/26/2022, 11/23/2021, Additional history exists Influenza Vaccine (FLU shot) (Season Ended) 2024 GFR 03/15/2024 09/13/2023, 08/31, 09/09/2023, Additional history exists DXA Scan 08/01/2024 08/01/2022, 07/05, 07/07/2020, Additional history exists Albumin/Creatinine Ratio 09/18/2024 024, 08/15/2022, 02/09/2021 CKD HGB USE SMARTSET 70556 09/18/202409/18, 09/11/2023, 09/08/2023, Additional history exists O2 [...] D LEVEL ONCE IN A LIFETIME-USE SMARTSET# [id number] Completed 09/19/2023, 12/27/2022, 08/12/2022, Additional history exists [...] patient or by statute hierarchy) Care Teams Optical Engineering Technician Relationship Specialty Start Date End Date Tameka Hooper MD [address] [place] [address] [place] [address] PCP - General Family Medicine 05/29/19 documented as of this encounter
--- OUTSIDE RECORDS SUMMARY | 2023-11-22 22:28 | External Medical Summary | Summary of Care ---
Author Name Unknown Organization [facility] Address [address] [place] [address] Phone [phone] Care Team Providers Care Head Of Conservation Name Role Phone Tameka Hooper MD Primary Care Prov ider Reason for Visit * Reason Onset Date Comments Blood Pressure Problem 10/05/2023 Encounter Details Date Type Department Care Team (Late st Contact Info) Description 10/05/2023 Telephone Family Medicine [address] [phone] Tameka Hooper MD [address] [place], [place] [address] [address] Blood Pressure Problem Allergies Active Allergy [...] Telephone Encounter - Puja Starr LPN - 10/13/2023 8:39 AM EDT Faxed to [place]. * Telephone Encounter - Tameka Hooper MD - 10/12/2023 2:51 PM EDT Hold Lisinopril 10mg if BP < = 120/80 * Telephone Encounter - Tiffanie Wyatt LPN - 10/12/2023 1:56 PM EDT HH Concerns Liya RODRIGUEZ, Calling from: [place] Report/Concerns of: Medication Related [...] if still hypotensive. Please call back to and patient to follow up. * Telephone Encounter - Vesna Yousif LPN - 10/05/2023 10:56 AM EDT Concerns Margot PT, Calling from: [place] Report/Concerns [...] 2:30 PM EDT Office Visit Rheumatology [address] [place] [phone] Jessica Stubbs CRNP [address] [place] [address] [place] [address] 10/26/2023 5:30 PM EDT Home Visit [facility] [address] [place] [address] Jodi Smallwood RN [address] [place] [address] 10/31/2023 11:20 AM EDT Office Visit Family Medicine [address] [place] [phone] Tameka Hooper MD [address] [place] [address] [place] [address] 10/31/2023 1:00 PM EDT Cardiac Studies Cardiac Studies, [facility] [address] [place] [address] 11/13/2023 11:00 AM EDT [facility] Visit [facility] [place], [facility] [address] [place] [address] Derick Miner PA-C [address] [place] [address] 11/14/2023 1:30 PM EDT Office Visit General Surgery, [facility] [address] [place] [address] Latrice Hooks MD [address] [place] [address] 11/23/2023 3:00 PM EDT Office Visit Family Medicine [address] [place] [phone] Betsey Cramer [address] [place] [address] 11/24/2023 8:35 AM EDT Hospital Encounter OR [facility], Operating Room, [facility] - 4th Floor [address] [facility] [place] [address] Joshua Orantes MD [address] [place] [address] 11/24/2023 8:35 AM EDT - 11/24/2023 9:50 AM EDT Surgery OR [facility], Operating Room, [facility] - 4th Floor [address] [facility] [place] [address] Joshua Orantes MD [address] [place] [address] COLONOSCOPY FLEXIBLE PROXIMAL DIAGNOSTIC 02/20/2024 3:40 PM EDT Office Visit Sleep Disorders Ctr [facility]ole [facility] [address] [place] [phone] Lynn Busby DO [address] [place] [address] 03/26/2024 1:30 PM EDT Office Visit Nephrology [address] [place] [address] Ayana Anna PA-C [address] [place] [address] 05/01/2024 3:00 PM EDT Office Visit Dermatology [address] [place] [address] Anya Pratt PA-C [address] [place] [address] [place] [address] Scheduled Procedures Name Priority Associated Diagnoses Date/Ti [...] SMARTSET #1146) 10/08/2023 CKD PHOS USE SMARTSET 10208 12/28/202312/02, 04/26/2022, 11/23/2021, Additional history exists Influenza Vaccine (FLU shot) (Season Ended) 2024 GFR 03/15/2024 09/13/2023, 08/31, 09/09/2023, Additional history exists DXA Scan 08/01/2024 08/01/2022, 07/05, 07/07/2020, Additional history exists Albumin/Creatinine Ratio 09/18/2024 024, 08/15/2022, 02/09/2021 CKD HGB USE SMARTSET 30492 09/18/202409/18, 09/11/2023, 09/08/2023, Additional history exists O2 [...] D LEVEL ONCE IN A LIFETIME-USE SMARTSET# 51557 Completed 09/19/2023, 12/27/2022, 08/12/2022, Additional history exists [...] patient or by statute hierarchy) Care Teams Head Of Conservation Relationship Specialty Start Date End Date Tameka Hooper MD [address] [place] [address] [place] [address] PCP - General Family Medicine 05/29/19 documented as of this encounter
[2023-11-23 06:32] LABS: Albumin Globulin Ratio 0.9 (0.9-2); Albumin Level 2.9 gm/dl (3.4-5.0); BUN Creatinine Ratio 16.1 (10-20); Bilirubin,Total 0.3 mg/dl (0.2-1.0); Calcium 8.5 mg/dl (8.6-10.3); Est GFR (African American) 37.8 ml/min; Est GFR (Non-African American) 32.6 ml/min; Globulin 3.1 gm/dl (2.5-4.0); Potassium 3.7 mmol/L (3.5-5.1)
[2023-11-23 06:39] LABS: Hematocrit (blood only) 22.5 % (37.0-47.0); Hemoglobin 6.9 g/dl (12.0-16.0); Mean Corpuscular Hemoglobin 29.6 pg (25.0-34.0); Mean Corpuscular Hgb Conc 30.7 g/dL (32.0-36.0); Mean Corpuscular Volume 96.6 fL (80.0-100.0); Mean Platelet Volume 8.8 fL (9.4-12.4); Platelet Count 300 K/uL (130-400); RDW Coefficient of Variation 15.2 % (11.5-14.5); RDW Standard Deviation 52.9 fL (36.4-46.3); Red Blood Count 2.33 M/uL (4.20-5.40); White Blood Count 9.48 K/ul (4.8-10.8)
[2023-11-23 06:40] LABS: Basophils # (auto) 0.03 K/uL (0.00-0.20); Basophils % (auto) 0.3 %; Eosinophils # (auto) 0.33 K/uL (0.00-0.50); Eosinophils % (auto) 3.5 %; Immature Granulocytes # (auto) 0.12 K/uL (0.01-0.20); Immature Granulocytes % (auto) 1.3 %; Lymphocytes # (auto) 1.72 K/uL (1.20-3.40); Lymphocytes % (auto) 18.1 %; Monocytes # (auto) 1.42 K/uL (0.11-0.59); Neutrophils # (auto) 5.86 K/uL (1.40-6.50); Neutrophils % (auto) 61.8 %; Polychromasia 1+
[2023-11-23] MEDS ORDERED: SODIUM CHLORIDE 0.9% 250 ML IV PRN (08:10)
[2023-11-23] MEDS ORDERED: OMEGA PO SCH (09:00)
[2023-11-23] MEDS ORDERED: FATTY ACIDS PO SCH (09:00)
[2023-11-23] MEDS ORDERED: NON-FORMULARY MEDICATION (Vit C,E-Zn-Coppr-Lutein-Zeaxan [Preservision Areds-2] 250-200-40 PO SCH (09:00)
[2023-11-23] MEDS: ASCORBIC ACID 500 MG TAB PO SCH (10:21)
[2023-11-23] MEDS: ESCITALOPRAM OXALATE 10 MG TAB PO SCH (10:21)
[2023-11-23] MEDS: FERROUS SULFATE 325 MG TAB PO SCH (10:21)
[2023-11-23] MEDS: OXYBUTYNIN CHLORIDE XL 5 MG TABCR PO SCH (10:21)
[2023-11-23] MEDS: FUROSEMIDE 20 MG TAB PO SCH (10:21)
[2023-11-23] MEDS: UMECLIDINIUM/VILANTEROL 62.5/25MCG 7 PUFFS/INHALER INH SCH (10:22)
[2023-11-23] MEDS: VERAPAMIL HCL 120 MG TABCR PO SCH (10:22)
--- NOTE | 2023-11-23 15:13 | Hospitalist Progress Note ---
Date of Service November 23, 2023 Assessment & Plan (1) Acute UTI: Plan: Acute UTI Possible pyelonephritis Patient presents with bilateral back and flank pain. Leukocytosis present on admission Urinalysis suggestive of possible infection CT abdomen pelvis on admission showed wall thickening and moderately distended bladder with surrounding stranding which may represent cystitis. Mild left renal pelvic caliectasis and surrounding stranding. Urine culture growing 3 types of organisms; all high counts Blood cultureno growth in 24 hours Continue empiric antibiotics with ceftriaxone Will obtain repeat urine culture Anemia Possible GI loss Patient's hemoglobin down trended from 8.2-6.9 No gross bleeding noted through the colostomy tube Similar situation last admission; patient was evaluated by GI at the time. Did not go in for evaluation. Will transfuse 1 unit of blood Will start on Protonix IV twice daily Hold Xarelto for the time being Chronic hypoxic respiratory failure on 3 L oxygen History of COPD Obstructive sleep apnea Patient reports chronic cough for several weeks symptoms nonproductive CT chest shows emphysema and interstitial thickening without evidence of p neumonia, mild bronchiectasis seen with atelectasis. 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 Patient reports decreased output for several days Will start bowel regimen with MiraLAX and milk of magnesia Monitor colostomy output On mesalamine Hypertension Continue Verapamil with holding parameters History of A-fib Continue Verapamil with holding parameters On Xarelto, continue GERD On Protonix DVT prophylaxis scds, xarelto on hold Disposition Med/telemetry Time spent evaluating patient, direct bedside care, chart review, placing orders, interpretation of diagnostic studies, discussion with consultants, patient, and family members, as well as other required patient management activities is 50 minutes Please note the above document was generated using voice recognition software. It may contain grammatical, syntax or spelling errors. Any formal questions or concerns about the content, text or information contained within the body of this dictation should be directly addressed to the provider for clarification Admission and Anticipated Discharge Date Admission Date: November 22, 2023 Subjective Patient seen and examined at bedside She is sitting up on the chair at the side of the bed; not in distress No significant improvement in cough Review of Systems Review of Systems: All systems reviewed & are unremarkable except as noted in Subjective Physical Exam Physical Exam: Constitutional: Alert oriented x 3; not in distress Respiratory: Bilateral clear vesicular breath sound Cardiovascular: RRR, no murmur, no edema Vessels: no JVD or carotid bruit Chest: normal inspection of chest Abdomen: normal bowel sounds, soft, nontender, no hepatosplenomegaly Musculoskeletal: no cyanosis or clubbing, extremities motor strength 5/5 Skin: no rashes, warm and dry normal turgor Neurologic: PERRL, EOMI, accommodation nl, no face palsy, no dysarthria CN's II- XI intact bilaterally and moves all extremities Psychiatric: A+Ox3, euthymic affect Results & Data Results & Data Vital Signs (Past 12 Hours) Vital Signs Temp Pulse Pulse Resp BP BP Pulse Ox 11/23/23 14:06 79 16 94 11/23/23 13:35 36.9 C 74 18 131/66 94 11/23/23 12:35 37.0 C 80 18 127/69 93 11/23/23 12:05 36.7 C 70 18 118/49 L 94 11/23/23 11:50 36.7 C 70 18 124/64 94 11/23/23 11:39 11/23/23 11:34 36.6 C 72 18 125/65 95 11/23/23 10:28 68 18 92 11/23/23 09:48 65 11/23/23 07:35 36.9 C 58 L 19 117/64 91 11/23/23 06:59 68 16 96 O2 Del Method O2 Flow Rate 11/23/23 14:06 Nasal Cannula 3 11/23/23 13:35 3 11/23/23 12:35 3 11/23/23 12:05 3 11/23/23 11:50 3 11/23/23 11:39 Nasal Cannula 3 11/23/23 11:34 11/23/23 10:28 Nasal Cannula 4 11/23/23 09:48 11/23/23 07:35 Nasal Cannula 4.0 11/23/23 06:59 Nasal Cannula 3
[2023-11-23] MEDS: PANTOprazole 40 MG in SYRINGE 0 ML IV SCH (21:13)
[2023-11-23] MEDS: MESALAMINE 800 MG TABCR PO SCH (21:38)
[2023-11-24 06:38] LABS: Basophils # (auto) 0.03 K/uL (0.00-0.20); Basophils % (auto) 0.3 %; Eosinophils # (auto) 0.46 K/uL (0.00-0.50); Eosinophils % (auto) 4.6 %; Hematocrit (blood only) 27.4 % (37.0-47.0); Hemoglobin 8.5 g/dl (12.0-16.0); Immature Granulocytes # (auto) 0.15 K/uL (0.01-0.20); Immature Granulocytes % (auto) 1.5 %; Lymphocytes # (auto) 1.68 K/uL (1.20-3.40); Mean Corpuscular Hemoglobin 29.7 pg (25.0-34.0); Mean Corpuscular Volume 95.8 fL (80.0-100.0); Mean Platelet Volume 8.8 fL (9.4-12.4); Monocytes # (auto) 1.22 K/uL (0.11-0.59); Monocytes % (auto) 12.3 %; Neutrophils # (auto) 6.36 K/uL (1.40-6.50); Neutrophils % (auto) 64.3 %; Platelet Count 324 K/uL (130-400); RDW Coefficient of Variation 15.4 % (11.5-14.5); Red Blood Count 2.86 M/uL (4.20-5.40)
[2023-11-24 07:03] LABS: BUN Creatinine Ratio 15.2 (10-20); Calcium 8.2 mg/dl (8.6-10.3); Creatinine Clr Calc Pharmacy 22.2 ml/min; Est GFR (Non-African American) 27.6 ml/min; Potassium 3.5 mmol/L (3.5-5.1)
[2023-11-24] MEDS: oxyCODONE HCL IR 5 MG TAB (IMMEDIATE RELEASE) PO PRN (11:08)
[2023-11-24] MEDS: HEPARIN SOD 5,000 UNIT/0.5 ML VIAL SQ SCH (13:23)
--- NOTE | 2023-11-24 15:34 | Hospitalist Progress Note ---
Date of Service November 24, 2023 Assessment & Plan (1) Acute UTI: Plan: Acute UTI Possible pyelonephritis Patient presents with bilateral back and flank pain. Leukocytosis present on admission Urinalysis suggestive of possible infection CT abdomen pelvis on admission showed wall thickening and moderately distended bladder with surrounding stranding which may represent cystitis. Mild left renal pelvic caliectasis and surrounding stranding. Urine culture growing 3 types of organisms; all high counts Blood cultureno growth in 24 hours Continue empiric antibiotics with ceftriaxone. Plan to treat for 5 days. Anemia Possible GI loss Patient's hemoglobin down trended from 8.2-6.9 No gross bleeding noted through the colostomy tube Similar situation last admission; patient was evaluated by GI at the time. Did not undergo egd/colonoscpy s/p 1 unit of packed RBC transfusion Continue on Protonix IV twice daily Started on dvt prophylaxis with heparin.Hold Xarelto for the time being. Monitor for bleeding. Fecal occult pending Chronic hypoxic respiratory failure on 3 L oxygen History of COPD Obstructive sleep apnea Patient reports chronic cough for several weeks symptoms nonproductive CT chest shows emphysema and interstitial thickening without evidence of pneumonia, mild bronchiectasis seen with atelectasis. 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 Patient reports decreased output for several days Will start bowel regimen with MiraLAX and milk of magnesia Monitor colostomy output On mesalamine Hypertension Continue Verapamil with holding parameters History of A-fib Continue Verapamil with holding parameters On Xarelto, continue GERD On Protonix DVT prophylaxis Heparin, xarelto on hold Disposition Med/telemetry. PT OT eval pending Time spent evaluating patient, direct bedside care, chart review, placing orders, interpretation of diagnostic studies, discussion with consultants, patient, and family members, as well as other required patient management activities is 50 minutes Please note the above document was generated using voice recognition software. It may contain grammatical, syntax or spelling errors. Any formal questions or concerns about the content, text or information contained within the body of this dictation should be directly addressed to the provider for clarification Admission and Anticipated Discharge Date Admission Date: November 22, 2023 Subjective Patient seen and examined at bedside. She is comfortable; reports back pain intermittently. Review of Systems Review of Systems: All systems reviewed & are unremarkable except as noted in Subjective Physical Exam Physical Exam: Constitutional: Alert oriented x 3; not in distress Respiratory: Bilateral clear vesicular breath sound Cardiovascular: RRR, no murmur, no edema Vessels: no JVD or carotid bruit Chest: normal inspection of chest Abdomen: normal bowel sounds, soft, nontender, no hepatosplenomegaly Musculoskeletal: no cyanosis or clubbing, extremities motor strength 5/5 Skin: no rashes, warm and dry normal turgor Neurologic: PERRL, EOMI, accommodation nl, no face palsy, no dysarthria CN's II- XI intact bilaterally and moves all extremities Psychiatric: A+Ox3, euthymic affect Results & Data Results & Data Vital Signs (Past 12 Hours) Vital Signs Temp Pulse Pulse Resp BP Pulse Ox O2 Del Method 11/24/23 14:28 72 16 94 Nasal Cannula 11/24/23 11:32 36.4 C L 84 18 148/52 H 97 Nasal Cannula 11/24/23 11:22 77 17 94 Nasal Cannula 11/24/23 08:37 64 11/24/23 08:00 36.8 C 68 93 H 147/62 H Nasal Cannula 11/24/23 07:39 Nasal Cannula 11/24/23 07:10 74 17 94 Nasal Cannula O2 Flow Rate 11/24/23 14:28 3 11/24/23 11:32 3.0 11/24/23 11:22 3 11/24/23 08:37 11/24/23 08:00 3.0 11/24/23 07:39 3 11/24/23 07:10 3
[2023-11-25 08:33] LABS: Basophils # (auto) 0.04 K/uL (0.00-0.20); Basophils % (auto) 0.4 %; Eosinophils # (auto) 0.52 K/uL (0.00-0.50); Eosinophils % (auto) 5.1 %; Hematocrit (blood only) 27.8 % (37.0-47.0); Hemoglobin 8.5 g/dl (12.0-16.0); Immature Granulocytes # (auto) 0.17 K/uL (0.01-0.20); Immature Granulocytes % (auto) 1.7 %; Lymphocytes # (auto) 1.73 K/uL (1.20-3.40); Lymphocytes % (auto) 16.9 %; Mean Corpuscular Hemoglobin 29.4 pg (25.0-34.0); Mean Corpuscular Hgb Conc 30.6 g/dL (32.0-36.0); Mean Corpuscular Volume 96.2 fL (80.0-100.0); Mean Platelet Volume 8.8 fL (9.4-12.4); Monocytes # (auto) 1.17 K/uL (0.11-0.59); Monocytes % (auto) 11.4 %; Neutrophils # (auto) 6.63 K/uL (1.40-6.50); Neutrophils % (auto) 64.5 %; Platelet Count 330 K/uL (130-400); RDW Standard Deviation 52.5 fL (36.4-46.3); Red Blood Count 2.89 M/uL (4.20-5.40); White Blood Count 10.26 K/ul (4.8-10.8)
[2023-11-25 08:58] LABS: BUN Creatinine Ratio 12.5 (10-20); Calcium 8.4 mg/dl (8.6-10.3); Creatinine Clr Calc Pharmacy 22.9 ml/min; Est GFR (African American) 32.7 ml/min; Est GFR (Non-African American) 28.2 ml/min; Potassium 3.9 mmol/L (3.5-5.1)
[2023-11-25] MEDS: MAGNESIUM HYDROXIDE SUSP 30 ML UDC PO SCH (14:27)
--- NOTE | 2023-11-25 16:15 | Hospitalist Progress Note ---
Date of Service November 25, 2023 Assessment & Plan (1) Acute UTI: Plan: Acute UTI- ruled out Possible pyelonephritis Patient presents with bilateral back and flank pain. Leukocytosis present on admission Urinalysis suggestive of possible infection CT abdomen pelvis on admission showed wall thickening and moderately distended bladder with surrounding stranding which may represent cystitis. Mild left renal pelvic caliectasis and surrounding stranding. Urine culture growing 3 types of organisms; all high counts Blood cultureno growth in 24 hours Discontinue antibiotics as urine culture did not grow any organism Continue to monitor Anemia Possible GI loss Patient's hemoglobin down trended from 8.2-6.9 No gross bleeding noted through the colostomy tube Similar situation last admission; patient was evaluated by GI at the time. Did not undergo egd/colonoscpy s/p 1 unit of packed RBC transfusion Continue on Protonix IV twice daily Resume Xarelto, monitor for bleeding Monitor for bleeding. Fecal occult pending Chronic hypoxic respiratory failure on 3 L oxygen History of COPD Obstructive sleep apnea Patient reports chronic cough for several weeks symptoms nonproductive CT chest shows emphysema and interstitial thickening without evidence of pneumonia, mild bronchiectasis seen with atelectasis. 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 Patient reports decreased output for several days Will start bowel regimen with MiraLAX and milk of magnesia Monitor colostomy output On mesalamine Hypertension Continue Verapamil with holding parameters History of A-fib Continue Verapamil with holding parameters On Xarelto, continue GERD On Protonix DVT prophylaxis Xarelto Disposition Med/telemetry. PT OT eval recommend rehab; awaiting placement Please note the above document was generated using voice recognition software. It may contain grammatical, syntax or spelling errors. Any formal questions or concerns about the content, text or information contained within the body of this dictation should be directly addressed to the provider for clarification Admission and Anticipated Discharge Date Admission Date: November 22, 2023 Subjective Patient seen and examined at bedside. She reports her back pain has improved compared to yesterday with addition of oxycodone. Vital stable; Review of Systems Review of Systems: All systems reviewed & are unremarkable except as noted in Subjective Physical Exam Physical Exam: Constitutional: Alert oriented x 3; not in distress Respiratory: Bilateral clear vesicular breath sound Cardiovascular: RRR, no murmur, no edema Vessels: no JVD or carotid bruit Chest: normal inspection of chest Abdomen: normal bowel sounds, soft, nontender, no hepatosplenomegaly Musculoskeletal: no cyanosis or clubbing, extremities motor strength 5/5 Skin: no rashes, warm and dry normal turgor Neurologic: PERRL, EOMI, accommodation nl, no face palsy, no dysarthria CN's II- XI intact bilaterally and moves all extremities Psychiatric: A+Ox3, euthymic affect Results & Data Results & Data Vital Signs (Past 12 Hours) Vital Signs Temp Pulse Pulse Resp BP Pulse Ox O2 Del Method 11/25/23 15:24 77 20 90 Nasal Cannula 11/25/23 15:00 78 11/25/23 11:33 36.7 C 68 19 157/60 H 94 Nasal Cannula 11/25/23 11:24 69 18 95 Nasal Cannula 11/25/23 09:00 Nasal Cannula 11/25/23 08:12 37.0 C 72 19 150/66 H 91 Nasal Cannula 11/25/23 08:00 72 11/25/23 07:33 74 18 87 L Nasal Cannula O2 Flow Rate 11/25/23 15:24 4 11/25/23 15:00 11/25/23 11:33 4.0 11/25/23 11:24 4 11/25/23 09:00 4 11/25/23 08:12 4.0 11/25/23 08:00 11/25/23 07:33 3
[2023-11-25] MEDS: ONDANSETRON INJ 2 MG/ML 2 ML VIAL IV PRN (20:59)
[2023-11-26 06:33] LABS: Basophils # (auto) 0.03 K/uL (0.00-0.20); Basophils % (auto) 0.2 %; Eosinophils % (auto) 2.3 %; Hematocrit (blood only) 32.9 % (37.0-47.0); Hemoglobin 10.1 g/dl (12.0-16.0); Immature Granulocytes % (auto) 1.5 %; Lymphocytes # (auto) 1.37 K/uL (1.20-3.40); Lymphocytes % (auto) 10.6 %; Mean Corpuscular Hemoglobin 29.9 pg (25.0-34.0); Mean Corpuscular Hgb Conc 30.7 g/dL (32.0-36.0); Mean Corpuscular Volume 97.3 fL (80.0-100.0); Mean Platelet Volume 8.8 fL (9.4-12.4); Monocytes # (auto) 1.49 K/uL (0.11-0.59); Monocytes % (auto) 11.5 %; Neutrophils # (auto) 9.57 K/uL (1.40-6.50); Neutrophils % (auto) 73.9 %; Platelet Count 409 K/uL (130-400); RDW Coefficient of Variation 14.8 % (11.5-14.5); RDW Standard Deviation 52.8 fL (36.4-46.3); Red Blood Count 3.38 M/uL (4.20-5.40); White Blood Count 12.96 K/ul (4.8-10.8)
[2023-11-26 07:00] LABS: BUN Creatinine Ratio 13.8 (10-20); Creatinine Clr Calc Pharmacy 25.1 ml/min; Est GFR (African American) 36.9 ml/min; Est GFR (Non-African American) 31.8 ml/min; Potassium 4.3 mmol/L (3.5-5.1)
--- NOTE | 2023-11-26 07:45 | XRay Report ---
XR KUB/Abdomen 1 view CLINICAL HISTORY: distended abdomen TECHNIQUE: 1 view of the abdomen was obtained. Comparison: Comparison is made to abdomen radiograph 08/07/2023 FINDINGS: Lung bases are unremarkable. Degenerative changes are seen in the visualized skeleton. The bowel gas pattern is nonobstructive. A moderate amount of stool is noted within the large bowel. Vascular calci fications are seen. IMPRESSION: Nonobstructive bowel gas pattern. ACT 112: Negative or not required by law. Electronically signed by: Yoel Elena M.D. 11/26/2023 7:44 AM
--- NOTE | 2023-11-26 07:46 | XRay Report ---
XR chest 1V portable CLINICAL HISTORY: sob TECHNIQUE: Single frontal radiograph of the chest was obtained. Comparison: Comparison is made to chest radiograph 11/22/2023 FINDINGS: No lines and tubes are seen. Cardiomegaly is noted. The aortic arch is calcified. The lungs are clear . Blunting of the left costophrenic angle is stable which may be due to extrapleural fat, however a l eft pleural effusion cannot be excluded. IMPRESSION: Possible small left pleural effusion. ACT 112: Negative or not required by law. Electronically signed by: Yoel Elena M.D. 11/26/2023 7:45 AM
--- NOTE | 2023-11-26 08:24 | CT Scan Report ---
CT abd pelvis wo con CLINICAL HISTORY: concern for SBO TECHNIQUE: Helical axial images of the abdomen and pelvis were obtained. Automated dose lowering tech niques and/or adjustment according to patient size were utilized for this exam. This exam was perfor med without intravenous contrast. CT DOSE: 1160.98 mGy.cm COMPARISON: Comparison is made to CT abdomen pelvis 11/22/2023 FINDINGS: Lower chest: Emphysema and trace bilateral airspace opacities are seen which may represent atelectas is, pneumonia, and/or aspiration. Liver: Unremarkable. No focal lesions are seen. Gallbladder and biliary tree: Cholelithiasis is seen without evidence of cholecystitis. No intra- or extrahepatic biliary ductal dilation. Pancreas: Unremarkable, no focal lesions. Spleen: Unremarkable. Adrenals: Unremarkable. Kidneys and ureters: Nonobstructive nephrolithiasis is seen. Left pelvocaliectasis is again seen with out evidence of obstructive stone. Bladder: Unremarkable. Reproductive organs: Unremarkable. Bowel: Multiple dilated loops of small bowel are seen measuring up to 37 mm in diameter. Postsurgical changes of partial colectomy with a left lower quadrant colostomy and Hernandez's pouch. A large vania tomal hernia is again seen. There is a distal transition point in the inferior aspect of the hernia s ac in the mid to distal ileum (series 3 image #15). No proximal transition point is seen. The colon i s not under distended. Lymph nodes Retroperitoneal: Unremarkable. Pelvic: Unremarkable. Mesenteric: Unremarkable. Peritoneum: Normal. Vessels: Atherosclerotic calcifications are seen. Abdominal wall: A large parastomal hernia is seen containing multiple loops of large and small bowel. There is a midline umbilical hernia containing a portion of a loop of large bowel. Bones: Degenerative changes in the visualized spine. IMPRESSION: 1. Findings compatible with partial small bowel obstruction with a transition point at the ileum at the inferior aspect of the hernia sac. 2. Nonobstructive renal stones. 3. Parastomal hernia. 4. Additional findings as above. ACT 112: Negative or not required by law. Electronically signed by: Yoel Elena M.D. 11/26/2023 8:21 AM
--- NOTE | 2023-11-26 10:39 | Surgery Consultation ---
Date of Consultation November 26, 2023 Assessment & Plan (1) Parastomal hernia: Large parastomal hernia and associated small bowel obstruction. I believe I reduced a good portion of this at the bedside. Given her surgical history and the large parastomal hernia, these are hard to fix. She would not be a candidat e for surgery at this institution if her bowel obstruction does not resolve with nonoperative measures. Agree with an NG tube. Consider transfer if no resolution in the next few days. Surgery will continue to follow, hopefully she will respond to nonoperative management reduction of the hernia. (2) Small bowel obstruction: History of Present Illness Attending Physician: Salvador Hoskins MD History of Present Illness consulted for sbo. h/o hollis's for diverticulitis, known large parastomal and midline hernias. No prior obstruction associated with this. Hasn't had much ostomy output since admission. started having pain and nausea/vomiting over past day. CT with large parastomal hernia associated with bowel obstruction. Allergies Allergy/AdvReac Type Severity Reaction Status Date / Time amoxicillin Allergy Intermediate Rash Verified 10/12/23 20:55 cephalexin [From Keflex] Allergy Intermediate Rash Verified 10/12/23 20:55 cilostazol [From Pletal] Allergy Intermediate Rash Verified 10/12/23 20:55 ciprofloxacin [From Cipro] Allergy Intermediate Rash Verified 10/12/23 20:55 diltiazem Allergy Intermediate Rash Verified 10/12/23 20:55 felodipine Allergy Intermediate Rash Verified 10/12/23 20:55 meloxicam Allergy Intermediate Rash Verified 10/12/23 20:55 sulfamethoxazole Allergy Intermediate Rash Verified 10/12/23 20:55 [From Bactrim] trimethoprim [From Bactrim] Allergy Intermediate Rash Verified 10/12/23 20:55 Home Medications Medication Instructions Recorded Confirmed Type calcium carbonate 500 mg-vitamin 1 tab PO QPM 03/10/19 11/22/23 History D3 10 mcg (400 unit) tablet (Calcium 500 + D) escitalopram oxalate 10 mg tablet 10 mg PO QAM 03/10/19 11/22/23 History (Lexapro) ferrous sulfate 325 mg (65 mg 325 mg PO QAM 03/10/19 11/22/23 History iron) tablet vit C 250 mg-vit E 90 mg-zinc 40 1 tab PO QAM 03/10/19 11/22/23 History mg-copper 1 [id number] capsule (PreserVision AREDS-2) guaifenesin 600 mg tablet, 600 mg PO BID #60 tabs 07/16/20 11/22/23 Rx extended release 12 hr (Mucinex) ascorbic acid (vitamin C) 500 mg 500 mg PO QAM 12/08/20 11/22/23 History tablet (Vitamin C) cyclosporine 0.05 % eye drops in a 1 drp OPB BID 12/08/20 11/22/23 History dropperette (Restasis) Portable Oxygen #1 ea 03/25/21 08/28/23 Rx rivaroxaban 15 mg tablet (Xarelto) 15 mg PO QPM 11/05/21 11/22/23 History Auto Titrating CPAP #1 ea 02/03/23 08/28/23 Rx CPAP Supplies #1 ea 02/03/23 08/28/23 Rx budesonide 0.25 mg/2 mL suspension 0.25 mg (2 mL) inhalation BID #60 02/03/23 11/22/23 Rx for nebulization mL umeclidinium 62.5 mcg-vilanterol 1 inh inhalation QAM #60 ea 02/03/23 11/22/23 Rx 25 mcg/actuation powdr for inhalation (Anoro Ellipta) mesalamine 1.2 gram tablet,delayed 3.6 g PO QAM 03/14/23 11/22/23 History release acetaminophen 325 mg tablet 325 mg PO Q6H PRN PAIN/FEVER 07/25/23 11/22/23 History (Tylenol) ipratropium 0.5 mg-albuterol 3 mg 3 ml inhalation Q4H PRN Wheezing 07/25/23 11/22/23 History (2.5 mg base)/3 mL nebulization soln omega-3 fatty acids 500 mg capsule 500 mg PO QAM 07/25/23 11/22/23 History solifenacin 5 mg tablet 5 mg PO QAM 07/25/23 11/22/23 History furosemide 20 mg tablet 20 mg PO QAM 08/28/23 11/22/23 History albuterol sulfate 90 mcg/actuation 1 inh inhalation DIRECTED PRN 10/12/23 11/22/23 History aerosol inhaler (ProAir HFA) Shortness Of Breath denosumab 60 mg/mL subcutaneous 60 mg subcut .[id number] 10/12/23 11/22/23 History syringe (Prolia) verapamil 120 mg tablet,extended 120 mg PO QAM 10/12/23 11/22/23 History release pantoprazole 40 mg tablet,delayed 40 mg PO BID #60 tabs 10/16/23 11/22/23 Rx release Patient History Medical History Osteoarthritis Chronic back pain Diverticular disease Skin cancer of nose 1970s--unsure which kind, removed in office On anticoagulant therapy xarelto daily On home oxygen therapy 4L N/C PRN Depression Macular degeneration Surgical History History of appendectomy taken out during resection of bowel History of colonoscopy History of tooth extraction History of cataract extraction with lens replacement bilateral History of tonsillectomy History of tubal ligation History of resection of large bowel (~10/2018) perforated bowel d/t diverticulitis History of creation of ostomy 10/2018 Family History Father Pancreatic cancer Mother Stroke Other No family history of adverse response to anesthesia Social History Smoking Status: Current every day smoker Tobacco Type: Cigarettes Age Started Using Tobacco: 22; Cigarettes Per Day: 1-2 cigarettes per day; Second Hand Exposure: No; Do You Dip or Chew Tobacco: No; Hx Alcohol Use: No Hx Substance Use: No Preferred Language: Tajik Communication Ability: Effective Clip On Sunglasses Assembler Required: No Beliefs That Will Affect Care: None marital status: / Current Living Situation: Alone Current Living Situation Comment: Lives home alone, family checks in often, and has home health Feels Safe at Home: Yes Safety Concerns: Feels Safe At This Time Assistive Devices: CPAP, Nebulizer, Oxygen - Continuous and Walker Review of Systems Review of Systems: All systems reviewed & are unremarkable except as noted in HPI & below Physical Exam Constitutional: WD/WN, vitals as above + obese Respiratory: normal respiratory effort, lungs clear to auscultation Cardiovascular: RRR, no murmur, no edema Gastrointestinal (Abdomen): Inspection/Auscultation: + abdominal surgical scar Percussion/Palpation: + abdomen tender and + hernia Musculoskeletal: Ostomy pink and congested. No gas or stool in the bag. Large parastomal hernia, partially reduced, mildly tender Results & Data Vital Signs (Past 12 Hours) Vital Signs Temp Pulse Pulse Resp BP Pulse Ox O2 Del Method 11/26/23 07:26 37.4 C 88 19 146/62 H 94 Nasal Cannula 11/26/23 07:10 88 20 85 L Nasal Cannula 11/26/23 03:03 37.1 C 85 19 148/73 H 90 Nasal Cannula 11/25/23 23:00 87 11/25/23 22:58 37.2 C 88 18 153/70 H 90 Nasal Cannula O2 Flow Rate 11/26/23 07:26 4.0 11/26/23 07:10 3 11/26/23 03:03 3 11/25/23 23:00 11/25/23 22:58 3 Laboratory Results Laboratory Results - last 24 hr 11/26/23 05:42 WBC 12.96 H RBC 3.38 L Hgb 10.1 L Hct 32.9 L MCV 97.3 MCH 29.9 MCHC 30.7 L RDW Std Deviation 52.8 H RDW Coeff of [place] 14.8 H Plt Count 409 H MPV 8.8 L Immature Gran % (Auto) 1.5 Neut % (Auto) 73.9 Lymph % (Auto) 10.6 [place] % (Auto) 11.5 Eos % (Auto) 2.3 Baso % (Auto) 0.2 Neut # (Auto) 9.57 H Lymph # (Auto) 1.37 [place] # (Auto) 1.49 H Eos # (Auto) 0.30 Baso # (Auto) 0.03 Immature Gran # (Auto) 0.20 Sodium 140 Potassium 4.3 Chloride 94 L Carbon Dioxide 39 H Anion Gap 7 BUN 21 Creatinine 1.52 H Est Cr Clr Drug Dosing 25.1 Est GFR ( Amer) 36.9 Est GFR (Non-Af Amer) 31.8 BUN/Creatinine Ratio 13.8 Glucose 122 H Calcium 9.[address] personally reviewed and interpreted, agree with the assessment of large parastomal hernia along with a large midline hernia. There is a transition point with some dilated bowel approximately within the large parastomal hernia. This was not present on prior imaging. Chest X-Ray 11/25/23 20:46 XR chest 1V portable CLINICAL HISTORY: sob TECHNIQUE: Single frontal radiograph of the chest was obtained. Comparison: Comparison is made to chest radiograph 11/22/2023 FINDINGS: No lines and tubes are seen. Cardiomegaly is noted. The aortic arch is calcified. The lungs are clear. Blunting of the left costophrenic angle is stable which may be due to extrapleural fat, however a left pleural effusion cannot be excluded. IMPRESSION: Possible small left pleural effusion. ACT 112: Negative or not required by law. Electronically signed by: Yoel Elena M.D. 11/26/2023 7:45 AM KUB X-Ray 11/25/23 20:46 XR KUB/Abdomen 1 view CLINICAL HISTORY: distended abdomen TECHNIQUE: 1 view of the abdomen was obtained. Comparison: Comparison is made to abdomen radiograph 08/07/2023 FINDINGS: Lung bases are unremarkable. Degenerative changes are seen in the visualized skeleton. The bowel gas pattern is nonobstructive. A moderate amount of stool is noted within the large bowel. Vascular calcifications are seen. IMPRESSION: Nonobstructive bowel gas pattern. ACT 112: Negative or not required by law. Electronically signed by: Yoel Elena M.D. 11/26/2023 7:44 AM Abdomen/Pelvis CT 11/26/23 07:22 CT abd pelvis wo con CLINICAL HISTORY: concern for SBO TECHNIQUE: Helical axial images of the abdomen and pelvis were obtained. Automated dose lowering techniques and/or adjustment according to patient size were utilized for this exam. This exam was performed without intravenous contrast. CT DOSE: 1160.98 mGy.cm COMPARISON: Comparison is made to CT abdomen pelvis 11/22/2023 FINDINGS: Lower chest: Emphysema and trace bilateral airspace opacities are seen which may represent atelectasis, pneumonia, and/or aspiration. Liver: Unremarkable. No focal lesions are seen. Gallbladder and biliary tree: Cholelithiasis is seen without evidence of cholecystitis. No intra- or extrahepatic biliary ductal dilation. Pancreas: Unremarkable, no focal lesions. Spleen: Unremarkable. Adrenals: Unremarkable. Kidneys and ureters: Nonobstructive nephrolithiasis is seen. Left pelvocaliectasis is again seen without evidence of obstructive stone. Bladder: Unremarkable. Reproductive organs: Unremarkable. Bowel: Multiple dilated loops of small bowel are seen measuring up to 37 mm in diameter. Postsurgical changes of partial colectomy with a left lower quadrant colostomy and Hollis's pouch. A large parastomal hernia is again seen. There is a distal transition point in the inferior aspect of the hernia sac in the mid to distal ileum (series 3 image #15). No proximal transition point is seen. The colon is not under distended. Lymph nodes Retroperitoneal: Unremarkable. Pelvic: Unremarkable. Mesenteric: Unremarkable. Peritoneum: Normal. Vessels: Atherosclerotic calcifications are seen. Abdominal wall: A large parastomal hernia is seen containing multiple loops of large and small bowel. There is a midline umbilical hernia containing a portion of a loop of large bowel. Bones: Degenerative changes in the visualized spine. IMPRESSION: 1. Findings compatible with partial small bowel obstruction with a transition point at the ileum at the inferior aspect of the hernia sac. 2. Nonobstructive renal stones. 3. Parastomal hernia. 4. Additional findings as above. ACT 112: Negative or not required by law. Electronically signed by: Yoel Elena M.D. 11/26/2023 8:21 AM PG Care Time/CCT Total # of Minutes Spent Total Time Spent with Patient: Total time spent is greater than 50% in coordination of care (as documented) at patient's floor/unit and/or counseling patient: Coding Level of Care Code 43326 INT INP/OBS CARE 2/55MIN Diagnoses Parastomal hernia K43.5 Small bowel obstruction K56.609
[2023-11-26] MEDS: LACTATED RINGER'S 1,000 ML IV SCH (11:37)
--- NOTE | 2023-11-26 12:04 | XRay Report ---
XR KUB/Abdomen 1 view CLINICAL HISTORY: ng tube placement TECHNIQUE: 1 view of the abdomen was obtained. Comparison: Comparison is made to abdomen radiograph 11/25/[address] abdomen pelvis 12/27/2023 FINDINGS: Enteric tube appears looped within the stomach with the tip oriented superiorly. Degenerative changes are seen in the visualized skeleton. The bowel gas pattern is nonobstructive. A moderate amount of s tool is noted within the large bowel. IMPRESSION: Enteric tube is looped within the stomach and can be repositioned for improved positioning. ACT 112: Negative or not required by law. Electronically signed by: Yoel Elena M.D. 11/26/2023 12:02 PM
--- NOTE | 2023-11-26 14:04 | XRay Report ---
XR KUB/Abdomen 1 view CLINICAL HISTORY: NGT repositioned per recommendation on RAD report TECHNIQUE: 1 view of the abdomen was obtained. Comparison: Comparison is made to abdomen radiograph 11/26/2023 FINDINGS: Enteric tube has been repositioned and the tip and side port now project over the stomach. Degenerati ve changes are seen in the visualized skeleton. IMPRESSION: Satisfactory position of the enteric tube status post repositioning. ACT 112: Negative or not required by law. Electronically signed by: Yoel Elena M.D. 11/26/2023 2:02 PM
--- NOTE | 2023-11-26 14:35 | Hospitalist Progress Note ---
Date of Service November 26, 2023 Assessment & Plan (1) Acute UTI: Plan: Small bowel obstruction History of diverticulitis s/p resection With colostomy Parastomal hernia Patient was admitted for concern of acute UTI which was ruled out. Patient started to have decreased output through her colostomy. CT abdomen pelvis was done in November 25 which showed finding consistent with small bowel obstruction with transient point at the ileum at the inferior aspect of the hernia sac. NG tube to low intermittent suction Discussed with surgery; continue conservative management for now. Patient might need to transfer to tertiary care center if she fails conservative care. IV fluids with LR Pain control Monitor output through the colostomy bag Anemia Possible GI loss Patient's hemoglobin down trended from 8.2-6.9 No gross bleeding noted through the colostomy tube Similar situation last admission; patient was evaluated by GI at the time. Did not undergo egd/colonoscpy.Patient had outpatient endoscopy and colonoscopy planned on November 23; was hospitalized during that time s/p 1 unit of packed RBC transfusion Continue on Protonix IV twice daily Hold Xarelto for the time being in light of needing possible intervention. Will do DVT prophylaxis with heparin Acute UTI- ruled out Possible pyelonephritis Patient presents with bilateral back and flank pain. Leukocytosis present on admission Urinalysis suggestive of possible infection CT abdomen pelvis on admission showed wall thickening and moderately distended bladder with surrounding stranding which may represent cystitis. Mild left renal pelvic caliectasis and surrounding stranding. Urine culture growing 3 types of organisms; all high counts Blood cultureno growth in 24 hours Discontinue antibiotics as urine culture did not grow any organism Continue to monitor Chronic hypoxic respiratory failure on 3 L oxygen History of COPD Obstructive sleep apnea Patient reports chronic cough for several weeks symptoms nonproductive CT chest shows emphysema and interstitial thickening without evidence of pneumonia, mild bronchiectasis seen with atelectasis. Hypertonic saline nebs for airway clearance Incentive spirometry Flutter valve Continue CPAP at night Hypertension Holding verapamil as it can contribute to constipation History of A-fib holding Verapamil and Xarelto GERD On Protonix DVT prophylaxis Xarelto Disposition Patient continues to hospitalize due to small bowel obstruction requiring close monitoring. Discussed plan of care with patient's son Juan Daniel at bedside and over the phone. Discussed with patient's son Jean over the phone at [phone]. Answer questions/queries. Both agree with plan of care. Time spent evaluating patient, direct bedside care, chart review, placing orders, interpretation of diagnostic studies, discussion with consultants, patient, and family members, as well as other required patient management activities is 60 minutes Please note the above document was generated using voice recognition software. It may contain grammatical, syntax or spelling errors. Any formal questions or concerns about the content, text or information contained within the body of this dictation should be directly addressed to the provider for clarification Admission and Anticipated Discharge Date Admission Date: November 22, 2023 Subjective Overnight, patient had nausea and started vomiting a.m. Vomitus contained food particles; she reported abdominal distention and pain CT abdomen pelvis was done which showed finding compatible with partial small bowel obstruction with transition point at the ileum at the inferior aspect of the hernia sac. NG tube was placed. Review of Systems Review of Systems: All systems reviewed & are unremarkable except as noted in Subjective Physical Exam Physical Exam: Constitutional: Alert oriented x 3; not in distress Respiratory: Bilateral clear vesicular breath sound. Occasional wheeze Cardiovascular: RRR, no murmur, no edema Vessels: no JVD or carotid bruit Chest: normal inspection of chest Abdomen: Abdomen slightly distended. Colostomy bag with minimal output. Tenderness in deep palpation. Musculoskeletal: no cyanosis or clubbing, extremities motor strength 5/5 Skin: no rashes, warm and dry normal turgor Neurologic: PERRL, EOMI, accommodation nl, no face palsy, no dysarthria CN's II- XI intact bilaterally and moves all extremities Psychiatric: A+Ox3, euthymic affect Results & Data Results & Data Vital Signs (Past 12 Hours) Vital Signs Temp Pulse Pulse Resp BP Pulse Ox O2 Del Method 11/26/23 11:42 37.3 C 97 H 20 113/68 90 Nasal Cannula 11/26/23 10:46 82 20 91 Nasal Cannula 11/26/23 08:00 80 11/26/23 08:00 Nasal Cannula 11/26/23 07:26 37.4 C 88 19 146/62 H 94 Nasal Cannula 11/26/23 07:10 88 20 85 L Nasal Cannula 11/26/23 03:03 37.1 C 85 19 148/73 H 90 Nasal Cannula O2 Flow Rate 11/26/23 11:42 4.0 11/26/23 10:46 4 11/26/23 08:00 11/26/23 08:00 4 05/26/24 07:26 4.0 11/26/23 07:10 3 11/26/23 03:03 3
[2023-11-26] MEDS: HEPARIN SOD 5,000 UNIT/0.5 ML VIAL SQ SCH (15:05)
[2023-11-26] MEDS: MoRPHine SULFATE 4 MG/ML 1 ML CARP\\VIAL IV PRN (21:53)
[2023-11-27 04:55] LABS: Basophils # (auto) 0.03 K/uL (0.00-0.20); Basophils % (auto) 0.3 %; Eosinophils # (auto) 0.49 K/uL (0.00-0.50); Eosinophils % (auto) 4.8 %; Hematocrit (blood only) 28.8 % (37.0-47.0); Hemoglobin 8.6 g/dl (12.0-16.0); Immature Granulocytes # (auto) 0.11 K/uL (0.01-0.20); Immature Granulocytes % (auto) 1.1 %; Lymphocytes % (auto) 12.8 %; Mean Corpuscular Hemoglobin 29.4 pg (25.0-34.0); Mean Corpuscular Hgb Conc 29.9 g/dL (32.0-36.0); Mean Corpuscular Volume 98.3 fL (80.0-100.0); Mean Platelet Volume 8.7 fL (9.4-12.4); Monocytes # (auto) 1.46 K/uL (0.11-0.59); Monocytes % (auto) 14.3 %; Neutrophils # (auto) 6.79 K/uL (1.40-6.50); Neutrophils % (auto) 66.7 %; Platelet Count 345 K/uL (130-400); RDW Coefficient of Variation 14.8 % (11.5-14.5); RDW Standard Deviation 53.4 fL (36.4-46.3); Red Blood Count 2.93 M/uL (4.20-5.40); White Blood Count 10.18 K/ul (4.8-10.8)
[2023-11-27 05:09] LABS: BUN Creatinine Ratio 16.5 (10-20); Calcium 8.7 mg/dl (8.6-10.3); Creatinine Clr Calc Pharmacy 23.2 ml/min; Est GFR (African American) 33.6 ml/min; Potassium 4.4 mmol/L (3.5-5.1)
--- NOTE | 2023-11-27 11:13 | Surgery Progress Note ---
Date of Service November 27, 2023 Assessment & Plan (1) Parastomal hernia: Plan: Large parastomal hernia and associated small bowel obstruction. I believe I reduced a good portion of this at the bedside again today. Yesterday evening's KUB showed no obstruction. Given her surgical history and the large parastomal hernia, these are hard to fix. She would not be a candidate for surgery at this institution if her bowel obstruction does not resolve with nonoperative measures. Cont NG tube. KUB tomorrow, may do contrasted study if faiure to resolve. Consider transfer if no resolution in the next few days. Surgery will continue to follow, hopefully she will respond to nonoperative management reduction of the hernia. (2) Small bowel obstruction: Admission and Anticipated Discharge Date Admission Date: November 22, 2023 Subjective h/o hartmans procedure, known large parastomal hernia, now with concern of obstruction. Still feels sore and sick, ng didn't offer much relief. No ostomy output. Physical Exam Constitutional: WD/WN, vitals as above + obese Respiratory: normal respiratory effort, lungs clear to auscultation Cardiovascular: RRR, no murmur, no edema Gastrointestinal (Abdomen): Inspection/Auscultation: + abdominal surgical scar Percussion/Palpation: + abdomen tender and + hernia (large parastomal hernia, partially reducible) ostomy congested, no air or stool in bag Results & Data Vital Signs (Past 12 Hours) Vital Signs Temp Pulse Resp BP BP Pulse Ox O2 Del Method 11/27/23 07:37 69 20 91 Nasal Cannula 11/27/23 07:29 36.6 C 75 20 132/62 88 L Nasal Cannula 11/27/23 03:06 37.2 C 78 19 119/65 88 L Nasal Cannula 11/26/23 23:16 37.1 C 85 19 137/68 90 Nasal Cannula O2 Flow Rate 11/27/23 07:37 5 11/27/23 07:29 5 11/27/23 03:06 4 11/26/23 23:16 4 PG Care Time/CCT Total # of Minutes Spent Total Time Spent with Patient: Total time spent is greater than 50% in coordination of care (as documented) at patient's floor/unit and/or counseling patient: Coding Level of Care Code 81712 SUB INP/OBS CARE 2/35MIN Diagnoses Parastomal hernia K43.5 Small bowel obstruction K56.609
--- NOTE | 2023-11-27 15:21 | Hospitalist Progress Note ---
Date of Service November 27, 2023 Assessment & Plan (1) Acute UTI: Plan: Small bowel obstruction History of diverticulitis s/p resection With colostomy Parastomal hernia Patient was admitted for concern of acute UTI which was ruled out. Patient started to have decreased output through her colostomy. CT abdomen pelvis was done in November 25 which showed finding consistent with small bowel obstruction with transient point at the ileum at the inferior aspect of the hernia sac. Continue NG tube to low intermittent suction As per surgery; continue conservative management for now. Patient might need to transfer to tertiary care center if she fails conservative care. IV fluids with LR Pain control Monitor output through the colostomy bag Anemia Possible GI loss Patient's hemoglobin down trended from 8.2-6.9 No gross bleeding noted through the colostomy tube Similar situation last admission; patient was evaluated by GI at the time. Did not undergo egd/colonoscpy.Patient had outpatient endoscopy and colonoscopy planned on November 23; was hospitalized during that time s/p 1 unit of packed RBC transfusion Continue on Protonix IV twice daily Hold Xarelto for the time being in light of needing possible intervention. Will do DVT prophylaxis with heparin Acute UTI- ruled out Possible pyelonephritis Patient presents with bilateral back and flank pain. Leukocytosis present on admission Urinalysis suggestive of possible infection CT abdomen pelvis on admission showed wall thickening and moderately distended bladder with surrounding stranding which may represent cystitis. Mild left renal pelvic caliectasis and surrounding stranding. Urine culture growing 3 types of organisms; all high counts Blood cultureno growth in 24 hours Discontinue antibiotics as urine culture did not grow any organism Continue to monitor Chronic hypoxic respiratory failure on 3 L oxygen History of COPD Obstructive sleep apnea Patient reports chronic cough for several weeks symptoms nonproductive CT chest shows emphysema and interstitial thickening without evidence of pneumonia, mild bronchiectasis seen with atelectasis. Hypertonic saline nebs for airway clearance Incentive spirometry Flutter valve Continue CPAP at night Hypertension Holding verapamil as it can contribute to constipation History of A-fib holding Verapamil and Xarelto GERD On Protonix DVT prophylaxis heparin Disposition Patient continues to hospitalize due to small bowel obstruction requiring close monitoring. Discussed plan of care with patient's son Juan Daniel at bedside and over the phone and patient's son Jean over the phone at [phone] on 11/26/2023. Answer questions/queries. Both agree with plan of care. Time spent evaluating patient, direct bedside care, chart review, placing orders, interpretation of diagnostic studies, discussion with consultants, patient, and family members, as well as other required patient management activities is 50 minutes Please note the above document was generated using voice recognition software. It may contain grammatical, syntax or spelling errors. Any formal questions or concerns about the content, text or information contained within the body of this dictation should be directly addressed to the provider for clarification Admission and Anticipated Discharge Date Admission Date: November 22, 2023 Subjective Patient seen and examined at bedside Patient does not have output from colostomy bag NG tube with dark output Parastomal hernia reduced at bedside by surgery Review of Systems Review of Systems: All systems reviewed & are unremarkable except as noted in Subjective Physical Exam Physical Exam: Constitutional: Alert oriented x 3; not in distress Respiratory: Bilateral clear vesicular breath sound. Occasional wheeze Cardiovascular: RRR, no murmur, no edema Vessels: no JVD or carotid bruit Chest: normal inspection of chest Abdomen: Abdomen slightly distended. Colostomy bag with minimal output. Tenderness in deep palpation. Musculoskeletal: no cyanosis or clubbing, extremities motor strength 5/5 Skin: no rashes, warm and dry normal turgor Neurologic: PERRL, EOMI, accommodation nl, no face palsy, no dysarthria CN's II- XI intact bilaterally and moves all extremities Psychiatric: A+Ox3, euthymic affect Results & Data Results & Data Vital Signs (Past 12 Hours) Vital Signs Temp Pulse Resp BP Pulse Ox O2 Del Method O2 Flow Rate 11/27/23 11:25 71 18 91 Nasal Cannula 5 11/27/23 11:10 36.5 C 71 18 115/46 L 92 Nasal Cannula 11/27/23 07:37 69 20 91 Nasal Cannula 5 11/27/23 07:29 36.6 C 75 20 132/62 88 L Nasal Cannula 5
[2023-11-27] MEDS ORDERED: DEXTROSE 5% 1,000 ML IV SCH (15:45)
--- NOTE | 2023-11-27 15:46 | XRay Report ---
KUB CLINICAL HISTORY: verify position of NG tube COMPARISON STUDY: CT of the abdomen and pelvis November 26, 2023. KUB November 26, 2023. FINDINGS: Tip of the nasogastric tube is within the proximal body of the stomach. Bibasilar opacities are again noted. Blunting of the left costophrenic angle is likely chronic. IMPRESSION: Appropriately positioned nasogastric tube. Tip within the proximal body of the stomach. ACT 112: Negative or not required by law. Electronically signed by: Oh Townsend M.D. 11/27/2023 3:45 PM
[2023-11-27] MEDS: ALBUT/IPRATROP 3MG/0.5MG NEB 3 ML VIAL NEB ONE (16:35)
[2023-11-27] MEDS ORDERED: ONDANSETRON INJ 2 MG/ML 2 ML VIAL IV PRN (16:49)
--- NOTE | 2023-11-27 16:55 | XRay Report ---
XR chest 1V portable CLINICAL HISTORY: increasing oxygen requirement COMPARISON STUDY: Chest CT November 22, 2023. Chest radiograph November 25, 2023. FINDINGS: Tip of nasogastric tube is within the body of the stomach. There is no pneumothorax. Blunti ng of the left costophrenic angle is likely chronic. Bibasilar opacities have increased. Cardiomedias tinal silhouette is stable. Mild interstitial thickening is unchanged. IMPRESSION: 1. Increase in bibasilar opacities. Right basilar opacity favors atelectasis. Left basilar opacity al so likely reflects atelectasis however superimposed pneumonia would be difficult to exclude. 2. Stable cardiomegaly and chronic interstitial thickening. ACT 112: Negative or not required by law. Electronically signed by: Oh Townsend M.D. 11/27/2023 4:54 PM
[2023-11-27] MEDS ORDERED: FORMOTEROL 20 MCG/2 ML VIAL NEB SCH (17:00)
[2023-11-27] MEDS: D5W AND 1/2NSS 1,000 ML IV SCH (17:09)
[2023-11-27] MEDS: cefTRIAXone SODIUM 2,000 MG/50 ML BAG IV SCH (17:12)
[2023-11-27] MEDS: AZITHROMYCIN 500 MG in DEXTROSE 5% 250 ML IV SCH (17:12)
[2023-11-27 17:54] LABS: Basophils # (auto) 0.03 K/uL (0.00-0.20); Basophils % (auto) 0.4 %; Eosinophils # (auto) 0.41 K/uL (0.00-0.50); Eosinophils % (auto) 4.9 %; Hematocrit (blood only) 29.2 % (37.0-47.0); Hemoglobin 8.7 g/dl (12.0-16.0); Immature Granulocytes # (auto) 0.07 K/uL (0.01-0.20); Immature Granulocytes % (auto) 0.8 %; Lymphocytes # (auto) 1.29 K/uL (1.20-3.40); Lymphocytes % (auto) 15.4 %; Mean Corpuscular Hemoglobin 29.7 pg (25.0-34.0); Mean Corpuscular Hgb Conc 29.8 g/dL (32.0-36.0); Mean Corpuscular Volume 99.7 fL (80.0-100.0); Mean Platelet Volume 9.2 fL (9.4-12.4); Monocytes % (auto) 16.8 %; Neutrophils # (auto) 5.15 K/uL (1.40-6.50); Neutrophils % (auto) 61.7 %; Platelet Count 328 K/uL (130-400); RDW Coefficient of Variation 14.6 % (11.5-14.5); RDW Standard Deviation 53.4 fL (36.4-46.3); Red Blood Count 2.93 M/uL (4.20-5.40); White Blood Count 8.35 K/ul (4.8-10.8)
[2023-11-27 18:07] LABS: Albumin Globulin Ratio 0.9 (0.9-2); BUN Creatinine Ratio 17.3 (10-20); Bilirubin,Total 0.2 mg/dl (0.2-1.0); Calcium 8.6 mg/dl (8.6-10.3); Creatinine Clr Calc Pharmacy 25.8 ml/min; Est GFR (African American) 37.5 ml/min; Est GFR (Non-African American) 32.3 ml/min; Globulin 3.4 gm/dl (2.5-4.0); Potassium 4.5 mmol/L (3.5-5.1); Total Protein 6.4 gm/dl (6.0-8.3)
[2023-11-27] MEDS: FORMOTEROL 20 MCG/2 ML VIAL NEB SCH (19:42)
[2023-11-27] MEDS: BUDESONIDE 0.25 MG/2 ML VIAL (PULMICORT) INH SCH (19:43)
[2023-11-27] MEDS ORDERED: methylPREDNISolone 125 MG/2 ML VIAL IV SCH (21:00)
[2023-11-27] MEDS: guaiFENesin SUGAR FREE 100 MG/5 ML UDC PO PRN (22:08)
[2023-11-27] MEDS: methylPREDNISolone 40 MG in SYRINGE 0 ML IV SCH (22:09)
[2023-11-28 06:33] LABS: Basophils # (auto) 0.01 K/uL (0.00-0.20); Basophils % (auto) 0.2 %; Eosinophils # (auto) 0.02 K/uL (0.00-0.50); Eosinophils % (auto) 0.3 %; Hematocrit (blood only) 28.5 % (37.0-47.0); Hemoglobin 8.4 g/dl (12.0-16.0); Immature Granulocytes % (auto) 1.5 %; Lymphocytes # (auto) 0.74 K/uL (1.20-3.40); Lymphocytes % (auto) 11.2 %; Mean Corpuscular Hemoglobin 29.3 pg (25.0-34.0); Mean Corpuscular Hgb Conc 29.5 g/dL (32.0-36.0); Mean Corpuscular Volume 99.3 fL (80.0-100.0); Mean Platelet Volume 9.1 fL (9.4-12.4); Monocytes # (auto) 0.22 K/uL (0.11-0.59); Monocytes % (auto) 3.3 %; Neutrophils # (auto) 5.49 K/uL (1.40-6.50); Neutrophils % (auto) 83.5 %; Platelet Count 312 K/uL (130-400); RDW Standard Deviation 51.9 fL (36.4-46.3); Red Blood Count 2.87 M/uL (4.20-5.40); White Blood Count 6.58 K/ul (4.8-10.8)
[2023-11-28 06:51] LABS: BUN Creatinine Ratio 17.6 (10-20); Calcium 8.5 mg/dl (8.6-10.3); Creatinine Clr Calc Pharmacy 29.8 ml/min; Est GFR (African American) 44.1 ml/min; Est GFR (Non-African American) 38.1 ml/min; Potassium 4.9 mmol/L (3.5-5.1)
--- NOTE | 2023-11-28 08:22 | Surgery Progress Note ---
Date of Service November 28, 2023 Assessment & Plan (1) Small bowel obstruction: Plan: Pt here with concern for SBO and parastomal hernia NGT in place, 50cc documented Continues w/ belly pain and no ostomy output KUB pending this AM Will obtain a SBFT for further information If surgical intervention is indicated will need transferred to higher level of care Admission and Anticipated Discharge Date Admission Date: November 22, 2023 Supervising Physician Co-Signing Physician Notes I personally saw and evaluated the patient with Nely Fenton PA-C and agree with the assessment and plan. 83 yo female with parastomal hernia and SBO Her KUB from today was reviewed, no radiology read yet, but does not appear to have a bunch of dilated bowel She still does not have much in the way of ostomy output, will proceed with SBFT via NGT today in hopes this will also be therapeutic If she does not resolve her SBO, would recommend transfer to tertiary care as she is not a surgical candidate at this facility Will follow Subjective Patient still reporting abdominal pain with palpation,but not worsening. No ostomy output. Physical Exam Physical Exam: awake/alert, no distress Gastrointestinal (Abdomen): Inspection/Auscultation: abdomen not distended Percussion/Palpation: + abdomen tender (generalized discomfort to palpation ) and abdomen soft + viable ostomy without output . NGT wit h 50cc output documented Results & Data Vital Signs (Past 12 Hours) Vital Signs Temp Pulse Resp BP Pulse Ox O2 Del Method O2 Flow Rate 11/28/23 07:49 97.3 F L 67 22 134/63 95 Nebulizer 11/28/23 07:25 81 16 95 Nasal Cannula 8 11/28/23 03:26 97.7 F 81 18 157/66 H 93 Nasal Cannula 5 11/28/23 02:27 16 92 Nasal Cannula, High Flow Nasal Cannula 6 11/27/23 23:24 98.2 F 77 18 125/63 97 Nasal Cannula 8 11/27/23 22:40 High Flow Nasal Cannula 7 PG Care Time/CCT Total # of Minutes Spent Total Time Spent with Patient: Total time spent is greater than 50% in coordination of care (as documented) at patient's floor/unit and/or counseling patient: Coding Level of Care Code 59737 SUB INP/OBS CARE 07/27MIN Diagnoses Small bowel obstruction K56.609
--- NOTE | 2023-11-28 09:47 | XRay Report ---
KUB CLINICAL HISTORY: Follow up on SBO COMPARISON STUDY: CT of the abdomen and pelvis November 26, 2023. KUB November 27, 2023. FINDINGS: Tip of nasogastric tube is within the proximal body of the stomach. Sidehole is at the GE j unction. Several loops of moderately dilated small bowel measure up to 5.1 cm in caliber. Moderate am ount of stool within the rectum is present. Left basilar opacity is again noted with blunting of the costophrenic angles. IMPRESSION: 1. Tip of nasogastric tube within the proximal body of the stomach. The tube could be advanced 3 cm. 2. Multiple loops of moderately dilated small bowel. The findings represent a persistent small bowel obstruction. ACT 112: Negative or not required by law. Electronically signed by: Oh Townsend M.D. 11/28/2023 9:46 AM
--- NOTE | 2023-11-28 15:09 | Hospitalist Progress Note ---
Date of Service November 28, 2023 Assessment & Plan (1) Acute UTI: Plan: Small bowel obstruction History of diverticulitis s/p resection With colostomy Parastomal hernia Patient was admitted for concern of acute UTI which was ruled out. Patient started to have decreased output through her colostomy. CT abdomen pelvis was done in November 25 which showed finding consistent with small bowel obstruction with transient point at the ileum at the inferior aspect of the hernia sac. Continue NG tube to low intermittent suction As per surgery; continue conservative management for now. Patient is going to have a small bowel follow-through today. Patient might need to transfer to tertiary care center for consideration of surgery if she fails conservative care. However, patient is not agreeable to surgery at this time. IV fluids with D5 1/2 NS Pain control Monitor output through the colostomy bag COPD exacerbation Possible pneumonia Acute on chronic hypoxic respiratory failure Chest x-ray obtained on 11/26 personally reviewed; increasing bibasilar opacities. Lung examination reveals crackles Patient is started on budesonide and formoterol nebs Continue albuterol and hypertonic saline nebs Started on ceftriaxone and azithromycin Continue steroids for 5 days Anemia Possible GI loss Patient's hemoglobin down trended from 8.2-6.9 No gross bleeding noted through the colostomy tube Similar situation last admission; patient was evaluated by GI at the time. Did not undergo egd/colonoscpy.Patient had outpatient endoscopy and colonoscopy planned on November 23; was hospitalized during that time s/p 1 unit of packed RBC transfusion Continue on Protonix IV twice daily Hold Xarelto for the time being in light of needing possible intervention. Will do DVT prophylaxis with heparin Acute UTI- ruled out Possible pyelonephritis Patient presents with bilateral back and flank pain. Leukocytosis present on admission Urinalysis suggestive of possible infection CT abdomen pelvis on admission showed wall thickening and moderately distended bladder with surrounding stranding which may represent cystitis. Mild left renal pelvic caliectasis and surrounding stranding. Urine culture growing 3 types of organisms; all high counts Blood cultureno growth in 24 hours Hypertension Holding verapamil as it can contribute to constipation History of A-fib holding Verapamil and Xarelto maintaining sinus rhythm on telemetry GERD On Protonix DVT prophylaxis heparin Disposition Patient continues to hospitalize due to small bowel obstruction requiring close monitoring. I discussed plan of care with patient's son Smiley( [phone]) over the phone. Patient currently has small bowel obstruction; undergoing conservative management. Patient has minimal improvement on conservative care. Patient does not want further surgery at this time. Plan is to continue conservative care. Both Juan Daniel and Jean agree that patient should be made comfortable if she decompensates further. Time spent evaluating patient, direct bedside care, chart review, placing orders, interpretation of diagnostic studies, discussion with consultants, patient, and family members, as well as other required patient management activities is 50 minutes Please note the above document was generated using voice recognition software. It may contain grammatical, syntax or spelling errors. Any formal questions or concerns about the content, text or information contained within the body of this dictation should be directly addressed to the provider for clarification Admission and Anticipated Discharge Date Admission Date: November 22, 2023 Subjective Patient seen and examined at bedside She is comfortable; denies any abdominal pain or vomiting NG tube with dark output No output from her colostomy bag Respiratory status seems to be stable Review of Systems Review of Systems: All systems reviewed & are unremarkable except as noted in Subjective Physical Exam Physical Exam: Constitutional: Alert oriented x 3; not in distress Respiratory: Bilateral clear vesicular breath sound. minimal sheeze Cardiovascular: RRR, no murmur, no edema Vessels: no JVD or carotid bruit Chest: normal inspection of chest Abdomen: Abdomen slightly distended. Colostomy bag with minimal output. Tenderness in deep palpation. Musculoskeletal: no cyanosis or clubbing, extremities motor strength 5/5 Skin: no rashes, warm and dry normal turgor Neurologic: PERRL, EOMI, accommodation nl, no face palsy, no dysarthria CN's II- XI intact bilaterally and moves all extremities Psychiatric: A+Ox3, euthymic affect Results & Data Results & Data Vital Signs (Past 12 Hours) Vital Signs Temp Pulse Resp BP Pulse Ox O2 Del Method O2 Flow Rate 11/28/23 11:29 36.7 C 65 20 152/62 H 90 Nasal Cannula 8 11/28/23 10:57 68 16 92 Nasal Cannula 6 11/28/23 08:00 Nasal Cannula 6 11/28/23 07:49 36.3 C L 67 22 134/63 95 Nebulizer 11/28/23 07:25 81 16 95 Nasal Cannula 8 11/28/23 03:26 36.5 C 81 18 157/66 H 93 Nasal Cannula 5
[2023-11-28] MEDS: methylPREDNISolone 40 MG in SYRINGE 0 ML IV SCH (20:40)
[2023-11-29 06:29] LABS: Basophils # (auto) 0.02 K/uL (0.00-0.20); Basophils % (auto) 0.2 %; Hematocrit (blood only) 29.3 % (37.0-47.0); Hemoglobin 8.8 g/dl (12.0-16.0); Immature Granulocytes # (auto) 0.15 K/uL (0.01-0.20); Immature Granulocytes % (auto) 1.4 %; Lymphocytes # (auto) 0.92 K/uL (1.20-3.40); Lymphocytes % (auto) 8.4 %; Mean Corpuscular Volume 96.7 fL (80.0-100.0); Mean Platelet Volume 9.1 fL (9.4-12.4); Monocytes # (auto) 0.66 K/uL (0.11-0.59); Platelet Count 360 K/uL (130-400); RDW Coefficient of Variation 13.4 % (11.5-14.5); RDW Standard Deviation 48.1 fL (36.4-46.3); Red Blood Count 3.03 M/uL (4.20-5.40); White Blood Count 10.95 K/ul (4.8-10.8)
[2023-11-29 06:43] LABS: BUN Creatinine Ratio 19.2 (10-20); Calcium 8.6 mg/dl (8.6-10.3); Creatinine Clr Calc Pharmacy 31.2 ml/min; Est GFR (African American) 46.7 ml/min; Est GFR (Non-African American) 40.3 ml/min; Potassium 3.9 mmol/L (3.5-5.1)
--- NOTE | 2023-11-29 07:46 | Fluoroscopy Report ---
SMALL BOWEL FOLLOW-THROUGH CLINICAL HISTORY: eval SBO COMPARISON STUDY: CT of the abdomen and pelvis November 26, 2023. KUB November 28, 2023 at 7:04 AM. TECHNIQUE: A electronic operator KUB was obtained. A small bowel follow-through was then performed. Dilute Optiray 320 was administered via nasogastric tube. Imaging was carried out for 21.5 hours. FINDINGS: Salt Washer image demonstrates several loops of dilated small bowel, similar to prior KUB. The sm all bowel is moderately dilated. Small bowel is likely opacified to at least the mid ileum. Note is m cecilia of small bowel loops within a left lower quadrant parastomal hernia as well as a ventral hernia. No definite contrast within the right colon is noted. No further imaging was performed given 21.5 eligio rs of imaging. Density within the right colon likely reflect stool. IMPRESSION: Findings consistent with a persistent small bowel obstruction. Small bowel moderately di lated to at least the level of the mid ileum. Small bowel loops within the left lower quadrant parast omal hernia and a ventral hernia. Transition point not well identified by fluoroscopy. No definite op acification of the right colon. ACT 112: Negative or not required by law. Electronically signed by: Oh Townsend M.D. 11/29/2023 7:45 AM
--- NOTE | 2023-11-29 08:02 | Surgery Progress Note ---
Date of Service November 29, 2023 Assessment & Plan (1) Small bowel obstruction: Plan: Pt with continued abd discomfort had SBFT yesterday , still reading SBO Will order KUB this AM COntinue NGT will monitor Admission and Anticipated Discharge Date Admission Date: November 22, 2023 Supervising Physician Co-Signing Physician Notes I personally saw and evaluated the patient with Parish KIM and agree with the assessment and plan. 83 yo female with parastomal hernia and SBO Her small bowel follow-through and KUB images were personally viewed and interpreted by myself She certainly has slow transit of contrast and has not had much out of her ostomy in the last 24 hours I had a long discussion with the patient about the need for surgery if her obstructions does not resolve with non-operative measures She is not a candidate for surgery at this institution due to her complex abdominal surgical history and parastomal hernia If she has not had significant ostomy output by tomorrow, would recommend initiating a transfer to tertiary care facility Will continue to follow Subjective Pt still having abd pain Review of Systems Gastrointestinal: + abdominal pain; no nausea and no vomit ing Physical Exam Physical Exam: alert , in bed getting breathing tx Gastrointestinal (Abdomen): Inspection/Auscultation: + significant pannus and + visible herniation Percussion/Palpation: + abdomen tender colostomy Results & Data Vital Signs (Past 12 Hours) Vital Signs Temp Pulse Resp BP BP Pulse Ox O2 Del Method 11/29/23 07:31 74 20 96 Nasal Cannula 11/29/23 03:31 98.4 F 65 20 150/54 H 94 Nasal Cannula 11/28/23 23:11 98.6 F 71 18 151/55 H 90 Nasal Cannula 11/28/23 20:45 Nasal Cannula, High Flow Nasal Cannula 11/28/23 20:06 73 20 85 L Nasal Cannula O2 Flow Rate 11/29/23 07:31 15 11/29/23 03:31 3.0 11/28/23 23:11 13.0 11/28/23 20:45 11/28/23 20:06 10 Results CBC w Diff Results: RBC 3.03 M/uL (4.20-5.40) L 11/29/23 WBC 10.95 K/ul (4.8-10.8) H 11/29/23 Hgb 8.8 g/dl (12.0-16.0) L 11/29/23 Hct 29.3 % (37.0-47.0) L 11/29/23 MCV 96.7 fL (80.0-100.0) 11/29/23 MCH 29.0 pg (25.0-34.0) 11/29/23 MCHC 30.0 g/dL (32.0-36.0) L 11/29/23 RDW Standard Deviation 48.1 fL (36.4-46.3) H 11/29/23 RDW Coefficient of Variation 13.4 % (11.5-14.5) 11/29/23 Plt Count 360 K/uL (130-400) 11/29/23 MPV 9.1 fL (9.4-12.4) L 11/29/23 Nucleated Red Blood Cells % (auto) 0.2 % 07/27 Nucleated RBC Absolute Count (auto) 0.02 K/uL (0.00-0.12) 0 07/27/23 Neutrophils (%) (Auto) 84.0 % 11/29/23 Lymphocytes (%) (Auto) 8.4 % 11/29/23 Monocytes # (Auto) 0.66 K/uL (0.11-0.59) H 11/29/23 Eosinophils # (Auto) 0.00 K/uL (0.00-0.50) 11/29/23 Immature Granulocyte % (Auto) 1.4 % 11/29/23 Neutrophils # (Auto) 9.20 K/uL (1.40-6.50) H 11/29/23 Lymphocytes # (Auto) 0.92 K/uL (1.20-3.40) L 11/29/23 Monocytes # (Auto) 0.66 K/uL (0.11-0.59) H 11/29/23 Eosinophils # (Auto) 0.00 K/uL (0.00-0.50) 11/29/23 Basophils # (Auto) 0.02 K/uL (0.00-0.20) 11/29/23 Immature Granulocyte # (Auto) 0.15 K/uL (0.01-0.20) 4 Red Blood Cell Morphology Unremarkable 08/29/23 Polychromasia 1+ 11/23/23 Stomatocytes 2+ 07/25/23 PG Care Time/CCT Total # of Minutes Spent Total Time Spent with Patient: Total time spent is greater than 50% in coordination of care (as documented) at patient's floor/unit and/or counseling patient: Coding Level of Care Code 57910 SUB INP/OBS CARE 07/27MIN Diagnoses Small bowel obstruction K56.609
--- NOTE | 2023-11-29 09:19 | XRay Report ---
KUB CLINICAL HISTORY: Small bowel obstruction. COMPARISON STUDY: CT of the abdomen and pelvis November 26, 2023. KUB and small bowel follow-through November 28, 2023. FINDINGS: Residual contrast within the stomach is noted. Oral contrast throughout the proximal to mid small bowel is present. The majority of the small bowel is moderately dilated. A small amount of tr pected contrast within the cecum is present. Distal small bowel appears relatively decompressed. Mult iple small bowel loops within a left parastomal hernia and ventral hernia are present, better depicte d on prior CT. IMPRESSION: Moderate dilatation of the proximal to mid small bowel with probable small amount of con trast within the cecum and relatively decompressed distal small bowel. The findings suggest a persist ent partial small bowel obstruction with transition point likely within the distal ileum. ACT 112: Negative or not required by law. Electronically signed by: Oh Townsend M.D. 11/29/2023 9:16 AM
--- NOTE | 2023-11-29 14:49 | Hospitalist Progress Note ---
Date of Service November 29, 2023 Assessment & Plan (1) Acute UTI: Plan: Pt is an 83yoF with PMhx significant for diverticulitis status post resection of large bowel with colostomy, parastomal hernia, chronic respiratory failure on 3 L of oxygen at baseline, COPD, FRANCIS, paroxysmal A-fib on Xarelto, hypertension, CKD stage III and depression currently admitted with a persistent SBO. Small bowel obstruction History of diverticulitis s/p resection With colostomy Parastomal hernia Patient was admitted for concern of acute UTI which was ruled out. Patient started to have decreased output through her colostomy. CT abdomen pelvis was done on November 25 which showed findings consistent with small bowel obstruction with transient point at the ileum at the inferior aspect of the hernia sac. Continue NG tube to low intermittent suction As per surgery; continue conservative management for now. Patient is going to have a small bowel follow-through. -Per General surgery, patient might need to transfer to tertiary care center for consideration of surgery tomorrow if she fails conservative care. However, patient is not agreeable to surgery at this time. IV fluids with D5 1/2 NS Pain control Monitor output through the colostomy bag COPD exacerbation Possible pneumonia Acute on chronic hypoxic respiratory failure Chest x-ray obtained on 11/26 noted increasing bibasilar opacities. Lung examination reveals crackles Patient is started on budesonide and formoterol nebs Continue albuterol and hypertonic saline nebs Started on ceftriaxone and azithromycin Continue steroids for 5 days Anemia Possible GI loss Patient's hemoglobin down trended from 8.2-6.9 No gross bleeding noted through the colostomy tube Similar situation last admission; patient was evaluated by GI at the time. Did not undergo egd/colonoscpy.Patient had outpatient endoscopy and colonoscopy planned on November 23; was hospitalized during that time s/p 1 unit of packed RBC transfusion Continue on Protonix IV twice daily Hold Xarelto for the time being in light of needing possible intervention. DVT prophylaxis with heparin Acute UTI- ruled out Possible pyelonephritis Patient presents with bilateral back and flank pain. Leukocytosis present on admission Urinalysis suggestive of possible infection CT abdomen pelvis on admission showed wall thickening and moderately distended bladder with surrounding stranding which may represent cystitis. Mild left renal pelvic caliectasis and surrounding stranding. Urine culture growing 3 types of organisms; all high counts Blood cultureno growth in 24 hours Hypertension Holding verapamil as it can contribute to constipation History of A-fib holding Verapamil and Xarelto maintaining sinus rhythm on telemetry GERD On Protonix DVT prophylaxis: heparin Disposition: Patient continues to hospitalize due to small bowel obstruction requiring close monitoring. Admission and Anticipated Discharge Date Admission Date: November 22, 2023 Subjective Pt was seen in AM laying in bed. NG tube in nares. Received message from gen Surg that if no significant ostomy output by tomorrow, consider transfer. However pt has been stating she does not want surgery. Review of Systems Review of Systems: All systems reviewed & are unremarkable except as noted in Subjective Physical Exam Physical Exam: General: Alert, oriented. No acute distress Psych: Appropriate mood and affect Neuro: No gross deficits while laying in bed HEENT: NC/AT, NG tube in nares CV: irregular Resp: Breath sounds coarse bilaterally, no increased effort of breathing. Abdomen: Soft, ostomy bag with minimal output Extremities: edema in lower extremities bilaterally. Results & Data Results & Data Vital Signs (Past 12 Hours) Vital Signs Temp Pulse Resp BP BP Pulse Ox O2 Del Method 11/29/23 13:03 High Flow Nasal Cannula 11/29/23 11:26 36.9 C 70 18 176/60 H 91 High Flow Nasal Cannula 11/29/23 10:40 60 20 100 Nasal Cannula 11/29/23 07:31 74 20 96 Nasal Cannula 11/29/23 03:31 36.9 C 65 20 150/54 H 94 Nasal Cannula O2 Flow Rate 11/29/23 13:03 11/29/23 11:26 10 11/29/23 10:40 12 11/29/23 07:31 15 11/29/23 03:31 3.0
[2023-11-30 01:12] LABS: Appearance Urine Clear (Clear); Bilirubin Urine Negative (Negative); Blood Urine Trace-intact (Negative); Color Urine Yellow; Glucose Urine UA Negative (Negative); Ketones Urine Negative (Negative); Leukocyte Esterase Urine 1+ (Negative); Nitrite Urine Negative (Negative); Protein Urine 1+ (Negative); Specific Gravity Urine 1.015 (1.000-1.030); Urobilinogen Urine Negative (Negative)
[2023-11-30 01:14] LABS: Bacteria Urine 1+ (None Seen); Epithelial Cell Urine 0-2 /hpf (0-2); Mucus Urine Present (None Prsent)
[2023-11-30 06:41] LABS: Basophils # (auto) 0.02 K/uL (0.00-0.20); Basophils % (auto) 0.1 %; Hematocrit (blood only) 29.9 % (37.0-47.0); Hemoglobin 9.2 g/dl (12.0-16.0); Immature Granulocytes # (auto) 0.25 K/uL (0.01-0.20); Immature Granulocytes % (auto) 1.7 %; Lymphocytes # (auto) 1.32 K/uL (1.20-3.40); Lymphocytes % (auto) 9.1 %; Mean Corpuscular Hemoglobin 29.5 pg (25.0-34.0); Mean Corpuscular Hgb Conc 30.8 g/dL (32.0-36.0); Mean Corpuscular Volume 95.8 fL (80.0-100.0); Mean Platelet Volume 9.1 fL (9.4-12.4); Monocytes # (auto) 1.15 K/uL (0.11-0.59); Monocytes % (auto) 7.9 %; Neutrophils # (auto) 11.74 K/uL (1.40-6.50); Neutrophils % (auto) 81.2 %; Platelet Count 364 K/uL (130-400); RDW Coefficient of Variation 13.5 % (11.5-14.5); RDW Standard Deviation 47.4 fL (36.4-46.3); Red Blood Count 3.12 M/uL (4.20-5.40); White Blood Count 14.48 K/ul (4.8-10.8)
[2023-11-30 06:50] LABS: Albumin Globulin Ratio 0.9 (0.9-2); Albumin Level 2.9 gm/dl (3.4-5.0); BUN Creatinine Ratio 22.1 (10-20); Bilirubin,Total 0.3 mg/dl (0.2-1.0); Calcium 8.4 mg/dl (8.6-10.3); Creatinine Clr Calc Pharmacy 35.2 ml/min; Est GFR (African American) 52.8 ml/min; Est GFR (Non-African American) 45.5 ml/min; Globulin 3.2 gm/dl (2.5-4.0); Magnesium 2.9 mg/dl (1.7-2.4); Phosphorus 3.2 mg/dl (2.5-4.9); Potassium 3.9 mmol/L (3.5-5.1); Total Protein 6.1 gm/dl (6.0-8.3)
--- NOTE | 2023-11-30 08:54 | Surgery Progress Note ---
Date of Service November 30, 2023 Assessment & Plan (1) Small bowel obstruction: Plan: She has some ostomy output as compared to yesterday Will order another KUB today She had a discussion with her sons and now has stated if needed, she would proceed with surgery for her bowel obstruction Again, she is not a candidate for surgery at this facility due to her medical comorbidities and complex abdominal surgical history as well as parastomal hernia I am still hopeful this will resolve without surgery (2) Parastomal hernia: Admission and Anticipated Discharge Date Admission Date: November 22, 2023 Subjective Pt seen and examined. Still with minimal abdominal pain. +ostomy output compared to yesterday. No N/V. Review of Systems Constitutional: no fever and no chills Gastrointestinal: + abdominal pain; no nausea and no vomit ing Physical Exam Constitutional: WD/WN, vitals as above Gastrointestinal (Abdomen): Inspection/Auscultation: + abdomen abnormal to inspection and abdomen not distended Percussion/Palpation: + abdomen tender (mild around ostomy), abdomen soft and + hernia (Large reducible parastomal); no guarding Musculoskeletal: no cyanosis or clubbing, extremities motor strength 5/5 Skin: no rashes, warm and dry Results & Data Vital Signs (Past 12 Hours) Vital Signs Temp Pulse Pulse Resp BP Pulse Ox O2 Del Method 11/30/23 08:06 36.6 C 80 20 156/69 H 97 Nasal Cannula 11/30/23 07:12 83 18 95 Nasal Cannula 11/30/23 03:00 36.5 C 68 20 157/65 H 94 Nasal Cannula 11/29/23 22:47 36.7 C 64 18 157/69 H 92 Nasal Cannula 11/29/23 22:00 67 O2 Flow Rate 11/30/23 08:06 6 11/30/23 07:12 6 11/30/23 03:00 11/29/23 22:47 11/29/23 22:00 PG Care Time/CCT Total # of Minutes Spent Total Time Spent with Patient: Total time spent is greater than 50% in coordination of care (as documented) at patient's floor/unit and/or counseling patient: Coding Level of Care Code 91191 SUB INP/OBS CARE 07/27MIN Diagnoses Small bowel obstruction K56.609 Parastomal hernia K43.5
[2023-11-30] MEDS: ERTAPENEM SODIUM 1,000 MG in SYRINGE 0 ML IV SCH (10:33)
--- NOTE | 2023-11-30 11:15 | XRay Report ---
KUB HISTORY: Small bowel obstruction. Follow-up. COMPARISON: KUB 11/29/2023. FINDINGS: Nasogastric tube is noted within the proximal stomach. This is similar to the prior study. Dilated and contrast-filled loops of small bowel are again seen throughout the abdomen. These measure up to 4.5 cm in diameter and are similar to the prior study. Small amount of contrast is seen within the cecum which has slightly progressed. No renal calculi. No ureteral calculi. No pneumoperitoneum or pneumatosis. IMPRESSION: Moderate dilatation of the majority of the small bowel loops which is similar to the prior study cons istent with a persistent partial small bowel obstruction. There is a small amount of contrast seen wi thin the cecum which has slightly progressed. ACT 112: Negative or not required by law. Electronically signed by: Demetri Workman M.D. 11/30/2023 11:14 AM
--- NOTE | 2023-11-30 14:55 | Hospitalist Progress Note ---
Date of Service November 30, 2023 Assessment & Plan (1) Acute UTI: Plan: Pt is an 83yoF with PMhx significant for diverticulitis status post resection of large bowel with colostomy, parastomal hernia, chronic respiratory failure on 3 L of oxygen at baseline, COPD, FRANCIS, paroxysmal A-fib on Xarelto, hypertension, CKD stage III and depression currently admitted with a persistent SBO. Small bowel obstruction History of diverticulitis s/p resection With colostomy Parastomal hernia Patient was admitted for concern of acute UTI which was ruled out. Patient started to have decreased output through her colostomy. CT abdomen pelvis was done on November 25 which showed findings consistent with small bowel obstruction with transient point at the ileum at the inferior aspect of the hernia sac. Continue NG tube to low intermittent suction As per surgery; continue conservative management for now. Patient is going to have a small bowel follow-through. -Per General surgery, patient might need to transfer to tertiary care center for consideration of surgery if she fails conservative care. Patient is currently agreeable to surgery at this time. IV fluids with D5 1/2 NS Pain control Monitor output through the colostomy bag -has cash having output into the bag, has had to be changed on 11/29 -continue with zofran, prn doses of Phenergan COPD exacerbation Possible pneumonia Acute on chronic hypoxic respiratory failure Chest x-ray obtained on 11/26 noted increasing bibasilar opacities. Lung examination reveals crackles Patient is started on budesonide and formoterol nebs Continue albuterol and hypertonic saline nebs Started on ceftriaxone and azithromycin Continue steroids for 5 days Anemia Possible GI loss Patient's hemoglobin down trended from 8.2-6.9 No gross bleeding noted through the colostomy tube Similar situation last admission; patient was evaluated by GI at the time. Did not undergo egd/colonoscpy.Patient had outpatient endoscopy and colonoscopy planned on November 23; was hospitalized during that time s/p 1 unit of packed RBC transfusion Continue on Protonix IV twice daily Hold Xarelto for the time being in light of needing possible intervention. DVT prophylaxis with heparin Acute UTI- ruled out Possible pyelonephritis Patient presents with bilateral back and flank pain. Leukocytosis present on admission Urinalysis suggestive of possible infection CT abdomen pelvis on admission showed wall thickening and moderately distended bladder with surrounding stranding which may represent cystitis. Mild left renal pelvic caliectasis and surrounding stranding. Urine culture growing 3 types of organisms; all high counts Blood cultureno growth in 24 hours Hypertension Holding verapamil as it can contribute to constipation History of A-fib holding Verapamil and Xarelto maintaining sinus rhythm on telemetry GERD On Protonix DVT prophylaxis: heparin Disposition: Patient continues to hospitalize due to small bowel obstruction requiring close monitoring. Admission and Anticipated Discharge Date Admission Date: November 22, 2023 Subjective pt seen multiple times. reports of emesis, foul smelling with medication attempt in the AM. However has been having output into the bag States that she is agreeable to surgery and transfer if needed. Per Gen Surg, since there is output into the bag, no transfer needed at this time. Review of Systems Review of Systems: All systems reviewed & are unremarkable except as noted in Subjective Physical Exam Physical Exam: General: Alert, oriented. No acute distress Psych: Appropriate mood and affect Neuro: No gross deficits while laying in bed HEENT: NC/AT, NG tube in nares CV: irregular Resp: Breath sounds coarse bilaterally, no increased effort of breathing. Abdomen: Soft, ostomy bag with significant output Extremities: edema in lower extremities bilaterally. Results & Data Results & Data Vital Signs (Past 12 Hours) Vital Signs Temp Pulse Pulse Resp BP Pulse Ox O2 Del Method 11/30/23 11:27 36.7 C 72 18 180/60 H 96 Nasal Cannula 11/30/23 11:14 66 18 98 Nasal Cannula 11/30/23 09:15 High Flow Nasal Cannula 11/30/23 08:56 64 11/30/23 08:06 36.6 C 80 20 156/69 H 97 Nasal Cannula 11/30/23 07:12 83 18 95 Nasal Cannula 11/30/23 03:00 36.5 C 68 20 157/65 H 94 Nasal Cannula O2 Flow Rate 11/30/23 11:27 6 11/30/23 11:14 6 11/30/23 09:15 6 11/30/23 08:56 11/30/23 08:06 6 11/30/23 07:12 6 11/30/23 03:00
[2023-11-30] MEDS: PROMETHAZINE HCL 6.25 MG in SODIUM CHLORIDE 0.9% 50 ML IV STA (18:01)
[2023-11-30] MEDS: ACETAMINOPHEN 1,000 MG/100 ML VIAL IV PRN (20:10)
[2023-12-01] MEDS: PROMETHAZINE HCL 6.25 MG in SODIUM CHLORIDE 0.9% 50 ML IV ONE (04:09)
[2023-12-01] MEDS ORDERED: PROMETHAZINE HCL 6.25 MG in SODIUM CHLORIDE 0.9% 50 ML IV PRN (04:40)
[2023-12-01] MEDS ORDERED: PROMETHAZINE HCL 12.5 MG in SODIUM CHLORIDE 0.9% 50 ML IV PRN (05:11)
[2023-12-01 05:35] LABS: Albumin Globulin Ratio 0.9 (0.9-2); Albumin Level 3.2 gm/dl (3.4-5.0); Bilirubin,Total 0.3 mg/dl (0.2-1.0); Calcium 8.1 mg/dl (8.6-10.3); Creatinine Clr Calc Pharmacy 30.8 ml/min; Est GFR (Non-African American) 38.8 ml/min; Globulin 3.4 gm/dl (2.5-4.0); Phosphorus 3.7 mg/dl (2.5-4.9); Potassium 3.9 mmol/L (3.5-5.1); Total Protein 6.6 gm/dl (6.0-8.3)
[2023-12-01] MEDS: PROMETHAZINE HCL 6.25 MG in SODIUM CHLORIDE 0.9% 50 ML IV STA (05:40)
[2023-12-01 05:59] LABS: Hematocrit (blood only) 38.3 % (37.0-47.0); Hemoglobin 11.9 g/dl (12.0-16.0); Mean Corpuscular Hemoglobin 29.4 pg (25.0-34.0); Mean Corpuscular Hgb Conc 31.1 g/dL (32.0-36.0); Mean Corpuscular Volume 94.6 fL (80.0-100.0); Mean Platelet Volume 9.2 fL (9.4-12.4); Platelet Count 468 K/uL (130-400); RDW Coefficient of Variation 13.5 % (11.5-14.5); Red Blood Count 4.05 M/uL (4.20-5.40); White Blood Count 26.62 K/ul (4.8-10.8)
[2023-12-01 06:00] LABS: Basophils # (auto) 0.11 K/uL (0.00-0.20); Basophils % (auto) 0.4 %; Immature Granulocytes # (auto) 0.37 K/uL (0.01-0.20); Immature Granulocytes % (auto) 1.4 %; Lymphocytes # (auto) 1.17 K/uL (1.20-3.40); Lymphocytes % (auto) 4.4 %; Monocytes # (auto) 3.07 K/uL (0.11-0.59); Monocytes % (auto) 11.5 %; Neutrophils % (auto) 82.3 %; Polychromasia 1+
--- NOTE | 2023-12-01 10:18 | XRay Report ---
XR KUB/Abdomen 1 view CLINICAL HISTORY: confirm NGT placement TECHNIQUE: 1 view of the abdomen was obtained. Comparison: Comparison is made to abdomen radiograph 11/30/2023 FINDINGS: Satisfactory position of enteric tube with the tip and side-port below the diaphragm. Degenerative ch anges are seen in the visualized skeleton. Bowel gas pattern is not well seen. IMPRESSION: Satisfactory position of enteric tube. ACT 112: Negative or not required by law. Electronically signed by: Yoel Elena M.D. 12/01/2023 10:17 AM
--- NOTE | 2023-12-01 12:03 | Surgery Progress Note ---
<Statement entered by Evelyn Peña DO - 12/01/23 20:38> I have seen and examined this patient this am. I agree with the prior two surgical assessments that this is not a surgical case to undertake here considering the significant abdominal wall compromise and complexity of the hernia. At this time, she is not improving and has failed to improve enough to be restarted on oral intake with conservative management. She subsequently has also had an episode of aspiration secondary to a trial of NGT cessation after a recent small bowel follow through showed some contrast making it to the colon. Colostomy output has decreased again today although her abdominal exam is benign. Date of Service December 01, 2023 Assessment & Plan (1) Small bowel obstruction: Plan: Pt w/ history of h/o hollis's for diverticulitis, known large parastomal and midline hernias here with SBO NGT removed yesterday, however developed multiple bouts of large volume emesis despite ostomy appearing to start to function NGT was subsequently replaced, 1.2L documented WBC has increased to 26 today, does appear to have UTI. Was also on steroids for respiratory issues Abdomen is soft and she is not complaining of much pain/nausea at this time Will obtain a CT a/p for further eval.....on Invanz for UTI....add on lactic acid Will f/u after CT scan, if worsening SBO likely will need tsfered out to tertiary center Admission and Anticipated Discharge Date Admission Date: November 22, 2023 Subjective Patient reports some lightheadedness and back pain. Denies much abdominal pain/nausea at this time. Last emesis was yesterday per pt. Physical Exam Physical Exam: awake, lying in bed, no distress Respiratory: normal respiratory effort on 6L o2 Gastrointestinal (Abdomen): Percussion/Palpation: abdomen soft; abdomen nontender ostomy with some dark brown thick stool in bag. no gas. NGT with light brown output, 1.2L documented Results & Data Vital Signs (Past 12 Hours) Vital Signs Temp Pulse Resp BP BP Pulse Ox O2 Del Method 12/01/23 11:09 98.4 F 65 22 121/73 94 Nasal Cannula 12/01/23 08:00 High Flow Nasal Cannula 12/01/23 04:10 98.1 F 57 L 18 140/57 L 91 Nasal Cannula O2 Flow Rate 12/01/23 11:09 6 12/01/23 08:00 6 12/01/23 04:10 6 PG Care Time/CCT Total # of Minutes Spent Total Time Spent with Patient: Total time spent is greater than 50% in coordination of care (as documented) at patient's floor/unit and/or counseling patient: Coding Level of Care Code 57202 SUB INP/OBS CARE 07/27MIN Diagnoses Small bowel obstruction K56.609
--- NOTE | 2023-12-01 13:41 | CT Scan Report ---
CT OF THE CHEST WITHOUT IV CONTRAST CLINICAL HISTORY: Hypoxia. COMPARISON STUDY: Chest CT November 22, 2023. Chest radiograph November 27, 2023. TECHNIQUE: Axial images of the chest were obtained without IV contrast. Images were reviewed in the axial, sagittal, and coronal planes. IV contrast was not administered for this examination. Automat ed exposure control was utilized for the study. A dose lowering technique was utilized adhering to t he principles of ALARA. FINDINGS: No enlarged axillary, mediastinal or hilar lymph nodes are present. There is mild cardiome em. Tip of nasogastric tube is within the body of the stomach, depicted on the CT of the abdomen an d pelvis which will be reported separately. There is no pericardial effusion. There are trace bilater al pleural effusions. No pneumothorax is present. Moderate emphysema is noted. Subpleural right lower lobe opacity favors atelectasis. Moderate left lower lobe opacity has developed since prior exam. Le ft lower lobe volume loss is noted. Interval opacification of left lower lobe bronchus also new since prior CT. IMPRESSION: 1. Interval development of left lower lobe consolidation with volume loss as well as opacification of left lower lobe bronchi. The findings favor aspiration pneumonitis/pneumonia. 2. Emphysema. 3. Trace bilateral pleural effusions. ACT 112: Negative or not required by law. Electronically signed by: Oh Townsend M.D. 12/01/2023 1:38 PM
--- NOTE | 2023-12-01 14:04 | CT Scan Report ---
CT OF THE ABDOMEN AND PELVIS WITHOUT CONTRAST CLINICAL HISTORY: eval SBO and WBC 26 COMPARISON STUDY: CT of the abdomen and pelvis November 26, 2023. Small bowel follow-through November 28, 2023 . KUB November 30, 2023. TECHNIQUE: Axial images of the abdomen and pelvis were obtained without IV contrast. Images were revi ewed in the axial, sagittal, and coronal planes. Automated exposure control was utilized for the curly dy. A dose lowering technique was utilized adhering to the principles of ALARA. FINDINGS: Please note that the chest CT will be reported separately. Small layering gallstones within the gallbladder are present. The gallbladder is mildly distended. There is no pericholecystic infilt ration. Unenhanced images of the liver, spleen, adrenal glands and pancreas are unremarkable. Contras t within the collecting systems and ureters obscures left renal calculi that measure up to 1.5 cm. Th ere is no hydronephrosis. A Melton within the bladder is present. There is contrast within the bladder . There is a large amount of stool within the rectum. Descending colostomy is noted with large parast omal hernia. The hernia contains multiple dilated small bowel loops. The stomach is distended. The pr oximal to mid small bowel is distended with discrete transition point within a ventral hernia on axia l image 326 of [phone]. Small bowel dilatation is similar to CT of November 26, 2023. The distal ileum is deco mpressed. Dilute contrast throughout the stomach and small bowel is from recent small bowel follow-th rough. Contrast within the colon is present. IMPRESSION: 1. Findings consistent with a persistent small bowel obstruction, similar to CT of November 26, 2023 with transition point at the neck of a ventral hernia, similar to prior CT. Residual oral contrast through out the stomach, proximal and mid small bowel from recent small bowel follow-through. Contrast does r each the colon. 2. 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 3. Large amount of stool within the rectum. 4. Left lower lobe airspace opacity which favors pneumonia or aspiration pneumonitis. 5. Trace bilateral pleural effusions. ACT 112: Negative or not required by law. Electronically signed by: Oh Townsend M.D. 12/01/2023 2:02 PM
[2023-12-01] MEDS: SODIUM CHLORIDE 0.9% 500 ML IV ONE (14:39)
--- NOTE | 2023-12-01 15:23 | Discharge Summary ---
Discharge Summary Date of Service December 01, 2023 Principal Dx & Hospital Course #1 = Principal Diagnosis (1) Small bowel obstruction: Plan Pt is an 83yoF with PMhx significant for diverticulitis status post resection of large bowel with colostomy, parastomal hernia, chronic respiratory failure on 3 L of oxygen at baseline, COPD, FRANCIS, paroxysmal A-fib on Xarelto, hypertension, CKD stage III and depression currently admitted with a persistent SBO. Small bowel obstruction History of diverticulitis s/p resection With colostomy Parastomal hernia Sepsis Patient was admitted for concern of acute UTI which was ruled out. Patient started to have decreased output through her colostomy. CT abdomen pelvis was done on November 25 which showed findings consistent with small bowel obstruction with transient point at the ileum at the inferior aspect of the hernia sac. NG tube placed. Was in place for about 5-6 days before draining copious amounts. Pt with frequent emesis episodes. Also noted output into colostomy bag. General surgery consulted -continue conservative care -Per General surgery, patient might need to transfer to tertiary care center for consideration of surgery if she fails conservative care. Patient is currently agreeable to surgery at this time. Became septic on 11/30 with noted significant leukocytosis. tachycardia and CT chest confirming aspiration pneumonia. Lactate 2.8 to 2.[address] abdomen pelvis on 11/30 confirming persistent SBO. IV fluids with D5 1/2 NS Pain control, antiemetics Per General surgery [place] [facility]30 with receiving ICU provider Dr Hobson. COPD exacerbation Possible pneumonia Acute on chronic hypoxic respiratory failure Chest x-ray obtained on 11/26 noted increasing bibasilar opacities. Lung examination reveals crackles Patient is started on budesonide and formoterol nebs Continue albuterol and hypertonic saline nebs Started on ceftriaxone and azithromycin Continue steroids for 5 days Anemia Possible GI loss Patient's hemoglobin down trended from 8.2-6.9 No gross bleeding noted through the colostomy tube Similar situation last admission; patient was evaluated by GI at the time. Did not undergo egd/colonoscpy.Patient had outpatient endoscopy and colonoscopy planned on November 23; was hospitalized during that time s/p 1 unit of packed RBC transfusion Continue on Protonix IV twice daily Hold Xarelto for the time being in light of needing possible intervention. DVT prophylaxis with heparin Acute UTI- ruled out Possible pyelonephritis Patient presents with bilateral back and flank pain. Leukocytosis present on admission Urinalysis suggestive of possible infection CT abdomen pelvis on admission showed wall thickening and moderately distended bladder with surrounding stranding which may represent cystitis. Mild left renal pelvic caliectasis and surrounding stranding. Urine culture growing 3 types of organisms; all high counts Blood cultureno growth in 24 hours Hypertension Holding verapamil as it can contribute to constipation History of A-fib holding Verapamil and Xarelto maintaining sinus rhythm on telemetry GERD On Protonix DVT prophylaxis: SQ heparin Disposition: [place] [facility] [place] persistent [place]BO. Notes For Next Care Provider Medication Changes From Visit None pt being transferred Admission HPI Per Admitting Provider History obtained from interview with the patient and chart review Past medical history of diverticulitis status post resection of large bowel with colostomy, chronic respiratory failure on 3 L of oxygen at baseline, COPD, FRANCIS, paroxysmal A-fib on Xarelto, hypertension, CKD stage III and depression. Recent confinement from October 11 to October 16, 2023 for LOPEZ and UTI Patient reports ongoing cough for several weeks. She reports that the cough is nonproductive; she reports that she feels the phlegm is "stuck" on her chest and is unable to get it out. She denies any fever, chills, increasing oxygen requirement. She does endorse mild shortness of breath on exertion She reports slightly decreased appetite, and decreased colostomy output recently. She denies increasing urinary frequency, urgency. Reports bilateral flank pain. She lives with high herself but has family close by. She is independent of most ADLs Admission Exam Per Admitting Provider Constitutional: Alert oriented x 3; not in distress Respiratory: Bilateral clear vesicular breath sound Cardiovascular: RRR, no murmur, no edema Vessels: no JVD or carotid bruit Chest: normal inspection of chest Abdomen: normal bowel sounds, soft, nontender, no hepatosplenomegaly Musculoskeletal: no cyanosis or clubbing, extremities motor strength 5/5 Skin: no rashes, warm and dry normal turgor Neurologic: PERRL, EOMI, accommodation nl, no face palsy, no dysarthria CN's II- XI intact bilaterally and moves all extremities Psychiatric: A+Ox3, euthymic affect Discharge Exam General: Alert, oriented. No acute distress Psych: Appropriate mood and affect Neuro: No gross deficits while laying in bed HEENT: NC/AT, NG tube in nares CV: irregular Resp: Breath sounds coarse bilaterally, no increased effort of breathing. Abdomen: Soft, ostomy bag with significant output Extremities: edema in lower extremities bilaterally. Updated Medication List Medication Instructions Recorded Confirmed Type calcium carbonate 500 mg-vitamin 1 tab PO QPM 03/10/19 11/22/23 History D3 10 mcg (400 unit) tablet (Calcium 500 + D) escitalopram oxalate 10 mg tablet 10 mg PO QAM 03/10/19 11/22/23 History (Lexapro) ferrous sulfate 325 mg (65 mg 325 mg PO QAM 03/10/19 11/22/23 History iron) tablet vit C 250 mg-vit E 90 mg-zinc 40 1 tab PO QAM 03/10/19 11/22/23 History mg-copper 1 [id number] capsule (PreserVision AREDS-2) guaifenesin 600 mg tablet, 600 mg PO BID #60 tabs 07/16/20 11/22/23 Rx extended release 12 hr (Mucinex) ascorbic acid (vitamin C) 500 mg 500 mg PO QAM 12/08/20 11/22/23 History tablet (Vitamin C) cyclosporine 0.05 % eye drops in a 1 drp OPB BID 12/08/20 11/22/23 History dropperette (Restasis) Portable Oxygen #1 ea 03/25/21 08/28/23 Rx rivaroxaban 15 mg tablet (Xarelto) 15 mg PO QPM 11/05/21 11/22/23 History Auto Titrating CPAP #1 ea 02/03/23 08/28/23 Rx CPAP Supplies #1 ea 02/03/23 08/28/23 Rx budesonide 0.25 mg/2 mL suspension 0.25 mg (2 mL) inhalation BID #60 02/03/23 11/22/23 Rx for nebulization mL umeclidinium 62.5 mcg-vilanterol 1 inh inhalation QAM #60 ea 02/03/23 11/22/23 Rx 25 mcg/actuation powdr for inhalation (Anoro Ellipta) mesalamine 1.2 gram tablet,delayed 3.6 g PO QAM 03/14/23 11/22/23 History release acetaminophen 325 mg tablet 325 mg PO Q6H PRN PAIN/FEVER 07/25/23 11/22/23 History (Tylenol) ipratropium 0.5 mg-albuterol 3 mg 3 ml inhalation Q4H PRN Wheezing 07/25/23 11/22/23 History (2.5 mg base)/3 mL nebulization soln omega-3 fatty acids 500 mg capsule 500 mg PO QAM 07/25/23 11/22/23 History solifenacin 5 mg tablet 5 mg PO QAM 07/25/23 11/22/23 History furosemide 20 mg tablet 20 mg PO QAM 08/28/23 11/22/23 History albuterol sulfate 90 mcg/actuation 1 inh inhalation DIRECTED PRN 10/12/23 11/22/23 History aerosol inhaler (ProAir HFA) Shortness Of Breath denosumab 60 mg/mL subcutaneous 60 mg subcut .[id number] 10/12/23 11/22/23 History syringe (Prolia) verapamil 120 mg tablet,extended 120 mg PO QAM 10/12/23 11/22/23 History release pantoprazole 40 mg tablet,delayed 40 mg PO BID #60 tabs 10/16/23 11/22/23 Rx release Additional Medication Comments Current Inpatient Medications Albuterol (Albut/Ipratrop 3mg/0.5mg Neb 3 Ml Vial) 3 ml NEB QIDR [facility]; Protocol Stop: 12/22/23 08:09 Last Admin: 12/01/23 17:02 Dose: Not Given Albuterol (Albuterol Hfa 8 Gm Inhaler) 1 puffs INH Q4H PRN PRN Reason: Shortness Of Breath Stop: 12/22/23 12:05 Albuterol (Albut/Ipratrop 3mg/0.5mg Neb 3 Ml Vial) 3 ml INH Q4H PRN; Protocol PRN Reason: Wheezing Stop: 12/22/23 12:05 Artificial Tears (Artificial Tears) 1 drops OP Q4H PRN PRN Reason: DRY EYES Stop: 12/22/23 12:51 Ascorbic Acid (Ascorbic Acid 500 Mg Tab) 500 mg PO QAM [facility] Stop: 12/23/23 08:59 Last Admin: 12/01/23 09:35 Dose: 500 mg Budesonide (Budesonide 0.25 Mg/2 Ml Vial (Pulmicort)) 0.5 mg INH BIDR [facility] Stop: 12/27/23 18:59 Last Admin: 12/01/23 07:31 Dose: Not Given Calcium/Vitamin D (Calcium 600mg + Vit D 400 Iu Tab) 1 tab PO QPM [facility] Stop: 12/22/23 20:59 Last Admin: 11/30/23 22:47 Dose: 1 tab Escitalopram Oxalate (Escitalopram Oxalate 10 Mg Tab) [facility]: 12/23/23 08:59 Last Admin: 12/01/23 09:35 Dose: 10 mg Ferrous Sulfate (Ferrous Sulfate 325 Mg Tab) [facility] [place]: 12/23/23 08:59 Last Admin: 12/01/23 09:28 Dose: Not Given Formoterol Fumarate (Formoterol 20 Mcg/2 Ml Vial) 20 mcg NEB BIDR [facility] Stop: 12/27/23 18:59 Last Admin: 12/01/23 07:31 Dose: Not Given Furosemide (Furosemide 20 Mg Tab) [facility] [place]: 12/23/23 08:59 Last Admin: 11/30/23 11:19 Dose: Not Given Guaifenesin (Guaifenesin Sugar Free 100 Mg/5 Ml Udc) 100 mg PO Q6H PRN PRN Reason: Cough Stop: 12/27/23 21:22 Last Admin: 11/28/23 20:40 Dose: 100 mg Heparin Sodium (Porcine) (Heparin Sod 5,000 Unit/0.5 Ml Vial) 5,000 units SQ Q8 [facility] Stop: 12/26/23 13:59 Last Admin: 12/01/23 14:39 Dose: 5,000 units Pantoprazole Sodium 40 mg/ (Syringe) 10 mls @ 5 mls/min IV BID [facility] Stop: 12/23/23 20:59 Last Admin: 12/01/23 09:34 Dose: 5 mls/min Dextrose/Sodium Chloride (D5w And 1/2nss) 1,000 mls @ 80 mls/hr IV .[id number] [facility] Stop: 12/27/23 15:44 Last Admin: 12/01/23 14:39 Dose: 80 mls/hr Promethazine HCl 12.5 mg/ (Sodium Chloride) 50.5 mls @ 202 mls/hr IV Q6H PRN PRN Reason: Nausea And Vomiting Stop: 12/31/23 05:10 Piperacillin Sod/Tazobactam (Sod 4.5 gm/ Dextrose) 100 mls @ 25 mls/hr IV Q8H [facility]; Protocol Stop: 12/08/23 17:59 Mesalamine (Mesalamine 800 Mg Tabcr) 1,600 mg PO BID [facility] Stop: 12/23/23 20:59 Last Admin: 12/01/23 09:28 Dose: Not Given Morphine Sulfate (Morphine Sulfate 4 Mg/Ml 1 Ml Carp\\Vial) 3 mg IV Q3H PRN PRN Reason: Mod-Sev Pain (Scale 4-10) Stop: 12/10/23 21:36 Last Admin: 11/30/23 22:42 Dose: 3 mg Ondansetron HCl (Ondansetron Inj 2 Mg/Ml 2 Ml Vial) 4 mg IV Q6H PRN PRN Reason: Nausea And Vomiting Stop: 12/25/23 20:45 Last Admin: 12/01/23 02:05 Dose: 4 mg Oxybutynin Chloride (Oxybutynin Chloride Xl 5 Mg Tabcr) 5 mg PO [facility] Stop: 12/23/23 08:59 Last Admin: 12/01/23 09:28 Dose: Not Given Oxycodone HCl (Oxycodone Hcl Ir 5 Mg Tab (Immediate Release)) 2.5 mg PO Q6H PRN PRN Reason: Pain Stop: 12/08/23 10:52 Last Admin: 11/25/23 21:34 Dose: 2.5 mg Sodium Chloride (Sodium Chlor 7% 4 Ml Neb) 4 ml NEB BIDR [facility] Stop: 12/22/23 08:09 Last Admin: 12/01/23 07:31 Dose: Not Given Verapamil HCl (Verapamil Hcl 120 Mg Tabcr) 120 mg PO [facility] Stop: 12/23/23 08:59 Last Admin: 11/25/23 10:02 Dose: 120 mg Hospital Stay Data Consultations 11/22/23 06:58 ED Decision to Admit Stat 11/26/23 08:40 Consult General Surgery Routine Diagnostic Imagining Performed 11/22/23 04:51 CT abd pelvis wo con Stat CT lumbar spine wo con Stat 11/22/23 08:05 CT chest diagnostic wo con Stat 11/26/23 07:22 CT Abd and Pelvis [CT abd pelvis wo con] Stat 11/28/23 08:16 FL small bowel follow through Routine 12/01/23 11:55 CT abd pelvis wo con Urgent 12/01/23 12:47 CT chest diagnostic wo con Urgent Abdomen/Pelvis CT 11/22/23 04:51 Exam(s): CT ABDOMEN + PELVIS Without Contrast EXAM: CT Abdomen and Pelvis Without Intravenous Contrast CLINICAL HISTORY: Reason for exam: poss obstruc or hydronephrosis. TECHNIQUE: Axial computed tomography images of the abdomen and pelvis without intravenous contrast. CTDI is 25.3 mGy and DLP is 1107.81 mGy-cm. Automated exposure control was utilized for the study. A dose lowering technique was utilized adhering to the principles of ALARA. COMPARISON: CT Abdomen Pelvis dated 08/28/23 FINDINGS: Lung bases: Bibasilar atelectasis and chronic changes. ABDOMEN: Liver: Unremarkable. Gallbladder and bile ducts: Unremarkable. No calcified stones. No ductal dilation. Pancreas: Unremarkable. No ductal dilation. Spleen: Unremarkable. No splenomegaly. Adrenals: Unremarkable. No mass. Kidneys and ureters: Mild left renal pelvic caliectasis and minimal surrounding stranding. No obstructing calculus visualized. Multiple nonobstructing bilateral renal calculi. Largest in the left lower pole, 12 mm as on the prior. Stomach and bowel: Left lower quadrant colostomy. Large parastomal hernia containing small bowel and colonic loops. No obstruction. No mucosal thickening. PELVIS: Appendix: No findings to suggest acute appendicitis. Bladder: Wall thickening of moderately distended bladder and mild surrounding stranding, new since prior. May represent cystitis. Gas within the urinary bladder may be due to infection or recent instrumentation. No stones. Reproductive: Unremarkable as visualized. ABDOMEN and PELVIS: Intraperitoneal space: Unremarkable. No free air. No significant fluid collection. Bones/joints: Levoscoliosis. Degenerative changes. T11 and L2 compression deformities, stable. No dislocation. Soft tissues: See above. Vasculature: Marked atherosclerotic calcifications of the aorta and branches. No abdominal aortic aneurysm. Lymph nodes: Unremarkable. No enlarged lymph nodes. IMPRESSION: 1. Wall thickening of moderately distended bladder and mild surrounding stranding. May represent cystitis. Gas within the urinary bladder may be due to infection or recent instrumentation. 2. Mild left renal pelvic caliectasis and minimal surrounding stranding. May relate to infection. 3. Multiple nonobstructing bilateral renal calculi. Largest in the left lower pole, 12 mm as on the prior. 4. Left lower quadrant colostomy. Large parastomal hernia containing small bowel and colonic loops. No obstruction. 5. Colonic diverticulosis. Electronically signed by: Ag Sutherland M.D. 11/22/23 06:[address] 11/22/23 04:51 Exam(s): CT L SPINE EXAM: CT Lumbar Spine Without Intravenous Contrast CLINICAL HISTORY: Reason for exam: lower back pain. TECHNIQUE: Axial computed tomography images of the lumbar spine without intravenous contrast. CTDI is 25.3 mGy and DLP is 1107.81 mGy-cm. Automated exposure control was utilized for the study. A dose lowering technique was utilized adhering to the principles of ALARA. COMPARISON: CT abdomen pelvis also today, and on 08/28/2023 FINDINGS: Vertebrae: Stable L2 compression deformity with 30% height loss. Prominent Schmorl's nodes of the T12 and L3 superior endplates. Mild levoscoliosis of the lumbar spine. Discs/spinal canal/neural foramina: Multilevel degenerative changes. Moderate central canal stenosis from L2-L5. Likely severe left foraminal stenosis at L4-5 and L5-S1. Soft tissues: Unremarkable. IMPRESSION: 1. No evidence of acute fracture or malalignment. 2. No significant interval change. 3. Stable L2 compression deformity with 30% height loss. 4. Multilevel degenerative changes. Electronically signed by: Ag Sutherland M.D. 11/22/23 07:00 AM Chest X-Ray 11/22/23 04:52 XR chest 1V portable HISTORY: Dyspnea COMPARISON: Chest 10/12/2023. FINDINGS: There are low lung volumes. No pneumothorax. The heart remains mildly enlarged. Mild chronic interstitial thickening persists. The upper lung zones appear clear. No acute fractures. Patchy bibasilar densities persist. This favors atelectasis. Emphysema again noted. IMPRESSION: 1. No significant change in the patchy bibasilar densities which favors atelectasis. 2. Cardiomegaly and emphysema again noted. ACT 112: Negative or not required by law. Electronically signed by: Demetri Workman M.D. 11/22/2023 7:[address] 11/22/23 08:05 CT chest diagnostic wo con CLINICAL HISTORY: persistent SOB and cough TECHNIQUE: Multidetector row helical CT of the chest was performed. Coronal and sagittal reformations were obtained. Automated dose lowering techniques and/or adjustment according to patient size were utilized for this exam. CT DOSE: 799.57 mGy.cm Comparison: Comparison is made to CT chest 08/06/2023 FINDINGS: Lungs and pleura: Emphysema and interstitial thickening is seen with mild bronchiectasis. There is atelectasis in the lingula and left lower lobe. Stable left fissural nodule. Heart and pericardium: Heart size is normal. No pericardial effusion. Vessels: Severe atherosclerotic changes in the aorta and coronary arteries. Pulmonary trunk measures 34 mm in diameter. Mediastinum and christopher: Subcentimeter lymph nodes are seen. Chest wall and lower neck: Unremarkable. Abdomen: Unremarkable. Bones: Degenerative changes in the thoracic spine. Compression deformities in the lower thoracic and upper lumbar spine are seen. IMPRESSION: 1. Emphysema and interstitial thickening without evidence of pneumonia. Mild bronchiectasis and has above. 2. Cardiomegaly and hypertension. ACT 112: Negative or not required by law. Electronically signed by: Yoel Elena M.D. 11/22/2023 9:58 AM Chest X-Ray 11/25/23 20:46 XR chest 1V portable CLINICAL HISTORY: sob TECHNIQUE: Single frontal radiograph of the chest was obtained. Comparison: Comparison is made to chest radiograph 11/22/2023 FINDINGS: No lines and tubes are seen. Cardiomegaly is noted. The aortic arch is calcified. The lungs are clear. Blunting of the left costophrenic angle is stable which may be due to extrapleural fat, however a left pleural effusion cannot be excluded. IMPRESSION: Possible small left pleural effusion. ACT 112: Negative or not required by law. Electronically signed by: Yoel Elena M.D. 11/26/2023 7:45 AM KUB X-Ray 11/25/23 20:46 XR KUB/Abdomen 1 view CLINICAL HISTORY: distended abdomen TECHNIQUE: 1 view of the abdomen was obtained. Comparison: Comparison is made to abdomen radiograph 08/07/2023 FINDINGS: Lung bases are unremarkable. Degenerative changes are seen in the visualized skeleton. The bowel gas pattern is nonobstructive. A moderate amount of stool is noted within the large bowel. Vascular calcifications are seen. IMPRESSION: Nonobstructive bowel gas pattern. ACT 112: Negative or not required by law. Electronically signed by: Yoel Elena M.D. 11/26/2023 7:44 AM Abdomen/Pelvis CT 11/26/23 07:22 CT abd pelvis wo con CLINICAL HISTORY: concern for SBO TECHNIQUE: Helical axial images of the abdomen and pelvis were obtained. Automated dose lowering techniques and/or adjustment according to patient size were utilized for this exam. This exam was performed without intravenous contrast. CT DOSE: 1160.98 mGy.cm COMPARISON: Comparison is made to CT abdomen pelvis 11/22/2023 FINDINGS: Lower chest: Emphysema and trace bilateral airspace opacities are seen which may represent atelectasis, pneumonia, and/or aspiration. Liver: Unremarkable. No focal lesions are seen. Gallbladder and biliary tree: Cholelithiasis is seen without evidence of cholecystitis. No intra- or extrahepatic biliary ductal dilation. Pancreas: Unremarkable, no focal lesions. Spleen: Unremarkable. Adrenals: Unremarkable. Kidneys and ureters: Nonobstructive nephrolithiasis is seen. Left pelvocaliectasis is again seen without evidence of obstructive stone. Bladder: Unremarkable. Reproductive organs: Unremarkable. Bowel: Multiple dilated loops of small bowel are seen measuring up to 37 mm in diameter. Postsurgical changes of partial colectomy with a left lower quadrant colostomy and Hernandez's pouch. A large parastomal hernia is again seen. There is a distal transition point in the inferior aspect of the hernia sac in the mid to distal ileum (series 3 image #15). No proximal transition point is seen. The colon is not under distended. Lymph nodes Retroperitoneal: Unremarkable. Pelvic: Unremarkable. Mesenteric: Unremarkable. Peritoneum: Normal. Vessels: Atherosclerotic calcifications are seen. Abdominal wall: A large parastomal hernia is seen containing multiple loops of large and small bowel. There is a midline umbilical hernia containing a portion of a loop of large bowel. Bones: Degenerative changes in the visualized spine. IMPRESSION: 1. Findings compatible with partial small bowel obstruction with a transition point at the ileum at the inferior aspect of the hernia sac. 2. Nonobstructive renal stones. 3. Parastomal hernia. 4. Additional findings as above. ACT 112: Negative or not required by law. Electronically signed by: Yoel Elena M.D. 11/26/2023 8:21 AM KUB X-Ray 11/26/23 11:33 XR KUB/Abdomen 1 view CLINICAL HISTORY: ng tube placement TECHNIQUE: 1 view of the abdomen was obtained. Comparison: Comparison is made to abdomen radiograph 11/25/[address] abdomen pelvis 12/27/2023 FINDINGS: Enteric tube appears looped within the stomach with the tip oriented superiorly. Degenerative changes are seen in the visualized skeleton. The bowel gas pattern is nonobstructive. A moderate amount of stool is noted within the large bowel. IMPRESSION: Enteric tube is looped within the stomach and can be repositioned for improved positioning. ACT 112: Negative or not required by law. Electronically signed by: Yoel Elena M.D. 11/26/2023 12:02 PM KUB X-Ray 11/26/23 12:58 XR KUB/Abdomen 1 view CLINICAL HISTORY: NGT repositioned per recommendation on RAD report TECHNIQUE: 1 view of the abdomen was obtained. Comparison: Comparison is made to abdomen radiograph 11/26/2023 FINDINGS: Enteric tube has been repositioned and the tip and side port now project over the stomach. Degenerative changes are seen in the visualized skeleton. IMPRESSION: Satisfactory position of the enteric tube status post repositioning. ACT 112: Negative or not required by law. Electronically signed by: Yoel Elena M.D. 11/26/2023 2:02 PM KUB X-Ray 11/27/23 15:21 KUB CLINICAL HISTORY: verify position of NG tube COMPARISON STUDY: CT of the abdomen and pelvis November 26, 2023. KUB November 26, 2023. FINDINGS: Tip of the nasogastric tube is within the proximal body of the stomach. Bibasilar opacities are again noted. Blunting of the left costophrenic angle is likely chronic. IMPRESSION: Appropriately positioned nasogastric tube. Tip within the proximal body of the stomach. ACT 112: Negative or not required by law. Electronically signed by: Oh Townsend M.D. 11/27/2023 3:45 PM Chest X-Ray 11/27/23 16:25 XR chest 1V portable CLINICAL HISTORY: increasing oxygen requirement COMPARISON STUDY: Chest CT November 22, 2023. Chest radiograph November 25, 2023. FINDINGS: Tip of nasogastric tube is within the body of the stomach. There is no pneumothorax. Blunting of the left costophrenic angle is likely chronic. Bibasilar opacities have increased. Cardiomediastinal silhouette is stable. Mild interstitial thickening is unchanged. IMPRESSION: 1. Increase in bibasilar opacities. Right basilar opacity favors atelectasis. Left basilar opacity also likely reflects atelectasis however superimposed pneumonia would be difficult to exclude. 2. Stable cardiomegaly and chronic interstitial thickening. ACT 112: Negative or not required by law. Electronically signed by: Oh Townsend M.D. 11/27/2023 4:54 PM KUB X-Ray 11/28/23 07:00 KUB CLINICAL HISTORY: Follow up on SBO COMPARISON STUDY: CT of the abdomen and pelvis November 26, 2023. KUB November 27, 2023. FINDINGS: Tip of nasogastric tube is within the proximal body of the stomach. Sidehole is at the GE junction. Several loops of moderately dilated small bowel measure up to 5.1 cm in caliber. Moderate amount of stool within the rectum is present. Left basilar opacity is again noted with blunting of the costophrenic angles. IMPRESSION: 1. Tip of nasogastric tube within the proximal body of the stomach. The tube could be advanced 3 cm. 2. Multiple loops of moderately dilated small bowel. The findings represent a persistent small bowel obstruction. ACT 112: Negative or not required by law. Electronically signed by: Oh Townsend M.D. 11/28/2023 9:46 AM Small Bowel X-Ray 11/28/23 08:16 SMALL BOWEL FOLLOW-THROUGH CLINICAL HISTORY: eval SBO COMPARISON STUDY: CT of the abdomen and pelvis November 26, 2023. KUB November 28, 2023 at 7:04 AM. TECHNIQUE: A inside sales executive KUB was obtained. A small bowel follow-through was then performed. Dilute Optiray 320 was administered via nasogastric tube. Imaging was carried out for 21.5 hours. FINDINGS: Horticulture Worker image demonstrates several loops of dilated small bowel, similar to prior KUB. The small bowel is moderately dilated. Small bowel is likely opacified to at least the mid ileum. Note is made of small bowel loops within a left lower quadrant parastomal hernia as well as a ventral hernia. No definite contrast within the right colon is noted. No further imaging was performed given 21.5 hours of imaging. Density within the right colon likely reflect stool. IMPRESSION: Findings consistent with a persistent small bowel obstruction. Small bowel moderately dilated to at least the level of the mid ileum. Small bowel loops within the left lower quadrant parastomal hernia and a ventral hernia. Transition point not well identified by fluoroscopy. No definite opacification of the right colon. ACT 112: Negative or not required by law. Electronically signed by: Oh Townsend M.D. 11/29/2023 7:45 AM KUB X-Ray 11/29/23 07:57 KUB CLINICAL HISTORY: Small bowel obstruction. COMPARISON STUDY: CT of the abdomen and pelvis November 26, 2023. KUB and small bowel follow-through November 28, 2023. FINDINGS: Residual contrast within the stomach is noted. Oral contrast throughout the proximal to mid small bowel is present. The majority of the small bowel is moderately dilated. A small amount of suspected contrast within the cecum is present. Distal small bowel appears relatively decompressed. Multiple small bowel loops within a left parastomal hernia and ventral hernia are present, better depicted on prior CT. IMPRESSION: Moderate dilatation of the proximal to mid small bowel with probable small amount of contrast within the cecum and relatively decompressed distal small bowel. The findings suggest a persistent partial small bowel obstruction with transition point likely within the distal ileum. ACT 112: Negative or not required by law. Electronically signed by: Oh Townsend M.D. 11/29/2023 9:16 AM KUB X-Ray 11/30/23 08:22 KUB HISTORY: Small bowel obstruction. Follow-up. COMPARISON: KUB 11/29/2023. FINDINGS: Nasogastric tube is noted within the proximal stomach. This is similar to the prior study. Dilated and contrast-filled loops of small bowel are again seen throughout the abdomen. These measure up to 4.5 cm in diameter and are similar to the prior study. Small amount of contrast is seen within the cecum which has slightly progressed. No renal calculi. No ureteral calculi. No pneumoperitoneum or pneumatosis. IMPRESSION: Moderate dilatation of the majority of the small bowel loops which is similar to the prior study consistent with a persistent partial small bowel obstruction. There is a small amount of contrast seen within the cecum which has slightly progressed. ACT 112: Negative or not required by law. Electronically signed by: Demetri Workman M.D. 11/30/2023 11:14 AM KUB X-Ray 11/30/23 19:14 XR KUB/Abdomen 1 view CLINICAL HISTORY: confirm NGT placement TECHNIQUE: 1 view of the abdomen was obtained. Comparison: Comparison is made to abdomen radiograph 11/30/2023 FINDINGS: Satisfactory position of enteric tube with the tip and side-port below the diaphragm. Degenerative changes are seen in the visualized skeleton. Bowel gas pattern is not well seen. IMPRESSION: Satisfactory position of enteric tube. ACT 112: Negative or not required by law. Electronically signed by: Yoel Elena M.D. 12/01/2023 10:17 AM Abdomen/Pelvis CT 12/01/23 11:55 CT OF THE ABDOMEN AND PELVIS WITHOUT CONTRAST CLINICAL HISTORY: eval SBO and WBC 26 COMPARISON STUDY: CT of the abdomen and pelvis November 26, 2023. Small bowel follow-through November 28, 2023. KUB November 30, 2023. TECHNIQUE: Axial images of the abdomen and pelvis were obtained without IV contrast. Images were reviewed in the axial, sagittal, and coronal planes. Automated exposure control was utilized for the study. A dose lowering technique was utilized adhering to the principles of ALARA. FINDINGS: Please note that the chest CT will be reported separately. Small layering gallstones within the gallbladder are present. The gallbladder is mildly distended. There is no pericholecystic infiltration. Unenhanced images of the liver, spleen, adrenal glands and pancreas are unremarkable. Contrast within the collecting systems and ureters obscures left renal calculi that measure up to 1.5 cm. There is no hydronephrosis. A Melton within the bladder is present. There is contrast within the bladder. There is a large amount of stool within t he rectum. Descending colostomy is noted with large parastomal hernia. The hernia contains multiple dilated small bowel loops. The stomach is distended. The proximal to mid small bowel is distended with discrete transition point within a ventral hernia on axial image 326 of [id number]. Small bowel dilatation is similar to CT of November 26, 2023. The distal ileum is decompressed. Dilute contrast throughout the stomach and small bowel is from recent small bowel follow- through. Contrast within the colon is present. IMPRESSION: 1. Findings consistent with a persistent small bowel obstruction, similar to CT of November 26, 2023 with transition point at the neck of a ventral hernia, similar to prior CT. Residual oral contrast throughout the stomach, proximal and mid small bowel from recent small bowel follow-through. Contrast does reach the colon. 2. 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 3. Large amount of stool within the rectum. 4. Left lower lobe airspace opacity which favors pneumonia or aspiration pneumonitis. 5. Trace bilateral pleural effusions. ACT 112: Negative or not required by law. Electronically signed by: Oh Townsend M.D. 12/01/2023 2:[address] 12/01/23 12:47 CT OF THE CHEST WITHOUT IV CONTRAST CLINICAL HISTORY: Hypoxia. COMPARISON STUDY: Chest CT November 22, 2023. Chest radiograph November 27, 2023. TECHNIQUE: Axial images of the chest were obtained without IV contrast. Images were reviewed in the axial, sagittal, and coronal planes. IV contrast was not administered for this examination. Automated exposure control was utilized for the study. A dose lowering technique was utilized adhering to the principles of ALARA. FINDINGS: No enlarged axillary, mediastinal or hilar lymph nodes are present. There is mild cardiomegaly. Tip of nasogastric tube is within the body of the stomach, depicted on the CT of the abdomen and pelvis which will be reported separately. There is no pericardial effusion. There are trace bilateral pleural effusions. No pneumothorax is present. Moderate emphysema is noted. Subpleural right lower lobe opacity favors atelectasis. Moderate left lower lobe opacity has developed since prior exam. Left lower lobe volume loss is noted. Interval opacification of left lower lobe bronchus also new since prior CT. IMPRESSION: 1. Interval development of left lower lobe consolidation with volume loss as well as opacification of left lower lobe bronchi. The findings favor aspiration pneumonitis/pneumonia. 2. Emphysema. 3. Trace bilateral pleural effusions. ACT 112: Negative or not required by law. Electronically signed by: Oh Townsend M.D. 12/01/2023 1:38 PM Discharge Instructions Given to Patient (Per Discharging Provider) , [place] [facility] [place] and [place] of your small bowel obstruction. Total Time Total Time Spent Total Time Spent (In Minutes): 75
[2023-12-01] MEDS: SODIUM CHLORIDE 0.9% 1,000 ML IV ONE (16:42)
[2023-12-01] MEDS: PIPERACILLIN/TAZOBACTAM 4.5 GM in DEXTROSE 5% MINI-B 100 ML IV ONE (16:42)
[2023-12-01 17:36] LABS: Appearance Urine Cloudy (Clear); Bacteria Urine Automated None Seen (None Seen); Bilirubin Urine 1+ (Negative); Blood Urine Negative (Negative); Cast Urine Automated >20 /lpf (0-2); Color Urine Dark Yellow; Glucose Urine UA Negative (Negative); Ketones Urine Trace (Negative); Leukocyte Esterase Urine 1+ (Negative); Nitrite Urine Negative (Negative); Protein Urine 1+ (Negative); RBC Urine Automated 0-2 /hpf (0-2); Specific Gravity Urine 1.038 (1.000-1.030); Urobilinogen Urine Negative (Negative); WBC Urine Automated 21-50 /hpf (0-5)
[2023-12-01 19:33] VITALS: BP 103/63; PULSE 104; RESP 18; TEMP 97.9; O2SAT 91
[2023-12-01] MEDS ORDERED: PIPERACILLIN/TAZOBACTAM 4.5 GM in DEXTROSE 5% MINI-B 100 ML IV SCH (23:00)
== END 2023-12-01 20:13 | disposition short-term general hospital (02) | DRG 393 ==
LOC: ED 04:36 → EDINP 08:06 → SUATTDRO 08:06 → 4W 11:50

== ENCOUNTER 2024-04-17 06:24 | Inpatient (IN) ==
[2024-04-17] MEDS: oxyCODONE HCL IR 5 MG TAB (IMMEDIATE RELEASE) PO STA (07:30)
[2024-04-17] MEDS: LIDOCAINE 5% 1 PATCH TD STA (07:30)
[2024-04-17 07:47] LABS: Basophils # (auto) 0.04 K/uL (0.00-0.20); Basophils % (auto) 0.3 %; Eosinophils # (auto) 0.19 K/uL (0.00-0.50); Eosinophils % (auto) 1.3 %; Hematocrit (blood only) 36.5 % (37.0-47.0); Hemoglobin 11.5 g/dl (12.0-16.0); Immature Granulocytes % (auto) 0.7 %; Lymphocytes % (auto) 8.1 %; Mean Corpuscular Hemoglobin 28.5 pg (25.0-34.0); Mean Corpuscular Hgb Conc 31.5 g/dL (32.0-36.0); Mean Corpuscular Volume 90.3 fL (80.0-100.0); Mean Platelet Volume 9.6 fL (9.4-12.4); Monocytes # (auto) 1.16 K/uL (0.11-0.59); Monocytes % (auto) 7.8 %; Neutrophils # (auto) 12.17 K/uL (1.40-6.50); Neutrophils % (auto) 81.8 %; Platelet Count 344 K/uL (130-400); RDW Coefficient of Variation 13.3 % (11.5-14.5); RDW Standard Deviation 44.7 fL (36.4-46.3); Red Blood Count 4.04 M/uL (4.20-5.40); White Blood Count 14.86 K/ul (4.8-10.8)
--- NOTE | 2024-04-17 07:47 | Emergency Department Note ---
ED Provider Note History of Present Illness Chief Complaint: Back Injury/Pain Stated Complaint: BACK PAIN, ON GOING ISSUE FOR COUPLE WEEKS Time Seen by Provider: 04/17/24 07:05 Source: patient and EMS Mode of arrival: EMS Limitations: no limitations Patient is an 84-year-old female who presents to the emergency department with complaints of lower back pain. Patient states that she is having pain across her lower back and bilateral flanks. Patient states that she was seen at her primary care physician's office a couple days ago for the same symptoms and was prescribed Flexeril. Patient states that she is only taken 1 dose and it seemed to help a little bit but she still having pain. Patient notes that she has had issues with lower back pain for quite some time and this episode has lasted several weeks but states that the pain got worse with ambulation this morning. Patient denies any numbness or tingling or any incontinence of bladder or bowel. Patient does state that she is having increased urinary frequency but denies any burning with urination. Patient also denies any injuries. Home Medications Medication Instructions Recorded Confirmed Type calcium 500 mg (as 1 tab PO QPM 03/10/19 04/17/24 History carbonate)-vitamin D3 10 mcg (400 unit) tablet (Calcium 500 + D) ferrous sulfate 325 mg (65 mg 325 mg PO QAM 03/10/19 04/17/24 History iron) tablet vit C 250 mg-vit E 90 mg-zinc 40 1 tab PO QAM 03/10/19 04/17/24 History mg-copper 1 [id number] capsule (PreserVision AREDS-2) guaifenesin 600 mg tablet, 600 mg PO BID #60 tabs 07/16/20 04/17/24 Rx extended release 12 hr (Mucinex) ascorbic acid (vitamin C) 500 mg 500 mg PO QAM 12/08/20 04/17/24 History tablet (Vitamin C) cyclosporine 0.05 % eye drops in a 1 drp OPB BID 12/08/20 04/17/24 History dropperette (Restasis) Portable Oxygen #1 ea 03/25/21 08/28/23 Rx rivaroxaban 15 mg tablet (Xarelto) 15 mg PO QPM 11/05/21 04/17/24 History Auto Titrating CPAP #1 ea 02/03/23 08/28/23 Rx CPAP Supplies #1 ea 02/03/23 08/28/23 Rx budesonide 0.25 mg/2 mL suspension 0.25 mg (2 mL) inhalation BID #60 02/03/23 04/17/24 Rx for nebulization mL umeclidinium 62.5 mcg-vilanterol 1 inh inhalation QAM #60 ea 02/03/23 04/17/24 Rx 25 mcg/actuation powdr for inhalation (Anoro Ellipta) mesalamine 1.2 gram tablet,delayed 3.6 g PO QAM 03/14/23 04/17/24 History release acetaminophen 325 mg tablet 325 mg PO Q6H PRN PAIN/FEVER 07/25/23 04/17/24 History (Tylenol) ipratropium 0.5 mg-albuterol 3 mg 3 ml inhalation Q4H PRN Wheezing 07/25/23 04/17/24 History (2.5 mg base)/3 mL nebulization soln omega-3 fatty acids 500 mg capsule 500 mg PO QAM 07/25/23 04/17/24 History solifenacin 5 mg tablet 5 mg PO QAM 07/25/23 04/17/24 History furosemide 20 mg tablet 20 mg PO QAM 08/28/23 04/17/24 History denosumab 60 mg/mL subcutaneous 60 mg subcut UD 10/12/23 04/17/24 History syringe (Prolia) verapamil 120 mg tablet,extended 120 mg PO QAM 10/12/23 04/17/24 History release pantoprazole 40 mg tablet,delayed 40 mg PO BID #60 tabs 10/16/23 04/17/24 Rx release albuterol sulfate 90 mcg/actuation 2 puff inhalation UD PRN 04/17/24 04/17/24 History aerosol inhaler SOB/Wheezing baclofen 10 mg tablet 10 mg PO DAILY 04/17/24 04/17/24 History Allergies Allergy/AdvReac Type Severity Reaction Status Date / Time amoxicillin Allergy Intermediate Rash Verified 04/17/24 09:59 cephalexin [From Keflex] Allergy Intermediate Rash Verified 04/17/24 09:59 cilostazol [From Pletal] Allergy Intermediate Rash Verified 04/17/24 09:47 ciprofloxacin [From Cipro] Allergy Intermediate Rash Verified 04/17/24 09:47 diltiazem Allergy Intermediate Rash Verified 04/17/24 09:47 felodipine Allergy Intermediate Rash Verified 04/17/24 09:47 meloxicam Allergy Intermediate Rash Verified 04/17/24 09:47 sulfamethoxazole Allergy Intermediate Rash Verified 04/17/24 09:47 [From Bactrim] trimethoprim [From Bactrim] Allergy Intermediate Rash Verified 04/17/24 09:47 Past Med/Surg History Problem List (Updated 04/17/24 @ 12:46 by Brenda Reece PA-C) Age-related osteoporosis with current pathol fracture of vertebra Compression fracture of L4 vertebra Ambulatory dysfunction (Acute) Acute hypokalemia (Acute) Acute UTI (urinary tract infection) (Acute) Compression fx, lumbar spine (Acute) Hypokalemia (Acute) Anemia (Acute) Abdominal pain (Acute) Small bowel obstruction CHF (congestive heart failure) (Acute) Wheezing (Acute) Leukocytosis (Acute) Lower back pain (Acute) Acute UTI (Acute) Anemia (Acute) SOB (shortness of breath) (Acute) Acute UTI (Acute) LOPEZ (acute kidney injury) Influenza A virus subtype H1 2009 pandemic strain present (Acute) COPD with acute exacerbation (Acute) Acute respiratory failure with hypoxia (Acute) Parastomal hernia Influenza A Anemia (Acute) Physical deconditioning Acute on chronic respiratory failure Atrioventricular (AV) dissociation Third degree heart block UTI (urinary tract infection) FRANCIS (obstructive sleep apnea) Anemia (Acute) Weakness (Acute) GI (gastrointestinal bleed) (Acute) Dizziness (Acute) Weakness (Acute) FIGUEROA (dyspnea on exertion) (Acute) Vestibular neuritis Acute respiratory failure with hypoxia Colon polyp Chronic respiratory failure with hypoxia (Acute) PVD (peripheral vascular disease) PAF (paroxysmal atrial fibrillation) on xarelto/flecainide--follows with Dr. Savage Osteoporosis CKD (chronic kidney disease), stage III (Acute) HTN (hypertension) HLD (hyperlipidemia) Multiple pulmonary nodules Tobacco dependence due to cigarettes 5 per day Chronic bronchitis Colostomy in place COPD (chronic obstructive pulmonary disease) (Acute) inhaler daily/prn, nebulizer daily/prn; continuous oxygen 3L History of creation of ostomy 10/2018 Diverticulitis Medical History Osteoarthritis Chronic back pain Diverticular disease Skin cancer of nose 1970s--unsure which kind, removed in office On anticoagulant therapy xarelto daily On home oxygen therapy 4L N/C PRN Depression Macular degeneration Surgical History History of appendectomy taken out during resection of bowel History of colonoscopy History of tooth extraction History of cataract extraction with lens replacement bilateral History of tonsillectomy History of tubal ligation History of resection of large bowel (~10/2018) perforated bowel d/t diverticulitis Family History Father Pancreatic cancer Mother Stroke Other No family history of adverse response to anesthesia Social History Smoking Status: Current every day smoker Tobacco Type: Cigarettes Age Started Using Tobacco: 22; Cigarettes Per Day: 5; Second Hand Exposure: No; Do You Dip or Chew Tobacco: No; Tobacco Cessation Education Requested by Patient: No Hx Alcohol Use: No Hx Substance Use: No Preferred Language: Telugu Communication Ability: Effective Television Servicer Required: No Beliefs That Will Affect Care: None marital status: / Current Living Situation: Alone Current Living Situation Comment: Lives home alone, family checks in often, and has home health Other Information That Helps Us Care for You: No Feels Safe at Home: Yes Assistive Devices: Glasses, Nebulizer and Oxygen - Continuous Physical Exam Vital Signs Vital Signs - 24 hr 04/17/24 06:30 04/17/24 06:35 04/17/24 09:00 Temperature 36.9 C Temperature Source Oral Pulse Rate 82 82 71 Pulse Rate [Apical] Pulse Rhythm Regular Pulse Rhythm [Apical] Pulse Strength Normal Respiratory Rate 18 18 Respiratory Effort / Characteristics Non-Labored Spontaneous Respiratory Depth Normal Respiratory Pattern Regular Blood Pressure 153/84 H Blood Pressure [Right Arm] Blood Pressure Mean 107 Blood Pressure Mean [Right Arm] Blood Pressure Position [Right Arm] Pulse Oximetry 98 98 Oxygen Delivery Method Room Air Nasal Cannula Oxygen Flow Rate 4 Sepsis Recent Fever Within 48 Hours No Sepsis New/Unexplained Change in Mental Status N/A Sepsis Action Taken by Nursing No Action Required 04/17/24 09:00 Temperature Temperature Source Pulse Rate Pulse Rate [Apical] 77 Pulse Rhythm Pulse Rhythm [Apical] Regular Pulse Strength Respiratory Rate 18 Respiratory Effort / Characteristics Non-Labored Spontaneous Respiratory Depth Normal Respiratory Pattern Blood Pressure Blood Pressure [Right Arm] 160/75 H Blood Pressure Mean Blood Pressure Mean [Right Arm] 103 Blood Pressure Position [Right Arm] Semi-fowlers Pulse Oximetry 98 Oxygen Delivery Method Nasal Cannula Oxygen Flow Rate 4 Sepsis Recent Fever Within 48 Hours Sepsis New/Unexplained Change in Mental Status Sepsis Action Taken by Nursing VITAL SIGNS - Vital signs and nursing notes were reviewed. GENERAL -84-year-old female appearing her stated age and in noticeable discomfort throughout the exam. NECK - FROM of the cervical spine. ABDOMEN - Abdominal contour rounded without pulsations or visible masses. BS normoactive all four quadrants. MUSCULOSKELETAL - ROM of the lumbar spine region was limited due to discomfort. No step-off deformities were palpated down the cervical, thoracic, or lumbar spines. Mild increased tenderness to Palpation experienced at the level of the lumbar spine across the paraspinal muscle distribution. Patient's pain increases with range of motion. NEUROLOGIC - REFLEXES: +3/4 patellar reflexes B/L, +3/4 Achilles reflexes B/L. SENSORY: Spinothalamic tract was found to be intact with ability to discriminate sharp versus dull sensation at the level of hip joint down do the great toe. No sensory defects of the dorsal column were appreciated utilizing light touch for evaluation. CEREBELLAR: Pt able to perform rapid alternating movements of the feet. EXTREMITIES - Range of Motion - No tremors, ticks, or fasciculations of the lower extremities noticed during inspection. FROM of the lower extremities. Pt able to perform straight leg raises B/L without any difficulty. VASCULAR - Capillary refill of the great toe was brisk. No mottling or blanching of the extremities present. +3/5 dorsalis pedis pulses palpated bilaterally. Course Administered Medications Acetaminophen (Acetaminophen 500 Mg Tab) 1,000 mg PO Q8H [facility] Stop: 05/17/24 12:29 Last Admin: 04/17/24 13:14 Dose: 1,000 mg Documented By: ALEX Potassium Chloride/Sodium Chloride (Normal Saline W/20 Meq Kcl) 20 meq in 1,000 mls @ 80 mls/hr IV .[id number] [facility] Stop: 04/17/24 23:44 Last Admin: 04/17/24 12:48 Dose: 80 mls/hr Documented By: ALEX Discontinued Medications Potassium Chloride (K Shoaib / Wtr) 10 meq in 100 mls @ 100 mls/hr IV Q1H [place] Stop: 04/17/24 10:14 Last Infusion: 04/17/24 11:03 Dose: Infused Documented By: Admin: 04/17/24 09:54 Dose: 100 mls/hr Documented By: Infusion: 04/17/24 09:41 Dose: Infused Documented By: Admin: 04/17/24 08:41 Dose: 100 mls/hr Documented By: KRISTI Ceftriaxone Sodium (Rocephin) 1,000 mg in 50 mls @ 100 mls/hr IV NOW STA Stop: 04/17/24 09:18 Last Infusion: 04/17/24 11:03 Dose: Infused Documented By: Admin: 04/17/24 10:02 Dose: 100 mls/hr Documented By: KRISTI Lidocaine (Lidocaine 5% 1 Patch) 1 patch TD NOW STA Stop: 04/17/24 07:19 Last Admin: 04/17/24 07:30 Dose: 1 patch Documented By: KRISTI Morphine Sulfate (Morphine Sulfate 2 Mg/Ml Carp) 2 mg IV NOW STA Stop: 04/17/24 10:52 Last Admin: 04/17/24 11:45 Dose: 2 mg Documented By: ALEX Oxycodone HCl (Oxycodone Hcl Ir 5 Mg Tab (Immediate Release)) 5 mg PO NOW STA Stop: 04/17/24 07:19 Last Admin: 04/17/24 07:30 Dose: 5 mg Documented By: KRISTI Potassium Chloride (Potassium Chloride Crtab 20 Meq Tabcr) 40 meq PO NOW STA Stop: 04/17/24 08:44 Last Admin: 04/17/24 09:36 Dose: 40 meq Documented By: KRISTI Medical Decision Making Differential Diagnosis In the evaluation and treatment of this patient the following differential diagnoses were considered: Cauda equina syndrome, discitis, kidney stone, urinary tract infection, sciatica, epidural abscess, psoas abscess, musculoskeletal strain, lumbar fracture, lumbar dislocation, lumbar subluxation, spondylolisthesis, spondylosis, or compression fracture. Medical Records Attestation: I reviewed the patient's medical records. Home Medications was personally reviewed by me Laboratory Data Attestation: I reviewed the patient's lab results. 04/17/24 06:30 04/17/24 06:30 Lab Results 04/17/24 04/17/24 Range/Units 06:30 08:02 WBC 14.86 H (4.8-10.8) K/ul RBC 4.04 L (4.20-5.40) M/uL Hgb 11.5 L (12.0-16.0) g/dl Hct 36.5 L (37.0-47.0) % MCV 90.3 (80.0-100.0) fL MCH 28.5 (25.0-34.0) pg MCHC 31.5 L (32.0-36.0) g/dL RDW Std Deviation 44.7 (36.4-46.3) fL RDW Coeff of [place] 13.3 (11.5-14.5) % Plt Count 344 (130-400) K/uL MPV 9.6 (9.4-12.4) fL Immature Gran % (Auto) 0.7 % Neut % (Auto) 81.8 % Lymph % (Auto) 8.1 % [place]assen % (Auto) 7.8 % Eos % (Auto) 1.3 % Baso % (Auto) 0.3 % Neut # (Auto) 12.17 H (1.40-6.50) K/uL Lymph # (Auto) 1.20 (1.20-3.40) K/uL [place]assen # (Auto) 1.16 H (0.11-0.59) K/uL Eos # (Auto) 0.19 (0.00-0.50) K/uL Baso # (Auto) 0.04 (0.00-0.20) K/uL Immature Gran # (Auto) 0.10 (0.01-0.20) K/uL Sodium 143 (136-145) mmol/L Potassium 2.5 L* (3.5-5.1) mmol/L Chloride 97 L (98-107) mmol/L Carbon Dioxide 38 H (21-32) mmol/L Anion Gap 8 (3-11) BUN 14 (6-23) mg/dl Creatinine 1.06 (0.6-1.2) mg/dl Est Cr Clr Drug Dosing 33.9 ml/min eGFR 52.45 BUN/Creatinine Ratio 13.2 (10-20) Glucose 118 H (70-99(Fasting)) mg/dl Calcium 8.7 (8.6-10.3) mg/dl Magnesium 1.7 (1.7-2.4) mg/dl Total Bilirubin 0.3 (0.2-1.0) mg/dl AST 10 L (13-39) U/L ALT 4 L (7-52) U/L Alkaline Phosphatase 91 (34-104) U/L Total Protein 7.4 (6.0-8.3) gm/dl Albumin 3.5 (3.4-5.0) gm/dl Globulin 3.9 (2.5-4.0) gm/dl Albumin/Globulin Ratio 0.9 (0.9-2) Procalcitonin 0.04 (0-0.5) ng/ml Urine Color [place] Urine Appearance Turbid A (Clear) Urine pH 6.0 (4.5-7.5) Ur Specific [place] 1.014 (1.000-1.030) Urine Protein 2+ H (Negative) Urine Glucose (UA) Negative (Negative) Urine Ketones Trace H (Negative) Urine Blood 3+ H (Negative) Urine Nitrite Negative (Negative) Urine Bilirubin Negative (Negative) Urine Urobilinogen Negative (Negative) Ur Leukocyte Esterase 3+ H (Negative) Urine WBC (Auto) >50 H (0-5) /hpf Urine RBC (Auto) >20 H (0-2) /hpf U Hyaline Cast (Auto) 0-2 (0-2) /lpf U Epithel Cells (Auto) 0-2 (0-2) /hpf Urine Bacteria (Auto) 4+ H (None Seen) Imaging Data Radiologist's Impression: Abdomen/Pelvis CT 04/17/24 07:14 CT OF THE ABDOMEN AND PELVIS WITHOUT CONTRAST CLINICAL HISTORY: Bilateral flank pain. COMPARISON STUDY: CT of the abdomen and pelvis April 07, 2024. TECHNIQUE: Axial images of the abdomen and pelvis were obtained without IV contrast. Images were reviewed in the axial, sagittal, and coronal planes. Automated exposure control was utilized for the study. A dose lowering technique was utilized adhering to the principles of ALARA. FINDINGS: There is been interval development of bilateral lower lobe airspace opacity, greater on the left, since CT of April 07, 2024. Multiple left renal calculi measure up to 1.3 cm. There are no ureteral calculi. Calcifications within the right renal sinus are likely vascular in etiology. Mild left hydronephrosis is unchanged. This has been shown on multiple prior studies. There is gas within the bladder. Evaluation of the remainder of the abdomen and pelvis is suboptimal on this unenhanced exam. Liver, spleen, adrenal glands and pancreas are unremarkable. 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 There is no resultant bowel obstruction. A large amount of stool within the rectum is again noted. Prominent perirectal lymph nodes are unchanged. No fluid collections are present. Old thoracolumbar spine compression fractures are present. L4 compression fracture is new since CT of April 07, 2024 with 30% loss of vertebral body height. There is no retropulsion or extension into the posterior elements. No additional acute fractures are identified. IMPRESSION: 1. Acute L4 compression fracture with 30% loss of vertebral body height. No retropulsion. Multiple old thoracolumbar spine compression fractures. 2. 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 No resultant bowel obstruction. 3. Left nephrolithiasis. No ureteral calculi. Mild left hydronephrosis, similar to prior exams. This could reflect a UPJ type obstruction. 4. Large amount stool within the rectum, similar to prior exam. Stable prominent indeterminate perirectal lymph nodes. These can be assessed on follow-up exams. ACT 112: Negative or not required by law. Electronically signed by: Oh Townsend M.D. 04/17/2024 8:36 AM Lumbar Spine X-Ray 04/17/24 07:14 XR lumbar spine 2-3V CLINICAL HISTORY: lumbar back pain COMPARISON STUDY: Lumbar spine radiographs May 10, 2019. Lumbar spine CT November 22, 2023. FINDINGS: Mild lumbar spine levoscoliosis is unchanged. Mild loss of height of the L4 vertebral body is new since CT of April 07, 2024. This represents an acute compression fracture. Additional old lower thoracic and lumbar spine compression fractures are unchanged since that exam. Moderate multilevel degenerative disc disease and severe facet arthrosis is present. IMPRESSION: 1. Interval development of mild L4 compression fracture with 30% loss of vertebral body height since CT of April 07, 2024. This represents an acute fracture. 2. Multiple old lower thoracic and lumbar spine compression fractures. 3. Moderate degenerative disc disease and severe facet arthrosis within the lumbar spine. 4. Mild lumbar spine levoscoliosis. ACT 112: Negative or not required by law. Electronically signed by: Oh Townsend M.D. 04/17/2024 8:44 AM Chest X-Ray 04/17/24 08:43 XR chest 1V portable CLINICAL HISTORY: Hx CHF COMPARISON STUDY: Chest radiograph November 27, 2023. Chest CT December 01, 2023. FINDINGS: There is no pneumothorax or pleural effusion. Cardiomegaly is unchanged. There is pulmonary vascular congestion. Underlying emphysema is present. Left basilar opacity is present. There is also minimal right basilar opacity. IMPRESSION: 1. Cardiomegaly with pulmonary vascular congestion. 2. Bibasilar opacities, greater on the left. The findings could reflect atelectasis or consolidation. 3. Emphysema. ACT 112: Negative or not required by law. Electronically signed by: Oh Townsend M.D. 04/17/2024 9:20 AM MDM Narrative Patient is an 84-year-old female who presents to the emergency department with complaints of lower back pain. Patient states that she has had ongoing back issues for a long time states that this episode is been going on for several weeks. Patient states that this morning when she attempted to get up and get moving that her back pain was worse with ambulation. Patient denies any numbness or tingling any incontinence of bladder or bowel. Patient denies any injuries. Patient notes that she has had increased urinary frequency but denies any other urinary symptoms at this time. Patient is able to ambulate but notes increased pain with ambulation or range of motion. Patient was evaluated by myself and findings were noted in the physical exam above. Patient was ordered IV access, lab work, urinalysis, and imaging. I ordered an x-ray of the patient's lumbar spine as well as a CT of her abdomen and pelvis to rule out any acute bony abnormalities in her lumbar spine or presence of kidney stone or other intra-abdominal abnormalities. Patient notes that she has been taking Tylenol at home and Flexeril as prescribed by her PCP at home with little relief of her symptoms. Patient was ordered oxycodone for pain and a Lidoderm patch as well. Upon reevaluation the patient states that her pain has improved but she still notes some discomfort, however reports that it went from a 10/10 to a 6/10. Patient's abdominal CT was interpreted by radiology to show an acute L4 compression fracture, her descending colostomy with redemonstration of a large parastomal hernia which contains multiple small and large bowel loops that was seen previously. No noted bowel obstruction. Patient's lumbar spine x-ray was also interpreted by radiology to show interval development of a mild L4 compression fracture and multiple old lower thoracic and lumbar spine compression fractures. Patient's lab work notes an elevated white blood cell count at 14.86, as well as a critically low potassium level of 2.5. The likely cause of the elevated white blood cell count is a urinary tract infection. Patient's urinalysis showed positive urine protein, positive blood, positive ketones, white blood cells and bacteria. Patient was ordered IV potassium and oral potassium to supplement her hypokalemia. Patient was ordered IV Rocephin to treat her urinary tract infection. Patient does have a noted allergy to cephalexin, however she was given Rocephin in the past with no problems. Patient also notes that she is still having significant pain when attempting to stand and ambulate. I discussed with the patient inpatient treatment of her hypokalemia, UTI, and pain versus outpatient treatment with follow-up. Because of the patient's past medical history and having multiple acute complaints at this time I recommended that the patient consider inpatient treatment in the hospital to ensure that her exam level comes up and the UTI is treated. Patient was agreeable to inpatient hospitalization at this time. I reached out to case management to admit this patient to the hospital. I spoke with Salma MARTIN with the [facility] hospitalist group and gave her a report of the patient's current condition, complaints, history and workup findings. The patient was accepted for admission to the hospital of the vascular hospitalist group. Please refer to their documentation for further management evaluation of this patient. Impression Compression fx, lumbar spine, Acute UTI (urinary tract infection), Acute hypokalemia, Ambulatory dysfunction Discharge Plan Visit Data Chief Complaint: Back Injury/Pain Stated Complaint: BACK PAIN, ON GOING ISSUE FOR COUPLE WEEKS ED Provider: Drew Rodriguez ED Midlevel Provider: Jennifer Mallory Discharge Problem: Compression fx, lumbar spine, Acute UTI (urinary tract infection), Acute hypokalemia, Ambulatory dysfunction Patient Disposition: Admitted As Inpatient Discharge Instructions Interventions: ED Discharge Assessment Last Done: 04/17/24 11:15 Discharge Problem: Compression fx, lumbar spine Qualifiers: Encounter type: initial encounter Lumbar vertebra fracture level: L4 Qualified Code(s): S32.040A - Wedge compression fracture of fourth lumbar vertebra, initial encounter for closed fracture
[2024-04-17 08:03] LABS: Albumin Globulin Ratio 0.9 (0.9-2); Albumin Level 3.5 gm/dl (3.4-5.0); BUN Creatinine Ratio 13.2 (10-20); Bilirubin,Total 0.3 mg/dl (0.2-1.0); Calcium 8.7 mg/dl (8.6-10.3); Creatinine Clr Calc Pharmacy 33.9 ml/min; Globulin 3.9 gm/dl (2.5-4.0); Potassium 2.5 mmol/L (3.5-5.1); Total Protein 7.4 gm/dl (6.0-8.3)
[2024-04-17 08:24] LABS: Appearance Urine Turbid (Clear); Bacteria Urine Automated 4+ (None Seen); Bilirubin Urine Negative (Negative); Blood Urine 3+ (Negative); Cast Urine Automated 0-2 /lpf (0-2); Color Urine Orange; Epithelial Cell Urine Auto 0-2 /hpf (0-2); Glucose Urine UA Negative (Negative); Ketones Urine Trace (Negative); Leukocyte Esterase Urine 3+ (Negative); Nitrite Urine Negative (Negative); Protein Urine 2+ (Negative); RBC Urine Automated >20 /hpf (0-2); Specific Gravity Urine 1.014 (1.000-1.030); Urobilinogen Urine Negative (Negative); WBC Urine Automated >50 /hpf (0-5)
--- NOTE | 2024-04-17 08:38 | CT Scan Report ---
CT OF THE ABDOMEN AND PELVIS WITHOUT CONTRAST CLINICAL HISTORY: Bilateral flank pain. COMPARISON STUDY: CT of the abdomen and pelvis April 07, 2024. TECHNIQUE: Axial images of the abdomen and pelvis were obtained without IV contrast. Images were revi ewed in the axial, sagittal, and coronal planes. Automated exposure control was utilized for the curly dy. A dose lowering technique was utilized adhering to the principles of ALARA. FINDINGS: There is been interval development of bilateral lower lobe airspace opacity, greater on the left, since CT of April 07, 2024. Multiple left renal calculi measure up to 1.3 cm. There are no ur eteral calculi. Calcifications within the right renal sinus are likely vascular in etiology. Mild lef t hydronephrosis is unchanged. This has been shown on multiple prior studies. There is gas within the bladder. Evaluation of the remainder of the abdomen and pelvis is suboptimal on this unenhanced exam . Liver, spleen, adrenal glands and pancreas are unremarkable. 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 There is no resultant bowel obstruction. A large amount of stool within the re ctum is again noted. Prominent perirectal lymph nodes are unchanged. No fluid collections are present . Old thoracolumbar spine compression fractures are present. L4 compression fracture is new since CT of April 07, 2024 with 30% loss of vertebral body height. There is no retropulsion or extension into the posterior elements. No additional acute fractures are identified. IMPRESSION: 1. Acute L4 compression fracture with 30% loss of vertebral body height. No retropulsion. Multiple ol d thoracolumbar spine compression fractures. 2. Status post left colon resection with descending colostomy with redemonstration of a large parasto mal hernia which contains multiple small and large bowel loops. No resultant bowel obstruction. 3. Left nephrolithiasis. No ureteral calculi. Mild left hydronephrosis, similar to prior exams. This could reflect a UPJ type obstruction. 4. Large amount stool within the rectum, similar to prior exam. Stable prominent indeterminate perire ctal lymph nodes. These can be assessed on follow-up exams. ACT 112: Negative or not required by law. Electronically signed by: Oh Townsend M.D. 04/17/2024 8:36 AM
[2024-04-17] MEDS: POTASSIUM CHLORIDE / WTR 10 MEQ/100 ML PLCT IV SCH (08:41)
--- NOTE | 2024-04-17 08:45 | XRay Report ---
XR lumbar spine 2-3V CLINICAL HISTORY: lumbar back pain COMPARISON STUDY: Lumbar spine radiographs May 10, 2019. Lumbar spine CT November 22, 2023. FINDINGS: Mild lumbar spine levoscoliosis is unchanged. Mild loss of height of the L4 vertebral body is new since CT of April 07, 2024. This represents an acute compression fracture. Additional old low er thoracic and lumbar spine compression fractures are unchanged since that exam. Moderate multilevel degenerative disc disease and severe facet arthrosis is present. IMPRESSION: 1. Interval development of mild L4 compression fracture with 30% loss of vertebral body height since CT of April 07, 2024. This represents an acute fracture. 2. Multiple old lower thoracic and lumbar spine compression fractures. 3. Moderate degenerative disc disease and severe facet arthrosis within the lumbar spine. 4. Mild lumbar spine levoscoliosis. ACT 112: Negative or not required by law. Electronically signed by: Oh Townsend M.D. 04/17/2024 8:44 AM
--- NOTE | 2024-04-17 09:21 | XRay Report ---
XR chest 1V portable CLINICAL HISTORY: Hx CHF COMPARISON STUDY: Chest radiograph November 27, 2023. Chest CT December 01, 2023. FINDINGS: There is no pneumothorax or pleural effusion. Cardiomegaly is unchanged. There is pulmonary vascular congestion. Underlying emphysema is present. Left basilar opacity is present. There is also minimal right basilar opacity. IMPRESSION: 1. Cardiomegaly with pulmonary vascular congestion. 2. Bibasilar opacities, greater on the left. The findings could reflect atelectasis or consolidation. 3. Emphysema. ACT 112: Negative or not required by law. Electronically signed by: Oh Townsend M.D. 04/17/2024 9:20 AM
[2024-04-17] MEDS: POTASSIUM CHLORIDE CRTAB 20 MEQ TABCR PO STA (09:36)
--- NOTE | 2024-04-17 09:44 | History & Physical Report ---
Date of Service April 17, 2024 Assessment & Plan (1) Compression fracture of L4 vertebra: (2) Age-related osteoporosis with current pathol fracture of vertebra: (3) Ambulatory dysfunction: (4) Acute hypokalemia: (5) Acute UTI (urinary tract infection): Plan This is an 84-year-old female who has a significant past medical history of chronic hypoxemic respiratory failure, COPD, ILD, FRANCIS, PAF, HTN, HLD, hyperparathyroidism, CKD stage III, lumbar DDD, senile osteoporosis, generalized osteoarthritis, fibromyalgia, macular degeneration, IBD with history of large bowel resection and Hernandez's procedure, history of tobacco use who presents to ED secondary to back pain Age-related osteoporosis with pathological fracture of L4 vertebrae Acute back pain with radiculopathy Ambulatory dysfunction admit to med/tele PT/OT consult Ortho Spine pain control ICE, scheduled APAP, lidocaine patch, pRN tramadol and prn Morphine bowel regimen Acute hypokalemia in setting of oral lasix received total of 60meq KCL in ED give additional 40meq KCL orally at 1500 and 2000 Clinical Dehydration CKD-3 -chronic, stable preserved renal function, encourage oral hydration in lieu of IVF shortage Give IVF + KCL x 1 L Possible UTI UA abnormal, pt with urgency, elevated wbc tx empirically with IV rocephin, await urine and blood culture chronic hypoxic respiratory failure on 3 L COPD FRANCIS noncompliant with CPAP does not appear to be in acute exacerbation, continue home inhalers obtain procalcitonin, patient with chronic cough that is unchanged CT findings concerning for atelectasis vs bibasilar pneumonia, feel likely more consistent with atelectasis given guarding from pain will initiate empiric doxycycline x 7 days as she is already being treated with Rocephin for UTI PAF continue xarelto, verapamil IBD Diverticulitis Colostomy in place H/o colon resection in 2019 at [facility] in [place] Has colostomy bag in place, on mesalamine CT abd/pelvis showing large amount of stool in colon ? DVT ppx: Xarelto FULL CODE PCP: Dispo: admit to med tele, consult PT/OT, may need rehab as she lives alone I spent a total of 76 minutes reviewing notes, outpatient records, labs, medication, coordinating, documenting and providing care for this patient excluding time spent in the performance of separately billed services. Pt was seen and examined in collaboration with Dr. Gaston, please see addendum History of Present Illness Chief Complaint: Back pain Primary Care Provider: Tameka Mao MD This is an 84-year-old female who has a significant past medical history of chronic hypoxemic respiratory failure, COPD, ILD, FRANCIS, PAF, HTN, HLD, hyperparathyroidism, CKD stage III, lumbar DDD, senile osteoporosis, generalized osteoarthritis, fibromyalgia, macular degeneration, IBD with history of large bowel resection and Hernandez's procedure, history of tobacco use who presents to ED secondary to back pain. Patient states her back pain started 2 weeks ago. She denies any trauma, fall or known injury. She reports pain is in her bilateral low back, left greater than right. She also has pain radiating down the posterior aspect of her left leg to her ankle. She denies any numbness or tingling or bowel or bladder incontinence. Over the last 2 weeks her pain has been worsening to the point she is having difficulty walking. She has had no relief with [id number] Tylenol. She was seen in ED 2 weeks ago with reports of, "nothing wrong." Patient currently lives alone and does have caregivers equipment 2 to 3 days a week. She also reports urinary urgency. She has had poor intake over the last few days due to inability to ambulate. She denies fever, chills, sweats, lightheadedness, dizziness, chest pain, shortness breath at rest, nausea, vomiting or abdominal pain. She does have chronic shortness of breath in setting of COPD. She also has a chronic nonproductive cough that is at baseline. She uses nebulizers twice daily. She does have history of sleep apnea but is noncompliant with CPAP. She does use oxygen 3 L chronically. Patient was hemodynamically stable in ED. Lab work notable for hypokalemia at 2.5, elevated white blood cell count of 14.8 6K and abnormal urinalysis. Lumbar spine CT revealed L4 compression fracture of 30% without r etropulsion. Allergies Allergy/AdvReac Type Severity Reaction Status Date / Time amoxicillin Allergy Intermediate Rash Verified 04/17/24 09:59 cephalexin [From Keflex] Allergy Intermediate Rash Verified 04/17/24 09:59 cilostazol [From Pletal] Allergy Intermediate Rash Verified 04/17/24 09:47 ciprofloxacin [From Cipro] Allergy Intermediate Rash Verified 04/17/24 09:47 diltiazem Allergy Intermediate Rash Verified 04/17/24 09:47 felodipine Allergy Intermediate Rash Verified 04/17/24 09:47 meloxicam Allergy Intermediate Rash Verified 04/17/24 09:47 sulfamethoxazole Allergy Intermediate Rash Verified 04/17/24 09:47 [From Bactrim] trimethoprim [From Bactrim] Allergy Intermediate Rash Verified 04/17/24 09:47 Home Medications Medication Instructions Recorded Confirmed Type calcium 500 mg (as 1 tab PO QPM 03/10/19 04/17/24 History carbonate)-vitamin D3 10 mcg (400 unit) tablet (Calcium 500 + D) ferrous sulfate 325 mg (65 mg 325 mg PO QAM 03/10/19 04/17/24 History iron) tablet vit C 250 mg-vit E 90 mg-zinc 40 1 tab PO QAM 03/10/19 04/17/24 History mg-copper 1 [id number] capsule (PreserVision AREDS-2) guaifenesin 600 mg tablet, 600 mg PO BID #60 tabs 07/16/20 04/17/24 Rx extended release 12 hr (Mucinex) ascorbic acid (vitamin C) 500 mg 500 mg PO QAM 12/08/20 04/17/24 History tablet (Vitamin C) cyclosporine 0.05 % eye drops in a 1 drp OPB BID 12/08/20 04/17/24 History dropperette (Restasis) Portable Oxygen #1 ea 03/25/21 08/28/23 Rx rivaroxaban 15 mg tablet (Xarelto) 15 mg PO QPM 11/05/21 04/17/24 History Auto Titrating CPAP #1 ea 02/03/23 08/28/23 Rx CPAP Supplies #1 ea 02/03/23 08/28/23 Rx budesonide 0.25 mg/2 mL suspension 0.25 mg (2 mL) inhalation BID #60 02/03/23 04/17/24 Rx for nebulization mL umeclidinium 62.5 mcg-vilanterol 1 inh inhalation QAM #60 ea 02/03/23 04/17/24 Rx 25 mcg/actuation powdr for inhalation (Anoro Ellipta) mesalamine 1.2 gram tablet,delayed 3.6 g PO QAM 03/14/23 04/17/24 History release acetaminophen 325 mg tablet 325 mg PO Q6H PRN PAIN/FEVER 07/25/23 04/17/24 History (Tylenol) ipratropium 0.5 mg-albuterol 3 mg 3 ml inhalation Q4H PRN Wheezing 07/25/23 04/17/24 History (2.5 mg base)/3 mL nebulization soln omega-3 fatty acids 500 mg capsule 500 mg PO QAM 07/25/23 04/17/24 History solifenacin 5 mg tablet 5 mg PO QAM 07/25/23 04/17/24 History furosemide 20 mg tablet 20 mg PO QAM 08/28/23 04/17/24 History denosumab 60 mg/mL subcutaneous 60 mg subcut UD 10/12/23 04/17/24 History syringe (Prolia) verapamil 120 mg tablet,extended 120 mg PO QAM 10/12/23 04/17/24 History release pantoprazole 40 mg tablet,delayed 40 mg PO BID #60 tabs 10/16/23 04/17/24 Rx release albuterol sulfate 90 mcg/actuation 2 puff inhalation UD PRN 04/17/24 04/17/24 History aerosol inhaler SOB/Wheezing baclofen 10 mg tablet 10 mg PO DAILY 04/17/24 04/17/24 History Past Med/Surg History Problem List (Updated 04/17/24 @ 12:46 by Brenda Reece PA-C) Age-related osteoporosis with current pathol fracture of vertebra Compression fracture of L4 vertebra Ambulatory dysfunction (Acute) Acute hypokalemia (Acute) Acute UTI (urinary tract infection) (Acute) Compression fx, lumbar spine (Acute) Hypokalemia (Acute) Anemia (Acute) Abdominal pain (Acute) Small bowel obstruction CHF (congestive heart failure) (Acute) Wheezing (Acute) Leukocytosis (Acute) Lower back pain (Acute) Acute UTI (Acute) Anemia (Acute) SOB (shortness of breath) (Acute) Acute UTI (Acute) LOPEZ (acute kidney injury) Influenza A virus subtype H1 2009 pandemic strain present (Acute) COPD with acute exacerbation (Acute) Acute respiratory failure with hypoxia (Acute) Parastomal hernia Influenza A Anemia (Acute) Physical deconditioning Acute on chronic respiratory failure Atrioventricular (AV) dissociation Third degree heart block UTI (urinary tract infection) FRANCIS (obstructive sleep apnea) Anemia (Acute) Weakness (Acute) GI (gastrointestinal bleed) (Acute) Dizziness (Acute) Weakness (Acute) FIGUEROA (dyspnea on exertion) (Acute) Vestibular neuritis Acute respiratory failure with hypoxia Colon polyp Chronic respiratory failure with hypoxia (Acute) PVD (peripheral vascular disease) PAF (paroxysmal atrial fibrillation) on xarelto/flecainide--follows with Dr. Janette Hollis CKD (chronic kidney disease), stage III (Acute) HTN (hypertension) HLD (hyperlipidemia) Multiple pulmonary nodules Tobacco dependence due to cigarettes 5 per day Chronic bronchitis Colostomy in place COPD (chronic obstructive pulmonary disease) (Acute) inhaler daily/prn, nebulizer daily/prn; continuous oxygen 3L History of creation of ostomy 10/2018 Diverticulitis Medical History Osteoarthritis Chronic back pain Diverticular disease Skin cancer of nose 1970s--unsure which kind, removed in office On anticoagulant therapy xarelto daily On home oxygen therapy 4L N/C PRN Depression Macular degeneration Surgical History History of appendectomy taken out during resection of bowel History of colonoscopy History of tooth extraction History of cataract extraction with lens replacement bilateral History of tonsillectomy History of tubal ligation History of resection of large bowel (~10/2018) perforated bowel d/t diverticulitis Family History Father Pancreatic cancer Mother Stroke Other No family history of adverse response to anesthesia Social History Smoking Status: Current every day smoker Tobacco Type: Cigarettes Age Started Using Tobacco: 22; Cigarettes Per Day: 5; Second Hand Exposure: No; Do You Dip or Chew Tobacco: No; Tobacco Cessation Education Requested by Patient: No Hx Alcohol Use: No Hx Substance Use: No Preferred Language: Setswana Communication Ability: Effective Outpatient Interviewing Clerk Required: No Beliefs That Will Affect Care: None marital status: / Current Living Situation: Alone Current Living Situation Comment: Lives home alone, family checks in often, and has home health Other Information That Helps Us Care for You: No Feels Safe at Home: Yes Assistive Devices: Glasses and Oxygen - Continuous Review of Systems Review of Systems: All systems reviewed & are unremarkable except as noted in HPI & below Physical Exam Physical Exam: Constitutional: WD/WN, vitals as above, pt in significant pain, sitting up in bed, pleasant, conversing easily Head: Normocephalic, Atraumatic Eyes: PERRL, conjunctivae normal, anicteric sclerae ENMT: external ear and nose normal, oropharynx normal Neck: trachea midline, no thyromegaly normal visual inspection Respiratory: normal respiratory effort, lungs clear to auscultation, no wheeze, rales, rhonchi. Normal insp/exp effort, no accessory muscle use Cardiovascular: RRR, no murmur, no edema Vessels: no JVD or carotid bruit Chest: normal inspection of chest Abdomen: normal bowel sounds, soft, nontender, no hepatosplenomegaly Musculoskeletal: no cyanosis or clubbing, MSK exam limited due to pain, unable to assess low back, will need to get pain under control Skin: no rashes, warm and dry normal turgor Neurologic: PERRL, EOMI, accommodation nl, no face palsy, no dysarthria CN's II-XI intact bilaterally and moves all extremities Psychiatric: A+Ox3, euthymic affect Lymphatic: no cervical or axillary lymphadenopathy :tyrese urine noted in canister Results & Data Results & Data Vital Signs (Past 12 Hours) Vital Signs Temp Pulse Pulse Resp BP BP Pulse Ox 04/17/24 09:00 77 18 160/75 H 98 04/17/24 09:00 71 18 98 04/17/24 06:35 82 04/17/24 06:30 36.9 C 82 18 153/84 H 98 O2 Del Method O2 Flow Rate 04/17/24 09:00 Nasal Cannula 4 04/17/24 09:00 Nasal Cannula 4 04/17/24 06:35 04/17/24 06:30 Room Air Laboratory Results I have independently reviewed and interpreted patient's admitting labs including CBC, CMP, UA Diagnostic Findings Abdomen/Pelvis CT 04/17/24 07:14 CT OF THE ABDOMEN AND PELVIS WITHOUT CONTRAST CLINICAL HISTORY: Bilateral flank pain. COMPARISON STUDY: CT of the abdomen and pelvis April 07, 2024. TECHNIQUE: Axial images of the abdomen and pelvis were obtained without IV contrast. Images were reviewed in the axial, sagittal, and coronal planes. Automated exposure control was utilized for the study. A dose lowering technique was utilized adhering to the principles of ALARA. FINDINGS: There is been interval development of bilateral lower lobe airspace opacity, greater on the left, since CT of April 07, 2024. Multiple left renal calculi measure up to 1.3 cm. There are no ureteral calculi. Calcifications within the right renal sinus are likely vascular in etiology. Mild left hydronephrosis is unchanged. This has been shown on multiple prior studies. There is gas within the bladder. Evaluation of the remainder of the abdomen and pelvis is suboptimal on this unenhanced exam. Liver, spleen, adrenal glands and pancreas are unremarkable. 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 There is no resultant bowel obstruction. A large amount of stool within the rectum is again noted. Prominent perirectal lymph nodes are unchanged. No fluid collections are present. Old thoracolumbar spine compression fractures are present. L4 compression fracture is new since CT of April 07, 2024 with 30% loss of vertebral body height. There is no retropulsion or extension into the posterior elements. No additional acute fractures are identified. IMPRESSION: 1. Acute L4 compression fracture with 30% loss of vertebral body height. No retropulsion. Multiple old thoracolumbar spine compression fractures. 2. 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 No resultant bowel obstruction. 3. Left nephrolithiasis. No ureteral calculi. Mild left hydronephrosis, similar to prior exams. This could reflect a UPJ type obstruction. 4. Large amount stool within the rectum, similar to prior exam. Stable prominent indeterminate perirectal lymph nodes. These can be assessed on follow-up exams. ACT 112: Negative or not required by law. Electronically signed by: Oh Townsend M.D. 04/17/2024 8:36 AM Lumbar Spine X-Ray 04/17/24 07:14 XR lumbar spine 2-3V CLINICAL HISTORY: lumbar back pain COMPARISON STUDY: Lumbar spine radiographs May 10, 2019. Lumbar spine CT November 22, 2023. FINDINGS: Mild lumbar spine levoscoliosis is unchanged. Mild loss of height of the L4 vertebral body is new since CT of April 07, 2024. This represents an acute compression fracture. Additional old lower thoracic and lumbar spine compression fractures are unchanged since that exam. Moderate multilevel degenerative disc disease and severe facet arthrosis is present. IMPRESSION: 1. Interval development of mild L4 compression fracture with 30% loss of vertebral body height since CT of April 07, 2024. This represents an acute fracture. 2. Multiple old lower thoracic and lumbar spine compression fractures. 3. Moderate degenerative disc disease and severe facet arthrosis within the lumbar spine. 4. Mild lumbar spine levoscoliosis. ACT 112: Negative or not required by law. Electronically signed by: Oh Townsend M.D. 04/17/2024 8:44 AM Chest X-Ray 04/17/24 08:43 XR chest 1V portable CLINICAL HISTORY: Hx CHF COMPARISON STUDY: Chest radiograph November 27, 2023. Chest CT December 01, 2023. FINDINGS: There is no pneumothorax or pleural effusion. Cardiomegaly is unchanged. There is pulmonary vascular congestion. Underlying emphysema is present. Left basilar opacity is present. There is also minimal right basilar opacity. IMPRESSION: 1. Cardiomegaly with pulmonary vascular congestion. 2. Bibasilar opacities, greater on the left. The findings could reflect atelectasis or consolidation. 3. Emphysema. ACT 112: Negative or not required by law. Electronically signed by: Oh Townsend M.D. 04/17/2024 9:20 AM Medications Administered Medication List Potassium Chloride (K Shoaib / Wtr) 10 meq in 100 mls @ 100 mls/hr IV Q1H [place] Stop: 04/17/24 10:14 Last Admin: 04/17/24 08:41 Dose: 100 mls/hr Documented By: KRISTI Discontinued Medications Lidocaine (Lidocaine 5% 1 Patch) 1 patch TD NOW STA Stop: 04/17/24 07:19 Last Admin: 04/17/24 07:30 Dose: 1 patch Documented By: KRISTI Oxycodone HCl (Oxycodone Hcl Ir 5 Mg Tab (Immediate Release)) 5 mg PO NOW STA Stop: 04/17/24 07:19 Last Admin: 04/17/24 07:30 Dose: 5 mg Documented By: KRISTI Potassium Chloride (Potassium Chloride Crtab 20 Meq Tabcr) 40 meq PO NOW STA Stop: 04/17/24 08:44 Last Admin: 04/17/24 09:36 Dose: 40 meq Documented By: AMS ECG Additional Comments: I have independently reviewed and interpreted patient's admitting EKG which revealed: 72 bpm qtc 332ms COVID-19 Results Results COVID-19 Adm Lab Results: RBC 4.04 M/uL (4.20-5.40) L 04/17/24 WBC 14.86 K/ul (4.8-10.8) H 04/17/24 Hgb 11.5 g/dl (12.0-16.0) L 04/17/24 Hct 36.5 % (37.0-47.0) L 04/17/24 Plt Count 344 K/uL (130-400) 04/17/24 Neutrophils (%) (Auto) 81.8 % 04/17/24 Lymphocytes (%) (Auto) 8.1 % 04/17/24 Monocytes # (Auto) 1.16 K/uL (0.11-0.59) H 04/17/24 Eosinophils # (Auto) 0.19 K/uL (0.00-0.50) 04/17/24 Immature Granulocyte % (Auto) 0.7 % 04/17/24 Neutrophils # (Auto) 12.17 K/uL (1.40-6.50) H 04/17/24 Lymphocytes # (Auto) 1.20 K/uL (1.20-3.40) 04/17/24 Monocytes # (Auto) 1.16 K/uL (0.11-0.59) H 04/17/24 Eosinophils # (Auto) 0.19 K/uL (0.00-0.50) 04/17/24 Basophils # (Auto) 0.04 K/uL (0.00-0.20) 04/17/24 Immature Granulocyte # (Auto) 0.10 K/uL (0.01-0.20) 4 Na 143 mmol/L (136-145) 04/17/24 K 2.5 mmol/L (3.5-5.1) L* 04/17/24 Cl 97 mmol/L (98-107) L 04/17/24 CO2 38 mmol/L (21-32) H 04/17/24 Anion Gap 8 (3-11) 04/17/24 BUN 14 mg/dl (6-23) 04/17/24 Creatinine 1.06 mg/dl (0.6-1.2) 04/17/24 BUN/Creatinine Ratio 13.2 (10-20) 04/17/24 Glucose Level 118 mg/dl (70-99(Fasting)) H 04/17/24 Ca 8.7 mg/dl (8.6-10.3) 04/17/24 Total Bilirubin 0.3 mg/dl (0.2-1.0) 04/17/24 AST/SGOT 10 U/L (13-39) L 04/17/24 ALT/SGPT 4 U/L (7-52) L 04/17/24 Alkaline Phosphatase 91 U/L (34-104) 04/17/24 Total Protein 7.4 gm/dl (6.0-8.3) 04/17/24 Albumin 3.5 gm/dl (3.4-5.0) 04/17/24 Globulin 3.9 gm/dl (2.5-4.0) 04/17/24 Albumin/Globulin Ratio 0.9 (0.9-2) 04/17/24 Procalcitonin 0.04 ng/ml (0-0.5) 04/17/24 Chest X-Ray 04/17/24 Code Status & VTE Plan Code Status FULL CODE VTE Prophylaxis Plan VTE Prophylaxis will be ordered: No Supervising Physician Co-Signing Physician Notes 84-year-old lady with PMH of chronic hypoxemic respiratory failure, COPD, ILD, FRANCIS, PAF, HTN, HLD, hyperparathyroidism, CKD stage III, lumbar degenerative disc disease, senile osteoporosis, generalized osteoarthritis, fibromyalgia, macular degeneration, IBD with history of large bowel resection and Hernandez's procedure, tobacco use presented to the ED with complaint of lower back pain. Next patient reports worsening lower back pain with radiation to left lower extremity for about 2 weeks associated with urinary incontinence that has been exacerbated in the last 2 weeks per patient. Patient denies fever/sore throat. Patient reports cough from her COPD at her baseline. Patient lives alone and states she has a caregiver that comes twice a week and has family members nearby. Labs reviewed: WBC elevated, procalcitonin pending, potassium 2.5, magnesium 1.7, UA suggestive of UTI. Lower back imaging with acute L4 compression fracture. Old L2 and L3 compression fractures noted. No evidence of an infectious process within the lumbar spine. Lower back pain with radicular pain to LLE: Pain management, orthospine consult, PT/OT. Bowel regimen. Hypokalemia: repleted w/ 140 meqKCL. labs in evening and AM. Possible UTI: Follow admitting cultures, continue with Rocephin. On Exam: GENERAL: Alert and oriented x3. NAD, on 3L NC O2, appear frail/weak. HEENT: No pallor, no icterus. Pupils equal, round and reactive to light. Oral mucosa moist. NECK: No JVD, no neck masses. HEART: S1 and S2 heard. Regular rate and rhythm. No murmur, no gallop. RESPIRATORY SYSTEM: Normal AP diameter. No accessory muscle use. No wheezing, no crackles. ABDOMEN: Soft, bowel sounds present, nontender, no distention. stoma and bag w/ stool noted. CENTRAL NERVOUS SYSTEM: No facial droop. Speech is clear. Obeys simple commands. Moves extremities. EXTREMITIES: trace ble edema, no erythema seen. No spinal and paraspinal tenderness noted on exam. I have seen and examined the patient and have discussed the case with the provider above. I agree with the assessment and plan as stated. Time spent: 30 min.
[2024-04-17] MEDS: cefTRIAXone SODIUM 1,000 MG/50 ML BAG IV STA (10:02)
[2024-04-17 10:09] LABS: Magnesium 1.7 mg/dl (1.7-2.4)
--- OUTSIDE RECORDS SUMMARY | 2024-04-17 10:39 | External Medical Summary | Summary of Care ---
Author Name Unknown Organization [facility] Address [address] [place] [address] Phone [phone] Care Team Providers Care Senior Program Planner Name Role Phone Tameka Leone MD Primary Care Prov ider Reason for Visit * Reason Comments eRx-Medication Refill Encounter Details Date Type Department Care Team (Late st Contact Info) Description 04/15/2024 Refill Family Medicine [address] [phone] Tameka Leone MD [address] [place] [address] [place] [id number] Allergies Active Allergy Reactions Criticality Noted Date Comments Amoxicillin Rash 02/07/2020 Bactrim Rash 12/15/2011 Ciprofloxacin Rash 12/15/2011 Diltiazem Rash 05/29/2019 Piroxicam Rash 12/15/2011 Cephalexin Rash 12/15/2011 Meloxicam Rash 05/29/2019 Other reaction(s): Other Cilostazol Rash,Unknown 12/15/2011 Sulfamethoxazole High 01/19/2023 Other Reaction(s): Rash Trimethoprim High 01/19/2023 Other Reaction(s): Rash documented as of this encounter (statuses as of 04/16/2024) Medications Medication Sig Dispensed Refills Start Date End Date Status oxygen IN GAS Use 3 L/min(Oxygen) as directed. Use with activity and sleep and at rest if 02 sat <92% Active Prolia 60 MG/ML Subcutaneous Solution Prefilled Syringe Inject 60 mg under the skin every 6 months. 1 mL 1 Active Additional Information Patient not taking.Reported on 03/21/2024 CPAP every night at bedtime. Active Compressor NebulizerIndicat ions:COPD, moderate (HCC) Inhale via nebulizer . Use as directed. 1 Each 1 2 Active Acetaminophen 325 MG Oral Tablet (Tylenol) Take 1 Tablet by mouth every 6 hours as needed for Pain, Mild, Fever >38C(100.5F), Pain, Moderate or Pain, Severe. Pt takes 1/2 tab daily 100 Tablet 5 4 Active Ostomy Supplies Convatec 2 /" 10 Each 4 Active Albuterol Sulfate HFA 108 (90 Base) MCG/ACT Inhalation Aerosol SolutionIndicati ons:COPD, moderate (HCC) INHALE 2 PUFFS BY MOUTH NEEDED FOR COUGH, SHORTNESS OF BREATH OR WHEEZING. 18 g 4 Active Anoro Ellipta 62.5-25 MCG/ACT Inhalation Aerosol Powder Breath ActivatedIndicat ions:COPD, moderate (HCC) Inhale 1 Puff by mouth daily. 1 puff daily 30 Each 4 Active Budesonide 0.25 MG/2ML Inhalation Suspension (Pulmicort)Indic ations:COPD, moderate (HCC) INHALE CONTENTS OF ONE VIAL (2ML) TWICE DAILY 60 mL 4 4 Active Calcium Carb-Cholecalcif donna 500-10 MG-MCG Oral Tablet Take 1 Tablet by mouth daily. 30 Tablet 4 Active Escitalopram Oxalate 10 MG Oral Tablet (Lexapro) Take 1 Tablet by mouth in the morning. 90 Tablet 1 4 Active Fish Oil [...] and 1 Tablet before bedtime. 60 Tablet 4 Active Ipratropium-Albu terol 0.5-2.5 (3) MG/3ML Inhalation Solution (Duoneb)Indicati ons:COPD, moderate (HCC) Inhale 3 mL via nebulizer every 4 hours as needed for Wheezing. 3ml vial in nebuilzer every four hours as needed for wheezing 3 mL 4 Active Mesalamine 1.2 GM Oral Tablet Delayed Release (Lialda)Indicati ons:IBD (inflammatory bowel disease) Take 3 Tablets by mouth in the morning. 90 Tablet 4 Active Nystatin 080668 UNIT/GM External Powder (Nystop) Apply topically to affected area 3 times a day. Apply to affected areas 60 g 1 4 Active PreserVision AREDS 2 Oral Tablet Chewable Take 1 Tablet by mouth daily. 90 Tablet 4 Active Restasis 0.05 % Ophthalmic Emulsion Instill 1 Drop into both eyes in the morning and 1 Drop before bedtime. INSTILL 1 DROP INTO EACH EYE TWICE DAILY. 60 Each 4 Active Rivaroxaban 15 MG Oral Tablet (Xarelto)Indicat ions:Chronic atrial fibrillation (HCC) Take 1 Tablet by mouth daily with dinner. 90 Tablet 1 4 Active Solifenacin Succinate 5 MG Oral Tablet (VESIcare)Indica tions:Urge incontinence,Uri nary frequency,Urinar y urgency,Mixed incontinence Take 1 Tablet by mouth in the morning. 30 Tablet 4 Active Triamcinolone Acetonide 0.5 % External Cream (Aristocort)Silvana cations:Dermatit is APPLY TO AFFECTED AREA TWICE A DAY 60 g 5 4 Active Additional Information Patient not taking.Reported on 03/21/2024 Vitamin C 500 MG Oral Tablet Chewable Take 1 Tablet by mouth in the morning. 90 Tablet 4 Active Lidocaine 5 % External Patch (Lidoderm)Indica tions:Chronic bilateral low back pain without sciatica Place 1 Patch over 12 hours topically on the skin daily. 30 Patch 5 4 Active Additional Information Patient not taking.Reported on 03/21/2024 Pantoprazole Sodium 40 MG Oral Tablet Delayed Release (Protonix)Indica tions:IBD (inflammatory bowel disease) Take 1 Tablet by mouth in the morning. 90 Tablet 2 08/21/202 4 Active Meclizine HCl 12.5 MG Oral Tablet (Antivert)Indica tions:Vertigo TAKE 1 TABLET BY MOUTH THREE TIMES A DAY, NEEDED FOR DIZZINESS 30 Tablet 1 4 Active Additional Information Patient not taking.Reported on 03/21/2024 Baclofen 10 MG Oral Tablet (Lioresal)Indica tions:Chronic bilateral low back pain without sciatica Take 1 Tablet by mouth at bedtime as needed for Pain. 5 Tablet 4 Active Verapamil HCl ER 120 MG Oral Tablet Extended Release (Isoptin SR) TAKE 1 TABLET BY MOUTH EVERY DAY IN THE MORNING 90 Tablet 1 4 Active Ferrous Sulfate 325 (65 Fe) MG Oral Tablet (Feosol) TAKE 1 TABLET BY MOUTH EVERY DAY WITH BREAKFAST 90 Tablet 1 4 Active Ferrous Sulfate 325 (65 Fe) MG Oral Tablet (Feosol) TAKE 1 TABLET BY MOUTH EVERY DAY WITH BREAKFAST 90 Tablet 1 4 04/16/20 24 Discontinued(Re fill) Verapamil HCl ER 120 MG Oral Tablet Extended Release (Isoptin SR) Take 1 Tablet by mouth in the morning. 90 Tablet 1 4 04/16/20 24 Discontinued Hospital, Clinic, or Other Facility Administered Medication Ordered Dose Route Frequency Start Date End Date Status Denosumab (Prolia) subcut inj 60 mgIndications:Senile osteoporosis 60 mg SC [id number] 10/23/2023 04/19/2024 Active documented as of this encounter (statuses as of 04/16/2024) Active Problems Problem Noted Date Diagnosed Date History of nonmelanoma skin cancer 01/08/2024 Overview: 05/22/23 Derm note "nonmelanoma skin cancer- type unknown (Jacques jackson 1972)" COPD, group D, by GOLD 2017 classification 01/07 Overview: Per COPD GOLD Classification Status post Stanislav's procedure 12/12/2023 History of cataract extraction 12/03/2023 Carpal tunnel syndrome 12/03/2023 Bilateral nonexudative age-related macular degen eration 12/03/2023 Diverticulosis 12/03/2023 Generalized osteoarthritis 12/03/2023 Internal hemorrhoids 12/03/2023 Multiple pulmonary nodules 12/03/2023 Obesity 12/03/2023 On home oxygen therapy 12/03/2023 Osteoarthritis 12/03/2023 Physical deconditioning 12/03/2023 Sensorineural hearing loss of both ears 12/03/19 Third degree heart block 12/03/2023 Tobacco dependence due to cigarettes 12/03/2023 Xerostomia 12/03/2023 Fibromyalgia 12/03/2023 History of tonsillectomy 12/03/2023 History of tooth extraction 12/03/2023 History of appendectomy 12/03/2023 Hypertensive heart and kidne y disease with [...] pleural effusion 09/06/2023 Interstitial lung disease 09/06/2023 Parastomal hernia 08/31/2023 Nephrolithiasis 08/16/2023 IBD (inflammatory bowel disease) 08/11/2023 Gastrointestinal hemorrhage associated with aubrie loretta ulcer 08/11/2023 Schatzki's ring of distal esophagus 08/11/2023 Hiatal hernia 08/11/2023 Iron deficiency anemia secondary to blood loss ( chronic) 08/11/2023 Hx of actinic keratosis 05/22/2023 Overview: Efudex (nose/upper lip 04/24) Other specified peripheral vascular diseases Hypertensive kidney disease with stage 3b chronic kidney disease 12/13/2022 Onychomycosis of toenail 09/20/2022 Pain in toes of both feet 09/20/2022 Peripheral arterial occlusive disease 09/20/2022 History of healed osteoporosis fracture 03/24/20 Overview: Vertebra Current mild episode of heidy r depressive disorder without prior episode 09/30/2021 Hypoparathyroidism 09/30/2021 Chronic hypoxemic respiratory failure [...] as of this encounter (statuses as of 04/16/2024) Resolved Problems Problem Noted Date Diagnosed Date Resolved Date Aspiration pneumonia of left lower lobe due to gastric secretions 12/18/2023 04/12/2024 Overview: History - December 2023 Hypoxemia 12/08/2023 12/13/2023 Concern about food or nutrition 12/06/2023 12/13/2023 Hypomagnesemia 12/05/2023 12/13/2023 Hypokalemia 12/03/2023 12/13/2023 Hypophosphatemia 12/03/2023 12/13/2023 Hypocalcemia 12/03/2023 12/13/2023 Colon obstruction 12/03/2023 12/13/2023 CHF (congestive heart failure) 12/03/2023 12/13/2023 Depression 12/03/2023 12/13/2023 Dizziness 12/03/2023 12/13/2023 Glossitis 12/03/2023 12/13/2023 Influenza A virus subtype H1 2009 pandemic strain present 12/03/2023 12/13/2023 Influenza A 12/03/2023 12/13/2023 Hypothyroidism 12/03/2023 12/13/2023 Mesenteric abscess 12/03/2023 Open abdominal wall wound 12/03/2023 Atrioventricular (AV) dissociation 12/03/2023 12/13/2023 Perforation of cecum 12/03/2023 024 Skin cancer of nose 12/03/2023 01/08/20 Overview: 05/22/23 Derm note "nonmelanoma skin cancer- type unknown (Jacques jackson 1972)" Vestibular neuritis 12/03/2023 12/13/[address] 12/03/2023 Painful ophthalmoplegia of left eye 12/03/2023 12/13/2023 S/P colostomy 12/03/2023 12/13/2023 History of creation of ostomy 12/03/2023 12/13/2023 Chronic bronchitis 12/03/2023 GI (gastrointestinal bleed) 12/03/2023 12/13/2023 Chronic angle-closure glaucoma 12/03/2023 12/13/2023 Diverticulitis 12/03/2023 12/13/2023 PSVT (paroxysmal supraventri cular tachycardia) 12/03/2023 12/13/2023 Colon polyp 12/03/2023 12/13/2023 On peripheral parenteral nutrition (ppn) 12/02/2023 12/13/2023 Lactic acidosis 12/02/2023 12/13/2023 Atelectasis 12/02/2023 12/13/2023 Small bowel obstruction 12/01/202312/01 Aspiration pneumonia 12/01/2023 024 Enterococcus UTI 12/01/2023 12/13/2023 LOPEZ (acute kidney injury) 11/30/2023 Anemia 11/13/2023 12/13/2023 Last Assessment & Plan: Anemia at recent [facility] admission, received 1 unit PRBC H/o bleeding gastric ulcer Continues PPI Schedule for colonoscopy and EGD 11/23 Check cbc next week COPD, group C, by GOLD 2017 classification 10/09/2023 01/11/2024 Overview: Per COPD GOLD Classification Last Assessment [...] reviewed that this should be bid routinely Sleep apnea, unspecified 08/31/202306/2024 Age-related osteoporosis wit hout current pathological fracture 08/16/2023 08/22/2023 Age-related osteoporosis wit hout current pathological fracture 08/16/2023 08/22/2023 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 08/16/1909/19/2023 Full code status 08/14/2023 12/13/2023 Other specified conduction disorders 08/11/2023 12/13/2023 Peripheral vascular disease 08/11/2023 12/13/2023 Foot callus 09/20/2022 12/13/2023 COPD, group B, by GOLD 2017 classification 08/15/2022 10/12/2023 Overview: Per COPD GOLD Classification Essential (primary) hypertension 08/12/2022 12/13/2023 Actinic keratosis 04/26/2022 05/22/2023 Prediabetes 03/15/2021 12/16/2021 [...] as of this encounter (statuses as of 04/16/2024) Immunizations Name Administration Dates Next Due COVID-19 mRNA, LNP-s, No Pre serve, 2-Dose Series (Moderna) 10/20/2020,09/15/2020 COVID-19, mRNA, LNP-s, PF, B ooster, 100mcg/0.5mg (Moderna) 06/01/2021 Pneumococcal Conjugate Vacc, 13 Valent (Prevnar) 05/16/2016,12/01/2014 Pneumococcal Polysaccharide PPV23 (Pneumovax) ,05/20/2010 TD, Preservative Free 09/01/1998 documented as of this encounter Social History Tobacco Use Types Packs/Day Years Used Date Smoking Tobacco: Former Cigarettes 0.3 60 0 09/03/2023 - 04[birth year]03/1961 Smokeless Tobacco: Never Comments:5/day currently , p [...] the money to buy more. Never true 01/11/20 24 Within the past 12 months, t he food you bought just didn't last and you didn't have money to get more. Never true 01/11/2024 Childcare Answer Date Recorded Do you feel overwhelmed with taking care of a child, family member or friend? No 01/11/2024 Does your family need help f inding childcare? (Household - for ages 0-17 years) Not on file 01/11/2024 Clothing Answer Date Recorded Have you been unable to get clothing when it was really needed? No 01/11/2024 Is your family able to get c lothes or diapers when needed? (Household - for ages 0-17 years) Not on file 01/11/2024 Personal Safety Answer Date Recorded Do you feel unsafe or have concerns for your saf ety? No 01/11/2024 Do you have concerns for you r family's safety? (Household - for ages 0-17 years) Not on file 01/11/2024 Utilities Answer Date Recorded Do you have trouble paying y our heating, water, or electric bill? No 01/11/2024 Is your family able to pay t he heat, water, or electric bill? (Household - for ages 0-17 years) Not on file 01/11/2024 Does your family have access to good internet? (Household - for ages 0-17 years) Not on file 01/11/2024 Employment Status Answer Date Recorded Are you unemployed or without regular income? No 01/11/2024 Does the household have a re lar source of income? (Household - for ages 0-17 years) Not on file 01/11/2024 Social Connections Answer Date Recorded How often do you feel lonely or isolated from th ose around you? Rarely 01/11/2024 Financial Resource Strain Answer Date R ecorded Do you have any trouble payi ng for your medications, or do you think you might in the future? No 01/11/2024 Does your family have troubl e paying for medicine? (Household - for ages 0-17 years) Not on file 01/11/2024 Transportation Needs Answer Date Record ed READ ONLY Do you have troubl e getting a ride to medical visits or work? Never True 01/11/2024 Does your family have a hard time getting a ride to doctors visits? (Household - for ages 0-17 years) Not on file 01/11/2024 Has lack of transportation k ept you from medical appointments, meetings, work, or from getting things needed for daily living? Check all that apply. No 01/11/2024 Do you (or your family) have trouble finding or paying for a ride (transportation)? (Household - for ages 0-17 years) Not on file 01/11/2024 Housing Stability Answer Date Recorded Do you currently live in a s helter or have no steady place to sleep at night? No 01/11/2024 READ ONLY Do you think you a re at risk of becoming homeless? No 01/11/2024 Does your family worry about paying for your home or becoming homeless? (Household - for ages 0-17 years) Not on file 0 01/11/2024 Are you homeless or worried that you might be in the future? No 01/11/2024 Are you (or your family) daniel eless or worried that you might be in the future? (Household - for ages 0-17 years) Not on file Food Insecurity Answer Date Recorded Do you need food for this week? No 01/11/2024 Are you able to get enough f ood for your family? (Household - for ages 0-17 years) Not on file 01/11/2024 Does your family need food t his week? (Household - for ages 0-17 years) Not on file 01/11/2024 Do you always have enough fo od for your family? (Household - for ages 0-17 years) Not on file 01/11/2024 Sex and Gender Information Value Date Recorded Sex Assigned at Female 08/11/2021 12:39 PM EST Gender Identity Female 08/11/2021 12:39 PM EST Sexual Orientation Straight 08/11/2021 12 :39 PM EST Job Start Date Occupation Industry Not on file Not on file Not on file documented as of this encounter Functional Status Functional Status Response Date of Assess ment Are you deaf or do you have serious difficulty hearing? No 12/01/2023 Are you blind or do you have serious difficulty seeing, even when wearing glasses? No 12/01/2023 Do you have serious difficul ty walking or climbing stairs? (5 years old or older) Yes-hasn't been walking for past 3 weeks. prior to that walked without device and could climb 3 steps into home. 12/01/2023 Do you have difficulty dress ing or bathing? (5 years old or older) Yes-has friend who assists with dressing and baithing at home 12/01/2023 Because of a physical, menta l, or emotional condition, do you have difficulty doing errands alone such as visiting a doctor s office or shopping? (15 years old or older) Yes 12/01/2023 Cognitive Status Response Date of Assessm ent Because of a physical, menta l, or emotional condition, do you have serious difficulty concentrating, remembering, or making decisions? (5 years old or older) No 12/01/2023 documented as of this encounter Miscellaneous Notes * Telephone Encounter - Tameka Leone MD - 04/16/2024 10:28 AM EDTSigned Prescriptions: Disp Refills Verapamil HCl ER 120 MG Oral Tablet Extend*90 Tab*1 Sig: TAKE 1 TABLET BY MOUTH EVERY DAY IN THE MORNING Authorizing Provider: TAMEKA LEONE Ferrous Sulfate 325 (65 Fe) MG Oral Tablet*90 Tab*1 Sig: TAKE 1 TABLET BY MOUTH EVERY DAY WITH BREAKFAST Authorizing Provider: TAMEKA LEONE * Telephone Encounter - Mary Lou Macdonald, STANISLAW - 04/16/2024 10:23 AM EDTPending Prescriptions: Disp Refills Verapamil HCl ER 120 MG Oral Tablet Extend*90 Tab*1 Sig: TAKE 1 TABLET BY MOUTH EVERY DAY IN THE MORNING Ferrous Sulfate 325 (65 Fe) MG Oral Tablet*90 Tab*1 Sig: TAKE 1 TABLET BY MOUTH EVERY DAY WITH BREAKFAST * Telephone Encounter - Landy Mulligan OSA - 04/16/2024 10:16 AM EDT Did you pend patient's preferred pharmacy and medication before forwarding?yes Pharmacy: [id number] Pending Prescriptions: Disp Refills Verapamil HCl ER 120 MG Oral Tablet Exten*90 Tab*1 Sig: TAKE 1 TABLET BY MOUTH EVERY DAY IN THE MORNING Ferrous Sulfate 325 (65 Fe) MG Oral Table*90 Tab*1 Sig: TAKE 1 TABLET BY MOUTH EVERY DAY WITH BREAKFAST Last Visit: 04/15/2024 (in office), Visit date not found (telemedicine) Next Visit: 05/27/2024 If no future appointments scheduled, and last appointment is greater than a year ago, please schedule patient for a follow-up appointment Last date the medication was ordered: 12/27/2023 Is this request for a controlled substance?No Urine Drug Screen:No results found for this or any previous visit. Patient Phone Numbers Labs: Lab Results Component Value Date/Time CREAT 0.9 03/25/2024 02:15 PM CREAT 1.86 (A) 09/09/2023 12:00 AM CREAT 1.3 (H) 07/27/2020 12:40 PM POTASSIUM 3.1 (L) 03/25/2024 02:15 PM POTASSIUM 3.4 (A) 09/09/2023 12:00 AM POTASSIUM 4.2 07/27/2020 12:40 PM TSH 3.07 03/25/2024 02:15 PM TSH 2.120 12/08/2020 12:00 AM TSH 2.11 02/04/2020 03:11 PM LDL 84 12/27/2022 02:11 PM LDL 61 12/21/2018 06:00 AM ALT 9 (L) 12/01/2023 11:11 PM ALT 16 02/04/2020 03:11 PM HGBA1C 6.1 (H) 02/08/2021 11:10 AM HGBA1C 4.8 12/21/2018 06:00 AM documented in this encounter Plan of Treatment Upcoming Encounters Date Type Department Care Team (Late st Contact Info) Description 04/22/2024 4:00 PM EDT [facility] [address] [id number] Madison Sharpe RN [address] [id number] 05/27/2024 2:00 PM EST Office Visit [address] [place] [phone] Tameka Leone MD [address] [place] [address] [place] [id number] 10/17/2024 3:00 PM EDT Office Visit Cardiology [address] [place] [phone] Drew Painter PA-C [address] [place] [id number] 11/06/2024 1:20 PM EDT Office Visit [address] [place] [phone] Tameka Leone MD [address] [place] [address] [place] [id number] Health Maintenance Due Date Last Done Comments Adult Wellness Visit 08/11/2023 08/11/2022, 08/11/2021, 08/10/2020 COVID-19 Vaccine ( season) 2024 06/01/2021, 10/20/2020, 09/15/2020 Influenza Vaccine (FLU shot) (#1) 2024 DXA Scan 08/01/2024 08/01/2022, 07/05, 07/07/2020, Additional history exists Depression Monitoring 08/21/2024 08/21/2023 Albumin/Creatinine Ratio 09/18/2024 024, 08/15/2022, 02/09/2021 GFR 09/22/2024 03/25/2024, 12/02, 12/22/2023, Additional history exists CKD PHOS USE SMARTSET 47538 12/11/202412/01, 12/11/2023, 12/10/2023, Additional history exists CKD HGB USE SMARTSET 13146 03/25/202503/25, 03/25/2024, 12/22/2023, Additional history exists O2 ASSESSMENT COMPLETED IN PAST YEAR FOR COPD 03/25/2025 03/25/2024 Colonoscopy 07/31/2028 07/31/2023, 07/04, 02/23/2022, Additional history exists DTap/Tdap Vaccines (2 - Td or Tdap) 08/07/2030 08/07/2020 (Not indicated), 09/01/1998 Pneumococcal Vaccine: 65+ Years Completed 05/16/2016, 12/01/2014, 12/01/2013, Additional history exists Zoster Vaccines Discontinued 12/28/2022 RETIRED - COLONOSCOPY-EVERY 5 YRS AGES 18-100 Discontinued 07/31/2023, 07/31/2023, 02/23/2022, Additional history exists VITAMIN D LEVEL ONCE IN A LIFETIME-USE SMARTSET# [id number] Completed 09/19/2023, 12/27/2022, 08/12/2022, Additional history exists Alpha-1 Antitrypsin Discontinued HPV (Gardasil) Vaccine Aged Out No lo nger eligible based on patient's age to complete this topic Hepatitis B Vaccine Aged Out No longe r eligible based on patient's age to complete this topic MENINGOCOCCAL (MENACTRA/MENVEO) Aged Out No longer eligible based on patient's age to complete this topic documented as of this encounter Medical Devices Not on filedocumented as of this encounter Advance Directives Documents on File Type Date Recorded 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 Question Answer Comments Discussion of Advance Directives occurred with: Patient Healthcare Agents on File Name Relationship Healthcare Agent Relationshi p Communication Juan Daniel Beaulieu Adult Child Health Care Repr esentative (appointed verbally by patient or by statute hierarchy) Jean Beaulieu Adult Child Health Care Repr esentative (appointed verbally by patient or by statute hierarchy) Care Teams Senior Program Planner Relationship Specialty Start Date End Date Tameka Leone MD [address] [place] [address] [place] [phone] PCP - General Family Medicine 05/29/19 documented as of this encounter
--- OUTSIDE RECORDS SUMMARY | 2024-04-17 10:39 | External Medical Summary | Summary of Care ---
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 1 mL 03/15/2021 Active Additional Information Patient not taking.Reported on 03/21/2024 CPAP every night at bedtime. Active Compressor NebulizerIndication s:COPD, moderate (HCC) Inhale via nebulizer . Use as directed. 1 Each 1 02/14/2022 Active Acetaminophen 325 MG Oral Tablet (Tylenol) Take 1 Tablet by mouth every 6 hours as needed for Pain, Mild, Fever >38C(100.5F), Pain, Moderate or Pain, Severe. Pt takes 1/2 tab daily 100 Tablet 5 09/01/2023 Active Ostomy Supplies Convatec 2 /" 10 Each 12/12/2023 Active Albuterol Sulfate HFA 108 (90 Base) MCG/ACT Inhalation Aerosol SolutionIndications :COPD, moderate (HCC) INHALE 2 PUFFS BY MOUTH NEEDED FOR COUGH, SHORTNESS OF BREATH OR WHEEZING. 18 g 12/27/2023 Active Anoro Ellipta 62.5-25 MCG/ACT Inhalation Aerosol Powder Breath ActivatedIndication s:COPD, moderate (HCC) Inhale 1 Puff by mouth daily. 1 puff daily 30 Each 12/27/2023 Active Budesonide 0.25 MG/2ML Inhalation Suspension (Pulmicort)Indicati ons:COPD, moderate (HCC) INHALE CONTENTS OF ONE VIAL (2ML) TWICE DAILY 60 mL 4 12/27/2023 Active Calcium Carb-Cholecalcifero l 500-10 MG-MCG Oral Tablet Take 1 Tablet by mouth daily. 30 Tablet 12/27/2023 Active Escitalopram Oxalate 10 MG Oral Tablet (Lexapro) Take 1 Tablet by mouth in the morning. 90 Tablet 1 12/27/2023 Active Ferrous Sulfate 325 (65 Fe) MG Oral Tablet (Feosol) TAKE 1 TABLET BY MOUTH EVERY DAY WITH BREAKFAST 90 Tablet 1 12/27/2023 Active Fish Oil 500 MG Oral Capsule Take 1 Capsule by mouth in the morning. Take by mouth.. 90 Capsule 3 12/27/2023 Active Furosemide 20 MG Oral Tablet (Lasix)Indications: Hypertensive kidney disease with stage 3b chronic kidney disease (HCC) Take 1 Tablet by mouth in the morning. for fluid accumulation or weight gain. 90 Tablet 3 12/27/2023 Active guaiFENesin ER 600 MG Oral Tablet Extended Release 12 Hour (Humibid LA) Take 1 Tablet by mouth in the morning and 1 Tablet before bedtime. 60 Tablet 12/27/2023 Active Ipratropium-Albuter ol 0.5-2.5 (3) MG/3ML Inhalation Solution (Duoneb)Indications :COPD, moderate (HCC) Inhale 3 mL via nebulizer every 4 hours as needed for Wheezing. 3ml vial in nebuilzer every four hours as needed for wheezing 3 mL 12/27/2023 Active Mesalamine 1.2 GM Oral Tablet Delayed Release (Lialda)Indications :IBD (inflammatory bowel disease) Take 3 Tablets by mouth in the morning. 90 Tablet 12/27/2023 Active Nystatin 373120 UNIT/GM External Powder (Nystop) Apply topically to affected area 3 times a day. Apply to affected areas 60 g 1 12/27/2023 Active PreserVision AREDS 2 Oral Tablet Chewable Take 1 Tablet by mouth daily. 90 Tablet 12/27/2023 Active Restasis 0.05 % Ophthalmic Emulsion Instill 1 Drop into both eyes in the morning and 1 Drop before bedtime. INSTILL 1 DROP INTO EACH EYE TWICE DAILY. 60 Each 12/27/2023 Active Rivaroxaban 15 MG Oral Tablet (Xarelto)Indication s:Chronic atrial fibrillation (HCC) Take 1 Tablet by mouth daily with dinner. 90 Tablet 1 12/27/2023 Active Solifenacin Succinate 5 MG Oral Tablet (VESIcare)Indicatio ns:Urge incontinence,Urinar y frequency,Urinary urgency,Mixed incontinence Take 1 Tablet by mouth in the morning. 30 Tablet 12/27/2023 Active Triamcinolone Acetonide 0.5 % External Cream (Aristocort)Indicat ions:Dermatitis APPLY TO AFFECTED AREA TWICE A DAY 60 g 5 12/27/2023 Active Additional Information Patient not taking.Reported on 03/21/2024 Verapamil HCl ER 120 MG Oral Tablet Extended Release (Isoptin SR) Take 1 Tablet by mouth in the morning. 90 Tablet 1 12/27/2023 Active Vitamin C 500 MG Oral Tablet Chewable Take 1 Tablet by mouth in the morning. 90 Tablet 12/27/2023 Active Lidocaine 5 % External Patch (Lidoderm)Indicatio ns:Chronic bilateral low back pain without sciatica Place 1 Patch over 12 hours topically on the skin daily. 30 Patch 5 01/08/2024 Active Additional Information Patient not taking.Reported on 03/21/2024 Pantoprazole Sodium 40 MG Oral Tablet Delayed Release (Protonix)Indicatio ns:IBD (inflammatory bowel disease) Take 1 Tablet by mouth in the morning. 90 Tablet 2 02/21/2024 Active Meclizine HCl 12.5 MG Oral Tablet (Antivert)Indicatio ns:Vertigo TAKE 1 TABLET BY MOUTH THREE TIMES A DAY, NEEDED FOR DIZZINESS 30 Tablet 1 02/20/2024 Active Additional Information Patient not taking.Reported on 03/21/2024 Hospital, Clinic, or Other Facility Administered Medication Ordered Dose Route Frequency Start Date End Date Status Denosumab (Prolia) subcut inj 60 mgIndications:Senile osteoporosis 60 mg SC [id number] 10/23/2023 04/19/2024 Active documented as of this [...] Sensorineural hearing loss of both ears 12/03/19 24 Third degree heart block 12/03/2023 Tobacco dependence [...] (Jacques jackson 1972)" Vestibular neuritis 12/03/2023 12/13/[address] 12/03/2023 Painful ophthalmoplegia of [...] Last Assessment & Plan: Anemia at recent [facility] admission, received 1 unit PRBC H/o bleeding [...] of colon without complication 08/16/19 24 09/19/2023 Full code status 08/14/2023 12/13/2023 Other specified [...] 01/11/2024 Does the household have a re gular source of income? (Household - for ages [...] encounter Miscellaneous Notes * Telephone Encounter - Melissa Murdock LPN - 04/12/2024 8:18 AM EDT Yulissa from [facility] calling, she just received additional info on prior auth for lidocaine patches that were denied 03/30. The new info still does not qualify for approval for patches. Yulissa indicates an appeal of the denied will need to be completed for approval documented in this encounter Plan of Treatment Upcoming Encounters Date Type Department Care Team (Late st Contact Info) Description 04/22/2024 4:00 PM EDT Home Visit [facility] [address] [phone] Madison Sharpe, RN [address] [place] [address] 05/27/2024 2:00 PM EST Office Visit Family Medicine [address] [phone] Tameka Hooper MD [address] [place] [address] [place] [address] 10/17/2024 3:00 PM EDT Office Visit Cardiology [address] [place] [address] Drew Painter PA-C [address] [place] [address] 11/06/2024 1:20 PM EDT Office Visit Family [address] [phone] Tameka Hooper MD [address] [place] [address] [place] [address] Health Maintenance Due Date Last Done Comments Adult Wellness Visit 08/11/2023 08/11/2022, 08/11/2021, 08/10/2020 COVID-19 Vaccine ( season) 2024 06/01/2021, 10/20/2020, 09/15/2020 Influenza Vaccine (FLU shot) (#1) 2024 DXA Scan 08/01/2024 08/01/2022, 07/05, 07/07/2020, Additional history exists Depression Monitoring 08/21/2024 08/21/2023 Albumin/Creatinine Ratio 09/18/2024 024, 08/15/2022, 02/09/2021 GFR 09/22/2024 03/25/2024, 12/02, 12/22/2023, Additional history exists CKD PHOS USE SMARTSET 37059 12/11/202412/01, 12/11/2023, 12/10/2023, Additional history exists CKD HGB USE SMARTSET 02177 03/25/202503/25, 03/25/2024, 12/22/2023, Additional history exists O2 [...] D LEVEL ONCE IN A LIFETIME-USE SMARTSET# 31806 Completed 09/19/2023, 12/27/2022, 08/12/2022, Additional history exists [...] Documents on File Type Date Recorded 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
--- OUTSIDE RECORDS SUMMARY | 2024-04-17 10:39 | External Medical Summary | Summary of Care ---
Author Name Unknown Organization [facility] Address [address] [place] [address] Phone [phone] Care Team Providers Care Title Searcher Name Role Phone Tameka Hooper MD Primary Care Prov ider Reason for Visit * Reason Comments Hospital Follow-Up Encounter Details Date Type Department Care Team (Latest Contact Info) Description 04/15/2024 2:40 PM EDT Office Visit Family Medicine [address] [address] Tameka Hooper MD [address] [place], [place] [address] [address] COPD, group D, by GOLD 2017 classification ([facility])*; Peripheral arterial occlusive disease (HCC); Internal hemorrhoids; Colostomy status ([facility]); Tobacco use disorder; Chronic bilateral low back pain without sciatica; Fall, initial encounter Allergies Active Allergy Reactions Criticality Noted Date Comments Amoxicillin Rash 02/07/2020 Bactrim Rash 12/15/2011 Ciprofloxacin Rash 12/15/2011 Diltiazem Rash 05/29/2019 Piroxicam Rash 12/15/2011 Cephalexin Rash 12/15/2011 Meloxicam Rash 05/29/2019 Other reaction(s): Other Cilostazol Rash,Unknown 12/15/2011 Sulfamethoxazole High 01/19/2023 Other Reaction(s): Rash Trimethoprim High 01/19/2023 Other Reaction(s): Rash documented as of this encounter (statuses as of 04/15/2024) Medications Medication Sig Dispensed Refills Start Date [...] 5 09/01/2023 Active Ostomy Supplies Convatec 2 3/4" 10 Each 12/12/2023 Active Albuterol Sulfate HFA [...] (3) MG/3ML Inhalation Solution (Duoneb)Indications :COPD, moderate ([facility]) Inhale 3 mL via nebulizer every 4 hours as needed for Wheezing. 3ml vial in nebuilzer every four hours as needed for wheezing 3 mL 12/27/2023 Active Mesalamine 1.2 GM Oral Tablet Delayed Release (Lialda)Indications :IBD (inflammatory bowel disease) Take 3 Tablets by mouth in the morning. 90 Tablet 12/27/2023 Active Nystatin 688226 UNIT/GM External Powder (Nystop) Apply topically to [...] on 03/21/2024 Baclofen 10 MG Oral Tablet (Lioresal)Indicatio ns:Chronic bilateral low back pain without sciatica Take 1 Tablet by mouth at bedtime as needed for Pain. 5 Tablet 04/15/2024 Active Hospital, Clinic, or Other Facility Administered Medication Ordered Dose Route Frequency Start Date End Date Status Denosumab (Prolia) subcut inj 60 mgIndications:Senile osteoporosis 60 mg SC [id number] 10/23/2023 04/19/2024 Active documented as of this encounter (statuses as of 04/15/2024) Active Problems Problem Noted Date Diagnosed Date [...] 09/20/2022 History of healed osteoporosis fracture 03/24/20 22 Overview: Vertebra Current mild episode of heidy [...] as of this encounter (statuses as of 04/15/2024) Resolved Problems Problem Noted Date Diagnosed Date [...] Assessment & Plan: Anemia at recent [facility] admission, received 1 unit PRBC H/o [...] as of this encounter (statuses as of 04/15/2024) Immunizations Name Administration Dates Next Due COVID-19 [...] Sign Reading Time Taken Comments Blood Pressure 128/64 04/15/2024 2:40 PM EDT Pulse 68 04/15/2024 2:40 PM EDT Temperature 35.6 C (96 F) 04/15/2024 2:40 PM EDT Respiratory Rate 18 04/15/2024 2:40 PM EDT Oxygen Saturation - - Inhaled Oxygen Concentration - - Weight 63.5 kg (140 lb) 04/15/2024 2:40 PM EDT Height 149.9 cm (4' 11") 04/15/2024 2:40 PM EDT Body Mass Index 28.28 04/15/2024 2:40 PM EDT documented in this encounter Functional Status Functional Status Response [...] No 12/01/2023 documented as of this encounter Progress Notes * Tameka Hooper MD - 04/15/2024 4:42 PM EDT I have discussed the patient's management with the medical trainee and agree with the note. Please refer to the documented findings and plan of care. This patient's visit today consisted of an evaluation [facility]. I was present with the resident during the history and exam and confirm the findings. Tameka Mao MD * Fernanda Olivier CRNP Student - 04/15/2024 2:48 PM EDT Subjective Eliazar Beaulieu is a 84 year old female. Chief Complaint Patient presents with Hospital Follow-Up HPI: Was in hospital on the for abdominal pain. CT abdominal pelvis showed stool in rectum but was otherwise unremarkable. Reports her abd pain has now resolved. On 04/11 patient fell in her home on left side. Her glasses bruised the bridge of her nose. Two days later she started to have pain in her left buttocks that feels like stabbing pain and shoots down her left side. She has taken tylenol and does provide relief but does not last very long. She reports small amount of stool coming from rectum. Had colostomy in 2019. She feels confident the stool is coming from her rectum and that it is stool and not blood or from the vagina. She denies chest pain, no new shortness of breath - wears 3L of Oxygen PRN but pretty much all of the time. She denies n/v. Denies new cough. No headaches. Appetite is normal. No urinary symptoms butshe does "pee a lot". She reports swollen legs that is worse than usual. . PMH: Patient Active Problem List Diagnosis 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[facility]) Macular degeneration S/P bilateral cataract extraction Colostomy status ([facility]) Paroxysmal atrial fibrillation ([facility]) H/O resection of large bowel Diverticulosis of large intestine without hemorrhage Mixed hyperlipidemia Tobacco use disorder Chronic bilateral low back pain without sciatica DDD (degenerative disc disease), lumbar Stage 3b chronic kidney disease Senile osteoporosis Current mild episode of major depressive disorder without prior episode ([facility]) Hypoparathyroidism ([facility]) Chronic hypoxemic respiratory failure ([facility]) History of healed osteoporosis fracture Hypertensive kidney disease with stage 3b chronic kidney disease ([facility]) Other specified peripheral vascular diseases ([facility]) Hx of actinic keratosis IBD (inflammatory bowel disease) Gastrointestinal hemorrhage associated with gastric ulcer Schatzki's ring of distal esophagus Hiatal hernia Nephrolithiasis Parastomal hernia Bilateral pleural effusion Interstitial lung disease ([facility]) 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 chronic kidney disease ([facility]) History of cataract extraction Carpal tunnel syndrome Bilateral nonexudative age-related macular degeneration Diverticulosis Generalized osteoarthritis Internal hemorrhoids Iron deficiency anemia secondary to blood loss (chronic) Multiple pulmonary nodules Obesity On home oxygen therapy Onychomycosis of toenail Osteoarthritis Pain in toes of both feet Peripheral arterial occlusive disease ([facility]) Physical deconditioning Sensorineural hearing loss of both ears Third degree heart block ([facility]) Tobacco dependence due to cigarettes Xerostomia Fibromyalgia History of tonsillectomy History of tooth extraction History of appendectomy Status post Stanislav's procedure ([facility]) History of nonmelanoma skin cancer COPD, group D, by GOLD 2017 classification ([facility]) Current Outpatient Medications Medication Sig Dispense Refill Baclofen 10 MG Oral Tablet (Lioresal) Take 1 Tablet by mouth at bedtime as needed for Pain. 5 Tablet 0 oxygen IN GAS Use 3 L/min(Oxygen) as directed. Use with activity and sleep and at rest if 02 sat <92% Prolia 60 MG/ML Subcutaneous Solution Prefilled Syringe Inject 60 mg under the skin every 6 months.(Patient not taking: Reported on 03/21/2024) 1 mL 0 CPAP every night at bedtime. (Patient not taking: Reported on 03/25/2024) Compressor Nebulizer Inhale via nebulizer . Use as directed. 1 Each 1 Acetaminophen 325 MG Oral Tablet (Tylenol) Take 1 Tablet by mouth every 6 hours as needed for Pain,Mild, Fever >38C(100.5F), Pain, Moderate or Pain, Severe. Pt takes 1/2 tab daily 100 Tablet 5 Ostomy Supplies Convatec 2 3/4" 10 Each 0 Albuterol Sulfate HFA 108 (90 Base) MCG/ACT [...] (2ML) TWICE DAILY 60 mL 4 Calcium Carb-Cholecalciferol 500-10 MG-MCG Oral Tablet Take 1 Tablet by mouth daily. 30 Tablet 0 Escitalopram Oxalate 10 MG Oral Tablet (Lexapro) Take 1 Tablet by mouth in the morning. 90 Tablet 1 Ferrous Sulfate 325 (65 Fe) MG Oral Tablet (Feosol) TAKE 1 TABLET BY MOUTH EVERY DAY WITH [id number] Tablet 1 Fish Oil 500 MG Oral [...] and 1 Tablet before bedtime. 60 Tablet 0 Ipratropium-Albuterol 0.5-2.5 (3) MG/3ML Inhalation Solution (Duoneb) Inhale 3 mL via nebulizer every 4 hours as needed for Wheezing. 3ml vial in nebuilzer every four hours as needed for wheezing 3 mL 0 Mesalamine 1.2 GM Oral Tablet Delayed Release (Lialda) Take 3 Tablets by mouth in the morning. 90 Tablet 0 Nystatin 714371 UNIT/GM External Powder (Nystop) Apply topically to affected area 3 times a day. Apply to affected areas 60 g 1 PreserVision AREDS 2 Oral Tablet Chewable Take 1 Tablet by mouth daily. 90 Tablet 0 Restasis 0.05 % Ophthalmic Emulsion Instill 1 Drop into both eyes in the morning and 1 Drop before bedtime. INSTILL 1 DROP INTO EACH EYE TWICE DAILY. 60 Each 0 Rivaroxaban 15 MG Oral Tablet (Xarelto) Take 1 Tablet by mouth daily with dinner. 90 Tablet 1 Solifenacin Succinate 5 MG Oral Tablet (VESIcare) Take 1 Tablet by mouth in the morning. 30 Tablet 0 Triamcinolone Acetonide 0.5 % External Cream (Aristocort) APPLY TO AFFECTED AREA TWICE A DAY (Patient not taking: Reported on 03/21/2024) 60 g 5 Verapamil HCl ER 120 MG Oral Tablet Extended Release (Isoptin SR) Take 1 Tablet by mouth in the morning. 90 Tablet 1 Vitamin C 500 MG Oral Tablet Chewable Take 1 Tablet by mouth in the morning. 90 Tablet 0 Lidocaine 5 % External Patch (Lidoderm) Place 1 Patch over 12 hours topically on the skin daily. (Patient not taking: Reported on 03/21/2024) 30 Patch 5 Pantoprazole Sodium 40 MG Oral Tablet Delayed Release (Protonix) Take 1 Tablet by mouth in the morning. 90 Tablet 2 Meclizine HCl 12.5 MG Oral Tablet (Antivert) TAKE 1 TABLET BY MOUTH THREE TIMES A DAY, NEEDED FOR DIZZINESS (Patient not taking: Reported on 03/21/2024) 30 Tablet 1 Current Facility-Administered Medications Medication Dose Route Frequency Provider Last Rate Last Admin Denosumab (Prolia) subcut inj 60 mg 60 mg Subcutaneous Q6 Months Daniel Tapia MD Review of patient's allergies indicates: Allergen Reactions Sulfamethoxazole Other Reaction(s): Rash Trimethoprim Other Reaction(s): Rash Amoxicillin Rash Bactrim Rash Ciprofloxacin Rash Diltiazem Rash Feldene [Piroxicam] Rash Keflex [Cephalexin] Rash Meloxicam Rash Other reaction(s): Other Pletal [Cilostazol] Rash and Unknown Objective BP 128/64 | Pulse 68 | Temp 35.6 C (96 F) | Resp 18 | Ht 1.499 m (4' 11") | Wt 63.5 kg (140 lb)| BMI 28.28 kg/m | BSA 1.63 m Physical Exam Cardiovascular: Rate and Rhythm: Normal rate and regular rhythm. Pulses: Normal pulses. Heart sounds: Normal heart sounds. No murmur heard. No gallop. Pulmonary: Effort: Pulmonary effort is normal. No respiratory distress. Breath sounds: Normal breath sounds. No wheezing or rales. Abdominal: General: Abdomen is flat. Bowel sounds are normal. Comments: Colostomy present, stoma beefy red, draining Genitourinary: Comments: Rectal exam confirms presence of stool in rectum Musculoskeletal: Right lower leg: Edema present. Left lower leg: Edema present. Comments: Point tenderness in left buttocks Skin: General: Skin is warm and dry. Capillary Refill: Capillary refill takes 2 to 3 seconds. Neurological: General: No focal deficit present. Mental Status: She is alert and oriented to person, place, and time. Psychiatric: Mood and Affect: Mood normal. Behavior: Behavior normal. ASSESSMENT/PLAN: COPD, group D, by GOLD 2017 classification (HCC) (Primary) Peripheral arterial occlusive disease (HCC) Internal hemorrhoids Colostomy status (HCC) Tobacco use disorder Chronic bilateral low back pain without sciatica - XR L SPINE AP AND LATERAL - Baclofen 10 MG Oral Tablet (Lioresal); Take 1 Tablet by mouth at bedtime as needed for Pain. Fall, initial encounter - XR L SPINE AP AND LATERAL Take two tablets of Lasix for three days to improve swelling in lower extremities. Reached out to GI regarding presence of stool in rectum. Requested they follow up with her for evaluation and plan. Take Baclofen as prescribed for pain management. Will reach out when imaging results are back. JULIO Shin Student documented in this encounter Nursing Notes * Mary Lou Macdonald RN - 04/15/2024 2:40 PM EDT [facility] ER 04/07/24 for abdominal pain, they felt it was old stool. Pt has a colostomy Pt also states she fell last week, her lower back started to hurt on Monday Declines vaccines documented in this encounter Plan of Treatment Upcoming Encounters Date Type Department Care Team (Late st Contact Info) Description 04/22/2024 4:00 PM EDT Home Visit [facility] [address] [facility] [place] [address] Madison Sharpe, RN [address] [place] [address] 05/27/2024 2:00 PM EST Office Visit [address] [place] [address] Tameka Hooper MD [address] [place] [address] [place] [address] 10/17/2024 3:00 PM EDT Office Visit Cardiology [address] [place] [address] Drew Painter PA-C [address] [place] [address] 11/06/2024 1:20 PM EDT Office Visit [address] [place] [address] Tameka Hooper MD [address] [place] [address] [place] [address] Pending Results Name Type Priority Associated Diagnoses Date /Time XR L SPINE AP AND LATERAL Medical Imaging Routine Chronic bilateral low back pain without sciatica Fall, initial encounter 04/15/2024 4:12 PM EDT Health Maintenance Due Date Last Done Comments Adult Wellness Visit 08/11/2023 08/11/2022, 08/11/2021, 08/10/2020 COVID-19 Vaccine ( season) 2024 06/01/2021, 10/20/2020, 09/15/2020 Influenza Vaccine (FLU shot) (#1) 2024 DXA Scan 08/01/2024 08/01/2022, 07/05, 07/07/2020, Additional history exists Depression Monitoring 08/21/2024 08/21/2023 Albumin/Creatinine Ratio 09/18/2024 024, 08/15/2022, 02/09/2021 GFR 09/22/2024 03/25/2024, 12/02, 12/22/2023, Additional history exists CKD PHOS USE SMARTSET 76963 12/11/202412/01, 12/11/2023, 12/10/2023, Additional history exists CKD HGB USE SMARTSET 76800 03/25/202503/25, 03/25/2024, 12/22/2023, Additional history exists O2 [...] D LEVEL ONCE IN A LIFETIME-USE SMARTSET# 57322 Completed 09/19/2023, 12/27/2022, 08/12/2022, Additional history exists [...] of this encounter Visit Diagnoses Diagnosis COPD, group D, by GOLD 2017 classification (HCC)- Primary 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 Internal hemorrhoids Internal hemorrhoids without mention of complication Colostomy status (HCC) Colostomy status Tobacco use disorder Chronic bilateral low back pain without sciatica Fall, initial encounter documented in this encounter Advance Directives Documents on File Type Date Recorded 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
--- NOTE | 2024-04-17 10:43 | Electrocardiogram Report ---
Test Reason : Blood Pressure : */* mmHG Vent. 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
[2024-04-17] MEDS ORDERED: POLYETHYLENE (MIRALAX) 17 GM PACK PO PRN (11:32)
[2024-04-17] MEDS ORDERED: FAMOTIDINE 20 MG TAB PO PRN (11:32)
[2024-04-17] MEDS ORDERED: ALUMINUM/MAGNESIUM SUSP 30 ML UDC PO PRN (11:32)
[2024-04-17] MEDS ORDERED: ACETAMINOPHEN 325 MG TAB PO PRN (11:32)
--- NOTE | 2024-04-17 11:33 | CT Scan Report ---
CT OF THE LUMBAR SPINE CLINICAL HISTORY: back pain, elevated WBC COMPARISON STUDY: Lumbar spine CT November 22, 2023. CT of the abdomen and pelvis April 07, 2024. TECHNIQUE: Helical axial images of the lumbar spine were obtained. Sagittal and coronal reconstruct ions were viewed. Automated exposure control was utilized for the study. A dose lowering technique was utilized adhering to the principles of ALARA. FINDINGS: Please note that the CT of the abdomen and pelvis will be reported separately. For purposes of numbering on this exam, the L5-S1 disc space is assigned to axial image 115 of 157. There is mild lumbar spine levoscoliosis. 30% loss of height of the L4 vertebral body is new since abdominal CT of April 07, 2024. There is no retropulsion. No extension into the posterior elements is noted. Subtle fracture lines are best depicted on the coronal reformatted. L2 and L3 compression fractures are unc hanged since that exam. These are chronic. Moderate multilevel facet arthrosis is present. There is a lso moderate endplate osteophytosis and mild to moderate disc space narrowing within the lumbar spine . Sacroiliac joints are intact. The central canal and neural foramen are suboptimally assessed given CT technique. IMPRESSION: 1. Acute L4 compression fracture with 30% loss of vertebral body height. This fracture is new since C T of April 07, 2024. No retropulsion. No extension into the posterior elements. 2. Old L2 and L3 compression fractures. 3. Moderate multilevel facet arthrosis and degenerative disc disease within the lumbar spine. Subopti mal evaluation of the central canal and neural foramen given CT technique. 4. No evidence for an infectious process within the lumbar spine although sensitivity is diminished g iven CT technique. ACT 112: Negative or not required by law. Electronically signed by: Oh Townsend M.D. 04/17/2024 11:31 AM
[2024-04-17] MEDS: MoRPHine SULFATE 2 MG/ML CARP IV STA (11:45)
[2024-04-17] MEDS ORDERED: traMADol HCL 50 MG TABLET PO PRN (12:27)
[2024-04-17] MEDS ORDERED: ALBUTEROL HFA 8 GM INHALER INH PRN (12:33)
[2024-04-17] MEDS: NSS + 20MEQ KCL 20 MEQ/1,000 ML BAG IV SCH (12:48)
[2024-04-17] MEDS ORDERED: ARTIFICIAL TEARS OP PRN (13:02)
[2024-04-17] MEDS: ACETAMINOPHEN 500 MG TAB PO SCH (13:14)
--- NOTE | 2024-04-17 16:00 | Orthopedic Consultation ---
Date of Service April 17, 2024 Assessment & Plan (1) Compression fracture of L4 vertebra: (2) Scoliosis of lumbar region due to degenerative disease of spine in adult: (3) Lumbar spondylosis: Plan 84-year-old female with stable appearing L4 compression fracture, degenerative lumbar scoliosis, lumbar spondylosis, neuro intact Patient is a stable fracture pattern, she may benefit from a TLSO brace for comfort however given her multiple abdominal surgeries and colostomy this may interfere with proper brace fitting. Recommend pain control, mobilization with physical therapy, no lifting greater than 10 pounds however ambulate as tolerated. She has chronic axial back pain, signs of significant degenerative changes, if difficulties with pain control he may benefit from evaluation by pain management as an outpatient to discuss possible injections. History of Present Illness Reason for Consultation: L4 Compression fracture Requesting Physician: Attending Physician: Shirley Gaston MD Patient is an 84 year old female with complex medical history, she presented to the ER this morning with back pain limiting her ambulation. She saw her pcp earlier in week and was started on muscle relaxers. She states these did not help much, her main complaint is axial back pain in lower lumbar area. Occasional pain in left leg but states that is more of annoyance compared to severe back pain.Admitted with UTI which has led to urinary urgency. Ambulates at home but currently limited by back pain, no leg weakness or numbness, no inciting trauma. Allergies Allergy/AdvReac Type Severity Reaction Status Date / Time amoxicillin Allergy Intermediate Rash Verified 04/17/24 09:59 cephalexin [From Keflex] Allergy Intermediate Rash Verified 04/17/24 09:59 cilostazol [From Pletal] Allergy Intermediate Rash Verified 04/17/24 09:47 ciprofloxacin [From Cipro] Allergy Intermediate Rash Verified 04/17/24 09:47 diltiazem Allergy Intermediate Rash Verified 04/17/24 09:47 felodipine Allergy Intermediate Rash Verified 04/17/24 09:47 meloxicam Allergy Intermediate Rash Verified 04/17/24 09:47 sulfamethoxazole Allergy Intermediate Rash Verified 04/17/24 09:47 [From Bactrim] trimethoprim [From Bactrim] Allergy Intermediate Rash Verified 04/17/24 09:47 Home Medications Medication Instructions Recorded Confirmed Type calcium 500 mg (as 1 tab PO QPM 03/10/19 04/17/24 History carbonate)-vitamin D3 10 mcg (400 unit) tablet (Calcium 500 + D) ferrous sulfate 325 mg (65 mg 325 mg PO QAM 03/10/19 04/17/24 History iron) tablet vit C 250 mg-vit E 90 mg-zinc 40 1 tab PO QAM 03/10/19 04/17/24 History mg-copper 1 kg-ehxyjx-yagjep capsule (PreserVision AREDS-2) guaifenesin 600 mg tablet, 600 mg PO BID #60 tabs 07/16/20 04/17/24 Rx extended release 12 hr (Mucinex) ascorbic acid (vitamin C) 500 mg 500 mg PO QAM 12/08/20 04/17/24 History tablet (Vitamin C) cyclosporine 0.05 % eye drops in a 1 drp OPB BID 12/08/20 04/17/24 History dropperette (Restasis) Portable Oxygen #1 ea 03/25/21 08/28/23 Rx rivaroxaban 15 mg tablet (Xarelto) 15 mg PO QPM 11/05/21 04/17/24 History Auto Titrating CPAP #1 ea 02/03/23 08/28/23 Rx CPAP Supplies #1 ea 02/03/23 08/28/23 Rx budesonide 0.25 mg/2 mL suspension 0.25 mg (2 mL) inhalation BID #60 02/03/23 04/17/24 Rx for nebulization mL umeclidinium 62.5 mcg-vilanterol 1 inh inhalation QAM #60 ea 02/03/23 04/17/24 Rx 25 mcg/actuation powdr for inhalation (Anoro Ellipta) mesalamine 1.2 gram tablet,delayed 3.6 g PO QAM 03/14/23 04/17/24 History release acetaminophen 325 mg tablet 325 mg PO Q6H PRN PAIN/FEVER 07/25/23 04/17/24 History (Tylenol) ipratropium 0.5 mg-albuterol 3 mg 3 ml inhalation Q4H PRN Wheezing 07/25/23 04/17/24 History (2.5 mg base)/3 mL nebulization soln omega-3 fatty acids 500 mg capsule 500 mg PO QAM 07/25/23 04/17/24 History solifenacin 5 mg tablet 5 mg PO QAM 07/25/23 04/17/24 History furosemide 20 mg tablet 20 mg PO QAM 08/28/23 04/17/24 History denosumab 60 mg/mL subcutaneous 60 mg subcut UD 10/12/23 04/17/24 History syringe (Prolia) verapamil 120 mg tablet,extended 120 mg PO QAM 10/12/23 04/17/24 History release pantoprazole 40 mg tablet,delayed 40 mg PO BID #60 tabs 10/16/23 04/17/24 Rx release albuterol sulfate 90 mcg/actuation 2 puff inhalation UD PRN 04/17/24 04/17/24 History aerosol inhaler SOB/Wheezing baclofen 10 mg tablet 10 mg PO DAILY 04/17/24 04/17/24 History Past Med/Surg History Problem List (Updated 04/17/24 @ 16:07 by Mauricio Blake MD) Lumbar spondylosis Scoliosis of lumbar region due to degenerative disease of spine in adult Age-related osteoporosis with current pathol fracture of vertebra Compression fracture of L4 vertebra Ambulatory dysfunction (Acute) Acute hypokalemia (Acute) Acute UTI (urinary tract infection) (Acute) Compression fx, lumbar spine (Acute) Hypokalemia (Acute) Anemia (Acute) Abdominal pain (Acute) Small bowel obstruction CHF (congestive heart failure) (Acute) Wheezing (Acute) Leukocytosis (Acute) Lower back pain (Acute) Acute UTI (Acute) Anemia (Acute) SOB (shortness of breath) (Acute) Acute UTI (Acute) LOPEZ (acute kidney injury) Influenza A virus subtype H1 2009 pandemic strain present (Acute) COPD with acute exacerbation (Acute) Acute respiratory failure with hypoxia (Acute) Parastomal hernia Influenza A Anemia (Acute) Physical deconditioning Acute on chronic respiratory failure Atrioventricular (AV) dissociation Third degree heart block UTI (urinary tract infection) FRANCIS (obstructive sleep apnea) Anemia (Acute) Weakness (Acute) GI (gastrointestinal bleed) (Acute) Dizziness (Acute) Weakness (Acute) FIGUEROA (dyspnea on exertion) (Acute) Vestibular neuritis Acute respiratory failure with hypoxia Colon polyp Chronic respiratory failure with hypoxia (Acute) PVD (peripheral vascular disease) PAF (paroxysmal atrial fibrillation) on xarelto/flecainide--follows with Dr. Savage Osteoporosis CKD (chronic kidney disease), stage III (Acute) HTN (hypertension) HLD (hyperlipidemia) Multiple pulmonary nodules Tobacco dependence due to cigarettes 5 per day Chronic bronchitis Colostomy in place COPD (chronic obstructive pulmonary disease) (Acute) inhaler daily/prn, nebulizer daily/prn; continuous oxygen 3L History of creation of ostomy 10/2018 Diverticulitis Medical History Osteoarthritis Chronic back pain Diverticular disease Skin cancer of nose 1970s--unsure which kind, removed in office On anticoagulant therapy xarelto daily On home oxygen therapy 4L N/C PRN Depression Macular degeneration Surgical History History of appendectomy taken out during resection of bowel History of colonoscopy History of tooth extraction History of cataract extraction with lens replacement bilateral History of tonsillectomy History of tubal ligation History of resection of large bowel (~10/2018) perforated bowel d/t diverticulitis Family History Father Pancreatic cancer Mother Stroke Other No family history of adverse response to anesthesia Social History Smoking Status: Current every day smoker Tobacco Type: Cigarettes Age Started Using Tobacco: 22; Cigarettes Per Day: 5; Second Hand Exposure: No; Do You Dip or Chew Tobacco: No; Tobacco Cessation Education Requested by Patient: No Hx Alcohol Use: No Hx Substance Use: No Preferred Language: Japanese Communication Ability: Effective Teenage Program Director Required: No Beliefs That Will Affect Care: None marital status: / Current Living Situation: Alone Current Living Situation Comment: Lives home alone, family checks in often, and has home health Other Information That Helps Us Care for You: No Feels Safe at Home: Yes Assistive Devices: Glasses, Nebulizer and Oxygen - Continuous Review of Systems All systems reviewed & are unremarkable except as noted in HPI & below. Physical Exam constitutional: Well developed, appears stated age Psych: patient is coherent and answers questions appropriately, normal affect Eye: Normal gaze, no redness to sclera, pupils round and equal Pulm: Normal respiratory effort, no wheezing Cardiovascular: no significant peripheral edema, palpable DP/PT pulses Skin shows no rashes, lesions midline or paraspinal tenderness lower lumbar spine Motor strength is 4/5 in bilateral hip flexors, quadriceps, limited by pain in back, 5/5 tibialis anterior, extensor hallucis longus, and gastroc/soleus complex Sensation intact to light touch in the L2-S1 dermatomes bilaterally 1+ reflexes at the achilles and patella tendons bilaterally Results & Data Results & Data Laboratory Results . Diagnostic Findings CT scan of the lumbar spine was available for review today and interpreted personally. New compression deformity of the L4 vertebral body. Significant degenerative lumbar scoliosis with degenerative changes at almost every disc level. Severe facet arthropathy from L2 to the sacrum. old appearing compression fractures in the upper lumbar spine. No bony retropulsion PG Care Time/CCT Total # of Minutes Spent Total Time Spent with Patient: Total time spent is greater than 50% in coordination of care (as documented) at patient's floor/unit and/or counseling patient: Coding Level of Care Code 48314 IN/OBS CONSULT LVL 2,35M Diagnoses Compression fracture of L4 vertebra S32.040A Scoliosis of lumbar region due to degenerative disease of spine in adult M41.56 Lumbar spondylosis M47.816
[2024-04-17] MEDS: POTASSIUM CHLORIDE CRTAB 20 MEQ TABCR PO ONE ×2 (16:16→21:17)
[2024-04-17] MEDS: RIVAROXABAN 15 MG TAB PO SCH (17:39)
[2024-04-17 18:03] LABS: Creatinine Clr Calc Pharmacy 35.9 ml/min; Potassium 3.4 mmol/L (3.5-5.1)
[2024-04-17] MEDS: MoRPHine SULFATE 2 MG/ML CARP IV PRN (18:45)
[2024-04-17] MEDS: ALBUT/IPRATROP 3MG/0.5MG NEB 3 ML VIAL NEB SCH (19:45)
[2024-04-17] MEDS: BUDESONIDE 0.25 MG/2 ML VIAL (PULMICORT) INH SCH (19:45)
[2024-04-17] MEDS ORDERED: DOCUSATE SODIUM 100 MG CAP PO SCH (21:00)
[2024-04-17] MEDS: guaiFENesin 600 MG TABCR PO SCH (21:13)
[2024-04-17] MEDS: DOXYCYCLINE HYCLATE 100 MG CAP PO SCH (21:13)
[2024-04-17] MEDS: PANTOprazole 40 MG TAB PO SCH (21:13)
[2024-04-17] MEDS: CALCIUM 600MG + VIT D 400 IU TAB PO SCH (21:14)
[2024-04-17] MEDS: DOCUSATE SODIUM/SENNA 50/8.6MG TAB PO SCH (21:18)
[2024-04-18] MEDS: NYSTATIN POWDER 15GM BTL EXT SCH (02:48)
[2024-04-18 06:51] LABS: Basophils # (auto) 0.04 K/uL (0.00-0.20); Basophils % (auto) 0.3 %; Eosinophils # (auto) 0.43 K/uL (0.00-0.50); Eosinophils % (auto) 2.7 %; Hematocrit (blood only) 33.1 % (37.0-47.0); Hemoglobin 10.5 g/dl (12.0-16.0); Immature Granulocytes # (auto) 0.13 K/uL (0.01-0.20); Immature Granulocytes % (auto) 0.8 %; Lymphocytes # (auto) 1.43 K/uL (1.20-3.40); Mean Corpuscular Hemoglobin 28.9 pg (25.0-34.0); Mean Corpuscular Hgb Conc 31.7 g/dL (32.0-36.0); Mean Corpuscular Volume 91.2 fL (80.0-100.0); Mean Platelet Volume 9.4 fL (9.4-12.4); Monocytes # (auto) 1.37 K/uL (0.11-0.59); Monocytes % (auto) 8.6 %; Neutrophils # (auto) 12.55 K/uL (1.40-6.50); Neutrophils % (auto) 78.6 %; Platelet Count 280 K/uL (130-400); RDW Coefficient of Variation 13.3 % (11.5-14.5); RDW Standard Deviation 44.9 fL (36.4-46.3); Red Blood Count 3.63 M/uL (4.20-5.40); White Blood Count 15.95 K/ul (4.8-10.8)
[2024-04-18 07:06] LABS: BUN Creatinine Ratio 11.1 (10-20); Calcium 8.6 mg/dl (8.6-10.3); Creatinine Clr Calc Pharmacy 39.9 ml/min; Potassium 3.9 mmol/L (3.5-5.1)
[2024-04-18] MEDS: FERROUS SULFATE 325 MG TAB PO SCH (07:55)
[2024-04-18] MEDS: FUROSEMIDE 20 MG TAB PO SCH (07:55)
[2024-04-18] MEDS: OMEGA-3 (PURIFIED FISH OIL) 1 GM CAP PO SCH (07:55)
[2024-04-18] MEDS: BACLOFEN 10 MG TAB PO SCH (07:55)
[2024-04-18] MEDS: ADVANCED PROBIOTIC 625 MG CAPSULE PO SCH (07:55)
[2024-04-18] MEDS: ASCORBIC ACID 500 MG TAB PO SCH (07:55)
[2024-04-18] MEDS: VERAPAMIL HCL 120 MG TABCR PO SCH (07:56)
[2024-04-18] MEDS: CEROVITE ADV FORMULA TAB PO SCH (07:56)
[2024-04-18] MEDS: LIDOCAINE 5% 1 PATCH TD SCH (07:56)
[2024-04-18] MEDS: OXYBUTYNIN CHLORIDE XL 5 MG TABCR PO SCH (07:56)
[2024-04-18] MEDS: UMECLIDINIUM/VILANTEROL 62.5/25MCG 7 PUFFS/INHALER INH SCH (07:56)
[2024-04-18] MEDS: cefTRIAXone SODIUM 1,000 MG/50 ML BAG IV SCH (07:57)
[2024-04-18] MEDS ORDERED: hydrALAZINE 10 MG TAB PO PRN (08:06)
[2024-04-18] MEDS: LINEZOLID 600 MG TAB PO SCH (09:21)
[2024-04-18] MEDS: MoRPHine SULFATE 2 MG/ML CARP IV PRN (11:28)
--- NOTE | 2024-04-18 14:07 | Hospitalist Progress Note ---
Date of Service April 18, 2024 Assessment & Plan (1) Compression fracture of L4 vertebra: (2) Age-related osteoporosis with current pathol fracture of vertebra: (3) Ambulatory dysfunction: (4) Acute hypokalemia: (5) Acute UTI (urinary tract infection): Plan Patient is an 84 yr female who has a significant past medical history of chronic hypoxemic respiratory failure, COPD, ILD, FRANCIS, PAF, HTN, HLD, hyperparathyroidism, CKD stage III, lumbar DDD, senile osteoporosis, generalized osteoarthritis, fibromyalgia, macular degeneration, IBD with history of large bowel resection and Hernandez's procedure, history of tobacco use who presents to ED secondary to back pain Age-related osteoporosis with pathological fracture of L4 vertebrae Acute back pain with radiculopathy Ambulatory dysfunction --Lumbar CT:Acute L4 compression fracture with 30% loss of vertebral body height. This fracture is new since CT of April 07, 2024. No retropulsion. No extension into the posterior elements. Old L2 and L3 compression fractures. Moderate multilevel facet arthrosis and degenerative disc disease within the lumbar spine. Suboptimal evaluation of the central canal and neural foramen given CT technique. No evidence for an infectious process within the lumbar spine although sensitivity is diminished given CT technique. -No history of fall, trauma --May benefit from TLSO brace but given abdominal surgeries/colostomy difficult for fitting the brace Pain control, PT OT, fall precautions Appreciate orthopedics input May need outpatient pain management for possible injections Bowel regimen to prevent constipation Abnormal urinalysis Possible UTI Urine culture not contributory Blood culture pending Empirically on Zyvox, Rocephin based on prior cultures Hypokalemia Monitor and replete electrolytes as needed Dehydration CKD-3 -chronic, stable preserved renal function, encourage oral hydration in lieu of IVF shortage Received IV fluids Chronic hypoxic respiratory failure on 3 L COPD FRANCIS noncompliant with CPAP Normal procalcitonin No signs of acute exacerbation continue home inhalers Continue supplemental oxygen to maintain saturations 88 to 92% PAF continue xarelto, verapamil IBD Diverticulitis Colostomy in place H/o colon resection in 2019 at [facility] in [place] Has colostomy bag in place, on mesalamine Continue bowel regimen to prevent constipation DVT Px: Xarelto CODE STATUS FULL CODE Disposition PT OT prior to discharge Admission and Anticipated Discharge Date Admission Date: April 17, 2024 Subjective Patient is seen and examined at bedside States having lower back pain Also reports an episode of nausea, vomiting earlier today Back pain radiates down left lower extremity Admits to have dysuria intermittently No other complaints Review of Systems Review of Systems: All systems reviewed & are unremarkable except as noted in Subjective Physical Exam Physical Exam: Physical Exam: Vitals signs as noted above General Appearance:Moderately built and nourished, Frail, elderly, no apparent distress Head: normocephalic, Atraumatic Eyes: normal inspection, EOMI Neck: supple, Trachea midline Respiratory/Chest: Decreased breath sounds, CTA, No accessory muscle use Cardiovascular: S1, S2, No murmur Abdomen/GI:Soft, Non tender, Bowel sounds present, +Ostomy Extremities/Musculoskeletal:normal inspection, Trace edema Neurologic/Psych:AAOX3, grossly no focal neurological deficits Skin: normal color, warm Results & Data Results & Data Vital Signs (Past 12 Hours) Vital Signs Temp Pulse Pulse Resp BP Pulse Ox O2 Del Method 04/18/24 11:06 37.0 C 82 20 174/63 H 91 Nasal Cannula 04/18/24 08:55 76 04/18/24 07:42 37.3 C 84 20 173/71 H 91 Nasal Cannula 04/18/24 07:41 Nasal Cannula 04/18/24 06:57 100 H 18 92 Nasal Cannula 04/18/24 03:16 37.4 C 82 20 175/74 H 92 Nasal Cannula O2 Flow Rate 04/18/24 11:06 4 04/18/24 08:55 04/18/24 07:42 4 04/18/24 07:41 4 04/18/24 06:57 3 04/18/24 03:16 3 Laboratory Results Short CBC 04/18/24 Range/Units 06:09 WBC 15.95 H (4.8-10.8) K/ul Hgb 10.5 L (12.0-16.0) g/dl Hct 33.1 L (37.0-47.0) % Plt Count 280 (130-400) K/uL BMP 04/17/24 04/18/24 17:23 06:09 Sodium 141 142 Potassium 3.4 L D 3.9 Chloride 102 105 Carbon Dioxide 35 H 34 H BUN 13 10 Creatinine 1.00 0.90 Glucose 115 H 114 H Calcium 8.0 L 8.6
[2024-04-19] MEDS: ONDANSETRON INJ 2 MG/ML 2 ML VIAL IV PRN (05:55)
[2024-04-19 08:12] LABS: Hematocrit (blood only) 35.8 % (37.0-47.0); Hemoglobin 10.7 g/dl (12.0-16.0); Mean Corpuscular Hemoglobin 28.2 pg (25.0-34.0); Mean Corpuscular Hgb Conc 29.9 g/dL (32.0-36.0); Mean Corpuscular Volume 94.2 fL (80.0-100.0); Mean Platelet Volume 9.8 fL (9.4-12.4); Platelet Count 291 K/uL (130-400); RDW Coefficient of Variation 13.4 % (11.5-14.5); RDW Standard Deviation 46.5 fL (36.4-46.3); White Blood Count 14.42 K/ul (4.8-10.8)
[2024-04-19 08:30] LABS: Anion Gap 6 (3-11); BUN Creatinine Ratio 13.8 (10-20); Blood Urea Nitrogen 17 mg/dl (6-23); Calcium 9.1 mg/dl (8.6-10.3); Carbon Dioxide 33 mmol/L (21-32); Chloride 102 mmol/L (98-107); Creatinine Clr Calc Pharmacy 29.2 ml/min; Glucose 119 mg/dl (70-99(Fasting)); Magnesium 1.6 mg/dl (1.7-2.4); Sodium 141 mmol/L (136-145)
[2024-04-19] MEDS: MELATONIN 3 MG TAB PO PRN (08:52)
[2024-04-19] MEDS ORDERED: MAGNESIUM CHLORIDE W/CALCIUM 64MG DELAYED REL TAB PO SCH (10:00)
[2024-04-19] MEDS: MAGNESIUM OXIDE 400 MG TAB PO SCH (12:03)
--- NOTE | 2024-04-19 17:19 | Hospitalist Progress Note ---
Date of Service April 19, 2024 Assessment & Plan (1) Compression fracture of L4 vertebra: (2) Age-related osteoporosis with current pathol fracture of vertebra: (3) Ambulatory dysfunction: (4) Acute hypokalemia: (5) Acute UTI (urinary tract infection): Plan Patient is an 84 yr female who has a significant past medical history of chronic hypoxemic respiratory failure, COPD, ILD, FRANCIS, PAF, HTN, HLD, hyperparathyroidism, CKD stage III, lumbar DDD, senile osteoporosis, generalized osteoarthritis, fibromyalgia, macular degeneration, IBD with history of large bowel resection and Hernandez's procedure, history of tobacco use who presents to ED secondary to back pain Age-related osteoporosis with pathological fracture of L4 vertebrae Acute back pain with radiculopathy Ambulatory dysfunction --Lumbar CT:Acute L4 compression fracture with 30% loss of vertebral body height. This fracture is new since CT of April 07, 2024. No retropulsion. No extension into the posterior elements. Old L2 and L3 compression fractures. Moderate multilevel facet arthrosis and degenerative disc disease within the lumbar spine. Suboptimal evaluation of the central canal and neural foramen given CT technique. No evidence for an infectious process within the lumbar spine although sensitivity is diminished given CT technique. -No history of fall, trauma --May benefit from TLSO brace but given abdominal surgeries/colostomy difficult for fitting the brace Pain control, PT OT, fall precautions Appreciate orthopedics input May need outpatient pain management for possible injections Bowel regimen to prevent constipation Plan to discharge to rehab facility when accepted Abnormal urinalysis Possible UTI Urine culture not contributory Blood culture no growth to date Empirically on Zyvox, Rocephin based on prior cultures We will discontinue after 5-day course of antibiotics Hypokalemia Monitor and replete electrolytes as needed Dehydration CKD-3 -chronic, stable preserved renal function, encourage oral hydration in lieu of IVF shortage Received IV fluids Chronic hypoxic respiratory failure on 3 L COPD FRANCIS noncompliant with CPAP Normal procalcitonin No signs of acute exacerbation continue home inhalers Continue supplemental oxygen to maintain saturations 88 to 92% PAF continue Xarelto, verapamil Chronic diastolic heart failure Monitor volume status Continue home diuretics IBD Diverticulitis Colostomy in place H/o colon resection in 2019 at [facility] in [place] Has colostomy bag in place, on mesalamine Continue bowel regimen to prevent constipation DVT Px: Xarelto CODE STATUS FULL CODE Disposition Rehab when accepted Admission and Anticipated Discharge Date Admission Date: April 17, 2024 Subjective Patient is seen and examined at bedside States her back pain is about the same as yesterday Also reports nausea but no vomiting today Sitting in chair during my encounter Denies any chest pain, dyspnea, abdominal pain No other complaints Review of Systems Review of Systems: All systems reviewed & are unremarkable except as noted in Subjective Physical Exam Physical Exam: Physical Exam: Vitals signs as noted above General Appearance:Moderately built and nourished, Frail, elderly, no apparent distress Head: normocephalic, Atraumatic Eyes: normal inspection, EOMI Neck: supple, Trachea midline Respiratory/Chest: Decreased breath sounds, CTA, No accessory muscle use Cardiovascular: S1, S2, No murmur Abdomen/GI:Soft, Non tender, Bowel sounds present, +Ostomy Extremities/Musculoskeletal:normal inspection, Trace edema Neurologic/Psych:AAOX3, grossly no focal neurological deficits Skin: normal color, warm Results & Data Results & Data Vital Signs (Past 12 Hours) Vital Signs Temp Pulse Pulse Resp BP BP Pulse Ox 04/19/24 15:38 36.7 C 66 18 110/68 96 04/19/24 13:29 66 04/19/24 11:40 36.4 C L 79 18 101/64 99 04/19/24 08:19 85 04/19/24 08:00 04/19/24 07:51 36.6 C 94 H 18 116/69 95 04/19/24 06:58 84 16 97 O2 Del Method O2 Flow Rate 04/19/24 15:38 Room Air 04/19/24 13:29 04/19/24 11:40 Room Air 04/19/24 08:19 04/19/24 08:00 Nasal Cannula 3 04/19/24 07:51 Nasal Cannula 3 04/19/24 06:58 Nasal Cannula 3 Laboratory Results Short CBC 04/19/24 Range/Units 06:48 WBC 14.42 H (4.8-10.8) K/ul Hgb 10.7 L (12.0-16.0) g/dl Hct 35.8 L (37.0-47.0) % Plt Count 291 (130-400) K/uL BMP 04/19/24 04/19/24 06:48 08:38 Sodium 141 Potassium TNP 4.5 Chloride 102 Carbon Dioxide 33 H BUN 17 Creatinine 1.23 H D Glucose 119 H Calcium 9.1
[2024-04-20 06:10] LABS: Hematocrit (blood only) 35.7 % (37.0-47.0); Hemoglobin 10.5 g/dl (12.0-16.0); Mean Corpuscular Hemoglobin 27.9 pg (25.0-34.0); Mean Corpuscular Hgb Conc 29.4 g/dL (32.0-36.0); Mean Corpuscular Volume 94.9 fL (80.0-100.0); Mean Platelet Volume 9.6 fL (9.4-12.4); Platelet Count 276 K/uL (130-400); RDW Coefficient of Variation 13.2 % (11.5-14.5); RDW Standard Deviation 45.9 fL (36.4-46.3); Red Blood Count 3.76 M/uL (4.20-5.40); White Blood Count 8.69 K/ul (4.8-10.8)
[2024-04-20 06:17] LABS: BUN Creatinine Ratio 14.8 (10-20); Calcium 9.2 mg/dl (8.6-10.3); Creatinine Clr Calc Pharmacy 26.6 ml/min
--- NOTE | 2024-04-20 15:28 | Hospitalist Progress Note ---
Date of Service April 20, 2024 Assessment & Plan (1) Compression fracture of L4 vertebra: (2) Age-related osteoporosis with current pathol fracture of vertebra: (3) Ambulatory dysfunction: (4) Acute hypokalemia: (5) Acute UTI (urinary tract infection): Plan Patient is an 84 yr female who has a significant past medical history of chronic hypoxemic respiratory failure, COPD, ILD, FRANCIS, PAF, HTN, HLD, hyperparathyroidism, CKD stage III, lumbar DDD, senile osteoporosis, generalized osteoarthritis, fibromyalgia, macular degeneration, IBD with history of large bowel resection and Hernandez's procedure, history of tobacco use who presents to ED secondary to back pain Age-related osteoporosis with pathological fracture of L4 vertebrae Acute back pain with radiculopathy Ambulatory dysfunction --Lumbar CT:Acute L4 compression fracture with 30% loss of vertebral body height. This fracture is new since CT of April 07, 2024. No retropulsion. No extension into the posterior elements. Old L2 and L3 compression fractures. Moderate multilevel facet arthrosis and degenerative disc disease within the lumbar spine. Suboptimal evaluation of the central canal and neural foramen given CT technique. No evidence for an infectious process within the lumbar spine although sensitivity is diminished given CT technique. -No history of fall, trauma --Stable fracture pattern per Ortho --May benefit from TLSO brace but given abdominal surgeries/colostomy difficult for fitting the brace Pain control, PT OT, fall precautions Appreciate orthopedics input May need outpatient pain management for possible injections Bowel regimen to prevent constipation Plan to discharge to rehab facility when accepted Abnormal urinalysis Possible UTI Urine culture not contributory Blood culture no growth to date Empirically on Zyvox, Rocephin based on prior cultures Continue current management Hypokalemia Monitor and replete electrolytes as needed Dehydration CKD-3 -chronic, stable preserved renal function, encourage oral hydration in lieu of IVF shortage Received IV fluids Chronic hypoxic respiratory failure on 3 L COPD FRANCIS noncompliant with CPAP Normal procalcitonin No signs of acute exacerbation continue home inhalers Continue supplemental oxygen to maintain saturations 88 to 92% PAF continue Xarelto, verapamil Chronic diastolic heart failure Monitor volume status Continue home diuretics IBD Diverticulitis Colostomy in place H/o colon resection in 2019 at [facility] in [place] Has colostomy bag in place, on mesalamine Continue bowel regimen to prevent constipation DVT Px: Xarelto CODE STATUS FULL CODE Disposition Rehab when accepted Case management to help with discharge planning Admission and Anticipated Discharge Date Admission Date: April 17, 2024 Subjective Patient is seen and examined at bedside No new complaints Still having back pain Denies any chest pain, dyspnea, abdominal pain Waiting for rehab placement Leukocytosis resolved Review of Systems Review of Systems: All systems reviewed & are unremarkable except as noted in Subjective Physical Exam Physical Exam: Physical Exam: Vitals signs as noted above General Appearance:Moderately built and nourished, Frail, elderly, no apparent distress Head: normocephalic, Atraumatic Eyes: normal inspection, EOMI Neck: supple, Trachea midline Respiratory/Chest: Decreased breath sounds, CTA, No accessory muscle use Cardiovascular: S1, S2, No murmur Abdomen/GI:Soft, Non tender, Bowel sounds present, +Ostomy Extremities/Musculoskeletal:normal inspection, Trace edema Neurologic/Psych:AAOX3, grossly no focal neurological deficits Skin: normal color, warm Results & Data Results & Data Vital Signs (Past 12 Hours) Vital Signs Temp Pulse Pulse Resp BP BP Pulse Ox 04/20/24 14:55 75 04/20/24 11:55 36.3 C L 65 18 120/61 98 04/20/24 08:00 04/20/24 07:40 36.6 C 75 18 127/65 97 04/20/24 07:23 74 17 97 04/20/24 07:00 67 O2 Del Method O2 Flow Rate 04/20/24 14:55 04/20/24 11:55 Room Air 04/20/24 08:00 Nasal Cannula 4 04/20/24 07:40 Nasal Cannula 3 04/20/24 07:23 Nasal Cannula 3 04/20/24 07:00 Laboratory Results Short CBC 04/20/24 Range/Units 05:40 WBC 8.69 (4.8-10.8) K/ul Hgb 10.5 L (12.0-16.0) g/dl Hct 35.7 L (37.0-47.0) % Plt Count 276 (130-400) K/uL BMP 04/20/24 05:40 Sodium 141 Potassium 4.0 Chloride 102 Carbon Dioxide 34 H BUN 20 Creatinine 1.35 H Glucose 105 H Calcium 9.2
--- NOTE | 2024-04-20 22:46 | Communication Note ---
Date of Service: April 20, 2024 Patient family concerned regarding patient's forgetfulness. Patient does not seem like herself as per son. BSG 118 CT head No acute intracranial hemorrhage. No midline shift or mass effect. serum crea 1.36 from 1.06 (04/17) AP Encephalopathy ARF Baclofen possibly contributory UA Monitor creatinine response to IV albumin Hold baclofen for now
[2024-04-20] MEDS ORDERED: MoRPHine SULFATE 4 MG/ML 1 ML CARP\\VIAL IV PRN (22:52)
[2024-04-20] MEDS: ALBUMIN 25% 12.5 GM/50 ML VIAL IV ONE (23:30)
[2024-04-20 23:37] LABS: HCO3 VBG 35 mmol/L; Oxygen Saturation VBG < 60.0 %; PCO2 VBG 61 mmHg (38-50); PO2 VBG 33 mmHg; pH VBG 7.36 (7.36-7.41)
[2024-04-21] LABS: BUN Creatinine Ratio 15.4 (10-20); Calcium 9.1 mg/dl (8.6-10.3); Creatinine Clr Calc Pharmacy 26.4 ml/min; Potassium 3.9 mmol/L (3.5-5.1)
--- NOTE | 2024-04-21 03:24 | CT Scan Report ---
Exam(s): CT HEAD Without Contrast EXAM: CT Head Without Intravenous Contrast CLINICAL HISTORY: Reason for exam: ams, noac. TECHNIQUE: Axial computed tomography images of the head/brain without intravenous contrast. CTDI is 37.08 mGy and DLP is 547.75 mGy-cm. Automated exposure control was utilized for the study. A dose lowering technique was utilized adhering to the principles of ALARA. COMPARISON: No relevant prior studies available. FINDINGS: Brain: Age-related cerebral volume loss. Periventricular and subcortical white matter hypoattenuation, consistent with chronic microangiopathy. No acute intracranial hemorrhage. No midline shift or mass effect. Ventricles: Unremarkable. No ventriculomegaly. Bones/joints: Unremarkable. No acute fracture. Soft tissues: Unremarkable. Sinuses: Unremarkable as visualized. No acute sinusitis. Mastoid air cells: Unremarkable as visualized. No mastoid effusion. IMPRESSION: No acute intracranial hemorrhage. No midline shift or mass effect. Electronically signed by: Tato Tapia MD 04/21/24 03:22 AM
[2024-04-21] MEDS: VERAPAMIL HCL 120 MG TABCR PO STA (03:44)
[2024-04-21 07:03] LABS: BUN Creatinine Ratio 15.5 (10-20); Calcium 9.4 mg/dl (8.6-10.3)
[2024-04-21] MEDS: GADOBUTROL 30ML VIAL IV ONE (11:56)
--- NOTE | 2024-04-21 12:25 | Magnetic Resonance Report ---
MR brain wo/w con CLINICAL HISTORY: Blurry vision 2 weeks, confusion TECHNIQUE: Multiplanar and multisequence MR images of the brain were obtained prior to and following administration of gadolinium contrast. Comparison: Comparison is made to MRI brain 12/09/2020 FINDINGS: No abnormal restricted diffusion is identified. Foci of T2 and FLAIR hyperintensity are noted in the paraventricular areas consistent with chronic small vessel ischemic disease. Ex vacuo ventriculomegal y and sulcal enlargement is noted compatible with diffuse volume loss. Focal encephalomalacia in the left lentiform nucleus likely represents a prior infarct. No mass or abnormal enhancement is seen. Th ere is no mass effect or midline shift. There is no evidence of acute intraparenchymal hemorrhage. No extra axial fluid collections are seen. The corpus callosum, pituitary gland, and cerebellar tonsils appear grossly unremarkable. Flow voids of the major intracranial arterial vessels are identified. The imaged portions of the para nasal sinuses, mastoid air cells, and orbits are unremarkable. IMPRESSION: No acute abnormality and in particular no evidence of acute infarct. ACT 112: Negative or not required by law. Electronically signed by: Yoel Elena M.D. 04/21/2024 12:24 PM
--- NOTE | 2024-04-21 14:23 | Hospitalist Progress Note ---
Date of Service April 21, 2024 Assessment & Plan (1) Compression fracture of L4 vertebra: (2) Age-related osteoporosis with current pathol fracture of vertebra: (3) Ambulatory dysfunction: (4) Acute hypokalemia: (5) Acute UTI (urinary tract infection): Plan Patient is an 84 yr female who has a significant past medical history of chronic hypoxemic respiratory failure, COPD, ILD, FRANCIS, PAF, HTN, HLD, hyperparathyroidism, CKD stage III, lumbar DDD, senile osteoporosis, generalized osteoarthritis, fibromyalgia, macular degeneration, IBD with history of large bowel resection and Hernandez's procedure, history of tobacco use who presents to ED secondary to back pain Age-related osteoporosis with pathological fracture of L4 vertebrae Acute back pain with radiculopathy Ambulatory dysfunction --Lumbar CT:Acute L4 compression fracture with 30% loss of vertebral body height. This fracture is new since CT of April 07, 2024. No retropulsion. No extension into the posterior elements. Old L2 and L3 compression fractures. Moderate multilevel facet arthrosis and degenerative disc disease within the lumbar spine. Suboptimal evaluation of the central canal and neural foramen given CT technique. No evidence for an infectious process within the lumbar spine although sensitivity is diminished given CT technique. -No history of fall, trauma --Stable fracture pattern per Ortho --May benefit from TLSO brace but given abdominal surgeries/colostomy difficult for fitting the brace Pain control, PT OT, fall precautions Appreciate orthopedics input May need outpatient pain management for possible injections Bowel regimen to prevent constipation Waiting for rehab placement Abnormal urinalysis Possible UTI Urine culture not contributory Blood culture no growth to date Empirically on Zyvox, Rocephin based on prior cultures Continue current management Acute metabolic encephalopathy Likely multifactorial--delirium, baclofen use Was recently started on baclofen per family On going blurry vision --MRI brain:No acute abnormality and in particular no evidence of acute infarct. Hold sedating medications Baclofen discontinued Reorient frequently Needs follow-up with ophthalmology as outpatient Hypokalemia Monitor and replete electrolytes as needed Dehydration CKD-3 -chronic, stable IV fluids as needed Monitor renal function Chronic hypoxic respiratory failure on 3 L COPD FRANCIS noncompliant with CPAP Normal procalcitonin No signs of acute exacerbation continue home inhalers Continue supplemental oxygen to maintain saturations 88 to 92% PAF continue Xarelto, verapamil Chronic diastolic heart failure Monitor volume status Resume home diuretics as able IBD Diverticulitis Colostomy in place H/o colon resection in [address] [facility] in [place] Has colostomy bag in place, on mesalamine Continue bowel regimen to prevent constipation DVT Px: Xarelto CODE STATUS FULL CODE Disposition Rehab when accepted Case management to help with discharge planning Admission and Anticipated Discharge Date Admission Date: April 17, 2024 Subjective Patient is seen and examined at bedside Reports having back pain Also reports having blurry vision which has been ongoing for more than 2 weeks Patient's son concerned about change in mental status Updated patient's son in detail over the phone No other complaints today Denies any chest pain, dyspnea, abdominal pain, nausea, dizziness Review of Systems Review of Systems: All systems reviewed & are unremarkable except as noted in Subjective Physical Exam Physical Exam: Physical Exam: Vitals signs as noted above General Appearance:Moderately built and nourished, Frail, elderly, no apparent distress Head: normocephalic, Atraumatic Eyes: normal inspection, EOMI Neck: supple, Trachea midline Respiratory/Chest: Decreased breath sounds, CTA, No accessory muscle use Cardiovascular: S1, S2, No murmur Abdomen/GI:Soft, Non tender, Bowel sounds present, +Ostomy Extremities/Musculoskeletal:normal inspection, Trace edema Neurologic/Psych:AAOX3, grossly no focal neurological deficits Skin: normal color, warm Results & Data Results & Data Vital Signs (Past 12 Hours) Vital Signs Temp Pulse Pulse Resp BP BP Pulse Ox 04/21/24 12:05 36.6 C 80 20 162/65 H 95 04/21/24 11:35 04/21/24 11:34 75 04/21/24 07:42 36.6 C 76 20 154/66 H 91 04/21/24 07:11 71 17 94 04/21/24 03:21 36.2 C L 81 18 168/75 H 93 O2 Del Method O2 Flow Rate 04/21/24 12:05 Nasal Cannula 3 04/21/24 11:35 Nasal Cannula 3 04/21/24 11:34 04/21/24 07:42 Nasal Cannula 3 04/21/24 07:11 Nasal Cannula 3 04/21/24 03:21 Nasal Cannula 3 Laboratory Results BMP 04/20/24 04/21/24 23:29 06:10 Sodium 139 142 Potassium 3.9 4.0 Chloride 101 103 Carbon Dioxide 31 34 H BUN 21 18 Creatinine 1.36 H 1.16 Glucose 118 H 109 H Calcium 9.1 9.4
[2024-04-22 06:54] LABS: Hematocrit (blood only) 35.4 % (37.0-47.0); Hemoglobin 10.5 g/dl (12.0-16.0); Mean Corpuscular Hemoglobin 27.9 pg (25.0-34.0); Mean Corpuscular Hgb Conc 29.7 g/dL (32.0-36.0); Mean Corpuscular Volume 93.9 fL (80.0-100.0); Mean Platelet Volume 9.5 fL (9.4-12.4); Platelet Count 285 K/uL (130-400); RDW Coefficient of Variation 13.2 % (11.5-14.5); RDW Standard Deviation 45.2 fL (36.4-46.3); Red Blood Count 3.77 M/uL (4.20-5.40); White Blood Count 8.76 K/ul (4.8-10.8)
[2024-04-22 07:18] LABS: BUN Creatinine Ratio 15.9 (10-20); Calcium 9.5 mg/dl (8.6-10.3); Creatinine Clr Calc Pharmacy 33.6 ml/min; Potassium 4.7 mmol/L (3.5-5.1)
[2024-04-22 07:59] VITALS: PULSE 81; RESP 20; TEMP 97.6; O2SAT 93
[2024-04-22] MEDS: VERAPAMIL HCL 120 MG TABCR PO SCH (08:32)
--- NOTE | 2024-04-22 13:01 | Hospitalist Progress Note ---
Date of Service April 22, 2024 Assessment & Plan (1) Compression fracture of L4 vertebra: (2) Age-related osteoporosis with current pathol fracture of vertebra: (3) Ambulatory dysfunction: (4) Acute hypokalemia: (5) Acute UTI (urinary tract infection): Plan Patient is an 84 yr female who has a significant past medical history of chronic hypoxemic respiratory failure, COPD, ILD, FRANCIS, PAF, HTN, HLD, hyperparathyroidism, CKD stage III, lumbar DDD, senile osteoporosis, generalized osteoarthritis, fibromyalgia, macular degeneration, IBD with history of large bowel resection and Hernandez's procedure, history of tobacco use who presents to ED secondary to back pain Age-related osteoporosis with pathological fracture of L4 vertebrae Acute back pain with radiculopathy Ambulatory dysfunction --Lumbar CT:Acute L4 compression fracture with 30% loss of vertebral body height. This fracture is new since CT of April 07, 2024. No retropulsion. No extension into the posterior elements. Old L2 and L3 compression fractures. Moderate multilevel facet arthrosis and degenerative disc disease within the lumbar spine. Suboptimal evaluation of the central canal and neural foramen given CT technique. No evidence for an infectious process within the lumbar spine although sensitivity is diminished given CT technique. -No history of fall, trauma --Stable fracture pattern per Ortho --May benefit from TLSO brace but given abdominal surgeries/colostomy difficult for fitting the brace Pain control, PT OT, fall precautions Appreciate orthopedics input May need outpatient pain management for possible injections Bowel regimen to prevent constipation SNF when accepted Abnormal urinalysis Possible UTI Urine culture not contributory Blood culture no growth to date Empirically on Zyvox, Rocephin based on prior cultures Will complete 5-day course of Rocephin, Zyvox today Acute metabolic encephalopathy Likely multifactorial--delirium, baclofen use Was recently started on baclofen per family On going blurry vision --MRI brain:No acute abnormality and in particular no evidence of acute infarct. Hold sedating medications Baclofen discontinued Reorient frequently Needs follow-up with ophthalmology as outpatient Mental status seem to be back to baseline Hypokalemia Monitor and replete electrolytes as needed Dehydration CKD-3 -chronic, stable IV fluids as needed Monitor renal function Chronic hypoxic respiratory failure on 3 L COPD FRANCIS noncompliant with CPAP Normal procalcitonin No signs of acute exacerbation continue home inhalers Continue supplemental oxygen to maintain saturations 88 to 92% PAF continue Xarelto, verapamil Chronic diastolic heart failure Monitor volume status Resume home diuretics IBD Diverticulitis Colostomy in place H/o colon resection in 2019 at [facility] in [place] Has colostomy bag in place, on mesalamine Continue bowel regimen to prevent constipation DVT Px: Xarelto CODE STATUS FULL CODE Disposition Rehab when accepted Case management to help with discharge planning Admission and Anticipated Discharge Date Admission Date: April 17, 2024 Subjective Patient is seen and examined at bedside Mental status seem to be back to baseline Back pain is controlled Had PT OT earlier today Denies any chest pain, dyspnea, abdominal pain, nausea, dizziness, dysuria, hematuria Plan to discharge to rehab facility when accepted Review of Systems Review of Systems: All systems reviewed & are unremarkable except as noted in Subjective Physical Exam Physical Exam: Physical Exam: Vitals signs as noted above General Appearance:Moderately built and nourished, Frail, elderly, no apparent distress Head: normocephalic, Atraumatic Eyes: normal inspection, EOMI Neck: supple, Trachea midline Respiratory/Chest: Decreased breath sounds, CTA, No accessory muscle use Cardiovascular: S1, S2, No murmur Abdomen/GI:Soft, Non tender, Bowel sounds present, +Ostomy Extremities/Musculoskeletal:normal inspection, Trace edema Neurologic/Psych:AAOX3, grossly no focal neurological deficits Skin: normal color, warm Results & Data Results & Data Vital Signs (Past 12 Hours) Vital Signs Temp Pulse Pulse Resp BP BP Pulse Ox 04/22/24 07:58 04/22/24 07:58 36.4 C 81 20 156/65 H 93 04/22/24 07:21 85 04/22/24 07:13 77 16 98 04/22/24 04:05 36.3 C L 75 18 150/76 H 98 04/22/24 01:01 74 O2 Del Method O2 Flow Rate 04/22/24 07:58 Nasal Cannula 3 04/22/24 07:58 Nasal Cannula 3 04/22/24 07:21 04/22/24 07:13 Nasal Cannula 2 04/22/24 04:05 Nasal Cannula 3 04/22/24 01:01 Laboratory Results Short CBC 04/22/24 Range/Units 06:07 WBC 8.76 (4.8-10.8) K/ul Hgb 10.5 L (12.0-16.0) g/dl Hct 35.4 L (37.0-47.0) % Plt Count 285 (130-400) K/uL BMP 04/22/24 06:07 Sodium 142 Potassium 4.7 Chloride 104 Carbon Dioxide 33 H BUN 17 Creatinine 1.07 Glucose 114 H Calcium 9.5
--- NOTE | 2024-04-22 13:24 | Discharge Summary ---
Date of Service April 22, 2024 Admission HPI Per Admitting Provider This is an 84-year-old female who has a significant past medical history of chronic hypoxemic respiratory failure, COPD, ILD, FRANCIS, PAF, HTN, HLD, hyperparathyroidism, CKD stage III, lumbar DDD, senile osteoporosis, generalized osteoarthritis, fibromyalgia, macular degeneration, IBD with history of large bowel resection and Hernandez's procedure, history of tobacco use who presents to ED secondary to back pain. Patient states her back pain started 2 weeks ago. She denies any trauma, fall or known injury. She reports pain is in her bilateral low back, left greater than right. She also has pain radiating down t he posterior aspect of her left leg to her ankle. She denies any numbness or tingling or bowel or bladder incontinence. Over the last 2 weeks her pain has been worsening to the point she is having difficulty walking. She has had no relief with [id number] Tylenol. She was seen in ED 2 weeks ago with reports of, "nothing wrong." Patient currently lives alone and does have caregivers equipment 2 to 3 days a week. She also reports urinary urgency. She has had poor intake over the last few days due to inability to ambulate. She denies fever, chills, sweats, lightheadedness, dizziness, chest pain, shortness breath at rest, nausea, vomiting or abdominal pain. She does have chronic shortness of breath in setting of COPD. She also has a chronic nonproductive cough that is at baseline. She uses nebulizers twice daily. She does have history of sleep apnea but is noncompliant with CPAP. She does use oxygen 3 L chronically. Patient was hemodynamically stable in ED. Lab work notable for hypokalemia at 2.5, elevated white blood cell count of 14.8 6K and abnormal urinalysis. Lumbar spine CT revealed L4 compression fracture of 30% without retropulsion. Admission Exam Per Admitting Provider Constitutional: WD/WN, vitals as above, pt in significant pain, sitting up in bed, pleasant, conversing easily Head: Normocephalic, Atraumatic Eyes: PERRL, conjunctivae normal, anicteric sclerae ENMT: external ear and nose normal, oropharynx normal Neck: trachea midline, no thyromegaly normal visual inspection Respiratory: normal respiratory effort, lungs clear to auscultation, no wheeze, rales, rhonchi. Normal insp/exp effort, no accessory muscle use Cardiovascular: RRR, no murmur, no edema Vessels: no JVD or carotid bruit Chest: normal inspection of chest Abdomen: normal bowel sounds, soft, nontender, no hepatosplenomegaly Musculoskeletal: no cyanosis or clubbing, MSK exam limited due to pain, unable to assess low back, will need to get pain under control Skin: no rashes, warm and dry normal turgor Neurologic: PERRL, EOMI, accommodation nl, no face palsy, no dysarthria CN's II-XI intact bilaterally and moves all extremities Psychiatric: A+Ox3, euthymic affect Lymphatic: no cervical or axillary lymphadenopathy :tyrese urine noted in canister Principal Diagnosis Age-related osteoporosis with pathological fracture of L4 vertebrae Acute back pain with radiculopathy Ambulatory dysfunction Chronic hypoxic respiratory failure on 3 L COPD RFANCIS noncompliant with CPAP Discharge Data Allergies Allergy/AdvReac Type Severity Reaction Status Date / Time amoxicillin Allergy Intermediate Rash Verified 04/17/24 09:59 cephalexin [From Keflex] Allergy Intermediate Rash Verified 04/17/24 09:59 cilostazol [From Pletal] Allergy Intermediate Rash Verified 04/17/24 09:47 ciprofloxacin [From Cipro] Allergy Intermediate Rash Verified 04/17/24 09:47 diltiazem Allergy Intermediate Rash Verified 04/17/24 09:47 felodipine Allergy Intermediate Rash Verified 04/17/24 09:47 meloxicam Allergy Intermediate Rash Verified 04/17/24 09:47 sulfamethoxazole Allergy Intermediate Rash Verified 04/17/24 09:47 [From Bactrim] trimethoprim [From Bactrim] Allergy Intermediate Rash Verified 04/17/24 09:47 Consultations 04/17/24 08:55 ED Decision to Admit Stat 04/17/24 09:39 Consult Orthopedic Spine Surgery Routine Procedures Performed Laboratory Results WBC 8.76 K/ul (4.8-10.8) 04/22/24 06:07 RBC 3.77 M/uL (4.20-5.40) L 04/22/24 06:07 Hgb 10.5 g/dl (12.0-16.0) L 04/22/24 06:07 Hct 35.4 % (37.0-47.0) L 04/22/24 06:07 MCV 93.9 fL (80.0-100.0) 04/22/24 06:07 MCH 27.9 pg (25.0-34.0) 04/22/24 06:07 MCHC 29.7 g/dL (32.0-36.0) L 04/22/24 06:07 RDW Std Deviation 45.2 fL (36.4-46.3) 04/22/24 06:07 RDW Coeff of Lynn 13.2 % (11.5-14.5) 04/22/24 06:07 Plt Count 285 K/uL (130-400) 04/22/24 06:07 MPV 9.5 fL (9.4-12.4) 04/22/24 06:07 Immature Gran % (Auto) 0.8 % 04/18/24 06:09 Neut % (Auto) 78.6 % 04/18/24 06:09 Lymph % (Auto) 9.0 % 04/18/24 06:09 Kidder % (Auto) 8.6 % 04/18/24 06:09 Eos % (Auto) 2.7 % 04/18/24 06:09 Baso % (Auto) 0.3 % 04/18/24 06:09 Neut # (Auto) 12.55 K/uL (1.40-6.50) H 04/18/24 06:09 Lymph # (Auto) 1.43 K/uL (1.20-3.40) 04/18/24 06:09 Kidder # (Auto) 1.37 K/uL (0.11-0.59) H 04/18/24 06:09 Eos # (Auto) 0.43 K/uL (0.00-0.50) 04/18/24 06:09 Baso # (Auto) 0.04 K/uL (0.00-0.20) 04/18/24 06:09 Immature Gran # (Auto) 0.13 K/uL (0.01-0.20) 04/18/24 06:09 VBG pH 7.36 (7.36-7.41) 04/20/24 23:29 VBG pCO2 61 mmHg (38-50) H 04/20/24 23:29 VBG pO2 33 mmHg 04/20/24 23:29 VBG HCO3 35 mmol/L 04/20/24 23:29 VBG O2 Saturation < 60.0 % 04/20/24 23:29 VBG Base Excess 7.0 mEq/L 04/20/24 23:29 Sodium 142 mmol/L (136-145) 04/22/24 06:07 Potassium 4.7 mmol/L (3.5-5.1) 04/22/24 06:07 Chloride 104 mmol/L (98-107) 04/22/24 06:07 Carbon Dioxide 33 mmol/L (21-32) H 04/22/24 06:07 Anion Gap 5 (3-11) 04/22/24 06:07 BUN 17 mg/dl (6-23) 04/22/24 06:07 Creatinine 1.07 mg/dl (0.6-1.2) 04/22/24 06:07 Est Cr Clr Drug Dosing 33.6 ml/min 04/22/24 06:07 eGFR 51.86 04/22/24 06:07 BUN/Creatinine Ratio 15.9 (10-20) 04/22/24 06:07 Glucose 114 mg/dl (70-99(Fasting)) H 04/22/24 06:07 POC Glucose 121 mg/dl (70-99) H 04/20/24 22:50 Calcium 9.5 mg/dl (8.6-10.3) 04/22/24 06:07 Magnesium 2.0 mg/dl (1.7-2.4) 04/21/24 06:10 Total Bilirubin 0.3 mg/dl (0.2-1.0) 04/17/24 06:30 AST 10 U/L (13-39) L 04/17/24 06:30 ALT 4 U/L (7-52) L 04/17/24 06:30 Alkaline Phosphatase 91 U/L (34-104) 04/17/24 06:30 Total Protein 7.4 gm/dl (6.0-8.3) 04/17/24 06:30 Albumin 3.5 gm/dl (3.4-5.0) 04/17/24 06:30 Globulin 3.9 gm/dl (2.5-4.0) 04/17/24 06:30 Albumin/Globulin Ratio 0.9 (0.9-2) 10/16/24 06:30 Procalcitonin 0.04 ng/ml (0-0.5) 04/17/24 06:30 Urine Color [place] 04/17/24 08:02 Urine Appearance Turbid (Clear) A 04/17/24 08:02 Urine pH 6.0 (4.5-7.5) 04/17/24 08:02 Ur Specific [place] 1.014 (1.000-1.030) 04/17/24 08:02 Urine Protein 2+ (Negative) H 04/17/24 08:02 Urine Glucose (UA) Negative (Negative) 04/17/24 08:02 Urine Ketones Trace (Negative) H 04/17/24 08:02 Urine Blood 3+ (Negative) H 04/17/24 08:02 Urine Nitrite Negative (Negative) 04/17/24 08:02 Urine Bilirubin Negative (Negative) 04/17/24 08:02 Urine Urobilinogen Negative (Negative) 04/17/24 08:02 Ur Leukocyte Esterase 3+ (Negative) H 04/17/24 08:02 Urine WBC (Auto) >50 /hpf (0-5) H 04/17/24 08:02 Urine RBC (Auto) >20 /hpf (0-2) H 04/17/24 08:02 U Hyaline Cast (Auto) 0-2 /lpf (0-2) 04/17/24 08:02 U Epithel Cells (Auto) 0-2 /hpf (0-2) 04/17/24 08:02 Urine Bacteria (Auto) 4+ (None Seen) H 04/17/24 08:02 Impressions Abdomen/Pelvis CT 04/17/24 07:14 CT OF THE ABDOMEN AND PELVIS WITHOUT CONTRAST CLINICAL HISTORY: Bilateral flank pain. COMPARISON STUDY: CT of the abdomen and pelvis April 07, 2024. TECHNIQUE: Axial images of the abdomen and pelvis were obtained without IV contrast. Images were reviewed in the axial, sagittal, and coronal planes. Automated exposure control was utilized for the study. A dose lowering technique was utilized adhering to the principles of ALARA. FINDINGS: There is been interval development of bilateral lower lobe airspace opacity, greater on the left, since CT of April 07, 2024. Multiple left renal calculi measure up to 1.3 cm. There are no ureteral calculi. Calcifications within the right renal sinus are likely vascular in etiology. Mild left hydronephrosis is unchanged. This has been shown on multiple prior studies. There is gas within the bladder. Evaluation of the remainder of the abdomen and pelvis is suboptimal on this unenhanced exam. Liver, spleen, adrenal glands and pancreas are unremarkable. 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 There is no resultant bowel obstruction. A large amount of stool within the rectum is again noted. Prominent perirectal lymph nodes are unchanged. No fluid collections are present. Old thoracolumbar spine compression fractures are present. L4 compression fracture is new since CT of April 07, 2024 with 30% loss of vertebral body height. There is no retropulsion or extension into the posterior elements. No additional acute fractures are identified. IMPRESSION: 1. Acute L4 compression fracture with 30% loss of vertebral body height. No retropulsion. Multiple old thoracolumbar spine compression fractures. 2. 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 No resultant bowel obstruction. 3. Left nephrolithiasis. No ureteral calculi. Mild left hydronephrosis, similar to prior exams. This could reflect a UPJ type obstruction. 4. Large amount stool within the rectum, similar to prior exam. Stable prominent indeterminate perirectal lymph nodes. These can be assessed on follow-up exams. ACT 112: Negative or not required by law. Electronically signed by: Oh Townsend M.D. 04/17/2024 8:36 AM Lumbar Spine X-Ray 04/17/24 07:14 XR lumbar spine 2-3V CLINICAL HISTORY: lumbar back pain COMPARISON STUDY: Lumbar spine radiographs May 10, 2019. Lumbar spine CT November 22, 2023. FINDINGS: Mild lumbar spine levoscoliosis is unchanged. Mild loss of height of the L4 vertebral body is new since CT of April 07, 2024. This represents an acute compression fracture. Additional old lower thoracic and lumbar spine compression fractures are unchanged since that exam. Moderate multilevel degenerative disc disease and severe facet arthrosis is present. IMPRESSION: 1. Interval development of mild L4 compression fracture with 30% loss of vertebral body height since CT of April 07, 2024. This represents an acute fracture. 2. Multiple old lower thoracic and lumbar spine compression fractures. 3. Moderate degenerative disc disease and severe facet arthrosis within the lumbar spine. 4. Mild lumbar spine levoscoliosis. ACT 112: Negative or not required by law. Electronically signed by: Oh Townsend M.D. 04/17/2024 8:44 AM Chest X-Ray 04/17/24 08:43 XR chest 1V portable CLINICAL HISTORY: Hx CHF COMPARISON STUDY: Chest radiograph November 27, 2023. Chest CT December 01, 2023. FINDINGS: There is no pneumothorax or pleural effusion. Cardiomegaly is unchanged. There is pulmonary vascular congestion. Underlying emphysema is present. Left basilar opacity is present. There is also minimal right basilar opacity. IMPRESSION: 1. Cardiomegaly with pulmonary vascular congestion. 2. Bibasilar opacities, greater on the left. The findings could reflect atelectasis or consolidation. 3. Emphysema. ACT 112: Negative or not required by law. Electronically signed by: Oh Townsend M.D. 04/17/2024 9:[address] 04/17/24 10:58 CT OF THE LUMBAR SPINE CLINICAL HISTORY: back pain, elevated WBC COMPARISON STUDY: Lumbar spine CT November 22, 2023. CT of the abdomen and pelvis April 07, 2024. TECHNIQUE: Helical axial images of the lumbar spine were obtained. Sagittal and coronal reconstructions were viewed. Automated exposure control was utilized for the study. A dose lowering technique was utilized adhering to the principles of ALARA. FINDINGS: Please note that the CT of the abdomen and pelvis will be reported separately. For purposes of numbering on this exam, the L5-S1 disc space is assigned to axial image 115 of 157. There is mild lumbar spine levoscoliosis. 30% loss of height of the L4 vertebral body is new since abdominal CT of April 07, 2024. There is no retropulsion. No extension into the posterior elements is noted. Subtle fracture lines are best depicted on the coronal reformatted. L2 and L3 compression fractures are unchanged since that exam. These are chronic. Moderate multilevel facet arthrosis is present. There is also moderate endplate osteophytosis and mild to moderate disc space narrowing within the lumbar spine. Sacroiliac joints are intact. The central canal and neural foramen are suboptimally assessed given CT technique. IMPRESSION: 1. Acute L4 compression fracture with 30% loss of vertebral body height. This fracture is new since CT of April 07, 2024. No retropulsion. No extension into the posterior elements. 2. Old L2 and L3 compression fractures. 3. Moderate multilevel facet arthrosis and degenerative disc disease within the lumbar spine. Suboptimal evaluation of the central canal and neural foramen given CT technique. 4. No evidence for an infectious process within the lumbar spine although sensitivity is diminished given CT technique. ACT 112: Negative or not required by law. Electronically signed by: Oh Townsend M.D. 04/17/2024 11:[address] 04/20/24 22:45 Exam(s): CT HEAD Without Contrast EXAM: CT Head Without Intravenous Contrast CLINICAL HISTORY: Reason for exam: ams, noac. TECHNIQUE: Axial computed tomography images of the head/brain without intravenous contrast. CTDI is 37.08 mGy and DLP is 547.75 mGy-cm. Automated exposure control was utilized for the study. A dose lowering technique was utilized adhering to the principles of ALARA. COMPARISON: No relevant prior studies available. FINDINGS: Brain: Age-related cerebral volume loss. Periventricular and subcortical white matter hypoattenuation, consistent with chronic microangiopathy. No acute intracranial hemorrhage. No midline shift or mass effect. Ventricles: Unremarkable. No ventriculomegaly. Bones/joints: Unremarkable. No acute fracture. Soft tissues: Unremarkable. Sinuses: Unremarkable as visualized. No acute sinusitis. Mastoid air cells: Unremarkable as visualized. No mastoid effusion. IMPRESSION: No acute intracranial hemorrhage. No midline shift or mass effect. Electronically signed by: Tato Tapia MD 04/21/24 03:22 AM Brain MRI 04/21/24 10:53 MR brain wo/w con CLINICAL HISTORY: Blurry vision 2 weeks, confusion TECHNIQUE: Multiplanar and multisequence MR images of the brain were obtained prior to and following administration of gadolinium contrast. Comparison: Comparison is made to MRI brain 12/09/2020 FINDINGS: No abnormal restricted diffusion is identified. Foci of T2 and FLAIR hyperin tensity are noted in the paraventricular areas consistent with chronic small vessel ischemic disease. Ex vacuo ventriculomegaly and sulcal enlargement is noted compatible with diffuse volume loss. Focal encephalomalacia in the left lentiform nucleus likely represents a prior infarct. No mass or abnormal enhancement is seen. There is no mass effect or midline shift. There is no evidence of acute intraparenchymal hemorrhage. No extra axial fluid collections are seen. The corpus callosum, pituitary gland, and cerebellar tonsils appear grossly unremarkable. Flow voids of the major intracranial arterial vessels are identified. The imaged portions of the paranasal sinuses, mastoid air cells, and orbits are unremarkable. IMPRESSION: No acute abnormality and in particular no evidence of acute infarct. ACT 112: Negative or not required by law. Electronically signed by: Yoel Elena M.D. 04/21/2024 12:24 PM Ordered Studies 04/17/24 07:14 CT abd pelvis wo con Stat 04/17/24 10:58 CT lumbar spine wo con Urgent 04/20/24 22:45 CT head/brain wo con Stat 04/21/24 10:53 MRI Brain [MR brain wo/w con] Routine Hospital Course (1) Compression fracture of L4 vertebra: (2) Age-related osteoporosis with current pathol fracture of vertebra: (3) Ambulatory dysfunction: (4) Acute hypokalemia: (5) Acute UTI (urinary tract infection): Plan Patient is an 84 yr female who has a significant past medical history of chronic hypoxemic respiratory failure, COPD, ILD, FRANCIS, PAF, HTN, HLD, hyperparathyroidism, CKD stage III, lumbar DDD, senile osteoporosis, generalized osteoarthritis, fibromyalgia, macular degeneration, IBD with history of large bowel resection and Hernandez's procedure, history of tobacco use who presents to ED secondary to back pain Age-related osteoporosis with pathological fracture of L4 vertebrae Acute back pain with radiculopathy Ambulatory dysfunction --Lumbar CT:Acute L4 compression fracture with 30% loss of vertebral body height. This fracture is new since CT of April 07, 2024. No retropulsion. No extension into the posterior elements. Old L2 and L3 compression fractures. Moderate multilevel facet arthrosis and degenerative disc disease within the lumbar spine. Suboptimal evaluation of the central canal and neural foramen given CT technique. No evidence for an infectious process within the lumbar spine although sensitivity is diminished given CT technique. -No history of fall, trauma --Stable fracture pattern per Ortho --May benefit from TLSO brace but given abdominal surgeries/colostomy difficult for fitting the brace Pain control, PT OT, fall precautions Appreciate orthopedics input May need outpatient pain management for possible injections Bowel regimen to prevent constipation SNF when accepted Abnormal urinalysis Possible UTI Urine culture not contributory Blood culture no growth to date Empirically on Zyvox, Rocephin based on prior cultures Will complete 5-day course of Rocephin, Zyvox today Acute metabolic encephalopathy Likely multifactorial--delirium, baclofen use Was recently started on baclofen per family On going blurry vision --MRI brain:No acute abnormality and in particular no evidence of acute infarct. Hold sedating medications Baclofen discontinued Reorient frequently Needs follow-up with ophthalmology as outpatient Mental status seem to be back to baseline Hypokalemia Monitor and replete electrolytes as needed Dehydration CKD-3 -chronic, stable IV fluids as needed Monitor renal function Chronic hypoxic respiratory failure on 3 L COPD FRANCIS noncompliant with CPAP Normal procalcitonin No signs of acute exacerbation continue home inhalers Continue supplemental oxygen to maintain saturations 88 to 92% PAF continue Xarelto, verapamil Chronic diastolic heart failure Monitor volume status Resume home diuretics IBD Diverticulitis Colostomy in place H/o colon resection in 2019 at [facility] in [place] Has colostomy bag in place, on mesalamine Continue bowel regimen to prevent constipation DVT Px: Xarelto CODE STATUS FULL CODE Disposition Rehab when accepted Case management to help with discharge planning Total Time Total Time Spent Total Time Spent (In Minutes): 58 minutes Discharge Plan Discharge Items Patient Disposition: Transfer [facility] Reason For Visit: COMPRESSION FX, UTI, AMBULATORY DYSFUNCTION Discharge Diagnosis: Age-related osteoporosis with pathological fracture of L4 vertebrae Acute back pain with radiculopathy Ambulatory dysfunction Chronic hypoxic respiratory failure on 3 L COPD FRANCIS noncompliant with CPAP Activity: Per Instructions section Exercise/Sports: Gradually increase as tolerated Weightbearing Comment: No lifting greater than 10 pounds Non-emergency contact: Primary Care Provider and Surgeon Call non-emergency contact if: you have any medication questions, your symptoms worsen, your pain is concerning for you and you have a fever Follow-up/Referrals: Tameka Mao MD [Primary Care Provider] - Diet: Heart Healthy Diet Texture: Dental soft (bite-sized) Addtl Attending Provider Instructions: Follow-up with your primary care physician Dr. Sergio Cai in 1 week as advised Follow-up with your orthopedic surgeon in 4 to 6 weeks -- Pending Studies at Discharge: Yes Studies:: Blood culture Stand-Alone Forms: My [employer] Skilled Items Patient informed of condition?: Yes DNR: No Discharge Level of Care: Skilled Communicable Disease: No Discharge Prognosis: Stable Lines: None Urinary Catheter: No Medications and DC Order Prescriptions: New sennosides-docusate sodium [Senokot-S] 8.6-50 mg Tablet 1 tab PO BID PRN (Reason: constipation) Qty: 30 0RF polyethylene glycol 3350 [Miralax] 17 gram Powder In Packet 17 g PO DAILY PRN (Reason: constipation) Qty: 30 0RF lidocaine 5 % Adhesive Patch,Medicated 1 patch transdermal QAM Qty: 0 0RF Continued Anoro Ellipta 62.5-25 mcg/actuation blister with device 1 inh INH QAM Qty: 60 8RF Rx Instructions: Last filled 02/2024 x30 day supply budesonide 0.25 mg/2 mL suspension for nebulization 0.25 mg inhalation BID Qty: 60 8RF Rx Instructions: Last filled 02/2024 x30 day supply (DME) Auto Titrating CPAP Misc See Rx Instructions .MEDSUPPLY Qty: 1 0RF Rx Instructions: Auto PAP with 8-16 cm H20. Lifetime usage. G47.3 (DME) CPAP Supplies Misc See Rx Instructions .MEDSUPPLY Qty: 1 0RF Rx Instructions: CPAP supplies, mask, headgear, filters, tubing, water chamber. G47.33 guaifenesin [Mucinex] 600 mg tablet extended release 12hr 600 mg PO BID Qty: 60 3RF Rx Instructions: Pt unsure of OTC meds at this date/time. (DME) Portable Oxygen Misc See Rx Instructions .MEDSUPPLY Qty: 1 0RF Rx Instructions: Oxygen 2 liters continuous with portable concentrator. ASHLEY 99 ferrous sulfate 325 mg (65 mg iron) tablet 325 mg PO QAM calcium carbonate-vitamin D3 [Calcium 500 + D] 500 mg(1,250mg) -400 unit Tablet 1 tab PO QPM Rx Instructions: Pt unsure of OTC meds at this date/time. PreserVision AREDS-2 [phone] az-[id number]-[id number]-mg Capsule 1 tab PO QAM Rx Instructions: Pt unsure of OTC meds at this date/time. mesalamine 1.2 gram tablet,delayed release (DR/EC) 3.6 g PO QAM cyclosporine [Restasis] 0.05 % dropperette 1 drp OPB BID ascorbic acid (vitamin C) [Vitamin C] 500 mg Tablet 500 mg PO QAM Xarelto 15 mg tablet 15 mg PO QPM Rx Instructions: PER [facility] MED LIST "ON HOLD 09/19/23" acetaminophen [Tylenol] 325 mg Tablet 325 mg PO Q6H PRN (Reason: PAIN/FEVER) Rx Instructions: Pt unsure of OTC meds at this date/time. solifenacin 5 mg tablet 5 mg PO QAM omega-3 fatty acids 500 mg Capsule 500 mg PO QAM Rx Instructions: Pt unsure of OTC meds at this date/time. ipratropium-albuterol 0.5 mg-3 mg(2.5 mg base)/3 mL solution for nebulization 3 ml INHALATION Q4H PRN (Reason: Wheezing) furosemide 20 mg tablet 20 mg PO QAM verapamil 120 mg tablet extended release 120 mg PO QAM Prolia 60 mg/mL Syringe 60 mg SUBCUT UD Rx Instructions: Every 6 months, Unable to verify med with patient/pharmacy at this date/time. pantoprazole 40 mg Tablet,Delayed Release (Dr/Ec) 40 mg PO BID Qty: 60 0RF albuterol sulfate 90 mcg/actuation HFA aerosol inhaler 2 puff INHALATION UD PRN (Reason: SOB/Wheezing) Discontinued baclofen 10 mg tablet 10 mg PO DAILY Rx Instructions: Start Date 04/16/24 x5 day supply Discharge Orders: Discharge Order (Routine); Ordered 04/22/24 Ordered By: Skip Horta Admission Data Admit Date/Time: 04/17/24 09:39 Attending Provider: Skip Horta Admit Provider: Shirley Gaston Primary Care Provider: Tameka Mao Other Providers: Mauricio Blake; Skip Horta; [facility]
[2024-04-22 13:31] VITALS: BP 150/76
== END 2024-04-22 13:59 | DRG 542 ==
LOC: ED 06:24 → 2N 09:39 → SUATTDRO 09:39 → 2N 11:15